=== PATIENT | male | born 1945 | race Caucasian/White ===

== ENCOUNTER 2017-12-08 10:30 | Inpatient (IN) | payer OTHER, MEDICARE ==
[~2017-12-08] VITALS: Ht 190.5 cm; Wt 90.7 kg
[2017-12-08] VITALS (13 sets, daily range): BP systolic 166–193; BP diastolic 79–102; PULSE 84–101; RESP 18–32; TEMP 97.5–97.8; O2SAT 87–100
[~2017-12-08 10:30] MED LIST: AMLO10 PO; CALC-179 PO; CALC0.25 PO; LYCOCAP2 PO; NOVO7030P2 SQ; PRAV40 PO; TAB-TAB PO
[2017-12-08] MEDS ORDERED: ALBUAER3 INH (10:54)
[2017-12-08] MEDS ORDERED: SODIUM CHLORIDE 0.9% FLUSH 10 ML FLUSH IVF PRN (11:15)
[2017-12-08] MEDS ORDERED: ADENOSINE IV SOLN 3 MG/ML 2 ML VIAL ONE (11:27)
[2017-12-08] MEDS ORDERED: ADENOSINE IV SOLN 3 MG/ML 2 ML VIAL IV PUSH ONE ×2 (11:30→11:45)
--- NOTE | 2017-12-08 11:31 | RADRPT ---
EXAM DATE: 12/08/2017 11:29 AM EDT AGE/SEX: 72 years / Male INDICATIONS: Short of breath. CLINICAL DATA: This is the patient's initial encounter. Patient reports that signs and symptoms have been present for 1 day and indicates a pain score of 0/10. MEDICAL/SURGICAL HISTORY: Chronic obstructive pulmonary disease. 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 had chest tube to drain lung in 2008 COMPARISON: No prior exams available for comparison. FINDINGS: Cardiomegaly with moderate interstitial edema. Parental changes right base that could be inflammatory or chronic. No pneumothorax no pleural effusion. CONCLUSION: Cardiomegaly with moderate congestive failure. Parenchymal changes right base of uncertain significan ce. Electronically signed by: George Kumar MD 12/08/2017 11:30 AM EDT
[2017-12-08 11:41] LABS: BASOPHIL # 0.2 TH/MM3 (0-0.2); BASOPHIL % 2.2 % (0.0-2.0); EOSINOPHIL % 0.6 % (0.0-4.0); LYMPH % 16.3 % (9.0-44.0); LYMPHOCYTE # 1.3 TH/MM3 (1.0-4.8); MEAN CELL VOLUME 86.3 FL (80.0-100.0); MEAN CORPUSCULAR HEMOGLOBIN 28.8 PG (27.0-34.0); MEAN CORPUSCULAR HGB CONC 33.3 % (32.0-36.0); MONO % 4.2 % (0.0-8.0); MONOCYTE # 0.3 TH/MM3 (0-0.9); NEUT % 76.7 % (16.0-70.0); PLATELET COUNT 221 TH/MM3 (150-450); RED BLOOD COUNT 4.52 MIL/MM3 (4.50-5.90); RED CELL DISTRIBUTION WIDTH 14.3 % (11.6-17.2); WHITE BLOOD COUNT 7.8 TH/MM3 (4.0-11.0)
[2017-12-08] MEDS ORDERED: METOPROLOL TARTRATE 5 MG/5 ML VIAL IV PUSH ONE (11:45)
[2017-12-08 11:51] LABS: INTERNATIONAL NORMALIZED RATIO 1.2 RATIO
[2017-12-08 12:14] LABS: ALBUMIN 2.8 GM/DL (3.4-5.0); ALT (GPT) 16 U/L (12-78); AST (GOT) 18 U/L (15-37); BLOOD UREA NITROGEN 55 MG/DL (7-18); CALCIUM 8.6 MG/DL (8.5-10.1); CHLORIDE 111 MEQ/L (98-107); CREATININE 7.76 MG/DL (0.60-1.30); GLOMERULAR FILTRATION RATE 7 ML/MIN (>89); GLUCOSE,RANDOM 138 MG/DL (74-106); SODIUM (NA) 142 MEQ/L (136-145)
[2017-12-08 12:18] LABS: ALKALINE PHOSPHATASE 121 U/L (45-117); TOTAL BILIRUBIN ADULT 0.6 MG/DL (0.2-1.0); TOTAL PROTEIN 7.2 GM/DL (6.4-8.2); TROPONIN I 0.03 NG/ML (0.02-0.05)
--- NOTE | 2017-12-08 12:50 | PD ---
HPI Chief Complaint: Respiratory Symptoms Time Seen by Provider: 11:05 Travel History International Travel<30 days: No Contact w/Intl Traveler<30days: No Traveled to known affect area: No History of Present Illness HPI 72-year-old male with history of COPD, renal failure, diabetes mellitus, who presented today with complaints of shortness of breath and near syncope. The patient was [facility] and was sent here for further evaluation. According to him that he has been trying to work him up for renal failure and he will likely need dialysis however they have had difficulty up to this point. The patient denies any fevers, chills. He states that at times he feels his heart racing and nearly passes out. The patient denies any chest pain , chest pressure. There are no other complaints at time of my examination. PFSH Past Medical History Hx Anticoagulant Therapy: Yes Arthritis: Yes Asthma: No Autoimmune Disease: No Blood Disorders: No Anxiety: Yes Depression: Yes Cancer: Yes (SKIN CA.-FACE & ARMS) Cardiovascular Problems: Yes High Cholesterol: Yes Chemotherapy: No Congestive Heart Failure: No COPD: Yes Cerebrovascular Accident: No Diabetes: Yes Patient Takes Glucophage: No Diminished Hearing: No Endocrine: Yes Gastrointestinal Disorders: Yes Genitourinary: Yes (HEMATURIA) Hypertension: Yes Immune Disorder: No Kidney Stones: Yes Musculoskeletal: Yes Neurologic: Yes Psychiatric: Yes Reproductive: No Respiratory: Yes Migraines: No Radiation Therapy: No Renal Failure: Yes Seizures: No Thyroid Disease: No Past Surgical History Genitourinary Surgery: Yes (RIGHT NEPHROLITHOTRIPSY) Other Surgery: Yes (L KNEE SURGERY) Social History Alcohol Use: No Tobacco Use: No Substance Use: No Allergies-Medications (Allergen,Severity, Reaction): Coded Allergies: No Known Allergies (Verified Allergy, Unknown, 12/08/17) Reported Meds & Prescriptions Reported Meds & Active Scripts Active Reported Refresh Optive Advanced Opth Drops (Ztlcimasmpiongxwa-Dqqcvcnks-Exgkxifuwqb 80) 0.5-1-0.5% Soln 1-2 Drop EACH EYE DAILY PRN Preservision Areds (Multiple Vitamins W/ Minerals) 1 Tab 1 Tab PO DAILY Aspirin 81 Mg Chew 81 Mg CHEW DAILY Furosemide 20 Mg Tab 20 Mg PO DIRECTED Amlodipine (Amlodipine Besylate) 10 Mg Tab 10 Mg PO DAILY Ergocalciferol 50,000 Unit Cap 50,000 Units PO Q7D Atorvastatin (Atorvastatin Calcium) 80 Mg Tab 80 Mg PO HS Proventil Hfa 6.7 GM Inh (Albuterol Sulfate) 90 Mcg/Act Aer 2 Puff INH Q4-6H PRN Symbicort Inh (Budesonide/Formoterol Fumarate) 160-4.5 Mcg/Act Aero 2 Puff INH Q12HR Hydralazine HCl 25 Mg Tablet 25 Mg PO BID Proair Hfa 8.5 GM Inh (Albuterol Sulfate) 90 Mcg/Act Aer 2 Puff INH Q4-6H PRN 108 mcg/actuation Review of Systems Except as stated in HPI: all other systems reviewed are Neg General / Constitutional: No: Fever, Chills HENT: Positive: Lightheadedness, No: Headaches, Neck Pain Cardiovascular: Positive: Palpitations, Tachycardia, No: Chest Pain or Discomfort Respiratory: Positive: Shortness of Breath, No: Cough Gastrointestinal: No: Nausea, Vomiting, Abdominal Pain Genitourinary: No: Dysuria, Decreased Urinary Output (Denies) Musculoskeletal: Positive: Weakness, No: Pain Neurologic: Positive: Weakness, Dizziness, No: Headache Psychiatric: No: Substance Abuse Physical Exam Narrative GENERAL: Well-developed well-nourished male in no acute respiratory distress SKIN: Focused skin assessment warm/dry. HEAD: Atraumatic. Normocephalic. EYES: Pupils equal and round. No scleral icterus. No injection or drainage. ENT: No nasal bleeding or discharge. Mucous membranes pink and moist. NECK: Trachea midline. Supple. CARDIOVASCULAR: Regular rate and rhythm. No murmur appreciated. RESPIRATORY: Mild accessory muscle use. GASTROINTESTINAL: Abdomen soft, non-tender, nondistended. No rebound or guarding. MUSCULOSKELETAL: No obvious deformities. No clubbing. No cyanosis. 1+ edema in the pretibial areas. NEUROLOGICAL: Awake and alert. No obvious cranial nerve deficits. Motor grossly within normal limits. Normal speech. Data Data Last Documented VS Vital Signs Date Time Temp Pulse Resp B/P (MAP) Pulse Ox O2 Delivery O2 Flow Rate FiO2 12/08/17 11:50 87 18 166/79 (108) 95 Nasal Cannula 4.00 12/08/17 10:35 97.8 Orders Orders Complete Blood Count With Diff (12/08/17 11:09) Comprehensive Metabolic Panel (12/08/17 11:09) B-Type Natriuretic Peptide (12/08/17 11:09) Act Partial Throm Time (Ptt) (12/08/17 11:09) Prothrombin Time / Inr (Pt) (12/08/17 11:09) Ckmb (Isoenzyme) Profile (12/08/17 11:09) Troponin I (12/08/17 11:09) Urinalysis - C+S If Indicated (12/08/17 11:09) Iv Access Insert/Monitor (12/08/17 11:09) Ecg Monitoring (12/08/17 11:09) Oximetry (12/08/17 11:09) Oxygen Administration (12/08/17 11:09) Chest, Single Ap (12/08/17 11:09) Sodium Chloride 0.9% Flush (Ns Flush) (12/08/17 11:15) Electrocardiogram (12/08/17 ) Adenosine Inj (Adenocard Inj) (12/08/17 11:27) Adenosine Inj (Adenocard Inj) (12/08/17 11:30) Adenosine Inj (Adenocard Inj) (12/08/17 11:45) Metoprolol Tartrate Inj (Lopressor Inj) (12/08/17 11:45) CKMB (12/08/17 11:20) CKMB% (12/08/17 11:20) Admit Order (Ed Use Only) (12/08/17 13:17) Labs Laboratory Tests Test 12/08/17 11:20 12/08/17 12:35 White Blood Count 7.8 TH/MM3 Red Blood Count 4.52 MIL/MM3 Hemoglobin 13.0 GM/DL Hematocrit 39.0 % Mean Corpuscular Volume 86.3 FL Mean Corpuscular Hemoglobin 28.8 PG Mean Corpuscular Hemoglobin Concent 33.3 % Red Cell Distribution Width 14.3 % Platelet Count 221 TH/MM3 Mean Platelet Volume 9.0 FL Neutrophils (%) (Auto) 76.7 % Lymphocytes (%) (Auto) 16.3 % Monocytes (%) (Auto) 4.2 % Eosinophils (%) (Auto) 0.6 % Basophils (%) (Auto) 2.2 % Neutrophils # (Auto) 6.0 TH/MM3 Lymphocytes # (Auto) 1.3 TH/MM3 Monocytes # (Auto) 0.3 TH/MM3 Eosinophils # (Auto) 0.0 TH/MM3 Basophils # (Auto) 0.2 TH/MM3 CBC Comment DIFF FINAL Differential Comment Prothrombin Time 12.0 SEC Prothromb Time International Ratio 1.2 RATIO Activated Partial Thromboplast Time 28.2 SEC Blood Urea Nitrogen 55 MG/DL Creatinine 7.76 MG/DL Random Glucose 138 MG/DL Total Protein 7.2 GM/DL Albumin 2.8 GM/DL Calcium Level 8.6 MG/DL Alkaline Phosphatase 121 U/L Aspartate Amino Transf (AST/SGOT) 18 U/L Alanine Aminotransferase (ALT/SGPT) 16 U/L Total Bilirubin 0.6 MG/DL Sodium Level 142 MEQ/L Potassium Level 5.1 MEQ/L Chloride Level 111 MEQ/L Carbon Dioxide Level 22.0 MEQ/L Anion Gap 9 MEQ/L Estimat Glomerular Filtration Rate 7 ML/MIN Total Creatine Kinase 209 U/L Creatine Kinase MB 3.5 NG/ML Troponin I 0.03 NG/ML B-Type Natriuretic Peptide 710 PG/ML Urine Color LIGHT-YELLOW Urine Turbidity CLEAR Urine pH 7.0 Urine Specific [place] 1.010 Urine Protein 300 mg/dL Urine Glucose (UA) 150 mg/dL Urine Ketones NEG mg/dL Urine Occult Blood SMALL Urine Nitrite NEG Urine Bilirubin NEG Urine Urobilinogen LESS THAN 2.0 MG/DL Urine Leukocyte Esterase NEG Urine RBC 1 /hpf Urine WBC 1 /hpf Microscopic Urinalysis Comment CULT NOT INDICATED MDM Medical Decision Making Medical Screen Exam Complete: Yes Emergency Medical Condition: Yes Differential Diagnosis CHF versus pneumonia versus renal failure versus metabolic derangement Narrative Course 9-year-old male sent from the [facility] for evaluation of his renal failure and shortness of breath. Patient has moderate CHF noted on his chest x-ray. Patient also has evidence of end-stage renal disease. He had an episode of SVT. He was given 6 mg of Adenocard followed by 12 mg of Adenocard with no results or resolution of the SVT. He was then given Lopressor 5 mg 1 dose. He did convert to normal sinus rhythm. The patient will be admitted to the hospital. Case was discussed with Dr. Andrea Wilcox who agrees with the admission. Diagnosis Primary Impression: Congestive heart failure Additional Impressions: Worsening renal failure Diabetes mellitus Supraventricular tachycardia Admitting Information Admitting Physician Requests: Admit Werner Wilson MD Dec 08, 2017 12:50
[2017-12-08 13:00] LABS: BILIRUBIN, URINE NEG (NEG); BLOOD, URINE SMALL (NEG); GLUCOSE,URINE 150 mg/dL (NEG); KETONE, URINE NEG (NEG); NITRITE,URINE NEG (NEG); URINE COLOR LIGHT-YELLOW (YELLW/STRAW); URINE LEUKOCYTE ESTERASE NEG (NEG)
[2017-12-08] MEDS ORDERED: FURO20TA PO (13:09)
[2017-12-08] MEDS ORDERED: ATOR80TA45 PO (13:09)
[2017-12-08] MEDS ORDERED: SYMB160A INH (13:09)
[2017-12-08] MEDS ORDERED: HYDR-3799 PO (13:09)
[2017-12-08] MEDS ORDERED: OCUVTAB4 PO (13:09)
[2017-12-08] MEDS ORDERED: ALBU6.7H INH (13:09)
[2017-12-08] MEDS ORDERED: VITA500012 PO (13:09)
[2017-12-08] MEDS ORDERED: AMLO10TA2 PO (13:09)
[2017-12-08] MEDS ORDERED: ASPI-516 CHEW (13:09)
[2017-12-08] MEDS ORDERED: CARBSOL EACH EYE (13:09)
[2017-12-08] MEDS ORDERED: BISACODYL 10 MG SUPP RECTAL PRN (13:30)
[2017-12-08] MEDS ORDERED: NALOXONE HCL 0.4 MG/ML AMP IV PUSH PRN (13:30)
[2017-12-08] MEDS ORDERED: cloNIDine HCL 0.1 MG TAB PO PRN ×2 (13:30→16:30)
[2017-12-08] MEDS ORDERED: DEXTROSE 50% IN WATER 50 ML VIAL(D50) IV PUSH PRN (13:30)
[2017-12-08] MEDS ORDERED: ACETAMINOPHEN 325 MG TAB PO PRN ×2 (13:30→16:30)
[2017-12-08] MEDS ORDERED: SODIUM CHLORIDE 0.9% FLUSH 10 ML FLUSH IV FLUSH PRN ×2 (13:30→16:30)
[2017-12-08] MEDS ORDERED: GLUCAGON 1 MG/ML VIAL OTHER PRN (13:30)
[2017-12-08] MEDS ORDERED: SODIUM CHLOR 0.9% 1000 ML INJ 1,000 ML IV ONE (13:30)
--- NOTE | 2017-12-08 14:00 | HHI.HP ---
HPI Service [facility] Primary Care Physician [facility] Admission Diagnosis end stage renal disease, chf, svt Diagnoses: Chief Complaint: Shortness of breath. Near syncope. Travel History International Travel<30 Days: No Contact w/Intl Traveler <30 Da: No Traveled to Known Affected Are: No History of Present Illness 9-year-old male with a medical history significant for diabetes, chronic kidney disease, hypertension, noncompliance sent to the emergency room by the CT for worsening renal function in need of dialysis. Patient is a very poor historian. His at bedside has a history of stroke with significant expressive aphasia. From what I can gather from the patient, his , and the medical records, he has had issues with noncompliance. He has not been taking any medications at home. Over the past few weeks he has been getting increasingly short of breath to the point of near syncope. He states [facility] but could not tell me the details on what has been accomplished so far. He does make a small amount of urine. In the emergency room, the patient was found to be in SVT. He has been given adenosine and metoprolol IV and have since converted back to sinus rhythm. X-ray consistent with pulmonary edema. Currently states he is mildly short of breath but denies chest pain. He states he is now willing to go through with dialysis. Review of Systems ROS Limitations: Poor Historian Constitutional: COMPLAINS OF: Fatigue, DENIES: Fever, Chills Respiratory: COMPLAINS OF: Shortness of breath Cardiovascular: COMPLAINS OF: Palpitations, DENIES: Chest pain Gastrointestinal: DENIES: Nausea, Vomiting Psychiatric: DENIES: Mood changes Except as stated in HPI: all other systems reviewed are Neg Past Family Social History Past Medical History Hypertension Diabetes Chronic kidney disease COPD Past Surgical History Right kidney lithotripsy Left knee surgery Allergies: Coded Allergies: No Known Allergies (Verified Adverse Reaction, Unknown, 12/08/17) Family History Reviewed and is noncontributory. Social History Patient is with reported exposure to agent orange. Lifelong history of tobacco abuse. Reportedly quit a few years ago. Had some relapse. No alcohol. Physical Exam Vital Signs Vital Signs Date Time Temp Pulse Resp B/P (MAP) Pulse Ox O2 Delivery O2 Flow Rate FiO2 12/08/17 11:50 87 18 166/79 (108) 95 Nasal Cannula 4.00 12/08/17 11:46 95 Nasal Cannula 4.00 12/08/17 11:46 (109) Nasal Cannula 4.00 12/08/17 10:52 97 21 167/81 (109) 96 Nasal Cannula 4.00 12/08/17 10:47 104 31 79 Room Air 12/08/17 10:35 97.8 98 32 193/87 (122) 87 Physical Exam GENERAL: Elderly and frail male in no acute distress. CARDIOVASCULAR: Normal rate and regular rhythm without murmurs, gallops, or rubs. RESPIRATORY: Good respiratory efforts. Bilateral basilar crackles. GASTROINTESTINAL: Abdomen soft, non-tender, non-distended. Normal active bowel sounds MUSCULOSKELETAL: 2+ bilateral lower extremity edema NEURO: Alert & Oriented x4 to person, place, time, situation. Moves all ext x4 PSYCH: Appropriate mood and affect. Laboratory Laboratory Tests Test 12/08/17 11:20 12/08/17 12:35 White Blood Count 7.8 Red Blood Count 4.52 Hemoglobin 13.0 Hematocrit 39.0 Mean Corpuscular Volume 86.3 Mean Corpuscular Hemoglobin 28.8 Mean Corpuscular Hemoglobin Concent 33.3 Red Cell Distribution Width 14.3 Platelet Count 221 Mean Platelet Volume 9.0 Neutrophils (%) (Auto) 76.7 Lymphocytes (%) (Auto) 16.3 Monocytes (%) (Auto) 4.2 Eosinophils (%) (Auto) 0.6 Basophils (%) (Auto) 2.2 Neutrophils # (Auto) 6.0 Lymphocytes # (Auto) 1.3 Monocytes # (Auto) 0.3 Eosinophils # (Auto) 0.0 Basophils # (Auto) 0.2 CBC Comment DIFF FINAL Differential Comment Prothrombin Time 12.0 Prothromb Time International Ratio 1.2 Activated Partial Thromboplast Time 28.2 Blood Urea Nitrogen 55 Creatinine 7.76 Random Glucose 138 Total Protein 7.2 Albumin 2.8 Calcium Level 8.6 Alkaline Phosphatase 121 Aspartate Amino Transf (AST/SGOT) 18 Alanine Aminotransferase (ALT/SGPT) 16 Total Bilirubin 0.6 Sodium Level 142 Potassium Level 5.1 Chloride Level 111 Carbon Dioxide Level 22.0 Anion Gap 9 Estimat Glomerular Filtration Rate 7 Total Creatine Kinase 209 Creatine Kinase MB 3.5 Troponin I 0.03 B-Type Natriuretic Peptide 710 Urine Color LIGHT-YELLOW Urine Turbidity CLEAR Urine pH 7.0 Urine Specific [place] 1.010 Urine Protein 300 Urine Glucose (UA) 150 Urine Ketones NEG Urine Occult Blood SMALL Urine Nitrite NEG Urine Bilirubin NEG Urine Urobilinogen LESS THAN 2.0 Urine Leukocyte Esterase NEG Urine RBC 1 Urine WBC 1 Microscopic Urinalysis Comment CULT NOT INDICATED Result Diagram: 12/08/17 1120 12/08/17 1120 Imaging Last Impressions Chest X-Ray 12/08/17 1109 Signed Impressions: CONCLUSION: Cardiomegaly with moderate congestive failure. Parenchymal changes right base o f uncertain significance. Caprini VTE Risk Assessment Caprini VTE Risk Assessment: Mod/High Risk (score >= 2) Caprini Risk Assessment Model Point Value = 1 Point Value = 2 Point Value = 3 Point Value = 5 Age 41-60 Minor surgery BMI > 25 kg/m2 Swollen legs Varicose veins or History of unexplained or recurrent spontaneous Oral contraceptives or hormone replacement Sepsis (< 1 month) Serious lung disease, including pneumonia (< 1 month) Abnormal pulmonary function Acute myocardial infarction Congestive heart failure (< 1 month) History of inflammatory bowel disease Medical patient at bed rest Age 61-74 Arthroscopic surgery Major open surgery (> 45 min) Laparoscopic surgery (> 45 min) Malignancy Confined to bed (> 72 hours) Immobilizing plaster cast Central venous access Age >= 75 History of VTE Family history of VTE Factor V Leiden Prothrombin [id number] Lupus anticoagulant Anticardiolipin antibodies Elevated serum homocysteine Heparin-induced thrombocytopenia Other congenital or acquired thrombophilia Stroke (< 1 month) Elective arthroplasty Hip, pelvis, or leg fracture Acute spinal cord injury (< 1 month) Prophylaxis Regimen Total Risk Factor Score Risk Level Prophylaxis Regimen 0-1 Low Early ambulation 2 Moderate Order ONE of the following: *Sequential Compression Device (SCD) *Heparin 5000 units SQ BID 3-4 Higher Order ONE of the following medications: *Heparin 5000 units SQ TID *Enoxaparin/Lovenox 40 mg SQ daily (WT < 150 kg, CrCl > 30 mL/min) *Enoxaparin/Lovenox 30 mg SQ daily (WT < 150 kg, CrCl > 10-29 mL/min) *Enoxaparin/Lovenox 30 mg SQ BID (WT < 150 kg, CrCl > 30 mL/min) AND/OR *Sequential Compression Device (SCD) 5 or more Highest Order ONE of the following medications: *Heparin 5000 units SQ TID (Preferred with Epidurals) *Enoxaparin/Lovenox 40 mg SQ daily (WT < 150 kg, CrCl > 30 mL/min) *Enoxaparin/Lovenox 30 mg SQ daily (WT < 150 kg, CrCl > 10-29 mL/min) *Enoxaparin/Lovenox 30 mg SQ BID (WT < 150 kg, CrCl > 30 mL/min) AND *Sequential Compression Device (SCD) Assessment and Plan Problem List: (1) Acute on chronic renal failure ICD Code: N17.9 - Acute kidney failure, unspecified; N18.9 - Chronic kidney disease, unspecified Plan: Nonoliguric. Last documented creatinine was around 2. Patient presented with creatinine of [address] Reportedly has been getting set up for dialysis outpatient. - Consult nephrology. Likely will need dialysis. Currently does not have access. (2) SVT (supraventricular tachycardia) ICD Code: I47.1 - Supraventricular tachycardia Plan: Could be related to pulmonary edema. Patient denies any history of arrhythmia. Cardiac enzymes negative. No acute ST changes on EKG. Status post adenosine and metoprolol in the ED. Consult cardiology. Meanwhile we will continue with metoprolol 25 mg every 8 hours. Follow on telemetry. (3) HTN (hypertension) ICD Code: I10 - Essential (primary) hypertension Status: Acute Plan: Continue amlodipine. (4) Respiratory failure, acute ICD Code: J96.00 - Acute respiratory failure, unspecified whether with hypoxia or hypercapnia Plan: Secondary to pulmonary edema fluid overload state. In addition to COPD Probably need dialysis as above. Continue supplemental oxygen. Continue Symbicort (5) DM (diabetes mellitus) ICD Code: E11.9 - Type 2 diabetes mellitus without complications Status: Acute Plan: Reportedly has been managed with diet. Last documented hemoglobin A1c a few years ago was around 16. Sliding scale insulin with Accu-Cheks. Check hemoglobin A1c Assessment and Plan Admit to ICU. Discussed Condition With Dr. Wilson. Physician Certification 2 Midnight Certification Type: Admission for Inpatient Services Order for Inpatient Services The services are ordered in accordance with Medicare regulations or non- Medicare payer requirements, as applicable. In the case of services not specified as inpatient-only, they are appropriately provided as inpatient services in accordance with the 2-midnight benchmark. Estimated LOS (days): 5 days is the estimated time the patient will need to remain in the hospital, assuming treatment plan goals are met and no additional complications. Post-Hospital Plan: Not yet determined Problem Qualifiers (1) Respiratory failure, acute: Qualified Codes: J96.01 - Acute respiratory failure with hypoxia Alverto Wilcox MD Dec 08, 2017 14:00
--- NOTE | 2017-12-08 14:19 | EKG ---
Date Performed: 12/08/2017 Time Performed: 11:25:52 PTAGE: 72 years EKG: SUPRAVENTRICULAR TACHYCARDIA NONSPECIFIC ST & T-WAVE ABNORMALITY ABNORMAL ECG Compared to p rior electrocardiogram, Supraventricular tachycardia is now present . DOCTOR: Celestine Wade Interpretating Date/Time 12/08/2017 14:18:09
--- NOTE | 2017-12-08 14:57 | EKG ---
Date Performed: 12/08/2017 Time Performed: 10:51:41 PTAGE: 72 years EKG: Sinus rhythm POSSIBLE LEFT ATRIAL ENLARGEMENT BORDERLINE LEFT AXIS DEVIATION POSSIBLE RIGHT VENTRICULAR CONDUCTIO N DELAY NONSPECIFIC T-WAVE ABNORMALITY BORDERLINE ECG Since the PREVIOUS TRACING , no significant change noted PREVIOUS TRACING; 07/06/2015 @15.28 DOCTOR: Leroy Waters Interpretating Date/Time 12/08/2017 14:53:10
[2017-12-08] MEDS ORDERED: ONDANSETRON ODT 4 MG TAB PO PRN (16:00)
[2017-12-08] MEDS: METOPROLOL TARTRATE 25 MG TAB PO SCH ×2 (16:24→22:02)
[2017-12-08] MEDS: HEPARIN SODIUM - SQ 10,000 UNITS/ML VIAL SQ SCH (16:25)
[2017-12-08] MEDS ORDERED: SODIUM CHLOR 0.9% 1000 ML INJ 1,000 ML OTHER PRN ×2 (16:27)
[2017-12-08] MEDS ORDERED: SODIUM CHLOR 0.9% 1000 ML INJ 1,000 ML IV PRN (16:27)
[2017-12-08] MEDS ORDERED: MANNITOL 12.5 GM/50 ML VIAL IV PRN (16:30)
[2017-12-08] MEDS ORDERED: GELATIN 12 MM/7 MM FOAM TOP PRN (16:30)
[2017-12-08] MEDS ORDERED: HEPARIN SODIUM - IV 10,000 UNITS/10 ML VIAL IV FLUSH PRN (16:30)
[2017-12-08] MEDS ORDERED: NITROGLYCERIN 0.4 MG SL 25 TABS/BTL SL PRN (16:30)
[2017-12-08] MEDS ORDERED: diphenhydrAMINE HCL 25 MG CAP PO PRN (16:30)
[2017-12-08] MEDS ORDERED: ONDANSETRON HCL 4 MG/2 ML VIAL IV PUSH PRN (16:30)
--- NOTE | 2017-12-08 16:44 | PD.CONS ---
[facility] Service Nephrology Consult Requested By Reason for Consult Possible ESRD Primary Care Physician [facility] History of Present Illness Mr. Constantino is a 72 year old male with history of CKD. He has been seeing a corporate administrator at [facility] in [place], apparently they were trying to make dialysis arrangements locally. He has not seen any corporate administrator locally for several years. Patient was told to come to the ER by the [facility]. Patient has been progressively short of breath and also was having dizziness when he was lying down. In addition, the patient experienced palpitations yesterday. In the ER, he was noted to be in SVT, given adenosine, and metoprolol, and converted to NSR. He is non oliguric. Complains of fatigue and weakness. His BUN was 55 and creatinine 7.7. Serum potassium was 5.1. 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 He was placed on CellCept, but the patient was not compliant. He has been non compliant and has not taken his medications on a regular basis. Patient's serologies were negative in 2008. Review of Systems Constitutional: COMPLAINS OF: Fatigue, Weight loss, DENIES: Fever Cardiovascular: COMPLAINS OF: Palpitations, Syncope, Dyspnea on Exertion, PND, Orthopnea, DENIES: Chest pain, Lower Extremity Edema Gastrointestinal: DENIES: Abdominal pain, Black stools, Bloody stools Musculoskeletal: DENIES: Joint pain, Muscle aches Neurologic: COMPLAINS OF: Abnormal gait Psychiatric: DENIES: Anxiety, Hallucinations Past Family Social History Allergies: Coded Allergies: No Known Allergies (Verified Allergy, Unknown, 12/08/17) Past Medical History Hypertension Diabetes type 2 Chronic kidney disease COPD Past Surgical History Right kidney lithotripsy Left knee surgery Reported Medications Refresh Optive Advanced Opth Drops (Cokqyliuiuscaznvo-Ggyhdnviv-Dweosfabaaa 80) 0.5-1-0.5% Soln 1-2 Drop EACH EYE DAILY PRN Preservision Areds (Multiple Vitamins W/ Minerals) 1 Tab 1 Tab PO DAILY Aspirin 81 Mg Chew 81 Mg CHEW DAILY Furosemide 20 Mg Tab 20 Mg PO DIRECTED Amlodipine (Amlodipine Besylate) 10 Mg Tab 10 Mg PO DAILY Ergocalciferol 50,000 Unit Cap 50,000 Units PO Q7D Atorvastatin (Atorvastatin Calcium) 80 Mg Tab 80 Mg PO HS Proventil Hfa 6.7 GM Inh (Albuterol Sulfate) 90 Mcg/Act Aer 2 Puff INH Q4-6H PRN Symbicort Inh (Budesonide/Formoterol Fumarate) 160-4.5 Mcg/Act Aero 2 Puff INH Q12HR Hydralazine HCl 25 Mg Tablet 25 Mg PO BID Proair Hfa 8.5 GM Inh (Albuterol Sulfate) 90 Mcg/Act Aer 2 Puff INH Q4-6H PRN 108 mcg/actuation Active Ordered Medications Current Medications Medications (Trade) Dose Ordered Sig/Edgar Route Start Time Stop Time Status Last Admin (NS Flush) 2 ml UNSCH PRN IV FLUSH 12/08/17 13:30 (NS Flush) 2 ml BID IV FLUSH 12/08/17 21:00 (Tylenol) 650 mg Q4H PRN PO 12/08/17 13:30 (Zofran Odt) 4 mg Q6H PRN PO 12/08/17 16:00 (Heparin Inj) 5,000 units Q12H SQ 12/08/17 16:00 (Narcan Inj) 0.4 mg UNSCH PRN IV PUSH 12/08/17 13:30 (Milk Of Magnesia Liq) 30 ml Q12H PRN PO 12/08/17 13:30 (Senokot) 17.2 mg Q12H PRN PO 12/08/17 13:30 (Dulcolax Supp) 10 mg DAILY PRN RECTAL 12/08/17 13:30 (Lactulose Liq) 30 ml DAILY PRN PO 12/08/17 13:30 (D50w (Vial) Inj) 50 ml UNSCH PRN IV PUSH 12/08/17 13:30 (Glucagon Inj) 1 mg UNSCH PRN OTHER 12/08/17 13:30 (NovoLOG SUPPLEMENTAL SCALE) 1 ACHS SLIDING SCALE SQ 12/08/17 17:00 (Lopressor) 25 mg Q8HR PO 12/08/17 16:00 (Norvasc) 10 mg DAILY PO 12/09/17 09:00 (Aspirin Chew) 81 mg DAILY CHEW 12/09/17 09:00 (Lipitor) 80 mg HS PO 12/08/17 21:00 (Symbicort 160-4.5 Mcg Inh) 2 puff Q12HR INH 12/08/17 21:00 (Catapres) 0.1 mg Q6H PRN PO 12/08/17 13:30 Family History Reviewed and is noncontributory. Social History He is . He is a . Former smoker. No ETOH. Reports of exposure to agent [place] as a result of which he apparently has weakness in the lower extremities. Physical Exam Vital Signs Vital Signs Date Time Temp Pulse Resp B/P (MAP) Pulse Ox O2 Delivery O2 Flow Rate FiO2 12/08/17 14:06 84 20 166/82 (110) 94 2.00 12/08/17 11:50 87 18 166/79 (108) 95 Nasal Cannula 4.00 12/08/17 11:46 95 Nasal Cannula 4.00 12/08/17 11:46 (109) Nasal Cannula 4.00 12/08/17 10:52 97 21 167/81 (109) 96 Nasal Cannula 4.00 12/08/17 10:47 104 31 79 Room Air 12/08/17 10:35 97.8 98 32 193/87 (122) 87 Physical Exam GENERAL: Frail, elderly male. SKIN: Warm and dry. HEAD: Normocephalic. EYES: No scleral icterus. No injection or drainage. NECK: Supple, trachea midline. No JVD or lymphadenopathy. CARDIOVASCULAR: Regular rate and rhythm without murmurs, gallops, or rubs. RESPIRATORY: bilateral wheezing and rhonchi GASTROINTESTINAL: Abdomen soft, non-tender, nondistended. MUSCULOSKELETAL: No cyanosis, or edema. BACK: Nontender without obvious deformity. No CVA tenderness. Laboratory Laboratory Tests Test 12/08/17 11:20 12/08/17 12:35 White Blood Count 7.8 Red Blood Count 4.52 Hemoglobin 13.0 Hematocrit 39.0 Mean Corpuscular Volume 86.3 Mean Corpuscular Hemoglobin 28.8 Mean Corpuscular Hemoglobin Concent 33.3 Red Cell Distribution Width 14.3 Platelet Count 221 Mean Platelet Volume 9.0 Neutrophils (%) (Auto) 76.7 Lymphocytes (%) (Auto) 16.3 Monocytes (%) (Auto) 4.2 Eosinophils (%) (Auto) 0.6 Basophils (%) (Auto) 2.2 Neutrophils # (Auto) 6.0 Lymphocytes # (Auto) 1.3 Monocytes # (Auto) 0.3 Eosinophils # (Auto) 0.0 Basophils # (Auto) 0.2 CBC Comment DIFF FINAL Differential Comment Prothrombin Time 12.0 Prothromb Time International Ratio 1.2 Activated Partial Thromboplast Time 28.2 Blood Urea Nitrogen 55 Creatinine 7.76 Random Glucose 138 Total Protein 7.2 Albumin 2.8 Calcium Level 8.6 Alkaline Phosphatase 121 Aspartate Amino Transf (AST/SGOT) 18 Alanine Aminotransferase (ALT/SGPT) 16 Total Bilirubin 0.6 Sodium Level 142 Potassium Level 5.1 Chloride Level 111 Carbon Dioxide Level 22.0 Anion Gap 9 Estimat Glomerular Filtration Rate 7 Total Creatine Kinase 209 Creatine Kinase MB 3.5 Troponin I 0.03 B-Type Natriuretic Peptide 710 Urine Color LIGHT-YELLOW Urine Turbidity CLEAR Urine pH 7.0 Urine Specific [place] 1.010 Urine Protein 300 Urine Glucose (UA) 150 Urine Ketones NEG Urine Occult Blood SMALL Urine Nitrite NEG Urine Bilirubin NEG Urine Urobilinogen LESS THAN 2.0 Urine Leukocyte Esterase NEG Urine RBC 1 Urine WBC 1 Microscopic Urinalysis Comment CULT NOT INDICATED Result Diagram: 12/08/17 1120 12/08/17 1120 Assessment and Plan Problem List: (1) Chronic kidney disease, stage 5 ICD Codes: N18.5 - Chronic kidney disease, stage 5 Plan: patient likely has reached ESRD. He presents with pulmonary edema, likely due to advanced renal dysfunction and fluid retention. I will attempt diuresis today: I have ordered Lasix 80 mg IV Q 12 hours. Repeat labs tomorrow. I have requested radiology consult for PermCath placement for tomorrow. Restart Aspirin after the procedure. I will obtain renal US because of his history of renal stones. Avoid Gadolinium. Carefully monitor fluid and electrolyte status. Obtain vein mapping. If we initiate dialysis during this admission, it is preferable to have AVF placed before discharge. (2) HTN (hypertension) ICD Codes: I10 - Essential (primary) hypertension Status: Acute Plan: BP is currently high, monitor. Restart medications. If we start dialysis , discontinue Metoprolol and start Carvedilol or Labetalol. (3) Diabetes mellitus ICD Codes: E11.9 - Type 2 diabetes mellitus without complications Status: Acute Plan: insulin coverage to maintain blood glucose between 140 and 180 (4) Supraventricular tachycardia ICD Codes: I47.1 - Supraventricular tachycardia Status: Acute Plan: converted to NSR. Consider cardiology evaluation. Consider echocardiogram. Assessment and Plan Detailed discussion with the patient and his . They are in agreement of the proposed plan. All questions were answered. Thanks for the consult. Eduardo Salvador MD Dec 08, 2017 16:44
[2017-12-08] MEDS: INSULIN ASPART SUPPLEMENTAL SCALE SQ SCH ×2 (17:00→21:00)
[2017-12-08 17:23] LABS: HEMOGLOBIN A1C 5.8 % (4.3-6.0)
[2017-12-08] MEDS: FUROSEMIDE 40 MG/4 ML VIAL IV PUSH SCH (17:41)
--- NOTE | 2017-12-08 18:40 | RADRPT ---
EXAM DATE: 12/08/2017 6:33 PM EDT AGE/SEX: 72 years / Male INDICATIONS: Increased BUN and Creatinine. CLINICAL DATA: This is the patient's initial encounter. Patient reports that signs and symptoms have been present for 1 day and indicates a pain score of 0/10. MEDICAL/SURGICAL HISTORY: Hypercholesterolemia. Hypertension. Chronic obstructive pulmonary d isease. Renal failure. Hematuria. Renal stones. Lithotripsy. COMPARISON: No prior exams available for comparison. MEASUREMENTS: Right Kidney:__14.7 x 5.9 x 6.4 cm cm Left Kidney:__14.3 x x 8.6 cm cm FINDINGS: There is no hydronephrosis. No definite solid mass is identified. No definite stone is identified f or technique. The bladder is grossly intact for technique and not completely distended during the exa m.The IVC and aorta are grossly unremarkable. Multiple simple cysts are present in both kidneys the l argest measures 2.6 cm on the right and 3.1 cm on the left. CONCLUSION: Multiple simple cysts in both kidneys. Electronically signed by: Jocelyn Han MD 12/08/2017 6:39 PM EDT
--- NOTE | 2017-12-08 19:38 | PD.CONS ---
[facility] Service Critical Care Medicine Consult Requested By Primary Care Physician [facility] History of Present Illness 72-year-old male with a diabetes, chronic kidney disease, hypertension, presents for worsening renal function in need of dialysis. Patient is a very poor historian. He has not been taking any medications at home. Over the past few weeks he has been getting increasingly short of breath to the point of near syncope. He is still making urine, at the time of my evaluation he was straight cathed with 400 cc of urine output at that time. In the emergency room , the patient was found to be in SVT. He has been given adenosine and metoprolol IV and have since converted back to sinus rhythm. X-ray consistent with pulmonary edema. He was initially admitted to medicine service on the medical floor, however his respiratory failure worsened over the time requiring emergent placement of hemodialysis catheter and urgent hemodialysis tonight in the ICU. Review of Systems ROS Unable to obtain due to patient's respiratory distress. Past Family Social History Allergies: Coded Allergies: No Known Allergies (Verified Allergy, Unknown, 12/08/17) Past Medical History Hypertension Diabetes Chronic kidney disease COPD Past Surgical History Right kidney lithotripsy Left knee surgery Reported Medications Reported Meds & Active Scripts Active Reported Refresh Optive Advanced Opth Drops (Spfcjdhboqobcdprj-Qptfvdpxp-Dhmgflpuvkk 80) 0.5-1-0.5% Soln 1-2 Drop EACH EYE DAILY PRN Preservision Areds (Multiple Vitamins W/ Minerals) 1 Tab 1 Tab PO DAILY Aspirin 81 Mg Chew 81 Mg CHEW DAILY Furosemide 20 Mg Tab 20 Mg PO DIRECTED Amlodipine (Amlodipine Besylate) 10 Mg Tab 10 Mg PO DAILY Ergocalciferol 50,000 Unit Cap 50,000 Units PO Q7D Atorvastatin (Atorvastatin Calcium) 80 Mg Tab 80 Mg PO HS Proventil Hfa 6.7 GM Inh (Albuterol Sulfate) 90 Mcg/Act Aer 2 Puff INH Q4-6H PRN Symbicort Inh (Budesonide/Formoterol Fumarate) 160-4.5 Mcg/Act Aero 2 Puff INH Q12HR Hydralazine HCl 25 Mg Tablet 25 Mg PO BID Proair Hfa 8.5 GM Inh (Albuterol Sulfate) 90 Mcg/Act Aer 2 Puff INH Q4-6H PRN 108 mcg/actuation Active Ordered Medications Current Medications Medications (Trade) Dose Ordered Sig/Edgar Route PRN Reason Start Time Stop Time Status Last Admin Dose Admin Sodium Chloride (NS Flush) 2 ml UNSCH PRN IV FLUSH FLUSH AFTER USING IV ACCESS 12/08/17 13:30 Sodium Chloride (NS Flush) 2 ml BID IV FLUSH 12/08/17 21:00 Acetaminophen (Tylenol) 650 mg Q4H PRN PO TEMP > 100.4 12/08/17 13:30 Ondansetron HCl (Zofran Odt) 4 mg Q6H PRN PO NAUSEA OR VOMITING 12/08/17 16:00 Heparin Sodium (Porcine) (Heparin Inj) 5,000 units Q12H SQ 12/08/17 16:00 12/08/17 16:25 Naloxone HCl (Narcan Inj) 0.4 mg UNSCH PRN IV PUSH SEE LABEL COMMENTS 12/08/17 13:30 Magnesium Hydroxide (Milk Of Magnesia Liq) 30 ml Q12H PRN PO Mild constipation 12/08/17 13:30 Sennosides (Senokot) 17.2 mg Q12H PRN PO Moderate constipation 12/08/17 13:30 Bisacodyl (Dulcolax Supp) 10 mg DAILY PRN RECTAL SEVERE CONSITIPATION 12/08/17 13:30 Lactulose (Lactulose Liq) 30 ml DAILY PRN PO SEVERE CONSITIPATION 12/08/17 13:30 Dextrose (D50w (Vial) Inj) 50 ml UNSCH PRN IV PUSH HYPOGLYCEMIA-SEE COMMENTS 12/08/17 13:30 Glucagon (Glucagon Inj) 1 mg UNSCH PRN OTHER HYPOGLYCEMIA-SEE COMMENTS 12/08/17 13:30 Insulin Aspart (NovoLOG SUPPLEMENTAL SCALE) 1 ACHS SLIDING SCALE SQ 12/08/17 17:00 Metoprolol Tartrate (Lopressor) 25 mg Q8HR PO 12/08/17 16:00 12/08/17 16:24 Amlodipine Besylate (Norvasc) 10 mg DAILY PO 12/09/17 09:00 Atorvastatin Calcium (Lipitor) 80 mg HS PO 12/08/17 21:00 Budesonide/ Formoterol Fumarate (Symbicort 160-4.5 Mcg Inh) 2 puff Q12HR INH 12/08/17 21:00 Clonidine (Catapres) 0.1 mg Q6H PRN PO SBP> OR = 180, DBP> OR = 100 12/08/17 13:30 Furosemide (Lasix Inj) 80 mg BID@,18 IV PUSH 12/08/17 18:00 12/08/17 17:41 Sodium Chloride 1,000 ml @ 0 mls/hr Q0M PRN OTHER For Prime & Rinse Back 12/08/17 16:27 Heparin Sodium (Porcine) (Heparin Inj) 8,000 units UNSCH PRN IV FLUSH WITH DIALYSIS 12/08/17 16:30 Sodium Chloride 1,000 ml @ 200 mls/hr Q5H PRN IV WITH DIALYSIS 12/08/17 16:27 Sodium Chloride 1,000 ml @ 0 mls/hr Q0M PRN OTHER WITH DIALYSIS 12/08/17 16:27 Mannitol (Mannitol Inj) 12.5 gm UNSCH PRN IV WITH DIALYSIS 12/08/17 16:30 Albumin Human 100 ml @ 60 mls/hr UNSCH PRN IV WITH DIALYSIS 12/08/17 16:30 Sodium Chloride (NS Flush) 5 ml UNSCH PRN IV FLUSH WITH DIALYSIS 12/08/17 16:30 Heparin Sodium (Porcine) (Heparin Inj) UNSCH PRN .XX WITH DIALYSIS 12/08/17 16:30 Gentamicin Sulfate (Gentamicin Inj) 20 mg UNSCH PRN OTHER WITH DIALYSIS 12/08/17 16:30 Ondansetron HCl (Zofran Inj) 4 mg UNSCH PRN IV PUSH WITH DIALYSIS 12/08/17 16:30 Acetaminophen (Tylenol) 650 mg UNSCH PRN PO for headach, pain, temp > 101F 12/08/17 16:30 Diphenhydramine HCl (Benadryl) 25 mg UNSCH PRN PO for hives/itching/anaphylaxis 12/08/17 16:30 Nitroglycerin (Nitrostat Sl) 0.4 mg UNSCH PRN SL CHEST PAIN 12/08/17 16:30 Clonidine (Catapres) 0.1 mg UNSCH PRN PO for BP > 180/100 X 2 readings 12/08/17 16:30 Gelatin (Gelfoam 12 Mm/7 Mm Top) 1 foam UNSCH PRN TOP SEE LABEL COMMENTS 12/08/17 16:30 Family History No family history significant of early coronary artery disease Social History Patient is with reported exposure to agent orange. Lifelong history of tobacco abuse. Reportedly quit a few years ago. Had some relapse. No alcohol. Physical Exam Vital Signs Vital Signs Date Time Temp Pulse Resp B/P (MAP) Pulse Ox O2 Delivery O2 Flow Rate FiO2 12/08/17 18:51 88 12/08/17 17:51 94 Nasal Cannula 4.00 12/08/17 17:00 97.7 101 20 186/102 (130) 94 12/08/17 16:39 92 Nasal Cannula 3.00 12/08/17 16:23 91 20 170/81 (110) 92 Nasal Cannula 2.00 12/08/17 14:06 84 20 166/82 (110) 94 2.00 12/08/17 11:50 87 18 166/79 (108) 95 Nasal Cannula 4.00 12/08/17 11:46 95 Nasal Cannula 4.00 12/08/17 11:46 (109) Nasal Cannula 4.00 12/08/17 10:52 97 21 167/81 (109) 96 Nasal Cannula 4.00 12/08/17 10:47 104 31 79 Room Air 12/08/17 10:35 97.8 98 32 193/87 (122) 87 Physical Exam GENERAL: Elderly appearing gentleman in moderate respiratory distress on 100% facemask nonrebreather SKIN: Warm and dry. HEAD: Normocephalic. EYES: No scleral icterus. No injection or drainage. NECK: Supple, trachea midline. No JVD or lymphadenopathy. CARDIOVASCULAR: Regular rate and rhythm without murmurs, gallops, or rubs. RESPIRATORY: Breath sounds equal bilaterally. Some accessory muscle use. Fine rhonchi bilaterally as well as crackles. GASTROINTESTINAL: Abdomen soft, non-tender, nondistended. MUSCULOSKELETAL: No cyanosis, or edema. BACK: Nontender without obvious deformity. NEURO EXAM: GCS: 15 Mental Status: The patient is alert and oriented to person, place, and time with normal speech. Laboratory Laboratory Tests Test 12/08/17 11:20 12/08/17 12:35 White Blood Count 7.8 Red Blood Count 4.52 Hemoglobin 13.0 Hematocrit 39.0 Mean Corpuscular Volume 86.3 Mean Corpuscular Hemoglobin 28.8 Mean Corpuscular Hemoglobin Concent 33.3 Red Cell Distribution Width 14.3 Platelet Count 221 Mean Platelet Volume 9.0 Neutrophils (%) (Auto) 76.7 Lymphocytes (%) (Auto) 16.3 Monocytes (%) (Auto) 4.2 Eosinophils (%) (Auto) 0.6 Basophils (%) (Auto) 2.2 Neutrophils # (Auto) 6.0 Lymphocytes # (Auto) 1.3 Monocytes # (Auto) 0.3 Eosinophils # (Auto) 0.0 Basophils # (Auto) 0.2 CBC Comment DIFF FINAL Differential Comment Prothrombin Time 12.0 Prothromb Time International Ratio 1.2 Activated Partial Thromboplast Time 28.2 Blood Urea Nitrogen 55 Creatinine 7.76 Random Glucose 138 Total Protein 7.2 Albumin 2.8 Calcium Level 8.6 Alkaline Phosphatase 121 Aspartate Amino Transf (AST/SGOT) 18 Alanine Aminotransferase (ALT/SGPT) 16 Total Bilirubin 0.6 Sodium Level 142 Potassium Level 5.1 Chloride Level 111 Carbon Dioxide Level 22.0 Anion Gap 9 Estimat Glomerular Filtration Rate 7 Total Creatine Kinase 209 Creatine Kinase MB 3.5 Troponin I 0.03 B-Type Natriuretic Peptide 710 Urine Color LIGHT-YELLOW Urine Turbidity CLEAR Urine pH 7.0 Urine Specific [place] 1.010 Urine Protein 300 Urine Glucose (UA) 150 Urine Ketones NEG Urine Occult Blood SMALL Urine Nitrite NEG Urine Bilirubin NEG Urine Urobilinogen LESS THAN 2.0 Urine Leukocyte Esterase NEG Urine RBC 1 Urine WBC 1 Microscopic Urinalysis Comment CULT NOT INDICATED Result Diagram: 12/08/17 1120 12/08/17 1120 Imaging Last 24 hours Impressions Chest X-Ray 12/08/17 1109 Signed Impressions: CONCLUSION: Cardiomegaly with moderate congestive failure. Parenchymal changes right base o f uncertain significance. Renal Ultrasound 12/08/17 0000 Signed Impressions: CONCLUSION: Multiple simple cysts in both kidneys. Chest X-Ray 12/08/17 0000 Signed Impressions: CONCLUSION: Slight worsening pulmonary edema. Assessment and Plan Assessment and Plan Respiratory failure -Fluid overload -IV Lasix -Emergent hemodialysis per nephrology COPD -DuoNeb scheduled and as needed -Budesonide/ Formoterol Fumarate End-stage renal disease -Emergent hemodialysis catheter placement -HD per nephrology Diabetes -Insulin sliding scale -1 800 ADA diet Hypertension -Metoprolol -Clonidine -Norvasc DVT GI prophylaxis -James's and SCDs -Subcu heparin -1 800 ADA Critical Care: The total critical care time was 35 minutes. Time to perform other separately billable procedures was not included in the critical care time. Tirso Lazar MD Dec 08, 2017 7:38 pm
--- NOTE | 2017-12-08 20:01 | MB ---
cc: Roshan Zapata MD DATE: 12/08/2017 REASON FOR CONSULTATION: Evaluation of SVT. HISTORY OF PRESENT ILLNESS: Angel Constantino is a 72-year-old man who has approached end-stage renal disease. He has not been started on dialysis yet. Plan is to have a vascath in the morning. At time I am seeing him, he is sitting bolt upright in bed. He has got rales half the way up and he is not able to speak in complete sentences. I have spoken to Dr. Salvador about getting him transferred to ICU or initiating dialysis tonight. The patient is able to tell me for the past month, he has intermittent episodes of rapid heartbeat. It will usually go away if he stops and rests for about 10 minutes. He has had an episode in the ER that was converted, not with adenosine, but with 5 of Lopressor. Denies any chest pain at the current time. He does have chronic kidney disease, hypertension, diabetes, COPD and quit smoking about 10 years ago. PAST SURGICAL HISTORY: Includes right kidney lithotripsy, left knee surgery. ALLERGIES: NONE KNOWN. FAMILY HISTORY: Noncontributory. SOCIAL HISTORY: He says he quit smoking 10 years ago. He is . PHYSICAL EXAMINATION: GENERAL: Shows well-developed, well-nourished man. He is tachypneic and using accessory muscles. He is in mild respiratory distress. HEENT: Unremarkable. NECK: Shows increased central venous pressure. CHEST: Shows rales senior care up. CARDIAC: S1, S2. Regular rate and rhythm, with a 1-2/6 systolic ejection murmur. ABDOMEN: Soft. EXTREMITIES: Reveal 1-2+ edema. NEUROLOGIC: He is alert and oriented. LABORATORY DATA: Hematocrit is 39. Troponin 0.03. BNP is 7/10. IMAGING: Chest x-ray showing interstitial edema. ECHOCARDIOGRAM: Showed SVT at 11:25 a.m., a rate of 166 beats per minute with ST depression. EKG from 10:51 showed sinus rhythm. IMPRESSION: Intermittent supraventricular tachycardia in the setting of end-stage renal disease, pulmonary edema from volume overload, end-stage renal disease. RECOMMENDATIONS: I think we will need to be dialyzed tonight. I do not think he can last until morning. I have conveyed this. Dr. Salvador is going to get the professor of physical education involved. Regarding the SVT, we will have to see how this stabilizes once he has been dialyzed. If the SVT continues, he will need to be referred to my partner, Dr. Guy for ablation. For now, we will discontinue the metoprolol. Further therapy to be determined. MD EYAL Cardoso/GIRMA , 06:58 PM , 08:00 PM
[2017-12-08] MEDS: BUDESONIDE-FORMOTEROL 160/4.5 MCG INHALER INH SCH (21:00)
[2017-12-08] MEDS: SODIUM CHLORIDE 0.9% FLUSH 10 ML FLUSH IV FLUSH SCH (21:00)
--- NOTE | 2017-12-08 21:41 | RADRPT ---
EXAM DATE: 12/08/2017 9:38 PM EDT AGE/SEX: 72 years / Male INDICATIONS: Post central line placement. CLINICAL DATA: This is the patient's subsequent encounter. Patient reports that signs and symptoms h ave been present for 1 day and indicates a pain score of 6/10. MEDICAL/SURGICAL HISTORY: . Hypercholesterolemia. Hypertension. Chronic obstructive pulmonary d isease,Renal failure. Hematuria. Renal stones . Lithotripsy. COMPARISON: [facility], CHEST SINGLE AP, 12/08/2017. . FINDINGS: Right IJ line is present with tip overlapping the expected region of the SVC. There is slight worseni ng of pulmonary edema since the prior exam. Small right pleural effusion is suspected. There are no o ther changes. CONCLUSION: Slight worsening pulmonary edema. Electronically signed by: Jocelyn Han MD 12/08/2017 9:40 PM EDT
[2017-12-08] MEDS: ATORVASTATIN 80 MG TAB PO SCH (22:02)
[2017-12-08] MEDS ORDERED: CHLORHEXIDINE GLUCONATE 2 % 1 PACK (2 CLOTHS)(extra cloths) TOPICAL PRN (22:45)
[2017-12-08] MEDS: GENTAMICIN SULFATE 20 MG/2 ML VIAL OTHER PRN (23:12)
[2017-12-08] MEDS: HEPARIN SODIUM - IV 10,000 UNITS/10 ML VIAL PRN (23:13)
--- NOTE | 2017-12-08 23:43 | PD.PROCEDR ---
Procedure Note Procedure Hemodialysis catheter placement A time-out was completed verifying correct patient, procedure, site, positioning , and special equipment if applicable. The patient was placed in a dependent position appropriate for central line placement based on the vein to be cannulated. The patients right neck was prepped and draped in sterile fashion. 1% Lidocaine was used to anesthetize the surrounding skin area. A double-lumen hemodialysis catheter was introduced into the the internal jugular vein using the Seldinger technique and under ultrasound guidance. The catheter was threaded smoothly over the guide wire and appropriate blood return was obtained. Each lumen of the catheter was evacuated of air and flushed with sterile saline. The catheter was then sutured in place to the skin and a sterile dressing applied. Perfusion to the extremity distal to the point of catheter insertion was checked and found to be adequate. Estimated Blood Loss: 1ml The patient tolerated the procedure well and there were no complications. Tirso Lazar MD Dec 08, 2017 11:43 pm
[2017-12-09] VITALS (20 sets, daily range): BP systolic 110–134; BP diastolic 54–67; PULSE 64–82; RESP 14–25; TEMP 97.6–98.6; O2SAT 92–99
[2017-12-09 02:21] LABS: BILIRUBIN, URINE NEG (NEG); BLOOD, URINE SMALL (NEG); GLUCOSE,URINE 70 mg/dL (NEG); KETONE, URINE NEG (NEG); NITRITE,URINE NEG (NEG); SQUAMOUS EPITHELIAL CELL URINE <1 /hpf (0-5); URINE COLOR LIGHT-YELLOW (YELLW/STRAW); URINE LEUKOCYTE ESTERASE NEG (NEG)
[2017-12-09] MEDS: CHLORHEXIDINE GLUCONATE 2 % 1 PACK (2 CLOTHS)(taper/protocol) TOPICAL SCH (03:09)
[2017-12-09] MEDS: METOPROLOL TARTRATE 25 MG TAB PO SCH ×3 (04:50→21:49)
[2017-12-09] MEDS: HEPARIN SODIUM - SQ 10,000 UNITS/ML VIAL SQ SCH (04:50)
[2017-12-09 06:14] LABS: AUTOMATED NEUTROPHIL # 7.2 TH/MM3 (1.8-7.7); BASOPHIL # 0.1 TH/MM3 (0-0.2); BASOPHIL % 0.8 % (0.0-2.0); EOSINOPHIL % 0.1 % (0.0-4.0); HEMATOCRIT 38.4 % (39.0-51.0); HEMOGLOBIN 12.7 GM/DL (13.0-17.0); LYMPH % 12.9 % (9.0-44.0); LYMPHOCYTE # 1.2 TH/MM3 (1.0-4.8); MEAN CORPUSCULAR HEMOGLOBIN 28.4 PG (27.0-34.0); MEAN PLATELET VOLUME 9.3 FL (7.0-11.0); MONO % 6.1 % (0.0-8.0); MONOCYTE # 0.5 TH/MM3 (0-0.9); NEUT % 80.1 % (16.0-70.0); PLATELET COUNT 204 TH/MM3 (150-450); RED BLOOD COUNT 4.46 MIL/MM3 (4.50-5.90); RED CELL DISTRIBUTION WIDTH 14.2 % (11.6-17.2)
[2017-12-09 06:36] LABS: ALBUMIN 2.7 GM/DL (3.4-5.0); ALT (GPT) 17 U/L (12-78); AST (GOT) 17 U/L (15-37); BICARBONATE 22.9 MEQ/L (21.0-32.0); BLOOD UREA NITROGEN 42 MG/DL (7-18); CALCIUM 8.2 MG/DL (8.5-10.1); CHLORIDE 107 MEQ/L (98-107); CREATININE 6.27 MG/DL (0.60-1.30); GLOMERULAR FILTRATION RATE 9 ML/MIN (>89); GLUCOSE,RANDOM 95 MG/DL (74-106); MAGNESIUM 1.8 MG/DL (1.5-2.5); PHOSPHORUS 3.6 MG/DL (2.5-4.9); SODIUM (NA) 141 MEQ/L (136-145)
[2017-12-09 06:39] LABS: ALKALINE PHOSPHATASE 117 U/L (45-117); TOTAL BILIRUBIN ADULT 0.9 MG/DL (0.2-1.0); TOTAL PROTEIN 6.9 GM/DL (6.4-8.2)
[2017-12-09] MEDS: INSULIN ASPART SUPPLEMENTAL SCALE SQ SCH ×4 (08:00→21:49)
[2017-12-09] MEDS: FUROSEMIDE 40 MG/4 ML VIAL IV PUSH SCH ×2 (08:15→16:22)
[2017-12-09] MEDS: BUDESONIDE-FORMOTEROL 160/4.5 MCG INHALER INH SCH ×2 (08:21→21:00)
[2017-12-09] MEDS: SODIUM CHLORIDE 0.9% FLUSH 10 ML FLUSH IV FLUSH SCH ×2 (08:21→21:00)
[2017-12-09] MEDS ORDERED: VANCOMYCIN INJ 1,000 MG in SODIUM CHLOR 0.9% 250 ML INJ 250 ML IV SCH (08:30)
[2017-12-09] MEDS ORDERED: ceFAZolin 2 GM PREMIX 50 ML IV SCH (08:30)
[2017-12-09] MEDS ORDERED: ASPIRIN 81 MG CHEW TAB CHEW SCH (09:00)
--- NOTE | 2017-12-09 09:36 | HHI.PR ---
Subjective Remarks Patient underwent emergent hemodialysis last night. States he is feeling much better this morning. Objective Vitals Vital Signs Date Time Temp Pulse Resp B/P (MAP) Pulse Ox O2 Delivery O2 Flow Rate FiO2 12/09/17 08:00 66 12/09/17 08:00 97.6 66 19 126/63 (84) 98 12/09/17 08:00 99 Non-Rebreather 15.00 12/09/17 06:00 65 12/09/17 04:00 75 12/09/17 04:00 98.1 75 21 132/61 (84) 99 12/09/17 02:00 75 12/09/17 00:35 98 Venturi Mask 6.00 50 12/09/17 00:00 76 12/09/17 00:00 98.1 76 25 110/59 (76) 98 12/08/17 22:00 93 12/08/17 21:56 91 28 184/94 (124) 88 12/08/17 21:30 95 Non-Rebreather 15.00 12/08/17 21:00 97.5 91 29 172/87 (115) 100 12/08/17 21:00 88 Venturi Mask 6.00 50 12/08/17 20:55 99 Non-Rebreather 15.00 100 12/08/17 20:38 99 Non-Rebreather 15.00 100 12/08/17 20:00 98 12/08/17 19:30 Nasal Cannula 5.50 12/08/17 18:51 88 12/08/17 17:51 94 Nasal Cannula 4.00 12/08/17 17:00 97.7 101 20 186/102 (130) 94 12/08/17 16:39 92 Nasal Cannula 3.00 12/08/17 16:23 91 20 170/81 (110) 92 Nasal Cannula 2.00 12/08/17 14:06 84 20 166/82 (110) 94 2.00 12/08/17 11:50 87 18 166/79 (108) 95 Nasal Cannula 4.00 12/08/17 11:46 95 Nasal Cannula 4.00 12/08/17 11:46 (109) Nasal Cannula 4.00 12/08/17 10:52 97 21 167/81 (109) 96 Nasal Cannula 4.00 12/08/17 10:47 104 31 79 Room Air 12/08/17 10:35 97.8 98 32 193/87 (892) 87 I/O 12/08/17 12/08/17 12/08/17 12/09/17 12/09/17 12/09/17 07:00 15:00 23:00 07:00 15:00 23:00 Intake Total 120 ml 1000 ml 120 ml Output Total 550 ml 3600 ml Balance 120 ml 450 ml -3480 ml Intake Oral 120 ml 120 ml IV Total 1000 ml Output Urine Total 550 ml 600 ml Hemodialysis 3000 ml # Voids 1 # Bowel Movements 0 Result Diagram: 12/09/17 0359 12/09/17 0357 Imaging Last Impressions Chest X-Ray 12/08/17 1109 Signed Impressions: CONCLUSION: Cardiomegaly with moderate congestive failure. Parenchymal changes right base o f uncertain significance. Renal Ultrasound 12/08/17 0000 Signed Impressions: CONCLUSION: Multiple simple cysts in both kidneys. Objective Remarks GENERAL: This is a well-nourished, well-developed patient, in no apparent distress. CARDIOVASCULAR: Normal rate and regular rhythm without murmurs, gallops, or rubs. RESPIRATORY: Good respiratory efforts. Bilateral basilar crackles. Otherwise clear to auscultation and the rest of the lung rosenbaum. GASTROINTESTINAL: Abdomen soft, non-tender, non-distended. Normal active bowel sounds MUSCULOSKELETAL: Trace bilateral lower extremity edema NEURO: Alert & Oriented x4 to person, place, time, situation. Moves all ext x4 PSYCH: Appropriate mood and affect. A/P Problem List: (1) Acute on chronic renal failure ICD Code: N17.9 - Acute kidney failure, unspecified; N18.9 - Chronic kidney disease, unspecified Plan: Nonoliguric. Last documented creatinine was around 2. [facility] Reportedly has been getting set up for dialysis outpatient. -Appreciate nephrology input. Status post emergent dialysis overnight. Will need to continue dialysis. - Vascular surgery consulted for AV fistula - PermCath to be placed today. Repeat dialysis today. (2) SVT (supraventricular tachycardia) ICD Code: I47.1 - Supraventricular tachycardia Plan: Could be related to pulmonary edema. Patient denies any history of arrhythmia. Cardiac enzymes negative. No acute ST changes on EKG. Status post adenosine and metoprolol in the ED. Appreciate cardiology input. Continue metoprolol. Follow on telemetry. (3) HTN (hypertension) ICD Code: I10 - Essential (primary) hypertension Status: Acute Plan: Continue amlodipine. (4) Respiratory failure, acute ICD Code: J96.00 - Acute respiratory failure, unspecified whether with hypoxia or hypercapnia Plan: Secondary to pulmonary edema fluid overload state. In addition to COPD Improved with dialysis. Continue supplemental oxygen. Continue Symbicort (5) DM (diabetes mellitus) ICD Code: E11.9 - Type 2 diabetes mellitus without complications Status: Acute Plan: Reportedly has been managed with diet. Last documented hemoglobin A1c a few years ago was around 16. Sliding scale insulin with Accu-Cheks. Repeat A1c is 5.8. It appears this is controlled on diet per the patient. Problem Qualifiers (1) Respiratory failure, acute: Qualified Codes: J96.01 - Acute respiratory failure with hypoxia Alverto Wilcox MD Dec 09, 2017 09:35
--- NOTE | 2017-12-09 10:05 | HHI.NPPN ---
Subjective Renal Failure: Chronic, Stage V Interval History Transfer[place] [facility] [place] due to [place] distress. Vascath was placed, had HD with 3L fluid removal. He looks and feels much better. Due for Permcath exchange this afternoon. (Jyoti Ceron) Objective Data Data Vital Signs Date Time Temp Pulse Resp B/P (MAP) Pulse Ox O2 Delivery O2 Flow Rate FiO2 12/09/17 09:35 92 Venturi Mask 6.00 50 12/09/17 08:00 66 12/09/17 08:00 97.6 66 19 126/63 (84) 98 12/09/17 08:00 99 Non-Rebreather 15.00 12/09/17 06:00 65 12/09/17 04:00 75 12/09/17 04:00 98.1 75 21 132/61 (84) 99 12/09/17 02:00 75 12/09/17 00:35 98 Venturi Mask 6.00 50 12/09/17 00:00 76 12/09/17 00:00 98.1 76 25 110/59 (76) 98 12/08/17 22:00 93 12/08/17 21:56 91 28 184/94 (124) 88 12/08/17 21:30 95 Non-Rebreather 15.00 12/08/17 21:00 97.5 91 29 172/87 (115) 100 12/08/17 21:00 88 Venturi Mask 6.00 50 12/08/17 20:55 99 Non-Rebreather 15.00 100 12/08/17 20:38 99 Non-Rebreather 15.00 100 12/08/17 20:00 98 12/08/17 19:30 Nasal Cannula 5.50 12/08/17 18:51 88 12/08/17 17:51 94 Nasal Cannula 4.00 12/08/17 17:00 97.7 101 20 186/102 (130) 94 12/08/17 16:39 92 Nasal Cannula 3.00 12/08/17 16:23 91 20 170/81 (110) 92 Nasal Cannula 2.00 12/08/17 14:06 84 20 166/82 (110) 94 2.00 12/08/17 11:50 87 18 166/79 (108) 95 Nasal Cannula 4.00 12/08/17 11:46 95 Nasal Cannula 4.00 12/08/17 11:46 (109) Nasal Cannula 4.00 12/08/17 10:52 97 21 167/81 (109) 96 Nasal Cannula 4.00 12/08/17 10:47 104 31 79 Room Air 12/08/17 10:35 97.8 98 32 193/87 (122) 87 (Jyoti Ceron) -: 12/09/17 0359 12/09/17 0357 Imaging Last 72 hours Impressions Chest X-Ray 12/08/17 1109 Signed Impressions: CONCLUSION: Cardiomegaly with moderate congestive failure. Parenchymal changes right base o f uncertain significance. Renal Ultrasound 12/08/17 0000 Signed Impressions: CONCLUSION: Multiple simple cysts in both kidneys. Chest X-Ray 12/08/17 0000 Signed Impressions: CONCLUSION: Slight worsening pulmonary edema. Tubes & Lines: Vas-Cath, [place] (Jyoti Ceron) Physical Exam General Appearance: Well Developed, Well Nourished, Comfortable (Jyoti Ceron) Eyes Eye Exam: Pupils Equal, Pupils Reactive (Jyoti Ceron) Throat Throat Exam: Oral Mucosa Ferney & Moist (Jyoti Ceron) Pulmonary Resp Exam: Breath Sounds Equal, No Distress, Crackles (Jyoti Ceron) Cardiology CV Exam: Regular, Normal Sinus Rhythm, Good Perfusion (Jyoti Ceron) Gastrointestinal/Abdomen GI Exam: Soft, Non-Tender, Bowel Sounds Present (Jyoti Ceron) Musculoskeletal MS Exam: Joints Intact, Normal Gait, Normal Tone (Jyoti Ceron) Integumentary Skin Exam: Warm, Dry, Intact (Jyoti Ceron) Extremeties Extremities Exam: No Edema, Pedal Pulses Palpable (Jyoti Ceron) Neurologic Neuro Exam: Alert, Awake, Oriented, Speech Clear, Moving All Extremities (Jyoti Ceron) Psychiatric Psych Exam: Appropriate Responses (Jyoti Ceron) Assessment/Plan Discussed Condition With: Patient Assessment Summary: Fluid/Volume Overload, Hypertension, End Stage Renal Disease Problem List: (1) Chronic kidney disease, stage 5 ICD Codes: N18.5 - Chronic kidney disease, stage 5 Plan: He has reached ESRD Had vas cath placement and urgent HD overnight, 3L UF, tolerated well Due for Perm cath exchange today, HD later today Then proceed with HD three times weekly Plans for outpatient HD in process. He would like to go to [facility] Renal US negative Avoid Gadolinium. Carefully monitor fluid and electrolyte status. Repeat labs in AM. Ordered vein mapping. Consult vascular surgery, it is preferable to have AVF placed before discharge. (2) HTN (hypertension) ICD Codes: I10 - Essential (primary) hypertension Status: Acute Plan: BP control is better after HD On amlodipine, change Metoprolol to Carvedilol (3) Diabetes mellitus ICD Codes: E11.9 - Type 2 diabetes mellitus without complications Status: Acute Plan: insulin coverage to maintain blood glucose between 140 and 180 (4) Supraventricular tachycardia ICD Codes: I47.1 - Supraventricular tachycardia Status: Acute Plan: converted to NSR. Cardiology has evaluated (Jyoti Ceron) Problem List: (1) Chronic kidney disease, stage 5 ICD Codes: N18.5 - Chronic kidney disease, stage 5 Plan: He has reached ESRD Had vas cath placement and urgent HD overnight, 3L UF, tolerated well Due for Perm cath exchange today, HD later today Then proceed with HD three times weekly Plans for outpatient HD in process. He would like to go to [facility] Renal US negative Avoid Gadolinium. Carefully monitor fluid and electrolyte status. Repeat labs in AM. Ordered vein mapping. Consult vascular surgery, it is preferable to have AVF placed before discharge. (2) HTN (hypertension) ICD Codes: I10 - Essential (primary) hypertension Status: Acute Plan: BP control is better after HD On amlodipine, change Metoprolol to Carvedilol (3) Diabetes mellitus ICD Codes: E11.9 - Type 2 diabetes mellitus without complications Status: Acute Plan: insulin coverage to maintain blood glucose between 140 and 180 (4) Supraventricular tachycardia ICD Codes: I47.1 - Supraventricular tachycardia Status: Acute Plan: converted to NSR. Cardiology has evaluated Plan patient was seen and examined. Emergently dialyzed yesterday because of pulmonary edema. Dialysis again today. PermCath placement and vascular surgery consult. (Eduardo Salvador MD) Jyoti Ceron Dec 09, 2017 10:05 Eduardo Salvador MD Dec 09, 2017 11:34
[2017-12-09] MEDS: ACETAMINOPHEN/HYDROcodone 325 MG/5 MG TAB PO PRN ×2 (12:27→21:07)
--- NOTE | 2017-12-09 13:03 | PD.VS.CON ---
History of Present Illness Chief Complaint: AVF Access Consult Requested by: History of Present Illness 72M with a PMH of CKD (V), DM, HTN, Hyperlipidemia and SVT Pt recently started HD Pt right handed No prior hx of access attempts Palpable R/L radial pulses noted (Lizz Puente) Past/Family/Social History Past Medical History DM CKD (V) Hyperlipidemia HTN SVT Past Surgical History Left Knee Back surgery R/L cataract Social History Smoking Hx- Quit 10 years ago Denied ETOH Denied Illicit Drug Usage Lives and takes care of his (Hx of stroke) Has three children 2 sons 1 daughter Retired [employer] (Lizz Puente) Home Medications Reported Medications Mtqhankwreracaaoj-Gxvkefrkz-Boiulcjakef 80 (Refresh Optive Advanced Opth Drops) 0.5-1-0.5% Soln, 1-2 DROP EACH EYE DAILY Y for DRY EYE, #1 BOTTLE 0 Refills 12/08/17 Multiple Vitamins W/ Minerals (Preservision Areds) 1 Tab, 1 TAB PO DAILY for Nutritional Supplement, TAB 0 Refills 12/08/17 Aspirin (Aspirin) 81 Mg Chew, 81 MG CHEW DAILY, TAB 0 Refills 12/08/17 Furosemide (Furosemide) 20 Mg Tab, 20 MG PO DIRECTED, #30 TAB 0 Refills 12/08/17 Amlodipine (Amlodipine) 10 Mg Tab, 10 MG PO DAILY for Blood Pressure Management , #30 TAB 0 Refills 12/08/17 Ergocalciferol (Ergocalciferol) 50,000 Unit Cap, 51288 UNITS PO Q7D for Nutritional Supplement, #30 CAP 0 Refills 12/08/17 Atorvastatin (Atorvastatin) 80 Mg Tab, 80 MG PO HS for Cholesterol Management, # 30 TAB 0 Refills 12/08/17 Albuterol 6.7 GM Inh (Proventil Hfa 6.7 GM Inh) 90 Mcg/Act Aer, 2 PUFF INH Q4- 6H Y for SHORTNESS OF BREATH, #1 INHALER 0 Refills 12/08/17 Budesonide-Formoterol Inh (Symbicort Inh) 160-4.5 Mcg/Act Aero, 2 PUFF INH Q12HR , #1 INHALER 0 Refills 12/08/17 Hydralazine HCl (Hydralazine HCl) 25 Mg Tablet, 25 MG PO BID for Blood Pressure Management, #60 TAB 0 Refills 12/08/17 Albuterol 8.5 GM Inh (Proair Hfa 8.5 GM Inh) 90 Mcg/Act Aer, 2 PUFF INH Q4-6H Y for SHORTNESS OF BREATH, #1 INHALER 0 Refills 108 mcg/actuation 12/08/17 Coded Allergies: No Known Allergies (Verified Allergy, Unknown, 12/08/17) Review of Systems Constitutional: DENIES: Fever, Chills Respiratory: DENIES: Shortness of breath Cardiovascular: DENIES: Chest pain (Lizz Puente) Physical Exam Vitals/I&O Date Time Temp Pulse Resp B/P (MAP) Pulse Ox O2 Delivery O2 Flow Rate FiO2 12/09/17 12:00 70 12/09/17 10:00 68 12/09/17 09:35 92 Venturi Mask 6.00 50 12/09/17 09:00 92 Nasal Cannula 5.00 12/09/17 08:00 66 12/09/17 08:00 97.6 66 19 126/63 (84) 98 12/09/17 08:00 99 Non-Rebreather 15.00 12/09/17 06:00 65 12/09/17 04:00 75 12/09/17 04:00 98.1 75 21 132/61 (84) 99 12/09/17 02:00 75 12/09/17 00:35 98 Venturi Mask 6.00 50 12/09/17 00:00 76 12/09/17 00:00 98.1 76 25 110/59 (76) 98 12/08/17 22:00 93 12/08/17 21:56 91 28 184/94 (124) 88 12/08/17 21:30 95 Non-Rebreather 15.00 12/08/17 21:00 97.5 91 29 172/87 (115) 100 12/08/17 21:00 88 Venturi Mask 6.00 50 12/08/17 20:55 99 Non-Rebreather 15.00 100 12/08/17 20:38 99 Non-Rebreather 15.00 100 12/08/17 20:00 98 12/08/17 19:30 Nasal Cannula 5.50 12/08/17 18:51 88 12/08/17 17:51 94 Nasal Cannula 4.00 12/08/17 17:00 97.7 101 20 186/102 (130) 94 12/08/17 16:39 92 Nasal Cannula 3.00 12/08/17 16:23 91 20 170/81 (110) 92 Nasal Cannula 2.00 12/08/17 14:06 84 20 166/82 (110) 94 2.00 12/09/17 12/09/17 12/09/17 07:00 15:00 23:00 Intake Total 120 ml Output Total 3600 ml Balance -3480 ml Neuro: GCS 15 Speech clear CN 2-12 intact HEENT: CHAVA Neck: No JVD Heart: RRR Lungs: CTA Vascular: Palpable R/L radial pulses Extremities: UE 5/5 (Kwame,Lizz Priscilla LOG DECKMAN) Laboratory Tests Test 12/08/17 12:35 12/08/17 20:20 12/08/17 21:30 12/09/17 03:57 Urine Color LIGHT-YELLOW LIGHT-YELLOW Urine Turbidity CLEAR HAZY Urine pH 7.0 6.0 Urine Specific [place] 1.010 1.011 Urine Protein 300 300 Urine Glucose (UA) 150 70 Urine Ketones NEG NEG Urine Occult Blood SMALL SMALL Urine Nitrite NEG NEG Urine Bilirubin NEG NEG Urine Urobilinogen LESS THAN 2.0 LESS THAN 2.0 Urine Leukocyte Esterase NEG NEG Urine RBC 1 5 Urine WBC 1 6 Microscopic Urinalysis Comment CULT NOT INDICATED CATH-CULT NOT IND Nasal Screen MRSA (PCR) MRSA NOT DETECTED Urine Squamous Epithelial Cells <1 Blood Urea Nitrogen 42 Creatinine 6.27 Random Glucose 95 Total Protein 6.9 Albumin 2.7 Calcium Level 8.2 Phosphorus Level 3.6 Magnesium Level 1.8 Alkaline Phosphatase 117 Aspartate Amino Transf (AST/SGOT) 17 Alanine Aminotransferase (ALT/SGPT) 17 Total Bilirubin 0.9 Sodium Level 141 Potassium Level 4.3 Chloride Level 107 Carbon Dioxide Level 22.9 Anion Gap 11 Estimat Glomerular Filtration Rate 9 Test 12/09/17 03:59 White Blood Count 9.0 Red Blood Count 4.46 Hemoglobin 12.7 Hematocrit 38.4 Mean Corpuscular Volume 86.0 Mean Corpuscular Hemoglobin 28.4 Mean Corpuscular Hemoglobin Concent 33.0 Red Cell Distribution Width 14.2 Platelet Count 204 Mean Platelet Volume 9.3 Neutrophils (%) (Auto) 80.1 Lymphocytes (%) (Auto) 12.9 Monocytes (%) (Auto) 6.1 Eosinophils (%) (Auto) 0.1 Basophils (%) (Auto) 0.8 Neutrophils # (Auto) 7.2 Lymphocytes # (Auto) 1.2 Monocytes # (Auto) 0.5 Eosinophils # (Auto) 0.0 Basophils # (Auto) 0.1 CBC Comment DIFF FINAL Differential Comment Hepatitis B Surface Antigen NONREACTIVE Hepatitis C IgG Antibody NONREACTIVE Last 48 hours Impressions Chest X-Ray 12/08/17 1109 Signed Impressions: CONCLUSION: Cardiomegaly with moderate congestive failure. Parenchymal changes right base o f uncertain significance. Renal Ultrasound 12/08/17 0000 Signed Impressions: CONCLUSION: Multiple simple cysts in both kidneys. Chest X-Ray 12/08/17 0000 Signed Impressions: CONCLUSION: Slight worsening pulmonary edema. (Lizz Puente) Assessment and Plan Assessment: (1) CKD (chronic kidney disease) Status: Acute (2) Chronic kidney disease, stage 5 Plan 72/M recently started HD in need of HD access No prior hx of access attempts Pt right handed Plan Discussed and reviewed AVF access w/ pt Questions answered Arranged out pt follow up in [facility]W Lizz Puente [employer]OUN[employer]OL[employer] [facility] [phone] Discharge Planning Arranged out pt f/u Pt made aware of plan (Lizz Puente) Plan 72 yo male ex [employer] who is R handed. New onset HD, now with tunneled catheter. Plan out patient f/u with AVF planning/ Pt agrees. (Andres Hutson MD) Problem Qualifiers (1) CKD (chronic kidney disease): Qualified Codes: N18.6 - End stage renal disease; Z99.2 - Dependence on renal dialysis Lizz Puente Dec 09, 2017 13:03 Andres Hutson MD Dec 10, 2017 07:22
[2017-12-09] MEDS ORDERED: MIDAZOLAM HCL 2 MG/2 ML VIAL ONE (14:34)
[2017-12-09] MEDS ORDERED: LIDOCAINE 1%/EPINEPHrine 1:100,000 SOLN 20 ML VIAL ONE (14:51)
--- NOTE | 2017-12-09 14:55 | HHI.CCPN ---
Subjective Remarks/Hospital Course 72-year-old male with a diabetes, chronic kidney disease, hypertension, presents for worsening renal function in need of dialysis. Patient is a very poor historian. He has not been taking any medications at home. Over the past few weeks he has been getting increasingly short of breath to the point of near syncope. He is still making urine, at the time of my evaluation he was straight cathed with 400 cc of urine output at that time. In the emergency room , the patient was found to be in SVT. He has been given adenosine and metoprolol IV and have since converted back to sinus rhythm. X-ray consistent with pulmonary edema. He was initially admitted to medicine service on the medical floor, however his respiratory failure worsened over the time requiring emergent placement of hemodialysis catheter and urgent hemodialysis tonight in the ICU. Subjective: Objective Vital Signs Date Time Temp Pulse Resp B/P (MAP) Pulse Ox O2 Delivery O2 Flow Rate FiO2 12/09/17 14:00 70 12/09/17 12:00 98.3 22 124/67 (86) 92 12/09/17 09:35 Venturi Mask 6.00 50 Intake and Output 12/09/17 12/09/17 12/09/17 07:59 15:59 23:59 Intake Total 120 ml Output Total 600 ml Balance -480 ml Result Diagram: 12/09/17 0359 12/09/17 0357 Imaging Last 24 hours Impressions Chest X-Ray 12/08/17 1109 Signed Impressions: CONCLUSION: Cardiomegaly with moderate congestive failure. Parenchymal changes right base o f uncertain significance. Renal Ultrasound 12/08/17 0000 Signed Impressions: CONCLUSION: Multiple simple cysts in both kidneys. Chest X-Ray 12/08/17 0000 Signed Impressions: CONCLUSION: Slight worsening pulmonary edema. Objective Remarks GENERAL: Elderly appearing gentleman in moderate respiratory distress on 100% facemask nonrebreather SKIN: Warm and dry. HEAD: Normocephalic. EYES: No scleral icterus. No injection or drainage. NECK: Supple, trachea midline. No JVD or lymphadenopathy. CARDIOVASCULAR: Regular rate and rhythm without murmurs, gallops, or rubs. RESPIRATORY: Breath sounds equal bilaterally. Some accessory muscle use. Fine rhonchi bilaterally as well as crackles. GASTROINTESTINAL: Abdomen soft, non-tender, nondistended. MUSCULOSKELETAL: No cyanosis, or edema. BACK: Nontender without obvious deformity. NEURO EXAM: GCS: 15 Mental Status: The patient is alert and oriented to person, place, and time with normal speech. A/P Assessment and Plan Respiratory failure -Fluid overload -IV Lasix -Emergent hemodialysis per nephrology COPD -DuoNeb scheduled and as needed -Budesonide/ Formoterol Fumarate End-stage renal disease -Emergent hemodialysis catheter placement -HD per nephrology Diabetes -Insulin sliding scale -1 800 ADA diet Hypertension -Metoprolol -Clonidine -Norvasc DVT GI prophylaxis -James's and SCDs -Subcu heparin -1 800 ADA Critical Care: The total critical care time was 35 minutes. Time to perform other separately billable procedures was not included in the critical care time. Marjan Macdonald MD Dec 09, 2017 14:54
--- NOTE | 2017-12-09 15:25 | PD.RAD ---
Post Procedure Progress Note Pre Procedure Diagnosis: (1) Acute on chronic renal failure Post Procedure Diagnosis: (1) Acute on chronic renal failure Procedure Date: Dec 09, 2017 Supervising Radiologist: Fortunato Kumar Estimated blood loss: 3cc Anesthesia: Local, Conscious Sedation Plan of Activity Patient to Unit: Nursing Unit Patient Condition: Fair Additional Comments: PermCath placed via the right IJ. catheter in good position OK for use See PACS Report for procedural detail/treatment Fortunato Kumar MD Dec 09, 2017 15:25
[2017-12-09] MEDS ORDERED: HEPARIN SODIUM - IV 2,000 UNITS/2 ML VIAL IV FLUSH PRN (15:30)
[2017-12-09] MEDS ORDERED: SODIUM CHLORIDE 0.9% FLUSH 10 ML FLUSH IV FLUSH PRN (15:30)
[2017-12-09] MEDS: HEPARIN SODIUM - IV 10,000 UNITS/10 ML VIAL PRN (15:35)
[2017-12-09] MEDS: GENTAMICIN SULFATE 20 MG/2 ML VIAL OTHER PRN (15:35)
--- NOTE | 2017-12-09 16:02 | RADRPT ---
EXAM DATE: 12/09/2017 3:55 PM EDT AGE/SEX: 72 years / Male INDICATIONS: Patient with history of chronic kidney disease in need of tunneled dialysis catheter pl acement. CLINICAL DATA: This is the patient's initial encounter. Patient reports that signs and symptoms have been present for 1 day and indicates a pain score of 4/10. MEDICAL/SURGICAL HISTORY: Diabetes. Hypertension. CK. Right kidney lithotripsy. Left knee surg mey COMPARISON: No prior exams available for comparison. FLUORO TIME (min): 0.5 IMAGE SERIES: 1 ACCESS SITE: SEDATION TIME (min): 30 MEDICATION(S): 1mg midazolam (Versed) IV 50mcg fentanyl (Sublimaze) IV Prophylactic antibiotics were administered with appropriate pre-procedure timing. Vancomycin within 2 hrs of procedure, Ancef (or alternative) within 1 hr of procedure. DEVICE(S): [id number] Perm-cath . . PROCEDURE: 1. Ultrasound-guided venipuncture. 2. PermaCath placement. 3. Conscious sedation with continuous EKG and oximetry monitoring. The risks, benefits and alternatives to the procedure were explained and verbal and written consent w as obtained. The site was prepped in sterile fashion. Full sterile technique was used, including ca p, mask, sterile gloves and gown and a large sterile sheet. Hand hygiene and 2% chlorhexidine and/or betadine/alcohol prep was utilized per protocol for cutaneous antisepsis. Sterile gel and sterile p robe cover were utilized for ultrasound guidance. The skin and subcutaneous tissues were infiltrated with local anesthetic solution. With ultrasound and fluoroscopic guidance a dermatotomy was created over the right internal jugular v ein. A micropuncture set was used to access the targeted vein and serial dilatation was performed to accept the prescribed length catheter. A subcutaneous tunnel was created in a retrograde fashion th e catheter was pulled through the tunnel. The catheter was flushed and assembled and locked with hep taylor. The catheter was sutured in place. Conscious sedation was performed with the prescribed dosages and duration as above in the presence of an independent trained radiology nurse to assist in the monitoring of the patient. EKG and oximetry remained stable throughout the procedure. The patient tolerated the procedure well and there were n o complications. The patient was sent to post anesthesia recovery in stable condition. CONCLUSION: 1. Uncomplicated PermaCath placement as above. Electronically signed by: Fortunato Kumar MD 12/09/2017 4:01 PM EDT
--- NOTE | 2017-12-09 16:07 | RADRPT ---
EXAM DATE: 12/09/2017 3:48 PM EDT AGE/SEX: 72 years / Male INDICATIONS: Patient with history of chronic kidney disease in need of non tunnelled dialysis cathet er removal. CLINICAL DATA: This is the patient's initial encounter. Patient reports that signs and symptoms have been present for 1 day and indicates a pain score of 4/10. MEDICAL/SURGICAL HISTORY: Diabetes. Hypertension. Chronic obstructive pulmonary disease. CKD . Right kidney lithotripsy. Left knee surgery COMPARISON: No prior exams available for comparison. IMAGE SERIES: 0 DEVICE(S): PROCEDURE: 1. Temporary central venous catheter removal. The prescribed catheter was removed intact and hemostasis was achieved with direct pressure. The sit e was dressed appropriately. The patient tolerated the procedure well. CONCLUSION: 1. Uncomplicated catheter removal. Electronically signed by: Fortunato Kumar MD 12/09/2017 4:06 PM EDT
--- NOTE | 2017-12-09 19:20 | PD.CARD.PN ---
Subjective Subjective Remarks feeling tremendously better Objective Medications Current Medications Medications (Trade) Dose Ordered Sig/Edgar Route Start Time Stop Time Status Last Admin (NS Flush) 2 ml UNSCH PRN IV FLUSH 12/08/17 13:30 (NS Flush) 2 ml BID IV FLUSH 12/08/17 21:00 12/09/17 08:21 (Tylenol) 650 mg Q4H PRN PO 12/08/17 13:30 (Zofran Odt) 4 mg Q6H PRN PO 12/08/17 16:00 (Heparin Inj) 5,000 units Q12H SQ 12/08/17 16:00 Future Hold 12/09/17 04:50 (Narcan Inj) 0.4 mg UNSCH PRN IV PUSH 12/08/17 13:30 (Milk Of Magnesia Liq) 30 ml Q12H PRN PO 12/08/17 13:30 (Senokot) 17.2 mg Q12H PRN PO 12/08/17 13:30 (Dulcolax Supp) 10 mg DAILY PRN RECTAL 12/08/17 13:30 (Lactulose Liq) 30 ml DAILY PRN PO 12/08/17 13:30 (D50w (Vial) Inj) 50 ml UNSCH PRN IV PUSH 12/08/17 13:30 (Glucagon Inj) 1 mg UNSCH PRN OTHER 12/08/17 13:30 (NovoLOG SUPPLEMENTAL SCALE) 1 ACHS SLIDING SCALE SQ 12/08/17 17:00 (Lopressor) 25 mg Q8HR PO 12/08/17 16:00 12/09/17 04:50 (Norvasc) 10 mg DAILY PO 12/09/17 09:00 12/09/17 08:15 (Lipitor) 80 mg HS PO 12/08/17 21:00 12/08/17 22:02 (Symbicort 160-4.5 Mcg Inh) 2 puff Q12HR INH 12/08/17 21:00 (Catapres) 0.1 mg Q6H PRN PO 12/08/17 13:30 12/08/17 23:12 (Lasix Inj) 80 mg BID@,18 IV PUSH 12/08/17 18:00 12/09/17 16:22 Sodium Chloride 1,000 ml @ 0 mls/hr Q0M PRN OTHER 12/08/17 16:27 (Heparin Inj) 8,000 units UNSCH PRN IV FLUSH 12/08/17 16:30 Sodium Chloride 1,000 ml @ 200 mls/hr Q5H PRN IV 12/08/17 16:27 Sodium Chloride 1,000 ml @ 0 mls/hr Q0M PRN OTHER 12/08/17 16:27 (Mannitol Inj) 12.5 gm UNSCH PRN IV 12/08/17 16:30 Albumin Human 100 ml @ 60 mls/hr UNSCH PRN IV 12/08/17 16:30 (NS Flush) 5 ml UNSCH PRN IV FLUSH 12/08/17 16:30 (Heparin Inj) UNSCH PRN .XX 12/08/17 16:30 12/09/17 15:35 (Gentamicin Inj) 20 mg UNSCH PRN OTHER 12/08/17 16:30 12/09/17 15:35 (Zofran Inj) 4 mg UNSCH PRN IV PUSH 12/08/17 16:30 (Tylenol) 650 mg UNSCH PRN PO 12/08/17 16:30 12/09/17 08:21 (Benadryl) 25 mg UNSCH PRN PO 12/08/17 16:30 (Nitrostat Sl) 0.4 mg UNSCH PRN SL 12/08/17 16:30 (Catapres) 0.1 mg UNSCH PRN PO 12/08/17 16:30 (Gelfoam 12 Mm/7 Mm Top) 1 foam UNSCH PRN TOP 12/08/17 16:30 ([facility] Nursing Information) Patient in critical care unit? Ass... Q361D .XX 12/08/17 22:45 12/08/17 22:45 (Chlorhexidine 2% Cloth) 3 pack DAILY@04 TOPICAL 12/09/17 04:00 12/13/17 04:01 12/09/17 03:09 (Chlorhexidine 2% Cloth) 3 pack UNSCH PRN TOPICAL 12/08/17 22:45 12/13/17 22:38 Vancomycin HCl 1000 mg/Sodium Chloride 250 ml @ 250 mls/hr EDUCATIONAL COORDINATOR IV 12/09/17 08:30 12/12/17 08:29 12/09/17 13:40 Cefazolin Sodium/ Dextrose 50 ml @ 100 mls/hr EDUCATIONAL COORDINATOR IV 12/09/17 08:30 12/12/17 08:29 12/09/17 15:03 ([place] 5-325 Mg) 1 tab Q6H PRN PO 12/09/17 09:45 12/09/17 12:27 (NS Flush) UNSCH PRN IV FLUSH 12/09/17 15:30 (Heparin Inj) UNSCH PRN IV FLUSH 12/09/17 15:30 Vital Signs / I&O Vital Signs Date Time Temp Pulse Resp B/P (MAP) Pulse Ox O2 Delivery O2 Flow Rate FiO2 12/09/17 18:00 71 12/09/17 17:38 67 22 110/54 (72) 99 12/09/17 17:15 68 21 118/61 (80) 94 12/09/17 17:00 70 19 110/54 (72) 96 12/09/17 16:45 73 24 134/60 (84) 96 12/09/17 16:30 72 22 119/59 (79) 98 12/09/17 16:21 70 14 119/56 (77) 98 12/09/17 16:21 70 12/09/17 16:00 98.6 64 16 110/54 (72) 96 12/09/17 14:00 70 12/09/17 12:00 70 12/09/17 12:00 98.3 70 22 124/67 (86) 92 12/09/17 10:00 68 12/09/17 09:35 92 Venturi Mask 6.00 50 12/09/17 09:00 92 Nasal Cannula 5.00 12/09/17 08:00 66 12/09/17 08:00 97.6 66 19 126/63 (84) 98 12/09/17 08:00 99 Non-Rebreather 15.00 12/09/17 06:00 65 12/09/17 04:00 75 12/09/17 04:00 98.1 75 21 132/61 (84) 99 12/09/17 02:00 75 12/09/17 00:35 98 Venturi Mask 6.00 50 12/09/17 00:00 76 12/09/17 00:00 98.1 76 25 110/59 (76) 98 12/08/17 22:00 93 12/08/17 21:56 91 28 184/94 (124) 88 12/08/17 21:30 95 Non-Rebreather 15.00 12/08/17 21:00 97.5 91 29 172/87 (115) 100 12/08/17 21:00 88 Venturi Mask 6.00 50 12/08/17 20:55 99 Non-Rebreather 15.00 100 12/08/17 20:38 99 Non-Rebreather 15.00 100 12/08/17 20:00 98 12/08/17 19:30 Nasal Cannula 5.50 I/O 12/08/17 12/08/17 12/08/17 12/09/17 12/09/17 12/09/17 07:00 15:00 23:00 07:00 15:00 23:00 Intake Total 120 ml 1000 ml 120 ml 960 ml Output Total 550 ml 3600 ml 2300 ml Balance 120 ml 450 ml -3480 ml -1340 ml Intake Oral 120 ml 120 ml 960 ml IV Total 1000 ml Output Urine Total 550 ml 600 ml 500 ml Hemodialysis 3000 ml 1800 ml # Voids 1 # Bowel Movements 0 1 Physical Exam Alert Chest: just a few basilar crackles CV S1S2 RRR Edema better Laboratory Laboratory Tests Test 12/08/17 20:20 12/08/17 21:30 12/09/17 03:57 12/09/17 03:59 Nasal Screen MRSA (PCR) MRSA NOT DETECTED Urine Color LIGHT-YELLOW Urine Turbidity HAZY Urine pH 6.0 Urine Specific [place] 1.011 Urine Protein 300 mg/dL Urine Glucose (UA) 70 mg/dL Urine Ketones NEG mg/dL Urine Occult Blood SMALL Urine Nitrite NEG Urine Bilirubin NEG Urine Urobilinogen LESS THAN 2.0 MG/DL Urine Leukocyte Esterase NEG Urine RBC 5 /hpf Urine WBC 6 /hpf Urine Squamous Epithelial Cells <1 /hpf Microscopic Urinalysis Comment CATH-CULT NOT IND Blood Urea Nitrogen 42 MG/DL Creatinine 6.27 MG/DL Random Glucose 95 MG/DL Total Protein 6.9 GM/DL Albumin 2.7 GM/DL Calcium Level 8.2 MG/DL Phosphorus Level 3.6 MG/DL Magnesium Level 1.8 MG/DL Alkaline Phosphatase 117 U/L Aspartate Amino Transf (AST/SGOT) 17 U/L Alanine Aminotransferase (ALT/SGPT) 17 U/L Total Bilirubin 0.9 MG/DL Sodium Level 141 MEQ/L Potassium Level 4.3 MEQ/L Chloride Level 107 MEQ/L Carbon Dioxide Level 22.9 MEQ/L Anion Gap 11 MEQ/L Estimat Glomerular Filtration Rate 9 ML/MIN White Blood Count 9.0 TH/MM3 Red Blood Count 4.46 MIL/MM3 Hemoglobin 12.7 GM/DL Hematocrit 38.4 % Mean Corpuscular Volume 86.0 FL Mean Corpuscular Hemoglobin 28.4 PG Mean Corpuscular Hemoglobin Concent 33.0 % Red Cell Distribution Width 14.2 % Platelet Count 204 TH/MM3 Mean Platelet Volume 9.3 FL Neutrophils (%) (Auto) 80.1 % Lymphocytes (%) (Auto) 12.9 % Monocytes (%) (Auto) 6.1 % Eosinophils (%) (Auto) 0.1 % Basophils (%) (Auto) 0.8 % Neutrophils # (Auto) 7.2 TH/MM3 Lymphocytes # (Auto) 1.2 TH/MM3 Monocytes # (Auto) 0.5 TH/MM3 Eosinophils # (Auto) 0.0 TH/MM3 Basophils # (Auto) 0.1 TH/MM3 CBC Comment DIFF FINAL Differential Comment Hepatitis B Surface Antigen NONREACTIVE Hepatitis C IgG Antibody NONREACTIVE Imaging Last 24 hours Impressions Central Venous Line 12/09/17 0000 Signed Impressions: CONCLUSION: 1. Uncomplicated catheter removal. Catheter Placement X-Ray 12/09/17 0000 Signed Impressions: CONCLUSION: 1. Uncomplicated PermaCath placement as above. Assessment and Plan Problem List: (1) Supraventricular tachycardia ICD Codes: I47.1 - Supraventricular tachycardia Status: Acute Plan: no recurrence (2) Acute on chronic renal failure ICD Codes: N17.9 - Acute kidney failure, unspecified; N18.9 - Chronic kidney disease, unspecified (3) Congestive heart failure ICD Codes: I50.9 - Heart failure, unspecified Status: Acute Plan: improved Assessment and Plan I will be OOT until Friday. Froylan Naranjo/Becky available prn Roshan Zapata MD Dec 09, 2017 19:20
[2017-12-09] MEDS: ATORVASTATIN 80 MG TAB PO SCH (21:07)
[2017-12-10] VITALS (14 sets, daily range): BP systolic 108–129; BP diastolic 56–65; PULSE 60–79; RESP 14–112; TEMP 97.7–98.7; O2SAT 93–97
--- NOTE | 2017-12-10 00:17 | RADRPT ---
EXAM DATE: 12/09/2017 11:15 PM EDT AGE/SEX: 72 years / Male INDICATIONS: Arteriovenous fistula placement. CLINICAL DATA: This is the patient's initial encounter. Patient reports that signs and symptoms have been present for 1 day and indicates a pain score of 2/10. MEDICAL/SURGICAL HISTORY: Hypercholesterolemia. Emphysema. Renal calculi. Skin cancer. Neuro diana. Palpitations. HTN. COPD. Dyspnea. Renal insufficiency. UTI. Arthritis. Diabetes. Gait problems . PTSD. . Cataract surgery. Chest tube. Right nephrolithotripsy. Lumbar surgery. Left knee arthrosco py. Blood transufusions. COMPARISON: No prior exams available for comparison. FINDINGS: Right Upper Extremity: Right subclavian vein is not visualized because of recently placed catheter i n this region. There is diffuse cephalic vein thrombosis from the level the mid upper arm to the wris t. All other deep veins of the right upper extremity demonstrate normal color Doppler flow and compre ssion. Left Upper Extremity: There is spontaneous flow documented in the brachial, basilic, cephalic, axill alicia, and subclavian veins. The vessels are compressible and augmentation response is documented. No filling defects are seen. The flow is phasic with respiration. Direction of flow in the jugular ve in is caudal. CONCLUSION: 1. Superficial vein thrombosis involving the cephalic vein on the right. Nonvisualization of right s ubclavian vein due to recently placed catheter in this region. 2. No evidence of deep vein thrombosis on the right or left. Electronically signed by: Juno Gutiérrez MD 12/10/2017 12:16 AM EDT
[2017-12-10] MEDS: CHLORHEXIDINE GLUCONATE 2 % 1 PACK (2 CLOTHS)(taper/protocol) TOPICAL SCH (04:00)
[2017-12-10 05:33] LABS: HEMATOCRIT 37.7 % (39.0-51.0); HEMOGLOBIN 12.6 GM/DL (13.0-17.0); MEAN CELL VOLUME 86.2 FL (80.0-100.0); MEAN CORPUSCULAR HEMOGLOBIN 28.9 PG (27.0-34.0); MEAN CORPUSCULAR HGB CONC 33.5 % (32.0-36.0); MEAN PLATELET VOLUME 9.2 FL (7.0-11.0); PLATELET COUNT 179 TH/MM3 (150-450); RED BLOOD COUNT 4.37 MIL/MM3 (4.50-5.90); RED CELL DISTRIBUTION WIDTH 13.8 % (11.6-17.2)
[2017-12-10 05:42] LABS: BICARBONATE 27.8 MEQ/L (21.0-32.0); CALCIUM 7.7 MG/DL (8.5-10.1); CREATININE 5.74 MG/DL (0.60-1.30)
[2017-12-10] MEDS: METOPROLOL TARTRATE 25 MG TAB PO SCH (06:41)
[2017-12-10] MEDS: INSULIN ASPART SUPPLEMENTAL SCALE SQ SCH ×4 (08:00→21:00)
[2017-12-10] MEDS: SODIUM CHLORIDE 0.9% FLUSH 10 ML FLUSH IV FLUSH SCH ×2 (08:09→21:00)
[2017-12-10] MEDS: FUROSEMIDE 40 MG/4 ML VIAL IV PUSH SCH ×2 (08:09→16:13)
[2017-12-10] MEDS: BUDESONIDE-FORMOTEROL 160/4.5 MCG INHALER INH SCH ×2 (08:10→21:00)
--- NOTE | 2017-12-10 11:13 | HHI.NPPN ---
Subjective Renal Failure: Chronic, Stage V Interval History No new overnight events. Looks much better. (Jyoti Ceron) Objective Data Data Vital Signs Date Time Temp Pulse Resp B/P (MAP) Pulse Ox O2 Delivery O2 Flow Rate FiO2 12/10/17 10:00 67 12/10/17 09:50 95 Nasal Cannula 5.00 12/10/17 08:00 60 12/10/17 08:00 94 Nasal Cannula 5.00 12/10/17 08:00 97.7 60 15 122/60 (80) 95 12/10/17 06:00 71 12/10/17 04:00 66 12/10/17 04:00 97.8 66 19 120/63 (82) 96 12/10/17 02:00 62 12/10/17 00:00 66 12/10/17 00:00 98.7 66 23 108/56 (73) 95 12/09/17 22:07 15 12/09/17 22:00 74 12/09/17 20:00 98.5 82 21 119/62 (81) 92 12/09/17 20:00 82 12/09/17 19:00 95 Nasal Cannula 5.00 12/09/17 18:00 71 12/09/17 17:38 67 22 110/54 (72) 99 12/09/17 17:15 68 21 118/61 (80) 94 12/09/17 17:00 70 19 110/54 (72) 96 12/09/17 16:45 73 24 134/60 (84) 96 12/09/17 16:30 72 22 119/59 (79) 98 12/09/17 16:21 70 14 119/56 (77) 98 12/09/17 16:21 70 12/09/17 16:00 98.6 64 16 110/54 (72) 96 12/09/17 14:00 70 12/09/17 12:00 70 12/09/17 12:00 98.3 70 22 124/67 (86) 92 (Jyoti Ceron) -: 12/10/17 0356 12/10/17 0356 Imaging Last 72 hours Impressions Upper Extremity Ultrasound 12/09/17 0000 Signed Impressions: CONCLUSION: 1. Superficial vein thrombosis involving the cephalic vein on the right. Nonvi sualization of right subclavian vein due to recently placed catheter in this re gion. 2. No evidence of deep vein thrombosis on the right or left. Central Venous Line 12/09/17 Signed Impressions: CONCLUSION: 1. Uncomplicated catheter removal. Catheter Placement X-Ray 12/09/17 Signed Impressions: CONCLUSION: 1. Uncomplicated PermaCath placement as above. Chest X-Ray 12/08/17 1109 Signed Impressions: CONCLUSION: Cardiomegaly with moderate congestive failure. Parenchymal changes right base o f uncertain significance. Renal Ultrasound 12/08/17 Signed Impressions: CONCLUSION: Multiple simple cysts in both kidneys. Chest X-Ray 12/08/17 Signed Impressions: CONCLUSION: Slight worsening pulmonary edema. Tubes & Lines: Perma-Cath (Jyoti Ceron) Physical Exam General Appearance: Well Developed, Well Nourished, Comfortable (Jyoti Ceron) Eyes Eye Exam: Pupils Equal, Pupils Reactive (Jyoti Ceron) Throat Throat Exam: Oral Mucosa [place] & Moist (Jyoti Ceron) Pulmonary Resp Exam: Breath Sounds Equal, No Distress, Crackles (Jyoti Ceron) Cardiology CV Exam: Regular, Normal Sinus Rhythm, Good Perfusion (Jyoti Ceron) Gastrointestinal/Abdomen GI Exam: Soft, Non-Tender, Bowel Sounds Present (Jyoti Ceron) Musculoskeletal MS Exam: Joints Intact, Normal Gait, Normal Tone (Jyoti Ceron) Integumentary Skin Exam: Warm, Dry, Intact (Jyoti Ceron) Extremeties Extremities Exam: No Edema, Pedal Pulses Palpable (Jyoti Ceron) Neurologic Neuro Exam: Alert, Awake, Oriented, Speech Clear, Moving All Extremities (Jyoti Ceron) Psychiatric Psych Exam: Appropriate Responses (Jyoti Ceron) Assessment/Plan Discussed Condition With: Patient Assessment Summary: Fluid/Volume Overload, Hypertension, End Stage Renal Disease Problem List: (1) Chronic kidney disease, stage 5 ICD Codes: N18.5 - Chronic kidney disease, stage 5 Plan: He has reached ESRD Successful permcath exchange 12/09 He is on HD TTS Plans for outpatient HD in process. He will go to [facility] ([facility]) . Will convert to [facility] scheduled days next week. Carefully monitor fluid and electrolyte status. Repeat labs in AM. Avoid Gadolinium and IVF administration. Vein mapping done, vascular has evaluated. Hopefully we can have AVF placed prior to discharge. (2) HTN (hypertension) ICD Codes: I10 - Essential (primary) hypertension Status: Acute Plan: BP control is better after HD On amlodipine and Carvedilol (3) Diabetes mellitus ICD Codes: E11.9 - Type 2 diabetes mellitus without complications Status: Acute Plan: insulin coverage to maintain blood glucose between 140 and 180 (4) Supraventricular tachycardia ICD Codes: I47.1 - Supraventricular tachycardia Status: Acute Plan: converted to NSR. Cardiology has evaluated Plan patient was seen and examined. Emergently dialyzed yesterday because of pulmonary edema. Dialysis again today. PermCath placement and vascular surgery consult. (Jyoti Ceron) Plan patient was seen and examined. We will continue dialysis. Vascular surgery has been consulted. Outpatient dialysis at [facility]. (Eduardo Salvador MD) Jyoti Ceron Dec 10, 2017 11:13 Eduardo Salvador MD Dec 11, 2017 09:05
--- NOTE | 2017-12-10 14:00 | ECHRPT ---
Indication: HEART FAILURE CONCLUSIONS Normal left ventricular size. Mild concentric left ventricular hypertrophy. The left ventricular systolic function is normal with an estimated ejection fraction of 55%. Trace mitral valve regurgitation. Mild aortic valve sclerosis is present. Mild aortic valve regurgitation. There is trace tricuspid valve regurgitation. BP: 126 / 63 HR: 68 Rhythm: Sinus MEASUREMENTS (Male / Female) Normal Values Technical Quality:Fair 2D ECHO LV Diastolic Diameter PLAX 5.8 cm 4.2 - 5.9 / 3.9 - 5.3 cm LV Systolic Diameter PLAX 3.9 cm IVS Diastolic Thickness 1.6 cm 0.6 - 1.0 / 0.6 - 0.9 cm LVPW Diastolic Thickness 1.6 cm 0.6 - 1.0 / 0.6 - 0.9 cm LV Relative Wall Thickness 0.5 RV Internal Dim ED PLAX 2.2 cm LVOT Diameter 2.9 cm Aortic Root Diameter 3.5 cm LA Systolic Diameter LX 3.8 cm 3.0 - 4.0 / 2.7 - 3.8 cm DOPPLER AV Peak Velocity 223.0 cm/s AV Peak Gradient 19.9 mmHg AV Mean Gradient 11.0 mmHg AV Velocity Time Integral 50.1 cm LVOT Peak Velocity 67.7 cm/s LVOT Peak Gradient 1.8 mmHg LVOT Velocity Time Integral 14.5 cm LVOT Cardiac Index 2950.3 cm/minm AV Area Cont Eq vti 1.9 cm AV Area Cont Eq pk 2.0 cm Mitral E Point Velocity 42.4 cm/s Mitral A Point Velocity 62.2 cm/s Mitral E to A Ratio 0.7 LV E' Lateral Velocity 4.8 cm/s Mitral E to LV E' Lateral Ratio 8.9 LV E' Septal Velocity 3.8 cm/s Mitral E to LV E' Septal Ratio 11.2 TR Peak Velocity 183.0 cm/s TR Peak Gradient 13.4 mmHg Right Atrial Pressure 10.0 mmHg Pulmonary Artery Systolic Pressu 23.4 mmHg Right Ventricular Systolic Press 23.4 mmHg PV Peak Velocity 45.9 cm/s PV Peak Gradient 0.8 mmHg FINDINGS LEFT VENTRICLE Normal left ventricular size. Mild concentric left ventricular hypertrophy. The left ventricular systolic function is normal with an estimated ejection fraction of 55%. Samantha l wall motion. RIGHT VENTRICLE Normal right ventricular size and systolic function. LEFT ATRIUM The left atrial size is normal. RIGHT ATRIUM The right atrial size is normal. ATRIAL SEPTUM The interatrial septum not well visualized. AORTA The aortic root and proximal ascending aorta are normal in size on limited imaging. MITRAL VALVE Trace mitral valve regurgitation. AORTIC VALVE Mild aortic valve sclerosis is present. Mild aortic valve regurgitation. TRICUSPID VALVE There is trace tricuspid valve regurgitation. PULMONARY VALVE No pulmonary valve regurgitation or stenosis. VESSELS There is greater than 50% respiratory change in dimension of the inferior vena cava (normal). PERICARDIUM No pericardial effusion. Dagoberto Pena MD (Electronically Signed) Final Date:10 December 2017 13:59
--- NOTE | 2017-12-10 14:23 | RADRPT ---
EXAM DATE: 12/10/2017 1:26 PM EDT AGE/SEX: 72 years / Male INDICATIONS: AVF placement. CLINICAL DATA: This is the patient's initial encounter. Patient reports that signs and symptoms have been present for 1 day and indicates a pain score of 2/10. MEDICAL/SURGICAL HISTORY: Emphysema. Hypercholesterolemia. Renal calculi. Skin cancer. Neuro diana. Palpitations. HTN. COPD. Dyspnea. Renal insufficiency. UTI. Arthritis. Diabetes. Gait problems . PTSD. . Cataract surgery. Chest tube. Right nephrolithotripsy. Lumbar surgery. Left knee arthrosco py. Blood transfusions. COMPARISON: No prior exams available for comparison. MEASUREMENTS: RIGHT: CEPHALIC: Origin:__1 mm Mid-Arm:__1 mm Elbow:__Thrombosed Forearm:__Thrombosed Wrist:__Thrombosed BASILIC: Origin:__5 mm Mid-Arm:__5 mm Elbow:__7 mm ARTERIES: Brachial:__6 mm Ulnar:__2 mm Radial:__2 mm VEINS: Radial:__4 mm Ulnar:__2 mm LEFT: CEPHALIC: Origin:__2 mm Mid-Arm:__4 mm Elbow:__3 mm Forearm:__3 mm Wrist:__3 mm BASILIC: Origin:__7 mm Mid-Arm:__4 mm Elbow:__5 mm ARTERIES: Brachial:__5 mm Ulnar:__3 mm Radial:__4 mm VEINS: Radial:__3 mm Ulnar:__2 mm FINDINGS: Venous mapping as above with thrombosis in the right cephalic vein from wrist to mid upper extremity. Other veins are patent. CONCLUSION: 1. Electronically signed by: George Kumar MD 12/10/2017 2:22 PM EDT
--- NOTE | 2017-12-10 16:04 | HHI.PR ---
Subjective Remarks Patient doing 30 well, she is on nasal cannula O2 later she had hemodialysis yesterday, she had a PermCath also yesterday Objective Vitals Vital Signs Date Time Temp Pulse Resp B/P (MAP) Pulse Ox O2 Delivery O2 Flow Rate FiO2 12/10/17 14:00 70 12/10/17 12:00 68 12/10/17 12:00 98.6 68 22 113/60 (77) 97 12/10/17 10:00 67 12/10/17 09:50 95 Nasal Cannula 5.00 12/10/17 08:00 60 12/10/17 08:00 94 Nasal Cannula 5.00 12/10/17 08:00 97.7 60 15 122/60 (80) 95 12/10/17 06:00 71 12/10/17 04:00 66 12/10/17 04:00 97.8 66 19 120/63 (82) 96 12/10/17 02:00 62 12/10/17 00:00 66 12/10/17 00:00 98.7 66 23 108/56 (73) 95 12/09/17 22:07 15 12/09/17 22:00 74 12/09/17 20:00 98.5 82 21 119/62 (81) 92 12/09/17 20:00 82 12/09/17 19:00 95 Nasal Cannula 5.00 12/09/17 18:00 71 12/09/17 17:38 67 22 110/54 (72) 99 12/09/17 17:15 68 21 118/61 (80) 94 12/09/17 17:00 70 19 110/54 (72) 96 12/09/17 16:45 73 24 134/60 (84) 96 12/09/17 16:30 72 22 119/59 (79) 98 12/09/17 16:21 70 14 119/56 (77) 98 12/09/17 16:21 70 I/O 12/09/17 12/09/17 12/09/17 12/10/17 12/10/17 12/10/17 07:00 15:00 23:00 07:00 15:00 23:00 Intake Total 120 ml 960 ml 500 ml Output Total 3600 ml 2300 ml 450 ml Balance -3480 ml -1340 ml 50 ml Intake Oral 120 ml 960 ml 500 ml Output Urine Total 600 ml 500 ml 450 ml Hemodialysis 3000 ml 1800 ml # Bowel Movements 0 1 0 Result Diagram: 12/10/17 0356 12/10/17 0356 Objective Remarks GENERAL: This is a well-nourished, well-developed patient, in no apparent distress. CARDIOVASCULAR: RRR, systolic murmur 3 out of 6 RESPIRATORY: Fair air entry bilaterally. No W, R, or R GASTROINTESTINAL: Abdomen soft, non-tender, nondistended. Positive bowel sounds MUSCULOSKELETAL: Extremities without clubbing, cyanosis, or edema. Pedal pulses appreciated NEUROLOGICAL: Awake and alert. Moves all extremity. Normal speech.no focal neurological deficit A/P Problem List: (1) Acute on chronic renal failure ICD Code: N17.9 - Acute kidney failure, unspecified; N18.9 - Chronic kidney disease, unspecified (2) SVT (supraventricular tachycardia) ICD Code: I47.1 - Supraventricular tachycardia (3) HTN (hypertension) ICD Code: I10 - Essential (primary) hypertension Status: Acute (4) Respiratory failure, acute ICD Code: J96.00 - Acute respiratory failure, unspecified whether with hypoxia or hypercapnia (5) DM (diabetes mellitus) ICD Code: E11.9 - Type 2 diabetes mellitus without complications Status: Acute Assessment and Plan 12/10: Continue ongoing management with hemodialysis per nephrology, heart rate control per cardiology, Repeat CBC BMP in a.m., monitor temperature, blood pressure A/P: PREET, on Chronic kidney disease: Nephrology on board, on hemodialysis status post PermCath placed, CVA consulted for AV fistula SVT: Cardiac enzymes negative no ST changes status post adenosine and metoprolol in ED, cardiology consulted, continue metoprolol and monitor telemetry Hypertension: Continue amlodipine Respiratory failure acute: Secondary to pulmonary edema fluid overload on top of COPD, continue dialysis, continue oxygen supplement, continue Symbicort Diabetes mellitus, type II: Continue Accu-Chek with insulin sliding scale A1c is 5.8 Problem Qualifiers (1) Respiratory failure, acute: Qualified Codes: J96.01 - Acute respiratory failure with hypoxia Anabela Clarke MD Dec 10, 2017 16:04
[2017-12-10] MEDS: CARVEDILOL 3.125 MG TAB PO SCH (20:21)
[2017-12-10] MEDS: ATORVASTATIN 80 MG TAB PO SCH (20:22)
[2017-12-10] MEDS: ACETAMINOPHEN/HYDROcodone 325 MG/5 MG TAB PO PRN (20:22)
[2017-12-11] VITALS (12 sets, daily range): BP systolic 119–138; BP diastolic 58–64; PULSE 66–81; RESP 17–19; TEMP 97.9–98.7; O2SAT 90–95
[2017-12-11] MEDS: ACETAMINOPHEN/HYDROcodone 325 MG/5 MG TAB PO PRN ×2 (02:03→21:32)
[2017-12-11] MEDS: CHLORHEXIDINE GLUCONATE 2 % 1 PACK (2 CLOTHS)(taper/protocol) TOPICAL SCH ×2 (04:00→21:26)
[2017-12-11] MEDS: INSULIN ASPART SUPPLEMENTAL SCALE SQ SCH ×4 (07:52→21:00)
[2017-12-11] MEDS: SODIUM CHLORIDE 0.9% FLUSH 10 ML FLUSH IV FLUSH SCH ×2 (07:53→21:33)
[2017-12-11] MEDS: CARVEDILOL 3.125 MG TAB PO SCH ×2 (07:53→21:32)
[2017-12-11] MEDS: FUROSEMIDE 40 MG/4 ML VIAL IV PUSH SCH ×2 (07:53→18:00)
[2017-12-11] MEDS: BUDESONIDE-FORMOTEROL 160/4.5 MCG INHALER INH SCH ×2 (09:00→21:00)
--- NOTE | 2017-12-11 10:57 | HHI.NPPN ---
Subjective Renal Failure: Chronic, Stage V Interval History No acute changes. Due for dialysis. Outpatient HD arrangements in process. (Jyoti Ceron) Objective Data Data Vital Signs Date Time Temp Pulse Resp B/P (MAP) Pulse Ox O2 Delivery O2 Flow Rate FiO2 12/11/17 10:00 75 12/11/17 09:45 95 Nasal Cannula 3.00 12/11/17 08:00 66 12/11/17 08:00 97.9 66 17 123/61 (81) 95 12/11/17 07:00 99 Nasal Cannula 3.00 12/11/17 06:00 72 12/11/17 04:00 73 12/11/17 04:00 98.5 73 17 119/60 (79) 94 12/11/17 03:03 25 12/11/17 02:00 78 12/11/17 00:00 75 12/11/17 00:00 98.0 75 19 125/61 (82) 90 12/10/17 22:00 73 12/10/17 22:00 97.9 73 14 120/65 (83) 94 12/10/17 20:00 98.5 79 112 129/61 (83) 93 12/10/17 20:00 79 12/10/17 19:21 96 Nasal Cannula 5.00 12/10/17 19:00 95 Nasal Cannula 3.00 12/10/17 18:24 93 Nasal Cannula 3.00 12/10/17 18:00 74 12/10/17 16:00 98.7 70 18 119/58 (78) 94 12/10/17 16:00 70 12/10/17 14:00 70 12/10/17 12:00 68 12/10/17 12:00 98.6 68 22 113/60 (77) 97 12/10/17 11:00 95 Nasal Cannula 4.00 (Jyoti Ceron) -: 12/10/17 0356 12/10/17 0356 Imaging Last 72 hours Impressions Upper Extremity Ultrasound 12/09/17 0000 Signed Impressions: CONCLUSION: 1. Upper Extremity Ultrasound 12/09/17 0000 Signed Impressions: CONCLUSION: 1. Superficial vein thrombosis involving the cephalic vein on the right. Nonvi sualization of right subclavian vein due to recently placed catheter in this re gion. 2. No evidence of deep vein thrombosis on the right or left. Central Venous Line 12/09/17 0000 Signed Impressions: CONCLUSION: 1. Uncomplicated catheter removal. Catheter Placement X-Ray 12/09/17 0000 Signed Impressions: CONCLUSION: 1. Uncomplicated PermaCath placement as above. Chest X-Ray 12/08/17 1109 Signed Impressions: CONCLUSION: Cardiomegaly with moderate congestive failure. Parenchymal changes right base o f uncertain significance. Tubes & Lines: Perma-Cath (Jyoti Ceron) Physical Exam General Appearance: Well Developed, Well Nourished, Comfortable (Jyoti Ceron [employer]) Eyes Eye Exam: Pupils Equal, Pupils Reactive (Jyoti CeronP) Throat Throat Exam: Oral Mucosa [place] & Moist (Jyoti Ceron [employer]CHNICIAN) Pulmonary Resp Exam: Breath Sounds Equal, No Distress, Crackles Resp Remarks bibasilar rales (Jyoti Ceron [employer]CH[employer]) Cardiology CV Exam: Regular, Normal Sinus Rhythm, Good Perfusion (Jyoti Ceron [employer]CHNICIAN) Gastrointestinal/Abdomen GI Exam: Soft, Non-Tender, Bowel Sounds Present (Jyoti Ceron BGuzman [employer]CHNICIAN) Musculoskeletal MS Exam: Joints Intact, Normal Gait, Normal Tone (Jyoti Ceron [employer]CHNICIAN) Integumentary Skin Exam: Warm, Dry, Intact (Jyoti Ceron. [employer]CHNICIAN) Extremeties Extremities Exam: No Edema, Pedal Pulses Palpable (Jyoti Ceron [employer]CHNICIAN) Neurologic Neuro Exam: Alert, Awake, Oriented, Speech Clear, Moving All Extremities (Jyoti Ceron [employer]CHNICIAN) Psychiatric Psych Exam: Appropriate Responses (Jyoti Ceron) Assessment/Plan Discussed Condition With: Patient Assessment Summary: Fluid/Volume Overload, Hypertension, End Stage Renal Disease Problem List: (1) Chronic kidney disease, stage 5 ICD Codes: N18.5 - Chronic kidney disease, stage 5 Plan: He has reached ESRD Successful PermCath placement 12/09 He is on HD TTS, due today We will dialyze short treatment tomorrow (Friday) to convert to MWF for discharge purposes Carefully monitor fluid and electrolyte status. Repeat labs in AM. UF as tolerated with HD. Avoid Gadolinium and IVF administration. Vein mapping done, vascular has evaluated. AVF to be placed outpatient in 1-2 weeks. (2) HTN (hypertension) ICD Codes: I10 - Essential (primary) hypertension Status: Acute Plan: BP control is better after HD On amlodipine and Carvedilol (3) Diabetes mellitus ICD Codes: E11.9 - Type 2 diabetes mellitus without complications Status: Acute Plan: insulin coverage to maintain blood glucose between 140 and 180 (4) Supraventricular tachycardia ICD Codes: I47.1 - Supraventricular tachycardia Status: Acute Plan: converted to NSR. Cardiology has evaluated Plan Patient can be downgraded and transferred out of ICU. (Jyoti Ceron) Problem List: (1) Chronic kidney disease, stage 5 ICD Codes: N18.5 - Chronic kidney disease, stage 5 Plan: He has reached ESRD Successful PermCath placement 12/09 He is on HD TTS, due today We will dialyze short treatment tomorrow (Friday) to convert to MWF for discharge purposes Carefully monitor fluid and electrolyte status. Repeat labs in AM. UF as tolerated with HD. Avoid Gadolinium and IVF administration. Vein mapping done, vascular has evaluated. AVF to be placed outpatient in 1-2 weeks. (2) HTN (hypertension) ICD Codes: I10 - Essential (primary) hypertension Status: Acute Plan: BP control is better after HD On amlodipine and Carvedilol (3) Diabetes mellitus ICD Codes: E11.9 - Type 2 diabetes mellitus without complications Status: Acute Plan: insulin coverage to maintain blood glucose between 140 and 180 (4) Supraventricular tachycardia ICD Codes: I47.1 - Supraventricular tachycardia Status: Acute Plan: converted to NSR. Cardiology has evaluated Plan patient was seen and examined. I agree with above assessment and plan. (Eduardo Salvador MD) Jyoti Ceron Dec 11, 2017 10:57 Eduardo Salvador MD Dec 11, 2017 20:17
[2017-12-11] MEDS: GENTAMICIN SULFATE 20 MG/2 ML VIAL OTHER PRN (13:39)
[2017-12-11] MEDS: HEPARIN SODIUM - IV 10,000 UNITS/10 ML VIAL PRN (13:39)
[2017-12-11] MEDS: ALBUMIN 25% INJ 100 ML IV PRN ×2 (14:04→14:05)
--- NOTE | 2017-12-11 15:03 | HHI.PR ---
Subjective Remarks Late entry note patient seen and examined earlier today around 11:30 AM I have short of breath "however patient need for oxygen dropped to 3 L via from yesterday In general this calm resting comfortably in bed in no acute distress Transfer to [facility] floor Objective Vitals Vital Signs Date Time Temp Pulse Resp B/P (MAP) Pulse Ox O2 Delivery O2 Flow Rate FiO2 12/11/17 14:00 71 12/11/17 12:00 67 12/11/17 12:00 98.3 67 17 121/61 (81) 94 12/11/17 10:00 75 12/11/17 09:45 95 Nasal Cannula 3.00 12/11/17 08:00 66 12/11/17 08:00 97.9 66 17 123/61 (81) 95 12/11/17 07:00 99 Nasal Cannula 3.00 12/11/17 06:00 72 12/11/17 04:00 73 12/11/17 04:00 98.5 73 17 119/60 (79) 94 12/11/17 03:03 25 12/11/17 02:00 78 12/11/17 00:00 75 12/11/17 00:00 98.0 75 19 125/61 (82) 90 12/10/17 22:00 73 12/10/17 22:00 97.9 73 14 120/65 (83) 94 12/10/17 20:00 98.5 79 112 129/61 (83) 93 12/10/17 20:00 79 12/10/17 19:21 96 Nasal Cannula 5.00 12/10/17 19:00 95 Nasal Cannula 3.00 12/10/17 18:24 93 Nasal Cannula 3.00 12/10/17 18:00 74 12/10/17 16:00 98.7 70 18 119/58 (78) 94 12/10/17 16:00 70 I/O 12/10/17 12/10/17 12/10/17 12/11/17 12/11/17 12/11/17 07:00 15:00 23:00 07:00 15:00 23:00 Intake Total 500 ml 960 ml 300 ml Output Total 450 ml 1100 ml 700 ml Balance 50 ml -140 ml -400 ml Intake Oral 500 ml 960 ml 300 ml Output Urine Total 450 ml 1100 ml 700 ml # Bowel Movements 0 0 0 Result Diagram: 12/10/176 12/10/17 0356 Objective Remarks GENERAL: This is a well-nourished, well-developed patient, in no apparent distress. CARDIOVASCULAR: RRR, systolic murmur 3 out of 6 RESPIRATORY: Fair air entry bilaterally. No W, R, or R GASTROINTESTINAL: Abdomen soft, non-tender, nondistended. Positive bowel sounds MUSCULOSKELETAL: Extremities without clubbing, cyanosis, or edema. Pedal pulses appreciated NEUROLOGICAL: Awake and alert. Moves all extremity. Normal speech.no focal neurological deficit A/P Problem List: (1) Acute on chronic renal failure ICD Code: N17.9 - Acute kidney failure, unspecified; N18.9 - Chronic kidney disease, unspecified (2) SVT (supraventricular tachycardia) ICD Code: I47.1 - Supraventricular tachycardia (3) HTN (hypertension) ICD Code: I10 - Essential (primary) hypertension Status: Acute (4) Respiratory failure, acute ICD Code: J96.00 - Acute respiratory failure, unspecified whether with hypoxia or hypercapnia (5) DM (diabetes mellitus) ICD Code: E11.9 - Type 2 diabetes mellitus without complications Status: Acute Assessment and Plan 12/10: Continue ongoing management with hemodialysis per nephrology, heart rate control per cardiology, Repeat CBC BMP in a.m., monitor temperature, blood pressure 12/11: Still on O2 nasal cannula 3 L today from 5 L yesterday, he will have hemodialysis today, continue PT, IS, heart rate is stable, transferred to [facility] floor A/P: PREET, on Chronic kidney disease: Nephrology on board, on hemodialysis status post PermCath placed, CVA consulted for AV fistula SVT: Cardiac enzymes negative no ST changes status post adenosine and metoprolol in ED, cardiology consulted, continue metoprolol and monitor telemetry 2D echo with normal ejection fraction of 55% trace MR and mild AR Hypertension: Continue amlodipine Respiratory failure acute: Secondary to pulmonary edema fluid overload on top of COPD, continue dialysis, continue oxygen supplement, continue Symbicort Diabetes mellitus, type II: Continue Accu-Chek with insulin sliding scale A1c is 5.8 Discharge Planning Within 1-2 days if continue to improve and oxygen weaned off Problem Qualifiers (1) Respiratory failure, acute: Qualified Codes: J96.01 - Acute respiratory failure with hypoxia Anabela Clarke MD Dec 11, 2017 15:03
[2017-12-11] MEDS: MAGNESIUM HYDROXIDE SUSP 30 ML CUP PO PRN (21:32)
[2017-12-11] MEDS: ATORVASTATIN 80 MG TAB PO SCH (21:32)
[2017-12-12] VITALS (8 sets, daily range): BP systolic 115–133; BP diastolic 55–76; PULSE 70–86; RESP 16–17; TEMP 97.4–98.8; O2SAT 91–98
[2017-12-12] MEDS: ACETAMINOPHEN/HYDROcodone 325 MG/5 MG TAB PO PRN ×4 (06:26→23:31)
[2017-12-12] MEDS: SENNOSIDES 8.6 MG TAB PO PRN ×2 (06:27→20:50)
[2017-12-12] MEDS: LACTULOSE SYRUP 20 GM/30 ML CUP PO PRN (06:27)
[2017-12-12] MEDS: INSULIN ASPART SUPPLEMENTAL SCALE SQ SCH ×4 (08:00→20:45)
[2017-12-12 08:05] LABS: BICARBONATE 28.8 MEQ/L (21.0-32.0); CALCIUM 8.6 MG/DL (8.5-10.1); CREATININE 6.32 MG/DL (0.60-1.30)
[2017-12-12] MEDS: BUDESONIDE-FORMOTEROL 160/4.5 MCG INHALER INH SCH ×2 (09:00→20:51)
[2017-12-12] MEDS: MAGNESIUM HYDROXIDE SUSP 30 ML CUP PO PRN ×2 (09:55→20:50)
[2017-12-12] MEDS: CARVEDILOL 3.125 MG TAB PO SCH ×2 (09:55→20:51)
[2017-12-12] MEDS: SODIUM CHLORIDE 0.9% FLUSH 10 ML FLUSH IV FLUSH SCH ×2 (09:55→20:51)
[2017-12-12] MEDS: FUROSEMIDE 40 MG/4 ML VIAL IV PUSH SCH ×2 (09:55→17:26)
--- NOTE | 2017-12-12 11:04 | RADRPT ---
EXAM DATE: 12/12/2017 10:58 AM EDT AGE/SEX: 72 years / Male INDICATIONS: Shortness of breath and right sided chest pain. CLINICAL DATA: This is the patient's subsequent encounter. Patient reports that signs and symptoms h ave been present for 4 - 6 days and indicates a pain score of 4/10. MEDICAL/SURGICAL HISTORY: Hypertension. Chronic obstructive pulmonary disease. Congestive hea rt failure. None. COMPARISON: [facility] [place], CHEST SINGLE AP, 12/08/2017. . FINDINGS: Dialysis catheter in good position. Improvement with less interstitial edema from comparison. Moderat e cardiomegaly persists. Minimal parenchymal changes remain right base. The portion of the bony skele ton visualized is unremarkable. CONCLUSION: Interval improvement with less edema. Electronically signed by: George Kumar MD 12/12/2017 11:02 AM EDT
--- NOTE | 2017-12-12 14:50 | HHI.NPPN ---
Subjective Renal Failure: Chronic, Stage V Interval History Seen during dialysis, no new concerns. Pending [facility] approval for outpatient HD. (Jyoti Ceron) Objective Data Data Vital Signs Date Time Temp Pulse Resp B/P (MAP) Pulse Ox O2 Delivery O2 Flow Rate FiO2 12/12/17 12:37 92 Nasal Cannula 3.00 12/12/17 12:37 98.0 72 16 129/61 (83) 92 12/12/17 09:44 Nasal Cannula 3.00 12/12/17 04:12 71 12/12/17 04:00 97.4 81 16 133/76 (95) 98 12/12/17 00:00 86 12/12/17 00:00 98.8 83 17 115/55 (75) 91 12/11/17 21:29 91 Nasal Cannula 3.00 12/11/17 20:00 98.7 81 17 119/60 (79) 90 12/11/17 20:00 76 12/11/17 18:18 Nasal Cannula 3.00 12/11/17 17:00 98.0 77 18 138/64 (88) 93 12/11/17 16:00 79 12/11/17 16:00 98.0 79 17 124/58 (80) 92 (Jyoti Ceron) -: 12/10/17 0356 12/12/17 0638 Imaging Last 72 hours Impressions Chest X-Ray 12/12/17 0000 Signed Impressions: CONCLUSION: Interval improvement with less edema. Tubes & Lines: Perma-Cath (Jyoti Ceron) Physical Exam General Appearance: Well Developed, Well Nourished, Comfortable (Jyoti Ceron) Eyes Eye Exam: Pupils Equal, Pupils Reactive (Jyoti Ceron) Throat Throat Exam: Oral Mucosa [place] & Moist (Jyoti Ceron) Pulmonary Resp Exam: Breath Sounds Equal, No Distress, Crackles Resp Remarks bibasilar rales (Jyoti Ceron) Cardiology CV Exam: Regular, Normal Sinus Rhythm, Good Perfusion (Jyoti Ceron) Gastrointestinal/Abdomen GI Exam: Soft, Non-Tender, Bowel Sounds Present (Jyoti Ceron) Musculoskeletal MS Exam: Joints Intact, Normal Gait, Normal Tone (Jyoti Ceron) Integumentary Skin Exam: Warm, Dry, Intact (Jyoti Ceron) Extremeties Extremities Exam: No Edema, Pedal Pulses Palpable (Jyoti Ceron) Neurologic Neuro Exam: Alert, Awake, Oriented, Speech Clear, Moving All Extremities (Jyoti Ceron) Psychiatric Psych Exam: Appropriate Responses (Jyoti Ceron) Assessment/Plan Discussed Condition With: Patient Assessment Summary: Fluid/Volume Overload, Hypertension, End Stage Renal Disease Problem List: (1) Chronic kidney disease, stage 5 ICD Codes: N18.5 - Chronic kidney disease, stage 5 Plan: He has reached ESRD Successful PermCath placement 12/09 Transitioned to MWF HD. Seen during dialysis today on a 3K, 350 BFR, goal 1L Carefully monitor fluid and electrolyte status. Repeat labs intermittently. UF as tolerated with HD. Avoid Gadolinium and IVF administration. Vein mapping done, vascular has evaluated. AVF to be placed outpatient in 1-2 weeks. He will be at [facility], chair time 3:30 pm. He will have transportation Pending ID approval prior to discharge, appreciate assistance. (2) HTN (hypertension) ICD Codes: I10 - Essential (primary) hypertension Status: Acute Plan: BP control is better after HD On amlodipine and Carvedilol (3) Diabetes mellitus ICD Codes: E11.9 - Type 2 diabetes mellitus without complications Status: Acute Plan: insulin coverage to maintain blood glucose between 140 and 180 (4) Supraventricular tachycardia ICD Codes: I47.1 - Supraventricular tachycardia Status: Acute Plan: converted to NSR. Cardiology has evaluated Plan (Jyoti Ceron) Plan patient was seen and examined. He can be discharged if outpatient dialysis arrangements are complete. Awaiting approval for VA insurance. (Eduardo Salvador MD) Jyoti Ceron Dec 12, 2017 14:49 Eduardo Salvador MD Dec 12, 2017 15:57
[2017-12-12] MEDS: GENTAMICIN SULFATE 20 MG/2 ML VIAL OTHER PRN (15:47)
[2017-12-12] MEDS: HEPARIN SODIUM - IV 10,000 UNITS/10 ML VIAL PRN (15:47)
--- NOTE | 2017-12-12 17:12 | HHI.PR ---
Subjective Remarks Patient just came from hemodialysis Doing well resting comfortably in bed however he still on 4 L of nasal cannula oxygen I discussed with him and his , she told me he saw in the past but he never needed oxygen I repeated chest x-ray which showed some improvement in the lung edema however it still congested Objective Vitals Vital Signs Date Time Temp Pulse Resp B/P (MAP) Pulse Ox O2 Delivery O2 Flow Rate FiO2 12/12/17 12:37 92 Nasal Cannula 3.00 12/12/17 12:37 98.0 72 16 129/61 (83) 92 12/12/17 09:44 Nasal Cannula 3.00 12/12/17 08:00 97.6 70 16 117/57 (77) 92 12/12/17 04:12 71 12/12/17 04:00 97.4 81 16 133/76 (95) 98 12/12/17 00:00 86 12/12/17 00:00 98.8 83 17 115/55 (75) 91 12/11/17 21:29 91 Nasal Cannula 3.00 12/11/17 20:00 98.7 81 17 119/60 (79) 90 12/11/17 20:00 76 12/11/17 18:18 Nasal Cannula 3.00 I/O 12/11/17 12/11/17 12/11/17 12/12/17 12/12/17 12/12/17 07:00 15:00 23:00 07:00 15:00 23:00 Intake Total 300 ml 300 ml 360 ml Output Total 700 ml 650 ml 700 ml 1000 ml Balance -400 ml -350 ml -340 ml -1000 ml Intake Oral 300 ml 300 ml 360 ml Output Urine Total 700 ml 650 ml 700 ml Hemodialysis 1000 ml # Bowel Movements 0 0 Result Diagram: 12/10/17 0356 12/12/17 0638 Objective Remarks GENERAL: This is a well-nourished, well-developed patient, in no apparent distress. CARDIOVASCULAR: RRR, systolic murmur 3 out of 6 RESPIRATORY: Diminished breath sounds with bilateral crackles GASTROINTESTINAL: Abdomen soft, non-tender, nondistended. Positive bowel sounds MUSCULOSKELETAL: Extremities without clubbing, cyanosis, or edema. Pedal pulses appreciated NEUROLOGICAL: Awake and alert. Moves all extremity. Normal speech.no focal neurological deficit A/P Problem List: (1) Acute on chronic renal failure ICD Code: N17.9 - Acute kidney failure, unspecified; N18.9 - Chronic kidney disease, unspecified (2) SVT (supraventricular tachycardia) ICD Code: I47.1 - Supraventricular tachycardia (3) HTN (hypertension) ICD Code: I10 - Essential (primary) hypertension Status: Acute (4) Respiratory failure, acute ICD Code: J96.00 - Acute respiratory failure, unspecified whether with hypoxia or hypercapnia (5) DM (diabetes mellitus) ICD Code: E11.9 - Type 2 diabetes mellitus without complications Status: Acute Assessment and Plan 12/10: Continue ongoing management with hemodialysis per nephrology, heart rate control per cardiology, Repeat CBC BMP in a.m., monitor temperature, blood pressure 12/11: Still on O2 nasal cannula 3 L today from 5 L yesterday, he will have hemodialysis today, continue PT, IS, heart rate is stable, transferred to [facility] floor 12/12: Still on 4 L nasal cannula, he had hemodialysis today, chest x-ray showing some improvement of the lung edema, continue weaning down oxygen hopefully will improve with hemodialysis, may expect discharge on oxygen at home A/P: PREET, on Chronic kidney disease: Nephrology on board, on hemodialysis status post PermCath placed, CVA consulted for AV fistula SVT: Cardiac enzymes negative no ST changes status post adenosine and metoprolol in ED, cardiology consulted, continue metoprolol and monitor telemetry 2D echo with normal ejection fraction of 55% trace MR and mild AR Hypertension: Continue amlodipine Respiratory failure acute: Secondary to pulmonary edema fluid overload on top of COPD, continue dialysis, continue oxygen supplement, continue Symbicort Diabetes mellitus, type II: Continue Accu-Chek with insulin sliding scale A1c is 5.8 Discharge Planning awaiting insurance author for HD prior to dc and improve o2 sat and oxygen weaned off CM working on HD arrangement and authorization , to notify me when approved Problem Qualifiers (1) Respiratory failure, acute: Qualified Codes: J96.01 - Acute respiratory failure with hypoxia Anabela Clarke MD Dec 12, 2017 17:12
[2017-12-12] MEDS: CHLORHEXIDINE GLUCONATE 2 % 1 PACK (2 CLOTHS)(taper/protocol) TOPICAL SCH (20:45)
[2017-12-12] MEDS: ATORVASTATIN 80 MG TAB PO SCH (20:51)
[2017-12-13] VITALS (8 sets, daily range): BP systolic 106–135; BP diastolic 53–63; PULSE 64–81; RESP 12–17; TEMP 97.2–98.1; O2SAT 92–98
[2017-12-13] MEDS: LACTULOSE SYRUP 20 GM/30 ML CUP PO PRN (06:05)
[2017-12-13] MEDS: ACETAMINOPHEN/HYDROcodone 325 MG/5 MG TAB PO PRN ×2 (06:05→21:48)
[2017-12-13] MEDS: INSULIN ASPART SUPPLEMENTAL SCALE SQ SCH ×4 (07:43→21:48)
[2017-12-13] MEDS: FUROSEMIDE 40 MG/4 ML VIAL IV PUSH SCH (07:44)
[2017-12-13] MEDS: SODIUM CHLORIDE 0.9% FLUSH 10 ML FLUSH IV FLUSH SCH ×2 (07:44→21:47)
[2017-12-13] MEDS: BUDESONIDE-FORMOTEROL 160/4.5 MCG INHALER INH SCH ×2 (07:44→21:47)
[2017-12-13] MEDS: CARVEDILOL 3.125 MG TAB PO SCH ×2 (07:45→21:47)
--- NOTE | 2017-12-13 15:13 | HHI.NPPN ---
Subjective Renal Failure: Chronic, Stage V Interval History He is doing well. Has no specific complaints. Complains of dizziness. Also complains of weakness. Review of Systems General Constitutional: Fatigue Objective Data Data Vital Signs Date Time Temp Pulse Resp B/P (MAP) Pulse Ox O2 Delivery O2 Flow Rate FiO2 12/13/17 14:52 95 Nasal Cannula 4.00 12/13/17 12:00 97.2 64 17 106/58 (74) 98 12/13/17 08:00 97.8 76 16 135/63 (87) 95 12/13/17 07:00 95 Nasal Cannula 4.00 12/13/17 04:00 98.1 81 17 114/53 (73) 92 12/13/17 04:00 75 12/13/17 00:00 74 12/13/17 00:00 98.0 79 17 126/61 (82) 92 12/12/17 20:49 94 Nasal Cannula 4.00 12/12/17 20:14 71 12/12/17 20:00 97.5 71 17 116/59 (78) 94 12/12/17 17:32 98.5 73 17 125/63 (83) 91 -: 12/10/17 0356 12/12/17 0638 Tubes & Lines: Perma-Cath Physical Exam General Appearance: Well Developed, Well Nourished, Comfortable Eyes Eye Exam: Pupils Equal, Pupils Reactive Throat Throat Exam: Oral Mucosa [employer] & Moist Pulmonary Resp Exam: Breath Sounds Equal, No Distress, Crackles Cardiology CV Exam: Regular, Normal Sinus Rhythm, Good Perfusion Gastrointestinal/Abdomen GI Exam: Soft, Non-Tender, Bowel Sounds Present Musculoskeletal MS Exam: Joints Intact, Normal Gait, Normal Tone Integumentary Skin Exam: Warm, Dry, Intact Extremeties Extremities Exam: No Edema, Pedal Pulses Palpable Neurologic Neuro Exam: Alert, Awake, Oriented, Speech Clear, Moving All Extremities Psychiatric Psych Exam: Appropriate Responses Assessment/Plan Discussed Condition With: Patient Assessment Summary: Fluid/Volume Overload, Hypertension, End Stage Renal Disease Problem List: (1) Chronic kidney disease, stage 5 ICD Codes: N18.5 - Chronic kidney disease, stage 5 Plan: He has reached ESRD Successful PermCath placement 12/09 Transitioned to MWF HD. Carefully monitor fluid and electrolyte status. Repeat labs intermittently. UF as tolerated with HD. Avoid Gadolinium and IVF administration. Vein mapping done, vascular has evaluated. AVF to be placed outpatient in 1-2 weeks. He will be at [facility], chair time 3:30 pm. He will have transportation Pending [facility] approval prior to discharge, appreciate assistance. (2) HTN (hypertension) ICD Codes: I10 - Essential (primary) hypertension Status: Acute Plan: BP is low normal. Stop Amlodipine. Needs fluid removal with dialysis. Change to oral Furosemide in preparation of discharge. (3) Diabetes mellitus ICD Codes: E11.9 - Type 2 diabetes mellitus without complications Status: Acute Plan: insulin coverage to maintain blood glucose between 140 and 180 (4) Supraventricular tachycardia ICD Codes: I47.1 - Supraventricular tachycardia Status: Acute Plan: converted to NSR. Cardiology has evaluated Plan patient was seen and examined. He can be discharged if outpatient dialysis arrangements are complete. Awaiting approval for VA insurance. Eduardo Salvador MD Dec 13, 2017 15:13
--- NOTE | 2017-12-13 15:48 | HHI.PR ---
Subjective Remarks Resting comfortably in bed No event overnight Denied chest and or short of breath No fever or chills Objective Vitals Vital Signs Date Time Temp Pulse Resp B/P (MAP) Pulse Ox O2 Delivery O2 Flow Rate FiO2 12/13/17 14:52 95 Nasal Cannula 4.00 12/13/17 12:00 97.2 64 17 106/58 (74) 98 12/13/17 08:00 97.8 76 16 135/63 (87) 95 12/13/17 07:00 95 Nasal Cannula 4.00 12/13/17 04:00 98.1 81 17 114/53 (73) 92 12/13/17 04:00 75 12/13/17 00:00 74 12/13/17 00:00 98.0 79 17 126/61 (82) 92 12/12/17 20:49 94 Nasal Cannula 4.00 12/12/17 20:14 71 12/12/17 20:00 97.5 71 17 116/59 (78) 94 12/12/17 17:32 98.5 73 17 125/63 (83) 91 I/O 12/12/17 12/12/17 12/12/17 12/13/17 12/13/17 12/13/17 07:00 15:00 23:00 07:00 15:00 23:00 Intake Total 360 ml 960 ml 280 ml Output Total 700 ml 1950 ml 300 ml Balance -340 ml -990 ml -20 ml Intake Oral 360 ml 960 ml 280 ml Output Urine Total 700 ml 950 ml 300 ml Hemodialysis 1000 ml Result Diagram: 12/10/17 0356 12/12/17 0638 Objective Remarks GENERAL: This is a well-nourished, well-developed patient, in no apparent distress. CARDIOVASCULAR: RRR, systolic murmur 3 out of 6 RESPIRATORY: Diminished breath sounds with bilateral crackles GASTROINTESTINAL: Abdomen soft, non-tender, nondistended. Positive bowel sounds MUSCULOSKELETAL: Extremities without clubbing, cyanosis, or edema. Pedal pulses appreciated NEUROLOGICAL: Awake and alert. Moves all extremity. Normal speech.no focal neurological deficit A/P Problem List: (1) Acute on chronic renal failure ICD Code: N17.9 - Acute kidney failure, unspecified; N18.9 - Chronic kidney disease, unspecified (2) SVT (supraventricular tachycardia) ICD Code: I47.1 - Supraventricular tachycardia (3) HTN (hypertension) ICD Code: I10 - Essential (primary) hypertension Status: Acute (4) Respiratory failure, acute ICD Code: J96.00 - Acute respiratory failure, unspecified whether with hypoxia or hypercapnia (5) DM (diabetes mellitus) ICD Code: E11.9 - Type 2 diabetes mellitus without complications Status: Acute Assessment and Plan 12/10: Continue ongoing management with hemodialysis per nephrology, heart rate control per cardiology, Repeat CBC BMP in a.m., monitor temperature, blood pressure 12/11: Still on O2 nasal cannula 3 L today from 5 L yesterday, he will have hemodialysis today, continue PT, IS, heart rate is stable, transferred to [facility] floor 12/12: Still on 4 L nasal cannula, he had hemodialysis today, chest x-ray showing some improvement of the lung edema, continue weaning down oxygen hopefully will improve with hemodialysis, may expect discharge on oxygen at home 12/13: Continue monitor O2 saturation wean down oxygen, expecting improvement on hemodialysis A/P: PREET, on Chronic kidney disease: Nephrology on board, on hemodialysis status post PermCath placed, CVA consulted for AV fistula SVT: Cardiac enzymes negative no ST changes status post adenosine and metoprolol in ED, cardiology consulted, continue metoprolol and monitor telemetry 2D echo with normal ejection fraction of 55% trace MR and mild AR Hypertension: Continue amlodipine Respiratory failure acute: Secondary to pulmonary edema fluid overload on top of COPD, continue dialysis, continue oxygen supplement, continue Symbicort Diabetes mellitus, type II: Continue Accu-Chek with insulin sliding scale A1c is 5.8 Discharge Planning awaiting insurance author for HD prior to dc and improve o2 sat and oxygen weaned off CM working on HD arrangement and authorization , to notify me when approved Problem Qualifiers (1) Respiratory failure, acute: Qualified Codes: J96.01 - Acute respiratory failure with hypoxia Anabela Clarke MD Dec 13, 2017 15:48
[2017-12-13] MEDS: VITAMIN B CMPLX/VITC/FOLIC AC CAP PO SCH (16:40)
[2017-12-13] MEDS: ATORVASTATIN 80 MG TAB PO SCH (21:48)
[2017-12-14] VITALS (8 sets, daily range): BP systolic 115–154; BP diastolic 58–72; PULSE 66–76; RESP 14–19; TEMP 97.4–98.5; O2SAT 95–98
[2017-12-14] MEDS: INSULIN ASPART SUPPLEMENTAL SCALE SQ SCH ×4 (08:00→21:00)
[2017-12-14] MEDS: VITAMIN B CMPLX/VITC/FOLIC AC CAP PO SCH (09:00)
[2017-12-14] MEDS: SENNOSIDES 8.6 MG TAB PO PRN ×2 (09:59→21:51)
[2017-12-14] MEDS: CARVEDILOL 3.125 MG TAB PO SCH ×2 (09:59→21:51)
[2017-12-14] MEDS: FUROSEMIDE 80 MG TAB PO SCH (10:00)
[2017-12-14] MEDS: SODIUM CHLORIDE 0.9% FLUSH 10 ML FLUSH IV FLUSH SCH ×2 (10:01→21:51)
[2017-12-14] MEDS: MAGNESIUM HYDROXIDE SUSP 30 ML CUP PO PRN ×2 (10:01→21:52)
[2017-12-14] MEDS: BUDESONIDE-FORMOTEROL 160/4.5 MCG INHALER INH SCH ×2 (10:02→21:51)
--- NOTE | 2017-12-14 10:15 | HHI.NPPN ---
Subjective Renal Failure: Chronic, Stage V Interval History No new issues. Remains on 4 liters of oxygen. Denies chest pain or shortness of breath. Review of Systems General Constitutional: Fatigue Objective Data Data Vital Signs Date Time Temp Pulse Resp B/P (MAP) Pulse Ox O2 Delivery O2 Flow Rate FiO2 12/14/17 04:00 98.2 76 14 115/58 (77) 95 12/14/17 03:50 70 12/14/17 00:00 97.6 74 16 131/63 (85) 96 12/14/17 00:00 71 12/13/17 20:10 Nasal Cannula 4.00 50 12/13/17 20:00 97.6 73 12 129/61 (83) 95 12/13/17 19:55 Nasal Cannula 4.00 12/13/17 19:55 73 12/13/17 16:00 97.6 68 16 107/55 (72) 98 12/13/17 14:52 95 Nasal Cannula 4.00 12/13/17 12:00 97.2 64 17 106/58 (74) 98 -: 12/10/17 0356 12/12/17 0638 Tubes & Lines: Perma-Cath Physical Exam General Appearance: Well Developed, Well Nourished, Comfortable Eyes Eye Exam: Pupils Equal, Pupils Reactive Throat Throat Exam: Oral Mucosa [place] & Moist Pulmonary Resp Exam: Breath Sounds Equal, No Distress, Crackles Cardiology CV Exam: Regular, Normal Sinus Rhythm, Good Perfusion Gastrointestinal/Abdomen GI Exam: Soft, Non-Tender, Bowel Sounds Present Musculoskeletal MS Exam: Joints Intact, Normal Gait, Normal Tone Integumentary Skin Exam: Warm, Dry, Intact Extremeties Extremities Exam: No Edema, Pedal Pulses Palpable Neurologic Neuro Exam: Alert, Awake, Oriented, Speech Clear, Moving All Extremities Psychiatric Psych Exam: Appropriate Responses Assessment/Plan Discussed Condition With: Patient Assessment Summary: Fluid/Volume Overload, Hypertension, End Stage Renal Disease Problem List: (1) Chronic kidney disease, stage 5 ICD Codes: N18.5 - Chronic kidney disease, stage 5 Plan: He has reached ESRD Successful PermCath placement 12/09 Transitioned to MWF HD. Carefully monitor fluid and electrolyte status. Repeat labs intermittently. UF as tolerated with HD. Avoid Gadolinium and IVF administration. Vein mapping done, vascular has evaluated. AVF to be placed outpatient in 1-2 weeks. He will be at [facility], [facility], chair time 3:30 pm. He will have transportation Pending [facility] approval prior to discharge, appreciate assistance. (2) HTN (hypertension) ICD Codes: I10 - Essential (primary) hypertension Status: Acute Plan: BP is low normal. Stop Amlodipine. Needs fluid removal with dialysis. Change to oral Furosemide in preparation of discharge. (3) Diabetes mellitus ICD Codes: E11.9 - Type 2 diabetes mellitus without complications Status: Acute Plan: insulin coverage to maintain blood glucose between 140 and 180 (4) Supraventricular tachycardia ICD Codes: I47.1 - Supraventricular tachycardia Status: Acute Plan: converted to NSR. Cardiology has evaluated Plan consult PT/OT if not done. Taper down oxygen as tolerated. Eduardo Salvador MD Dec 14, 2017 10:15
--- NOTE | 2017-12-14 11:38 | HHI.PR ---
Subjective Remarks Pt complains of being constipated. denies any CP/SOB/N/V Discussed w RN, she gave him some stool softeners and laxative today Objective Vitals Vital Signs Date Time Temp Pulse Resp B/P (MAP) Pulse Ox O2 Delivery O2 Flow Rate FiO2 12/14/17 10:40 97.4 66 18 136/68 (90) 98 12/14/17 04:00 98.2 76 14 115/58 (77) 95 12/14/17 03:50 70 12/14/17 00:00 97.6 74 16 131/63 (85) 96 12/14/17 00:00 71 12/13/17 20:10 Nasal Cannula 4.00 50 12/13/17 20:00 97.6 73 12 129/61 (83) 95 12/13/17 19:55 Nasal Cannula 4.00 12/13/17 19:55 73 12/13/17 16:00 97.6 68 16 107/55 (72) 98 12/13/17 14:52 95 Nasal Cannula 4.00 12/13/17 12:00 97.2 64 17 106/58 (74) 98 I/O 12/13/17 12/13/17 12/13/17 12/14/17 12/14/17 12/14/17 07:00 15:00 23:00 07:00 15:00 23:00 Intake Total 280 ml 540 ml 500 ml Output Total 300 ml 200 ml 200 ml Balance -20 ml 340 ml -200 ml 500 ml Intake Oral 280 ml 540 ml 500 ml Output Urine Total 300 ml 200 ml 200 ml # Bowel Movements 0 Result Diagram: 12/10/17 0356 12/12/17 0638 Imaging Last Impressions Chest X-Ray 12/12/17 0000 Signed Impressions: CONCLUSION: Interval improvement with less edema. Upper Extremity Ultrasound 12/09/17 0000 Signed Impressions: CONCLUSION: 1. Central Venous Line 12/09/17 0000 Signed Impressions: CONCLUSION: 1. Uncomplicated catheter removal. Catheter Placement X-Ray 12/09/17 0000 Signed Impressions: CONCLUSION: 1. Uncomplicated PermaCath placement as above. Renal Ultrasound 12/08/17 0000 Signed Impressions: CONCLUSION: Multiple simple cysts in both kidneys. Objective Remarks GENERAL: laying in bed CARDIOVASCULAR: RRR, systolic murmur 2 out of 6 RESPIRATORY: Diminished breath sounds with bilateral crackles GASTROINTESTINAL: Abdomen soft, non-tender, nondistended. Positive bowel sounds MUSCULOSKELETAL: Extremities without edema. Pedal pulses appreciated NEUROLOGICAL: Awake and alert. Moves all extremity. Normal speech. A/P Problem List: (1) Acute on chronic renal failure ICD Code: N17.9 - Acute kidney failure, unspecified; N18.9 - Chronic kidney disease, unspecified (2) SVT (supraventricular tachycardia) ICD Code: I47.1 - Supraventricular tachycardia (3) HTN (hypertension) ICD Code: I10 - Essential (primary) hypertension Status: Acute (4) Respiratory failure, acute ICD Code: J96.00 - Acute respiratory failure, unspecified whether with hypoxia or hypercapnia (5) DM (diabetes mellitus) ICD Code: E11.9 - Type 2 diabetes mellitus without complications Status: Acute Assessment and Plan PREET, on Chronic kidney disease: Nephrology on board, on hemodialysis status post PermCath placed, CV sx evaluated the patient and plans on outpatient f/u with AVF planning. Appreciate assistance. SVT: Cardiac enzymes negative no ST changes status post adenosine and metoprolol in ED, cardiology evaluated the patient, continue metoprolol and monitor telemetry 2D echo with normal ejection fraction of 55% trace MR and mild AR Hypertension: Continue amlodipine Respiratory failure acute: Secondary to pulmonary edema fluid overload on top of COPD, continue dialysis, continue oxygen supplement, continue Symbicort. ordered walk test. Diabetes mellitus, type II: Continue Accu-Chek with insulin sliding scale A1c is 5.8 constipation: stool softeners/laxatives available prn. encourage ambulation PT consulted. Discharge Planning CM assisting w d/c planning. awaiting auth for outpatient HD from [place] walk test pending Problem Qualifiers (1) Respiratory failure, acute: Qualified Codes: J96.01 - Acute respiratory failure with hypoxia Naomi Peoples MD Dec 14, 2017 11:38
[2017-12-14] MEDS: ATORVASTATIN 80 MG TAB PO SCH (21:51)
[2017-12-14] MEDS: LACTULOSE SYRUP 20 GM/30 ML CUP PO PRN (21:52)
[2017-12-14] MEDS: ACETAMINOPHEN/HYDROcodone 325 MG/5 MG TAB PO PRN (21:52)
[2017-12-15] VITALS (9 sets, daily range): BP systolic 116–132; BP diastolic 57–62; PULSE 59–74; RESP 16–18; TEMP 97.2–98.1; O2SAT 95–97
[2017-12-15] MEDS: INSULIN ASPART SUPPLEMENTAL SCALE SQ SCH ×4 (08:00→21:31)
[2017-12-15] MEDS: FUROSEMIDE 80 MG TAB PO SCH (08:36)
[2017-12-15] MEDS: CARVEDILOL 3.125 MG TAB PO SCH ×2 (08:36→21:30)
[2017-12-15] MEDS: VITAMIN B CMPLX/VITC/FOLIC AC CAP PO SCH (08:37)
[2017-12-15] MEDS: SODIUM CHLORIDE 0.9% FLUSH 10 ML FLUSH IV FLUSH SCH ×2 (08:37→21:31)
[2017-12-15] MEDS: BUDESONIDE-FORMOTEROL 160/4.5 MCG INHALER INH SCH ×2 (08:38→21:32)
--- NOTE | 2017-12-15 09:33 | HHI.NPPN ---
Subjective Renal Failure: Chronic, Stage V Interval History He is scheduled for AVF placement Friday morning. He feels his strength is improving. (Jyoti Ceron) Review of Systems General Constitutional: Fatigue (Jyoti Ceron) Objective Data Data Vital Signs Date Time Temp Pulse Resp B/P (MAP) Pulse Ox O2 Delivery O2 Flow Rate FiO2 12/15/17 04:00 97.2 67 16 116/59 (78) 95 12/15/17 00:00 97.6 73 16 117/57 (77) 96 12/15/17 00:00 74 12/14/17 21:52 Nasal Cannula 4.00 50 12/14/17 20:00 75 12/14/17 19:20 98.5 75 19 133/63 (86) 97 12/14/17 17:01 3.00 12/14/17 13:54 97.5 72 18 154/72 (99) 12/14/17 10:40 97.4 66 18 136/68 (90) 98 (Jyoti Ceron) -: 12/12/17 0638 Tubes & Lines: Perma-Cath (Jyoti Ceron) Physical Exam General Appearance: Well Developed, Well Nourished, Comfortable (Jyoti Ceron) Eyes Eye Exam: Pupils Equal, Pupils Reactive (Jyoti Ceron) Throat Throat Exam: Oral Mucosa [place] & Moist (Jyoti Ceron) Pulmonary Resp Exam: Breath Sounds Equal, No Distress, Crackles Resp Remarks bibasilar rales (Jyoti Ceron) Cardiology CV Exam: Regular, Normal Sinus Rhythm, Good Perfusion (Jyoti Ceron) Gastrointestinal/Abdomen GI Exam: Soft, Non-Tender, Bowel Sounds Present (Jyoti Ceron) Musculoskeletal MS Exam: Joints Intact, Normal Gait, Normal Tone (Jyoti Ceron) Integumentary Skin Exam: Warm, Dry, Intact (Jyoti Ceron) Extremeties Extremities Exam: No Edema, Pedal Pulses Palpable (Jyoti Ceron) Neurologic Neuro Exam: Alert, Awake, Oriented, Speech Clear, Moving All Extremities (Jyoti Ceron) Psychiatric Psych Exam: Appropriate Responses (Jyoti Ceron) Assessment/Plan Discussed Condition With: Patient Assessment Summary: Fluid/Volume Overload, Hypertension, End Stage Renal Disease Problem List: (1) Chronic kidney disease, stage 5 ICD Codes: N18.5 - Chronic kidney disease, stage 5 Plan: He has reached ESRD Successful PermCath placement 12/09 Transitioned to MWF HD. Due for treatment today. Carefully monitor fluid and electrolyte status. Repeat labs ordered. UF as tolerated with HD. Avoid Gadolinium and IVF administration. Vein mapping done, vascular has evaluated. AVF to be placed Friday prior to discharge per Dr. Hutson. He will be at [facility], chair time 3:30 pm. He will have transportation, first outpatient treatment will be on Friday. (2) HTN (hypertension) ICD Codes: I10 - Essential (primary) hypertension Status: Acute Plan: BP is low-normal. On Lasix and Coreg. (3) Diabetes mellitus ICD Codes: E11.9 - Type 2 diabetes mellitus without complications Status: Acute Plan: insulin coverage to maintain blood glucose between 140 and 180 (4) Supraventricular tachycardia ICD Codes: I47.1 - Supraventricular tachycardia Status: Acute Plan: converted to NSR. Cardiology has evaluated Plan (Jyoti Ceron) Plan patient was seen and examined. Taper off oxygen. AVF surgery on Friday. Possible discharge on Friday after surgery and HD. Ordered physical therapy. (Eduardo Salvador MD) Jyoti Ceron Dec 15, 2017 09:32 Eduardo Salvador MD Dec 16, 2017 10:38
--- NOTE | 2017-12-15 11:48 | HHI.PR ---
Subjective Remarks Pt denies any pain, SOB, n/v states he will be getting his procedure on friday Objective Vitals Vital Signs Date Time Temp Pulse Resp B/P (MAP) Pulse Ox O2 Delivery O2 Flow Rate FiO2 12/15/17 10:46 96 Nasal Cannula 2.00 12/15/17 08:00 96 Nasal Cannula 4.00 50 12/15/17 04:00 97.2 67 16 116/59 (78) 95 12/15/17 00:00 97.6 73 16 117/57 (77) 96 12/15/17 00:00 74 12/14/17 21:52 Nasal Cannula 4.00 50 12/14/17 20:00 75 12/14/17 19:20 98.5 75 19 133/63 (86) 97 12/14/17 17:01 3.00 12/14/17 13:54 97.5 72 18 154/72 (99) I/O 12/14/17 12/14/17 12/14/17 12/15/17 12/15/17 12/15/17 07:00 15:00 23:00 07:00 15:00 23:00 Intake Total 500 ml 720 ml Output Total 350 ml Balance 500 ml 370 ml Intake Oral 500 ml 720 ml Output Urine Total 350 ml # Bowel Movements 2 Result Diagram: 12/12/17 0638 Imaging Last Impressions Chest X-Ray 12/12/17 0000 Signed Impressions: CONCLUSION: Interval improvement with less edema. Upper Extremity Ultrasound 12/09/17 0000 Signed Impressions: CONCLUSION: 1. Central Venous Line 12/09/17 0000 Signed Impressions: CONCLUSION: 1. Uncomplicated catheter removal. Catheter Placement X-Ray 12/09/17 0000 Signed Impressions: CONCLUSION: 1. Uncomplicated PermaCath placement as above. Renal Ultrasound 12/08/17 0000 Signed Impressions: CONCLUSION: Multiple simple cysts in both kidneys. Objective Remarks GENERAL: laying in bed CARDIOVASCULAR: RRR, systolic murmur 2 out of 6 RESPIRATORY: Diminished breath sounds with bilateral crackles GASTROINTESTINAL: Abdomen soft, non-tender, nondistended. Positive bowel sounds A/P Problem List: (1) Acute on chronic renal failure ICD Code: N17.9 - Acute kidney failure, unspecified; N18.9 - Chronic kidney disease, unspecified (2) SVT (supraventricular tachycardia) ICD Code: I47.1 - Supraventricular tachycardia (3) HTN (hypertension) ICD Code: I10 - Essential (primary) hypertension Status: Acute (4) Respiratory failure, acute ICD Code: J96.00 - Acute respiratory failure, unspecified whether with hypoxia or hypercapnia (5) DM (diabetes mellitus) ICD Code: E11.9 - Type 2 diabetes mellitus without complications Status: Acute Assessment and Plan PREET, on Chronic kidney disease: Nephrology on board, on hemodialysis status post PermCath placed, CV sx evaluated the patient and plans on proceeding w AVF placement on friday. plan is for pt to get HD friday and be discharged after. Appreciate assistance. SVT: Cardiac enzymes negative no ST changes status post adenosine and metoprolol in ED, cardiology evaluated the patient, continue metoprolol and monitor telemetry 2D echo with normal ejection fraction of 55% trace MR and mild AR Hypertension: Continue amlodipine Respiratory failure acute: Secondary to pulmonary edema fluid overload on top of COPD, continue dialysis, continue oxygen supplement, continue Symbicort. ordered walk test. Diabetes mellitus, type II: Continue Accu-Chek with insulin sliding scale A1c is 5.8 constipation: stool softeners/laxatives available prn. encourage ambulation PT consulted. Discharge Planning CM assisting w d/c planning. scheduled for AVF friday then d/c after HD failed walk test, will order home O2. awaiting final recs from PT Problem Qualifiers (1) Respiratory failure, acute: Qualified Codes: J96.01 - Acute respiratory failure with hypoxia Naomi Peoples MD Dec 15, 2017 11:48
[2017-12-15] MEDS ORDERED: OXYGENDME NAS.CANULA (11:54)
[2017-12-15] MEDS: ACETAMINOPHEN/HYDROcodone 325 MG/5 MG TAB PO PRN (12:26)
[2017-12-15 12:51] LABS: ALBUMIN 2.8 GM/DL (3.4-5.0); BICARBONATE 28.3 MEQ/L (21.0-32.0); CALCIUM 8.6 MG/DL (8.5-10.1); CREATININE 8.04 MG/DL (0.60-1.30); PHOSPHORUS 4.5 MG/DL (2.5-4.9)
[2017-12-15] MEDS: GENTAMICIN SULFATE 20 MG/2 ML VIAL OTHER PRN (17:05)
[2017-12-15] MEDS: HEPARIN SODIUM - IV 10,000 UNITS/10 ML VIAL PRN (17:05)
[2017-12-15] MEDS: ATORVASTATIN 80 MG TAB PO SCH (21:31)
[2017-12-16] VITALS (8 sets, daily range): BP systolic 124–161; BP diastolic 56–72; PULSE 67–81; RESP 16–17; TEMP 97.2–98; O2SAT 94–97
[2017-12-16 07:26] LABS: BICARBONATE 28.6 MEQ/L (21.0-32.0); CALCIUM 8.5 MG/DL (8.5-10.1); CREATININE 5.88 MG/DL (0.60-1.30); PHOSPHORUS 4.2 MG/DL (2.5-4.9)
[2017-12-16] MEDS: INSULIN ASPART SUPPLEMENTAL SCALE SQ SCH ×4 (07:55→21:25)
[2017-12-16] MEDS: VITAMIN B CMPLX/VITC/FOLIC AC CAP PO SCH (09:00)
[2017-12-16] MEDS: CARVEDILOL 3.125 MG TAB PO SCH ×2 (09:50→21:25)
[2017-12-16] MEDS: SODIUM CHLORIDE 0.9% FLUSH 10 ML FLUSH IV FLUSH SCH ×2 (09:51→21:25)
[2017-12-16] MEDS: FUROSEMIDE 80 MG TAB PO SCH (09:51)
[2017-12-16] MEDS: BUDESONIDE-FORMOTEROL 160/4.5 MCG INHALER INH SCH ×2 (09:52→21:26)
--- NOTE | 2017-12-16 10:31 | HHI.NPPN ---
Subjective Renal Failure: Chronic, Stage V Interval History AVF surgery in AM tomorrow, consent obtained. No new concerns. Discharge will be tomorrow. (Jyoti Ceron) Review of Systems General Constitutional: Fatigue (Jyoti Ceron) Objective Data Data Vital Signs Date Time Temp Pulse Resp B/P (MAP) Pulse Ox O2 Delivery O2 Flow Rate FiO2 12/16/17 04:40 97.2 68 17 129/65 (86) 96 12/16/17 00:42 68 12/16/17 00:30 98.0 67 17 124/61 (82) 97 12/15/17 20:15 98.1 71 17 129/60 (83) 97 12/15/17 20:13 70 12/15/17 19:31 Nasal Cannula 4.00 12/15/17 17:43 96 Nasal Cannula 2.00 12/15/17 16:00 59 12/15/17 12:00 71 12/15/17 12:00 97.3 60 16 132/62 (85) 96 12/15/17 10:46 96 Nasal Cannula 2.00 (Jyoti Ceron) -: 12/16/17 0615 Tubes & Lines: Perma-Cath (Jyoti Ceron) Physical Exam General Appearance: Well Developed, Well Nourished, Comfortable (Jyoti Ceron) Eyes Eye Exam: Pupils Equal, Pupils Reactive (Jyoti Ceron) Throat Throat Exam: Oral Mucosa [place] & Moist (Jyoti Ceron) Pulmonary Resp Exam: Breath Sounds Equal, No Distress, Crackles Resp Remarks bibasilar rales (Jyoti Ceron) Cardiology CV Exam: Regular, Normal Sinus Rhythm, Good Perfusion (Jyoti Ceron) Gastrointestinal/Abdomen GI Exam: Soft, Non-Tender, Bowel Sounds Present (Jyoti Ceron) Musculoskeletal MS Exam: Joints Intact, Normal Gait, Normal Tone (Jyoti Ceron) Integumentary Skin Exam: Warm, Dry, Intact (Jyoti Ceron) Extremeties Extremities Exam: No Edema, Pedal Pulses Palpable (Jyoti Ceron) Neurologic Neuro Exam: Alert, Awake, Oriented, Speech Clear, Moving All Extremities (Jyoti Ceron) Psychiatric Psych Exam: Appropriate Responses (Jyoti Ceron) Assessment/Plan Discussed Condition With: Patient Assessment Summary: Fluid/Volume Overload, Hypertension, End Stage Renal Disease Problem List: (1) Chronic kidney disease, stage 5 ICD Codes: N18.5 - Chronic kidney disease, stage 5 Plan: He has reached ESRD Successful PermCath placement 12/09 Transitioned to MWF HD. Tolerated dialysis yesterday Carefully monitor fluid and electrolyte status. UF as tolerated with HD. Avoid Gadolinium and IVF administration. Vein mapping done, vascular has evaluated. AVF to be placed tomorrow with Dr. Hutson. He will be at [facility], chair time 3:30 pm. He will have transportation, first outpatient treatment will be on Friday. (2) HTN (hypertension) ICD Codes: I10 - Essential (primary) hypertension Status: Acute Plan: BP is low-normal. On Lasix and Coreg. (3) Diabetes mellitus ICD Codes: E11.9 - Type 2 diabetes mellitus without complications Status: Acute Plan: insulin coverage to maintain blood glucose between 140 and 180 (4) Supraventricular tachycardia ICD Codes: I47.1 - Supraventricular tachycardia Status: Acute Plan: converted to NSR. Cardiology has evaluated Plan (Jyoti Ceron) Plan patient was seen and examined. Agree with above assessment and plan. We will give him a shortened treatment today to avoid hyperkalemia tomorrow before surgery. Start D10NS when he is NPO (Eduardo Salvador MD) Jyoti Ceron Dec 16, 2017 10:30 Eduardo Salvador MD Dec 16, 2017 11:11
--- NOTE | 2017-12-16 11:44 | PD.VS.PN ---
Pre-operative Note Pre-operative diagnosis: ESRD Planned procedure: Left UE AVF Interval History: 72M with a PMH of ESRD recently started HD Pt in need of HD access No prior hx of access attempts Palpable R/L radial pulses noted Labs: Laboratory Results Test 12/08/17 11:20 12/10/17 03:56 12/16/17 06:15 Prothromb Time International Ratio 1.2 RATIO Hematocrit 37.7 % (39.0-51.0) Hemoglobin 12.6 GM/DL (13.0-17.0) Mean Corpuscular Hemoglobin 28.9 PG (27.0-34.0) Mean Corpuscular Hemoglobin Concent 33.5 % (32.0-36.0) Mean Corpuscular Volume 86.2 FL (80.0-100.0) Mean Platelet Volume 9.2 FL (7.0-11.0) Platelet Count 179 TH/MM3 (150-450) Red Blood Count 4.37 MIL/MM3 (4.50-5.90) Red Cell Distribution Width 13.8 % (11.6-17.2) White Blood Count 7.0 TH/MM3 (4.0-11.0) Anion Gap 9 MEQ/L (5-15) Blood Urea Nitrogen 43 MG/DL (7-18) Creatinine 5.88 MG/DL (0.60-1.30) Random Glucose 123 MG/DL (74-106) Calcium Level 8.5 MG/DL (8.5-10.1) Phosphorus Level 4.2 MG/DL (2.5-4.9) Magnesium Level 3.0 MG/DL (1.5-2.5) Sodium Level 138 MEQ/L (136-145) Potassium Level 5.0 MEQ/L (3.5-5.1) Chloride Level 100 MEQ/L (98-107) Carbon Dioxide Level 28.6 MEQ/L (21.0-32.0) Imaging: Last Impressions Chest X-Ray 12/12/17 0000 Signed Impressions: CONCLUSION: Interval improvement with less edema. Upper Extremity Ultrasound 12/09/17 0000 Signed Impressions: CONCLUSION: 1. Central Venous Line 12/09/17 0000 Signed Impressions: CONCLUSION: 1. Uncomplicated catheter removal. Catheter Placement X-Ray 12/09/17 0000 Signed Impressions: CONCLUSION: 1. Uncomplicated PermaCath placement as above. Renal Ultrasound 12/08/17 0000 Signed Impressions: CONCLUSION: Multiple simple cysts in both kidneys. Operative site marked: Yes Consent: Informed consent has been obtained from Angel Constantino. I have explained the procedure in detail and discussed the risks, benefits, and potential complications. All questions have been answered. Lizz Puente Dec 16, 2017 11:44
--- NOTE | 2017-12-16 11:50 | PD.VS.PN ---
Subjective Subjective/Hospital Course Pt afebrile alert in NAD w/o complaints Pt scheduled for L UE AVF tomorrow (12/17/17) LEFT ARM Precautions- NO B/P readings or LAB draws Pt NPO after midnight Consent signed and placed in the chart Objective Vitals/I&O Date Time Temp Pulse Resp B/P (MAP) Pulse Ox O2 Delivery O2 Flow Rate FiO2 12/16/17 08:00 98.0 71 16 138/56 (83) 94 12/16/17 04:40 97.2 68 17 129/65 (86) 96 12/16/17 00:42 68 12/16/17 00:30 98.0 67 17 124/61 (82) 97 12/15/17 20:15 98.1 71 17 129/60 (83) 97 12/15/17 20:13 70 12/15/17 19:31 Nasal Cannula 4.00 12/15/17 17:43 96 Nasal Cannula 2.00 12/15/17 16:00 59 12/15/17 12:00 71 12/15/17 12:00 97.3 60 16 132/62 (85) 96 12/16/17 12/16/17 12/16/17 07:00 15:00 23:00 Intake Total 480 ml Output Total 500 ml Balance -20 ml Laboratory Laboratory Tests Test 12/15/17 11:53 12/16/17 06:15 Blood Urea Nitrogen 69 43 Creatinine 8.04 5.88 Random Glucose 190 123 Albumin 2.8 Calcium Level 8.6 8.5 Phosphorus Level 4.5 4.2 Sodium Level 133 138 Potassium Level 5.5 5.0 Chloride Level 95 100 Carbon Dioxide Level 28.3 28.6 Anion Gap 10 9 Estimat Glomerular Filtration Rate 7 10 Magnesium Level 3.0 Assessment and Plan Assessment: (1) CKD (chronic kidney disease) Status: Acute (2) Chronic kidney disease, stage 5 Problem Qualifiers (1) CKD (chronic kidney disease): Qualified Codes: N18.6 - End stage renal disease; Z99.2 - Dependence on renal dialysis Lizz Puente Dec 16, 2017 11:50
--- NOTE | 2017-12-16 11:55 | HHI.PR ---
Subjective Remarks Follow-up for ESRD now on dialysis, SVT, HTN, acute on chronic respiratory failure. Patient reports feeling slightly better again today. He believes that dialysis is helping his breathing. He does report continued mild shortness of breath with productive cough. Denies any fevers or chills. Denies any chest pains or palpitations. Planning for AV fistula at left upper extremity tomorrow. Patient is looking forward to going home soon. Objective Vitals Vital Signs Date Time Temp Pulse Resp B/P (MAP) Pulse Ox O2 Delivery O2 Flow Rate FiO2 12/16/17 08:00 98.0 71 16 138/56 (83) 94 12/16/17 04:40 97.2 68 17 129/65 (86) 96 12/16/17 00:42 68 12/16/17 00:30 98.0 67 17 124/61 (82) 97 12/15/17 20:15 98.1 71 17 129/60 (83) 97 12/15/17 20:13 70 12/15/17 19:31 Nasal Cannula 4.00 12/15/17 17:43 96 Nasal Cannula 2.00 12/15/17 16:00 59 12/15/17 12:00 71 12/15/17 12:00 97.3 60 16 132/62 (85) 96 I/O 12/15/17 12/15/17 12/15/17 12/16/17 12/16/17 12/16/17 07:00 15:00 23:00 07:00 15:00 23:00 Intake Total 720 ml 480 ml Output Total 350 ml 1500 ml 500 ml Balance 370 ml -1500 ml -20 ml Intake Oral 720 ml 480 ml Output Urine Total 350 ml 500 ml Hemodialysis 1500 ml # Bowel Movements 2 0 Result Diagram: 12/16/17 0615 Imaging Last Impressions Chest X-Ray 12/12/17 0000 Signed Impressions: CONCLUSION: Interval improvement with less edema. Upper Extremity Ultrasound 12/09/17 0000 Signed Impressions: CONCLUSION: 1. Central Venous Line 12/09/17 0000 Signed Impressions: CONCLUSION: 1. Uncomplicated catheter removal. Catheter Placement X-Ray 12/09/17 0000 Signed Impressions: CONCLUSION: 1. Uncomplicated PermaCath placement as above. Renal Ultrasound 12/08/17 0000 Signed Impressions: CONCLUSION: Multiple simple cysts in both kidneys. Objective Remarks GENERAL: Well-nourished, well-developed pleasant elderly male patient in [facility]. SKIN: Warm and dry. No rash. Permacath at right upper chest. HEENT: Normocephalic. Atraumatic. Pupils equal and round. Mucous membranes pink and moist. CARDIOVASCULAR: Regular rate and rhythm. 2/6 systolic murmur. RESPIRATORY: No accessory muscle use. Breath sounds diminished at bilateral bases. Breath sounds equal bilaterally. GASTROINTESTINAL: Abdomen soft, non-tender, nondistended. Normoactive bowel sounds x4. MUSCULOSKELETAL: No obvious deformities. Extremities without clubbing, cyanosis , or edema. NEUROLOGICAL: Awake and alert. No obvious cranial nerve deficits. Motor grossly within normal limits. Moving all extremities spontaneously. Normal speech. Procedures 12/09/17 -interventional radiologist Dr. Fortunato Kumar placed PermCath via the right IJ Medications and IVs Current Medications Medications (Trade) Dose Ordered Sig/Edgar Route Start Time Stop Time Status Last Admin (NS Flush) 2 ml UNSCH PRN IV FLUSH 12/08/17 13:30 (NS Flush) 2 ml BID IV FLUSH 12/08/17 21:00 12/16/17 09:51 (Tylenol) 650 mg Q4H PRN PO 12/08/17 13:30 (Zofran Odt) 4 mg Q6H PRN PO 12/08/17 16:00 12/11/17 08:46 (Heparin Inj) 5,000 units Q12H SQ 12/08/17 16:00 Future Hold 12/09/17 04:50 (Narcan Inj) 0.4 mg UNSCH PRN IV PUSH 12/08/17 13:30 (Milk Of Magnesia Liq) 30 ml Q12H PRN PO 12/08/17 13:30 12/14/17 21:52 (Senokot) 17.2 mg Q12H PRN PO 12/08/17 13:30 12/14/17 21:51 (Dulcolax Supp) 10 mg DAILY PRN RECTAL 12/08/17 13:30 12/14/17 21:52 (Lactulose Liq) 30 ml DAILY PRN PO 12/08/17 13:30 12/14/17 21:52 (D50w (Vial) Inj) 50 ml UNSCH PRN IV PUSH 12/08/17 13:30 (Glucagon Inj) 1 mg UNSCH PRN OTHER 12/08/17 13:30 (NovoLOG SUPPLEMENTAL SCALE) 1 ACHS SLIDING SCALE SQ 12/08/17 17:00 12/15/17 21:31 (Lipitor) 80 mg HS PO 12/08/17 21:00 12/15/17 21:31 (Symbicort 160-4.5 Mcg Inh) 2 puff Q12HR INH 12/08/17 21:00 12/16/17 09:52 (Catapres) 0.1 mg Q6H PRN PO 12/08/17 13:30 12/08/17 23:12 Sodium Chloride 1,000 ml @ 0 mls/hr Q0M PRN OTHER 12/08/17 16:27 (Heparin Inj) 8,000 units UNSCH PRN IV FLUSH 12/08/17 16:30 Sodium Chloride 1,000 ml @ 200 mls/hr Q5H PRN IV 12/08/17 16:27 Sodium Chloride 1,000 ml @ 0 mls/hr Q0M PRN OTHER 12/08/17 16:27 (Mannitol Inj) 12.5 gm UNSCH PRN IV 12/08/17 16:30 Albumin Human 100 ml @ 60 mls/hr UNSCH PRN IV 12/08/17 16:30 12/11/17 14:05 (NS Flush) 5 ml UNSCH PRN IV FLUSH 12/08/17 16:30 (Heparin Inj) UNSCH PRN .XX 12/08/17 16:30 12/15/17 17:05 (Gentamicin Inj) 20 mg UNSCH PRN OTHER 12/08/17 16:30 12/15/17 17:05 (Zofran Inj) 4 mg UNSCH PRN IV PUSH 12/08/17 16:30 (Tylenol) 650 mg UNSCH PRN PO 12/08/17 16:30 12/09/17 08:21 (Benadryl) 25 mg UNSCH PRN PO 12/08/17 16:30 (Nitrostat Sl) 0.4 mg UNSCH PRN SL 12/08/17 16:30 (Catapres) 0.1 mg UNSCH PRN PO 12/08/17 16:30 (Gelfoam 12 Mm/7 Mm Top) 1 foam UNSCH PRN TOP 12/08/17 16:30 ([facility] Nursing Information) Patient in critical care unit? Ass... Q361D .XX 12/08/17 22:45 12/08/17 22:45 ([place] 5-325 Mg) 1 tab Q6H PRN PO 12/09/17 09:45 12/15/17 12:26 (NS Flush) UNSCH PRN IV FLUSH 12/09/17 15:30 (Heparin Inj) UNSCH PRN IV FLUSH 12/09/17 15:30 (Coreg) 3.125 mg Q12HR PO 12/10/17 21:00 12/16/17 09:50 (Lasix) 80 mg DAILY PO 12/14/17 09:00 12/16/17 09:51 (Nephrocaps) 1 cap DAILY PO 12/13/17 15:15 12/16/17 09:00 Sodium Chloride 154 meq/Dextrose 1,038.5 ml @ 20 mls/hr Q24H IV 12/16/17 21:00 A/P Problem List: (1) Acute on chronic renal failure ICD Code: N17.9 - Acute kidney failure, unspecified; N18.9 - Chronic kidney disease, unspecified (2) SVT (supraventricular tachycardia) ICD Code: I47.1 - Supraventricular tachycardia (3) HTN (hypertension) ICD Code: I10 - Essential (primary) hypertension Status: Acute (4) Respiratory failure, acute ICD Code: J96.00 - Acute respiratory failure, unspecified whether with hypoxia or hypercapnia (5) DM (diabetes mellitus) ICD Code: E11.9 - Type 2 diabetes mellitus without complications Status: Acute Assessment and Plan 72-year-old male with a medical history significant for diabetes, chronic kidney disease, hypertension, noncompliance [facility] function in need of dialysis. Patient is a very poor historian , and his has a history of stroke with significant expressive aphasia. CKD stage 5, now progressed to ESRD: acute on chronic. Needs to start dialysis at this point. -Consulted Nephrology -12/09- PermCath placed via right IJ by Dr. Kumar IR -Started on hemodialysis, patient tolerating well -Vascular surgery consulted, Dr. Hutson plans for LUE AVF tomorrow 12/17 -Per nephrology, patient will give AVF and dialysis tomorrow, then can be discharged home -Plan for patient to transition to MWF dialysis at [facility], chair time 3:30pm SVT: Acute. Status post adenosine and metoprolol in ED. -Cardiac enzymes negative, no ST changes -Cardiology consulted, appreciate recommendations -continue coreg 3.125 mg bid -monitor on telemetry -2D echo with normal ejection fraction of 55% trace MR and mild AR -stable for discharge Hypertension: Chronic -continue amlodipine -BP remains well controlled Acute Respiratory failure: Suspect multifactorial secondary to pulmonary edema with fluid overload in combination with underlying COPD -continue dialysis which seems to be helping the patient's breathing -continue oxygen supplement -on diuresis with lasix 80mg daily -continue Symbicort -patient failed walk test with O2 sat 83%, will require oxygen at discharge Diabetes mellitus, type II: chronic -Continue Accu-Chek with insulin sliding scale -HgbA1c 5.8 Constipation: acute -stool softeners/laxatives available prn. -encourage ambulation -had BM x2 yesterday 12/15 Generalized Weakness: suspect secondary to hospitalization -PT consulted, recommended rehab however patient wants to go home -Will request repeat PT eval -HHC ordered for now DVT Prophylaxis: teds/SCDs Discharge Planning Plan for the patient to have LUE AVF placed tomorrow with Dr. Hutson then receive dialysis, and discharge tomorrow. PT recommending rehab, however patient is leaning towards going home instead. Case management assisting with discharge planning. Problem Qualifiers (1) Respiratory failure, acute: Qualified Codes: J96.01 - Acute respiratory failure with hypoxia Veronica Harry PA-C Dec 16, 2017 11:55
--- NOTE | 2017-12-16 11:56 | HHI.FF ---
Face to Face Verification Diagnosis: (1) ESRD (end stage renal disease) (2) Supraventricular tachycardia (3) Diabetes mellitus (4) HTN (hypertension) (5) Respiratory failure, acute (6) Fluid overload (7) Hyperlipidemia Physical Therapy Order: Evaluate and Treat, Improve ambulation, Strength and gait training Home Health Nursing Order: Medical education Signs/symptoms of disease process Oxygen administration education Nursing assessment with vital signs I have seen patient Angel Constantino on 12/16/17. My clinical findings support the need for the requested home health care services because: Ltd mobility - disease progression Patient has SOB Deconditioned w/ increased weakness Med compliance is questionable Limited ability to care for self I certify that my clinical findings support that this patient is homebound because: Hx COPD- exertion dyspnea/weakness Unsteady gait/balance Unsafe to leave home unassisted Unable to use public transportation Veronica Harry PA-C Dec 16, 2017 11:56
[2017-12-16] MEDS: ATORVASTATIN 80 MG TAB PO SCH (21:24)
[2017-12-16] MEDS: SODIUM CHLORIDE 23.4% INJ 154 MEQ in DEXTROSE 10% INJ 1,000 ML IV SCH (21:26)
[2017-12-16] MEDS ORDERED: SODIUM CHLORID 0.9% 500 ML IV PRN (23:45)
[2017-12-16] MEDS ORDERED: POVIDONE IODINE 5% (ANTISEPSIS KIT) 4 APPLICATIONS EACH NARE PRN (23:45)
[2017-12-16] MEDS ORDERED: CHLORHEXIDINE GLUCONATE 2 % 1 PACK (2 CLOTHS) TOPICAL PRN (23:45)
[2017-12-16] MEDS ORDERED: LACTATED RINGER'S 1000 ML IV PRN (23:45)
[2017-12-17 04:15] VITALS: BP 122/62; PULSE 83; RESP 17; TEMP 98.3; O2SAT 94
[2017-12-17] MEDS: INSULIN ASPART SUPPLEMENTAL SCALE SQ SCH ×4 (08:00→22:41)
[2017-12-17 08:38] VITALS: BP 126/62; PULSE 64; RESP 17; TEMP 97.8; O2SAT 96
[2017-12-17] MEDS ORDERED: THROMBIN (TOPICAL) 20,000 UNIT SPRAY KIT ONE (08:49)
[2017-12-17] MEDS ORDERED: VANCOMYCIN HCL 1000 MG VIAL ONE (08:49)
[2017-12-17] MEDS ORDERED: HEPARIN SODIUM - IV 10,000 UNITS/10 ML VIAL ONE (08:49)
[2017-12-17] MEDS ORDERED: HEPARIN-NS/PF INJ 500 ML ONE (08:49)
[2017-12-17] MEDS ORDERED: PROTAMINE SULFATE 50 MG/5 ML VIAL ONE (08:49)
[2017-12-17] MEDS ORDERED: BUPIVACAINE HCL PF 0.5% 30 ML VIAL ONE (08:53)
[2017-12-17] MEDS: CARVEDILOL 3.125 MG TAB PO SCH ×2 (08:55→21:40)
[2017-12-17] MEDS: SODIUM CHLORIDE 0.9% FLUSH 10 ML FLUSH IV FLUSH SCH ×2 (09:00→21:41)
[2017-12-17] MEDS: BUDESONIDE-FORMOTEROL 160/4.5 MCG INHALER INH SCH ×2 (09:00→21:46)
[2017-12-17] MEDS: VITAMIN B CMPLX/VITC/FOLIC AC CAP PO SCH (09:00)
[2017-12-17] MEDS: FUROSEMIDE 80 MG TAB PO SCH (09:00)
--- NOTE | 2017-12-17 10:48 | HHI.PR ---
cc: Andres Hutson MD Immediate Post Op Note Procedure Date: Dec 17, 2017 Pre Op Diagnosis: ESRD, need for HD access Post Op Diagnosis: ESRD, need for HD access Surgeon: Andres Hutson Condenser Tube Tender(s): Osmar Her Procedure: L brachiocephalic AVF Findings: good vein, artery + thrill and palpable radial pulse after AVF creation Complications: none Specimen(s) removed: none Estimated blood loss: 20mL Anesthesia: LMA Drains: None Fluids: 300mL IVF Patient to: PACU Patient Condition: Good Date/Time of Procedure: SEE SURGICAL CARE RECORD Andres Hutson MD Dec 17, 2017 10:48
--- NOTE | 2017-12-17 10:56 | HHI.PR ---
Subjective Remarks No complaints at this time ready for surgery. Is open to going to [facility] Objective Vitals Vital Signs Date Time Temp Pulse Resp B/P (MAP) Pulse Ox O2 Delivery O2 Flow Rate FiO2 12/17/17 09:15 Nasal Cannula 1 12/17/17 08:38 97.8 64 17 126/62 (83) 96 12/17/17 04:15 98.3 83 17 122/62 (82) 94 12/16/17 23:00 97.4 70 17 125/65 (85) 96 12/16/17 22:25 81 12/16/17 19:37 Nasal Cannula 3.00 12/16/17 19:33 Nasal Cannula 3.00 12/16/17 19:30 97.6 68 17 161/72 (101) 94 12/16/17 12:35 95 Nasal Cannula 4.00 I/O 12/16/17 12/16/17 12/16/17 12/17/17 12/17/17 12/17/17 07:00 15:00 23:00 07:00 15:00 23:00 Intake Total 480 ml 360 ml 400 ml Output Total 500 ml 2200 ml 250 ml 20 ml Balance -20 ml -2200 ml 110 ml 380 ml Intake Oral 480 ml 360 ml Other 400 ml Output Urine Total 500 ml 200 ml 250 ml Hemodialysis 2000 ml Estimated Blood Loss 20 ml # Voids 1 # Bowel Movements 0 0 Result Diagram: 12/16/17 0615 Objective Remarks GENERAL: This is a well-nourished, well-developed patient, in no apparent distress. CARDIOVASCULAR: Regular rate and rhythm with 2 out of 6 systolic ejection murmur RESPIRATORY: Clear to auscultation. Breath sounds equal bilaterally. No wheezes , rales, or rhonchi. GASTROINTESTINAL: Abdomen soft, non-tender, nondistended. Normal active bowel sounds MUSCULOSKELETAL: Extremities without clubbing, cyanosis, trace edema NEURO: Alert & Oriented x4 to person, place, time, situation. Moves all ext x4 Procedures 12/09/17 -interventional radiologist Dr. Fortunato Kumar placed PermCath via the right IJ A/P Problem List: (1) Acute on chronic renal failure ICD Code: N17.9 - Acute kidney failure, unspecified; N18.9 - Chronic kidney disease, unspecified (2) SVT (supraventricular tachycardia) ICD Code: I47.1 - Supraventricular tachycardia (3) HTN (hypertension) ICD Code: I10 - Essential (primary) hypertension Status: Acute (4) Respiratory failure, acute ICD Code: J96.00 - Acute respiratory failure, unspecified whether with hypoxia or hypercapnia (5) DM (diabetes mellitus) ICD Code: E11.9 - Type 2 diabetes mellitus without complications Status: Acute Assessment and Plan 72-year-old male with a medical history significant for diabetes, chronic kidney disease, hypertension, noncompliance [facility] function in need of dialysis. Patient is a very poor historian , and his has a history of stroke with significant expressive aphasia. CKD stage 5, now progressed to ESRD: acute on chronic. Needs to start dialysis at this point. -Consulted Nephrology -12/09- PermCath placed via right IJ by Dr. José GARCIA -Started on hemodialysis, patient tolerating well -Vascular surgery consulted, Dr. Hutson plans for LUE AVF placement today -Per nephrology, patient will give AVF and dialysis tomorrow, then can be [facility] to [facility] facility -Plan for patient to transition to MWF dialysis at [facility], chair time 3:30pm SVT: Acute. Status post adenosine and metoprolol in ED. -Cardiac enzymes negative, no ST changes -Cardiology consulted, appreciate recommendations -continue coreg 3.125 mg bid -monitor on telemetry -2D echo with normal ejection fraction of 55% trace MR and mild AR -stable for discharge Hypertension: Chronic -continue amlodipine -BP remains well controlled Acute Respiratory failure: Suspect multifactorial secondary to pulmonary edema with fluid overload in combination with underlying COPD -continue dialysis which seems to be helping the patient's breathing -continue oxygen supplement and wean as tolerated -on diuresis with lasix 80mg daily -continue Symbicort -patient failed walk test with O2 sat 83%, will require oxygen at discharge at prison facility Diabetes mellitus, type II: chronic -Continue Accu-Chek with insulin sliding scale -HgbA1c 5.8 Constipation: acute -stool softeners/laxatives available prn. -encourage ambulation Generalized Weakness: suspect secondary to hospitalization -PT consulted, recommended rehab and patient has agreed to prison facility today -Will request repeat PT eval DVT Prophylaxis: teds/SCDs Discharge Planning To prison facility tomorrow Problem Qualifiers (1) Respiratory failure, acute: Qualified Codes: J96.01 - Acute respiratory failure with hypoxia Naheed Lemons MD Dec 17, 2017 10:56
[2017-12-17] MEDS ORDERED: DO NOT ADM ANY ANTICOAGULANT DRUGS PRN (11:05)
--- NOTE | 2017-12-17 11:19 | MP ---
cc: Andres Hutson MD DATE OF OPERATION: PREOPERATIVE DIAGNOSIS: Endstage renal disease, need for dialysis access. POSTOPERATIVE DIAGNOSIS: Endstage renal disease, need for dialysis access. PROCEDURE PERFORMED: Left brachiocephalic arteriovenous fistula. ATTENDING SURGEON: Andres Hutson MD ANESTHESIA: LMA. INDICATIONS FOR PROCEDURE: Mr. Constantino is a 72-year-old gentleman with new onset dialysis dependence. He was taken to the operating room for access creation. Preoperative imaging suggested he had adequate left cephalic vein. DESCRIPTION OF PROCEDURE: Informed consent was obtained. The patient was taken to the operating room and placed supine on the operating table. Appropriate timeout was taken to assure the patient's identity, operative site, and planned procedure. The administration of a gram of vancomycin was initiated prior to skin incision and will be discontinued after single preoperative dose. Everyone in the room agreed with timeout and we proceeded. Of note, Vancomycin was chosen because of the patient's end-stage renal disease. His left arm was prepped and draped and the transverse incision made at the antecubital and carried down through the subcutaneous tissue with electrocautery. Cephalic vein was identified and dissected free for several centimeters. The brachial artery was identified in the medial aspect of the incision. Side branches of the cephalic vein were ligated with 3-0 silk. The vein was marked for orientation, clamped distally, transected and the distal end was oversewn with 3-0 silk. The patient was systemically heparinized with 3000 units of IV heparin. Proximal and distal control of the brachial artery was obtained with profunda clamps and a longitudinal arteriotomy was made with an 11 blade, extended with Ramos scissors. The vein was spatulated and sewn end-to-side with running 6-0 Prolene suture. At the completion, it was flushed and was hemostatic. There was a nice thrill in the fistula. The clamps were released and a palpable radial pulse. The wound was irrigated, infiltrated with Marcaine and closed with 3-0 Polysorb and 4-0 Monocryl. The sponge and needle counts were correct at the end of the case. I was present, scrubbed, and performed the entire procedure. MD OCTAVIA Guevara/CHRIS , 11:05 AM , 11:18 AM
[2017-12-17 11:34] VITALS: O2SAT 96
--- NOTE | 2017-12-17 15:14 | HHI.NPPN ---
Subjective Renal Failure: Chronic, Stage V Interval History Seen in dialysis post AVF placement on left. (Jyoti Ceron) Review of Systems General Constitutional: Fatigue (Jyoti Ceron) Objective Data Data 12/17/17 12/18/17 19:00 07:00 Intake Total 400 ml Output Total 20 ml Balance 380 ml Other 400 ml Estimated Blood Loss 20 ml Vital Signs Date Time Temp Pulse Resp B/P (MAP) Pulse Ox O2 Delivery O2 Flow Rate FiO2 12/17/17 13:00 97.8 64 18 131/61 (84) 94 Nasal Cannula 2 12/17/17 12:30 61 18 116/60 (78) 96 Nasal Cannula 2 12/17/17 12:15 62 18 115/59 (77) 96 Nasal Cannula 2 12/17/17 12:00 61 18 116/58 (77) 95 Nasal Cannula 2 12/17/17 11:45 61 18 116/57 (76) 95 Nasal Cannula 2 12/17/17 11:34 96 Nasal Cannula 1.00 12/17/17 11:30 62 18 111/55 (73) 95 Nasal Cannula 2 12/17/17 11:15 64 18 115/57 (76) 95 Nasal Cannula 2 12/17/17 11:07 97.6 69 18 117/56 (76) 95 Nasal Cannula 2 12/17/17 09:15 Nasal Cannula 1 12/17/17 08:38 97.8 64 17 126/62 (83) 96 12/17/17 04:15 98.3 83 17 122/62 (82) 94 12/16/17 23:00 97.4 70 17 125/65 (85) 96 12/16/17 22:25 81 12/16/17 19:37 Nasal Cannula 3.00 12/16/17 19:33 Nasal Cannula 3.00 12/16/17 19:30 97.6 68 17 161/72 (101) 94 (Jyoti Ceron) -: 12/16/17 0615 Tubes & Lines: Perma-Cath (Jyoti Ceron) Physical Exam General Appearance: Well Developed, Well Nourished, Comfortable (Jyoti Ceron) Eyes Eye Exam: Pupils Equal, Pupils Reactive (Jyoti Ceron) Throat Throat Exam: Oral Mucosa [place] & Moist (Jyoti Ceron) Pulmonary Resp Exam: Breath Sounds Equal, No Distress, Crackles Resp Remarks bibasilar rales (Jyoti Ceron) Cardiology CV Exam: Regular, Normal Sinus Rhythm, Good Perfusion (Jyoti Ceron) Gastrointestinal/Abdomen GI Exam: Soft, Non-Tender, Bowel Sounds Present (Jyoti Ceron) Musculoskeletal MS Exam: Joints Intact, Normal Gait, Normal Tone (Jyoti Ceron) Integumentary Skin Exam: Warm, Dry, Intact (Jyoti Ceron) Extremeties Extremities Exam: No Edema, Pedal Pulses Palpable Extremeties Remarks AVF left arm, bandaged, + thrill/bruit (Jyoti Ceron) Neurologic Neuro Exam: Alert, Awake, Oriented, Speech Clear, Moving All Extremities (Jyoti Ceron) Psychiatric Psych Exam: Appropriate Responses (Jyoti Ceron) Assessment/Plan Discussed Condition With: Patient Assessment Summary: Fluid/Volume Overload, Hypertension, End Stage Renal Disease Problem List: (1) Chronic kidney disease, stage 5 ICD Codes: N18.5 - Chronic kidney disease, stage 5 Plan: Newly diagnosed ESRD. On MWF HD, seen during HD on a 2K, 350 BFR, 1.5L UF. Maintain PermCath for discharge Outpatient HD arrangements complete. He will show up Friday at 3pm to [facility] cleared for discharge after HD today. We will follow in HD clinic. (2) HTN (hypertension) ICD Codes: I10 - Essential (primary) hypertension Status: Acute Plan: Blood pressure is low-normal. On Lasix and Coreg. (3) Diabetes mellitus ICD Codes: E11.9 - Type 2 diabetes mellitus without complications Status: Acute Plan: insulin coverage to maintain blood glucose between 140 and 180 (4) Supraventricular tachycardia ICD Codes: I47.1 - Supraventricular tachycardia Status: Acute Plan: converted to NSR. Cardiology has evaluated (Jyoti Ceron) Plan patient was seen and examined. Agree with above assessment and plan. (Eduardo Salvador MD) Jyoti Ceron Dec 17, 2017 15:14 Eduardo Salvador MD Dec 17, 2017 18:11
[2017-12-17 17:10] VITALS: BP 139/62; PULSE 73; RESP 18; TEMP 97.2; O2SAT 96
[2017-12-17] MEDS ORDERED: PROPOFOL 200 MG/20 ML AMP IV ONE (17:13)
[2017-12-17] MEDS ORDERED: ePHEDrine/NS 25 MG/5 ML SYRINGE IV ONE (17:13)
[2017-12-17] MEDS ORDERED: LIDOCAINE HCL 1% PF 5 ML SYRINGE OTHER ONE (17:13)
[2017-12-17 18:21] LABS: ALBUMIN 2.8 GM/DL (3.4-5.0); BICARBONATE 33.4 MEQ/L (21.0-32.0); CALCIUM 8.6 MG/DL (8.5-10.1); CREATININE 4.28 MG/DL (0.60-1.30); PHOSPHORUS 2.8 MG/DL (2.5-4.9)
[2017-12-17 20:00] VITALS: BP 129/63; PULSE 74; RESP 17; TEMP 97.7; O2SAT 95
[2017-12-17] MEDS: ATORVASTATIN 80 MG TAB PO SCH (21:41)
[2017-12-17 21:49] VITALS: O2SAT 95
[2017-12-17] MEDS: ACETAMINOPHEN/HYDROcodone 325 MG/5 MG TAB PO PRN (23:13)
[2017-12-17] MEDS: SODIUM CHLORIDE 23.4% INJ 154 MEQ in DEXTROSE 10% INJ 1,000 ML IV SCH (23:19)
[2017-12-18 00:01] VITALS: BP 123/55; PULSE 74; RESP 18; TEMP 98.5; O2SAT 95
[2017-12-18 04:00] VITALS: BP 122/60; PULSE 69; RESP 18; TEMP 98.2; O2SAT 94
[2017-12-18 08:00] VITALS: BP 130/61; PULSE 67; RESP 18; TEMP 97.1; O2SAT 96
[2017-12-18] MEDS: INSULIN ASPART SUPPLEMENTAL SCALE SQ SCH ×3 (08:00→17:00)
[2017-12-18] MEDS: MAGNESIUM HYDROXIDE SUSP 30 ML CUP PO PRN (08:09)
[2017-12-18] MEDS: SENNOSIDES 8.6 MG TAB PO PRN (08:10)
[2017-12-18] MEDS: SODIUM CHLORIDE 0.9% FLUSH 10 ML FLUSH IV FLUSH SCH (08:11)
[2017-12-18] MEDS: VITAMIN B CMPLX/VITC/FOLIC AC CAP PO SCH (08:11)
[2017-12-18] MEDS: FUROSEMIDE 80 MG TAB PO SCH (08:11)
[2017-12-18] MEDS: BUDESONIDE-FORMOTEROL 160/4.5 MCG INHALER INH SCH (08:12)
[2017-12-18] MEDS: CARVEDILOL 3.125 MG TAB PO SCH (08:15)
--- NOTE | 2017-12-18 09:04 | HHI.NPPN ---
Subjective Renal Failure: Chronic, Stage V Interval History Had AVF placed yesterday. Had dialysis yesterday. To be discharged to today to [facility]. Review of Systems General Constitutional: Fatigue Objective Data Data Vital Signs Date Time Temp Pulse Resp B/P (MAP) Pulse Ox O2 Delivery O2 Flow Rate FiO2 12/18/17 08:00 97.1 67 18 130/61 (84) 96 12/18/17 04:00 98.2 69 18 122/60 (80) 94 12/18/17 00:01 98.5 74 18 123/55 (77) 95 12/17/17 21:49 95 Nasal Cannula 2.00 12/17/17 20:00 97.7 74 17 129/63 (85) 95 12/17/17 17:10 97.2 73 18 139/62 (87) 96 12/17/17 13:00 97.8 64 18 131/61 (84) 94 Nasal Cannula 2 12/17/17 12:30 61 18 116/60 (78) 96 Nasal Cannula 2 12/17/17 12:15 62 18 115/59 (77) 96 Nasal Cannula 2 12/17/17 12:00 61 18 116/58 (77) 95 Nasal Cannula 2 12/17/17 11:45 61 18 116/57 (76) 95 Nasal Cannula 2 12/17/17 11:34 96 Nasal Cannula 1.00 12/17/17 11:30 62 18 111/55 (73) 95 Nasal Cannula 2 12/17/17 11:15 64 18 115/57 (76) 95 Nasal Cannula 2 12/17/17 11:07 97.6 69 18 117/56 (76) 95 Nasal Cannula 2 12/17/17 09:15 Nasal Cannula 1 -: 12/17/17 1725 Tubes & Lines: Perma-Cath Physical Exam General Appearance: Well Developed, Well Nourished, Comfortable Eyes Eye Exam: Pupils Equal, Pupils Reactive Throat Throat Exam: Oral Mucosa [place] & Moist Pulmonary Resp Exam: Breath Sounds Equal, No Distress, Crackles Cardiology CV Exam: Regular, Normal Sinus Rhythm, Good Perfusion Gastrointestinal/Abdomen GI Exam: Soft, Non-Tender, Bowel Sounds Present Musculoskeletal MS Exam: Joints Intact, Normal Gait, Normal Tone Integumentary Skin Exam: Warm, Dry, Intact Extremeties Extremities Exam: No Edema, Pedal Pulses Palpable Neurologic Neuro Exam: Alert, Awake, Oriented, Speech Clear, Moving All Extremities Psychiatric Psych Exam: Appropriate Responses Assessment/Plan Discussed Condition With: Patient Assessment Summary: Fluid/Volume Overload, Hypertension, End Stage Renal Disease Problem List: (1) Chronic kidney disease, stage 5 ICD Codes: N18.5 - Chronic kidney disease, stage 5 Plan: Newly diagnosed ESRD. HD will be continued MWF. Maintain PermCath for discharge Outpatient HD arrangements complete. He will show up Friday at 3pm to [facility] cleared for discharge We will follow in HD clinic. (2) HTN (hypertension) ICD Codes: I10 - Essential (primary) hypertension Status: Acute Plan: Blood pressure is low-normal. On Lasix and Coreg. (3) Diabetes mellitus ICD Codes: E11.9 - Type 2 diabetes mellitus without complications Status: Acute Plan: insulin coverage to maintain blood glucose between 140 and 180 (4) Supraventricular tachycardia ICD Codes: I47.1 - Supraventricular tachycardia Status: Acute Plan: converted to NSR. Cardiology has evaluated Eduardo Salvador MD Dec 18, 2017 09:04
[2017-12-18 09:25] VITALS: O2SAT 91
[2017-12-18] MEDS ORDERED: CARV3.125 PO (10:41)
[2017-12-18] MEDS ORDERED: FURO80TA PO (10:41)
--- NOTE | 2017-12-18 10:50 | HHI.DS ---
Discharge Summary Admission Date Dec 08, 2017 at 13:20 Discharge Date: Dec 18, 2017 Admitting Diagnosis end stage renal disease, chf, svt (1) Acute on chronic renal failure ICD Code: N17.9 - Acute kidney failure, unspecified; N18.9 - Chronic kidney disease, unspecified Diagnosis: Principal Status: Acute (2) SVT (supraventricular tachycardia) ICD Code: I47.1 - Supraventricular tachycardia Diagnosis: Secondary Status: Resolved (3) HTN (hypertension) ICD Code: I10 - Essential (primary) hypertension Diagnosis: Secondary Status: Chronic (4) Respiratory failure, acute ICD Code: J96.00 - Acute respiratory failure, unspecified whether with hypoxia or hypercapnia Diagnosis: Secondary Status: Resolved (5) DM (diabetes mellitus) ICD Code: E11.9 - Type 2 diabetes mellitus without complications Diagnosis: Secondary Status: Chronic Procedures 12/09/17 -interventional radiologist Dr. Fortunato Kumar placed PermCath via the right IJ 12/17 left upper extremity AV fistula placement with Dr. Hutson Brief History - From Admission Obtained from admitting physician's history and physical 72-year-old male with a medical history significant for diabetes, chronic kidney disease, hypertension, noncompliance sent to the emergency room by the [place] for worsening renal function in need of dialysis. Patient is a very poor historian. His at bedside has a history of stroke with significant expressive aphasia. From what I can gather from the patient, his , and the medical records, he has had issues with noncompliance. He has not been taking any medications at home. Over the past few weeks he has been getting increasingly short of breath to the point of near syncope. He states [facility] but could not tell me the details on what has been accomplished so far. He does make a small amount of urine. In the emergency room, the patient was found to be in SVT. He has been given adenosine and metoprolol IV and have since converted back to sinus rhythm. X-ray consistent with pulmonary edema. Currently states he is mildly short of breath but denies chest pain. He states he is now willing to go through with dialysis. CBC/BMP: 12/17/17 1725 Significant Findings Laboratory Tests Test 12/15/17 11:53 12/16/17 06:15 12/17/17 17:25 Blood Urea Nitrogen 69 MG/DL (7-18) 43 MG/DL (7-18) 26 MG/DL (7-18) Creatinine 8.04 MG/DL (0.60-1.30) 5.88 MG/DL (0.60-1.30) 4.28 MG/DL (0.60-1.30) Random Glucose 190 MG/DL (74-106) 123 MG/DL (74-106) 152 MG/DL (74-106) Albumin 2.8 GM/DL (3.4-5.0) 2.8 GM/DL (3.4-5.0) Sodium Level 133 MEQ/L (136-145) Potassium Level 5.5 MEQ/L (3.5-5.1) Chloride Level 95 MEQ/L (98-107) Estimat Glomerular Filtration Rate 7 ML/MIN (>89) 10 ML/MIN (>89) 14 ML/MIN (>89) Magnesium Level 3.0 MG/DL (1.5-2.5) Carbon Dioxide Level 33.4 MEQ/L (21.0-32.0) Imaging Last Impressions Chest X-Ray 12/12/17 0000 Signed Impressions: CONCLUSION: Interval improvement with less edema. Upper Extremity Ultrasound 12/09/17 Signed Impressions: CONCLUSION: 1. Central Venous Line 12/09/17 Signed Impressions: CONCLUSION: 1. Uncomplicated catheter removal. Catheter Placement X-Ray 12/09/17 Signed Impressions: CONCLUSION: 1. Uncomplicated PermaCath placement as above. Renal Ultrasound 12/08/17 Signed Impressions: CONCLUSION: Multiple simple cysts in both kidneys. PE at Discharge GENERAL: This is a well-nourished, well-developed patient, in no apparent distress. CARDIOVASCULAR: Regular rate and rhythm with 2 out of 6 systolic ejection murmur RESPIRATORY: Clear to auscultation. Breath sounds equal bilaterally. No wheezes , rales, or rhonchi. GASTROINTESTINAL: Abdomen soft, non-tender, nondistended. Normal active bowel sounds MUSCULOSKELETAL: Extremities without clubbing, cyanosis, trace edema NEURO: Alert & Oriented x4 to person, place, time, situation. Moves all ext x4 Hospital Course These are the medical issues addressed during this hospitalization: 72-year-old male with a medical history significant for diabetes, chronic kidney disease, hypertension, noncompliance [facility] in need of dialysis. CKD stage 5, now progressed to ESRD: acute on chronic. Needs to start dialysis at this point. -Consulted Nephrology, Dr. Cordova arrange for outpatient dialysis -12/09- PermCath placed via right IJ by Dr. Kumar IR -Started on hemodialysis during hospitalization, patient tolerating well -Vascular surgery consulted, Dr. Hutson placed LUE AVF on December 17 -Plan for patient to transition to MWF dialysis at [facility], chair time 3:00pm SVT: Acute and now resolved. Status post adenosine and metoprolol in ED. -Cardiac enzymes negative, no ST changes -Cardiology consulted, appreciate recommendations -continue coreg 3.125 mg bid -monitor on telemetry -2D echo with normal ejection fraction of 55% trace MR and mild AR -stable for discharge Hypertension: Chronic -continue hydralazine and Coreg and Lasix -BP remains well controlled Acute Respiratory failure: Suspect multifactorial secondary to pulmonary edema with fluid overload in combination with underlying COPD -continue dialysis which seems to be helping the patient's breathing -continue oxygen supplement and wean as tolerated -on diuresis with lasix 80mg daily -continue Symbicort -patient failed walk test with O2 sat 83%, will require oxygen at discharge at senior care facility Diabetes mellitus, type II: chronic and well controlled -Continue Accu-Chek with insulin sliding scale -HgbA1c 5.8 Constipation: acute -stool softeners/laxatives available prn. -encourage ambulation Generalized Weakness: suspect secondary to hospitalization -PT consulted, recommended rehab and patient has agreed to senior care facility DVT Prophylaxis: teds/SCDs At this time, patient has gained maximum benefit from hospitalization ready to be discharged to senior care facility Pt Condition on Discharge: Good Discharge Disposition: Discharge to SNF Discharge Time: <= 30 minutes Discharge Instructions DIET: Follow Instructions for: Dialysis Diet Activities you can perform: Regular-No Restrictions Follow up Referrals: Nephrology - 12/19/17 with Eduardo Salvador MD PCP Follow-up - 1 Week with [facility] Surgery - 2 Weeks @ Vascular Surgery with Lizz Puente Your Post Op f/u is scheduled on 01/09/18 at 8:30 am New Medications: Oxygen (O2) (Oxygen (O2)) Device LITER MELISSA.CANULA CONTINUOUS for Prevent Hypoxemia, #2 Oxygen Concentrator Portable Gaseous 3 L/min via Nasal Canula Continuous For 99 months Carvedilol (Coreg) 3.125 Mg Tab 3.125 MG PO Q12HR for Regulate Heart Beat, #60 TAB Furosemide (Furosemide) 80 Mg Tab 80 MG PO DAILY for decrease fluid, #30 TAB Continued Medications: Albuterol 6.7 GM Inh (Proventil Hfa 6.7 GM Inh) 90 Mcg/Act Aer 2 PUFF INH Q4-6H PRN for SHORTNESS OF BREATH, #1 INHALER 0 Refills Albuterol 8.5 GM Inh (Proair Hfa 8.5 GM Inh) 90 Mcg/Act Aer 2 PUFF INH Q4-6H PRN for SHORTNESS OF BREATH, #1 INHALER 0 Refills 108 mcg/actuation Aspirin (Aspirin) 81 Mg Chew 81 MG CHEW DAILY, TAB 0 Refills Atorvastatin (Atorvastatin) 80 Mg Tab 80 MG PO HS for Cholesterol Management, #30 TAB 0 Refills Budesonide-Formoterol Inh (Symbicort Inh) 160-4.5 Mcg/Act Aero 2 PUFF INH Q12HR, #1 INHALER 0 Refills Rwtaypdtemjrjzmyo-Oecxyekhk-Gmkkdlkqcbo 80 (Refresh Optive Advanced Opth Drops) 0.5-1-0.5% Soln 1-2 DROP EACH EYE DAILY PRN for DRY EYE, #1 BOTTLE 0 Refills Ergocalciferol (Ergocalciferol) 50,000 Unit Cap 78180 UNITS PO Q7D for Nutritional Supplement, #30 CAP 0 Refills Hydralazine HCl (Hydralazine HCl) 25 Mg Tablet 25 MG PO BID for Blood Pressure Management, #60 TAB 0 Refills Multiple Vitamins W/ Minerals (Preservision Areds) 1 Tab 1 TAB PO DAILY for Nutritional Supplement, TAB 0 Refills Discontinued Medications: Amlodipine (Amlodipine) 10 Mg Tab 10 MG PO DAILY for Blood Pressure Management, #30 TAB 0 Refills Furosemide (Furosemide) 20 Mg Tab 20 MG PO DIRECTED, #30 TAB 0 Refills Naheed Lemons MD Dec 18, 2017 10:50
--- NOTE | 2017-12-18 11:54 | PD.VS.PN ---
Subjective POD #: 1 Procedure(s): L brachiocephalic AVF Subjective/Hospital Course Pt afebrile alert in NAD w/o complaints Pt S/P L brachiocephalic AVF Pt w/o hand pain Incision intact w/o R/D/S + thrill Objective Vitals/I&O Date Time Temp Pulse Resp B/P (MAP) Pulse Ox O2 Delivery O2 Flow Rate FiO2 12/18/17 08:00 97.1 67 18 130/61 (84) 96 12/18/17 04:00 98.2 69 18 122/60 (80) 94 12/18/17 00:01 98.5 74 18 123/55 (77) 95 12/17/17 21:49 95 Nasal Cannula 2.00 12/17/17 20:00 97.7 74 17 129/63 (85) 95 12/17/17 17:10 97.2 73 18 139/62 (87) 96 12/17/17 13:00 97.8 64 18 131/61 (84) 94 Nasal Cannula 2 12/17/17 12:30 61 18 116/60 (78) 96 Nasal Cannula 2 12/17/17 12:15 62 18 115/59 (77) 96 Nasal Cannula 2 12/17/17 12:00 61 18 116/58 (77) 95 Nasal Cannula 2 12/18/17 12/18/17 12/18/17 07:00 15:00 23:00 Output Total 600 ml Balance -600 ml Exam: GENERAL: A&OX3,NAD, GCS 15 SKIN: Warm and dry. L UE incision intact w/o R/D/S + Thrill No hand pain Palpable radial pulses present Laboratory Laboratory Tests Test 12/17/17 17:25 Blood Urea Nitrogen 26 Creatinine 4.28 Random Glucose 152 Albumin 2.8 Calcium Level 8.6 Phosphorus Level 2.8 Sodium Level 140 Potassium Level 3.9 Chloride Level 100 Carbon Dioxide Level 33.4 Anion Gap 7 Estimat Glomerular Filtration Rate 14 Assessment and Plan Assessment: (1) CKD (chronic kidney disease) Status: Acute (2) Chronic kidney disease, stage 5 Plan 72/M with a hx of ESRD on HD Pt s/p L brachiocephalic AVF POD 1 Looks good Palpable distal pulses + thrill No hand pain Plan Pt clear for d/c from a vascular stand point Arranged out pt f/u in 3W Pt made aware of plan Lizz Puente NP [facility] [phone] Problem Qualifiers (1) CKD (chronic kidney disease): Qualified Codes: N18.6 - End stage renal disease; Z99.2 - Dependence on renal dialysis Lziz Puente Dec 18, 2017 11:54
[2017-12-18 12:09] VITALS: BP 130/60; PULSE 69; RESP 17; TEMP 97.6; O2SAT 94
[2017-12-18 15:34] VITALS: BP 136/63; PULSE 71; RESP 18; TEMP 98.5; O2SAT 97
== END 2017-12-18 17:14 | DRG 673 ==
LOC: NEPC 10:30 → NEDA 13:20 → N04A 17:03 → HIME 20:15 → N06B 12-11 16:29
PROVIDERS: ADMIT Family Medicine; ATTEND Family Medicine
PROC: 5A1D70Z Performance of Urinary Filtration, Intermittent, Less than 6 Hours Per Day (ICD-10-PCS; 2017-12-08)
PROC: 02HV33Z Insertion of Infusion Device into Superior Vena Cava, Percutaneous Approach (ICD-10-PCS; 2017-12-08)
PROC: 05HM33Z Insertion of Infusion Device into Right Internal Jugular Vein, Percutaneous Approach (ICD-10-PCS; principal; 2017-12-09)
PROC: 03180ZD Bypass Left Brachial Artery to Upper Arm Vein, Open Approach (ICD-10-PCS; 2017-12-17)
DX: N17.9 Acute kidney failure, unspecified (principal); J96.21 Acute and chronic respiratory failure with hypoxia; I13.2 Hypertensive heart and chronic kidney disease with heart failure and with stage 5 chronic kidney disease, or end stage renal disease; I47.1 Supraventricular tachycardia; J44.9 Chronic obstructive pulmonary disease, unspecified; E11.22 Type 2 diabetes mellitus with diabetic chronic kidney disease; I50.9 Heart failure, unspecified; I69.320 Aphasia following cerebral infarction; N18.6 End stage renal disease; E78.5 Hyperlipidemia, unspecified; R53.1 Weakness; Z77.098 Contact with and (suspected) exposure to other hazardous, chiefly nonmedicinal, chemicals; F32.9 Major depressive disorder, single episode, unspecified; K59.00 Constipation, unspecified; F41.9 Anxiety disorder, unspecified; M19.90 Unspecified osteoarthritis, unspecified site; Z91.19 Patient's noncompliance with other medical treatment and regimen; Z87.891 Personal history of nicotine dependence; Z87.442 Personal history of urinary calculi; Z85.828 Personal history of other malignant neoplasm of skin
CPT/HCPCS: 36556; 36558; 71045; 76775; 76937; 77001; 80048; 80053; 80069; 81001; 82550; 82552; 82948; 83036; 83735; 83880; 84100; 84484; 85025; 85027; 85610; 85730; 86803; 87340; 87641; 90935; 93005; 93306; 93970; 93998; 94618; 96374; 96375; 99152; 99153; C1750; C1769; J0153; J0690; J1580; J1644; J1815; J1940; J2250; J2720; J3010; J3370; J7030; J7050; P9047

== ENCOUNTER 2018-01-15 17:39 | Inpatient (IN) ==
--- NOTE | 2018-01-15 18:32 | ED ---
HPI General Chief Complaint: Chest Pain Stated Complaint: Chest Pain/[place] Time Seen by Provider: 01/15/18 18:04 Source: patient and family Mode of arrival: ambulatory Limitations: no limitations History of Present Illness HPI narrative: Patient is a 72-year-old male presenting to the emergency department for evaluation of chest pain shortness of breath. Patient states it started several days ago. He reports shortness of breath is worse with exertion. He states his chest pain pressure-like, midsternal. Pain is worse with exertion, somewhat alleviated with rest. Patient denies any radiation of the pain. He denies any diaphoresis, headache, dizziness, fever, chills, nausea or vomiting. Patient's past medical history significant for hypertension , type 2 diabetes, end-stage renal disease on hemodialysis, CHF, noncompliance. Complete Quality Measures for STEMI Alert Patients Related Data Home Medications Medication Instructions Recorded Confirmed aspirin [Aspir-81] 81 mg PO DAILY 01/15/18 01/15/18 atorvastatin 80 mg PO DAILY 01/15/18 01/15/18 budesonide-formoterol [Symbicort] 2 puff INHALATION BID 01/15/18 01/15/18 buspirone 5 mg PO DAILY 01/15/18 01/15/18 carvedilol [Coreg] 3.125 mg PO BID 01/15/18 01/15/18 ergocalciferol (vitamin D2) 50,000 unit PO QWEEK 01/15/18 01/15/18 [Vitamin D2] furosemide 80 mg PO DAILY 01/15/18 01/15/18 hydralazine 25 mg PO BID 01/15/18 01/15/18 multivitamin 1 tab PO DAILY 01/15/18 01/15/18 Allergies Allergy/AdvReac Type Severity Reaction Status Date / Time No Known Allergies Allergy Unverified 01/15/18 18:21 Review of Systems Except as stated in HPI: all other systems reviewed are negative [facility] Medical History Medical History Dialysis patient (Chronic) ESRD (end stage renal disease) on dialysis (Chronic) Fistula (Chronic) Hypertension (Chronic) Type 2 diabetes mellitus (Chronic) CHF (congestive heart failure), NYHA class I (Resolved) Social History Social History (Reviewed 01/15/18 @ 18:39 by MAGGIE Salvador Substance History: No History of Abuse Smoking Status: Former smoker How Often Do You Have a Drink Containing Alcohol: Never Recent Travel in [facility] within the Last 8 Weeks: No Recent Out of Country Travel within the Last 8 Weeks: No Immunization History Tetanus Immunization: <5 Years Exam Narrative Exam Narrative: GENERAL: Well-developed, well-nourished, alert elderly gentleman. Presenting in no acute distress. SKIN: Focused skin assessment warm/dry. HEAD: Atraumatic. Normocephalic. EYES: Pupils equal and round. No scleral icterus. No injection or drainage. ENT: No nasal bleeding or discharge. Mucous membranes pink and moist. NECK: Trachea midline. No JVD. CARDIOVASCULAR: Irregularly irregular, tachycardic. No murmur appreciated. RESPIRATORY: No accessory muscle use. Clear to auscultation. Breath sounds equal bilaterally. GASTROINTESTINAL: Abdomen soft, non-tender, nondistended. Hepatic and splenic margins not palpable. MUSCULOSKELETAL: No obvious deformities. No clubbing. No cyanosis. No edema. NEUROLOGICAL: Awake and alert. No obvious cranial nerve deficits. Motor grossly within normal limits. Normal speech. PSYCHIATRIC: Appropriate mood and affect; insight and judgment normal. Course Initial Documented Vital Signs Temperature 98.7 F 01/15/18 17:56 Pulse Rate 142 H 01/15/18 17:56 Respiratory Rate 12 01/15/18 17:56 Blood Pressure 149/82 H 01/15/18 17:56 Pulse Oximetry 92 L 01/15/18 17:56 Last Documented Vital Signs Temperature 98.7 F 01/15/18 17:56 Pulse Rate 96 H 01/15/18 21:00 Respiratory Rate 18 01/15/18 21:00 Blood Pressure 101/60 01/15/18 21:00 Pulse Oximetry 93 L 01/15/18 21:00 Medical Decision Making CURTIS Attestation CURTIS supervised visit: Yes Attestation: I, Dr. Childress, have reviewed the advance practice practitioner's documentation and am in agreement, met with the patient face to face, made the diagnosis, and the medical decision making was done by me. *My assessment and Findings: Patient seen and evaluated with PA, please see PA note for further details. He has been having shortness of breath, came in with A. fib and RVR rates in the 140s, was given verapamil with improvement in rates , coming down to 100-120, and is feeling improved. His BNP is 1000, and on exam after the rate is better controlled, he appears to be in less distress, is feeling improved. However concerning that he is in end-stage renal on dialysis and has some fluid overload, he will need dialysis tomorrow, and case was discussed with cardiology on-call, and they have suggested beta-blockers for better rate control. At this point, plan would be to admit the patient for further treatment. MDM Narrative Medical decision making narrative: Patient is a 72-year-old male presenting to the emergency department for evaluation of shortness of breath and chest pain. On arrival patient was noted to be tachycardic, initial EKG shows atrial fibrillation with rapid ventricular response. Patient was placed on classroom monitor, continuous pulse oximetry. IV access was established. Labs and imaging ordered and pending. Verapamil 2.5 mg IV 1 dose ordered. Pt initially responded to verapamil however pt became tachycardic again and was administered a second dose of verapamil. 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 Discussed with business intelligence consultant [employer] plans staff officer Dr. Waters. He recommended 5mg IV lopressor x 3 doses. He also advised to place pt on lopressor 25mg PO every 6 hours. A consult was placed to him. Discussed with my attending physician. Pt was admitted to Dr. Hale. Labs and imaging reviewed. Lab Data Result diagrams: 01/15/18 18:55 01/15/18 18:55 Lab Results 01/15/18 01/15/18 01/15/18 Range/Units 18:55 18:55 18:55 WBC 7.8 (4.0-11.0) th/mm3 RBC 4.33 L (4.50-5.90) mil/mm3 Hgb 11.7 L (13.0-17.0) gm/dL Hct 36.9 L (39.0-51.0) % MCV 85.3 (80.0-100.0) fL MCH 27.0 (27.0-34.0) pg MCHC 31.6 L (32.0-36.0) % RDW 14.6 (11.6-17.2) % Plt Count 197 (150-450) th/mm3 MPV 9.2 (7.0-11.0) fL Neut % (Auto) 70.5 H (16.0-70.0) % Lymph % (Auto) 19.6 (9.0-44.0) % [place] % (Auto) 7.7 (0.0-8.0) % Eos % (Auto) 0.9 (0.0-4.0) % Baso % (Auto) 1.3 (0.0-2.0) % Neut # (Auto) 5.5 (1.8-7.7) th/mm3 Lymph # (Auto) 1.5 (1.0-4.8) th/mm3 [place] # (Auto) 0.6 (0.0-0.9) th/mm3 Eos # (Auto) 0.1 (0.0-0.4) th/mm3 Baso # (Auto) 0.1 (0.0-0.2) th/mm3 WBC Differential . Differential Comment Auto diff final PT 14.1 H (9.8-11.6) sec INR 1.4 Ratio APTT 29.2 (24.3-30.1) sec Sodium 139 (136-145) meq/L Potassium 4.3 (3.5-5.1) meq/L Chloride 100 (98-107) meq/L Carbon Dioxide 25.6 (21.0-32.0) meq/L Anion Gap 13 (5-15) meq/L BUN 44 H (7-18) mg/dL Creatinine 6.70 H (0.60-1.30) mg/dL Estimated GFR 8 L (>89) mL/min Random Glucose 92 (74-106) mg/dL Calcium 9.5 (8.5-10.1) mg/dL Magnesium (1.5-2.5) mg/dL Total Bilirubin 0.8 (0.2-1.0) mg/dL AST 14 L (15-37) U/L ALT 14 (12-78) U/L Alkaline Phosphatase 153 H (45-117) U/L Total Creatine Kinase (39-308) U/L Troponin I Less than 0.02 L (0.02-0.05) ng/mL B-Natriuretic Peptide (0-100) pg/mL Total Protein 8.3 H (6.4-8.2) g/dL Albumin 3.1 L (3.4-5.0) g/dL TSH (0.358-3.740) uIU/mL Free T4 (0.76-1.46) ng/dL 01/15/18 01/15/18 01/15/18 Range/Units 18:55 18:55 18:55 WBC (4.0-11.0) th/mm3 RBC (4.50-5.90) mil/mm3 Hgb (13.0-17.0) gm/dL Hct (39.0-51.0) % MCV (80.0-100.0) fL MCH (27.0-34.0) pg MCHC (32.0-36.0) % RDW (11.6-17.2) % Plt Count (150-450) th/mm3 MPV (7.0-11.0) fL Neut % (Auto) (16.0-70.0) % Lymph % (Auto) (9.0-44.0) % [place] % (Auto) (0.0-8.0) % Eos % (Auto) (0.0-4.0) % Baso % (Auto) (0.0-2.0) % Neut # (Auto) (1.8-7.7) th/mm3 Lymph # (Auto) (1.0-4.8) th/mm3 [place] # (Auto) (0.0-0.9) th/mm3 Eos # (Auto) (0.0-0.4) th/mm3 Baso # (Auto) (0.0-0.2) th/mm3 WBC Differential Differential Comment PT (9.8-11.6) sec INR Ratio APTT (24.3-30.1) sec Sodium (136-145) meq/L Potassium (3.5-5.1) meq/L Chloride (98-107) meq/L Carbon Dioxide (21.0-32.0) meq/L Anion Gap (5-15) meq/L BUN (7-18) mg/dL Creatinine (0.60-1.30) mg/dL Estimated GFR (>89) mL/min Random Glucose (74-106) mg/dL Calcium (8.5-10.1) mg/dL Magnesium 2.3 (1.5-2.5) mg/dL Total Bilirubin (0.2-1.0) mg/dL AST (15-37) U/L ALT (12-78) U/L Alkaline Phosphatase (45-117) U/L Total Creatine Kinase 33 L (39-308) U/L Troponin I (0.02-0.05) ng/mL B-Natriuretic Peptide 1096 H (0-100) pg/mL Total Protein (6.4-8.2) g/dL Albumin (3.4-5.0) g/dL TSH 0.684 (0.358-3.740) uIU/mL Free T4 1.56 H (0.76-1.46) ng/dL Imaging Data Radiologist's impression: Chest X-Ray 01/15/18 18:13 CONCLUSION: Mild interstitial prominence without focal airspace opacities. Slight improvement prior 12/12/2017. Stable cardiomegaly. Discharge Plan Discharge Disposition Patient Disposition: 30 Still Patient Discharge Condition Condition: Stable Discharge Details Diagnosis: Atrial fibrillation with rapid ventricular response, CHF (congestive heart failure), Chronic kidney disease with end stage renal failure on dialysis Physicians Team ED Provider: Vanita Childress ED Midlevel Provider: Renata Argueta Primary Care Provider: [facility] [place] Attending Provider: Sarah Hale Other Providers: Eduardo Salvador ; Leroy Waters Status ED Status: Admitted Patient
--- NOTE | 2018-01-15 18:35 | XR ---
EXAM DATE: 01/15/2018 6:30 PM EDT AGE/SEX: 72 years / Male INDICATIONS: Shortness of breath. CLINICAL DATA: This is the patient's initial encounter. Patient reports that signs and symptoms have been present for 1 day and indicates a pain score of 0/10. MEDICAL/SURGICAL HISTORY: . Hypertension. Chronic obstructive pulmonary disease. Congestive hea rt failure. . Port. COMPARISON: C, CHEST SINGLE AP, 12/12/2017. C, CHEST SINGLE AP, 12/08/2017. . FINDINGS: Double-lumen catheter is stable in position. Mild indistinctness of the central and infrahilar bronch opulmonary markings are slightly improved when compared to prior. No focal areas of consolidation. Mo derate prominence of the interstitial markings throughout both lungs. The heart is moderately enlarge d, stable in size. CONCLUSION: Mild interstitial prominence without focal airspace opacities. Slight improvement prior 12/12/2017. St able cardiomegaly. Electronically signed by: Reynaldo Norman MD 01/15/2018 6:33 PM EDT
[2018-01-15] MEDS ORDERED: Sodium Chlor 0.9% Inj 250 ML IV.SIG ONE (19:01)
[2018-01-15 19:14] LABS: Baso # (Auto) 0.1 th/mm3 (0.0-0.2); Baso % (Auto) 1.3 % (0.0-2.0); Eos # (Auto) 0.1 th/mm3 (0.0-0.4); Eos % (Auto) 0.9 % (0.0-4.0); Hematocrit 36.9 % (39.0-51.0); Hemoglobin 11.7 gm/dL (13.0-17.0); Lymph # (Auto) 1.5 th/mm3 (1.0-4.8); Lymph % (Auto) 19.6 % (9.0-44.0); Mean Corpuscular HGB Conc 31.6 % (32.0-36.0); Mean Corpuscular Volume 85.3 fL (80.0-100.0); Mean Platelet Volume 9.2 fL (7.0-11.0); Mono # (Auto) 0.6 th/mm3 (0.0-0.9); Mono % (Auto) 7.7 % (0.0-8.0); Neut # (Auto) 5.5 th/mm3 (1.8-7.7); Neut % (Auto) 70.5 % (16.0-70.0); Platelet Count 197 th/mm3 (150-450); Red Blood Count 4.33 mil/mm3 (4.50-5.90); Red Cell Distribution Width 14.6 % (11.6-17.2); White Blood Count 7.8 th/mm3 (4.0-11.0)
[2018-01-15 19:26] LABS: Activated Partial Thrombo Time 29.2 sec (24.3-30.1); INR 1.4 Ratio; Prothrombin Time 14.1 sec (9.8-11.6)
[2018-01-15 19:29] LABS: Alanine Aminotransferase 14 U/L (12-78); Albumin 3.1 g/dL (3.4-5.0); Anion Gap 13 meq/L (5-15); Aspartate Aminotransferase 14 U/L (15-37); Blood Urea Nitrogen 44 mg/dL (7-18); Calcium 9.5 mg/dL (8.5-10.1); Carbon Dioxide 25.6 meq/L (21.0-32.0); Chloride 100 meq/L (98-107); Glomerular Filtration Rate 8 mL/min (>89); Glucose,Random 92 mg/dL (74-106); Potassium 4.3 meq/L (3.5-5.1); Sodium 139 meq/L (136-145)
[2018-01-15 19:30] LABS: Magnesium 2.3 mg/dL (1.5-2.5)
[2018-01-15 19:33] LABS: Alkaline Phosphatase 153 U/L (45-117); Total Protein 8.3 g/dL (6.4-8.2)
[2018-01-15] MEDS ORDERED: Metoprolol Inj 5 MG/5 ML Vial IV.PUSH STA (20:19)
[2018-01-15 20:46] LABS: Free T4 (Free Thyroxine) 1.56 ng/dL (0.76-1.46); Thyroid Stimulating Hormone 0.684 uIU/mL (0.358-3.740)
[2018-01-15] MEDS: Metoprolol Inj 5 MG/5 ML Vial IV.PUSH PRN (20:53)
--- NOTE | 2018-01-15 21:04 | P.HPIM ---
History of Present Illness Primary Care Physician: [facility] History of Present Illness: This is a 72-year-old male with a PMH of HTN, Hyperlipidemia, CHF (Echo 2017 with EF 55%) and ESRD on HD M// who was sent to the ER from [facility] for c/o chest pain and palpitations. Chest pain substernal, pressure/sore-like , severe, 9/10, non-radiating, worse w/ inspiration. Recent admit 12/08-12/18/17 for episode of SVT and worsening renal function requiring emergent dialysis, s/ p Permacath placement 12/09/17 and LUE AV Fistula 12/17/[address] Hutson, currently on HD M//. Today, pt w/ c/o chest pain and palpitations, found to be in A-fib w/ RVR, HR 140-150's on arrival, s/p Verapamil 2.5mg IV x2 doses w/ minimal improvement. Dr. Waters consulted, recommended Metoprolol 5mg IV x3 and Metoprolol 25mg PO q6h. HR now 100's. CBC unremarkable. INR 1.4. Creatinine 6.7. Troponin negative. BNP 1096. CXR mild interstitial prominence , slightly improved. - Diagnosis (1) Atrial fibrillation with RVR (2) Chest pain (3) ESRD (end stage renal disease) on dialysis (4) CHF (congestive heart failure) Inpatient Certification: I certify that the inpatient services were ordered in accordance with Medicare regulations governing the order. This includes certification that hospital inpatient services are reasonable and necessary and in the case of services not specified as inpatient-only under 42 CFR 419.22(n), that they are appropriately provided as inpatient services in accordance to with the 2-midnight benchmark under 43 CFR 412.3(e) Estimated Total Length of Stay (Days): 2 Plans for Post Hospital Care: Not yet determined Review of Systems All other systems reviewed negative except as stated in HPI PMFSH - History History Provided By: Patient - Medical History Medical History: Medical History (Last Reviewed 01/15/18 @ 18:39 by CRISTIANE Salvador) Dialysis patient Fistula ESRD (end stage renal disease) on dialysis Hypertension Type 2 diabetes mellitus CHF (congestive heart failure), NYHA class I - Tobacco History Smoking Status: Former smoker - Alcohol History How Often Do You Have a Drink Containing Alcohol: Never - Substance Use History Substance History: No History of Abuse - Travel History Recent Travel in the [place] Within the Last 8 Weeks: No Recent Travel Out of the Country Within the Last 8 Weeks: No - Immunization History Tetanus Immunization: <5 Years Medications and Allergies Active Medications: Active Medications Aspirin (Ecotrin) 81 mg PO DAILY PEDRO Atorvastatin Calcium (Lipitor) 80 mg PO DAILY PEDRO Bisacodyl (Dulcolax Supp) 10 mg RECTAL DAILY PRN PRN Reason: SEVERE CONSITIPATION Budesonide/Formoterol Fumarate (Symbicort 160/4.5 Mcg Inh) 2 puff INH BID PEDRO Metoprolol Tartrate (Lopressor) 25 mg PO Q6H PEDRO Metoprolol Tartrate (Lopressor Inj) 5 mg IV.PUSH Q5M PRN PRN Reason: tachycardia Last Admin: 01/15/18 20:53 Dose: 5 mg Allergies Allergy/AdvReac Type Severity Reaction Status Date / Time No Known Allergies Allergy Unverified 01/15/18 18:21 Home Medications Medication Instructions Recorded Confirmed Type aspirin [Aspir-81] 81 mg PO DAILY 01/15/18 01/15/18 History atorvastatin 80 mg PO DAILY 01/15/18 01/15/18 History budesonide-formoterol [Symbicort] 2 puff INHALATION BID 01/15/18 01/15/18 History buspirone 5 mg PO DAILY 01/15/18 01/15/18 History carvedilol [Coreg] 3.125 mg PO BID 01/15/18 01/15/18 History ergocalciferol (vitamin D2) 50,000 unit PO QWEEK 01/15/18 01/15/18 History [Vitamin D2] furosemide 80 mg PO DAILY 01/15/18 01/15/18 History hydralazine 25 mg PO BID 01/15/18 01/15/18 History multivitamin 1 tab PO DAILY 01/15/18 01/15/18 History Exam Vital signs: Vital Signs 01/15/18 17:56 01/15/18 18:03 01/15/18 18:44 Temperature 98.7 F Pulse Rate 142 H 136 H 90 Respiratory Rate 12 20 21 Blood Pressure 149/82 H 108/74 90/74 L Pulse Oximetry 92 L 93 L 95 01/15/18 20:26 01/15/18 20:52 Temperature Pulse Rate 114 H 110 H Respiratory Rate 18 18 Blood Pressure 129/81 110/74 Pulse Oximetry 95 94 L Intake & Output 01/15/18 01/15/18 01/16/18 06:59 18:59 06:59 Weight 101.151 kg Narrative: PE: GENERAL: Extremely pleasant elderly white male in no acute distress. HEENT: PERRLA, EOMI. No scleral icterus or conjunctival pallor. No lid lag or facial droop. CARDIOVASCULAR: Irregularly irregular, and A. fib, HR 100. No obvious murmurs to auscultation. No chest tenderness to palpation. RESPIRATORY: No obvious rhonchi or wheezing. Clear to auscultation. Breath sounds equal bilaterally. GASTROINTESTINAL: Abdomen soft, non-tender, nondistended. BS normal. MUSCULOSKELETAL: Extremities without clubbing, cyanosis, or edema. No obvious deformities. LUE AV Fistula NEUROLOGICAL: Awake, alert and oriented x4. No focal neurologic deficits. Moving both upper and lower extremities spontaneously. Results - Labs CBC & Chem 7: 01/15/18 18:55 01/15/18 18:55 Labs: Short CBC 01/15/18 Range/Units 18:55 WBC 7.8 (4.0-11.0) th/mm3 Hgb 11.7 L (13.0-17.0) gm/dL Hct 36.9 L (39.0-51.0) % Plt Count 197 (150-450) th/mm3 BMP 01/15/18 18:55 Sodium 139 Potassium 4.3 Chloride 100 Carbon Dioxide 25.6 BUN 44 H Creatinine 6.70 H Calcium 9.5 Cardiac Enzymes 01/15/18 01/15/18 Range/Units 18:55 18:55 Total Creatine Kinase 33 L (39-308) U/L Troponin I Less than 0.02 L (0.02-0.05) ng/mL Liver Function 01/15/18 Range/Units 18:55 Total Bilirubin 0.8 (0.2-1.0) mg/dL AST 14 L (15-37) U/L ALT 14 (12-78) U/L Alkaline Phosphatase 153 H (45-117) U/L Albumin 3.1 L (3.4-5.0) g/dL - Imaging Impressions Chest X-Ray 01/15/18 18:13 CONCLUSION: Mild interstitial prominence without focal airspace opacities. Slight improvement prior 12/12/2017. Stable cardiomegaly. Caprini VTE Risk Assessment Caprini VTE Risk Assessment: No/Low Risk (score <= 1) Caprini Risk Assessment Model: Point Value = 1 Point Value = 2 Point Value = 3 Point Value = 5 Age 41-60 Minor surgery BMI > 25 kg/m2 Swollen legs Varicose veins or History of unexplained or recurrent spontaneous Oral contraceptives or hormone replacement Sepsis (< 1 month) Serious lung disease, including pneumonia (< 1 month) Abnormal pulmonary function Acute myocardial infarction Congestive heart failure (< 1 month) History of inflammatory bowel disease Medical patient at bed rest Age 61-74 Arthroscopic surgery Major open surgery (> 45 min) Laparoscopic surgery (> 45 min) Malignancy Confined to bed (> 72 hours) Immobilizing plaster cast Central venous access Age >= 75 History of VTE Family history of VTE Factor V Leiden Prothrombin [id number] Lupus anticoagulant Anticardiolipin antibodies Elevated serum homocysteine Heparin-induced thrombocytopenia Other congenital or acquired thrombophilia Stroke (< 1 month) Elective arthroplasty Hip, pelvis, or leg fracture Acute spinal cord injury (< 1 month) Prophylaxis Regimen: Total Risk Factor Score Risk Level Prophylaxis Regimen 0-1 Low Early ambulation 2 Moderate Order ONE of the following: *Sequential Compression Device (SCD) *Heparin 5000 units SQ BID 3-4 Higher Order ONE of the following medications: *Heparin 5000 units SQ TID *Enoxaparin/Lovenox 40 mg SQ daily (WT < 150 kg, CrCl > 30 mL/min) *Enoxaparin/Lovenox 30 mg SQ daily (WT < 150 kg, CrCl > 10-29 mL/min) *Enoxaparin/Lovenox 30 mg SQ BID (WT < 150 kg, CrCl > 30 mL/min) AND/OR *Sequential Compression Device (SCD) 5 or more Highest Order ONE of the following medications: *Heparin 5000 units SQ TID (Preferred with Epidurals) *Enoxaparin/Lovenox 40 mg SQ daily (WT < 150 kg, CrCl > 30 mL/min) *Enoxaparin/Lovenox 30 mg SQ daily (WT < 150 kg, CrCl > 10-29 mL/min) *Enoxaparin/Lovenox 30 mg SQ BID (WT < 150 kg, CrCl > 30 mL/min) AND *Sequential Compression Device (SCD) Assessment and Plan - Assessment (1) Atrial fibrillation with RVR Code(s): I48.91 - Unspecified atrial fibrillation Status: Acute (2) Chest pain Code(s): R07.9 - Chest pain, unspecified Status: Acute (3) ESRD (end stage renal disease) on dialysis Code(s): N18.6 - End stage renal disease; Z99.2 - Dependence on renal dialysis Status: Acute (4) CHF (congestive heart failure) Code(s): I50.9 - Heart failure, unspecified Status: Acute - Plan A/P: 1. Afib w/ RVR: New Onset, HR 140-150's on arrival, s/p Verapamil 2.5mg IV x2 in ER w/ no response, Dr. Waters consulted, recommended Metoprolol 5mg IV x3 and Metoprolol 25mg po q6h, HR currently 100's, transient episodes of tachycardia, monitor closely, telemetry. Check serial cardiac enzymes to eval for underlying ischemia. 2. CHF: Chronic. Diastolic. Echo 12/10/17 w/ EF 55%, BNP 1096, CXR w/ mild interstitial prominence but improved from previous, images reviewed by me. Monitor I/O, resume home medications. 3. Chest Pain: Likely secondary to A-fib, chest pain currently resolved, check serial cardiac enzymes as above, Morphine prn, Cardiology to eval. 4. ESRD on HD: M/W/F, s/p LUE AV Fistula 12/17/[address] Hutson, Permacath placed 12/09/17. Consult Nephrology to resume HD as scheduled. 5. DVT Prophylaxis: SCD/Teds 6. Social work for d/c planning as needed 7. Case discussed w/ ER physician at length, labs/records/imaging reviewed by me. (4) CHF (congestive heart failure) Qualifiers: Heart failure type: unspecified Heart failure chronicity: unspecified Qualified Code(s): I50.9 - Heart failure, unspecified
[2018-01-16] MEDS: Metoprolol Inj 5 MG/5 ML Vial IV.PUSH PRN (00:15)
[2018-01-16] MEDS: Metoprolol Tartrate 25 MG Tablet PO SCH ×5 (05:35→21:16)
[2018-01-16] MEDS: Esmolol 2,500 mg/250 mL Premix 2,500 MG/250 ML BAG IV.CONT PRN ×2 (08:24→17:12)
[2018-01-16 08:38] LABS: Alanine Aminotransferase 15 U/L (12-78); Albumin 2.6 g/dL (3.4-5.0); Alkaline Phosphatase 128 U/L (45-117); Anion Gap 9 meq/L (5-15); Aspartate Aminotransferase 28 U/L (15-37); Blood Urea Nitrogen 50 mg/dL (7-18); Calcium 8.6 mg/dL (8.5-10.1); Carbon Dioxide 27.6 meq/L (21.0-32.0); Chloride 103 meq/L (98-107); Glomerular Filtration Rate 7 mL/min (>89); Glucose,Random 103 mg/dL (74-106); Potassium 4.8 meq/L (3.5-5.1); Sodium 140 meq/L (136-145); Total Protein 7.2 g/dL (6.4-8.2)
[2018-01-16] MEDS: Albumin Human 25% Inj 100 ML IV.SIG PRN (10:15)
--- NOTE | 2018-01-16 11:35 | MB ---
cc: Leroy Waters MD DATE: 01/16/2018 HISTORY OF PRESENT ILLNESS: Angel is a very pleasant gentleman with history of CHF, end-stage renal disease on dialysis, hypertension, type 2 diabetes mellitus, who presents with palpitations, was found to be in atrial fibrillation with rapid ventricular response, otherwise denies any chest pain, fever, chills, cough, chills, GI or bleeding, PND, orthopnea, syncope or dizziness. PAST MEDICAL HISTORY: As per history of present illness. ALLERGIES: NONE. SOCIAL HISTORY: He is a former smoker. Denies alcohol use. MEDICATIONS: 1. Aspirin 81 mg a day. 2. Lipitor 80 mg daily. 3. Symbicort. 4. Esmolol drip. 5. Lasix 80 daily. 6. Lactulose. 7. Metoprolol 25 every 6 hours. PHYSICAL EXAMINATION: VITAL SIGNS: Pulse 124, blood pressure 109/54, respiratory rate 24. GENERAL: He is alert and oriented x 3, in no acute distress. NECK: Supple. No JVD. No bruit. CARDIOVASCULAR: S1, S2. No murmurs, rubs, gallops. LUNGS: Clear to auscultation bilaterally. ABDOMEN: Soft, nontender and nondistended with positive bowel sounds. EXTREMITIES: No lower extremity edema. DIAGNOSTIC STUDIES: EKG shows AFib at a rate of 148 beats per minute, nonspecific ST-T wave changes. Chest x-ray: Mild interstitial prominence without focal airspace opacities, slight improvement from prior 12/12/2017, stable cardiomegaly. Labs: White count 7.8, hemoglobin 11.7, hematocrit 36.9, platelet count 197. INR 1.4. Sodium 140, potassium 4.9, chloride 103, bicarbonate 27.6, BUN 50, creatinine 7.37. Troponin less than 0.02 x 3. BNP is 1096. TSH is 0.684. DIAGNOSES: 1. Atrial fibrillation with rapid ventricular response. 2. Congestive heart failure. 3. End-stage renal failure. 4. Anemia. DISCUSSION: The patient's CHADS-VASc score is at least 3. He has hypertension, congestive heart failure, age over 65, and therefore recommend Coumadin or novel oral anticoagulant agent dosed per his renal function. His rate is improving on esmolol drip and oral beta ruth. We will continue to follow trends and hemodynamics and heart rate. MD AYESHA Goode/GUS , 11:08 AM , 11:33 AM
[2018-01-16] MEDS ORDERED: Gelatin 12 MM/7 MM Topical Foam TOPICAL PRN (13:04)
[2018-01-16] MEDS ORDERED: Acetaminophen 325 MG Tablet PO PRN (13:04)
[2018-01-16] MEDS ORDERED: Heparin 10,000 UNITS/10 ML Vial (for IV use) OTHER PRN (13:04)
[2018-01-16] MEDS ORDERED: Sod Chloride 0.9% Inj 1,000 ML OTHER PRN (13:04)
[2018-01-16] MEDS ORDERED: Sod Chloride 0.9% Inj 1,000 ML IV.CONT PRN (13:04)
--- NOTE | 2018-01-16 13:08 | P.CONNP ---
<Jyoti Ceron - Last Filed: 01/16/18 12:56> History of Present Illness Service: Nephrology Consult date: 01/16/18 Reason for Consult: ESRD on HD Primary Care Provider: [facility] History of Present Illness: This is a 72 y/o male patient who is residing at [facility] when he reportedly began having chest pain and palpitations. He was in A fib RVR on arrival, new onset. He has a hx of SVT, also DM II, HTN, Hyperlipidemia, and CHF (Echo 12/10/2017 with EF 55%). He was placed on an esmolol gtt. This patient dialyzes MWF, is seen during dialysis today. He is awake, not in distress. His newly placed AVF (12/17) by Dr. Hutson is bruised and slighty painful. We are using a PermCath (placed 12/09) for dialysis. He is a full code, and has been evaluated by cardiology. Review of Systems Constitutional: Denies anorexia, Denies lack of energy Cardiovascular: Reports chest pain, Reports irregular heart rhythm, Reports rapid, pounding, or irregular heartbeat, Denies generalized swelling, Denies radiating jaw, neck or arm pain, Denies shortness of breath Respiratory: Denies cough, Denies shortness of breath Gastrointestinal: Denies abdominal pain Neurologic: Denies dizziness, Denies fainting, Denies unsteadiness, Denies weakness PMFSH - History History Provided By: Patient - Medical History Medical History: Medical History (Last Reviewed 01/15/18 @ 18:39 by CRISTIANE Salvador) Dialysis patient Fistula ESRD (end stage renal disease) on dialysis Hypertension Type 2 diabetes mellitus CHF (congestive heart failure), NYHA class I - Tobacco History Second Hand Smoke Exposure: No Tobacco Use In Past 30 Days: No Smoking Status: Former smoker - Alcohol History How Often Do You Have a Drink Containing Alcohol: Never - Substance Use History Substance History: No History of Abuse - Travel History History of Recent Travel: No Recent Travel in the [place] Within the Last 8 Weeks: No Recent Travel Out of the Country Within the Last 8 Weeks: No - Immunization History Tetanus Immunization: <5 Years Medications and Allergies Allergies Allergy/AdvReac Type Severity Reaction Status Date / Time No Known Allergies Allergy Unverified 07/19/18 18:21 Home Medications Medication Instructions Recorded Confirmed Type aspirin [Aspir-81] 81 mg PO DAILY 01/15/18 01/15/18 History atorvastatin 80 mg PO DAILY 01/15/18 01/15/18 History budesonide-formoterol [Symbicort] 2 puff INHALATION BID 01/15/18 01/15/18 History buspirone 5 mg PO DAILY 01/15/18 01/15/18 History carvedilol [Coreg] 3.125 mg PO BID 01/15/18 01/15/18 History ergocalciferol (vitamin D2) 50,000 unit PO QWEEK 01/15/18 01/15/18 History [Vitamin D2] furosemide 80 mg PO DAILY 01/15/18 01/15/18 History hydralazine 25 mg PO BID 01/15/18 01/15/18 History multivitamin 1 tab PO DAILY 01/15/18 01/15/18 History Active Medications: Active Medications Al Hydroxide/Mg Hydroxide (Milk Of Magnesia Liq) 30 ml PO Q12H PRN PRN Reason: Mild Constipation Aspirin (Ecotrin) 81 mg PO DAILY PEDRO Atorvastatin Calcium (Lipitor) 80 mg PO DAILY PEDRO Bisacodyl (Dulcolax Supp) 10 mg RECTAL DAILY PRN PRN Reason: SEVERE CONSITIPATION Budesonide/Formoterol Fumarate (Symbicort 160/4.5 Mcg Inh) 2 puff INH BID PEDRO Buspirone HCl (Buspar) 5 mg PO DAILY PEDRO Furosemide (Lasix) 80 mg PO DAILY PEDRO Esmolol HCl (Brevibloc 2,500 Mg/Ns 250 Ml Premix) 2,500 mg in 250 mls @ 30.345 mls/hr IV.CONT TITRATE PRN; Protocol PRN Reason: Per Protocol Last Admin: 01/16/18 08:24 Dose: 50 mcg/kg/min, 30.35 mls/hr Lactulose (Lactulose Liq) 30 ml PO DAILY PRN PRN Reason: SEVERE CONSITIPATION Metoprolol Tartrate (Lopressor) 25 mg PO Q6H [facility] Last Admin: 01/16/18 08:13 Dose: 25 mg Morphine Sulfate (Morphine Inj) 2 mg IV.PUSH Q4H PRN PRN Reason: PAIN 6-10 Multivitamins (Theragran) 1 tab PO DAILY PEDRO Ondansetron HCl (Zofran Inj) 4 mg IV.PUSH Q6H PRN PRN Reason: NAUSEA OR VOMITING Senna/Docusate Sodium (Yasmine-Colace) 1 tab PO BID PEDRO Sennosides (Senokot) 17.2 mg PO Q12H PRN PRN Reason: Moderate Constipation Temazepam (Restoril) 15 mg PO HS PRN PRN Reason: INSOMNIA Exam Vital signs: Vital Signs 01/15/18 17:56 01/15/18 18:03 01/15/18 18:44 Temperature 98.7 F Pulse Rate 142 H 136 H 90 Respiratory Rate 12 20 21 Blood Pressure 149/82 H 108/74 90/74 L Pulse Oximetry 92 L 93 L 95 01/15/18 20:26 01/15/18 20:52 01/15/18 21:00 Temperature Pulse Rate 114 H 110 H 96 H Respiratory Rate 18 18 18 Blood Pressure 129/81 110/74 101/60 Pulse Oximetry 95 94 L 93 L 01/16/18 05:00 01/16/18 05:40 01/16/18 05:45 Temperature Pulse Rate 133 H 135 H 133 H Respiratory Rate 18 18 18 Blood Pressure 102/56 L 89/59 L 103/56 L Pulse Oximetry 93 L 92 L 93 L 01/16/18 06:16 01/16/18 07:00 01/16/18 08:00 Temperature Pulse Rate 126 H 135 H Respiratory Rate 17 18 Blood Pressure 105/66 116/63 Pulse Oximetry 93 L 95 89 L 01/16/18 09:00 01/16/18 09:30 Temperature Pulse Rate 120 H 124 H Respiratory Rate 18 24 Blood Pressure 91/53 L 109/54 L Pulse Oximetry 92 L Intake & Output 01/15/18 01/16/18 01/16/18 18:59 06:59 18:59 Weight 101.151 kg - Constitutional no acute distress, average body habitus - Routine HEENT Exam Head: Present: normocephalic Eye: Present: EOMI - Routine Neck Exam Present: supple, full ROM. Absent: JVD - Routine Chest/Breast/Axilla Exam Chest wall: Absent: tenderness, pacemaker - Routine Respiratory Exam Present: CTA bilaterally. Absent: accessory muscle use - Routine Cardiovascular Exam Present: S1, S2, tachycardia, irregular rhythm, irregularly irregular. Absent: murmur - Routine Abdominal Exam Present: soft, normoactive bowel sounds. Absent: guarding - Routine Extremities Exam Present: full ROM. Absent: edema - Routine Skin Exam Present: intact, warm - Routine Neurological Exam Present: alert, oriented X3, CN II-XII intact Results - Lab Results 01/15/18 18:55 01/16/18 05:30 Most recent lab results Calcium 8.6 mg/dL (8.5-10.1) D 01/16/18 05:30 Magnesium 2.3 mg/dL (1.5-2.5) 01/15/18 18:55 - Image Kidney/bladder ultrasound: other (not required ) Assessment and Plan - Assessment (1) Chronic kidney disease with end stage renal failure on dialysis Code(s): N18.6 - End stage renal disease; Z99.2 - Dependence on renal dialysis Status: Acute Plan: HD is MWF, seen during dialysis on a 2K, 350 BFR, goal 3L Intermittently monitor electrolytes High protein diet ordered Newly placed AVF left arm is not mature, protect that extremity. Low dose Epogen ordered for anemia. Resume home dose of Renvela, check phosphorus level. (2) Atrial fibrillation with rapid ventricular response Code(s): I48.91 - Unspecified atrial fibrillation Status: Acute Plan: Cardiology has evaluated. On Esmolol gtt. Oral beta ruth ordered, will need anticoagulation as CHADS-VASc score is 3. (3) Chest pain Code(s): R07.9 - Chest pain, unspecified Status: Acute Plan: Possible demand ischemia due to rapid heart rate. Cardiology is following the patient, appreciate recommendations. <Eduardo Salvador - Last Filed: 01/16/18 15:46> History of Present Illness Primary [facility] Provider[facility] - Medical History Medical History: Medical History (Last Reviewed 01/15/18 @ 18:39 by CRISTIANE Salvador) Dialysis patient Fistula ESRD (end stage renal disease) on dialysis Hypertension Type 2 diabetes mellitus CHF (congestive heart failure), NYHA class I Medications and Allergies Active Medications: Active Medications Acetaminophen (Tylenol) 650 mg PO UNSCH PRN PRN Reason: SEE LABEL COMMENTS Al Hydroxide/Mg Hydroxide (Milk Of Magnesia Liq) 30 ml PO Q12H PRN PRN Reason: Mild Constipation Aspirin (Ecotrin) 81 mg PO DAILY PEDRO Last Admin: 01/16/18 14:42 Dose: 81 mg Atorvastatin Calcium (Lipitor) 80 mg PO DAILY [facility] Bisacodyl (Dulcolax Supp) 10 mg RECTAL DAILY PRN PRN Reason: SEVERE CONSITIPATION Budesonide/Formoterol Fumarate (Symbicort 160/4.5 Mcg Inh) 2 puff INH BID [facility] Last Admin: 01/16/18 15:19 Dose: 2 puff Buspirone HCl (Buspar) 5 mg PO DAILY [facility] Last Admin: 01/16/18 15:19 Dose: 5 mg Clonidine HCl (Catapres) 0.1 mg PO UNSCH PRN PRN Reason: SEE LABEL COMMENTS Diphenhydramine HCl (Benadryl) 25 mg PO UNSCH PRN PRN Reason: SEE LABEL COMMENTS Epoetin Yovanny (Epogen Inj) 4,000 unit IV.PUSH UNSCH PRN PRN Reason: SEE LABEL COMMENTS Furosemide (Lasix) 80 mg PO DAILY [facility] Last Admin: 01/16/18 15:19 Dose: 80 mg Gelatin (Gelfoam 12 Mm/7 Mm Topical) 1 foam TOPICAL PRN PRN PRN Reason: help stop bleeding from site Gentamicin Sulfate (Gentamicin Inj) 20 mg OTHER WITH DIALYSIS PRN PRN Reason: Dwell Gentamycin Lock Heparin Sodium (Porcine) (Heparin Inj) 8,000 units OTHER WITH DIALYSIS PRN PRN Reason: for machine prime Heparin Sodium (Porcine) (Heparin Inj) 1,000 units OTHER WITH DIALYSIS PRN PRN Reason: Dwell Heparin to Fill Catheter Esmolol HCl (Brevibloc 2,500 Mg/Ns 250 Ml Premix) 2,500 mg in 250 mls @ 30.345 mls/hr IV.CONT TITRATE PRN; Protocol PRN Reason: Per Protocol Last Admin: 01/16/18 08:24 Dose: 50 mcg/kg/min, 30.35 mls/hr Albumin Human (Flexbumin 25% Inj) 100 mls @ 60 mls/hr IV.SIG WITH DIALYSIS PRN PRN Reason: hypotension / volume replace Sodium Chloride (Ns Inj) 1,000 mls @ 0 mls/hr OTHER .Q0M PRN PRN Reason: for prime and rinse back Sodium Chloride (Ns Inj) 1,000 mls @ 0 mls/hr IV.CONT .Q0M PRN PRN Reason: hypotension / volume replace Sodium Chloride (Ns Inj) 1,000 mls @ 200 mls/hr OTHER .Q5H PRN PRN Reason: for dialyzer flush PRN Lactulose (Lactulose Liq) 30 ml PO DAILY PRN PRN Reason: SEVERE CONSITIPATION Mannitol (Mannitol Inj) 12.5 gm IV.PUSH UNSCH PRN PRN Reason: hypotension / volume replace Metoprolol Tartrate (Lopressor) 25 mg PO Q6H [facility] Last Admin: 01/16/18 15:21 Dose: 25 mg Morphine Sulfate (Morphine Inj) 2 mg IV.PUSH Q4H PRN PRN Reason: PAIN 6-10 Multivitamins (Theragran) 1 tab PO DAILY [facility] Last Admin: 01/16/18 14:42 Dose: 1 tab Nitroglycerin (Nitrostat Sl) 0.4 mg SL Q5M PRN PRN Reason: CHEST PAIN Ondansetron HCl (Zofran Odt) 4 mg SL Q6H PRN PRN Reason: NAUSEA OR VOMITING Senna/Docusate Sodium (Yasmine-Colace) 1 tab PO BID [facility] Last Admin: 01/16/18 15:19 Dose: 1 tab Sennosides (Senokot) 17.2 mg PO Q12H PRN PRN Reason: Moderate Constipation Sodium Chloride (Ns Flush) 5 ml IV.FLUSH PRN PRN PRN Reason: flush each lumen during HD Temazepam (Restoril) 15 mg PO HS PRN PRN Reason: INSOMNIA Exam Vital signs: Vital Signs 01/15/18 17:56 01/15/18 18:03 01/15/18 18:44 Temperature 98.7 F Pulse Rate 142 H 136 H 90 Respiratory Rate 12 21 Blood Pressure 149/82 H 108/74 90/74 L Pulse Oximetry 92 L 93 L 95 01/15/18 20:26 01/15/18 20:52 01/15/18 21:00 Temperature Pulse Rate 114 H 110 H 96 H Respiratory Rate 18 Blood Pressure 129/81 110/74 101/60 Pulse Oximetry 95 94 L 93 L 01/16/18 05:00 01/16/18 05:40 01/16/18 05:45 Temperature Pulse Rate 133 H 135 H 133 H Respiratory Rate 18 Blood Pressure 102/56 L 89/59 L 103/56 L Pulse Oximetry 93 L 92 L 93 L 01/16/18 06:16 01/16/18 07:00 01/16/18 08:00 Temperature Pulse Rate 126 H 135 H Respiratory Rate 17 18 Blood Pressure 105/66 116/63 Pulse Oximetry 93 L 95 89 L 01/16/18 09:00 01/16/18 09:30 01/16/18 14:35 Temperature Pulse Rate 120 H 124 H 122 H Respiratory Rate 18 24 23 Blood Pressure 91/53 L 109/54 L 99/58 L Pulse Oximetry 92 L 92 L 01/16/18 15:00 Temperature Pulse Rate 129 H Respiratory Rate 25 H Blood Pressure 103/61 Pulse Oximetry 93 L Intake & Output 01/15/18 01/16/18 01/16/18 18:59 06:59 18:59 Output Total 3000 / 3000 Balance -3000 / -3000 Weight 101.151 kg Output: Hemodialysis Amount 3000 / 3000 Results - Lab Results 01/15/18 18:55 01/16/18 05:30 Most recent lab results Calcium 8.6 mg/dL (8.5-10.1) D 01/16/18 05:30 Magnesium 2.3 mg/dL (1.5-2.5) 01/15/18 18:55 Assessment and Plan - Assessment (1) Chronic kidney disease with end stage renal failure on dialysis Code(s): N18.6 - End stage renal disease; Z99.2 - Dependence on renal dialysis Status: Acute (2) Atrial fibrillation with rapid ventricular response Code(s): I48.91 - Unspecified atrial fibrillation Status: Acute (3) Chest pain Code(s): R07.9 - Chest pain, unspecified Status: Acute - Attending Attestation patient was seen and examined. Agree with above assessment and plan. Dialysis MWF, completed this morning. 3 liters removed. Cardiology evaluation. Monitor phosphorus and other electrolytes.
--- NOTE | 2018-01-16 13:36 | P.PN ---
Physical Exam Vital signs: Vital Signs 01/15/18 17:56 01/15/18 18:03 01/15/18 18:44 Temperature 98.7 F Pulse Rate 142 H 136 H 90 Respiratory Rate 12 20 21 Blood Pressure 149/82 H 108/74 90/74 L Pulse Oximetry 92 L 93 L 95 01/15/18 20:26 01/15/18 20:52 01/15/18 21:00 Temperature Pulse Rate 114 H 110 H 96 H Respiratory Rate 18 18 18 Blood Pressure 129/81 110/74 101/60 Pulse Oximetry 95 94 L 93 L 01/16/18 05:00 01/16/18 05:40 01/16/18 05:45 Temperature Pulse Rate 133 H 135 H 133 H Respiratory Rate 18 18 18 Blood Pressure 102/56 L 89/59 L 103/56 L Pulse Oximetry 93 L 92 L 93 L 01/16/18 06:16 01/16/18 07:00 01/16/18 08:00 Temperature Pulse Rate 126 H 135 H Respiratory Rate 17 18 Blood Pressure 105/66 116/63 Pulse Oximetry 93 L 95 89 L 01/16/18 09:00 01/16/18 09:30 Temperature Pulse Rate 120 H 124 H Respiratory Rate 18 24 Blood Pressure 91/53 L 109/54 L Pulse Oximetry 92 L Intake & Output 01/15/18 01/16/18 01/16/18 18:59 06:59 18:59 Weight 101.151 kg Narrative: Subjective: Patient was seen while in dialysis. Since he feels a little bit improved. Still with some shortness of breath, also if he feels his heart racing and the abnormal rhythm. Says however he feels improved since he came. Does not have a cardiology doctor. He denies any chest pain at this time. No nausea vomiting, he is able to eat and keep down food. Physical examination: GENERAL: Very pleasant elderly white male in no acute distress. HEENT: PERRLA, EOMI. No scleral icterus or conjunctival pallor. No lid lag or facial droop. CARDIOVASCULAR: Irregularly irregular rhythm. No MRG is RESPIRATORY: Clear to auscultation. Breath sounds equal bilaterally. GASTROINTESTINAL: Abdomen soft, non-tender, nondistended. BS normal. MUSCULOSKELETAL: Extremities without clubbing, cyanosis, or edema. No obvious deformities. LUE AV Fistula NEUROLOGICAL: Awake, alert and oriented x4. No focal neurologic deficits. Moving both upper and lower extremities spontaneously. A/P: 1. Afib w/ RVR: New Onset, HR 140-150's on arrival, s/p Verapamil 2.5mg IV x2 in ER w/ no response, Dr. Waters consulted, recommended Metoprolol 5mg IV x3 and Metoprolol 25mg po q6h, transient episodes of tachycardia, monitor closely , telemetry. Check serial cardiac enzymes to eval for underlying ischemia. Patient with sustained A. fib, he is placed on esmolol drip. Monitor and wean as tolerated 2. CHF: Chronic. Diastolic. Echo 12/10/17 w/ EF 55%, BNP 1096 on admission CXR reviewed: w/ mild interstitial prominence but improved from previous. Monitor I/O, resume home medications. 3. Chest Pain: Likely secondary to A-fib, chest pain currently resolved, check serial cardiac enzymes as above, Morphine prn, Cardiology to eval. 4. ESRD on HD: M/W/F, s/p LUE AV Fistula 12/17/[address] Hutson, Permacath placed 12/09/17. Consult Nephrology to resume HD as scheduled. DVT Prophylaxis: SCD/Teds CM consulted for d/c planning as needed Discussed with the patient, nurse Results - Labs CBC & Chem 7: 01/15/18 18:55 01/16/18 05:30 Laboratory Results - last 24 hr 01/15/18 01/15/18 01/15/18 18:55 18:55 18:55 WBC 7.8 RBC 4.33 L Hgb 11.7 L Hct 36.9 L MCV 85.3 MCH 27.0 MCHC 31.6 L RDW 14.6 Plt Count 197 MPV 9.2 Neut % (Auto) 70.5 H Lymph % (Auto) 19.6 [place] % (Auto) 7.7 Eos % (Auto) 0.9 Baso % (Auto) 1.3 Neut # (Auto) 5.5 Lymph # (Auto) 1.5 [place] # (Auto) 0.6 Eos # (Auto) 0.1 Baso # (Auto) 0.1 WBC Differential . Differential Comment Auto diff final PT 14.1 H INR 1.4 APTT 29.2 Sodium 139 Potassium 4.3 Chloride 100 Carbon Dioxide 25.6 Anion Gap 13 BUN 44 H Creatinine 6.70 H Estimated GFR 8 L Random Glucose 92 Calcium 9.5 Magnesium Total Bilirubin 0.8 AST 14 L ALT 14 Alkaline Phosphatase 153 H Total Creatine Kinase Troponin I Less than 0.02 L B-Natriuretic Peptide Total Protein 8.3 H Albumin 3.1 L TSH Free T4 01/15/18 01/15/18 01/15/18 18:55 18:55 18:55 WBC RBC Hgb Hct MCV MCH MCHC RDW Plt Count MPV Neut % (Auto) Lymph % (Auto) [place] % (Auto) Eos % (Auto) Baso % (Auto) Neut # (Auto) Lymph # (Auto) [place] # (Auto) Eos # (Auto) Baso # (Auto) WBC Differential Differential Comment PT INR APTT Sodium Potassium Chloride Carbon Dioxide Anion Gap BUN Creatinine Estimated GFR Random Glucose Calcium Magnesium 2.3 Total Bilirubin AST ALT Alkaline Phosphatase Total Creatine Kinase 33 L Troponin I B-Natriuretic Peptide 1096 H Total Protein Albumin TSH 0.684 Free T4 1.56 H 01/16/18 01/16/18 01/16/18 00:00 05:30 05:30 WBC RBC Hgb Hct MCV MCH MCHC RDW Plt Count MPV Neut % (Auto) Lymph % (Auto) [place] % (Auto) Eos % (Auto) Baso % (Auto) Neut # (Auto) Lymph # (Auto) [place] # (Auto) Eos # (Auto) Baso # (Auto) WBC Differential Differential Comment PT INR APTT Sodium 140 Potassium 4.8 Chloride 103 Carbon Dioxide 27.6 Anion Gap 9 BUN 50 H Creatinine 7.37 H Estimated GFR 7 L Random Glucose 103 Calcium 8.6 D Magnesium Total Bilirubin 0.7 AST 28 ALT 15 Alkaline Phosphatase 128 H Total Creatine Kinase Troponin I Less than 0.02 L Less than 0.02 L B-Natriuretic Peptide Total Protein 7.2 D Albumin 2.6 L TSH Free T4 - Imaging Impressions Chest X-Ray 01/15/18 18:13 CONCLUSION: Mild interstitial prominence without focal airspace opacities. Slight improvement prior 12/12/2017. Stable cardiomegaly. Assessment and Plan - Assessment (1) Atrial fibrillation with RVR Code(s): I48.91 - Unspecified atrial fibrillation Status: Acute (2) Chest pain Code(s): R07.9 - Chest pain, unspecified Status: Acute (3) ESRD (end stage renal disease) on dialysis Code(s): N18.6 - End stage renal disease; Z99.2 - Dependence on renal dialysis Status: Acute (4) CHF (congestive heart failure) Code(s): I50.9 - Heart failure, unspecified Status: Acute (4) CHF (congestive heart failure) Qualifiers: Heart failure type: unspecified Heart failure chronicity: unspecified Qualified Code(s): I50.9 - Heart failure, unspecified
--- NOTE | 2018-01-16 14:50 | ECG ---
Date Performed: 01/15/2018 Time Performed: 18:08:43 PTAGE: 72 years EKG: ATRIAL FIBRILLATION WITH RAPID VENTRICULAR RESPONSE BORDERLINE LEFT AXIS DEVIATION NONSPECI FIC ST & T-WAVE ABNORMALITY ABNORMAL ECG PREVIOUS TRACING : 12/08/2017 11.25 When compared to the prior EKG,the patient's rhythm now farzad ears to be consistent with atrial fibrilaltion. DOCTOR: Rashida Osuna Interpretating Date/Time 01/16/2018 14:48:53
[2018-01-16] MEDS: Senna/Docusate Sodium 8.6/50 MG Tablet PO SCH ×2 (15:19→21:16)
[2018-01-16] MEDS: Furosemide 80 MG Tablet PO SCH (15:19)
[2018-01-16] MEDS: Budesonide-Formoterol 160/4.5 MCG 6 GM Inhaler INH SCH ×2 (15:19→21:17)
[2018-01-16 19:33] LABS: Baso # (Auto) 0.1 th/mm3 (0.0-0.2); Baso % (Auto) 1.5 % (0.0-2.0); Eos % (Auto) 0.5 % (0.0-4.0); Hematocrit 33.5 % (39.0-51.0); Lymph # (Auto) 1.1 th/mm3 (1.0-4.8); Lymph % (Auto) 15.2 % (9.0-44.0); Mean Corpuscular HGB Conc 32.9 % (32.0-36.0); Mean Platelet Volume 9.2 fL (7.0-11.0); Mono # (Auto) 0.5 th/mm3 (0.0-0.9); Mono % (Auto) 6.4 % (0.0-8.0); Neut # (Auto) 5.6 th/mm3 (1.8-7.7); Neut % (Auto) 76.4 % (16.0-70.0); Platelet Count 157 th/mm3 (150-450); Red Blood Count 3.94 mil/mm3 (4.50-5.90); Red Cell Distribution Width 14.6 % (11.6-17.2); White Blood Count 7.4 th/mm3 (4.0-11.0)
[2018-01-16 20:20] LABS: Acanthocytes Occ; Ovalocytes 1+
[2018-01-16 20:21] LABS: Platelet Estimate Normal (Normal)
[2018-01-17] MEDS: Esmolol 2,500 mg/250 mL Premix 2,500 MG/250 ML BAG IV.CONT PRN ×2 (00:07→05:41)
[2018-01-17] MEDS: Metoprolol Tartrate 25 MG Tablet PO SCH ×4 (03:50→21:29)
[2018-01-17] MEDS ORDERED: Chlorhexidine Gluconate 2% 1 Pack (2 Cloths) TOPICAL PRN (04:00)
[2018-01-17] MEDS: Chlorhexidine Gluconate 2% 1 Pack (2 Cloths) TOPICAL SCH (05:40)
[2018-01-17] MEDS: Furosemide 80 MG Tablet PO SCH ×2 (09:17→09:23)
[2018-01-17] MEDS: Senna/Docusate Sodium 8.6/50 MG Tablet PO SCH ×2 (09:17→21:29)
[2018-01-17] MEDS: Budesonide-Formoterol 160/4.5 MCG 6 GM Inhaler INH SCH ×2 (09:38→21:29)
--- NOTE | 2018-01-17 10:28 | P.PNIM ---
Subjective Interval history: Patient is still in A. fib with RVR. Rate in the 130s. Currently on esmolol drip. BP borderline. Discussed with RN. He is due to receive metoprolol. Physical Exam Vital signs: Vital Signs 01/16/18 14:35 01/16/18 15:00 01/16/18 16:00 Temperature Pulse Rate 122 H 129 H 121 H Respiratory Rate 23 25 H 24 Blood Pressure 99/58 L 103/61 84/51 L Pulse Oximetry 92 L 93 L 92 L 01/16/18 17:00 01/16/18 20:00 01/17/18 00:00 Temperature 98.8 F 98.2 F Pulse Rate 122 H 138 H 129 H Respiratory Rate 22 20 20 Blood Pressure 88/51 L 84/53 L 85/49 L Pulse Oximetry 93 L 91 L 95 01/17/18 04:00 01/17/18 08:00 Temperature Pulse Rate 126 H Respiratory Rate 16 Blood Pressure 82/51 L Pulse Oximetry 92 L Intake & Output 01/16/18 01/17/18 01/17/18 18:59 06:59 18:59 Intake Total 250 / 250 840 / 840 Output Total 3000 / 3000 150 / 150 Balance -2750 / -2750 690 / 690 Weight 93 kg 95 kg Intake: IV 250 / 250 600 / 600 Brevibloc 2,500 mg/NS 250 mL 250 / 250 500 / 500 Premix 2,500 mg In 250 ml @ 50 MCG/KG/MIN 30.345 mls/hr IV. CONT TITRATE PRN Rx#:[id number] Flexbumin 25% Inj 100 ML @ 60 100 / 100 mls/hr IV.SIG WITH DIALYSIS PRN Rx#:[id number] Oral 240 / 240 Output: Urine 150 / 150 Hemodialysis Amount 3000 / 3000 Other: Weight On Admission 93 kg Narrative: GENERAL: Very pleasant elderly white male in no acute distress. CARDIOVASCULAR: Rate in the 120s. Irregularly irregular rhythm. RESPIRATORY: Clear to auscultation. Breath sounds equal bilaterally. GASTROINTESTINAL: Abdomen soft, non-tender, nondistended. BS normal. MUSCULOSKELETAL: Extremities without clubbing, cyanosis, or edema. No obvious deformities. LUE AV Fistula Results - Labs CBC & Chem 7: 01/16/18 18:52 01/16/18 05:30 Laboratory Results - last 24 hr 01/16/18 01/16/18 17:30 18:52 WBC 7.4 RBC 3.94 L Hgb 11.0 L Hct 33.5 L MCV 85.0 MCH 28.0 MCHC 32.9 RDW 14.6 Plt Count 157 MPV 9.2 Prelim Diff (Auto) Slide review pending Neut % (Auto) 76.4 H Lymph % (Auto) 15.2 [place] % (Auto) 6.4 Eos % (Auto) 0.5 Baso % (Auto) 1.5 Neut # (Auto) 5.6 Lymph # (Auto) 1.1 [place] # (Auto) 0.5 Eos # (Auto) 0.0 Baso # (Auto) 0.1 WBC Differential . Diff Scan Auto diff confirmed Differential Comment . Platelet Estimate Normal Platelet Morphology Enlarged H Ovalocytes 1+ H Acanthocytes (Spur) Occ H Nasal Screen MRSA (PCR) Not detected Assessment and Plan - Assessment (1) Atrial fibrillation with RVR Code(s): I48.91 - Unspecified atrial fibrillation Status: Acute (2) Chest pain Code(s): R07.9 - Chest pain, unspecified Status: Acute (3) ESRD (end stage renal disease) on dialysis Code(s): N18.6 - End stage renal disease; Z99.2 - Dependence on renal dialysis Status: Acute (4) CHF (congestive heart failure) Code(s): I50.9 - Heart failure, unspecified Status: Acute - Plan Afib w/ RVR: New Onset. -Appreciate cardiology following. Currently on esmolol drip. Scheduled Lopressor. Rate is not controlled. Patient to have a dose of Lopressor this morning. BP noted to be borderline low. Discussed with RN to hold Lasix. Continue to monitor closely. - [id number] score about 3. Patient would benefit from anticoagulant such as Eliquis or Coumadin. Decision anticoagulant pending order not he will have a procedure. -Further plans per cardiology. CHF: Chronic. Diastolic. Echo 12/10/17 w/ EF 55%, BNP 1096 on admission CXR reviewed: w/ mild interstitial prominence but improved from previous. Monitor I/O Chest Pain: Likely secondary to A-fib, chest pain resolved ESRD on HD: M/W/F, s/p LUE AV Fistula 12/17/[address] Hutson, Permacath placed . -Appreciate nephrology following. Continue hemodialysis as scheduled. GI prophylaxis: Stool softener PRN constipation. DVT PPx: Heparin (4) CHF (congestive heart failure) Qualifiers: Heart failure type: unspecified Heart failure chronicity: unspecified Qualified Code(s): I50.9 - Heart failure, unspecified
--- NOTE | 2018-01-17 13:02 | P.PNCA ---
Subjective Interval history: alert in nad Physical Exam Vital signs: Vital Signs 01/16/18 14:35 01/16/18 15:00 01/16/18 16:00 Temperature Pulse Rate 122 H 129 H 121 H Respiratory Rate 23 25 H 24 Blood Pressure 99/58 L 103/61 84/51 L Pulse Oximetry 92 L 93 L 92 L 01/16/18 17:00 01/16/18 20:00 01/17/18 00:00 Temperature 98.8 F 98.2 F Pulse Rate 122 H 138 H 129 H Respiratory Rate 22 20 20 Blood Pressure 88/51 L 84/53 L 85/49 L Pulse Oximetry 93 L 91 L 95 01/17/18 04:00 01/17/18 08:00 Temperature Pulse Rate 126 H Respiratory Rate 16 Blood Pressure 82/51 L Pulse Oximetry 92 L Intake & Output 01/16/18 01/17/18 01/17/18 18:59 06:59 18:59 Intake Total 250 / 250 840 / 840 Output Total 3000 / 3000 150 / 150 Balance -2750 / -2750 690 / 690 Weight 93 kg 95 kg Intake: IV 250 / 250 600 / 600 Brevibloc 2,500 mg/NS 250 mL 250 / 250 500 / 500 Premix 2,500 mg In 250 ml @ 50 MCG/KG/MIN 30.345 mls/hr IV. CONT TITRATE PRN Rx#:[id number] Flexbumin 25% Inj 100 ML @ 60 100 / 100 mls/hr IV.SIG WITH DIALYSIS PRN Rx#:[id number] Oral 240 / 240 Output: Urine 150 / 150 Hemodialysis Amount 3000 / 3000 Other: Weight On Admission 93 kg Assessment and Plan - Assessment (1) Atrial fibrillation with rapid ventricular response Code(s): I48.91 - Unspecified atrial fibrillation Status: Acute (2) CHF (congestive heart failure) Code(s): I50.9 - Heart failure, unspecified Status: Acute (3) Chronic kidney disease with end stage renal failure on dialysis Code(s): N18.6 - End stage renal disease; Z99.2 - Dependence on renal dialysis Status: Acute (4) Atrial fibrillation with RVR Code(s): I48.91 - Unspecified atrial fibrillation Status: Acute (5) ESRD (end stage renal disease) on dialysis Code(s): N18.6 - End stage renal disease; Z99.2 - Dependence on renal dialysis Status: Acute - Plan 1.) Afib with rvr - faling medical management due to hypotension, consult Dr Weinberg to consider avn ablation and ppm, ac held due to possibility of ppm placement today; ow rec coumadin or noac due to [id number] score = 2 (2) CHF (congestive heart failure) Qualifiers: Heart failure type: unspecified Heart failure chronicity: unspecified Qualified Code(s): I50.9 - Heart failure, unspecified
--- NOTE | 2018-01-17 13:12 | MB ---
cc: Helga Weinberg MD, Arthur W MD DATE: 01/17/2018 REFERRING PHYSICIAN: Dr. Waters. REASON FOR CONSULTATION: Management of atrial fibrillation with persistent tachycardia and hypotension. HISTORY OF PRESENT ILLNESS: Mr. Constantino is a 72-year-old gentleman who presented to [facility] with dyspnea and was found to have atrial fibrillation with tachycardia. He had recently been started on dialysis for end-stage renal disease. The echocardiogram in the past showed EF is preserved at 55%. He does have anemia with hematocrit 37. He also has diabetes and hypertension. So far his left arm AVF which is maturing. When he arrived in the ER, the patient was noted to have atrial fibrillation with heart rate of 130-140s. He was not sure about duration of atrial fibrillation. He denied any TIA or CVA. He is not on any anticoagulation. He was admitted and has been tried on esmolol drip, but so far, BP has been very tenuous with systolic in the 80s. It is very tough to start any medication with his BP. He also got Lasix 80 mg and has been started on dialysis 3 times a week. He makes a small amount of urine each day. He is an ex-smoker. PAST MEDICAL HISTORY: As above. ALLERGIES: NO KNOWN DRUG ALLERGIES. SOCIAL HISTORY: He is an ex-smoker. He does not drink a large amount of alcohol. He gets his care mainly at the [facility]. REVIEW OF SYSTEMS: HEENT: Normal. GASTROINTESTINAL: No nausea or vomiting. GENITOURINARY: No dysuria. MUSCULOSKELETAL: Fatigue. CARDIOVASCULAR: As above. CHEST: Some dyspnea. ENDOCRINE: Normal. SKIN: Normal. CENTRAL NERVOUS SYSTEM: Occasional dizziness. PHYSICAL EXAMINATION: VITAL SIGNS: Blood pressure in the 80s systolic with diastolic in the 50s, with heart rate to 130s-140s with underlying atrial fibrillation, respiratory rate is about 20, O2 saturation is 95%. HEENT: Normal oral exam. PERRLA. ENDOCRINE: There is no thyroid enlargement. LYMPHATICS: There is no lymphadenopathy. RESPIRATORY: Decreased breath sounds bilaterally, but no crackles. CARDIOVASCULAR: Irregular, tachycardia only. No loud murmurs. ABDOMEN: Active bowel sounds all 4 quadrants. GENITOURINARY: Deferred. MUSCULOSKELETAL: All range of motion intact. SKIN: The patient has left arm AVF with a port at the right subclavian vein area, some ecchymosis noted. NEUROLOGIC: There is no focal neurologic deficits. LABORATORY STUDIES: Hematocrit 37 with creatinine 1.4. MEDICATIONS: 1. Symbicort. 2. Hydralazine 25 mg b.i.d. 3. Coreg 3.125 mg b.i.d. 4. Atorvastatin of 80 mg. 5. Lasix 80 mg. 6. Aspirin 81 mg. 7. Multivitamins. 8. Buspirone. DIAGNOSTIC STUDIES: Again, her echocardiogram showed ejection fraction around 55%. EKG showed atrial fibrillation. ASSESSMENT AND PLAN: 1. Persistent atrial fibrillation of unknown duration with tachycardia. 2. Hypotension. 3. End-stage renal disease, on dialysis. 4. Possible chronic diastolic congestive heart failure, triggered by atrial fibrillation. 5. Anemia. PLAN: It is challenging to control atrial fibrillation with hypotension. I will start amiodarone p.o. I am afraid IV amiodarone will drop the blood pressure further. We will continue Coreg 3.125 mg if blood pressure can tolerate. He has at least a CHADS-VASc score of 3. We will start Coumadin to keep INR between 2 and 3. The other option would be Eliquis 5 mg b.i.d., but I am not sure he can afford Eliquis. I will continue other supportive care. I will discontinue hydralazine and continue atorvastatin for hypercholesterolemia. Continue Lasix and dialysis for removal of fluids. It will be challenging to use diuretics. We may relate mainly on hemodialysis to remove extra fluids. I also discussed the other options including pacemaker plus AV node ablation, but we are going to try medication first and see how he does. Hopefully, the patient will tolerate Coumadin. I would like to thank Dr. Waters for letting me participate in the care of Mr. Constantino. MD YONNY Hale/GUS , 12:34 PM , 01:11 PM
--- NOTE | 2018-01-17 13:34 | P.PNNP ---
Subjective Interval history: Patient with ESRD and atrial fibrillation with RVR low blood pressure Physical Exam Vital signs: Vital Signs 01/16/18 14:35 01/16/18 15:00 01/16/18 16:00 Temperature Pulse Rate 122 H 129 H 121 H Respiratory Rate 23 25 H 24 Blood Pressure 99/58 L 103/61 84/51 L Pulse Oximetry 92 L 93 L 92 L 01/16/18 17:00 01/16/18 20:00 01/17/18 00:00 Temperature 98.8 F 98.2 F Pulse Rate 122 H 138 H 129 H Respiratory Rate 22 20 20 Blood Pressure 88/51 L 84/53 L 85/49 L Pulse Oximetry 93 L 91 L 95 01/17/18 04:00 01/17/18 08:00 Temperature Pulse Rate 126 H Respiratory Rate 16 Blood Pressure 82/51 L Pulse Oximetry 92 L Intake & Output 01/16/18 01/17/18 01/17/18 18:59 06:59 18:59 Intake Total 250 / 250 840 / 840 Output Total 3000 / 3000 150 / 150 Balance -2750 / -2750 690 / 690 Weight 93 kg 95 kg Intake: IV 250 / 250 600 / 600 Brevibloc 2,500 mg/NS 250 mL 250 / 250 500 / 500 Premix 2,500 mg In 250 ml @ 50 MCG/KG/MIN 30.345 mls/hr IV. CONT TITRATE PRN Rx#:[id number] Flexbumin 25% Inj 100 ML @ 60 100 / 100 mls/hr IV.SIG WITH DIALYSIS PRN Rx#:[id number] Oral 240 / 240 Output: Urine 150 / 150 Hemodialysis Amount 3000 / 3000 Other: Weight On Admission 93 kg - Constitutional no acute distress - Routine HEENT Exam Head: Present: normocephalic - Routine Respiratory Exam Present: CTA bilaterally - Routine Cardiovascular Exam Present: irregularly irregular - Routine Abdominal Exam Present: soft - Routine Extremities Exam Present: edema Assessment and Plan - Assessment (1) ESRD (end stage renal disease) on dialysis Code(s): N18.6 - End stage renal disease; Z99.2 - Dependence on renal dialysis Status: Acute Plan: Patient had hemodialysis yesterday continue with Friday and Friday plan 3 L were removed Continue supportive care Low blood pressure and RVR with A. fib consulted Dr. Weinberg for possible ablation (2) CHF (congestive heart failure) Code(s): I50.9 - Heart failure, unspecified Status: Acute Qualifiers: Heart failure type: unspecified Heart failure chronicity: unspecified Qualified Code(s): I50.9 - Heart failure, unspecified (3) Atrial fibrillation with RVR Code(s): I48.91 - Unspecified atrial fibrillation Status: Acute Medications Active Medications Acetaminophen (Tylenol) 650 mg PO UNSCH PRN PRN Reason: SEE LABEL COMMENTS Al Hydroxide/Mg Hydroxide (Milk Of Jori Handy) 30 ml PO Q12H PRN PRN Reason: Mild Constipation Aspirin (Ecotrin) 81 mg PO DAILY [facility] Last Admin: 01/17/18 09:17 Dose: 81 mg Atorvastatin Calcium (Lipitor) 80 mg PO DAILY [facility] Last Admin: 01/17/18 09:19 Dose: 80 mg Bisacodyl (Dulcolax Supp) 10 mg RECTAL DAILY PRN PRN Reason: SEVERE CONSITIPATION Budesonide/Formoterol Fumarate (Symbicort 160/4.5 Mcg Inh) 2 puff INH BID [facility] Last Admin: 01/17/18 09:38 Dose: 2 puff Buspirone HCl (Buspar) 5 mg PO DAILY [facility] Last Admin: 01/16/18 15:19 Dose: 5 mg Chlorhexidine Gluconate (Chlorhexidine 2% Cloth) 3 pack TOPICAL DAILY@0400 [facility] Stop: 01/22/18 03:59 Last Admin: 01/17/18 05:40 Dose: 3 pack Chlorhexidine Gluconate (Chlorhexidine 2% Cloth) 3 pack TOPICAL DAILY@0400 PRN PRN Reason: Extra cloth needed Stop: 01/22/18 03:59 Clonidine HCl (Catapres) 0.1 mg PO UNSCH PRN PRN Reason: SEE LABEL COMMENTS Diphenhydramine HCl (Benadryl) 25 mg PO UNSCH PRN PRN Reason: SEE LABEL COMMENTS Epoetin Yovanny (Epogen Inj) 4,000 unit IV.PUSH UNSCH PRN PRN Reason: SEE LABEL COMMENTS Furosemide (Lasix) 80 mg PO DAILY [facility] Last Admin: 01/17/18 09:23 Dose: Not Given Gelatin (Gelfoam 12 Mm/7 Mm Topical) 1 foam TOPICAL PRN PRN PRN Reason: help stop bleeding from site Gentamicin Sulfate (Gentamicin Inj) 20 mg OTHER WITH DIALYSIS PRN PRN Reason: Dwell Gentamycin Lock Last Admin: 01/16/18 13:10 Dose: 20 mg Heparin Sodium (Porcine) (Heparin Inj) 8,000 units OTHER WITH DIALYSIS PRN PRN Reason: for machine prime Heparin Sodium (Porcine) (Heparin Inj) 1,000 units OTHER WITH DIALYSIS PRN PRN Reason: Dwell Heparin to Fill Catheter Heparin Sodium (Porcine) (Heparin Inj) 5,000 units SQ Q12H [facility] Esmolol HCl (Brevibloc 2,500 Mg/Ns 250 Ml Premix) 2,500 mg in 250 mls @ 30.345 mls/hr IV.CONT TITRATE PRN; Protocol PRN Reason: Per Protocol Last Admin: 01/17/18 05:41 Dose: 50 mcg/kg/min, 30.35 mls/hr Albumin Human (Flexbumin 25% Inj) 100 mls @ 60 mls/hr IV.SIG WITH DIALYSIS PRN PRN Reason: hypotension / volume replace Last Infusion: 01/16/18 19:49 Dose: Infused Sodium Chloride (Ns Inj) 1,000 mls @ 0 mls/hr OTHER .Q0M PRN PRN Reason: for prime and rinse back Sodium Chloride (Ns Inj) 1,000 mls @ 0 mls/hr IV.CONT .Q0M PRN PRN Reason: hypotension / volume replace Sodium Chloride (Ns Inj) 1,000 mls @ 200 mls/hr OTHER .Q5H PRN PRN Reason: for dialyzer flush PRN Lactulose (Lactulose Liq) 30 ml PO DAILY PRN PRN Reason: SEVERE CONSITIPATION Mannitol (Mannitol Inj) 12.5 gm IV.PUSH UNSCH PRN PRN Reason: hypotension / volume replace Metoprolol Tartrate (Lopressor) 25 mg PO Q6H [facility] Last Admin: 01/17/18 09:16 Dose: 25 mg Morphine Sulfate (Morphine Inj) 2 mg IV.PUSH Q4H PRN PRN Reason: PAIN 6-10 Multivitamins (Theragran) 1 tab PO DAILY [facility] Last Admin: 01/17/18 09:17 Dose: 1 tab Nitroglycerin (Nitrostat Sl) 0.4 mg SL Q5M PRN PRN Reason: CHEST PAIN Ondansetron HCl (Zofran Odt) 4 mg SL Q6H PRN PRN Reason: NAUSEA OR VOMITING Senna/Docusate Sodium (Yasmine-Colace) 1 tab PO BID [facility] Last Admin: 01/17/18 09:17 Dose: 1 tab Sennosides (Senokot) 17.2 mg PO Q12H PRN PRN Reason: Moderate Constipation Sodium Chloride (Ns Flush) 5 ml IV.FLUSH PRN PRN PRN Reason: flush each lumen during HD Temazepam (Restoril) 15 mg PO HS PRN PRN Reason: INSOMNIA Diagnostic Tests Laboratory: Laboratory Results - last 72 hr 01/15/18 01/15/18 01/15/18 18:55 18:55 18:55 WBC 7.8 RBC 4.33 L Hgb 11.7 L Hct 36.9 L MCV 85.3 MCH 27.0 MCHC 31.6 L RDW 14.6 Plt Count 197 MPV 9.2 Prelim Diff (Auto) Neut % (Auto) 70.5 H Lymph % (Auto) 19.6 Russell % (Auto) 7.7 Eos % (Auto) 0.9 Baso % (Auto) 1.3 Neut # (Auto) 5.5 Lymph # (Auto) 1.5 Russell # (Auto) 0.6 Eos # (Auto) 0.1 Baso # (Auto) 0.1 WBC Differential . Diff Scan Differential Comment Auto diff final Platelet Estimate Platelet Morphology Ovalocytes Acanthocytes (Spur) PT 14.1 H INR 1.4 APTT 29.2 Sodium 139 Potassium 4.3 Chloride 100 Carbon Dioxide 25.6 Anion Gap 13 BUN 44 H Creatinine 6.70 H Estimated GFR 8 L Random Glucose 92 Calcium 9.5 Magnesium Total Bilirubin 0.8 AST 14 L ALT 14 Alkaline Phosphatase 153 H Total Creatine Kinase Troponin I Less than 0.02 L B-Natriuretic Peptide Total Protein 8.3 H Albumin 3.1 L TSH Free T4 Nasal Screen MRSA (PCR) 01/15/18 01/15/18 01/15/18 18:55 18:55 18:55 WBC RBC Hgb Hct MCV MCH MCHC RDW Plt Count MPV Prelim Diff (Auto) Neut % (Auto) Lymph % (Auto) Russell % (Auto) Eos % (Auto) Baso % (Auto) Neut # (Auto) Lymph # (Auto) Russell # (Auto) Eos # (Auto) Baso # (Auto) WBC Differential Diff Scan Differential Comment Platelet Estimate Platelet Morphology Ovalocytes Acanthocytes (Spur) PT INR APTT Sodium Potassium Chloride Carbon Dioxide Anion Gap BUN Creatinine Estimated GFR Random Glucose Calcium Magnesium 2.3 Total Bilirubin AST ALT Alkaline Phosphatase Total Creatine Kinase 33 L Troponin I B-Natriuretic Peptide 1096 H Total Protein Albumin TSH 0.684 Free T4 1.56 H Nasal Screen MRSA (PCR) 01/16/18 01/16/18 01/16/18 00:00 05:30 05:30 WBC RBC Hgb Hct MCV MCH MCHC RDW Plt Count MPV Prelim Diff (Auto) Neut % (Auto) Lymph % (Auto) Russell % (Auto) Eos % (Auto) Baso % (Auto) Neut # (Auto) Lymph # (Auto) Russell # (Auto) Eos # (Auto) Baso # (Auto) WBC Differential Diff Scan Differential Comment Platelet Estimate Platelet Morphology Ovalocytes Acanthocytes (Spur) PT INR APTT Sodium 140 Potassium 4.8 Chloride 103 Carbon Dioxide 27.6 Anion Gap 9 BUN 50 H Creatinine 7.37 H Estimated GFR 7 L Random Glucose 103 Calcium 8.6 D Magnesium Total Bilirubin 0.7 AST 28 ALT 15 Alkaline Phosphatase 128 H Total Creatine Kinase Troponin I Less than 0.02 L Less than 0.02 L B-Natriuretic Peptide Total Protein 7.2 D Albumin 2.6 L TSH Free T4 Nasal Screen MRSA (PCR) 01/16/18 01/16/18 17:30 18:52 WBC 7.4 RBC 3.94 L Hgb 11.0 L Hct 33.5 L MCV 85.0 MCH 28.0 MCHC 32.9 RDW 14.6 Plt Count 157 MPV 9.2 Prelim Diff (Auto) Slide review pending Neut % (Auto) 76.4 H Lymph % (Auto) 15.2 Russell % (Auto) 6.4 Eos % (Auto) 0.5 Baso % (Auto) 1.5 Neut # (Auto) 5.6 Lymph # (Auto) 1.1 Russell # (Auto) 0.5 Eos # (Auto) 0.0 Baso # (Auto) 0.1 WBC Differential . Diff Scan Auto diff confirmed Differential Comment . Platelet Estimate Normal Platelet Morphology Enlarged H Ovalocytes 1+ H Acanthocytes (Spur) Occ H PT INR APTT Sodium Potassium Chloride Carbon Dioxide Anion Gap BUN Creatinine Estimated GFR Random Glucose Calcium Magnesium Total Bilirubin AST ALT Alkaline Phosphatase Total Creatine Kinase Troponin I B-Natriuretic Peptide Total Protein Albumin TSH Free T4 Nasal Screen MRSA (PCR) Not detected Result Diagrams: 01/16/18 18:52 01/16/18 05:30
[2018-01-17] MEDS ORDERED: Amiodarone 200 MG Tablet PO ONE (15:00)
[2018-01-17] MEDS: Amiodarone 200 MG Tablet PO SCH (18:48)
[2018-01-17] MEDS: Heparin - SQ 10,000 UNITS/ML Vial SQ SCH (21:29)
[2018-01-18] MEDS: Morphine Inj 4 MG/ML Vial IV.PUSH PRN ×2 (02:33→22:21)
[2018-01-18] MEDS: Metoprolol Tartrate 25 MG Tablet PO SCH ×4 (02:33→19:44)
[2018-01-18 04:32] LABS: Hematocrit 29.5 % (39.0-51.0); Hemoglobin 9.6 gm/dL (13.0-17.0); Mean Corpuscular HGB Conc 32.3 % (32.0-36.0); Mean Corpuscular Hemoglobin 27.5 pg (27.0-34.0); Mean Corpuscular Volume 85.2 fL (80.0-100.0); Mean Platelet Volume 8.9 fL (7.0-11.0); Platelet Count 161 th/mm3 (150-450); Red Blood Count 3.47 mil/mm3 (4.50-5.90); White Blood Count 6.8 th/mm3 (4.0-11.0)
[2018-01-18 04:50] LABS: INR 1.5 Ratio
[2018-01-18 04:51] LABS: Calcium 8.7 mg/dL (8.5-10.1); Carbon Dioxide 25.6 meq/L (21.0-32.0); Potassium 4.5 meq/L (3.5-5.1)
[2018-01-18] MEDS: Chlorhexidine Gluconate 2% 1 Pack (2 Cloths) TOPICAL SCH (05:11)
[2018-01-18] MEDS: Senna/Docusate Sodium 8.6/50 MG Tablet PO SCH ×2 (09:03→20:19)
[2018-01-18] MEDS: Amiodarone 200 MG Tablet PO SCH ×3 (09:03→18:10)
[2018-01-18] MEDS: Budesonide-Formoterol 160/4.5 MCG 6 GM Inhaler INH SCH ×2 (09:04→20:20)
[2018-01-18] MEDS: Heparin - SQ 10,000 UNITS/ML Vial SQ SCH ×3 (09:04→20:20)
--- NOTE | 2018-01-18 10:20 | P.PNCA ---
Subjective Interval history: alert in nad Physical Exam Vital signs: Vital Signs 01/17/18 12:00 01/17/18 16:00 01/17/18 20:00 Temperature 97.9 F 98.1 F 98.0 F Pulse Rate 135 H 127 H 127 H Respiratory Rate 21 15 22 Blood Pressure 86/53 L 84/50 L 92/50 L Pulse Oximetry 95 01/17/18 21:08 01/18/18 00:00 01/18/18 04:00 Temperature 98.2 F 98.2 F Pulse Rate 124 H 117 H Respiratory Rate 22 18 Blood Pressure 89/54 L 92/56 L Pulse Oximetry 95 93 L 93 L 01/18/18 07:32 Temperature Pulse Rate Respiratory Rate Blood Pressure Pulse Oximetry 94 L Intake & Output 01/17/18 01/18/18 01/18/18 18:59 06:59 18:59 Intake Total 720 / 720 Output Total 560 / 560 Balance 160 / 160 Weight 96.5 kg Intake: Oral 720 / 720 Output: Urine 560 / 560 Other: # Incontinent Voids 0 Date of Last Bowel Movement 01/17/18 Assessment and Plan - Assessment (1) Atrial fibrillation with rapid ventricular response Code(s): I48.91 - Unspecified atrial fibrillation Status: Acute (2) CHF (congestive heart failure) Code(s): I50.9 - Heart failure, unspecified Status: Acute (3) Chronic kidney disease with end stage renal failure on dialysis Code(s): N18.6 - End stage renal disease; Z99.2 - Dependence on renal dialysis Status: Acute (4) Atrial fibrillation with RVR Code(s): I48.91 - Unspecified atrial fibrillation Status: Acute (5) ESRD (end stage renal disease) on dialysis Code(s): N18.6 - End stage renal disease; Z99.2 - Dependence on renal dialysis Status: Acute - Plan 1.) Afib with rvr - failing medical management due to hypotension, Dr Weinberg started amio and coumadin, rates still in 120's, consider avn ablation and ppm if hr trend remains > 100, d/w patient (2) CHF (congestive heart failure) Qualifiers: Heart failure type: unspecified Heart failure chronicity: unspecified Qualified Code(s): I50.9 - Heart failure, unspecified
--- NOTE | 2018-01-18 11:21 | P.PNIM ---
Subjective Interval history: FERNANDO RN. BP lower with systolic in the 60's and 70's. MAP in the 50's Patient is sitting in bed and does not appear to be in acute distress but he reports lightheadedness and chest discomfort. He states his shortness of breath is unchanged. Physical Exam Vital signs: Vital Signs 01/17/18 12:00 01/17/18 16:00 01/17/18 20:00 Temperature 97.9 F 98.1 F 98.0 F Pulse Rate 135 H 127 H 127 H Respiratory Rate 21 15 22 Blood Pressure 86/53 L 84/50 L 92/50 L Pulse Oximetry 95 01/17/18 21:08 01/18/18 00:00 01/18/18 04:00 Temperature 98.2 F 98.2 F Pulse Rate 124 H 117 H Respiratory Rate 22 18 Blood Pressure 89/54 L 92/56 L Pulse Oximetry 95 93 L 93 L 01/18/18 07:00 01/18/18 07:32 01/18/18 08:00 Temperature Pulse Rate 120 H Respiratory Rate Blood Pressure Pulse Oximetry 94 L 92 L Intake & Output 01/17/18 01/18/18 01/18/18 18:59 06:59 18:59 Intake Total 720 / 720 Output Total 560 / 560 Balance 160 / 160 Weight 96.5 kg Intake: Oral 720 / 720 Output: Urine 560 / 560 Other: # Incontinent Voids 0 Date of Last Bowel Movement 01/17/18 01/16/18 Narrative: GENERAL: No acute distress SKIN: Warm and dry. HEAD: Atraumatic. Normocephalic. EYES: Pupils equal and round. No scleral icterus. No injection or drainage. ENT: No nasal bleeding or discharge. Mucous membranes pink and moist. NECK: Trachea midline. No JVD. CARDIOVASCULAR: Rate in the 120s. Irregularly irregular rhythm. RESPIRATORY: No accessory muscle use. Clear to auscultation. Breath sounds equal bilaterally. GASTROINTESTINAL: Abdomen soft, non-tender, nondistended. Hepatic and splenic margins not palpable. MUSCULOSKELETAL: Extremities without clubbing, cyanosis, or edema. No obvious deformities. NEUROLOGICAL: Awake and alert. No obvious cranial nerve deficits. Motor grossly within normal limits. Five out of 5 muscle strength in the arms and legs. Normal speech. PSYCHIATRIC: Appropriate mood and affect; insight and judgment normal. Results - Labs CBC & Chem 7: 01/18/18 03:17 01/18/18 03:17 Laboratory Results - last 24 hr 01/17/18 01/18/18 01/18/18 21:42 03:17 03:17 WBC 6.8 RBC 3.47 L Hgb 9.6 L Hct 29.5 L MCV 85.2 MCH 27.5 MCHC 32.3 RDW 15.0 Plt Count 161 MPV 8.9 PT INR Sodium 139 Potassium 4.5 Chloride 101 Carbon Dioxide 25.6 Anion Gap 12 BUN 55 H Creatinine 7.73 H Estimated GFR 7 L POC Glucose 159 H Random Glucose 109 H Calcium 8.7 01/18/18 01/18/18 03:17 05:06 WBC RBC Hgb Hct MCV MCH MCHC RDW Plt Count MPV PT 15.0 H INR 1.5 Sodium Potassium Chloride Carbon Dioxide Anion Gap BUN Creatinine Estimated GFR POC Glucose 143 H Random Glucose Calcium Assessment and Plan - Assessment (1) Atrial fibrillation with RVR Code(s): I48.91 - Unspecified atrial fibrillation Status: Acute (2) Chest pain Code(s): R07.9 - Chest pain, unspecified Status: Acute (3) ESRD (end stage renal disease) on dialysis Code(s): N18.6 - End stage renal disease; Z99.2 - Dependence on renal dialysis Status: Acute (4) CHF (congestive heart failure) Code(s): I50.9 - Heart failure, unspecified Status: Acute - Plan Afib w/ RVR: New Onset. Patient was admitted about a month ago for SVT Cardiogenic shock - Persistent afib with RVR failing management. Per Cardiology, on Amiodarone, Bystolic and Lopressor. Hypotensive. -Appreciate cardiology following. S/P Esmolol drip. Scheduled Lopressor. Rate is not controlled. - Patient is critically ill and not responding to the current therapy. I have put out a call to Dr. Weinberg - Consult web applications architect. He may need pressors as he is symptomatic from hypotension. - [id number] score about 3. Patient started on Coumadin per Cardiology. -Further plans per cardiology and Law Firm Receptionist. CHF: ?Diastolic. Echo 12/10/17 w/ EF 55%, BNP 1096 on admission. Suspect persistent tachyarrhythmia could have contributed to elevated BNP CXR reviewed: w/ mild interstitial prominence but improved from previous. Monitor I/O Chest Pain: Likely secondary to A-fib and demand ischemia ESRD on HD: M/W/F, s/p LUE AV Fistula 12/17/[address] Hutson, Permacath placed . -Appreciate nephrology following. Continue hemodialysis as scheduled. GI prophylaxis: Stool softener PRN constipation. DVT PPx: Heparin (4) CHF (congestive heart failure) Qualifiers: Heart failure type: unspecified Heart failure chronicity: unspecified Qualified Code(s): I50.9 - Heart failure, unspecified
[2018-01-18] MEDS ORDERED: Digoxin Inj 500 MCG/2 ML Ampul IV.PUSH STA (11:41)
--- NOTE | 2018-01-18 12:09 | P.CONCC ---
History of Present Illness Service: Critical Care Medicine Consult date: 01/18/18 Requesting Physician: Alverto Wilcox Reason for Consult: management of hypotension and atrial fibrillation Primary Care Provider: [facility] Chief Complaint: light-headedness History of Present Illness: This is a 72yM with history of ESRD on HD who was recently admitted last month for supraventricular tachycardia. It appears from the records that normal sinus rhythm was restored prior to discharge home. He re-presented to the hospital with atrial fibrillation with rapid ventricular response which has been poorly responsive to esmolol infusion. It is noted that there is still a shortage of diltiazem infusions, so none is available to place the patient on. Dr. Waters with cardiology was consulted, as was Dr. Weinberg. The patient has also had hypotension during this hospital stay with most blood pressure readings between 80-100 systolic. This morning, Bystolic was started and was given together with amiodarone 400mg and metoprolol 25mg po. Approximately 2 hours after this, his blood pressure dropped into the 60s and 70s systolic. I was consulted by Dr. Wilcox to evaluate and manage his hemodynamics in the setting of poorly-controlled atrial fibrillation and hypotension. The patient does complain of light-headedness and a little chest discomfort which is new since his blood pressure has dropped into the 70s. He denies any other complaints and tolerated breakfast this AM. ROS otherwise negative. troponins have been serially negative this admission. I performed bedside critical care echocardiography and compared this to images obtained from last hospital admission on 11/2017. Given the poorly controlled nature of the patient's rate, wall motion and accurate ejection fraction are difficult to assess with accuracy. It does appear that the patient has relatively preserved EF and at most only mildly depressed LVEF. Aortic valve is sclerotic but appears unchanged from prior echo which calculated the valve area at ~2cm. no pericardial effusion. IVC is dilated around 2cm without respiratory variation. heart rate on my evaluation is 121. Review of Systems All other systems reviewed negative except as stated in HPI [facility] - History History Provided By: Patient - Medical History Medical History: Medical History (Last Reviewed 01/15/18 @ 18:39 by CRISTIANE Salvador) Dialysis patient Fistula ESRD (end stage renal disease) on dialysis Hypertension Type 2 diabetes mellitus CHF (congestive heart failure), NYHA class I - Tobacco History Second Hand Smoke Exposure: No Tobacco Use In Past 30 Days: No Smoking Status: Former smoker - Alcohol History How Often Do You Have a Drink Containing Alcohol: Never - Substance Use History Substance History: No History of Abuse - Travel History History of Recent Travel: No Recent Travel in the [place] Within the Last 8 Weeks: No Recent Travel Out of the Country Within the Last 8 Weeks: No - Immunization History Tetanus Immunization: <5 Years Hx Influenza Vaccine This Season: No Medications and Allergies Active Medications: Active Medications Acetaminophen (Tylenol) 650 mg PO UNSCH PRN PRN Reason: SEE LABEL COMMENTS Al Hydroxide/Mg Hydroxide (Milk Of Jori Handy) 30 ml PO Q12H PRN PRN Reason: Mild Constipation Amiodarone HCl (Cordarone) 400 mg PO TID [facility] Last Admin: 01/18/18 09:03 Dose: 200 mg Aspirin (Ecotrin) 81 mg PO DAILY [facility] Last Admin: 01/18/18 09:03 Dose: 81 mg Atorvastatin Calcium (Lipitor) 80 mg PO DAILY [facility] Last Admin: 01/18/18 09:03 Dose: 80 mg Bisacodyl (Dulcolax Supp) 10 mg RECTAL DAILY PRN PRN Reason: SEVERE CONSITIPATION Budesonide/Formoterol Fumarate (Symbicort 160/4.5 Mcg Inh) 2 puff INH BID [facility] Last Admin: 01/18/18 09:04 Dose: 2 puff Buspirone HCl (Buspar) 5 mg PO DAILY [facility] Last Admin: 01/18/18 09:05 Dose: 5 mg Chlorhexidine Gluconate (Chlorhexidine 2% Cloth) 3 pack TOPICAL DAILY@0400 [facility] Stop: 01/22/18 03:59 Last Admin: 01/18/18 05:11 Dose: 3 pack Chlorhexidine Gluconate (Chlorhexidine 2% Cloth) 3 pack TOPICAL DAILY@0400 PRN PRN Reason: Extra cloth needed Stop: 01/22/18 03:59 Diphenhydramine HCl (Benadryl) 25 mg PO UNSCH PRN PRN Reason: SEE LABEL COMMENTS Epoetin Yovanny (Epogen Inj) 4,000 unit IV.PUSH UNSCH PRN PRN Reason: SEE LABEL COMMENTS Gelatin (Gelfoam 12 Mm/7 Mm Topical) 1 foam TOPICAL PRN PRN PRN Reason: help stop bleeding from site Gentamicin Sulfate (Gentamicin Inj) 20 mg OTHER WITH DIALYSIS PRN PRN Reason: Dwell Gentamycin Lock Last Admin: 01/16/18 13:10 Dose: 20 mg Heparin Sodium (Porcine) (Heparin Inj) 8,000 units OTHER WITH DIALYSIS PRN PRN Reason: for machine prime Heparin Sodium (Porcine) (Heparin Inj) 1,000 units OTHER WITH DIALYSIS PRN PRN Reason: Dwell Heparin to Fill Catheter Heparin Sodium (Porcine) (Heparin Inj) 5,000 units SQ Q12HR [facility] Last Admin: 01/18/18 09:05 Dose: 5,000 units Albumin Human (Flexbumin 25% Inj) 100 mls @ 60 mls/hr IV.SIG WITH DIALYSIS PRN PRN Reason: hypotension / volume replace Last Infusion: 01/16/18 19:49 Dose: Infused Sodium Chloride (Ns Inj) 1,000 mls @ 0 mls/hr OTHER .Q0M PRN PRN Reason: for prime and rinse back Sodium Chloride (Ns Inj) 1,000 mls @ 0 mls/hr IV.CONT .Q0M PRN PRN Reason: hypotension / volume replace Sodium Chloride (Ns Inj) 1,000 mls @ 200 mls/hr OTHER .Q5H PRN PRN Reason: for dialyzer flush PRN Magnesium Sulfate Inj 2 gm/ (Sodium Chloride) 100 mls @ 50 mls/hr IV.SIG ONCE ONE Stop: 01/18/18 13:39 Lactulose (Lactulose Liq) 30 ml PO DAILY PRN PRN Reason: SEVERE CONSITIPATION Mannitol (Mannitol Inj) 12.5 gm IV.PUSH UNSCH PRN PRN Reason: hypotension / volume replace Metoprolol Tartrate (Lopressor) 25 mg PO Q6H [facility] Last Admin: 01/18/18 09:04 Dose: 25 mg Midodrine (Proamatine) 10 mg PO Q8HR [facility] Morphine Sulfate (Morphine Inj) 2 mg IV.PUSH Q4H PRN PRN Reason: PAIN 6-10 Last Admin: 01/18/18 02:33 Dose: 2 mg Multivitamins (Theragran) 1 tab PO DAILY [facility] Last Admin: 01/18/18 09:04 Dose: 1 tab Nebivolol (Bystolic) 5 mg PO DAILY [facility] Last Admin: 01/18/18 09:04 Dose: 5 mg Nitroglycerin (Nitrostat Sl) 0.4 mg SL Q5M PRN PRN Reason: CHEST PAIN Ondansetron HCl (Zofran Odt) 4 mg SL Q6H PRN PRN Reason: NAUSEA OR VOMITING Senna/Docusate Sodium (Yasmine-Colace) 1 tab PO BID [facility] Last Admin: 01/18/18 09:03 Dose: 1 tab Sennosides (Senokot) 17.2 mg PO Q12H PRN PRN Reason: Moderate Constipation Sodium Chloride (Ns Flush) 5 ml IV.FLUSH PRN PRN PRN Reason: flush each lumen during HD Temazepam (Restoril) 15 mg PO HS PRN PRN Reason: INSOMNIA Warfarin Sodium (Coumadin) 5 mg PO HS [facility] Last Admin: 01/17/18 21:28 Dose: 5 mg Allergies Allergy/AdvReac Type Severity Reaction Status Date / Time No Known Allergies Allergy Unverified 01/15/18 18:21 Home Medications Medication Instructions Recorded Confirmed Type aspirin [Aspir-81] 81 mg PO DAILY 01/15/18 01/15/18 History atorvastatin 80 mg PO DAILY 01/15/18 01/15/18 History budesonide-formoterol [Symbicort] 2 puff INHALATION BID 01/15/18 01/15/18 History buspirone 5 mg PO DAILY 01/15/18 01/15/18 History carvedilol [Coreg] 3.125 mg PO BID 01/15/18 01/15/18 History ergocalciferol (vitamin D2) 50,000 unit PO QWEEK 01/15/18 01/15/18 History [Vitamin D2] furosemide 80 mg PO DAILY 01/15/18 01/15/18 History hydralazine 25 mg PO BID 01/15/18 01/15/18 History multivitamin 1 tab PO DAILY 01/15/18 01/15/18 History Physical Exam Vital signs: Vital Signs 01/17/18 12:00 01/17/18 16:00 01/17/18 20:00 Temperature 36.6 C 36.7 C 36.7 C Pulse Rate 135 H 127 H 127 H Respiratory Rate 21 15 22 Blood Pressure 86/53 L 84/50 L 92/50 L Pulse Oximetry 95 01/17/18 21:08 01/18/18 00:00 01/18/18 04:00 Temperature 36.8 C 36.8 C Pulse Rate 124 H 117 H Respiratory Rate 22 18 Blood Pressure 89/54 L 92/56 L Pulse Oximetry 95 93 L 93 L 01/18/18 07:00 01/18/18 07:32 01/18/18 08:00 Temperature 36.6 C Pulse Rate 120 H 120 H Respiratory Rate 21 Blood Pressure 97/55 L Pulse Oximetry 94 L 92 L 01/18/18 09:00 Temperature Pulse Rate 118 H Respiratory Rate Blood Pressure Pulse Oximetry Intake & Output 01/17/18 01/18/18 01/18/18 18:59 06:59 18:59 Intake Total 720 / 720 Output Total 560 / 560 Balance 160 / 160 Weight 96.5 kg Intake: Oral 720 / 720 Output: Urine 560 / 560 Other: # Incontinent Voids 0 Date of Last Bowel Movement 01/17/18 01/16/18 Narrative: gen: elderly male, sitting up in bed, distress due to light-headedness heent: nc. at. perrl. mmm. neck: mild JVD. trachea midline. chest: equal chest rise. nc o2. cv: tachycardic rate of 121, irregularly irregular rhythm. afib by tele. sbp 78mmHg on my eval, map 61mmHg. abd: soft, nt,nd. no guarding. extr: no peripheral edema. distal pulses 2+. neuro: RASS 0. CAM-. pleasant. moves all extremities. follows commands. Assessment and Plan - Assessment and Plan Plan: Assessment: 72yM with ESRD and poorly controlled atrial fibrillation and now persistent hypotension. In terms of his hypotension, I think the combination of AV gilbert blocking agents has caused significant hypotension in the setting of impaired cardiac output due to rate control. At this time we will hold his Bystolic since it was the newest medication added. I will add a single loading dose of digoxin 0.5mg iv x 1 to help assist in rate control while providing adequate contractility which may be impaired by the significant beta blockade we are providing. Certainly digoxin is not an ideal option for him to be on as a long-term agent given it's renal clearance. 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 I think he has been hypotensive enough during this hospital admission that if we are unable to regain control of his rate, he would be an excellent candidate for KAYLYNN /Cardioversion, but at present he has not been anticoagulated, so I would not pursue this emergently unless his hypotension was refractory or worsening and causing significant additional end-organ dysfunction. Certainly he is critically ill today with persistent hypotension. Active Problems: Atrial Fibrillation with rapid ventricular response end-stage renal disease requiring hemodialysis Persistent hypotension secondary to poor cardiac output Recommendations: - digoxin 0.5mg iv x 1. would not recommend continuing this as a chronic med. - continue amiodarone 400mg po q8h. may need to pursue iv amiodarone boluses or drip to regain control of rate. - magnesium sulfate 2gm iv x 1. - aggressive electrolyte replacement targeting mg > 2.5, K > 4.5 - start midodrine 10mg po q8h - continue metoprolol 25mg po q6h - hold bystolic 5mg daily until we can regain control of his hypotension. at that point I will leave additional beta blockade choice up to the senior relationship manager. - does not need additional iv fluids. may need additional fluid removal with HD. - agree with anticoagulation. - If we cannot control his afib or blood pressure, I do believe we should pursue either KAYLYNN/Cardioversion or EP study, as his afib has been refractory to more conservative measures. Needs to remain in ICU. Critical care medicine will continue to follow along. Critical care time: 41 minutes, exclusive of separately billable procedures. Discussed Condition With: Dr. Wilcox RN at bedside.
[2018-01-18] MEDS: Mag Sulf 1 gm/100 ml Premix 100 ML IV.SIG SCH ×2 (12:15→14:31)
--- NOTE | 2018-01-18 12:39 | P.PNNP ---
Subjective Interval history: Patient is doing well, heart rate is better with amiodarone and anticoagulation started Physical Exam Vital signs: Vital Signs 01/17/18 16:00 01/17/18 20:00 01/17/18 21:08 Temperature 98.1 F 98.0 F Pulse Rate 127 H 127 H Respiratory Rate 15 22 Blood Pressure 84/50 L 92/50 L Pulse Oximetry 95 95 01/18/18 00:00 01/18/18 04:00 01/18/18 07:00 Temperature 98.2 F 98.2 F Pulse Rate 124 H 117 H 120 H Respiratory Rate 22 18 Blood Pressure 89/54 L 92/56 L Pulse Oximetry 93 L 93 L 01/18/18 07:32 01/18/18 08:00 01/18/18 09:00 Temperature 97.8 F Pulse Rate 120 H 118 H Respiratory Rate 21 Blood Pressure 97/55 L Pulse Oximetry 94 L 92 L Intake & Output 01/17/18 01/18/18 01/18/18 18:59 06:59 18:59 Intake Total 720 / 720 Output Total 560 / 560 Balance 160 / 160 Weight 96.5 kg Intake: Oral 720 / 720 Output: Urine 560 / 560 Other: # Incontinent Voids 0 Date of Last Bowel Movement 01/17/18 01/16/18 - Constitutional no acute distress - Routine HEENT Exam Head: Present: normocephalic Eye: Present: EOMI - Routine Respiratory Exam Present: CTA bilaterally - Routine Cardiovascular Exam Present: tachycardia, irregularly irregular - Routine Abdominal Exam Present: soft, normoactive bowel sounds - Routine Extremities Exam Present: edema Assessment and Plan - Assessment (1) ESRD (end stage renal disease) on dialysis Code(s): N18.6 - End stage renal disease; Z99.2 - Dependence on renal dialysis Status: Acute Plan: Next hemodialysis tomorrow Blood work stable Plan for pacemaker or cardioversion if heart rate is not controlled with medication Follow-up with Dr. Salvador (2) CHF (congestive heart failure) Code(s): I50.9 - Heart failure, unspecified Status: Acute Qualifiers: Heart failure type: unspecified Heart failure chronicity: unspecified Qualified Code(s): I50.9 - Heart failure, unspecified (3) Atrial fibrillation with RVR Code(s): I48.91 - Unspecified atrial fibrillation Status: Acute
--- NOTE | 2018-01-18 15:37 | ECHRPT ---
Indication: RE-EVALUATE AO GRADIENTS, EF CONCLUSIONS Normal left ventricular size. Mild concentric left ventricular hypertrophy. The left ventricular systolic function is low normal with an estimated ejection fraction in the rang e of 50- 55%. Mildly dilated proximal ascending aorta. Mild aortic dilatation at the level of the sinuses of Valsalva. Mild mitral valve regurgitation. Aortic valve sclerosis is present. Mild aortic valve regurgitation. BP: / HR: Rhythm: Sinus MEASUREMENTS (Male / Female) Normal Values Technical Quality:Fair 2D ECHO LV Diastolic Diameter PLAX 4.7 cm 4.2 - 5.9 / 3.9 - 5.3 cm LV Systolic Diameter PLAX 3.7 cm IVS Diastolic Thickness 1.2 cm 0.6 - 1.0 / 0.6 - 0.9 cm LVPW Diastolic Thickness 1.2 cm 0.6 - 1.0 / 0.6 - 0.9 cm LV Relative Wall Thickness 0.5 RV Internal Dim ED PLAX 3.5 cm LVOT Diameter 2.6 cm Aortic Root Diameter 4.4 cm LA Systolic Diameter LX 3.0 cm 3.0 - 4.0 / 2.7 - 3.8 cm M-MODE AV Cusp Separation MM 1.4 cm DOPPLER AV Peak Velocity 221.8 cm/s AV Peak Gradient 19.7 mmHg AV Mean Gradient 10.8 mmHg AV Velocity Time Integral 36.0 cm LVOT Peak Velocity 71.4 cm/s LVOT Peak Gradient 2.0 mmHg LVOT Velocity Time Integral 12.4 cm AV Area Cont Eq vti 1.8 cm AV Area Cont Eq pk 1.7 cm FINDINGS LEFT VENTRICLE Normal left ventricular size. Mild concentric left ventricular hypertrophy. The left ventricular systolic function is low normal with an estimated ejection fraction in the rang e of 50- 55%. RIGHT VENTRICLE Normal right ventricular size and systolic function. LEFT ATRIUM The left atrial size is normal. RIGHT ATRIUM The right atrial size is normal. ATRIAL SEPTUM No atrial level shunt is demonstrated by color flow Doppler interrogation. AORTA Mildly dilated proximal ascending aorta. Mild aortic dilatation at the level of the sinuses of Valsalva. MITRAL VALVE Mild mitral valve regurgitation. AORTIC VALVE Aortic valve sclerosis is present. Mild aortic valve regurgitation. VESSELS The inferior vena cava is normal in size. PERICARDIUM No pericardial effusion. Erich Park MD (Electronically Signed) Final Date:18 January 2018 15:36
--- NOTE | 2018-01-18 16:01 | P.DIET ---
Nutritional Evaluation Type of nutrition evaluation: initial Nutrition screening: Weight Loss > 10 lbs Subjective Subjective Comments: Reports good appetite; independent feed. 100% po intake for lunch today. Objective - Diagnosis CHF, AFib w/RVR, CHF on HD - Objective [place] body weight: 89 kg Body Weight Used for Calculations: Actual (93kg used for assessment here) Energy Needs - Lower Range (kCal/kg): 28 Energy Needs - Upper Range (kCal/kg): 33 Lower Limit kCal/kg (kCals): 2,604 Upper Limit kCal/kg (kCals): 3,069 Lower Limit Protein Factor (Grams per Kg): 1.2 Upper Limit Protein Factor (Grams per Kg): 1.5 Lower Protein Needs (Protein): 112 Upper Protein Needs (Protein): 140 Dietitian Reviewed in Medical Record: Current diet, Curent medications, Intake & Output, Labs, Medical history Diet Order: Cardiac Oral Diet Intake Amount: Fair 50-75% Objective Comments: PMH Includes: CHF, ESRD on HD, Fistula, HTN, DM-2, hyperlipidemia Labs Include: BUN 55, Creainine 7.73, estGFR 109, Accucheck 143 LBM 01/16 Assessment Assessment: Pt is at nutritional risk r/t reported recent unintentional wt loss and need for HD. Adequate po intake for meals recorded in EMR, 50% or greater. Send Nepro supplement BID to offer additional nutrition(= 425 kcal and 19g Protein per serving). Labs reviewed. Wt changes noted. Dietitian following. Recommendations: 1.Send Nepro supplement BID to offer additional nutrition 2.Dietitian following Dietitian to Monitor: Lab values, Electrolytes, Renal labs, Glucose level, Supplement acceptance, Intake & Output, Weight change, PO Intake, Medical course
[2018-01-19] MEDS: Metoprolol Tartrate 25 MG Tablet PO SCH ×4 (02:08→20:07)
[2018-01-19] MEDS: Chlorhexidine Gluconate 2% 1 Pack (2 Cloths) TOPICAL SCH (03:44)
[2018-01-19 07:03] LABS: INR 1.4 Ratio; Prothrombin Time 14.5 sec (9.8-11.6)
--- NOTE | 2018-01-19 09:27 | P.PNIM ---
Subjective Interval history: Patient reports he is feeling much better today. Rate in the 90's. No chest pain. Physical Exam Vital signs: Vital Signs 01/18/18 12:00 01/18/18 16:00 01/18/18 20:00 Temperature 97.8 F 97.7 F 98.6 F Pulse Rate 111 H 101 H 108 H Respiratory Rate 12 20 22 Blood Pressure 98/58 L 112/64 107/58 L Pulse Oximetry 96 92 L 93 L 01/19/18 00:00 01/19/18 04:00 01/19/18 08:06 Temperature 97.9 F 97.9 F Pulse Rate 20 L 101 H Respiratory Rate 22 22 Blood Pressure 107/58 L 113/59 L Pulse Oximetry 97 95 95 Intake & Output 01/18/18 01/19/18 01/19/18 18:59 06:59 18:59 Intake Total 820 / 820 1200 / 1200 Output Total 100 / 100 300 / 300 Balance 720 / 720 900 / 900 Weight 98.5 kg Intake: IV 100 / 100 Magnesium Sulfate 1 gm/D5W 100 100 / 100 ml Premix 100 ML @ 100 mls/hr IV.SIG Q1H [facility] Rx#:[id number] Oral 720 / 720 1200 / 1200 Output: Urine 100 / 100 300 / 300 Other: # Voids 3 # Incontinent Voids 0 Date of Last Bowel Movement 01/17/18 01/17/18 Narrative: GENERAL: No acute distress CARDIOVASCULAR: Rate in the 90s. Irregularly irregular rhythm. RESPIRATORY: No accessory muscle use. Clear to auscultation. Breath sounds equal bilaterally. GASTROINTESTINAL: Abdomen soft, non-tender, nondistended. Hepatic and splenic margins not palpable. MUSCULOSKELETAL: Extremities without clubbing, cyanosis, or edema. No obvious deformities. NEUROLOGICAL: Awake and alert. No obvious cranial nerve deficits. Results - Labs CBC & Chem 7: 01/18/18 03:17 01/18/18 03:17 Laboratory Results - last 24 hr 01/18/18 01/19/18 20:26 05:59 PT 14.5 H INR 1.4 POC Glucose 166 H Assessment and Plan - Assessment (1) Atrial fibrillation with RVR Code(s): I48.91 - Unspecified atrial fibrillation Status: Acute (2) Chest pain Code(s): R07.9 - Chest pain, unspecified Status: Acute (3) ESRD (end stage renal disease) on dialysis Code(s): N18.6 - End stage renal disease; Z99.2 - Dependence on renal dialysis Status: Acute (4) CHF (congestive heart failure) Code(s): I50.9 - Heart failure, unspecified Status: Acute - Plan Afib w/ RVR: New Onset. Patient was admitted about a month ago for SVT Cardiogenic shock on 01/18. Became Hypotensive after receiving Bystolic. This was discontinued and patient started on Midodrine with the assistance of apple picker. - Rate better controlled. Appreciate Cardiology input. Continue Amiodarone and Lopressor. - [id number] score about 3. Patient started on Coumadin per Cardiology. Follow INR. CHF: ?Diastolic. Echo 12/10/17 w/ EF 55%, BNP 1096 on admission. Suspect persistent tachyarrhythmia could have contributed to elevated BNP CXR reviewed: w/ mild interstitial prominence but improved from previous. Monitor I/O Chest Pain: Likely secondary to A-fib and demand ischemia. Resolved ESRD on HD: M/W/F, s/p LUE AV Fistula 12/17/[address] Hutson, Permacath placed . -Appreciate nephrology following. Continue hemodialysis as scheduled. GI prophylaxis: Stool softener PRN constipation. DVT PPx: Heparin Discharge Planning: Keep in ICU today. Possible transfer to floor tomorrow if stable. (4) CHF (congestive heart failure) Qualifiers: Heart failure type: unspecified Heart failure chronicity: unspecified Qualified Code(s): I50.9 - Heart failure, unspecified
--- NOTE | 2018-01-19 11:45 | P.PNNP ---
Subjective Interval history: Seen during bedside dialysis. He remains in A fib, rate 100-120s. Asymptomatic. BP stable. <Jyoti Ceron - Last Filed: 01/19/18 11:36> Physical Exam Vital signs: Vital Signs 01/18/18 12:00 01/18/18 16:00 01/18/18 20:00 Temperature 97.8 F 97.7 F 98.6 F Pulse Rate 111 H 101 H 108 H Respiratory Rate 12 20 22 Blood Pressure 98/58 L 112/64 107/58 L Pulse Oximetry 96 92 L 93 L 01/19/18 00:00 01/19/18 04:00 01/19/18 07:30 Temperature 97.9 F 97.9 F Pulse Rate 20 L 101 H 93 H Respiratory Rate 22 22 19 Blood Pressure 107/58 L 113/59 L Pulse Oximetry 97 95 94 L 01/19/18 07:35 01/19/18 07:40 01/19/18 07:45 Temperature Pulse Rate 91 H 94 H 92 H Respiratory Rate 18 19 23 Blood Pressure 112/58 L 109/63 117/66 Pulse Oximetry 94 L 94 L 94 L 01/19/18 07:50 01/19/18 07:55 01/19/18 08:00 Temperature 98.1 F Pulse Rate 93 H 90 91 H Respiratory Rate 22 22 20 Blood Pressure 112/63 119/62 136/70 Pulse Oximetry 93 L 94 L 96 01/19/18 08:05 01/19/18 08:06 01/19/18 08:10 Temperature Pulse Rate 95 H 94 H Respiratory Rate 20 17 Blood Pressure 116/58 L 116/63 Pulse Oximetry 94 L 95 92 L 01/19/18 08:15 01/19/18 08:20 01/19/18 08:25 Temperature Pulse Rate 93 H 93 H 94 H Respiratory Rate 27 H 19 21 Blood Pressure 118/56 L 109/55 L 117/60 Pulse Oximetry 93 L 93 L 92 L 01/19/18 08:30 01/19/18 08:45 01/19/18 09:00 Temperature Pulse Rate 92 H 96 H 98 H Respiratory Rate 17 14 16 Blood Pressure 128/60 118/59 L 107/56 L Pulse Oximetry 92 L 93 L 93 L 01/19/18 09:15 01/19/18 09:30 01/19/18 09:45 Temperature Pulse Rate 96 H 97 H 100 H Respiratory Rate 14 20 19 Blood Pressure 116/61 116/55 L 109/59 L Pulse Oximetry 93 L 92 L 93 L 01/19/18 10:00 01/19/18 10:15 01/19/18 10:31 Temperature Pulse Rate 98 H 101 H 100 H Respiratory Rate 19 21 25 H Blood Pressure 97/55 L 102/65 120/58 L Pulse Oximetry 93 L 92 L 89 L 01/19/18 10:45 01/19/18 11:00 01/19/18 11:01 Temperature Pulse Rate 93 H 100 H 99 H Respiratory Rate 21 24 25 H Blood Pressure 118/64 131/58 L Pulse Oximetry 93 L 89 L 90 L 01/19/18 11:15 01/19/18 11:30 Temperature Pulse Rate 101 H 93 H Respiratory Rate 11 L 17 Blood Pressure 112/56 L 126/59 L Pulse Oximetry 94 L 90 L Intake & Output 01/18/18 01/19/18 01/19/18 18:59 06:59 18:59 Intake Total 820 / 820 1200 / 1200 Output Total 100 / 100 300 / 300 Balance 720 / 720 900 / 900 Weight 98.5 kg Intake: IV 100 / 100 Magnesium Sulfate 1 gm/D5W 100 100 / 100 ml Premix 100 ML @ 100 mls/hr IV.SIG Q1H PEDRO Rx#:[id number] Oral 720 / 720 1200 / 1200 Output: Urine 100 / 100 300 / 300 Other: # Voids 3 # Incontinent Voids 0 Date of Last Bowel Movement 01/17/18 01/17/18 - Constitutional no acute distress, average body habitus - Routine HEENT Exam Head: Present: normocephalic ENT: Present: mucous membranes moist - Routine Neck Exam Present: supple, full ROM. Absent: JVD - Routine Respiratory Exam Present: CTA bilaterally. Absent: accessory muscle use - Routine Cardiovascular Exam Present: S1, S2, tachycardia, irregularly irregular. Absent: murmur, gallop, rubs - Routine Abdominal Exam Present: soft, normoactive bowel sounds - Routine Extremities Exam Present: full ROM, normal capillary refill, AV fistula, vascular access. Absent : edema Comments: New AVF, left arm, + thrill/bruit PC right chest - Routine Skin Exam Present: intact, warm - Routine Neurological Exam Present: alert, oriented X3 - Detailed Neurological Exam: Coma Scale Eye Opening: Spontaneous Verbal Response: Oriented Motor Response: Obey commands [place] Coma Scale Total: 15 - Routine Psychiatric Exam Present: normal affect, normal thought process <Jyoti Ceron - Last Filed: 01/19/18 11:36> Vital signs: Vital Signs 01/19/18 11:15 01/19/18 11:30 01/19/18 12:00 Temperature 98.3 F Pulse Rate 101 H 93 H 104 H Respiratory Rate 11 L 17 17 Blood Pressure 112/56 L 126/59 L 116/62 Pulse Oximetry 94 L 90 L 88 L 01/19/18 13:00 01/19/18 14:00 01/19/18 14:19 Temperature Pulse Rate 107 H 111 H 109 H Respiratory Rate 21 18 Blood Pressure 126/56 L 94/55 L Pulse Oximetry 89 L 01/19/18 15:00 01/19/18 15:17 01/19/18 16:00 Temperature 98.5 F Pulse Rate 104 H 107 H 103 H Respiratory Rate 28 H 19 14 Blood Pressure 101/51 L 98/56 L Pulse Oximetry 97 01/19/18 17:00 01/19/18 18:00 01/19/18 19:00 Temperature Pulse Rate 106 H 103 H 106 H Respiratory Rate 19 28 H 27 H Blood Pressure 97/57 L 107/60 Pulse Oximetry 94 L 92 L 87 L 01/19/18 19:01 01/19/18 20:00 01/19/18 20:07 Temperature 98.6 F Pulse Rate 107 H 102 H 101 H Respiratory Rate 28 H 25 H 17 Blood Pressure 101/77 104/57 L 104/57 L Pulse Oximetry 85 L 93 L 85 L 01/19/18 21:00 01/19/18 22:00 01/19/18 23:00 Temperature Pulse Rate 106 H 100 H 102 H Respiratory Rate 22 15 17 Blood Pressure 103/69 119/63 120/60 Pulse Oximetry 92 L 95 96 01/19/18 23:14 01/19/18 23:54 01/20/18 00:00 Temperature 98.5 F Pulse Rate 97 H Respiratory Rate 20 17 Blood Pressure 120/63 Pulse Oximetry 94 L 86 L 01/20/18 01:00 01/20/18 02:00 01/20/18 03:00 Temperature Pulse Rate 96 H 85 88 Respiratory Rate 15 19 39 H Blood Pressure 124/66 127/63 Pulse Oximetry 94 L 96 95 01/20/18 03:01 01/20/18 04:00 01/20/18 05:00 Temperature 98.8 F Pulse Rate 87 87 84 Respiratory Rate 18 17 30 H Blood Pressure 120/63 122/63 Pulse Oximetry 97 95 90 L 01/20/18 05:07 01/20/18 06:00 01/20/18 07:00 Temperature Pulse Rate 81 82 80 Respiratory Rate 22 15 18 Blood Pressure 114/61 120/65 130/64 Pulse Oximetry 96 96 90 L 01/20/18 08:00 01/20/18 09:00 01/20/18 10:00 Temperature 97.9 F Pulse Rate 86 93 H 93 H Respiratory Rate 14 20 21 Blood Pressure 132/58 L 123/63 127/60 Pulse Oximetry 90 L 90 L 86 L 01/20/18 11:00 Temperature Pulse Rate 92 H Respiratory Rate 23 Blood Pressure 123/62 Pulse Oximetry 88 L Intake & Output 01/19/18 01/20/18 01/20/18 18:59 06:59 18:59 Intake Total 960 / 960 600 / 600 Output Total 1600 / 1600 125 / 125 Balance -640 / -640 475 / 475 Weight 92 kg Intake: Oral 960 / 960 600 / 600 Output: Urine 100 / 100 125 / 125 Hemodialysis Amount 1500 / 1500 Other: # Voids 2 Date of Last Bowel Movement 01/19/18 01/19/18 # Bowel Movements 1 0 <Eduardo Salvador - Last Filed: 01/20/18 11:07> Assessment and Plan - Assessment (1) ESRD (end stage renal disease) on dialysis Code(s): N18.6 - End stage renal disease; Z99.2 - Dependence on renal dialysis Status: Acute Plan: Seen during dialysis today on a 2K, 320 BFR, goal 2L as tolerated. Continue HD MWF, has outpatient arrangements in place if discharged. Monitor electrolytes intermittently Avoid IVF administration Protect left arm from procedures, has new AV access Permcath in place. Check phosphorus level, he is not on binder therapy. (2) Atrial fibrillation with RVR Code(s): I48.91 - Unspecified atrial fibrillation Status: Acute Plan: Rate is not controlled On PO Amiodarone and metoprolol. Was hypotensive over the weekend. Midodrine started TID. Also started on Coumadin If medical management is insufficient, may need AV gilbert ablation (3) CHF (congestive heart failure) Code(s): I50.9 - Heart failure, unspecified Status: Acute Qualifiers: Heart failure type: unspecified Heart failure chronicity: unspecified Qualified Code(s): I50.9 - Heart failure, unspecified Plan: Monitor fluid status, fluid removal as tolerated Cardiology following (4) Anemia in CKD (chronic kidney disease) Code(s): N18.9 - Chronic kidney disease, unspecified; D63.1 - Anemia in chronic kidney disease Status: Acute Plan: Start Epogen with dialysis. <Jyoti Ceron - Last Filed: 01/19/18 11:36> - Assessment (1) ESRD (end stage renal disease) on dialysis Code(s): N18.6 - End stage renal disease; Z99.2 - Dependence on renal dialysis Status: Acute (2) Atrial fibrillation with RVR Code(s): I48.91 - Unspecified atrial fibrillation Status: Acute (3) CHF (congestive heart failure) Code(s): I50.9 - Heart failure, unspecified Status: Acute Qualifiers: Heart failure type: unspecified Heart failure chronicity: unspecified Qualified Code(s): I50.9 - Heart failure, unspecified (4) Anemia in CKD (chronic kidney disease) Code(s): N18.9 - Chronic kidney disease, unspecified; D63.1 - Anemia in chronic kidney disease Status: Acute - Attending Attestation patient was seen and examined. Agree with above assessment and plan. Seen during dialysis. Tachycardic, cardiology on the case. <Eduardo Salvador - Last Filed: 01/20/18 11:07>
[2018-01-19] MEDS: Senna/Docusate Sodium 8.6/50 MG Tablet PO SCH ×2 (12:20→20:07)
[2018-01-19] MEDS: Amiodarone 200 MG Tablet PO SCH ×3 (12:20→17:33)
[2018-01-19] MEDS: Heparin - SQ 10,000 UNITS/ML Vial SQ SCH ×2 (12:21→20:07)
[2018-01-19] MEDS: Budesonide-Formoterol 160/4.5 MCG 6 GM Inhaler INH SCH ×2 (12:28→20:58)
--- NOTE | 2018-01-19 13:29 | P.PNCA ---
Subjective Interval history: alert in nad Physical Exam Vital signs: Vital Signs 01/18/18 16:00 01/18/18 20:00 01/19/18 00:00 Temperature 97.7 F 98.6 F 97.9 F Pulse Rate 101 H 108 H 20 L Respiratory Rate 20 22 22 Blood Pressure 112/64 107/58 L 107/58 L Pulse Oximetry 92 L 93 L 97 01/19/18 04:00 01/19/18 07:30 01/19/18 07:35 Temperature 97.9 F Pulse Rate 101 H 93 H 91 H Respiratory Rate 22 19 18 Blood Pressure 113/59 L 112/58 L Pulse Oximetry 95 94 L 94 L 01/19/18 07:40 01/19/18 07:45 01/19/18 07:50 Temperature Pulse Rate 94 H 92 H 93 H Respiratory Rate 19 23 22 Blood Pressure 109/63 117/66 112/63 Pulse Oximetry 94 L 94 L 93 L 01/19/18 07:55 01/19/18 08:00 01/19/18 08:05 Temperature 98.1 F Pulse Rate 90 91 H 95 H Respiratory Rate 22 20 20 Blood Pressure 119/62 136/70 116/58 L Pulse Oximetry 94 L 96 94 L 01/19/18 08:06 01/19/18 08:10 01/19/18 08:15 Temperature Pulse Rate 94 H 93 H Respiratory Rate 17 27 H Blood Pressure 116/63 118/56 L Pulse Oximetry 95 92 L 93 L 01/19/18 08:20 01/19/18 08:25 01/19/18 08:30 Temperature Pulse Rate 93 H 94 H 92 H Respiratory Rate 19 21 17 Blood Pressure 109/55 L 117/60 128/60 Pulse Oximetry 93 L 92 L 92 L 01/19/18 08:45 01/19/18 09:00 01/19/18 09:15 Temperature Pulse Rate 96 H 98 H 96 H Respiratory Rate 14 16 14 Blood Pressure 118/59 L 107/56 L 116/61 Pulse Oximetry 93 L 93 L 93 L 01/19/18 09:30 01/19/18 09:45 01/19/18 10:00 Temperature Pulse Rate 97 H 100 H 98 H Respiratory Rate 20 19 19 Blood Pressure 116/55 L 109/59 L 97/55 L Pulse Oximetry 92 L 93 L 93 L 01/19/18 10:15 01/19/18 10:31 01/19/18 10:45 Temperature Pulse Rate 101 H 100 H 93 H Respiratory Rate 21 25 H 21 Blood Pressure 102/65 120/58 L 118/64 Pulse Oximetry 92 L 89 L 93 L 01/19/18 11:00 01/19/18 11:01 01/19/18 11:15 Temperature Pulse Rate 100 H 99 H 101 H Respiratory Rate 24 25 H 11 L Blood Pressure 131/58 L 112/56 L Pulse Oximetry 89 L 90 L 94 L 01/19/18 11:30 Temperature Pulse Rate 93 H Respiratory Rate 17 Blood Pressure 126/59 L Pulse Oximetry 90 L Intake & Output 01/18/18 01/19/18 01/19/18 18:59 06:59 18:59 Intake Total 820 / 820 1200 / 1200 Output Total 100 / 100 300 / 300 1500 / 1500 Balance 720 / 720 900 / 900 -1500 / -1500 Weight 98.5 kg Intake: IV 100 / 100 Magnesium Sulfate 1 gm/D5W 100 100 / 100 ml Premix 100 ML @ 100 mls/hr IV.SIG Q1H PEDRO Rx#:[id number] Oral 720 / 720 1200 / 1200 Output: Urine 100 / 100 300 / 300 Hemodialysis Amount 1500 / 1500 Other: # Voids 3 # Incontinent Voids 0 Date of Last Bowel Movement 01/17/18 01/17/18 Assessment and Plan - Assessment (1) Atrial fibrillation with rapid ventricular response Code(s): I48.91 - Unspecified atrial fibrillation Status: Acute (2) CHF (congestive heart failure) Code(s): I50.9 - Heart failure, unspecified Status: Acute (3) Chronic kidney disease with end stage renal failure on dialysis Code(s): N18.6 - End stage renal disease; Z99.2 - Dependence on renal dialysis Status: Acute (4) Atrial fibrillation with RVR Code(s): I48.91 - Unspecified atrial fibrillation Status: Acute (5) ESRD (end stage renal disease) on dialysis Code(s): N18.6 - End stage renal disease; Z99.2 - Dependence on renal dialysis Status: Acute - Plan 1.) Afib with rvr - failing medical management due to hypotension, Dr Weinberg started amio and coumadin, rates improved but still in low 100's, consider avn ablation and ppm if hr trend remains > 100, d/w patient (2) CHF (congestive heart failure) Qualifiers: Heart failure type: unspecified Heart failure chronicity: unspecified Qualified Code(s): I50.9 - Heart failure, unspecified
[2018-01-19] MEDS: Morphine Inj 4 MG/ML Vial IV.PUSH PRN (22:39)
[2018-01-20] MEDS: Metoprolol Tartrate 25 MG Tablet PO SCH ×4 (03:15→20:34)
[2018-01-20] MEDS: Chlorhexidine Gluconate 2% 1 Pack (2 Cloths) TOPICAL SCH (03:15)
[2018-01-20 04:33] LABS: Hematocrit 30.9 % (39.0-51.0); Hemoglobin 10.1 gm/dL (13.0-17.0); Mean Corpuscular HGB Conc 32.7 % (32.0-36.0); Mean Corpuscular Volume 85.6 fL (80.0-100.0); Mean Platelet Volume 8.9 fL (7.0-11.0); Platelet Count 194 th/mm3 (150-450); Red Blood Count 3.61 mil/mm3 (4.50-5.90); Red Cell Distribution Width 15.1 % (11.6-17.2); White Blood Count 8.2 th/mm3 (4.0-11.0)
[2018-01-20 04:47] LABS: INR 1.5 Ratio; Prothrombin Time 15.5 sec (9.8-11.6)
[2018-01-20 05:02] LABS: Calcium 8.2 mg/dL (8.5-10.1); Potassium 5.3 meq/L (3.5-5.1)
[2018-01-20 05:03] LABS: Phosphorus 3.8 mg/dL (2.5-4.9)
[2018-01-20] MEDS: Senna/Docusate Sodium 8.6/50 MG Tablet PO SCH ×2 (08:00→20:34)
[2018-01-20] MEDS: Heparin - SQ 10,000 UNITS/ML Vial SQ SCH ×2 (08:01→20:34)
[2018-01-20] MEDS: Amiodarone 200 MG Tablet PO SCH ×3 (08:01→17:46)
[2018-01-20] MEDS: Budesonide-Formoterol 160/4.5 MCG 6 GM Inhaler INH SCH ×2 (08:02→20:34)
[2018-01-20] MEDS: Morphine Inj 4 MG/ML Vial IV.PUSH PRN (08:17)
--- NOTE | 2018-01-20 10:01 | P.PNIM ---
Subjective Interval history: Patient reports he is feeling better today. Heart rate is better controlled. Discussed with his daughter at bedside. She is inquiring about pacemaker placement. Physical Exam Vital signs: Vital Signs 01/19/18 10:15 01/19/18 10:31 01/19/18 10:45 Temperature Pulse Rate 101 H 100 H 93 H Respiratory Rate 21 25 H 21 Blood Pressure 102/65 120/58 L 118/64 Pulse Oximetry 92 L 89 L 93 L 01/19/18 11:00 01/19/18 11:01 01/19/18 11:15 Temperature Pulse Rate 100 H 99 H 101 H Respiratory Rate 24 25 H 11 L Blood Pressure 131/58 L 112/56 L Pulse Oximetry 89 L 90 L 94 L 01/19/18 11:30 01/19/18 12:00 01/19/18 13:00 Temperature 98.3 F Pulse Rate 93 H 104 H 107 H Respiratory Rate 17 17 21 Blood Pressure 126/59 L 116/62 126/56 L Pulse Oximetry 90 L 88 L 89 L 01/19/18 14:00 01/19/18 14:19 01/19/18 15:00 Temperature Pulse Rate 111 H 109 H 104 H Respiratory Rate 18 28 H Blood Pressure 94/55 L Pulse Oximetry 01/19/18 15:17 01/19/18 16:00 01/19/18 17:00 Temperature 98.5 F Pulse Rate 107 H 103 H 106 H Respiratory Rate 19 14 19 Blood Pressure 101/51 L 98/56 L 97/57 L Pulse Oximetry 97 94 L 01/19/18 18:00 01/19/18 19:00 01/19/18 19:01 Temperature Pulse Rate 103 H 106 H 107 H Respiratory Rate 28 H 27 H 28 H Blood Pressure 107/60 101/77 Pulse Oximetry 92 L 87 L 85 L 01/19/18 20:00 01/19/18 23:14 01/19/18 23:54 Temperature 98.6 F Pulse Rate 102 H Respiratory Rate 25 H 20 Blood Pressure 104/57 L Pulse Oximetry 93 L 94 L 01/20/18 00:00 01/20/18 04:00 Temperature 98.5 F 98.8 F Pulse Rate 97 H 87 Respiratory Rate 17 17 Blood Pressure 120/63 122/63 Pulse Oximetry 93 L 95 Intake & Output 01/19/18 01/20/18 01/20/18 18:59 06:59 18:59 Intake Total 960 / 960 600 / 600 Output Total 1600 / 1600 125 / 125 Balance -640 / -640 475 / 475 Weight 92 kg Intake: Oral 960 / 960 600 / 600 Output: Urine 100 / 100 125 / 125 Hemodialysis Amount 1500 / 1500 Other: # Voids 2 Date of Last Bowel Movement 01/19/18 01/19/18 # Bowel Movements 1 0 Narrative: GENERAL: No acute distress CARDIOVASCULAR: Rate in the 80s-90s. Irregularly irregular rhythm. RESPIRATORY: No accessory muscle use. Clear to auscultation. Breath sounds equal bilaterally. GASTROINTESTINAL: Abdomen soft, non-tender, nondistended. Hepatic and splenic margins not palpable. MUSCULOSKELETAL: Extremities without clubbing, cyanosis, or edema. No obvious deformities. NEUROLOGICAL: Awake and alert. No obvious cranial nerve deficits. Results - Labs CBC & Chem 7: 01/20/18 03:53 01/20/18 03:53 Laboratory Results - last 24 hr 01/20/18 01/20/18 01/20/18 03:53 03:53 03:53 WBC 8.2 RBC 3.61 L Hgb 10.1 L Hct 30.9 L MCV 85.6 MCH 28.0 MCHC 32.7 RDW 15.1 Plt Count 194 MPV 8.9 PT 15.5 H INR 1.5 Sodium 138 Potassium 5.3 H Chloride 99 Carbon Dioxide 30.0 Anion Gap 9 BUN 47 H Creatinine 7.15 H Estimated GFR 8 L Random Glucose 125 H Calcium 8.2 L Phosphorus 3.8 Assessment and Plan - Assessment (1) Atrial fibrillation with RVR Code(s): I48.91 - Unspecified atrial fibrillation Status: Acute (2) Chest pain Code(s): R07.9 - Chest pain, unspecified Status: Acute (3) ESRD (end stage renal disease) on dialysis Code(s): N18.6 - End stage renal disease; Z99.2 - Dependence on renal dialysis Status: Acute (4) CHF (congestive heart failure) Code(s): I50.9 - Heart failure, unspecified Status: Acute - Plan Afib w/ RVR: New Onset. Patient was admitted about a month ago for SVT Cardiogenic shock on 01/18. Became Hypotensive after receiving Bystolic. This was discontinued and patient started on Midodrine with the assistance of oil pipeline operator. - Rate better controlled. Appreciate Cardiology input. Continue Amiodarone and Lopressor. - [id number] score about 3. Patient started on Coumadin per Cardiology. Follow INR. -Stable for transfer to [facility] today. Patient's daughter is inquiring about pacemaker and ablation. This is deferred to cardiology. CHF: ?Diastolic. Echo 12/10/17 w/ EF 55%, BNP 1096 on admission. Suspect persistent tachyarrhythmia could have contributed to elevated BNP CXR reviewed: w/ mild interstitial prominence but improved from previous. Monitor I/O -No evidence of fluid overload currently. Treat tachyarrhythmia as above. Chest Pain: Likely secondary to A-fib and demand ischemia. Resolved ESRD on HD: M/W/F, s/p LUE AV Fistula 12/17/[address] Hutson, Permacath placed . -Appreciate nephrology following. Continue hemodialysis as scheduled. GI prophylaxis: Stool softener PRN constipation. DVT PPx: Heparin Discharge Planning: Stable for transfer to [facility] today. Patient and family does not want to return to [facility] when medically cleared. Discussed with case management. (4) CHF (congestive heart failure) Qualifiers: Heart failure type: unspecified Heart failure chronicity: unspecified Qualified Code(s): I50.9 - Heart failure, unspecified
--- NOTE | 2018-01-20 10:04 | P.PNNP ---
Subjective Interval history: Eating breakfast. Still in A fib, rate 80-90s. No new concerns. <Jyoti Ceron - Last Filed: 01/20/18 09:57> Physical Exam Vital signs: Vital Signs 01/19/18 10:00 01/19/18 10:15 01/19/18 10:31 Temperature Pulse Rate 98 H 101 H 100 H Respiratory Rate 19 21 25 H Blood Pressure 97/55 L 102/65 120/58 L Pulse Oximetry 93 L 92 L 89 L 01/19/18 10:45 01/19/18 11:00 01/19/18 11:01 Temperature Pulse Rate 93 H 100 H 99 H Respiratory Rate 21 24 25 H Blood Pressure 118/64 131/58 L Pulse Oximetry 93 L 89 L 90 L 01/19/18 11:15 01/19/18 11:30 01/19/18 12:00 Temperature 98.3 F Pulse Rate 101 H 93 H 104 H Respiratory Rate 11 L 17 17 Blood Pressure 112/56 L 126/59 L 116/62 Pulse Oximetry 94 L 90 L 88 L 01/19/18 13:00 01/19/18 14:00 01/19/18 14:19 Temperature Pulse Rate 107 H 111 H 109 H Respiratory Rate 21 18 Blood Pressure 126/56 L 94/55 L Pulse Oximetry 89 L 01/19/18 15:00 01/19/18 15:17 01/19/18 16:00 Temperature 98.5 F Pulse Rate 104 H 107 H 103 H Respiratory Rate 28 H 19 14 Blood Pressure 101/51 L 98/56 L Pulse Oximetry 97 01/19/18 17:00 01/19/18 18:00 01/19/18 19:00 Temperature Pulse Rate 106 H 103 H 106 H Respiratory Rate 19 28 H 27 H Blood Pressure 97/57 L 107/60 Pulse Oximetry 94 L 92 L 87 L 01/19/18 19:01 01/19/18 20:00 01/19/18 23:14 Temperature 98.6 F Pulse Rate 107 H 102 H Respiratory Rate 28 H 25 H 20 Blood Pressure 101/77 104/57 L Pulse Oximetry 85 L 93 L 01/19/18 23:54 01/20/18 00:00 01/20/18 04:00 Temperature 98.5 F 98.8 F Pulse Rate 97 H 87 Respiratory Rate 17 17 Blood Pressure 120/63 122/63 Pulse Oximetry 94 L 93 L 95 Intake & Output 01/19/18 01/20/18 01/20/18 18:59 06:59 18:59 Intake Total 960 / 960 600 / 600 Output Total 1600 / 1600 125 / 125 Balance -640 / -640 475 / 475 Weight 92 kg Intake: Oral 960 / 960 600 / 600 Output: Urine 100 / 100 125 / 125 Hemodialysis Amount 1500 / 1500 Other: # Voids 2 Date of Last Bowel Movement 01/19/18 01/19/18 # Bowel Movements 1 0 - Constitutional no acute distress, average body habitus - Routine HEENT Exam Head: Present: normocephalic - Routine Neck Exam Present: supple, full ROM - Routine Respiratory Exam Present: CTA bilaterally. Absent: accessory muscle use - Routine Cardiovascular Exam Present: S1, S2, irregular rhythm, irregularly irregular - Routine Abdominal Exam Present: soft, normoactive bowel sounds - Routine Extremities Exam Present: full ROM, pulses intact, AV fistula, vascular access. Absent: edema - Routine Skin Exam Present: intact, warm - Routine Neurological Exam Present: alert, oriented X3, CN II-XII intact - Detailed Neurological Exam: Coma Scale Eye Opening: Spontaneous Verbal Response: Oriented Motor Response: Obey commands [place] Coma Scale Total: 15 - Routine Psychiatric Exam Present: normal affect, normal thought process <Jyoti Ceron - Last Filed: 01/20/18 09:57> Vital signs: Vital Signs 01/19/18 21:00 01/19/18 22:00 01/19/18 23:00 Temperature Pulse Rate 106 H 100 H 102 H Respiratory Rate 22 15 17 Blood Pressure 103/69 119/63 120/60 Pulse Oximetry 92 L 95 96 01/19/18 23:14 01/19/18 23:54 01/20/18 00:00 Temperature 98.5 F Pulse Rate 97 H Respiratory Rate 20 17 Blood Pressure 120/63 Pulse Oximetry 94 L 86 L 01/20/18 01:00 01/20/18 02:00 01/20/18 03:00 Temperature Pulse Rate 96 H 85 88 Respiratory Rate 15 19 39 H Blood Pressure 124/66 127/63 Pulse Oximetry 94 L 96 95 01/20/18 03:01 01/20/18 04:00 01/20/18 05:00 Temperature 98.8 F Pulse Rate 87 87 84 Respiratory Rate 18 17 30 H Blood Pressure 120/63 122/63 Pulse Oximetry 97 95 90 L 01/20/18 05:07 01/20/18 06:00 01/20/18 07:00 Temperature Pulse Rate 81 82 80 Respiratory Rate 22 15 18 Blood Pressure 114/61 120/65 130/64 Pulse Oximetry 96 96 90 L 01/20/18 08:00 01/20/18 09:00 01/20/18 10:00 Temperature 97.9 F Pulse Rate 86 93 H 93 H Respiratory Rate 14 20 21 Blood Pressure 132/58 L 123/63 127/60 Pulse Oximetry 90 L 90 L 92 L 01/20/18 11:00 01/20/18 12:00 01/20/18 13:00 Temperature 98.0 F Pulse Rate 92 H 98 H 96 H Respiratory Rate 23 29 H 26 H Blood Pressure 123/62 129/69 145/70 H Pulse Oximetry 92 L 92 L 92 L 01/20/18 14:00 01/20/18 15:00 01/20/18 16:00 Temperature 98.5 F Pulse Rate 90 88 88 Respiratory Rate 26 H 14 26 H Blood Pressure 139/71 117/79 129/66 Pulse Oximetry 90 L 92 L 88 L 01/20/18 17:00 01/20/18 18:00 Temperature Pulse Rate 88 86 Respiratory Rate 19 17 Blood Pressure 129/68 115/69 Pulse Oximetry 96 94 L Intake & Output 01/20/18 01/20/18 01/21/18 06:59 18:59 06:59 Intake Total 600 / 600 810 / 810 Output Total 125 / 125 50 / 50 Balance 475 / 475 760 / 760 Weight 92 kg Intake: Oral 600 / 600 810 / 810 Output: Urine 125 / 125 50 / 50 Other: Date of Last Bowel Movement 01/19/18 01/19/18 # Bowel Movements 0 <Eduardo Salvador - Last Filed: 01/20/18 20:30> Assessment and Plan - Assessment (1) ESRD (end stage renal disease) on dialysis Code(s): N18.6 - End stage renal disease; Z99.2 - Dependence on renal dialysis Status: Acute Plan: Continue HD MWF, has outpatient arrangements in place if discharged. 1.5L UF yesterday. Monitor electrolytes intermittently. Daily labs not required. Avoid IVF administration Protect left arm from procedures, has new AV access that is not mature. PermCath in place for HD use. Phosphorus level acceptable without binder therapy. (2) Atrial fibrillation with RVR Code(s): I48.91 - Unspecified atrial fibrillation Status: Acute Plan: Rate is now controlled On PO Amiodarone and metoprolol. Was hypotensive now BP is better. Midodrine is ordered TID. Started on Coumadin May have AV gilbert ablation with PPM insertion. (3) CHF (congestive heart failure) Code(s): I50.9 - Heart failure, unspecified Status: Acute Qualifiers: Heart failure type: unspecified Heart failure chronicity: unspecified Qualified Code(s): I50.9 - Heart failure, unspecified Plan: Monitor fluid status, fluid removal as tolerated EF 50-55% Cardiology following (4) Anemia in CKD (chronic kidney disease) Code(s): N18.9 - Chronic kidney disease, unspecified; D63.1 - Anemia in chronic kidney disease Status: Acute Plan: On Epogen with dialysis. <Jyoti Ceron - Last Filed: 01/20/18 09:57> - Assessment (1) ESRD (end stage renal disease) on dialysis Code(s): N18.6 - End stage renal disease; Z99.2 - Dependence on renal dialysis Status: Acute (2) Atrial fibrillation with RVR Code(s): I48.91 - Unspecified atrial fibrillation Status: Acute (3) CHF (congestive heart failure) Code(s): I50.9 - Heart failure, unspecified Status: Acute Qualifiers: Heart failure type: unspecified Heart failure chronicity: unspecified Qualified Code(s): I50.9 - Heart failure, unspecified (4) Anemia in CKD (chronic kidney disease) Code(s): N18.9 - Chronic kidney disease, unspecified; D63.1 - Anemia in chronic kidney disease Status: Acute - Attending Attestation patient was seen and examined. Agree with above assessment and plan. Dialysis tomorrow. Consider switching to Carvedilol from Metoprolol as Metoprolol can get dialyzed. <Eduardo Salvador - Last Filed: 01/20/18 20:30>
--- NOTE | 2018-01-20 14:36 | P.PNCA ---
Subjective Interval history: c/o severe chest pain Physical Exam Vital signs: Vital Signs 01/19/18 15:00 01/19/18 15:17 01/19/18 16:00 Temperature 98.5 F Pulse Rate 104 H 107 H 103 H Respiratory Rate 28 H 19 14 Blood Pressure 101/51 L 98/56 L Pulse Oximetry 97 01/19/18 17:00 01/19/18 18:00 01/19/18 19:00 Temperature Pulse Rate 106 H 103 H 106 H Respiratory Rate 19 28 H 27 H Blood Pressure 97/57 L 107/60 Pulse Oximetry 94 L 92 L 87 L 01/19/18 19:01 01/19/18 20:00 01/19/18 20:07 Temperature 98.6 F Pulse Rate 107 H 102 H 101 H Respiratory Rate 28 H 25 H 17 Blood Pressure 101/77 104/57 L 104/57 L Pulse Oximetry 85 L 93 L 85 L 01/19/18 21:00 01/19/18 22:00 01/19/18 23:00 Temperature Pulse Rate 106 H 100 H 102 H Respiratory Rate 22 15 17 Blood Pressure 103/69 119/63 120/60 Pulse Oximetry 92 L 95 96 01/19/18 23:14 01/19/18 23:54 01/20/18 00:00 Temperature 98.5 F Pulse Rate 97 H Respiratory Rate 20 17 Blood Pressure 120/63 Pulse Oximetry 94 L 86 L 01/20/18 01:00 01/20/18 02:00 01/20/18 03:00 Temperature Pulse Rate 96 H 85 88 Respiratory Rate 15 19 39 H Blood Pressure 124/66 127/63 Pulse Oximetry 94 L 96 95 01/20/18 03:01 01/20/18 04:00 01/20/18 05:00 Temperature 98.8 F Pulse Rate 87 87 84 Respiratory Rate 18 17 30 H Blood Pressure 120/63 122/63 Pulse Oximetry 97 95 90 L 01/20/18 05:07 01/20/18 06:00 01/20/18 07:00 Temperature Pulse Rate 81 82 80 Respiratory Rate 22 15 18 Blood Pressure 114/61 120/65 130/64 Pulse Oximetry 96 96 90 L 01/20/18 08:00 01/20/18 09:00 01/20/18 10:00 Temperature 97.9 F Pulse Rate 86 93 H 93 H Respiratory Rate 14 20 21 Blood Pressure 132/58 L 123/63 127/60 Pulse Oximetry 90 L 90 L 86 L 01/20/18 11:00 Temperature Pulse Rate 92 H Respiratory Rate 23 Blood Pressure 123/62 Pulse Oximetry 88 L Intake & Output 01/19/18 01/20/18 01/20/18 18:59 06:59 18:59 Intake Total 960 / 960 600 / 600 Output Total 1600 / 1600 125 / 125 Balance -640 / -640 475 / 475 Weight 92 kg Intake: Oral 960 / 960 600 / 600 Output: Urine 100 / 100 125 / 125 Hemodialysis Amount 1500 / 1500 Other: # Voids 2 Date of Last Bowel Movement 01/19/18 01/19/18 01/19/18 # Bowel Movements 1 0 Assessment and Plan - Assessment (1) Atrial fibrillation with rapid ventricular response Code(s): I48.91 - Unspecified atrial fibrillation Status: Acute (2) CHF (congestive heart failure) Code(s): I50.9 - Heart failure, unspecified Status: Acute (3) Chronic kidney disease with end stage renal failure on dialysis Code(s): N18.6 - End stage renal disease; Z99.2 - Dependence on renal dialysis Status: Acute (4) Atrial fibrillation with RVR Code(s): I48.91 - Unspecified atrial fibrillation Status: Acute (5) ESRD (end stage renal disease) on dialysis Code(s): N18.6 - End stage renal disease; Z99.2 - Dependence on renal dialysis Status: Acute - Plan 1.) Afib with rvr - failing medical management due to hypotension, Dr Weinberg started amio and coumadin, rates improved but still in low 100's, consider avn ablation and ppm if hr trend remains > 100, d/w patient 2.) [place] - plan cath 01/21/18, check ekg, serial trop, hold coumadin, d/w nurse (2) CHF (congestive heart failure) Qualifiers: Heart failure type: unspecified Heart failure chronicity: unspecified Qualified Code(s): I50.9 - Heart failure, unspecified
--- NOTE | 2018-01-20 18:04 | ECG ---
Date Performed: 01/20/2018 Time Performed: 14:25:42 PTAGE: 72 years EKG: ATRIAL FIBRILLATION BORDERLINE LEFT AXIS DEVIATION NONSPECIFIC ST & T-WAVE ABNORMALITY ABNO RMAL RHYTHM ECG PREVIOUS TRACING : 01/15/2018 18.08 Compared to previous tracing, rate slower DOCTOR: Ruel Fermin Interpretating Date/Time 01/20/2018 18:03:23
[2018-01-21] MEDS: Metoprolol Tartrate 25 MG Tablet PO SCH ×4 (02:21→21:33)
[2018-01-21 04:51] LABS: INR 1.8 Ratio; Prothrombin Time 18.1 sec (9.8-11.6)
[2018-01-21 05:03] LABS: Hematocrit 34.9 % (39.0-51.0); Hemoglobin 11.1 gm/dL (13.0-17.0); Mean Corpuscular HGB Conc 31.7 % (32.0-36.0); Mean Corpuscular Hemoglobin 27.3 pg (27.0-34.0); Mean Platelet Volume 9.1 fL (7.0-11.0); Platelet Count 207 th/mm3 (150-450); Red Blood Count 4.06 mil/mm3 (4.50-5.90); Red Cell Distribution Width 15.4 % (11.6-17.2); White Blood Count 8.5 th/mm3 (4.0-11.0)
[2018-01-21] MEDS: Chlorhexidine Gluconate 2% 1 Pack (2 Cloths) TOPICAL SCH (05:05)
[2018-01-21 05:12] LABS: Anion Gap 11 meq/L (5-15); Blood Urea Nitrogen 56 mg/dL (7-18); Calcium 9.1 mg/dL (8.5-10.1); Carbon Dioxide 27.8 meq/L (21.0-32.0); Chloride 97 meq/L (98-107); Glomerular Filtration Rate 6 mL/min (>89); Glucose,Random 95 mg/dL (74-106); Potassium 6.1 meq/L (3.5-5.1); Sodium 136 meq/L (136-145)
[2018-01-21] MEDS: Senna/Docusate Sodium 8.6/50 MG Tablet PO SCH ×2 (08:12→21:34)
[2018-01-21] MEDS: Amiodarone 200 MG Tablet PO SCH ×2 (08:13→21:33)
[2018-01-21] MEDS: Budesonide-Formoterol 160/4.5 MCG 6 GM Inhaler INH SCH ×2 (08:14→21:37)
--- NOTE | 2018-01-21 10:12 | P.PNIM ---
Subjective Interval history: Patient had significant chest pain yesterday. Cardiology planning for heart catheterization today. He reports he still have some mild chest tightness. Breathing is about the same. Physical Exam Vital signs: Vital Signs 01/20/18 11:00 01/20/18 12:00 01/20/18 13:00 Temperature 98.0 F Pulse Rate 92 H 98 H 96 H Respiratory Rate 23 29 H 26 H Blood Pressure 123/62 129/69 145/70 H Pulse Oximetry 92 L 92 L 92 L 01/20/18 14:00 01/20/18 15:00 01/20/18 16:00 Temperature 98.5 F Pulse Rate 90 88 88 Respiratory Rate 26 H 14 26 H Blood Pressure 139/71 117/79 129/66 Pulse Oximetry 90 L 92 L 88 L 01/20/18 17:00 01/20/18 18:00 01/20/18 19:00 Temperature Pulse Rate 88 86 79 Respiratory Rate 19 17 25 H Blood Pressure 129/68 115/69 129/74 Pulse Oximetry 96 94 L 93 L 01/20/18 20:00 01/20/18 21:00 01/21/18 00:00 Temperature 98.2 F 97.9 F Pulse Rate 81 76 59 L Respiratory Rate 23 14 18 Blood Pressure 127/71 128/67 121/58 L Pulse Oximetry 77 L 83 L 91 L 01/21/18 04:00 01/21/18 07:52 01/21/18 08:00 Temperature 98 F 98.4 F Pulse Rate 63 72 Respiratory Rate 27 H 24 Blood Pressure 123/59 L 123/63 Pulse Oximetry 87 L 87 L 90 L Intake & Output 01/20/18 01/21/18 01/21/18 18:59 06:59 18:59 Intake Total 810 / 810 720 / 720 Output Total 50 / 50 325 / 325 Balance 760 / 760 395 / 395 Weight 92 kg Intake: Oral 810 / 810 720 / 720 Output: Urine 50 / 50 325 / 325 Other: Date of Last Bowel Movement 01/19/18 01/19/18 01/19/18 # Bowel Movements 0 Narrative: GENERAL: No acute distress CARDIOVASCULAR: Rate in the 80s. Irregularly irregular rhythm. RESPIRATORY: No accessory muscle use. Clear to auscultation. Breath sounds equal bilaterally. GASTROINTESTINAL: Abdomen soft, non-tender, nondistended. Hepatic and splenic margins not palpable. MUSCULOSKELETAL: Extremities without clubbing, cyanosis, or edema. No obvious deformities. NEUROLOGICAL: Awake and alert. No obvious cranial nerve deficits. Results - Labs CBC & Chem 7: 01/21/18 03:38 01/21/18 03:38 Laboratory Results - last 24 hr 01/20/18 01/20/18 01/21/18 14:37 20:02 03:38 WBC RBC Hgb Hct MCV MCH MCHC RDW Plt Count MPV PT INR Sodium 136 Potassium 6.1 H D Chloride 97 L Carbon Dioxide 27.8 Anion Gap 11 BUN 56 H Creatinine 8.41 H Estimated GFR 6 L Random Glucose 95 Calcium 9.1 D Troponin I Less than 0.02 L Less than 0.02 L Less than 0.02 L 01/21/18 01/21/18 03:38 03:38 WBC 8.5 RBC 4.06 L Hgb 11.1 L Hct 34.9 L MCV 86.0 MCH 27.3 MCHC 31.7 L RDW 15.4 Plt Count 207 MPV 9.1 PT 18.1 H INR 1.8 Sodium Potassium Chloride Carbon Dioxide Anion Gap BUN Creatinine Estimated GFR Random Glucose Calcium Troponin I Assessment and Plan - Assessment (1) Atrial fibrillation with RVR Code(s): I48.91 - Unspecified atrial fibrillation Status: Acute (2) Chest pain Code(s): R07.9 - Chest pain, unspecified Status: Acute (3) ESRD (end stage renal disease) on dialysis Code(s): N18.6 - End stage renal disease; Z99.2 - Dependence on renal dialysis Status: Acute (4) CHF (congestive heart failure) Code(s): I50.9 - Heart failure, unspecified Status: Acute - Plan Afib w/ RVR: New Onset. Patient was admitted about a month ago for SVT Cardiogenic shock on 01/18. Became Hypotensive after receiving Bystolic. This was discontinued and patient started on Midodrine with the assistance of time study technician. -Initially rate very difficult to control. Rate is now controlled. Appreciate Cardiology input. Continue Amiodarone and Lopressor. -[id number] score about 3. Patient started on Coumadin per Cardiology. Follow INR. CHF: ?Diastolic. Echo 12/10/17 w/ EF 55%, BNP 1096 on admission. Suspect persistent tachyarrhythmia could have contributed to elevated BNP CXR reviewed: w/ mild interstitial prominence but improved from previous. Monitor I/O -No evidence of fluid overload currently. Treated tachyarrhythmia as above. Chest Pain: Persistent. Cardiac enzymes negative. -Cardiology planning for heart catheterization today. He is due for dialysis today. Discussed with RN to let Cardiology know regarding timing of cath prior to dialysis. ESRD on HD: M/W/F, s/p LUE AV Fistula 12/17/[address] Hutson, Permacath placed . -Appreciate nephrology following. Continue hemodialysis as scheduled. GI prophylaxis: Stool softener PRN constipation. DVT PPx: Heparin Discharge Planning: For heart cath today. Patient and family does not want to return to [facility] when medically cleared. Discussed with case management. (4) CHF (congestive heart failure) Qualifiers: Heart failure type: unspecified Heart failure chronicity: unspecified Qualified Code(s): I50.9 - Heart failure, unspecified
[2018-01-21] MEDS: Heparin 10,000 UNITS/10 ML Vial (for IV use) OTHER PRN (11:54)
--- NOTE | 2018-01-21 13:33 | P.PNNP ---
Subjective Interval history: Hyperkalemic today, seen during dialysis. He developed chest pain overnight. Plan for cardiac catheterization toda. <Jyoti Ceron - Last Filed: 01/21/18 13:27> Physical Exam Vital signs: Vital Signs 01/20/18 14:00 01/20/18 15:00 01/20/18 16:00 Temperature 98.5 F Pulse Rate 90 88 88 Respiratory Rate 26 H 14 26 H Blood Pressure 139/71 117/79 129/66 Pulse Oximetry 90 L 92 L 88 L 01/20/18 17:00 01/20/18 18:00 01/20/18 19:00 Temperature Pulse Rate 88 86 79 Respiratory Rate 19 17 25 H Blood Pressure 129/68 115/69 129/74 Pulse Oximetry 96 94 L 93 L 01/20/18 20:00 01/20/18 21:00 01/21/18 00:00 Temperature 98.2 F 97.9 F Pulse Rate 81 76 59 L Respiratory Rate 23 14 18 Blood Pressure 127/71 128/67 121/58 L Pulse Oximetry 77 L 83 L 91 L 01/21/18 04:00 01/21/18 07:52 01/21/18 08:00 Temperature 98 F 98.4 F Pulse Rate 63 72 Respiratory Rate 27 H 24 Blood Pressure 123/59 L 123/63 Pulse Oximetry 87 L 87 L 90 L 01/21/18 10:00 01/21/18 12:00 Temperature 98 F Pulse Rate 72 Respiratory Rate Blood Pressure 141/67 H Pulse Oximetry Intake & Output 01/20/18 01/21/18 01/21/18 18:59 06:59 18:59 Intake Total 810 / 810 720 / 720 Output Total 50 / 50 325 / 325 1999 Balance 760 / 760 395 / 395 -1999 Weight 92 kg Intake: Oral 810 / 810 720 / 720 Output: Urine 50 / 50 325 / 325 Hemodialysis Amount 1999 Other: Date of Last Bowel Movement 01/19/18 01/19/18 01/19/18 # Bowel Movements 0 - Constitutional no acute distress - Routine HEENT Exam Head: Present: normocephalic - Routine Neck Exam Present: supple, full ROM - Routine Respiratory Exam Present: decreased breath sounds, rales, crackles. Absent: accessory muscle use , prolonged expiratory phase - Routine Cardiovascular Exam Present: S1, S2, irregular rhythm, irregularly irregular - Routine Abdominal Exam Present: soft, normoactive bowel sounds - Routine Extremities Exam Present: full ROM, pulses intact, normal capillary refill. Absent: edema - Routine Skin Exam Present: intact, dry, warm - Routine Neurological Exam Present: alert, oriented X3, CN II-XII intact - Detailed Neurological Exam: Coma Scale Eye Opening: Spontaneous Verbal Response: Oriented Motor Response: Obey commands [place] Coma Scale Total: 15 - Routine Psychiatric Exam Present: normal affect, normal thought process <Jyoti Ceron - Last Filed: 01/21/18 13:27> Vital signs: Vital Signs 01/20/18 20:00 01/20/18 21:00 01/21/18 00:00 Temperature 98.2 F 97.9 F Pulse Rate 81 76 59 L Respiratory Rate 23 14 18 Blood Pressure 127/71 128/67 121/58 L Pulse Oximetry 77 L 83 L 91 L 01/21/18 04:00 01/21/18 05:00 01/21/18 06:00 Temperature 98 F Pulse Rate 63 67 68 Respiratory Rate 27 H 21 14 Blood Pressure 123/59 L 113/55 L 121/58 L Pulse Oximetry 87 L 92 L 91 L 01/21/18 07:00 01/21/18 07:52 01/21/18 08:00 Temperature 98.4 F Pulse Rate 65 66 Respiratory Rate 24 28 H Blood Pressure 121/57 L 124/61 Pulse Oximetry 93 L 87 L 89 L 01/21/18 09:00 01/21/18 09:15 01/21/18 09:30 Temperature Pulse Rate 79 68 89 Respiratory Rate 25 H 20 25 H Blood Pressure 114/60 128/63 133/62 Pulse Oximetry 84 L 74 L 85 L 01/21/18 09:45 01/21/18 10:00 01/21/18 10:04 Temperature Pulse Rate 99 H 105 H 103 H Respiratory Rate 21 24 35 H Blood Pressure 141/62 H 129/60 Pulse Oximetry 96 87 L 84 L 01/21/18 10:15 01/21/18 10:30 01/21/18 10:45 Temperature Pulse Rate 106 H 107 H 107 H Respiratory Rate 34 H 23 20 Blood Pressure 127/60 134/61 123/68 Pulse Oximetry 80 L 86 L 90 L 01/21/18 11:00 01/21/18 11:15 01/21/18 11:30 Temperature Pulse Rate 106 H 106 H 103 H Respiratory Rate 18 18 18 Blood Pressure 126/62 120/63 134/65 Pulse Oximetry 86 L 85 L 88 L 01/21/18 11:45 01/21/18 12:00 01/21/18 12:15 Temperature 98 F Pulse Rate 99 H 103 H 101 H Respiratory Rate 19 24 21 Blood Pressure 124/70 141/67 H 121/60 Pulse Oximetry 86 L 81 L 81 L 01/21/18 12:20 01/21/18 13:00 01/21/18 14:00 Temperature Pulse Rate 103 H 102 H 95 H Respiratory Rate 21 14 22 Blood Pressure 130/60 114/64 122/70 Pulse Oximetry 84 L 88 L 89 L 01/21/18 15:00 01/21/18 15:01 01/21/18 16:00 Temperature Pulse Rate 98 H 100 H 94 H Respiratory Rate 23 24 24 Blood Pressure 94/54 L 86/51 L Pulse Oximetry 75 L 82 L 86 L 01/21/18 17:00 Temperature 98 F Pulse Rate 95 H Respiratory Rate 19 Blood Pressure 92/57 L Pulse Oximetry 90 L Intake & Output 01/21/18 01/21/18 01/22/18 06:59 18:59 06:59 Intake Total 720 / 720 960 / 960 Output Total 325 / 325 4400 / 4400 Balance 395 / 395 -3440 / -3440 Weight 92 kg Intake: Oral 720 / 720 960 / 960 Output: Urine 325 / 325 400 / 400 Hemodialysis Amount 4000 / 4000 Other: # Voids 2 # Incontinent Voids 0 Date of Last Bowel Movement 01/19/18 01/19/18 # Bowel Movements 0 0 <Eduardo Salvador - Last Filed: 01/21/18 19:56> Assessment and Plan - Assessment (1) ESRD (end stage renal disease) on dialysis Code(s): N18.6 - End stage renal disease; Z99.2 - Dependence on renal dialysis Status: Acute Plan: Continue HD MWF, has outpatient arrangements in place if discharged. Seen during dialysis today on a 1K, 350 BFR, goal 2L Monitor electrolytes intermittently. Avoid IVF administration Protect left arm from procedures, has new AV access that is not mature. PermCath in place for HD use. Phosphorus level acceptable without binder therapy. (2) Atrial fibrillation with RVR Code(s): I48.91 - Unspecified atrial fibrillation Status: Acute Plan: Rate is mostly controlled On PO Amiodarone and metoprolol. Consider changing to labetalol or carvedilol as metoprolol is dialyzable. Was hypotensive now BP is better. Midodrine is ordered TID. On Coumadin, follow INR May require AV gilbert ablation with PPM insertion. (3) CHF (congestive heart failure) Code(s): I50.9 - Heart failure, unspecified Status: Acute Qualifiers: Heart failure type: unspecified Heart failure chronicity: unspecified Qualified Code(s): I50.9 - Heart failure, unspecified Plan: Monitor fluid status, fluid removal as tolerated EF 50-55% Cardiology following (4) Anemia in CKD (chronic kidney disease) Code(s): N18.9 - Chronic kidney disease, unspecified; D63.1 - Anemia in chronic kidney disease Status: Acute Plan: On Epogen with dialysis. <Jyoti Ceron - Last Filed: 01/21/18 13:27> - Assessment (1) ESRD (end stage renal disease) on dialysis Code(s): N18.6 - End stage renal disease; Z99.2 - Dependence on renal dialysis Status: Acute (2) Atrial fibrillation with RVR Code(s): I48.91 - Unspecified atrial fibrillation Status: Acute (3) CHF (congestive heart failure) Code(s): I50.9 - Heart failure, unspecified Status: Acute Qualifiers: Heart failure type: unspecified Heart failure chronicity: unspecified Qualified Code(s): I50.9 - Heart failure, unspecified (4) Anemia in CKD (chronic kidney disease) Code(s): N18.9 - Chronic kidney disease, unspecified; D63.1 - Anemia in chronic kidney disease Status: Acute - Attending Attestation patient was seen and examined. Agree with above assessment and plan. Seen during dialysis. Hyperkalemic this morning, likely due to the fact that he was NPO. Cardiac catheterization is planned. <Eduardo Salvador - Last Filed: 01/21/18 19:56>
[2018-01-21] MEDS: Heparin - SQ 10,000 UNITS/ML Vial SQ SCH ×2 (16:32→21:35)
[2018-01-22] MEDS: Metoprolol Tartrate 25 MG Tablet PO SCH ×4 (03:10→21:23)
[2018-01-22 06:50] LABS: INR 2.3 Ratio; Prothrombin Time 23.1 sec (9.8-11.6)
[2018-01-22 07:16] LABS: Calcium 8.4 mg/dL (8.5-10.1); Carbon Dioxide 32.9 meq/L (21.0-32.0); Magnesium 2.4 mg/dL (1.5-2.5); Potassium 4.4 meq/L (3.5-5.1)
--- NOTE | 2018-01-22 10:20 | P.PNIM ---
Subjective Interval history: Patient reports he is feeling okay today. No chest pain. He is scheduled for heart catheterization around 1 PM today. Physical Exam Vital signs: Vital Signs 01/21/18 10:30 01/21/18 10:45 01/21/18 11:00 Temperature Pulse Rate 107 H 107 H 106 H Respiratory Rate 23 20 18 Blood Pressure 134/61 123/68 126/62 Pulse Oximetry 86 L 90 L 86 L 01/21/18 11:15 01/21/18 11:30 01/21/18 11:45 Temperature Pulse Rate 106 H 103 H 99 H Respiratory Rate 18 18 19 Blood Pressure 120/63 134/65 124/70 Pulse Oximetry 85 L 88 L 86 L 01/21/18 12:00 01/21/18 12:15 01/21/18 12:20 Temperature 98 F Pulse Rate 103 H 101 H 103 H Respiratory Rate 24 21 21 Blood Pressure 141/67 H 121/60 130/60 Pulse Oximetry 81 L 81 L 84 L 01/21/18 13:00 01/21/18 14:00 01/21/18 15:00 Temperature Pulse Rate 102 H 95 H 98 H Respiratory Rate 14 22 23 Blood Pressure 114/64 122/70 Pulse Oximetry 88 L 89 L 75 L 01/21/18 15:01 01/21/18 16:00 01/21/18 17:00 Temperature 98 F Pulse Rate 100 H 94 H 95 H Respiratory Rate 24 24 19 Blood Pressure 94/54 L 86/51 L 92/57 L Pulse Oximetry 82 L 86 L 90 L 01/21/18 20:00 01/22/18 00:00 01/22/18 00:20 Temperature 98.4 F 98.2 F Pulse Rate 86 90 Respiratory Rate 28 H 22 Blood Pressure 96/51 L 119/67 Pulse Oximetry 93 L 90 L 92 L 01/22/18 04:00 Temperature 98.4 F Pulse Rate 91 H Respiratory Rate 20 Blood Pressure 123/66 Pulse Oximetry 93 L Intake & Output 01/21/18 01/22/18 01/22/18 18:59 06:59 18:59 Intake Total 960 / 960 200 / 200 Output Total 4400 / 4400 100 / 100 Balance -3440 / -3440 100 / 100 Weight 94 kg Intake: Oral 960 / 960 200 / 200 Output: Urine 400 / 400 100 / 100 Hemodialysis Amount 4000 / 4000 Other: # Voids 2 1 # Incontinent Voids 0 Date of Last Bowel Movement 01/19/18 01/19/18 # Bowel Movements 0 Narrative: GENERAL: No acute distress CARDIOVASCULAR: Rate in the 80s. Irregularly irregular rhythm. RESPIRATORY: No accessory muscle use. Clear to auscultation. Breath sounds equal bilaterally. GASTROINTESTINAL: Abdomen soft, non-tender, nondistended. Hepatic and splenic margins not palpable. MUSCULOSKELETAL: Extremities without clubbing, cyanosis, or edema. No obvious deformities. NEUROLOGICAL: Awake and alert. No obvious cranial nerve deficits. Results - Labs CBC & Chem 7: 01/21/18 03:38 01/22/18 05:17 Laboratory Results - last 24 hr 01/21/18 01/21/18 01/22/18 03:38 12:07 05:17 PT 23.1 H INR 2.3 Sodium Potassium Chloride Carbon Dioxide Anion Gap BUN Creatinine Estimated GFR POC Glucose 80 Random Glucose Calcium Magnesium 2.6 H 01/22/18 05:17 PT INR Sodium 139 Potassium 4.4 D Chloride 99 Carbon Dioxide 32.9 H Anion Gap 7 BUN 44 H Creatinine 7.21 H Estimated GFR 8 L POC Glucose Random Glucose 109 H Calcium 8.4 L Magnesium 2.4 Assessment and Plan - Assessment (1) Atrial fibrillation with RVR Code(s): I48.91 - Unspecified atrial fibrillation Status: Acute (2) Chest pain Code(s): R07.9 - Chest pain, unspecified Status: Acute (3) ESRD (end stage renal disease) on dialysis Code(s): N18.6 - End stage renal disease; Z99.2 - Dependence on renal dialysis Status: Acute (4) CHF (congestive heart failure) Code(s): I50.9 - Heart failure, unspecified Status: Acute - Plan 72-year-old male admitted with new onset A. fib with RVR, rate initially very difficult to control due to issues of hypotension. Rate is now controlled. Patient to undergo heart catheterization for persistent chest pain. Afib w/ RVR: New Onset. Patient was admitted about a month ago for SVT Cardiogenic shock on 01/18. Became Hypotensive after receiving Bystolic. This was discontinued and patient started on Midodrine with the assistance of director global sales. -Initially rate very difficult to control. Rate is now controlled. Appreciate Cardiology input. Continue Amiodarone and Lopressor. -[id number] score about 3. Patient started on Coumadin per Cardiology. Follow INR. CHF: ?Diastolic. Echo 12/10/17 w/ EF 55%, BNP 1096 on admission. Suspect persistent tachyarrhythmia could have contributed to elevated BNP CXR reviewed: w/ mild interstitial prominence but improved from previous. Monitor I/O -No evidence of fluid overload currently. Treated tachyarrhythmia as above. Chest Pain: Persistent. Cardiac enzymes negative. -Cardiology planning for heart catheterization today. ESRD on HD: M/W/F, s/p LUE AV Fistula 12/17/[address] Hutson, Permacath placed . -Appreciate nephrology following. Continue hemodialysis as scheduled. GI prophylaxis: Stool softener PRN constipation. DVT PPx: Heparin Discharge Planning: For heart cath today. Patient and family does not want to return to [facility] when medically cleared. Discussed with case management. (4) CHF (congestive heart failure) Qualifiers: Heart failure type: unspecified Heart failure chronicity: unspecified Qualified Code(s): I50.9 - Heart failure, unspecified
--- NOTE | 2018-01-22 10:26 | P.PNNP ---
Subjective Interval history: Dialyzed yesterday. Cardiac cath postponed until today. Family at bedside. Heart rate 80s. No chest pain reported. <Jyoti Ceron - Last Filed: 01/22/18 10:22> Physical Exam Vital signs: Vital Signs 01/21/18 10:30 01/21/18 10:45 01/21/18 11:00 Temperature Pulse Rate 107 H 107 H 106 H Respiratory Rate 23 20 18 Blood Pressure 134/61 123/68 126/62 Pulse Oximetry 86 L 90 L 86 L 01/21/18 11:15 01/21/18 11:30 01/21/18 11:45 Temperature Pulse Rate 106 H 103 H 99 H Respiratory Rate 18 18 19 Blood Pressure 120/63 134/65 124/70 Pulse Oximetry 85 L 88 L 86 L 01/21/18 12:00 01/21/18 12:15 01/21/18 12:20 Temperature 98 F Pulse Rate 103 H 101 H 103 H Respiratory Rate 24 21 21 Blood Pressure 141/67 H 121/60 130/60 Pulse Oximetry 81 L 81 L 84 L 01/21/18 13:00 01/21/18 14:00 01/21/18 15:00 Temperature Pulse Rate 102 H 95 H 98 H Respiratory Rate 14 22 23 Blood Pressure 114/64 122/70 Pulse Oximetry 88 L 89 L 75 L 01/21/18 15:01 01/21/18 16:00 01/21/18 17:00 Temperature 98 F Pulse Rate 100 H 94 H 95 H Respiratory Rate 24 24 19 Blood Pressure 94/54 L 86/51 L 92/57 L Pulse Oximetry 82 L 86 L 90 L 01/21/18 20:00 01/22/18 00:00 01/22/18 00:20 Temperature 98.4 F 98.2 F Pulse Rate 86 90 Respiratory Rate 28 H 22 Blood Pressure 96/51 L 119/67 Pulse Oximetry 93 L 90 L 92 L 01/22/18 04:00 Temperature 98.4 F Pulse Rate 91 H Respiratory Rate 20 Blood Pressure 123/66 Pulse Oximetry 93 L Intake & Output 01/21/18 01/22/18 01/22/18 18:59 06:59 18:59 Intake Total 960 / 960 200 / 200 Output Total 4400 / 4400 100 / 100 Balance -3440 / -3440 100 / 100 Weight 94 kg Intake: Oral 960 / 960 200 / 200 Output: Urine 400 / 400 100 / 100 Hemodialysis Amount 4000 / 4000 Other: # Voids 2 1 # Incontinent Voids 0 Date of Last Bowel Movement 01/19/18 01/19/18 # Bowel Movements 0 - Constitutional no acute distress, average body habitus, chronically ill appearing - Routine HEENT Exam Head: Present: normocephalic Eye: Present: EOMI - Routine Neck Exam Present: supple, full ROM. Absent: JVD - Routine Respiratory Exam Present: CTA bilaterally, diminished air movement. Absent: accessory muscle use - Routine Cardiovascular Exam Present: S1, S2, irregular rhythm, irregularly irregular. Absent: murmur - Routine Abdominal Exam Present: soft, normoactive bowel sounds - Routine Extremities Exam Present: pulses intact, normal capillary refill, AV fistula, vascular access. Absent: edema Comments: AVF left arm patent PC right IJ - Routine Skin Exam Present: intact, dry, warm - Routine Neurological Exam Present: alert, oriented X3, CN II-XII intact - Detailed Neurological Exam: Coma Scale Eye Opening: Spontaneous Verbal Response: Oriented Motor Response: Obey commands Olesya Coma Scale Total: 15 - Routine Psychiatric Exam Present: normal affect, normal thought process <Jyoti Ceron - Last Filed: 01/22/18 10:22> Vital signs: Vital Signs 01/21/18 15:00 01/21/18 15:01 01/21/18 16:00 Temperature Pulse Rate 98 H 100 H 94 H Respiratory Rate 23 24 24 Blood Pressure 94/54 L 86/51 L Pulse Oximetry 75 L 82 L 86 L 01/21/18 17:00 01/21/18 20:00 01/22/18 00:00 Temperature 98 F 98.4 F 98.2 F Pulse Rate 95 H 86 90 Respiratory Rate 19 28 H 22 Blood Pressure 92/57 L 96/51 L 119/67 Pulse Oximetry 90 L 93 L 90 L 01/22/18 00:20 01/22/18 04:00 01/22/18 08:00 Temperature 98.4 F Pulse Rate 91 H Respiratory Rate 20 Blood Pressure 123/66 Pulse Oximetry 92 L 93 L 94 L Intake & Output 01/21/18 01/22/18 01/22/18 18:59 06:59 18:59 Intake Total 960 / 960 200 / 200 Output Total 4400 / 4400 100 / 100 Balance -3440 / -3440 100 / 100 Weight 94 kg Intake: Oral 960 / 960 200 / 200 Output: Urine 400 / 400 100 / 100 Hemodialysis Amount 4000 / 4000 Other: # Voids 2 1 # Incontinent Voids 0 Date of Last Bowel Movement 01/19/18 01/19/18 # Bowel Movements 0 <Eduardo Salvador - Last Filed: 01/22/18 14:38> Assessment and Plan - Assessment (1) ESRD (end stage renal disease) on dialysis Code(s): N18.6 - End stage renal disease; Z99.2 - Dependence on renal dialysis Status: Acute Plan: Continue HD MWF, has outpatient arrangements in place if discharged. Dialyzed yesterday, 2L UF. Monitor electrolytes intermittently. Avoid IVF administration Protect left arm from procedures, has new AV access that is not mature. PermCath in place for HD use. Phosphorus level acceptable without binder therapy. High protein low K diet when allowed to eat. (2) Atrial fibrillation with RVR Code(s): I48.91 - Unspecified atrial fibrillation Status: Acute Plan: Rate is now controlled On PO Amiodarone and metoprolol. Consider changing to labetalol or carvedilol as metoprolol is dialyzable. Midodrine is ordered TID. On Coumadin, follow INR May require AV gilbert ablation with PPM insertion. Plan for cardiac cath due to chest pain today. (3) CHF (congestive heart failure) Code(s): I50.9 - Heart failure, unspecified Status: Acute Plan: Monitor fluid status, fluid removal as tolerated EF 50-55% Cardiology following (4) Anemia in CKD (chronic kidney disease) Code(s): N18.9 - Chronic kidney disease, unspecified; D63.1 - Anemia in chronic kidney disease Status: Acute Plan: On Epogen with dialysis. <Jyoti Ceron - Last Filed: 01/22/18 10:22> - Assessment (1) ESRD (end stage renal disease) on dialysis Code(s): N18.6 - End stage renal disease; Z99.2 - Dependence on renal dialysis Status: Acute (2) Atrial fibrillation with RVR Code(s): I48.91 - Unspecified atrial fibrillation Status: Acute (3) CHF (congestive heart failure) Code(s): I50.9 - Heart failure, unspecified Status: Acute Qualifiers: Heart failure type: unspecified Heart failure chronicity: unspecified Qualified Code(s): I50.9 - Heart failure, unspecified (4) Anemia in CKD (chronic kidney disease) Code(s): N18.9 - Chronic kidney disease, unspecified; D63.1 - Anemia in chronic kidney disease Status: Acute - Attending Attestation patient was seen and examined. Agree with above assessment and plan. Dialysis tomorrow. <Eduardo Salvador - Last Filed: 01/22/18 14:38>
[2018-01-22] MEDS: Senna/Docusate Sodium 8.6/50 MG Tablet PO SCH ×2 (10:32→21:23)
[2018-01-22] MEDS: Amiodarone 200 MG Tablet PO SCH ×2 (10:33→21:23)
[2018-01-22] MEDS ORDERED: Heparin/NS PF Inj 1,000 ML ONE (12:03)
[2018-01-22] MEDS ORDERED: fentaNYL Citrate Inj 100 MCG/2 ML Ampul ONE (12:10)
[2018-01-22] MEDS: Budesonide-Formoterol 160/4.5 MCG 6 GM Inhaler INH SCH (17:13)
--- NOTE | 2018-01-22 21:03 | P.PNCA ---
Subjective Interval history: alert in nad, still having chest pain, but improved Physical Exam Vital signs: Vital Signs 01/21/18 22:00 01/21/18 23:00 01/22/18 00:00 Temperature 98.2 F Pulse Rate 86 89 90 Respiratory Rate 22 23 22 Blood Pressure 110/55 L 109/61 119/67 Pulse Oximetry 91 L 86 L 90 L 01/22/18 00:20 01/22/18 01:00 01/22/18 02:00 Temperature Pulse Rate 89 92 H Respiratory Rate 15 8 L Blood Pressure 108/57 L 101/58 L Pulse Oximetry 92 L 95 82 L 01/22/18 03:00 01/22/18 04:00 01/22/18 05:00 Temperature 98.4 F Pulse Rate 91 H 91 H 91 H Respiratory Rate 12 20 16 Blood Pressure 120/65 123/65 100/61 Pulse Oximetry 88 L 88 L 94 L 01/22/18 06:00 01/22/18 07:00 01/22/18 08:00 Temperature Pulse Rate 89 90 89 Respiratory Rate 12 7 L 16 Blood Pressure 128/61 117/57 L 127/60 Pulse Oximetry 100 97 87 L 01/22/18 09:00 01/22/18 09:01 01/22/18 10:00 Temperature Pulse Rate 89 91 H 94 H Respiratory Rate 26 H 28 H Blood Pressure 117/66 122/63 Pulse Oximetry 88 L 82 L 01/22/18 11:00 01/22/18 12:37 01/22/18 12:38 Temperature Pulse Rate 94 H 97 H 94 H Respiratory Rate 20 11 L Blood Pressure 132/64 119/66 Pulse Oximetry 89 L 78 L 86 L 01/22/18 14:00 01/22/18 16:00 01/22/18 16:07 Temperature 98.2 F Pulse Rate 97 H 97 H 104 H Respiratory Rate 26 H 17 26 H Blood Pressure 92/65 L Pulse Oximetry 88 L 89 L 83 L 01/22/18 16:52 01/22/18 17:01 Temperature Pulse Rate 104 H Respiratory Rate 24 Blood Pressure 119/56 L Pulse Oximetry 93 L 84 L Intake & Output 01/22/18 01/22/18 01/23/18 06:59 18:59 06:59 Intake Total 200 / 200 620 / 620 Output Total 100 / 100 300 / 300 Balance 100 / 100 320 / 320 Weight 94 kg Intake: Oral 200 / 200 620 / 620 Output: Urine 100 / 100 300 / 300 Hemodialysis Amount 0 / 0 Other: # Voids 1 2 # Incontinent Voids 0 Date of Last Bowel Movement 01/19/18 01/19/18 # Bowel Movements 0 Assessment and Plan - Assessment (1) Atrial fibrillation with rapid ventricular response Code(s): I48.91 - Unspecified atrial fibrillation Status: Acute (2) CHF (congestive heart failure) Code(s): I50.9 - Heart failure, unspecified Status: Acute (3) Chronic kidney disease with end stage renal failure on dialysis Code(s): N18.6 - End stage renal disease; Z99.2 - Dependence on renal dialysis Status: Acute (4) Atrial fibrillation with RVR Code(s): I48.91 - Unspecified atrial fibrillation Status: Acute (5) ESRD (end stage renal disease) on dialysis Code(s): N18.6 - End stage renal disease; Z99.2 - Dependence on renal dialysis Status: Acute - Plan 1.) Afib with rvr - failing medical management due to hypotension, Dr Weinberg started amio and coumadin, rates improved but still in low 100's, consider avn ablation and ppm if hr trend remains > 100, d/w patient 2.) [place] - plan cath 01/23/18 if inr < 2.0, check ekg, serial trop, hold coumadin , d/w nurse (2) CHF (congestive heart failure) Qualifiers: Heart failure type: unspecified Heart failure chronicity: unspecified Qualified Code(s): I50.9 - Heart failure, unspecified
[2018-01-23 00:11] LABS: INR 2.4 Ratio; Prothrombin Time 24.5 sec (9.8-11.6)
[2018-01-23] MEDS: Budesonide-Formoterol 160/4.5 MCG 6 GM Inhaler INH SCH ×3 (01:32→21:02)
[2018-01-23] MEDS: Metoprolol Tartrate 25 MG Tablet PO SCH ×4 (02:38→21:01)
[2018-01-23 04:29] LABS: Hematocrit 32.2 % (39.0-51.0); Hemoglobin 10.3 gm/dL (13.0-17.0); Mean Corpuscular HGB Conc 32.1 % (32.0-36.0); Mean Corpuscular Hemoglobin 27.6 pg (27.0-34.0); Mean Platelet Volume 8.8 fL (7.0-11.0); Platelet Count 186 th/mm3 (150-450); Red Blood Count 3.75 mil/mm3 (4.50-5.90); Red Cell Distribution Width 15.4 % (11.6-17.2); White Blood Count 6.6 th/mm3 (4.0-11.0)
[2018-01-23 04:44] LABS: INR 2.3 Ratio; Prothrombin Time 23.1 sec (9.8-11.6)
[2018-01-23 05:09] LABS: Calcium 8.7 mg/dL (8.5-10.1); Carbon Dioxide 30.4 meq/L (21.0-32.0); Potassium 4.5 meq/L (3.5-5.1)
--- NOTE | 2018-01-23 09:41 | P.PNIM ---
Subjective Interval history: The patient was talking with his daughter over the phone. He said he still had chest pain from time to time. He says he has been coughing up some blood, but his daughter over the phone stated that that has been going on for a while and he has had 2 negative tuberculosis tests. The patient is hoping to get a catheterization soon. Discussed with nursing. Physical Exam Vital signs: Vital Signs 01/22/18 10:00 01/22/18 11:00 01/22/18 12:37 Temperature Pulse Rate 94 H 94 H 97 H Respiratory Rate 28 H 20 Blood Pressure 122/63 132/64 Pulse Oximetry 82 L 89 L 78 L 01/22/18 12:38 01/22/18 14:00 01/22/18 16:00 Temperature 98.2 F Pulse Rate 94 H 97 H 97 H Respiratory Rate 11 L 26 H 17 Blood Pressure 119/66 Pulse Oximetry 86 L 88 L 89 L 01/22/18 16:07 01/22/18 16:52 01/22/18 17:01 Temperature Pulse Rate 104 H 104 H Respiratory Rate 26 H 24 Blood Pressure 92/65 L 119/56 L Pulse Oximetry 83 L 93 L 84 L 01/22/18 18:00 01/22/18 19:00 01/22/18 20:00 Temperature 98.4 F Pulse Rate 103 H 96 H 94 H Respiratory Rate 23 19 15 Blood Pressure 93/53 L 104/57 L 121/60 Pulse Oximetry 85 L 85 L 91 L 01/22/18 21:01 01/22/18 21:28 01/22/18 22:00 Temperature Pulse Rate 99 H 97 H Respiratory Rate 19 18 Blood Pressure 111/61 113/62 Pulse Oximetry 90 L 94 L 88 L 01/22/18 23:00 01/23/18 00:00 01/23/18 01:00 Temperature 98.4 F Pulse Rate 100 H 98 H 97 H Respiratory Rate 23 20 13 Blood Pressure 125/71 126/70 107/66 Pulse Oximetry 87 L 90 L 95 01/23/18 02:00 01/23/18 03:00 01/23/18 04:00 Temperature 97.8 F Pulse Rate 96 H 98 H 94 H Respiratory Rate 17 17 16 Blood Pressure 115/61 120/67 129/66 Pulse Oximetry 93 L 92 L 92 L 01/23/18 05:00 01/23/18 06:00 07/27/18 07:01 Temperature Pulse Rate 95 H 94 H 96 H Respiratory Rate 18 17 19 Blood Pressure 127/60 125/61 117/59 L Pulse Oximetry 94 L 95 88 L 01/23/18 08:00 01/23/18 08:30 01/23/18 08:45 Temperature 97.5 F L Pulse Rate 93 H 95 H 97 H Respiratory Rate 16 22 24 Blood Pressure 119/67 127/70 136/71 Pulse Oximetry 92 L 93 L 92 L 01/23/18 09:00 01/23/18 09:15 01/23/18 09:30 Temperature Pulse Rate 97 H 99 H 99 H Respiratory Rate 22 18 19 Blood Pressure 152/78 H 126/73 133/73 Pulse Oximetry 90 L 89 L 88 L Intake & Output 01/22/18 01/23/18 01/23/18 18:59 06:59 18:59 Intake Total 620 / 620 200 / 200 Output Total 300 / 300 200 / 200 Balance 320 / 320 0 / 0 Weight 95 kg Intake: Oral 620 / 620 200 / 200 Output: Urine 300 / 300 200 / 200 Stool 0 / 0 Hemodialysis Amount 0 / 0 Other: # Voids 2 2 # Incontinent Voids 0 0 Date of Last Bowel Movement 01/19/18 01/19/18 01/19/18 # Bowel Movements 0 0 Narrative: GENERAL: No acute distress. HEENT: NC, AT. CARDIOVASCULAR: Irregularly irregular rhythm. RESPIRATORY: No accessory muscle use. Clear to auscultation. Breath sounds equal bilaterally. GASTROINTESTINAL: Abdomen soft, non-tender, nondistended. Hepatic and splenic margins not palpable. MUSCULOSKELETAL: Extremities without clubbing, cyanosis, or edema. No obvious deformities. NEUROLOGICAL: Awake and alert. No obvious cranial nerve deficits. Results - Labs CBC & Chem 7: 01/23/18 04:02 01/23/18 04:02 Laboratory Results - last 24 hr 01/22/18 01/22/18 01/23/18 21:33 23:53 04:02 WBC RBC Hgb Hct MCV MCH MCHC RDW Plt Count MPV PT 24.5 H 23.1 H INR 2.4 2.3 Sodium Potassium Chloride Carbon Dioxide Anion Gap BUN Creatinine Estimated GFR Random Glucose Calcium Troponin I 0.03 01/23/18 01/23/18 04:02 04:02 WBC 6.6 RBC 3.75 L Hgb 10.3 L Hct 32.2 L MCV 86.0 MCH 27.6 MCHC 32.1 RDW 15.4 Plt Count 186 MPV 8.8 PT INR Sodium 140 Potassium 4.5 Chloride 99 Carbon Dioxide 30.4 Anion Gap 11 BUN 52 H Creatinine 8.37 H Estimated GFR 6 L Random Glucose 116 H Calcium 8.7 Troponin I Assessment and Plan - Assessment (1) Atrial fibrillation with RVR Code(s): I48.91 - Unspecified atrial fibrillation Status: Acute (2) Chest pain Code(s): R07.9 - Chest pain, unspecified Status: Acute (3) ESRD (end stage renal disease) on dialysis Code(s): N18.6 - End stage renal disease; Z99.2 - Dependence on renal dialysis Status: Acute (4) CHF (congestive heart failure) Code(s): I50.9 - Heart failure, unspecified Status: Acute - Plan 72-year-old male admitted with new onset A. fib with RVR, rate initially very difficult to control due to issues of hypotension. Rate is now controlled. Patient to undergo heart catheterization for persistent chest pain. Afib w/ RVR New Onset. Patient was admitted about a month ago for SVT. Cardiogenic shock on 01/18: Became Hypotensive after receiving Bystolic. This was discontinued and patient was started on Midodrine. - Appreciate Cardiology input. Continue Amiodarone and Lopressor. - [id number] score about 3. Patient started on Coumadin per cardiology. Coumadin on hold for cath. Follow INR. CHF ?Diastolic. Echo 12/10/17 w/ EF 55%, BNP 1096 on admission. Suspect persistent tachyarrhythmia could have contributed to elevated BNP. CXR reviewed: w/ mild interstitial prominence but improved from previous. - Monitor I/O. - continue cardiac regimen and follow-up with cardiology. Chest pain Persistent. Cardiac enzymes negative. - Cardiology planning for heart catheterization when INR < 2. ESRD On HD: M/W/F, s/p LUE AV Fistula 12/17/[address] Hutson, Permacath placed . - Appreciate nephrology following. Continue hemodialysis as scheduled. DVT PPx: Heparin (4) CHF (congestive heart failure) Qualifiers: Heart failure type: unspecified Heart failure chronicity: unspecified Qualified Code(s): I50.9 - Heart failure, unspecified
--- NOTE | 2018-01-23 10:09 | P.PNCA ---
Subjective Interval history: still having mild chest pain Physical Exam Vital signs: Vital Signs 01/22/18 11:00 01/22/18 12:37 01/22/18 12:38 Temperature Pulse Rate 94 H 97 H 94 H Respiratory Rate 20 11 L Blood Pressure 132/64 119/66 Pulse Oximetry 89 L 78 L 86 L 01/22/18 14:00 01/22/18 16:00 01/22/18 16:07 Temperature 98.2 F Pulse Rate 97 H 97 H 104 H Respiratory Rate 26 H 17 26 H Blood Pressure 92/65 L Pulse Oximetry 88 L 89 L 83 L 01/22/18 16:52 01/22/18 17:01 01/22/18 18:00 Temperature Pulse Rate 104 H 103 H Respiratory Rate 24 23 Blood Pressure 119/56 L 93/53 L Pulse Oximetry 93 L 84 L 85 L 01/22/18 19:00 01/22/18 20:00 01/22/18 21:01 Temperature 98.4 F Pulse Rate 96 H 94 H 99 H Respiratory Rate 19 15 19 Blood Pressure 104/57 L 121/60 111/61 Pulse Oximetry 85 L 91 L 90 L 01/22/18 21:28 01/22/18 22:00 01/22/18 23:00 Temperature Pulse Rate 97 H 100 H Respiratory Rate 18 23 Blood Pressure 113/62 125/71 Pulse Oximetry 94 L 88 L 87 L 01/23/18 00:00 01/23/18 01:00 01/23/18 02:00 Temperature 98.4 F Pulse Rate 98 H 97 H 96 H Respiratory Rate 20 13 17 Blood Pressure 126/70 107/66 115/61 Pulse Oximetry 90 L 95 93 L 01/23/18 03:00 01/23/18 04:00 01/23/18 05:00 Temperature 97.8 F Pulse Rate 98 H 94 H 95 H Respiratory Rate 17 16 18 Blood Pressure 120/67 129/66 127/60 Pulse Oximetry 92 L 92 L 94 L 01/23/18 06:00 01/23/18 07:01 01/23/18 08:00 Temperature 97.5 F L Pulse Rate 94 H 96 H 93 H Respiratory Rate 17 19 16 Blood Pressure 125/61 117/59 L 119/67 Pulse Oximetry 95 88 L 92 L 01/23/18 08:30 01/23/18 08:45 01/23/18 09:00 Temperature Pulse Rate 95 H 97 H 97 H Respiratory Rate 22 24 22 Blood Pressure 127/70 136/71 152/78 H Pulse Oximetry 93 L 92 L 90 L 01/23/18 09:15 01/23/18 09:30 Temperature Pulse Rate 99 H 99 H Respiratory Rate 18 19 Blood Pressure 126/73 133/73 Pulse Oximetry 89 L 88 L Intake & Output 01/22/18 01/23/18 01/23/18 18:59 06:59 18:59 Intake Total 620 / 620 200 / 200 Output Total 300 / 300 200 / 200 Balance 320 / 320 0 / 0 Weight 95 kg Intake: Oral 620 / 620 200 / 200 Output: Urine 300 / 300 200 / 200 Stool 0 / 0 Hemodialysis Amount 0 / 0 Other: # Voids 2 2 # Incontinent Voids 0 0 Date of Last Bowel Movement 01/19/18 01/19/18 01/19/18 # Bowel Movements 0 0 Assessment and Plan - Assessment (1) Atrial fibrillation with rapid ventricular response Code(s): I48.91 - Unspecified atrial fibrillation Status: Acute (2) CHF (congestive heart failure) Code(s): I50.9 - Heart failure, unspecified Status: Acute (3) Chronic kidney disease with end stage renal failure on dialysis Code(s): N18.6 - End stage renal disease; Z99.2 - Dependence on renal dialysis Status: Acute (4) Atrial fibrillation with RVR Code(s): I48.91 - Unspecified atrial fibrillation Status: Acute (5) ESRD (end stage renal disease) on dialysis Code(s): N18.6 - End stage renal disease; Z99.2 - Dependence on renal dialysis Status: Acute - Plan 1.) Afib with rvr - Dr Weinberg started amio and coumadin, rates improved, below 100 's, coumadin held for cath 2.) [place] - plan cath 01/26/18 if inr < 2.0, check ekg, serial trop, hold coumadin , d/w nurse (2) CHF (congestive heart failure) Qualifiers: Heart failure type: unspecified Heart failure chronicity: unspecified Qualified Code(s): I50.9 - Heart failure, unspecified
--- NOTE | 2018-01-23 10:12 | XR ---
EXAM DATE: 01/23/2018 10:01 AM EDT AGE/SEX: 72 years / Male INDICATIONS: Shortness of breath. CLINICAL DATA: This is the patient's subsequent encounter. Patient reports that signs and symptoms h ave been present for 1 day and indicates a pain score of 0/10. MEDICAL/SURGICAL HISTORY: Hypertension. Chronic obstructive pulmonary disease. Congestive hea rt failure. . Central line. [place] [facility] [place]. . FINDINGS: A single AP erect portable view the chest was obtained and again demonstrates the right-sided double lumen central venous line. Streaky interstitial opacities noted in both lungs which appear mildly inc reased. The left costophrenic angle appears slightly blunted. The heart size is mildly prominent. The bony structures remain intact. CONCLUSION: Mild interval increase in interstitial opacities of concern for pulmonary edema. Electronically signed by: Ze Smith MD 01/23/2018 10:10 AM EDT
[2018-01-23] MEDS: Senna/Docusate Sodium 8.6/50 MG Tablet PO SCH ×2 (11:32→21:01)
[2018-01-23] MEDS: Amiodarone 200 MG Tablet PO SCH ×2 (11:32→21:01)
--- NOTE | 2018-01-23 12:00 | P.PNNP ---
Subjective Interval history: INR 2.2. The plan for cardiac cath postponed until Friday. Seen during dialysis. <Jyoti Ceron - Last Filed: 01/23/18 11:57> Physical Exam Vital signs: Vital Signs 01/22/18 12:37 01/22/18 12:38 01/22/18 14:00 Temperature Pulse Rate 97 H 94 H 97 H Respiratory Rate 11 L 26 H Blood Pressure 119/66 Pulse Oximetry 78 L 86 L 88 L 01/22/18 16:00 01/22/18 16:07 01/22/18 16:52 Temperature 98.2 F Pulse Rate 97 H 104 H Respiratory Rate 17 26 H Blood Pressure 92/65 L Pulse Oximetry 89 L 83 L 93 L 01/22/18 17:01 01/22/18 18:00 01/22/18 19:00 Temperature Pulse Rate 104 H 103 H 96 H Respiratory Rate 24 23 19 Blood Pressure 119/56 L 93/53 L 104/57 L Pulse Oximetry 84 L 85 L 85 L 01/22/18 20:00 01/22/18 21:01 01/22/18 21:28 Temperature 98.4 F Pulse Rate 94 H 99 H Respiratory Rate 15 19 Blood Pressure 121/60 111/61 Pulse Oximetry 91 L 90 L 94 L 01/22/18 22:00 01/22/18 23:00 01/23/18 00:00 Temperature 98.4 F Pulse Rate 97 H 100 H 98 H Respiratory Rate 18 23 20 Blood Pressure 113/62 125/71 126/70 Pulse Oximetry 88 L 87 L 90 L 01/23/18 01:00 01/23/18 02:00 01/23/18 03:00 Temperature Pulse Rate 97 H 96 H 98 H Respiratory Rate 13 17 17 Blood Pressure 107/66 115/61 120/67 Pulse Oximetry 95 93 L 92 L 01/23/18 04:00 01/23/18 05:00 01/23/18 06:00 Temperature 97.8 F Pulse Rate 94 H 95 H 94 H Respiratory Rate 16 18 17 Blood Pressure 129/66 127/60 125/61 Pulse Oximetry 92 L 94 L 95 01/23/18 07:01 01/23/18 08:00 01/23/18 08:30 Temperature 97.5 F L Pulse Rate 96 H 93 H 95 H Respiratory Rate 19 16 22 Blood Pressure 117/59 L 119/67 127/70 Pulse Oximetry 88 L 92 L 93 L 01/23/18 08:45 01/23/18 09:00 01/23/18 09:15 Temperature Pulse Rate 97 H 93 H 99 H Respiratory Rate 24 22 18 Blood Pressure 136/71 152/78 H 126/73 Pulse Oximetry 92 L 90 L 89 L 01/23/18 09:30 Temperature Pulse Rate 99 H Respiratory Rate 19 Blood Pressure 133/73 Pulse Oximetry 88 L Intake & Output 01/22/18 01/23/18 01/23/18 18:59 06:59 18:59 Intake Total 620 / 620 200 / 200 Output Total 300 / 300 200 / 200 1200 / 1200 Balance 320 / 320 0 / 0 -1200 / -1200 Weight 95 kg Intake: Oral 620 / 620 200 / 200 Output: Urine 300 / 300 200 / 200 Stool 0 / 0 Hemodialysis Amount 0 / 0 1200 / 1200 Other: # Voids 2 2 # Incontinent Voids 0 0 Date of Last Bowel Movement 01/19/18 01/19/18 01/19/18 # Bowel Movements 0 0 - Constitutional no acute distress, average body habitus - Routine HEENT Exam Head: Present: normocephalic - Routine Neck Exam Present: supple, full ROM - Routine Respiratory Exam Present: CTA bilaterally. Absent: accessory muscle use - Routine Cardiovascular Exam Present: S1, S2, tachycardia Comments: rate 105 - Routine Abdominal Exam Present: soft, normoactive bowel sounds - Routine Extremities Exam Present: normal capillary refill. Absent: edema - Routine Skin Exam Present: intact, warm - Routine Neurological Exam Present: alert, oriented X3, CN II-XII intact - Detailed Neurological Exam: Coma Scale Eye Opening: Spontaneous Verbal Response: Oriented Motor Response: Obey commands Olesya Coma Scale Total: 15 - Routine Psychiatric Exam Present: normal affect, normal thought process <Jyoti Ceron - Last Filed: 01/23/18 11:57> Vital signs: Vital Signs 01/22/18 16:00 01/22/18 16:07 01/22/18 16:52 Temperature 98.2 F Pulse Rate 97 H 104 H Respiratory Rate 17 26 H Blood Pressure 92/65 L Pulse Oximetry 89 L 83 L 93 L 01/22/18 17:01 01/22/18 18:00 01/22/18 19:00 Temperature Pulse Rate 104 H 103 H 96 H Respiratory Rate 24 23 19 Blood Pressure 119/56 L 93/53 L 104/57 L Pulse Oximetry 84 L 85 L 85 L 01/22/18 20:00 01/22/18 21:01 01/22/18 21:28 Temperature 98.4 F Pulse Rate 94 H 99 H Respiratory Rate 15 19 Blood Pressure 121/60 111/61 Pulse Oximetry 91 L 90 L 94 L 01/22/18 22:00 01/22/18 23:00 01/23/18 00:00 Temperature 98.4 F Pulse Rate 97 H 100 H 98 H Respiratory Rate 18 23 20 Blood Pressure 113/62 125/71 126/70 Pulse Oximetry 88 L 87 L 90 L 01/23/18 01:00 01/23/18 02:00 01/23/18 03:00 Temperature Pulse Rate 97 H 96 H 98 H Respiratory Rate 13 17 17 Blood Pressure 107/66 115/61 120/67 Pulse Oximetry 95 93 L 92 L 01/23/18 04:00 01/23/18 05:00 01/23/18 06:00 Temperature 97.8 F Pulse Rate 94 H 95 H 94 H Respiratory Rate 16 18 17 Blood Pressure 129/66 127/60 125/61 Pulse Oximetry 92 L 94 L 95 01/23/18 07:01 01/23/18 08:00 01/23/18 08:30 Temperature 97.5 F L Pulse Rate 96 H 93 H 95 H Respiratory Rate 19 16 22 Blood Pressure 117/59 L 119/67 127/70 Pulse Oximetry 88 L 92 L 93 L 01/23/18 08:45 01/23/18 09:00 01/23/18 09:15 Temperature Pulse Rate 97 H 93 H 99 H Respiratory Rate 24 22 18 Blood Pressure 136/71 152/78 H 126/73 Pulse Oximetry 92 L 90 L 89 L 01/23/18 09:30 01/23/18 09:45 01/23/18 10:00 Temperature Pulse Rate 99 H 102 H 103 H Respiratory Rate 19 21 28 H Blood Pressure 133/73 151/81 H 138/65 Pulse Oximetry 88 L 88 L 86 L 01/23/18 10:15 01/23/18 10:30 01/23/18 10:45 Temperature Pulse Rate 105 H 105 H 109 H Respiratory Rate 22 20 17 Blood Pressure 106/58 L 101/65 113/59 L Pulse Oximetry 84 L 87 L 83 L 01/23/18 11:00 01/23/18 11:15 01/23/18 11:30 Temperature Pulse Rate 105 H 104 H 103 H Respiratory Rate 18 20 26 H Blood Pressure 110/55 L 130/59 L 112/57 L Pulse Oximetry 97 89 L 89 L 01/23/18 11:45 01/23/18 12:00 01/23/18 12:15 Temperature 97.5 F L Pulse Rate 102 H 103 H 106 H Respiratory Rate 21 22 25 H Blood Pressure 107/57 L 118/60 112/57 L Pulse Oximetry 88 L 91 L 94 L 01/23/18 12:30 01/23/18 12:45 01/23/18 13:09 Temperature Pulse Rate 104 H 103 H 104 H Respiratory Rate 23 25 H 33 H Blood Pressure 129/62 133/70 125/61 Pulse Oximetry 92 L 89 L 87 L 01/23/18 13:15 01/23/18 13:30 01/23/18 13:45 Temperature Pulse Rate 104 H 105 H 106 H Respiratory Rate 26 H 24 26 H Blood Pressure 118/61 145/67 H 136/65 Pulse Oximetry 80 L 80 L 87 L 01/23/18 14:05 Temperature Pulse Rate Respiratory Rate 24 Blood Pressure Pulse Oximetry Intake & Output 01/22/18 01/23/18 01/23/18 18:59 06:59 18:59 Intake Total 620 / 620 200 / 200 Output Total 300 / 300 200 / 200 1200 / 1200 Balance 320 / 320 0 / 0 -1200 / -1200 Weight 95 kg Intake: Oral 620 / 620 200 / 200 Output: Urine 300 / 300 200 / 200 Stool 0 / 0 Hemodialysis Amount 0 / 0 1200 / 1200 Other: # Voids 2 2 # Incontinent Voids 0 0 Date of Last Bowel Movement 01/19/18 01/19/18 01/19/18 # Bowel Movements 0 0 <Eduardo Salvador - Last Filed: 01/23/18 15:54> Assessment and Plan - Assessment (1) ESRD (end stage renal disease) on dialysis Code(s): N18.6 - End stage renal disease; Z99.2 - Dependence on renal dialysis Status: Acute Plan: Continue HD MWF. Seen during HD today on a 3K, 350 BFR, goal 1L. Monitor electrolytes intermittently. Avoid IVF administration Protect left arm from procedures, has new AV access that is not mature. PermCath in place for HD use. Phosphorus level acceptable without binder therapy. High protein low K diet ordered. (2) Atrial fibrillation with RVR Code(s): I48.91 - Unspecified atrial fibrillation Status: Acute Plan: Rate is variable. On PO Amiodarone and metoprolol. Consider changing to labetalol or carvedilol as metoprolol is dialyzable. Midodrine is ordered TID. On Coumadin, INR therapeutic. On hold for cath on Friday. May require AV gilbert ablation with PPM insertion. (3) CHF (congestive heart failure) Code(s): I50.9 - Heart failure, unspecified Status: Acute Qualifiers: Heart failure type: unspecified Heart failure chronicity: unspecified Qualified Code(s): I50.9 - Heart failure, unspecified Plan: Monitor fluid status, fluid removal as tolerated EF 50-55% Cardiology following (4) Anemia in CKD (chronic kidney disease) Code(s): N18.9 - Chronic kidney disease, unspecified; D63.1 - Anemia in chronic kidney disease Status: Acute Plan: On Epogen with dialysis. <Jyoti Ceron - Last Filed: 01/23/18 11:57> - Assessment (1) ESRD (end stage renal disease) on dialysis Code(s): N18.6 - End stage renal disease; Z99.2 - Dependence on renal dialysis Status: Acute (2) Atrial fibrillation with RVR Code(s): I48.91 - Unspecified atrial fibrillation Status: Acute (3) CHF (congestive heart failure) Code(s): I50.9 - Heart failure, unspecified Status: Acute Qualifiers: Heart failure type: unspecified Heart failure chronicity: unspecified Qualified Code(s): I50.9 - Heart failure, unspecified (4) Anemia in CKD (chronic kidney disease) Code(s): N18.9 - Chronic kidney disease, unspecified; D63.1 - Anemia in chronic kidney disease Status: Acute - Attending Attestation patient was seen and examined. Agree with above assessment and plan. Cardiac catheterization is planned for Friday. <Eduardo Salvador - Last Filed: 01/23/18 15:54>
--- NOTE | 2018-01-23 12:35 | P.DIET ---
Nutritional Evaluation Type of nutrition evaluation: follow-up Nutrition screening: Weight Loss > 10 lbs Subjective Subjective Comments: Reports good appetite; independent feed. Objective - Diagnosis CHF, AFib w/RVR, CHF on HD - Objective [place] body weight: 89 kg Body Weight Used for Calculations: Actual (93kg used for assessment here) Energy Needs - Lower Range (kCal/kg): 28 Energy Needs - Upper Range (kCal/kg): 33 Lower Limit kCal/kg (kCals): 2,604 Upper Limit kCal/kg (kCals): 3,069 Lower Limit Protein Factor (Grams per Kg): 1.2 Upper Limit Protein Factor (Grams per Kg): 1.5 Lower Protein Needs (Protein): 112 Upper Protein Needs (Protein): 140 Dietitian Reviewed in Medical Record: Current diet, Curent medications, Intake & Output, Labs, Medical history Diet Order: NPO Oral Diet Intake Amount: Fair 50-75% Objective Comments: PMH Includes: CHF, ESRD on HD, Fistula, HTN, DM-2, hyperlipidemia Feeding - Current PO Supplement Current Supplement: Nepro Current Supplement Flavor: Vanilla Current Frequency of Supplement: Twice daily Current kCals Provided by Supplement: 425 Current Protein Provided by Supplement: 20 Assessment Assessment: Pt is at nutritional risk r/t reported recent unintentional wt loss and need for HD. Adequate po intake for meals recorded in EMR, 50% or greater. Send Nepro bid. Labs reviewed. Noted pt to have cardiac cath 01/26. Will continue to monitor po intake, clinical course. Recommendations: 1.Send Nepro supplement BID to offer additional nutrition Dietitian to Monitor: Lab values, Electrolytes, Renal labs, Glucose level, Supplement acceptance, Intake & Output, Weight change, PO Intake, Medical course
[2018-01-23] MEDS: Morphine Inj 4 MG/ML Vial IV.PUSH PRN ×3 (12:48→21:02)
--- NOTE | 2018-01-23 23:47 | XR ---
EXAM DATE: 01/23/2018 11:42 PM EDT AGE/SEX: 72 years / Male INDICATIONS: Nausea and vomiting. CLINICAL DATA: This is the patient's initial encounter. Patient reports that signs and symptoms have been present for 1 day and indicates a pain score of 0/10. MEDICAL/SURGICAL HISTORY: . Hypertension. Chronic obstructive pulmonary disease. Congestive he art failure. A-fib. . Central line. COMPARISON: No prior exams available for comparison. FINDINGS: Air and stool seen throughout colon. No dilated loops of bowel. No gross pneumatosis or free air. No abnormal calcifications. Dextroscoliosis of the lumbar spine with associated degenerative spondylosis . CONCLUSION: 1. Nonobstructive bowel gas pattern. Electronically signed by: Usama Cobian MD 01/23/2018 11:46 PM EDT
[2018-01-24] MEDS: Morphine Inj 4 MG/ML Vial IV.PUSH PRN (04:14)
[2018-01-24] MEDS: Metoprolol Tartrate 25 MG Tablet PO SCH ×4 (04:15→20:30)
[2018-01-24 05:22] LABS: Hematocrit 34.6 % (39.0-51.0); Hemoglobin 11.2 gm/dL (13.0-17.0); Mean Corpuscular HGB Conc 32.5 % (32.0-36.0); Mean Corpuscular Hemoglobin 28.1 pg (27.0-34.0); Mean Corpuscular Volume 86.6 fL (80.0-100.0); Mean Platelet Volume 9.1 fL (7.0-11.0); Platelet Count 193 th/mm3 (150-450); Red Cell Distribution Width 15.4 % (11.6-17.2); White Blood Count 6.9 th/mm3 (4.0-11.0)
[2018-01-24 05:43] LABS: Calcium 8.9 mg/dL (8.5-10.1); Carbon Dioxide 33.1 meq/L (21.0-32.0); Potassium 4.7 meq/L (3.5-5.1)
[2018-01-24] MEDS: Senna/Docusate Sodium 8.6/50 MG Tablet PO SCH ×2 (08:46→20:30)
[2018-01-24] MEDS: Amiodarone 200 MG Tablet PO SCH ×2 (08:46→20:30)
[2018-01-24] MEDS: Bisacodyl 10 MG Supp RECTAL PRN (08:48)
--- NOTE | 2018-01-24 09:32 | XR ---
EXAM DATE: 01/24/2018 9:26 AM EDT AGE/SEX: 72 years / Male INDICATIONS: Chest pain. CLINICAL DATA: This is the patient's initial encounter. Patient reports that signs and symptoms have been present for 2 weeks and indicates a pain score of 0/10. MEDICAL/SURGICAL HISTORY: Hypertension. Chronic obstructive pulmonary disease. Congestive hea rt failure. . Central line. COMPARISON: [facility], CHEST 1V SINGLE AP, 01/23/2018. . FINDINGS: Slight cardiomegaly seen with interstitial process most likely pulmonary edema not significantly sosa ged. Right IJ line is present with tip overlapping the expected region of the SVC. CONCLUSION: No appreciable change. Electronically signed by: Joeclyn Han MD 01/24/2018 9:31 AM EDT
--- NOTE | 2018-01-24 09:39 | P.PNIM ---
Subjective Interval history: The patient had some nausea and vomiting overnight. He still has not had a bowel movement. He has been passing gas. He says his chest pain is better. He does still have shortness of breath. Discussed with nursing at the bedside. Physical Exam Vital signs: Vital Signs 01/23/18 09:45 01/23/18 10:00 01/23/18 10:15 Temperature Pulse Rate 102 H 103 H 105 H Respiratory Rate 21 28 H 22 Blood Pressure 151/81 H 138/65 106/58 L Pulse Oximetry 88 L 86 L 84 L 01/23/18 10:30 01/23/18 10:45 01/23/18 11:00 Temperature Pulse Rate 105 H 109 H 105 H Respiratory Rate 20 17 18 Blood Pressure 101/65 113/59 L 110/55 L Pulse Oximetry 87 L 83 L 97 01/23/18 11:15 01/23/18 11:30 01/23/18 11:45 Temperature Pulse Rate 104 H 103 H 102 H Respiratory Rate 20 26 H 21 Blood Pressure 130/59 L 112/57 L 107/57 L Pulse Oximetry 89 L 89 L 88 L 01/23/18 12:00 01/23/18 12:15 01/23/18 12:30 Temperature 97.5 F L Pulse Rate 103 H 106 H 104 H Respiratory Rate 22 25 H 23 Blood Pressure 118/60 112/57 L 129/62 Pulse Oximetry 91 L 94 L 92 L 01/23/18 12:45 01/23/18 13:09 01/23/18 13:15 Temperature Pulse Rate 103 H 104 H 104 H Respiratory Rate 25 H 33 H 26 H Blood Pressure 133/70 125/61 118/61 Pulse Oximetry 89 L 87 L 80 L 01/23/18 13:30 01/23/18 13:45 01/23/18 14:00 Temperature Pulse Rate 105 H 106 H 106 H Respiratory Rate 24 26 H 22 Blood Pressure 145/67 H 136/65 118/64 Pulse Oximetry 80 L 87 L 83 L 01/23/18 14:05 01/23/18 14:15 01/23/18 14:30 Temperature Pulse Rate 107 H 107 H Respiratory Rate 24 22 23 Blood Pressure 113/62 129/61 Pulse Oximetry 85 L 86 L 01/23/18 14:45 01/23/18 15:00 01/23/18 15:20 Temperature Pulse Rate 106 H 106 H 107 H Respiratory Rate 22 24 21 Blood Pressure 118/58 L 103/58 L 117/71 Pulse Oximetry 83 L 84 L 89 L 01/23/18 15:30 01/23/18 15:45 01/23/18 16:00 Temperature Pulse Rate 104 H 105 H 100 H Respiratory Rate 19 22 23 Blood Pressure 116/67 115/70 Pulse Oximetry 91 L 90 L 83 L 01/23/18 16:01 01/23/18 16:29 01/23/18 16:30 Temperature 96.7 F L Pulse Rate 103 H 103 H 105 H Respiratory Rate 22 24 17 Blood Pressure 113/59 L 124/65 123/63 Pulse Oximetry 90 L 91 L 92 L 01/23/18 16:45 01/23/18 17:00 01/23/18 17:15 Temperature Pulse Rate 103 H 105 H 103 H Respiratory Rate 13 16 16 Blood Pressure 104/57 L 103/58 L 118/64 Pulse Oximetry 91 L 91 L 91 L 01/23/18 17:30 01/23/18 17:45 01/23/18 20:00 Temperature 97.9 F Pulse Rate 102 H 104 H 100 H Respiratory Rate 17 19 18 Blood Pressure 128/62 128/65 123/61 Pulse Oximetry 93 L 89 L 95 01/24/18 00:00 01/24/18 04:00 Temperature 97.7 F 97.5 F L Pulse Rate 100 H 101 H Respiratory Rate 18 14 Blood Pressure 129/67 140/74 Pulse Oximetry 96 99 Intake & Output 01/23/18 01/24/18 01/24/18 18:59 06:59 18:59 Intake Total 640 / 640 0 / 0 Output Total 1400 / 1400 75 / 75 Balance -760 / -760 -75 / -75 Weight 90.5 kg Intake: Oral 640 / 640 0 / 0 Output: Urine 200 / 200 75 / 75 Stool 0 / 0 Hemodialysis Amount 1200 / 1200 0 / 0 Other: # Voids 2 2 # Incontinent Voids 0 Date of Last Bowel Movement 01/19/18 01/19/18 # Bowel Movements 0 Narrative: GENERAL: No acute distress. HEENT: NC, AT. CARDIOVASCULAR: Irregularly irregular rhythm. RESPIRATORY: No accessory muscle use. Crackles at the bases. GASTROINTESTINAL: Abdomen soft, non-tender, nondistended. Hepatic and splenic margins not palpable. Decreased bowel sounds. MUSCULOSKELETAL: Extremities without clubbing, cyanosis, TR edema. No obvious deformities. NEUROLOGICAL: Awake and alert. No obvious cranial nerve deficits. Results - Labs CBC & Chem 7: 01/24/18 04:04 01/24/18 04:04 Laboratory Results - last 24 hr 01/23/18 01/24/18 01/24/18 20:24 04:04 04:04 WBC 6.9 RBC 4.00 L Hgb 11.2 L Hct 34.6 L MCV 86.6 MCH 28.1 MCHC 32.5 RDW 15.4 Plt Count 193 MPV 9.1 Sodium 139 Potassium 4.7 Chloride 99 Carbon Dioxide 33.1 H Anion Gap 7 BUN 36 H Creatinine 6.76 H Estimated GFR 8 L POC Glucose 110 Random Glucose 110 H Calcium 8.9 - Imaging Impressions Chest X-Ray 01/23/18 09:37 CONCLUSION: Mild interval increase in interstitial opacities of concern for pulmonary edema. Abdomen X-Ray 01/23/18 23:05 CONCLUSION: 1. Nonobstructive bowel gas pattern. Chest X-Ray 01/24/18 08:50 CONCLUSION: No appreciable change. Assessment and Plan - Assessment (1) Atrial fibrillation with RVR Code(s): I48.91 - Unspecified atrial fibrillation Status: Acute (2) Chest pain Code(s): R07.9 - Chest pain, unspecified Status: Acute (3) ESRD (end stage renal disease) on dialysis Code(s): N18.6 - End stage renal disease; Z99.2 - Dependence on renal dialysis Status: Acute (4) CHF (congestive heart failure) Code(s): I50.9 - Heart failure, unspecified Status: Acute - Plan 72-year-old male admitted with new onset A. fib with RVR, rate initially very difficult to control due to issues of hypotension. Rate is now controlled. Patient to undergo heart catheterization for persistent chest pain. Afib w/ RVR New Onset. Patient was admitted about a month ago for SVT. Cardiogenic shock on 01/18: Became Hypotensive after receiving Bystolic. This was discontinued and patient was started on Midodrine. - Appreciate Cardiology input. Continue Amiodarone and Lopressor. - [id number] score about 3. Patient started on Coumadin per cardiology. Coumadin on hold for cath. Follow INR daily. CHF ?Diastolic. Echo 12/10/17 w/ EF 55%, BNP 1096 on admission. Suspect persistent tachyarrhythmia could have contributed to elevated BNP. CXR indicative of pulmonary congestion. - Monitor I/O. - continue cardiac regimen and follow-up with cardiology. - volume management with dialysis. Chest pain Improved. Cardiac enzymes negative. - Cardiology planning for heart catheterization when INR < 2. Anticipate on Friday. ESRD On HD: M/W/F, s/p LUE AV Fistula 12/17/[address] Hutson, Permacath placed . - Appreciate nephrology following. Continue hemodialysis as scheduled. Acute respiratory failure The pt has been requiring 5L NC. CXR indicative of pulmonary congestion. - hold off on nebs as to not exacerbate Afib. - continue Symbicort. - volume management with dialysis. - pulmonology consult pending. - add vancomycin and Zosyn to cover underlying pneumonia. Constipation Ongoing. KUB unremarkable. Pt with N/V overnight. - continue bowel regimen. - add suppository. Enema if needed. DVT PPx: INR elevated. Switch to heparin gtt when under 2. (4) CHF (congestive heart failure) Qualifiers: Heart failure type: unspecified Heart failure chronicity: unspecified Qualified Code(s): I50.9 - Heart failure, unspecified
[2018-01-24] MEDS ORDERED: Vancomycin Consult Pharmacy 1 EACH OTHER SCH (10:00)
[2018-01-24] MEDS ORDERED: Vancomycin Inj 1,750 MG in Sodium Chlor 0.9% Inj 500 ML IV.SIG ONE (11:00)
--- NOTE | 2018-01-24 11:10 | P.PNNP ---
Subjective Interval history: Patient seen , alert, has mild SOB, with nasal cannula, no chest pain. Physical Exam Vital signs: Vital Signs 01/23/18 11:00 01/23/18 11:15 01/23/18 11:30 Temperature Pulse Rate 105 H 104 H 103 H Respiratory Rate 18 20 26 H Blood Pressure 110/55 L 130/59 L 112/57 L Pulse Oximetry 97 89 L 89 L 01/23/18 11:45 01/23/18 12:00 01/23/18 12:15 Temperature 97.5 F L Pulse Rate 102 H 103 H 106 H Respiratory Rate 21 22 25 H Blood Pressure 107/57 L 118/60 112/57 L Pulse Oximetry 88 L 91 L 94 L 01/23/18 12:30 01/23/18 12:45 01/23/18 13:09 Temperature Pulse Rate 104 H 103 H 104 H Respiratory Rate 23 25 H 33 H Blood Pressure 129/62 133/70 125/61 Pulse Oximetry 92 L 89 L 87 L 01/23/18 13:15 01/23/18 13:30 01/23/18 13:45 Temperature Pulse Rate 104 H 105 H 106 H Respiratory Rate 26 H 24 26 H Blood Pressure 118/61 145/67 H 136/65 Pulse Oximetry 80 L 80 L 87 L 01/23/18 14:00 01/23/18 14:05 01/23/18 14:15 Temperature Pulse Rate 106 H 107 H Respiratory Rate 22 24 22 Blood Pressure 118/64 113/62 Pulse Oximetry 83 L 85 L 01/23/18 14:30 01/23/18 14:45 01/23/18 15:00 Temperature Pulse Rate 107 H 106 H 106 H Respiratory Rate 23 22 24 Blood Pressure 129/61 118/58 L 103/58 L Pulse Oximetry 86 L 83 L 84 L 01/23/18 15:20 01/23/18 15:30 01/23/18 15:45 Temperature Pulse Rate 107 H 104 H 105 H Respiratory Rate 21 19 22 Blood Pressure 117/71 116/67 115/70 Pulse Oximetry 89 L 91 L 90 L 01/23/18 16:00 01/23/18 16:01 01/23/18 16:29 Temperature 96.7 F L Pulse Rate 100 H 103 H 103 H Respiratory Rate 23 22 24 Blood Pressure 113/59 L 124/65 Pulse Oximetry 83 L 90 L 91 L 01/23/18 16:30 01/23/18 16:45 01/23/18 17:00 Temperature Pulse Rate 105 H 103 H 105 H Respiratory Rate 17 13 16 Blood Pressure 123/63 104/57 L 103/58 L Pulse Oximetry 92 L 91 L 91 L 01/23/18 17:15 01/23/18 17:30 01/23/18 17:45 Temperature Pulse Rate 103 H 102 H 104 H Respiratory Rate 16 17 19 Blood Pressure 118/64 128/62 128/65 Pulse Oximetry 91 L 93 L 89 L 01/23/18 20:00 01/24/18 00:00 01/24/18 04:00 Temperature 97.9 F 97.7 F 97.5 F L Pulse Rate 100 H 100 H 101 H Respiratory Rate 18 18 14 Blood Pressure 123/61 129/67 140/74 Pulse Oximetry 95 96 99 Intake & Output 01/23/18 01/24/18 01/24/18 18:59 06:59 18:59 Intake Total 640 / 640 0 / 0 Output Total 1400 / 1400 75 / 75 Balance -760 / -760 -75 / -75 Weight 90.5 kg Intake: Oral 640 / 640 0 / 0 Output: Urine 200 / 200 75 / 75 Stool 0 / 0 Hemodialysis Amount 1200 / 1200 0 / 0 Other: # Voids 2 2 # Incontinent Voids 0 Date of Last Bowel Movement 01/19/18 01/19/18 # Bowel Movements 0 Narrative: GENERAL: No acute distress. HEENT: NC, AT. CARDIOVASCULAR: Irregularly irregular rhythm. RESPIRATORY: No accessory muscle use. Crackles at the bases. GASTROINTESTINAL: Abdomen soft, non-tender, nondistended. Hepatic and splenic margins not palpable. Decreased bowel sounds. MUSCULOSKELETAL: Extremities without clubbing, cyanosis, mild edema. No obvious deformities. NEUROLOGICAL: Awake and alert. No obvious cranial nerve deficits. Assessment and Plan - Assessment (1) ESRD (end stage renal disease) on dialysis Code(s): N18.6 - End stage renal disease; Z99.2 - Dependence on renal dialysis Status: Acute Plan: Continue HD MWF. Monitor electrolytes intermittently. Avoid IVF administration Protect left arm from procedures, has new AV access that is not mature. PermCath in place for HD use. Phosphorus level acceptable without binder therapy. High protein low K diet ordered. HD done yesterday and only 1.2 liters removed. Will get HD done again to remove more fluid. (2) Atrial fibrillation with RVR Code(s): I48.91 - Unspecified atrial fibrillation Status: Acute Plan: Rate is variable. On PO Amiodarone and metoprolol. Consider changing to labetalol or carvedilol as metoprolol is dialyzable. Midodrine is ordered TID. On Coumadin, INR therapeutic. On hold for cath on Friday. May require AV gilbert ablation with PPM insertion. (3) CHF (congestive heart failure) Code(s): I50.9 - Heart failure, unspecified Status: Acute Qualifiers: Heart failure type: unspecified Heart failure chronicity: unspecified Qualified Code(s): I50.9 - Heart failure, unspecified Plan: Monitor fluid status, fluid removal as tolerated EF 50-55% Cardiology following (4) Anemia in CKD (chronic kidney disease) Code(s): N18.9 - Chronic kidney disease, unspecified; D63.1 - Anemia in chronic kidney disease Status: Acute Plan: On Epogen with dialysis.
--- NOTE | 2018-01-24 12:47 | MB ---
cc: Ernestina Mackay MD DATE: 01/24/2018 HISTORY OF PRESENT ILLNESS: The patient is a 72-year-old male with a past medical history of hypertension, hyperlipidemia, CHF with EF of 55% from the echo on 12/10/2017, and end-stage renal disease on hemodialysis Friday, Friday, Friday. He was admitted to [facility] under the hospitalist service on 01/15/2018 for atrial fibrillation with a rapid ventricular response, chest pain and shortness of breath. A chest x-ray on admission showed mild interstitial prominence without focal airspace opacities. He also had a chest x-ray this morning, which showed no changes. Slight cardiomegaly seen with interstitial process, most likely related to pulmonary edema. The patient underwent hemodialysis yesterday with removal of 1.5 liters and is scheduled to undergo hemodialysis today. He is currently on 5 liters oxygen with saturation ranges between 95% and 99%. The patient is awake, looks comfortable. He denies any chest pain, GI symptoms or edema of lower extremities. He quit smoking 10 years ago and has a [id number] history of smoking. He denies any use of home oxygen. PAST MEDICAL HISTORY: Significant for CHF, diabetes mellitus, hypertension, and end-stage renal disease. PAST SURGICAL HISTORY: Fistula placement. SOCIAL HISTORY: Ex-smoker, quit 10 years ago with a [id number] history of smoking. Nondrinker. FAMILY HISTORY: Noncontributory to present illness. ALLERGIES: NO KNOWN DRUG ALLERGIES. CURRENT MEDICATIONS: Include: 1. Aspirin. 2. Amiodarone. 3. Lipitor. 4. Symbicort. 5. Lopressor. 6. Zosyn. 7. Vancomycin. 8. Coumadin. REVIEW OF SYSTEMS: As per HPI, rest of review of systems is unremarkable. PHYSICAL EXAMINATION: GENERAL: A 72-year-old male, lying in bed, in mild respiratory distress. VITAL SIGNS: Temperature 97.5, pulse of 100, respiratory rate of 18, blood pressure 129/67, saturation 96% on 5 liter oxygen. HEENT: Atraumatic, normocephalic. Pupils are equal, round, reactive to light and accommodation. Extraocular muscles intact. Conjunctivae pink. Nonicteric sclerae. Oral mucosa within normal. NECK: Supple. No JVD, adenopathy or thyromegaly. Trachea in the midline. CARDIOVASCULAR: Tachycardic. Normal S1, S2. No murmurs, rubs or gallops noted. PULMONARY: Bilateral equal air entry with coarse breath sounds. ABDOMEN: Soft, nontender. No distention. Positive bowel sounds. EXTREMITIES: No cyanosis or clubbing. Trace to +1 edema. NEUROLOGIC: No focal sensory deficit. LABORATORY DATA: Sodium 139, potassium 4.7, chloride 99, CO2 of 33, BUN 36, creatinine 6.67, glucose 110. WBC 6.9, hemoglobin 11, hematocrit 34, platelet count 193. RADIOGRAPHIC STUDIES: A chest x-ray from this morning showed an interstitial process, likely related to pulmonary edema, unchanged. IMPRESSION: 1. Acute hypoxemic respiratory insufficiency, likely secondary to congestive heart failure/fluid overload. 2. End-stage renal disease, on hemodialysis. 3. Congestive heart failure, diastolic dysfunction. 4. Atrial fibrillation. 5. Hypertension. 6. History of diabetes mellitus type 2. 7. Anemia. RECOMMENDATIONS: 1. Wean down oxygen as tolerated and maintain sats above 92%. 2. Bronchodilators. We will place on DuoNeb every 4 hours plus every 2 hours p.r.n. for shortness of breath. In addition, we will continue with Symbicort 2 puffs b.i.d. 3. BiPAP p.r.n. for respiratory distress. Continue with current antibiotics. He was started on vancomycin and Zosyn. Adjust doses per renal function. Monitor for signs of infections, which include fever and WBC. We will obtain a sputum culture with Gram stain. 4. His respiratory distress is likely secondary to volume overload/CHF. The patient underwent hemodialysis yesterday with removal of 1.5 liters and scheduled to undergo another hemodialysis session today. 5. Continue with aspirin, lopressor, and amiodarone as ordered. 6. Monitor renal function, I's and O's and avoid nephrotoxins. The patient is for hemodialysis today. 7. Gastrointestinal and deep venous thrombosis prophylaxis per primary team. The patient is currently on Coumadin with a therapeutic INR at 2.3 on 01/23/2018. 8. Further recommendations will be based on hospital course. Thank you for this consultation and allowing us to participate in this patient's care. MD GUS Jacobs/GUS , 12:09 PM , 12:22 PM
[2018-01-24] MEDS: Budesonide-Formoterol 160/4.5 MCG 6 GM Inhaler INH SCH ×2 (15:00→23:39)
[2018-01-24] MEDS: Piperacil/Tazo 2.25 GM Premix 50 ML IV.SIG SCH ×2 (15:00→22:01)
[2018-01-24] MEDS: Heparin 10,000 UNITS/10 ML Vial (for IV use) OTHER PRN (19:03)
[2018-01-24] MEDS: Sod Chloride 0.9% Inj 1,000 ML OTHER PRN (19:04)
[2018-01-25] MEDS: Metoprolol Tartrate 25 MG Tablet PO SCH ×4 (02:13→21:17)
[2018-01-25 05:50] LABS: Prothrombin Time 20.3 sec (9.8-11.6)
[2018-01-25] MEDS: Senna/Docusate Sodium 8.6/50 MG Tablet PO SCH ×2 (09:34→21:17)
[2018-01-25] MEDS: Amiodarone 200 MG Tablet PO SCH ×2 (09:34→21:17)
--- NOTE | 2018-01-25 09:34 | P.PNPL ---
Subjective Interval history: Patient is on 6L oxygen. Afebrile, s/p HD yesterday with removal 1.2L, looks comfortable. Physical Exam Vital signs: Vital Signs 01/24/18 10:00 01/24/18 11:00 01/24/18 12:00 Temperature 98.1 F Pulse Rate 94 H 94 H 94 H Respiratory Rate 19 15 22 Blood Pressure 127/67 120/58 L 113/66 Pulse Oximetry 95 94 L 85 L 01/24/18 12:52 01/24/18 13:00 01/24/18 14:00 Temperature Pulse Rate 98 H 96 H 99 H Respiratory Rate 18 19 17 Blood Pressure 107/61 112/70 Pulse Oximetry 89 L 83 L 01/24/18 15:00 01/24/18 15:21 01/24/18 16:00 Temperature 98.2 F Pulse Rate 96 H 97 H 100 H Respiratory Rate 24 18 12 Blood Pressure 96/60 L 111/63 Pulse Oximetry 72 L 89 L 01/24/18 17:00 01/24/18 17:14 01/24/18 17:15 Temperature Pulse Rate 101 H 98 H 96 H Respiratory Rate 23 19 20 Blood Pressure 137/73 135/64 119/69 Pulse Oximetry 70 L 83 L 79 L 01/24/18 17:16 01/24/18 17:17 01/24/18 17:18 Temperature Pulse Rate 97 H 98 H 98 H Respiratory Rate 21 26 H 15 Blood Pressure 123/65 108/62 124/63 Pulse Oximetry 73 L 79 L 77 L 01/24/18 17:30 01/24/18 17:45 01/24/18 18:00 Temperature Pulse Rate 94 H 97 H 94 H Respiratory Rate 14 15 16 Blood Pressure 124/70 130/71 123/61 Pulse Oximetry 83 L 69 L 91 L 01/24/18 18:15 01/24/18 18:30 01/24/18 18:45 Temperature Pulse Rate 92 H 89 96 H Respiratory Rate 21 20 18 Blood Pressure 110/59 L 106/58 L 108/59 L Pulse Oximetry 97 77 L 86 L 01/24/18 19:00 01/24/18 19:15 01/24/18 19:30 Temperature Pulse Rate 98 H 96 H 97 H Respiratory Rate 21 20 23 Blood Pressure 107/56 L 96/53 L 103/56 L Pulse Oximetry 83 L 82 L 81 L 01/24/18 19:45 01/24/18 20:00 01/24/18 21:00 Temperature 98.4 F Pulse Rate 104 H 106 H 101 H Respiratory Rate 28 H 30 H 16 Blood Pressure 123/62 131/64 121/59 L Pulse Oximetry 71 L 78 L 88 L 01/24/18 21:10 01/24/18 22:00 01/24/18 23:00 Temperature Pulse Rate 105 H 104 H 103 H Respiratory Rate 18 21 18 Blood Pressure 104/58 L 117/56 L Pulse Oximetry 87 L 85 L 01/25/18 00:00 01/25/18 01:00 01/25/18 01:13 Temperature 97.8 F Pulse Rate 98 H 100 H Respiratory Rate 21 14 Blood Pressure 115/72 105/59 L Pulse Oximetry 97 97 98 01/25/18 02:00 01/25/18 03:00 01/25/18 04:00 Temperature 98.7 F Pulse Rate 97 H 98 H 94 H Respiratory Rate 16 16 16 Blood Pressure 112/60 119/66 100/58 L Pulse Oximetry 91 L 94 L 95 01/25/18 04:07 01/25/18 05:00 01/25/18 06:00 Temperature Pulse Rate 93 H 103 H 104 H Respiratory Rate 20 13 17 Blood Pressure 100/58 L 109/61 Pulse Oximetry 92 L 92 L 01/25/18 07:50 Temperature Pulse Rate 101 H Respiratory Rate 19 Blood Pressure Pulse Oximetry 96 Intake & Output 01/24/18 01/25/18 01/25/18 18:59 06:59 18:59 Intake Total 1000 / 1000 290 / 290 Output Total 50 / 50 3270 / 3270 Balance 950 / 950 -2980 / -2980 Weight 91 kg Intake: IV 50 / 50 Zosyn 2.25 GM Premix 50 ML @ 50 / 50 100 mls/hr IV.SIG Q12H PEDRO Rx#: [id number] Oral 1000 / 1000 240 / 240 Output: Urine 50 / 50 270 / 270 Stool 0 / 0 Hemodialysis Amount 0 / 0 3000 / 3000 Other: # Voids 0 4 # Incontinent Voids 0 0 Date of Last Bowel Movement 01/24/18 01/24/18 # Bowel Movements 1 0 - Constitutional no acute distress - Routine HEENT Exam Head: Present: normocephalic, atraumatic Eye: Present: EOMI, PERRL, normal accommodation ENT: Present: mucous membranes moist - Routine Neck Exam Present: supple, full ROM, trachea midline - Routine Respiratory Exam Present: accessory muscle use, CTA bilaterally - Routine Cardiovascular Exam Present: S1, S2 - Routine Abdominal Exam Present: soft, normoactive bowel sounds - Routine Extremities Exam Present: full ROM, pulses intact - Routine Skin Exam Present: intact - Routine Neurological Exam Present: alert, oriented X3, CN II-XII intact - Routine Psychiatric Exam Present: normal affect Assessment and Plan - Plan 1. Acute hypoxemic respiratory insufficiency, 2. ESRD on hemodialysis. 3. CHF, diastolic dysfunction. 4. Atrial fibrillation. 5. Hypertension. 6. History of diabetes mellitus type 2. 7. Anemia. 8. Hx tobacco abuse, ? COPD Plan Wean down oxygen as tolerated and maintain sats >92%. Bronchodilators( DuoNeb, Symbicort) BiPAP p.r.n. for respiratory distress. Place on short course IV steroids- Solumederol 40mg IV Q6 x 4 doses, check CXR Continue abx (vancomycin and Zosyn) Monitor for signs of infections(fever and WBC)follow up on sputum culture HD per renal s/p HD yesterday with removal 1.2L. Continue with aspirin, Lopressor, and amiodarone GI and DVT prophylaxis on Coumadin- INR 2.0 today
[2018-01-25] MEDS: Budesonide-Formoterol 160/4.5 MCG 6 GM Inhaler INH SCH ×2 (09:42→21:17)
--- NOTE | 2018-01-25 10:45 | P.PNIM ---
Subjective Interval history: The patient said that he was feeling better. He said that his breathing was improved. He has had a bowel movement. He has been coughing up mucus with a little bit of blood in it. Discussed with nursing and pulmonology at the bedside. Physical Exam Vital signs: Vital Signs 01/24/18 11:00 01/24/18 12:00 01/24/18 12:52 Temperature 98.1 F Pulse Rate 94 H 94 H 98 H Respiratory Rate 15 22 18 Blood Pressure 120/58 L 113/66 Pulse Oximetry 94 L 85 L 01/24/18 13:00 01/24/18 14:00 01/24/18 15:00 Temperature Pulse Rate 96 H 99 H 96 H Respiratory Rate 19 17 24 Blood Pressure 107/61 112/70 96/60 L Pulse Oximetry 89 L 83 L 72 L 01/24/18 15:21 01/24/18 16:00 01/24/18 17:00 Temperature 98.2 F Pulse Rate 97 H 100 H 101 H Respiratory Rate 18 12 23 Blood Pressure 111/63 137/73 Pulse Oximetry 89 L 70 L 01/24/18 17:14 01/24/18 17:15 01/24/18 17:16 Temperature Pulse Rate 98 H 96 H 97 H Respiratory Rate 19 20 21 Blood Pressure 135/64 119/69 123/65 Pulse Oximetry 83 L 79 L 73 L 01/24/18 17:17 01/24/18 17:18 01/24/18 17:30 Temperature Pulse Rate 98 H 98 H 94 H Respiratory Rate 26 H 15 14 Blood Pressure 108/62 124/63 124/70 Pulse Oximetry 79 L 77 L 83 L 01/24/18 17:45 01/24/18 18:00 01/24/18 18:15 Temperature Pulse Rate 97 H 94 H 92 H Respiratory Rate 15 16 21 Blood Pressure 130/71 123/61 110/59 L Pulse Oximetry 69 L 91 L 97 01/24/18 18:30 01/24/18 18:45 01/24/18 19:00 Temperature Pulse Rate 89 96 H 98 H Respiratory Rate 20 18 21 Blood Pressure 106/58 L 108/59 L 107/56 L Pulse Oximetry 77 L 86 L 83 L 01/24/18 19:15 01/24/18 19:30 01/24/18 19:45 Temperature Pulse Rate 96 H 97 H 104 H Respiratory Rate 20 23 28 H Blood Pressure 96/53 L 103/56 L 123/62 Pulse Oximetry 82 L 81 L 71 L 01/24/18 20:00 01/24/18 21:00 01/24/18 21:10 Temperature 98.4 F Pulse Rate 106 H 101 H 105 H Respiratory Rate 30 H 16 18 Blood Pressure 131/64 121/59 L Pulse Oximetry 78 L 88 L 01/24/18 22:00 01/24/18 23:00 01/25/18 00:00 Temperature 97.8 F Pulse Rate 104 H 103 H 98 H Respiratory Rate 21 18 21 Blood Pressure 104/58 L 117/56 L 115/72 Pulse Oximetry 87 L 85 L 97 01/25/18 01:00 01/25/18 01:13 01/25/18 02:00 Temperature Pulse Rate 100 H 97 H Respiratory Rate 14 16 Blood Pressure 105/59 L 112/60 Pulse Oximetry 97 98 91 L 01/25/18 03:00 01/25/18 04:00 01/25/18 04:07 Temperature 98.7 F Pulse Rate 98 H 94 H 93 H Respiratory Rate 16 16 20 Blood Pressure 119/66 100/58 L Pulse Oximetry 94 L 95 01/25/18 05:00 01/25/18 06:00 01/25/18 07:50 Temperature Pulse Rate 103 H 104 H 101 H Respiratory Rate 13 17 19 Blood Pressure 100/58 L 109/61 Pulse Oximetry 92 L 92 L 96 Intake & Output 01/24/18 01/25/18 01/25/18 18:59 06:59 18:59 Intake Total 1000 / 1000 290 / 290 Output Total 50 / 50 3270 / 3270 Balance 950 / 950 -2980 / -2980 Weight 91 kg Intake: IV 50 / 50 Zosyn 2.25 GM Premix 50 ML @ 50 / 50 100 mls/hr IV.SIG Q12H PEDRO Rx#: [id number] Oral 1000 / 1000 240 / 240 Output: Urine 50 / 50 270 / 270 Stool 0 / 0 Hemodialysis Amount 0 / 0 3000 / 3000 Other: # Voids 0 4 # Incontinent Voids 0 0 Date of Last Bowel Movement 01/24/18 01/24/18 # Bowel Movements 1 0 Narrative: GENERAL: No acute distress. HEENT: NC, AT. CARDIOVASCULAR: Irregularly irregular rhythm. RESPIRATORY: No accessory muscle use. Crackles at the bases. GASTROINTESTINAL: Abdomen soft, non-tender, nondistended. Hepatic and splenic margins not palpable. Decreased bowel sounds. MUSCULOSKELETAL: Extremities without clubbing, cyanosis, mild edema. No obvious deformities. NEUROLOGICAL: Awake and alert. No obvious cranial nerve deficits. Results - Labs CBC & Chem 7: 01/24/18 04:04 01/24/18 04:04 Laboratory Results - last 24 hr 01/25/18 04:30 PT 20.3 H INR 2.0 Microbiology 01/24/18 13:40 Sputum - Expectorated Sputum Gram Stain - Final Assessment and Plan - Assessment (1) Atrial fibrillation with RVR Code(s): I48.91 - Unspecified atrial fibrillation Status: Acute (2) Chest pain Code(s): R07.9 - Chest pain, unspecified Status: Acute (3) ESRD (end stage renal disease) on dialysis Code(s): N18.6 - End stage renal disease; Z99.2 - Dependence on renal dialysis Status: Acute (4) CHF (congestive heart failure) Code(s): I50.9 - Heart failure, unspecified Status: Acute - Plan 72-year-old male admitted with new onset A. fib with RVR, rate initially very difficult to control due to issues of hypotension. Rate is now controlled. Patient to undergo heart catheterization for persistent chest pain. Afib w/ RVR New Onset. Patient was admitted about a month ago for SVT. Cardiogenic shock on 01/18: Became Hypotensive after receiving Bystolic. This was discontinued and patient was started on Midodrine. - Appreciate Cardiology input. Continue Amiodarone and Lopressor. - [id number] score about 3. Patient started on Coumadin per cardiology. Coumadin on hold for cath. Follow INR daily. Currently 2. CHF ?Diastolic. Echo 12/10/17 w/ EF 55%, BNP 1096 on admission. Suspect persistent tachyarrhythmia could have contributed to elevated BNP. CXR indicative of pulmonary congestion. - Monitor I/O. - continue cardiac regimen and follow-up with cardiology. - volume management with dialysis. Had extra dialysis session 01/24. Chest pain Improved. Cardiac enzymes negative. - Cardiology planning for heart catheterization when INR < 2. Anticipate tomorrow. ESRD On HD: M/W/F, s/p LUE AV Fistula 12/17/[address] Hutson, Permacath placed . - Appreciate nephrology following. Continue hemodialysis as scheduled. Acute respiratory failure The pt has been requiring 6L NC. CXR indicative of pulmonary congestion. Pulmonology consult appreciated. - continue albuterol nebs. - continue Symbicort. - volume management with dialysis. - pulmonology started IV Solumedrol. - added vancomycin and Zosyn 01/24. Constipation Seems resolved. - continue bowel regimen. - Suppository, enema if needed. DVT PPx: INR elevated. Switch to heparin gtt when under 2. (4) CHF (congestive heart failure) Qualifiers: Heart failure type: unspecified Heart failure chronicity: unspecified Qualified Code(s): I50.9 - Heart failure, unspecified
--- NOTE | 2018-01-25 10:52 | XR ---
EXAM DATE: 01/25/2018 10:47 AM EDT AGE/SEX: 72 years / Male INDICATIONS: Dyspnea. CLINICAL DATA: This is the patient's subsequent encounter. Patient reports that signs and symptoms h ave been present for 2 weeks and indicates a pain score of 0/10. MEDICAL/SURGICAL HISTORY: . Hypertension. Chronic obstructive pulmonary disease. Congestive hea rt failure. . Central line. COMPARISON: [facility], CHEST 1V SINGLE AP, 01/24/2018. . FINDINGS: Right IJ line is present with tip overlapping the expected region of the SVC. Slight cardiomegaly and interstitial process in the lungs have not changed most likely pulmonary edema. Increased opacity le ft lung base is probably technical, however slight consolidation in this location is difficult to exc lude. CONCLUSION: No significant change. Electronically signed by: Jocelyn Han MD 01/25/2018 10:50 AM EDT
--- NOTE | 2018-01-25 11:26 | P.PNNP ---
Subjective Interval history: Patient is alert, breathing is better, no chest pain. Physical Exam Vital signs: Vital Signs 01/24/18 12:00 01/24/18 12:52 01/24/18 13:00 Temperature 98.1 F Pulse Rate 94 H 98 H 96 H Respiratory Rate 22 18 19 Blood Pressure 113/66 107/61 Pulse Oximetry 85 L 89 L 01/24/18 14:00 01/24/18 15:00 01/24/18 15:21 Temperature Pulse Rate 99 H 96 H 97 H Respiratory Rate 17 24 18 Blood Pressure 112/70 96/60 L Pulse Oximetry 83 L 72 L 01/24/18 16:00 01/24/18 17:00 01/24/18 17:14 Temperature 98.2 F Pulse Rate 100 H 101 H 98 H Respiratory Rate 12 23 19 Blood Pressure 111/63 137/73 135/64 Pulse Oximetry 89 L 70 L 83 L 01/24/18 17:15 01/24/18 17:16 01/24/18 17:17 Temperature Pulse Rate 96 H 97 H 98 H Respiratory Rate 20 21 26 H Blood Pressure 119/69 123/65 108/62 Pulse Oximetry 79 L 73 L 79 L 01/24/18 17:18 01/24/18 17:30 01/24/18 17:45 Temperature Pulse Rate 98 H 94 H 97 H Respiratory Rate 15 14 15 Blood Pressure 124/63 124/70 130/71 Pulse Oximetry 77 L 83 L 69 L 01/24/18 18:00 01/24/18 18:15 01/24/18 18:30 Temperature Pulse Rate 94 H 92 H 89 Respiratory Rate 16 21 20 Blood Pressure 123/61 110/59 L 106/58 L Pulse Oximetry 91 L 97 77 L 01/24/18 18:45 01/24/18 19:00 01/24/18 19:15 Temperature Pulse Rate 96 H 98 H 96 H Respiratory Rate 18 21 20 Blood Pressure 108/59 L 107/56 L 96/53 L Pulse Oximetry 86 L 83 L 82 L 01/24/18 19:30 01/24/18 19:45 01/24/18 20:00 Temperature 98.4 F Pulse Rate 97 H 104 H 106 H Respiratory Rate 23 28 H 30 H Blood Pressure 103/56 L 123/62 131/64 Pulse Oximetry 81 L 71 L 78 L 01/24/18 21:00 01/24/18 21:10 01/24/18 22:00 Temperature Pulse Rate 101 H 105 H 104 H Respiratory Rate 16 18 21 Blood Pressure 121/59 L 104/58 L Pulse Oximetry 88 L 87 L 01/24/18 23:00 01/25/18 00:00 01/25/18 01:00 Temperature 97.8 F Pulse Rate 103 H 98 H 100 H Respiratory Rate 18 21 14 Blood Pressure 117/56 L 115/72 105/59 L Pulse Oximetry 85 L 97 97 01/25/18 01:13 01/25/18 02:00 01/25/18 03:00 Temperature Pulse Rate 97 H 98 H Respiratory Rate 16 16 Blood Pressure 112/60 119/66 Pulse Oximetry 98 91 L 94 L 01/25/18 04:00 01/25/18 04:07 01/25/18 05:00 Temperature 98.7 F Pulse Rate 94 H 93 H 103 H Respiratory Rate 16 20 13 Blood Pressure 100/58 L 100/58 L Pulse Oximetry 95 92 L 01/25/18 06:00 01/25/18 07:50 Temperature Pulse Rate 104 H 101 H Respiratory Rate 17 19 Blood Pressure 109/61 Pulse Oximetry 92 L 96 Intake & Output 01/24/18 01/25/18 01/25/18 18:59 06:59 18:59 Intake Total 1000 / 1000 290 / 290 Output Total 50 / 50 3270 / 3270 Balance 950 / 950 -2980 / -2980 Weight 91 kg Intake: IV 50 / 50 Zosyn 2.25 GM Premix 50 ML @ 50 / 50 100 mls/hr IV.SIG Q12H PEDRO Rx#: [id number] Oral 1000 / 1000 240 / 240 Output: Urine 50 / 50 270 / 270 Stool 0 / 0 Hemodialysis Amount 0 / 0 3000 / 3000 Other: # Voids 0 4 # Incontinent Voids 0 0 Date of Last Bowel Movement 01/24/18 01/24/18 # Bowel Movements 1 0 Narrative: GENERAL: No acute distress. HEENT: NC, AT. CARDIOVASCULAR: Irregularly irregular rhythm. RESPIRATORY: No accessory muscle use. Crackles at the bases. GASTROINTESTINAL: Abdomen soft, non-tender, nondistended. Hepatic and splenic margins not palpable. Decreased bowel sounds. MUSCULOSKELETAL: Extremities without clubbing, cyanosis, mild edema. No obvious deformities. NEUROLOGICAL: Awake and alert. No obvious cranial nerve deficits. Assessment and Plan - Assessment (1) ESRD (end stage renal disease) on dialysis Code(s): N18.6 - End stage renal disease; Z99.2 - Dependence on renal dialysis Status: Acute Plan: Continue HD MWF. Monitor electrolytes intermittently. Avoid IVF administration Protect left arm from procedures, has new AV access that is not mature. PermCath in place for HD use. Phosphorus level acceptable without binder therapy. High protein low K diet ordered. Patient has UF done yesterday and 3 liters removed. Continue HD MWF. Cardiac Cath as per Cardiology, INR is 2.0. (2) Atrial fibrillation with RVR Code(s): I48.91 - Unspecified atrial fibrillation Status: Acute Plan: Rate is variable. On PO Amiodarone and metoprolol. Consider changing to labetalol or carvedilol as metoprolol is dialyzable. Midodrine is ordered TID. On Coumadin, INR therapeutic. On hold for cath on Friday. May require AV gilbert ablation with PPM insertion. (3) CHF (congestive heart failure) Code(s): I50.9 - Heart failure, unspecified Status: Acute Qualifiers: Heart failure type: unspecified Heart failure chronicity: unspecified Qualified Code(s): I50.9 - Heart failure, unspecified Plan: Monitor fluid status, fluid removal as tolerated EF 50-55% Cardiology following (4) Anemia in CKD (chronic kidney disease) Code(s): N18.9 - Chronic kidney disease, unspecified; D63.1 - Anemia in chronic kidney disease Status: Acute Plan: On Epogen with dialysis.
[2018-01-25] MEDS: MethylPREDNISolone Sod Succinate Inj 40 MG/ML Vial IV.PUSH SCH ×3 (14:21→21:18)
[2018-01-25] MEDS: Piperacil/Tazo 2.25 GM Premix 50 ML IV.SIG SCH ×2 (15:41→23:37)
[2018-01-26] MEDS: Metoprolol Tartrate 25 MG Tablet PO SCH ×4 (01:50→21:57)
[2018-01-26] MEDS: MethylPREDNISolone Sod Succinate Inj 40 MG/ML Vial IV.PUSH SCH (06:09)
[2018-01-26 07:51] LABS: Hematocrit 33.1 % (39.0-51.0); Hemoglobin 10.5 gm/dL (13.0-17.0); Mean Corpuscular HGB Conc 31.8 % (32.0-36.0); Mean Corpuscular Hemoglobin 27.5 pg (27.0-34.0); Mean Corpuscular Volume 86.3 fL (80.0-100.0); Mean Platelet Volume 8.9 fL (7.0-11.0); Platelet Count 186 th/mm3 (150-450); Red Blood Count 3.83 mil/mm3 (4.50-5.90); Red Cell Distribution Width 16.1 % (11.6-17.2); White Blood Count 3.8 th/mm3 (4.0-11.0)
[2018-01-26 08:03] LABS: INR 1.7 Ratio
[2018-01-26 08:33] LABS: Calcium 8.8 mg/dL (8.5-10.1); Carbon Dioxide 30.5 meq/L (21.0-32.0); Potassium 4.9 meq/L (3.5-5.1); Vancomycin,Random 13.8 Comment
[2018-01-26] MEDS: Heparin 10,000 UNITS/10 ML Vial (for IV use) OTHER PRN (08:42)
--- NOTE | 2018-01-26 10:09 | P.PNIM ---
Subjective Interval history: The patient was undergoing dialysis. He stated his chest pain was better but still there at times. He wanted something to drink. He was awaiting cardiac catheterization later. Discussed with nursing. Physical Exam Vital signs: Vital Signs 01/25/18 10:07 01/25/18 11:00 01/25/18 11:29 Temperature Pulse Rate 105 H 102 H 101 H Respiratory Rate 20 15 23 Blood Pressure 129/73 103/54 L Pulse Oximetry 86 L 85 L 01/25/18 12:00 01/25/18 13:00 01/25/18 14:00 Temperature 97.9 F Pulse Rate 104 H 108 H 103 H Respiratory Rate 14 23 18 Blood Pressure 124/65 124/65 111/59 L Pulse Oximetry 89 L 94 L 93 L 01/25/18 15:38 01/25/18 15:54 01/25/18 16:00 Temperature 98.3 F Pulse Rate 100 H 101 H 103 H Respiratory Rate 18 23 26 H Blood Pressure 128/62 124/69 Pulse Oximetry 94 L 96 01/25/18 17:00 01/25/18 18:00 01/25/18 18:01 Temperature Pulse Rate 95 H 88 88 Respiratory Rate 18 24 25 H Blood Pressure 121/69 112/74 Pulse Oximetry 91 L 88 L 90 L 01/25/18 19:00 01/25/18 20:00 01/25/18 20:28 Temperature 98.4 F Pulse Rate 96 H 82 77 Respiratory Rate 23 18 19 Blood Pressure 131/63 115/65 Pulse Oximetry 88 L 86 L 97 01/25/18 21:00 01/25/18 22:00 01/25/18 23:00 Temperature Pulse Rate 87 87 85 Respiratory Rate 18 23 19 Blood Pressure 121/65 117/58 L 128/69 Pulse Oximetry 89 L 93 L 94 L 01/26/18 00:00 01/26/18 00:41 01/26/18 04:00 Temperature 98.1 F Pulse Rate 88 96 H 92 H Respiratory Rate 19 20 12 Blood Pressure 129/64 147/69 H Pulse Oximetry 92 L 93 L 93 L 01/26/18 04:53 01/26/18 07:36 01/26/18 08:00 Temperature Pulse Rate 93 H 81 Respiratory Rate 20 20 Blood Pressure Pulse Oximetry 92 L Intake & Output 01/25/18 01/26/18 01/26/18 18:59 06:59 18:59 Intake Total 610 / 610 230 / 230 Output Total 0 / 0 100 / 100 Balance 610 / 610 130 / 130 Weight 91 kg Intake: IV 50 / 50 50 / 50 Zosyn 2.25 GM Premix 50 ML @ 50 / 50 50 / 50 100 mls/hr IV.SIG Q12H PEDRO Rx#: [id number] Oral 560 / 560 180 / 180 Output: Urine 0 / 0 100 / 100 Stool 0 / 0 0 / 0 Hemodialysis Amount 0 / 0 Other: # Voids 1 # Incontinent Voids 0 Date of Last Bowel Movement 01/24/18 01/24/18 # Bowel Movements 0 0 Narrative: GENERAL: No acute distress. HEENT: NC, AT. CARDIOVASCULAR: Irregularly irregular rhythm. RESPIRATORY: No accessory muscle use. Crackles at the bases. GASTROINTESTINAL: Abdomen soft, non-tender, nondistended. Hepatic and splenic margins not palpable. Decreased bowel sounds. MUSCULOSKELETAL: Extremities without clubbing, cyanosis, mild edema. No obvious deformities. NEUROLOGICAL: Awake and alert. No obvious cranial nerve deficits. Results - Labs CBC & Chem 7: 01/26/18 07:00 01/26/18 07:00 Laboratory Results - last 24 hr 01/26/18 01/26/18 01/26/18 07:00 07:00 07:00 WBC 3.8 L RBC 3.83 L Hgb 10.5 L Hct 33.1 L MCV 86.3 MCH 27.5 MCHC 31.8 L RDW 16.1 Plt Count 186 MPV 8.9 PT 17.0 H INR 1.7 Sodium 135 L Potassium 4.9 Chloride 96 L Carbon Dioxide 30.5 Anion Gap 9 BUN 52 H Creatinine 8.26 H Estimated GFR 6 L Random Glucose 232 H Calcium 8.8 Random Vancomycin 13.8 Microbiology 01/24/18 13:40 Sputum - Expectorated Sputum Gram Stain - Final 01/24/18 13:40 Sputum - Expectorated Sputum Sputum Culture - Preliminary Heavy growth normal respiratory marielos at 24 hours - Imaging Impressions Chest X-Ray 01/25/18 09:25 CONCLUSION: No significant change. Assessment and Plan - Assessment (1) Atrial fibrillation with RVR Code(s): I48.91 - Unspecified atrial fibrillation Status: Acute (2) Chest pain Code(s): R07.9 - Chest pain, unspecified Status: Acute (3) ESRD (end stage renal disease) on dialysis Code(s): N18.6 - End stage renal disease; Z99.2 - Dependence on renal dialysis Status: Acute (4) CHF (congestive heart failure) Code(s): I50.9 - Heart failure, unspecified Status: Acute - Plan 72-year-old male admitted with new onset A. fib with RVR, rate initially very difficult to control due to issues of hypotension. Rate is now controlled. Patient to undergo heart catheterization for persistent chest pain. Afib w/ RVR New Onset. Patient was admitted about a month ago for SVT. Cardiogenic shock on 01/18: Became Hypotensive after receiving Bystolic. This was discontinued and patient was started on Midodrine. - Appreciate Cardiology input. Continue Amiodarone and Lopressor. - [id number] score about 3. Patient started on Coumadin per cardiology. Coumadin on hold for cath. Follow INR daily. On heparin gtt. CHF ?Diastolic. Echo 12/10/17 w/ EF 55%, BNP 1096 on admission. Suspect persistent tachyarrhythmia could have contributed to elevated BNP. CXR indicative of pulmonary congestion. - Monitor I/O. - continue cardiac regimen and follow-up with cardiology. - volume management with dialysis. Chest pain Improved. Cardiac enzymes negative. - Cardiology planning for heart catheterization when INR < 2. Anticipate later today. ESRD On HD: M/W/F, s/p LUE AV Fistula 12/17/[address] Hutson, Permacath placed . - Appreciate nephrology following. Continue hemodialysis as scheduled. Acute respiratory failure The pt has been requiring 6L NC. CXR indicative of pulmonary congestion. Pulmonology consult appreciated. - continue albuterol nebs. - continue Symbicort. - volume management with dialysis. - pulmonology started IV Solumedrol. - added vancomycin and Zosyn 01/24. Constipation Seems resolved. - continue bowel regimen. - Suppository, enema if needed. DVT PPx: Heparin gtt (4) CHF (congestive heart failure) Qualifiers: Heart failure type: unspecified Heart failure chronicity: unspecified Qualified Code(s): I50.9 - Heart failure, unspecified
[2018-01-26] MEDS ORDERED: Heparin Drip 25,000 UNIT/250 ML BAG IV.CONT PRN (10:15)
[2018-01-26] MEDS: Amiodarone 200 MG Tablet PO SCH ×2 (10:30→21:57)
[2018-01-26] MEDS: Budesonide-Formoterol 160/4.5 MCG 6 GM Inhaler INH SCH ×2 (10:31→21:56)
[2018-01-26] MEDS: Senna/Docusate Sodium 8.6/50 MG Tablet PO SCH ×2 (10:31→21:57)
--- NOTE | 2018-01-26 11:26 | P.PNNP ---
Subjective Interval history: Resting quietly. NPO for cardiac catheterization this afternoon. Seen during bedside HD. Physical Exam Vital signs: Vital Signs 01/25/18 11:29 01/25/18 12:00 01/25/18 13:00 Temperature 97.9 F Pulse Rate 101 H 104 H 108 H Respiratory Rate 23 14 23 Blood Pressure 124/65 124/65 Pulse Oximetry 89 L 94 L 01/25/18 14:00 01/25/18 15:38 01/25/18 15:54 Temperature Pulse Rate 103 H 100 H 101 H Respiratory Rate 18 18 23 Blood Pressure 111/59 L 128/62 Pulse Oximetry 93 L 94 L 01/25/18 16:00 01/25/18 17:00 01/25/18 18:00 Temperature 98.3 F Pulse Rate 103 H 95 H 88 Respiratory Rate 26 H 18 24 Blood Pressure 124/69 121/69 Pulse Oximetry 96 91 L 88 L 01/25/18 18:01 01/25/18 19:00 01/25/18 20:00 Temperature 98.4 F Pulse Rate 88 96 H 82 Respiratory Rate 25 H 23 18 Blood Pressure 112/74 131/63 115/65 Pulse Oximetry 90 L 88 L 86 L 01/25/18 20:28 01/25/18 21:00 01/25/18 22:00 Temperature Pulse Rate 77 87 87 Respiratory Rate 19 18 23 Blood Pressure 121/65 117/58 L Pulse Oximetry 97 89 L 93 L 01/25/18 23:00 01/26/18 00:00 01/26/18 00:41 Temperature 98.1 F Pulse Rate 85 88 96 H Respiratory Rate 19 19 20 Blood Pressure 128/69 129/64 Pulse Oximetry 94 L 92 L 93 L 01/26/18 04:00 01/26/18 04:53 01/26/18 07:36 Temperature Pulse Rate 92 H 93 H 81 Respiratory Rate 12 20 20 Blood Pressure 147/69 H Pulse Oximetry 93 L 01/26/18 08:00 01/26/18 09:00 01/26/18 11:16 Temperature 97.7 F Pulse Rate 86 86 108 H Respiratory Rate 16 20 Blood Pressure 145/72 H Pulse Oximetry 94 L Intake & Output 01/25/18 01/26/18 01/26/18 18:59 06:59 18:59 Intake Total 610 / 610 230 / 230 Output Total 0 / 0 100 / 100 2500 / 2500 Balance 610 / 610 130 / 130 -2500 / -2500 Weight 91 kg Intake: IV 50 / 50 50 / 50 Zosyn 2.25 GM Premix 50 ML @ 50 / 50 50 / 50 100 mls/hr IV.SIG Q12H PEDRO Rx#: [id number] Oral 560 / 560 180 / 180 Output: Urine 0 / 0 100 / 100 Stool 0 / 0 0 / 0 Hemodialysis Amount 0 / 0 2500 / 2500 Other: # Voids 1 # Incontinent Voids 0 Date of Last Bowel Movement 01/24/18 01/24/18 01/24/18 # Bowel Movements 0 0 - Constitutional no acute distress, average body habitus, chronically ill appearing, cooperative - Routine HEENT Exam Head: Present: normocephalic - Routine Neck Exam Present: supple, full ROM. Absent: JVD - Routine Respiratory Exam Present: CTA bilaterally. Absent: accessory muscle use - Routine Cardiovascular Exam Present: S1, S2, irregular rhythm, irregularly irregular - Routine Abdominal Exam Present: soft, normoactive bowel sounds - Routine Extremities Exam Present: full ROM, AV fistula. Absent: edema - Routine Skin Exam Present: intact, warm - Routine Neurological Exam Present: alert, oriented X3, CN II-XII intact - Detailed Neurological Exam: Coma Scale Eye Opening: Spontaneous Verbal Response: Oriented Motor Response: Obey commands Bartlett Coma Scale Total: 15 - Routine Psychiatric Exam Present: normal affect, normal thought process Assessment and Plan - Assessment (1) ESRD (end stage renal disease) on dialysis Code(s): N18.6 - End stage renal disease; Z99.2 - Dependence on renal dialysis Status: Acute Plan: Continue HD MWF. Seen during dialysis today on a 2K, 350 BFR, goal 2.5 Liter. He required HD Friday for fluid removal as he was short of breath. Monitor electrolytes intermittently. Avoid IVF administration Protect left arm from procedures, has new AV access that is not mature. PermCath in place for HD use. Phosphorus level acceptable without binder therapy. High protein low K diet ordered. Supplements added. (2) Atrial fibrillation with RVR Code(s): I48.91 - Unspecified atrial fibrillation Status: Acute Plan: Rate is variable. On PO Amiodarone and metoprolol. Consider changing to labetalol or carvedilol as metoprolol is dialyzable. Midodrine is ordered TID. On Coumadin, which is being held for cath today. May require AV gilbert ablation with PPM insertion. (3) CHF (congestive heart failure) Code(s): I50.9 - Heart failure, unspecified Status: Acute Qualifiers: Heart failure type: unspecified Heart failure chronicity: unspecified Qualified Code(s): I50.9 - Heart failure, unspecified Plan: Monitor fluid status, fluid removal as tolerated EF 50-55% Cardiology following (4) Anemia in CKD (chronic kidney disease) Code(s): N18.9 - Chronic kidney disease, unspecified; D63.1 - Anemia in chronic kidney disease Status: Acute Plan: On Epogen with dialysis.
[2018-01-26] MEDS: Piperacil/Tazo 2.25 GM Premix 50 ML IV.SIG SCH ×2 (11:43→22:02)
[2018-01-26] MEDS ORDERED: Heparin/NS PF Inj 1,000 ML ONE (12:24)
[2018-01-26] MEDS ORDERED: fentaNYL Citrate Inj 100 MCG/2 ML Ampul ONE (12:38)
[2018-01-26] MEDS ORDERED: Heparin 10,000 UNITS/10 ML Vial (for IV use) ONE (12:51)
--- NOTE | 2018-01-26 13:21 | CATHPROC ---
[facility] HIS Report Study Information Study Number Admission Scheduled Start Study Start [id number] Jan 15 2018 8:50PM 01/25/2018 Jan 26 2018 11:54AM [place] [facility] Cath Endovascular Study Admit Source Facility Department Emergency department [facility] - Human Resources Assistant Manager Physician and Clinical Staff Initial Leroy Wood Teacher Of The Deaf/Hard Of HearingNiraj Brown,KAMALJIT Teacher Of The Deaf/Hard Of HearingClaire Manjarrez RN Other cathlab, cathlab Recorder Yahir Singletary RCIS(BS) Scrub Teodora Pires RT(R) (BS) Procedures Performed Procedure Location (Site) Vessel Name Coronary Angiograms LCA Left Coronary Coronary Angiograms RCA Right Coronary L Heart Cath LV Gram-hand inj. LV LV Ventricle Wire insertion Fem Art (right) Femoral Art Equipment Time Actuarial Director Description Size Mfg Part Number Used/Scraped TRANSDUCER, TRUWAVE [id number] 11:55 PEARSON RUSS * Used W/STOCKCOCK *[id number] [id number] *[id number] *[id number] *[id number] 11:55 Q2ebanking BLANKET,WARM AIR CCL * Used *[id number] 11:55 Q2ebanking PACK, CCL CUSTOM * Used *[id number] 11:55 sli.do PACER PEN, SKIN DUAL W/ RULER * Used *[id number] 12:52 MEDTRONIC/AVE EBU 5.0 Z2 GUIDE CATHETER FR 6 Used *[id number] 12:50 Sanako MEDICAL SHEATH, FR6.5 PRELUDE 11CM FR 6.5 038ACT Used *[id number] 11:55 [employer] MEDICAL WIRE, 3MMJ .035 180CM 180CM Used *[id number] 11:55 NAMIC MANIFOLD, 4 PORT * Used *[id number] 11:55 NYCOMED OMNIPAQUE, 350 MG, 150ML 150ML [id number] Used [id number] 11:55 TERUMO MEDICAL SHEATH, FR4 TERUMO (10CM) FR 4 Used *[id number] 12:52 [employer] PRIME WIRE, VERRATA 185CM 185CM Used *[id number] History: Current Medications Medication Dosage/Unit Route Frequency Last Date/Time Taken ASA Statins (any) 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00 4.00-11.00 150.00-450.00 10.5 33.1 3.8 186 Glucose (mg/dl) BUN (mg/dl) Creatinine (mg/dl) BUN:Creatinine (1:x) 74.00-106.00 7.00-18.00 0.50-1.30 10.00-20.00 232 52 8.3 6.3 Na (meq/l) K (meq/l) 136.00-145.00 3.50-5.10 135 4.9 INR (PTT:PT) 0.90-1.10 1.7 CPK-MB (ng/ML) 0.50-3.60 Not Drawn Medication Medication Total Dose (Bolus/Oral) Medication Total Dosage/Unit 1% XYLOCAINE 20 mL FENTANYL 25 mcg HEPARIN 6400 units VERSED 1 mg Medications (Bolus/Oral) Medication Time Given Dosage/Unit Administered By Reason VERSED 01/26/2018 12:39:37 PM 1 mg Niraj Gaines 1 mg VERSED given in lab by Niraj Gaines RN in Right Wrist via Peripheral IV. Ordered by Leroy Waters. FENTANYL 01/26/2018 12:39:46 PM 25 mcg Niraj Gaines 25 mcg FENTANYL given in lab by Niraj Gaines RN in Right Wrist via Peripheral IV. Ordered by Leroy Gonzalez. 1% XYLOCAINE 01/26/2018 12:39:53 PM 20 mL Leroy Waters 20 mL 1% XYLOCAINE given in lab by Leroy Waters in Right Groin via Subcutaneous. HEPARIN 01/26/2018 12:52:22 PM 6400 units Niraj Gaines 6400 units HEPARIN given in lab by Niraj Gaines RN in Right Wrist via Peripheral IV. Ordered by Leroy Romero. Medication (Drip) Medication Time Given Dosage/Unit Concentration/Unit Diluent (ml) Solution ADENOSINE DRIP 01/26/2018 1:06:45 PM 25.641 mcg/kg/min 90 mg 90 NaCl .9 25.641 mcg/kg/min ADENOSINE DRIP given in lab by Claire Manriquez RN in Right Wrist via Peripheral IV . Pump/Drip Flow = 140 ml/hr using NaCl .9 with a concentration of 90 mg in 90 ml. Ordered by Leroy Waters. IV Solutions 01/26/2018 12:19:58 PM 0 mL (IV) 500 NaCl .9 Patient arrived on IV Solutions in Right Wrist via Peripheral IV. Pump/Drip Flow = 20 ml/hr using NaC l .9. Ordered by Leroy Waters. Initial Case Assessment Cardiovascular HR Rhythm NIBP Chest Pain 110 afib 129/85 0 Edema Present Skin color Skin None Normal Warm Dry Circulatory - Right Pulses Dorsalis Pedis Femoral 2 3 Scale (0,1,2,3,4,d) Circulatory - Left Pulses Dorsalis Pedis Femoral 2 3 Scale (0,1,2,3,4,d) Neurological State Oriented to time-place- Alert Moves all extremities person Respiration - General Respiration Rate SpO2 (%) (B/min) 15 97 Final Case Assessment Cardiovascular HR Rhythm NIBP Chest Pain 100 afib 125/79 0 Edema Present Skin color Skin None Normal Warm Dry Circulatory - Right Pulses Dorsalis Pedis Femoral 2 3 Scale (0,1,2,3,4,d) Circulatory - Left Pulses Dorsalis Pedis Femoral 2 3 Scale (0,1,2,3,4,d) Neurological State Oriented to time-place- Alert Moves all extremities person Respiration - General Respiration Rate SpO2 (%) (B/min) 15 97 Chronological Log Time Study Chronological Log 12:12:58 Patient arrived via Bed. 12:12:59 Patient Name, D.O.B, / Armband Verified By R.N. 12:13:00 Pre-op and post- op instructions given; patient acknowledges understanding of instructions. 12:13:03 Consent signed by the physician and the patient and verified by the Human Resources Assistant Manager staff. 12:13:05 Presedation assessment performed by Human Resources Assistant Manager RN. 12:13:09 Patient has been NPO for More than 6Hrs. 12:13:10 Skin Breakdown-none per patient 12:13:11 Patient Warmer Placed on the Table. 12:13:11 Jonna Prominences Protected 12:13:12 A # 20 IV was noted in the Wrist (right). Grade = 0 Patient arrived on IV Solutions in Right Wrist via Peripheral IV. Pump/Drip Flow = 20 ml/hr usi ng NaCl .9. Ordered by 12:19:58 Leroy Waters. 12:20:20 History and physical on the chart or being dictated. Assessment: Initial Case, JT=766 BPM, Rhythm=afib, SKFR=797/85 mmhg, Chest Pain=0, Edema=None, Color=Normal, Skin = Warm, Dry Right Pulses: Matteo Ped=2, Femoral=3 12:20:22 Left Pulses: Matteo Ped=2, Femoral=3 Neurological: State=Alert, Ox3, BEJARANO Respiration: Resp=15 B/min, SpO2=97 % Vitals capture started with the following parameters, Patient=Adult, Interval=5 min, Initial Pr lgrkun=478 mmHg, 12:22:15 Deflation Rate=5 mmHg, Cuff placed on Left Arm 12:22:42 Reference ECG taken 12:22:45 DF=998 bpm, RGVR=821/85 mmhg, SpO2=95 %, Resp=8 B/min, Pain=0, Cody=10, Dominguez=2 12:23:35 Bilateral groins prepped with 2% chlorhexidine, and draped after a 3 minute waiting time. 12:26:26 MD paged 12:26:48 MD responded 12:27:50 PU=392 bpm, LBUW=422/78 mmhg, SpO2=84.0 %, Resp=13 B/min, Pain=0, Cody=10, Dominguez=2 12:32:49 IE=440 bpm, VPPC=896/85 mmhg, SpO2=88.0 %, Resp=17 B/min, Pain=0, Cody=10, Dominguez=2 12:35:20 MD arrived. 12:36:25 Contrast Scanned 12:36:26 Immediate Presedation assesment performed by physician. 12:37:48 GX=688 bpm, EILY=074/80 mmhg, SpO2=90.0 %, Resp=16 B/min, Pain=0, Cody=10, Dominguez=2 12:39:37 1 mg VERSED given in lab by Niraj Gaines, RN in Right Wrist via Peripheral IV. Ordered by Leroy Waters. 12:39:46 25 mcg FENTANYL given in lab by Niraj Gaines, KAMALJIT in Right Wrist via Peripheral IV. Ordere d by Leroy Waters. 12:39:52 Case Start 12:39:53 20 mL 1% XYLOCAINE given in lab by Leroy Waters in Right Groin via Subcutaneous. 12:40:30 Pressure channel 1 zeroed. 12:40:40 Access site was Right Femoral Artery. 12:40:45 A SHEATH, FR4 TERUMO (10CM) FR 4 was advanced into the Fem Art (right) using the Percutaneo us technique. A JR 4.0 INFINITI CATHETER FR 4 was advanced over a wire. OMNIPAQUE, 350 MG, 150ML 150ML was us ed for 12:40:49 injections. Recorded Pressure: LV, IX=056, Condition=Condition 1 12:42:28 (Left Ventricle) LV 130/-3/17 12:42:49 HR=93 bpm, SBIG=188/82 mmhg, SpO2=86.0 %, Resp=12 B/min, Pain=0, Cody=10, Dominguez=2 12:42:49 The LV was manually injected with 10 cc's and visualized. OMNIPAQUE, 350 MG, 150ML 150ML us ed. Recorded Pressure: LV, Ao, UY=606, Condition=Condition 1 12:42:56 (Left Ventricle) LV 129/3/19, (Aorta) Ao 125/67/94 12:43:14 The RCA was injected and visualized at various angles. OMNIPAQUE, 350 MG, 150ML 150ML used . Recorded Pressure: Ao, HR=97, Condition=Condition 1 12:43:24 (Aorta) Ao 118/64/89 12:43:42 Catheter was removed A JL 6.0 INFINITI CATHETER FR 4 was advanced over a wire. OMNIPAQUE, 350 MG, 150ML 150ML was us ed for 12:43:43 injections. 12:45:55 The LCA was injected and visualized at various angles. OMNIPAQUE, 350 MG, 150ML 150ML used . 12:47:50 CE=031 bpm, DGKY=441/79 mmhg, SpO2=81.0 %, Resp=17 B/min, Pain=0, Cody=10, Dominguez=2 12:48:12 Catheter was removed A SHEATH, FR6.5 PRELUDE 11CM FR 6.5 was exchanged in the Fem Art (right). This was necessary in order to 12:49:49 accomodate a larger catheter. 12:52:22 6400 units HEPARIN given in lab by Niraj Gaines RN in Right Wrist via Peripheral IV. Ord ered by Leroy Waters. 12:52:47 UT=589 bpm, CQIZ=484/81 mmhg, SpO2=79.0 %, Resp=16 B/min, Pain=0, Cody=10, Dominguez=2 12:54:51 Pressure channel 1 zeroed. A EBU 5.0 Z2 GUIDE CATHETER FR 6 was advanced over a wire. OMNIPAQUE, 350 MG, 150ML 150ML was u sed for 12:55:50 injections. 12:57:50 GL=207 bpm, EGYB=001/72 mmhg, SpO2=88 %, Resp=14 B/min, Pain=0, Cody=10, Dominguez=2 12:58:02 Activated Clotting Time Drawn 12:58:09 A PRIME WIRE, VERRATA 185CM 185CM was inserted via Fem Art (right). 13:00:23 Flow Wire was was placed in the OM1 Mid. The FFR measures ~FFR~ percent. The IFR measures 1.01 Percent. 13:02:51 IV=514 bpm, LRDJ=976/73 mmhg, SpO2=81.0 %, Resp=9 B/min, Pain=0, Cody=10, Dominguez=2 13:03:06 ACT (Normal Range 90-180) = 252 13:03:17 Flow Wire was was placed in the OM1 Mid. The FFR measures ~FFR~ percent. The IFR measures 0.98 Percent. 25.641 mcg/kg/min ADENOSINE DRIP given in lab by Claire Manriquez RN in Right Wrist via Periph eral IV. Pump/Drip 13:06:45 Flow = 140 ml/hr using NaCl .9 with a concentration of 90 mg in 90 ml. Ordered by Joe Waters. 13:07:17 Flow Wire was was placed in the OM1 Mid. The FFR measures 97 percent. The IFR measures ~IF R~ Percent. 13:07:50 VO=422 bpm, XHRM=163/76 mmhg, SpO2=82.0 %, Resp=14 B/min, Pain=0, Cody=10, Dominguez=2 13:10:18 The wire was removed. 13:10:24 Catheter was removed 13:10:29 Case End (Physician broke scrub) Assessment: Final Case, HC=393 BPM, Rhythm=afib, DJST=668/79 mmhg, Chest Pain=0, Edema=None, Color=Normal, Skin = Warm, Dry Right Pulses: Matteo Ped=2, Femoral=3 13:10:41 Left Pulses: Matteo Ped=2, Femoral=3 Neurological: State=Alert, Ox3, BEJARANO Respiration: Resp=15 B/min, SpO2=97 % 13:10:59 In the Fem Art (right) the SHEATH, FR6.5 PRELUDE 11CM FR 6.[address] by Leroy Gonzalez. 13:11:03 Sterile dressing applied to site 13:11:04 No case complications noted. 13:11:04 Cine recording checked. 13:11:06 Bedside Report will be given. 13:11:11 A Left Heart Cath was performed. 13:12:51 XY=194 bpm, WTOF=609/71 mmhg, SpO2=82.0 %, Resp=14 B/min, Pain=0, Cody=10, Dominguez=2 13:17:52 KI=786 bpm, CYHR=026/74 mmhg, SpO2=76.0 %, Resp=11 B/min, Pain=0, Cody=10, Dominguez=2 13:20:47 Vitals capture stopped. 13:20:52 [facility] - Contrast Media Used In Study Contrast Total Opened (mL) Total Used (mL) Total Wasted (mL) Omnipaque 135 135 0 End Study - Maximum Contrast Load Max Contrast Load (mL) 54.8 End Study - Radiation Exposure Fluoro Time (minutes) 4.2 End Study - Patient Disposition Complications Transferred To Interventional Outcome No Critical Care Bed No attempt made
[2018-01-26] MEDS ORDERED: Misc Info for Pharmacy OTHER STA (13:44)
[2018-01-26] MEDS ORDERED: Adenosine Stress Test 90 MG/30 ML Vial IV.SIG ONE (13:54)
--- NOTE | 2018-01-26 13:55 | MA ---
cc: Leroy Waters MD DATE: 01/26/2018 PROCEDURE: Left heart catheterization, left ventriculography and coronary angiography, FFR of the first obtuse marginal vessel. INDICATION: Unstable angina and coronary artery disease, [place] [employer] class IV angina, endstage renal failure, A-fib. METHOD: The patient was brought to the cardiac catheterization laboratory, prepped and draped in the usual sterile fashion. 10 mL of 1% lidocaine was used to locally anesthetic the right common femoral artery. A 4-[place] sheath was placed in the right common femoral artery. A 4-[place] JR4 and JL6 catheters were used to perform left and right coronary angiography and left ventricle ventriculography. FINDINGS: The LV pressure is 130/5-10. Ejection fraction 60%. Right coronary artery is large and dominant, reference vessel diameter in the proximal segment is at least 5 mm. There is subtle tapering in the mid-segment to 20%. The distal right coronary artery reference vessel diameter is at least 4 mm. Right PDA and CARLOTTA have no significant disease angiographically. In the right proximal mid right posterolateral artery, there is an area of tortuosity where the vessel actually appears to be kinked at about an angulation of over 150 degrees. I do not think there is any focal stenosis there, but I cannot quite rule out it out. It is very distal from the os of the right coronary artery. Left main coronary artery has a distal 20% stenosis. Left circumflex vessel has no significant disease angiographically. First obtuse marginal vessel is a large vessel, reference vessel diameter of 4 mm. It has approximately 60% stenosis. LAD has an ostial 20% stenosis, has a 90 degree takeoff off the left main. The mid-segment has a 50-60% stenosis; reference vessel diameter is about 4.5 mm. There is a large ramus intermedius vessel, which has no significant disease angiographically. INTERVENTION: The 4-[place] sheath was exchanged for a 6-[place] sheath. 6-[place] EBUS 5.0 was placed, 70 units/kg of heparin was given with an ACT of 260. A 0.014 area relief pilot [place] pressure wire was placed in the proximal left circumflex. The sheath was removed and guide catheter thoroughly flushed with 20 mL of normal saline. The 0.014 [place] wire was placed into the distal obtuse marginal vessel. IFR was 1.0. The patient was given 140 mcg/kg per minute of adenosine for 3 minutes. FFR was 0.98. PCI was deferred. CONCLUSION: 1. Unstable angina, [place] [employer] class IV angina 2. Moderate two-vessel coronary artery disease in a right dominant system as detailed above with mild left main disease. 3. Normal left ventricular systolic function with ejection fraction 60%. 5. 60% proximal mid-first obtuse marginal vessel with instantaneous wave-free ratio of 1.0 and fractional flow reserve 0.98. 3. 60% long mid-left anterior descending lesion. It appears that the smallest diameter of the area in question in the left anterior descending is 3.5 mm. Reference vessel diameter of the left anterior descending is about 4.5 mm. RECOMMENDATIONS: Recommend medical management of coronary artery disease, cardiac risk factor modification. Also, we will resume Coumadin this evening as the patient has a CHADS-VASc score of 4. Leroy Waters MD AWMicheal/SB , 01:19 PM , 01:30 PM
[2018-01-26] MEDS ORDERED: Iohexol 350 MG/ML 100 ML Vial (for Cath Lab) IVCONTRAST ONE (15:41)
--- NOTE | 2018-01-26 20:31 | P.PN ---
Subjective Interval history: ALERT NO SOB AT REST Physical Exam Vital signs: Vital Signs 01/25/18 21:00 01/25/18 22:00 01/25/18 23:00 Temperature Pulse Rate 87 87 85 Respiratory Rate 18 23 19 Blood Pressure 121/65 117/58 L 128/69 Pulse Oximetry 89 L 93 L 94 L 01/26/18 00:00 01/26/18 00:41 01/26/18 04:00 Temperature 98.1 F Pulse Rate 88 96 H 92 H Respiratory Rate 19 20 12 Blood Pressure 129/64 147/69 H Pulse Oximetry 92 L 93 L 93 L 01/26/18 04:53 01/26/18 07:36 01/26/18 08:00 Temperature 97.7 F Pulse Rate 93 H 81 86 Respiratory Rate 20 20 16 Blood Pressure 145/72 H Pulse Oximetry 94 L 01/26/18 09:00 01/26/18 11:16 01/26/18 12:00 Temperature 97.9 F Pulse Rate 86 108 H 111 H Respiratory Rate 20 24 Blood Pressure 130/72 Pulse Oximetry 91 L 01/26/18 14:00 01/26/18 14:15 01/26/18 14:30 Temperature Pulse Rate 107 H 107 H 107 H Respiratory Rate 23 22 19 Blood Pressure 124/72 118/72 115/81 Pulse Oximetry 87 L 83 L 85 L 01/26/18 14:45 01/26/18 15:00 01/26/18 15:15 Temperature Pulse Rate 107 H 106 H 107 H Respiratory Rate 21 19 21 Blood Pressure 118/70 114/58 L 118/66 Pulse Oximetry 88 L 86 L 85 L 01/26/18 15:30 01/26/18 15:51 01/26/18 16:07 Temperature Pulse Rate 104 H 107 H 105 H Respiratory Rate 20 18 26 H Blood Pressure 128/63 130/68 Pulse Oximetry 87 L 87 L 86 L 01/26/18 16:30 01/26/18 17:30 01/26/18 18:30 Temperature 97.6 F Pulse Rate 104 H 100 H 102 H Respiratory Rate 19 19 16 Blood Pressure 131/66 117/67 108/54 L Pulse Oximetry 91 L 92 L 90 L 01/26/18 19:00 01/26/18 19:30 01/26/18 20:23 Temperature Pulse Rate 99 H 100 H 98 H Respiratory Rate 19 21 17 Blood Pressure 127/61 126/62 Pulse Oximetry 100 99 94 L Intake & Output 01/26/18 01/26/18 01/27/18 06:59 18:59 06:59 Intake Total 230 / 230 230 / 230 Output Total 100 / 100 2500 / 2500 Balance 130 / 130 -2270 / -2270 Weight 91 kg Intake: IV 50 / 50 50 / 50 Zosyn 2.25 GM Premix 50 ML @ 50 / 50 50 / 50 100 mls/hr IV.SIG Q12H PEDRO Rx#: [id number] Oral 180 / 180 180 / 180 Output: Urine 100 / 100 0 / 0 Stool 0 / 0 Hemodialysis Amount 2500 / 2500 Other: Date of Last Bowel Movement 01/24/18 01/24/18 # Bowel Movements 0 0 Narrative: GENERAL: No acute distress. HEENT: NC, AT. CARDIOVASCULAR: Irregularly irregular rhythm. RESPIRATORY: No accessory muscle use. Crackles at the bases. GASTROINTESTINAL: Abdomen soft, non-tender, nondistended. Hepatic and splenic margins not palpable. Decreased bowel sounds. MUSCULOSKELETAL: Extremities without clubbing, cyanosis, mild edema. No obvious deformities. NEUROLOGICAL: Awake and alert. No obvious cranial nerve deficits. Results - Labs CBC & Chem 7: 01/26/18 07:00 01/26/18 07:00 Laboratory Results - last 24 hr 01/26/18 01/26/18 01/26/18 07:00 07:00 07:00 WBC 3.8 L RBC 3.83 L Hgb 10.5 L Hct 33.1 L MCV 86.3 MCH 27.5 MCHC 31.8 L RDW 16.1 Plt Count 186 MPV 8.9 PT 17.0 H INR 1.7 APTT Sodium 135 L Potassium 4.9 Chloride 96 L Carbon Dioxide 30.5 Anion Gap 9 BUN 52 H Creatinine 8.26 H Estimated GFR 6 L Random Glucose 232 H Calcium 8.8 Random Vancomycin 13.8 01/26/18 14:16 WBC RBC Hgb Hct MCV MCH MCHC RDW Plt Count MPV PT INR APTT 63.4 H Sodium Potassium Chloride Carbon Dioxide Anion Gap BUN Creatinine Estimated GFR Random Glucose Calcium Random Vancomycin Microbiology 01/24/18 13:40 Sputum - Expectorated Sputum Gram Stain - Final 01/24/18 13:40 Sputum - Expectorated Sputum Sputum Culture - Final Heavy growth normal respiratory marielos Assessment and Plan - Plan RESPIRATORY FAILURE RENAL FAILURE ? COPD PLAN O2 NEEDED BRONCHODILATOR THERAPY INCREASE ACTIVITY
[2018-01-27] MEDS: Metoprolol Tartrate 25 MG Tablet PO SCH ×4 (01:42→21:22)
[2018-01-27 04:44] LABS: Hematocrit 32.1 % (39.0-51.0); Hemoglobin 10.4 gm/dL (13.0-17.0); Mean Corpuscular HGB Conc 32.3 % (32.0-36.0); Mean Corpuscular Hemoglobin 27.9 pg (27.0-34.0); Mean Corpuscular Volume 86.4 fL (80.0-100.0); Mean Platelet Volume 8.8 fL (7.0-11.0); Platelet Count 188 th/mm3 (150-450); Red Blood Count 3.72 mil/mm3 (4.50-5.90); Red Cell Distribution Width 16.5 % (11.6-17.2); White Blood Count 10.1 th/mm3 (4.0-11.0)
[2018-01-27 04:49] LABS: INR 1.7 Ratio; Prothrombin Time 17.4 sec (9.8-11.6)
[2018-01-27] MEDS: Senna/Docusate Sodium 8.6/50 MG Tablet PO SCH ×2 (08:11→21:23)
[2018-01-27] MEDS: Amiodarone 200 MG Tablet PO SCH ×2 (08:11→21:23)
[2018-01-27] MEDS: Budesonide-Formoterol 160/4.5 MCG 6 GM Inhaler INH SCH ×2 (08:12→21:24)
--- NOTE | 2018-01-27 09:11 | P.PN ---
Subjective Interval history: alert sitting in bed no SOB Physical Exam Vital signs: Vital Signs 01/26/18 11:16 01/26/18 12:00 01/26/18 14:00 Temperature 97.9 F Pulse Rate 108 H 111 H 107 H Respiratory Rate 20 24 23 Blood Pressure 130/72 124/72 Pulse Oximetry 91 L 87 L 01/26/18 14:15 01/26/18 14:30 01/26/18 14:45 Temperature Pulse Rate 107 H 107 H 107 H Respiratory Rate 22 19 21 Blood Pressure 118/72 115/81 118/70 Pulse Oximetry 83 L 85 L 88 L 01/26/18 15:00 01/26/18 15:15 01/26/18 15:30 Temperature Pulse Rate 106 H 107 H 104 H Respiratory Rate 19 21 20 Blood Pressure 114/58 L 118/66 128/63 Pulse Oximetry 86 L 85 L 87 L 01/26/18 15:51 01/26/18 16:07 01/26/18 16:30 Temperature Pulse Rate 107 H 105 H 104 H Respiratory Rate 18 26 H 19 Blood Pressure 130/68 131/66 Pulse Oximetry 87 L 86 L 91 L 01/26/18 17:30 01/26/18 18:30 01/26/18 19:00 Temperature 97.6 F Pulse Rate 100 H 102 H 99 H Respiratory Rate 19 16 19 Blood Pressure 117/67 108/54 L 127/61 Pulse Oximetry 92 L 90 L 100 01/26/18 19:30 01/26/18 20:00 01/26/18 20:23 Temperature 98.2 F Pulse Rate 100 H 100 H 98 H Respiratory Rate 21 21 17 Blood Pressure 126/62 126/62 Pulse Oximetry 99 92 L 94 L 01/26/18 20:30 01/26/18 22:00 01/26/18 23:36 Temperature Pulse Rate 99 H 101 H 99 H Respiratory Rate 18 17 Blood Pressure 125/76 Pulse Oximetry 93 L 01/27/18 00:00 01/27/18 02:00 01/27/18 04:00 Temperature 98.6 F 97.7 F Pulse Rate 101 H 105 H 102 H Respiratory Rate 16 20 Blood Pressure 135/69 136/82 Pulse Oximetry 92 L 91 L 01/27/18 04:01 01/27/18 06:00 01/27/18 07:51 Temperature Pulse Rate 103 H 105 H 103 H Respiratory Rate 19 16 Blood Pressure Pulse Oximetry 01/27/18 08:00 Temperature Pulse Rate 104 H Respiratory Rate Blood Pressure Pulse Oximetry 93 L Intake & Output 01/26/18 01/27/18 01/27/18 18:59 06:59 18:59 Intake Total 230 / 230 290 / 290 Output Total 2500 / 2500 195 / 195 Balance -2270 / -2270 95 / 95 Weight 97 kg Intake: IV 50 / 50 50 / 50 Zosyn 2.25 GM Premix 50 ML @ 50 / 50 50 / 50 100 mls/hr IV.SIG Q12H PEDRO Rx#: [id number] Oral 180 / 180 240 / 240 Output: Urine 0 / 0 195 / 195 Hemodialysis Amount 2500 / 2500 Other: Date of Last Bowel Movement 01/24/18 01/24/18 01/24/18 # Bowel Movements 0 Narrative: GENERAL: No acute distress. HEENT: NC, AT. CARDIOVASCULAR: Irregularly irregular rhythm. RESPIRATORY: No accessory muscle use. Crackles at the bases. GASTROINTESTINAL: Abdomen soft, non-tender, nondistended. Hepatic and splenic margins not palpable. Decreased bowel sounds. MUSCULOSKELETAL: Extremities without clubbing, cyanosis, mild edema. No obvious deformities. NEUROLOGICAL: Awake and alert. No obvious cranial nerve deficits. Results - Labs CBC & Chem 7: 01/27/18 03:54 01/26/18 07:00 Laboratory Results - last 24 hr 01/26/18 01/27/18 01/27/18 14:16 00:08 03:54 WBC RBC Hgb Hct MCV MCH MCHC RDW Plt Count MPV PT 17.4 H INR 1.7 APTT 63.4 H POC Glucose 232 H 01/27/18 03:54 WBC 10.1 D RBC 3.72 L Hgb 10.4 L Hct 32.1 L MCV 86.4 MCH 27.9 MCHC 32.3 RDW 16.5 Plt Count 188 MPV 8.8 PT INR APTT POC Glucose Microbiology 01/24/18 13:40 Sputum - Expectorated Sputum Gram Stain - Final 01/24/18 13:40 Sputum - Expectorated Sputum Sputum Culture - Final Heavy growth normal respiratory marielos Assessment and Plan - Plan RESPIRATORY FAILURE RENAL FAILURE ? COPD PLAN O2 NEEDED BRONCHODILATOR THERAPY INCREASE ACTIVITY F/U CXRAY
--- NOTE | 2018-01-27 09:58 | P.PNIM ---
Subjective Interval history: The patient states that he has been on home oxygen in the past but was able to get off of it eventually. He would not mind being discharged with home oxygen again. He would like to use the commode to go to the bathroom. 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 Discussed with pulmonology and nursing at the bedside. Physical Exam Vital signs: Vital Signs 01/26/18 11:16 01/26/18 12:00 01/26/18 14:00 Temperature 97.9 F Pulse Rate 108 H 111 H 107 H Respiratory Rate 20 24 23 Blood Pressure 130/72 124/72 Pulse Oximetry 91 L 87 L 01/26/18 14:15 01/26/18 14:30 01/26/18 14:45 Temperature Pulse Rate 107 H 107 H 107 H Respiratory Rate 22 19 21 Blood Pressure 118/72 115/81 118/70 Pulse Oximetry 83 L 85 L 88 L 01/26/18 15:00 01/26/18 15:15 01/26/18 15:30 Temperature Pulse Rate 106 H 107 H 104 H Respiratory Rate 19 21 20 Blood Pressure 114/58 L 118/66 128/63 Pulse Oximetry 86 L 85 L 87 L 01/26/18 15:51 01/26/18 16:07 01/26/18 16:30 Temperature Pulse Rate 107 H 105 H 104 H Respiratory Rate 18 26 H 19 Blood Pressure 130/68 131/66 Pulse Oximetry 87 L 86 L 91 L 01/26/18 17:30 01/26/18 18:30 01/26/18 19:00 Temperature 97.6 F Pulse Rate 100 H 102 H 99 H Respiratory Rate 19 16 19 Blood Pressure 117/67 108/54 L 127/61 Pulse Oximetry 92 L 90 L 100 01/26/18 19:30 01/26/18 20:00 01/26/18 20:23 Temperature 98.2 F Pulse Rate 100 H 100 H 98 H Respiratory Rate 21 21 17 Blood Pressure 126/62 126/62 Pulse Oximetry 99 92 L 94 L 01/26/18 20:30 01/26/18 22:00 01/26/18 23:36 Temperature Pulse Rate 99 H 101 H 99 H Respiratory Rate 18 17 Blood Pressure 125/76 Pulse Oximetry 93 L 01/27/18 00:00 01/27/18 02:00 01/27/18 04:00 Temperature 98.6 F 97.7 F Pulse Rate 101 H 105 H 102 H Respiratory Rate 16 20 Blood Pressure 135/69 136/82 Pulse Oximetry 92 L 91 L 01/27/18 04:01 01/27/18 06:00 01/27/18 07:51 Temperature Pulse Rate 103 H 105 H 103 H Respiratory Rate 19 16 Blood Pressure Pulse Oximetry 01/27/18 08:00 Temperature Pulse Rate 104 H Respiratory Rate Blood Pressure Pulse Oximetry 93 L Intake & Output 01/26/18 01/27/18 01/27/18 18:59 06:59 18:59 Intake Total 230 / 230 290 / 290 Output Total 2500 / 2500 195 / 195 Balance -2270 / -2270 95 / 95 Weight 97 kg Intake: IV 50 / 50 50 / 50 Zosyn 2.25 GM Premix 50 ML @ 50 / 50 50 / 50 100 mls/hr IV.SIG Q12H PEDRO Rx#: [id number] Oral 180 / 180 240 / 240 Output: Urine 0 / 0 195 / 195 Hemodialysis Amount 2500 / 2500 Other: Date of Last Bowel Movement 01/24/18 01/24/18 01/24/18 # Bowel Movements 0 Narrative: GENERAL: No acute distress. HEENT: NC, AT. CARDIOVASCULAR: Irregularly irregular rhythm. RESPIRATORY: No accessory muscle use. Crackles at the bases. GASTROINTESTINAL: Abdomen soft, non-tender, nondistended. Hepatic and splenic margins not palpable. Decreased bowel sounds. MUSCULOSKELETAL: Extremities without clubbing, cyanosis, mild edema. No obvious deformities. Cath site without hematoma. NEUROLOGICAL: Awake and alert. No obvious cranial nerve deficits. Results - Labs CBC & Chem 7: 01/27/18 03:54 01/26/18 07:00 Laboratory Results - last 24 hr 01/26/18 01/27/18 01/27/18 14:16 00:08 03:54 WBC RBC Hgb Hct MCV MCH MCHC RDW Plt Count MPV PT 17.4 H INR 1.7 APTT 63.4 H POC Glucose 232 H 01/27/18 03:54 WBC 10.1 D RBC 3.72 L Hgb 10.4 L Hct 32.1 L MCV 86.4 MCH 27.9 MCHC 32.3 RDW 16.5 Plt Count 188 MPV 8.8 PT INR APTT POC Glucose Microbiology 01/24/18 13:40 Sputum - Expectorated Sputum Gram Stain - Final 01/24/18 13:40 Sputum - Expectorated Sputum Sputum Culture - Final Heavy growth normal respiratory marielos Assessment and Plan - Assessment (1) Atrial fibrillation with RVR Code(s): I48.91 - Unspecified atrial fibrillation Status: Acute (2) Chest pain Code(s): R07.9 - Chest pain, unspecified Status: Acute (3) ESRD (end stage renal disease) on dialysis Code(s): N18.6 - End stage renal disease; Z99.2 - Dependence on renal dialysis Status: Acute (4) CHF (congestive heart failure) Code(s): I50.9 - Heart failure, unspecified Status: Acute - Plan 72-year-old male admitted with new onset A. fib with RVR, rate initially very difficult to control due to issues of hypotension. Rate is now controlled. Patient to undergo heart catheterization for persistent chest pain. Afib w/ RVR New Onset. Patient was admitted about a month ago for SVT. Cardiogenic shock on 01/18: Became Hypotensive after receiving Bystolic. This was discontinued and patient was started on Midodrine. - Appreciate Cardiology input. Continue Amiodarone and Lopressor. - Patient started on Coumadin per cardiology. On heparin gtt and Coumadin. CHF ?Diastolic. Echo 12/10/17 w/ EF 55%, BNP 1096 on admission. Suspect persistent tachyarrhythmia could have contributed to elevated BNP. CXR indicative of pulmonary congestion. - Monitor I/O. - continue cardiac regimen and follow-up with cardiology. - volume management with dialysis. Chest pain Improved. Cardiac enzymes negative. S/p cath 01/26 which revealed: Moderate two- vessel coronary artery disease with mild left main disease. - medical management per cardiology. ESRD On HD: M/W/F, s/p LUE AV Fistula 12/17/[address] Hutson, Permacath placed . - Appreciate nephrology following. Continue hemodialysis as scheduled. Acute respiratory failure The pt has been requiring 6L NC. CXR indicative of pulmonary congestion. Pulmonology consult appreciated. - continue albuterol nebs. - continue Symbicort. - volume management with dialysis. - pulmonology started IV Solumedrol. - added vancomycin and Zosyn 01/24. - encourage ambulation. Constipation Seems resolved. - continue bowel regimen. - Suppository, enema if needed. DVT PPx: Heparin gtt (4) CHF (congestive heart failure) Qualifiers: Heart failure type: unspecified Heart failure chronicity: unspecified Qualified Code(s): I50.9 - Heart failure, unspecified
[2018-01-27] MEDS ORDERED: Warfarin Consult Pharmacy 1 EACH OTHER SCH (10:00)
--- NOTE | 2018-01-27 10:09 | P.PNNP ---
Subjective Interval history: He is awake and alert. Heart rate 100s. No new concerns. <OsmanyJyoti Radhames - Last Filed: 01/27/18 10:05> Physical Exam Vital signs: Vital Signs 01/26/18 11:16 01/26/18 12:00 01/26/18 14:00 Temperature 97.9 F Pulse Rate 108 H 111 H 107 H Respiratory Rate 20 24 23 Blood Pressure 130/72 124/72 Pulse Oximetry 91 L 87 L 01/26/18 14:15 01/26/18 14:30 01/26/18 14:45 Temperature Pulse Rate 107 H 107 H 107 H Respiratory Rate 22 19 21 Blood Pressure 118/72 115/81 118/70 Pulse Oximetry 83 L 85 L 88 L 01/26/18 15:00 01/26/18 15:15 01/26/18 15:30 Temperature Pulse Rate 106 H 107 H 104 H Respiratory Rate 19 21 20 Blood Pressure 114/58 L 118/66 128/63 Pulse Oximetry 86 L 85 L 87 L 01/26/18 15:51 01/26/18 16:07 01/26/18 16:30 Temperature Pulse Rate 107 H 105 H 104 H Respiratory Rate 18 26 H 19 Blood Pressure 130/68 131/66 Pulse Oximetry 87 L 86 L 91 L 01/26/18 17:30 01/26/18 18:30 01/26/18 19:00 Temperature 97.6 F Pulse Rate 100 H 102 H 99 H Respiratory Rate 19 16 19 Blood Pressure 117/67 108/54 L 127/61 Pulse Oximetry 92 L 90 L 100 01/26/18 19:30 01/26/18 20:00 01/26/18 20:23 Temperature 98.2 F Pulse Rate 100 H 100 H 98 H Respiratory Rate 21 21 17 Blood Pressure 126/62 126/62 Pulse Oximetry 99 92 L 94 L 01/26/18 20:30 01/26/18 22:00 01/26/18 23:36 Temperature Pulse Rate 99 H 101 H 99 H Respiratory Rate 18 17 Blood Pressure 125/76 Pulse Oximetry 93 L 01/27/18 00:00 01/27/18 02:00 01/27/18 04:00 Temperature 98.6 F 97.7 F Pulse Rate 101 H 105 H 102 H Respiratory Rate 16 20 Blood Pressure 135/69 136/82 Pulse Oximetry 92 L 91 L 01/27/18 04:01 01/27/18 06:00 01/27/18 07:51 Temperature Pulse Rate 103 H 105 H 103 H Respiratory Rate 19 16 Blood Pressure Pulse Oximetry 01/27/18 08:00 Temperature Pulse Rate 104 H Respiratory Rate Blood Pressure Pulse Oximetry 93 L Intake & Output 01/26/18 01/27/18 01/27/18 18:59 06:59 18:59 Intake Total 230 / 230 290 / 290 Output Total 2500 / 2500 195 / 195 Balance -2270 / -2270 95 / 95 Weight 97 kg Intake: IV 50 / 50 50 / 50 Zosyn 2.25 GM Premix 50 ML @ 50 / 50 50 / 50 100 mls/hr IV.SIG Q12H PEDRO Rx#: [id number] Oral 180 / 180 240 / 240 Output: Urine 0 / 0 195 / 195 Hemodialysis Amount 2500 / 2500 Other: Date of Last Bowel Movement 01/24/18 01/24/18 01/24/18 # Bowel Movements 0 - Constitutional no acute distress, average body habitus, chronically ill appearing - Routine HEENT Exam Head: Present: normocephalic - Routine Neck Exam Present: supple, full ROM. Absent: JVD - Routine Respiratory Exam Present: decreased breath sounds, rales, crackles, diminished air movement. Absent: accessory muscle use - Routine Cardiovascular Exam Present: S1, S2, tachycardia, irregular rhythm, irregularly irregular - Routine Abdominal Exam Present: soft, normoactive bowel sounds. Absent: tenderness, distended - Routine Extremities Exam Present: full ROM, pulses intact, normal capillary refill. Absent: edema - Routine Skin Exam Present: intact, warm - Routine Neurological Exam Present: alert, oriented X3, CN II-XII intact, moving all extremities - Detailed Neurological Exam: Coma Scale Eye Opening: Spontaneous Verbal Response: Oriented Motor Response: Obey commands Edgar Coma Scale Total: 15 - Routine Psychiatric Exam Present: normal affect, normal thought process <Jyoti Ceron - Last Filed: 01/27/18 10:05> Vital signs: Vital Signs 01/27/18 10:00 01/27/18 10:21 01/27/18 12:00 Temperature 97.9 F Pulse Rate 102 H 104 H Respiratory Rate 25 H Blood Pressure 119/80 Pulse Oximetry 93 L 87 L 01/27/18 12:18 01/27/18 14:00 01/27/18 16:00 Temperature 97.7 F Pulse Rate 103 H 109 H 103 H Respiratory Rate 22 23 Blood Pressure 145/68 H Pulse Oximetry 91 L 01/27/18 16:15 01/27/18 18:00 01/27/18 20:00 Temperature 98 F Pulse Rate 104 H 103 H 103 H Respiratory Rate 24 15 Blood Pressure 122/75 Pulse Oximetry 94 L 01/27/18 20:38 01/27/18 21:08 01/27/18 22:00 Temperature Pulse Rate 102 H 108 H Respiratory Rate 17 Blood Pressure Pulse Oximetry 96 96 01/28/18 00:00 01/28/18 02:00 01/28/18 04:00 Temperature 97.8 F 98 F Pulse Rate 107 H 106 H 101 H Respiratory Rate 16 16 Blood Pressure 143/78 H 115/70 Pulse Oximetry 92 L 93 L 01/28/18 06:00 Temperature Pulse Rate 101 H Respiratory Rate Blood Pressure Pulse Oximetry Intake & Output 01/27/18 01/28/18 01/28/18 18:59 06:59 18:59 Intake Total 410 / 410 350 / 350 Output Total 125 / 125 25 / 25 Balance 285 / 285 325 / 325 Weight 96.5 kg Intake: IV 50 / 50 50 / 50 Zosyn 2.25 GM Premix 50 ML @ 50 / 50 50 / 50 100 mls/hr IV.SIG Q12H PEDRO Rx#: [id number] Oral 360 / 360 300 / 300 Output: Urine 125 / 125 25 / 25 Other: # Voids 1 Date of Last Bowel Movement 01/24/18 01/28/18 # Bowel Movements 0 1 <Eduardo Salvador - Last Filed: 01/28/18 08:17> Assessment and Plan - Assessment (1) ESRD (end stage renal disease) on dialysis Code(s): N18.6 - End stage renal disease; Z99.2 - Dependence on renal dialysis Status: Acute Plan: Continue HD MWF. 2.5 Liter UF yesterday. Monitor electrolytes intermittently. Avoid IVF administration Protect left arm from procedures, has new AV access that is not mature. PermCath in place for HD use. Phosphorus level acceptable without binder therapy. High protein low K diet ordered. Also on Supplements. (2) Atrial fibrillation with RVR Code(s): I48.91 - Unspecified atrial fibrillation Status: Acute Plan: Rate is variable. On PO Amiodarone and metoprolol. Consider changing to labetalol or carvedilol as metoprolol is dialyzable. Midodrine is ordered TID. On Coumadin, resume today and follow INR. (3) CHF (congestive heart failure) Code(s): I50.9 - Heart failure, unspecified Status: Acute Qualifiers: Heart failure type: unspecified Heart failure chronicity: unspecified Qualified Code(s): I50.9 - Heart failure, unspecified Plan: Monitor fluid status, fluid removal as tolerated EF 60% on cath. Cardiology following (4) Anemia in CKD (chronic kidney disease) Code(s): N18.9 - Chronic kidney disease, unspecified; D63.1 - Anemia in chronic kidney disease Status: Acute Plan: On Epogen with dialysis. <Jyoti Ceron - Last Filed: 01/27/18 10:05> - Assessment (1) ESRD (end stage renal disease) on dialysis Code(s): N18.6 - End stage renal disease; Z99.2 - Dependence on renal dialysis Status: Acute (2) Atrial fibrillation with RVR Code(s): I48.91 - Unspecified atrial fibrillation Status: Acute (3) CHF (congestive heart failure) Code(s): I50.9 - Heart failure, unspecified Status: Acute Qualifiers: Heart failure type: unspecified Heart failure chronicity: unspecified Qualified Code(s): I50.9 - Heart failure, unspecified (4) Anemia in CKD (chronic kidney disease) Code(s): N18.9 - Chronic kidney disease, unspecified; D63.1 - Anemia in chronic kidney disease Status: Acute - Attending Attestation patient was seen and examined. Agree with above assessment and plan. Change Metoprolol to Carvedilol. <Eduardo Salvador - Last Filed: 01/28/18 08:17>
[2018-01-27] MEDS: Piperacil/Tazo 2.25 GM Premix 50 ML IV.SIG SCH ×2 (11:04→22:43)
[2018-01-27 12:27] LABS: INR 1.7 Ratio; Prothrombin Time 16.9 sec (9.8-11.6)
--- NOTE | 2018-01-27 12:44 | P.PNCA ---
Subjective Interval history: alert in nad Physical Exam Vital signs: Vital Signs 01/26/18 14:00 01/26/18 14:15 01/26/18 14:30 Temperature Pulse Rate 107 H 107 H 107 H Respiratory Rate 23 22 19 Blood Pressure 124/72 118/72 115/81 Pulse Oximetry 87 L 83 L 85 L 01/26/18 14:45 01/26/18 15:00 01/26/18 15:15 Temperature Pulse Rate 107 H 106 H 107 H Respiratory Rate 21 19 21 Blood Pressure 118/70 114/58 L 118/66 Pulse Oximetry 88 L 86 L 85 L 01/26/18 15:30 01/26/18 15:51 01/26/18 16:07 Temperature Pulse Rate 104 H 107 H 105 H Respiratory Rate 20 18 26 H Blood Pressure 128/63 130/68 Pulse Oximetry 87 L 87 L 86 L 01/26/18 16:30 01/26/18 17:30 01/26/18 18:30 Temperature 97.6 F Pulse Rate 104 H 100 H 102 H Respiratory Rate 19 19 16 Blood Pressure 131/66 117/67 108/54 L Pulse Oximetry 91 L 92 L 90 L 01/26/18 19:00 01/26/18 19:30 01/26/18 20:00 Temperature 98.2 F Pulse Rate 99 H 100 H 100 H Respiratory Rate 19 21 21 Blood Pressure 127/61 126/62 126/62 Pulse Oximetry 100 99 92 L 01/26/18 20:23 01/26/18 20:30 01/26/18 22:00 Temperature Pulse Rate 98 H 99 H 101 H Respiratory Rate 17 18 Blood Pressure 125/76 Pulse Oximetry 94 L 93 L 01/26/18 23:36 01/27/18 00:00 01/27/18 02:00 Temperature 98.6 F Pulse Rate 99 H 101 H 105 H Respiratory Rate 17 16 Blood Pressure 135/69 Pulse Oximetry 92 L 01/27/18 04:00 01/27/18 04:01 01/27/18 06:00 Temperature 97.7 F Pulse Rate 102 H 103 H 105 H Respiratory Rate 20 19 Blood Pressure 136/82 Pulse Oximetry 91 L 01/27/18 07:51 01/27/18 08:00 01/27/18 10:00 Temperature Pulse Rate 103 H 104 H 102 H Respiratory Rate 16 Blood Pressure Pulse Oximetry 93 L 01/27/18 10:21 01/27/18 12:18 Temperature Pulse Rate 103 H Respiratory Rate 22 Blood Pressure Pulse Oximetry 93 L Intake & Output 01/26/18 01/27/18 01/27/18 18:59 06:59 18:59 Intake Total 230 / 230 290 / 290 Output Total 2500 / 2500 195 / 195 Balance -2270 / -2270 95 / 95 Weight 97 kg Intake: IV 50 / 50 50 / 50 Zosyn 2.25 GM Premix 50 ML @ 50 / 50 50 / 50 100 mls/hr IV.SIG Q12H PEDRO Rx#: [id number] Oral 180 / 180 240 / 240 Output: Urine 0 / 0 195 / 195 Hemodialysis Amount 2500 / 2500 Other: Date of Last Bowel Movement 01/24/18 01/24/18 01/24/18 # Bowel Movements 0 Assessment and Plan - Assessment (1) Atrial fibrillation with rapid ventricular response Code(s): I48.91 - Unspecified atrial fibrillation Status: Acute (2) CHF (congestive heart failure) Code(s): I50.9 - Heart failure, unspecified Status: Acute (3) Chronic kidney disease with end stage renal failure on dialysis Code(s): N18.6 - End stage renal disease; Z99.2 - Dependence on renal dialysis Status: Acute (4) Atrial fibrillation with RVR Code(s): I48.91 - Unspecified atrial fibrillation Status: Acute (5) ESRD (end stage renal disease) on dialysis Code(s): N18.6 - End stage renal disease; Z99.2 - Dependence on renal dialysis Status: Acute - Plan 1.) Afib with rvr - Dr Weinberg started amio and coumadin, rates improved, below 100 's, coumadin restarted, d/w Dr Weinberg, he will see patient and readjust meds as needed 2.) CAD - continue, lipitor, coumadin (2) CHF (congestive heart failure) Qualifiers: Heart failure type: unspecified Heart failure chronicity: unspecified Qualified Code(s): I50.9 - Heart failure, unspecified
[2018-01-28] MEDS: Metoprolol Tartrate 25 MG Tablet PO SCH (02:43)
[2018-01-28] MEDS: Bisacodyl 10 MG Supp RECTAL PRN (05:14)
[2018-01-28 07:15] LABS: Hematocrit 33.9 % (39.0-51.0); Hemoglobin 10.8 gm/dL (13.0-17.0); Mean Corpuscular HGB Conc 31.9 % (32.0-36.0); Mean Corpuscular Volume 87.6 fL (80.0-100.0); Mean Platelet Volume 8.9 fL (7.0-11.0); Platelet Count 205 th/mm3 (150-450); Red Blood Count 3.87 mil/mm3 (4.50-5.90); Red Cell Distribution Width 16.4 % (11.6-17.2); White Blood Count 10.3 th/mm3 (4.0-11.0)
[2018-01-28 07:24] LABS: INR 1.6 Ratio; Prothrombin Time 15.7 sec (9.8-11.6)
[2018-01-28 07:49] LABS: Albumin 3.1 g/dL (3.4-5.0); Calcium 8.8 mg/dL (8.5-10.1); Carbon Dioxide 28.2 meq/L (21.0-32.0); Phosphorus 4.2 mg/dL (2.5-4.9); Potassium 4.7 meq/L (3.5-5.1)
[2018-01-28] MEDS: Amiodarone 200 MG Tablet PO SCH ×2 (08:58→17:20)
[2018-01-28] MEDS: Senna/Docusate Sodium 8.6/50 MG Tablet PO SCH ×2 (08:59→20:08)
[2018-01-28] MEDS ORDERED: Carvedilol 12.5 MG Tablet PO SCH (09:00)
--- NOTE | 2018-01-28 09:04 | P.PNNP ---
Subjective Interval history: patient complains of constipation. No chest pain today, but apparently had difficulty with breathing yesterday. To have dialysis today. Patient continues to be tachycardic, rate around 108-110 at rest. In atrial fibrillation. Physical Exam Vital signs: Vital Signs 01/27/18 10:00 01/27/18 10:21 01/27/18 12:00 Temperature 97.9 F Pulse Rate 102 H 104 H Respiratory Rate 25 H Blood Pressure 119/80 Pulse Oximetry 93 L 87 L 01/27/18 12:18 01/27/18 14:00 01/27/18 16:00 Temperature 97.7 F Pulse Rate 103 H 109 H 103 H Respiratory Rate 22 23 Blood Pressure 145/68 H Pulse Oximetry 91 L 01/27/18 16:15 01/27/18 18:00 01/27/18 20:00 Temperature 98 F Pulse Rate 104 H 103 H 103 H Respiratory Rate 24 15 Blood Pressure 122/75 Pulse Oximetry 94 L 01/27/18 20:38 01/27/18 21:08 01/27/18 22:00 Temperature Pulse Rate 102 H 108 H Respiratory Rate 17 Blood Pressure Pulse Oximetry 96 96 01/28/18 00:00 01/28/18 02:00 01/28/18 04:00 Temperature 97.8 F 98 F Pulse Rate 107 H 106 H 101 H Respiratory Rate 16 16 Blood Pressure 143/78 H 115/70 Pulse Oximetry 92 L 93 L 01/28/18 06:00 Temperature Pulse Rate 101 H Respiratory Rate Blood Pressure Pulse Oximetry Intake & Output 01/27/18 01/28/18 01/28/18 18:59 06:59 18:59 Intake Total 410 / 410 350 / 350 Output Total 125 / 125 25 / 25 Balance 285 / 285 325 / 325 Weight 96.5 kg Intake: IV 50 / 50 50 / 50 Zosyn 2.25 GM Premix 50 ML @ 50 / 50 50 / 50 100 mls/hr IV.SIG Q12H PEDRO Rx#: [id number] Oral 360 / 360 300 / 300 Output: Urine 125 / 125 25 / 25 Other: # Voids 1 Date of Last Bowel Movement 01/24/18 01/28/18 # Bowel Movements 0 1 - Constitutional no acute distress, chronically ill appearing Comments: frail, elderly. - Routine HEENT Exam Head: Present: normocephalic, atraumatic Eye: Present: EOMI, PERRL ENT: Present: mucous membranes moist - Routine Neck Exam Present: supple, full ROM. Absent: JVD, carotid bruit, lymphadenopathy, thyromegaly - Routine Respiratory Exam Present: CTA bilaterally. Absent: accessory muscle use - Routine Cardiovascular Exam Present: S1, S2, tachycardia, irregularly irregular - Routine Abdominal Exam Present: soft, normoactive bowel sounds - Routine Neurological Exam Present: alert, oriented X3, normal speech. Absent: motor deficit, altered mental status, facial asymmetry Assessment and Plan - Assessment (1) ESRD (end stage renal disease) on dialysis Code(s): N18.6 - End stage renal disease; Z99.2 - Dependence on renal dialysis Status: Acute Plan: Continue HD MWF. Dialysis today. Monitor electrolytes intermittently. Avoid IVF administration Protect left arm from procedures, has new AV access that is not mature. PermCath in place for HD use. Phosphorus level acceptable without binder therapy. High protein low K diet ordered. Also on Supplements. (2) Atrial fibrillation with RVR Code(s): I48.91 - Unspecified atrial fibrillation Status: Acute Plan: Rate is variable. On PO Amiodarone and metoprolol. I will change beta ruth to Carvedilol. . Midodrine is ordered TID. Rate is still not controlled, tachycardic even at rest. Concerned that without additional interventions, he will come back to the hospital. (3) CHF (congestive heart failure) Code(s): I50.9 - Heart failure, unspecified Status: Acute Qualifiers: Heart failure type: unspecified Heart failure chronicity: unspecified Qualified Code(s): I50.9 - Heart failure, unspecified Plan: Stable. EF noted to be around 60%. (4) Anemia in CKD (chronic kidney disease) Code(s): N18.9 - Chronic kidney disease, unspecified; D63.1 - Anemia in chronic kidney disease Status: Acute Plan: On Epogen with dialysis. Hemoglobin is acceptable.
[2018-01-28] MEDS: Piperacil/Tazo 2.25 GM Premix 50 ML IV.SIG SCH ×2 (11:35→23:00)
[2018-01-28] MEDS: Budesonide-Formoterol 160/4.5 MCG 6 GM Inhaler INH SCH (11:35)
--- NOTE | 2018-01-28 11:54 | P.PNIM ---
Subjective Interval history: The patient was complaining of constipation. He had a minor bowel movement yesterday and was having abdominal pain and nausea. Discussed with nursing at the bedside. Physical Exam Vital signs: Vital Signs 01/27/18 12:00 01/27/18 12:18 01/27/18 14:00 Temperature 97.9 F Pulse Rate 104 H 103 H 109 H Respiratory Rate 25 H 22 Blood Pressure 119/80 Pulse Oximetry 87 L 01/27/18 16:00 01/27/18 16:15 01/27/18 18:00 Temperature 97.7 F Pulse Rate 103 H 104 H 103 H Respiratory Rate 23 24 Blood Pressure 145/68 H Pulse Oximetry 91 L 01/27/18 20:00 01/27/18 20:38 01/27/18 21:08 Temperature 98 F Pulse Rate 103 H 102 H Respiratory Rate 15 17 Blood Pressure 122/75 Pulse Oximetry 94 L 96 96 01/27/18 22:00 01/28/18 00:00 01/28/18 02:00 Temperature 97.8 F Pulse Rate 108 H 107 H 106 H Respiratory Rate 16 Blood Pressure 143/78 H Pulse Oximetry 92 L 01/28/18 04:00 01/28/18 06:00 01/28/18 08:25 Temperature 98 F Pulse Rate 101 H 101 H 99 H Respiratory Rate 16 14 Blood Pressure 115/70 Pulse Oximetry 93 L 93 L 01/28/18 11:14 Temperature Pulse Rate 101 H Respiratory Rate 12 Blood Pressure Pulse Oximetry 91 L Intake & Output 01/27/18 01/28/18 01/28/18 18:59 06:59 18:59 Intake Total 410 / 410 350 / 350 Output Total 125 / 125 25 / 25 Balance 285 / 285 325 / 325 Weight 96.5 kg Intake: IV 50 / 50 50 / 50 Zosyn 2.25 GM Premix 50 ML @ 50 / 50 50 / 50 100 mls/hr IV.SIG Q12H PEDRO Rx#: [id number] Oral 360 / 360 300 / 300 Output: Urine 125 / 125 25 / 25 Other: # Voids 1 Date of Last Bowel Movement 01/24/18 01/28/18 # Bowel Movements 0 1 Narrative: GENERAL: No acute distress. HEENT: NC, AT. CARDIOVASCULAR: Irregularly irregular rhythm. RESPIRATORY: No accessory muscle use. Crackles at the bases. GASTROINTESTINAL: Abdomen soft, non-tender, nondistended. Hepatic and splenic margins not palpable. Decreased bowel sounds. MUSCULOSKELETAL: Extremities without clubbing, cyanosis, mild edema. No obvious deformities. Cath site without hematoma. NEUROLOGICAL: Awake and alert. No obvious cranial nerve deficits. Results - Labs CBC & Chem 7: 01/28/18 06:38 01/28/18 06:38 Laboratory Results - last 24 hr 01/27/18 01/28/18 01/28/18 11:47 06:38 06:38 WBC RBC Hgb Hct MCV MCH MCHC RDW Plt Count MPV PT 16.9 H 15.7 H INR 1.7 1.6 Sodium 138 Potassium 4.7 Chloride 98 Carbon Dioxide 28.2 Anion Gap 12 BUN 56 H Creatinine 7.96 H Estimated GFR 7 L Random Glucose 140 H Calcium 8.8 Phosphorus 4.2 Albumin 3.1 L 01/28/18 06:38 WBC 10.3 RBC 3.87 L Hgb 10.8 L Hct 33.9 L MCV 87.6 MCH 28.0 MCHC 31.9 L RDW 16.4 Plt Count 205 MPV 8.9 PT INR Sodium Potassium Chloride Carbon Dioxide Anion Gap BUN Creatinine Estimated GFR Random Glucose Calcium Phosphorus Albumin Assessment and Plan - Assessment (1) Atrial fibrillation with RVR Code(s): I48.91 - Unspecified atrial fibrillation Status: Acute (2) Chest pain Code(s): R07.9 - Chest pain, unspecified Status: Acute (3) ESRD (end stage renal disease) on dialysis Code(s): N18.6 - End stage renal disease; Z99.2 - Dependence on renal dialysis Status: Acute (4) CHF (congestive heart failure) Code(s): I50.9 - Heart failure, unspecified Status: Acute - Plan 72-year-old male admitted with new onset A. fib with RVR, rate initially very difficult to control due to issues of hypotension. Rate is now controlled. Patient to undergo heart catheterization for persistent chest pain. Afib w/ RVR New Onset. Patient was admitted about a month ago for SVT. Cardiogenic shock on 01/18: Became Hypotensive after receiving Bystolic. This was discontinued and patient was started on Midodrine. - Appreciate Cardiology input. Continue Amiodarone. Beta ruth on hold s/t hypotension. - Patient started on Coumadin per cardiology. On heparin gtt and Coumadin. Hypotension Lopressor was changed to Coreg. - hold Coreg and monitor. - small boluses if needed. - would resume Lopressor if blood pressure becomes stable. CHF ?Diastolic. Echo 12/10/17 w/ EF 55%, BNP 1096 on admission. Suspect persistent tachyarrhythmia could have contributed to elevated BNP. CXR indicative of pulmonary congestion. - Monitor I/O. - continue cardiac regimen and follow-up with cardiology. - volume management with dialysis. Chest pain/ CAD Improved. Cardiac enzymes negative. S/p cath 01/26 which revealed: Moderate two- vessel coronary artery disease with mild left main disease. - medical management per cardiology. - palliative care consult requested. ESRD On HD: M/W/F, s/p LUE AV Fistula 12/17/[address] Hutson, Permacath placed . - Appreciate nephrology following. Continue hemodialysis as scheduled. Acute respiratory failure The pt has been requiring 6L NC. CXR indicative of pulmonary congestion. Pulmonology consult appreciated. - continue albuterol nebs. - continue Symbicort. - volume management with dialysis. - pulmonology started IV Solumedrol. - added vancomycin and Zosyn 01/24. - encourage ambulation. Constipation Ongoing. - continue bowel regimen. - Suppository, enema if needed. DVT PPx: Heparin gtt (4) CHF (congestive heart failure) Qualifiers: Heart failure type: unspecified Heart failure chronicity: unspecified Qualified Code(s): I50.9 - Heart failure, unspecified
--- NOTE | 2018-01-28 13:46 | P.PNCA ---
Subjective Interval history: alert in nad Physical Exam Vital signs: Vital Signs 01/27/18 14:00 01/27/18 16:00 01/27/18 16:15 Temperature 97.7 F Pulse Rate 109 H 103 H 104 H Respiratory Rate 23 24 Blood Pressure 145/68 H Pulse Oximetry 91 L 01/27/18 18:00 01/27/18 20:00 01/27/18 20:38 Temperature 98 F Pulse Rate 103 H 103 H Respiratory Rate 15 Blood Pressure 122/75 Pulse Oximetry 94 L 96 01/27/18 21:08 01/27/18 22:00 01/28/18 00:00 Temperature 97.8 F Pulse Rate 102 H 108 H 107 H Respiratory Rate 17 16 Blood Pressure 143/78 H Pulse Oximetry 96 92 L 01/28/18 02:00 01/28/18 04:00 01/28/18 06:00 Temperature 98 F Pulse Rate 106 H 101 H 101 H Respiratory Rate 16 Blood Pressure 115/70 Pulse Oximetry 93 L 01/28/18 08:00 01/28/18 08:25 01/28/18 10:00 Temperature 98.1 F Pulse Rate 101 H 99 H 111 H Respiratory Rate 14 Blood Pressure Pulse Oximetry 93 L 01/28/18 11:14 01/28/18 11:30 01/28/18 12:00 Temperature Pulse Rate 101 H 96 H Respiratory Rate 12 Blood Pressure Pulse Oximetry 91 L 95 Intake & Output 01/27/18 01/28/18 01/28/18 18:59 06:59 18:59 Intake Total 410 / 410 350 / 350 Output Total 125 / 125 25 / 25 Balance 285 / 285 325 / 325 Weight 96.5 kg Intake: IV 50 / 50 50 / 50 Zosyn 2.25 GM Premix 50 ML @ 50 / 50 50 / 50 100 mls/hr IV.SIG Q12H PEDRO Rx#: [id number] Oral 360 / 360 300 / 300 Output: Urine 125 / 125 25 / 25 Other: # Voids 1 Date of Last Bowel Movement 01/24/18 01/28/18 01/28/18 # Bowel Movements 0 1 Assessment and Plan - Assessment (1) Atrial fibrillation with rapid ventricular response Code(s): I48.91 - Unspecified atrial fibrillation Status: Acute (2) CHF (congestive heart failure) Code(s): I50.9 - Heart failure, unspecified Status: Acute (3) Chronic kidney disease with end stage renal failure on dialysis Code(s): N18.6 - End stage renal disease; Z99.2 - Dependence on renal dialysis Status: Acute (4) Atrial fibrillation with RVR Code(s): I48.91 - Unspecified atrial fibrillation Status: Acute (5) ESRD (end stage renal disease) on dialysis Code(s): N18.6 - End stage renal disease; Z99.2 - Dependence on renal dialysis Status: Acute - Plan 1.) Afib with rvr - Dr Weinberg started amio and coumadin, rates improved, below 100 's, coumadin restarted, d/w Dr Weinberg, he will see patient and readjust meds as needed; intolernat of coreg due to hypotension, will increase amio to 200 mg tid , Dr Weinberg to f/u, d/w patient and nurse at bedside 2.) CAD - continue, lipitor, coumadin, f/u inr in am (2) CHF (congestive heart failure) Qualifiers: Heart failure type: unspecified Heart failure chronicity: unspecified Qualified Code(s): I50.9 - Heart failure, unspecified
--- NOTE | 2018-01-28 14:58 | P.CONPAL ---
Consult Service: Palliative Care Requesting Physician: Ze Mark Reason for Consult: a. To assist with evaluation and management of symptoms including: Constipation , dyspnea b. To assist medical decision maker(s) with: better understanding of current medical conditions; weighing benefits/burdens of medical treatment options; making medical treatment decisions. Primary Care Provider: Physician 's [facility] History of Present Illness History of Present Illness: This is a 72-year-old male with a history of hypertension, DM 2, ESRD/HD on MWF , diastolic CHF and medical noncompliance, admitted 01/15/2018 from [facility] with a complaint of chest pain and dyspnea. He was found to be in atrial fibrillation with rapid ventricular response and given verapamil 2.5 mg IV 1 dose. After a short period of improvement, the patient became tachycardic again and received a second dose of verapamil which was ineffective in rate control or conversion. Data Analyst Etl Developer on-call, Dr. Leroy Waters, was contacted and recommended IV Lopressor 5 mg 3 doses and initiate oral Lopressor 25 mg by mouth every 6 hours. He Presenting labs showed WBC 7.8, hemoglobin 11.7, hematocrit 36.9, platelets 197 , PT 14.1, INR 1.4, sodium 139, potassium 4.3, BUN 44, creatinine 6.70, alkaline phosphatase 153, troponin less than 0.02, magnesium 2.3, T CK 33, B natruretic peptide 1096, TSH 0.684, free T4 1.56. Chest x-ray showed mild interstitial prominence without focal airspace opacities, slightly improved from 12/12/2017 with stable cardiomegaly. 2D echocardiogram shows ejection fraction of 50-55% with mildly dilated proximal ascending aorta, mild aortic dilation at the level of the sinuses of Valsalva, mild MR, aortic valve sclerosis and mild aortic valve regurgitation. He remained hypotensive with uncontrolled atrial fibrillation eventually requiring a critical care consultation for hypotension management. Beta- blockade was decreased to 25 mg every 6 hours, bystolic held, and low-dose digoxin was initiated for short-term. Amiodarone was continued with administration of magnesium sulfate, 2 g and midodrine 10 mg every 8 hours. Recommendation of KAYLYNN/cardioversion versus EP study was a consideration for management. On 01/26 he underwent left heart catheterization by Dr. Waters finding moderate two-vessel coronary artery disease and right dominant system with mild left main disease. Normal left ventricular systolic function with EF 60%, 60% proximal mid first obtuse marginal, 60% long mid left anterior descending lesion with smallest diameter identified as 3.5 mm. Medical management recommended. Review of Systems Cardiovascular: Reports chest pain with activity Respiratory: Reports shortness of breath Gastrointestinal: Reports constipation [facility] - History History Provided By: Patient - Medical History Medical History: Medical History (Last Updated 01/28/18 @ 17:29 by CRISTIANE Sesay) Agent orange exposure (Acute) SVT (supraventricular tachycardia) (Acute) Atrial fibrillation (Acute) ESRD (end stage renal disease) on dialysis (Chronic) Type 2 diabetes mellitus (Chronic) Hypertension (Chronic) Fistula CHF (congestive heart failure), NYHA class I - Surgical History Surgical History: Surgical History (Last Updated 01/28/18 @ 15:32 by CRISTIANE Sesay) H/O lithotripsy History of left knee surgery - Family History Family History: Family History (Last Updated 01/28/18 @ 17:30 by CRISTIANE Sesay) Brother Atrial fibrillation Brother Atrial fibrillation Brother Atrial fibrillation - Tobacco History Second Hand Smoke Exposure: No Tobacco Use In Past 30 Days: No Smoking Status: Former smoker Tobacco Type: Cigarettes (Quit smoking 10 years ago) - Alcohol History How Often Do You Have a Drink Containing Alcohol: Never - Substance Use History Substance History: No History of Abuse - Travel History History of Recent Travel: No Recent Travel in the [place] Within the Last 8 Weeks: No Recent Travel Out of the Country Within the Last 8 Weeks: No - Immunization History Tetanus Immunization: <5 Years Hx Influenza Vaccine This Season: No Medications and Allergies Active Medications: Active Medications Acetaminophen (Tylenol) 650 mg PO UNSCH PRN PRN Reason: SEE LABEL COMMENTS Albuterol (Duoneb Neb (Prn)) 1 ampul NEB Q2HR NEB PRN PRN Reason: DYSPNEA Last Admin: 01/24/18 12:52 Dose: 1 ampul Albuterol (Duoneb Neb (Edgar)) 1 ampul NEB Q4HR NEB EDGAR Last Admin: 01/28/18 11:13 Dose: 1 ampul Amiodarone HCl (Cordarone) 200 mg PO Q12HR EDGAR Last Admin: 01/28/18 08:58 Dose: 200 mg Aspirin (Ecotrin) 81 mg PO DAILY [facility]GAR Last Admin: 01/28/18 08:58 Dose: 81 mg Atorvastatin Calcium (Lipitor) 80 mg PO DAILY [facility] Last Admin: 01/28/18 08:58 Dose: 80 mg Bisacodyl (Dulcolax Supp) 10 mg RECTAL DAILY PRN PRN Reason: SEVERE CONSITIPATION Last Admin: 01/28/18 05:14 Dose: 10 mg Budesonide/Formoterol Fumarate (Symbicort 160/4.5 Mcg Inh) 2 puff INH BID [facility] Last Admin: 01/28/18 11:35 Dose: 2 puff Buspirone HCl (Buspar) 5 mg PO DAILY [facility] Last Admin: 01/28/18 08:58 Dose: 5 mg Carvedilol (Coreg) 25 mg PO BID [facility] Last Admin: 01/28/18 08:59 Dose: 25 mg Diphenhydramine HCl (Benadryl) 25 mg PO UNSCH PRN PRN Reason: SEE LABEL COMMENTS Epoetin Yovanny (Epogen Inj) 10,000 unit IV.PUSH MOWEFR [facility] Last Admin: 01/26/18 08:41 Dose: 10,000 unit Gelatin (Gelfoam 12 Mm/7 Mm Topical) 1 foam TOPICAL PRN PRN PRN Reason: help stop bleeding from site Gentamicin Sulfate (Gentamicin Inj) 20 mg OTHER WITH DIALYSIS PRN PRN Reason: Dwell Gentamycin Lock Last Admin: 01/26/18 08:42 Dose: 20 mg Heparin Sodium (Porcine) (Heparin Inj) 8,000 units OTHER WITH DIALYSIS PRN PRN Reason: for machine prime Heparin Sodium (Porcine) (Heparin Inj) 1,000 units OTHER WITH DIALYSIS PRN PRN Reason: Dwell Heparin to Fill Catheter Last Admin: 01/26/18 08:42 Dose: 1,000 units Piperacillin/Tazobactam/Dextrose (Zosyn 2.25 Gm Premix) 50 mls @ 100 mls/hr IV.SIG Q12H [facility] Last Admin: 01/28/18 11:35 Dose: 100 mls/hr Pharmacy Profile Note (Coumadin Consult Pharmacy) 0 mls @ 0 mls/hr OTHER UNSCH [facility] Albumin Human (Flexbumin 25% Inj) 100 mls @ 60 mls/hr IV.SIG WITH DIALYSIS PRN PRN Reason: hypotension / volume replace Last Infusion: 01/16/18 19:49 Dose: Infused Sodium Chloride (Ns Inj) 1,000 mls @ 0 mls/hr OTHER .Q0M PRN PRN Reason: for prime and rinse back Last Admin: 01/24/18 19:04 Dose: 300 mls/hr Sodium Chloride (Ns Inj) 1,000 mls @ 0 mls/hr IV.CONT .Q0M PRN PRN Reason: hypotension / volume replace Sodium Chloride (Ns Inj) 1,000 mls @ 200 mls/hr OTHER .Q5H PRN PRN Reason: for dialyzer flush PRN Lactulose (Lactulose Liq) 30 ml PO DAILY PRN PRN Reason: SEVERE CONSITIPATION Last Admin: 01/28/18 09:04 Dose: 30 ml Mannitol (Mannitol Inj) 12.5 gm IV.PUSH UNSCH PRN PRN Reason: hypotension / volume replace Midodrine (Proamatine) 10 mg PO Q8HR [facility] Last Admin: 01/28/18 05:13 Dose: 10 mg Morphine Sulfate (Morphine Inj) 2 mg IV.PUSH Q4H PRN PRN Reason: BREAKTHROUGH PAIN Last Admin: 01/24/18 04:14 Dose: 2 mg Multivitamins (Theragran) 1 tab PO DAILY [facility] Last Admin: 01/28/18 08:58 Dose: 1 tab Nitroglycerin (Nitrostat Sl) 0.4 mg SL Q5M PRN PRN Reason: CHEST PAIN Last Admin: 01/23/18 16:49 Dose: 0.4 mg Ondansetron HCl (Zofran Odt) 4 mg SL Q6H PRN PRN Reason: NAUSEA OR VOMITING Last Admin: 01/23/18 21:02 Dose: 4 mg Oxycodone HCl (Roxicodone) 5 mg PO Q4H PRN PRN Reason: pain 3-10 Last Admin: 01/23/18 18:41 Dose: 5 mg Prochlorperazine Edisylate (Compazine Inj) 5 mg IV.PUSH Q4H PRN PRN Reason: NAUSEA OR VOMITING Last Admin: 01/24/18 04:15 Dose: 5 mg Senna/Docusate Sodium (Yasmine-Colace) 1 tab PO BID [facility] Last Admin: 01/28/18 08:59 Dose: 1 tab Sennosides (Senokot) 17.2 mg PO Q12H PRN PRN Reason: Moderate Constipation Last Admin: 01/24/18 04:25 Dose: 17.2 mg Sodium Chloride (Ns Flush) 2 ml IV.FLUSH BID [facility] Last Admin: 01/28/18 11:34 Dose: 2 ml Sodium Chloride (Ns Flush) 2 ml IV.FLUSH PRN PRN PRN Reason: FLUSH AFTER USING IV ACCESS Sodium Chloride (Ns Flush) 5 ml IV.FLUSH PRN PRN PRN Reason: flush each lumen during HD Last Admin: 01/19/18 20:09 Dose: 5 ml Temazepam (Restoril) 15 mg PO HS PRN PRN Reason: INSOMNIA Warfarin Sodium (Coumadin) 4 mg PO DAILY@1600 [facility] Last Admin: 01/27/18 16:30 Dose: 4 mg Warfarin Sodium (Coumadin) 1 mg PO ONCE ONE Stop: 01/28/18 16:01 Allergies Allergy/AdvReac Type Severity Reaction Status Date / Time No Known Allergies Allergy Unverified 01/15/18 18:21 Home Medications Medication Instructions Recorded Confirmed Type aspirin [Aspir-81] 81 mg PO DAILY 01/15/18 01/15/18 History atorvastatin 80 mg PO DAILY 01/15/18 01/15/18 History budesonide-formoterol [Symbicort] 2 puff INHALATION BID 01/15/18 01/15/18 History buspirone 5 mg PO DAILY 01/15/18 01/15/18 History carvedilol [Coreg] 3.125 mg PO BID 01/15/18 01/15/18 History ergocalciferol (vitamin D2) 50,000 unit PO QWEEK 01/15/18 01/15/18 History [Vitamin D2] furosemide 80 mg PO DAILY 01/15/18 01/15/18 History hydralazine 25 mg PO BID 01/15/18 01/15/18 History multivitamin 1 tab PO DAILY 01/15/18 01/15/18 History Advance Directives Living Will: No Healthcare Surrogate: No Power of Cigarette Machine Operator: No Physical Exam Vital Signs: Vital Signs - 24 hr 01/27/18 14:00 01/27/18 16:00 01/27/18 16:15 Temperature 97.7 F Pulse Rate 109 H 103 H 104 H Respiratory Rate 23 24 Blood Pressure 145/68 H Pulse Oximetry 91 L 01/27/18 18:00 07/31/18 20:00 01/27/18 20:38 Temperature 98 F Pulse Rate 103 H 103 H Respiratory Rate 15 Blood Pressure 122/75 Pulse Oximetry 94 L 96 01/27/18 21:08 01/27/18 22:00 01/28/18 00:00 Temperature 97.8 F Pulse Rate 102 H 108 H 107 H Respiratory Rate 17 16 Blood Pressure 143/78 H Pulse Oximetry 96 92 L 01/28/18 02:00 01/28/18 03:00 01/28/18 04:00 Temperature 98 F Pulse Rate 106 H 101 H 101 H Respiratory Rate 16 16 Blood Pressure 115/70 Pulse Oximetry 89 L 93 L 01/28/18 05:00 01/28/18 06:00 01/28/18 06:31 Temperature Pulse Rate 95 H 101 H 105 H Respiratory Rate 17 19 16 Blood Pressure 121/67 113/74 Pulse Oximetry 94 L 84 L 82 L 01/28/18 07:00 01/28/18 08:00 01/28/18 08:25 Temperature 98.1 F Pulse Rate 102 H 101 H 99 H Respiratory Rate 16 16 14 Blood Pressure 139/70 135/69 Pulse Oximetry 83 L 93 L 93 L 01/28/18 09:00 01/28/18 10:00 01/28/18 11:00 Temperature Pulse Rate 106 H 111 H 104 H Respiratory Rate 17 24 16 Blood Pressure 135/79 129/61 81/53 L Pulse Oximetry 86 L 80 L 80 L 01/28/18 11:06 01/28/18 11:08 01/28/18 11:14 Temperature Pulse Rate 103 H 100 H 101 H Respiratory Rate 18 23 12 Blood Pressure 86/52 L 83/52 L Pulse Oximetry 81 L 86 L 91 L 01/28/18 11:15 01/28/18 11:30 01/28/18 11:33 Temperature Pulse Rate 100 H 98 H 98 H Respiratory Rate 18 18 21 Blood Pressure 91/55 L 87/51 L 77/40 L Pulse Oximetry 95 92 L 95 01/28/18 11:34 01/28/18 11:38 01/28/18 11:45 Temperature Pulse Rate 96 H 98 H 98 H Respiratory Rate 16 16 8 L Blood Pressure 86/53 L 89/50 L 92/54 L Pulse Oximetry 95 93 L 96 01/28/18 12:00 08/01/18 12:15 01/28/18 12:30 Temperature 97.7 F Pulse Rate 96 H 97 H 97 H Respiratory Rate 13 17 12 Blood Pressure 93/55 L 98/53 L 106/58 L Pulse Oximetry 97 96 97 01/28/18 12:45 01/28/18 13:00 01/28/18 13:15 Temperature Pulse Rate 93 H 97 H 95 H Respiratory Rate 16 18 20 Blood Pressure 112/58 L 110/56 L 107/62 Pulse Oximetry 97 96 89 L 01/28/18 13:30 01/28/18 13:45 Temperature Pulse Rate 94 H 99 H Respiratory Rate 17 16 Blood Pressure 98/53 L 97/57 L Pulse Oximetry 88 L 86 L I&O: Intake & Output 01/26/18 01/27/18 01/28/18 01/29/18 06:59 06:59 06:59 06:59 Intake Total 840 / 840 520 / 520 760 / 760 Output Total 100 / 100 2695 / 2695 150 / 150 Balance 740 / 740 -2175 / -2175 610 / 610 Weight 200 lb 9.93 oz 213 lb 13.574 oz 212 lb 11.937 oz Physical Exam: CONSTITUTIONAL/GENERAL: This is an adequately nourished patient, in no apparent distress. TUBES/LINES/DRAINS: Right subclavian Vas-Cath, right hand PIV SKIN: No jaundice, rashes, or lesions. Ecchymoses on upper extremities. No wounds seen anteriorly. Skin temperature appropriate. Not diaphoretic. HEAD: Atraumatic. Normocephalic. EYES: Pupils equal and round and reactive. Extraocular motions intact. No scleral icterus. No injection or drainage. Fundi not examined. ENT: Hearing grossly normal. Nose without bleeding or purulent drainage. Throat without visible erythema, exudates, masses, or lesions. NECK: Trachea midline. Supple, nontender. No palpable thyroid enlargement or nodularity. CARDIOVASCULAR: S1, S2, irregular rhythm, controlled rate, no rub murmur or gallop. RESPIRATORY/CHEST: Diminished breath sounds with bibasilar crackles, no rhonchi or wheezes. GASTROINTESTINAL: Abdomen soft, non-tender, nondistended. No hepato-splenomegaly , or palpable masses. No guarding. Bowel sounds present. GENITOURINARY: Without palpable bladder distension. Linton catheter in place. MUSCULOSKELETAL: Extremities without clubbing, cyanosis, or edema. No joint tenderness or effusion noted. No calf tenderness. No mottling or clubbing. LYMPHATICS: No palpable cervical or supraclavicular adenopathy. NEUROLOGICAL: Awake and alert. Motor and sensory grossly within normal limits. Follows commands. Cognitively sharp. Moves all extremities. PSYCHIATRIC: Appears anxious. Diagnostic Tests Laboratory: Laboratory Results - last 72 hr 01/26/18 01/26/18 01/26/18 07:00 07:00 07:00 WBC 3.8 L RBC 3.83 L Hgb 10.5 L Hct 33.1 L MCV 86.3 MCH 27.5 MCHC 31.8 L RDW 16.1 Plt Count 186 MPV 8.9 PT 17.0 H INR 1.7 APTT Sodium 135 L Potassium 4.9 Chloride 96 L Carbon Dioxide 30.5 Anion Gap 9 BUN 52 H Creatinine 8.26 H Estimated GFR 6 L POC Glucose Random Glucose 232 H Calcium 8.8 Phosphorus Albumin Random Vancomycin 13.8 01/26/18 01/27/18 01/27/18 14:16 00:08 03:54 WBC RBC Hgb Hct MCV MCH MCHC RDW Plt Count MPV PT 17.4 H INR 1.7 APTT 63.4 H Sodium Potassium Chloride Carbon Dioxide Anion Gap BUN Creatinine Estimated GFR POC Glucose 232 H Random Glucose Calcium Phosphorus Albumin Random Vancomycin 01/27/18 01/27/18 01/28/18 03:54 11:47 06:38 WBC 10.1 D RBC 3.72 L Hgb 10.4 L Hct 32.1 L MCV 86.4 MCH 27.9 MCHC 32.3 RDW 16.5 Plt Count 188 MPV 8.8 PT 16.9 H 15.7 H INR 1.7 1.6 APTT Sodium Potassium Chloride Carbon Dioxide Anion Gap BUN Creatinine Estimated GFR POC Glucose Random Glucose Calcium Phosphorus Albumin Random Vancomycin 01/28/18 01/28/18 06:38 06:38 WBC 10.3 RBC 3.87 L Hgb 10.8 L Hct 33.9 L MCV 87.6 MCH 28.0 MCHC 31.9 L RDW 16.4 Plt Count 205 MPV 8.9 PT INR APTT Sodium 138 Potassium 4.7 Chloride 98 Carbon Dioxide 28.2 Anion Gap 12 BUN 56 H Creatinine 7.96 H Estimated GFR 7 L POC Glucose Random Glucose 140 H Calcium 8.8 Phosphorus 4.2 Albumin 3.1 L Random Vancomycin Result Diagrams: 01/28/18 06:38 01/28/18 06:38 Microbiology: Microbiology 01/24/18 13:40 Gram Stain - Final Sputum - Expectorated Sputum Sputum Culture - Final Heavy growth normal respiratory marielos Imaging: Chest X-Ray 01/15/18 18:13 CONCLUSION: Mild interstitial prominence without focal airspace opacities. Slight improvement prior 12/12/2017. Stable cardiomegaly. Chest X-Ray 01/23/18 09:37 CONCLUSION: Mild interval increase in interstitial opacities of concern for pulmonary edema. Abdomen X-Ray 01/23/18 23:05 CONCLUSION: 1. Nonobstructive bowel gas pattern. Chest X-Ray 01/24/18 08:50 CONCLUSION: No appreciable change. Chest X-Ray 01/25/18 09:25 CONCLUSION: No significant change. Procedures: 01/26: Cardiac catheterization Patient/Family Conference Issues Discussed: * Palliative care role, purpose, approach * Additional medical, psychosocial, and spiritual history * Patients general health, functional status, and cognitive changes in the months leading up to the current hospitalization * Patient/family understanding of the current medical problems * Patient/family understanding of prognosis * Patients goals of care as best understood from advance directives and/or conversations and/or values * Current medical treatment options and benefits/burdens of those options * Likely scenarios comparing ongoing aggressive care with a transition to comfort measures only * Questions answered to the best of my ability * Palliative care contact information provided Assessment and Plan - Disease Oriented Problem List (1) Atrial fibrillation with rapid ventricular response (2) Chronic kidney disease with end stage renal failure on dialysis Pertinent Non-Medical Issues: Psychosocial:He was born in [place] but has been in [place] for many years , 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 Spiritual:Cardiac/Vascular Sonographer available. Legal:His daughter, Dinorah Greer, is his healthcare decision maker. Ethical issues impacting care: None noted. Important Contacts: Daughter: Dinorah Greer . Prognosis: His prognosis is guarded. He is short of breath at rest, remains in atrial fib , rate reasonably well controlled. He continues to complain of chest pain and given his recent left heart catheterization showing mild to moderate coronary disease, this is unlikely to be caused by anginal pain. He has end-stage renal disease, diabetes, hypertension and is at risk for further complications and decline. . Code Status: Full Code Plan: PLAN: Legal decision maker: The patient is capacitated to make his own decisions however requests assisted decision making with his daughter, iDnorah Greer. At this time he is too uncomfortable and symptomatic to complete his healthcare surrogate. Goals: Aggressive CODE STATUS: FULL CODE SYMPTOMS: * Constipation: He received lactulose today and is currently having a bowel movement. * Dyspnea: Multifactorial to include past history of smoking, atrial fibrillation, as well as agent orange exposure in [place]. He is being followed by pulmonology. He is requiring increased oxygen this afternoon to maintain saturations, now on a facemask. SUMMARY This is a 72-year-old male with end-stage renal disease, on dialysis for the last 2 months was now developed atrial fibrillation. He does have a family history of atrial fibrillation in 3 of his family members who all required AV node ablation and pacemaker for management. He remains in atrial fib despite administration of digoxin and high-dose amiodarone. Following up with electrophysiology, Dr. Weinberg, to determine further course per request from the daughter. Palliative care will continue to follow the patient during hospital course as condition evolves, to assist patient/decision-maker with understanding of their medical conditions, weighing benefits/burdens of treatment options, for clarification of goals of treatment. Additionally will assist with any symptoms of palliative concern. . Appreciation Thank you for the opportunity to participate in the care of Angel Constantino. Attestation Attestation: To help prompt me to consider important information that might be impacting today's encounter and assessment, information from prior notes written by myself or my colleagues may have been "brought forward" into today's note. My signature on this note, however, is an attestation that I personally performed the exam, history, and/or decision-making noted today, and, unless otherwise indicated, the interactions with patient, family, and staff as well as the review of records all occurred today. I also attest that the listed assessment and stated plan reflect my best clinical judgment today based on the combination of historical information, prior notes, and today's exam/ interactions. When time spent is documented, it refers only to time spent today by the signer, or if indicated, combined time spent today by collaborating physician/nurse practitioner. .
[2018-01-28] MEDS: Morphine Inj 4 MG/ML Vial IV.PUSH PRN (20:05)
--- NOTE | 2018-01-28 20:31 | P.PN ---
Subjective Interval history: alert on o2 via mask NAD Physical Exam Vital signs: Vital Signs 01/27/18 20:38 01/27/18 21:08 01/27/18 22:00 Temperature Pulse Rate 102 H 108 H Respiratory Rate 17 Blood Pressure Pulse Oximetry 96 96 01/28/18 00:00 01/28/18 02:00 01/28/18 03:00 Temperature 97.8 F Pulse Rate 107 H 106 H 101 H Respiratory Rate 16 16 Blood Pressure 143/78 H Pulse Oximetry 92 L 89 L 01/28/18 04:00 01/28/18 05:00 01/28/18 06:00 Temperature 98 F Pulse Rate 101 H 95 H 101 H Respiratory Rate 16 17 19 Blood Pressure 115/70 121/67 Pulse Oximetry 93 L 94 L 84 L 01/28/18 06:31 01/28/18 07:00 01/28/18 08:00 Temperature 98.1 F Pulse Rate 105 H 102 H 101 H Respiratory Rate 16 16 16 Blood Pressure 113/74 139/70 135/69 Pulse Oximetry 82 L 83 L 93 L 01/28/18 08:25 01/28/18 09:00 01/28/18 10:00 Temperature Pulse Rate 99 H 106 H 111 H Respiratory Rate 14 17 24 Blood Pressure 135/79 129/61 Pulse Oximetry 93 L 86 L 80 L 01/28/18 11:00 01/28/18 11:06 01/28/18 11:08 Temperature Pulse Rate 104 H 103 H 100 H Respiratory Rate 16 18 23 Blood Pressure 81/53 L 86/52 L 83/52 L Pulse Oximetry 80 L 81 L 86 L 01/28/18 11:14 01/28/18 11:15 01/28/18 11:30 Temperature Pulse Rate 101 H 100 H 98 H Respiratory Rate 12 18 18 Blood Pressure 91/55 L 87/51 L Pulse Oximetry 91 L 95 92 L 01/28/18 11:33 01/28/18 11:34 01/28/18 11:38 Temperature Pulse Rate 98 H 96 H 98 H Respiratory Rate 21 16 16 Blood Pressure 77/40 L 86/53 L 89/50 L Pulse Oximetry 95 95 93 L 01/28/18 11:45 01/28/18 12:00 01/28/18 12:15 Temperature 97.7 F Pulse Rate 98 H 96 H 97 H Respiratory Rate 8 L 13 17 Blood Pressure 92/54 L 93/55 L 98/53 L Pulse Oximetry 96 97 96 01/28/18 12:30 01/28/18 12:45 01/28/18 13:00 Temperature Pulse Rate 97 H 93 H 97 H Respiratory Rate 12 16 18 Blood Pressure 106/58 L 112/58 L 110/56 L Pulse Oximetry 97 97 96 01/28/18 13:15 01/28/18 13:30 01/28/18 13:45 Temperature Pulse Rate 95 H 94 H 99 H Respiratory Rate 20 17 16 Blood Pressure 107/62 98/53 L 97/57 L Pulse Oximetry 89 L 88 L 86 L 01/28/18 14:00 01/28/18 14:15 01/28/18 14:30 Temperature Pulse Rate 102 H 102 H 99 H Respiratory Rate 23 22 13 Blood Pressure 98/57 L 98/56 L 99/57 L Pulse Oximetry 87 L 84 L 87 L 01/28/18 14:45 01/28/18 15:00 01/28/18 15:15 Temperature Pulse Rate 95 H 86 104 H Respiratory Rate 21 17 27 H Blood Pressure 98/67 L 104/59 L 106/59 L Pulse Oximetry 85 L 84 L 81 L 01/28/18 15:30 01/28/18 15:45 01/28/18 15:48 Temperature Pulse Rate 97 H 96 H 89 Respiratory Rate 22 16 29 H Blood Pressure 109/65 86/51 L 89/55 L Pulse Oximetry 85 L 84 L 83 L 01/28/18 16:00 01/28/18 16:14 01/28/18 16:15 Temperature 98.0 F Pulse Rate 102 H 101 H 102 H Respiratory Rate 26 H 22 18 Blood Pressure 104/59 L 108/59 L Pulse Oximetry 94 L 96 01/28/18 16:30 01/28/18 16:38 01/28/18 16:46 Temperature Pulse Rate 107 H 109 H Respiratory Rate 17 26 H Blood Pressure 107/53 L 104/58 L 117/69 Pulse Oximetry 83 L 82 L 01/28/18 17:12 01/28/18 17:15 01/28/18 17:30 Temperature Pulse Rate 106 H 105 H 107 H Respiratory Rate 23 22 21 Blood Pressure 80/51 L 115/67 111/60 Pulse Oximetry 86 L 87 L 90 L 01/28/18 17:45 01/28/18 18:00 01/28/18 18:15 Temperature Pulse Rate 104 H 103 H 101 H Respiratory Rate 27 H 21 16 Blood Pressure 100/58 L 118/67 143/66 H Pulse Oximetry 84 L 88 L 92 L 01/28/18 18:30 01/28/18 18:45 01/28/18 19:00 Temperature Pulse Rate 107 H 104 H 104 H Respiratory Rate 17 15 39 H Blood Pressure 127/64 138/68 103/59 L Pulse Oximetry 89 L 89 L 86 L 01/28/18 19:15 Temperature Pulse Rate 106 H Respiratory Rate 19 Blood Pressure 111/56 L Pulse Oximetry 89 L Intake & Output 01/28/18 01/28/18 01/29/18 06:59 18:59 06:59 Intake Total 350 / 350 350 / 350 Output Total 25 / 2520 / 2520 Balance 325 / 325 -2170 / -2170 Weight 96.5 kg Intake: IV 50 / 50 Zosyn 2.25 GM Premix 50 ML @ 50 / 50 100 mls/hr IV.SIG Q12H PEDRO Rx#: [id number] Oral 300 / 300 350 / 350 Output: Urine 25 / 25 20 / 20 Hemodialysis Amount 2500 / 2500 Other: # Voids 1 Date of Last Bowel Movement 01/28/18 01/28/18 # Bowel Movements 1 3 Narrative: GENERAL: No acute distress. HEENT: NC, AT. CARDIOVASCULAR: Irregularly irregular rhythm. RESPIRATORY: No accessory muscle use. Crackles at the bases. GASTROINTESTINAL: Abdomen soft, non-tender, nondistended. Hepatic and splenic margins not palpable. Decreased bowel sounds. MUSCULOSKELETAL: Extremities without clubbing, cyanosis, mild edema. No obvious deformities. Cath site without hematoma. NEUROLOGICAL: Awake and alert. No obvious cranial nerve deficits. Results - Labs CBC & Chem 7: 01/28/18 06:38 01/28/18 06:38 Laboratory Results - last 24 hr 01/28/18 01/28/18 01/28/18 06:38 06:38 06:38 WBC 10.3 RBC 3.87 L Hgb 10.8 L Hct 33.9 L MCV 87.6 MCH 28.0 MCHC 31.9 L RDW 16.4 Plt Count 205 MPV 8.9 PT 15.7 H INR 1.6 Sodium 138 Potassium 4.7 Chloride 98 Carbon Dioxide 28.2 Anion Gap 12 BUN 56 H Creatinine 7.96 H Estimated GFR 7 L Random Glucose 140 H Calcium 8.8 Phosphorus 4.2 Albumin 3.1 L Assessment and Plan - Plan RESPIRATORY FAILURE RENAL FAILURE ? COPD Chest pain for cardiac cath PLAN O2 NEEDED BRONCHODILATOR THERAPY INCREASE ACTIVITY taper steroids
[2018-01-29 06:12] LABS: INR 1.6 Ratio; Prothrombin Time 16.1 sec (9.8-11.6)
--- NOTE | 2018-01-29 08:14 | P.PNNP ---
Subjective Interval history: Coreg stopped due to hypotension. Amiodarone increased to TID. Heart rate in 90s. Had dialysis yesterday, 2500 ml removed. Physical Exam Vital signs: Vital Signs 01/28/18 08:25 01/28/18 09:00 01/28/18 10:00 Temperature Pulse Rate 99 H 106 H 111 H Respiratory Rate 14 17 24 Blood Pressure 135/79 129/61 Pulse Oximetry 93 L 86 L 80 L 01/28/18 11:00 01/28/18 11:06 01/28/18 11:08 Temperature Pulse Rate 104 H 103 H 100 H Respiratory Rate 16 18 23 Blood Pressure 81/53 L 86/52 L 83/52 L Pulse Oximetry 80 L 81 L 86 L 01/28/18 11:14 01/28/18 11:15 01/28/18 11:30 Temperature Pulse Rate 101 H 100 H 98 H Respiratory Rate 12 18 18 Blood Pressure 91/55 L 87/51 L Pulse Oximetry 91 L 95 92 L 01/28/18 11:33 01/28/18 11:34 01/28/18 11:38 Temperature Pulse Rate 98 H 96 H 98 H Respiratory Rate 21 16 16 Blood Pressure 77/40 L 86/53 L 89/50 L Pulse Oximetry 95 95 93 L 01/28/18 11:45 01/28/18 12:00 01/28/18 12:15 Temperature 97.7 F Pulse Rate 98 H 96 H 97 H Respiratory Rate 8 L 13 17 Blood Pressure 92/54 L 93/55 L 98/53 L Pulse Oximetry 96 97 96 01/28/18 12:30 01/28/18 12:45 01/28/18 13:00 Temperature Pulse Rate 97 H 93 H 97 H Respiratory Rate 12 16 18 Blood Pressure 106/58 L 112/58 L 110/56 L Pulse Oximetry 97 97 96 01/28/18 13:15 01/28/18 13:30 01/28/18 13:45 Temperature Pulse Rate 95 H 94 H 99 H Respiratory Rate 20 17 16 Blood Pressure 107/62 98/53 L 97/57 L Pulse Oximetry 89 L 88 L 86 L 01/28/18 14:00 01/28/18 14:15 01/28/18 14:30 Temperature Pulse Rate 102 H 102 H 99 H Respiratory Rate 23 22 13 Blood Pressure 98/57 L 98/56 L 99/57 L Pulse Oximetry 87 L 84 L 87 L 01/28/18 14:45 01/28/18 15:00 01/28/18 15:15 Temperature Pulse Rate 95 H 86 104 H Respiratory Rate 21 17 27 H Blood Pressure 98/67 L 104/59 L 106/59 L Pulse Oximetry 85 L 84 L 81 L 01/28/18 15:30 01/28/18 15:45 01/28/18 15:48 Temperature Pulse Rate 97 H 96 H 89 Respiratory Rate 22 16 29 H Blood Pressure 109/65 86/51 L 89/55 L Pulse Oximetry 85 L 84 L 83 L 01/28/18 16:00 01/28/18 16:14 01/28/18 16:15 Temperature 98.0 F Pulse Rate 102 H 101 H 102 H Respiratory Rate 26 H 22 18 Blood Pressure 104/59 L 108/59 L Pulse Oximetry 94 L 96 01/28/18 16:30 01/28/18 16:38 01/28/18 16:46 Temperature Pulse Rate 107 H 109 H Respiratory Rate 17 26 H Blood Pressure 107/53 L 104/58 L 117/69 Pulse Oximetry 83 L 82 L 01/28/18 17:12 01/28/18 17:15 01/28/18 17:30 Temperature Pulse Rate 106 H 105 H 107 H Respiratory Rate 23 22 21 Blood Pressure 80/51 L 115/67 111/60 Pulse Oximetry 86 L 87 L 90 L 01/28/18 17:45 01/28/18 18:00 01/28/18 18:15 Temperature Pulse Rate 104 H 103 H 101 H Respiratory Rate 27 H 21 16 Blood Pressure 100/58 L 118/67 143/66 H Pulse Oximetry 84 L 88 L 92 L 01/28/18 18:30 01/28/18 18:45 01/28/18 19:00 Temperature Pulse Rate 107 H 104 H 104 H Respiratory Rate 17 15 39 H Blood Pressure 127/64 138/68 103/59 L Pulse Oximetry 89 L 89 L 86 L 01/28/18 19:15 01/28/18 20:00 01/28/18 21:20 Temperature 98.5 F Pulse Rate 106 H 110 H 104 H Respiratory Rate 19 20 17 Blood Pressure 111/56 L 114/62 Pulse Oximetry 89 L 89 L 92 L 01/28/18 22:00 01/29/18 00:00 01/29/18 02:00 Temperature 98.6 F Pulse Rate 103 H 102 H 101 H Respiratory Rate 15 Blood Pressure 111/58 L Pulse Oximetry 97 01/29/18 04:00 01/29/18 06:00 Temperature 97.8 F Pulse Rate 96 H 97 H Respiratory Rate 16 Blood Pressure 99/55 L Pulse Oximetry 97 Intake & Output 01/28/18 01/29/18 01/29/18 18:59 06:59 18:59 Intake Total 400 / 400 250 / 250 Output Total 2520 / 2520 0 / 0 Balance -2120 / -2120 250 / 250 Weight 98.5 kg Intake: IV 50 / 50 Zosyn 2.25 GM Premix 50 ML @ 50 / 50 100 mls/hr IV.SIG Q12H PEDRO Rx#: [id number] Oral 350 / 350 250 / 250 Output: Urine 20 / 20 0 / 0 Hemodialysis Amount 2500 / 2500 Other: # Voids 1 Date of Last Bowel Movement 01/28/18 01/28/18 # Bowel Movements 3 2 - Constitutional no acute distress - Routine HEENT Exam Head: Present: normocephalic, atraumatic Eye: Present: EOMI, PERRL ENT: Present: mucous membranes moist - Routine Neck Exam Present: supple, full ROM. Absent: JVD - Routine Respiratory Exam Present: CTA bilaterally - Routine Cardiovascular Exam Present: S1, S2, irregularly irregular - Routine Abdominal Exam Present: soft, normoactive bowel sounds - Routine Extremities Exam Absent: edema - Routine Neurological Exam Present: alert, oriented X3 Assessment and Plan - Assessment (1) ESRD (end stage renal disease) on dialysis Code(s): N18.6 - End stage renal disease; Z99.2 - Dependence on renal dialysis Status: Acute Plan: Continue HD MWF. Monitor electrolytes intermittently. Avoid IVF administration Protect left arm from procedures, has new AV access that is not mature. PermCath in place for HD use. Phosphorus level acceptable without binder therapy. High protein low K diet ordered. Also on Supplements. (2) Atrial fibrillation with RVR Code(s): I48.91 - Unspecified atrial fibrillation Status: Acute Plan: Rate is variable. On PO Amiodarone Midodrine is ordered TID. Rate control measures. Cardiology following. KAYLYNN cardioversion AV ablation with pacemaker are other options. Cardiology to decide on best course of action. (3) CHF (congestive heart failure) Code(s): I50.9 - Heart failure, unspecified Status: Acute Qualifiers: Heart failure type: unspecified Heart failure chronicity: unspecified Qualified Code(s): I50.9 - Heart failure, unspecified Plan: Stable. EF noted to be around 60%. (4) Anemia in CKD (chronic kidney disease) Code(s): N18.9 - Chronic kidney disease, unspecified; D63.1 - Anemia in chronic kidney disease Status: Acute Plan: On Epogen with dialysis. Hemoglobin is acceptable.
--- NOTE | 2018-01-29 09:06 | P.PN ---
Subjective Interval history: ALERT NO SOB AT REST Physical Exam Vital signs: Vital Signs 01/28/18 10:00 01/28/18 11:00 01/28/18 11:06 Temperature Pulse Rate 111 H 104 H 103 H Respiratory Rate 24 16 18 Blood Pressure 129/61 81/53 L 86/52 L Pulse Oximetry 80 L 80 L 81 L 01/28/18 11:08 01/28/18 11:14 01/28/18 11:15 Temperature Pulse Rate 100 H 101 H 100 H Respiratory Rate 23 12 18 Blood Pressure 83/52 L 91/55 L Pulse Oximetry 86 L 91 L 95 01/28/18 11:30 01/28/18 11:33 01/28/18 11:34 Temperature Pulse Rate 98 H 98 H 96 H Respiratory Rate 18 21 16 Blood Pressure 87/51 L 77/40 L 86/53 L Pulse Oximetry 92 L 95 95 01/28/18 11:38 01/28/18 11:45 01/28/18 12:00 Temperature 97.7 F Pulse Rate 98 H 98 H 96 H Respiratory Rate 16 8 L 13 Blood Pressure 89/50 L 92/54 L 93/55 L Pulse Oximetry 93 L 96 97 01/28/18 12:15 01/28/18 12:30 01/28/18 12:45 Temperature Pulse Rate 97 H 97 H 93 H Respiratory Rate 17 12 16 Blood Pressure 98/53 L 106/58 L 112/58 L Pulse Oximetry 96 97 97 01/28/18 13:00 01/28/18 13:15 01/28/18 13:30 Temperature Pulse Rate 97 H 95 H 94 H Respiratory Rate 18 20 17 Blood Pressure 110/56 L 107/62 98/53 L Pulse Oximetry 96 89 L 88 L 01/28/18 13:45 01/28/18 14:00 01/28/18 14:15 Temperature Pulse Rate 99 H 102 H 102 H Respiratory Rate 16 23 22 Blood Pressure 97/57 L 98/57 L 98/56 L Pulse Oximetry 86 L 87 L 84 L 01/28/18 14:30 01/28/18 14:45 01/28/18 15:00 Temperature Pulse Rate 99 H 95 H 86 Respiratory Rate 13 21 17 Blood Pressure 99/57 L 98/67 L 104/59 L Pulse Oximetry 87 L 85 L 84 L 01/28/18 15:15 01/28/18 15:30 08/01/18 15:45 Temperature Pulse Rate 104 H 97 H 96 H Respiratory Rate 27 H 22 16 Blood Pressure 106/59 L 109/65 86/51 L Pulse Oximetry 81 L 85 L 84 L 01/28/18 15:48 01/28/18 16:00 01/28/18 16:14 Temperature 98.0 F Pulse Rate 89 102 H 101 H Respiratory Rate 29 H 26 H 22 Blood Pressure 89/55 L 104/59 L Pulse Oximetry 83 L 94 L 01/28/18 16:15 01/28/18 16:30 01/28/18 16:38 Temperature Pulse Rate 102 H 107 H Respiratory Rate 18 17 Blood Pressure 108/59 L 107/53 L 104/58 L Pulse Oximetry 96 83 L 01/28/18 16:46 01/28/18 17:12 01/28/18 17:15 Temperature Pulse Rate 109 H 106 H 105 H Respiratory Rate 26 H 23 22 Blood Pressure 117/69 80/51 L 115/67 Pulse Oximetry 82 L 86 L 87 L 01/28/18 17:30 01/28/18 17:45 01/28/18 18:00 Temperature Pulse Rate 107 H 104 H 103 H Respiratory Rate 21 27 H 21 Blood Pressure 111/60 100/58 L 118/67 Pulse Oximetry 90 L 84 L 88 L 01/28/18 18:15 01/28/18 18:30 01/28/18 18:45 Temperature Pulse Rate 101 H 107 H 104 H Respiratory Rate 16 17 15 Blood Pressure 143/66 H 127/64 138/68 Pulse Oximetry 92 L 89 L 89 L 01/28/18 19:00 01/28/18 19:15 01/28/18 20:00 Temperature 98.5 F Pulse Rate 104 H 106 H 110 H Respiratory Rate 39 H 19 20 Blood Pressure 103/59 L 111/56 L 114/62 Pulse Oximetry 86 L 89 L 89 L 01/28/18 21:20 01/28/18 22:00 01/29/18 00:00 Temperature 98.6 F Pulse Rate 104 H 103 H 102 H Respiratory Rate 17 15 Blood Pressure 111/58 L Pulse Oximetry 92 L 97 01/29/18 02:00 01/29/18 04:00 01/29/18 06:00 Temperature 97.8 F Pulse Rate 101 H 96 H 97 H Respiratory Rate 16 Blood Pressure 99/55 L Pulse Oximetry 97 01/29/18 08:27 01/29/18 08:34 Temperature Pulse Rate 97 H Respiratory Rate 20 Blood Pressure Pulse Oximetry 88 L Intake & Output 01/28/18 01/29/18 01/29/18 18:59 06:59 18:59 Intake Total 400 / 400 250 / 250 Output Total 2520 / 2520 0 / 0 Balance -2120 / -2120 250 / 250 Weight 98.5 kg Intake: IV 50 / 50 Zosyn 2.25 GM Premix 50 ML @ 50 / 50 100 mls/hr IV.SIG Q12H PEDRO Rx#: [id number] Oral 350 / 350 250 / 250 Output: Urine 20 / 20 0 / 0 Hemodialysis Amount 2500 / 2500 Other: # Voids 1 Date of Last Bowel Movement 01/28/18 01/28/18 # Bowel Movements 3 2 Narrative: GENERAL: No acute distress. HEENT: NC, AT. CARDIOVASCULAR: Irregularly irregular rhythm. RESPIRATORY: No accessory muscle use. Crackles at the bases. GASTROINTESTINAL: Abdomen soft, non-tender, nondistended. Hepatic and splenic margins not palpable. Decreased bowel sounds. MUSCULOSKELETAL: Extremities without clubbing, cyanosis, mild edema. No obvious deformities. Cath site without hematoma. NEUROLOGICAL: Awake and alert. No obvious cranial nerve deficits. Results - Labs CBC & Chem 7: 01/28/18 06:38 01/28/18 06:38 Laboratory Results - last 24 hr 01/29/18 05:35 PT 16.1 H INR 1.6 Assessment and Plan - Plan RESPIRATORY FAILURE RENAL FAILURE ? COPD Chest pain for cardiac cath PLAN O2 NEEDED BRONCHODILATOR THERAPY INCREASE ACTIVITY taper steroids
[2018-01-29] MEDS: Metoprolol Tartrate 25 MG Tablet PO SCH ×3 (09:14→21:05)
[2018-01-29] MEDS: Amiodarone 200 MG Tablet PO SCH (09:15)
[2018-01-29] MEDS: Senna/Docusate Sodium 8.6/50 MG Tablet PO SCH ×2 (09:16→21:05)
[2018-01-29 09:52] LABS: ABG Base Excess 5.6 mmol/L (-2-2); ABG PCO2 42 mmHg (38-42); ABG PO2 50 mmHG (61-120)
--- NOTE | 2018-01-29 10:43 | XR ---
EXAM DATE: 01/29/2018 10:41 AM EDT AGE/SEX: 72 years / Male INDICATIONS: Respiratory distress. CLINICAL DATA: This is the patient's subsequent encounter. Patient reports that signs and symptoms h ave been present for 4 - 6 days and indicates a pain score of Nonresponsive. MEDICAL/SURGICAL HISTORY: . Hypertension. Chronic obstructive pulmonary disease. Congestive hea rt failure. . Port. COMPARISON: [facility] – [place], CHEST 1V SINGLE AP, 01/25/2018. . FINDINGS: Diffuse interstitial prominence without new focal pleural or parenchymal opacities. Stable right IJ t unneled dialysis catheter. Mild cardiomegaly. Remainder of the exam is unchanged. CONCLUSION: 1. Stable cardiomegaly and mild positive fluid balance. 2. No significant interval change. Electronically signed by: Usama Cobian MD 01/29/2018 10:42 AM EDT
--- NOTE | 2018-01-29 13:15 | P.PNCC ---
Subjective Subjective Remarks/Hospital Course: This is a 72yM with history of ESRD on HD who was recently admitted last month for supraventricular tachycardia. It appears from the records that normal sinus rhythm was restored prior to discharge home. He re-presented to the hospital with atrial fibrillation with rapid ventricular response which has been poorly responsive to esmolol infusion. It is noted that there is still a shortage of diltiazem infusions, so none is available to place the patient on. Dr. Waters with cardiology was consulted, as was Dr. Weinberg. The patient has also had hypotension during this hospital stay with most blood pressure readings between 80-100 systolic. This morning, Bystolic was started and was given together with amiodarone 400mg and metoprolol 25mg po. Approximately 2 hours after this, his blood pressure dropped into the 60s and 70s systolic. I was consulted by Dr. Wilcox to evaluate and manage his hemodynamics in the setting of poorly-controlled atrial fibrillation and hypotension. The patient does complain of light-headedness and a little chest discomfort which is new since his blood pressure has dropped into the 70s. He denies any other complaints and tolerated breakfast this AM. ROS otherwise negative. troponins have been serially negative this admission. I performed bedside critical care echocardiography and compared this to images obtained from last hospital admission on 11/2017. Given the poorly controlled nature of the patient's rate, wall motion and accurate ejection fraction are difficult to assess with accuracy. It does appear that the patient has relatively preserved EF and at most only mildly depressed LVEF. Aortic valve is sclerotic but appears unchanged from prior echo which calculated the valve area at ~2cm. no pericardial effusion. IVC is dilated around 2cm without respiratory variation. heart rate on my evaluation is 121. 8/2: Critical care reconsulted by Dr. Weinberg for worsening respiratory failure. Patient dropped O2 sats to 84% on 6 L nasal cannula. When I evaluated patient he was resting in bed. Placed him on high flow nasal cannula 30 L/min 60% FiO2 with which his O2 sats came up to 90%. Objective Vital Signs / I&O: Vital Signs 01/28/18 13:00 01/28/18 13:15 01/28/18 13:30 Temperature Pulse Rate 97 H 95 H 94 H Respiratory Rate 18 20 17 Blood Pressure 110/56 L 107/62 98/53 L Pulse Oximetry 96 89 L 88 L 01/28/18 13:45 01/28/18 14:00 01/28/18 14:15 Temperature Pulse Rate 99 H 102 H 102 H Respiratory Rate 16 23 22 Blood Pressure 97/57 L 98/57 L 98/56 L Pulse Oximetry 86 L 87 L 84 L 01/28/18 14:30 01/28/18 14:45 01/28/18 15:00 Temperature Pulse Rate 99 H 95 H 86 Respiratory Rate 13 21 17 Blood Pressure 99/57 L 98/67 L 104/59 L Pulse Oximetry 87 L 85 L 84 L 01/28/18 15:15 01/28/18 15:30 01/28/18 15:45 Temperature Pulse Rate 104 H 97 H 96 H Respiratory Rate 27 H 22 16 Blood Pressure 106/59 L 109/65 86/51 L Pulse Oximetry 81 L 85 L 84 L 01/28/18 15:48 01/28/18 16:00 01/28/18 16:14 Temperature 98.0 F Pulse Rate 89 102 H 101 H Respiratory Rate 29 H 26 H 22 Blood Pressure 89/55 L 104/59 L Pulse Oximetry 83 L 94 L 01/28/18 16:15 01/28/18 16:30 01/28/18 16:38 Temperature Pulse Rate 102 H 107 H Respiratory Rate 18 17 Blood Pressure 108/59 L 107/53 L 104/58 L Pulse Oximetry 96 83 L 01/28/18 16:46 01/28/18 17:12 01/28/18 17:15 Temperature Pulse Rate 109 H 106 H 105 H Respiratory Rate 26 H 23 22 Blood Pressure 117/69 80/51 L 115/67 Pulse Oximetry 82 L 86 L 87 L 01/28/18 17:30 01/28/18 17:45 01/28/18 18:00 Temperature Pulse Rate 107 H 104 H 103 H Respiratory Rate 21 27 H 21 Blood Pressure 111/60 100/58 L 118/67 Pulse Oximetry 90 L 84 L 88 L 01/28/18 18:15 01/28/18 18:30 01/28/18 18:45 Temperature Pulse Rate 101 H 107 H 104 H Respiratory Rate 16 17 15 Blood Pressure 143/66 H 127/64 138/68 Pulse Oximetry 92 L 89 L 89 L 01/28/18 19:00 01/28/18 19:15 01/28/18 20:00 Temperature 98.5 F Pulse Rate 104 H 106 H 110 H Respiratory Rate 39 H 19 20 Blood Pressure 103/59 L 111/56 L 114/62 Pulse Oximetry 86 L 89 L 89 L 01/28/18 21:20 01/28/18 22:00 01/29/18 00:00 Temperature 98.6 F Pulse Rate 104 H 103 H 102 H Respiratory Rate 17 15 Blood Pressure 111/58 L Pulse Oximetry 92 L 97 01/29/18 02:00 01/29/18 04:00 01/29/18 06:00 Temperature 97.8 F Pulse Rate 101 H 96 H 97 H Respiratory Rate 16 Blood Pressure 99/55 L Pulse Oximetry 97 01/29/18 08:00 01/29/18 08:27 01/29/18 08:34 Temperature 98 F Pulse Rate 98 H 97 H Respiratory Rate 21 20 Blood Pressure 115/59 L Pulse Oximetry 89 L 88 L 01/29/18 10:00 01/29/18 10:38 Temperature Pulse Rate 101 H Respiratory Rate 22 Blood Pressure Pulse Oximetry Intake & Output 01/28/18 01/29/18 01/29/18 18:59 06:59 18:59 Intake Total 400 / 400 250 / 250 Output Total 2520 / 2520 0 / 0 Balance -2120 / -2120 250 / 250 Weight 98.5 kg Intake: IV 50 / 50 Zosyn 2.25 GM Premix 50 ML @ 50 / 50 100 mls/hr IV.SIG Q12H PEDRO Rx#: [id number] Oral 350 / 350 250 / 250 Output: Urine 20 / 20 0 / 0 Hemodialysis Amount 2500 / 2500 Other: # Voids 1 Date of Last Bowel Movement 01/28/18 01/28/18 01/28/18 # Bowel Movements 3 2 Result Diagrams: 01/28/18 06:38 01/28/18 06:38 Imaging: ITS Impressions Abdomen X-Ray 01/23/18 23:05 CONCLUSION: 1. Nonobstructive bowel gas pattern. Chest X-Ray 01/29/18 09:48 CONCLUSION: 1. Stable cardiomegaly and mild positive fluid balance. 2. No significant interval change. Objective Remarks: HEENT/Neuro: No pallor or icterus, tongue moist, CHAVA, Awake alert oriented 3 , nonfocal grossly, moving all 4 extremities Neck: No JVD Chest/pulmonary: Good air entry bilaterally, scattered rhonchi bilaterally, no wheezing or crackles. Cardiovascular: S1-S2 irregularly irregular no gallop or murmur GI/abdomen: Soft, nontender, bowel sounds present Extremities: Warm bilaterally, no edema Assessment and Plan - Assessment and Plan Plan: Assessment: 72yM with ESRD and poorly controlled atrial fibrillation and now persistent hypotension. In terms of his hypotension, I think the combination of AV gilbert blocking agents has caused significant hypotension in the setting of impaired cardiac output due to rate control. At this time we will hold his Bystolic since it was the newest medication added. I will add a single loading dose of digoxin 0.5mg iv x 1 to help assist in rate control while providing adequate contractility which may be impaired by the significant beta blockade we are providing. Certainly digoxin is not an ideal option for him to be on as a long-term agent given it's renal clearance. 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 I think he has been hypotensive enough during this hospital admission that if we are unable to regain control of his rate, he would be an excellent candidate for KAYLYNN /Cardioversion, but at present he has not been anticoagulated, so I would not pursue this emergently unless his hypotension was refractory or worsening and causing significant additional end-organ dysfunction. Certainly he is critically ill today with persistent hypotension. Active Problems: Acute respiratory failure CAD CHF Possible COPD Atrial Fibrillation with rapid ventricular response end-stage renal disease requiring hemodialysis Persistent hypotension secondary to poor cardiac output Neuro: Follow neuro status. Pain medications as needed. Cardiovascular: Status post cardiac cath. Being followed by Dr. Weinberg was considering AV gilbert ablation with pacemaker placement for refractory A. fib. Amiodarone dose decreased. Continue metoprolol, Midrin, Coumadin for anticoagulation. Fluid removal with hemodialysis. Pulmonary: Placed on high flow O2 at 30 L/min, 60% FiO2. Will discuss obtaining CT chest for further evaluation of respiratory failure including possible ILD/PE. Solu-Medrol has been tapered off. Continue inhaled steroids, bronchodilators per pulmonary. GI/liver: P.o. diet as tolerated Renal/: On hemodialysis per renal. Will discuss with nephrology regarding obtaining CT pulmonary angiogram for evaluation for PE prior to his next hemodialysis session. ID: On Zosyn for empiric antibiotic coverage. Endocrine: Watch for hyperglycemia, SSI for glycemic control if needed Prophylaxis: Pepcid/SCDs. Anticoagulation with Coumadin. Discussed with Dr. Weinberg, discussed with Dr. Mark. May require endotracheal intubation if respiratory status worsens. Time spent on critical care excluding procedures 45 minutes
[2018-01-29] MEDS: Piperacil/Tazo 2.25 GM Premix 50 ML IV.SIG SCH (13:19)
--- NOTE | 2018-01-29 13:55 | P.PNCA ---
Subjective Interval history: alert in nad Physical Exam Vital signs: Vital Signs 01/28/18 14:00 01/28/18 14:15 01/28/18 14:30 Temperature Pulse Rate 102 H 102 H 99 H Respiratory Rate 23 22 13 Blood Pressure 98/57 L 98/56 L 99/57 L Pulse Oximetry 87 L 84 L 87 L 01/28/18 14:45 01/28/18 15:00 01/28/18 15:15 Temperature Pulse Rate 95 H 86 104 H Respiratory Rate 21 17 27 H Blood Pressure 98/67 L 104/59 L 106/59 L Pulse Oximetry 85 L 84 L 81 L 01/28/18 15:30 01/28/18 15:45 01/28/18 15:48 Temperature Pulse Rate 97 H 96 H 89 Respiratory Rate 22 16 29 H Blood Pressure 109/65 86/51 L 89/55 L Pulse Oximetry 85 L 84 L 83 L 01/28/18 16:00 01/28/18 16:14 01/28/18 16:15 Temperature 98.0 F Pulse Rate 102 H 101 H 102 H Respiratory Rate 26 H 22 18 Blood Pressure 104/59 L 108/59 L Pulse Oximetry 94 L 96 01/28/18 16:30 01/28/18 16:38 01/28/18 16:46 Temperature Pulse Rate 107 H 109 H Respiratory Rate 17 26 H Blood Pressure 107/53 L 104/58 L 117/69 Pulse Oximetry 83 L 82 L 01/28/18 17:12 01/28/18 17:15 01/28/18 17:30 Temperature Pulse Rate 106 H 105 H 107 H Respiratory Rate 23 22 21 Blood Pressure 80/51 L 115/67 111/60 Pulse Oximetry 86 L 87 L 90 L 01/28/18 17:45 01/28/18 18:00 01/28/18 18:15 Temperature Pulse Rate 104 H 103 H 101 H Respiratory Rate 27 H 21 16 Blood Pressure 100/58 L 118/67 143/66 H Pulse Oximetry 84 L 88 L 92 L 01/28/18 18:30 01/28/18 18:45 01/28/18 19:00 Temperature Pulse Rate 107 H 104 H 104 H Respiratory Rate 17 15 39 H Blood Pressure 127/64 138/68 103/59 L Pulse Oximetry 89 L 89 L 86 L 01/28/18 19:15 01/28/18 20:00 01/28/18 21:20 Temperature 98.5 F Pulse Rate 106 H 110 H 104 H Respiratory Rate 19 20 17 Blood Pressure 111/56 L 114/62 Pulse Oximetry 89 L 89 L 92 L 01/28/18 22:00 01/29/18 00:00 01/29/18 02:00 Temperature 98.6 F Pulse Rate 103 H 102 H 101 H Respiratory Rate 15 Blood Pressure 111/58 L Pulse Oximetry 97 01/29/18 04:00 01/29/18 06:00 01/29/18 08:00 Temperature 97.8 F 98 F Pulse Rate 96 H 97 H 98 H Respiratory Rate 16 21 Blood Pressure 99/55 L 115/59 L Pulse Oximetry 97 89 L 01/29/18 08:27 01/29/18 08:34 01/29/18 10:00 Temperature Pulse Rate 97 H 101 H Respiratory Rate 20 Blood Pressure Pulse Oximetry 88 L 01/29/18 10:38 Temperature Pulse Rate Respiratory Rate 22 Blood Pressure Pulse Oximetry Intake & Output 01/28/18 01/29/18 01/29/18 18:59 06:59 18:59 Intake Total 400 / 400 300 / 300 Output Total 2520 / 2520 0 / 0 Balance -2120 / -2120 300 / 300 Weight 98.5 kg Intake: IV 50 / 50 50 / 50 Zosyn 2.25 GM Premix 50 ML @ 50 / 50 50 / 50 100 mls/hr IV.SIG Q12H PEDRO Rx#: [id number] Oral 350 / 350 250 / 250 Output: Urine 20 / 20 0 / 0 Hemodialysis Amount 2500 / 2500 Other: # Voids 1 Date of Last Bowel Movement 01/28/18 01/28/18 01/28/18 # Bowel Movements 3 2 Assessment and Plan - Assessment (1) Atrial fibrillation with rapid ventricular response Code(s): I48.91 - Unspecified atrial fibrillation Status: Acute (2) CHF (congestive heart failure) Code(s): I50.9 - Heart failure, unspecified Status: Acute (3) Chronic kidney disease with end stage renal failure on dialysis Code(s): N18.6 - End stage renal disease; Z99.2 - Dependence on renal dialysis Status: Acute (4) Atrial fibrillation with RVR Code(s): I48.91 - Unspecified atrial fibrillation Status: Acute (5) ESRD (end stage renal disease) on dialysis Code(s): N18.6 - End stage renal disease; Z99.2 - Dependence on renal dialysis Status: Acute - Plan 1.) Afib with rvr - Dr Weinberg started amio and coumadin, rates improved, below 100 's, coumadin restarted, d/w Dr Weinberg, he will see patient and readjust meds as needed; intolerant of coreg due to hypotension, will increase amio to 200 mg tid , Dr Weinberg to f/u, d/w patient and nurse at bedside. Patient tells me he was seen by Dr Weinberg who is planning device placement 2.) CAD - continue, lipitor, coumadin, f/u inr in am (2) CHF (congestive heart failure) Qualifiers: Heart failure type: unspecified Heart failure chronicity: unspecified Qualified Code(s): I50.9 - Heart failure, unspecified
--- NOTE | 2018-01-29 15:16 | P.PNPAL ---
Reason for Visit Reason for visit: a. To assist with evaluation and management of symptoms including: Constipation , dyspnea b. To assist medical decision maker(s) with: better understanding of current medical conditions; weighing benefits/burdens of medical treatment options; making medical treatment decisions. Subjective Subjective/Interval History: Patient seen today for follow-up on symptom management of constipation and dyspnea. Constipation has been resolved with the administration of lactulose total of 3 bowel movements in the last 24 hours. Patient states that his abdominal discomfort, cramping and gas pains have resolved and that he is much more comfortable. Dyspnea is stabilizing, as patient required increase from 2 L nasal cannula to 11 L mask yesterday. He is now on 6 L high flow nasal cannula oxygen saturating approximately 90%. He remains minimally dyspneic with conversation, but does note some shortness of breath. This is felt to be multifactorial to include atrial fibrillation, mild pulmonary edema, possible COPD from a past history of smoking, prior exposure to Agent [place] in [place]. He was seen by Dr. Weinberg, the shrimp trawler, this morning who is considering implantation of a permanent pacemaker and AV node ablation for control of the atrial fibrillation. however due to the risk of extended ventilation, Dr. Weinberg wishes to wait until the patient is more stable from a pulmonology standpoint before proceeding with an elective procedure. Amiodarone was weaned down today as his heart rate is remaining fairly well controlled. Arterial blood gas was ordered by Dr. Weinberg and showed pH 7.46, PCO2 42, PaO2 50, HCO3 30, base excess +5.6, oxygen saturation 82% on 6 L high flow nasal cannula. . Family/Friend Interactions: Spoke with patient's daughter, Dinorah Greer, via telephone and updated her as to current clinical status and plan. She had also spoken with Dr. Weinberg this morning regarding the plan for insertion of a pacemaker with an AV node ablation. She has a previous work history of a respiratory therapist, however has not worked in that field in 30 years but has a basic understanding of his fragile respiratory status. She is in agreement with waiting until he is more stable from a respiratory standpoint prior to proceeding with an elective surgical procedure. . Objective Vital Signs: Vital Signs 01/28/18 14:45 01/28/18 15:00 01/28/18 15:15 Temperature Pulse Rate 95 H 86 104 H Respiratory Rate 21 17 27 H Blood Pressure 98/67 L 104/59 L 106/59 L Pulse Oximetry 85 L 84 L 81 L 01/28/18 15:30 01/28/18 15:45 01/28/18 15:48 Temperature Pulse Rate 97 H 96 H 89 Respiratory Rate 22 16 29 H Blood Pressure 109/65 86/51 L 89/55 L Pulse Oximetry 85 L 84 L 83 L 01/28/18 16:00 01/28/18 16:14 01/28/18 16:15 Temperature 98.0 F Pulse Rate 102 H 101 H 102 H Respiratory Rate 26 H 22 18 Blood Pressure 104/59 L 108/59 L Pulse Oximetry 94 L 96 01/28/18 16:30 01/28/18 16:38 01/28/18 16:46 Temperature Pulse Rate 107 H 109 H Respiratory Rate 17 26 H Blood Pressure 107/53 L 104/58 L 117/69 Pulse Oximetry 83 L 82 L 01/28/18 17:12 01/28/18 17:15 01/28/18 17:30 Temperature Pulse Rate 106 H 105 H 107 H Respiratory Rate 23 22 21 Blood Pressure 80/51 L 115/67 111/60 Pulse Oximetry 86 L 87 L 90 L 01/28/18 17:45 01/28/18 18:00 01/28/18 18:15 Temperature Pulse Rate 104 H 103 H 101 H Respiratory Rate 27 H 21 16 Blood Pressure 100/58 L 118/67 143/66 H Pulse Oximetry 84 L 88 L 92 L 01/28/18 18:30 01/28/18 18:45 01/28/18 19:00 Temperature Pulse Rate 107 H 104 H 104 H Respiratory Rate 17 15 39 H Blood Pressure 127/64 138/68 103/59 L Pulse Oximetry 89 L 89 L 86 L 01/28/18 19:15 01/28/18 20:00 01/28/18 21:20 Temperature 98.5 F Pulse Rate 106 H 110 H 104 H Respiratory Rate 19 20 17 Blood Pressure 111/56 L 114/62 Pulse Oximetry 89 L 89 L 92 L 01/28/18 22:00 01/29/18 00:00 01/29/18 02:00 Temperature 98.6 F Pulse Rate 103 H 102 H 101 H Respiratory Rate 15 Blood Pressure 111/58 L Pulse Oximetry 97 01/29/18 04:00 01/29/18 06:00 01/29/18 08:00 Temperature 97.8 F 98 F Pulse Rate 96 H 97 H 98 H Respiratory Rate 16 21 Blood Pressure 99/55 L 115/59 L Pulse Oximetry 97 89 L 01/29/18 08:27 01/29/18 08:34 01/29/18 10:00 Temperature Pulse Rate 97 H 101 H Respiratory Rate 20 Blood Pressure Pulse Oximetry 88 L 01/29/18 10:38 01/29/18 12:00 Temperature Pulse Rate 95 H Respiratory Rate 22 Blood Pressure Pulse Oximetry Intake & Output 01/28/18 01/29/18 01/29/18 18:59 06:59 18:59 Intake Total 400 / 400 300 / 300 Output Total 2520 / 2520 0 / 0 Balance -2120 / -2120 300 / 300 Weight 217 lb 2.485 oz Intake: IV 50 / 50 50 / 50 Zosyn 2.25 GM Premix 50 ML @ 50 / 50 50 / 50 100 mls/hr IV.SIG Q12H [facility] Rx#: [id number] Oral 350 / 350 250 / 250 Output: Urine 20 / 20 0 / 0 Hemodialysis Amount 2500 / 2500 Other: # Voids 1 Date of Last Bowel Movement 01/28/18 01/28/18 01/28/18 # Bowel Movements 3 2 Physical Exam: CONSTITUTIONAL/GENERAL: This is an adequately nourished patient, in no apparent distress. TUBES/LINES/DRAINS: Right subclavian Vas-Cath, right hand PIV SKIN: No jaundice, rashes, or lesions. Ecchymoses on upper extremities. No wounds seen anteriorly. Skin temperature appropriate. Not diaphoretic. HEAD: Atraumatic. Normocephalic. EYES: Pupils equal and round and reactive. Extraocular motions intact. No scleral icterus. No injection or drainage. Fundi not examined. ENT: Hearing grossly normal. Nose without bleeding or purulent drainage. Throat without visible erythema, exudates, masses, or lesions. NECK: Trachea midline. Supple, nontender. No palpable thyroid enlargement or nodularity. CARDIOVASCULAR: S1, S2, irregular rhythm, controlled rate, no rub murmur or gallop. RESPIRATORY/CHEST: Diminished breath sounds with bibasilar crackles, no rhonchi or wheezes. GASTROINTESTINAL: Abdomen soft, non-tender, nondistended. No hepato-splenomegaly , or palpable masses. No guarding. Bowel sounds present. GENITOURINARY: Without palpable bladder distension. Linton catheter in place. MUSCULOSKELETAL: Extremities without clubbing, cyanosis, or edema. No joint tenderness or effusion noted. No calf tenderness. No mottling or clubbing. LYMPHATICS: No palpable cervical or supraclavicular adenopathy. NEUROLOGICAL: Awake and alert. Motor and sensory grossly within normal limits. Follows commands. Cognitively sharp. Moves all extremities. PSYCHIATRIC: Appears less anxious than previous assessment. Diagnostic Tests Laboratory: Laboratory Results - last 72 hr 01/26/18 01/27/18 01/27/18 14:16 00:08 03:54 WBC RBC Hgb Hct MCV MCH MCHC RDW Plt Count MPV PT 17.4 H INR 1.7 APTT 63.4 H Puncture Site Patient Temperature O2 Saturation ABG pH ABG pCO2 ABG pO2 ABG HCO3 ABG O2 Content ABG Base Excess ABG Methemoglobin Eligio Test Hemoglobin Carboxyhemoglobin O2 Delivery Device Liter Flow Inspired O2 Critical Value Sodium Potassium Chloride Carbon Dioxide Anion Gap BUN Creatinine Estimated GFR POC Glucose 232 H Random Glucose Calcium Phosphorus Albumin 01/27/18 01/27/18 01/28/18 03:54 11:47 06:38 WBC 10.1 D RBC 3.72 L Hgb 10.4 L Hct 32.1 L MCV 86.4 MCH 27.9 MCHC 32.3 RDW 16.5 Plt Count 188 MPV 8.8 PT 16.9 H 15.7 H INR 1.7 1.6 APTT Puncture Site Patient Temperature O2 Saturation ABG pH ABG pCO2 ABG pO2 ABG HCO3 ABG O2 Content ABG Base Excess ABG Methemoglobin Eligio Test Hemoglobin Carboxyhemoglobin O2 Delivery Device Liter Flow Inspired O2 Critical Value Sodium Potassium Chloride Carbon Dioxide Anion Gap BUN Creatinine Estimated GFR POC Glucose Random Glucose Calcium Phosphorus Albumin 01/28/18 01/28/18 01/29/18 06:38 06:38 05:35 WBC 10.3 RBC 3.87 L Hgb 10.8 L Hct 33.9 L MCV 87.6 MCH 28.0 MCHC 31.9 L RDW 16.4 Plt Count 205 MPV 8.9 PT 16.1 H INR 1.6 APTT Puncture Site Patient Temperature O2 Saturation ABG pH ABG pCO2 ABG pO2 ABG HCO3 ABG O2 Content ABG Base Excess ABG Methemoglobin Eligio Test Hemoglobin Carboxyhemoglobin O2 Delivery Device Liter Flow Inspired O2 Critical Value Sodium 138 Potassium 4.7 Chloride 98 Carbon Dioxide 28.2 Anion Gap 12 BUN 56 H Creatinine 7.96 H Estimated GFR 7 L POC Glucose Random Glucose 140 H Calcium 8.8 Phosphorus 4.2 Albumin 3.1 L 01/29/18 09:40 WBC RBC Hgb Hct MCV MCH MCHC RDW Plt Count MPV PT INR APTT Puncture Site Right radial Patient Temperature 98.6 O2 Saturation 82 L* ABG pH 7.46 H ABG pCO2 42 ABG pO2 50 L* ABG HCO3 30 H ABG O2 Content 11.7 L ABG Base Excess 5.6 H ABG Methemoglobin 1.4 Eligio Test Present Hemoglobin 10.1 L Carboxyhemoglobin 2.4 O2 Delivery Device Nasal cannula Liter Flow 6.00 Inspired O2 21 Critical Value Yes Sodium Potassium Chloride Carbon Dioxide Anion Gap BUN Creatinine Estimated GFR POC Glucose Random Glucose Calcium Phosphorus Albumin Result Diagrams: 01/28/18 06:38 01/28/18 06:38 Microbiology: Microbiology 01/24/18 13:40 Gram Stain - Final Sputum - Expectorated Sputum Sputum Culture - Final Heavy growth normal respiratory marielos Imaging: Microbiology Chest X-Ray 01/15/18 18:13 CONCLUSION: Mild interstitial prominence without focal airspace opacities. Slight improvement prior 12/12/2017. Stable cardiomegaly. Chest X-Ray 01/23/18 09:37 CONCLUSION: Mild interval increase in interstitial opacities of concern for pulmonary edema. Abdomen X-Ray 01/23/18 23:05 CONCLUSION: 1. Nonobstructive bowel gas pattern. Chest X-Ray 01/24/18 08:50 CONCLUSION: No appreciable change. Chest X-Ray 01/25/18 09:25 CONCLUSION: No significant change. Chest X-Ray 01/29/18 09:48 CONCLUSION: 1. Stable cardiomegaly and mild positive fluid balance. 2. No significant interval change. 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 Spiritual:Assistant Center Manager available. Legal:His daughter, Dinorah Greer, is his healthcare decision maker. Ethical issues impacting care: None noted. Important Contacts: Daughter: Dinorah Greer . Prognosis: His prognosis is guarded. He is short of breath at rest, remains in atrial fib , rate reasonably well controlled. He continues to complain of chest pain and given his recent left heart catheterization showing mild to moderate coronary disease, this is unlikely to be caused by anginal pain. He has end-stage renal disease, diabetes, hypertension and is at risk for further complications and decline. . Code Status: Full Code Plan: PLAN: Legal decision maker: The patient is capacitated to make his own decisions however requests assisted decision making with his daughter, Dinorah Greer. At this time he is too uncomfortable and symptomatic to complete his healthcare surrogate. Goals: Aggressive CODE STATUS: FULL CODE SYMPTOMS: * Constipation: This is resolved after administration of lactulose. To prevent further occurrences would recommend daily bowel regimen to include MiraLAX. * Dyspnea: Multifactorial to include past history of smoking, mild pulmonary edema, atrial fibrillation, as well as agent orange exposure in [place]. He is requiring increased oxygen today to maintain saturations, now high flow nasal cannula. He is being followed by pulmonology and is currently receiving Symbicort, DuoNeb and Zosyn. He received 4 doses of Solu-Medrol 40 mg, last dose on 01/26. He is receiving an inhaled corticosteroid, however, may benefit from short course of oral steroids. Palliative care will continue to follow the patient during hospital course as condition evolves, to assist patient/decision-maker with understanding of their medical conditions, weighing benefits/burdens of treatment options, for clarification of goals of treatment. Additionally will assist with any symptoms of palliative concern. . Attestation Attestation: To help prompt me to consider important information that might be impacting today's encounter and assessment, information from prior notes written by myself or my colleagues may have been "brought forward" into today's note. My signature on this note, however, is an attestation that I personally performed the exam, history, and/or decision-making noted today, and, unless otherwise indicated, the interactions with patient, family, and staff as well as the review of records all occurred today. I also attest that the listed assessment and stated plan reflect my best clinical judgment today based on the combination of historical information, prior notes, and today's exam/ interactions. When time spent is documented, it refers only to time spent today by the signer, or if indicated, combined time spent today by collaborating physician/nurse practitioner. .
--- NOTE | 2018-01-29 15:27 | P.DIET ---
Nutritional Evaluation Type of nutrition evaluation: follow-up Nutrition screening: Weight Loss > 10 lbs Subjective Subjective Comments: Reports good appetite; independent feed. Objective - Diagnosis CHF, AFib w/RVR, ESRD on HD - Objective [place] body weight: 89 kg Body Weight Used for Calculations: Actual (93kg used for assessment here) Energy Needs - Lower Range (kCal/kg): 28 Energy Needs - Upper Range (kCal/kg): 33 Lower Limit kCal/kg (kCals): 2,604 Upper Limit kCal/kg (kCals): 3,069 Lower Limit Protein Factor (Grams per Kg): 1.2 Upper Limit Protein Factor (Grams per Kg): 1.5 Lower Protein Needs (Protein): 112 Upper Protein Needs (Protein): 140 Dietitian Reviewed in Medical Record: Current diet, Curent medications, Intake & Output, Labs, Medical history Diet Order: NPO Oral Diet Intake Amount: Fair 50-75% Objective Comments: PMH Includes: CHF, ESRD on HD, Fistula, HTN, DM-2, hyperlipidemia Labs include: Glu 140, Cr 7.96 +2 BM's, HD 2300ml removed Feeding - Current PO Supplement Current Supplement: Nepro Current Supplement Flavor: Vanilla Current Frequency of Supplement: Twice daily Current kCals Provided by Supplement: 425 Current Protein Provided by Supplement: 20 Assessment Assessment: Pt is at nutritional risk r/t reported recent unintentional wt loss and need for HD. Adequate po intake for meals recorded in EMR, 50% or greater. Send Nepro bid. Labs reviewed. Will continue to monitor po intake, clinical course. Recommendations: 1.Send Nepro supplement BID to offer additional nutrition Dietitian to Monitor: Lab values, Electrolytes, Renal labs, Glucose level, Supplement acceptance, Intake & Output, Weight change, PO Intake, Medical course
[2018-01-29] MEDS: Hydrocortisone Acetate 25 MG Supp RECTAL SCH ×2 (17:19→21:04)
[2018-01-29] MEDS: Budesonide-Formoterol 160/4.5 MCG 6 GM Inhaler INH SCH (17:19)
[2018-01-29] MEDS: Temazepam 15 MG Capsule PO PRN (21:21)
[2018-01-30] MEDS: Piperacil/Tazo 2.25 GM Premix 50 ML IV.SIG SCH ×3 (00:21→22:21)
[2018-01-30] MEDS: Budesonide-Formoterol 160/4.5 MCG 6 GM Inhaler INH SCH ×4 (01:09→22:20)
[2018-01-30] MEDS: Metoprolol Tartrate 25 MG Tablet PO SCH ×4 (03:38→22:20)
[2018-01-30 06:08] LABS: Prothrombin Time 20.7 sec (9.8-11.6)
[2018-01-30] MEDS: Amiodarone 200 MG Tablet PO SCH (08:40)
[2018-01-30] MEDS: Hydrocortisone Acetate 25 MG Supp RECTAL SCH ×2 (08:42→22:20)
[2018-01-30] MEDS: Senna/Docusate Sodium 8.6/50 MG Tablet PO SCH ×2 (08:43→22:21)
--- NOTE | 2018-01-30 09:59 | P.PNNP ---
Subjective Interval history: Remains hypoxic despite high flow oxygen. Oxygen saturation is 90% on 30 L, 50% FiO2. Due for CT chest with IV contrast and HD afterwards. <Jyoti Ceron - Last Filed: 01/30/18 09:51> Physical Exam Vital signs: Vital Signs 01/29/18 10:00 01/29/18 10:38 01/29/18 12:00 Temperature 93 F L Pulse Rate 101 H 98 H Respiratory Rate 22 21 Blood Pressure 115/59 L Pulse Oximetry 91 L 01/29/18 14:00 01/29/18 15:28 01/29/18 16:00 Temperature 92 F L Pulse Rate 91 H 92 H 98 H Respiratory Rate 19 21 Blood Pressure 105/60 Pulse Oximetry 90 L 01/29/18 17:19 01/29/18 18:00 01/29/18 18:40 Temperature Pulse Rate 94 H Respiratory Rate 21 Blood Pressure Pulse Oximetry 95 01/29/18 20:00 01/29/18 22:00 01/29/18 22:07 Temperature 97.8 F Pulse Rate 93 H 90 98 H Respiratory Rate 18 14 Blood Pressure 77/52 L Pulse Oximetry 95 98 01/30/18 00:00 01/30/18 02:00 01/30/18 04:00 Temperature 98.8 F 98.0 F Pulse Rate 95 H 93 H 93 H Respiratory Rate 14 19 Blood Pressure 104/58 L 96/53 L Pulse Oximetry 91 L 93 L 01/30/18 04:08 01/30/18 06:00 01/30/18 08:00 Temperature Pulse Rate 94 H 64 Respiratory Rate 16 Blood Pressure Pulse Oximetry 91 L 01/30/18 08:28 Temperature Pulse Rate 87 Respiratory Rate 28 H Blood Pressure Pulse Oximetry Intake & Output 01/29/18 01/30/18 01/30/18 18:59 06:59 18:59 Intake Total 530 / 530 350 / 350 Output Total 0 / 0 100 / 100 Balance 530 / 530 250 / 250 Weight 95 kg Intake: IV 50 / 50 50 / 50 Zosyn 2.25 GM Premix 50 ML @ 50 / 50 50 / 50 100 mls/hr IV.SIG Q12H [facility] Rx#: [id number] Oral 480 / 480 300 / 300 Output: Urine 0 / 0 0 / 0 Stool 100 / 100 Other: Date of Last Bowel Movement 01/28/18 01/30/18 # Bowel Movements 2 # Incontinent Bowel Movements 2 - Constitutional no acute distress, chronically ill appearing, cooperative - Routine HEENT Exam Head: Present: normocephalic Eye: Present: EOMI - Routine Neck Exam Present: supple, full ROM. Absent: JVD - Routine Respiratory Exam Present: rales, crackles. Absent: respiratory distress, wheezes Comments: right sided rales throughout - Routine Cardiovascular Exam Present: S1, S2, irregular rhythm, irregularly irregular. Absent: S3, S4 - Routine Abdominal Exam Present: soft, normoactive bowel sounds - Routine Extremities Exam Present: pulses intact, AV fistula, vascular access. Absent: edema, tenderness - Routine Skin Exam Present: intact, warm - Routine Neurological Exam Present: alert, oriented X3, CN II-XII intact, moving all extremities - Detailed Neurological Exam: Coma Scale Eye Opening: Spontaneous Verbal Response: Oriented Motor Response: Obey commands [place] Coma Scale Total: 15 - Routine Psychiatric Exam Present: normal affect, normal thought process <Jyoti Ceron - Last Filed: 01/30/18 09:51> Vital signs: Vital Signs 01/29/18 15:28 01/29/18 16:00 01/29/18 17:19 Temperature 92 F L Pulse Rate 92 H 98 H Respiratory Rate 19 21 21 Blood Pressure 105/60 Pulse Oximetry 90 L 01/29/18 18:00 01/29/18 18:40 01/29/18 20:00 Temperature 97.8 F Pulse Rate 94 H 93 H Respiratory Rate 18 Blood Pressure 77/52 L Pulse Oximetry 95 95 01/29/18 22:00 01/29/18 22:07 01/30/18 00:00 Temperature 98.8 F Pulse Rate 90 98 H 95 H Respiratory Rate 14 14 Blood Pressure 104/58 L Pulse Oximetry 98 91 L 01/30/18 02:00 01/30/18 04:00 01/30/18 04:08 Temperature 98.0 F Pulse Rate 93 H 93 H 94 H Respiratory Rate 19 16 Blood Pressure 96/53 L Pulse Oximetry 93 L 01/30/18 06:00 01/30/18 08:00 01/30/18 08:28 Temperature 98.3 F Pulse Rate 64 92 H 87 Respiratory Rate 16 28 H Blood Pressure 104/63 Pulse Oximetry 91 L 01/30/18 09:00 01/30/18 10:00 Temperature Pulse Rate 88 Respiratory Rate 17 Blood Pressure Pulse Oximetry Intake & Output 01/29/18 01/30/18 01/30/18 18:59 06:59 18:59 Intake Total 530 / 530 350 / 350 Output Total 0 / 0 100 / 100 Balance 530 / 530 250 / 250 Weight 95 kg Intake: IV 50 / 50 50 / 50 Zosyn 2.25 GM Premix 50 ML @ 50 / 50 50 / 50 100 mls/hr IV.SIG Q12H [facility] Rx#: [id number] Oral 480 / 480 300 / 300 Output: Urine 0 / 0 0 / 0 Stool 100 / 100 Other: Date of Last Bowel Movement 01/28/18 01/30/18 01/29/18 # Bowel Movements 2 # Incontinent Bowel Movements 2 <Eduardo Salvador - Last Filed: 01/30/18 14:42> Assessment and Plan - Assessment (1) ESRD (end stage renal disease) on dialysis Code(s): N18.6 - End stage renal disease; Z99.2 - Dependence on renal dialysis Status: Acute Plan: Continue HD MWF. Due today after CT. Monitor electrolytes intermittently. Avoid IVF administration. Protect left arm from procedures, has new AV access that is not mature. PermCath in place for HD use. Phosphorus level acceptable without binder therapy. High protein low K diet ordered. Also on Supplements. Needs nutritional support. Outpatient HD arrangements in [facility] at [facility]. (2) Atrial fibrillation with RVR Code(s): I48.91 - Unspecified atrial fibrillation Status: Acute Plan: Rate is variable. REcently has been controlled. On PO Amiodarone. Hypotensive with change from Metoprolol to Carvedilol, it was changed back. Midodrine is ordered TID for hypotension. Continue with rate control measures. Cardiology following. KAYLYNN cardioversion and AV ablation with pacemaker are other options. Appreciate cardiology recommendations on how to proceed and to choose the best course of action. (3) Hypoxia Code(s): R09.02 - Hypoxemia Status: Acute Plan: He is on high flow oxygen. Ween if able. CT with contrast ordered. Fluid removal as tolerated with HD. (4) CHF (congestive heart failure) Code(s): I50.9 - Heart failure, unspecified Status: Acute Qualifiers: Heart failure type: unspecified Heart failure chronicity: unspecified Qualified Code(s): I50.9 - Heart failure, unspecified Plan: Stable. EF noted to be around 60%. Fluid removal with dialysis. (5) Anemia in CKD (chronic kidney disease) Code(s): N18.9 - Chronic kidney disease, unspecified; D63.1 - Anemia in chronic kidney disease Status: Acute Plan: On Epogen with dialysis. Hemoglobin is acceptable. <Jyoti Ceron - Last Filed: 01/30/18 09:51> - Assessment (1) ESRD (end stage renal disease) on dialysis Code(s): N18.6 - End stage renal disease; Z99.2 - Dependence on renal dialysis Status: Acute (2) Atrial fibrillation with RVR Code(s): I48.91 - Unspecified atrial fibrillation Status: Acute (3) Hypoxia Code(s): R09.02 - Hypoxemia Status: Acute (4) CHF (congestive heart failure) Code(s): I50.9 - Heart failure, unspecified Status: Acute Qualifiers: Heart failure type: unspecified Heart failure chronicity: unspecified Qualified Code(s): I50.9 - Heart failure, unspecified (5) Anemia in CKD (chronic kidney disease) Code(s): N18.9 - Chronic kidney disease, unspecified; D63.1 - Anemia in chronic kidney disease Status: Acute - Attending Attestation patient was seen and examined. CT scan reviewed. Will attempt more aggressive fluid removal, but UF is hampered by hypotension and tachycardia. <Eduardo Salvador - Last Filed: 01/30/18 14:42>
--- NOTE | 2018-01-30 10:27 | CT ---
EXAM DATE: 01/30/2018 10:06 AM EDT AGE/SEX: 72 years / Male INDICATIONS: Possible pulmonary emboli, respiratory distress CLINICAL DATA: This is the patient's subsequent encounter. Patient reports that signs and symptoms h ave been present for 2 days and indicates a pain score of 0/10. MEDICAL/SURGICAL HISTORY: Renal disease, end stage. Congestive heart failure. Diabetes. Dialysis patient None. RADIATION DOSE: 21.12 CTDI (mGy) COMPARISON: No prior exams available for comparison. TECHNIQUE: Volumetric scanning was performed using a multi-row detector CT scanner during bolus infu issac of 75 ml Omnipaque 350 (iohexol) nonionic water-soluble contrast as a single exam dose. The nellie a was post processed with a variety of visualization algorithms including full volume maximum intensi ty projection and sliding thin slab reformation. Using automated exposure control and adjustment of the mA and/or kV according to patient size, radiation dose was kept as low as reasonably achievable t o obtain optimal diagnostic quality images. DICOM format image data is available electronically for review and comparison. FINDINGS: Pulmonary Arteries: No filling defects are seen in the pulmonary arteries out to the subsegmental ve ssels. Pulmonary arteries are enlarged with the main pulmonary artery measuring 4.4 cm in diameter. Lung: Mild to moderate upper lobe pulmonary parenchymal emphysema. Bilateral pulmonary consolidation with predominance at the dependent portions of the lungs. Elongated nodular density along the major fissure on the right measures 4.5 cm in diameter. Given its shape, configuration, and density, this m ay represent loculated pleural fluid. Effusion: Small bilateral pleural effusions left greater than right. Mediastinum: Moderately enlarged heart. Small pericardial effusion. Aorta is normal diameter. Kay ry artery calcifications are noted. Mildly enlarged paratracheal lymph nodes measure up to 1.5 cm in short axis dimension. Similar mildly prominent lymph nodes are seen in the aorticopulmonary window, s ubcarinal region, and prevascular region of the mediastinum. Other: The axilla is unremarkable. CONCLUSION: 1. No evidence of pulmonary embolus. 2. Severe bilateral pulmonary parenchymal opacity with predominance at the dependent portions of the lungs. Difficult diagnosis includes pulmonary edema and infection. 3. Elongated lobulated nodular density in the right midlung following the major fissure likely repre sents loculated pleural effusion. 4. Enlarged pulmonary arteries suggesting pulmonary arterial hypertension. 5. Enlarged heart and small pericardial effusion. 6. Small left than right pleural effusions. 7. Mildly enlarged mediastinal lymph nodes, likely reactive. Electronically signed by: Juno Gutiérrez MD 01/30/2018 10:26 AM EDT
--- NOTE | 2018-01-30 10:49 | P.PNCC ---
Subjective Subjective Remarks/Hospital Course: This is a 72yM with history of ESRD on HD who was recently admitted last month for supraventricular tachycardia. It appears from the records that normal sinus rhythm was restored prior to discharge home. He re-presented to the hospital with atrial fibrillation with rapid ventricular response which has been poorly responsive to esmolol infusion. It is noted that there is still a shortage of diltiazem infusions, so none is available to place the patient on. Dr. Waters with cardiology was consulted, as was Dr. Weinberg. The patient has also had hypotension during this hospital stay with most blood pressure readings between 80-100 systolic. This morning, Bystolic was started and was given together with amiodarone 400mg and metoprolol 25mg po. Approximately 2 hours after this, his blood pressure dropped into the 60s and 70s systolic. I was consulted by Dr. Wilcox to evaluate and manage his hemodynamics in the setting of poorly-controlled atrial fibrillation and hypotension. The patient does complain of light-headedness and a little chest discomfort which is new since his blood pressure has dropped into the 70s. He denies any other complaints and tolerated breakfast this AM. ROS otherwise negative. troponins have been serially negative this admission. I performed bedside critical care echocardiography and compared this to images obtained from last hospital admission on 11/2017. Given the poorly controlled nature of the patient's rate, wall motion and accurate ejection fraction are difficult to assess with accuracy. It does appear that the patient has relatively preserved EF and at most only mildly depressed LVEF. Aortic valve is sclerotic but appears unchanged from prior echo which calculated the valve area at ~2cm. no pericardial effusion. IVC is dilated around 2cm without respiratory variation. heart rate on my evaluation is 121. 8/2: Critical care reconsulted by Dr. Weinberg for worsening respiratory failure. Patient dropped O2 sats to 84% on 6 L nasal cannula. When I evaluated patient he was resting in bed. Placed him on high flow nasal cannula 30 L/min 60% FiO2 with which his O2 sats came up to 90%. 83: Remains on high flow nasal cannula. CT chest negative for PE shows consolidation bilateral lower lobes and a loculated effusion on the right. Defer to pulmonary regarding further recommendations. Objective Vital Signs / I&O: Vital Signs 01/29/18 10:38 01/29/18 12:00 01/29/18 14:00 Temperature 93 F L Pulse Rate 98 H 91 H Respiratory Rate 22 21 Blood Pressure 115/59 L Pulse Oximetry 91 L 01/29/18 15:28 01/29/18 16:00 01/29/18 17:19 Temperature 92 F L Pulse Rate 92 H 98 H Respiratory Rate 19 21 21 Blood Pressure 105/60 Pulse Oximetry 90 L 01/29/18 18:00 01/29/18 18:40 01/29/18 20:00 Temperature 97.8 F Pulse Rate 94 H 93 H Respiratory Rate 18 Blood Pressure 77/52 L Pulse Oximetry 95 95 01/29/18 22:00 01/29/18 22:07 01/30/18 00:00 Temperature 98.8 F Pulse Rate 90 98 H 95 H Respiratory Rate 14 14 Blood Pressure 104/58 L Pulse Oximetry 98 91 L 01/30/18 02:00 01/30/18 04:00 01/30/18 04:08 Temperature 98.0 F Pulse Rate 93 H 93 H 94 H Respiratory Rate 19 16 Blood Pressure 96/53 L Pulse Oximetry 93 L 01/30/18 06:00 01/30/18 08:00 01/30/18 08:28 Temperature Pulse Rate 64 87 Respiratory Rate 28 H Blood Pressure Pulse Oximetry 91 L Intake & Output 01/29/18 01/30/18 01/30/18 18:59 06:59 18:59 Intake Total 530 / 530 350 / 350 Output Total 0 / 0 100 / 100 Balance 530 / 530 250 / 250 Weight 95 kg Intake: IV 50 / 50 50 / 50 Zosyn 2.25 GM Premix 50 ML @ 50 / 50 50 / 50 100 mls/hr IV.SIG Q12H [facility] Rx#: [id number] Oral 480 / 480 300 / 300 Output: Urine 0 / 0 0 / 0 Stool 100 / 100 Other: Date of Last Bowel Movement 01/28/18 01/30/18 # Bowel Movements 2 # Incontinent Bowel Movements 2 Result Diagrams: 01/28/18 06:38 01/28/18 06:38 Imaging: Chest X-Ray 01/15/18 18:13 CONCLUSION: Mild interstitial prominence without focal airspace opacities. Slight improvement prior 12/12/2017. Stable cardiomegaly. Chest X-Ray 01/23/18 09:37 CONCLUSION: Mild interval increase in interstitial opacities of concern for pulmonary edema. Abdomen X-Ray 01/23/18 23:05 CONCLUSION: 1. Nonobstructive bowel gas pattern. Chest X-Ray 01/24/18 08:50 CONCLUSION: No appreciable change. Chest X-Ray 01/25/18 09:25 CONCLUSION: No significant change. Chest X-Ray 01/29/18 09:48 CONCLUSION: 1. Stable cardiomegaly and mild positive fluid balance. 2. No significant interval change. Chest CTA 01/30/18 00:00 CONCLUSION: 1. No evidence of pulmonary embolus. 2. Severe bilateral pulmonary parenchymal opacity with predominance at the dependent portions of the lungs. Difficult diagnosis includes pulmonary edema and infection. 3. Elongated lobulated nodular density in the right midlung following the major fissure likely represents loculated pleural effusion. 4. Enlarged pulmonary arteries suggesting pulmonary arterial hypertension. 5. Enlarged heart and small pericardial effusion. 6. Small left than right pleural effusions. 7. Mildly enlarged mediastinal lymph nodes, likely reactive. Objective Remarks: HEENT/Neuro: No pallor or icterus, tongue moist, CHAVA, Awake alert oriented 3 , nonfocal grossly, moving all 4 extremities Neck: No JVD Chest/pulmonary: Good air entry bilaterally, scattered rhonchi bilaterally, no wheezing or crackles. Cardiovascular: S1-S2 irregularly irregular no gallop or murmur GI/abdomen: Soft, nontender, bowel sounds present Extremities: Warm bilaterally, no edema Assessment and Plan - Assessment and Plan Plan: Assessment: 72yM with ESRD and poorly controlled atrial fibrillation and now persistent hypotension. In terms of his hypotension, I think the combination of AV gilbert blocking agents has caused significant hypotension in the setting of impaired cardiac output due to rate control. At this time we will hold his Bystolic since it was the newest medication added. I will add a single loading dose of digoxin 0.5mg iv x 1 to help assist in rate control while providing adequate contractility which may be impaired by the significant beta blockade we are providing. Certainly digoxin is not an ideal option for him to be on as a long-term agent given it's renal clearance. 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 I think he has been hypotensive enough during this hospital admission that if we are unable to regain control of his rate, he would be an excellent candidate for KAYLYNN /Cardioversion, but at present he has not been anticoagulated, so I would not pursue this emergently unless his hypotension was refractory or worsening and causing significant additional end-organ dysfunction. Certainly he is critically ill today with persistent hypotension. Active Problems: Acute respiratory failure CAD CHF Possible COPD Atrial Fibrillation with rapid ventricular response end-stage renal disease requiring hemodialysis Persistent hypotension secondary to poor cardiac output Neuro: Follow neuro status. Pain medications as needed. Cardiovascular: Status post cardiac cath. Being followed by Dr. Weinberg was considering AV gilbert ablation with pacemaker placement for refractory A. fib. Amiodarone dose decreased. Continue metoprolol, Midrin, Coumadin for anticoagulation. Fluid removal with hemodialysis. 2D echo with normal LV function however no comment on RVSP Pulmonary: Placed on high flow O2 at 30 L/min, 60% FiO2. CT chest with no evidence of PE however did show emphysematous changes bilateral lower lobe consolidation changes as well as fluid in interlobar fissure on the right. Pulmonary arteries are enlarged with probable pulmonary hypertension. Will resume IV Solu-Medrol. Continue inhaled steroids, bronchodilators per pulmonary. Patient probably has significant pulmonary hypertension-deferred to pulmonary. GI/liver: P.o. diet as tolerated Renal/: On hemodialysis per renal. To be dialyzed following CT pulmonary angiogram today per discussion with nephrology. ID: On Zosyn for empiric antibiotic coverage. Endocrine: Watch for hyperglycemia, SSI for glycemic control if needed Prophylaxis: Pepcid/SCDs. Anticoagulation with Coumadin. May require endotracheal intubation if respiratory status worsens. Time spent on critical care excluding procedures 40 minutes
[2018-01-30] MEDS: MethylPREDNISolone Sod Succinate Inj 125 MG/2 ML Vial IV.PUSH SCH ×2 (12:07→23:36)
--- NOTE | 2018-01-30 13:05 | P.PNCA ---
Subjective Interval history: alert in nad Physical Exam Vital signs: Vital Signs 01/29/18 14:00 01/29/18 15:28 01/29/18 16:00 Temperature 92 F L Pulse Rate 91 H 92 H 98 H Respiratory Rate 19 21 Blood Pressure 105/60 Pulse Oximetry 90 L 01/29/18 17:19 01/29/18 18:00 01/29/18 18:40 Temperature Pulse Rate 94 H Respiratory Rate 21 Blood Pressure Pulse Oximetry 95 01/29/18 20:00 01/29/18 22:00 01/29/18 22:07 Temperature 97.8 F Pulse Rate 93 H 90 98 H Respiratory Rate 18 14 Blood Pressure 77/52 L Pulse Oximetry 95 98 01/30/18 00:00 01/30/18 02:00 01/30/18 04:00 Temperature 98.8 F 98.0 F Pulse Rate 95 H 93 H 93 H Respiratory Rate 14 19 Blood Pressure 104/58 L 96/53 L Pulse Oximetry 91 L 93 L 01/30/18 04:08 01/30/18 06:00 01/30/18 08:00 Temperature 98.3 F Pulse Rate 94 H 64 92 H Respiratory Rate 16 16 Blood Pressure 104/63 Pulse Oximetry 91 L 01/30/18 08:28 01/30/18 09:00 01/30/18 10:00 Temperature Pulse Rate 87 88 Respiratory Rate 28 H 17 Blood Pressure Pulse Oximetry Intake & Output 01/29/18 01/30/18 01/30/18 18:59 06:59 18:59 Intake Total 530 / 530 350 / 350 Output Total 0 / 0 100 / 100 Balance 530 / 530 250 / 250 Weight 95 kg Intake: IV 50 / 50 50 / 50 Zosyn 2.25 GM Premix 50 ML @ 50 / 50 50 / 50 100 mls/hr IV.SIG Q12H [facility] Rx#: [id number] Oral 480 / 480 300 / 300 Output: Urine 0 / 0 0 / 0 Stool 100 / 100 Other: Date of Last Bowel Movement 01/28/18 01/30/18 01/29/18 # Bowel Movements 2 # Incontinent Bowel Movements 2 Assessment and Plan - Assessment (1) Atrial fibrillation with rapid ventricular response Code(s): I48.91 - Unspecified atrial fibrillation Status: Acute (2) CHF (congestive heart failure) Code(s): I50.9 - Heart failure, unspecified Status: Acute (3) Chronic kidney disease with end stage renal failure on dialysis Code(s): N18.6 - End stage renal disease; Z99.2 - Dependence on renal dialysis Status: Acute (4) Atrial fibrillation with RVR Code(s): I48.91 - Unspecified atrial fibrillation Status: Acute (5) ESRD (end stage renal disease) on dialysis Code(s): N18.6 - End stage renal disease; Z99.2 - Dependence on renal dialysis Status: Acute - Plan 1.) Afib with rvr - Dr Weinberg started amio and coumadin, rates improved, below 100 's, coumadin restarted, d/w Dr Weinberg, he will see patient and readjust meds as needed; intolerant of coreg due to hypotension, will increase amio to 200 mg tid , Dr Weinberg to f/u, d/w patient and nurse at bedside. Patient tells me he was seen by Dr Weinberg who is planning device placement 2.) CAD - continue, lipitor, coumadin, f/u inr in am (2) CHF (congestive heart failure) Qualifiers: Heart failure type: unspecified Heart failure chronicity: unspecified Qualified Code(s): I50.9 - Heart failure, unspecified
--- NOTE | 2018-01-30 15:41 | P.PNPAL ---
Reason for Visit Reason for visit: a. To assist with evaluation and management of symptoms including: Dyspnea, weakness b. To assist medical decision maker(s) with: better understanding of current medical conditions; weighing benefits/burdens of medical treatment options; making medical treatment decisions. Subjective Subjective/Interval History: Patient seen today for follow-up on symptom management of dyspnea, weakness. Patient remains dyspneic on 60% FiO2, high flow nasal cannula at 30 L/min. He is saturating 90-93%. His dyspnea worsens with conversation and movement. 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 Chest CTA was done to evaluate for possible pulmonary embolus showing no evidence of PE, severe bilateral pulmonary parenchymal opacity with predominance in the dependent portions of the lungs. Differential diagnosis includes pulmonary edema and infection. It further showed elongated lobular nodular density in the right midlung following the major fissure likely representing loculated pleural effusion, Enlarged pulmonary arteries suggesting pulmonary artery hypertension, enlarged heart, small pericardial effusion, small left greater than right pleural effusions and mildly enlarged mediastinal lymph nodes, likely reactive. Critical care service notes that he may require endotracheal intubation if his respiratory status worsens. Pending pulmonary evaluation of CTA results for further management. He is becoming progressively weaker, compounded by extensive bedbound status, prolonged ICU stay and respiratory insufficiency. He is unable to effectively engage with physical therapy due to dyspnea which severely limits his therapy sessions. . Family/Friend Interactions: While the patient is alert, oriented and able to make decisions, he defers medical decisions to his daughter, Dinorah Greer . I did discuss his declining respiratory status with the patient and inform him of the fish cleaner opinion that he may require mechanical ventilation. When asked if he would be okay with that he said that he would do "whatever it takes". He complains of feeling very tired and weak. He had previously expressed aggressive goals, as has his daughter. Objective Vital Signs: Vital Signs 01/29/18 15:28 01/29/18 16:00 01/29/18 17:19 Temperature 92 F L Pulse Rate 92 H 98 H Respiratory Rate 19 21 21 Blood Pressure 105/60 Pulse Oximetry 90 L 01/29/18 18:00 01/29/18 18:40 01/29/18 20:00 Temperature 97.8 F Pulse Rate 94 H 93 H Respiratory Rate 18 Blood Pressure 77/52 L Pulse Oximetry 95 95 01/29/18 22:00 01/29/18 22:07 01/30/18 00:00 Temperature 98.8 F Pulse Rate 90 98 H 95 H Respiratory Rate 14 14 Blood Pressure 104/58 L Pulse Oximetry 98 91 L 01/30/18 02:00 01/30/18 04:00 01/30/18 04:08 Temperature 98.0 F Pulse Rate 93 H 93 H 94 H Respiratory Rate 19 16 Blood Pressure 96/53 L Pulse Oximetry 93 L 01/30/18 06:00 01/30/18 08:00 01/30/18 08:28 Temperature 98.3 F Pulse Rate 64 92 H 87 Respiratory Rate 16 28 H Blood Pressure 104/63 Pulse Oximetry 91 L 01/30/18 09:00 01/30/18 10:00 Temperature Pulse Rate 88 Respiratory Rate 17 Blood Pressure Pulse Oximetry Intake & Output 01/29/18 01/30/18 01/30/18 18:59 06:59 18:59 Intake Total 530 / 530 350 / 350 Output Total 0 / 0 100 / 100 Balance 530 / 530 250 / 250 Weight 209 lb 7.026 oz Intake: IV 50 / 50 50 / 50 Zosyn 2.25 GM Premix 50 ML @ 50 / 50 50 / 50 100 mls/hr IV.SIG Q12H PEDRO Rx#: [id number] Oral 480 / 480 300 / 300 Output: Urine 0 / 0 0 / 0 Stool 100 / 100 Other: Date of Last Bowel Movement 01/28/18 01/30/18 01/29/18 # Bowel Movements 2 # Incontinent Bowel Movements 2 Physical Exam: CONSTITUTIONAL/GENERAL: This is an adequately nourished patient, appears weak, in no apparent distress. TUBES/LINES/DRAINS: Right subclavian Vas-Cath, right hand PIV SKIN: No jaundice, rashes, or lesions. Ecchymoses on upper extremities. No wounds seen anteriorly. Skin temperature appropriate. Not diaphoretic. HEAD: Atraumatic. Normocephalic. EYES: Pupils equal and round and reactive. Extraocular motions intact. No scleral icterus. No injection or drainage. Fundi not examined. ENT: Hearing grossly normal. Nose without bleeding or purulent drainage. Throat without visible erythema, exudates, masses, or lesions. NECK: Trachea midline. Supple, nontender. No palpable thyroid enlargement or nodularity. CARDIOVASCULAR: S1, S2, irregular rhythm, controlled rate, no rub murmur or gallop. RESPIRATORY/CHEST: Diminished breath sounds with bibasilar crackles, some accessory muscle use noted today, No rhonchi or wheezes. GASTROINTESTINAL: Abdomen soft, non-tender, nondistended. No hepato-splenomegaly , or palpable masses. No guarding. Bowel sounds present. GENITOURINARY: Without palpable bladder distension. Linton catheter in place. MUSCULOSKELETAL: Extremities without clubbing, cyanosis, or edema. No joint tenderness or effusion noted. No calf tenderness. No mottling or clubbing. LYMPHATICS: No palpable cervical or supraclavicular adenopathy. NEUROLOGICAL: Appears tired, fatigued, oriented 4. Motor and sensory grossly within normal limits. Follows commands. Moves all extremities. PSYCHIATRIC: Appears less anxious than previous assessment. . Diagnostic Tests Laboratory: Laboratory Results - last 72 hr 01/28/18 01/28/18 01/28/18 06:38 06:38 06:38 WBC 10.3 RBC 3.87 L Hgb 10.8 L Hct 33.9 L MCV 87.6 MCH 28.0 MCHC 31.9 L RDW 16.4 Plt Count 205 MPV 8.9 PT 15.7 H INR 1.6 Puncture Site Patient Temperature O2 Saturation ABG pH ABG pCO2 ABG pO2 ABG HCO3 ABG O2 Content ABG Base Excess ABG Methemoglobin Eligio Test Hemoglobin Carboxyhemoglobin O2 Delivery Device Liter Flow Inspired O2 Critical Value Sodium 138 Potassium 4.7 Chloride 98 Carbon Dioxide 28.2 Anion Gap 12 BUN 56 H Creatinine 7.96 H Estimated GFR 7 L POC Glucose Random Glucose 140 H Calcium 8.8 Phosphorus 4.2 Albumin 3.1 L 01/29/18 01/29/18 01/30/18 05:35 09:40 05:02 WBC RBC Hgb Hct MCV MCH MCHC RDW Plt Count MPV PT 16.1 H 20.7 H INR 1.6 2.0 Puncture Site Right radial Patient Temperature 98.6 O2 Saturation 82 L* ABG pH 7.46 H ABG pCO2 42 ABG pO2 50 L* ABG HCO3 30 H ABG O2 Content 11.7 L ABG Base Excess 5.6 H ABG Methemoglobin 1.4 Eligio Test Present Hemoglobin 10.1 L Carboxyhemoglobin 2.4 O2 Delivery Device Nasal cannula Liter Flow 6.00 Inspired O2 21 Critical Value Yes Sodium Potassium Chloride Carbon Dioxide Anion Gap BUN Creatinine Estimated GFR POC Glucose Random Glucose Calcium Phosphorus Albumin 01/30/18 13:17 WBC RBC Hgb Hct MCV MCH MCHC RDW Plt Count MPV PT INR Puncture Site Patient Temperature O2 Saturation ABG pH ABG pCO2 ABG pO2 ABG HCO3 ABG O2 Content ABG Base Excess ABG Methemoglobin Eligio Test Hemoglobin Carboxyhemoglobin O2 Delivery Device Liter Flow Inspired O2 Critical Value Sodium Potassium Chloride Carbon Dioxide Anion Gap BUN Creatinine Estimated GFR POC Glucose 155 H Random Glucose Calcium Phosphorus Albumin Result Diagrams: 01/28/18 06:38 01/28/18 06:38 Microbiology: Microbiology 01/24/18 13:40 Sputum - Expectorated Sputum Gram Stain - Final 01/24/18 13:40 Sputum - Expectorated Sputum Sputum Culture - Final Heavy growth normal respiratory marielos Imaging: Chest X-Ray 01/15/18 18:13 CONCLUSION: Mild interstitial prominence without focal airspace opacities. Slight improvement prior 12/12/2017. Stable cardiomegaly. Chest X-Ray 01/23/18 09:37 CONCLUSION: Mild interval increase in interstitial opacities of concern for pulmonary edema. Abdomen X-Ray 01/23/18 23:05 CONCLUSION: 1. Nonobstructive bowel gas pattern. Chest X-Ray 01/24/18 08:50 CONCLUSION: No appreciable change. Chest X-Ray 01/25/18 09:25 CONCLUSION: No significant change. Chest X-Ray 01/29/18 09:48 CONCLUSION: 1. Stable cardiomegaly and mild positive fluid balance. 2. No significant interval change. Chest CTA 01/30/18 00:00 CONCLUSION: 1. No evidence of pulmonary embolus. 2. Severe bilateral pulmonary parenchymal opacity with predominance at the dependent portions of the lungs. Difficult diagnosis includes pulmonary edema and infection. 3. Elongated lobulated nodular density in the right midlung following the major fissure likely represents loculated pleural effusion. 4. Enlarged pulmonary arteries suggesting pulmonary arterial hypertension. 5. Enlarged heart and small pericardial effusion. 6. Small left than right pleural effusions. 7. Mildly enlarged mediastinal lymph nodes, likely reactive. 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 Spiritual:Opthalmic Tech available. Legal:His daughter, Dinorah Greer, is his healthcare decision maker. Ethical issues impacting care: None noted. Important Contacts: Daughter: Dinorah Greer . Prognosis: His prognosis is guarded. He is short of breath at rest, remains in atrial fib , rate reasonably well controlled. He continues to complain of chest pain and given his recent left heart catheterization showing mild to moderate coronary disease, this is unlikely to be caused by anginal pain. He has end-stage renal disease, diabetes, hypertension and is at risk for further complications and decline. . Code Status: Full Code Plan: PLAN: Legal decision maker: The patient is capacitated to make his own decisions however requests assisted decision making with his daughter, Dinorah Greer. At this time he is too uncomfortable and symptomatic to complete his healthcare surrogate. Goals: Aggressive. Patient states he does not want to sign a DNR and would accept mechanical ventilation if required. CODE STATUS: FULL CODE SYMPTOMS: * Weakness: Progressively worsening, secondary to extended ICU status, bedbound status, severe respiratory insufficiency, increased work of breathing. Unable to effectively participate in PT due to dyspnea and weakness. * Dyspnea: Multifactorial to include past history of smoking, prior asbestos exposure, prior exposure to concrete dust, atrial fibrillation, as well as agent orange exposure in [place]. He is requiring high flow nasal cannula at 60 % FiO2, 30 L/min. He is being followed by pulmonology and is currently receiving Symbicort, DuoNeb and Zosyn. His respiratory status continues to decline and is at risk of requiring intubation. CTA showing severe bilateral pulmonary parenchymal opacity with predominance in the dependent portions of the lungs, pulmonary edema versus infection, loculated pleural effusion, possible pulmonary arterial hypertension and small pleural effusions. Palliative care will continue to follow the patient during hospital course as condition evolves, to assist patient/decision-maker with understanding of their medical conditions, weighing benefits/burdens of treatment options, for clarification of goals of treatment. Additionally will assist with any symptoms of palliative concern. . Attestation Attestation: To help prompt me to consider important information that might be impacting today's encounter and assessment, information from prior notes written by myself or my colleagues may have been "brought forward" into today's note. My signature on this note, however, is an attestation that I personally performed the exam, history, and/or decision-making noted today, and, unless otherwise indicated, the interactions with patient, family, and staff as well as the review of records all occurred today. I also attest that the listed assessment and stated plan reflect my best clinical judgment today based on the combination of historical information, prior notes, and today's exam/ interactions. When time spent is documented, it refers only to time spent today by the signer, or if indicated, combined time spent today by collaborating physician/nurse practitioner. .
[2018-01-30] MEDS: Heparin 10,000 UNITS/10 ML Vial (for IV use) OTHER PRN (16:23)
--- NOTE | 2018-01-30 21:13 | P.PNPL ---
Subjective Interval history: 72 YOWM with RF,CHF,PHT had CTA, no PE Had HD On high flow 02 Mild sob Physical Exam Vital signs: Vital Signs 01/29/18 22:00 01/29/18 22:07 01/30/18 00:00 Temperature 98.8 F Pulse Rate 90 98 H 95 H Respiratory Rate 14 14 Blood Pressure 104/58 L Pulse Oximetry 98 91 L 01/30/18 02:00 01/30/18 04:00 01/30/18 04:08 Temperature 98.0 F Pulse Rate 93 H 93 H 94 H Respiratory Rate 19 16 Blood Pressure 96/53 L Pulse Oximetry 93 L 01/30/18 06:00 01/30/18 07:00 01/30/18 08:00 Temperature 98.3 F Pulse Rate 64 91 H 92 H Respiratory Rate 15 15 Blood Pressure 115/66 104/63 Pulse Oximetry 94 L 89 L 01/30/18 08:28 01/30/18 09:00 01/30/18 09:21 Temperature Pulse Rate 87 93 H Respiratory Rate 28 H 17 16 Blood Pressure 155/72 H Pulse Oximetry 91 L 01/30/18 09:53 01/30/18 09:58 01/30/18 10:00 Temperature Pulse Rate 89 90 88 Respiratory Rate 20 13 15 Blood Pressure 163/112 H 148/60 H 125/59 L Pulse Oximetry 97 100 100 01/30/18 10:11 01/30/18 11:00 01/30/18 12:00 Temperature Pulse Rate 90 86 86 Respiratory Rate 13 13 13 Blood Pressure 135/65 112/58 L 113/58 L Pulse Oximetry 93 L 94 L 91 L 01/30/18 12:23 01/30/18 12:30 01/30/18 12:45 Temperature Pulse Rate 86 88 94 H Respiratory Rate 15 16 19 Blood Pressure 113/66 119/68 130/67 Pulse Oximetry 93 L 94 L 94 L 01/30/18 13:00 01/30/18 13:15 01/30/18 13:30 Temperature Pulse Rate 97 H 97 H 99 H Respiratory Rate 14 15 21 Blood Pressure 130/68 129/66 115/56 L Pulse Oximetry 95 93 L 91 L 01/30/18 13:45 01/30/18 14:00 01/30/18 14:15 Temperature Pulse Rate 103 H 102 H 102 H Respiratory Rate 17 15 18 Blood Pressure 108/58 L 111/59 L 106/53 L Pulse Oximetry 75 L 95 94 L 01/30/18 14:30 01/30/18 14:45 01/30/18 15:00 Temperature Pulse Rate 104 H 100 H 102 H Respiratory Rate 16 14 10 L Blood Pressure 108/55 L 104/59 L 101/57 L Pulse Oximetry 94 L 96 96 01/30/18 15:01 01/30/18 15:15 01/30/18 15:30 Temperature Pulse Rate 100 H 102 H 104 H Respiratory Rate 16 15 20 Blood Pressure 114/62 112/57 L Pulse Oximetry 95 94 L 01/30/18 15:45 01/30/18 16:00 01/30/18 18:00 Temperature Pulse Rate 104 H 104 H 104 H Respiratory Rate 20 15 Blood Pressure 114/57 L 112/59 L Pulse Oximetry 92 L 94 L 01/30/18 20:28 Temperature Pulse Rate 80 Respiratory Rate 16 Blood Pressure Pulse Oximetry 93 L Intake & Output 01/30/18 01/30/18 01/31/18 06:59 18:59 06:59 Intake Total 350 / 350 920 / 920 Output Total 100 / 100 3000 / 3000 Balance 250 / 250 -2080 / -2080 Weight 95 kg Intake: IV 50 / 50 Zosyn 2.25 GM Premix 50 ML @ 50 / 50 100 mls/hr IV.SIG Q12H PEDRO Rx#: [id number] Oral 300 / 300 920 / 920 Output: Urine 0 / 0 0 / 0 Stool 100 / 100 0 / 0 Hemodialysis Amount 3000 / 3000 Other: # Voids 1 # Incontinent Voids 0 Date of Last Bowel Movement 01/30/18 01/29/18 # Bowel Movements 2 0 # Incontinent Bowel Movements 2 0 GENERAL: Elderly Wm, sob SKIN: Warm and dry. HEAD: Normocephalic. EYES: No scleral icterus. No injection or drainage. NECK: Supple, trachea midline. No JVD or lymphadenopathy. CARDIOVASCULAR: Regular rate and rhythm without murmurs, gallops, or rubs. RESPIRATORY: Breath sounds equal bilaterally. No accessory muscle use. Insp rales GASTROINTESTINAL: Abdomen soft, non-tender, nondistended. MUSCULOSKELETAL: No cyanosis, or edema. BACK: Nontender without obvious deformity. No CVA tenderness. Assessment and Plan - Plan IMPRESSION: Hypoxic RF No PE Interstitial lung disease COPD ESRD PLAN: high flow 02 Will check Echo HD IV Solumedrol SQ Heparin
[2018-01-30] MEDS: Temazepam 15 MG Capsule PO PRN (22:22)
[2018-01-30] MEDS: Bisacodyl 10 MG Supp RECTAL PRN (22:48)
[2018-01-31] MEDS: Metoprolol Tartrate 25 MG Tablet PO SCH ×4 (04:48→21:20)
[2018-01-31] MEDS ORDERED: Dextrose 50% in Water 50 ML Vial IV.PUSH PRN (09:12)
--- NOTE | 2018-01-31 09:54 | P.PNCC ---
Subjective Subjective Remarks/Hospital Course: This is a 72yM with history of ESRD on HD who was recently admitted last month for supraventricular tachycardia. It appears from the records that normal sinus rhythm was restored prior to discharge home. He re-presented to the hospital with atrial fibrillation with rapid ventricular response which has been poorly responsive to esmolol infusion. It is noted that there is still a shortage of diltiazem infusions, so none is available to place the patient on. Dr. Waters with cardiology was consulted, as was Dr. Weinberg. The patient has also had hypotension during this hospital stay with most blood pressure readings between 80-100 systolic. This morning, Bystolic was started and was given together with amiodarone 400mg and metoprolol 25mg po. Approximately 2 hours after this, his blood pressure dropped into the 60s and 70s systolic. I was consulted by Dr. Wilcox to evaluate and manage his hemodynamics in the setting of poorly-controlled atrial fibrillation and hypotension. The patient does complain of light-headedness and a little chest discomfort which is new since his blood pressure has dropped into the 70s. He denies any other complaints and tolerated breakfast this AM. ROS otherwise negative. troponins have been serially negative this admission. I performed bedside critical care echocardiography and compared this to images obtained from last hospital admission on 11/2017. Given the poorly controlled nature of the patient's rate, wall motion and accurate ejection fraction are difficult to assess with accuracy. It does appear that the patient has relatively preserved EF and at most only mildly depressed LVEF. Aortic valve is sclerotic but appears unchanged from prior echo which calculated the valve area at ~2cm. no pericardial effusion. IVC is dilated around 2cm without respiratory variation. heart rate on my evaluation is 121. 8/2: Critical care reconsulted by Dr. Weinberg for worsening respiratory failure. Patient dropped O2 sats to 84% on 6 L nasal cannula. When I evaluated patient he was resting in bed. Placed him on high flow nasal cannula 30 L/min 60% FiO2 with which his O2 sats came up to 90%. 01/30: Remains on high flow nasal cannula. CT chest negative for PE shows consolidation bilateral lower lobes and a loculated effusion on the right. Defer to pulmonary regarding further recommendations. 01/31: Remains on high flow nasal cannula. Being dialyzed currently. On 30 L/ min 60% FiO2. O2 sats 96%. Feels that he is breathing a little better. Objective Vital Signs / I&O: Vital Signs 01/30/18 09:21 01/30/18 09:53 01/30/18 09:58 Temperature Pulse Rate 93 H 89 90 Respiratory Rate 16 20 13 Blood Pressure 155/72 H 163/112 H 148/60 H Pulse Oximetry 91 L 97 100 01/30/18 10:00 01/30/18 10:11 01/30/18 11:00 Temperature Pulse Rate 88 90 86 Respiratory Rate 15 13 13 Blood Pressure 125/59 L 135/65 112/58 L Pulse Oximetry 100 93 L 94 L 01/30/18 12:00 01/30/18 12:23 01/30/18 12:30 Temperature Pulse Rate 86 86 88 Respiratory Rate 13 15 16 Blood Pressure 113/58 L 113/66 119/68 Pulse Oximetry 91 L 93 L 94 L 01/30/18 12:45 01/30/18 13:00 01/30/18 13:15 Temperature Pulse Rate 94 H 97 H 97 H Respiratory Rate 19 14 15 Blood Pressure 130/67 130/68 129/66 Pulse Oximetry 94 L 95 93 L 01/30/18 13:30 01/30/18 13:45 01/30/18 14:00 Temperature Pulse Rate 99 H 103 H 102 H Respiratory Rate 21 17 15 Blood Pressure 115/56 L 108/58 L 111/59 L Pulse Oximetry 91 L 75 L 95 01/30/18 14:15 01/30/18 14:30 01/30/18 14:45 Temperature Pulse Rate 102 H 104 H 100 H Respiratory Rate 18 16 14 Blood Pressure 106/53 L 108/55 L 104/59 L Pulse Oximetry 94 L 94 L 96 01/30/18 15:00 01/30/18 15:01 01/30/18 15:15 Temperature Pulse Rate 102 H 100 H 102 H Respiratory Rate 10 L 16 15 Blood Pressure 101/57 L 114/62 Pulse Oximetry 96 95 01/30/18 15:30 01/30/18 15:45 01/30/18 16:00 Temperature Pulse Rate 104 H 104 H 104 H Respiratory Rate 20 20 15 Blood Pressure 112/57 L 114/57 L 112/59 L Pulse Oximetry 94 L 92 L 94 L 01/30/18 18:00 01/30/18 20:00 01/30/18 20:15 Temperature 98.7 F Pulse Rate 104 H 91 H 91 H Respiratory Rate 16 16 Blood Pressure 104/55 L 118/57 L Pulse Oximetry 90 L 88 L 01/30/18 20:28 01/30/18 20:30 01/30/18 20:46 Temperature 97.6 F Pulse Rate 80 90 95 H Respiratory Rate 16 32 H 11 L Blood Pressure 119/63 106/62 Pulse Oximetry 93 L 91 L 89 L 01/30/18 21:00 01/30/18 21:15 01/30/18 21:31 Temperature Pulse Rate 93 H 99 H 93 H Respiratory Rate 18 17 12 Blood Pressure 105/57 L 114/63 108/57 L Pulse Oximetry 88 L 92 L 01/30/18 21:45 01/30/18 22:00 01/30/18 22:15 Temperature Pulse Rate 95 H 97 H 93 H Respiratory Rate 21 23 19 Blood Pressure 104/56 L 103/61 121/62 Pulse Oximetry 89 L 90 L 90 L 01/30/18 22:55 01/30/18 22:56 01/30/18 23:00 Temperature Pulse Rate 96 H 94 H 96 H Respiratory Rate 7 L 4 L 14 Blood Pressure 117/63 106/63 106/62 Pulse Oximetry 87 L 91 L 92 L 01/31/18 00:00 01/31/18 01:02 01/31/18 02:00 Temperature 98.7 F Pulse Rate 92 H 90 85 Respiratory Rate 16 4 L 13 Blood Pressure 120/63 112/69 116/65 Pulse Oximetry 79 L 95 93 L 01/31/18 03:00 01/31/18 04:00 01/31/18 04:24 Temperature 98.7 F Pulse Rate 87 90 96 H Respiratory Rate 12 21 22 Blood Pressure 114/62 127/72 Pulse Oximetry 89 L 89 L 01/31/18 05:00 01/31/18 06:00 01/31/18 07:00 Temperature Pulse Rate 95 H 91 H 93 H Respiratory Rate 16 12 21 Blood Pressure 125/66 129/74 116/70 Pulse Oximetry 92 L 94 L 87 L 01/31/18 07:58 01/31/18 08:00 01/31/18 08:30 Temperature Pulse Rate 94 H 93 H Respiratory Rate 19 23 Blood Pressure 124/71 133/79 Pulse Oximetry 94 L 92 L 90 L 01/31/18 08:45 0804/18 09:00 Temperature Pulse Rate 98 H 101 H Respiratory Rate 25 H 16 Blood Pressure 139/72 130/68 Pulse Oximetry 92 L 91 L Intake & Output 01/30/18 01/31/18 01/31/18 18:59 06:59 18:59 Intake Total 970 / 970 350 / 350 Output Total 3000 / 3000 250 / 250 Balance -2029 / -2029 100 / 100 Weight 93.5 kg Intake: IV 50 / 50 Zosyn 2.25 GM Premix 50 ML @ 50 / 50 100 mls/hr IV.SIG Q12H PEDRO Rx#: [id number] Oral 920 / 920 350 / 350 Output: Urine 0 / 0 150 / 150 Stool 0 / 0 100 / 100 Hemodialysis Amount 3000 / 3000 Other: # Voids 1 1 # Incontinent Voids 0 Date of Last Bowel Movement 01/29/18 01/31/18 # Bowel Movements 0 3 # Incontinent Bowel Movements 0 3 Result Diagrams: 01/28/18 06:38 01/28/18 06:38 Objective Remarks: HEENT/Neuro: No pallor or icterus, tongue moist, CHAVA, Awake alert oriented 3 , nonfocal grossly, moving all 4 extremities Neck: No JVD Chest/pulmonary: Good air entry bilaterally, scattered rhonchi bilaterally, no wheezing or crackles. Cardiovascular: S1-S2 irregularly irregular no gallop or murmur GI/abdomen: Soft, nontender, bowel sounds present Extremities: Warm bilaterally, no edema Assessment and Plan - Assessment and Plan Plan: Assessment: 72yM with ESRD and poorly controlled atrial fibrillation and now persistent hypotension. In terms of his hypotension, I think the combination of AV gilbert blocking agents has caused significant hypotension in the setting of impaired cardiac output due to rate control. At this time we will hold his Bystolic since it was the newest medication added. I will add a single loading dose of digoxin 0.5mg iv x 1 to help assist in rate control while providing adequate contractility which may be impaired by the significant beta blockade we are providing. Certainly digoxin is not an ideal option for him to be on as a long-term agent given it's renal clearance. 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 I think he has been hypotensive enough during this hospital admission that if we are unable to regain control of his rate, he would be an excellent candidate for KAYLYNN /Cardioversion, but at present he has not been anticoagulated, so I would not pursue this emergently unless his hypotension was refractory or worsening and causing significant additional end-organ dysfunction. Certainly he is critically ill today with persistent hypotension. Active Problems: Acute respiratory failure CAD CHF Possible COPD Atrial Fibrillation with rapid ventricular response end-stage renal disease requiring hemodialysis Persistent hypotension secondary to poor cardiac output Neuro: Follow neuro status. Pain medications as needed. Cardiovascular: Status post cardiac cath. Being followed by Dr. Weinberg was considering AV gilbert ablation with pacemaker placement for refractory A. fib. Amiodarone dose decreased. Continue metoprolol, Midrin, Coumadin for anticoagulation. Fluid removal with hemodialysis. 2D echo with normal LV function however no comment on RVSP Pulmonary: Placed on high flow O2 at 30 L/min, 60% FiO2. CT chest with no evidence of PE however did show emphysematous changes bilateral lower lobe consolidation changes as well as fluid in interlobar fissure on the right. Pulmonary arteries are enlarged with probable pulmonary hypertension. Will resume IV Solu-Medrol. Continue inhaled steroids, bronchodilators per pulmonary. Patient probably has significant pulmonary hypertension-deferred to pulmonary. GI/liver: P.o. diet as tolerated Renal/: On hemodialysis per renal. ID: On Zosyn for empiric antibiotic coverage. Endocrine: Watch for hyperglycemia, SSI for glycemic control if needed Prophylaxis: Pepcid/SCDs. Anticoagulation with Coumadin. May require endotracheal intubation if respiratory status worsens. Time spent on critical care excluding procedures 30 minutes
[2018-01-31] MEDS: Senna/Docusate Sodium 8.6/50 MG Tablet PO SCH ×2 (10:19→21:21)
[2018-01-31] MEDS: Amiodarone 200 MG Tablet PO SCH (10:19)
[2018-01-31] MEDS: Hydrocortisone Acetate 25 MG Supp RECTAL SCH ×2 (10:20→21:21)
--- NOTE | 2018-01-31 11:25 | P.PNNP ---
Subjective Interval history: Patient seen during HD, on high flow o2, Breathing is better. Physical Exam Vital signs: Vital Signs 01/30/18 12:00 01/30/18 12:23 01/30/18 12:30 Temperature Pulse Rate 86 86 88 Respiratory Rate 13 15 16 Blood Pressure 113/58 L 113/66 119/68 Pulse Oximetry 91 L 93 L 94 L 01/30/18 12:45 01/30/18 13:00 01/30/18 13:15 Temperature Pulse Rate 94 H 97 H 97 H Respiratory Rate 19 14 15 Blood Pressure 130/67 130/68 129/66 Pulse Oximetry 94 L 95 93 L 01/30/18 13:30 01/30/18 13:45 01/30/18 14:00 Temperature Pulse Rate 99 H 103 H 102 H Respiratory Rate 21 17 15 Blood Pressure 115/56 L 108/58 L 111/59 L Pulse Oximetry 91 L 75 L 95 01/30/18 14:15 01/30/18 14:30 01/30/18 14:45 Temperature Pulse Rate 102 H 104 H 100 H Respiratory Rate 18 16 14 Blood Pressure 106/53 L 108/55 L 104/59 L Pulse Oximetry 94 L 94 L 96 01/30/18 15:00 01/30/18 15:01 01/30/18 15:15 Temperature Pulse Rate 102 H 100 H 102 H Respiratory Rate 10 L 16 15 Blood Pressure 101/57 L 114/62 Pulse Oximetry 96 95 01/30/18 15:30 01/30/18 15:45 01/30/18 16:00 Temperature Pulse Rate 104 H 104 H 104 H Respiratory Rate 20 20 15 Blood Pressure 112/57 L 114/57 L 112/59 L Pulse Oximetry 94 L 92 L 94 L 01/30/18 18:00 01/30/18 20:00 01/30/18 20:15 Temperature 98.7 F Pulse Rate 104 H 91 H 91 H Respiratory Rate 16 16 Blood Pressure 104/55 L 118/57 L Pulse Oximetry 90 L 88 L 01/30/18 20:28 01/30/18 20:30 01/30/18 20:46 Temperature 97.6 F Pulse Rate 80 90 95 H Respiratory Rate 16 32 H 11 L Blood Pressure 119/63 106/62 Pulse Oximetry 93 L 91 L 89 L 01/30/18 21:00 01/30/18 21:15 01/30/18 21:31 Temperature Pulse Rate 93 H 99 H 93 H Respiratory Rate 18 17 12 Blood Pressure 105/57 L 114/63 108/57 L Pulse Oximetry 88 L 92 L 01/30/18 21:45 01/30/18 22:00 01/30/18 22:15 Temperature Pulse Rate 95 H 97 H 93 H Respiratory Rate 21 23 19 Blood Pressure 104/56 L 103/61 121/62 Pulse Oximetry 89 L 90 L 90 L 01/30/18 22:55 01/30/18 22:56 01/30/18 23:00 Temperature Pulse Rate 96 H 94 H 96 H Respiratory Rate 7 L 4 L 14 Blood Pressure 117/63 106/63 106/62 Pulse Oximetry 87 L 91 L 92 L 01/31/18 00:00 01/31/18 01:02 01/31/18 02:00 Temperature 98.7 F Pulse Rate 92 H 90 85 Respiratory Rate 16 4 L 13 Blood Pressure 120/63 112/69 116/65 Pulse Oximetry 79 L 95 93 L 01/31/18 03:00 01/31/18 04:00 01/31/18 04:24 Temperature 98.7 F Pulse Rate 87 90 96 H Respiratory Rate 12 21 22 Blood Pressure 114/62 127/72 Pulse Oximetry 89 L 89 L 01/31/18 05:00 01/31/18 06:00 01/31/18 07:00 Temperature Pulse Rate 95 H 91 H 93 H Respiratory Rate 16 12 21 Blood Pressure 125/66 129/74 116/70 Pulse Oximetry 92 L 94 L 87 L 01/31/18 07:58 01/31/18 08:00 01/31/18 08:30 Temperature Pulse Rate 92 H 93 H Respiratory Rate 19 23 Blood Pressure 124/71 133/79 Pulse Oximetry 94 L 92 L 90 L 01/31/18 08:45 01/31/18 09:00 01/31/18 10:00 Temperature Pulse Rate 98 H 101 H 101 H Respiratory Rate 25 H 16 Blood Pressure 139/72 130/68 Pulse Oximetry 92 L 91 L Intake & Output 01/30/18 01/31/18 01/31/18 18:59 06:59 18:59 Intake Total 970 / 970 350 / 350 Output Total 3000 / 3000 250 / 250 Balance -2029 / -2029 100 / 100 Weight 93.5 kg Intake: IV 50 / 50 Zosyn 2.25 GM Premix 50 ML @ 50 / 50 100 mls/hr IV.SIG Q12H PEDRO Rx#: [id number] Oral 920 / 920 350 / 350 Output: Urine 0 / 0 150 / 150 Stool 0 / 0 100 / 100 Hemodialysis Amount 3000 / 3000 Other: # Voids 1 1 # Incontinent Voids 0 Date of Last Bowel Movement 01/29/18 01/31/18 01/31/18 # Bowel Movements 0 3 # Incontinent Bowel Movements 0 3 Narrative: GENERAL: In mild resp. acute distress. HEENT: NC, AT. CARDIOVASCULAR: Irregularly irregular rhythm. RESPIRATORY: No accessory muscle use. Crackles at the bases. GASTROINTESTINAL: Abdomen soft, non-tender, nondistended. Hepatic and splenic margins not palpable. Decreased bowel sounds. MUSCULOSKELETAL: Extremities without clubbing, cyanosis, mild edema. No obvious deformities. Cath site without hematoma. NEUROLOGICAL: Awake and alert. No obvious cranial nerve deficits. Assessment and Plan - Assessment (1) ESRD (end stage renal disease) on dialysis Code(s): N18.6 - End stage renal disease; Z99.2 - Dependence on renal dialysis Status: Acute Plan: Continue HD MWF. Monitor electrolytes intermittently. Avoid IVF administration. Protect left arm from procedures, has new AV access that is not mature. PermCath in place for HD use. Phosphorus level acceptable without binder therapy. High protein low K diet ordered. Also on Supplements. Needs nutritional support. HD again today, to remove more fluid. Trying to get 4 liters off. (2) Atrial fibrillation with RVR Code(s): I48.91 - Unspecified atrial fibrillation Status: Acute Plan: Rate is variable. REcently has been controlled. On PO Amiodarone. Hypotensive with change from Metoprolol to Carvedilol, it was changed back. Midodrine is ordered TID for hypotension. Continue with rate control measures. Cardiology following. KAYLYNN cardioversion and AV ablation with pacemaker are other options. Appreciate cardiology recommendations on how to proceed and to choose the best course of action. (3) Hypoxia Code(s): R09.02 - Hypoxemia Status: Acute Plan: He is on high flow oxygen. Ween if able. CT with contrast ordered. Fluid removal as tolerated with HD. (4) CHF (congestive heart failure) Code(s): I50.9 - Heart failure, unspecified Status: Acute Qualifiers: Heart failure type: unspecified Heart failure chronicity: unspecified Qualified Code(s): I50.9 - Heart failure, unspecified Plan: Stable. EF noted to be around 60%. Fluid removal with dialysis. (5) Anemia in CKD (chronic kidney disease) Code(s): N18.9 - Chronic kidney disease, unspecified; D63.1 - Anemia in chronic kidney disease Status: Acute Plan: On Epogen with dialysis. Hemoglobin is acceptable.
[2018-01-31] MEDS: MethylPREDNISolone Sod Succinate Inj 125 MG/2 ML Vial IV.PUSH SCH ×2 (12:23→23:06)
[2018-01-31] MEDS: Piperacil/Tazo 2.25 GM Premix 50 ML IV.SIG SCH ×2 (12:23→23:06)
[2018-01-31] MEDS: Insulin NovoLIN Regular Correctional Sugar Inj SQ SCH ×3 (12:24→21:19)
--- NOTE | 2018-01-31 13:18 | P.PNCA ---
Subjective Interval history: alert in nad Physical Exam Vital signs: Vital Signs 01/30/18 13:30 01/30/18 13:45 01/30/18 14:00 Temperature Pulse Rate 99 H 103 H 102 H Respiratory Rate 21 17 15 Blood Pressure 115/56 L 108/58 L 111/59 L Pulse Oximetry 91 L 75 L 95 01/30/18 14:15 01/30/18 14:30 01/30/18 14:45 Temperature Pulse Rate 102 H 104 H 100 H Respiratory Rate 18 16 14 Blood Pressure 106/53 L 108/55 L 104/59 L Pulse Oximetry 94 L 94 L 96 01/30/18 15:00 01/30/18 15:01 01/30/18 15:15 Temperature Pulse Rate 102 H 100 H 102 H Respiratory Rate 10 L 16 15 Blood Pressure 101/57 L 114/62 Pulse Oximetry 96 95 01/30/18 15:30 01/30/18 15:45 01/30/18 16:00 Temperature Pulse Rate 104 H 104 H 104 H Respiratory Rate 20 20 15 Blood Pressure 112/57 L 114/57 L 112/59 L Pulse Oximetry 94 L 92 L 94 L 01/30/18 18:00 01/30/18 20:00 01/30/18 20:15 Temperature 98.7 F Pulse Rate 104 H 91 H 91 H Respiratory Rate 16 16 Blood Pressure 104/55 L 118/57 L Pulse Oximetry 90 L 88 L 01/30/18 20:28 01/30/18 20:30 01/30/18 20:46 Temperature 97.6 F Pulse Rate 80 90 95 H Respiratory Rate 16 32 H 11 L Blood Pressure 119/63 106/62 Pulse Oximetry 93 L 91 L 89 L 01/30/18 21:00 01/30/18 21:15 01/30/18 21:31 Temperature Pulse Rate 93 H 99 H 93 H Respiratory Rate 18 17 12 Blood Pressure 105/57 L 114/63 108/57 L Pulse Oximetry 88 L 92 L 01/30/18 21:45 01/30/18 22:00 01/30/18 22:15 Temperature Pulse Rate 95 H 97 H 93 H Respiratory Rate 21 23 19 Blood Pressure 104/56 L 103/61 121/62 Pulse Oximetry 89 L 90 L 90 L 01/30/18 22:55 01/30/18 22:56 01/30/18 23:00 Temperature Pulse Rate 96 H 94 H 96 H Respiratory Rate 7 L 4 L 14 Blood Pressure 117/63 106/63 106/62 Pulse Oximetry 87 L 91 L 92 L 01/31/18 00:00 01/31/18 01:02 01/31/18 02:00 Temperature 98.7 F Pulse Rate 92 H 90 85 Respiratory Rate 16 4 L 13 Blood Pressure 120/63 112/69 116/65 Pulse Oximetry 79 L 95 93 L 01/31/18 03:00 01/31/18 04:00 01/31/18 04:24 Temperature 98.7 F Pulse Rate 87 90 96 H Respiratory Rate 12 21 22 Blood Pressure 114/62 127/72 Pulse Oximetry 89 L 89 L 01/31/18 05:00 01/31/18 06:00 01/31/18 07:00 Temperature Pulse Rate 95 H 91 H 93 H Respiratory Rate 16 12 21 Blood Pressure 125/66 129/74 116/70 Pulse Oximetry 92 L 94 L 87 L 01/31/18 07:58 01/31/18 08:00 01/31/18 08:30 Temperature Pulse Rate 92 H 93 H Respiratory Rate 19 23 Blood Pressure 124/71 133/79 Pulse Oximetry 94 L 92 L 90 L 01/31/18 08:45 01/31/18 09:00 01/31/18 09:15 Temperature Pulse Rate 98 H 101 H 102 H Respiratory Rate 25 H 16 16 Blood Pressure 139/72 130/68 127/61 Pulse Oximetry 92 L 91 L 88 L 01/31/18 09:30 01/31/18 09:45 01/31/18 10:00 Temperature 97.8 F Pulse Rate 99 H 103 H 103 H Respiratory Rate 25 H 26 H 22 Blood Pressure 131/56 L 130/60 113/58 L Pulse Oximetry 93 L 90 L 93 L 01/31/18 10:15 01/31/18 10:17 01/31/18 10:30 Temperature Pulse Rate 105 H 105 H 108 H Respiratory Rate 22 25 H 21 Blood Pressure 94/55 L 96/62 L 103/54 L Pulse Oximetry 93 L 88 L 92 L 01/31/18 10:46 01/31/18 11:01 01/31/18 11:15 Temperature Pulse Rate 100 H 99 H 93 H Respiratory Rate 24 28 H 15 Blood Pressure 116/53 L 108/55 L 94/50 L Pulse Oximetry 95 86 L 93 L 01/31/18 11:31 01/31/18 11:45 01/31/18 12:00 Temperature Pulse Rate 89 96 H 101 H Respiratory Rate 20 14 31 H Blood Pressure 104/63 109/56 L 112/55 L Pulse Oximetry 85 L 98 92 L Intake & Output 01/30/18 01/31/18 01/31/18 18:59 06:59 18:59 Intake Total 970 / 970 400 / 400 Output Total 3000 / 3000 250 / 250 5500 / 5500 Balance -2030 / -2030 150 / 150 -5500 / -5500 Weight 93.5 kg Intake: IV 50 / 50 50 / 50 Zosyn 2.25 GM Premix 50 ML @ 50 / 50 50 / 50 100 mls/hr IV.SIG Q12H PEDRO Rx#: [id number] Oral 920 / 920 350 / 350 Output: Urine 0 / 0 150 / 150 Stool 0 / 0 100 / 100 Hemodialysis Amount 3000 / 3000 5500 / 5500 Other: # Voids 1 1 # Incontinent Voids 0 Date of Last Bowel Movement 01/29/18 01/31/18 01/31/18 # Bowel Movements 0 3 # Incontinent Bowel Movements 0 3 Assessment and Plan - Assessment (1) Atrial fibrillation with rapid ventricular response Code(s): I48.91 - Unspecified atrial fibrillation Status: Acute (2) CHF (congestive heart failure) Code(s): I50.9 - Heart failure, unspecified Status: Acute (3) Chronic kidney disease with end stage renal failure on dialysis Code(s): N18.6 - End stage renal disease; Z99.2 - Dependence on renal dialysis Status: Acute (4) Atrial fibrillation with RVR Code(s): I48.91 - Unspecified atrial fibrillation Status: Acute (5) ESRD (end stage renal disease) on dialysis Code(s): N18.6 - End stage renal disease; Z99.2 - Dependence on renal dialysis Status: Acute - Plan 1.) Afib with rvr - Dr Weinberg started amio and coumadin, rates improved, below 100 's, coumadin restarted, d/w Dr Weinberg, he will see patient and readjust meds as needed; intolerant of coreg due to hypotension, will increase amio to 200 mg tid , Dr Weinberg to f/u, d/w patient and nurse at bedside. Patient tells me he was seen by Dr Weinberg who is planning device placement 2.) CAD - continue, lipitor, coumadin, f/u inr in am (2) CHF (congestive heart failure) Qualifiers: Heart failure type: unspecified Heart failure chronicity: unspecified Qualified Code(s): I50.9 - Heart failure, unspecified
[2018-01-31 13:30] LABS: INR 3.3 Ratio; Prothrombin Time 33.4 sec (9.8-11.6)
[2018-01-31] MEDS: Budesonide-Formoterol 160/4.5 MCG 6 GM Inhaler INH SCH ×2 (13:47→21:21)
--- NOTE | 2018-01-31 15:07 | P.PNPL ---
Subjective Interval history: 72 YOWM with RF,CHF,PHT had CTA, no PE Had HD On high flow 02 Feels breathing better after HD Physical Exam Vital signs: Vital Signs 01/30/18 15:15 01/30/18 15:30 01/30/18 15:45 Temperature Pulse Rate 102 H 104 H 104 H Respiratory Rate 15 20 20 Blood Pressure 114/62 112/57 L 114/57 L Pulse Oximetry 95 94 L 92 L 01/30/18 16:00 01/30/18 18:00 01/30/18 20:00 Temperature 98.7 F Pulse Rate 104 H 104 H 91 H Respiratory Rate 15 16 Blood Pressure 112/59 L 104/55 L Pulse Oximetry 94 L 90 L 01/30/18 20:15 01/30/18 20:28 01/30/18 20:30 Temperature 97.6 F Pulse Rate 91 H 80 90 Respiratory Rate 16 16 32 H Blood Pressure 118/57 L 119/63 Pulse Oximetry 88 L 93 L 91 L 01/30/18 20:46 01/30/18 21:00 01/30/18 21:15 Temperature Pulse Rate 95 H 93 H 99 H Respiratory Rate 11 L 18 17 Blood Pressure 106/62 105/57 L 114/63 Pulse Oximetry 89 L 88 L 01/30/18 21:31 01/30/18 21:45 01/30/18 22:00 Temperature Pulse Rate 93 H 95 H 97 H Respiratory Rate 12 21 23 Blood Pressure 108/57 L 104/56 L 103/61 Pulse Oximetry 92 L 89 L 90 L 01/30/18 22:15 01/30/18 22:55 01/30/18 22:56 Temperature Pulse Rate 93 H 96 H 94 H Respiratory Rate 19 7 L 4 L Blood Pressure 121/62 117/63 106/63 Pulse Oximetry 90 L 87 L 91 L 01/30/18 23:00 01/31/18 00:00 01/31/18 01:02 Temperature 98.7 F Pulse Rate 96 H 92 H 90 Respiratory Rate 14 16 4 L Blood Pressure 106/62 120/63 112/69 Pulse Oximetry 92 L 79 L 95 01/31/18 02:00 01/31/18 03:00 01/31/18 04:00 Temperature 98.7 F Pulse Rate 85 87 90 Respiratory Rate 13 12 21 Blood Pressure 116/65 114/62 127/72 Pulse Oximetry 93 L 89 L 89 L 01/31/18 04:24 01/31/18 05:00 01/31/18 06:00 Temperature Pulse Rate 96 H 95 H 91 H Respiratory Rate 22 16 12 Blood Pressure 125/66 129/74 Pulse Oximetry 92 L 94 L 01/31/18 07:00 01/31/18 07:58 01/31/18 08:00 Temperature Pulse Rate 93 H 92 H Respiratory Rate 21 19 Blood Pressure 116/70 124/71 Pulse Oximetry 87 L 94 L 92 L 01/31/18 08:30 01/31/18 08:45 01/31/18 09:00 Temperature Pulse Rate 93 H 98 H 101 H Respiratory Rate 23 25 H 16 Blood Pressure 133/79 139/72 130/68 Pulse Oximetry 90 L 92 L 91 L 01/31/18 09:15 01/31/18 09:30 01/31/18 09:45 Temperature 97.8 F Pulse Rate 102 H 99 H 103 H Respiratory Rate 16 25 H 26 H Blood Pressure 127/61 131/56 L 130/60 Pulse Oximetry 88 L 93 L 90 L 01/31/18 10:00 01/31/18 10:15 01/31/18 10:17 Temperature Pulse Rate 103 H 105 H 105 H Respiratory Rate 22 22 25 H Blood Pressure 113/58 L 94/55 L 96/62 L Pulse Oximetry 93 L 93 L 88 L 01/31/18 10:30 01/31/18 10:46 01/31/18 11:01 Temperature Pulse Rate 108 H 100 H 99 H Respiratory Rate 21 24 28 H Blood Pressure 103/54 L 116/53 L 108/55 L Pulse Oximetry 92 L 95 86 L 01/31/18 11:15 01/31/18 11:31 01/31/18 11:45 Temperature Pulse Rate 93 H 89 96 H Respiratory Rate 15 20 14 Blood Pressure 94/50 L 104/63 109/56 L Pulse Oximetry 93 L 85 L 98 01/31/18 12:00 01/31/18 14:00 Temperature Pulse Rate 101 H 105 H Respiratory Rate 31 H Blood Pressure 112/55 L Pulse Oximetry 92 L Intake & Output 01/30/18 01/31/18 01/31/18 18:59 06:59 18:59 Intake Total 970 / 970 400 / 400 Output Total 3000 / 3000 250 / 250 5500 / 5500 Balance -2029 / -2029 150 / 150 -5500 / -5500 Weight 93.5 kg Intake: IV 50 / 50 50 / 50 Zosyn 2.25 GM Premix 50 ML @ 50 / 50 50 / 50 100 mls/hr IV.SIG Q12H PEDRO Rx#: [id number] Oral 920 / 920 350 / 350 Output: Urine 0 / 0 150 / 150 Stool 0 / 0 100 / 100 Hemodialysis Amount 3000 / 3000 5500 / 5500 Other: # Voids 1 1 # Incontinent Voids 0 Date of Last Bowel Movement 01/29/18 01/31/18 01/31/18 # Bowel Movements 0 3 # Incontinent Bowel Movements 0 3 GENERAL: Elderly WM, mild sob SKIN: Warm and dry. HEAD: Normocephalic. EYES: No scleral icterus. No injection or drainage. NECK: Supple, trachea midline. No JVD or lymphadenopathy. CARDIOVASCULAR: Regular rate and rhythm without murmurs, gallops, or rubs. RESPIRATORY: Breath sounds equal bilaterally. No accessory muscle use. GASTROINTESTINAL: Abdomen soft, non-tender, nondistended. MUSCULOSKELETAL: No cyanosis, or edema. BACK: Nontender without obvious deformity. No CVA tenderness. Assessment and Plan - Plan IMPRESSION: Hypoxic RF No PE Interstitial lung disease COPD ESRD PLAN: high flow 02 Will check Echo HD IV Solumedrol SQ Heparin DW pt and his at BS
[2018-01-31] MEDS: Temazepam 15 MG Capsule PO PRN (23:10)
[2018-02-01] MEDS: Bisacodyl 10 MG Supp RECTAL PRN (03:41)
[2018-02-01] MEDS: Metoprolol Tartrate 25 MG Tablet PO SCH ×4 (03:41→21:36)
[2018-02-01 06:20] LABS: Hemoglobin 10.8 gm/dL (13.0-17.0); Lymph # (Auto) 0.3 th/mm3 (1.0-4.8); Lymph % (Auto) 2.5 % (9.0-44.0); Mean Corpuscular HGB Conc 31.7 % (32.0-36.0); Mean Corpuscular Hemoglobin 27.7 pg (27.0-34.0); Mean Corpuscular Volume 87.5 fL (80.0-100.0); Mean Platelet Volume 9.1 fL (7.0-11.0); Mono # (Auto) 0.3 th/mm3 (0.0-0.9); Mono % (Auto) 3.2 % (0.0-8.0); Neut # (Auto) 9.6 th/mm3 (1.8-7.7); Neut % (Auto) 94.3 % (16.0-70.0); Platelet Count 194 th/mm3 (150-450); Red Blood Count 3.89 mil/mm3 (4.50-5.90); Red Cell Distribution Width 17.8 % (11.6-17.2); White Blood Count 10.2 th/mm3 (4.0-11.0)
[2018-02-01 06:26] LABS: INR 3.4 Ratio
[2018-02-01 06:49] LABS: Alanine Aminotransferase 25 U/L (12-78); Albumin 3.1 g/dL (3.4-5.0); Anion Gap 12 meq/L (5-15); Aspartate Aminotransferase 15 U/L (15-37); Blood Urea Nitrogen 46 mg/dL (7-18); Calcium 9.4 mg/dL (8.5-10.1); Carbon Dioxide 26.8 meq/L (21.0-32.0); Chloride 97 meq/L (98-107); Glomerular Filtration Rate 9 mL/min (>89); Glucose,Random 211 mg/dL (74-106); Potassium 4.6 meq/L (3.5-5.1); Sodium 136 meq/L (136-145)
[2018-02-01 06:51] LABS: Alkaline Phosphatase 133 U/L (45-117); Total Protein 7.8 g/dL (6.4-8.2)
[2018-02-01] MEDS: Insulin NovoLIN Regular Correctional Sugar Inj SQ SCH ×4 (09:10→21:40)
[2018-02-01] MEDS: Amiodarone 200 MG Tablet PO SCH (09:12)
[2018-02-01] MEDS: Budesonide-Formoterol 160/4.5 MCG 6 GM Inhaler INH SCH ×2 (09:12→23:00)
[2018-02-01] MEDS: Senna/Docusate Sodium 8.6/50 MG Tablet PO SCH ×2 (09:12→21:39)
--- NOTE | 2018-02-01 10:39 | P.PNCC ---
Subjective Subjective Remarks/Hospital Course: This is a 72yM with history of ESRD on HD who was recently admitted last month for supraventricular tachycardia. It appears from the records that normal sinus rhythm was restored prior to discharge home. He re-presented to the hospital with atrial fibrillation with rapid ventricular response which has been poorly responsive to esmolol infusion. It is noted that there is still a shortage of diltiazem infusions, so none is available to place the patient on. Dr. Waters with cardiology was consulted, as was Dr. Weinberg. The patient has also had hypotension during this hospital stay with most blood pressure readings between 80-100 systolic. This morning, Bystolic was started and was given together with amiodarone 400mg and metoprolol 25mg po. Approximately 2 hours after this, his blood pressure dropped into the 60s and 70s systolic. I was consulted by Dr. Wilcox to evaluate and manage his hemodynamics in the setting of poorly-controlled atrial fibrillation and hypotension. The patient does complain of light-headedness and a little chest discomfort which is new since his blood pressure has dropped into the 70s. He denies any other complaints and tolerated breakfast this AM. ROS otherwise negative. troponins have been serially negative this admission. I performed bedside critical care echocardiography and compared this to images obtained from last hospital admission on 11/2017. Given the poorly controlled nature of the patient's rate, wall motion and accurate ejection fraction are difficult to assess with accuracy. It does appear that the patient has relatively preserved EF and at most only mildly depressed LVEF. Aortic valve is sclerotic but appears unchanged from prior echo which calculated the valve area at ~2cm. no pericardial effusion. IVC is dilated around 2cm without respiratory variation. heart rate on my evaluation is 121. 8/2: Critical care reconsulted by Dr. Weinberg for worsening respiratory failure. Patient dropped O2 sats to 84% on 6 L nasal cannula. When I evaluated patient he was resting in bed. Placed him on high flow nasal cannula 30 L/min 60% FiO2 with which his O2 sats came up to 90%. 01/30: Remains on high flow nasal cannula. CT chest negative for PE shows consolidation bilateral lower lobes and a loculated effusion on the right. Defer to pulmonary regarding further recommendations. 01/31: Remains on high flow nasal cannula. Being dialyzed currently. On 30 L/ min 60% FiO2. O2 sats 96%. Feels that he is breathing a little better. 8: On high flow nasal cannula at 20 L/min 50% FiO2. Shortness of breath gradually improving. Objective Vital Signs / I&O: Vital Signs 01/31/18 10:46 01/31/18 11:01 01/31/18 11:15 Temperature Pulse Rate 100 H 99 H 93 H Respiratory Rate 24 28 H 15 Blood Pressure 116/53 L 108/55 L 94/50 L Pulse Oximetry 95 86 L 93 L 01/31/18 11:31 01/31/18 11:45 01/31/18 12:00 Temperature Pulse Rate 89 96 H 101 H Respiratory Rate 20 14 31 H Blood Pressure 104/63 109/56 L 112/55 L Pulse Oximetry 85 L 98 92 L 01/31/18 13:00 01/31/18 14:00 01/31/18 14:01 Temperature 98.2 F Pulse Rate 103 H 106 H 107 H Respiratory Rate 19 29 H 18 Blood Pressure 109/64 133/66 Pulse Oximetry 97 91 L 89 L 01/31/18 15:00 01/31/18 16:00 01/31/18 18:00 Temperature Pulse Rate 105 H 107 H 107 H Respiratory Rate 18 19 Blood Pressure 121/62 Pulse Oximetry 90 L 95 01/31/18 19:52 01/31/18 20:00 01/31/18 22:00 Temperature 98.7 F Pulse Rate 104 H 106 H 108 H Respiratory Rate 18 30 H Blood Pressure 124/70 Pulse Oximetry 95 93 L 02/01/18 00:00 02/01/18 01:18 02/01/18 02:00 Temperature 98.9 F Pulse Rate 107 H 100 H Respiratory Rate 30 H 17 Blood Pressure 113/68 Pulse Oximetry 96 02/01/18 04:00 02/01/18 04:16 02/01/18 06:00 Temperature 98.8 F Pulse Rate 97 H 99 H 97 H Respiratory Rate 16 16 Blood Pressure 124/71 Pulse Oximetry 96 02/01/18 07:00 02/01/18 07:29 02/01/18 08:00 Temperature 97.5 F L Pulse Rate 103 H 99 H Respiratory Rate 8 L 25 H Blood Pressure 120/73 135/71 Pulse Oximetry 96 95 91 L Intake & Output 01/31/18 02/01/18 02/01/18 18:59 06:59 18:59 Intake Total 600 / 600 300 / 300 Output Total 68507 / 00435 41 / 41 Balance -61649 / -02918 259 / 259 Weight 94.5 kg Intake: IV 100 / 100 Zosyn 2.25 GM Premix 50 ML @ 100 / 100 100 mls/hr IV.SIG Q12H PEDRO Rx#: [id number] Oral 600 / 600 200 / 200 Output: Urine 0 / 0 0 / 0 Stool 0 / 0 1 / 1 Urine/Stool Mix 40 / 40 Hemodialysis Amount [id number] / [id number] Other: # Voids 1 # Incontinent Voids 0 Date of Last Bowel Movement 01/31/18 01/31/18 01/31/18 # Bowel Movements 1 1 # Incontinent Bowel Movements 1 1 Result Diagrams: 02/01/18 04:40 02/01/18 04:40 Objective Remarks: HEENT/Neuro: No pallor or icterus, tongue moist, CHAVA, Awake alert oriented 3 , nonfocal grossly, moving all 4 extremities Neck: No JVD Chest/pulmonary: Good air entry bilaterally, scattered rhonchi bilaterally, no wheezing or crackles. Cardiovascular: S1-S2 irregularly irregular no gallop or murmur GI/abdomen: Soft, nontender, bowel sounds present Extremities: Warm bilaterally, no edema Assessment and Plan - Assessment and Plan Plan: Assessment: 72yM with ESRD and poorly controlled atrial fibrillation and now persistent hypotension. In terms of his hypotension, I think the combination of AV gilbert blocking agents has caused significant hypotension in the setting of impaired cardiac output due to rate control. At this time we will hold his Bystolic since it was the newest medication added. I will add a single loading dose of digoxin 0.5mg iv x 1 to help assist in rate control while providing adequate contractility which may be impaired by the significant beta blockade we are providing. Certainly digoxin is not an ideal option for him to be on as a long-term agent given it's renal clearance. 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 I think he has been hypotensive enough during this hospital admission that if we are unable to regain control of his rate, he would be an excellent candidate for KAYLYNN /Cardioversion, but at present he has not been anticoagulated, so I would not pursue this emergently unless his hypotension was refractory or worsening and causing significant additional end-organ dysfunction. Certainly he is critically ill today with persistent hypotension. Active Problems: Acute respiratory failure CAD CHF Possible COPD Atrial Fibrillation with rapid ventricular response end-stage renal disease requiring hemodialysis Persistent hypotension secondary to poor cardiac output Neuro: Follow neuro status. Pain medications as needed. Cardiovascular: Status post cardiac cath. Being followed by Dr. Weinberg was considering AV gilbert ablation with pacemaker placement for refractory A. fib. Amiodarone dose decreased. Continue metoprolol, Midrin, Coumadin for anticoagulation. Fluid removal with hemodialysis. 2D echo with normal LV function however no comment on RVSP Pulmonary: Placed on high flow O2 at 30 L/min, 60% FiO2. CT chest with no evidence of PE however did show emphysematous changes bilateral lower lobe consolidation changes as well as fluid in interlobar fissure on the right. Pulmonary arteries are enlarged with probable pulmonary hypertension. Will resume IV Solu-Medrol. Continue inhaled steroids, bronchodilators per pulmonary. Patient probably has significant pulmonary hypertension-deferred to pulmonary. GI/liver: P.o. diet as tolerated Renal/: On hemodialysis per renal. ID: On Zosyn for empiric antibiotic coverage. Endocrine: Watch for hyperglycemia, SSI for glycemic control if needed Prophylaxis: Pepcid/SCDs. Anticoagulation with Coumadin. May require endotracheal intubation if respiratory status worsens. Time spent on critical care excluding procedures 30 minutes
[2018-02-01] MEDS: Piperacil/Tazo 2.25 GM Premix 50 ML IV.SIG SCH ×2 (11:03→22:58)
--- NOTE | 2018-02-01 11:45 | P.PNCA ---
Subjective Interval history: alert in nad Physical Exam Vital signs: Vital Signs 01/31/18 11:45 01/31/18 12:00 01/31/18 13:00 Temperature Pulse Rate 96 H 101 H 103 H Respiratory Rate 14 31 H 19 Blood Pressure 109/56 L 112/55 L 109/64 Pulse Oximetry 98 92 L 97 01/31/18 14:00 01/31/18 14:01 01/31/18 15:00 Temperature 98.2 F Pulse Rate 106 H 107 H 105 H Respiratory Rate 29 H 18 18 Blood Pressure 133/66 121/62 Pulse Oximetry 91 L 89 L 90 L 01/31/18 16:00 01/31/18 18:00 01/31/18 19:52 Temperature Pulse Rate 107 H 107 H 104 H Respiratory Rate 19 18 Blood Pressure Pulse Oximetry 95 95 01/31/18 20:00 01/31/18 22:00 02/01/18 00:00 Temperature 98.7 F Pulse Rate 106 H 108 H 107 H Respiratory Rate 30 H 30 H Blood Pressure 124/70 Pulse Oximetry 93 L 02/01/18 01:18 02/01/18 02:00 02/01/18 04:00 Temperature 98.9 F 98.8 F Pulse Rate 100 H 97 H Respiratory Rate 17 16 Blood Pressure 113/68 124/71 Pulse Oximetry 96 96 02/01/18 04:16 02/01/18 06:00 02/01/18 07:00 Temperature Pulse Rate 99 H 97 H 103 H Respiratory Rate 16 8 L Blood Pressure 120/73 Pulse Oximetry 96 02/01/18 07:29 02/01/18 08:00 02/01/18 10:00 Temperature 97.5 F L Pulse Rate 99 H 101 H Respiratory Rate 25 H Blood Pressure 135/71 Pulse Oximetry 95 91 L Intake & Output 01/31/18 02/01/18 02/01/18 18:59 06:59 18:59 Intake Total 600 / 600 300 / 300 Output Total 29716 / 18715 41 / 41 Balance -81147 / -42860 259 / 259 Weight 94.5 kg Intake: IV 100 / 100 Zosyn 2.25 GM Premix 50 ML @ 100 / 100 100 mls/hr IV.SIG Q12H PEDRO Rx#: [id number] Oral 600 / 600 200 / 200 Output: Urine 0 / 0 0 / 0 Stool 0 / 0 1 / 1 Urine/Stool Mix 40 / 40 Hemodialysis Amount 90339 / 98385 Other: # Voids 1 # Incontinent Voids 0 Date of Last Bowel Movement 01/31/18 01/31/18 01/31/18 # Bowel Movements 1 1 # Incontinent Bowel Movements 1 1 Assessment and Plan - Assessment (1) Atrial fibrillation with rapid ventricular response Code(s): I48.91 - Unspecified atrial fibrillation Status: Acute (2) CHF (congestive heart failure) Code(s): I50.9 - Heart failure, unspecified Status: Acute (3) Chronic kidney disease with end stage renal failure on dialysis Code(s): N18.6 - End stage renal disease; Z99.2 - Dependence on renal dialysis Status: Acute (4) Atrial fibrillation with RVR Code(s): I48.91 - Unspecified atrial fibrillation Status: Acute (5) ESRD (end stage renal disease) on dialysis Code(s): N18.6 - End stage renal disease; Z99.2 - Dependence on renal dialysis Status: Acute - Plan 1.) Afib with rvr - Dr Weinberg started amio and coumadin, rates improved, below 100 's, coumadin restarted, d/w Dr Weinberg, he will see patient and readjust meds as needed; intolerant of coreg due to hypotension, will increase amio to 200 mg tid , Dr Weinberg to f/u, d/w patient and nurse at bedside. Patient tells me he was seen by Dr Weinberg who is planning device placement 2.) CAD - continue, lipitor, hold coumadin, f/u inr in am (2) CHF (congestive heart failure) Qualifiers: Heart failure type: unspecified Heart failure chronicity: unspecified Qualified Code(s): I50.9 - Heart failure, unspecified
[2018-02-01] MEDS: MethylPREDNISolone Sod Succinate Inj 125 MG/2 ML Vial IV.PUSH SCH (12:26)
--- NOTE | 2018-02-01 13:58 | P.PNPL ---
Subjective Interval history: 72 YOWM with RF,CHF,PHT had CTA, no PE Had HD On high flow 02 Did't sleep well, had Constipation Physical Exam Vital signs: Vital Signs 01/31/18 14:00 01/31/18 14:01 01/31/18 15:00 Temperature 98.2 F Pulse Rate 106 H 107 H 105 H Respiratory Rate 29 H 18 18 Blood Pressure 133/66 121/62 Pulse Oximetry 91 L 89 L 90 L 01/31/18 16:00 01/31/18 18:00 01/31/18 19:52 Temperature Pulse Rate 107 H 107 H 104 H Respiratory Rate 19 18 Blood Pressure Pulse Oximetry 95 95 01/31/18 20:00 01/31/18 22:00 02/01/18 00:00 Temperature 98.7 F Pulse Rate 106 H 108 H 107 H Respiratory Rate 30 H 30 H Blood Pressure 124/70 Pulse Oximetry 93 L 02/01/18 01:18 02/01/18 02:00 02/01/18 04:00 Temperature 98.9 F 98.8 F Pulse Rate 100 H 97 H Respiratory Rate 17 16 Blood Pressure 113/68 124/71 Pulse Oximetry 96 96 02/01/18 04:16 02/01/18 06:00 02/01/18 07:00 Temperature Pulse Rate 99 H 97 H 103 H Respiratory Rate 16 8 L Blood Pressure 120/73 Pulse Oximetry 96 02/01/18 07:29 02/01/18 08:00 02/01/18 09:00 Temperature 97.5 F L Pulse Rate 99 H 99 H Respiratory Rate 25 H 12 Blood Pressure 135/71 128/81 Pulse Oximetry 95 91 L 92 L 02/01/18 10:00 02/01/18 11:00 02/01/18 12:00 Temperature Pulse Rate 101 H 101 H 106 H Respiratory Rate 15 15 21 Blood Pressure 130/74 98/64 L 106/64 Pulse Oximetry 94 L 93 L 84 L 02/01/18 13:01 Temperature Pulse Rate 100 H Respiratory Rate 23 Blood Pressure 105/68 Pulse Oximetry 92 L Intake & Output 01/31/18 02/01/18 02/01/18 18:59 06:59 18:59 Intake Total 600 / 600 300 / 300 50 / 50 Output Total 04555 / 34400 41 / 41 Balance -78248 / -65605 259 / 259 50 / 50 Weight 94.5 kg Intake: IV 100 / 100 50 / 50 Zosyn 2.25 GM Premix 50 ML @ 100 / 100 50 / 50 100 mls/hr IV.SIG Q12H PEDRO Rx#: [id number] Oral 600 / 600 200 / 200 Output: Urine 0 / 0 0 / 0 Stool 0 / 0 1 / 1 Urine/Stool Mix 40 / 40 Hemodialysis Amount [id number] / [id number] Other: # Voids 1 # Incontinent Voids 0 Date of Last Bowel Movement 01/31/18 01/31/18 02/01/18 # Bowel Movements 1 1 # Incontinent Bowel Movements 1 1 GENERAL: Elderly Wm, mild sob SKIN: Warm and dry. HEAD: Normocephalic. EYES: No scleral icterus. No injection or drainage. NECK: Supple, trachea midline. No JVD or lymphadenopathy. CARDIOVASCULAR: Regular rate and rhythm without murmurs, gallops, or rubs. RESPIRATORY: Breath sounds equal bilaterally. No accessory muscle use. GASTROINTESTINAL: Abdomen soft, non-tender, nondistended. MUSCULOSKELETAL: No cyanosis, or edema. BACK: Nontender without obvious deformity. No CVA tenderness. Assessment and Plan - Plan IMPRESSION: Hypoxic RF No PE Interstitial lung disease COPD ESRD PLAN: high flow 02 Will check Echo HD IV Solumedrol SQ Heparin will FU in AM.
--- NOTE | 2018-02-01 17:42 | P.PNNP ---
Subjective Interval history: Patient is alert, breathing is better, still with high flow O2. Physical Exam Vital signs: Vital Signs 01/31/18 18:00 01/31/18 19:52 01/31/18 20:00 Temperature 98.7 F Pulse Rate 107 H 104 H 106 H Respiratory Rate 18 30 H Blood Pressure 124/70 Pulse Oximetry 95 93 L 01/31/18 22:00 02/01/18 00:00 02/01/18 01:18 Temperature 98.9 F Pulse Rate 108 H 107 H Respiratory Rate 30 H 17 Blood Pressure 113/68 Pulse Oximetry 96 02/01/18 02:00 02/01/18 04:00 02/01/18 04:16 Temperature 98.8 F Pulse Rate 100 H 97 H 99 H Respiratory Rate 16 16 Blood Pressure 124/71 Pulse Oximetry 96 02/01/18 06:00 02/01/18 07:00 02/01/18 07:29 Temperature Pulse Rate 97 H 103 H Respiratory Rate 8 L Blood Pressure 120/73 Pulse Oximetry 96 95 02/01/18 08:00 02/01/18 09:00 02/01/18 10:00 Temperature 97.5 F L Pulse Rate 99 H 99 H 101 H Respiratory Rate 25 H 12 15 Blood Pressure 135/71 128/81 130/74 Pulse Oximetry 91 L 92 L 94 L 02/01/18 11:00 02/01/18 12:00 02/01/18 13:01 Temperature Pulse Rate 101 H 106 H 100 H Respiratory Rate 15 21 23 Blood Pressure 98/64 L 106/64 105/68 Pulse Oximetry 93 L 84 L 92 L 02/01/18 13:58 02/01/18 14:00 02/01/18 16:00 Temperature Pulse Rate 77 104 H 105 H Respiratory Rate 18 Blood Pressure Pulse Oximetry Intake & Output 01/31/18 02/01/18 02/01/18 18:59 06:59 18:59 Intake Total 600 / 600 300 / 300 50 / 50 Output Total 48930 / 90490 41 / 41 Balance -17250 / -04272 259 / 259 50 / 50 Weight 94.5 kg Intake: IV 100 / 100 50 / 50 Zosyn 2.25 GM Premix 50 ML @ 100 / 100 50 / 50 100 mls/hr IV.SIG Q12H [facility] Rx#: [id number] Oral 600 / 600 200 / 200 Output: Urine 0 / 0 0 / 0 Stool 0 / 0 1 / 1 Urine/Stool Mix 40 / 40 Hemodialysis Amount [id number] / [id number] Other: # Voids 1 # Incontinent Voids 0 Date of Last Bowel Movement 01/31/18 01/31/18 01/31/18 # Bowel Movements 1 1 # Incontinent Bowel Movements 1 1 Narrative: GENERAL: In mild resp. acute distress. HEENT: NC, AT. CARDIOVASCULAR: Irregularly irregular rhythm. RESPIRATORY: No accessory muscle use. Crackles at the bases. GASTROINTESTINAL: Abdomen soft, non-tender, nondistended. Hepatic and splenic margins not palpable. Decreased bowel sounds. MUSCULOSKELETAL: Extremities without clubbing, cyanosis, mild edema. No obvious deformities. Cath site without hematoma. NEUROLOGICAL: Awake and alert. No obvious cranial nerve deficits. Assessment and Plan - Assessment (1) ESRD (end stage renal disease) on dialysis Code(s): N18.6 - End stage renal disease; Z99.2 - Dependence on renal dialysis Status: Acute Plan: Continue HD MWF. Monitor electrolytes intermittently. Avoid IVF administration. Protect left arm from procedures, has new AV access that is not mature. PermCath in place for HD use. Phosphorus level acceptable without binder therapy. High protein low K diet ordered. Also on Supplements. Needs nutritional support. HD done yesterday, tolerated well. BP is stable. HD again in AM. For AV-Mello ablation tomorrow for refractory A. fib. Dr. Salvador will follow from AM. (2) Atrial fibrillation with RVR Code(s): I48.91 - Unspecified atrial fibrillation Status: Acute Plan: Rate is variable. REcently has been controlled. On PO Amiodarone. Hypotensive with change from Metoprolol to Carvedilol, it was changed back. Midodrine is ordered TID for hypotension. Continue with rate control measures. Cardiology following. KAYLYNN cardioversion and AV ablation with pacemaker are other options. Appreciate cardiology recommendations on how to proceed and to choose the best course of action. (3) Hypoxia Code(s): R09.02 - Hypoxemia Status: Acute Plan: He is on high flow oxygen. Ween if able. CT with contrast ordered. Fluid removal as tolerated with HD. (4) CHF (congestive heart failure) Code(s): I50.9 - Heart failure, unspecified Status: Acute Qualifiers: Heart failure type: unspecified Heart failure chronicity: unspecified Qualified Code(s): I50.9 - Heart failure, unspecified Plan: Stable. EF noted to be around 60%. Fluid removal with dialysis. (5) Anemia in CKD (chronic kidney disease) Code(s): N18.9 - Chronic kidney disease, unspecified; D63.1 - Anemia in chronic kidney disease Status: Acute Plan: On Epogen with dialysis. Hemoglobin is acceptable.
[2018-02-02] MEDS: MethylPREDNISolone Sod Succinate Inj 125 MG/2 ML Vial IV.PUSH SCH ×3 (00:21→23:19)
[2018-02-02] MEDS: Temazepam 15 MG Capsule PO PRN ×2 (00:23→21:21)
[2018-02-02] MEDS: Metoprolol Tartrate 25 MG Tablet PO SCH ×3 (02:46→15:05)
[2018-02-02 04:25] LABS: Hematocrit 32.4 % (39.0-51.0); Hemoglobin 10.4 gm/dL (13.0-17.0); Lymph # (Auto) 0.2 th/mm3 (1.0-4.8); Mean Corpuscular Hemoglobin 27.6 pg (27.0-34.0); Mean Platelet Volume 9.2 fL (7.0-11.0); Mono # (Auto) 0.4 th/mm3 (0.0-0.9); Mono % (Auto) 3.7 % (0.0-8.0); Neut # (Auto) 10.7 th/mm3 (1.8-7.7); Neut % (Auto) 94.3 % (16.0-70.0); Platelet Count 197 th/mm3 (150-450); Red Blood Count 3.77 mil/mm3 (4.50-5.90); Red Cell Distribution Width 17.5 % (11.6-17.2); White Blood Count 11.4 th/mm3 (4.0-11.0)
[2018-02-02 04:27] LABS: INR 3.2 Ratio; Prothrombin Time 32.1 sec (9.8-11.6)
[2018-02-02] MEDS: Amiodarone 200 MG Tablet PO SCH (09:03)
[2018-02-02] MEDS: Senna/Docusate Sodium 8.6/50 MG Tablet PO SCH ×2 (09:03→21:09)
[2018-02-02] MEDS: Budesonide-Formoterol 160/4.5 MCG 6 GM Inhaler INH SCH ×2 (09:04→21:09)
[2018-02-02] MEDS: Insulin NovoLIN Regular Correctional Sugar Inj SQ SCH ×4 (09:15→21:10)
[2018-02-02] MEDS: Heparin 10,000 UNITS/10 ML Vial (for IV use) OTHER PRN (09:34)
--- NOTE | 2018-02-02 10:52 | P.PNPAL ---
Reason for Visit Reason for visit: a. To assist with evaluation and management of symptoms including: Dyspnea, weakness b. To assist medical decision maker(s) with: better understanding of current medical conditions; weighing benefits/burdens of medical treatment options; making medical treatment decisions. Subjective Subjective/Interval History: Patient seen today for follow-up on symptom management of dyspnea, weakness. Patient says he is "breathing OK" on the high flow O2. He is saturating 91%. Nephrology has pulled 4 or 5 L off of him each of the last couple days. He is having dialysis again now and seems to be tolerating it He is becoming progressively weaker as time passes, compounded by extensive bedbound status, prolonged ICU stay and respiratory insufficiency. He is unable to effectively engage with physical therapy due to dyspnea which severely limits his therapy sessions. . Family/Friend Interactions: d/w daughter Ms. Greer by telephone: she understands that he has serious heart , lung, renal, and debility problems, and that set-backs and failures are likely in the upcoming days and weeks. She understands and accepts the role of decision-maker when he ends up on the vent. Objective Vital Signs: Vital Signs 02/01/18 11:00 02/01/18 12:00 02/01/18 13:01 Temperature Pulse Rate 101 H 106 H 100 H Respiratory Rate 15 21 23 Blood Pressure 98/64 L 106/64 105/68 Pulse Oximetry 93 L 84 L 92 L 02/01/18 13:58 02/01/18 14:00 02/01/18 14:18 Temperature Pulse Rate 77 104 H 105 H Respiratory Rate 18 19 12 Blood Pressure 88/52 L 109/56 L Pulse Oximetry 92 L 92 L 02/01/18 15:00 02/01/18 16:00 02/01/18 17:00 Temperature 97.5 F L Pulse Rate 105 H 108 H 100 H Respiratory Rate 13 30 H 14 Blood Pressure 117/66 113/58 L 105/60 Pulse Oximetry 96 85 L 95 02/01/18 18:00 02/01/18 20:00 02/01/18 20:37 Temperature 98.7 F Pulse Rate 105 H 104 H 103 H Respiratory Rate 24 19 16 Blood Pressure 114/70 119/69 Pulse Oximetry 91 L 91 L 92 L 02/01/18 22:00 02/01/18 23:26 02/02/18 00:00 Temperature 98.3 F Pulse Rate 104 H 105 H 106 H Respiratory Rate 20 24 Blood Pressure 145/81 H Pulse Oximetry 90 L 02/02/18 00:19 02/02/18 02:00 02/02/18 04:00 Temperature 97.9 F Pulse Rate 104 H 100 H Respiratory Rate 21 13 Blood Pressure 142/70 H Pulse Oximetry 97 02/02/18 04:14 02/02/18 06:00 02/02/18 08:04 Temperature Pulse Rate 102 H 98 H 96 H Respiratory Rate 16 19 Blood Pressure Pulse Oximetry 92 L Intake & Output 02/01/18 02/02/18 02/02/18 18:59 06:59 18:59 Intake Total 350 / 350 50 / 50 Output Total Balance 350 / 350 49 / 49 Weight 95.5 kg Intake: IV 50 / 50 50 / 50 Zosyn 2.25 GM Premix 50 ML @ 50 / 50 50 / 50 100 mls/hr IV.SIG Q12H [facility] Rx#: [id number] Oral 300 / 300 0 / 0 Output: Urine 0 / 0 Stool 1 / Other: # Voids 0 Date of Last Bowel Movement 02/01/18 02/01/18 # Bowel Movements 1 Physical Exam: CONSTITUTIONAL/GENERAL: This is an adequately nourished patient, appears weak, in no apparent distress. TUBES/LINES/DRAINS: Right subclavian Vas-Cath, right hand PIV NECK: Trachea midline. Supple, nontender. No palpable thyroid enlargement or nodularity. CARDIOVASCULAR: S1, S2, irregular rhythm, controlled rate, no rub murmur or gallop. RESPIRATORY/CHEST: Diminished breath sounds with bibasilar crackles, some accessory muscle use noted today, No rhonchi or wheezes. GASTROINTESTINAL: Abdomen soft, non-tender, nondistended. No hepato-splenomegaly , or palpable masses. No guarding. Bowel sounds present. GENITOURINARY: Without palpable bladder distension. Linton catheter in place. MUSCULOSKELETAL: Extremities without clubbing, cyanosis, or edema. No joint tenderness or effusion noted. No calf tenderness. No mottling or clubbing. NEUROLOGICAL: Appears tired, fatigued, oriented 4. Motor and sensory grossly within normal limits. Follows commands. Moves all extremities. PSYCHIATRIC: Appears less anxious than previous assessment. . Diagnostic Tests Laboratory: Laboratory Results - last 72 hr 01/30/18 01/30/18 01/31/18 13:17 16:53 08:21 WBC RBC Hgb Hct MCV MCH MCHC RDW Plt Count MPV Neut % (Auto) Lymph % (Auto) Kaufman % (Auto) Eos % (Auto) Baso % (Auto) Neut # (Auto) Lymph # (Auto) Kaufman # (Auto) Eos # (Auto) Baso # (Auto) WBC Differential Differential Comment PT INR Sodium Potassium Chloride Carbon Dioxide Anion Gap BUN Creatinine Estimated GFR POC Glucose 155 H 280 H 317 H Random Glucose Calcium Total Bilirubin AST ALT Alkaline Phosphatase Total Protein Albumin Blood Type Blood Type Recheck Antibody Screen 01/31/18 01/31/18 01/31/18 11:42 12:49 16:58 WBC RBC Hgb Hct MCV MCH MCHC RDW Plt Count MPV Neut % (Auto) Lymph % (Auto) Kaufman % (Auto) Eos % (Auto) Baso % (Auto) Neut # (Auto) Lymph # (Auto) Kaufman # (Auto) Eos # (Auto) Baso # (Auto) WBC Differential Differential Comment PT 33.4 H D INR 3.3 Sodium Potassium Chloride Carbon Dioxide Anion Gap BUN Creatinine Estimated GFR POC Glucose 173 H 320 H Random Glucose Calcium Total Bilirubin AST ALT Alkaline Phosphatase Total Protein Albumin Blood Type Blood Type Recheck Antibody Screen 01/31/18 02/01/18 02/01/18 21:14 04:40 04:40 WBC 10.2 RBC 3.89 L Hgb 10.8 L Hct 34.0 L MCV 87.5 MCH 27.7 MCHC 31.7 L RDW 17.8 H Plt Count 194 MPV 9.1 Neut % (Auto) 94.3 H Lymph % (Auto) 2.5 L Kaufman % (Auto) 3.2 Eos % (Auto) 0.0 Baso % (Auto) 0.0 Neut # (Auto) 9.6 H Lymph # (Auto) 0.3 L Kaufman # (Auto) 0.3 Eos # (Auto) 0.0 Baso # (Auto) 0.0 WBC Differential . Differential Comment Auto diff final PT 34.0 H INR 3.4 Sodium Potassium Chloride Carbon Dioxide Anion Gap BUN Creatinine Estimated GFR POC Glucose 339 H Random Glucose Calcium Total Bilirubin AST ALT Alkaline Phosphatase Total Protein Albumin Blood Type Blood Type Recheck Antibody Screen 0802/01/18 02/01/18 04:40 08:01 11:29 WBC RBC Hgb Hct MCV MCH MCHC RDW Plt Count MPV Neut % (Auto) Lymph % (Auto) Kaufman % (Auto) Eos % (Auto) Baso % (Auto) Neut # (Auto) Lymph # (Auto) Kaufman # (Auto) Eos # (Auto) Baso # (Auto) WBC Differential Differential Comment PT INR Sodium 136 Potassium 4.6 Chloride 97 L Carbon Dioxide 26.8 Anion Gap 12 BUN 46 H Creatinine 6.17 H Estimated GFR 9 L POC Glucose 284 H 319 H Random Glucose 211 H Calcium 9.4 Total Bilirubin 0.9 AST 15 ALT 25 Alkaline Phosphatase 133 H Total Protein 7.8 Albumin 3.1 L Blood Type Blood Type Recheck Antibody Screen 02/01/18 02/01/18 02/02/18 17:22 21:29 03:39 WBC RBC Hgb Hct MCV MCH MCHC RDW Plt Count MPV Neut % (Auto) Lymph % (Auto) Kaufman % (Auto) Eos % (Auto) Baso % (Auto) Neut # (Auto) Lymph # (Auto) Kaufman # (Auto) Eos # (Auto) Baso # (Auto) WBC Differential Differential Comment PT 32.1 H INR 3.2 Sodium Potassium Chloride Carbon Dioxide Anion Gap BUN Creatinine Estimated GFR POC Glucose 324 H 436 H Random Glucose Calcium Total Bilirubin AST ALT Alkaline Phosphatase Total Protein Albumin Blood Type Blood Type Recheck Antibody Screen 02/02/18 02/02/18 02/02/18 03:39 03:39 09:05 WBC 11.4 H RBC 3.77 L Hgb 10.4 L Hct 32.4 L MCV 86.0 MCH 27.6 MCHC 32.0 RDW 17.5 H Plt Count 197 MPV 9.2 Neut % (Auto) 94.3 H Lymph % (Auto) 2.0 L Kaufman % (Auto) 3.7 Eos % (Auto) 0.0 Baso % (Auto) 0.0 Neut # (Auto) 10.7 H Lymph # (Auto) 0.2 L Kaufman # (Auto) 0.4 Eos # (Auto) 0.0 Baso # (Auto) 0.0 WBC Differential . Differential Comment Auto diff final PT INR Sodium Potassium Chloride Carbon Dioxide Anion Gap BUN Creatinine Estimated GFR POC Glucose 334 H Random Glucose Calcium Total Bilirubin AST ALT Alkaline Phosphatase Total Protein Albumin Blood Type A Positive Blood Type Recheck Not needed Antibody Screen Negative Result Diagrams: 02/02/18 03:39 02/01/18 04:40 Imaging: Abdomen X-Ray 01/23/18 23:05 CONCLUSION: 1. Nonobstructive bowel gas pattern. Chest X-Ray 01/29/18 09:48 CONCLUSION: 1. Stable cardiomegaly and mild positive fluid balance. 2. No significant interval change. Chest CTA 01/30/18 00:00 CONCLUSION: 1. No evidence of pulmonary embolus. 2. Severe bilateral pulmonary parenchymal opacity with predominance at the dependent portions of the lungs. Difficult diagnosis includes pulmonary edema and infection. 3. Elongated lobulated nodular density in the right midlung following the major fissure likely represents loculated pleural effusion. 4. Enlarged pulmonary arteries suggesting pulmonary arterial hypertension. 5. Enlarged heart and small pericardial effusion. 6. Small left than right pleural effusions. 7. Mildly enlarged mediastinal lymph nodes, likely reactive. 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 Spiritual:[employer] available. Legal:His daughter, Dinorah Greer, is his healthcare decision maker. Ethical issues impacting care: None noted. Important Contacts: Daughter: Dinorah Greer . Prognosis: His prognosis is guarded. He is short of breath at rest, remains in atrial fib , rate reasonably well controlled. He continues to complain of chest pain and given his recent left heart catheterization showing mild to moderate coronary disease, this is unlikely to be caused by anginal pain. He has end-stage renal disease, diabetes, hypertension and is at risk for further complications and decline. . Code Status: Full Code Plan: PLAN: He is looking forward to pacemaker placement today. Legal decision maker: The patient is capacitated to make his own decisions however requests assisted decision making with his daughter, Dinorah Greer. He has verbalized that he wants Ms. Greer to be his healthcare surrogate. Goals: Aggressive. Patient states he does not want to sign a DNR and would accept mechanical ventilation if required. CODE STATUS: FULL CODE SYMPTOMS: * Weakness: Progressively worsening, secondary to extended ICU status, bedbound status, severe respiratory insufficiency, increased work of breathing. Unable to effectively participate in PT due to dyspnea and weakness. * Dyspnea: Multifactorial to include past history of smoking, prior asbestos exposure, prior exposure to concrete dust, atrial fibrillation, as well as agent orange exposure in [place]. He is requiring high flow nasal cannula. His respiratory status would be expected to continue to decline in the upcoming days/weeks, and he is at risk of requiring intubation. Palliative care will continue to follow the patient during hospital course as condition evolves, to assist patient/decision-maker with understanding of their medical conditions, weighing benefits/burdens of treatment options, for clarification of goals of treatment. Additionally will assist with any symptoms of palliative concern. . Time Spent Total Floor Time (mins): 41 Face to Face Time (mins): 23 >50% Time in Counseling or Coordination of Care: Yes (d/w RN and w PC [employer])
--- NOTE | 2018-02-02 11:41 | P.PNNP ---
Subjective Interval history: NPO for AV gilbert ablation today. Seen during dialysis. Not in distress, still on high flow oxygen. <Jyoti Ceron - Last Filed: 02/02/18 12:02> Physical Exam Vital signs: Vital Signs 02/01/18 12:00 02/01/18 13:01 02/01/18 13:58 Temperature Pulse Rate 106 H 100 H 77 Respiratory Rate 21 23 18 Blood Pressure 106/64 105/68 Pulse Oximetry 84 L 92 L 02/01/18 14:00 02/01/18 14:18 02/01/18 15:00 Temperature Pulse Rate 104 H 105 H 105 H Respiratory Rate 19 12 13 Blood Pressure 88/52 L 109/56 L 117/66 Pulse Oximetry 92 L 92 L 96 02/01/18 16:00 02/01/18 17:00 02/01/18 18:00 Temperature 97.5 F L Pulse Rate 108 H 100 H 105 H Respiratory Rate 30 H 14 24 Blood Pressure 113/58 L 105/60 114/70 Pulse Oximetry 85 L 95 91 L 02/01/18 19:00 02/01/18 20:00 02/01/18 20:37 Temperature 98.7 F Pulse Rate 101 H 104 H 103 H Respiratory Rate 19 19 16 Blood Pressure 120/71 119/69 Pulse Oximetry 91 L 91 L 92 L 02/01/18 21:00 02/01/18 22:00 02/01/18 23:00 Temperature Pulse Rate 102 H 104 H 107 H Respiratory Rate 18 17 20 Blood Pressure 129/71 129/76 132/71 Pulse Oximetry 91 L 89 L 89 L 02/01/18 23:26 02/02/18 00:00 02/02/18 00:19 Temperature 98.3 F Pulse Rate 105 H 106 H Respiratory Rate 20 24 21 Blood Pressure 145/81 H Pulse Oximetry 90 L 02/02/18 01:00 02/02/18 02:00 02/02/18 02:48 Temperature Pulse Rate 106 H 104 H 101 H Respiratory Rate 29 H 18 17 Blood Pressure 129/91 H 140/100 H 133/83 Pulse Oximetry 94 L 95 96 02/02/18 03:01 02/02/18 04:00 02/02/18 04:14 Temperature 97.9 F Pulse Rate 103 H 100 H 102 H Respiratory Rate 13 13 16 Blood Pressure 147/64 H 142/70 H Pulse Oximetry 95 97 02/02/18 05:00 02/02/18 06:00 02/02/18 07:00 Temperature Pulse Rate 102 H 98 H 99 H Respiratory Rate 16 13 18 Blood Pressure 133/73 131/67 145/77 H Pulse Oximetry 96 97 89 L 02/02/18 08:00 02/02/18 08:04 02/02/18 08:49 Temperature Pulse Rate 96 H 96 H 97 H Respiratory Rate 19 19 23 Blood Pressure 130/73 125/78 Pulse Oximetry 92 L 92 L 86 L 02/02/18 09:00 02/02/18 09:15 02/02/18 09:30 Temperature Pulse Rate 102 H 100 H 101 H Respiratory Rate 20 15 27 H Blood Pressure 129/86 137/77 133/67 Pulse Oximetry 88 L 88 L 95 02/02/18 09:45 02/02/18 10:00 02/02/18 10:10 Temperature Pulse Rate 84 97 H 104 H Respiratory Rate 24 14 26 H Blood Pressure 122/63 107/78 Pulse Oximetry 90 L 87 L 86 L 02/02/18 10:16 02/02/18 10:30 02/02/18 10:45 Temperature Pulse Rate 100 H 85 101 H Respiratory Rate 18 17 16 Blood Pressure 138/64 111/59 L 124/56 L Pulse Oximetry 88 L 88 L 90 L 02/02/18 11:14 Temperature Pulse Rate Respiratory Rate 16 Blood Pressure Pulse Oximetry Intake & Output 02/01/18 02/02/18 02/02/18 18:59 06:59 18:59 Intake Total 350 / 350 50 / 50 Output Total 1 / 1 Balance 350 / 350 49 / 49 Weight 95.5 kg Intake: IV 50 / 50 50 / 50 Zosyn 2.25 GM Premix 50 ML @ 50 / 50 50 / 50 100 mls/hr IV.SIG Q12H [facility] Rx#: [id number] Oral 300 / 300 0 / 0 Output: Urine 0 / 0 Stool 1 / 1 Other: # Voids 0 Date of Last Bowel Movement 02/01/18 02/01/18 02/01/18 # Bowel Movements 1 - Constitutional no acute distress, chronically ill appearing - Routine HEENT Exam Head: Present: normocephalic - Routine Neck Exam Present: supple, full ROM - Routine Respiratory Exam Present: prolonged expiratory phase, rales. Absent: accessory muscle use - Routine Cardiovascular Exam Present: S1, S2, tachycardia, irregular rhythm, irregularly irregular. Absent: murmur - Routine Abdominal Exam Present: soft, normoactive bowel sounds - Routine Extremities Exam Present: pulses intact, normal capillary refill. Absent: edema - Routine Skin Exam Present: intact, warm - Routine Neurological Exam Present: alert, oriented X3, CN II-XII intact <Jyoti Ceron - Last Filed: 02/02/18 12:02> Vital signs: Vital Signs 02/01/18 15:00 02/01/18 16:00 02/01/18 17:00 Temperature 97.5 F L Pulse Rate 105 H 108 H 100 H Respiratory Rate 13 30 H 14 Blood Pressure 117/66 113/58 L 105/60 Pulse Oximetry 96 85 L 95 02/01/18 18:00 02/01/18 19:00 02/01/18 20:00 Temperature 98.7 F Pulse Rate 105 H 101 H 104 H Respiratory Rate 24 19 19 Blood Pressure 114/70 120/71 119/69 Pulse Oximetry 91 L 91 L 91 L 02/01/18 20:37 02/01/18 21:00 02/01/18 22:00 Temperature Pulse Rate 103 H 102 H 104 H Respiratory Rate 16 18 17 Blood Pressure 129/71 129/76 Pulse Oximetry 92 L 91 L 89 L 02/01/18 23:00 02/01/18 23:26 02/02/18 00:00 Temperature 98.3 F Pulse Rate 107 H 105 H 106 H Respiratory Rate 20 20 24 Blood Pressure 132/71 145/81 H Pulse Oximetry 89 L 90 L 02/02/18 00:19 02/02/18 01:00 02/02/18 02:00 Temperature Pulse Rate 106 H 104 H Respiratory Rate 21 29 H 18 Blood Pressure 129/91 H 140/100 H Pulse Oximetry 94 L 95 02/02/18 02:48 02/02/18 03:01 02/02/18 04:00 Temperature 97.9 F Pulse Rate 101 H 103 H 100 H Respiratory Rate 17 13 13 Blood Pressure 133/83 147/64 H 142/70 H Pulse Oximetry 96 95 97 02/02/18 04:14 02/02/18 05:00 02/02/18 06:00 Temperature Pulse Rate 102 H 102 H 98 H Respiratory Rate 16 16 13 Blood Pressure 133/73 131/67 Pulse Oximetry 96 97 02/02/18 07:00 02/02/18 08:00 02/02/18 08:04 Temperature Pulse Rate 99 H 96 H 96 H Respiratory Rate 18 19 19 Blood Pressure 145/77 H 130/73 Pulse Oximetry 89 L 92 L 92 L 02/02/18 08:49 02/02/18 09:00 02/02/18 09:15 Temperature Pulse Rate 97 H 102 H 100 H Respiratory Rate 23 20 15 Blood Pressure 125/78 129/86 137/77 Pulse Oximetry 86 L 88 L 88 L 02/02/18 09:30 02/02/18 09:45 02/02/18 10:00 Temperature Pulse Rate 101 H 84 97 H Respiratory Rate 27 H 24 14 Blood Pressure 133/67 122/63 Pulse Oximetry 95 90 L 87 L 02/02/18 10:10 02/02/18 10:16 02/02/18 10:30 Temperature Pulse Rate 104 H 100 H 85 Respiratory Rate 26 H 18 17 Blood Pressure 107/78 138/64 111/59 L Pulse Oximetry 86 L 88 L 88 L 02/02/18 10:45 02/02/18 11:14 02/02/18 12:00 Temperature Pulse Rate 101 H 89 Respiratory Rate 16 16 Blood Pressure 124/56 L Pulse Oximetry 90 L Intake & Output 02/01/18 02/02/18 02/02/18 18:59 06:59 18:59 Intake Total 350 / 350 50 / 50 Output Total 1 / 1 Balance 350 / 350 49 / 49 Weight 95.5 kg Intake: IV 50 / 50 50 / 50 Zosyn 2.25 GM Premix 50 ML @ 50 / 50 50 / 50 100 mls/hr IV.SIG Q12H [facility] Rx#: [id number] Oral 300 / 300 0 / 0 Output: Urine 0 / 0 Stool 1 / 1 Other: # Voids 0 Date of Last Bowel Movement 02/01/18 02/01/18 02/01/18 # Bowel Movements 1 <Eduardo Salvador - Last Filed: 02/02/18 14:38> Assessment and Plan - Assessment (1) ESRD (end stage renal disease) on dialysis Code(s): N18.6 - End stage renal disease; Z99.2 - Dependence on renal dialysis Status: Acute Plan: Seen during dialysis today on a 2K, 350 BFR, goal 4.5L Continue HD MWF. Monitor electrolytes intermittently. Avoid IVF administration. Protect left arm from procedures, has new AV access that is not mature. PermCath in place for HD use. Phosphorus level has been acceptable without binder therapy. High protein low K diet with Supplements when he is no longer NPO. Needs nutritional support. (2) Atrial fibrillation with RVR Code(s): I48.91 - Unspecified atrial fibrillation Status: Acute Plan: Tachycardia persists. Intolerant to Carvedilol. On PO Amiodarone. Midodrine is ordered TID for hypotension. Cardiology following. KAYLYNN AV ablation with pacemaker placement planned for today. (3) Hypoxia Code(s): R09.02 - Hypoxemia Status: Acute Plan: He is on high flow oxygen. Ween if able. Fluid removal as tolerated with HD. Pulmonary following. (4) CHF (congestive heart failure) Code(s): I50.9 - Heart failure, unspecified Status: Acute Qualifiers: Heart failure type: unspecified Heart failure chronicity: unspecified Qualified Code(s): I50.9 - Heart failure, unspecified Plan: Stable. EF noted to be around 60%. Fluid removal with dialysis. (5) Anemia in CKD (chronic kidney disease) Code(s): N18.9 - Chronic kidney disease, unspecified; D63.1 - Anemia in chronic kidney disease Status: Acute Plan: On Epogen with dialysis. Hemoglobin is acceptable. <Jyoti Ceron - Last Filed: 02/02/18 12:02> - Assessment (1) ESRD (end stage renal disease) on dialysis Code(s): N18.6 - End stage renal disease; Z99.2 - Dependence on renal dialysis Status: Acute (2) Atrial fibrillation with RVR Code(s): I48.91 - Unspecified atrial fibrillation Status: Acute (3) Hypoxia Code(s): R09.02 - Hypoxemia Status: Acute (4) CHF (congestive heart failure) Code(s): I50.9 - Heart failure, unspecified Status: Acute Qualifiers: Heart failure type: unspecified Heart failure chronicity: unspecified Qualified Code(s): I50.9 - Heart failure, unspecified (5) Anemia in CKD (chronic kidney disease) Code(s): N18.9 - Chronic kidney disease, unspecified; D63.1 - Anemia in chronic kidney disease Status: Acute - Attending Attestation patient was seen and examined. Agree with above assessment and plan. Seen during dialysis. <Eduardo Salvador - Last Filed: 02/02/18 14:38>
[2018-02-02] MEDS: Piperacil/Tazo 2.25 GM Premix 50 ML IV.SIG SCH ×2 (12:00→23:19)
--- NOTE | 2018-02-02 12:34 | P.PNCC ---
Subjective Subjective Remarks/Hospital Course: This is a 72yM with history of ESRD on HD who was recently admitted last month for supraventricular tachycardia. It appears from the records that normal sinus rhythm was restored prior to discharge home. He re-presented to the hospital with atrial fibrillation with rapid ventricular response which has been poorly responsive to esmolol infusion. It is noted that there is still a shortage of diltiazem infusions, so none is available to place the patient on. Dr. Waters with cardiology was consulted, as was Dr. Weinberg. The patient has also had hypotension during this hospital stay with most blood pressure readings between 80-100 systolic. This morning, Bystolic was started and was given together with amiodarone 400mg and metoprolol 25mg po. Approximately 2 hours after this, his blood pressure dropped into the 60s and 70s systolic. I was consulted by Dr. Wilcox to evaluate and manage his hemodynamics in the setting of poorly-controlled atrial fibrillation and hypotension. The patient does complain of light-headedness and a little chest discomfort which is new since his blood pressure has dropped into the 70s. He denies any other complaints and tolerated breakfast this AM. ROS otherwise negative. troponins have been serially negative this admission. I performed bedside critical care echocardiography and compared this to images obtained from last hospital admission on 11/2017. Given the poorly controlled nature of the patient's rate, wall motion and accurate ejection fraction are difficult to assess with accuracy. It does appear that the patient has relatively preserved EF and at most only mildly depressed LVEF. Aortic valve is sclerotic but appears unchanged from prior echo which calculated the valve area at ~2cm. no pericardial effusion. IVC is dilated around 2cm without respiratory variation. heart rate on my evaluation is 121. 8/2: Critical care reconsulted by Dr. Weinberg for worsening respiratory failure. Patient dropped O2 sats to 84% on 6 L nasal cannula. When I evaluated patient he was resting in bed. Placed him on high flow nasal cannula 30 L/min 60% FiO2 with which his O2 sats came up to 90%. 01/30: Remains on high flow nasal cannula. CT chest negative for PE shows consolidation bilateral lower lobes and a loculated effusion on the right. Defer to pulmonary regarding further recommendations. 01/31: Remains on high flow nasal cannula. Being dialyzed currently. On 30 L/ min 60% FiO2. O2 sats 96%. Feels that he is breathing a little better. 02/01: On high flow nasal cannula at 20 L/min 50% FiO2. Shortness of breath gradually improving. Objective Vital Signs / I&O: Vital Signs 02/01/18 13:01 02/01/18 13:58 02/01/18 14:00 Temperature Pulse Rate 100 H 77 104 H Respiratory Rate 23 18 19 Blood Pressure 105/68 88/52 L Pulse Oximetry 92 L 92 L 02/01/18 14:18 02/01/18 15:00 02/01/18 16:00 Temperature Pulse Rate 105 H 105 H 108 H Respiratory Rate 12 13 30 H Blood Pressure 109/56 L 117/66 113/58 L Pulse Oximetry 92 L 96 85 L 02/01/18 17:00 02/01/18 18:00 02/01/18 19:00 Temperature 97.5 F L Pulse Rate 100 H 105 H 101 H Respiratory Rate 14 24 19 Blood Pressure 105/60 114/70 120/71 Pulse Oximetry 95 91 L 91 L 02/01/18 20:00 02/01/18 20:37 02/01/18 21:00 Temperature 98.7 F Pulse Rate 104 H 103 H 102 H Respiratory Rate 19 16 18 Blood Pressure 119/69 129/71 Pulse Oximetry 91 L 92 L 91 L 02/01/18 22:00 02/01/18 23:00 02/01/18 23:26 Temperature Pulse Rate 104 H 107 H 105 H Respiratory Rate 17 20 20 Blood Pressure 129/76 132/71 Pulse Oximetry 89 L 89 L 02/02/18 00:00 02/02/18 00:19 02/02/18 01:00 Temperature 98.3 F Pulse Rate 106 H 106 H Respiratory Rate 24 21 29 H Blood Pressure 145/81 H 129/91 H Pulse Oximetry 90 L 94 L 02/02/18 02:00 02/02/18 02:48 02/02/18 03:01 Temperature Pulse Rate 104 H 101 H 103 H Respiratory Rate 18 17 13 Blood Pressure 140/100 H 133/83 147/64 H Pulse Oximetry 95 96 95 02/02/18 04:00 02/02/18 04:14 02/02/18 05:00 Temperature 97.9 F Pulse Rate 100 H 102 H 102 H Respiratory Rate 13 16 16 Blood Pressure 142/70 H 133/73 Pulse Oximetry 97 96 02/02/18 06:00 02/02/18 07:00 02/02/18 08:00 Temperature Pulse Rate 98 H 99 H 96 H Respiratory Rate 13 18 19 Blood Pressure 131/67 145/77 H 130/73 Pulse Oximetry 97 89 L 92 L 02/02/18 08:04 02/02/18 08:49 02/02/18 09:00 Temperature Pulse Rate 96 H 97 H 102 H Respiratory Rate 19 23 20 Blood Pressure 125/78 129/86 Pulse Oximetry 92 L 86 L 88 L 02/02/18 09:15 02/02/18 09:30 02/02/18 09:45 Temperature Pulse Rate 100 H 101 H 84 Respiratory Rate 15 27 H 24 Blood Pressure 137/77 133/67 122/63 Pulse Oximetry 88 L 95 90 L 02/02/18 10:00 02/02/18 10:10 02/02/18 10:16 Temperature Pulse Rate 97 H 104 H 100 H Respiratory Rate 14 26 H 18 Blood Pressure 107/78 138/64 Pulse Oximetry 87 L 86 L 88 L 02/02/18 10:30 02/02/18 10:45 02/02/18 11:14 Temperature Pulse Rate 85 101 H Respiratory Rate 17 16 16 Blood Pressure 111/59 L 124/56 L Pulse Oximetry 88 L 90 L Intake & Output 02/01/18 02/02/18 02/02/18 18:59 06:59 18:59 Intake Total 350 / 350 50 / 50 Output Total 1 / 1 Balance 350 / 350 49 / 49 Weight 95.5 kg Intake: IV 50 / 50 50 / 50 Zosyn 2.25 GM Premix 50 ML @ 50 / 50 50 / 50 100 mls/hr IV.SIG Q12H [facility] Rx#: [id number] Oral 300 / 300 0 / 0 Output: Urine 0 / 0 Stool 1 / 1 Other: # Voids 0 Date of Last Bowel Movement 02/01/18 02/01/18 02/01/18 # Bowel Movements 1 Result Diagrams: 02/02/18 03:39 02/01/18 04:40 Objective Remarks: HEENT/Neuro: No pallor or icterus, tongue moist, CHAVA, Awake alert oriented 3 , nonfocal grossly, moving all 4 extremities Neck: No JVD Chest/pulmonary: Good air entry bilaterally, scattered rhonchi bilaterally, no wheezing or crackles. Cardiovascular: S1-S2 irregularly irregular no gallop or murmur GI/abdomen: Soft, nontender, bowel sounds present Extremities: Warm bilaterally, no edema Assessment and Plan - Assessment and Plan Plan: Assessment: 72yM with ESRD and poorly controlled atrial fibrillation and now persistent hypotension. In terms of his hypotension, I think the combination of AV gilbert blocking agents has caused significant hypotension in the setting of impaired cardiac output due to rate control. At this time we will hold his Bystolic since it was the newest medication added. I will add a single loading dose of digoxin 0.5mg iv x 1 to help assist in rate control while providing adequate contractility which may be impaired by the significant beta blockade we are providing. Certainly digoxin is not an ideal option for him to be on as a long-term agent given it's renal clearance. 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 I think he has been hypotensive enough during this hospital admission that if we are unable to regain control of his rate, he would be an excellent candidate for KAYLYNN /Cardioversion, but at present he has not been anticoagulated, so I would not pursue this emergently unless his hypotension was refractory or worsening and causing significant additional end-organ dysfunction. Certainly he is critically ill today with persistent hypotension. Active Problems: Acute respiratory failure CAD CHF Possible COPD Atrial Fibrillation with rapid ventricular response end-stage renal disease requiring hemodialysis Persistent hypotension secondary to poor cardiac output Neuro: Follow neuro status. Pain medications as needed. Cardiovascular: Status post cardiac cath. Being followed by Dr. Weinberg was considering AV gilbert ablation with pacemaker placement for refractory A. fib. Amiodarone dose decreased. Continue metoprolol, Midrin, Coumadin for anticoagulation. Fluid removal with hemodialysis. 2D echo with normal LV function however no comment on RVSP Pulmonary: Placed on high flow O2 at 30 L/min, 60% FiO2. CT chest with no evidence of PE however did show emphysematous changes bilateral lower lobe consolidation changes as well as fluid in interlobar fissure on the right. Pulmonary arteries are enlarged with probable pulmonary hypertension. Will resume IV Solu-Medrol. Continue inhaled steroids, bronchodilators per pulmonary. Patient probably has significant pulmonary hypertension-deferred to pulmonary. GI/liver: P.o. diet as tolerated Renal/: On hemodialysis per renal. ID: On Zosyn for empiric antibiotic coverage. Endocrine: Watch for hyperglycemia, SSI for glycemic control if needed Prophylaxis: Pepcid/SCDs. Anticoagulation with Coumadin. May require endotracheal intubation if respiratory status worsens. Time spent on critical care excluding procedures 30 minutes
[2018-02-02 14:11] LABS: ABG Base Excess 4.7 mmol/L (-2-2); ABG PCO2 45 mmHg (38-42); ABG PO2 146 mmHG (61-120)
--- NOTE | 2018-02-02 14:45 | P.PNCA ---
Subjective Interval history: alert in nad Physical Exam Vital signs: Vital Signs 02/01/18 15:00 02/01/18 16:00 02/01/18 17:00 Temperature 97.5 F L Pulse Rate 105 H 108 H 100 H Respiratory Rate 13 30 H 14 Blood Pressure 117/66 113/58 L 105/60 Pulse Oximetry 96 85 L 95 02/01/18 18:00 02/01/18 19:00 02/01/18 20:00 Temperature 98.7 F Pulse Rate 105 H 101 H 104 H Respiratory Rate 24 19 19 Blood Pressure 114/70 120/71 119/69 Pulse Oximetry 91 L 91 L 91 L 02/01/18 20:37 02/01/18 21:00 02/01/18 22:00 Temperature Pulse Rate 103 H 102 H 104 H Respiratory Rate 16 18 17 Blood Pressure 129/71 129/76 Pulse Oximetry 92 L 91 L 89 L 02/01/18 23:00 02/01/18 23:26 02/02/18 00:00 Temperature 98.3 F Pulse Rate 107 H 105 H 106 H Respiratory Rate 20 20 24 Blood Pressure 132/71 145/81 H Pulse Oximetry 89 L 90 L 02/02/18 00:19 02/02/18 01:00 02/02/18 02:00 Temperature Pulse Rate 106 H 104 H Respiratory Rate 21 29 H 18 Blood Pressure 129/91 H 140/100 H Pulse Oximetry 94 L 95 02/02/18 02:48 02/02/18 03:01 02/02/18 04:00 Temperature 97.9 F Pulse Rate 101 H 103 H 100 H Respiratory Rate 17 13 13 Blood Pressure 133/83 147/64 H 142/70 H Pulse Oximetry 96 95 97 02/02/18 04:14 02/02/18 05:00 02/02/18 06:00 Temperature Pulse Rate 102 H 102 H 98 H Respiratory Rate 16 16 13 Blood Pressure 133/73 131/67 Pulse Oximetry 96 97 02/02/18 07:00 02/02/18 08:00 02/02/18 08:04 Temperature Pulse Rate 99 H 96 H 96 H Respiratory Rate 18 19 19 Blood Pressure 145/77 H 130/73 Pulse Oximetry 89 L 92 L 92 L 02/02/18 08:49 02/02/18 09:00 02/02/18 09:15 Temperature Pulse Rate 97 H 102 H 100 H Respiratory Rate 23 20 15 Blood Pressure 125/78 129/86 137/77 Pulse Oximetry 86 L 88 L 88 L 02/02/18 09:30 02/02/18 09:45 02/02/18 10:00 Temperature Pulse Rate 101 H 84 97 H Respiratory Rate 27 H 24 14 Blood Pressure 133/67 122/63 Pulse Oximetry 95 90 L 87 L 02/02/18 10:10 02/02/18 10:16 02/02/18 10:30 Temperature Pulse Rate 104 H 100 H 85 Respiratory Rate 26 H 18 17 Blood Pressure 107/78 138/64 111/59 L Pulse Oximetry 86 L 88 L 88 L 02/02/18 10:45 02/02/18 11:14 02/02/18 12:00 Temperature Pulse Rate 101 H 89 Respiratory Rate 16 16 Blood Pressure 124/56 L Pulse Oximetry 90 L Intake & Output 02/01/18 02/02/18 02/02/18 18:59 06:59 18:59 Intake Total 350 / 350 50 / 50 Output Total 1 / 1 Balance 350 / 350 49 / 49 Weight 95.5 kg Intake: IV 50 / 50 50 / 50 Zosyn 2.25 GM Premix 50 ML @ 50 / 50 50 / 50 100 mls/hr IV.SIG Q12H [facility] Rx#: [id number] Oral 300 / 300 0 / 0 Output: Urine 0 / 0 Stool 1 / 1 Other: # Voids 0 Date of Last Bowel Movement 02/01/18 02/01/18 02/01/18 # Bowel Movements 1 Assessment and Plan - Assessment (1) Atrial fibrillation with rapid ventricular response Code(s): I48.91 - Unspecified atrial fibrillation Status: Acute (2) CHF (congestive heart failure) Code(s): I50.9 - Heart failure, unspecified Status: Acute (3) Chronic kidney disease with end stage renal failure on dialysis Code(s): N18.6 - End stage renal disease; Z99.2 - Dependence on renal dialysis Status: Acute (4) Atrial fibrillation with RVR Code(s): I48.91 - Unspecified atrial fibrillation Status: Acute (5) ESRD (end stage renal disease) on dialysis Code(s): N18.6 - End stage renal disease; Z99.2 - Dependence on renal dialysis Status: Acute - Plan 1.) Afib with rvr - Dr Weinberg started amio and coumadin, rates improved, but still >100, coumadin restarted, d/w Dr Weinberg, ablation and ppm today due failure of medical management for rate control, d/w patient 2.) CAD - continue, lipitor, hold coumadin, f/u inr in am (2) CHF (congestive heart failure) Qualifiers: Heart failure type: unspecified Heart failure chronicity: unspecified Qualified Code(s): I50.9 - Heart failure, unspecified
[2018-02-02] MEDS ORDERED: Heparin/NS PF Inj 500 ML ONE (17:03)
[2018-02-02] MEDS ORDERED: Lidocaine PF 1% Inj 30 ML Vial ONE (17:20)
[2018-02-02] MEDS ORDERED: Isoproterenol 200mcg/50mL Bag 200 MCG/50 ML BAG IV.CONT ONE (18:10)
--- NOTE | 2018-02-02 18:40 | CATHPROC ---
Patient Name: Angel Constantino Study #: [id number] Initial MD: Helga Weinberg Date of : 1945 Study Date: 02/02/2018 Cardiac Catheterization Report 02/02/2018 6:40:10 PM Financial #: [id number] 1 of 7 Patient Name: Angel Constantino Study #: [id number] Initial MD: Helga Weinberg Date of : 1945 Study Date: 02/02/2018 Entire Case Report Patient Information Patient Name Angel Constantino Date of 1945 Age 72 years Financial # [id number] Gender M AlternateID Lab Number 2 Room Number 514 Height (in) 75.0 Height (cm) 190.5 BSA 2.24 Weight (lbs) 210.1 Weight (kg) 95.5 Patient Address/Phone Number Home Address [facility] Home Phone Number [phone] [phone] Study Information Study Number Admission Scheduled Start Study Start [id number] Jan 15 2018 8:50PM 02/02/2018 Feb 02 2018 4:43PM [facility] Cardiac Catheterization Admit Source Facility Department Other [facility] Mill Control Operator Physician and Clinical Staff Initial Helga Corral Sagger Filler Mercy Hodge RCIS Other Anesthesia, OPERATOR WEAPON LOCATING RADAR Recorder Jyoti Jones,RN Scrub Madelyn Mcbride,RT(R) Procedures Performed Procedure Location (Site) Vessel Name RF Ablation AV NODE Wire insertion Fem Vein (right) Femoral Vein 02/02/2018 6:40:10 PM Financial #: [id number] 2 of 7 Patient Name: Angel Constantino Study #: [id number] Initial MD: Helga Weinberg Date of : 1945 Study Date: 02/02/2018 Equipment Time Lithographing Machine Operator Description Size Mfg Part Number Used/Scraped BIOSENSE SALDIVAR CATHETER, CELSIUS [id number] 17:54 FR 7 Used INC. THERMOCOOL F *[id number] BIOSENSE SALDIVAR [id number] 16:47 SET, TUBING COOLFLOW * Used INC. *[id number] 18:20 CARDIVA MEDICAL VASCADE, FR6 CLOSURE SYSTEM FR 6\\7 Used *[id number] SHEATH SET, FR12 CHECK-WESTLEY RCF-[id number]-J 17:54 COOK/PACER FR12 Used 13CM *[id number] Q76155 16:47 COOK/PACER DILATOR SET (MICRA) FR8-12 Used *[id number] WIRE, GUIDE AMPLATZ STIFF [id number] 16:47 COOK/PACER 3MMJ Used 180CM *[id number] 17:53 CORDIS/PACER SHEATH, FR10 YOVANNY 11CM FR 10 Used *[id number] [id number] 16:47 Snipd BLANKET,WARM AIR CCL * Used *[id number] 16:47 Snipd PACK, CCL CUSTOM * Used *[id number] 16:47 Libboo PACER LUQUE, LIMB * 2530 *[id number] Used [id number] 16:47 NAMIC TUBING, HIGH PRESSURE 20" 20" Used *[id number] 17:39 NAMIC TUBING, HIGH PRESSURE 20" 20" Used *[id number] 16:47 NYCOMED OMNIPAQUE, 300 MG, 50ML 50ML [id number] Used 18:37 NYCOMED OMNIPAQUE, 300 MG, 50ML 50ML [id number] Used SUTURE, 0 ETHIBOND [CT1] (CX21D), 8pk [id number] 17:47 [employer] CANDICE MEDICAL CATHETER, JSN, QUAD FR 5 Used *0394881 863110 17:29 [employer] C[employer] MED[employer] SHEATH, EPS, FR6 FAST CATH FR 6 Used *[id number] 642529 16:47 [employer] C[employer] MEDICAL SHEATH, EPS, FR8 FAST CATH FR 8 Used *5032142 663299 18:00 [employer] C[employer]ICE MEDICAL SHEATH, EPS, FR8 SRO 60CM FR 8 Used *7459601 SHEATH, FR8.5 STEERABLE SM 18:04 ST[employer] CANDICE MEDICAL 71CM 676834 Used 71CM 16:47 VITATRON MEDTRONIC MONITOR, PACEMAKER\\ICD 20914 *3765195 Used 18:29 VITATRON MEDTRONIC MONITOR, PACEMAKER\\ICD 62438 *9560166 Used SYSTEM, TRANS-CATHETER [id number] 16:47 VITATRON MEDTRONIC Used PACING (MICRA) *[id number] Insurance Information Insurance Payor [facility], Medicare Third Green Party Third Green Party Number NF SG [facility] 02/02/2018 6:40:10 PM Financial #: [id number] 3 of 7 Patient Name: Angel Constantino Study #: [id number] Initial MD: Helga Weinberg Date of : 1945 Study Date: 02/02/2018 History: Current Medications Medication Dosage/Unit Route Frequency Last Date/Time Taken ASA Statins (any) 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00 4.00-11.00 150.00-450.00 10.4 32.4 11.4 197 Glucose (mg/dl) BUN (mg/dl) Creatinine (mg/dl) BUN:Creatinine (1:x) 74.00-106.00 7.00-18.00 0.50-1.30 10.00-20.00 195 46 6.1 7.5 Na (meq/l) K (meq/l) 136.00-145.00 3.50-5.10 136 4.6 02/02/2018 6:40:10 PM Financial #: [id number] 4 of 7 Patient Name: Angel Constantino Study #: [id number] Initial MD: Helga Weinberg Date of : 1945 Study Date: 02/02/2018 INR (PTT:PT) 0.90-1.10 3.2 Medication Medication Total Dose (Bolus/Oral) Medication Total Dosage/Unit 1% XYLOCAINE 20 mL HEPARIN 3000 units Medications (Bolus/Oral) Medication Time Given Dosage/Unit Administered By Reason 1% XYLOCAINE 02/02/2018 5:27:06 PM 20 mL Helga Weinberg 20 mL 1% XYLOCAINE given in lab by Helga Weinberg in Right Groin via Subcutaneous. HEPARIN 02/02/2018 5:29:50 PM 3000 units HUNTER Clark 3000 units HEPARIN given in lab by HUNTER Clark via Peripheral IV. Ordered by Helga Weinberg. Medication (Drip) Medication Time Given Dosage/Unit Concentration/Unit Diluent (ml) Solution ISUPREL 02/02/2018 6:12:32 PM 5 mcg/min 1 mg 250 NaCl .9 5 mcg/min ISUPREL given in lab by HUNTER Clark via Peripheral IV. Pump/Drip Flow = 75 ml/hr using NaCl .9 with a concentration of 1 mg in 250 ml. Ordered by Helga Weinberg. VANCOMYCIN DRIP 02/02/2018 5:25:00 PM 1 g 1 g VANCOMYCIN DRIP given in lab by Helga Weinberg via Peripheral IV. Chronological Log Time Study Chronological Log 16:46:12 Patient arrived via Bed. 16:46:13 Patient Name, D.O.B, / Armband Verified By R.N. 16:46:15 Consent signed by the physician and the patient and verified by the Mill Control Operator staff. 17:25:00 1 g VANCOMYCIN DRIP given in lab by Helga Weinberg via Peripheral IV. Time Out. Correct patient, procedure, procedure equipment, site and side verified with physici an present. Time 17:26:55 concurred by MD, individual staff and OPERATOR WEAPON LOCATING RADAR. Time Out #2 - Consents verified, patient in correct position, all results are labled and displ ayed, safety precautions 17:26:57 taken, antibiotics administered. Time out concurred by MD, individual staff and OPERATOR WEAPON LOCATING RADAR in proced ure 17:26:58 Case Start 17:27:06 20 mL 1% XYLOCAINE given in lab by Helga Weinberg in Right Groin via Subcutaneous. 17:27:40 Vascular access was obtained in the Fem Vein (right). 02/02/2018 6:40:10 PM Financial #: [id number] 5 of 7 Patient Name: Angel Constantino Study #: [id number] Initial MD: Helga Weinberg Date of : 1945 Study Date: 02/02/2018 17:28:08 Reference ECG taken 17:28:21 Vascular access was obtained in the Fem Vein (right). 17:29:15 A SHEATH, EPS, FR6 FAST CATH FR 6 was advanced into the Fem Vein (right) using the Modified Seldinger technique. 17:29:45 A SHEATH, EPS, FR8 FAST CATH FR 8 was advanced into the Fem Vein (right) using the Modified Seldinger technique. 17:29:50 3000 units HEPARIN given in lab by Anesthesia, OPERATOR WEAPON LOCATING RADAR via Peripheral IV. Ordered by Leonor Weinberg. 17:30:24 A WIRE, GUIDE AMPLATZ STIFF 180CM 3MMJ was inserted via Fem Vein (right). 17:31:25 A DILATOR SET (MICRA) FR8-12 was advanced into the Fem Art (right) using the Modified Seldi nger technique. 17:34:59 MICRA SHEATH INSERTED 17:35:35 MICRA DELIVERY SYSTEM INSERTED 17:39:01 MICRA INSERTED 17:44:15 MICRA DEPLOYED 17:45:01 MICRA placement verified under fluoroscopy 17:45:11 The RV lead impedance and threshold being tested. A CATHETER, DARIUS, QUAD FR 5 was advanced vis Fem Vein (right) and placed in the RVA. Placement w as visually 17:46:06 confirmed under fluoroscopy. A CATHETER, CELSIUS THERMOCOOL F FR 7 was advanced vis Fem Vein (right) and placed in the AV NO DE. 17:56:06 Placement was visually confirmed under fluoroscopy. 17:58:00 Catheter was removed A SHEATH, FR8.5 STEERABLE SM 71CM 71CM was exchanged in the Fem Vein (right). This was necessar y in order for 18:00:10 catheter support. OVER 0.32 WIRE A CATHETER, CELSIUS THERMOCOOL F FR 7 was advanced vis Fem Vein (right) and placed in the AV NO DE. 18:06:58 Placement was visually confirmed under fluoroscopy. 18:08:41 RF Ablation of the AV NODE with a CATHETER, CELSIUS THERMOCOOL F FR 7. 18:12:06 NODE ABLATED PACING IN PROGRESS 5 mcg/min ISUPREL given in lab by Anesthesia, OPERATOR WEAPON LOCATING RADAR via Peripheral IV. Pump/Drip Flow = 75 ml/hr using NaCl .9 with 18:12:32 a concentration of 1 mg in 250 ml. Ordered by Helga Weinberg. 18:16:16 Catheter was removed QUAD 18:19:58 6F VASCADED 18:20:25 Catheter(s) removed without difficulty Sheath removed; pressure applied to access site. FIGURE [address] PRESSURE HELD TO SITE 20MINUTE BY 18:20:28 MADELYN Ferreira 18:20:53 ZAKI KAUR 18:21:51 Case End (Physician broke scrub) 18:26:12 Catheter(s) removed without difficulty 18:26:15 Sheath removed; pressure applied to access site. 18:26:17 Sterile dressing applied to site 18:26:18 No case complications noted. 18:26:19 Cine recording checked. 18:27:17 Bedside Report will be given. 18:27:18 Implantable Device card placed in patient's chart. 18:27:18 PACU called. Spoke to SADI 02/02/2018 6:40:10 PM Financial #: [id number] Patient Name: Angel Constantino Study #: [id number] Initial MD: Helga Weinbegr Date of : 1945 Study Date: 02/02/2018 18:36:06 PACU called. Spoke to SADI NO LONGER GOING TO PACU 18:36:25 IMC called. Spoke to LINDEN End Study - Contrast Media Used In Study Contrast Total Opened (mL) Total Used (mL) Total Wasted (mL) Omnipaque 20 20 0 End Study - Maximum Contrast Load Max Contrast Load (mL) 78.3 End Study - Radiation Exposure Fluoro Time (minutes) 7.6 End Study - Patient Disposition Complications Transferred To Interventional Outcome No Telemetry Bed successful 02/02/2018 6:40:10 PM Financial #: [id number]
[2018-02-02] MEDS ORDERED: Ketamine Inj 500 MG/10 ML Vial ONE (18:48)
--- NOTE | 2018-02-02 19:15 | MA ---
cc: Helga Weinberg MD,Leroy Guzman,Sameer Banks MD DATE: 02/02/2018 REFERRING PHYSICIANS: Leroy Waters MD, Sameer Guzman MD. CLINICAL INDICATIONS: The patient is a 72-year-old gentleman with persistent atrial fibrillation with intermittent tachycardia and hypotension. The patient does have a Micra inserted and so far shows normal function and we will proceed with AV node ablation. PROCEDURE IN DETAIL: The patient was sedated by the anesthesiologist using MAC. The patient was sitting in a third degree angle. We did an EP study and so far showed the patient in atrial fibrillation with a heart rate ranging from 500-700 milliseconds. QRS is 104 milliseconds. QTc is 340 milliseconds. HV is 84 milliseconds. Then, we proceeded with mapping of the AV node. I was difficult. We did use an Agilis small curve catheter and we also used ThermoCool ablation F curve. Then, we did map the AV node and AH and ablation resulted in complete heart block within seconds. Then, the patient was put on isoproterenol 5 mcg without any recovery of AV node conduction. Then, the ablation catheter was removed and the venous sheath was closed by a 6 [place] Vascade. CONCLUSION: 1. Successful atrioventricular node ablation using 4 mm ThermoCool F curve. 2. Isuprel drug testing and programmed stimulation. 3. Mapping of atrioventricular node by 2-D mapping. It was difficult mapping. We did use an Agilis small curve. ESTIMATED BLOOD LOSS: About 10 mL. Thank you, Dr. Waters and Dr. Guzman. MD YONNY Hale/alea , 06:28 PM , 06:35 PM
[2018-02-03 06:12] LABS: Baso % (Auto) 0.1 % (0.0-2.0); Hematocrit 32.1 % (39.0-51.0); Hemoglobin 10.2 gm/dL (13.0-17.0); Lymph # (Auto) 0.2 th/mm3 (1.0-4.8); Lymph % (Auto) 2.2 % (9.0-44.0); Mean Corpuscular HGB Conc 31.8 % (32.0-36.0); Mean Corpuscular Hemoglobin 27.7 pg (27.0-34.0); Mean Corpuscular Volume 87.1 fL (80.0-100.0); Mean Platelet Volume 9.1 fL (7.0-11.0); Mono # (Auto) 0.3 th/mm3 (0.0-0.9); Mono % (Auto) 3.4 % (0.0-8.0); Neut % (Auto) 94.3 % (16.0-70.0); Platelet Count 175 th/mm3 (150-450); Red Blood Count 3.68 mil/mm3 (4.50-5.90); Red Cell Distribution Width 17.3 % (11.6-17.2); White Blood Count 8.5 th/mm3 (4.0-11.0)
[2018-02-03 06:19] LABS: INR 2.5 Ratio; Prothrombin Time 24.8 sec (9.8-11.6)
[2018-02-03] MEDS: Insulin NovoLIN Regular Correctional Sugar Inj SQ SCH ×4 (08:00→21:51)
[2018-02-03] MEDS: Senna/Docusate Sodium 8.6/50 MG Tablet PO SCH ×2 (09:00→21:52)
[2018-02-03] MEDS: Budesonide-Formoterol 160/4.5 MCG 6 GM Inhaler INH SCH ×2 (09:00→21:52)
--- NOTE | 2018-02-03 09:14 | MA ---
cc: Helga Weinberg MD DATE: 02/02/2018 REFERRING PHYSICIAN: Dr. Guzman and Dr. Waters CLINICAL INDICATIONS: The patient is a 72-year-old lady with persistent atrial fibrillation with tachycardia and hypotension despite multiple medications, thus, the patient came in for micro implantation prior to planned AV node ablation for this patient. PROCEDURE IN DETAIL: The patient was sedated by anesthesiologist using MAC. The patient was sitting about 30 degrees. The patient was prepped and draped in sterile fashion. The right femoral vein was accessed and 8-Lithuanian sheath was placed. We did enlarge to a 24-Lithuanian MicroSheath. It was placement given the patient was sitting in 30-degree angle. Then, using the micro sheath, we were able to place Micra in the RV septum region, so far it is confirmed by the contrast injection. Then, it was released, so far is sitting in the mid to high septum with tug test showing 3/4 stretched. It past the tug test with 3/4 times. Then the device was released, so far it has R-wave sensing 8.2 millivolts, threshold is 0.63 volt at 0.24 milliseconds, impedance 600 ohms. The patient tolerated the procedure without any problem. We did give heparin during the procedure and the MicroSheath was inserted enlarging with multiple dilators, then we closed using [id number] sutures. The device information is a Medtronic Micra and serial number is [id number]. Final settings VVIR 80-100. CONCLUSION: Successful Medtronic Micra insertion in the mid to high septum region. Then, we proceeded with AV node modification. MD YONNY Hale/GIRMA , 06:25 PM , 06:32 PM
[2018-02-03] MEDS ORDERED: Iohexol 350 MG/ML 50 ML Vial (for EPS) IVCONTRAST ONE (09:36)
[2018-02-03] MEDS: Piperacil/Tazo 2.25 GM Premix 50 ML IV.SIG SCH (11:00)
--- NOTE | 2018-02-03 11:12 | P.PNPAL ---
Reason for Visit Reason for visit: a. To assist with evaluation and management of symptoms including: Dyspnea, weakness b. To assist medical decision maker(s) with: better understanding of current medical conditions; weighing benefits/burdens of medical treatment options; making medical treatment decisions. Subjective Subjective/Interval History: Patient seen today for follow-up on symptom management of dyspnea, weakness. Patient underwent insertion of a Medtronic Micra pacemaker followed by AV gilbert ablation yesterday, and apparently tolerated the procedure well. Patient believes he is somehow more clearheaded after that. He has no pain, and he does not feel dyspneic at rest. However, he remains on high flow 20 L oxygen and while he is in conversation with me his saturations are only 90 or if he is quiet and not talking and at rest he gets up into the upper 90s.. Remains afebrile. White count 8. . Advance Directives Health Care Surrogate: Copy in medical record Advance Directives Date on File: 02/02/18 Health Care Surrogate Name and Number: daughter Ms. Greer Objective Vital Signs: Vital Signs 02/02/18 11:14 02/02/18 11:15 02/02/18 11:30 Temperature Pulse Rate 90 82 Respiratory Rate 16 22 18 Blood Pressure 101/58 L 90/52 L Pulse Oximetry 89 L 94 L 02/02/18 11:45 02/02/18 11:52 02/02/18 12:00 Temperature Pulse Rate 92 H 75 89 Respiratory Rate 19 18 13 Blood Pressure 101/53 L 100/64 93/62 L Pulse Oximetry 94 L 92 L 98 02/02/18 13:01 02/02/18 14:00 02/02/18 15:00 Temperature Pulse Rate 103 H 98 H 101 H Respiratory Rate 13 21 14 Blood Pressure 120/63 119/73 115/74 Pulse Oximetry 97 95 97 02/02/18 15:55 02/02/18 16:00 02/02/18 19:25 Temperature Pulse Rate 103 H Respiratory Rate 16 21 Blood Pressure 116/63 Pulse Oximetry 92 L 94 L 02/02/18 20:00 02/02/18 22:00 02/02/18 23:24 Temperature 98.4 F Pulse Rate 80 80 Respiratory Rate 17 Blood Pressure 104/55 L Pulse Oximetry 92 L 93 L 02/02/18 23:25 02/03/18 00:00 02/03/18 02:00 Temperature 98.2 F Pulse Rate 80 80 Respiratory Rate 20 Blood Pressure 96/53 L Pulse Oximetry 93 L 92 L 02/03/18 03:25 02/03/18 04:00 02/03/18 06:00 Temperature 98.6 F Pulse Rate 79 79 Respiratory Rate 13 Blood Pressure 115/55 L Pulse Oximetry 97 99 02/03/18 08:05 Temperature Pulse Rate Respiratory Rate Blood Pressure Pulse Oximetry 93 L Intake & Output 02/02/18 02/03/18 02/03/18 18:59 06:59 18:59 Intake Total 400 / 400 Output Total 4540 / 4540 0 / 0 Balance -4540 / -4540 400 / 400 Weight 97.5 kg Intake: IV 100 / 100 Zosyn 2.25 GM Premix 50 ML @ 100 / 100 100 mls/hr IV.SIG Q12H PEDRO Rx#: [id number] Oral 300 / 300 Output: Urine 40 / 40 0 / 0 Hemodialysis Amount 4500 / 4500 Other: Date of Last Bowel Movement 02/01/18 02/01/18 02/01/18 # Bowel Movements 0 Physical Exam: CONSTITUTIONAL/GENERAL: This is an adequately nourished patient, appears weak, in no apparent distress. NECK: Trachea midline. Supple, nontender. No palpable thyroid enlargement or nodularity. CARDIOVASCULAR: S1, S2, irregular rhythm, controlled rate, no rub murmur or gallop. RESPIRATORY/CHEST: Diminished breath sounds with bibasilar crackles, some accessory muscle use noted today, No rhonchi or wheezes. GASTROINTESTINAL: Abdomen soft, non-tender, nondistended. No hepato-splenomegaly , or palpable masses. No guarding. Bowel sounds present. GENITOURINARY: Without palpable bladder distension. MUSCULOSKELETAL: Extremities without clubbing, cyanosis, or edema. No joint tenderness or effusion noted. No calf tenderness. No mottling or clubbing. NEUROLOGICAL: Appears tired, fatigued, oriented 4. Motor and sensory grossly within normal limits. Follows commands. Moves all extremities. PSYCHIATRIC: Appears less anxious than previous assessment. . Diagnostic Tests Laboratory: Laboratory Results - last 72 hr 01/31/18 01/31/18 01/31/18 11:42 12:49 16:58 WBC RBC Hgb Hct MCV MCH MCHC RDW Plt Count MPV Neut % (Auto) Lymph % (Auto) Stanley % (Auto) Eos % (Auto) Baso % (Auto) Neut # (Auto) Lymph # (Auto) Stanley # (Auto) Eos # (Auto) Baso # (Auto) WBC Differential Differential Comment PT 33.4 H D INR 3.3 Puncture Site Patient Temperature O2 Saturation ABG pH ABG pCO2 ABG pO2 ABG HCO3 ABG O2 Content ABG Base Excess ABG Methemoglobin Eligio Test Hemoglobin Carboxyhemoglobin O2 Delivery Device Liter Flow Inspired O2 Critical Value Sodium Potassium Chloride Carbon Dioxide Anion Gap BUN Creatinine Estimated GFR POC Glucose 173 H 320 H Random Glucose Calcium Total Bilirubin AST ALT Alkaline Phosphatase Total Protein Albumin Blood Type Blood Type Recheck Antibody Screen 01/31/18 02/01/18 02/01/18 21:14 04:40 04:40 WBC 10.2 RBC 3.89 L Hgb 10.8 L Hct 34.0 L MCV 87.5 MCH 27.7 MCHC 31.7 L RDW 17.8 H Plt Count 194 MPV 9.1 Neut % (Auto) 94.3 H Lymph % (Auto) 2.5 L Stanley % (Auto) 3.2 Eos % (Auto) 0.0 Baso % (Auto) 0.0 Neut # (Auto) 9.6 H Lymph # (Auto) 0.3 L Stanley # (Auto) 0.3 Eos # (Auto) 0.0 Baso # (Auto) 0.0 WBC Differential . Differential Comment Auto diff final PT 34.0 H INR 3.4 Puncture Site Patient Temperature O2 Saturation ABG pH ABG pCO2 ABG pO2 ABG HCO3 ABG O2 Content ABG Base Excess ABG Methemoglobin Eligio Test Hemoglobin Carboxyhemoglobin O2 Delivery Device Liter Flow Inspired O2 Critical Value Sodium Potassium Chloride Carbon Dioxide Anion Gap BUN Creatinine Estimated GFR POC Glucose 339 H Random Glucose Calcium Total Bilirubin AST ALT Alkaline Phosphatase Total Protein Albumin Blood Type Blood Type Recheck Antibody Screen 02/01/18 02/01/18 02/01/18 04:40 08:01 11:29 WBC RBC Hgb Hct MCV MCH MCHC RDW Plt Count MPV Neut % (Auto) Lymph % (Auto) Stanley % (Auto) Eos % (Auto) Baso % (Auto) Neut # (Auto) Lymph # (Auto) Stanley # (Auto) Eos # (Auto) Baso # (Auto) WBC Differential Differential Comment PT INR Puncture Site Patient Temperature O2 Saturation ABG pH ABG pCO2 ABG pO2 ABG HCO3 ABG O2 Content ABG Base Excess ABG Methemoglobin Eligio Test Hemoglobin Carboxyhemoglobin O2 Delivery Device Liter Flow Inspired O2 Critical Value Sodium 136 Potassium 4.6 Chloride 97 L Carbon Dioxide 26.8 Anion Gap 12 BUN 46 H Creatinine 6.17 H Estimated GFR 9 L POC Glucose 284 H 319 H Random Glucose 211 H Calcium 9.4 Total Bilirubin 0.9 AST 15 ALT 25 Alkaline Phosphatase 133 H Total Protein 7.8 Albumin 3.1 L Blood Type Blood Type Recheck Antibody Screen 02/01/18 02/01/18 02/02/18 17:22 21:29 03:39 WBC RBC Hgb Hct MCV MCH MCHC RDW Plt Count MPV Neut % (Auto) Lymph % (Auto) Stanley % (Auto) Eos % (Auto) Baso % (Auto) Neut # (Auto) Lymph # (Auto) Stanley # (Auto) Eos # (Auto) Baso # (Auto) WBC Differential Differential Comment PT 32.1 H INR 3.2 Puncture Site Patient Temperature O2 Saturation ABG pH ABG pCO2 ABG pO2 ABG HCO3 ABG O2 Content ABG Base Excess ABG Methemoglobin Eligio Test Hemoglobin Carboxyhemoglobin O2 Delivery Device Liter Flow Inspired O2 Critical Value Sodium Potassium Chloride Carbon Dioxide Anion Gap BUN Creatinine Estimated GFR POC Glucose 324 H 436 H Random Glucose Calcium Total Bilirubin AST ALT Alkaline Phosphatase Total Protein Albumin Blood Type Blood Type Recheck Antibody Screen 02/02/18 02/02/18 02/02/18 03:39 03:39 09:05 WBC 11.4 H RBC 3.77 L Hgb 10.4 L Hct 32.4 L MCV 86.0 MCH 27.6 MCHC 32.0 RDW 17.5 H Plt Count 197 MPV 9.2 Neut % (Auto) 94.3 H Lymph % (Auto) 2.0 L Stanley % (Auto) 3.7 Eos % (Auto) 0.0 Baso % (Auto) 0.0 Neut # (Auto) 10.7 H Lymph # (Auto) 0.2 L Stanley # (Auto) 0.4 Eos # (Auto) 0.0 Baso # (Auto) 0.0 WBC Differential . Differential Comment Auto diff final PT INR Puncture Site Patient Temperature O2 Saturation ABG pH ABG pCO2 ABG pO2 ABG HCO3 ABG O2 Content ABG Base Excess ABG Methemoglobin Eligio Test Hemoglobin Carboxyhemoglobin O2 Delivery Device Liter Flow Inspired O2 Critical Value Sodium Potassium Chloride Carbon Dioxide Anion Gap BUN Creatinine Estimated GFR POC Glucose 334 H Random Glucose Calcium Total Bilirubin AST ALT Alkaline Phosphatase Total Protein Albumin Blood Type A Positive Blood Type Recheck Not needed Antibody Screen Negative 02/02/18 02/02/18 02/02/18 11:45 11:47 13:55 WBC RBC Hgb Hct MCV MCH MCHC RDW Plt Count MPV Neut % (Auto) Lymph % (Auto) Stanley % (Auto) Eos % (Auto) Baso % (Auto) Neut # (Auto) Lymph # (Auto) Stanley # (Auto) Eos # (Auto) Baso # (Auto) WBC Differential Differential Comment PT INR Puncture Site Right radial Patient Temperature 98.6 O2 Saturation 96 ABG pH 7.43 H ABG pCO2 45 H ABG pO2 146 H ABG HCO3 29 H ABG O2 Content 15.3 ABG Base Excess 4.7 H ABG Methemoglobin 1.5 Eligio Test Present Hemoglobin 11.1 L Carboxyhemoglobin 1.7 O2 Delivery Device Non-rebreathing mask Liter Flow 15.00 Inspired O2 100 Critical Value No Sodium Potassium Chloride Carbon Dioxide Anion Gap BUN Creatinine Estimated GFR POC Glucose 69 195 H Random Glucose Calcium Total Bilirubin AST ALT Alkaline Phosphatase Total Protein Albumin Blood Type Blood Type Recheck Antibody Screen 02/02/18 02/03/18 02/03/18 21:08 05:30 05:30 WBC 8.5 RBC 3.68 L Hgb 10.2 L Hct 32.1 L MCV 87.1 MCH 27.7 MCHC 31.8 L RDW 17.3 H Plt Count 175 MPV 9.1 Neut % (Auto) 94.3 H Lymph % (Auto) 2.2 L Stanley % (Auto) 3.4 Eos % (Auto) 0.0 Baso % (Auto) 0.1 Neut # (Auto) 8.0 H Lymph # (Auto) 0.2 L Stanley # (Auto) 0.3 Eos # (Auto) 0.0 Baso # (Auto) 0.0 WBC Differential . Differential Comment Auto diff final PT 24.8 H INR 2.5 Puncture Site Patient Temperature O2 Saturation ABG pH ABG pCO2 ABG pO2 ABG HCO3 ABG O2 Content ABG Base Excess ABG Methemoglobin Eligio Test Hemoglobin Carboxyhemoglobin O2 Delivery Device Liter Flow Inspired O2 Critical Value Sodium Potassium Chloride Carbon Dioxide Anion Gap BUN Creatinine Estimated GFR POC Glucose 218 H Random Glucose Calcium Total Bilirubin AST ALT Alkaline Phosphatase Total Protein Albumin Blood Type Blood Type Recheck Antibody Screen Result Diagrams: 02/03/18 05:30 02/01/18 04:40 Procedures: 01/26/18: Cardiac catheterization 02/02/18: Cardiac catheterization: Insertion of Medtronic Micra and AV gilbert ablation Assessment and Plan - Disease Oriented Problem List (1) Atrial fibrillation with rapid ventricular response (2) Chronic kidney disease with end stage renal failure on dialysis (3) Respiratory failure Comment: Hypoxic, requiring high flow oxygen - Symptom Scale (1) Dyspnea 0-10 Scale: 2 Pertinent Non-Medical Issues: Psychosocial:He was born in [place] but has been in [place] for many years , 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 Spiritual:[employer] Intern available. Legal:His daughter, Dinorah Greer, is his healthcare decision maker/HCS. Ethical issues impacting care: None noted. Important Contacts: Daughter: Dinorah Greer . Prognosis: His prognosis is guarded. He is short of breath at rest, remains in atrial fib , rate reasonably well controlled. He continues to complain of intermittent chest pain and given his recent left heart catheterization showing mild to moderate coronary disease, this is unlikely to be caused by anginal pain. He has significant hypoxic lung disease/respiratory failure, end-stage renal disease, diabetes, hypertension and is at risk for further complications and decline. . Code Status: Full Code Plan: PLAN: DECISION-MAKING: The patient is capacitated to make his own decisions however requests assisted decision making with his daughter, Dinorah Greer. He has verbalized that he wants Ms. Greer to be his healthcare surrogate. GOALS: Aggressive. Patient states he does not want to sign a DNR and would accept mechanical ventilation if required. CODE STATUS: FULL CODE SYMPTOMS: * Weakness: Progressively worsening, secondary to extended ICU status, bedbound status, severe respiratory insufficiency, increased work of breathing. Unable to effectively participate in PT due to dyspnea and weakness. * Dyspnea: Multifactorial to include past history of smoking, prior asbestos exposure, prior exposure to concrete dust, atrial fibrillation, as well as agent orange exposure in [place]. He is requiring high flow nasal cannula. His respiratory status would be expected to continue to decline in the upcoming days/weeks, and he is at risk of requiring intubation. Palliative care will continue to follow the patient during hospital course as condition evolves, to assist patient/decision-maker with understanding of their medical conditions, weighing benefits/burdens of treatment options, for clarification of goals of treatment. Additionally will assist with any symptoms of palliative concern. . Time Spent Total Floor Time (mins): 36 Face to Face Time (mins): 24 >50% Time in Counseling or Coordination of Care: Yes (d/w RN) Attestation Attestation: To help prompt me to consider important information that might be impacting today's encounter and assessment, information from prior notes written by myself or my colleagues may have been "brought forward" into today's note. My signature on this note, however, is an attestation that I personally performed the exam, history, and/or decision-making noted today, and, unless otherwise indicated, the interactions with patient, family, and staff as well as the review of records all occurred today. I also attest that the listed assessment and stated plan reflect my best clinical judgment today based on the combination of historical information, prior notes, and today's exam/ interactions. When time spent is documented, it refers only to time spent today by the signer, or if indicated, combined time spent today by collaborating physician/nurse practitioner.
--- NOTE | 2018-02-03 11:26 | P.PNNP ---
Subjective Interval history: He states he feels better. Rhythm paced. Shortness of breath also improved. High flow continues. <Jyoti Ceron - Last Filed: 02/03/18 11:21> Physical Exam Vital signs: Vital Signs 02/02/18 11:30 02/02/18 11:45 02/02/18 11:52 Temperature Pulse Rate 82 92 H 75 Respiratory Rate 18 19 18 Blood Pressure 90/52 L 101/53 L 100/64 Pulse Oximetry 94 L 94 L 92 L 02/02/18 12:00 02/02/18 13:01 02/02/18 14:00 Temperature Pulse Rate 89 103 H 98 H Respiratory Rate 13 13 21 Blood Pressure 93/62 L 120/63 119/73 Pulse Oximetry 98 97 95 02/02/18 15:00 02/02/18 15:55 02/02/18 16:00 Temperature Pulse Rate 101 H 103 H Respiratory Rate 14 16 21 Blood Pressure 115/74 116/63 Pulse Oximetry 97 92 L 02/02/18 19:25 02/02/18 20:00 02/02/18 22:00 Temperature 98.4 F Pulse Rate 80 80 Respiratory Rate 17 Blood Pressure 104/55 L Pulse Oximetry 94 L 92 L 02/02/18 23:24 02/02/18 23:25 02/03/18 00:00 Temperature 98.2 F Pulse Rate 80 Respiratory Rate 20 Blood Pressure 96/53 L Pulse Oximetry 93 L 93 L 92 L 02/03/18 02:00 02/03/18 03:25 02/03/18 04:00 Temperature 98.6 F Pulse Rate 80 79 Respiratory Rate 13 Blood Pressure 115/55 L Pulse Oximetry 97 99 02/03/18 06:00 02/03/18 08:05 Temperature Pulse Rate 79 Respiratory Rate Blood Pressure Pulse Oximetry 93 L Intake & Output 02/02/18 02/03/18 02/03/18 18:59 06:59 18:59 Intake Total 400 / 400 Output Total 4540 / 4540 0 / 0 Balance -4540 / -4540 400 / 400 Weight 97.5 kg Intake: IV 100 / 100 Zosyn 2.25 GM Premix 50 ML @ 100 / 100 100 mls/hr IV.SIG Q12H PEDRO Rx#: [id number] Oral 300 / 300 Output: Urine 40 / 40 0 / 0 Hemodialysis Amount 4500 / 4500 Other: Date of Last Bowel Movement 02/01/18 02/01/18 02/01/18 # Bowel Movements 0 - Constitutional no acute distress, chronically ill appearing - Routine Neck Exam Present: supple, full ROM - Routine Respiratory Exam Present: CTA bilaterally. Absent: accessory muscle use - Routine Cardiovascular Exam Present: S1, S2 Comments: paced rhythm - Routine Abdominal Exam Present: soft, normoactive bowel sounds. Absent: guarding - Routine Extremities Exam Present: full ROM, pulses intact, normal capillary refill. Absent: edema - Routine Skin Exam Present: intact, warm - Routine Neurological Exam Present: alert, oriented X3, CN II-XII intact - Detailed Neurological Exam: Coma Scale Eye Opening: Spontaneous Verbal Response: Oriented Motor Response: Obey commands [place] Coma Scale Total: 15 - Routine Psychiatric Exam Present: normal affect, normal thought process <Jyoti Ceron - Last Filed: 02/03/18 11:21> Vital signs: Vital Signs 02/02/18 11:45 02/02/18 11:52 02/02/18 12:00 Temperature Pulse Rate 92 H 75 89 Respiratory Rate 19 18 13 Blood Pressure 101/53 L 100/64 93/62 L Pulse Oximetry 94 L 92 L 98 02/02/18 13:01 02/02/18 14:00 02/02/18 15:00 Temperature Pulse Rate 103 H 98 H 101 H Respiratory Rate 13 21 14 Blood Pressure 120/63 119/73 115/74 Pulse Oximetry 97 95 97 02/02/18 15:55 02/02/18 16:00 02/02/18 19:25 Temperature Pulse Rate 103 H Respiratory Rate 16 21 Blood Pressure 116/63 Pulse Oximetry 92 L 94 L 02/02/18 20:00 02/02/18 22:00 02/02/18 23:01 Temperature 98.4 F Pulse Rate 80 80 80 Respiratory Rate 17 19 Blood Pressure 104/55 L Pulse Oximetry 92 L 91 L 02/02/18 23:24 02/02/18 23:25 02/02/18 23:30 Temperature Pulse Rate 80 Respiratory Rate 24 Blood Pressure 101/56 L Pulse Oximetry 93 L 93 L 91 L 02/03/18 00:00 02/03/18 00:30 02/03/18 01:00 Temperature 98.2 F Pulse Rate 80 80 80 Respiratory Rate 20 27 H 29 H Blood Pressure 96/53 L 108/60 112/60 Pulse Oximetry 88 L 91 L 89 L 02/03/18 01:30 02/03/18 02:00 02/03/18 02:03 Temperature Pulse Rate 80 80 80 Respiratory Rate 22 25 H 23 Blood Pressure 116/60 119/61 Pulse Oximetry 92 L 92 L 89 L 02/03/18 02:30 02/03/18 03:00 02/03/18 03:25 Temperature Pulse Rate 80 79 Respiratory Rate 20 20 Blood Pressure 106/65 115/59 L Pulse Oximetry 88 L 91 L 97 02/03/18 03:30 02/03/18 04:00 02/03/18 04:30 Temperature 98.6 F Pulse Rate 79 79 80 Respiratory Rate 13 13 18 Blood Pressure 107/55 L 115/55 L 112/61 Pulse Oximetry 97 99 94 L 02/03/18 05:00 02/03/18 05:30 02/03/18 06:00 Temperature Pulse Rate 80 80 79 Respiratory Rate 12 27 H 19 Blood Pressure 114/60 116/67 126/64 Pulse Oximetry 98 98 92 L 02/03/18 06:30 02/03/18 07:00 02/03/18 07:30 Temperature Pulse Rate 79 80 80 Respiratory Rate 22 12 26 H Blood Pressure 118/65 121/64 116/75 Pulse Oximetry 95 99 92 L 02/03/18 08:00 02/03/18 08:05 02/03/18 08:30 Temperature Pulse Rate 80 79 Respiratory Rate 23 31 H Blood Pressure 123/74 121/70 Pulse Oximetry 93 L 93 L 93 L 02/03/18 09:00 02/03/18 09:30 02/03/18 10:00 Temperature Pulse Rate 80 80 80 Respiratory Rate 23 16 31 H Blood Pressure 120/64 100/57 L 99/54 L Pulse Oximetry 91 L 89 L 90 L 02/03/18 10:30 02/03/18 11:00 Temperature Pulse Rate 80 80 Respiratory Rate 21 21 Blood Pressure 103/56 L 103/57 L Pulse Oximetry 89 L 94 L Intake & Output 02/02/18 02/03/18 02/03/18 18:59 06:59 18:59 Intake Total 400 / 400 Output Total 4540 / 4540 0 / 0 Balance -4540 / -4540 400 / 400 Weight 97.5 kg Intake: IV 100 / 100 Zosyn 2.25 GM Premix 50 ML @ 100 / 100 100 mls/hr IV.SIG Q12H PEDRO Rx#: [id number] Oral 300 / 300 Output: Urine 40 / 40 0 / 0 Hemodialysis Amount 4500 / 4500 Other: Date of Last Bowel Movement 02/01/18 02/01/18 02/01/18 # Bowel Movements 0 <Eduardo Salvador - Last Filed: 02/03/18 11:41> Assessment and Plan - Assessment (1) ESRD (end stage renal disease) on dialysis Code(s): N18.6 - End stage renal disease; Z99.2 - Dependence on renal dialysis Status: Acute Plan: Continue HD MWF. 4.5L UF yesterday. Monitor electrolytes intermittently. Avoid IVF administration. Protect left arm from procedures, has new AV access that is not mature. PermCath in place for HD use. Phosphorus level has been acceptable without binder therapy. High protein low K diet with Supplements when he is no longer NPO. Needs nutritional support. (2) Atrial fibrillation with RVR Code(s): I48.91 - Unspecified atrial fibrillation Status: Acute Plan: Improved, s/p AV gilbert ablation with pacemaker placement. On PO Amiodarone. Midodrine is ordered TID for hypotension. Cardiology following. Appreciate recommendations. (3) Hypoxia Code(s): R09.02 - Hypoxemia Status: Acute Plan: He is on high flow oxygen. Ween if able. Shortness of breath improved post procedure yesterday. Fluid removal as tolerated with HD. Pulmonary following. (4) CHF (congestive heart failure) Code(s): I50.9 - Heart failure, unspecified Status: Acute Qualifiers: Heart failure type: unspecified Heart failure chronicity: unspecified Qualified Code(s): I50.9 - Heart failure, unspecified Plan: Stable. EF noted to be around 60%. Fluid removal with dialysis. (5) Anemia in CKD (chronic kidney disease) Code(s): N18.9 - Chronic kidney disease, unspecified; D63.1 - Anemia in chronic kidney disease Status: Acute Plan: On Epogen with dialysis. Hemoglobin is acceptable. <Jyoti Ceron - Last Filed: 02/03/18 11:21> - Assessment (1) ESRD (end stage renal disease) on dialysis Code(s): N18.6 - End stage renal disease; Z99.2 - Dependence on renal dialysis Status: Acute (2) Atrial fibrillation with RVR Code(s): I48.91 - Unspecified atrial fibrillation Status: Acute (3) Hypoxia Code(s): R09.02 - Hypoxemia Status: Acute (4) CHF (congestive heart failure) Code(s): I50.9 - Heart failure, unspecified Status: Acute Qualifiers: Heart failure type: unspecified Heart failure chronicity: unspecified Qualified Code(s): I50.9 - Heart failure, unspecified (5) Anemia in CKD (chronic kidney disease) Code(s): N18.9 - Chronic kidney disease, unspecified; D63.1 - Anemia in chronic kidney disease Status: Acute - Attending Attestation patient was seen and examined. Agree with above assessment and plan. <Eduardo Salvador - Last Filed: 02/03/18 11:41>
--- NOTE | 2018-02-03 12:24 | P.PNCC ---
Subjective Subjective Remarks/Hospital Course: This is a 72yM with history of ESRD on HD who was recently admitted last month for supraventricular tachycardia. It appears from the records that normal sinus rhythm was restored prior to discharge home. He re-presented to the hospital with atrial fibrillation with rapid ventricular response which has been poorly responsive to esmolol infusion. It is noted that there is still a shortage of diltiazem infusions, so none is available to place the patient on. Dr. Waters with cardiology was consulted, as was Dr. Weinberg. The patient has also had hypotension during this hospital stay with most blood pressure readings between 80-100 systolic. This morning, Bystolic was started and was given together with amiodarone 400mg and metoprolol 25mg po. Approximately 2 hours after this, his blood pressure dropped into the 60s and 70s systolic. I was consulted by Dr. Wilcox to evaluate and manage his hemodynamics in the setting of poorly-controlled atrial fibrillation and hypotension. The patient does complain of light-headedness and a little chest discomfort which is new since his blood pressure has dropped into the 70s. He denies any other complaints and tolerated breakfast this AM. ROS otherwise negative. troponins have been serially negative this admission. I performed bedside critical care echocardiography and compared this to images obtained from last hospital admission on 11/2017. Given the poorly controlled nature of the patient's rate, wall motion and accurate ejection fraction are difficult to assess with accuracy. It does appear that the patient has relatively preserved EF and at most only mildly depressed LVEF. Aortic valve is sclerotic but appears unchanged from prior echo which calculated the valve area at ~2cm. no pericardial effusion. IVC is dilated around 2cm without respiratory variation. heart rate on my evaluation is 121. 8/2: Critical care reconsulted by Dr. Weinberg for worsening respiratory failure. Patient dropped O2 sats to 84% on 6 L nasal cannula. When I evaluated patient he was resting in bed. Placed him on high flow nasal cannula 30 L/min 60% FiO2 with which his O2 sats came up to 90%. 01/30: Remains on high flow nasal cannula. CT chest negative for PE shows consolidation bilateral lower lobes and a loculated effusion on the right. Defer to pulmonary regarding further recommendations. 01/31: Remains on high flow nasal cannula. Being dialyzed currently. On 30 L/ min 60% FiO2. O2 sats 96%. Feels that he is breathing a little better. 02/01, 02/02: On high flow nasal cannula at 20 L/min 50% FiO2. Shortness of breath gradually improving. 02/03: On high flow nasal cannula 20 L/min 60% FiO2. Underwent mitral implantation and AV gilbert ablation yesterday by Dr. Weinberg. Sitting up in bed today. Appears comfortable not in any acute distress. Objective Vital Signs / I&O: Vital Signs 02/02/18 13:01 02/02/18 14:00 02/02/18 15:00 Temperature Pulse Rate 103 H 98 H 101 H Respiratory Rate 13 21 14 Blood Pressure 120/63 119/73 115/74 Pulse Oximetry 97 95 97 02/02/18 15:55 02/02/18 16:00 02/02/18 19:25 Temperature Pulse Rate 103 H Respiratory Rate 16 21 Blood Pressure 116/63 Pulse Oximetry 92 L 94 L 02/02/18 20:00 02/02/18 22:00 02/02/18 23:01 Temperature 98.4 F Pulse Rate 80 80 80 Respiratory Rate 17 19 Blood Pressure 104/55 L Pulse Oximetry 92 L 91 L 02/02/18 23:24 02/02/18 23:25 02/02/18 23:30 Temperature Pulse Rate 80 Respiratory Rate 24 Blood Pressure 101/56 L Pulse Oximetry 93 L 93 L 91 L 02/03/18 00:00 02/03/18 00:30 02/03/18 01:00 Temperature 98.2 F Pulse Rate 80 80 80 Respiratory Rate 20 27 H 29 H Blood Pressure 96/53 L 108/60 112/60 Pulse Oximetry 88 L 91 L 89 L 02/03/18 01:30 02/03/18 02:00 02/03/18 02:03 Temperature Pulse Rate 80 80 80 Respiratory Rate 22 25 H 23 Blood Pressure 116/60 119/61 Pulse Oximetry 92 L 92 L 89 L 02/03/18 02:30 02/03/18 03:00 02/03/18 03:25 Temperature Pulse Rate 80 79 Respiratory Rate 20 20 Blood Pressure 106/65 115/59 L Pulse Oximetry 88 L 91 L 97 02/03/18 03:30 02/03/18 04:00 02/03/18 04:30 Temperature 98.6 F Pulse Rate 79 79 80 Respiratory Rate 13 13 18 Blood Pressure 107/55 L 115/55 L 112/61 Pulse Oximetry 97 99 94 L 02/03/18 05:00 02/03/18 05:30 02/03/18 06:00 Temperature Pulse Rate 80 80 79 Respiratory Rate 12 27 H 19 Blood Pressure 114/60 116/67 126/64 Pulse Oximetry 98 98 92 L 02/03/18 06:30 02/03/18 07:00 02/03/18 07:30 Temperature Pulse Rate 79 80 80 Respiratory Rate 22 12 26 H Blood Pressure 118/65 121/64 116/75 Pulse Oximetry 95 99 92 L 02/03/18 08:00 02/03/18 08:05 02/03/18 08:30 Temperature Pulse Rate 80 79 Respiratory Rate 23 31 H Blood Pressure 123/74 121/70 Pulse Oximetry 93 L 93 L 93 L 02/03/18 09:00 02/03/18 09:30 02/03/18 10:00 Temperature Pulse Rate 80 80 80 Respiratory Rate 23 16 31 H Blood Pressure 120/64 100/57 L 99/54 L Pulse Oximetry 91 L 89 L 90 L 02/03/18 10:30 02/03/18 11:00 Temperature Pulse Rate 80 80 Respiratory Rate 21 21 Blood Pressure 103/56 L 103/57 L Pulse Oximetry 89 L 94 L Intake & Output 02/02/18 02/03/18 02/03/18 18:59 06:59 18:59 Intake Total 400 / 400 Output Total 4540 / 4540 0 / 0 Balance -4540 / -4540 400 / 400 Weight 97.5 kg Intake: IV 100 / 100 Zosyn 2.25 GM Premix 50 ML @ 100 / 100 100 mls/hr IV.SIG Q12H [facility] Rx#: [id number] Oral 300 / 300 Output: Urine 40 / 40 0 / 0 Hemodialysis Amount 4500 / 4500 Other: Date of Last Bowel Movement 02/01/18 02/01/18 02/01/18 # Bowel Movements 0 Result Diagrams: 02/03/18 05:30 02/01/18 04:40 Objective Remarks: HEENT/Neuro: No pallor or icterus, tongue moist, CHAVA, Awake alert oriented 3 , nonfocal grossly, moving all 4 extremities Neck: No JVD Chest/pulmonary: Good air entry bilaterally, scattered rhonchi bilaterally, no wheezing or crackles. Cardiovascular: Paced rhythm, no gallop or murmur GI/abdomen: Soft, nontender, bowel sounds present Extremities: Warm bilaterally, no edema Assessment and Plan - Assessment and Plan Plan: Assessment: 72yM with ESRD and poorly controlled atrial fibrillation and now persistent hypotension. In terms of his hypotension, I think the combination of AV gilbert blocking agents has caused significant hypotension in the setting of impaired cardiac output due to rate control. At this time we will hold his Bystolic since it was the newest medication added. I will add a single loading dose of digoxin 0.5mg iv x 1 to help assist in rate control while providing adequate contractility which may be impaired by the significant beta blockade we are providing. Certainly digoxin is not an ideal option for him to be on as a long-term agent given it's renal clearance. 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 I think he has been hypotensive enough during this hospital admission that if we are unable to regain control of his rate, he would be an excellent candidate for KAYLYNN /Cardioversion, but at present he has not been anticoagulated, so I would not pursue this emergently unless his hypotension was refractory or worsening and causing significant additional end-organ dysfunction. Certainly he is critically ill today with persistent hypotension. Active Problems: Acute respiratory failure CAD CHF Possible COPD Atrial Fibrillation with rapid ventricular response end-stage renal disease requiring hemodialysis Persistent hypotension secondary to poor cardiac output Neuro: Follow neuro status. Pain medications as needed. Cardiovascular: Status post cardiac cath. Being followed by Dr. Weinberg was considering AV gilbert ablation with pacemaker placement for refractory A. fib. Amiodarone dose decreased. Continue metoprolol, Midrin, Coumadin for anticoagulation. Fluid removal with hemodialysis. 2D echo with normal LV function however no comment on RVSP Pulmonary: Placed on high flow O2 at 30 L/min, 60% FiO2. CT chest with no evidence of PE however did show emphysematous changes bilateral lower lobe consolidation changes as well as fluid in interlobar fissure on the right. Pulmonary arteries are enlarged with probable pulmonary hypertension. Will resume IV Solu-Medrol. Continue inhaled steroids, bronchodilators per pulmonary. Patient probably has significant pulmonary hypertension-deferred to pulmonary. GI/liver: P.o. diet as tolerated Renal/: On hemodialysis per renal. ID: On Zosyn for empiric antibiotic coverage. Endocrine: Watch for hyperglycemia, SSI for glycemic control if needed Prophylaxis: Pepcid/SCDs. Anticoagulation with Coumadin. May require endotracheal intubation if respiratory status worsens. Time spent on critical care excluding procedures 30 minutes
[2018-02-03] MEDS: MethylPREDNISolone Sod Succinate Inj 125 MG/2 ML Vial IV.PUSH SCH (14:01)
--- NOTE | 2018-02-03 14:01 | P.PNCA ---
Subjective Interval history: alert in nad Physical Exam Vital signs: Vital Signs 02/02/18 15:00 02/02/18 15:55 02/02/18 16:00 Temperature Pulse Rate 101 H 103 H Respiratory Rate 14 16 21 Blood Pressure 115/74 116/63 Pulse Oximetry 97 92 L 02/02/18 19:25 02/02/18 20:00 02/02/18 22:00 Temperature 98.4 F Pulse Rate 80 80 Respiratory Rate 17 Blood Pressure 104/55 L Pulse Oximetry 94 L 92 L 02/02/18 23:01 02/02/18 23:24 02/02/18 23:25 Temperature Pulse Rate 80 Respiratory Rate 19 Blood Pressure Pulse Oximetry 91 L 93 L 93 L 02/02/18 23:30 02/03/18 00:00 02/03/18 00:30 Temperature 98.2 F Pulse Rate 80 80 80 Respiratory Rate 24 20 27 H Blood Pressure 101/56 L 96/53 L 108/60 Pulse Oximetry 91 L 88 L 91 L 02/03/18 01:00 02/03/18 01:30 02/03/18 02:00 Temperature Pulse Rate 80 80 80 Respiratory Rate 29 H 22 25 H Blood Pressure 112/60 116/60 Pulse Oximetry 89 L 92 L 92 L 02/03/18 02:03 02/03/18 02:30 02/03/18 03:00 Temperature Pulse Rate 80 80 79 Respiratory Rate 23 20 20 Blood Pressure 119/61 106/65 115/59 L Pulse Oximetry 89 L 88 L 91 L 02/03/18 03:25 02/03/18 03:30 02/03/18 04:00 Temperature 98.6 F Pulse Rate 79 79 Respiratory Rate 13 13 Blood Pressure 107/55 L 115/55 L Pulse Oximetry 97 97 99 02/03/18 04:30 02/03/18 05:00 02/03/18 05:30 Temperature Pulse Rate 80 80 80 Respiratory Rate 18 12 27 H Blood Pressure 112/61 114/60 116/67 Pulse Oximetry 94 L 98 98 02/03/18 06:00 02/03/18 06:30 02/03/18 07:00 Temperature Pulse Rate 79 79 80 Respiratory Rate 19 22 12 Blood Pressure 126/64 118/65 121/64 Pulse Oximetry 92 L 95 99 02/03/18 07:30 02/03/18 08:00 02/03/18 08:05 Temperature Pulse Rate 80 80 Respiratory Rate 26 H 23 Blood Pressure 116/75 123/74 Pulse Oximetry 92 L 93 L 93 L 02/03/18 08:30 02/03/18 09:00 02/03/18 09:30 Temperature Pulse Rate 79 80 80 Respiratory Rate 31 H 23 16 Blood Pressure 121/70 120/64 100/57 L Pulse Oximetry 93 L 91 L 89 L 02/03/18 10:00 02/03/18 10:30 02/03/18 11:00 Temperature Pulse Rate 80 80 80 Respiratory Rate 31 H 21 21 Blood Pressure 99/54 L 103/56 L 103/57 L Pulse Oximetry 90 L 89 L 94 L 02/03/18 11:30 02/03/18 12:00 02/03/18 12:30 Temperature Pulse Rate 79 80 79 Respiratory Rate 23 32 H 27 H Blood Pressure 111/61 109/59 L 98/57 L Pulse Oximetry 94 L 93 L 98 02/03/18 13:01 02/03/18 13:30 Temperature Pulse Rate 80 80 Respiratory Rate 41 H 32 H Blood Pressure 126/70 111/59 L Pulse Oximetry 92 L 86 L Intake & Output 02/02/18 02/03/18 02/03/18 18:59 06:59 18:59 Intake Total 400 / 400 Output Total 4540 / 4540 0 / 0 Balance -4540 / -4540 400 / 400 Weight 97.5 kg Intake: IV 100 / 100 Zosyn 2.25 GM Premix 50 ML @ 100 / 100 100 mls/hr IV.SIG Q12H [facility] Rx#: [id number] Oral 300 / 300 Output: Urine 40 / 40 0 / 0 Hemodialysis Amount 4500 / 4500 Other: Date of Last Bowel Movement 02/01/18 02/01/18 02/01/18 # Bowel Movements 0 Assessment and Plan - Assessment (1) Atrial fibrillation with rapid ventricular response Code(s): I48.91 - Unspecified atrial fibrillation Status: Acute (2) CHF (congestive heart failure) Code(s): I50.9 - Heart failure, unspecified Status: Acute (3) Chronic kidney disease with end stage renal failure on dialysis Code(s): N18.6 - End stage renal disease; Z99.2 - Dependence on renal dialysis Status: Acute (4) Atrial fibrillation with RVR Code(s): I48.91 - Unspecified atrial fibrillation Status: Acute (5) ESRD (end stage renal disease) on dialysis Code(s): N18.6 - End stage renal disease; Z99.2 - Dependence on renal dialysis Status: Acute - Plan 1.) Afib with rvr - s/p ablation and micra placement 02/02/18 due to failure of medical management for rate control, d/w patient 2.) CAD - continue, lipitor, hold coumadin, f/u inr in am (2) CHF (congestive heart failure) Qualifiers: Heart failure type: unspecified Heart failure chronicity: unspecified Qualified Code(s): I50.9 - Heart failure, unspecified
[2018-02-03] MEDS: Temazepam 15 MG Capsule PO PRN (21:52)
--- NOTE | 2018-02-03 22:57 | P.PN ---
Subjective Interval history: alert high flow nasal o2 sat 97% Physical Exam Vital signs: Vital Signs 02/02/18 23:01 02/02/18 23:24 02/02/18 23:25 Temperature Pulse Rate 80 Respiratory Rate 19 Blood Pressure Pulse Oximetry 91 L 93 L 93 L 02/02/18 23:30 02/03/18 00:00 02/03/18 00:30 Temperature 98.2 F Pulse Rate 80 80 80 Respiratory Rate 24 20 27 H Blood Pressure 101/56 L 96/53 L 108/60 Pulse Oximetry 91 L 88 L 91 L 02/03/18 01:00 02/03/18 01:30 02/03/18 02:00 Temperature Pulse Rate 80 80 80 Respiratory Rate 29 H 22 25 H Blood Pressure 112/60 116/60 Pulse Oximetry 89 L 92 L 92 L 02/03/18 02:03 02/03/18 02:30 02/03/18 03:00 Temperature Pulse Rate 80 80 79 Respiratory Rate 23 20 20 Blood Pressure 119/61 106/65 115/59 L Pulse Oximetry 89 L 88 L 91 L 02/03/18 03:25 02/03/18 03:30 02/03/18 04:00 Temperature 98.6 F Pulse Rate 79 79 Respiratory Rate 13 13 Blood Pressure 107/55 L 115/55 L Pulse Oximetry 97 97 99 02/03/18 04:30 02/03/18 05:00 02/03/18 05:30 Temperature Pulse Rate 80 80 80 Respiratory Rate 18 12 27 H Blood Pressure 112/61 114/60 116/67 Pulse Oximetry 94 L 98 98 02/03/18 06:00 02/03/18 06:30 02/03/18 07:00 Temperature Pulse Rate 79 79 80 Respiratory Rate 19 22 12 Blood Pressure 126/64 118/65 121/64 Pulse Oximetry 92 L 95 99 02/03/18 07:30 02/03/18 08:00 02/03/18 08:05 Temperature Pulse Rate 80 80 Respiratory Rate 26 H 23 Blood Pressure 116/75 123/74 Pulse Oximetry 92 L 93 L 93 L 02/03/18 08:30 02/03/18 09:00 02/03/18 09:30 Temperature Pulse Rate 79 80 80 Respiratory Rate 31 H 23 16 Blood Pressure 121/70 120/64 100/57 L Pulse Oximetry 93 L 91 L 89 L 02/03/18 10:00 08/07/18 10:30 02/03/18 11:00 Temperature Pulse Rate 80 80 80 Respiratory Rate 31 H 21 21 Blood Pressure 99/54 L 103/56 L 103/57 L Pulse Oximetry 90 L 89 L 94 L 02/03/18 11:30 02/03/18 12:00 02/03/18 12:30 Temperature Pulse Rate 79 80 79 Respiratory Rate 23 32 H 27 H Blood Pressure 111/61 109/59 L 98/57 L Pulse Oximetry 94 L 93 L 98 02/03/18 13:01 02/03/18 13:30 02/03/18 14:00 Temperature Pulse Rate 80 80 80 Respiratory Rate 41 H 32 H 12 Blood Pressure 126/70 111/59 L 101/58 L Pulse Oximetry 92 L 86 L 96 02/03/18 14:30 02/03/18 15:00 02/03/18 15:30 Temperature Pulse Rate 80 80 80 Respiratory Rate 13 17 25 H Blood Pressure 108/59 L 119/62 116/58 L Pulse Oximetry 97 100 97 02/03/18 16:00 02/03/18 16:30 02/03/18 17:00 Temperature Pulse Rate 80 79 79 Respiratory Rate 25 H 16 12 Blood Pressure 113/55 L 109/62 110/59 L Pulse Oximetry 99 96 99 02/03/18 17:31 02/03/18 18:00 02/03/18 18:30 Temperature Pulse Rate 80 80 80 Respiratory Rate 27 H 24 22 Blood Pressure 116/73 120/60 113/56 L Pulse Oximetry 84 L 88 L 97 02/03/18 20:00 02/03/18 21:02 02/03/18 22:00 Temperature 97.9 F Pulse Rate 80 80 Respiratory Rate 22 Blood Pressure 115/58 L Pulse Oximetry 96 97 Intake & Output 02/03/18 02/03/18 02/04/18 06:59 18:59 06:59 Intake Total 400 / 400 50 / 50 Output Total 0 / 0 0 / 0 Balance 400 / 400 0 / 0 50 / 50 Weight 97.5 kg Intake: IV 100 / 100 50 / 50 Zosyn 2.25 GM Premix 50 ML @ 100 / 100 50 / 50 100 mls/hr IV.SIG Q12H [facility] Rx#: [id number] Oral 300 / 300 Output: Urine 0 / 0 0 / 0 Other: Date of Last Bowel Movement 02/01/18 02/01/18 02/01/18 # Bowel Movements 0 Narrative: GENERAL: In mild resp. acute distress. HEENT: NC, AT. CARDIOVASCULAR: Irregularly irregular rhythm. RESPIRATORY: No accessory muscle use. Crackles at the bases. GASTROINTESTINAL: Abdomen soft, non-tender, nondistended. Hepatic and splenic margins not palpable. Decreased bowel sounds. MUSCULOSKELETAL: Extremities without clubbing, cyanosis, mild edema. No obvious deformities. Cath site without hematoma. NEUROLOGICAL: Awake and alert. No obvious cranial nerve deficits. Results - Labs CBC & Chem 7: 02/03/18 05:30 02/01/18 04:40 Laboratory Results - last 24 hr 02/03/18 02/03/18 02/03/18 05:30 05:30 12:00 WBC 8.5 RBC 3.68 L Hgb 10.2 L Hct 32.1 L MCV 87.1 MCH 27.7 MCHC 31.8 L RDW 17.3 H Plt Count 175 MPV 9.1 Neut % (Auto) 94.3 H Lymph % (Auto) 2.2 L [place] % (Auto) 3.4 Eos % (Auto) 0.0 Baso % (Auto) 0.1 Neut # (Auto) 8.0 H Lymph # (Auto) 0.2 L [place] # (Auto) 0.3 Eos # (Auto) 0.0 Baso # (Auto) 0.0 WBC Differential . Differential Comment Auto diff final PT 24.8 H INR 2.5 POC Glucose 477 H* 02/03/18 02/03/18 17:51 21:34 WBC RBC Hgb Hct MCV MCH MCHC RDW Plt Count MPV Neut % (Auto) Lymph % (Auto) [place] % (Auto) Eos % (Auto) Baso % (Auto) Neut # (Auto) Lymph # (Auto) [place] # (Auto) Eos # (Auto) Baso # (Auto) WBC Differential Differential Comment PT INR POC Glucose 482 H* 442 H Assessment and Plan - Plan RESPIRATORY FAILURE RENAL FAILURE ? COPD Chest pain CHF POST AV NODE ABLATION PLAN O2 NEEDED BRONCHODILATOR THERAPY INCREASE ACTIVITY taper steroids ECHOCARDIOGRAM IF NOT DONE TOASSESS SIGNIFICANCE OF PAH
[2018-02-04] MEDS: Piperacil/Tazo 2.25 GM Premix 50 ML IV.SIG SCH ×3 (00:17→23:48)
[2018-02-04] MEDS: MethylPREDNISolone Sod Succinate Inj 125 MG/2 ML Vial IV.PUSH SCH (00:18)
[2018-02-04 06:10] LABS: INR 2.1 Ratio; Prothrombin Time 21.4 sec (9.8-11.6)
[2018-02-04] MEDS: Insulin NovoLIN Regular Correctional Sugar Inj SQ SCH ×3 (08:08→23:48)
[2018-02-04] MEDS: Budesonide-Formoterol 160/4.5 MCG 6 GM Inhaler INH SCH ×2 (08:09→21:12)
[2018-02-04] MEDS: Senna/Docusate Sodium 8.6/50 MG Tablet PO SCH ×2 (08:09→21:13)
[2018-02-04] MEDS ORDERED: Dextrose 50% in Water 50 ML Vial IV.PUSH PRN ×2 (08:41→16:47)
--- NOTE | 2018-02-04 08:48 | P.PNCC ---
Subjective Subjective Remarks/Hospital Course: This is a 72yM with history of ESRD on HD who was recently admitted last month for supraventricular tachycardia. It appears from the records that normal sinus rhythm was restored prior to discharge home. He re-presented to the hospital with atrial fibrillation with rapid ventricular response which has been poorly responsive to esmolol infusion. It is noted that there is still a shortage of diltiazem infusions, so none is available to place the patient on. Dr. Waters with cardiology was consulted, as was Dr. Weinberg. The patient has also had hypotension during this hospital stay with most blood pressure readings between 80-100 systolic. This morning, Bystolic was started and was given together with amiodarone 400mg and metoprolol 25mg po. Approximately 2 hours after this, his blood pressure dropped into the 60s and 70s systolic. I was consulted by Dr. Wilcox to evaluate and manage his hemodynamics in the setting of poorly-controlled atrial fibrillation and hypotension. The patient does complain of light-headedness and a little chest discomfort which is new since his blood pressure has dropped into the 70s. He denies any other complaints and tolerated breakfast this AM. ROS otherwise negative. troponins have been serially negative this admission. I performed bedside critical care echocardiography and compared this to images obtained from last hospital admission on 11/2017. Given the poorly controlled nature of the patient's rate, wall motion and accurate ejection fraction are difficult to assess with accuracy. It does appear that the patient has relatively preserved EF and at most only mildly depressed LVEF. Aortic valve is sclerotic but appears unchanged from prior echo which calculated the valve area at ~2cm. no pericardial effusion. IVC is dilated around 2cm without respiratory variation. heart rate on my evaluation is 121. 8/2: Critical care reconsulted by Dr. Weinberg for worsening respiratory failure. Patient dropped O2 sats to 84% on 6 L nasal cannula. When I evaluated patient he was resting in bed. Placed him on high flow nasal cannula 30 L/min 60% FiO2 with which his O2 sats came up to 90%. 01/30: Remains on high flow nasal cannula. CT chest negative for PE shows consolidation bilateral lower lobes and a loculated effusion on the right. Defer to pulmonary regarding further recommendations. 01/31: Remains on high flow nasal cannula. Being dialyzed currently. On 30 L/ min 60% FiO2. O2 sats 96%. Feels that he is breathing a little better. 02/01, 02/02: On high flow nasal cannula at 20 L/min 50% FiO2. Shortness of breath gradually improving. 02/03: On high flow nasal cannula 20 L/min 60% FiO2. Underwent mitral implantation and AV gilbert ablation yesterday by Dr. Weinberg. Sitting up in bed today. Appears comfortable not in any acute distress. 02/04 Patient 02/04 Patient is awake and alert on high flow oxygen 25L with 70% FIO2> Afebrile. For HD today Objective Vital Signs / I&O: Vital Signs 02/03/18 08:30 02/03/18 09:00 02/03/18 09:30 Temperature Pulse Rate 79 80 80 Respiratory Rate 31 H 23 16 Blood Pressure 121/70 120/64 100/57 L Pulse Oximetry 93 L 91 L 89 L 02/03/18 10:00 02/03/18 10:30 02/03/18 11:00 Temperature Pulse Rate 80 80 80 Respiratory Rate 31 H 21 21 Blood Pressure 99/54 L 103/56 L 103/57 L Pulse Oximetry 90 L 89 L 94 L 02/03/18 11:30 02/03/18 12:00 02/03/18 12:30 Temperature Pulse Rate 79 80 79 Respiratory Rate 23 32 H 27 H Blood Pressure 111/61 109/59 L 98/57 L Pulse Oximetry 94 L 93 L 98 02/03/18 13:01 02/03/18 13:30 02/03/18 14:00 Temperature Pulse Rate 80 80 80 Respiratory Rate 41 H 32 H 12 Blood Pressure 126/70 111/59 L 101/58 L Pulse Oximetry 92 L 86 L 96 02/03/18 14:30 02/03/18 15:00 02/03/18 15:30 Temperature Pulse Rate 80 80 80 Respiratory Rate 13 17 25 H Blood Pressure 108/59 L 119/62 116/58 L Pulse Oximetry 97 100 97 02/03/18 16:00 02/03/18 16:30 02/03/18 17:00 Temperature Pulse Rate 80 79 79 Respiratory Rate 25 H 16 12 Blood Pressure 113/55 L 109/62 110/59 L Pulse Oximetry 99 96 99 02/03/18 17:31 02/03/18 18:00 02/03/18 18:30 Temperature Pulse Rate 80 80 80 Respiratory Rate 27 H 24 22 Blood Pressure 116/73 120/60 113/56 L Pulse Oximetry 84 L 88 L 97 02/03/18 20:00 02/03/18 21:02 02/03/18 22:00 Temperature 97.9 F Pulse Rate 80 80 Respiratory Rate 22 Blood Pressure 115/58 L Pulse Oximetry 96 97 02/04/18 00:00 02/04/18 02:00 02/04/18 04:00 Temperature 98.1 F 97.8 F Pulse Rate 80 80 80 Respiratory Rate 13 24 Blood Pressure 105/55 L 124/69 Pulse Oximetry 100 94 L 02/04/18 06:00 Temperature Pulse Rate 80 Respiratory Rate Blood Pressure Pulse Oximetry Intake & Output 02/03/18 02/04/18 02/04/18 18:59 06:59 18:59 Intake Total 400 / 400 Output Total 0 / 0 0 / 0 Balance 0 / 0 400 / 400 Weight 100 kg Intake: IV 100 / 100 Zosyn 2.25 GM Premix 50 ML @ 100 / 100 100 mls/hr IV.SIG Q12H [facility] Rx#: [id number] Oral 300 / 300 Output: Urine 0 / 0 0 / 0 Other: Date of Last Bowel Movement 02/01/18 02/01/18 # Bowel Movements 0 Result Diagrams: 02/04/18 13:12 02/04/18 13:12 Other Results: Laboratory Results - last 12 hr 02/03/18 02/04/18 02/04/18 21:34 03:49 07:52 PT 21.4 H INR 2.1 POC Glucose 442 H 443 H Imaging: Abdomen X-Ray 01/23/18 23:05 CONCLUSION: 1. Nonobstructive bowel gas pattern. Chest X-Ray 01/29/18 09:48 CONCLUSION: 1. Stable cardiomegaly and mild positive fluid balance. 2. No significant interval change. Chest CTA 01/30/18 00:00 CONCLUSION: 1. No evidence of pulmonary embolus. 2. Severe bilateral pulmonary parenchymal opacity with predominance at the dependent portions of the lungs. Difficult diagnosis includes pulmonary edema and infection. 3. Elongated lobulated nodular density in the right midlung following the major fissure likely represents loculated pleural effusion. 4. Enlarged pulmonary arteries suggesting pulmonary arterial hypertension. 5. Enlarged heart and small pericardial effusion. 6. Small left than right pleural effusions. 7. Mildly enlarged mediastinal lymph nodes, likely reactive. Objective Remarks: GENERAL: Patient is 72 yo on high flow oxygen. SKIN: Warm and dry. HEAD: Normocephalic. EYES: No scleral icterus. No injection or drainage. NECK: Supple, trachea midline. No JVD or lymphadenopathy. CARDIOVASCULAR: Regular rate and rhythm without murmurs, gallops, or rubs. RESPIRATORY: Breath sounds equal bilaterally. No accessory muscle use. Few coarse BS GASTROINTESTINAL: Abdomen soft, non-tender, nondistended. MUSCULOSKELETAL: No cyanosis, or edema. Neuro: Awake, alert Assessment and Plan - Assessment and Plan Plan: Active Problems: Acute respiratory failure CAD CHF Possible COPD Atrial Fibrillation with rapid ventricular response end-stage renal disease requiring hemodialysis Persistent hypotension secondary to poor cardiac output Neuro: Follow neuro status. Pain medications as needed. Monitor neuro status CV: Status post cardiac cath. Being followed by Dr. Weinberg. s/p ablation and micra placement 02/02/18 due to failure of medical management for rate control 2D echo with normal LV function however no comment on RVSP On Lipitor 80mg qhs, Coumadin Pulmo: Wean down oxygen as mari keep sats >92% CT chest with no evidence of PE however did show emphysematous changes bilateral lower lobe consolidation changes as well as fluid in interlobar fissure on the right. Pulmonary arteries are enlarged with probable pulmonary hypertension. Continue with Bronchodilators, decrease Solumederol 40mg Q12, On Symbicort. Check CXR GI/liver: P.o. diet as tolerated Renal/: Monitor renal function, I/O's, avoid nephrotoxins HD is following. For HD today ID: On Zosyn for empiric antibiotic coverage. Monitor for signs of infections ( Fever, WBC) Endocrine: Increase SSI to high sale for glycemic control, add Levemir 12u BID Heme: Monitor CBC, INR 2.1 today Prophylaxis: Pepcid/SCDs. Anticoagulation with Coumadin. Check Labs Level 3
[2018-02-04] MEDS ORDERED: Insulin Detemir Inj 1,000 UNIT/10 ML Vial SQ SCH (09:00)
[2018-02-04] MEDS: MethylPREDNISolone Sod Succinate Inj 40 MG/ML Vial IV.PUSH SCH ×2 (09:51→21:13)
--- NOTE | 2018-02-04 09:57 | XR ---
EXAM DATE: 02/04/2018 9:37 AM EDT AGE/SEX: 72 years / Male INDICATIONS: Shortness of breath. CLINICAL DATA: This is the patient's subsequent encounter. Patient reports that signs and symptoms h ave been present for 2 weeks and indicates a pain score of 0/10. MEDICAL/SURGICAL HISTORY: . Renal disease, end stage. Congestive heart failure. Diabetes. Dialy sis patient None. COMPARISON: [facility] [place], CHEST 1V SINGLE AP, 01/29/2018. . FINDINGS: The heart is enlarged. Patchy infiltrates are noted bilaterally consistent with moderate pulmonary ed quiana versus pneumonia. Clinical correlation is recommended. Tiny bilateral pleural effusions are noted . A right internal jugular tunneled dialysis catheter has its tips in the superior vena cava. There i s no pneumothorax. CONCLUSION: 1. Patchy infiltrates bilaterally consistent with moderate pulmonary edema versus pneumonia. Clinica l correlation is recommended. 2. Cardiomegaly. 3. Tiny bilateral pleural effusions. Electronically signed by: Andres Carmona MD 02/04/2018 9:55 AM EDT
--- NOTE | 2018-02-04 10:46 | P.PNNP ---
Subjective Interval history: Still on high flow. Seen during dialysis. <Jyoti Ceron - Last Filed: 02/04/18 10:42> Physical Exam Vital signs: Vital Signs 02/03/18 11:00 02/03/18 11:30 02/03/18 12:00 Temperature Pulse Rate 80 79 80 Respiratory Rate 21 23 32 H Blood Pressure 103/57 L 111/61 109/59 L Pulse Oximetry 94 L 94 L 93 L 02/03/18 12:30 02/03/18 13:01 02/03/18 13:30 Temperature Pulse Rate 79 80 80 Respiratory Rate 27 H 41 H 32 H Blood Pressure 98/57 L 126/70 111/59 L Pulse Oximetry 98 92 L 86 L 02/03/18 14:00 02/03/18 14:30 02/03/18 15:00 Temperature Pulse Rate 80 80 80 Respiratory Rate 12 13 17 Blood Pressure 101/58 L 108/59 L 119/62 Pulse Oximetry 96 97 100 02/03/18 15:30 02/03/18 16:00 02/03/18 16:30 Temperature Pulse Rate 80 80 79 Respiratory Rate 25 H 25 H 16 Blood Pressure 116/58 L 113/55 L 109/62 Pulse Oximetry 97 99 96 02/03/18 17:00 02/03/18 17:31 02/03/18 18:00 Temperature Pulse Rate 79 80 80 Respiratory Rate 12 27 H 24 Blood Pressure 110/59 L 116/73 120/60 Pulse Oximetry 99 84 L 88 L 02/03/18 18:30 02/03/18 19:00 02/03/18 19:34 Temperature Pulse Rate 80 80 80 Respiratory Rate 22 26 H 27 H Blood Pressure 113/56 L 119/59 L 109/58 L Pulse Oximetry 97 93 L 92 L 02/03/18 20:00 02/03/18 20:30 02/03/18 21:00 Temperature 97.9 F Pulse Rate 80 80 80 Respiratory Rate 22 22 26 H Blood Pressure 115/58 L 115/58 L 116/68 Pulse Oximetry 96 96 96 02/03/18 21:02 02/03/18 21:30 02/03/18 22:00 Temperature Pulse Rate 80 80 Respiratory Rate 19 25 H Blood Pressure 110/60 Pulse Oximetry 97 96 94 L 02/03/18 22:22 02/03/18 23:01 02/04/18 00:00 Temperature 98.1 F Pulse Rate 80 80 80 Respiratory Rate 18 23 13 Blood Pressure 114/60 111/60 105/55 L Pulse Oximetry 96 90 L 100 02/04/18 01:00 02/04/18 02:00 02/04/18 03:00 Temperature Pulse Rate 80 80 80 Respiratory Rate 11 L 19 10 L Blood Pressure 104/57 L 124/64 118/61 Pulse Oximetry 99 98 100 02/04/18 04:00 02/04/18 05:00 02/04/18 06:00 Temperature 97.8 F Pulse Rate 80 80 80 Respiratory Rate 24 16 14 Blood Pressure 124/69 113/60 108/57 L Pulse Oximetry 94 L 96 99 02/04/18 07:00 02/04/18 08:00 02/04/18 08:45 Temperature 97.6 F Pulse Rate 80 80 80 Respiratory Rate 12 16 30 H Blood Pressure 103/57 L 133/70 112/65 Pulse Oximetry 99 92 L 95 02/04/18 09:01 02/04/18 09:15 02/04/18 09:30 Temperature Pulse Rate 80 80 80 Respiratory Rate 27 H 23 26 H Blood Pressure 120/56 L 113/59 L 105/58 L Pulse Oximetry 86 L 91 L 88 L 02/04/18 10:00 Temperature Pulse Rate 80 Respiratory Rate Blood Pressure Pulse Oximetry Intake & Output 02/03/18 02/04/18 02/04/18 18:59 06:59 18:59 Intake Total 400 / 400 Output Total 0 / 0 0 / 0 Balance 0 / 0 400 / 400 Weight 100 kg Intake: IV 100 / 100 Zosyn 2.25 GM Premix 50 ML @ 100 / 100 100 mls/hr IV.SIG Q12H [facility] Rx#: [id number] Oral 300 / 300 Output: Urine 0 / 0 0 / 0 Other: Date of Last Bowel Movement 02/01/18 02/01/18 02/01/18 # Bowel Movements 0 - Constitutional no acute distress, average body habitus, chronically ill appearing, disheveled - Routine Neck Exam Present: supple, full ROM - Routine Respiratory Exam Present: accessory muscle use, rales, respiratory distress. Absent: CTA bilaterally - Routine Cardiovascular Exam Present: S1, S2 Comments: paced rhythm - Routine Abdominal Exam Present: soft, normoactive bowel sounds - Routine Extremities Exam Present: full ROM, normal capillary refill. Absent: edema - Routine Skin Exam Present: intact, warm - Routine Neurological Exam Present: alert, oriented X3 - Detailed Neurological Exam: Coma Scale Eye Opening: Spontaneous Verbal Response: Oriented Motor Response: Obey commands Olesya Coma Scale Total: 15 - Routine Psychiatric Exam Present: normal affect, normal thought process <Jyoti Ceron - Last Filed: 02/04/18 10:42> Vital signs: Vital Signs 02/03/18 18:00 02/03/18 18:30 02/03/18 19:00 Temperature Pulse Rate 80 80 80 Respiratory Rate 24 22 26 H Blood Pressure 120/60 113/56 L 119/59 L Pulse Oximetry 88 L 97 93 L 02/03/18 19:34 02/03/18 20:00 02/03/18 20:30 Temperature 97.9 F Pulse Rate 80 80 80 Respiratory Rate 27 H 22 22 Blood Pressure 109/58 L 115/58 L 115/58 L Pulse Oximetry 92 L 96 96 02/03/18 21:00 02/03/18 21:02 02/03/18 21:30 Temperature Pulse Rate 80 80 Respiratory Rate 26 H 19 Blood Pressure 116/68 110/60 Pulse Oximetry 96 97 96 02/03/18 22:00 02/03/18 22:22 02/03/18 23:01 Temperature Pulse Rate 80 80 80 Respiratory Rate 25 H 18 23 Blood Pressure 114/60 111/60 Pulse Oximetry 94 L 96 90 L 02/04/18 00:00 02/04/18 01:00 02/04/18 02:00 Temperature 98.1 F Pulse Rate 80 80 80 Respiratory Rate 13 11 L 19 Blood Pressure 105/55 L 104/57 L 124/64 Pulse Oximetry 100 99 98 02/04/18 03:00 02/04/18 04:00 02/04/18 05:00 Temperature 97.8 F Pulse Rate 80 80 80 Respiratory Rate 10 L 24 16 Blood Pressure 118/61 124/69 113/60 Pulse Oximetry 100 94 L 96 02/04/18 06:00 02/04/18 07:00 02/04/18 08:00 Temperature 97.6 F Pulse Rate 80 80 80 Respiratory Rate 14 12 16 Blood Pressure 108/57 L 103/57 L 133/70 Pulse Oximetry 99 99 92 L 02/04/18 08:45 08/08/18 09:01 02/04/18 09:15 Temperature Pulse Rate 80 80 80 Respiratory Rate 30 H 27 H 23 Blood Pressure 112/65 120/56 L 113/59 L Pulse Oximetry 95 86 L 91 L 02/04/18 09:30 02/04/18 09:46 02/04/18 10:00 Temperature Pulse Rate 80 80 80 Respiratory Rate 26 H 29 H 33 H Blood Pressure 105/58 L 107/64 105/53 L Pulse Oximetry 88 L 88 L 93 L 02/04/18 10:15 02/04/18 10:30 02/04/18 10:45 Temperature Pulse Rate 80 80 80 Respiratory Rate 17 23 18 Blood Pressure 92/50 L 93/51 L 92/51 L Pulse Oximetry 97 93 L 91 L 02/04/18 10:58 02/04/18 11:00 02/04/18 11:15 Temperature Pulse Rate 80 80 80 Respiratory Rate 18 21 13 Blood Pressure 95/54 L 95/49 L Pulse Oximetry 97 92 L 02/04/18 11:30 02/04/18 11:46 02/04/18 11:50 Temperature Pulse Rate 80 80 80 Respiratory Rate 20 19 15 Blood Pressure 91/46 L 79/50 L 99/55 L Pulse Oximetry 99 89 L 93 L 02/04/18 12:00 02/04/18 13:00 02/04/18 14:00 Temperature 98.0 F Pulse Rate 80 80 80 Respiratory Rate 23 17 24 Blood Pressure 98/60 L 95/53 L Pulse Oximetry 96 94 L 86 L 02/04/18 14:01 02/04/18 14:25 02/04/18 15:00 Temperature Pulse Rate 80 80 80 Respiratory Rate 21 18 19 Blood Pressure 124/56 L 111/58 L Pulse Oximetry 83 L 93 L 02/04/18 16:00 Temperature 98.1 F Pulse Rate 80 Respiratory Rate 20 Blood Pressure 123/60 Pulse Oximetry 97 Intake & Output 02/03/18 02/04/18 02/04/18 18:59 06:59 18:59 Intake Total 400 / 400 50 / 50 Output Total 0 / 0 0 / 0 5000 / 5000 Balance 0 / 0 400 / 400 -4950 / -4950 Weight 100 kg Intake: IV 100 / 100 50 / 50 Zosyn 2.25 GM Premix 50 ML @ 100 / 100 50 / 50 100 mls/hr IV.SIG Q12H [facility] Rx#: [id number] Oral 300 / 300 Output: Urine 0 / 0 0 / 0 Hemodialysis Amount 5000 / 5000 Other: Date of Last Bowel Movement 02/01/18 02/01/18 02/01/18 # Bowel Movements 0 <Eduardo Salvador - Last Filed: 02/04/18 17:40> Assessment and Plan - Assessment (1) ESRD (end stage renal disease) on dialysis Code(s): N18.6 - End stage renal disease; Z99.2 - Dependence on renal dialysis Status: Acute Plan: Continue HD MWF. Seen during dialysis today on a 2K, 350 BGFR, goal 5L. Monitor electrolytes intermittently. Avoid IVF administration. Protect left arm from procedures, has new AV access that is not mature. PermCath in place for HD use. Phosphorus level has been acceptable without binder therapy. Repeat phos level tomorrow. High protein low K diet with Supplements. Needs nutritional support. (2) Atrial fibrillation with RVR Code(s): I48.91 - Unspecified atrial fibrillation Status: Acute Plan: Improved, s/p AV gilbert ablation with pacemaker placement. On PO Amiodarone. Midodrine is ordered TID for hypotension. Cardiology following. Appreciate recommendations. (3) Hypoxia Code(s): R09.02 - Hypoxemia Status: Acute Plan: He is on high flow oxygen. Ween if able. Shortness of breath improved post ablation. We are aggressively removing fluid with HD. Pulmonary following. He was exposed to Agent [place] during [place]. 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 (4) CHF (congestive heart failure) Code(s): I50.9 - Heart failure, unspecified Status: Acute Qualifiers: Heart failure type: unspecified Heart failure chronicity: unspecified Qualified Code(s): I50.9 - Heart failure, unspecified Plan: Stable. EF noted to be around 60%. Fluid removal with dialysis. (5) Anemia in CKD (chronic kidney disease) Code(s): N18.9 - Chronic kidney disease, unspecified; D63.1 - Anemia in chronic kidney disease Status: Acute Plan: On Epogen with dialysis. Hemoglobin is acceptable. <Jyoti Ceron - Last Filed: 02/04/18 10:42> - Assessment (1) ESRD (end stage renal disease) on dialysis Code(s): N18.6 - End stage renal disease; Z99.2 - Dependence on renal dialysis Status: Acute (2) Atrial fibrillation with RVR Code(s): I48.91 - Unspecified atrial fibrillation Status: Acute (3) Hypoxia Code(s): R09.02 - Hypoxemia Status: Acute (4) CHF (congestive heart failure) Code(s): I50.9 - Heart failure, unspecified Status: Acute Qualifiers: Heart failure type: unspecified Heart failure chronicity: unspecified Qualified Code(s): I50.9 - Heart failure, unspecified (5) Anemia in CKD (chronic kidney disease) Code(s): N18.9 - Chronic kidney disease, unspecified; D63.1 - Anemia in chronic kidney disease Status: Acute - Attending Attestation patient was seen and examined. Agree with above assessment and plan. 5 liters removed in dialysis today. Hypoxia persists. Will attempt daily dialysis? to see if there will be any improvement. <Eduardo Salvador - Last Filed: 02/04/18 17:40>
[2018-02-04] MEDS ORDERED: Insulin NovoLIN Regular Correctional Sugar Inj SQ SCH (12:00)
[2018-02-04 13:49] LABS: Baso % (Auto) 0.1 % (0.0-2.0); Hematocrit 34.3 % (39.0-51.0); Lymph # (Auto) 0.1 th/mm3 (1.0-4.8); Lymph % (Auto) 0.9 % (9.0-44.0); Mean Corpuscular HGB Conc 32.2 % (32.0-36.0); Mean Corpuscular Hemoglobin 28.3 pg (27.0-34.0); Mean Platelet Volume 9.2 fL (7.0-11.0); Mono # (Auto) 0.1 th/mm3 (0.0-0.9); Mono % (Auto) 1.1 % (0.0-8.0); Neut # (Auto) 10.3 th/mm3 (1.8-7.7); Neut % (Auto) 97.9 % (16.0-70.0); Platelet Count 161 th/mm3 (150-450); Red Blood Count 3.89 mil/mm3 (4.50-5.90); White Blood Count 10.5 th/mm3 (4.0-11.0)
[2018-02-04 14:20] LABS: Calcium 8.5 mg/dL (8.5-10.1); Carbon Dioxide 27.2 meq/L (21.0-32.0)
--- NOTE | 2018-02-04 15:51 | P.PNCA ---
Subjective Interval history: alert in nad Physical Exam Vital signs: Vital Signs 02/03/18 16:00 02/03/18 16:30 02/03/18 17:00 Temperature Pulse Rate 80 79 79 Respiratory Rate 25 H 16 12 Blood Pressure 113/55 L 109/62 110/59 L Pulse Oximetry 99 96 99 02/03/18 17:31 02/03/18 18:00 02/03/18 18:30 Temperature Pulse Rate 80 80 80 Respiratory Rate 27 H 24 22 Blood Pressure 116/73 120/60 113/56 L Pulse Oximetry 84 L 88 L 97 02/03/18 19:00 02/03/18 19:34 02/03/18 20:00 Temperature 97.9 F Pulse Rate 80 80 80 Respiratory Rate 26 H 27 H 22 Blood Pressure 119/59 L 109/58 L 115/58 L Pulse Oximetry 93 L 92 L 96 02/03/18 20:30 02/03/18 21:00 02/03/18 21:02 Temperature Pulse Rate 80 80 Respiratory Rate 22 26 H Blood Pressure 115/58 L 116/68 Pulse Oximetry 96 96 97 02/03/18 21:30 02/03/18 22:00 02/03/18 22:22 Temperature Pulse Rate 80 80 80 Respiratory Rate 19 25 H 18 Blood Pressure 110/60 114/60 Pulse Oximetry 96 94 L 96 02/03/18 23:01 02/04/18 00:00 02/04/18 01:00 Temperature 98.1 F Pulse Rate 80 80 80 Respiratory Rate 23 13 11 L Blood Pressure 111/60 105/55 L 104/57 L Pulse Oximetry 90 L 100 99 02/04/18 02:00 02/04/18 03:00 02/04/18 04:00 Temperature 97.8 F Pulse Rate 80 80 80 Respiratory Rate 19 10 L 24 Blood Pressure 124/64 118/61 124/69 Pulse Oximetry 98 100 94 L 02/04/18 05:00 02/04/18 06:00 02/04/18 07:00 Temperature Pulse Rate 80 80 80 Respiratory Rate 16 14 12 Blood Pressure 113/60 108/57 L 103/57 L Pulse Oximetry 96 99 99 02/04/18 08:00 02/04/18 08:45 02/04/18 09:01 Temperature 97.6 F Pulse Rate 80 80 80 Respiratory Rate 16 30 H 27 H Blood Pressure 133/70 112/65 120/56 L Pulse Oximetry 92 L 95 86 L 02/04/18 09:15 02/04/18 09:30 02/04/18 09:46 Temperature Pulse Rate 80 80 80 Respiratory Rate 23 26 H 29 H Blood Pressure 113/59 L 105/58 L 107/64 Pulse Oximetry 91 L 88 L 88 L 02/04/18 10:00 02/04/18 10:15 02/04/18 10:30 Temperature Pulse Rate 80 80 80 Respiratory Rate 33 H 17 23 Blood Pressure 105/53 L 92/50 L 93/51 L Pulse Oximetry 93 L 97 93 L 02/04/18 10:45 02/04/18 10:58 02/04/18 11:00 Temperature Pulse Rate 80 80 80 Respiratory Rate 18 18 21 Blood Pressure 92/51 L 95/54 L Pulse Oximetry 91 L 97 02/04/18 11:15 02/04/18 11:30 02/04/18 11:46 Temperature Pulse Rate 80 80 80 Respiratory Rate 13 20 19 Blood Pressure 95/49 L 91/46 L 79/50 L Pulse Oximetry 92 L 99 89 L 02/04/18 11:50 02/04/18 12:00 02/04/18 14:00 Temperature 98.0 F Pulse Rate 80 80 80 Respiratory Rate 15 23 Blood Pressure 99/55 L 98/60 L Pulse Oximetry 93 L 96 02/04/18 14:25 Temperature Pulse Rate 80 Respiratory Rate 18 Blood Pressure Pulse Oximetry Intake & Output 02/03/18 02/04/18 02/04/18 18:59 06:59 18:59 Intake Total 400 / 400 Output Total 0 / 0 0 / 0 5000 / 5000 Balance 0 / 0 400 / 400 -5000 / -5000 Weight 100 kg Intake: IV 100 / 100 Zosyn 2.25 GM Premix 50 ML @ 100 / 100 100 mls/hr IV.SIG Q12H [facility] Rx#: [id number] Oral 300 / 300 Output: Urine 0 / 0 0 / 0 Hemodialysis Amount 5000 / 5000 Other: Date of Last Bowel Movement 02/01/18 02/01/18 02/01/18 # Bowel Movements 0 Assessment and Plan - Assessment (1) Atrial fibrillation with rapid ventricular response Code(s): I48.91 - Unspecified atrial fibrillation Status: Acute (2) CHF (congestive heart failure) Code(s): I50.9 - Heart failure, unspecified Status: Acute (3) Chronic kidney disease with end stage renal failure on dialysis Code(s): N18.6 - End stage renal disease; Z99.2 - Dependence on renal dialysis Status: Acute (4) Atrial fibrillation with RVR Code(s): I48.91 - Unspecified atrial fibrillation Status: Acute (5) ESRD (end stage renal disease) on dialysis Code(s): N18.6 - End stage renal disease; Z99.2 - Dependence on renal dialysis Status: Acute - Plan 1.) Afib with rvr - s/p ablation and micra placement 02/02/18 due to failure of medical management for rate control, d/w patient 2.) CAD - continue, lipitor, restart coumadin at 3 mg qd, has hemoptyis, f/u inr and cbc in am (2) CHF (congestive heart failure) Qualifiers: Heart failure type: unspecified Heart failure chronicity: unspecified Qualified Code(s): I50.9 - Heart failure, unspecified
--- NOTE | 2018-02-04 16:40 | P.PN ---
Subjective Interval history: alert no distress sat 96% on high flow NC Physical Exam Vital signs: Vital Signs 02/03/18 17:00 02/03/18 17:31 02/03/18 18:00 Temperature Pulse Rate 79 80 80 Respiratory Rate 12 27 H 24 Blood Pressure 110/59 L 116/73 120/60 Pulse Oximetry 99 84 L 88 L 02/03/18 18:30 02/03/18 19:00 02/03/18 19:34 Temperature Pulse Rate 80 80 80 Respiratory Rate 22 26 H 27 H Blood Pressure 113/56 L 119/59 L 109/58 L Pulse Oximetry 97 93 L 92 L 02/03/18 20:00 02/03/18 20:30 02/03/18 21:00 Temperature 97.9 F Pulse Rate 80 80 80 Respiratory Rate 22 22 26 H Blood Pressure 115/58 L 115/58 L 116/68 Pulse Oximetry 96 96 96 02/03/18 21:02 02/03/18 21:30 02/03/18 22:00 Temperature Pulse Rate 80 80 Respiratory Rate 19 25 H Blood Pressure 110/60 Pulse Oximetry 97 96 94 L 02/03/18 22:22 02/03/18 23:01 02/04/18 00:00 Temperature 98.1 F Pulse Rate 80 80 80 Respiratory Rate 18 23 13 Blood Pressure 114/60 111/60 105/55 L Pulse Oximetry 96 90 L 100 02/04/18 01:00 02/04/18 02:00 02/04/18 03:00 Temperature Pulse Rate 80 80 80 Respiratory Rate 11 L 19 10 L Blood Pressure 104/57 L 124/64 118/61 Pulse Oximetry 99 98 100 02/04/18 04:00 02/04/18 05:00 02/04/18 06:00 Temperature 97.8 F Pulse Rate 80 80 80 Respiratory Rate 24 16 14 Blood Pressure 124/69 113/60 108/57 L Pulse Oximetry 94 L 96 99 02/04/18 07:00 02/04/18 08:00 02/04/18 08:45 Temperature 97.6 F Pulse Rate 80 80 80 Respiratory Rate 12 16 30 H Blood Pressure 103/57 L 133/70 112/65 Pulse Oximetry 99 92 L 95 02/04/18 09:01 02/04/18 09:15 02/04/18 09:30 Temperature Pulse Rate 80 80 80 Respiratory Rate 27 H 23 26 H Blood Pressure 120/56 L 113/59 L 105/58 L Pulse Oximetry 86 L 91 L 88 L 02/04/18 09:46 02/04/18 10:00 02/04/18 10:15 Temperature Pulse Rate 80 80 80 Respiratory Rate 29 H 33 H 17 Blood Pressure 107/64 105/53 L 92/50 L Pulse Oximetry 88 L 93 L 97 02/04/18 10:30 02/04/18 10:45 02/04/18 10:58 Temperature Pulse Rate 80 80 80 Respiratory Rate 23 18 18 Blood Pressure 93/51 L 92/51 L Pulse Oximetry 93 L 91 L 02/04/18 11:00 02/04/18 11:15 02/04/18 11:30 Temperature Pulse Rate 80 80 80 Respiratory Rate 21 13 20 Blood Pressure 95/54 L 95/49 L 91/46 L Pulse Oximetry 97 92 L 99 02/04/18 11:46 02/04/18 11:50 02/04/18 12:00 Temperature 98.0 F Pulse Rate 80 80 80 Respiratory Rate 19 15 23 Blood Pressure 79/50 L 99/55 L 98/60 L Pulse Oximetry 89 L 93 L 96 02/04/18 14:00 02/04/18 14:25 Temperature Pulse Rate 80 80 Respiratory Rate 18 Blood Pressure Pulse Oximetry Intake & Output 02/03/18 02/04/18 02/04/18 18:59 06:59 18:59 Intake Total 400 / 400 Output Total 0 / 0 0 / 0 5000 / 5000 Balance 0 / 0 400 / 400 -5000 / -5000 Weight 100 kg Intake: IV 100 / 100 Zosyn 2.25 GM Premix 50 ML @ 100 / 100 100 mls/hr IV.SIG Q12H [facility] Rx#: [id number] Oral 300 / 300 Output: Urine 0 / 0 0 / 0 Hemodialysis Amount 5000 / 5000 Other: Date of Last Bowel Movement 02/01/18 02/01/18 02/01/18 # Bowel Movements 0 Narrative: GENERAL: In mild resp. acute distress. HEENT: NC, AT. CARDIOVASCULAR: Irregularly irregular rhythm. RESPIRATORY: No accessory muscle use. Crackles at the bases. GASTROINTESTINAL: Abdomen soft, non-tender, nondistended. Hepatic and splenic margins not palpable. Decreased bowel sounds. MUSCULOSKELETAL: Extremities without clubbing, cyanosis, mild edema. No obvious deformities. Cath site without hematoma. NEUROLOGICAL: Awake and alert. No obvious cranial nerve deficits. Results - Labs CBC & Chem 7: 02/04/18 13:12 02/04/18 13:12 Laboratory Results - last 24 hr 02/03/18 02/03/18 02/04/18 17:51 21:34 03:49 WBC RBC Hgb Hct MCV MCH MCHC RDW Plt Count MPV Neut % (Auto) Lymph % (Auto) [place] % (Auto) Eos % (Auto) Baso % (Auto) Neut # (Auto) Lymph # (Auto) [place] # (Auto) Eos # (Auto) Baso # (Auto) WBC Differential Differential Comment PT 21.4 H INR 2.1 Sodium Potassium Chloride Carbon Dioxide Anion Gap BUN Creatinine Estimated GFR POC Glucose 482 H* 442 H Random Glucose Calcium Phosphorus 02/04/18 02/04/18 02/04/18 07:52 11:20 13:12 WBC 10.5 RBC 3.89 L Hgb 11.0 L Hct 34.3 L MCV 88.0 MCH 28.3 MCHC 32.2 RDW 17.0 Plt Count 161 MPV 9.2 Neut % (Auto) 97.9 H Lymph % (Auto) 0.9 L [place] % (Auto) 1.1 Eos % (Auto) 0.0 Baso % (Auto) 0.1 Neut # (Auto) 10.3 H Lymph # (Auto) 0.1 L [place] # (Auto) 0.1 Eos # (Auto) 0.0 Baso # (Auto) 0.0 WBC Differential . Differential Comment Auto diff final PT INR Sodium Potassium Chloride Carbon Dioxide Anion Gap BUN Creatinine Estimated GFR POC Glucose 443 H 282 H Random Glucose Calcium Phosphorus 02/04/18 02/04/18 13:12 13:12 WBC RBC Hgb Hct MCV MCH MCHC RDW Plt Count MPV Neut % (Auto) Lymph % (Auto) [place] % (Auto) Eos % (Auto) Baso % (Auto) Neut # (Auto) Lymph # (Auto) [place] # (Auto) Eos # (Auto) Baso # (Auto) WBC Differential Differential Comment PT INR Sodium 136 Potassium 4.0 Chloride 97 L Carbon Dioxide 27.2 Anion Gap 12 BUN 46 H Creatinine 5.26 H Estimated GFR 11 L POC Glucose Random Glucose 326 H Calcium 8.5 Phosphorus 4.1 - Imaging Impressions Chest X-Ray 02/04/18 00:00 CONCLUSION: 1. Patchy infiltrates bilaterally consistent with moderate pulmonary edema versus pneumonia. Clinical correlation is recommended. 2. Cardiomegaly. 3. Tiny bilateral pleural effusions. Assessment and Plan - Plan RESPIRATORY FAILURE RENAL FAILURE ? COPD Chest pain CHF POST AV NODE ABLATION PLAN O2 NEEDED BRONCHODILATOR THERAPY INCREASE ACTIVITY taper steroids ECHOCARDIOGRAM IF NOT DONE TOASSESS SIGNIFICANCE OF PAH
[2018-02-04] MEDS: Morphine Inj 4 MG/ML Vial IV.PUSH PRN ×2 (17:22→21:30)
[2018-02-04 20:38] LABS: Hematocrit 33.9 % (39.0-51.0); Hemoglobin 10.6 gm/dL (13.0-17.0); Mean Corpuscular HGB Conc 31.2 % (32.0-36.0); Mean Corpuscular Hemoglobin 27.7 pg (27.0-34.0); Mean Corpuscular Volume 88.7 fL (80.0-100.0); Platelet Count 164 th/mm3 (150-450); Red Blood Count 3.82 mil/mm3 (4.50-5.90); Red Cell Distribution Width 17.6 % (11.6-17.2); White Blood Count 12.3 th/mm3 (4.0-11.0)
[2018-02-04] MEDS: Insulin Detemir Inj 1,000 UNIT/10 ML Vial SQ SCH (21:13)
[2018-02-05] MEDS: Insulin NovoLIN Regular Correctional Sugar Inj SQ SCH ×3 (06:13→17:29)
[2018-02-05 07:47] LABS: Baso % (Auto) 0.1 % (0.0-2.0); Hematocrit 33.3 % (39.0-51.0); Hemoglobin 10.9 gm/dL (13.0-17.0); Lymph # (Auto) 0.3 th/mm3 (1.0-4.8); Mean Corpuscular HGB Conc 32.7 % (32.0-36.0); Mean Corpuscular Hemoglobin 28.3 pg (27.0-34.0); Mean Corpuscular Volume 86.6 fL (80.0-100.0); Mean Platelet Volume 9.3 fL (7.0-11.0); Mono # (Auto) 0.7 th/mm3 (0.0-0.9); Mono % (Auto) 4.9 % (0.0-8.0); Platelet Count 155 th/mm3 (150-450); Red Blood Count 3.85 mil/mm3 (4.50-5.90); Red Cell Distribution Width 17.5 % (11.6-17.2)
[2018-02-05 07:49] LABS: Prothrombin Time 20.7 sec (9.8-11.6)
--- NOTE | 2018-02-05 07:49 | P.PNCC ---
Subjective Subjective Remarks/Hospital Course: This is a 72yM with history of ESRD on HD who was recently admitted last month for supraventricular tachycardia. It appears from the records that normal sinus rhythm was restored prior to discharge home. He re-presented to the hospital with atrial fibrillation with rapid ventricular response which has been poorly responsive to esmolol infusion. It is noted that there is still a shortage of diltiazem infusions, so none is available to place the patient on. Dr. Waters with cardiology was consulted, as was Dr. Weinberg. The patient has also had hypotension during this hospital stay with most blood pressure readings between 80-100 systolic. This morning, Bystolic was started and was given together with amiodarone 400mg and metoprolol 25mg po. Approximately 2 hours after this, his blood pressure dropped into the 60s and 70s systolic. I was consulted by Dr. Wilcox to evaluate and manage his hemodynamics in the setting of poorly-controlled atrial fibrillation and hypotension. The patient does complain of light-headedness and a little chest discomfort which is new since his blood pressure has dropped into the 70s. He denies any other complaints and tolerated breakfast this AM. ROS otherwise negative. troponins have been serially negative this admission. I performed bedside critical care echocardiography and compared this to images obtained from last hospital admission on 11/2017. Given the poorly controlled nature of the patient's rate, wall motion and accurate ejection fraction are difficult to assess with accuracy. It does appear that the patient has relatively preserved EF and at most only mildly depressed LVEF. Aortic valve is sclerotic but appears unchanged from prior echo which calculated the valve area at ~2cm. no pericardial effusion. IVC is dilated around 2cm without respiratory variation. heart rate on my evaluation is 121. 8/2: Critical care reconsulted by Dr. Weinberg for worsening respiratory failure. Patient dropped O2 sats to 84% on 6 L nasal cannula. When I evaluated patient he was resting in bed. Placed him on high flow nasal cannula 30 L/min 60% FiO2 with which his O2 sats came up to 90%. 01/30: Remains on high flow nasal cannula. CT chest negative for PE shows consolidation bilateral lower lobes and a loculated effusion on the right. Defer to pulmonary regarding further recommendations. 01/31: Remains on high flow nasal cannula. Being dialyzed currently. On 30 L/ min 60% FiO2. O2 sats 96%. Feels that he is breathing a little better. 02/01, 02/02: On high flow nasal cannula at 20 L/min 50% FiO2. Shortness of breath gradually improving. 02/03: On high flow nasal cannula 20 L/min 60% FiO2. Underwent mitral implantation and AV gilbert ablation yesterday by Dr. Weinberg. Sitting up in bed today. Appears comfortable not in any acute distress. 02/04 Patient 02/04 Patient is awake and alert on high flow oxygen 25L with 70% FIO2> Afebrile. For HD today 02/05 No events overnight. s/p HD yesterday with removal 5L. Afebrile. On 25L with FIO2 down to 50% Objective Vital Signs / I&O: Vital Signs 02/04/18 08:00 02/04/18 08:45 02/04/18 09:01 Temperature 97.6 F Pulse Rate 80 80 80 Respiratory Rate 16 30 H 27 H Blood Pressure 133/70 112/65 120/56 L Pulse Oximetry 92 L 95 86 L 02/04/18 09:15 02/04/18 09:30 02/04/18 09:46 Temperature Pulse Rate 80 80 80 Respiratory Rate 23 26 H 29 H Blood Pressure 113/59 L 105/58 L 107/64 Pulse Oximetry 91 L 88 L 88 L 02/04/18 10:00 02/04/18 10:15 02/04/18 10:30 Temperature Pulse Rate 80 80 80 Respiratory Rate 33 H 17 23 Blood Pressure 105/53 L 92/50 L 93/51 L Pulse Oximetry 93 L 97 93 L 02/04/18 10:45 02/04/18 10:58 02/04/18 11:00 Temperature Pulse Rate 80 80 80 Respiratory Rate 18 18 21 Blood Pressure 92/51 L 95/54 L Pulse Oximetry 91 L 97 02/04/18 11:15 02/04/18 11:30 02/04/18 11:46 Temperature Pulse Rate 80 80 80 Respiratory Rate 13 20 19 Blood Pressure 95/49 L 91/46 L 79/50 L Pulse Oximetry 92 L 99 89 L 02/04/18 11:50 02/04/18 12:00 02/04/18 13:00 Temperature 98.0 F Pulse Rate 80 80 80 Respiratory Rate 15 23 17 Blood Pressure 99/55 L 98/60 L 95/53 L Pulse Oximetry 93 L 96 94 L 02/04/18 14:00 02/04/18 14:01 02/04/18 14:25 Temperature Pulse Rate 80 80 80 Respiratory Rate 24 21 18 Blood Pressure 124/56 L Pulse Oximetry 86 L 83 L 02/04/18 15:00 02/04/18 16:00 02/04/18 18:00 Temperature 98.1 F Pulse Rate 80 80 80 Respiratory Rate 19 20 Blood Pressure 111/58 L 123/60 Pulse Oximetry 93 L 97 02/04/18 19:00 02/04/18 19:46 02/04/18 20:00 Temperature 97.8 F Pulse Rate 80 80 Respiratory Rate 24 20 Blood Pressure 111/57 L Pulse Oximetry 95 95 02/04/18 22:00 02/04/18 23:26 02/05/18 00:00 Temperature 97.9 F Pulse Rate 80 80 80 Respiratory Rate 24 17 Blood Pressure 110/59 L Pulse Oximetry 96 02/05/18 02:00 02/05/18 02:18 02/05/18 03:34 Temperature Pulse Rate 80 80 Respiratory Rate 20 Blood Pressure Pulse Oximetry 97 02/05/18 04:00 02/05/18 06:00 02/05/18 07:45 Temperature 97.9 F Pulse Rate 80 80 80 Respiratory Rate 15 20 Blood Pressure 115/60 Pulse Oximetry 92 L Intake & Output 02/04/18 02/05/18 02/05/18 18:59 06:59 18:59 Intake Total 1550 / 1550 770 / 770 Output Total 5000 / 5000 0 / 0 Balance -3450 / -3450 770 / 770 Weight 92.5 kg Intake: IV 50 / 50 50 / 50 Zosyn 2.25 GM Premix 50 ML @ 50 / 50 50 / 50 100 mls/hr IV.SIG Q12H [facility] Rx#: [id number] Oral 1500 / 1500 720 / 720 Output: Urine 0 / 0 Hemodialysis Amount 5000 / 5000 Other: Date of Last Bowel Movement 02/04/18 02/05/18 # Bowel Movements 1 Result Diagrams: 02/04/18 20:19 02/04/18 13:12 Other Results: Laboratory Results - last 12 hr 02/04/18 02/04/18 02/05/18 20:19 23:42 06:12 WBC 12.3 H RBC 3.82 L Hgb 10.6 L Hct 33.9 L MCV 88.7 MCH 27.7 MCHC 31.2 L RDW 17.6 H Plt Count 164 MPV 9.0 POC Glucose 229 H 181 H Imaging: Abdomen X-Ray 01/23/18 23:05 CONCLUSION: 1. Nonobstructive bowel gas pattern. Chest CTA 01/30/18 00:00 CONCLUSION: 1. No evidence of pulmonary embolus. 2. Severe bilateral pulmonary parenchymal opacity with predominance at the dependent portions of the lungs. Difficult diagnosis includes pulmonary edema and infection. 3. Elongated lobulated nodular density in the right midlung following the major fissure likely represents loculated pleural effusion. 4. Enlarged pulmonary arteries suggesting pulmonary arterial hypertension. 5. Enlarged heart and small pericardial effusion. 6. Small left than right pleural effusions. 7. Mildly enlarged mediastinal lymph nodes, likely reactive. Chest X-Ray 02/04/18 00:00 CONCLUSION: 1. Patchy infiltrates bilaterally consistent with moderate pulmonary edema versus pneumonia. Clinical correlation is recommended. 2. Cardiomegaly. 3. Tiny bilateral pleural effusions. Objective Remarks: GENERAL: Patient is 72 yo on high flow oxygen. SKIN: Warm and dry. HEAD: Normocephalic. EYES: No scleral icterus. No injection or drainage. NECK: Supple, trachea midline. No JVD or lymphadenopathy. CARDIOVASCULAR: Regular rate and rhythm without murmurs, gallops, or rubs. RESPIRATORY: Breath sounds equal bilaterally. No accessory muscle use. Few coarse BS GASTROINTESTINAL: Abdomen soft, non-tender, nondistended. MUSCULOSKELETAL: No cyanosis, or edema. Neuro: Awake, alert Assessment and Plan - Assessment and Plan Plan: Active Problems: Acute respiratory failure CAD CHF Possible COPD Atrial Fibrillation with rapid ventricular response end-stage renal disease requiring hemodialysis Persistent hypotension secondary to poor cardiac output Neuro: Follow neuro status. Pain medications as needed. Monitor neuro status CV: Monitor HR and BP keep MAP>65mmHg Status post cardiac cath. Being followed by Dr. Weinberg. s/p ablation and micra placement 02/02/18 due to failure of medical management for rate control 2D echo with normal LV function however no comment on RVSP On Lipitor 80mg qhs, Coumadin Pulmo: Wean down oxygen as mari keep sats >92% CT chest with no evidence of PE however did show emphysematous changes bilateral lower lobe consolidation changes as well as fluid in interlobar fissure on the right. Pulmonary arteries are enlarged with probable pulmonary hypertension. Continue with Bronchodilators, Solumederol 40mg Q12, On Symbicort. GI/liver: P.o. diet as tolerated Renal/: Monitor renal function, I/O's, avoid nephrotoxins Renal is following. s/p HD 02/04 with removal 5L. ID: On Zosyn for empiric antibiotic coverage. Monitor for signs of infections ( Fever, WBC) Endocrine: SSI ( high sale) for glycemic control, Levemir 12u BID Heme: Monitor CBC, Coags- INR 2.1 02/04 Prophylaxis: Pepcid/SCDs. Anticoagulation with Coumadin. Level 3
[2018-02-05 08:12] LABS: Calcium 9.4 mg/dL (8.5-10.1); Carbon Dioxide 29.7 meq/L (21.0-32.0); Potassium 4.8 meq/L (3.5-5.1)
[2018-02-05] MEDS: Insulin Detemir Inj 1,000 UNIT/10 ML Vial SQ SCH ×2 (08:39→20:54)
[2018-02-05] MEDS: Senna/Docusate Sodium 8.6/50 MG Tablet PO SCH ×2 (08:40→20:53)
[2018-02-05] MEDS: Budesonide-Formoterol 160/4.5 MCG 6 GM Inhaler INH SCH ×2 (08:40→20:53)
[2018-02-05] MEDS: MethylPREDNISolone Sod Succinate Inj 40 MG/ML Vial IV.PUSH SCH ×2 (11:46→21:04)
[2018-02-05] MEDS: Piperacil/Tazo 2.25 GM Premix 50 ML IV.SIG SCH (11:47)
--- NOTE | 2018-02-05 12:28 | P.PNNP ---
Subjective Interval history: Respirations unlabored. Still on high flow. 5L UF yesterday with HD. <Jyoti Ceron - Last Filed: 02/05/18 12:25> Physical Exam Vital signs: Vital Signs 02/04/18 13:00 02/04/18 14:00 02/04/18 14:01 Temperature Pulse Rate 80 80 80 Respiratory Rate 17 24 21 Blood Pressure 95/53 L 124/56 L Pulse Oximetry 94 L 86 L 83 L 02/04/18 14:25 02/04/18 15:00 02/04/18 16:00 Temperature 98.1 F Pulse Rate 80 80 80 Respiratory Rate 18 19 20 Blood Pressure 111/58 L 123/60 Pulse Oximetry 93 L 97 02/04/18 17:00 02/04/18 18:00 02/04/18 19:00 Temperature Pulse Rate 80 80 Respiratory Rate 24 23 Blood Pressure 120/90 102/57 L Pulse Oximetry 93 L 88 L 95 02/04/18 19:01 02/04/18 19:46 02/04/18 20:00 Temperature 97.8 F Pulse Rate 80 80 80 Respiratory Rate 26 H 24 20 Blood Pressure 106/58 L 111/57 L Pulse Oximetry 78 L 95 02/04/18 21:01 02/04/18 22:00 02/04/18 23:00 Temperature Pulse Rate 80 80 80 Respiratory Rate 27 H 20 10 L Blood Pressure 119/63 118/59 L 120/62 Pulse Oximetry 93 L 89 L 100 02/04/18 23:26 02/05/18 00:00 02/05/18 01:00 Temperature 97.9 F Pulse Rate 80 80 80 Respiratory Rate 24 17 12 Blood Pressure 110/59 L 110/55 L Pulse Oximetry 93 L 96 02/05/18 02:00 02/05/18 02:10 02/05/18 02:18 Temperature Pulse Rate 80 80 Respiratory Rate 28 H 25 H Blood Pressure 136/74 Pulse Oximetry 82 L 94 L 97 02/05/18 03:00 02/05/18 03:34 02/05/18 04:00 Temperature 97.9 F Pulse Rate 80 80 80 Respiratory Rate 10 L 20 15 Blood Pressure 118/59 L 115/60 Pulse Oximetry 96 88 L 02/05/18 05:01 02/05/18 06:00 02/05/18 07:00 Temperature Pulse Rate 80 80 80 Respiratory Rate 20 25 H 21 Blood Pressure 120/63 124/65 124/62 Pulse Oximetry 88 L 89 L 92 L 02/05/18 07:45 02/05/18 08:00 02/05/18 08:01 Temperature 98.1 F Pulse Rate 80 80 80 Respiratory Rate 20 27 H 21 Blood Pressure 120/59 L Pulse Oximetry 92 L 92 L 94 L 02/05/18 09:00 02/05/18 10:00 02/05/18 11:00 Temperature Pulse Rate 80 80 79 Respiratory Rate 18 19 26 H Blood Pressure 116/57 L 103/51 L 101/67 Pulse Oximetry 91 L 94 L 90 L 02/05/18 12:00 Temperature 97.7 F Pulse Rate 79 Respiratory Rate 22 Blood Pressure 129/61 Pulse Oximetry 89 L Intake & Output 02/04/18 02/05/18 02/05/18 18:59 06:59 18:59 Intake Total 1550 / 1550 770 / 770 Output Total 5000 / 5000 0 / 0 Balance -3450 / -3450 770 / 770 Weight 92.5 kg Intake: IV 50 / 50 50 / 50 Zosyn 2.25 GM Premix 50 ML @ 50 / 50 50 / 50 100 mls/hr IV.SIG Q12H [facility] Rx#: [id number] Oral 1500 / 1500 720 / 720 Output: Urine 0 / 0 Hemodialysis Amount 5000 / 5000 Other: Date of Last Bowel Movement 02/04/18 02/05/18 02/05/18 # Bowel Movements 1 - Constitutional no acute distress, chronically ill appearing, cooperative - Routine HEENT Exam Head: Present: normocephalic ENT: Present: mucous membranes dry - Routine Neck Exam Present: supple, full ROM. Absent: JVD - Routine Respiratory Exam Present: decreased breath sounds, rales. Absent: accessory muscle use - Routine Cardiovascular Exam Present: RRR, S1, S2 Comments: paced - Routine Abdominal Exam Present: soft, normoactive bowel sounds - Routine Extremities Exam Present: pulses intact, AV fistula, vascular access. Absent: edema - Routine Skin Exam Present: intact, dry, warm - Routine Neurological Exam Present: alert, oriented X3, CN II-XII intact, moving all extremities - Detailed Neurological Exam: Coma Scale Eye Opening: Spontaneous Verbal Response: Oriented Motor Response: Obey commands O[place] Coma Scale Total: 15 - Routine Psychiatric Exam Present: normal affect, normal thought process <Jyoti Ceron - Last Filed: 02/05/18 12:25> Vital signs: Vital Signs 02/04/18 17:00 02/04/18 18:00 02/04/18 19:00 Temperature Pulse Rate 80 80 Respiratory Rate 24 23 Blood Pressure 120/90 102/57 L Pulse Oximetry 93 L 88 L 95 02/04/18 19:01 02/04/18 19:46 02/04/18 20:00 Temperature 97.8 F Pulse Rate 80 80 80 Respiratory Rate 26 H 24 20 Blood Pressure 106/58 L 111/57 L Pulse Oximetry 78 L 95 02/04/18 21:01 02/04/18 22:00 02/04/18 23:00 Temperature Pulse Rate 80 80 80 Respiratory Rate 27 H 20 10 L Blood Pressure 119/63 118/59 L 120/62 Pulse Oximetry 93 L 89 L 100 02/04/18 23:26 02/05/18 00:00 02/05/18 01:00 Temperature 97.9 F Pulse Rate 80 80 80 Respiratory Rate 24 17 12 Blood Pressure 110/59 L 110/55 L Pulse Oximetry 93 L 96 02/05/18 02:00 02/05/18 02:10 02/05/18 02:18 Temperature Pulse Rate 80 80 Respiratory Rate 28 H 25 H Blood Pressure 136/74 Pulse Oximetry 82 L 94 L 97 02/05/18 03:00 02/05/18 03:34 02/05/18 04:00 Temperature 97.9 F Pulse Rate 80 80 80 Respiratory Rate 10 L 20 15 Blood Pressure 118/59 L 115/60 Pulse Oximetry 96 88 L 02/05/18 05:01 02/05/18 06:00 02/05/18 07:00 Temperature Pulse Rate 80 80 80 Respiratory Rate 20 25 H 21 Blood Pressure 120/63 124/65 124/62 Pulse Oximetry 88 L 89 L 92 L 02/05/18 07:45 02/05/18 08:00 02/05/18 08:01 Temperature 98.1 F Pulse Rate 80 80 80 Respiratory Rate 20 27 H 21 Blood Pressure 120/59 L Pulse Oximetry 92 L 92 L 94 L 02/05/18 09:00 02/05/18 10:00 02/05/18 11:00 Temperature Pulse Rate 80 80 79 Respiratory Rate 18 19 26 H Blood Pressure 116/57 L 103/51 L 101/67 Pulse Oximetry 91 L 94 L 90 L 02/05/18 12:00 02/05/18 12:26 02/05/18 13:00 Temperature 97.7 F Pulse Rate 79 79 79 Respiratory Rate 22 21 23 Blood Pressure 129/61 116/59 L Pulse Oximetry 89 L 90 L 02/05/18 14:00 02/05/18 15:01 02/05/18 16:00 Temperature Pulse Rate 79 79 79 Respiratory Rate 24 24 24 Blood Pressure 117/59 L 136/71 Pulse Oximetry 88 L 90 L 95 02/05/18 16:01 02/05/18 16:18 Temperature 97.7 F Pulse Rate 79 69 Respiratory Rate 20 16 Blood Pressure 131/66 Pulse Oximetry 94 L Intake & Output 02/04/18 02/05/18 02/05/18 18:59 06:59 18:59 Intake Total 1550 / 1550 770 / 770 Output Total 5000 / 5000 0 / 0 Balance -3450 / -3450 770 / 770 Weight 92.5 kg Intake: IV 50 / 50 50 / 50 Zosyn 2.25 GM Premix 50 ML @ 50 / 50 50 / 50 100 mls/hr IV.SIG Q12H [facility] Rx#: [id number] Oral 1500 / 1500 720 / 720 Output: Urine 0 / 0 Hemodialysis Amount 5000 / 5000 Other: Date of Last Bowel Movement 02/04/18 02/05/18 02/05/18 # Bowel Movements 1 <Eduardo Salvador - Last Filed: 02/05/18 16:54> Assessment and Plan - Assessment (1) ESRD (end stage renal disease) on dialysis Code(s): N18.6 - End stage renal disease; Z99.2 - Dependence on renal dialysis Status: Acute Plan: Continue HD MWF. 5L UF yesteray We will do HD Friday and Friday for continued fluid removal. Monitor electrolytes intermittently. Avoid IVF administration. Protect left arm from procedures, has new AV access that is not mature. PermCath in place for HD use. Phosphorus level has been acceptable without binder therapy. High protein diet with Supplements ordered. He has been losing weight, needs nutritional support. (2) Atrial fibrillation with RVR Code(s): I48.91 - Unspecified atrial fibrillation Status: Acute Plan: Improved, s/p AV gilbert ablation with pacemaker placement. On PO Amiodarone. Midodrine is ordered TID for hypotension. Cardiology following. Appreciate recommendations. (3) Hypoxia Code(s): R09.02 - Hypoxemia Status: Acute Plan: He is on high flow oxygen. Etiology is unclear. Shortness of breath improved somewhat post ablation. We are aggressively removing fluid with HD. Pulmonary following. He was exposed to Agent [place] during [place]. 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 (4) CHF (congestive heart failure) Code(s): I50.9 - Heart failure, unspecified Status: Acute Qualifiers: Heart failure type: unspecified Heart failure chronicity: unspecified Qualified Code(s): I50.9 - Heart failure, unspecified Plan: Stable. EF noted to be around 60%. Fluid removal with dialysis. (5) Anemia in CKD (chronic kidney disease) Code(s): N18.9 - Chronic kidney disease, unspecified; D63.1 - Anemia in chronic kidney disease Status: Acute Plan: On Epogen with dialysis. Hemoglobin is acceptable. <Jyoti Ceron - Last Filed: 02/05/18 12:25> - Assessment (1) ESRD (end stage renal disease) on dialysis Code(s): N18.6 - End stage renal disease; Z99.2 - Dependence on renal dialysis Status: Acute (2) Atrial fibrillation with RVR Code(s): I48.91 - Unspecified atrial fibrillation Status: Acute (3) Hypoxia Code(s): R09.02 - Hypoxemia Status: Acute (4) CHF (congestive heart failure) Code(s): I50.9 - Heart failure, unspecified Status: Acute Qualifiers: Heart failure type: unspecified Heart failure chronicity: unspecified Qualified Code(s): I50.9 - Heart failure, unspecified (5) Anemia in CKD (chronic kidney disease) Code(s): N18.9 - Chronic kidney disease, unspecified; D63.1 - Anemia in chronic kidney disease Status: Acute - Attending Attestation patient was seen and examined. Agree with above assessment and plan. Will attempt aggressive fluid removal. Consider repeating ABG. <Eduardo Salvador - Last Filed: 02/05/18 16:54>
--- NOTE | 2018-02-05 14:13 | P.PNCA ---
Subjective Interval history: alert in nad, says hemoptyis improving Physical Exam Vital signs: Vital Signs 02/04/18 14:25 02/04/18 15:00 02/04/18 16:00 Temperature 98.1 F Pulse Rate 80 80 80 Respiratory Rate 18 19 20 Blood Pressure 111/58 L 123/60 Pulse Oximetry 93 L 97 02/04/18 17:00 02/04/18 18:00 02/04/18 19:00 Temperature Pulse Rate 80 80 Respiratory Rate 24 23 Blood Pressure 120/90 102/57 L Pulse Oximetry 93 L 88 L 95 02/04/18 19:01 02/04/18 19:46 02/04/18 20:00 Temperature 97.8 F Pulse Rate 80 80 80 Respiratory Rate 26 H 24 20 Blood Pressure 106/58 L 111/57 L Pulse Oximetry 78 L 95 02/04/18 21:01 02/04/18 22:00 02/04/18 23:00 Temperature Pulse Rate 80 80 80 Respiratory Rate 27 H 20 10 L Blood Pressure 119/63 118/59 L 120/62 Pulse Oximetry 93 L 89 L 100 02/04/18 23:26 02/05/18 00:00 02/05/18 01:00 Temperature 97.9 F Pulse Rate 80 80 80 Respiratory Rate 24 17 12 Blood Pressure 110/59 L 110/55 L Pulse Oximetry 93 L 96 02/05/18 02:00 02/05/18 02:10 02/05/18 02:18 Temperature Pulse Rate 80 80 Respiratory Rate 28 H 25 H Blood Pressure 136/74 Pulse Oximetry 82 L 94 L 97 02/05/18 03:00 02/05/18 03:34 02/05/18 04:00 Temperature 97.9 F Pulse Rate 80 80 80 Respiratory Rate 10 L 20 15 Blood Pressure 118/59 L 115/60 Pulse Oximetry 96 88 L 02/05/18 05:01 02/05/18 06:00 02/05/18 07:00 Temperature Pulse Rate 80 80 80 Respiratory Rate 20 25 H 21 Blood Pressure 120/63 124/65 124/62 Pulse Oximetry 88 L 89 L 92 L 02/05/18 07:45 02/05/18 08:00 02/05/18 08:01 Temperature 98.1 F Pulse Rate 80 80 80 Respiratory Rate 20 27 H 21 Blood Pressure 120/59 L Pulse Oximetry 92 L 92 L 94 L 02/05/18 09:00 02/05/18 10:00 02/05/18 11:00 Temperature Pulse Rate 80 80 79 Respiratory Rate 18 19 26 H Blood Pressure 116/57 L 103/51 L 101/67 Pulse Oximetry 91 L 94 L 90 L 02/05/18 12:00 02/05/18 12:26 Temperature 97.7 F Pulse Rate 79 79 Respiratory Rate 22 21 Blood Pressure 129/61 Pulse Oximetry 89 L Intake & Output 02/04/18 02/05/18 02/05/18 18:59 06:59 18:59 Intake Total 1550 / 1550 770 / 770 Output Total 5000 / 5000 0 / 0 Balance -3450 / -3450 770 / 770 Weight 92.5 kg Intake: IV 50 / 50 50 / 50 Zosyn 2.25 GM Premix 50 ML @ 50 / 50 50 / 50 100 mls/hr IV.SIG Q12H PEDRO Rx#: [id number] Oral 1500 / 1500 720 / 720 Output: Urine 0 / 0 Hemodialysis Amount 5000 / 5000 Other: Date of Last Bowel Movement 02/04/18 02/05/18 02/05/18 # Bowel Movements 1 Assessment and Plan - Assessment (1) Atrial fibrillation with rapid ventricular response Code(s): I48.91 - Unspecified atrial fibrillation Status: Acute (2) CHF (congestive heart failure) Code(s): I50.9 - Heart failure, unspecified Status: Acute (3) Chronic kidney disease with end stage renal failure on dialysis Code(s): N18.6 - End stage renal disease; Z99.2 - Dependence on renal dialysis Status: Acute (4) Atrial fibrillation with RVR Code(s): I48.91 - Unspecified atrial fibrillation Status: Acute (5) ESRD (end stage renal disease) on dialysis Code(s): N18.6 - End stage renal disease; Z99.2 - Dependence on renal dialysis Status: Acute - Plan 1.) Afib with rvr - s/p ablation and micra placement 02/02/18 due to failure of medical management for rate control, d/w patient 2.) CAD - continue, lipitor, restart coumadin at 3 mg qd, has hemoptyis which is improving, f/u inr and cbc in am (2) CHF (congestive heart failure) Qualifiers: Heart failure type: unspecified Heart failure chronicity: unspecified Qualified Code(s): I50.9 - Heart failure, unspecified
--- NOTE | 2018-02-05 15:45 | P.PN ---
Subjective Interval history: alert nad still needs high flow O2 Physical Exam Vital signs: Vital Signs 02/04/18 16:00 02/04/18 17:00 02/04/18 18:00 Temperature 98.1 F Pulse Rate 80 80 80 Respiratory Rate 20 24 23 Blood Pressure 123/60 120/90 102/57 L Pulse Oximetry 97 93 L 88 L 02/04/18 19:00 02/04/18 19:01 02/04/18 19:46 Temperature Pulse Rate 80 80 Respiratory Rate 26 H 24 Blood Pressure 106/58 L Pulse Oximetry 95 78 L 02/04/18 20:00 02/04/18 21:01 02/04/18 22:00 Temperature 97.8 F Pulse Rate 80 80 80 Respiratory Rate 20 27 H 20 Blood Pressure 111/57 L 119/63 118/59 L Pulse Oximetry 95 93 L 89 L 02/04/18 23:00 02/04/18 23:26 02/05/18 00:00 Temperature 97.9 F Pulse Rate 80 80 80 Respiratory Rate 10 L 24 17 Blood Pressure 120/62 110/59 L Pulse Oximetry 100 93 L 02/05/18 01:00 02/05/18 02:00 02/05/18 02:10 Temperature Pulse Rate 80 80 80 Respiratory Rate 12 28 H 25 H Blood Pressure 110/55 L 136/74 Pulse Oximetry 96 82 L 94 L 02/05/18 02:18 02/05/18 03:00 02/05/18 03:34 Temperature Pulse Rate 80 80 Respiratory Rate 10 L 20 Blood Pressure 118/59 L Pulse Oximetry 97 96 02/05/18 04:00 02/05/18 05:01 02/05/18 06:00 Temperature 97.9 F Pulse Rate 80 80 80 Respiratory Rate 15 20 25 H Blood Pressure 115/60 120/63 124/65 Pulse Oximetry 88 L 88 L 89 L 02/05/18 07:00 02/05/18 07:45 02/05/18 08:00 Temperature 98.1 F Pulse Rate 80 80 80 Respiratory Rate 21 20 27 H Blood Pressure 124/62 Pulse Oximetry 92 L 92 L 92 L 02/05/18 08:01 02/05/18 09:00 02/05/18 10:00 Temperature Pulse Rate 80 80 80 Respiratory Rate 21 18 19 Blood Pressure 120/59 L 116/57 L 103/51 L Pulse Oximetry 94 L 91 L 94 L 02/05/18 11:00 02/05/18 12:00 02/05/18 12:26 Temperature 97.7 F Pulse Rate 79 79 79 Respiratory Rate 26 H 22 21 Blood Pressure 101/67 129/61 Pulse Oximetry 90 L 89 L 02/05/18 14:00 Temperature Pulse Rate 79 Respiratory Rate Blood Pressure Pulse Oximetry Intake & Output 02/04/18 02/05/18 02/05/18 18:59 06:59 18:59 Intake Total 1550 / 1550 770 / 770 Output Total 5000 / 5000 0 / 0 Balance -3450 / -3450 770 / 770 Weight 92.5 kg Intake: IV 50 / 50 50 / 50 Zosyn 2.25 GM Premix 50 ML @ 50 / 50 50 / 50 100 mls/hr IV.SIG Q12H PEDRO Rx#: [id number] Oral 1500 / 1500 720 / 720 Output: Urine 0 / 0 Hemodialysis Amount 5000 / 5000 Other: Date of Last Bowel Movement 02/04/18 02/05/18 02/05/18 # Bowel Movements 1 Narrative: GENERAL: NAD HEENT: NC, AT. CARDIOVASCULAR: Irregularly irregular rhythm. RESPIRATORY: No accessory muscle use. Crackles at the bases. GASTROINTESTINAL: Abdomen soft, non-tender, nondistended. Hepatic and splenic margins not palpable. Decreased bowel sounds. MUSCULOSKELETAL: Extremities without clubbing, cyanosis, mild edema. No obvious deformities. Cath site without hematoma. NEUROLOGICAL: Awake and alert. No obvious cranial nerve deficits. Results - Labs CBC & Chem 7: 02/05/18 06:32 02/05/18 06:32 Laboratory Results - last 24 hr 02/04/18 02/04/18 02/04/18 16:44 20:19 23:42 WBC 12.3 H RBC 3.82 L Hgb 10.6 L Hct 33.9 L MCV 88.7 MCH 27.7 MCHC 31.2 L RDW 17.6 H Plt Count 164 MPV 9.0 Neut % (Auto) Lymph % (Auto) Sampson % (Auto) Eos % (Auto) Baso % (Auto) Neut # (Auto) Lymph # (Auto) Sampson # (Auto) Eos # (Auto) Baso # (Auto) WBC Differential Differential Comment PT INR Sodium Potassium Chloride Carbon Dioxide Anion Gap BUN Creatinine Estimated GFR POC Glucose 462 H* 229 H Random Glucose Calcium 02/05/18 02/05/18 02/05/18 06:12 06:32 06:32 WBC 14.0 H RBC 3.85 L Hgb 10.9 L Hct 33.3 L MCV 86.6 MCH 28.3 MCHC 32.7 RDW 17.5 H Plt Count 155 MPV 9.3 Neut % (Auto) 93.0 H Lymph % (Auto) 2.0 L Sampson % (Auto) 4.9 Eos % (Auto) 0.0 Baso % (Auto) 0.1 Neut # (Auto) 13.0 H Lymph # (Auto) 0.3 L Sampson # (Auto) 0.7 Eos # (Auto) 0.0 Baso # (Auto) 0.0 WBC Differential . Differential Comment Auto diff final PT 20.7 H INR 2.0 Sodium Potassium Chloride Carbon Dioxide Anion Gap BUN Creatinine Estimated GFR POC Glucose 181 H Random Glucose Calcium 02/05/18 02/05/18 06:32 11:33 WBC RBC Hgb Hct MCV MCH MCHC RDW Plt Count MPV Neut % (Auto) Lymph % (Auto) Sampson % (Auto) Eos % (Auto) Baso % (Auto) Neut # (Auto) Lymph # (Auto) Sampson # (Auto) Eos # (Auto) Baso # (Auto) WBC Differential Differential Comment PT INR Sodium 134 L Potassium 4.8 D Chloride 93 L Carbon Dioxide 29.7 Anion Gap 11 BUN 71 H Creatinine 6.68 H Estimated GFR 8 L POC Glucose 204 H Random Glucose 152 H D Calcium 9.4 D Assessment and Plan - Plan RESPIRATORY FAILURE RENAL FAILURE ? COPD Chest pain CHF POST AV NODE ABLATION PLAN O2 NEEDED BRONCHODILATOR THERAPY INCREASE ACTIVITY taper steroids LIMITED ECHOCARDIOGRAM TO ASSESS RIGHT SIDED PRESSURES
[2018-02-06] MEDS: Insulin NovoLIN Regular Correctional Sugar Inj SQ SCH ×4 (00:19→23:53)
[2018-02-06] MEDS: Piperacil/Tazo 2.25 GM Premix 50 ML IV.SIG SCH ×3 (00:19→23:52)
--- NOTE | 2018-02-06 07:58 | P.PNCC ---
Subjective Subjective Remarks/Hospital Course: This is a 72yM with history of ESRD on HD who was recently admitted last month for supraventricular tachycardia. It appears from the records that normal sinus rhythm was restored prior to discharge home. He re-presented to the hospital with atrial fibrillation with rapid ventricular response which has been poorly responsive to esmolol infusion. It is noted that there is still a shortage of diltiazem infusions, so none is available to place the patient on. Dr. Waters with cardiology was consulted, as was Dr. Weinberg. The patient has also had hypotension during this hospital stay with most blood pressure readings between 80-100 systolic. This morning, Bystolic was started and was given together with amiodarone 400mg and metoprolol 25mg po. Approximately 2 hours after this, his blood pressure dropped into the 60s and 70s systolic. I was consulted by Dr. Wilcox to evaluate and manage his hemodynamics in the setting of poorly-controlled atrial fibrillation and hypotension. The patient does complain of light-headedness and a little chest discomfort which is new since his blood pressure has dropped into the 70s. He denies any other complaints and tolerated breakfast this AM. ROS otherwise negative. troponins have been serially negative this admission. I performed bedside critical care echocardiography and compared this to images obtained from last hospital admission on 11/2017. Given the poorly controlled nature of the patient's rate, wall motion and accurate ejection fraction are difficult to assess with accuracy. It does appear that the patient has relatively preserved EF and at most only mildly depressed LVEF. Aortic valve is sclerotic but appears unchanged from prior echo which calculated the valve area at ~2cm. no pericardial effusion. IVC is dilated around 2cm without respiratory variation. heart rate on my evaluation is 121. 8/2: Critical care reconsulted by Dr. Weinberg for worsening respiratory failure. Patient dropped O2 sats to 84% on 6 L nasal cannula. When I evaluated patient he was resting in bed. Placed him on high flow nasal cannula 30 L/min 60% FiO2 with which his O2 sats came up to 90%. 01/30: Remains on high flow nasal cannula. CT chest negative for PE shows consolidation bilateral lower lobes and a loculated effusion on the right. Defer to pulmonary regarding further recommendations. 01/31: Remains on high flow nasal cannula. Being dialyzed currently. On 30 L/ min 60% FiO2. O2 sats 96%. Feels that he is breathing a little better. 02/01, 02/02: On high flow nasal cannula at 20 L/min 50% FiO2. Shortness of breath gradually improving. 02/03: On high flow nasal cannula 20 L/min 60% FiO2. Underwent mitral implantation and AV gilbert ablation yesterday by Dr. Weinberg. Sitting up in bed today. Appears comfortable not in any acute distress. 02/04 Patient 02/04 Patient is awake and alert on high flow oxygen 25L with 70% FIO2> Afebrile. For HD today 02/05 No events overnight. s/p HD yesterday with removal 5L. Afebrile. On 25L with FIO2 down to 50% 02/06 Patient remains on high flow oxygen with 25L 55%FIO2. Afebrile. Objective Vital Signs / I&O: Vital Signs 02/05/18 08:00 02/05/18 08:01 02/05/18 09:00 Temperature 98.1 F Pulse Rate 80 80 80 Respiratory Rate 27 H 21 18 Blood Pressure 120/59 L 116/57 L Pulse Oximetry 92 L 94 L 91 L 02/05/18 10:00 02/05/18 11:00 02/05/18 12:00 Temperature 97.7 F Pulse Rate 80 79 79 Respiratory Rate 19 26 H 22 Blood Pressure 103/51 L 101/67 129/61 Pulse Oximetry 94 L 90 L 89 L 02/05/18 12:26 02/05/18 13:00 02/05/18 14:00 Temperature Pulse Rate 79 79 79 Respiratory Rate 21 23 24 Blood Pressure 116/59 L 117/59 L Pulse Oximetry 90 L 88 L 02/05/18 15:01 02/05/18 16:00 02/05/18 16:01 Temperature 97.7 F Pulse Rate 79 79 79 Respiratory Rate 24 24 20 Blood Pressure 136/71 131/66 Pulse Oximetry 90 L 95 94 L 02/05/18 16:18 02/05/18 18:00 02/05/18 19:27 Temperature Pulse Rate 69 80 80 Respiratory Rate 16 24 Blood Pressure Pulse Oximetry 95 02/05/18 20:00 02/05/18 22:00 02/06/18 00:00 Temperature 98.5 F 98.1 F Pulse Rate 80 80 80 Respiratory Rate 15 20 Blood Pressure 112/57 L 131/60 Pulse Oximetry 95 95 02/06/18 00:20 02/06/18 00:35 02/06/18 02:00 Temperature Pulse Rate 80 80 Respiratory Rate 22 Blood Pressure Pulse Oximetry 96 96 02/06/18 03:00 02/06/18 04:00 02/06/18 06:00 Temperature 97.8 F Pulse Rate 80 80 80 Respiratory Rate 16 20 Blood Pressure 138/67 Pulse Oximetry 93 L 02/06/18 07:00 Temperature Pulse Rate 80 Respiratory Rate 18 Blood Pressure Pulse Oximetry 95 Intake & Output 02/05/18 02/06/18 02/06/18 18:59 06:59 18:59 Intake Total 1300 / 1300 1010 / 1010 Output Total 270 / 270 Balance 1300 / 1300 740 / 740 Weight 93 kg Intake: IV 50 / 50 50 / 50 Zosyn 2.25 GM Premix 50 ML @ 50 / 50 50 / 50 100 mls/hr IV.SIG Q12H PEDRO Rx#: [id number] Oral 1250 / 1250 960 / 960 Output: Urine 270 / 270 Other: Date of Last Bowel Movement 02/05/18 02/05/18 # Bowel Movements 1 Result Diagrams: 02/05/18 06:32 02/05/18 06:32 Other Results: Laboratory Results - last 12 hr 02/06/18 02/06/18 00:09 05:21 POC Glucose 328 H 180 H Imaging: Abdomen X-Ray 01/23/18 23:05 CONCLUSION: 1. Nonobstructive bowel gas pattern. Chest CTA 01/30/18 00:00 CONCLUSION: 1. No evidence of pulmonary embolus. 2. Severe bilateral pulmonary parenchymal opacity with predominance at the dependent portions of the lungs. Difficult diagnosis includes pulmonary edema and infection. 3. Elongated lobulated nodular density in the right midlung following the major fissure likely represents loculated pleural effusion. 4. Enlarged pulmonary arteries suggesting pulmonary arterial hypertension. 5. Enlarged heart and small pericardial effusion. 6. Small left than right pleural effusions. 7. Mildly enlarged mediastinal lymph nodes, likely reactive. Chest X-Ray 02/04/18 00:00 CONCLUSION: 1. Patchy infiltrates bilaterally consistent with moderate pulmonary edema versus pneumonia. Clinical correlation is recommended. 2. Cardiomegaly. 3. Tiny bilateral pleural effusions. Objective Remarks: GENERAL: Patient is 72 yo on high flow oxygen. SKIN: Warm and dry. HEAD: Normocephalic. EYES: No scleral icterus. No injection or drainage. NECK: Supple, trachea midline. No JVD or lymphadenopathy. CARDIOVASCULAR: Regular rate and rhythm without murmurs, gallops, or rubs. RESPIRATORY: Breath sounds equal bilaterally. No accessory muscle use. Few coarse BS GASTROINTESTINAL: Abdomen soft, non-tender, nondistended. MUSCULOSKELETAL: No cyanosis, or edema. Neuro: Awake, alert Assessment and Plan - Assessment and Plan Plan: Active Problems: Acute respiratory failure CAD CHF Possible COPD Atrial Fibrillation with rapid ventricular response end-stage renal disease requiring hemodialysis Persistent hypotension secondary to poor cardiac output Neuro: Follow neuro status. Pain medications as needed. Monitor neuro status CV: Monitor HR and BP keep MAP>65mmHg Status post cardiac cath. Being followed by Dr. Weinberg. s/p ablation and micra placement 02/02/18 due to failure of medical management for rate control Check 2D echo evaluate right sided pressures On Lipitor 80mg qhs, Coumadin Pulmo: Wean down oxygen as mari keep sats >92% CT chest with no evidence of PE however did show emphysematous changes bilateral lower lobe consolidation changes as well as fluid in interlobar fissure on the right. Pulmonary arteries are enlarged with probable pulmonary hypertension. Continue with Bronchodilators, Solumederol 40mg Q12, On Symbicort. GI/liver: P.o. diet as tolerated Renal/: Monitor renal function, I/O's, avoid nephrotoxins Renal is following. s/p HD 02/04 with removal 5L. HD per renal ID: Continue with Zosyn will d/c abx after today's dose( has been on Zosyn since 01/24) Monitor for signs of infections ( Fever, WBC) Endocrine: SSI ( high sale) for glycemic control, Levemir 12u BID Heme: Monitor CBC, Coags- INR 2.0 on 02/05 Prophylaxis: Pepcid/SCDs. Anticoagulation with Coumadin. Follow up on labs Level 3
[2018-02-06 08:00] LABS: Hematocrit 33.9 % (39.0-51.0); Hemoglobin 10.8 gm/dL (13.0-17.0); Lymph # (Auto) 0.2 th/mm3 (1.0-4.8); Lymph % (Auto) 1.7 % (9.0-44.0); Mean Corpuscular HGB Conc 31.8 % (32.0-36.0); Mean Corpuscular Volume 87.9 fL (80.0-100.0); Mono # (Auto) 0.6 th/mm3 (0.0-0.9); Mono % (Auto) 4.8 % (0.0-8.0); Neut # (Auto) 12.1 th/mm3 (1.8-7.7); Neut % (Auto) 93.5 % (16.0-70.0); Platelet Count 147 th/mm3 (150-450); Red Blood Count 3.85 mil/mm3 (4.50-5.90); Red Cell Distribution Width 18.2 % (11.6-17.2)
[2018-02-06 08:06] LABS: INR 2.3 Ratio; Prothrombin Time 23.7 sec (9.8-11.6)
--- NOTE | 2018-02-06 08:08 | P.PN ---
Subjective Interval history: ALERT\ NAD ON O2 HIGH FLOW NEEDS LESS FIO2 Physical Exam Vital signs: Vital Signs 02/05/18 09:00 02/05/18 10:00 02/05/18 11:00 Temperature Pulse Rate 80 80 79 Respiratory Rate 18 19 26 H Blood Pressure 116/57 L 103/51 L 101/67 Pulse Oximetry 91 L 94 L 90 L 02/05/18 12:00 02/05/18 12:26 02/05/18 13:00 Temperature 97.7 F Pulse Rate 79 79 79 Respiratory Rate 22 21 23 Blood Pressure 129/61 116/59 L Pulse Oximetry 89 L 90 L 02/05/18 14:00 02/05/18 15:01 02/05/18 16:00 Temperature Pulse Rate 79 79 79 Respiratory Rate 24 24 24 Blood Pressure 117/59 L 136/71 Pulse Oximetry 88 L 90 L 95 02/05/18 16:01 02/05/18 16:18 02/05/18 18:00 Temperature 97.7 F Pulse Rate 79 69 80 Respiratory Rate 20 16 Blood Pressure 131/66 Pulse Oximetry 94 L 02/05/18 19:27 02/05/18 20:00 02/05/18 22:00 Temperature 98.5 F Pulse Rate 80 80 80 Respiratory Rate 24 15 Blood Pressure 112/57 L Pulse Oximetry 95 95 02/06/18 00:00 02/06/18 00:20 02/06/18 00:35 Temperature 98.1 F Pulse Rate 80 80 Respiratory Rate 20 22 Blood Pressure 131/60 Pulse Oximetry 95 96 96 02/06/18 02:00 02/06/18 03:00 02/06/18 04:00 Temperature 97.8 F Pulse Rate 80 80 80 Respiratory Rate 16 20 Blood Pressure 138/67 Pulse Oximetry 93 L 02/06/18 06:00 02/06/18 07:00 Temperature Pulse Rate 80 80 Respiratory Rate 18 Blood Pressure Pulse Oximetry 95 Intake & Output 02/05/18 02/06/18 02/06/18 18:59 06:59 18:59 Intake Total 1300 / 1300 1010 / 1010 Output Total 270 / 270 Balance 1300 / 1300 740 / 740 Weight 93 kg Intake: IV 50 / 50 50 / 50 Zosyn 2.25 GM Premix 50 ML @ 50 / 50 50 / 50 100 mls/hr IV.SIG Q12H [facility] Rx#: [id number] Oral 1250 / 1250 960 / 960 Output: Urine 270 / 270 Other: Date of Last Bowel Movement 02/05/18 02/05/18 # Bowel Movements 1 Narrative: GENERAL: NAD HEENT: NC, AT. CARDIOVASCULAR: Irregularly irregular rhythm. RESPIRATORY: No accessory muscle use. Crackles at the bases. GASTROINTESTINAL: Abdomen soft, non-tender, nondistended. Hepatic and splenic margins not palpable. Decreased bowel sounds. MUSCULOSKELETAL: Extremities without clubbing, cyanosis, mild edema. No obvious deformities. Cath site without hematoma. NEUROLOGICAL: Awake and alert. No obvious cranial nerve deficits. Results - Labs CBC & Chem 7: 02/06/18 07:48 02/05/18 06:32 Laboratory Results - last 24 hr 02/05/18 02/05/18 02/05/18 06:32 11:33 17:16 WBC RBC Hgb Hct MCV MCH MCHC RDW Plt Count MPV Neut % (Auto) Lymph % (Auto) Ritchie % (Auto) Eos % (Auto) Baso % (Auto) Neut # (Auto) Lymph # (Auto) Ritchie # (Auto) Eos # (Auto) Baso # (Auto) WBC Differential Differential Comment Sodium 134 L Potassium 4.8 D Chloride 93 L Carbon Dioxide 29.7 Anion Gap 11 BUN 71 H Creatinine 6.68 H Estimated GFR 8 L POC Glucose 204 H 220 H Random Glucose 152 H D Calcium 9.4 D 02/06/18 02/06/18 02/06/18 00:09 05:21 07:48 WBC 13.0 H RBC 3.85 L Hgb 10.8 L Hct 33.9 L MCV 87.9 MCH 28.0 MCHC 31.8 L RDW 18.2 H Plt Count 147 L MPV 9.0 Neut % (Auto) 93.5 H Lymph % (Auto) 1.7 L Ritchie % (Auto) 4.8 Eos % (Auto) 0.0 Baso % (Auto) 0.0 Neut # (Auto) 12.1 H Lymph # (Auto) 0.2 L Ritchie # (Auto) 0.6 Eos # (Auto) 0.0 Baso # (Auto) 0.0 WBC Differential . Differential Comment Auto diff final Sodium Potassium Chloride Carbon Dioxide Anion Gap BUN Creatinine Estimated GFR POC Glucose 328 H 180 H Random Glucose Calcium Assessment and Plan - Plan RESPIRATORY FAILURE, IMPROVING RENAL FAILURE ? COPD Chest pain CHF POST AV NODE ABLATION PLAN O2 NEEDED BRONCHODILATOR THERAPY INCREASE ACTIVITY taper steroids CHECK F/U ECHOCARDIOGRAM
[2018-02-06 08:29] LABS: Calcium 9.1 mg/dL (8.5-10.1); Carbon Dioxide 28.2 meq/L (21.0-32.0); Potassium 4.7 meq/L (3.5-5.1)
[2018-02-06] MEDS: Morphine Inj 4 MG/ML Vial IV.PUSH PRN (09:04)
[2018-02-06] MEDS: MethylPREDNISolone Sod Succinate Inj 40 MG/ML Vial IV.PUSH SCH ×2 (09:05→23:53)
[2018-02-06] MEDS: Insulin Detemir Inj 1,000 UNIT/10 ML Vial SQ SCH ×2 (09:07→21:00)
[2018-02-06] MEDS: Budesonide-Formoterol 160/4.5 MCG 6 GM Inhaler INH SCH ×2 (09:07→23:54)
[2018-02-06] MEDS: Albumin Human 25% Inj 100 ML IV.SIG PRN (10:00)
--- NOTE | 2018-02-06 11:16 | P.PNPAL ---
Reason for Visit Reason for visit: a. To assist with evaluation and management of symptoms including: Dyspnea, weakness b. To assist medical decision maker(s) with: better understanding of current medical conditions; weighing benefits/burdens of medical treatment options; making medical treatment decisions. Subjective Subjective/Interval History: Patient seen today for follow-up on symptom management of dyspnea, weakness. Patient underwent insertion of a Medtronic Micra pacemaker followed by AV gilbert ablation. He has no pain, and he does not feel dyspneic at rest. However, he remains on high flow 25 L oxygen. Remains afebrile. . Family/Friend Interactions: d/w daughter - updated her on his condition and progress, and answered her questions.. We remain concerned about his supplemental oxygen requirements. Advance Directives Health Care Surrogate: Copy in medical record Advance Directives Date on File: 02/02/18 Health Care Surrogate Name and Number: daughter Ms. Greer Objective Vital Signs: Vital Signs 02/05/18 12:00 02/05/18 12:26 02/05/18 13:00 Temperature 97.7 F Pulse Rate 79 79 79 Respiratory Rate 22 21 23 Blood Pressure 129/61 116/59 L Pulse Oximetry 89 L 90 L 02/05/18 14:00 02/05/18 15:01 02/05/18 16:00 Temperature Pulse Rate 79 79 79 Respiratory Rate 24 24 24 Blood Pressure 117/59 L 136/71 Pulse Oximetry 88 L 90 L 95 02/05/18 16:01 02/05/18 16:18 02/05/18 18:00 Temperature 97.7 F Pulse Rate 79 69 80 Respiratory Rate 20 16 Blood Pressure 131/66 Pulse Oximetry 94 L 02/05/18 19:27 02/05/18 20:00 02/05/18 22:00 Temperature 98.5 F Pulse Rate 80 80 80 Respiratory Rate 24 15 Blood Pressure 112/57 L Pulse Oximetry 95 95 02/06/18 00:00 02/06/18 00:20 02/06/18 00:35 Temperature 98.1 F Pulse Rate 80 80 Respiratory Rate 20 22 Blood Pressure 131/60 Pulse Oximetry 95 96 96 02/06/18 02:00 02/06/18 03:00 02/06/18 04:00 Temperature 97.8 F Pulse Rate 80 80 80 Respiratory Rate 16 20 Blood Pressure 138/67 Pulse Oximetry 93 L 02/06/18 06:00 08/10/18 07:00 Temperature Pulse Rate 80 80 Respiratory Rate 18 Blood Pressure Pulse Oximetry 95 Intake & Output 02/05/18 02/06/18 02/06/18 18:59 06:59 18:59 Intake Total 1300 / 1300 1010 / 1010 Output Total 270 / 270 Balance 1300 / 1300 740 / 740 Weight 93 kg Intake: IV 50 / 50 50 / 50 Zosyn 2.25 GM Premix 50 ML @ 50 / 50 50 / 50 100 mls/hr IV.SIG Q12H PEDRO Rx#: [id number] Oral 1250 / 1250 960 / 960 Output: Urine 270 / 270 Other: Date of Last Bowel Movement 02/05/18 02/05/18 02/06/18 # Bowel Movements 1 Physical Exam: CONSTITUTIONAL/GENERAL: This is an adequately nourished patient, appears weak, in no apparent distress. NECK: Trachea midline. Supple, nontender. No palpable thyroid enlargement or nodularity. CARDIOVASCULAR: S1, S2, irregular rhythm, controlled rate, no rub murmur or gallop. RESPIRATORY/CHEST: Diminished breath sounds with bibasilar crackles, some accessory muscle use noted today, No rhonchi or wheezes. GASTROINTESTINAL: Abdomen soft, non-tender, nondistended. No hepato-splenomegaly , or palpable masses. No guarding. Bowel sounds present. MUSCULOSKELETAL: Extremities without clubbing, cyanosis, or edema. No joint tenderness or effusion noted. No calf tenderness. No mottling or clubbing. NEUROLOGICAL: Appears tired, fatigued, oriented 4. Motor and sensory grossly within normal limits. Follows commands. Moves all extremities. PSYCHIATRIC: Appears less anxious than previous assessment. . Diagnostic Tests Laboratory: Laboratory Results - last 72 hr 02/03/18 02/03/18 02/03/18 12:00 17:51 21:34 WBC RBC Hgb Hct MCV MCH MCHC RDW Plt Count MPV Neut % (Auto) Lymph % (Auto) King % (Auto) Eos % (Auto) Baso % (Auto) Neut # (Auto) Lymph # (Auto) King # (Auto) Eos # (Auto) Baso # (Auto) WBC Differential Differential Comment PT INR Sodium Potassium Chloride Carbon Dioxide Anion Gap BUN Creatinine Estimated GFR POC Glucose 477 H* 482 H* 442 H Random Glucose Calcium Phosphorus 02/04/18 02/04/18 02/04/18 03:49 07:52 11:20 WBC RBC Hgb Hct MCV MCH MCHC RDW Plt Count MPV Neut % (Auto) Lymph % (Auto) King % (Auto) Eos % (Auto) Baso % (Auto) Neut # (Auto) Lymph # (Auto) King # (Auto) Eos # (Auto) Baso # (Auto) WBC Differential Differential Comment PT 21.4 H INR 2.1 Sodium Potassium Chloride Carbon Dioxide Anion Gap BUN Creatinine Estimated GFR POC Glucose 443 H 282 H Random Glucose Calcium Phosphorus 02/04/18 02/04/18 02/04/18 13:12 13:12 13:12 WBC 10.5 RBC 3.89 L Hgb 11.0 L Hct 34.3 L MCV 88.0 MCH 28.3 MCHC 32.2 RDW 17.0 Plt Count 161 MPV 9.2 Neut % (Auto) 97.9 H Lymph % (Auto) 0.9 L King % (Auto) 1.1 Eos % (Auto) 0.0 Baso % (Auto) 0.1 Neut # (Auto) 10.3 H Lymph # (Auto) 0.1 L King # (Auto) 0.1 Eos # (Auto) 0.0 Baso # (Auto) 0.0 WBC Differential . Differential Comment Auto diff final PT INR Sodium 136 Potassium 4.0 Chloride 97 L Carbon Dioxide 27.2 Anion Gap 12 BUN 46 H Creatinine 5.26 H Estimated GFR 11 L POC Glucose Random Glucose 326 H Calcium 8.5 Phosphorus 4.1 02/04/18 02/04/18 02/04/18 16:44 20:19 23:42 WBC 12.3 H RBC 3.82 L Hgb 10.6 L Hct 33.9 L MCV 88.7 MCH 27.7 MCHC 31.2 L RDW 17.6 H Plt Count 164 MPV 9.0 Neut % (Auto) Lymph % (Auto) King % (Auto) Eos % (Auto) Baso % (Auto) Neut # (Auto) Lymph # (Auto) King # (Auto) Eos # (Auto) Baso # (Auto) WBC Differential Differential Comment PT INR Sodium Potassium Chloride Carbon Dioxide Anion Gap BUN Creatinine Estimated GFR POC Glucose 462 H* 229 H Random Glucose Calcium Phosphorus 02/05/18 02/05/18 02/05/18 06:12 06:32 06:32 WBC 14.0 H RBC 3.85 L Hgb 10.9 L Hct 33.3 L MCV 86.6 MCH 28.3 MCHC 32.7 RDW 17.5 H Plt Count 155 MPV 9.3 Neut % (Auto) 93.0 H Lymph % (Auto) 2.0 L King % (Auto) 4.9 Eos % (Auto) 0.0 Baso % (Auto) 0.1 Neut # (Auto) 13.0 H Lymph # (Auto) 0.3 L King # (Auto) 0.7 Eos # (Auto) 0.0 Baso # (Auto) 0.0 WBC Differential . Differential Comment Auto diff final PT 20.7 H INR 2.0 Sodium Potassium Chloride Carbon Dioxide Anion Gap BUN Creatinine Estimated GFR POC Glucose 181 H Random Glucose Calcium Phosphorus 02/05/18 02/05/18 02/05/18 06:32 11:33 17:16 WBC RBC Hgb Hct MCV MCH MCHC RDW Plt Count MPV Neut % (Auto) Lymph % (Auto) King % (Auto) Eos % (Auto) Baso % (Auto) Neut # (Auto) Lymph # (Auto) King # (Auto) Eos # (Auto) Baso # (Auto) WBC Differential Differential Comment PT INR Sodium 134 L Potassium 4.8 D Chloride 93 L Carbon Dioxide 29.7 Anion Gap 11 BUN 71 H Creatinine 6.68 H Estimated GFR 8 L POC Glucose 204 H 220 H Random Glucose 152 H D Calcium 9.4 D Phosphorus 02/06/18 02/06/18 02/06/18 00:09 05:21 07:48 WBC RBC Hgb Hct MCV MCH MCHC RDW Plt Count MPV Neut % (Auto) Lymph % (Auto) King % (Auto) Eos % (Auto) Baso % (Auto) Neut # (Auto) Lymph # (Auto) King # (Auto) Eos # (Auto) Baso # (Auto) WBC Differential Differential Comment PT 23.7 H INR 2.3 Sodium Potassium Chloride Carbon Dioxide Anion Gap BUN Creatinine Estimated GFR POC Glucose 328 H 180 H Random Glucose Calcium Phosphorus 02/06/18 02/06/18 07:48 07:48 WBC 13.0 H RBC 3.85 L Hgb 10.8 L Hct 33.9 L MCV 87.9 MCH 28.0 MCHC 31.8 L RDW 18.2 H Plt Count 147 L MPV 9.0 Neut % (Auto) 93.5 H Lymph % (Auto) 1.7 L King % (Auto) 4.8 Eos % (Auto) 0.0 Baso % (Auto) 0.0 Neut # (Auto) 12.1 H Lymph # (Auto) 0.2 L King # (Auto) 0.6 Eos # (Auto) 0.0 Baso # (Auto) 0.0 WBC Differential . Differential Comment Auto diff final PT INR Sodium 132 L Potassium 4.7 Chloride 90 L Carbon Dioxide 28.2 Anion Gap 14 BUN 102 H Creatinine 8.18 H Estimated GFR 7 L POC Glucose Random Glucose 98 Calcium 9.1 Phosphorus Result Diagrams: 02/06/18 07:48 02/06/18 07:48 Procedures: 01/26/18: Cardiac catheterization 02/02/18: Cardiac catheterization: Insertion of Medtronic Micra and AV gilbert ablation Assessment and Plan - Disease Oriented Problem List (1) Atrial fibrillation with rapid ventricular response (2) Chronic kidney disease with end stage renal failure on dialysis (3) Respiratory failure Comment: Hypoxic, requiring high flow oxygen Pertinent Non-Medical Issues: Psychosocial:He was born in [place] but has been in [place] for many years , 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 Spiritual:[employer] Supervisor available. Legal:His daughter, Dinorah Greer, is his healthcare decision maker/HCS. Ethical issues impacting care: None noted. Important Contacts: Daughter: Dinorah Greer . Prognosis: His prognosis is guarded. He is short of breath at rest, remains in atrial fib , rate reasonably well controlled. He continues to complain of intermittent chest pain and given his recent left heart catheterization showing mild to moderate coronary disease, this is unlikely to be caused by anginal pain. He has significant hypoxic lung disease/respiratory failure, end-stage renal disease, diabetes, hypertension and is at risk for further complications and decline. . Code Status: Full Code Plan: PLAN: DECISION-MAKING: The patient is capacitated to make his own decisions however requests assisted decision making with his daughter, Dinorah Greer. He has verbalized that he wants Ms. Greer to be his healthcare surrogate. GOALS: Aggressive. Patient states he does not want to sign a DNR and would accept mechanical ventilation if required. CODE STATUS: FULL CODE SYMPTOMS: * Weakness: Progressively worsening, secondary to extended ICU status, bedbound status, severe respiratory insufficiency, increased work of breathing. Unable to effectively participate in PT due to dyspnea and weakness. * Dyspnea: Multifactorial to include past history of smoking, prior asbestos exposure, prior exposure to concrete dust, atrial fibrillation, as well as agent orange exposure in [place]. He continues to require high flow nasal cannula. His respiratory status would be expected to continue to decline in the upcoming days/weeks, and he is at risk of requiring intubation. Palliative care will continue to follow the patient during hospital course as condition evolves, to assist patient/decision-maker with understanding of their medical conditions, weighing benefits/burdens of treatment options, for clarification of goals of treatment. Additionally will assist with any symptoms of palliative concern. . Time Spent Total Floor Time (mins): 38 Face to Face Time (mins): 14 >50% Time in Counseling or Coordination of Care: Yes Attestation Attestation: To help prompt me to consider important information that might be impacting today's encounter and assessment, information from prior notes written by myself or my colleagues may have been "brought forward" into today's note. My signature on this note, however, is an attestation that I personally performed the exam, history, and/or decision-making noted today, and, unless otherwise indicated, the interactions with patient, family, and staff as well as the review of records all occurred today. I also attest that the listed assessment and stated plan reflect my best clinical judgment today based on the combination of historical information, prior notes, and today's exam/ interactions. When time spent is documented, it refers only to time spent today by the signer, or if indicated, combined time spent today by collaborating physician/nurse practitioner.
--- NOTE | 2018-02-06 11:25 | P.PNNP ---
Subjective Interval history: Seen during dialysis. On high flow at 25 LPM, 55%. He feels breathing is better. <Jyoti Ceron - Last Filed: 02/06/18 11:22> Physical Exam Vital signs: Vital Signs 02/05/18 12:00 02/05/18 12:26 02/05/18 13:00 Temperature 97.7 F Pulse Rate 79 79 79 Respiratory Rate 22 21 23 Blood Pressure 129/61 116/59 L Pulse Oximetry 89 L 90 L 02/05/18 14:00 02/05/18 15:01 02/05/18 16:00 Temperature Pulse Rate 79 79 79 Respiratory Rate 24 24 24 Blood Pressure 117/59 L 136/71 Pulse Oximetry 88 L 90 L 95 02/05/18 16:01 02/05/18 16:18 02/05/18 18:00 Temperature 97.7 F Pulse Rate 79 69 80 Respiratory Rate 20 16 Blood Pressure 131/66 Pulse Oximetry 94 L 02/05/18 19:27 02/05/18 20:00 02/05/18 22:00 Temperature 98.5 F Pulse Rate 80 80 80 Respiratory Rate 24 15 Blood Pressure 112/57 L Pulse Oximetry 95 95 02/06/18 00:00 02/06/18 00:20 02/06/18 00:35 Temperature 98.1 F Pulse Rate 80 80 Respiratory Rate 20 22 Blood Pressure 131/60 Pulse Oximetry 95 96 96 02/06/18 02:00 02/06/18 03:00 02/06/18 04:00 Temperature 97.8 F Pulse Rate 80 80 80 Respiratory Rate 16 20 Blood Pressure 138/67 Pulse Oximetry 93 L 02/06/18 06:00 02/06/18 07:00 02/06/18 11:00 Temperature Pulse Rate 80 80 80 Respiratory Rate 18 18 Blood Pressure Pulse Oximetry 95 Intake & Output 02/05/18 02/06/18 02/06/18 18:59 06:59 18:59 Intake Total 1300 / 1300 1010 / 1010 Output Total 270 / 270 Balance 1300 / 1300 740 / 740 Weight 93 kg Intake: IV 50 / 50 50 / 50 Zosyn 2.25 GM Premix 50 ML @ 50 / 50 50 / 50 100 mls/hr IV.SIG Q12H PEDRO Rx#: [id number] Oral 1250 / 1250 960 / 960 Output: Urine 270 / 270 Other: Date of Last Bowel Movement 02/05/18 02/05/18 02/06/18 # Bowel Movements 1 - Constitutional no acute distress, chronically ill appearing, cooperative - Routine Respiratory Exam Present: decreased breath sounds, rales. Absent: accessory muscle use - Routine Cardiovascular Exam Present: S1, S2. Absent: RRR Comments: paced - Routine Extremities Exam Present: full ROM, pulses intact. Absent: edema - Routine Skin Exam Present: intact, dry, warm - Routine Neurological Exam Present: alert, oriented X3, CN II-XII intact - Detailed Neurological Exam: Coma Scale Eye Opening: Spontaneous Verbal Response: Oriented Motor Response: Obey commands [place] Coma Scale Total: 15 <Jyoti Ceron - Last Filed: 02/06/18 11:22> Vital signs: Vital Signs 02/05/18 15:01 02/05/18 16:00 02/05/18 16:01 Temperature 97.7 F Pulse Rate 79 79 79 Respiratory Rate 24 24 20 Blood Pressure 136/71 131/66 Pulse Oximetry 90 L 95 94 L 02/05/18 16:18 02/05/18 18:00 02/05/18 19:27 Temperature Pulse Rate 69 80 80 Respiratory Rate 16 24 Blood Pressure Pulse Oximetry 95 02/05/18 20:00 02/05/18 22:00 02/06/18 00:00 Temperature 98.5 F 98.1 F Pulse Rate 80 80 80 Respiratory Rate 15 20 Blood Pressure 112/57 L 131/60 Pulse Oximetry 95 95 02/06/18 00:20 02/06/18 00:35 02/06/18 02:00 Temperature Pulse Rate 80 80 Respiratory Rate 22 Blood Pressure Pulse Oximetry 96 96 02/06/18 03:00 02/06/18 04:00 02/06/18 06:00 Temperature 97.8 F Pulse Rate 80 80 80 Respiratory Rate 16 20 Blood Pressure 138/67 Pulse Oximetry 93 L 02/06/18 07:00 02/06/18 08:00 02/06/18 10:00 Temperature 97.9 F Pulse Rate 80 80 80 Respiratory Rate 18 24 Blood Pressure 146/74 H Pulse Oximetry 95 92 L 02/06/18 11:00 02/06/18 12:00 Temperature 97.9 F Pulse Rate 80 80 Respiratory Rate 18 21 Blood Pressure 119/60 Pulse Oximetry Intake & Output 02/05/18 02/06/18 02/06/18 18:59 06:59 18:59 Intake Total 1300 / 1300 1010 / 1010 Output Total 270 / 270 4500 / 4500 Balance 1300 / 1300 740 / 740 -4500 / -4500 Weight 93 kg Intake: IV 50 / 50 50 / 50 Zosyn 2.25 GM Premix 50 ML @ 50 / 50 50 / 50 100 mls/hr IV.SIG Q12H PEDRO Rx#: [id number] Oral 1250 / 1250 960 / 960 Output: Urine 270 / 270 Hemodialysis Amount 4500 / 4500 Other: Date of Last Bowel Movement 02/05/18 02/05/18 02/06/18 # Bowel Movements 1 <Eduardo Salvador - Last Filed: 02/06/18 14:35> Assessment and Plan - Assessment (1) ESRD (end stage renal disease) on dialysis Code(s): N18.6 - End stage renal disease; Z99.2 - Dependence on renal dialysis Status: Acute Plan: SEen during dialysis today on a 3K, 340 BFR, goal 5L Continue HD MWF. We will do HD Friday for extra fluid removal. Monitor electrolytes intermittently. Avoid IVF administration. Protect left arm from procedures, has new AV access that is not mature. Will need to follow with vascular at a later date. PermCath in place for HD use. Phosphorus level has been acceptable without binder therapy. High protein diet with Supplements ordered. He has been losing weight, needs nutritional support. (2) Atrial fibrillation with RVR Code(s): I48.91 - Unspecified atrial fibrillation Status: Acute Plan: Improved, s/p AV gilbert ablation with pacemaker placement. On PO Amiodarone. Midodrine is ordered TID for hypotension. Cardiology following. Appreciate recommendations. (3) Hypoxia Code(s): R09.02 - Hypoxemia Status: Acute Plan: He is on high flow oxygen. Etiology is unclear. Shortness of breath improved somewhat post ablation. We are aggressively removing fluid with HD. Pulmonary following. He was exposed to Agent [place] during [place]. 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 (4) CHF (congestive heart failure) Code(s): I50.9 - Heart failure, unspecified Status: Acute Qualifiers: Heart failure type: unspecified Heart failure chronicity: unspecified Qualified Code(s): I50.9 - Heart failure, unspecified Plan: Stable. EF noted to be around 60%. Fluid removal with dialysis. (5) Anemia in CKD (chronic kidney disease) Code(s): N18.9 - Chronic kidney disease, unspecified; D63.1 - Anemia in chronic kidney disease Status: Acute Plan: On Epogen with dialysis. Hemoglobin is acceptable. <Jyoti Ceron - Last Filed: 02/06/18 11:22> - Assessment (1) ESRD (end stage renal disease) on dialysis Code(s): N18.6 - End stage renal disease; Z99.2 - Dependence on renal dialysis Status: Acute (2) Atrial fibrillation with RVR Code(s): I48.91 - Unspecified atrial fibrillation Status: Acute (3) Hypoxia Code(s): R09.02 - Hypoxemia Status: Acute (4) CHF (congestive heart failure) Code(s): I50.9 - Heart failure, unspecified Status: Acute Qualifiers: Heart failure type: unspecified Heart failure chronicity: unspecified Qualified Code(s): I50.9 - Heart failure, unspecified (5) Anemia in CKD (chronic kidney disease) Code(s): N18.9 - Chronic kidney disease, unspecified; D63.1 - Anemia in chronic kidney disease Status: Acute - Attending Attestation patient was seen and examined. Agree with above assessment and plan. Dialysis again tomorrow. <Eduardo Salvador - Last Filed: 02/06/18 14:35>
--- NOTE | 2018-02-06 11:38 | P.PNCA ---
Subjective Interval history: alert in nad, hemoptyis improving, hgb stable Physical Exam Vital signs: Vital Signs 02/05/18 12:00 02/05/18 12:26 02/05/18 13:00 Temperature 97.7 F Pulse Rate 79 79 79 Respiratory Rate 22 21 23 Blood Pressure 129/61 116/59 L Pulse Oximetry 89 L 90 L 02/05/18 14:00 02/05/18 15:01 02/05/18 16:00 Temperature Pulse Rate 79 79 79 Respiratory Rate 24 24 24 Blood Pressure 117/59 L 136/71 Pulse Oximetry 88 L 90 L 95 02/05/18 16:01 02/05/18 16:18 02/05/18 18:00 Temperature 97.7 F Pulse Rate 79 69 80 Respiratory Rate 20 16 Blood Pressure 131/66 Pulse Oximetry 94 L 02/05/18 19:27 02/05/18 20:00 02/05/18 22:00 Temperature 98.5 F Pulse Rate 80 80 80 Respiratory Rate 24 15 Blood Pressure 112/57 L Pulse Oximetry 95 95 02/06/18 00:00 02/06/18 00:20 02/06/18 00:35 Temperature 98.1 F Pulse Rate 80 80 Respiratory Rate 20 22 Blood Pressure 131/60 Pulse Oximetry 95 96 96 02/06/18 02:00 02/06/18 03:00 02/06/18 04:00 Temperature 97.8 F Pulse Rate 80 80 80 Respiratory Rate 16 20 Blood Pressure 138/67 Pulse Oximetry 93 L 02/06/18 06:00 02/06/18 07:00 02/06/18 11:00 Temperature Pulse Rate 80 80 80 Respiratory Rate 18 18 Blood Pressure Pulse Oximetry 95 Intake & Output 02/05/18 02/06/18 02/06/18 18:59 06:59 18:59 Intake Total 1300 / 1300 1010 / 1010 Output Total 270 / 270 Balance 1300 / 1300 740 / 740 Weight 93 kg Intake: IV 50 / 50 50 / 50 Zosyn 2.25 GM Premix 50 ML @ 50 / 50 50 / 50 100 mls/hr IV.SIG Q12H PEDRO Rx#: [id number] Oral 1250 / 1250 960 / 960 Output: Urine 270 / 270 Other: Date of Last Bowel Movement 02/05/18 02/05/18 02/06/18 # Bowel Movements 1 Assessment and Plan - Assessment (1) Atrial fibrillation with rapid ventricular response Code(s): I48.91 - Unspecified atrial fibrillation Status: Acute (2) CHF (congestive heart failure) Code(s): I50.9 - Heart failure, unspecified Status: Acute (3) Chronic kidney disease with end stage renal failure on dialysis Code(s): N18.6 - End stage renal disease; Z99.2 - Dependence on renal dialysis Status: Acute (4) Atrial fibrillation with RVR Code(s): I48.91 - Unspecified atrial fibrillation Status: Acute (5) ESRD (end stage renal disease) on dialysis Code(s): N18.6 - End stage renal disease; Z99.2 - Dependence on renal dialysis Status: Acute - Plan 1.) Afib with rvr - s/p ablation and micra placement 02/02/18 due to failure of medical management for rate control, d/w patient, inr therapeutic, hgb stable, rate controlled 2.) CAD - continue, lipitor, restart coumadin at 3 mg qd, has hemoptyis which is improving, f/u inr and cbc in am (2) CHF (congestive heart failure) Qualifiers: Heart failure type: unspecified Heart failure chronicity: unspecified Qualified Code(s): I50.9 - Heart failure, unspecified
--- NOTE | 2018-02-06 15:10 | P.DIET ---
Nutritional Evaluation Type of nutrition evaluation: follow-up Nutrition screening: Weight Loss > 10 lbs Subjective Subjective Comments: Pt states he is "as hungry as a horse". States he likes the Nepro and is drinking it. Objective - Diagnosis CHF, AFib w/RVR, ESRD on HD - Objective [place] body weight: 89 kg Body Weight Used for Calculations: Actual (93kg used for assessment here) Energy Needs - Lower Range (kCal/kg): 28 Energy Needs - Upper Range (kCal/kg): 33 Lower Limit kCal/kg (kCals): 2,604 Upper Limit kCal/kg (kCals): 3,069 Lower Limit Protein Factor (Grams per Kg): 1.2 Upper Limit Protein Factor (Grams per Kg): 1.5 Lower Protein Needs (Protein): 112 Upper Protein Needs (Protein): 140 Dietitian Reviewed in Medical Record: Current diet, Curent medications, Intake & Output, Labs Diet Order: NPO Objective Comments: PMH Includes: CHF, ESRD on HD, Fistula, HTN, DM-2, hyperlipidemia Labs include: Na 132, Cr 8.18 +1 BM, HD 5L removed Feeding - Current PO Supplement Current Supplement: Nepro Current Frequency of Supplement: Three times a day Current kCals Provided by Supplement: 425 Current Protein Provided by Supplement: 20 Assessment Assessment: Pt is at nutritional risk r/t reported recent unintentional wt loss and need for HD. Pt states he is hungry and eating very well. Obtained food preferences from pt, will provide double portions of protein and Nepro tid. Labs reviewed. Will continue to monitor po intake, clinical course. Recommendations: Cardiac high protein diet with Nepro tid Dietitian to Monitor: Lab values, Electrolytes, Renal labs, Glucose level, Supplement acceptance, Intake & Output, Weight change, PO Intake, Medical course
[2018-02-07] MEDS: Senna/Docusate Sodium 8.6/50 MG Tablet PO SCH ×4 (01:16→22:23)
[2018-02-07] MEDS: Insulin NovoLIN Regular Correctional Sugar Inj SQ SCH ×5 (01:16→23:07)
[2018-02-07 06:50] LABS: Baso % (Auto) 0.1 % (0.0-2.0); Hematocrit 33.5 % (39.0-51.0); Lymph # (Auto) 0.2 th/mm3 (1.0-4.8); Lymph % (Auto) 1.9 % (9.0-44.0); Mean Corpuscular HGB Conc 32.8 % (32.0-36.0); Mean Corpuscular Hemoglobin 28.4 pg (27.0-34.0); Mean Corpuscular Volume 86.6 fL (80.0-100.0); Mean Platelet Volume 9.6 fL (7.0-11.0); Mono # (Auto) 0.4 th/mm3 (0.0-0.9); Mono % (Auto) 3.3 % (0.0-8.0); Neut # (Auto) 12.3 th/mm3 (1.8-7.7); Neut % (Auto) 94.7 % (16.0-70.0); Platelet Count 141 th/mm3 (150-450); Red Blood Count 3.87 mil/mm3 (4.50-5.90); Red Cell Distribution Width 18.9 % (11.6-17.2)
[2018-02-07 06:55] LABS: INR 2.1 Ratio; Prothrombin Time 21.6 sec (9.8-11.6)
[2018-02-07 07:14] LABS: Calcium 9.4 mg/dL (8.5-10.1); Carbon Dioxide 29.7 meq/L (21.0-32.0); Potassium 4.8 meq/L (3.5-5.1)
--- NOTE | 2018-02-07 07:36 | P.PNCC ---
Subjective Subjective Remarks/Hospital Course: This is a 72yM with history of ESRD on HD who was recently admitted last month for supraventricular tachycardia. It appears from the records that normal sinus rhythm was restored prior to discharge home. He re-presented to the hospital with atrial fibrillation with rapid ventricular response which has been poorly responsive to esmolol infusion. It is noted that there is still a shortage of diltiazem infusions, so none is available to place the patient on. Dr. Waters with cardiology was consulted, as was Dr. Weinberg. The patient has also had hypotension during this hospital stay with most blood pressure readings between 80-100 systolic. This morning, Bystolic was started and was given together with amiodarone 400mg and metoprolol 25mg po. Approximately 2 hours after this, his blood pressure dropped into the 60s and 70s systolic. I was consulted by Dr. Wilcox to evaluate and manage his hemodynamics in the setting of poorly-controlled atrial fibrillation and hypotension. The patient does complain of light-headedness and a little chest discomfort which is new since his blood pressure has dropped into the 70s. He denies any other complaints and tolerated breakfast this AM. ROS otherwise negative. troponins have been serially negative this admission. I performed bedside critical care echocardiography and compared this to images obtained from last hospital admission on 11/2017. Given the poorly controlled nature of the patient's rate, wall motion and accurate ejection fraction are difficult to assess with accuracy. It does appear that the patient has relatively preserved EF and at most only mildly depressed LVEF. Aortic valve is sclerotic but appears unchanged from prior echo which calculated the valve area at ~2cm. no pericardial effusion. IVC is dilated around 2cm without respiratory variation. heart rate on my evaluation is 121. 8/2: Critical care reconsulted by Dr. Weinberg for worsening respiratory failure. Patient dropped O2 sats to 84% on 6 L nasal cannula. When I evaluated patient he was resting in bed. Placed him on high flow nasal cannula 30 L/min 60% FiO2 with which his O2 sats came up to 90%. 01/30: Remains on high flow nasal cannula. CT chest negative for PE shows consolidation bilateral lower lobes and a loculated effusion on the right. Defer to pulmonary regarding further recommendations. 01/31: Remains on high flow nasal cannula. Being dialyzed currently. On 30 L/ min 60% FiO2. O2 sats 96%. Feels that he is breathing a little better. 02/01, 02/02: On high flow nasal cannula at 20 L/min 50% FiO2. Shortness of breath gradually improving. 02/03: On high flow nasal cannula 20 L/min 60% FiO2. Underwent mitral implantation and AV gilbert ablation yesterday by Dr. Weinberg. Sitting up in bed today. Appears comfortable not in any acute distress. 02/04 Patient 02/04 Patient is awake and alert on high flow oxygen 25L with 70% FIO2> Afebrile. For HD today 02/05 No events overnight. s/p HD yesterday with removal 5L. Afebrile. On 25L with FIO2 down to 50% 02/06 Patient remains on high flow oxygen with 25L 55%FIO2. Afebrile. 02/07 Patient s/p HD yesterday with removal 4.5L. Remains on high flow oxygen 25L with 50% FIO2. Afebrile. Objective Vital Signs / I&O: Vital Signs 02/06/18 08:00 02/06/18 10:00 02/06/18 11:00 Temperature 97.9 F Pulse Rate 80 80 80 Respiratory Rate 24 18 Blood Pressure 146/74 H Pulse Oximetry 92 L 02/06/18 12:00 02/06/18 14:00 02/06/18 14:37 Temperature 97.9 F Pulse Rate 80 80 80 Respiratory Rate 21 18 Blood Pressure 119/60 Pulse Oximetry 02/06/18 16:00 02/06/18 18:00 02/06/18 20:00 Temperature 97.8 F Pulse Rate 80 80 80 Respiratory Rate 33 H Blood Pressure 114/75 Pulse Oximetry 87 L 02/06/18 20:15 02/06/18 20:30 02/06/18 20:34 Temperature Pulse Rate 80 80 80 Respiratory Rate 27 H 36 H 20 Blood Pressure 114/60 116/59 L Pulse Oximetry 92 L 90 L 92 L 02/06/18 20:45 02/06/18 21:00 02/06/18 21:15 Temperature Pulse Rate 80 80 80 Respiratory Rate 31 H 37 H 20 Blood Pressure 116/60 115/61 119/63 Pulse Oximetry 86 L 93 L 90 L 02/06/18 21:30 02/06/18 21:45 02/06/18 22:00 Temperature Pulse Rate 80 80 80 Respiratory Rate 35 H 35 H 25 H Blood Pressure 131/68 132/67 128/66 Pulse Oximetry 94 L 93 L 92 L 02/06/18 22:15 02/06/18 22:30 02/06/18 22:45 Temperature Pulse Rate 80 80 80 Respiratory Rate 25 H 24 26 H Blood Pressure 126/65 133/69 132/62 Pulse Oximetry 86 L 94 L 93 L 02/06/18 23:00 02/06/18 23:15 02/06/18 23:30 Temperature Pulse Rate 80 80 80 Respiratory Rate 21 19 26 H Blood Pressure 135/60 134/65 106/58 L Pulse Oximetry 95 88 L 94 L 02/06/18 23:45 02/07/18 00:00 02/07/18 00:31 Temperature 98.1 F Pulse Rate 80 80 80 Respiratory Rate 24 28 H 43 H Blood Pressure 119/62 130/69 118/57 L Pulse Oximetry 94 L 92 L 92 L 02/07/18 00:44 02/07/18 00:45 02/07/18 01:00 Temperature Pulse Rate 80 80 80 Respiratory Rate 18 29 H 25 H Blood Pressure 108/53 L 116/58 L Pulse Oximetry 94 L 98 02/07/18 01:15 02/07/18 01:30 02/07/18 01:45 Temperature Pulse Rate 80 80 80 Respiratory Rate 19 20 29 H Blood Pressure 125/57 L 120/55 L 120/55 L Pulse Oximetry 98 94 L 94 L 02/07/18 02:00 02/07/18 02:15 02/07/18 04:00 Temperature Pulse Rate 80 80 Respiratory Rate 17 13 20 Blood Pressure 120/58 L 123/58 L Pulse Oximetry 95 98 02/07/18 05:16 02/07/18 06:00 Temperature Pulse Rate 80 80 Respiratory Rate 22 Blood Pressure Pulse Oximetry Intake & Output 02/06/18 02/07/18 02/07/18 18:59 06:59 18:59 Output Total 4500 / 4500 Balance -4500 / -4500 Output: Urine 0 / 0 Hemodialysis Amount 4500 / 4500 Other: Date of Last Bowel Movement 02/06/18 02/06/18 # Bowel Movements 1 Result Diagrams: 02/07/18 06:10 02/07/18 06:10 Other Results: Laboratory Results - last 12 hr 02/06/18 02/07/1802/07/18 23:47 06:10 06:10 WBC 13.0 H RBC 3.87 L Hgb 11.0 L Hct 33.5 L MCV 86.6 MCH 28.4 MCHC 32.8 RDW 18.9 H Plt Count 141 L MPV 9.6 Neut % (Auto) 94.7 H Lymph % (Auto) 1.9 L [place] % (Auto) 3.3 Eos % (Auto) 0.0 Baso % (Auto) 0.1 Neut # (Auto) 12.3 H Lymph # (Auto) 0.2 L [place] # (Auto) 0.4 Eos # (Auto) 0.0 Baso # (Auto) 0.0 WBC Differential . Differential Comment Auto diff final PT 21.6 H INR 2.1 Sodium Potassium Chloride Carbon Dioxide Anion Gap BUN Creatinine Estimated GFR POC Glucose 129 H Random Glucose Calcium 02/07/18 02/07/18 06:10 06:44 WBC RBC Hgb Hct MCV MCH MCHC RDW Plt Count MPV Neut % (Auto) Lymph % (Auto) [place] % (Auto) Eos % (Auto) Baso % (Auto) Neut # (Auto) Lymph # (Auto) [place] # (Auto) Eos # (Auto) Baso # (Auto) WBC Differential Differential Comment PT INR Sodium 135 L Potassium 4.8 Chloride 93 L Carbon Dioxide 29.7 Anion Gap 12 BUN 89 H Creatinine 7.29 H Estimated GFR 7 L POC Glucose 199 H Random Glucose 148 H Calcium 9.4 Imaging: Abdomen X-Ray 01/23/18 23:05 CONCLUSION: 1. Nonobstructive bowel gas pattern. Chest CTA 01/30/18 00:00 CONCLUSION: 1. No evidence of pulmonary embolus. 2. Severe bilateral pulmonary parenchymal opacity with predominance at the dependent portions of the lungs. Difficult diagnosis includes pulmonary edema and infection. 3. Elongated lobulated nodular density in the right midlung following the major fissure likely represents loculated pleural effusion. 4. Enlarged pulmonary arteries suggesting pulmonary arterial hypertension. 5. Enlarged heart and small pericardial effusion. 6. Small left than right pleural effusions. 7. Mildly enlarged mediastinal lymph nodes, likely reactive. Chest X-Ray 02/04/18 00:00 CONCLUSION: 1. Patchy infiltrates bilaterally consistent with moderate pulmonary edema versus pneumonia. Clinical correlation is recommended. 2. Cardiomegaly. 3. Tiny bilateral pleural effusions. Objective Remarks: GENERAL: Patient is 72 yo on high flow oxygen. SKIN: Warm and dry. HEAD: Normocephalic. EYES: No scleral icterus. No injection or drainage. NECK: Supple, trachea midline. No JVD or lymphadenopathy. CARDIOVASCULAR: Regular rate and rhythm without murmurs, gallops, or rubs. RESPIRATORY: Breath sounds equal bilaterally. No accessory muscle use. Few coarse BS GASTROINTESTINAL: Abdomen soft, non-tender, nondistended. MUSCULOSKELETAL: No cyanosis, or edema. Neuro: Awake, alert Assessment and Plan - Assessment and Plan Plan: Active Problems: Acute respiratory failure CAD CHF Possible COPD Atrial Fibrillation with rapid ventricular response end-stage renal disease requiring hemodialysis Persistent hypotension secondary to poor cardiac output Neuro: Follow neuro status. Pain medications as needed. Monitor neuro status CV: Monitor HR and BP keep MAP>65mmHg Status post cardiac cath. Being followed by Dr. Weinberg. s/p ablation and micra placement 02/02/18 due to failure of medical management for rate control Check 2D echo evaluate right sided pressures On Lipitor 80mg qhs, Coumadin Pulmo: Wean down oxygen as mari keep sats >92% CT chest with no evidence of PE however did show emphysematous changes bilateral lower lobe consolidation changes as well as fluid in interlobar fissure on the right. Pulmonary arteries are enlarged with probable pulmonary hypertension. Continue with Bronchodilators, Solumederol 40mg Q12, On Symbicort. GI/liver: P.o. diet as tolerated Renal/: Monitor renal function, I/O's, avoid nephrotoxins Renal is following. s/p HD 02/06 with removal 4.5L. HD per renal ID: d/c Zosyn today( has been on Zosyn since 01/24) Monitor for signs of infections ( Fever, WBC) Endocrine: SSI ( high sale) for glycemic control, Levemir 12u BID Heme: Monitor CBC, Coags- INR 2.1 today Prophylaxis: Pepcid/SCDs. Anticoagulation with Coumadin. Level 3
[2018-02-07] MEDS: Insulin Detemir Inj 1,000 UNIT/10 ML Vial SQ SCH ×2 (09:16→22:23)
[2018-02-07] MEDS: MethylPREDNISolone Sod Succinate Inj 40 MG/ML Vial IV.PUSH SCH ×2 (09:17→22:23)
[2018-02-07] MEDS: Budesonide-Formoterol 160/4.5 MCG 6 GM Inhaler INH SCH ×2 (09:18→22:23)
[2018-02-07] MEDS: Morphine Inj 4 MG/ML Vial IV.PUSH PRN (09:18)
--- NOTE | 2018-02-07 11:34 | P.PNCA ---
Subjective Interval history: alert in nad Physical Exam Vital signs: Vital Signs 02/06/18 12:00 02/06/18 14:00 02/06/18 14:37 Temperature 97.9 F Pulse Rate 80 80 80 Respiratory Rate 21 18 Blood Pressure 119/60 Pulse Oximetry 02/06/18 16:00 02/06/18 18:00 02/06/18 20:00 Temperature 97.8 F Pulse Rate 80 80 80 Respiratory Rate 33 H Blood Pressure 114/75 Pulse Oximetry 87 L 02/06/18 20:15 02/06/18 20:30 02/06/18 20:34 Temperature Pulse Rate 80 80 80 Respiratory Rate 27 H 36 H 20 Blood Pressure 114/60 116/59 L Pulse Oximetry 92 L 90 L 92 L 02/06/18 20:45 02/06/18 21:00 02/06/18 21:15 Temperature Pulse Rate 80 80 80 Respiratory Rate 31 H 37 H 20 Blood Pressure 116/60 115/61 119/63 Pulse Oximetry 86 L 93 L 90 L 02/06/18 21:30 02/06/18 21:45 02/06/18 22:00 Temperature Pulse Rate 80 80 80 Respiratory Rate 35 H 35 H 25 H Blood Pressure 131/68 132/67 128/66 Pulse Oximetry 94 L 93 L 92 L 02/06/18 22:15 02/06/18 22:30 02/06/18 22:45 Temperature Pulse Rate 80 80 80 Respiratory Rate 25 H 24 26 H Blood Pressure 126/65 133/69 132/62 Pulse Oximetry 86 L 94 L 93 L 02/06/18 23:00 02/06/18 23:15 02/06/18 23:30 Temperature Pulse Rate 80 80 80 Respiratory Rate 21 19 26 H Blood Pressure 135/60 134/65 106/58 L Pulse Oximetry 95 88 L 94 L 02/06/18 23:45 02/07/18 00:00 02/07/18 00:31 Temperature 98.1 F Pulse Rate 80 80 80 Respiratory Rate 24 28 H 43 H Blood Pressure 119/62 130/69 118/57 L Pulse Oximetry 94 L 92 L 92 L 02/07/18 00:44 02/07/18 00:45 02/07/18 01:00 Temperature Pulse Rate 80 80 80 Respiratory Rate 18 29 H 25 H Blood Pressure 108/53 L 116/58 L Pulse Oximetry 94 L 98 02/07/18 01:15 02/07/18 01:30 02/07/18 01:45 Temperature Pulse Rate 80 80 80 Respiratory Rate 19 20 29 H Blood Pressure 125/57 L 120/55 L 120/55 L Pulse Oximetry 98 94 L 94 L 02/07/18 02:00 02/07/18 02:15 02/07/18 04:00 Temperature Pulse Rate 80 80 Respiratory Rate 17 13 20 Blood Pressure 120/58 L 123/58 L Pulse Oximetry 95 98 02/07/18 05:16 02/07/18 06:00 02/07/18 07:45 Temperature Pulse Rate 80 80 79 Respiratory Rate 22 18 Blood Pressure Pulse Oximetry 95 Intake & Output 02/06/18 02/07/18 02/07/18 18:59 06:59 18:59 Intake Total 360 / 360 Output Total 4500 / 4500 350 / 350 Balance -4500 / -4500 Weight 91.7 kg Intake: Oral 360 / 360 Output: Urine 0 / 0 350 / 350 Hemodialysis Amount 4500 / 4500 Other: Date of Last Bowel Movement 02/06/18 02/06/18 02/06/18 # Bowel Movements 1 1 Assessment and Plan - Assessment (1) Atrial fibrillation with rapid ventricular response Code(s): I48.91 - Unspecified atrial fibrillation Status: Acute (2) CHF (congestive heart failure) Code(s): I50.9 - Heart failure, unspecified Status: Acute (3) Chronic kidney disease with end stage renal failure on dialysis Code(s): N18.6 - End stage renal disease; Z99.2 - Dependence on renal dialysis Status: Acute (4) Atrial fibrillation with RVR Code(s): I48.91 - Unspecified atrial fibrillation Status: Acute (5) ESRD (end stage renal disease) on dialysis Code(s): N18.6 - End stage renal disease; Z99.2 - Dependence on renal dialysis Status: Acute - Plan 1.) Afib with rvr - s/p ablation and micra placement 02/02/18 due to failure of medical management for rate control, d/w patient, inr therapeutic, hgb stable, rate controlled 2.) CAD - continue, lipitor, coumadin at 3 mg qd, has hemoptyis which is improving, f/u inr and cbc in am (2) CHF (congestive heart failure) Qualifiers: Heart failure type: unspecified Heart failure chronicity: unspecified Qualified Code(s): I50.9 - Heart failure, unspecified
--- NOTE | 2018-02-07 14:04 | P.PNNP ---
Subjective Interval history: patient was seen and examined. Remains on high flow oxygen, FiO2 is 50 %. Extra dialysis is ordered for today. Physical Exam Vital signs: Vital Signs 02/06/18 14:00 02/06/18 14:37 02/06/18 16:00 Temperature Pulse Rate 80 80 80 Respiratory Rate 18 Blood Pressure Pulse Oximetry 02/06/18 18:00 02/06/18 20:00 02/06/18 20:15 Temperature 97.8 F Pulse Rate 80 80 80 Respiratory Rate 33 H 27 H Blood Pressure 114/75 114/60 Pulse Oximetry 87 L 92 L 02/06/18 20:30 02/06/18 20:34 02/06/18 20:45 Temperature Pulse Rate 80 80 80 Respiratory Rate 36 H 20 31 H Blood Pressure 116/59 L 116/60 Pulse Oximetry 90 L 92 L 86 L 02/06/18 21:00 02/06/18 21:15 02/06/18 21:30 Temperature Pulse Rate 80 80 80 Respiratory Rate 37 H 20 35 H Blood Pressure 115/61 119/63 131/68 Pulse Oximetry 93 L 90 L 94 L 02/06/18 21:45 02/06/18 22:00 02/06/18 22:15 Temperature Pulse Rate 80 80 80 Respiratory Rate 35 H 25 H 25 H Blood Pressure 132/67 128/66 126/65 Pulse Oximetry 93 L 92 L 86 L 02/06/18 22:30 02/06/18 22:45 02/06/18 23:00 Temperature Pulse Rate 80 80 80 Respiratory Rate 24 26 H 21 Blood Pressure 133/69 132/62 135/60 Pulse Oximetry 94 L 93 L 95 02/06/18 23:15 02/06/18 23:30 02/06/18 23:45 Temperature Pulse Rate 80 80 80 Respiratory Rate 19 26 H 24 Blood Pressure 134/65 106/58 L 119/62 Pulse Oximetry 88 L 94 L 94 L 02/07/18 00:00 02/07/18 00:31 02/07/18 00:44 Temperature 98.1 F Pulse Rate 80 80 80 Respiratory Rate 28 H 43 H 18 Blood Pressure 130/69 118/57 L Pulse Oximetry 92 L 92 L 02/07/18 00:45 02/07/18 01:00 02/07/18 01:15 Temperature Pulse Rate 80 80 80 Respiratory Rate 29 H 25 H 19 Blood Pressure 108/53 L 116/58 L 125/57 L Pulse Oximetry 94 L 98 98 02/07/18 01:30 02/07/18 01:45 02/07/18 02:00 Temperature Pulse Rate 80 80 80 Respiratory Rate 20 29 H 17 Blood Pressure 120/55 L 120/55 L 120/58 L Pulse Oximetry 94 L 94 L 95 02/07/18 02:15 02/07/18 04:00 02/07/18 05:16 Temperature Pulse Rate 80 80 Respiratory Rate 13 20 22 Blood Pressure 123/58 L Pulse Oximetry 98 02/07/18 06:00 02/07/18 07:45 02/07/18 11:38 Temperature Pulse Rate 80 79 79 Respiratory Rate 18 15 Blood Pressure Pulse Oximetry 95 Intake & Output 02/06/18 02/07/18 02/07/18 18:59 06:59 18:59 Intake Total 360 / 360 Output Total 4500 / 4500 350 / 350 Balance -4500 / -4500 10 Weight 91.7 kg Intake: Oral 360 / 360 Output: Urine 0 / 0 350 / 350 Hemodialysis Amount 4500 / 4500 Other: Date of Last Bowel Movement 02/06/18 02/06/18 02/06/18 # Bowel Movements 1 1 - Constitutional no acute distress, thin, chronically ill appearing - Routine HEENT Exam Head: Present: normocephalic, atraumatic Eye: Present: EOMI - Routine Neck Exam Absent: JVD - Routine Cardiovascular Exam Comments: paced rhythm. - Routine Abdominal Exam Present: soft, normoactive bowel sounds - Routine Extremities Exam Absent: edema - Routine Skin Exam Present: intact - Routine Neurological Exam Present: alert, oriented X3, CN II-XII intact Assessment and Plan - Assessment (1) ESRD (end stage renal disease) on dialysis Code(s): N18.6 - End stage renal disease; Z99.2 - Dependence on renal dialysis Status: Acute Plan: Dialysis again today to see if if fluid removal will improve hypoxia, so far it has not improved much. Monitor electrolytes intermittently. Avoid IVF administration. Protect left arm from procedures, has new AV access that is not mature. Will need to follow with vascular at a later date. PermCath in place for HD use. Phosphorus level has been acceptable without binder therapy. High protein diet with Supplements ordered. He has been losing weight, needs nutritional support. (2) Atrial fibrillation with RVR Code(s): I48.91 - Unspecified atrial fibrillation Status: Acute Plan: Improved, s/p AV gilbert ablation with pacemaker placement. On PO Amiodarone. Midodrine is ordered TID for hypotension. Cardiology following. Appreciate recommendations. (3) Hypoxia Code(s): R09.02 - Hypoxemia Status: Acute Plan: He is on high flow oxygen. Etiology is unclear. Discussed with Dr. Kessler, may have interstitial lung disease. We are aggressively removing fluid with HD. Pulmonary following. There is some history of occupational exposure to pulmonary toxins. (4) CHF (congestive heart failure) Code(s): I50.9 - Heart failure, unspecified Status: Acute Qualifiers: Heart failure type: unspecified Heart failure chronicity: unspecified Qualified Code(s): I50.9 - Heart failure, unspecified Plan: Stable. EF noted to be around 60%. Repeat echo is planned. Fluid removal with dialysis. (5) Anemia in CKD (chronic kidney disease) Code(s): N18.9 - Chronic kidney disease, unspecified; D63.1 - Anemia in chronic kidney disease Status: Acute Plan: On Epogen with dialysis. Hemoglobin is acceptable.
[2018-02-07] MEDS: Temazepam 15 MG Capsule PO PRN (22:23)
[2018-02-08 05:46] LABS: Baso % (Auto) 0.1 % (0.0-2.0); Hematocrit 32.6 % (39.0-51.0); Hemoglobin 10.6 gm/dL (13.0-17.0); Lymph # (Auto) 0.2 th/mm3 (1.0-4.8); Lymph % (Auto) 1.3 % (9.0-44.0); Mean Corpuscular HGB Conc 32.6 % (32.0-36.0); Mean Corpuscular Hemoglobin 28.3 pg (27.0-34.0); Mean Corpuscular Volume 86.7 fL (80.0-100.0); Mean Platelet Volume 9.7 fL (7.0-11.0); Mono # (Auto) 0.5 th/mm3 (0.0-0.9); Mono % (Auto) 3.5 % (0.0-8.0); Neut % (Auto) 95.1 % (16.0-70.0); Platelet Count 135 th/mm3 (150-450); Red Blood Count 3.76 mil/mm3 (4.50-5.90); Red Cell Distribution Width 18.7 % (11.6-17.2); White Blood Count 13.6 th/mm3 (4.0-11.0)
[2018-02-08 06:00] LABS: Calcium 8.8 mg/dL (8.5-10.1); Carbon Dioxide 31.3 meq/L (21.0-32.0); Potassium 4.7 meq/L (3.5-5.1)
[2018-02-08] MEDS: Insulin NovoLIN Regular Correctional Sugar Inj SQ SCH ×3 (06:55→18:32)
--- NOTE | 2018-02-08 08:15 | P.PNCC ---
Subjective Subjective Remarks/Hospital Course: This is a 72yM with history of ESRD on HD who was recently admitted last month for supraventricular tachycardia. It appears from the records that normal sinus rhythm was restored prior to discharge home. He re-presented to the hospital with atrial fibrillation with rapid ventricular response which has been poorly responsive to esmolol infusion. It is noted that there is still a shortage of diltiazem infusions, so none is available to place the patient on. Dr. Waters with cardiology was consulted, as was Dr. Weinberg. The patient has also had hypotension during this hospital stay with most blood pressure readings between 80-100 systolic. This morning, Bystolic was started and was given together with amiodarone 400mg and metoprolol 25mg po. Approximately 2 hours after this, his blood pressure dropped into the 60s and 70s systolic. I was consulted by Dr. Wilcox to evaluate and manage his hemodynamics in the setting of poorly-controlled atrial fibrillation and hypotension. The patient does complain of light-headedness and a little chest discomfort which is new since his blood pressure has dropped into the 70s. He denies any other complaints and tolerated breakfast this AM. ROS otherwise negative. troponins have been serially negative this admission. I performed bedside critical care echocardiography and compared this to images obtained from last hospital admission on 11/2017. Given the poorly controlled nature of the patient's rate, wall motion and accurate ejection fraction are difficult to assess with accuracy. It does appear that the patient has relatively preserved EF and at most only mildly depressed LVEF. Aortic valve is sclerotic but appears unchanged from prior echo which calculated the valve area at ~2cm. no pericardial effusion. IVC is dilated around 2cm without respiratory variation. heart rate on my evaluation is 121. 8/2: Critical care reconsulted by Dr. Weinberg for worsening respiratory failure. Patient dropped O2 sats to 84% on 6 L nasal cannula. When I evaluated patient he was resting in bed. Placed him on high flow nasal cannula 30 L/min 60% FiO2 with which his O2 sats came up to 90%. 01/30: Remains on high flow nasal cannula. CT chest negative for PE shows consolidation bilateral lower lobes and a loculated effusion on the right. Defer to pulmonary regarding further recommendations. 01/31: Remains on high flow nasal cannula. Being dialyzed currently. On 30 L/ min 60% FiO2. O2 sats 96%. Feels that he is breathing a little better. 02/01, 02/02: On high flow nasal cannula at 20 L/min 50% FiO2. Shortness of breath gradually improving. 02/03: On high flow nasal cannula 20 L/min 60% FiO2. Underwent mitral implantation and AV gilbert ablation yesterday by Dr. Weinberg. Sitting up in bed today. Appears comfortable not in any acute distress. 02/04 Patient 02/04 Patient is awake and alert on high flow oxygen 25L with 70% FIO2> Afebrile. For HD today 02/05 No events overnight. s/p HD yesterday with removal 5L. Afebrile. On 25L with FIO2 down to 50% 02/06 Patient remains on high flow oxygen with 25L 55%FIO2. Afebrile. 02/07 Patient s/p HD yesterday with removal 4.5L. Remains on high flow oxygen 25L with 50% FIO2. Afebrile. 02/08 Patient s/p HD yesterday with removal 3L. On high flow oxygen. Afebrile. Objective Vital Signs / I&O: Vital Signs 02/07/18 10:00 02/07/18 11:38 02/07/18 12:00 Temperature 98.0 F Pulse Rate 79 79 79 Respiratory Rate 15 23 Blood Pressure 124/77 Pulse Oximetry 88 L 02/07/18 14:00 02/07/18 15:40 02/07/18 16:00 Temperature 98.2 F Pulse Rate 79 80 80 Respiratory Rate 20 16 Blood Pressure 113/58 L Pulse Oximetry 95 02/07/18 18:00 02/07/18 19:00 02/07/18 19:15 Temperature Pulse Rate 80 80 80 Respiratory Rate 33 H 21 Blood Pressure 115/62 110/58 L Pulse Oximetry 88 L 89 L 02/07/18 19:19 02/07/18 19:30 02/07/18 19:45 Temperature Pulse Rate 20 L 80 80 Respiratory Rate 20 36 H 23 Blood Pressure 99/56 L 122/59 L Pulse Oximetry 95 94 L 89 L 02/07/18 20:00 02/07/18 20:15 02/07/18 20:30 Temperature 96.8 F L Pulse Rate 80 80 80 Respiratory Rate 17 18 26 H Blood Pressure 131/67 116/57 L 116/61 Pulse Oximetry 92 L 92 L 95 02/07/18 20:45 02/07/18 21:00 02/07/18 21:15 Temperature Pulse Rate 80 80 80 Respiratory Rate 23 26 H 22 Blood Pressure 123/64 121/63 127/62 Pulse Oximetry 90 L 89 L 94 L 02/07/18 21:30 02/07/18 21:45 02/07/18 22:00 Temperature Pulse Rate 80 80 80 Respiratory Rate 18 12 11 L Blood Pressure 120/60 115/55 L 113/56 L Pulse Oximetry 93 L 96 96 02/07/18 22:15 02/07/18 22:30 02/07/18 22:56 Temperature Pulse Rate 80 80 80 Respiratory Rate 12 20 19 Blood Pressure 95/54 L 105/59 L 123/85 Pulse Oximetry 98 92 L 86 L 02/07/18 23:00 02/07/18 23:18 02/07/18 23:30 Temperature Pulse Rate 80 80 80 Respiratory Rate 21 14 16 Blood Pressure 114/57 L 117/59 L Pulse Oximetry 91 L 95 02/08/18 00:00 02/08/18 00:31 02/08/18 01:00 Temperature Pulse Rate 80 80 80 Respiratory Rate 28 H 30 H 15 Blood Pressure 125/58 L 117/72 124/63 Pulse Oximetry 90 L 90 L 91 L 02/08/18 01:30 02/08/18 02:00 02/08/18 02:30 Temperature Pulse Rate 80 80 80 Respiratory Rate 16 13 15 Blood Pressure 123/59 L 120/56 L 109/55 L Pulse Oximetry 93 L 94 L 95 02/08/18 03:00 02/08/18 03:31 02/08/18 03:47 Temperature Pulse Rate 80 80 80 Respiratory Rate 13 12 16 Blood Pressure 105/56 L 126/58 L Pulse Oximetry 90 L 97 02/08/18 04:00 02/08/18 04:30 02/08/18 05:00 Temperature 97.9 F Pulse Rate 80 80 80 Respiratory Rate 16 13 12 Blood Pressure 113/63 115/57 L 115/57 L Pulse Oximetry 98 98 97 02/08/18 05:31 02/08/18 06:00 02/08/18 06:30 Temperature Pulse Rate 80 80 80 Respiratory Rate 15 12 14 Blood Pressure 124/62 135/63 119/57 L Pulse Oximetry 93 L 99 100 02/08/18 07:00 02/08/18 07:11 Temperature Pulse Rate 80 80 Respiratory Rate 15 22 Blood Pressure 136/64 Pulse Oximetry 96 89 L Intake & Output 02/07/18 02/08/18 02/08/18 18:59 06:59 18:59 Intake Total 300 / 300 Output Total 3000 / 3000 0 / 0 Balance -3000 / -3000 300 / 300 Weight 92 kg Intake: Oral 300 / 300 Output: Urine 0 / 0 0 / 0 Hemodialysis Amount 3000 / 3000 Other: Date of Last Bowel Movement 02/07/18 02/07/18 # Bowel Movements 1 Result Diagrams: 02/08/18 05:19 02/08/18 05:19 Other Results: Laboratory Results - last 12 hr 02/07/18 02/08/18 02/08/18 23:00 05:11 05:19 WBC 13.6 H RBC 3.76 L Hgb 10.6 L Hct 32.6 L MCV 86.7 MCH 28.3 MCHC 32.6 RDW 18.7 H Plt Count 135 L MPV 9.7 Neut % (Auto) 95.1 H Lymph % (Auto) 1.3 L [place] % (Auto) 3.5 Eos % (Auto) 0.0 Baso % (Auto) 0.1 Neut # (Auto) 13.0 H Lymph # (Auto) 0.2 L [place] # (Auto) 0.5 Eos # (Auto) 0.0 Baso # (Auto) 0.0 WBC Differential . Differential Comment Auto diff final PT 20.0 H INR 2.0 Sodium Potassium Chloride Carbon Dioxide Anion Gap BUN Creatinine Estimated GFR POC Glucose 249 H Random Glucose Calcium 02/08/18 02/08/18 05:19 06:51 WBC RBC Hgb Hct MCV MCH MCHC RDW Plt Count MPV Neut % (Auto) Lymph % (Auto) [place] % (Auto) Eos % (Auto) Baso % (Auto) Neut # (Auto) Lymph # (Auto) [place] # (Auto) Eos # (Auto) Baso # (Auto) WBC Differential Differential Comment PT INR Sodium 138 Potassium 4.7 Chloride 97 L Carbon Dioxide 31.3 Anion Gap 10 BUN 72 H Creatinine 5.93 H Estimated GFR 9 L POC Glucose 197 H Random Glucose 165 H Calcium 8.8 Imaging: Abdomen X-Ray 01/23/18 23:05 CONCLUSION: 1. Nonobstructive bowel gas pattern. Chest CTA 01/30/18 00:00 CONCLUSION: 1. No evidence of pulmonary embolus. 2. Severe bilateral pulmonary parenchymal opacity with predominance at the dependent portions of the lungs. Difficult diagnosis includes pulmonary edema and infection. 3. Elongated lobulated nodular density in the right midlung following the major fissure likely represents loculated pleural effusion. 4. Enlarged pulmonary arteries suggesting pulmonary arterial hypertension. 5. Enlarged heart and small pericardial effusion. 6. Small left than right pleural effusions. 7. Mildly enlarged mediastinal lymph nodes, likely reactive. Chest X-Ray 02/04/18 00:00 CONCLUSION: 1. Patchy infiltrates bilaterally consistent with moderate pulmonary edema versus pneumonia. Clinical correlation is recommended. 2. Cardiomegaly. 3. Tiny bilateral pleural effusions. Objective Remarks: GENERAL: Patient is 72 yo on high flow oxygen. SKIN: Warm and dry. HEAD: Normocephalic. EYES: No scleral icterus. No injection or drainage. NECK: Supple, trachea midline. No JVD or lymphadenopathy. CARDIOVASCULAR: Regular rate and rhythm without murmurs, gallops, or rubs. RESPIRATORY: Breath sounds equal bilaterally. No accessory muscle use. Few coarse BS GASTROINTESTINAL: Abdomen soft, non-tender, nondistended. MUSCULOSKELETAL: No cyanosis, or edema. Neuro: Awake, alert Assessment and Plan - Assessment and Plan Plan: Active Problems: Acute respiratory failure CAD CHF Possible COPD Atrial Fibrillation with rapid ventricular response end-stage renal disease requiring hemodialysis Persistent hypotension secondary to poor cardiac output Neuro: Follow neuro status. Pain medications as needed. Monitor neuro status CV: Monitor HR and BP keep MAP>65mmHg Status post cardiac cath. Being followed by Dr. Weinberg. s/p ablation and micra placement 02/02/18 due to failure of medical management for rate control Check 2D echo evaluate right sided pressures On Lipitor 80mg qhs, Coumadin Pulmo: Wean down oxygen as mari keep sats >92% CT chest with no evidence of PE however did show emphysematous changes bilateral lower lobe consolidation changes as well as fluid in interlobar fissure on the right. Pulmonary arteries are enlarged with probable pulmonary hypertension. Continue with Bronchodilators, Solumederol 40mg Q12, On Symbicort. GI/liver: P.o. diet as tolerated Renal/: Monitor renal function, I/O's, avoid nephrotoxins Renal is following. s/p HD 02/07 with removal 3 L. ID: Off abx s/p Zosyn 01/24- 02/07) Monitor for signs of infections ( Fever, WBC) Endocrine: SSI( high sale) for glycemic control, change Levemir 5u BID Heme: Monitor CBC, Coags- INR 2.0 today Prophylaxis: Pepcid/SCDs. Anticoagulation with Coumadin. Level 3
[2018-02-08] MEDS: Insulin Detemir Inj 1,000 UNIT/10 ML Vial SQ SCH ×2 (08:56→21:30)
[2018-02-08] MEDS: Budesonide-Formoterol 160/4.5 MCG 6 GM Inhaler INH SCH (08:57)
[2018-02-08] MEDS: MethylPREDNISolone Sod Succinate Inj 40 MG/ML Vial IV.PUSH SCH ×2 (08:58→21:40)
--- NOTE | 2018-02-08 11:41 | P.PNNP ---
Subjective Interval history: Had additional dialysis yesterday, with removal of 4.5 liters in UF, but there has been no improvement in hypoxia. Today he is on 55% oxygen by high flow NC. Physical Exam Vital signs: Vital Signs 02/07/18 11:38 02/07/18 12:00 02/07/18 14:00 Temperature 98.0 F Pulse Rate 79 79 79 Respiratory Rate 15 23 Blood Pressure 124/77 Pulse Oximetry 88 L 02/07/18 15:40 02/07/18 16:00 02/07/18 18:00 Temperature 98.2 F Pulse Rate 80 80 80 Respiratory Rate 20 16 Blood Pressure 113/58 L Pulse Oximetry 95 02/07/18 19:00 02/07/18 19:15 02/07/18 19:19 Temperature Pulse Rate 80 80 20 L Respiratory Rate 33 H 21 20 Blood Pressure 115/62 110/58 L Pulse Oximetry 88 L 89 L 95 02/07/18 19:30 02/07/18 19:45 02/07/18 20:00 Temperature 96.8 F L Pulse Rate 80 80 80 Respiratory Rate 36 H 23 17 Blood Pressure 99/56 L 122/59 L 131/67 Pulse Oximetry 94 L 89 L 92 L 02/07/18 20:15 02/07/18 20:30 02/07/18 20:45 Temperature Pulse Rate 80 80 80 Respiratory Rate 18 26 H 23 Blood Pressure 116/57 L 116/61 123/64 Pulse Oximetry 92 L 95 90 L 02/07/18 21:00 02/07/18 21:15 02/07/18 21:30 Temperature Pulse Rate 80 80 80 Respiratory Rate 26 H 22 18 Blood Pressure 121/63 127/62 120/60 Pulse Oximetry 89 L 94 L 93 L 02/07/18 21:45 02/07/18 22:00 02/07/18 22:15 Temperature Pulse Rate 80 80 80 Respiratory Rate 12 11 L 12 Blood Pressure 115/55 L 113/56 L 95/54 L Pulse Oximetry 96 96 98 02/07/18 22:30 02/07/18 22:56 02/07/18 23:00 Temperature Pulse Rate 80 80 80 Respiratory Rate 20 19 21 Blood Pressure 105/59 L 123/85 114/57 L Pulse Oximetry 92 L 86 L 91 L 02/07/18 23:18 02/07/18 23:30 02/08/18 00:00 Temperature Pulse Rate 80 80 80 Respiratory Rate 14 16 28 H Blood Pressure 117/59 L 125/58 L Pulse Oximetry 95 90 L 02/08/18 00:31 02/08/18 01:00 02/08/18 01:30 Temperature Pulse Rate 80 80 80 Respiratory Rate 30 H 15 16 Blood Pressure 117/72 124/63 123/59 L Pulse Oximetry 90 L 91 L 93 L 02/08/18 02:00 02/08/18 02:30 02/08/18 03:00 Temperature Pulse Rate 80 80 80 Respiratory Rate 13 15 13 Blood Pressure 120/56 L 109/55 L 105/56 L Pulse Oximetry 94 L 95 90 L 02/08/18 03:31 02/08/18 03:47 02/08/18 04:00 Temperature 97.9 F Pulse Rate 80 80 80 Respiratory Rate 12 16 16 Blood Pressure 126/58 L 113/63 Pulse Oximetry 97 98 02/08/18 04:30 02/08/18 05:00 02/08/18 05:31 Temperature Pulse Rate 80 80 80 Respiratory Rate 13 12 15 Blood Pressure 115/57 L 115/57 L 124/62 Pulse Oximetry 98 97 93 L 02/08/18 06:00 02/08/18 06:30 02/08/18 07:00 Temperature Pulse Rate 80 80 80 Respiratory Rate 12 14 15 Blood Pressure 135/63 119/57 L 136/64 Pulse Oximetry 99 100 96 02/08/18 07:11 02/08/18 08:00 02/08/18 10:00 Temperature Pulse Rate 80 80 80 Respiratory Rate 22 Blood Pressure Pulse Oximetry 89 L 94 L 02/08/18 11:20 Temperature Pulse Rate 80 Respiratory Rate 20 Blood Pressure Pulse Oximetry Intake & Output 02/07/18 02/08/18 02/08/18 18:59 06:59 18:59 Intake Total 300 / 300 Output Total 3000 / 3000 0 / 0 Balance -3000 / -3000 300 / 300 Weight 92 kg Intake: Oral 300 / 300 Output: Urine 0 / 0 0 / 0 Hemodialysis Amount 3000 / 3000 Other: Date of Last Bowel Movement 02/07/18 02/07/18 02/08/18 # Bowel Movements 1 Narrative: GENERAL: Frail, elderly. HEENT: PERRL CARDIOVASCULAR: Paced rhythm. RESPIRATORY: bilateral wheezes, rhonchi GASTROINTESTINAL: Abdomen soft, non-tender, nondistended. Hepatic and splenic margins not palpable. Decreased bowel sounds. MUSCULOSKELETAL: Extremities without clubbing, cyanosis, mild edema. No obvious deformities. Cath site without hematoma. NEUROLOGICAL: Awake and alert. No obvious cranial nerve deficits. Assessment and Plan - Assessment (1) ESRD (end stage renal disease) on dialysis Code(s): N18.6 - End stage renal disease; Z99.2 - Dependence on renal dialysis Status: Acute Plan: Fluid removal has not improved hypoxia. Monitor electrolytes intermittently. Avoid IVF administration. Protect left arm from procedures, has new AV access that is not mature. Will need to follow with vascular at a later date. PermCath in place for HD use. Phosphorus level has been acceptable without binder therapy. High protein diet with Supplements ordered. He has been losing weight, needs nutritional support. (2) Atrial fibrillation with RVR Code(s): I48.91 - Unspecified atrial fibrillation Status: Acute Plan: Improved, s/p AV gilbert ablation with pacemaker placement. On PO Amiodarone. Midodrine is ordered TID for hypotension. Cardiology following. Appreciate recommendations. (3) Hypoxia Code(s): R09.02 - Hypoxemia Status: Acute Plan: He is on high flow oxygen. Etiology is unclear. Patient may have interstitial lung disease. He is on Amiodarone, can it cause pulmonary toxicity in a few days /weeks? Pulmonary following. There is some history of occupational exposure to pulmonary toxins. (4) CHF (congestive heart failure) Code(s): I50.9 - Heart failure, unspecified Status: Acute Qualifiers: Heart failure type: unspecified Heart failure chronicity: unspecified Qualified Code(s): I50.9 - Heart failure, unspecified Plan: Stable. EF noted to be around 60%. Repeat echo is planned. Fluid removal with dialysis. (5) Anemia in CKD (chronic kidney disease) Code(s): N18.9 - Chronic kidney disease, unspecified; D63.1 - Anemia in chronic kidney disease Status: Acute Plan: On Epogen with dialysis. Hemoglobin is acceptable.
--- NOTE | 2018-02-08 13:12 | P.PNCA ---
Subjective Interval history: alert in nad, states not feeling well today Physical Exam Vital signs: Vital Signs 02/07/18 14:00 02/07/18 15:40 02/07/18 16:00 Temperature 98.2 F Pulse Rate 79 80 80 Respiratory Rate 20 16 Blood Pressure 113/58 L Pulse Oximetry 95 02/07/18 18:00 02/07/18 19:00 02/07/18 19:15 Temperature Pulse Rate 80 80 80 Respiratory Rate 33 H 21 Blood Pressure 115/62 110/58 L Pulse Oximetry 88 L 89 L 02/07/18 19:19 02/07/18 19:30 02/07/18 19:45 Temperature Pulse Rate 20 L 80 80 Respiratory Rate 20 36 H 23 Blood Pressure 99/56 L 122/59 L Pulse Oximetry 95 94 L 89 L 02/07/18 20:00 02/07/18 20:15 02/07/18 20:30 Temperature 96.8 F L Pulse Rate 80 80 80 Respiratory Rate 17 18 26 H Blood Pressure 131/67 116/57 L 116/61 Pulse Oximetry 92 L 92 L 95 02/07/18 20:45 02/07/18 21:00 02/07/18 21:15 Temperature Pulse Rate 80 80 80 Respiratory Rate 23 26 H 22 Blood Pressure 123/64 121/63 127/62 Pulse Oximetry 90 L 89 L 94 L 02/07/18 21:30 02/07/18 21:45 02/07/18 22:00 Temperature Pulse Rate 80 80 80 Respiratory Rate 18 12 11 L Blood Pressure 120/60 115/55 L 113/56 L Pulse Oximetry 93 L 96 96 02/07/18 22:15 02/07/18 22:30 02/07/18 22:56 Temperature Pulse Rate 80 80 80 Respiratory Rate 12 20 19 Blood Pressure 95/54 L 105/59 L 123/85 Pulse Oximetry 98 92 L 86 L 02/07/18 23:00 02/07/18 23:18 02/07/18 23:30 Temperature Pulse Rate 80 80 80 Respiratory Rate 21 14 16 Blood Pressure 114/57 L 117/59 L Pulse Oximetry 91 L 95 02/08/18 00:00 02/08/18 00:31 02/08/18 01:00 Temperature Pulse Rate 80 80 80 Respiratory Rate 28 H 30 H 15 Blood Pressure 125/58 L 117/72 124/63 Pulse Oximetry 90 L 90 L 91 L 02/08/18 01:30 02/08/18 02:00 02/08/18 02:30 Temperature Pulse Rate 80 80 80 Respiratory Rate 16 13 15 Blood Pressure 123/59 L 120/56 L 109/55 L Pulse Oximetry 93 L 94 L 95 02/08/18 03:00 02/08/18 03:31 02/08/18 03:47 Temperature Pulse Rate 80 80 80 Respiratory Rate 13 12 16 Blood Pressure 105/56 L 126/58 L Pulse Oximetry 90 L 97 02/08/18 04:00 02/08/18 04:30 02/08/18 05:00 Temperature 97.9 F Pulse Rate 80 80 80 Respiratory Rate 16 13 12 Blood Pressure 113/63 115/57 L 115/57 L Pulse Oximetry 98 98 97 02/08/18 05:31 02/08/18 06:00 02/08/18 06:30 Temperature Pulse Rate 80 80 80 Respiratory Rate 15 12 14 Blood Pressure 124/62 135/63 119/57 L Pulse Oximetry 93 L 99 100 02/08/18 07:00 02/08/18 07:11 02/08/18 08:00 Temperature Pulse Rate 80 80 80 Respiratory Rate 15 22 Blood Pressure 136/64 Pulse Oximetry 96 89 L 94 L 02/08/18 10:00 02/08/18 11:20 Temperature Pulse Rate 80 80 Respiratory Rate 20 Blood Pressure Pulse Oximetry Intake & Output 02/07/18 02/08/18 02/08/18 18:59 06:59 18:59 Intake Total 300 / 300 Output Total 3000 / 3000 0 / 0 Balance -3000 / -3000 300 / 300 Weight 92 kg Intake: Oral 300 / 300 Output: Urine 0 / 0 0 / 0 Hemodialysis Amount 3000 / 3000 Other: Date of Last Bowel Movement 02/07/18 02/07/18 02/08/18 # Bowel Movements 1 Assessment and Plan - Assessment (1) Atrial fibrillation with rapid ventricular response Code(s): I48.91 - Unspecified atrial fibrillation Status: Acute (2) CHF (congestive heart failure) Code(s): I50.9 - Heart failure, unspecified Status: Acute (3) Chronic kidney disease with end stage renal failure on dialysis Code(s): N18.6 - End stage renal disease; Z99.2 - Dependence on renal dialysis Status: Acute (4) Atrial fibrillation with RVR Code(s): I48.91 - Unspecified atrial fibrillation Status: Acute (5) ESRD (end stage renal disease) on dialysis Code(s): N18.6 - End stage renal disease; Z99.2 - Dependence on renal dialysis Status: Acute - Plan 1.) Afib with rvr - s/p ablation and micra placement 02/02/18 due to failure of medical management for rate control, d/w patient, inr therapeutic, hgb stable, rate controlled 2.) CAD - continue, lipitor, coumadin at 3 mg qd, has hemoptyis which is improving, f/u inr and cbc in am (2) CHF (congestive heart failure) Qualifiers: Heart failure type: unspecified Heart failure chronicity: unspecified Qualified Code(s): I50.9 - Heart failure, unspecified
[2018-02-08] MEDS: Senna/Docusate Sodium 8.6/50 MG Tablet PO SCH ×2 (17:13→21:31)
[2018-02-08] MEDS: Morphine Inj 4 MG/ML Vial IV.PUSH PRN (21:29)
[2018-02-09] MEDS: Insulin NovoLIN Regular Correctional Sugar Inj SQ SCH ×4 (00:34→18:03)
[2018-02-09] MEDS: Budesonide-Formoterol 160/4.5 MCG 6 GM Inhaler INH SCH ×3 (00:34→20:27)
[2018-02-09 05:06] LABS: Hematocrit 34.3 % (39.0-51.0); Lymph # (Auto) 0.2 th/mm3 (1.0-4.8); Mean Corpuscular HGB Conc 31.9 % (32.0-36.0); Mean Corpuscular Hemoglobin 28.4 pg (27.0-34.0); Mean Corpuscular Volume 88.9 fL (80.0-100.0); Mean Platelet Volume 9.8 fL (7.0-11.0); Mono # (Auto) 0.5 th/mm3 (0.0-0.9); Mono % (Auto) 3.3 % (0.0-8.0); Neut % (Auto) 95.7 % (16.0-70.0); Platelet Count 144 th/mm3 (150-450); Red Blood Count 3.86 mil/mm3 (4.50-5.90); Red Cell Distribution Width 19.8 % (11.6-17.2); White Blood Count 15.7 th/mm3 (4.0-11.0)
[2018-02-09 05:07] LABS: INR 2.4 Ratio; Prothrombin Time 24.1 sec (9.8-11.6)
[2018-02-09 05:25] LABS: Calcium 9.1 mg/dL (8.5-10.1); Carbon Dioxide 29.7 meq/L (21.0-32.0); Potassium 4.9 meq/L (3.5-5.1)
--- NOTE | 2018-02-09 08:08 | P.PNCC ---
Subjective Subjective Remarks/Hospital Course: This is a 72yM with history of ESRD on HD who was recently admitted last month for supraventricular tachycardia. It appears from the records that normal sinus rhythm was restored prior to discharge home. He re-presented to the hospital with atrial fibrillation with rapid ventricular response which has been poorly responsive to esmolol infusion. It is noted that there is still a shortage of diltiazem infusions, so none is available to place the patient on. Dr. Waters with cardiology was consulted, as was Dr. Weinberg. The patient has also had hypotension during this hospital stay with most blood pressure readings between 80-100 systolic. This morning, Bystolic was started and was given together with amiodarone 400mg and metoprolol 25mg po. Approximately 2 hours after this, his blood pressure dropped into the 60s and 70s systolic. I was consulted by Dr. Wilcox to evaluate and manage his hemodynamics in the setting of poorly-controlled atrial fibrillation and hypotension. The patient does complain of light-headedness and a little chest discomfort which is new since his blood pressure has dropped into the 70s. He denies any other complaints and tolerated breakfast this AM. ROS otherwise negative. troponins have been serially negative this admission. I performed bedside critical care echocardiography and compared this to images obtained from last hospital admission on 11/2017. Given the poorly controlled nature of the patient's rate, wall motion and accurate ejection fraction are difficult to assess with accuracy. It does appear that the patient has relatively preserved EF and at most only mildly depressed LVEF. Aortic valve is sclerotic but appears unchanged from prior echo which calculated the valve area at ~2cm. no pericardial effusion. IVC is dilated around 2cm without respiratory variation. heart rate on my evaluation is 121. 8/2: Critical care reconsulted by Dr. Weinberg for worsening respiratory failure. Patient dropped O2 sats to 84% on 6 L nasal cannula. When I evaluated patient he was resting in bed. Placed him on high flow nasal cannula 30 L/min 60% FiO2 with which his O2 sats came up to 90%. 01/30: Remains on high flow nasal cannula. CT chest negative for PE shows consolidation bilateral lower lobes and a loculated effusion on the right. Defer to pulmonary regarding further recommendations. 01/31: Remains on high flow nasal cannula. Being dialyzed currently. On 30 L/ min 60% FiO2. O2 sats 96%. Feels that he is breathing a little better. 02/01, 02/02: On high flow nasal cannula at 20 L/min 50% FiO2. Shortness of breath gradually improving. 02/03: On high flow nasal cannula 20 L/min 60% FiO2. Underwent mitral implantation and AV gilbert ablation yesterday by Dr. Weinberg. Sitting up in bed today. Appears comfortable not in any acute distress. 02/04 Patient 02/04 Patient is awake and alert on high flow oxygen 25L with 70% FIO2> Afebrile. For HD today 02/05 No events overnight. s/p HD yesterday with removal 5L. Afebrile. On 25L with FIO2 down to 50% 02/06 Patient remains on high flow oxygen with 25L 55%FIO2. Afebrile. 02/07 Patient s/p HD yesterday with removal 4.5L. Remains on high flow oxygen 25L with 50% FIO2. Afebrile. 02/08 Patient s/p HD yesterday with removal 3L. On high flow oxygen. Afebrile. 02/09 Patient remains on high flow oxygen 25L with 55% FIO2. Afebrile. For HD today Objective Vital Signs / I&O: Vital Signs 02/08/18 10:00 02/08/18 11:00 02/08/18 11:20 Temperature 98.1 F Pulse Rate 80 80 80 Respiratory Rate 27 H 20 Blood Pressure Pulse Oximetry 91 L 02/08/18 11:30 02/08/18 12:00 02/08/18 12:30 Temperature 97.7 F Pulse Rate 80 80 80 Respiratory Rate 11 L 18 24 Blood Pressure 128/60 127/61 124/64 Pulse Oximetry 96 88 L 88 L 02/08/18 13:03 02/08/18 13:30 02/08/18 14:00 Temperature Pulse Rate 80 80 80 Respiratory Rate 28 H 26 H 26 H Blood Pressure 122/58 L 120/56 L 110/56 L Pulse Oximetry 77 L 87 L 88 L 02/08/18 14:30 02/08/18 15:01 02/08/18 15:25 Temperature Pulse Rate 80 80 80 Respiratory Rate 35 H 33 H 26 H Blood Pressure 121/56 L 120/55 L Pulse Oximetry 83 L 85 L 02/08/18 15:30 02/08/18 16:00 02/08/18 16:30 Temperature 98.1 F Pulse Rate 80 80 80 Respiratory Rate 36 H 21 25 H Blood Pressure 129/58 L 134/60 121/58 L Pulse Oximetry 85 L 92 L 95 02/08/18 17:00 02/08/18 17:30 02/08/18 18:00 Temperature Pulse Rate 80 80 80 Respiratory Rate 11 L 14 26 H Blood Pressure 126/58 L 116/58 L Pulse Oximetry 94 L 97 92 L 02/08/18 18:01 02/08/18 18:30 02/08/18 19:00 Temperature Pulse Rate 80 80 79 Respiratory Rate 18 25 H 21 Blood Pressure 116/57 L 123/70 122/58 L Pulse Oximetry 93 L 92 L 90 L 02/08/18 19:30 02/08/18 20:00 02/08/18 20:30 Temperature Pulse Rate 79 80 80 Respiratory Rate 31 H 28 H 27 H Blood Pressure 120/56 L 128/60 129/60 Pulse Oximetry 91 L 89 L 02/08/18 21:00 02/08/18 21:30 02/08/18 21:54 Temperature Pulse Rate 80 80 80 Respiratory Rate 27 H 35 H 24 Blood Pressure 127/60 145/66 H Pulse Oximetry 90 L 90 L 02/08/18 22:00 02/08/18 22:30 02/08/18 23:01 Temperature Pulse Rate 80 80 80 Respiratory Rate 21 27 H 21 Blood Pressure 130/63 120/61 131/74 Pulse Oximetry 93 L 91 L 84 L 02/08/18 23:30 02/08/18 23:40 02/08/18 23:45 Temperature Pulse Rate 80 80 Respiratory Rate 22 24 Blood Pressure 119/56 L Pulse Oximetry 88 L 92 L 02/09/18 00:00 02/09/18 00:30 02/09/18 01:00 Temperature Pulse Rate 80 80 80 Respiratory Rate 16 11 L 12 Blood Pressure 123/58 L 122/58 L 124/64 Pulse Oximetry 90 L 95 96 02/09/18 01:30 02/09/18 02:00 02/09/18 02:30 Temperature Pulse Rate 80 80 80 Respiratory Rate 11 L 15 11 L Blood Pressure 125/61 125/63 134/63 Pulse Oximetry 95 91 L 94 L 02/09/18 03:00 02/09/18 03:21 02/09/18 03:30 Temperature Pulse Rate 79 79 79 Respiratory Rate 22 24 34 H Blood Pressure 123/57 L 136/69 Pulse Oximetry 91 L 90 L 02/09/18 04:00 02/09/18 04:30 02/09/18 06:00 Temperature Pulse Rate 79 79 80 Respiratory Rate 31 H 24 Blood Pressure 146/70 H 149/70 H Pulse Oximetry 83 L 91 L 02/09/18 07:00 Temperature Pulse Rate 80 Respiratory Rate 18 Blood Pressure Pulse Oximetry Intake & Output 02/08/18 02/09/18 02/09/18 18:59 06:59 18:59 Output Total 0 / 0 275 / 275 Balance 0 / 0 -275 / -275 Weight 90.5 kg Output: Urine 0 / 0 275 / 275 Other: Date of Last Bowel Movement 02/08/18 02/09/18 # Bowel Movements 1 Result Diagrams: 02/09/18 04:15 02/09/18 04:15 Other Results: Laboratory Results - last 12 hr 02/08/18 02/09/18 02/09/18 23:29 04:15 04:15 WBC 15.7 H RBC 3.86 L Hgb 11.0 L Hct 34.3 L MCV 88.9 MCH 28.4 MCHC 31.9 L RDW 19.8 H Plt Count 144 L MPV 9.8 Neut % (Auto) 95.7 H Lymph % (Auto) 1.0 L [place] % (Auto) 3.3 Eos % (Auto) 0.0 Baso % (Auto) 0.0 Neut # (Auto) 15.0 H Lymph # (Auto) 0.2 L [place] # (Auto) 0.5 Eos # (Auto) 0.0 Baso # (Auto) 0.0 WBC Differential . Differential Comment Auto diff final PT 24.1 H INR 2.4 Sodium Potassium Chloride Carbon Dioxide Anion Gap BUN Creatinine Estimated GFR POC Glucose 259 H Random Glucose Calcium 02/09/18 02/09/18 04:15 06:11 WBC RBC Hgb Hct MCV MCH MCHC RDW Plt Count MPV Neut % (Auto) Lymph % (Auto) [place] % (Auto) Eos % (Auto) Baso % (Auto) Neut # (Auto) Lymph # (Auto) [place] # (Auto) Eos # (Auto) Baso # (Auto) WBC Differential Differential Comment PT INR Sodium 134 L Potassium 4.9 Chloride 92 L Carbon Dioxide 29.7 Anion Gap 12 BUN 111 H Creatinine 7.46 H Estimated GFR 7 L POC Glucose 271 H Random Glucose 225 H Calcium 9.1 Imaging: Abdomen X-Ray 01/23/18 23:05 CONCLUSION: 1. Nonobstructive bowel gas pattern. Chest CTA 01/30/18 00:00 CONCLUSION: 1. No evidence of pulmonary embolus. 2. Severe bilateral pulmonary parenchymal opacity with predominance at the dependent portions of the lungs. Difficult diagnosis includes pulmonary edema and infection. 3. Elongated lobulated nodular density in the right midlung following the major fissure likely represents loculated pleural effusion. 4. Enlarged pulmonary arteries suggesting pulmonary arterial hypertension. 5. Enlarged heart and small pericardial effusion. 6. Small left than right pleural effusions. 7. Mildly enlarged mediastinal lymph nodes, likely reactive. Chest X-Ray 02/04/18 00:00 CONCLUSION: 1. Patchy infiltrates bilaterally consistent with moderate pulmonary edema versus pneumonia. Clinical correlation is recommended. 2. Cardiomegaly. 3. Tiny bilateral pleural effusions. Objective Remarks: GENERAL: Patient is 72 yo on high flow oxygen. SKIN: Warm and dry. HEAD: Normocephalic. EYES: No scleral icterus. No injection or drainage. NECK: Supple, trachea midline. No JVD or lymphadenopathy. CARDIOVASCULAR: Regular rate and rhythm without murmurs, gallops, or rubs. RESPIRATORY: Breath sounds equal bilaterally. No accessory muscle use. Few coarse BS GASTROINTESTINAL: Abdomen soft, non-tender, nondistended. MUSCULOSKELETAL: No cyanosis, or edema. Neuro: Awake, alert Assessment and Plan - Assessment and Plan Plan: Active Problems: Acute respiratory failure CAD CHF Possible COPD Atrial Fibrillation with rapid ventricular response end-stage renal disease requiring hemodialysis Persistent hypotension secondary to poor cardiac output Neuro: Follow neuro status. Pain medications as needed. Monitor neuro status CV: Monitor HR and BP keep MAP>65mmHg Status post cardiac cath. Being followed by Dr. Weinberg. s/p ablation and micra placement 02/02/18 due to failure of medical management for rate control Check 2D echo evaluate right sided pressures On Lipitor 80mg qhs, Coumadin Pulmo: Wean down oxygen as mari keep sats >92% CT chest with no evidence of PE however did show emphysematous changes bilateral lower lobe consolidation changes as well as fluid in interlobar fissure on the right. Pulmonary arteries are enlarged with probable pulmonary hypertension. Continue with Bronchodilators, Solumederol 40mg Q12, On Symbicort. Check CXR GI/liver: P.o. diabetic/renal diet Renal/: Monitor renal function, I/O's, avoid nephrotoxins Renal is following. s/p HD 02/07 with removal 3 L. For HD today ID: Off abx s/p Zosyn 01/24- 02/07) Monitor for signs of infections ( Fever, WBC) Endocrine: SSI( high sale) for glycemic control, Levemir 5u BID Heme: Monitor CBC, Coags- INR 2.4 today Prophylaxis: Pepcid/SCDs. Anticoagulation with Coumadin. Level 3
--- NOTE | 2018-02-09 08:24 | ECHRPT ---
Indication: SHORTNESS OF BREATH, EVALUATE RT SIDED PRESSURES, ?PULM HYPTN CONCLUSIONS The left ventricular systolic function is normal with an estimated ejection fraction in the range of 60-65%. Normal left ventricular size. Mild concentric left ventricular hypertrophy. The right ventricle is moderately dilated. The right atrial size is ggqfffot-[id number]-lffpffok dilated. Mild aortic valve regurgitation. Aortic valve sclerosis is present. There is moderate tricuspid regurgitation. The estimated pulmonary arterial pressure is 66.9 mmHg. There is estimated weaywmbn-aa-kuwowt pulmonary hypertension present (range 60-70 mmHg). Mild pulmonary valve regurgitation. BP: / HR: Rhythm: Sinus MEASUREMENTS (Male / Female) Normal Values Technical Quality:Fair 2D ECHO LV Diastolic Diameter PLAX 4.7 cm 4.2 - 5.9 / 3.9 - 5.3 cm LV Systolic Diameter PLAX 3.5 cm IVS Diastolic Thickness 1.4 cm 0.6 - 1.0 / 0.6 - 0.9 cm LVPW Diastolic Thickness 1.4 cm 0.6 - 1.0 / 0.6 - 0.9 cm LV Relative Wall Thickness 0.6 RV Internal Dim ED PLAX 3.6 cm LVOT Diameter 2.7 cm Aortic Root Diameter 4.3 cm LA Systolic Diameter LX 3.2 cm 3.0 - 4.0 / 2.7 - 3.8 cm DOPPLER TR Peak Velocity 377.0 cm/s TR Peak Gradient 56.9 mmHg Right Atrial Pressure 10.0 mmHg Pulmonary Artery Systolic Pressu 66.9 mmHg Right Ventricular Systolic Press 66.9 mmHg PV Peak Velocity 58.7 cm/s PV Peak Gradient 1.4 mmHg FINDINGS LEFT VENTRICLE Normal left ventricular size. Mild concentric left ventricular hypertrophy. The left ventricular systolic function is normal with an estimated ejection fraction in the range of 60-65%. RIGHT VENTRICLE The right ventricle is moderately dilated. LEFT ATRIUM The left atrial size is normal. RIGHT ATRIUM The right atrial size is dqlapzxr-cr-hfsgjsfc dilated. AORTIC VALVE Mild aortic valve regurgitation. Aortic valve sclerosis is present. TRICUSPID VALVE There is moderate tricuspid regurgitation. The estimated pulmonary arterial pressure is 66.9 mmHg. There is estimated bfzbonjw-tb-avgunj pulmonary hypertension present (range 60-70 mmHg). PULMONARY VALVE Mild pulmonary valve regurgitation. VESSELS There is less than 50% respiratory change in dimension of the inferior vena cava (abnormal). PERICARDIUM No pericardial effusion. Erich Park MD (Electronically Signed) Final Date:09 February 2018 08:23
--- NOTE | 2018-02-09 08:44 | P.PN ---
Subjective Interval history: ALERT ON HIGH FLOW NASAL O2 NAD Physical Exam Vital signs: Vital Signs 02/08/18 10:00 02/08/18 11:00 02/08/18 11:20 Temperature 98.1 F Pulse Rate 80 80 80 Respiratory Rate 27 H 20 Blood Pressure Pulse Oximetry 91 L 02/08/18 11:30 02/08/18 12:00 02/08/18 12:30 Temperature 97.7 F Pulse Rate 80 80 80 Respiratory Rate 11 L 18 24 Blood Pressure 128/60 127/61 124/64 Pulse Oximetry 96 88 L 88 L 02/08/18 13:03 02/08/18 13:30 02/08/18 14:00 Temperature Pulse Rate 80 80 80 Respiratory Rate 28 H 26 H 26 H Blood Pressure 122/58 L 120/56 L 110/56 L Pulse Oximetry 77 L 87 L 88 L 02/08/18 14:30 02/08/18 15:01 02/08/18 15:25 Temperature Pulse Rate 80 80 80 Respiratory Rate 35 H 33 H 26 H Blood Pressure 121/56 L 120/55 L Pulse Oximetry 83 L 85 L 02/08/18 15:30 02/08/18 16:00 02/08/18 16:30 Temperature 98.1 F Pulse Rate 80 80 80 Respiratory Rate 36 H 21 25 H Blood Pressure 129/58 L 134/60 121/58 L Pulse Oximetry 85 L 92 L 95 02/08/18 17:00 02/08/18 17:30 02/08/18 18:00 Temperature Pulse Rate 80 80 80 Respiratory Rate 11 L 14 26 H Blood Pressure 126/58 L 116/58 L Pulse Oximetry 94 L 97 92 L 02/08/18 18:01 02/08/18 18:30 02/08/18 19:00 Temperature Pulse Rate 80 80 79 Respiratory Rate 18 25 H 21 Blood Pressure 116/57 L 123/70 122/58 L Pulse Oximetry 93 L 92 L 90 L 02/08/18 19:30 02/08/18 20:00 02/08/18 20:30 Temperature Pulse Rate 79 80 80 Respiratory Rate 31 H 28 H 27 H Blood Pressure 120/56 L 128/60 129/60 Pulse Oximetry 91 L 89 L 02/08/18 21:00 02/08/18 21:30 02/08/18 21:54 Temperature Pulse Rate 80 80 80 Respiratory Rate 27 H 35 H 24 Blood Pressure 127/60 145/66 H Pulse Oximetry 90 L 90 L 02/08/18 22:00 02/08/18 22:30 02/08/18 23:01 Temperature Pulse Rate 80 80 80 Respiratory Rate 21 27 H 21 Blood Pressure 130/63 120/61 131/74 Pulse Oximetry 93 L 91 L 84 L 02/08/18 23:30 02/08/18 23:40 02/08/18 23:45 Temperature Pulse Rate 80 80 Respiratory Rate 22 24 Blood Pressure 119/56 L Pulse Oximetry 88 L 92 L 02/09/18 00:00 02/09/18 00:30 02/09/18 01:00 Temperature Pulse Rate 80 80 80 Respiratory Rate 16 11 L 12 Blood Pressure 123/58 L 122/58 L 124/64 Pulse Oximetry 90 L 95 96 02/09/18 01:30 02/09/18 02:00 02/09/18 02:30 Temperature Pulse Rate 80 80 80 Respiratory Rate 11 L 15 11 L Blood Pressure 125/61 125/63 134/63 Pulse Oximetry 95 91 L 94 L 02/09/18 03:00 02/09/18 03:21 02/09/18 03:30 Temperature Pulse Rate 79 79 79 Respiratory Rate 22 24 34 H Blood Pressure 123/57 L 136/69 Pulse Oximetry 91 L 90 L 02/09/18 04:00 02/09/18 04:30 02/09/18 06:00 Temperature Pulse Rate 79 79 80 Respiratory Rate 31 H 24 Blood Pressure 146/70 H 149/70 H Pulse Oximetry 83 L 91 L 02/09/18 07:00 Temperature Pulse Rate 80 Respiratory Rate 18 Blood Pressure Pulse Oximetry Intake & Output 02/08/18 02/09/18 02/09/18 18:59 06:59 18:59 Output Total 0 / 0 275 / 275 Balance 0 / 0 -275 / -275 Weight 90.5 kg Output: Urine 0 / 0 275 / 275 Other: Date of Last Bowel Movement 02/08/18 02/09/18 # Bowel Movements 1 Narrative: GENERAL: Frail, elderly. HEENT: PERRL CARDIOVASCULAR: Paced rhythm. RESPIRATORY: bilateral wheezes, rhonchi GASTROINTESTINAL: Abdomen soft, non-tender, nondistended. Hepatic and splenic margins not palpable. Decreased bowel sounds. MUSCULOSKELETAL: Extremities without clubbing, cyanosis, mild edema. No obvious deformities. Cath site without hematoma. NEUROLOGICAL: Awake and alert. No obvious cranial nerve deficits. Results - Labs CBC & Chem 7: 02/09/18 04:15 02/09/18 04:15 Laboratory Results - last 24 hr 02/08/18 02/08/18 02/08/18 08:54 11:53 18:15 WBC RBC Hgb Hct MCV MCH MCHC RDW Plt Count MPV Neut % (Auto) Lymph % (Auto) [place] % (Auto) Eos % (Auto) Baso % (Auto) Neut # (Auto) Lymph # (Auto) [place] # (Auto) Eos # (Auto) Baso # (Auto) WBC Differential Differential Comment PT INR Sodium Potassium Chloride Carbon Dioxide Anion Gap BUN Creatinine Estimated GFR POC Glucose 276 H 245 H 317 H Random Glucose Calcium 02/08/18 02/09/18 02/09/18 23:29 04:15 04:15 WBC 15.7 H RBC 3.86 L Hgb 11.0 L Hct 34.3 L MCV 88.9 MCH 28.4 MCHC 31.9 L RDW 19.8 H Plt Count 144 L MPV 9.8 Neut % (Auto) 95.7 H Lymph % (Auto) 1.0 L [place] % (Auto) 3.3 Eos % (Auto) 0.0 Baso % (Auto) 0.0 Neut # (Auto) 15.0 H Lymph # (Auto) 0.2 L [place] # (Auto) 0.5 Eos # (Auto) 0.0 Baso # (Auto) 0.0 WBC Differential . Differential Comment Auto diff final PT 24.1 H INR 2.4 Sodium Potassium Chloride Carbon Dioxide Anion Gap BUN Creatinine Estimated GFR POC Glucose 259 H Random Glucose Calcium 02/09/18 02/09/18 04:15 06:11 WBC RBC Hgb Hct MCV MCH MCHC RDW Plt Count MPV Neut % (Auto) Lymph % (Auto) [place] % (Auto) Eos % (Auto) Baso % (Auto) Neut # (Auto) Lymph # (Auto) [place] # (Auto) Eos # (Auto) Baso # (Auto) WBC Differential Differential Comment PT INR Sodium 134 L Potassium 4.9 Chloride 92 L Carbon Dioxide 29.7 Anion Gap 12 BUN 111 H Creatinine 7.46 H Estimated GFR 7 L POC Glucose 271 H Random Glucose 225 H Calcium 9.1 Assessment and Plan - Plan RESPIRATORY FAILURE, IMPROVING RENAL FAILURE ? COPD Chest pain CHF POST AV NODE ABLATION PULM HTN PLAN O2 NEEDED BRONCHODILATOR THERAPY INCREASE ACTIVITY taper steroids THERAPY FOR PAH
--- NOTE | 2018-02-09 09:15 | XR ---
EXAM DATE: 02/09/2018 8:28 AM EDT AGE/SEX: 72 years / Male INDICATIONS: Short of breath. CLINICAL DATA: This is the patient's subsequent encounter. Patient reports that signs and symptoms h ave been present for 3 weeks and indicates a pain score of 0/10. MEDICAL/SURGICAL HISTORY: . Hypertension. Chronic obstructive pulmonary disease. Congestive hea rt failure. A-fib. . Central line. COMPARISON: [facility], CHEST 1V SINGLE AP, 02/04/2018. . FINDINGS: Stable right IJ tunneled dialysis catheter. Diffuse interstitial prominence with minimal airspace dis ease at the right lung base. Cardiac fluid is mildly enlarged and central pulmonary vascularity is in distinct. Bony thorax is intact. CONCLUSION: 1. Cardiomegaly with interstitial edema. 2. Mild airspace disease in the right lung base, presumably atelectasis. Electronically signed by: Usama Cobian MD 02/09/2018 9:14 AM EDT
[2018-02-09] MEDS: MethylPREDNISolone Sod Succinate Inj 40 MG/ML Vial IV.PUSH SCH ×2 (09:37→22:05)
[2018-02-09] MEDS: Insulin Detemir Inj 1,000 UNIT/10 ML Vial SQ SCH ×2 (09:37→20:26)
[2018-02-09] MEDS: Senna/Docusate Sodium 8.6/50 MG Tablet PO SCH ×2 (09:38→20:27)
--- NOTE | 2018-02-09 11:30 | P.PNNP ---
Subjective Interval history: He is awake, alert, not in distress. Seen during dialysis. <Jyoti Ceron - Last Filed: 02/09/18 11:26> Physical Exam Vital signs: Vital Signs 02/08/18 11:30 02/08/18 12:00 02/08/18 12:30 Temperature 97.7 F Pulse Rate 80 80 80 Respiratory Rate 11 L 18 24 Blood Pressure 128/60 127/61 124/64 Pulse Oximetry 96 88 L 88 L 02/08/18 13:03 02/08/18 13:30 02/08/18 14:00 Temperature Pulse Rate 80 80 80 Respiratory Rate 28 H 26 H 26 H Blood Pressure 122/58 L 120/56 L 110/56 L Pulse Oximetry 77 L 87 L 88 L 02/08/18 14:30 02/08/18 15:01 02/08/18 15:25 Temperature Pulse Rate 80 80 80 Respiratory Rate 35 H 33 H 26 H Blood Pressure 121/56 L 120/55 L Pulse Oximetry 83 L 85 L 02/08/18 15:30 02/08/18 16:00 02/08/18 16:30 Temperature 98.1 F Pulse Rate 80 80 80 Respiratory Rate 36 H 21 25 H Blood Pressure 129/58 L 134/60 121/58 L Pulse Oximetry 85 L 92 L 95 02/08/18 17:00 02/08/18 17:30 02/08/18 18:00 Temperature Pulse Rate 80 80 80 Respiratory Rate 11 L 14 26 H Blood Pressure 126/58 L 116/58 L Pulse Oximetry 94 L 97 92 L 02/08/18 18:01 02/08/18 18:30 02/08/18 19:00 Temperature Pulse Rate 80 80 79 Respiratory Rate 18 25 H 21 Blood Pressure 116/57 L 123/70 122/58 L Pulse Oximetry 93 L 92 L 90 L 02/08/18 19:30 02/08/18 20:00 02/08/18 20:30 Temperature Pulse Rate 79 80 80 Respiratory Rate 31 H 28 H 27 H Blood Pressure 120/56 L 128/60 129/60 Pulse Oximetry 91 L 89 L 02/08/18 21:00 02/08/18 21:30 02/08/18 21:54 Temperature Pulse Rate 80 80 80 Respiratory Rate 27 H 35 H 24 Blood Pressure 127/60 145/66 H Pulse Oximetry 90 L 90 L 02/08/18 22:00 02/08/18 22:30 02/08/18 23:01 Temperature Pulse Rate 80 80 80 Respiratory Rate 21 27 H 21 Blood Pressure 130/63 120/61 131/74 Pulse Oximetry 93 L 91 L 84 L 02/08/18 23:30 02/08/18 23:40 02/08/18 23:45 Temperature Pulse Rate 80 80 Respiratory Rate 22 24 Blood Pressure 119/56 L Pulse Oximetry 88 L 92 L 02/09/18 00:00 02/09/18 00:30 02/09/18 01:00 Temperature Pulse Rate 80 80 80 Respiratory Rate 16 11 L 12 Blood Pressure 123/58 L 122/58 L 124/64 Pulse Oximetry 90 L 95 96 02/09/18 01:30 02/09/18 02:00 02/09/18 02:30 Temperature Pulse Rate 80 80 80 Respiratory Rate 11 L 15 11 L Blood Pressure 125/61 125/63 134/63 Pulse Oximetry 95 91 L 94 L 02/09/18 03:00 02/09/18 03:21 02/09/18 03:30 Temperature Pulse Rate 79 79 79 Respiratory Rate 22 24 34 H Blood Pressure 123/57 L 136/69 Pulse Oximetry 91 L 90 L 02/09/18 04:00 02/09/18 04:30 02/09/18 06:00 Temperature Pulse Rate 79 79 80 Respiratory Rate 31 H 24 Blood Pressure 146/70 H 149/70 H Pulse Oximetry 83 L 91 L 02/09/18 07:00 02/09/18 08:00 02/09/18 10:00 Temperature 98.2 F Pulse Rate 80 80 80 Respiratory Rate 18 25 H Blood Pressure 126/63 Pulse Oximetry 100 02/09/18 11:00 Temperature Pulse Rate 80 Respiratory Rate 18 Blood Pressure Pulse Oximetry Intake & Output 02/08/18 02/09/18 02/09/18 18:59 06:59 18:59 Output Total 0 / 0 275 / 275 Balance 0 / 0 -275 / -275 Weight 90.5 kg Output: Urine 0 / 0 275 / 275 Other: Date of Last Bowel Movement 02/08/18 02/09/18 02/09/18 # Bowel Movements 1 - Constitutional no acute distress, chronically ill appearing, cooperative - Routine HEENT Exam Head: Present: normocephalic Eye: Present: EOMI - Routine Neck Exam Present: supple, full ROM - Routine Respiratory Exam Present: CTA bilaterally. Absent: accessory muscle use - Routine Cardiovascular Exam Present: RRR, S1, S2 Comments: paced - Routine Abdominal Exam Present: soft, normoactive bowel sounds - Routine Extremities Exam Present: full ROM, pulses intact. Absent: edema - Routine Skin Exam Present: intact, dry, warm - Routine Neurological Exam Present: alert, oriented X3, CN II-XII intact - Detailed Neurological Exam: Coma Scale Eye Opening: Spontaneous Verbal Response: Oriented Motor Response: Obey commands [place] Coma Scale Total: 15 - Routine Psychiatric Exam Present: normal affect, normal thought process <Jyoti Ceron - Last Filed: 02/09/18 11:26> Vital signs: Vital Signs 02/09/18 10:00 02/09/18 11:00 02/09/18 12:00 Temperature 97.6 F Pulse Rate 80 80 80 Respiratory Rate 18 33 H Blood Pressure 126/59 L Pulse Oximetry 89 L 02/09/18 14:00 02/09/18 14:52 02/09/18 16:00 Temperature 98.0 F Pulse Rate 80 80 80 Respiratory Rate 18 24 Blood Pressure 102/51 L Pulse Oximetry 87 L 02/09/18 18:00 02/09/18 19:34 02/09/18 20:00 Temperature 98.5 F Pulse Rate 80 80 80 Respiratory Rate 20 29 H Blood Pressure 97/55 L Pulse Oximetry 90 L 90 L 02/09/18 22:00 02/09/18 23:39 02/10/18 00:00 Temperature 98.6 F Pulse Rate 80 80 80 Respiratory Rate 18 15 Blood Pressure 101/56 L Pulse Oximetry 95 02/10/18 02:00 02/10/18 04:00 02/10/18 06:00 Temperature 98.6 F Pulse Rate 80 80 80 Respiratory Rate 12 Blood Pressure 102/55 L Pulse Oximetry 95 02/10/18 07:26 Temperature Pulse Rate 80 Respiratory Rate 17 Blood Pressure Pulse Oximetry 95 Intake & Output 02/09/18 02/10/18 02/10/18 18:59 06:59 18:59 Intake Total 720 / 720 480 / 480 Output Total 3200 / 3200 0 / 0 Balance -2480 / -2480 480 / 480 Weight 89.5 kg Intake: Oral 720 / 720 480 / 480 Output: Urine 200 / 200 0 / 0 Hemodialysis Amount 3000 / 3000 Other: # Voids 1 Date of Last Bowel Movement 02/09/18 02/10/18 # Bowel Movements 1 3 <Eduardo Salvador - Last Filed: 02/10/18 08:07> Assessment and Plan - Assessment (1) ESRD (end stage renal disease) on dialysis Code(s): N18.6 - End stage renal disease; Z99.2 - Dependence on renal dialysis Status: Acute Plan: Seen during dialysis today on a 2K, 350 BFR, goal 3L HD support continues MWF. Fluid removal has not improved hypoxia. Monitor electrolytes intermittently. Avoid IVF administration. Protect left arm from procedures, has new AV access that is not mature. Will need to follow with vascular at a later date. PermCath in place for HD use. Phosphorus level has been acceptable without binder therapy. High protein diet with Supplements ordered. He has been losing weight, needs nutritional support. (2) Atrial fibrillation with RVR Code(s): I48.91 - Unspecified atrial fibrillation Status: Acute Plan: Improved, s/p AV gilbert ablation with pacemaker placement. On PO Amiodarone. Midodrine is ordered TID for hypotension. Cardiology following. Appreciate recommendations. (3) Hypoxia Code(s): R09.02 - Hypoxemia Status: Acute Plan: He is on high flow oxygen. Etiology is unclear. Patient may have interstitial lung disease. He has been on Amiodarone but unlikely to cause pulmonary toxicity in a short time frame. Pulmonary following. There is some history of occupational exposure to pulmonary toxins. (4) CHF (congestive heart failure) Code(s): I50.9 - Heart failure, unspecified Status: Acute Qualifiers: Heart failure type: unspecified Heart failure chronicity: unspecified Qualified Code(s): I50.9 - Heart failure, unspecified Plan: Stable. EF noted to be around 60%. Repeat echo shows no change in EF. He has mild aortic regurgitation. Fluid removal with dialysis. (5) Anemia in CKD (chronic kidney disease) Code(s): N18.9 - Chronic kidney disease, unspecified; D63.1 - Anemia in chronic kidney disease Status: Acute Plan: On Epogen with dialysis. Hemoglobin is acceptable. <Jyoti Ceron - Last Filed: 02/09/18 11:26> - Assessment (1) ESRD (end stage renal disease) on dialysis Code(s): N18.6 - End stage renal disease; Z99.2 - Dependence on renal dialysis Status: Acute (2) Atrial fibrillation with RVR Code(s): I48.91 - Unspecified atrial fibrillation Status: Acute (3) Hypoxia Code(s): R09.02 - Hypoxemia Status: Acute (4) CHF (congestive heart failure) Code(s): I50.9 - Heart failure, unspecified Status: Acute Qualifiers: Heart failure type: unspecified Heart failure chronicity: unspecified Qualified Code(s): I50.9 - Heart failure, unspecified (5) Anemia in CKD (chronic kidney disease) Code(s): N18.9 - Chronic kidney disease, unspecified; D63.1 - Anemia in chronic kidney disease Status: Acute - Attending Attestation patient was seen and examined. Agree with above assessment and plan. Hypoxia persists. Fluid removal has not improved hypoxia. <Eduardo Slavador - Last Filed: 02/10/18 08:07>
--- NOTE | 2018-02-09 12:34 | P.PNPAL ---
Reason for Visit Reason for visit: a. To assist with evaluation and management of symptoms including: Dyspnea, weakness b. To assist medical decision maker(s) with: better understanding of current medical conditions; weighing benefits/burdens of medical treatment options; making medical treatment decisions. Subjective Subjective/Interval History: Patient seen today for follow-up on symptom management of dyspnea, weakness. Patient underwent insertion of a Medtronic Micra pacemaker followed by AV gilbert ablation last week, and he is 100% paced. He says he does not feel short of breath at rest. However, he remains on high flow 25 L oxygen. Remains afebrile. The echocardiogram indicates moderate to severe pulmonary hypertension. The patient has had some dark blood hemoptysis the past day or 2 intermittently. I discussed our concern about his hypoxic respiratory failure with the patient and his daughter again; he confirms that he does want to be full code and would want to be on a ventilator "but not for a long time." . Family/Friend Interactions: Discussed with the patient's daughter Mona Greer again by telephone. I shared with her my concern about his ongoing respiratory compromise, the new evidence of pulmonary hypertension, and the as yet unspecified serious lung disease. She expresses understanding, but remains hopeful that he can get better and the oxygen requirements can be weaned. Advance Directives Health Care Surrogate: Copy in medical record Advance Directives Date on File: 02/02/18 Health Care Surrogate Name and Number: daughter Ms. Mona Greer Objective Vital Signs: Vital Signs 02/08/18 12:30 02/08/18 13:03 02/08/18 13:30 Temperature Pulse Rate 80 80 80 Respiratory Rate 24 28 H 26 H Blood Pressure 124/64 122/58 L 120/56 L Pulse Oximetry 88 L 77 L 87 L 02/08/18 14:00 02/08/18 14:30 02/08/18 15:01 Temperature Pulse Rate 80 80 80 Respiratory Rate 26 H 35 H 33 H Blood Pressure 110/56 L 121/56 L 120/55 L Pulse Oximetry 88 L 83 L 85 L 02/08/18 15:25 02/08/18 15:30 02/08/18 16:00 Temperature 98.1 F Pulse Rate 80 80 80 Respiratory Rate 26 H 36 H 21 Blood Pressure 129/58 L 134/60 Pulse Oximetry 85 L 92 L 02/08/18 16:30 02/08/18 17:00 02/08/18 17:30 Temperature Pulse Rate 80 80 80 Respiratory Rate 25 H 11 L 14 Blood Pressure 121/58 L 126/58 L 116/58 L Pulse Oximetry 95 94 L 97 02/08/18 18:00 02/08/18 18:01 02/08/18 18:30 Temperature Pulse Rate 80 80 80 Respiratory Rate 26 H 18 25 H Blood Pressure 116/57 L 123/70 Pulse Oximetry 92 L 93 L 92 L 02/08/18 19:00 02/08/18 19:30 02/08/18 20:00 Temperature Pulse Rate 79 79 80 Respiratory Rate 21 31 H 28 H Blood Pressure 122/58 L 120/56 L 128/60 Pulse Oximetry 90 L 91 L 02/08/18 20:30 02/08/18 21:00 02/08/18 21:30 Temperature Pulse Rate 80 80 80 Respiratory Rate 27 H 27 H 35 H Blood Pressure 129/60 127/60 145/66 H Pulse Oximetry 89 L 90 L 90 L 02/08/18 21:54 02/08/18 22:00 02/08/18 22:30 Temperature Pulse Rate 80 80 80 Respiratory Rate 24 21 27 H Blood Pressure 130/63 120/61 Pulse Oximetry 93 L 91 L 02/08/18 23:01 02/08/18 23:30 02/08/18 23:40 Temperature Pulse Rate 80 80 Respiratory Rate 21 22 Blood Pressure 131/74 119/56 L Pulse Oximetry 84 L 88 L 92 L 02/08/18 23:45 02/09/18 00:00 02/09/18 00:30 Temperature Pulse Rate 80 80 80 Respiratory Rate 24 16 11 L Blood Pressure 123/58 L 122/58 L Pulse Oximetry 90 L 95 02/09/18 01:00 02/09/18 01:30 02/09/18 02:00 Temperature Pulse Rate 80 80 80 Respiratory Rate 12 11 L 15 Blood Pressure 124/64 125/61 125/63 Pulse Oximetry 96 95 91 L 02/09/18 02:30 02/09/18 03:00 02/09/18 03:21 Temperature Pulse Rate 80 79 79 Respiratory Rate 11 L 22 24 Blood Pressure 134/63 123/57 L Pulse Oximetry 94 L 91 L 02/09/18 03:30 02/09/18 04:00 02/09/18 04:30 Temperature Pulse Rate 79 79 79 Respiratory Rate 34 H 31 H 24 Blood Pressure 136/69 146/70 H 149/70 H Pulse Oximetry 90 L 83 L 91 L 02/09/18 06:00 02/09/18 07:00 02/09/18 08:00 Temperature 98.2 F Pulse Rate 80 80 80 Respiratory Rate 18 25 H Blood Pressure 126/63 Pulse Oximetry 100 02/09/18 10:00 02/09/18 11:00 Temperature Pulse Rate 80 80 Respiratory Rate 18 Blood Pressure Pulse Oximetry Intake & Output 02/08/18 02/09/18 02/09/18 18:59 06:59 18:59 Output Total 0 / 0 275 / 275 Balance 0 / 0 -275 / -275 Weight 90.5 kg Output: Urine 0 / 0 275 / 275 Other: Date of Last Bowel Movement 02/08/18 02/09/18 02/09/18 # Bowel Movements 1 Physical Exam: CONSTITUTIONAL/GENERAL: This is an adequately nourished patient, appears weak, in no apparent distress. NECK: Trachea midline. Supple, nontender. No palpable thyroid enlargement or nodularity. CARDIOVASCULAR: S1, S2, irregular rhythm, controlled rate, no rub murmur or gallop. RESPIRATORY/CHEST: Diminished breath sounds with bibasilar crackles, some accessory muscle use noted today, No rhonchi or wheezes. GASTROINTESTINAL: Abdomen soft, non-tender, nondistended. No hepato-splenomegaly , or palpable masses. No guarding. Bowel sounds present. MUSCULOSKELETAL: Extremities without clubbing, cyanosis, or edema. No joint tenderness or effusion noted. No calf tenderness. No mottling or clubbing. NEUROLOGICAL: Appears tired, fatigued, oriented 4. Motor and sensory grossly within normal limits. Follows commands. Moves all extremities. PSYCHIATRIC: Not anxious at this time.. . Diagnostic Tests Laboratory: Laboratory Results - last 72 hr 02/06/18 02/06/18 02/07/18 18:14 23:47 06:10 WBC RBC Hgb Hct MCV MCH MCHC RDW Plt Count MPV Neut % (Auto) Lymph % (Auto) [place] % (Auto) Eos % (Auto) Baso % (Auto) Neut # (Auto) Lymph # (Auto) [place] # (Auto) Eos # (Auto) Baso # (Auto) WBC Differential Differential Comment PT 21.6 H INR 2.1 Sodium Potassium Chloride Carbon Dioxide Anion Gap BUN Creatinine Estimated GFR POC Glucose 366 H 129 H Random Glucose Calcium 02/07/18 02/07/18 02/07/18 06:10 06:10 06:44 WBC 13.0 H RBC 3.87 L Hgb 11.0 L Hct 33.5 L MCV 86.6 MCH 28.4 MCHC 32.8 RDW 18.9 H Plt Count 141 L MPV 9.6 Neut % (Auto) 94.7 H Lymph % (Auto) 1.9 L [place] % (Auto) 3.3 Eos % (Auto) 0.0 Baso % (Auto) 0.1 Neut # (Auto) 12.3 H Lymph # (Auto) 0.2 L [place] # (Auto) 0.4 Eos # (Auto) 0.0 Baso # (Auto) 0.0 WBC Differential . Differential Comment Auto diff final PT INR Sodium 135 L Potassium 4.8 Chloride 93 L Carbon Dioxide 29.7 Anion Gap 12 BUN 89 H Creatinine 7.29 H Estimated GFR 7 L POC Glucose 199 H Random Glucose 148 H Calcium 9.4 02/07/18 02/07/18 02/07/18 12:23 17:24 23:00 WBC RBC Hgb Hct MCV MCH MCHC RDW Plt Count MPV Neut % (Auto) Lymph % (Auto) [place] % (Auto) Eos % (Auto) Baso % (Auto) Neut # (Auto) Lymph # (Auto) [place] # (Auto) Eos # (Auto) Baso # (Auto) WBC Differential Differential Comment PT INR Sodium Potassium Chloride Carbon Dioxide Anion Gap BUN Creatinine Estimated GFR POC Glucose 226 H 198 H 249 H Random Glucose Calcium 02/08/18 02/08/18 02/08/18 05:11 05:19 05:19 WBC 13.6 H RBC 3.76 L Hgb 10.6 L Hct 32.6 L MCV 86.7 MCH 28.3 MCHC 32.6 RDW 18.7 H Plt Count 135 L MPV 9.7 Neut % (Auto) 95.1 H Lymph % (Auto) 1.3 L [place] % (Auto) 3.5 Eos % (Auto) 0.0 Baso % (Auto) 0.1 Neut # (Auto) 13.0 H Lymph # (Auto) 0.2 L [place] # (Auto) 0.5 Eos # (Auto) 0.0 Baso # (Auto) 0.0 WBC Differential . Differential Comment Auto diff final PT 20.0 H INR 2.0 Sodium 138 Potassium 4.7 Chloride 97 L Carbon Dioxide 31.3 Anion Gap 10 BUN 72 H Creatinine 5.93 H Estimated GFR 9 L POC Glucose Random Glucose 165 H Calcium 8.8 02/08/18 02/08/18 02/08/18 06:51 08:54 11:53 WBC RBC Hgb Hct MCV MCH MCHC RDW Plt Count MPV Neut % (Auto) Lymph % (Auto) [place] % (Auto) Eos % (Auto) Baso % (Auto) Neut # (Auto) Lymph # (Auto) [place] # (Auto) Eos # (Auto) Baso # (Auto) WBC Differential Differential Comment PT INR Sodium Potassium Chloride Carbon Dioxide Anion Gap BUN Creatinine Estimated GFR POC Glucose 197 H 276 H 245 H Random Glucose Calcium 02/08/18 02/08/18 02/09/18 18:15 23:29 04:15 WBC RBC Hgb Hct MCV MCH MCHC RDW Plt Count MPV Neut % (Auto) Lymph % (Auto) [place] % (Auto) Eos % (Auto) Baso % (Auto) Neut # (Auto) Lymph # (Auto) [place] # (Auto) Eos # (Auto) Baso # (Auto) WBC Differential Differential Comment PT 24.1 H INR 2.4 Sodium Potassium Chloride Carbon Dioxide Anion Gap BUN Creatinine Estimated GFR POC Glucose 317 H 259 H Random Glucose Calcium 02/09/18 02/09/18 02/09/18 04:15 04:15 06:11 WBC 15.7 H RBC 3.86 L Hgb 11.0 L Hct 34.3 L MCV 88.9 MCH 28.4 MCHC 31.9 L RDW 19.8 H Plt Count 144 L MPV 9.8 Neut % (Auto) 95.7 H Lymph % (Auto) 1.0 L [place] % (Auto) 3.3 Eos % (Auto) 0.0 Baso % (Auto) 0.0 Neut # (Auto) 15.0 H Lymph # (Auto) 0.2 L [place] # (Auto) 0.5 Eos # (Auto) 0.0 Baso # (Auto) 0.0 WBC Differential . Differential Comment Auto diff final PT INR Sodium 134 L Potassium 4.9 Chloride 92 L Carbon Dioxide 29.7 Anion Gap 12 BUN 111 H Creatinine 7.46 H Estimated GFR 7 L POC Glucose 271 H Random Glucose 225 H Calcium 9.1 02/09/18 11:37 WBC RBC Hgb Hct MCV MCH MCHC RDW Plt Count MPV Neut % (Auto) Lymph % (Auto) [place] % (Auto) Eos % (Auto) Baso % (Auto) Neut # (Auto) Lymph # (Auto) [place] # (Auto) Eos # (Auto) Baso # (Auto) WBC Differential Differential Comment PT INR Sodium Potassium Chloride Carbon Dioxide Anion Gap BUN Creatinine Estimated GFR POC Glucose 148 H Random Glucose Calcium Result Diagrams: 02/09/18 04:15 02/09/18 04:15 Imaging: Abdomen X-Ray 01/23/18 23:05 CONCLUSION: 1. Nonobstructive bowel gas pattern. Chest CTA 01/30/18 00:00 CONCLUSION: 1. No evidence of pulmonary embolus. 2. Severe bilateral pulmonary parenchymal opacity with predominance at the dependent portions of the lungs. Difficult diagnosis includes pulmonary edema and infection. 3. Elongated lobulated nodular density in the right midlung following the major fissure likely represents loculated pleural effusion. 4. Enlarged pulmonary arteries suggesting pulmonary arterial hypertension. 5. Enlarged heart and small pericardial effusion. 6. Small left than right pleural effusions. 7. Mildly enlarged mediastinal lymph nodes, likely reactive. Chest X-Ray 02/09/18 08:04 CONCLUSION: 1. Cardiomegaly with interstitial edema. 2. Mild airspace disease in the right lung base, presumably atelectasis. 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 Was living alone recently. Spiritual: Pet Care Attendant available. Legal: His daughter, Dinorah Greer, is his healthcare decision maker/HCS. Ethical issues impacting care: None noted. Important Contacts: Daughter: Dinorah Greer . Prognosis: His prognosis is guarded. He is short of breath at rest, was in atrial fib, but now is 100% paced rhythm. He has significant hypoxic lung disease/ respiratory failure with significant pulmonary hypertension but no specific pulmonary diagnosis otherwise, end-stage renal disease, diabetes, hypertension, and he is at risk for further complications and decline. . Code Status: Full Code Plan: PLAN: DECISION-MAKING: The patient is capacitated to make his own decisions however requests assisted decision making with his daughter, Dinorah Greer. He has verbalized that he wants Ms. Greer to be his healthcare surrogate. GOALS: Aggressive. Patient states he does not want to sign a DNR and would accept mechanical ventilation if required, "but not for a long time." CODE STATUS: FULL CODE -reconfirmed with the patient 02/09/18 SYMPTOMS: * Weakness: Progressively worsening, secondary to extended ICU status, bedbound status, severe respiratory insufficiency, increased work of breathing. Unable to effectively participate in PT due to dyspnea and weakness. * Dyspnea: Multifactorial to include past history of smoking, prior asbestos exposure, prior exposure to concrete dust, as well as agent orange exposure in [place]. He continues to require high flow nasal cannula. His respiratory status would be expected to continue to decline in the upcoming days/weeks, and he is at risk of requiring intubation. The recycling manager is speaking with other specialists about considering a lung biopsy....?? Palliative care will continue to follow the patient during hospital course as condition evolves, to assist patient/decision-maker with understanding of their medical conditions, weighing benefits/burdens of treatment options, for clarification of goals of treatment. Additionally will assist with any symptoms of palliative concern. . Time Spent Total Floor Time (mins): 42 Face to Face Time (mins): 25 >50% Time in Counseling or Coordination of Care: Yes (d/w Dr. Almanzar and w RN) Attestation Collaborating MD Comments: To help prompt me to consider important information that might be impacting today's encounter and assessment, information from prior notes written by myself or my colleagues may have been "brought forward" into today's note. My signature on this note, however, is an attestation that I personally performed the exam, history, and/or decision-making noted today, and, unless otherwise indicated, the interactions with patient, family, and staff as well as the review of records all occurred today. I also attest that the listed assessment and stated plan reflect my best clinical judgment today based on the combination of historical information, prior notes, and today's exam/ interactions. When time spent is documented, it refers only to time spent today by the signer, or if indicated, combined time spent today by collaborating physician/nurse practitioner.
--- NOTE | 2018-02-09 14:34 | P.PNCA ---
Subjective Interval history: asleep in nad Physical Exam Vital signs: Vital Signs 02/08/18 15:01 02/08/18 15:25 02/08/18 15:30 Temperature Pulse Rate 80 80 80 Respiratory Rate 33 H 26 H 36 H Blood Pressure 120/55 L 129/58 L Pulse Oximetry 85 L 85 L 02/08/18 16:00 02/08/18 16:30 02/08/18 17:00 Temperature 98.1 F Pulse Rate 80 80 80 Respiratory Rate 21 25 H 11 L Blood Pressure 134/60 121/58 L 126/58 L Pulse Oximetry 92 L 95 94 L 02/08/18 17:30 02/08/18 18:00 02/08/18 18:01 Temperature Pulse Rate 80 80 80 Respiratory Rate 14 26 H 18 Blood Pressure 116/58 L 116/57 L Pulse Oximetry 97 92 L 93 L 02/08/18 18:30 02/08/18 19:00 02/08/18 19:30 Temperature Pulse Rate 80 79 79 Respiratory Rate 25 H 21 31 H Blood Pressure 123/70 122/58 L 120/56 L Pulse Oximetry 92 L 90 L 02/08/18 20:00 02/08/18 20:30 02/08/18 21:00 Temperature Pulse Rate 80 80 80 Respiratory Rate 28 H 27 H 27 H Blood Pressure 128/60 129/60 127/60 Pulse Oximetry 91 L 89 L 90 L 02/08/18 21:30 02/08/18 21:54 02/08/18 22:00 Temperature Pulse Rate 80 80 80 Respiratory Rate 35 H 24 21 Blood Pressure 145/66 H 130/63 Pulse Oximetry 90 L 93 L 02/08/18 22:30 02/08/18 23:01 02/08/18 23:30 Temperature Pulse Rate 80 80 80 Respiratory Rate 27 H 21 22 Blood Pressure 120/61 131/74 119/56 L Pulse Oximetry 91 L 84 L 88 L 02/08/18 23:40 02/08/18 23:45 02/09/18 00:00 Temperature Pulse Rate 80 80 Respiratory Rate 24 16 Blood Pressure 123/58 L Pulse Oximetry 92 L 90 L 02/09/18 00:30 02/09/18 01:00 02/09/18 01:30 Temperature Pulse Rate 80 80 80 Respiratory Rate 11 L 12 11 L Blood Pressure 122/58 L 124/64 125/61 Pulse Oximetry 95 96 95 02/09/18 02:00 02/09/18 02:30 02/09/18 03:00 Temperature Pulse Rate 80 80 79 Respiratory Rate 15 11 L 22 Blood Pressure 125/63 134/63 123/57 L Pulse Oximetry 91 L 94 L 91 L 02/09/18 03:21 02/09/18 03:30 02/09/18 04:00 Temperature Pulse Rate 79 79 79 Respiratory Rate 24 34 H 31 H Blood Pressure 136/69 146/70 H Pulse Oximetry 90 L 83 L 02/09/18 04:30 02/09/18 06:00 02/09/18 07:00 Temperature Pulse Rate 79 80 80 Respiratory Rate 24 18 Blood Pressure 149/70 H Pulse Oximetry 91 L 02/09/18 08:00 02/09/18 10:00 02/09/18 11:00 Temperature 98.2 F Pulse Rate 80 80 80 Respiratory Rate 25 H 18 Blood Pressure 126/63 Pulse Oximetry 100 02/09/18 12:00 Temperature 97.6 F Pulse Rate 80 Respiratory Rate 33 H Blood Pressure 126/59 L Pulse Oximetry 89 L Intake & Output 02/08/18 02/09/18 02/09/18 18:59 06:59 18:59 Output Total 0 / 0 275 / 275 3000 / 3000 Balance 0 / 0 -275 / -275 -3000 / -3000 Weight 90.5 kg Output: Urine 0 / 0 275 / 275 Hemodialysis Amount 3000 / 3000 Other: Date of Last Bowel Movement 02/08/18 02/09/18 02/09/18 # Bowel Movements 1 Assessment and Plan - Assessment (1) Atrial fibrillation with rapid ventricular response Code(s): I48.91 - Unspecified atrial fibrillation Status: Acute (2) CHF (congestive heart failure) Code(s): I50.9 - Heart failure, unspecified Status: Acute (3) Chronic kidney disease with end stage renal failure on dialysis Code(s): N18.6 - End stage renal disease; Z99.2 - Dependence on renal dialysis Status: Acute (4) Atrial fibrillation with RVR Code(s): I48.91 - Unspecified atrial fibrillation Status: Acute (5) ESRD (end stage renal disease) on dialysis Code(s): N18.6 - End stage renal disease; Z99.2 - Dependence on renal dialysis Status: Acute - Plan 1.) Afib with rvr - s/p ablation and micra placement 02/02/18 due to failure of medical management for rate control, d/w patient, inr therapeutic, hgb stable, rate controlled 2.) CAD - continue, lipitor, coumadin at 3 mg qd, has hemoptyis which is improving, f/u inr and cbc in am (2) CHF (congestive heart failure) Qualifiers: Heart failure type: unspecified Heart failure chronicity: unspecified Qualified Code(s): I50.9 - Heart failure, unspecified
[2018-02-10] MEDS: Insulin NovoLIN Regular Correctional Sugar Inj SQ SCH ×4 (06:08→17:28)
[2018-02-10 07:42] LABS: INR 2.7 Ratio; Prothrombin Time 27.4 sec (9.8-11.6)
[2018-02-10 07:50] LABS: Baso % (Auto) 0.1 % (0.0-2.0); Hematocrit 33.6 % (39.0-51.0); Hemoglobin 10.9 gm/dL (13.0-17.0); Lymph # (Auto) 0.2 th/mm3 (1.0-4.8); Lymph % (Auto) 1.5 % (9.0-44.0); Mean Corpuscular HGB Conc 32.4 % (32.0-36.0); Mean Corpuscular Hemoglobin 28.5 pg (27.0-34.0); Mean Corpuscular Volume 88.1 fL (80.0-100.0); Mean Platelet Volume 10.1 fL (7.0-11.0); Mono # (Auto) 0.6 th/mm3 (0.0-0.9); Mono % (Auto) 4.5 % (0.0-8.0); Neut # (Auto) 12.8 th/mm3 (1.8-7.7); Neut % (Auto) 93.9 % (16.0-70.0); Platelet Count 127 th/mm3 (150-450); Red Blood Count 3.82 mil/mm3 (4.50-5.90); Red Cell Distribution Width 20.9 % (11.6-17.2); White Blood Count 13.6 th/mm3 (4.0-11.0)
[2018-02-10] MEDS: Senna/Docusate Sodium 8.6/50 MG Tablet PO SCH ×2 (08:18→20:19)
[2018-02-10] MEDS: Insulin Detemir Inj 1,000 UNIT/10 ML Vial SQ SCH ×2 (08:18→20:18)
[2018-02-10 08:20] LABS: Carbon Dioxide 31.4 meq/L (21.0-32.0); Potassium 4.9 meq/L (3.5-5.1)
[2018-02-10] MEDS: Budesonide-Formoterol 160/4.5 MCG 6 GM Inhaler INH SCH ×2 (08:20→20:19)
--- NOTE | 2018-02-10 08:38 | P.PNCC ---
Subjective Subjective Remarks/Hospital Course: This is a 72yM with history of ESRD on HD who was recently admitted last month for supraventricular tachycardia. It appears from the records that normal sinus rhythm was restored prior to discharge home. He re-presented to the hospital with atrial fibrillation with rapid ventricular response which has been poorly responsive to esmolol infusion. It is noted that there is still a shortage of diltiazem infusions, so none is available to place the patient on. Dr. Waters with cardiology was consulted, as was Dr. Weinberg. The patient has also had hypotension during this hospital stay with most blood pressure readings between 80-100 systolic. This morning, Bystolic was started and was given together with amiodarone 400mg and metoprolol 25mg po. Approximately 2 hours after this, his blood pressure dropped into the 60s and 70s systolic. I was consulted by Dr. Wilcox to evaluate and manage his hemodynamics in the setting of poorly-controlled atrial fibrillation and hypotension. The patient does complain of light-headedness and a little chest discomfort which is new since his blood pressure has dropped into the 70s. He denies any other complaints and tolerated breakfast this AM. ROS otherwise negative. troponins have been serially negative this admission. I performed bedside critical care echocardiography and compared this to images obtained from last hospital admission on 11/2017. Given the poorly controlled nature of the patient's rate, wall motion and accurate ejection fraction are difficult to assess with accuracy. It does appear that the patient has relatively preserved EF and at most only mildly depressed LVEF. Aortic valve is sclerotic but appears unchanged from prior echo which calculated the valve area at ~2cm. no pericardial effusion. IVC is dilated around 2cm without respiratory variation. heart rate on my evaluation is 121. 8/2: Critical care reconsulted by Dr. Weinberg for worsening respiratory failure. Patient dropped O2 sats to 84% on 6 L nasal cannula. When I evaluated patient he was resting in bed. Placed him on high flow nasal cannula 30 L/min 60% FiO2 with which his O2 sats came up to 90%. 01/30: Remains on high flow nasal cannula. CT chest negative for PE shows consolidation bilateral lower lobes and a loculated effusion on the right. Defer to pulmonary regarding further recommendations. 01/31: Remains on high flow nasal cannula. Being dialyzed currently. On 30 L/ min 60% FiO2. O2 sats 96%. Feels that he is breathing a little better. 02/01, 02/02: On high flow nasal cannula at 20 L/min 50% FiO2. Shortness of breath gradually improving. 02/03: On high flow nasal cannula 20 L/min 60% FiO2. Underwent mitral implantation and AV gilbert ablation yesterday by Dr. Weinberg. Sitting up in bed today. Appears comfortable not in any acute distress. 02/04 Patient 02/04 Patient is awake and alert on high flow oxygen 25L with 70% FIO2> Afebrile. For HD today 02/05 No events overnight. s/p HD yesterday with removal 5L. Afebrile. On 25L with FIO2 down to 50% 02/06 Patient remains on high flow oxygen with 25L 55%FIO2. Afebrile. 02/07 Patient s/p HD yesterday with removal 4.5L. Remains on high flow oxygen 25L with 50% FIO2. Afebrile. 02/08 Patient s/p HD yesterday with removal 3L. On high flow oxygen. Afebrile. 02/09 Patient remains on high flow oxygen 25L with 55% FIO2. Afebrile. For HD today 02/10 Patient is awake and alert. s/p HD yesterday with removal 3L. On 30L with 60% FIO2. Afebrile. Objective Vital Signs / I&O: Vital Signs 02/09/18 10:00 02/09/18 11:00 02/09/18 12:00 Temperature 97.6 F Pulse Rate 80 80 80 Respiratory Rate 18 33 H Blood Pressure 126/59 L Pulse Oximetry 89 L 02/09/18 14:00 02/09/18 14:52 02/09/18 16:00 Temperature 98.0 F Pulse Rate 80 80 80 Respiratory Rate 18 24 Blood Pressure 102/51 L Pulse Oximetry 87 L 02/09/18 18:00 02/09/18 19:34 02/09/18 20:00 Temperature 98.5 F Pulse Rate 80 80 80 Respiratory Rate 20 29 H Blood Pressure 97/55 L Pulse Oximetry 90 L 90 L 02/09/18 22:00 02/09/18 23:39 02/10/18 00:00 Temperature 98.6 F Pulse Rate 80 80 80 Respiratory Rate 18 15 Blood Pressure 101/56 L Pulse Oximetry 95 02/10/18 02:00 02/10/18 04:00 02/10/18 06:00 Temperature 98.6 F Pulse Rate 80 80 80 Respiratory Rate 12 Blood Pressure 102/55 L Pulse Oximetry 95 02/10/18 07:26 Temperature Pulse Rate 80 Respiratory Rate 17 Blood Pressure Pulse Oximetry 95 Intake & Output 02/09/18 02/10/18 02/10/18 18:59 06:59 18:59 Intake Total 720 / 720 480 / 480 Output Total 3200 / 3200 0 / 0 Balance -2480 / -2480 480 / 480 Weight 89.5 kg Intake: Oral 720 / 720 480 / 480 Output: Urine 200 / 200 0 / 0 Hemodialysis Amount 3000 / 3000 Other: # Voids 1 Date of Last Bowel Movement 02/09/18 02/10/18 # Bowel Movements 1 3 Result Diagrams: 02/10/18 06:10 02/10/18 06:10 Other Results: Laboratory Results - last 12 hr 02/09/18 02/10/18 02/10/18 23:31 05:58 06:10 WBC RBC Hgb Hct MCV MCH MCHC RDW Plt Count MPV Neut % (Auto) Lymph % (Auto) [place] % (Auto) Eos % (Auto) Baso % (Auto) Neut # (Auto) Lymph # (Auto) [place] # (Auto) Eos # (Auto) Baso # (Auto) WBC Differential Differential Comment PT 27.4 H INR 2.7 Sodium Potassium Chloride Carbon Dioxide Anion Gap BUN Creatinine Estimated GFR POC Glucose 111 H 246 H Random Glucose Calcium 02/10/18 02/10/18 06:10 06:10 WBC 13.6 H RBC 3.82 L Hgb 10.9 L Hct 33.6 L MCV 88.1 MCH 28.5 MCHC 32.4 RDW 20.9 H Plt Count 127 L MPV 10.1 Neut % (Auto) 93.9 H Lymph % (Auto) 1.5 L [place] % (Auto) 4.5 Eos % (Auto) 0.0 Baso % (Auto) 0.1 Neut # (Auto) 12.8 H Lymph # (Auto) 0.2 L [place] # (Auto) 0.6 Eos # (Auto) 0.0 Baso # (Auto) 0.0 WBC Differential . Differential Comment Auto diff final PT INR Sodium 136 Potassium 4.9 Chloride 94 L Carbon Dioxide 31.4 Anion Gap 11 BUN 86 H Creatinine 6.20 H Estimated GFR 9 L POC Glucose Random Glucose 255 H Calcium 9.0 Imaging: Abdomen X-Ray 01/23/18 23:05 CONCLUSION: 1. Nonobstructive bowel gas pattern. Chest CTA 01/30/18 00:00 CONCLUSION: 1. No evidence of pulmonary embolus. 2. Severe bilateral pulmonary parenchymal opacity with predominance at the dependent portions of the lungs. Difficult diagnosis includes pulmonary edema and infection. 3. Elongated lobulated nodular density in the right midlung following the major fissure likely represents loculated pleural effusion. 4. Enlarged pulmonary arteries suggesting pulmonary arterial hypertension. 5. Enlarged heart and small pericardial effusion. 6. Small left than right pleural effusions. 7. Mildly enlarged mediastinal lymph nodes, likely reactive. Chest X-Ray 02/09/18 08:04 CONCLUSION: 1. Cardiomegaly with interstitial edema. 2. Mild airspace disease in the right lung base, presumably atelectasis. Objective Remarks: GENERAL: Patient is 72 yo on high flow oxygen. SKIN: Warm and dry. HEAD: Normocephalic. EYES: No scleral icterus. No injection or drainage. NECK: Supple, trachea midline. No JVD or lymphadenopathy. CARDIOVASCULAR: Regular rate and rhythm without murmurs, gallops, or rubs. RESPIRATORY: Breath sounds equal bilaterally. No accessory muscle use. Few coarse BS GASTROINTESTINAL: Abdomen soft, non-tender, nondistended. MUSCULOSKELETAL: No cyanosis, or edema. Neuro: Awake, alert Assessment and Plan - Assessment and Plan Plan: Active Problems: Acute respiratory failure CAD CHF Possible COPD Atrial Fibrillation with rapid ventricular response end-stage renal disease requiring hemodialysis Persistent hypotension secondary to poor cardiac output Neuro: Follow neuro status. Pain medications as needed. Monitor neuro status CV: Monitor HR and BP keep MAP>65mmHg Status post cardiac cath. Being followed by Dr. Weinberg. s/p ablation and micra placement 02/02/18 due to failure of medical management for rate control Echo showed EF 60-65%, mod- severe pulm HTN 60-70mmHg On Lipitor 80mg qhs, Coumadin Pulmo: Wean down oxygen as mari keep sats >92% CT chest with no evidence of PE however did show emphysematous changes bilateral lower lobe consolidation changes as well as fluid in interlobar fissure on the right. Pulmonary arteries are enlarged with probable pulmonary hypertension. Continue with Bronchodilators, Solumederol 40mg Q12, On Symbicort. CXR: Diffuse interstitial disease GI/liver: P.o. diabetic/renal diet Renal/: Monitor renal function, I/O's, avoid nephrotoxins Renal is following. s/p HD 02/07 with removal 3 L. s/p HD 02/09: 3L removed ID: Off abx s/p Zosyn 01/24- 02/07) Monitor for signs of infections ( Fever, WBC) Endocrine: SSI( high sale) for glycemic control, Levemir 5u BID Heme: Monitor CBC, Coags- INR 2.7 today Prophylaxis: Pepcid/SCDs. Anticoagulation with Coumadin. Level 3
--- NOTE | 2018-02-10 08:46 | P.PN ---
Subjective Interval history: alert no sob o2 99% high flow n/c Physical Exam Vital signs: Vital Signs 02/09/18 10:00 02/09/18 11:00 02/09/18 12:00 Temperature 97.6 F Pulse Rate 80 80 80 Respiratory Rate 18 33 H Blood Pressure 126/59 L Pulse Oximetry 89 L 02/09/18 14:00 02/09/18 14:52 02/09/18 16:00 Temperature 98.0 F Pulse Rate 80 80 80 Respiratory Rate 18 24 Blood Pressure 102/51 L Pulse Oximetry 87 L 02/09/18 18:00 02/09/18 19:34 02/09/18 20:00 Temperature 98.5 F Pulse Rate 80 80 80 Respiratory Rate 20 29 H Blood Pressure 97/55 L Pulse Oximetry 90 L 90 L 02/09/18 22:00 02/09/18 23:39 02/10/18 00:00 Temperature 98.6 F Pulse Rate 80 80 80 Respiratory Rate 18 15 Blood Pressure 101/56 L Pulse Oximetry 95 02/10/18 02:00 02/10/18 04:00 02/10/18 06:00 Temperature 98.6 F Pulse Rate 80 80 80 Respiratory Rate 12 Blood Pressure 102/55 L Pulse Oximetry 95 02/10/18 07:26 02/10/18 08:00 Temperature Pulse Rate 80 80 Respiratory Rate 17 Blood Pressure Pulse Oximetry 95 Intake & Output 02/09/18 02/10/18 02/10/18 18:59 06:59 18:59 Intake Total 720 / 720 480 / 480 Output Total 3200 / 3200 0 / 0 Balance -2480 / -2480 480 / 480 Weight 89.5 kg Intake: Oral 720 / 720 480 / 480 Output: Urine 200 / 200 0 / 0 Hemodialysis Amount 3000 / 3000 Other: # Voids 1 Date of Last Bowel Movement 02/09/18 02/10/18 02/10/18 # Bowel Movements 1 3 Narrative: GENERAL: Frail, elderly. HEENT: PERRL CARDIOVASCULAR: Paced rhythm. RESPIRATORY: bilateral wheezes, rhonchi GASTROINTESTINAL: Abdomen soft, non-tender, nondistended. Hepatic and splenic margins not palpable. Decreased bowel sounds. MUSCULOSKELETAL: Extremities without clubbing, cyanosis, mild edema. No obvious deformities. Cath site without hematoma. NEUROLOGICAL: Awake and alert. No obvious cranial nerve deficits. Results - Labs CBC & Chem 7: 02/10/18 06:10 02/10/18 06:10 Laboratory Results - last 24 hr 02/09/18 02/09/18 02/09/18 11:37 17:59 23:31 WBC RBC Hgb Hct MCV MCH MCHC RDW Plt Count MPV Neut % (Auto) Lymph % (Auto) [place] % (Auto) Eos % (Auto) Baso % (Auto) Neut # (Auto) Lymph # (Auto) [place] # (Auto) Eos # (Auto) Baso # (Auto) WBC Differential Differential Comment PT INR Sodium Potassium Chloride Carbon Dioxide Anion Gap BUN Creatinine Estimated GFR POC Glucose 148 H 257 H 111 H Random Glucose Calcium 02/10/18 02/10/18 02/10/18 05:58 06:10 06:10 WBC 13.6 H RBC 3.82 L Hgb 10.9 L Hct 33.6 L MCV 88.1 MCH 28.5 MCHC 32.4 RDW 20.9 H Plt Count 127 L MPV 10.1 Neut % (Auto) 93.9 H Lymph % (Auto) 1.5 L [place] % (Auto) 4.5 Eos % (Auto) 0.0 Baso % (Auto) 0.1 Neut # (Auto) 12.8 H Lymph # (Auto) 0.2 L [place] # (Auto) 0.6 Eos # (Auto) 0.0 Baso # (Auto) 0.0 WBC Differential . Differential Comment Auto diff final PT 27.4 H INR 2.7 Sodium Potassium Chloride Carbon Dioxide Anion Gap BUN Creatinine Estimated GFR POC Glucose 246 H Random Glucose Calcium 02/10/18 06:10 WBC RBC Hgb Hct MCV MCH MCHC RDW Plt Count MPV Neut % (Auto) Lymph % (Auto) [place] % (Auto) Eos % (Auto) Baso % (Auto) Neut # (Auto) Lymph # (Auto) [place] # (Auto) Eos # (Auto) Baso # (Auto) WBC Differential Differential Comment PT INR Sodium 136 Potassium 4.9 Chloride 94 L Carbon Dioxide 31.4 Anion Gap 11 BUN 86 H Creatinine 6.20 H Estimated GFR 9 L POC Glucose Random Glucose 255 H Calcium 9.0 Microbiology 02/09/18 10:30 Sputum - Expectorated Sputum Gram Stain - Final - Imaging Impressions Chest X-Ray 02/09/18 08:04 CONCLUSION: 1. Cardiomegaly with interstitial edema. 2. Mild airspace disease in the right lung base, presumably atelectasis. Assessment and Plan - Plan RESPIRATORY FAILURE, IMPROVING RENAL FAILURE ? COPD Chest pain CHF POST AV NODE ABLATION PULM HTN PLAN O2 NEEDED BRONCHODILATOR THERAPY INCREASE ACTIVITY taper steroids THERAPY FOR PAH
--- NOTE | 2018-02-10 10:49 | P.PNNP ---
Subjective Interval history: On high flow 60%, 30LPM, oxygen saturations 95%. Feeling weak today. <Jyoti Ceron - Last Filed: 02/10/18 10:46> Physical Exam Vital signs: Vital Signs 02/09/18 11:00 02/09/18 12:00 02/09/18 14:00 Temperature 97.6 F Pulse Rate 80 80 80 Respiratory Rate 18 33 H Blood Pressure 126/59 L Pulse Oximetry 89 L 02/09/18 14:52 02/09/18 16:00 02/09/18 18:00 Temperature 98.0 F Pulse Rate 80 80 80 Respiratory Rate 18 24 Blood Pressure 102/51 L Pulse Oximetry 87 L 02/09/18 19:34 02/09/18 20:00 02/09/18 22:00 Temperature 98.5 F Pulse Rate 80 80 80 Respiratory Rate 20 29 H Blood Pressure 97/55 L Pulse Oximetry 90 L 90 L 02/09/18 23:39 02/10/18 00:00 02/10/18 02:00 Temperature 98.6 F Pulse Rate 80 80 80 Respiratory Rate 18 15 Blood Pressure 101/56 L Pulse Oximetry 95 02/10/18 04:00 02/10/18 06:00 02/10/18 07:26 Temperature 98.6 F Pulse Rate 80 80 80 Respiratory Rate 12 17 Blood Pressure 102/55 L Pulse Oximetry 95 95 02/10/18 08:00 02/10/18 10:00 Temperature 97.8 F Pulse Rate 80 80 Respiratory Rate 13 Blood Pressure Pulse Oximetry 94 L Intake & Output 02/09/18 02/10/18 02/10/18 18:59 06:59 18:59 Intake Total 720 / 720 480 / 480 Output Total 3200 / 3200 0 / 0 Balance -2480 / -2480 480 / 480 Weight 89.5 kg Intake: Oral 720 / 720 480 / 480 Output: Urine 200 / 200 0 / 0 Hemodialysis Amount 3000 / 3000 Other: # Voids 1 Date of Last Bowel Movement 02/09/18 02/10/18 02/10/18 # Bowel Movements 1 3 - Constitutional no acute distress, chronically ill appearing, cooperative - Routine HEENT Exam Head: Present: normocephalic - Routine Neck Exam Present: supple, full ROM - Routine Respiratory Exam Present: decreased breath sounds, rales. Absent: accessory muscle use - Routine Cardiovascular Exam Present: S1, S2 - Routine Abdominal Exam Present: soft, normoactive bowel sounds - Routine Extremities Exam Present: full ROM, pulses intact, normal capillary refill. Absent: edema - Routine Skin Exam Present: intact, dry, warm - Routine Neurological Exam Present: alert, oriented X3, CN II-XII intact, moving all extremities - Detailed Neurological Exam: Coma Scale Eye Opening: Spontaneous Verbal Response: Oriented Motor Response: Obey commands [place] Coma Scale Total: 15 - Routine Psychiatric Exam Present: normal affect, normal thought process <Jyoti Ceron - Last Filed: 02/10/18 10:46> Vital signs: Vital Signs 02/10/18 10:00 02/10/18 12:00 02/10/18 12:43 Temperature 98.6 F Pulse Rate 80 80 80 Respiratory Rate 23 12 Blood Pressure 129/64 Pulse Oximetry 94 L 02/10/18 14:00 02/10/18 16:00 02/10/18 16:46 Temperature 98.7 F Pulse Rate 80 80 80 Respiratory Rate 12 17 Blood Pressure 109/54 L Pulse Oximetry 94 L 02/10/18 18:00 02/10/18 20:00 02/10/18 21:28 Temperature 97.6 F Pulse Rate 80 80 80 Respiratory Rate 20 19 Blood Pressure 109/58 L Pulse Oximetry 92 L 93 L 02/10/18 22:00 02/11/18 00:00 02/11/18 00:03 Temperature 98.2 F Pulse Rate 80 80 80 Respiratory Rate 16 18 Blood Pressure 117/58 L Pulse Oximetry 93 L 02/11/18 02:00 02/11/18 04:00 02/11/18 04:40 Temperature 98.3 F Pulse Rate 80 80 80 Respiratory Rate 15 19 Blood Pressure 114/57 L Pulse Oximetry 96 02/11/18 06:00 02/11/18 07:56 Temperature Pulse Rate 80 80 Respiratory Rate 17 Blood Pressure Pulse Oximetry 99 Intake & Output 02/10/18 02/11/18 02/11/18 18:59 06:59 18:59 Intake Total 1250 / 1250 480 / 480 Output Total 325 / 325 150 / 150 Balance 925 / 925 330 / 330 Weight 90 kg Intake: Oral 1200 / 1200 480 / 480 Oral Supplement 50 / 50 Output: Urine 325 / 325 150 / 150 Other: # Voids 2 Date of Last Bowel Movement 02/10/18 02/11/18 # Bowel Movements 1 2 # Incontinent Bowel Movements 1 <Eduardo Salvador - Last Filed: 02/11/18 09:20> Assessment and Plan - Assessment (1) ESRD (end stage renal disease) on dialysis Code(s): N18.6 - End stage renal disease; Z99.2 - Dependence on renal dialysis Status: Acute Plan: HD support continues MWF. 3L UF yesterday. Fluid removal has not improved hypoxia. Monitor electrolytes intermittently. Avoid IVF administration. Protect left arm from procedures, has new AV access that is not mature. Will need to follow with vascular at a later date. PermCath in place for HD use. Phosphorus level has been acceptable without binder therapy. High protein diet with Supplements ordered. He has been losing weight, needs nutritional support. (2) Atrial fibrillation with RVR Code(s): I48.91 - Unspecified atrial fibrillation Status: Acute Plan: Improved, s/p AV gilbert ablation with pacemaker placement. Off PO Amiodarone. Midodrine is ordered TID for hypotension. Cardiology following. Appreciate recommendations. (3) Hypoxia Code(s): R09.02 - Hypoxemia Status: Acute Plan: He is on high flow oxygen. Etiology is unclear. Patient may have interstitial lung disease. He was on Amiodarone but unlikely to cause pulmonary toxicity in a short time frame. Pulmonary following. May need lung biopsy to assist in diagnosis. There is some history of occupational exposure to pulmonary toxins. (4) CHF (congestive heart failure) Code(s): I50.9 - Heart failure, unspecified Status: Acute Qualifiers: Heart failure type: unspecified Heart failure chronicity: unspecified Qualified Code(s): I50.9 - Heart failure, unspecified Plan: Stable. EF noted to be around 60%. Repeat echo shows no change in EF. He has mild aortic regurgitation. Fluid removal with dialysis. (5) Anemia in CKD (chronic kidney disease) Code(s): N18.9 - Chronic kidney disease, unspecified; D63.1 - Anemia in chronic kidney disease Status: Acute Plan: On Epogen with dialysis. Hemoglobin is acceptable. <Jyoti Ceron - Last Filed: 02/10/18 10:46> - Assessment (1) ESRD (end stage renal disease) on dialysis Code(s): N18.6 - End stage renal disease; Z99.2 - Dependence on renal dialysis Status: Acute (2) Atrial fibrillation with RVR Code(s): I48.91 - Unspecified atrial fibrillation Status: Acute (3) Hypoxia Code(s): R09.02 - Hypoxemia Status: Acute (4) CHF (congestive heart failure) Code(s): I50.9 - Heart failure, unspecified Status: Acute Qualifiers: Heart failure type: unspecified Heart failure chronicity: unspecified Qualified Code(s): I50.9 - Heart failure, unspecified (5) Anemia in CKD (chronic kidney disease) Code(s): N18.9 - Chronic kidney disease, unspecified; D63.1 - Anemia in chronic kidney disease Status: Acute - Attending Attestation patient was seen and examined. Feels weak. No improvement in hypoxia. Nuclear Powerplant Mechanic/associate pathologist to address it. Consider Sildenafil. <Eduardo Salvador - Last Filed: 02/11/18 09:20>
[2018-02-10] MEDS: MethylPREDNISolone Sod Succinate Inj 40 MG/ML Vial IV.PUSH SCH ×2 (11:07→21:38)
--- NOTE | 2018-02-10 13:42 | P.PNPAL ---
Reason for Visit Reason for visit: a. To assist with evaluation and management of symptoms including: Dyspnea, weakness b. To assist medical decision maker(s) with: better understanding of current medical conditions; weighing benefits/burdens of medical treatment options; making medical treatment decisions. Subjective Subjective/Interval History: Patient seen today for follow-up on symptom management of dyspnea, weakness. Patient underwent insertion of a Medtronic Micra pacemaker followed by AV gilbert ablation, and he is 100% paced since then. He has no pain, and he does not feel dyspneic at rest, but he feels quite weak overall. However, he remains on high flow 30 L oxygen. The particular etiology for his hypoxic respiratory failure is not specified completely, but he does have exposure in the past 2 cigarettes, asbestos, concrete dust, and agent orange. . Advance Directives Health Care Surrogate: Copy in medical record Advance Directives Date on File: 02/02/18 Health Care Surrogate Name and Number: daughter Ms. Greer Objective Vital Signs: Vital Signs 02/09/18 14:00 02/09/18 14:52 02/09/18 16:00 Temperature 98.0 F Pulse Rate 80 80 80 Respiratory Rate 18 24 Blood Pressure 102/51 L Pulse Oximetry 87 L 02/09/18 18:00 02/09/18 19:34 02/09/18 20:00 Temperature 98.5 F Pulse Rate 80 80 80 Respiratory Rate 20 29 H Blood Pressure 97/55 L Pulse Oximetry 90 L 90 L 02/09/18 22:00 02/09/18 23:39 02/10/18 00:00 Temperature 98.6 F Pulse Rate 80 80 80 Respiratory Rate 18 15 Blood Pressure 101/56 L Pulse Oximetry 95 02/10/18 02:00 02/10/18 04:00 02/10/18 06:00 Temperature 98.6 F Pulse Rate 80 80 80 Respiratory Rate 12 Blood Pressure 102/55 L Pulse Oximetry 95 02/10/18 07:26 02/10/18 08:00 02/10/18 10:00 Temperature 97.8 F Pulse Rate 80 80 80 Respiratory Rate 17 13 Blood Pressure Pulse Oximetry 95 94 L 02/10/18 12:00 02/10/18 12:43 Temperature 98.6 F Pulse Rate 80 80 Respiratory Rate 23 12 Blood Pressure 129/64 Pulse Oximetry 94 L Intake & Output 02/09/18 02/10/1818 18:59 06:59 18:59 Intake Total 720 / 720 480 / 480 Output Total 3200 / 3200 0 / 0 Balance -2480 / -2480 480 / 480 Weight 89.5 kg Intake: Oral 720 / 720 480 / 480 Output: Urine 200 / 200 0 / 0 Hemodialysis Amount 3000 / 3000 Other: # Voids 1 Date of Last Bowel Movement 02/09/18 02/10/18 02/10/18 # Bowel Movements 1 3 Physical Exam: CONSTITUTIONAL/GENERAL: This is an adequately nourished patient, appears weak, in no apparent distress. NECK: Trachea midline. Supple, nontender. No palpable thyroid enlargement or nodularity. CARDIOVASCULAR: regular rhythm, paced rate 80, no rub murmur or gallop. RESPIRATORY/CHEST: Diminished breath sounds with bibasilar crackles, some accessory muscle use noted today, No rhonchi or wheezes. GASTROINTESTINAL: Abdomen soft, non-tender, nondistended. No hepato-splenomegaly , or palpable masses. No guarding. Bowel sounds present. MUSCULOSKELETAL: Extremities without clubbing, cyanosis, or edema. No joint tenderness or effusion noted. No calf tenderness. No mottling or clubbing. NEUROLOGICAL: Appears weak, fatigued, oriented 4. Motor and sensory grossly within normal limits. Follows commands. Moves all extremities. PSYCHIATRIC: No obvious anxiety, no evidence of psychosis. . Diagnostic Tests Laboratory: Laboratory Results - last 72 hr 02/07/18 02/07/18 02/08/18 17:24 23:00 05:11 WBC RBC Hgb Hct MCV MCH MCHC RDW Plt Count MPV Neut % (Auto) Lymph % (Auto) [place] % (Auto) Eos % (Auto) Baso % (Auto) Neut # (Auto) Lymph # (Auto) [place] # (Auto) Eos # (Auto) Baso # (Auto) WBC Differential Differential Comment PT 20.0 H INR 2.0 Sodium Potassium Chloride Carbon Dioxide Anion Gap BUN Creatinine Estimated GFR POC Glucose 198 H 249 H Random Glucose Calcium 02/08/18 02/08/18 02/08/18 05:19 05:19 06:51 WBC 13.6 H RBC 3.76 L Hgb 10.6 L Hct 32.6 L MCV 86.7 MCH 28.3 MCHC 32.6 RDW 18.7 H Plt Count 135 L MPV 9.7 Neut % (Auto) 95.1 H Lymph % (Auto) 1.3 L [place] % (Auto) 3.5 Eos % (Auto) 0.0 Baso % (Auto) 0.1 Neut # (Auto) 13.0 H Lymph # (Auto) 0.2 L [place] # (Auto) 0.5 Eos # (Auto) 0.0 Baso # (Auto) 0.0 WBC Differential . Differential Comment Auto diff final PT INR Sodium 138 Potassium 4.7 Chloride 97 L Carbon Dioxide 31.3 Anion Gap 10 BUN 72 H Creatinine 5.93 H Estimated GFR 9 L POC Glucose 197 H Random Glucose 165 H Calcium 8.8 02/08/18 02/08/18 02/08/18 08:54 11:53 18:15 WBC RBC Hgb Hct MCV MCH MCHC RDW Plt Count MPV Neut % (Auto) Lymph % (Auto) [place] % (Auto) Eos % (Auto) Baso % (Auto) Neut # (Auto) Lymph # (Auto) [place] # (Auto) Eos # (Auto) Baso # (Auto) WBC Differential Differential Comment PT INR Sodium Potassium Chloride Carbon Dioxide Anion Gap BUN Creatinine Estimated GFR POC Glucose 276 H 245 H 317 H Random Glucose Calcium 02/08/18 02/09/18 02/09/18 23:29 04:15 04:15 WBC 15.7 H RBC 3.86 L Hgb 11.0 L Hct 34.3 L MCV 88.9 MCH 28.4 MCHC 31.9 L RDW 19.8 H Plt Count 144 L MPV 9.8 Neut % (Auto) 95.7 H Lymph % (Auto) 1.0 L [place] % (Auto) 3.3 Eos % (Auto) 0.0 Baso % (Auto) 0.0 Neut # (Auto) 15.0 H Lymph # (Auto) 0.2 L [place] # (Auto) 0.5 Eos # (Auto) 0.0 Baso # (Auto) 0.0 WBC Differential . Differential Comment Auto diff final PT 24.1 H INR 2.4 Sodium Potassium Chloride Carbon Dioxide Anion Gap BUN Creatinine Estimated GFR POC Glucose 259 H Random Glucose Calcium 02/09/18 02/09/18 02/09/18 04:15 06:11 11:37 WBC RBC Hgb Hct MCV MCH MCHC RDW Plt Count MPV Neut % (Auto) Lymph % (Auto) [place] % (Auto) Eos % (Auto) Baso % (Auto) Neut # (Auto) Lymph # (Auto) [place] # (Auto) Eos # (Auto) Baso # (Auto) WBC Differential Differential Comment PT INR Sodium 134 L Potassium 4.9 Chloride 92 L Carbon Dioxide 29.7 Anion Gap 12 BUN 111 H Creatinine 7.46 H Estimated GFR 7 L POC Glucose 271 H 148 H Random Glucose 225 H Calcium 9.1 02/09/18 02/09/18 02/10/18 17:59 23:31 05:58 WBC RBC Hgb Hct MCV MCH MCHC RDW Plt Count MPV Neut % (Auto) Lymph % (Auto) [place] % (Auto) Eos % (Auto) Baso % (Auto) Neut # (Auto) Lymph # (Auto) [place] # (Auto) Eos # (Auto) Baso # (Auto) WBC Differential Differential Comment PT INR Sodium Potassium Chloride Carbon Dioxide Anion Gap BUN Creatinine Estimated GFR POC Glucose 257 H 111 H 246 H Random Glucose Calcium 02/10/18 02/10/18 02/10/18 06:10 06:10 06:10 WBC 13.6 H RBC 3.82 L Hgb 10.9 L Hct 33.6 L MCV 88.1 MCH 28.5 MCHC 32.4 RDW 20.9 H Plt Count 127 L MPV 10.1 Neut % (Auto) 93.9 H Lymph % (Auto) 1.5 L [place] % (Auto) 4.5 Eos % (Auto) 0.0 Baso % (Auto) 0.1 Neut # (Auto) 12.8 H Lymph # (Auto) 0.2 L [place] # (Auto) 0.6 Eos # (Auto) 0.0 Baso # (Auto) 0.0 WBC Differential . Differential Comment Auto diff final PT 27.4 H INR 2.7 Sodium 136 Potassium 4.9 Chloride 94 L Carbon Dioxide 31.4 Anion Gap 11 BUN 86 H Creatinine 6.20 H Estimated GFR 9 L POC Glucose Random Glucose 255 H Calcium 9.0 02/10/18 11:06 WBC RBC Hgb Hct MCV MCH MCHC RDW Plt Count MPV Neut % (Auto) Lymph % (Auto) [place] % (Auto) Eos % (Auto) Baso % (Auto) Neut # (Auto) Lymph # (Auto) [place] # (Auto) Eos # (Auto) Baso # (Auto) WBC Differential Differential Comment PT INR Sodium Potassium Chloride Carbon Dioxide Anion Gap BUN Creatinine Estimated GFR POC Glucose 241 H Random Glucose Calcium Result Diagrams: 02/10/18 06:10 02/10/18 06:10 Microbiology: Microbiology 02/09/18 10:30 Gram Stain - Final Sputum - Expectorated Sputum Procedures: 01/26/18: Cardiac catheterization 02/02/18: Cardiac catheterization: Insertion of Medtronic Micra and AV gilbert ablation Assessment and Plan - Disease Oriented Problem List (1) Atrial fibrillation with rapid ventricular response (2) Chronic kidney disease with end stage renal failure on dialysis (3) Respiratory failure Comment: Hypoxic, requiring high flow oxygen Pertinent Non-Medical Issues: Psychosocial:He was born in [place] but has been in [place] for many years , 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 Spiritual:Game [employer] available. Legal:His daughter, Dinorah Greer, is his healthcare decision maker/HCS. Ethical issues impacting care: None noted. Important Contacts: Daughter: Dinorah Greer (Cindy) . Prognosis: His prognosis is poor. He has significant hypoxic lung disease/respiratory failure, end-stage renal disease, diabetes, hypertension and is at risk for further complications and decline. He is likely terminal, and would be appropriate for hospice his goals were to comfort oriented. . Code Status: Full Code Plan: PLAN: FULL CODE, confirmed with patient again 02/09/18 DECISION-MAKING: The patient is capacitated to make his own decisions however requests assisted decision making with his daughter, Dinorah Greer (Cindy). He has chosen her to be his HCS. GOALS: Aggressive. Patient states he does not want to sign a DNR and would accept mechanical ventilation if required. SYMPTOMS: * Weakness: Progressively worsening, secondary to extended ICU status, bedbound status, severe respiratory insufficiency, increased work of breathing. Unable to effectively participate in PT due to dyspnea and weakness. * Dyspnea: Multifactorial to include past history of smoking, prior asbestos exposure, prior exposure to concrete dust, atrial fibrillation, as well as agent orange exposure in [place]. He continues to require high flow nasal cannula. His respiratory status would be expected to continue to decline in the upcoming days/weeks, and he is at risk of requiring intubation if his goals remain aggressive. Palliative care will continue to follow the patient during hospital course as condition evolves, to assist patient/decision-maker with understanding of their medical conditions, weighing benefits/burdens of treatment options, for clarification of goals of treatment. Additionally will assist with any symptoms of palliative concern. . Time Spent Total Floor Time (mins): 36 Face to Face Time (mins): 18 >50% Time in Counseling or Coordination of Care: Yes Attestation Attestation: To help prompt me to consider important information that might be impacting today's encounter and assessment, information from prior notes written by myself or my colleagues may have been "brought forward" into today's note. My signature on this note, however, is an attestation that I personally performed the exam, history, and/or decision-making noted today, and, unless otherwise indicated, the interactions with patient, family, and staff as well as the review of records all occurred today. I also attest that the listed assessment and stated plan reflect my best clinical judgment today based on the combination of historical information, prior notes, and today's exam/ interactions. When time spent is documented, it refers only to time spent today by the signer, or if indicated, combined time spent today by collaborating physician/nurse practitioner.
--- NOTE | 2018-02-10 15:15 | P.PNCA ---
Subjective Interval history: alert in nad Physical Exam Vital signs: Vital Signs 02/09/18 16:00 02/09/18 18:00 02/09/18 19:34 Temperature 98.0 F Pulse Rate 80 80 80 Respiratory Rate 24 20 Blood Pressure 102/51 L Pulse Oximetry 87 L 90 L 02/09/18 20:00 02/09/18 22:00 02/09/18 23:39 Temperature 98.5 F Pulse Rate 80 80 80 Respiratory Rate 29 H 18 Blood Pressure 97/55 L Pulse Oximetry 90 L 02/10/18 00:00 02/10/18 02:00 02/10/18 04:00 Temperature 98.6 F 98.6 F Pulse Rate 80 80 80 Respiratory Rate 15 12 Blood Pressure 101/56 L 102/55 L Pulse Oximetry 95 95 02/10/18 06:00 02/10/18 07:26 02/10/18 08:00 Temperature 97.8 F Pulse Rate 80 80 80 Respiratory Rate 17 13 Blood Pressure Pulse Oximetry 95 94 L 02/10/18 10:00 02/10/18 12:00 02/10/18 12:43 Temperature 98.6 F Pulse Rate 80 80 80 Respiratory Rate 23 12 Blood Pressure 129/64 Pulse Oximetry 94 L 02/10/18 14:00 Temperature Pulse Rate 80 Respiratory Rate Blood Pressure Pulse Oximetry Intake & Output 02/09/18 02/10/18 02/10/18 18:59 06:59 18:59 Intake Total 720 / 720 480 / 480 Output Total 3200 / 3200 0 / 0 Balance -2480 / -2480 480 / 480 Weight 89.5 kg Intake: Oral 720 / 720 480 / 480 Output: Urine 200 / 200 0 / 0 Hemodialysis Amount 3000 / 3000 Other: # Voids 1 Date of Last Bowel Movement 02/09/18 02/10/18 02/10/18 # Bowel Movements 1 3 Assessment and Plan - Assessment (1) Atrial fibrillation with rapid ventricular response Code(s): I48.91 - Unspecified atrial fibrillation Status: Acute (2) CHF (congestive heart failure) Code(s): I50.9 - Heart failure, unspecified Status: Acute (3) Chronic kidney disease with end stage renal failure on dialysis Code(s): N18.6 - End stage renal disease; Z99.2 - Dependence on renal dialysis Status: Acute (4) Atrial fibrillation with RVR Code(s): I48.91 - Unspecified atrial fibrillation Status: Acute (5) ESRD (end stage renal disease) on dialysis Code(s): N18.6 - End stage renal disease; Z99.2 - Dependence on renal dialysis Status: Acute - Plan 1.) Afib with rvr - s/p ablation and micra placement 02/02/18 due to failure of medical management for rate control, d/w patient, inr therapeutic, hgb stable, rate controlled 2.) CAD - continue, lipitor, coumadin at 3 mg qd, has hemoptyis which is improving, f/u inr and cbc in am (2) CHF (congestive heart failure) Qualifiers: Heart failure type: unspecified Heart failure chronicity: unspecified Qualified Code(s): I50.9 - Heart failure, unspecified
[2018-02-10] MEDS: Morphine Inj 4 MG/ML Vial IV.PUSH PRN (20:29)
[2018-02-11] MEDS: Insulin NovoLIN Regular Correctional Sugar Inj SQ SCH ×4 (00:12→17:32)
[2018-02-11 07:24] LABS: INR 2.5 Ratio; Prothrombin Time 25.1 sec (9.8-11.6)
[2018-02-11 07:25] LABS: Baso % (Auto) 0.1 % (0.0-2.0); Hematocrit 33.4 % (39.0-51.0); Hemoglobin 10.8 gm/dL (13.0-17.0); Lymph # (Auto) 0.2 th/mm3 (1.0-4.8); Lymph % (Auto) 1.4 % (9.0-44.0); Mean Corpuscular HGB Conc 32.4 % (32.0-36.0); Mean Corpuscular Hemoglobin 28.6 pg (27.0-34.0); Mean Corpuscular Volume 88.4 fL (80.0-100.0); Mono # (Auto) 0.6 th/mm3 (0.0-0.9); Mono % (Auto) 4.2 % (0.0-8.0); Neut # (Auto) 12.4 th/mm3 (1.8-7.7); Neut % (Auto) 94.3 % (16.0-70.0); Platelet Count 125 th/mm3 (150-450); Red Blood Count 3.78 mil/mm3 (4.50-5.90); Red Cell Distribution Width 21.1 % (11.6-17.2); White Blood Count 13.1 th/mm3 (4.0-11.0)
[2018-02-11 07:56] LABS: Calcium 8.6 mg/dL (8.5-10.1); Carbon Dioxide 27.7 meq/L (21.0-32.0)
--- NOTE | 2018-02-11 08:03 | P.PNCC ---
Subjective Subjective Remarks/Hospital Course: This is a 72yM with history of ESRD on HD who was recently admitted last month for supraventricular tachycardia. It appears from the records that normal sinus rhythm was restored prior to discharge home. He re-presented to the hospital with atrial fibrillation with rapid ventricular response which has been poorly responsive to esmolol infusion. It is noted that there is still a shortage of diltiazem infusions, so none is available to place the patient on. Dr. Waters with cardiology was consulted, as was Dr. Weinberg. The patient has also had hypotension during this hospital stay with most blood pressure readings between 80-100 systolic. This morning, Bystolic was started and was given together with amiodarone 400mg and metoprolol 25mg po. Approximately 2 hours after this, his blood pressure dropped into the 60s and 70s systolic. I was consulted by Dr. Wilcox to evaluate and manage his hemodynamics in the setting of poorly-controlled atrial fibrillation and hypotension. The patient does complain of light-headedness and a little chest discomfort which is new since his blood pressure has dropped into the 70s. He denies any other complaints and tolerated breakfast this AM. ROS otherwise negative. troponins have been serially negative this admission. I performed bedside critical care echocardiography and compared this to images obtained from last hospital admission on 11/2017. Given the poorly controlled nature of the patient's rate, wall motion and accurate ejection fraction are difficult to assess with accuracy. It does appear that the patient has relatively preserved EF and at most only mildly depressed LVEF. Aortic valve is sclerotic but appears unchanged from prior echo which calculated the valve area at ~2cm. no pericardial effusion. IVC is dilated around 2cm without respiratory variation. heart rate on my evaluation is 121. 8/2: Critical care reconsulted by Dr. Weinberg for worsening respiratory failure. Patient dropped O2 sats to 84% on 6 L nasal cannula. When I evaluated patient he was resting in bed. Placed him on high flow nasal cannula 30 L/min 60% FiO2 with which his O2 sats came up to 90%. 01/30: Remains on high flow nasal cannula. CT chest negative for PE shows consolidation bilateral lower lobes and a loculated effusion on the right. Defer to pulmonary regarding further recommendations. 01/31: Remains on high flow nasal cannula. Being dialyzed currently. On 30 L/ min 60% FiO2. O2 sats 96%. Feels that he is breathing a little better. 02/01, 02/02: On high flow nasal cannula at 20 L/min 50% FiO2. Shortness of breath gradually improving. 02/03: On high flow nasal cannula 20 L/min 60% FiO2. Underwent mitral implantation and AV gilbert ablation yesterday by Dr. Weinberg. Sitting up in bed today. Appears comfortable not in any acute distress. 02/04 Patient 02/04 Patient is awake and alert on high flow oxygen 25L with 70% FIO2> Afebrile. For HD today 02/05 No events overnight. s/p HD yesterday with removal 5L. Afebrile. On 25L with FIO2 down to 50% 02/06 Patient remains on high flow oxygen with 25L 55%FIO2. Afebrile. 02/07 Patient s/p HD yesterday with removal 4.5L. Remains on high flow oxygen 25L with 50% FIO2. Afebrile. 02/08 Patient s/p HD yesterday with removal 3L. On high flow oxygen. Afebrile. 02/09 Patient remains on high flow oxygen 25L with 55% FIO2. Afebrile. For HD today 02/10 Patient is awake and alert. s/p HD yesterday with removal 3L. On 30L with 60% FIO2. Afebrile. 02/11 Patient is n 30L with 55% FIO2. Afebrile. Objective Vital Signs / I&O: Vital Signs 02/10/18 08:00 02/10/18 10:00 02/10/18 12:00 Temperature 97.8 F 98.6 F Pulse Rate 80 80 80 Respiratory Rate 13 23 Blood Pressure 129/64 Pulse Oximetry 94 L 94 L 02/10/18 12:43 02/10/18 14:00 02/10/18 16:00 Temperature 98.7 F Pulse Rate 80 80 80 Respiratory Rate 12 12 Blood Pressure 109/54 L Pulse Oximetry 94 L 02/10/18 16:46 02/10/18 18:00 02/10/18 20:00 Temperature 97.6 F Pulse Rate 80 80 80 Respiratory Rate 17 20 Blood Pressure 109/58 L Pulse Oximetry 92 L 02/10/18 21:28 02/10/18 22:00 02/11/18 00:00 Temperature 98.2 F Pulse Rate 80 80 80 Respiratory Rate 19 16 Blood Pressure 117/58 L Pulse Oximetry 93 L 93 L 02/11/18 00:03 02/11/18 02:00 02/11/18 04:00 Temperature 98.3 F Pulse Rate 80 80 80 Respiratory Rate 18 15 Blood Pressure 114/57 L Pulse Oximetry 96 02/11/18 04:40 02/11/18 06:00 02/11/18 07:56 Temperature Pulse Rate 80 80 80 Respiratory Rate 19 17 Blood Pressure Pulse Oximetry 99 Intake & Output 02/10/18 02/11/18 02/11/18 18:59 06:59 18:59 Intake Total 1250 / 1250 480 / 480 Output Total 325 / 325 150 / 150 Balance 925 / 925 330 / 330 Weight 90 kg Intake: Oral 1200 / 1200 480 / 480 Oral Supplement 50 / 50 Output: Urine 325 / 325 150 / 150 Other: # Voids 2 Date of Last Bowel Movement 02/10/18 02/11/18 # Bowel Movements 1 2 # Incontinent Bowel Movements 1 Result Diagrams: 02/11/18 05:13 02/11/18 05:13 Other Results: Laboratory Results - last 12 hr 02/10/18 02/11/18 02/11/18 23:51 05:13 05:13 WBC 13.1 H RBC 3.78 L Hgb 10.8 L Hct 33.4 L MCV 88.4 MCH 28.6 MCHC 32.4 RDW 21.1 H Plt Count 125 L MPV 10.0 Neut % (Auto) 94.3 H Lymph % (Auto) 1.4 L [place] % (Auto) 4.2 Eos % (Auto) 0.0 Baso % (Auto) 0.1 Neut # (Auto) 12.4 H Lymph # (Auto) 0.2 L [place] # (Auto) 0.6 Eos # (Auto) 0.0 Baso # (Auto) 0.0 WBC Differential . Differential Comment Auto diff final PT INR Sodium 132 L Potassium 5.0 Chloride 90 L Carbon Dioxide 27.7 Anion Gap 14 BUN 121 H Creatinine 7.71 H Estimated GFR 7 L POC Glucose 295 H Random Glucose 256 H Calcium 8.6 02/11/18 02/11/18 05:13 05:24 WBC RBC Hgb Hct MCV MCH MCHC RDW Plt Count MPV Neut % (Auto) Lymph % (Auto) [place] % (Auto) Eos % (Auto) Baso % (Auto) Neut # (Auto) Lymph # (Auto) [place] # (Auto) Eos # (Auto) Baso # (Auto) WBC Differential Differential Comment PT 25.1 H INR 2.5 Sodium Potassium Chloride Carbon Dioxide Anion Gap BUN Creatinine Estimated GFR POC Glucose 262 H Random Glucose Calcium Imaging: Abdomen X-Ray 01/23/18 23:05 CONCLUSION: 1. Nonobstructive bowel gas pattern. Chest CTA 01/30/18 00:00 CONCLUSION: 1. No evidence of pulmonary embolus. 2. Severe bilateral pulmonary parenchymal opacity with predominance at the dependent portions of the lungs. Difficult diagnosis includes pulmonary edema and infection. 3. Elongated lobulated nodular density in the right midlung following the major fissure likely represents loculated pleural effusion. 4. Enlarged pulmonary arteries suggesting pulmonary arterial hypertension. 5. Enlarged heart and small pericardial effusion. 6. Small left than right pleural effusions. 7. Mildly enlarged mediastinal lymph nodes, likely reactive. Chest X-Ray 02/09/18 08:04 CONCLUSION: 1. Cardiomegaly with interstitial edema. 2. Mild airspace disease in the right lung base, presumably atelectasis. Objective Remarks: GENERAL: Patient is 72 yo on high flow oxygen. SKIN: Warm and dry. HEAD: Normocephalic. EYES: No scleral icterus. No injection or drainage. NECK: Supple, trachea midline. No JVD or lymphadenopathy. CARDIOVASCULAR: Regular rate and rhythm without murmurs, gallops, or rubs. RESPIRATORY: Breath sounds equal bilaterally. No accessory muscle use. Few coarse BS GASTROINTESTINAL: Abdomen soft, non-tender, nondistended. MUSCULOSKELETAL: No cyanosis, or edema. Neuro: Awake, alert Assessment and Plan - Assessment and Plan Plan: Active Problems: Acute respiratory failure CAD CHF Possible COPD Atrial Fibrillation with rapid ventricular response end-stage renal disease requiring hemodialysis Persistent hypotension secondary to poor cardiac output Neuro: Follow neuro status. Pain medications as needed. Monitor neuro status CV: Monitor HR and BP keep MAP>65mmHg Status post cardiac cath. Being followed by Dr. Weinberg. s/p ablation and micra placement 02/02/18 due to failure of medical management for rate control Echo showed EF 60-65%, mod- severe pulm HTN 60-70mmHg On Lipitor 80mg qhs, Coumadin Pulmo: Wean down oxygen as mari keep sats >92% CT chest with no evidence of PE however did show emphysematous changes bilateral lower lobe consolidation changes as well as fluid in interlobar fissure on the right. Pulmonary arteries are enlarged with probable pulmonary hypertension. Continue with Bronchodilators, Solumederol 40mg Q12, On Symbicort. CXR: Diffuse interstitial disease On Revatio 30mg TID for pulm HTN GI/liver: P.o. diabetic/renal diet Renal/: Monitor renal function, I/O's, avoid nephrotoxins Renal is following. s/p HD 02/09: 3L removed ID: Off abx s/p Zosyn 01/24- 02/07) 02/09 Sputum: GNR. Start Cefepime 1gram IV Q8 Monitor for signs of infections ( Fever, WBC) Endocrine: SSI( high sale) for glycemic control, Levemir 5u BID Heme: Monitor CBC, Coags- INR 2.5 today Prophylaxis: Pepcid/SCDs. Anticoagulation with Coumadin. Level 3
[2018-02-11] MEDS: Senna/Docusate Sodium 8.6/50 MG Tablet PO SCH ×2 (09:22→20:52)
[2018-02-11] MEDS: Insulin Detemir Inj 1,000 UNIT/10 ML Vial SQ SCH ×2 (09:35→20:51)
[2018-02-11] MEDS: MethylPREDNISolone Sod Succinate Inj 40 MG/ML Vial IV.PUSH SCH ×2 (09:36→21:05)
[2018-02-11] MEDS: Budesonide-Formoterol 160/4.5 MCG 6 GM Inhaler INH SCH ×2 (09:36→20:52)
--- NOTE | 2018-02-11 12:26 | P.PNNP ---
Subjective Interval history: Seen during dialysis. On high flow 60%, 30 LPM. No new complaints. <Jyoti Ceron - Last Filed: 02/11/18 12:22> Physical Exam Vital signs: Vital Signs 02/10/18 12:43 02/10/18 14:00 02/10/18 16:00 Temperature 98.7 F Pulse Rate 80 80 80 Respiratory Rate 12 12 Blood Pressure 109/54 L Pulse Oximetry 94 L 02/10/18 16:46 02/10/18 18:00 02/10/18 20:00 Temperature 97.6 F Pulse Rate 80 80 80 Respiratory Rate 17 20 Blood Pressure 109/58 L Pulse Oximetry 92 L 02/10/18 21:28 02/10/18 22:00 02/11/18 00:00 Temperature 98.2 F Pulse Rate 80 80 80 Respiratory Rate 19 16 Blood Pressure 117/58 L Pulse Oximetry 93 L 93 L 02/11/18 00:03 02/11/18 02:00 02/11/18 04:00 Temperature 98.3 F Pulse Rate 80 80 80 Respiratory Rate 18 15 Blood Pressure 114/57 L Pulse Oximetry 96 02/11/18 04:40 02/11/18 06:00 02/11/18 07:56 Temperature Pulse Rate 80 80 80 Respiratory Rate 19 17 Blood Pressure Pulse Oximetry 99 02/11/18 08:00 02/11/18 10:00 Temperature 97.8 F Pulse Rate 80 80 Respiratory Rate Blood Pressure Pulse Oximetry 100 Intake & Output 02/10/18 02/11/18 02/11/18 18:59 06:59 18:59 Intake Total 1250 / 1250 480 / 480 Output Total 325 / 325 150 / 150 Balance 925 / 925 330 / 330 Weight 90 kg Intake: Oral 1200 / 1200 480 / 480 Oral Supplement 50 / 50 Output: Urine 325 / 325 150 / 150 Other: # Voids 2 Date of Last Bowel Movement 02/10/18 02/11/18 02/11/18 # Bowel Movements 1 2 # Incontinent Bowel Movements 1 - Constitutional no acute distress, chronically ill appearing, cooperative - Routine HEENT Exam Head: Present: normocephalic - Routine Neck Exam Present: supple, full ROM - Routine Respiratory Exam Present: rales. Absent: accessory muscle use, rhonchi, stridor, wheezes - Routine Cardiovascular Exam Present: S1, S2 Comments: paced rhythm - Routine Abdominal Exam Present: soft, normoactive bowel sounds - Routine Extremities Exam Present: full ROM, pulses intact, normal capillary refill, AV fistula, vascular access. Absent: edema - Routine Skin Exam Present: intact, dry, warm - Routine Neurological Exam Present: alert, oriented X3, CN II-XII intact, moving all extremities - Detailed Neurological Exam: Coma Scale Eye Opening: Spontaneous Verbal Response: Oriented Motor Response: Obey commands [place] Coma Scale Total: 15 - Routine Psychiatric Exam Present: normal affect, normal thought process <Jyoti Ceron - Last Filed: 02/11/18 12:22> Vital signs: Vital Signs 02/11/18 07:56 02/11/18 08:00 02/11/18 08:30 Temperature 97.8 F Pulse Rate 80 80 80 Respiratory Rate 17 Blood Pressure 125/57 L 117/55 L Pulse Oximetry 99 100 95 02/11/18 09:00 02/11/18 09:06 02/11/18 09:15 Temperature Pulse Rate 32 L 80 80 Respiratory Rate 22 19 Blood Pressure 115/59 L 113/55 L 110/56 L Pulse Oximetry 94 L 94 L 92 L 02/11/18 09:30 02/11/18 09:45 02/11/18 10:00 Temperature Pulse Rate 80 80 80 Respiratory Rate 20 28 H 24 Blood Pressure 101/58 L 103/57 L 100/54 L Pulse Oximetry 95 89 L 88 L 02/11/18 10:15 02/11/18 10:30 02/11/18 10:45 Temperature Pulse Rate 80 80 80 Respiratory Rate 31 H 15 16 Blood Pressure 99/54 L 106/51 L 100/54 L Pulse Oximetry 92 L 94 L 97 02/11/18 11:00 02/11/18 11:15 02/11/18 11:30 Temperature Pulse Rate 80 80 80 Respiratory Rate 18 29 H 15 Blood Pressure 101/52 L 82/53 L 94/53 L Pulse Oximetry 94 L 88 L 100 02/11/18 11:45 02/11/18 12:00 02/11/18 12:15 Temperature 98.0 F Pulse Rate 80 80 80 Respiratory Rate 13 16 19 Blood Pressure 93/52 L 100/56 L 94/47 L Pulse Oximetry 99 99 96 02/11/18 12:30 02/11/18 12:45 02/11/18 13:00 Temperature Pulse Rate 80 80 80 Respiratory Rate 16 20 18 Blood Pressure 95/53 L 95/51 L 90/49 L Pulse Oximetry 94 L 88 L 90 L 02/11/18 13:15 02/11/18 13:30 02/11/18 13:45 Temperature Pulse Rate 80 80 80 Respiratory Rate 26 H 22 27 H Blood Pressure 81/46 L 104/55 L 110/51 L Pulse Oximetry 88 L 91 L 85 L 02/11/18 14:00 02/11/18 14:15 02/11/18 14:30 Temperature Pulse Rate 80 80 80 Respiratory Rate 15 19 29 H Blood Pressure 109/55 L 110/57 L 113/59 L Pulse Oximetry 89 L 94 L 92 L 02/11/18 14:43 02/11/18 14:45 02/11/18 15:00 Temperature Pulse Rate 80 80 80 Respiratory Rate 19 23 17 Blood Pressure 122/60 116/55 L Pulse Oximetry 96 94 L 02/11/18 15:15 02/11/18 15:30 02/11/18 15:45 Temperature Pulse Rate 80 80 80 Respiratory Rate 12 18 12 Blood Pressure 119/56 L 114/56 L 110/56 L Pulse Oximetry 96 94 L 97 02/11/18 16:00 02/11/18 16:15 02/11/18 16:30 Temperature 97.9 F Pulse Rate 80 80 80 Respiratory Rate 13 13 19 Blood Pressure 109/55 L 111/58 L 95/54 L Pulse Oximetry 95 95 96 02/11/18 16:45 02/11/18 17:00 02/11/18 17:15 Temperature Pulse Rate 80 80 80 Respiratory Rate 16 15 20 Blood Pressure 105/58 L 106/53 L 109/54 L Pulse Oximetry 92 L 97 90 L 02/11/18 17:30 02/11/18 17:45 02/11/18 18:00 Temperature Pulse Rate 80 80 80 Respiratory Rate 16 23 20 Blood Pressure 98/54 L 102/53 L 92/52 L Pulse Oximetry 91 L 90 L 93 L 02/11/18 18:15 02/11/18 18:30 02/11/18 18:45 Temperature Pulse Rate 80 80 80 Respiratory Rate 24 31 H 27 H Blood Pressure 94/53 L 91/50 L 94/53 L Pulse Oximetry 88 L 87 L 89 L 02/11/18 19:00 02/11/18 19:15 02/11/18 19:30 Temperature Pulse Rate 80 80 80 Respiratory Rate 35 H 26 H 30 H Blood Pressure 100/55 L 94/52 L 120/53 L Pulse Oximetry 89 L 91 L 92 L 02/11/18 19:45 02/11/18 20:00 02/11/18 20:15 Temperature 98.7 F Pulse Rate 80 80 80 Respiratory Rate 15 18 16 Blood Pressure 108/53 L 94/50 L 108/54 L Pulse Oximetry 91 L 91 L 90 L 02/11/18 20:30 02/11/18 20:45 02/11/18 21:00 Temperature Pulse Rate 80 80 80 Respiratory Rate 24 24 23 Blood Pressure 104/52 L 132/58 L 117/53 L Pulse Oximetry 91 L 92 L 90 L 02/11/18 21:15 02/11/18 21:30 02/11/18 21:45 Temperature Pulse Rate 80 80 80 Respiratory Rate 22 23 21 Blood Pressure 104/54 L 109/59 L 129/57 L Pulse Oximetry 90 L 91 L 89 L 02/11/18 21:55 02/11/18 22:00 02/11/18 22:15 Temperature Pulse Rate 80 80 80 Respiratory Rate 18 21 14 Blood Pressure 124/57 L 102/53 L Pulse Oximetry 91 L 94 L 02/11/18 22:30 02/11/18 22:45 02/11/18 23:00 Temperature Pulse Rate 80 80 80 Respiratory Rate 11 L 16 24 Blood Pressure 107/52 L 114/57 L 112/56 L Pulse Oximetry 96 95 95 02/11/18 23:15 02/11/18 23:30 02/11/18 23:45 Temperature Pulse Rate 80 80 80 Respiratory Rate 20 29 H 12 Blood Pressure 102/50 L 94/54 L 102/52 L Pulse Oximetry 91 L 87 L 93 L 02/12/18 00:00 02/12/18 00:15 02/12/18 00:18 Temperature 98.2 F Pulse Rate 80 80 80 Respiratory Rate 10 L 13 17 Blood Pressure 115/57 L 113/55 L Pulse Oximetry 95 95 95 02/12/18 00:30 02/12/18 00:45 02/12/18 01:00 Temperature Pulse Rate 80 80 80 Respiratory Rate 12 28 H 20 Blood Pressure 109/54 L 120/55 L 126/61 Pulse Oximetry 95 90 L 90 L 02/12/18 01:15 02/12/18 01:30 02/12/18 01:45 Temperature Pulse Rate 80 80 80 Respiratory Rate 18 14 21 Blood Pressure 119/55 L 110/54 L 119/56 L Pulse Oximetry 90 L 92 L 94 L 02/12/18 02:00 02/12/18 02:01 02/12/18 02:15 Temperature Pulse Rate 80 80 80 Respiratory Rate 22 28 H 12 Blood Pressure 111/56 L 106/58 L Pulse Oximetry 91 L 93 L 97 02/12/18 02:30 02/12/18 02:45 02/12/18 03:00 Temperature Pulse Rate 80 80 80 Respiratory Rate 13 12 12 Blood Pressure 102/53 L 103/53 L 110/57 L Pulse Oximetry 96 95 96 02/12/18 03:15 02/12/18 03:30 02/12/18 03:45 Temperature Pulse Rate 80 80 80 Respiratory Rate 12 12 13 Blood Pressure 120/56 L 106/52 L 101/52 L Pulse Oximetry 97 96 97 02/12/18 04:00 02/12/18 04:16 02/12/18 04:30 Temperature Pulse Rate 80 80 80 Respiratory Rate 12 19 14 Blood Pressure 99/55 L 130/60 121/58 L Pulse Oximetry 97 88 L 94 L 02/12/18 04:45 02/12/18 04:49 02/12/18 05:00 Temperature Pulse Rate 80 83 80 Respiratory Rate 15 23 32 H Blood Pressure 109/55 L 123/59 L Pulse Oximetry 95 97 89 L 02/12/18 06:00 Temperature Pulse Rate 80 Respiratory Rate Blood Pressure Pulse Oximetry Intake & Output 02/11/18 02/12/18 02/12/18 18:59 06:59 18:59 Intake Total 1100 / 1100 480 / 480 Output Total 2510 / 2510 300 / 300 Balance -1410 / -1410 180 / 180 Weight 90 kg Intake: IV 100 / 100 Maxipime Inj 1,000 MG In NS Inj 100 / 100 100 ML @ 200 mls/hr IV.SIG Q8H [facility] Rx#:[id number] Oral 1000 / 1000 480 / 480 Output: Urine 300 / 300 Hemodialysis Amount 2500 / 2500 Other: Date of Last Bowel Movement 02/11/18 02/11/18 # Bowel Movements 2 <Eduardo Salvador - Last Filed: 02/12/18 07:43> Assessment and Plan - Assessment (1) ESRD (end stage renal disease) on dialysis Code(s): N18.6 - End stage renal disease; Z99.2 - Dependence on renal dialysis Status: Acute Plan: HD support continues MWF. Seen during dialysis today on a 2K, 350 BFR, goal 3L. Fluid removal has not improved hypoxia. Crit line being utilized during HD and not suggesting extensive fluid overload. Monitor electrolytes intermittently. Avoid IVF administration. Protect left arm from procedures, has new AV access that is not mature. Will need to follow with vascular at a later date. PermCath in place for HD use. Phosphorus level has been acceptable without binder therapy. High protein diet with Supplements ordered. He has been losing weight, needs continued nutritional support. (2) Hypoxia Code(s): R09.02 - Hypoxemia Status: Acute Plan: He is on high flow oxygen. Etiology is unclear. Patient may have interstitial lung disease. Pulmonary following. May need lung biopsy to assist in diagnosis. There is some history of occupational exposure to pulmonary toxins. (3) Atrial fibrillation with RVR Code(s): I48.91 - Unspecified atrial fibrillation Status: Acute Plan: Improved, s/p AV gilbert ablation with pacemaker placement. Off PO Amiodarone. Midodrine is ordered TID for hypotension. Cardiology following. Appreciate recommendations. (4) CHF (congestive heart failure) Code(s): I50.9 - Heart failure, unspecified Status: Acute Qualifiers: Heart failure type: unspecified Heart failure chronicity: unspecified Qualified Code(s): I50.9 - Heart failure, unspecified Plan: Stable. EF noted to be around 60%. Repeat echo shows no change in EF. He has mild aortic regurgitation. Fluid removal with dialysis. (5) Anemia in CKD (chronic kidney disease) Code(s): N18.9 - Chronic kidney disease, unspecified; D63.1 - Anemia in chronic kidney disease Status: Acute Plan: On Epogen with dialysis. Hemoglobin is acceptable. <Jyoti Ceron - Last Filed: 02/11/18 12:22> - Assessment (1) ESRD (end stage renal disease) on dialysis Code(s): N18.6 - End stage renal disease; Z99.2 - Dependence on renal dialysis Status: Acute (2) Hypoxia Code(s): R09.02 - Hypoxemia Status: Acute (3) Atrial fibrillation with RVR Code(s): I48.91 - Unspecified atrial fibrillation Status: Acute (4) CHF (congestive heart failure) Code(s): I50.9 - Heart failure, unspecified Status: Acute Qualifiers: Heart failure type: unspecified Heart failure chronicity: unspecified Qualified Code(s): I50.9 - Heart failure, unspecified (5) Anemia in CKD (chronic kidney disease) Code(s): N18.9 - Chronic kidney disease, unspecified; D63.1 - Anemia in chronic kidney disease Status: Acute - Attending Attestation patient was seen and examined. Agree with above assessment and plan. Patient has been placed on Sildenafil. Still hypoxic. May need lung biopsy. <Eduardo Salvador - Last Filed: 02/12/18 07:43>
[2018-02-11] MEDS: Morphine Inj 4 MG/ML Vial IV.PUSH PRN (13:01)
--- NOTE | 2018-02-11 15:04 | P.PNPAL ---
Reason for Visit Reason for visit: a. To assist with evaluation and management of symptoms including: Dyspnea, weakness b. To assist medical decision maker(s) with: better understanding of current medical conditions; weighing benefits/burdens of medical treatment options; making medical treatment decisions. Subjective Subjective/Interval History: Patient seen today for follow-up on symptom management of dyspnea, weakness. Patient underwent insertion of a Medtronic Micra pacemaker followed by AV gilbert ablation, and he is 100% paced since then. He has no pain, and he does not feel dyspneic at rest, but he feels quite weak overall, "each day little weaker." He remains on high flow 30 L oxygen. The particular etiology for his hypoxic respiratory failure is not specified completely, but he does have exposure in the past 2 cigarettes, asbestos, concrete dust, and agent orange. Dr. Moore is planning on talking with the patient about considering a lung biopsy... . Family/Friend Interactions: Discussed by telephone at length with the patient's daughter Dinorah. She has a background of respiratory therapy and understands the implications of his high oxygen requirements, and the precarious respiratory situation that he is in. She does want to discuss the option of lung biopsy further before knowing how to staff counselor him.. Advance Directives Health Care Surrogate: Copy in medical record Advance Directives Date on File: 02/02/18 Health Care Surrogate Name and Number: daughter Ms. Greer Objective Vital Signs: Vital Signs 02/10/18 16:00 02/10/18 16:46 02/10/18 18:00 Temperature 98.7 F Pulse Rate 80 80 80 Respiratory Rate 12 17 Blood Pressure 109/54 L Pulse Oximetry 94 L 02/10/18 20:00 02/10/18 21:28 02/10/18 22:00 Temperature 97.6 F Pulse Rate 80 80 80 Respiratory Rate 20 19 Blood Pressure 109/58 L Pulse Oximetry 92 L 93 L 02/11/18 00:00 02/11/18 00:03 02/11/18 02:00 Temperature 98.2 F Pulse Rate 80 80 80 Respiratory Rate 16 18 Blood Pressure 117/58 L Pulse Oximetry 93 L 02/11/18 04:00 02/11/18 04:40 02/11/18 06:00 Temperature 98.3 F Pulse Rate 80 80 80 Respiratory Rate 15 19 Blood Pressure 114/57 L Pulse Oximetry 96 02/11/18 07:00 02/11/18 07:30 02/11/18 07:56 Temperature Pulse Rate 80 80 80 Respiratory Rate 17 Blood Pressure 116/58 L 126/61 Pulse Oximetry 95 100 99 02/11/18 08:00 02/11/18 08:30 02/11/18 09:00 Temperature 97.8 F Pulse Rate 80 80 32 L Respiratory Rate Blood Pressure 125/57 L 117/55 L 115/59 L Pulse Oximetry 100 95 94 L 02/11/18 09:06 02/11/18 09:15 02/11/18 09:30 Temperature Pulse Rate 80 80 80 Respiratory Rate 22 19 20 Blood Pressure 113/55 L 110/56 L 101/58 L Pulse Oximetry 94 L 92 L 95 02/11/18 09:45 02/11/18 10:00 02/11/18 10:15 Temperature Pulse Rate 80 80 80 Respiratory Rate 28 H 24 31 H Blood Pressure 103/57 L 100/54 L 99/54 L Pulse Oximetry 89 L 88 L 92 L 02/11/18 10:30 02/11/18 10:45 02/11/18 11:00 Temperature Pulse Rate 80 80 80 Respiratory Rate 15 16 18 Blood Pressure 106/51 L 100/54 L 101/52 L Pulse Oximetry 94 L 97 94 L 02/11/18 11:15 02/11/18 11:30 02/11/18 11:45 Temperature Pulse Rate 80 80 80 Respiratory Rate 29 H 15 13 Blood Pressure 82/53 L 94/53 L 93/52 L Pulse Oximetry 88 L 100 99 02/11/18 12:00 02/11/18 12:15 02/11/18 12:30 Temperature 98.0 F Pulse Rate 80 80 80 Respiratory Rate 16 19 16 Blood Pressure 100/56 L 94/47 L 95/53 L Pulse Oximetry 99 96 94 L 02/11/18 12:45 02/11/18 13:00 02/11/18 13:15 Temperature Pulse Rate 80 80 80 Respiratory Rate 20 18 26 H Blood Pressure 95/51 L 90/49 L 81/46 L Pulse Oximetry 88 L 90 L 88 L 02/11/18 13:30 02/11/18 13:45 02/11/18 14:43 Temperature Pulse Rate 80 80 80 Respiratory Rate 22 27 H 19 Blood Pressure 104/55 L 110/51 L Pulse Oximetry 91 L 85 L Intake & Output 02/10/18 02/11/18 02/11/18 18:59 06:59 18:59 Intake Total 1250 / 1250 480 / 480 Output Total 325 / 325 150 / 150 Balance 925 / 925 330 / 330 Weight 90 kg Intake: Oral 1200 / 1200 480 / 480 Oral Supplement 50 / 50 Output: Urine 325 / 325 150 / 150 Other: # Voids 2 Date of Last Bowel Movement 02/10/18 02/11/18 02/11/18 # Bowel Movements 1 2 # Incontinent Bowel Movements 1 Physical Exam: CONSTITUTIONAL/GENERAL: This is an adequately nourished patient, appears weak, in no apparent distress. NECK: Trachea midline. Supple, nontender. No palpable thyroid enlargement or nodularity. CARDIOVASCULAR: regular rhythm, paced rate 80, no rub murmur or gallop. RESPIRATORY/CHEST: Diminished breath sounds with bibasilar crackles, some accessory muscle use noted today, No rhonchi or wheezes. GASTROINTESTINAL: Abdomen soft, non-tender, nondistended. No hepato-splenomegaly , or palpable masses. No guarding. Bowel sounds present. MUSCULOSKELETAL: Extremities without clubbing, cyanosis, or edema. No joint tenderness or effusion noted. No calf tenderness. No mottling or clubbing. NEUROLOGICAL: Appears weak, fatigued, oriented 4. Motor and sensory grossly within normal limits. Follows commands. Moves all extremities. PSYCHIATRIC: No obvious anxiety, no evidence of psychosis. . Diagnostic Tests Laboratory: Laboratory Results - last 72 hr 02/08/18 02/08/18 02/09/18 18:15 23:29 04:15 WBC RBC Hgb Hct MCV MCH MCHC RDW Plt Count MPV Neut % (Auto) Lymph % (Auto) [place] % (Auto) Eos % (Auto) Baso % (Auto) Neut # (Auto) Lymph # (Auto) [place] # (Auto) Eos # (Auto) Baso # (Auto) WBC Differential Differential Comment PT 24.1 H INR 2.4 Sodium Potassium Chloride Carbon Dioxide Anion Gap BUN Creatinine Estimated GFR POC Glucose 317 H 259 H Random Glucose Calcium 02/09/18 02/09/18 02/09/18 04:15 04:15 06:11 WBC 15.7 H RBC 3.86 L Hgb 11.0 L Hct 34.3 L MCV 88.9 MCH 28.4 MCHC 31.9 L RDW 19.8 H Plt Count 144 L MPV 9.8 Neut % (Auto) 95.7 H Lymph % (Auto) 1.0 L [place] % (Auto) 3.3 Eos % (Auto) 0.0 Baso % (Auto) 0.0 Neut # (Auto) 15.0 H Lymph # (Auto) 0.2 L [place] # (Auto) 0.5 Eos # (Auto) 0.0 Baso # (Auto) 0.0 WBC Differential . Differential Comment Auto diff final PT INR Sodium 134 L Potassium 4.9 Chloride 92 L Carbon Dioxide 29.7 Anion Gap 12 BUN 111 H Creatinine 7.46 H Estimated GFR 7 L POC Glucose 271 H Random Glucose 225 H Calcium 9.1 02/09/18 02/09/18 02/09/18 11:37 17:59 23:31 WBC RBC Hgb Hct MCV MCH MCHC RDW Plt Count MPV Neut % (Auto) Lymph % (Auto) [place] % (Auto) Eos % (Auto) Baso % (Auto) Neut # (Auto) Lymph # (Auto) [place] # (Auto) Eos # (Auto) Baso # (Auto) WBC Differential Differential Comment PT INR Sodium Potassium Chloride Carbon Dioxide Anion Gap BUN Creatinine Estimated GFR POC Glucose 148 H 257 H 111 H Random Glucose Calcium 02/10/18 02/10/18 02/10/18 05:58 06:10 06:10 WBC 13.6 H RBC 3.82 L Hgb 10.9 L Hct 33.6 L MCV 88.1 MCH 28.5 MCHC 32.4 RDW 20.9 H Plt Count 127 L MPV 10.1 Neut % (Auto) 93.9 H Lymph % (Auto) 1.5 L [place] % (Auto) 4.5 Eos % (Auto) 0.0 Baso % (Auto) 0.1 Neut # (Auto) 12.8 H Lymph # (Auto) 0.2 L [place] # (Auto) 0.6 Eos # (Auto) 0.0 Baso # (Auto) 0.0 WBC Differential . Differential Comment Auto diff final PT 27.4 H INR 2.7 Sodium Potassium Chloride Carbon Dioxide Anion Gap BUN Creatinine Estimated GFR POC Glucose 246 H Random Glucose Calcium 02/10/18 02/10/18 02/10/18 06:10 11:06 17:20 WBC RBC Hgb Hct MCV MCH MCHC RDW Plt Count MPV Neut % (Auto) Lymph % (Auto) [place] % (Auto) Eos % (Auto) Baso % (Auto) Neut # (Auto) Lymph # (Auto) [place] # (Auto) Eos # (Auto) Baso # (Auto) WBC Differential Differential Comment PT INR Sodium 136 Potassium 4.9 Chloride 94 L Carbon Dioxide 31.4 Anion Gap 11 BUN 86 H Creatinine 6.20 H Estimated GFR 9 L POC Glucose 241 H 111 H Random Glucose 255 H Calcium 9.0 02/10/18 02/11/18 02/11/18 23:51 05:13 05:13 WBC 13.1 H RBC 3.78 L Hgb 10.8 L Hct 33.4 L MCV 88.4 MCH 28.6 MCHC 32.4 RDW 21.1 H Plt Count 125 L MPV 10.0 Neut % (Auto) 94.3 H Lymph % (Auto) 1.4 L [place] % (Auto) 4.2 Eos % (Auto) 0.0 Baso % (Auto) 0.1 Neut # (Auto) 12.4 H Lymph # (Auto) 0.2 L [place] # (Auto) 0.6 Eos # (Auto) 0.0 Baso # (Auto) 0.0 WBC Differential . Differential Comment Auto diff final PT INR Sodium 132 L Potassium 5.0 Chloride 90 L Carbon Dioxide 27.7 Anion Gap 14 BUN 121 H Creatinine 7.71 H Estimated GFR 7 L POC Glucose 295 H Random Glucose 256 H Calcium 8.6 02/11/18 02/11/18 02/11/18 05:13 05:24 12:56 WBC RBC Hgb Hct MCV MCH MCHC RDW Plt Count MPV Neut % (Auto) Lymph % (Auto) [place] % (Auto) Eos % (Auto) Baso % (Auto) Neut # (Auto) Lymph # (Auto) [place] # (Auto) Eos # (Auto) Baso # (Auto) WBC Differential Differential Comment PT 25.1 H INR 2.5 Sodium Potassium Chloride Carbon Dioxide Anion Gap BUN Creatinine Estimated GFR POC Glucose 262 H 237 H Random Glucose Calcium Result Diagrams: 02/11/18 05:13 02/11/18 05:13 Microbiology: Microbiology 02/09/18 10:30 Gram Stain - Final Sputum - Expectorated Sputum Sputum Culture - Final Klebsiella pneumoniae Procedures: 01/26/18: Cardiac catheterization 02/02/18: Cardiac catheterization: Insertion of Medtronic Micra and AV gilbert ablation Assessment and Plan - Disease Oriented Problem List (1) Atrial fibrillation with rapid ventricular response (2) Chronic kidney disease with end stage renal failure on dialysis (3) Respiratory failure Comment: Hypoxic, requiring high flow oxygen Pertinent Non-Medical Issues: Psychosocial:He was born in [place] but has been in [place] for many years , 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 Legal:His daughter, Dinorah Greer, is his healthcare decision maker/HCS. Ethical issues impacting care: None noted. Important Contacts: Daughter: Dinorah Greer (Cindy) . Prognosis: His prognosis is poor. He has significant hypoxic lung disease/respiratory failure, end-stage renal disease, diabetes, hypertension and is at risk for further complications and decline. He is likely terminal, and would be appropriate for hospice his goals were to comfort oriented. . Code Status: Full Code Plan: PLAN: FULL CODE, confirmed with patient again 02/09/18 DECISION-MAKING: The patient is capacitated to make his own decisions however requests assisted decision making with his daughter, Dinorah Greer (Cindy). He has chosen her to be his HCS. GOALS: Aggressive. Patient states he does not want to sign a DNR and would accept mechanical ventilation if required. SYMPTOMS: * Weakness: Progressively worsening, secondary to extended ICU status, bedbound status, severe respiratory insufficiency, increased work of breathing. Unable to effectively participate in PT due to dyspnea and weakness. * Dyspnea: Multifactorial to include past history of smoking, prior asbestos exposure, prior exposure to concrete dust, atrial fibrillation, as well as agent orange exposure in [place]. He continues to require high flow nasal cannula. His respiratory status would be expected to continue to decline in the upcoming days/weeks, and he is at risk of requiring intubation if his goals remain aggressive. Dr. Moore may discuss the option of lung biopsy with the patient and his daughter. Palliative care will continue to follow the patient during hospitalization. . Time Spent Total Floor Time (mins): 41 Face to Face Time (mins): 20 >50% Time in Counseling or Coordination of Care: Yes (d/w RN and w Dr. Moore) Attestation Attestation: To help prompt me to consider important information that might be impacting today's encounter and assessment, information from prior notes written by myself or my colleagues may have been "brought forward" into today's note. My signature on this note, however, is an attestation that I personally performed the exam, history, and/or decision-making noted today, and, unless otherwise indicated, the interactions with patient, family, and staff as well as the review of records all occurred today. I also attest that the listed assessment and stated plan reflect my best clinical judgment today based on the combination of historical information, prior notes, and today's exam/ interactions. When time spent is documented, it refers only to time spent today by the signer, or if indicated, combined time spent today by collaborating physician/nurse practitioner.
--- NOTE | 2018-02-11 16:27 | P.PNCA ---
Subjective Interval history: asleep in nad Physical Exam Vital signs: Vital Signs 02/10/18 16:46 02/10/18 18:00 02/10/18 20:00 Temperature 97.6 F Pulse Rate 80 80 80 Respiratory Rate 17 20 Blood Pressure 109/58 L Pulse Oximetry 92 L 02/10/18 21:28 02/10/18 22:00 02/11/18 00:00 Temperature 98.2 F Pulse Rate 80 80 80 Respiratory Rate 19 16 Blood Pressure 117/58 L Pulse Oximetry 93 L 93 L 02/11/18 00:03 02/11/18 02:00 02/11/18 04:00 Temperature 98.3 F Pulse Rate 80 80 80 Respiratory Rate 18 15 Blood Pressure 114/57 L Pulse Oximetry 96 02/11/18 04:40 02/11/18 06:00 02/11/18 07:00 Temperature Pulse Rate 80 80 80 Respiratory Rate 19 Blood Pressure 116/58 L Pulse Oximetry 95 02/11/18 07:30 02/11/18 07:56 02/11/18 08:00 Temperature 97.8 F Pulse Rate 80 80 80 Respiratory Rate 17 Blood Pressure 126/61 125/57 L Pulse Oximetry 100 99 100 02/11/18 08:30 02/11/18 09:00 02/11/18 09:06 Temperature Pulse Rate 80 32 L 80 Respiratory Rate 22 Blood Pressure 117/55 L 115/59 L 113/55 L Pulse Oximetry 95 94 L 94 L 02/11/18 09:15 02/11/18 09:30 02/11/18 09:45 Temperature Pulse Rate 80 80 80 Respiratory Rate 19 20 28 H Blood Pressure 110/56 L 101/58 L 103/57 L Pulse Oximetry 92 L 95 89 L 02/11/18 10:00 02/11/18 10:15 02/11/18 10:30 Temperature Pulse Rate 80 80 80 Respiratory Rate 24 31 H 15 Blood Pressure 100/54 L 99/54 L 106/51 L Pulse Oximetry 88 L 92 L 94 L 02/11/18 10:45 02/11/18 11:00 02/11/18 11:15 Temperature Pulse Rate 80 80 80 Respiratory Rate 16 18 29 H Blood Pressure 100/54 L 101/52 L 82/53 L Pulse Oximetry 97 94 L 88 L 02/11/18 11:30 02/11/18 11:45 02/11/18 12:00 Temperature 98.0 F Pulse Rate 80 80 80 Respiratory Rate 15 13 16 Blood Pressure 94/53 L 93/52 L 100/56 L Pulse Oximetry 100 99 99 02/11/18 12:15 02/11/18 12:30 02/11/18 12:45 Temperature Pulse Rate 80 80 80 Respiratory Rate 19 16 20 Blood Pressure 94/47 L 95/53 L 95/51 L Pulse Oximetry 96 94 L 88 L 02/11/18 13:00 02/11/18 13:15 02/11/18 13:30 Temperature Pulse Rate 80 80 80 Respiratory Rate 18 26 H 22 Blood Pressure 90/49 L 81/46 L 104/55 L Pulse Oximetry 90 L 88 L 91 L 02/11/18 13:45 02/11/18 14:00 02/11/18 14:43 Temperature Pulse Rate 80 80 80 Respiratory Rate 27 H 19 Blood Pressure 110/51 L Pulse Oximetry 85 L Intake & Output 02/10/18 02/11/18 02/11/18 18:59 06:59 18:59 Intake Total 1250 / 1250 480 / 480 Output Total 325 / 325 150 / 150 Balance 925 / 925 330 / 330 Weight 90 kg Intake: Oral 1200 / 1200 480 / 480 Oral Supplement 50 / 50 Output: Urine 325 / 325 150 / 150 Other: # Voids 2 Date of Last Bowel Movement 02/10/18 02/11/18 02/11/18 # Bowel Movements 1 2 # Incontinent Bowel Movements 1 Assessment and Plan - Assessment (1) Atrial fibrillation with rapid ventricular response Code(s): I48.91 - Unspecified atrial fibrillation Status: Acute (2) CHF (congestive heart failure) Code(s): I50.9 - Heart failure, unspecified Status: Acute (3) Chronic kidney disease with end stage renal failure on dialysis Code(s): N18.6 - End stage renal disease; Z99.2 - Dependence on renal dialysis Status: Acute (4) Atrial fibrillation with RVR Code(s): I48.91 - Unspecified atrial fibrillation Status: Acute (5) ESRD (end stage renal disease) on dialysis Code(s): N18.6 - End stage renal disease; Z99.2 - Dependence on renal dialysis Status: Acute - Plan 1.) Afib with rvr - s/p ablation and micra placement 8/6/18 due to failure of medical management for rate control, d/w patient, inr therapeutic, hgb stable, rate controlled 2.) CAD - continue, lipitor, coumadin at 3 mg qd, has hemoptyis which is improving, f/u inr and cbc in am (2) CHF (congestive heart failure) Qualifiers: Heart failure type: unspecified Heart failure chronicity: unspecified Qualified Code(s): I50.9 - Heart failure, unspecified
--- NOTE | 2018-02-11 18:43 | P.PN ---
Subjective Interval history: alert on high flow nasal O2 Physical Exam Vital signs: Vital Signs 02/10/18 20:00 02/10/18 21:28 02/10/18 22:00 Temperature 97.6 F Pulse Rate 80 80 80 Respiratory Rate 20 19 Blood Pressure 109/58 L Pulse Oximetry 92 L 93 L 02/11/18 00:00 02/11/18 00:03 02/11/18 02:00 Temperature 98.2 F Pulse Rate 80 80 80 Respiratory Rate 16 18 Blood Pressure 117/58 L Pulse Oximetry 93 L 02/11/18 04:00 02/11/18 04:40 02/11/18 06:00 Temperature 98.3 F Pulse Rate 80 80 80 Respiratory Rate 15 19 Blood Pressure 114/57 L Pulse Oximetry 96 02/11/18 07:00 02/11/18 07:30 02/11/18 07:56 Temperature Pulse Rate 80 80 80 Respiratory Rate 17 Blood Pressure 116/58 L 126/61 Pulse Oximetry 95 100 99 02/11/18 08:00 02/11/18 08:30 02/11/18 09:00 Temperature 97.8 F Pulse Rate 80 80 32 L Respiratory Rate Blood Pressure 125/57 L 117/55 L 115/59 L Pulse Oximetry 100 95 94 L 02/11/18 09:06 02/11/18 09:15 02/11/18 09:30 Temperature Pulse Rate 80 80 80 Respiratory Rate 22 19 20 Blood Pressure 113/55 L 110/56 L 101/58 L Pulse Oximetry 94 L 92 L 95 02/11/18 09:45 02/11/18 10:00 02/11/18 10:15 Temperature Pulse Rate 80 80 80 Respiratory Rate 28 H 24 31 H Blood Pressure 103/57 L 100/54 L 99/54 L Pulse Oximetry 89 L 88 L 92 L 02/11/18 10:30 02/11/18 10:45 02/11/18 11:00 Temperature Pulse Rate 80 80 80 Respiratory Rate 15 16 18 Blood Pressure 106/51 L 100/54 L 101/52 L Pulse Oximetry 94 L 97 94 L 02/11/18 11:15 02/11/18 11:30 02/11/18 11:45 Temperature Pulse Rate 80 80 80 Respiratory Rate 29 H 15 13 Blood Pressure 82/53 L 94/53 L 93/52 L Pulse Oximetry 88 L 100 99 02/11/18 12:00 02/11/18 12:15 02/11/18 12:30 Temperature 98.0 F Pulse Rate 80 80 80 Respiratory Rate 16 19 16 Blood Pressure 100/56 L 94/47 L 95/53 L Pulse Oximetry 99 96 94 L 02/11/18 12:45 02/11/18 13:00 02/11/18 13:15 Temperature Pulse Rate 80 80 80 Respiratory Rate 20 18 26 H Blood Pressure 95/51 L 90/49 L 81/46 L Pulse Oximetry 88 L 90 L 88 L 02/11/18 13:30 02/11/18 13:45 02/11/18 14:00 Temperature Pulse Rate 80 80 80 Respiratory Rate 22 27 H 15 Blood Pressure 104/55 L 110/51 L 109/55 L Pulse Oximetry 91 L 85 L 89 L 02/11/18 14:15 02/11/18 14:30 02/11/18 14:43 Temperature Pulse Rate 80 80 80 Respiratory Rate 19 29 H 19 Blood Pressure 110/57 L 113/59 L Pulse Oximetry 94 L 92 L 02/11/18 14:45 02/11/18 15:00 02/11/18 15:15 Temperature Pulse Rate 80 80 80 Respiratory Rate 23 17 12 Blood Pressure 122/60 116/55 L 119/56 L Pulse Oximetry 96 94 L 96 02/11/18 15:30 02/11/18 15:45 02/11/18 16:00 Temperature 97.9 F Pulse Rate 80 80 80 Respiratory Rate 18 12 13 Blood Pressure 114/56 L 110/56 L 109/55 L Pulse Oximetry 94 L 97 95 02/11/18 16:15 02/11/18 16:30 02/11/18 16:45 Temperature Pulse Rate 80 80 80 Respiratory Rate 13 19 16 Blood Pressure 111/58 L 95/54 L 105/58 L Pulse Oximetry 95 96 92 L 02/11/18 17:00 02/11/18 17:15 02/11/18 17:30 Temperature Pulse Rate 80 80 80 Respiratory Rate 15 20 16 Blood Pressure 106/53 L 109/54 L 98/54 L Pulse Oximetry 97 90 L 91 L 02/11/18 17:45 02/11/18 18:00 02/11/18 18:15 Temperature Pulse Rate 80 80 80 Respiratory Rate 23 20 24 Blood Pressure 102/53 L 92/52 L 94/53 L Pulse Oximetry 90 L 93 L 88 L Intake & Output 02/10/18 02/11/18 02/11/18 18:59 06:59 18:59 Intake Total 1250 / 1250 480 / 480 1000 / 1000 Output Total 325 / 325 150 / 150 2510 / 2510 Balance 925 / 925 330 / 330 -1510 / -1510 Weight 90 kg Intake: Oral 1200 / 1200 480 / 480 1000 / 1000 Oral Supplement 50 / 50 Output: Urine 325 / 325 150 / 150 10 / 10 Hemodialysis Amount 2500 / 2500 Other: # Voids 2 Date of Last Bowel Movement 02/10/18 02/11/18 02/11/18 # Bowel Movements 1 2 2 # Incontinent Bowel Movements 1 Narrative: GENERAL: Frail, elderly. HEENT: PERRL CARDIOVASCULAR: Paced rhythm. RESPIRATORY: bilateral wheezes, rhonchi GASTROINTESTINAL: Abdomen soft, non-tender, nondistended. Hepatic and splenic margins not palpable. Decreased bowel sounds. MUSCULOSKELETAL: Extremities without clubbing, cyanosis, mild edema. No obvious deformities. Cath site without hematoma. NEUROLOGICAL: Awake and alert. No obvious cranial nerve deficits. Results - Labs CBC & Chem 7: 02/11/18 05:13 02/11/18 05:13 Laboratory Results - last 24 hr 02/10/18 02/11/18 02/11/18 23:51 05:13 05:13 WBC 13.1 H RBC 3.78 L Hgb 10.8 L Hct 33.4 L MCV 88.4 MCH 28.6 MCHC 32.4 RDW 21.1 H Plt Count 125 L MPV 10.0 Neut % (Auto) 94.3 H Lymph % (Auto) 1.4 L Gates % (Auto) 4.2 Eos % (Auto) 0.0 Baso % (Auto) 0.1 Neut # (Auto) 12.4 H Lymph # (Auto) 0.2 L Gates # (Auto) 0.6 Eos # (Auto) 0.0 Baso # (Auto) 0.0 WBC Differential . Differential Comment Auto diff final PT INR Sodium 132 L Potassium 5.0 Chloride 90 L Carbon Dioxide 27.7 Anion Gap 14 BUN 121 H Creatinine 7.71 H Estimated GFR 7 L POC Glucose 295 H Random Glucose 256 H Calcium 8.6 02/11/18 02/11/18 02/11/18 05:13 05:24 12:56 WBC RBC Hgb Hct MCV MCH MCHC RDW Plt Count MPV Neut % (Auto) Lymph % (Auto) Gates % (Auto) Eos % (Auto) Baso % (Auto) Neut # (Auto) Lymph # (Auto) Gates # (Auto) Eos # (Auto) Baso # (Auto) WBC Differential Differential Comment PT 25.1 H INR 2.5 Sodium Potassium Chloride Carbon Dioxide Anion Gap BUN Creatinine Estimated GFR POC Glucose 262 H 237 H Random Glucose Calcium 02/11/18 17:28 WBC RBC Hgb Hct MCV MCH MCHC RDW Plt Count MPV Neut % (Auto) Lymph % (Auto) Gates % (Auto) Eos % (Auto) Baso % (Auto) Neut # (Auto) Lymph # (Auto) Gates # (Auto) Eos # (Auto) Baso # (Auto) WBC Differential Differential Comment PT INR Sodium Potassium Chloride Carbon Dioxide Anion Gap BUN Creatinine Estimated GFR POC Glucose 74 Random Glucose Calcium Microbiology 02/09/18 10:30 Sputum - Expectorated Sputum Gram Stain - Final 02/09/18 10:30 Sputum - Expectorated Sputum Sputum Culture - Final Klebsiella pneumoniae Assessment and Plan - Plan RESPIRATORY FAILURE, IMPROVING RENAL FAILURE ? COPD Chest pain CHF POST AV NODE ABLATION PULM HTN PLAN O2 NEEDED BRONCHODILATOR THERAPY INCREASE ACTIVITY taper steroids THERAPY FOR PAH IF NO IMPROVEMENT , WILL NEED BIOPSY
[2018-02-12] MEDS: Insulin NovoLIN Regular Correctional Sugar Inj SQ SCH ×4 (00:45→17:23)
[2018-02-12 05:51] LABS: Baso % (Auto) 0.1 % (0.0-2.0); Hematocrit 34.5 % (39.0-51.0); Hemoglobin 11.1 gm/dL (13.0-17.0); Lymph # (Auto) 0.2 th/mm3 (1.0-4.8); Lymph % (Auto) 1.6 % (9.0-44.0); Mean Corpuscular HGB Conc 32.2 % (32.0-36.0); Mean Corpuscular Hemoglobin 28.9 pg (27.0-34.0); Mean Corpuscular Volume 89.9 fL (80.0-100.0); Mean Platelet Volume 10.1 fL (7.0-11.0); Mono # (Auto) 0.5 th/mm3 (0.0-0.9); Mono % (Auto) 3.8 % (0.0-8.0); Neut # (Auto) 11.5 th/mm3 (1.8-7.7); Neut % (Auto) 94.5 % (16.0-70.0); Platelet Count 113 th/mm3 (150-450); Red Blood Count 3.84 mil/mm3 (4.50-5.90); Red Cell Distribution Width 21.8 % (11.6-17.2); White Blood Count 12.2 th/mm3 (4.0-11.0)
[2018-02-12 05:56] LABS: INR 2.7 Ratio; Prothrombin Time 27.3 sec (9.8-11.6)
[2018-02-12 06:17] LABS: Calcium 8.6 mg/dL (8.5-10.1); Carbon Dioxide 27.9 meq/L (21.0-32.0); Potassium 4.8 meq/L (3.5-5.1)
[2018-02-12] MEDS: Senna/Docusate Sodium 8.6/50 MG Tablet PO SCH ×2 (08:02→21:17)
[2018-02-12] MEDS: Insulin Detemir Inj 1,000 UNIT/10 ML Vial SQ SCH ×2 (08:03→21:18)
[2018-02-12] MEDS: Budesonide-Formoterol 160/4.5 MCG 6 GM Inhaler INH SCH ×2 (08:03→21:17)
[2018-02-12] MEDS: MethylPREDNISolone Sod Succinate Inj 40 MG/ML Vial IV.PUSH SCH ×2 (10:00→21:18)
--- NOTE | 2018-02-12 12:12 | P.PNCC ---
Subjective Subjective Remarks/Hospital Course: This is a 72yM with history of ESRD on HD who was recently admitted last month for supraventricular tachycardia. It appears from the records that normal sinus rhythm was restored prior to discharge home. He re-presented to the hospital with atrial fibrillation with rapid ventricular response which has been poorly responsive to esmolol infusion. It is noted that there is still a shortage of diltiazem infusions, so none is available to place the patient on. Dr. Waters with cardiology was consulted, as was Dr. Weinberg. The patient has also had hypotension during this hospital stay with most blood pressure readings between 80-100 systolic. This morning, Bystolic was started and was given together with amiodarone 400mg and metoprolol 25mg po. Approximately 2 hours after this, his blood pressure dropped into the 60s and 70s systolic. I was consulted by Dr. Wilcox to evaluate and manage his hemodynamics in the setting of poorly-controlled atrial fibrillation and hypotension. The patient does complain of light-headedness and a little chest discomfort which is new since his blood pressure has dropped into the 70s. He denies any other complaints and tolerated breakfast this AM. ROS otherwise negative. troponins have been serially negative this admission. I performed bedside critical care echocardiography and compared this to images obtained from last hospital admission on 11/2017. Given the poorly controlled nature of the patient's rate, wall motion and accurate ejection fraction are difficult to assess with accuracy. It does appear that the patient has relatively preserved EF and at most only mildly depressed LVEF. Aortic valve is sclerotic but appears unchanged from prior echo which calculated the valve area at ~2cm. no pericardial effusion. IVC is dilated around 2cm without respiratory variation. heart rate on my evaluation is 121. 8/2: Critical care reconsulted by Dr. Weinberg for worsening respiratory failure. Patient dropped O2 sats to 84% on 6 L nasal cannula. When I evaluated patient he was resting in bed. Placed him on high flow nasal cannula 30 L/min 60% FiO2 with which his O2 sats came up to 90%. 01/30: Remains on high flow nasal cannula. CT chest negative for PE shows consolidation bilateral lower lobes and a loculated effusion on the right. Defer to pulmonary regarding further recommendations. 01/31: Remains on high flow nasal cannula. Being dialyzed currently. On 30 L/ min 60% FiO2. O2 sats 96%. Feels that he is breathing a little better. 02/01, 02/02: On high flow nasal cannula at 20 L/min 50% FiO2. Shortness of breath gradually improving. 02/03: On high flow nasal cannula 20 L/min 60% FiO2. Underwent mitral implantation and AV gilbert ablation yesterday by Dr. Weinberg. Sitting up in bed today. Appears comfortable not in any acute distress. 02/04 Patient 02/04 Patient is awake and alert on high flow oxygen 25L with 70% FIO2> Afebrile. For HD today 02/05 No events overnight. s/p HD yesterday with removal 5L. Afebrile. On 25L with FIO2 down to 50% 02/06 Patient remains on high flow oxygen with 25L 55%FIO2. Afebrile. 02/07 Patient s/p HD yesterday with removal 4.5L. Remains on high flow oxygen 25L with 50% FIO2. Afebrile. 02/08 Patient s/p HD yesterday with removal 3L. On high flow oxygen. Afebrile. 02/09 Patient remains on high flow oxygen 25L with 55% FIO2. Afebrile. For HD today 02/10 Patient is awake and alert. s/p HD yesterday with removal 3L. On 30L with 60% FIO2. Afebrile. 02/11 Patient is n 30L with 55% FIO2. Afebrile. SUBJECTIVE 02/12: Patient remains on high flow nasal cannula. Very tired. Afebrile. Tolerating diet. Objective Vital Signs / I&O: Vital Signs 02/11/18 12:00 02/11/18 12:15 02/11/18 12:30 Temperature 98.0 F Pulse Rate 80 80 80 Respiratory Rate 16 19 16 Blood Pressure 100/56 L 94/47 L 95/53 L Pulse Oximetry 99 96 94 L 02/11/18 12:45 02/11/18 13:00 02/11/18 13:15 Temperature Pulse Rate 80 80 80 Respiratory Rate 20 18 26 H Blood Pressure 95/51 L 90/49 L 81/46 L Pulse Oximetry 88 L 90 L 88 L 02/11/18 13:30 02/11/18 13:45 02/11/18 14:00 Temperature Pulse Rate 80 80 80 Respiratory Rate 22 27 H 15 Blood Pressure 104/55 L 110/51 L 109/55 L Pulse Oximetry 91 L 85 L 89 L 02/11/18 14:15 02/11/18 14:30 02/11/18 14:43 Temperature Pulse Rate 80 80 80 Respiratory Rate 19 29 H 19 Blood Pressure 110/57 L 113/59 L Pulse Oximetry 94 L 92 L 02/11/18 14:45 02/11/18 15:00 02/11/18 15:15 Temperature Pulse Rate 80 80 80 Respiratory Rate 23 17 12 Blood Pressure 122/60 116/55 L 119/56 L Pulse Oximetry 96 94 L 96 02/11/18 15:30 02/11/18 15:45 02/11/18 16:00 Temperature 97.9 F Pulse Rate 80 80 80 Respiratory Rate 18 12 13 Blood Pressure 114/56 L 110/56 L 109/55 L Pulse Oximetry 94 L 97 95 02/11/18 16:15 02/11/18 16:30 02/11/18 16:45 Temperature Pulse Rate 80 80 80 Respiratory Rate 13 19 16 Blood Pressure 111/58 L 95/54 L 105/58 L Pulse Oximetry 95 96 92 L 02/11/18 17:00 02/11/18 17:15 02/11/18 17:30 Temperature Pulse Rate 80 80 80 Respiratory Rate 15 20 16 Blood Pressure 106/53 L 109/54 L 98/54 L Pulse Oximetry 97 90 L 91 L 02/11/18 17:45 02/11/18 18:00 02/11/18 18:15 Temperature Pulse Rate 80 80 80 Respiratory Rate 23 20 24 Blood Pressure 102/53 L 92/52 L 94/53 L Pulse Oximetry 90 L 93 L 88 L 02/11/18 18:30 02/11/18 18:45 02/11/18 19:00 Temperature Pulse Rate 80 80 80 Respiratory Rate 31 H 27 H 35 H Blood Pressure 91/50 L 94/53 L 100/55 L Pulse Oximetry 87 L 89 L 89 L 02/11/18 19:15 02/11/18 19:30 02/11/18 19:45 Temperature Pulse Rate 80 80 80 Respiratory Rate 26 H 30 H 15 Blood Pressure 94/52 L 120/53 L 108/53 L Pulse Oximetry 91 L 92 L 91 L 02/11/18 20:00 02/11/18 20:15 02/11/18 20:30 Temperature 98.7 F Pulse Rate 80 80 80 Respiratory Rate 18 16 24 Blood Pressure 94/50 L 108/54 L 104/52 L Pulse Oximetry 91 L 90 L 91 L 02/11/18 20:45 02/11/18 21:00 02/11/18 21:15 Temperature Pulse Rate 80 80 80 Respiratory Rate 24 23 22 Blood Pressure 132/58 L 117/53 L 104/54 L Pulse Oximetry 92 L 90 L 90 L 02/11/18 21:30 02/11/18 21:45 02/11/18 21:55 Temperature Pulse Rate 80 80 80 Respiratory Rate 23 21 18 Blood Pressure 109/59 L 129/57 L Pulse Oximetry 91 L 89 L 02/11/18 22:00 02/11/18 22:15 02/11/18 22:30 Temperature Pulse Rate 80 80 80 Respiratory Rate 21 14 11 L Blood Pressure 124/57 L 102/53 L 107/52 L Pulse Oximetry 91 L 94 L 96 02/11/18 22:45 02/11/18 23:00 02/11/18 23:15 Temperature Pulse Rate 80 80 80 Respiratory Rate 16 24 20 Blood Pressure 114/57 L 112/56 L 102/50 L Pulse Oximetry 95 95 91 L 02/11/18 23:30 02/11/18 23:45 02/12/18 00:00 Temperature 98.2 F Pulse Rate 80 80 80 Respiratory Rate 29 H 12 10 L Blood Pressure 94/54 L 102/52 L 115/57 L Pulse Oximetry 87 L 93 L 95 02/12/18 00:15 02/12/18 00:18 02/12/18 00:30 Temperature Pulse Rate 80 80 80 Respiratory Rate 13 17 12 Blood Pressure 113/55 L 109/54 L Pulse Oximetry 95 95 95 02/12/18 00:45 02/12/18 01:00 02/12/18 01:15 Temperature Pulse Rate 80 80 80 Respiratory Rate 28 H 20 18 Blood Pressure 120/55 L 126/61 119/55 L Pulse Oximetry 90 L 90 L 90 L 02/12/18 01:30 02/12/18 01:45 02/12/18 02:00 Temperature Pulse Rate 80 80 80 Respiratory Rate 14 21 22 Blood Pressure 110/54 L 119/56 L Pulse Oximetry 92 L 94 L 91 L 02/12/18 02:01 02/12/18 02:15 02/12/18 02:30 Temperature Pulse Rate 80 80 80 Respiratory Rate 28 H 12 13 Blood Pressure 111/56 L 106/58 L 102/53 L Pulse Oximetry 93 L 97 96 02/12/18 02:45 02/12/18 03:00 02/12/18 03:15 Temperature Pulse Rate 80 80 80 Respiratory Rate 12 12 12 Blood Pressure 103/53 L 110/57 L 120/56 L Pulse Oximetry 95 96 97 02/12/18 03:30 02/12/18 03:45 02/12/18 04:00 Temperature Pulse Rate 80 80 80 Respiratory Rate 12 13 12 Blood Pressure 106/52 L 101/52 L 99/55 L Pulse Oximetry 96 97 97 02/12/18 04:16 02/12/18 04:30 02/12/18 04:45 Temperature Pulse Rate 80 80 80 Respiratory Rate 19 14 15 Blood Pressure 130/60 121/58 L 109/55 L Pulse Oximetry 88 L 94 L 95 02/12/18 04:49 02/12/18 05:00 02/12/18 05:41 Temperature Pulse Rate 83 80 80 Respiratory Rate 23 32 H 25 H Blood Pressure 123/59 L 121/57 L Pulse Oximetry 97 89 L 93 L 02/12/18 06:00 02/12/18 07:00 02/12/18 08:00 Temperature 98.0 F Pulse Rate 80 80 Respiratory Rate 31 H 12 Blood Pressure Pulse Oximetry 96 95 97 02/12/18 08:53 02/12/18 10:00 02/12/18 10:01 Temperature Pulse Rate 80 80 80 Respiratory Rate 20 25 H 21 Blood Pressure 114/57 L Pulse Oximetry 92 L 93 L 02/12/18 10:15 02/12/18 10:30 02/12/18 10:45 Temperature Pulse Rate 80 80 80 Respiratory Rate 17 24 27 H Blood Pressure 101/57 L 99/53 L 93/52 L Pulse Oximetry 91 L 92 L 91 L 02/12/18 11:00 02/12/18 11:15 02/12/18 11:28 Temperature Pulse Rate 80 80 80 Respiratory Rate 33 H 35 H 24 Blood Pressure 106/56 L 98/56 L Pulse Oximetry 85 L 87 L 02/12/18 11:30 Temperature Pulse Rate 80 Respiratory Rate 29 H Blood Pressure 101/61 Pulse Oximetry 95 Intake & Output 02/11/18 02/12/18 02/12/18 18:59 06:59 18:59 Intake Total 1100 / 1100 480 / 480 Output Total 2510 / 2510 300 / 300 Balance -1410 / -1410 180 / 180 Weight 90 kg Intake: IV 100 / 100 Maxipime Inj 1,000 MG In NS Inj 100 / 100 100 ML @ 200 mls/hr IV.SIG Q8H PEDRO Rx#:[id number] Oral 1000 / 1000 480 / 480 Output: Urine 10 / 10 300 / 300 Hemodialysis Amount 2500 / 2500 Other: Date of Last Bowel Movement 02/11/18 02/11/18 02/11/18 # Bowel Movements 2 Result Diagrams: 02/12/18 05:17 02/12/18 05:17 Other Results: Microbiology 02/09/18 10:30 Sputum - Expectorated Sputum Gram Stain - Final 02/09/18 10:30 Sputum - Expectorated Sputum Sputum Culture - Final Klebsiella pneumoniae 01/24/18 13:40 Sputum - Expectorated Sputum Gram Stain - Final 01/24/18 13:40 Sputum - Expectorated Sputum Sputum Culture - Final Heavy growth normal respiratory marielos Imaging: Chest X-Ray 01/15/18 18:13 CONCLUSION: Mild interstitial prominence without focal airspace opacities. Slight improvement prior 12/12/2017. Stable cardiomegaly. Chest X-Ray 01/23/18 09:37 CONCLUSION: Mild interval increase in interstitial opacities of concern for pulmonary edema. Abdomen X-Ray 01/23/18 23:05 CONCLUSION: 1. Nonobstructive bowel gas pattern. Chest X-Ray 01/24/18 08:50 CONCLUSION: No appreciable change. Chest X-Ray 01/25/18 09:25 CONCLUSION: No significant change. Chest X-Ray 01/29/18 09:48 CONCLUSION: 1. Stable cardiomegaly and mild positive fluid balance. 2. No significant interval change. Chest CTA 01/30/18 00:00 CONCLUSION: 1. No evidence of pulmonary embolus. 2. Severe bilateral pulmonary parenchymal opacity with predominance at the dependent portions of the lungs. Difficult diagnosis includes pulmonary edema and infection. 3. Elongated lobulated nodular density in the right midlung following the major fissure likely represents loculated pleural effusion. 4. Enlarged pulmonary arteries suggesting pulmonary arterial hypertension. 5. Enlarged heart and small pericardial effusion. 6. Small left than right pleural effusions. 7. Mildly enlarged mediastinal lymph nodes, likely reactive. Chest X-Ray 02/04/18 00:00 CONCLUSION: 1. Patchy infiltrates bilaterally consistent with moderate pulmonary edema versus pneumonia. Clinical correlation is recommended. 2. Cardiomegaly. 3. Tiny bilateral pleural effusions. Chest X-Ray 02/09/18 08:04 CONCLUSION: 1. Cardiomegaly with interstitial edema. 2. Mild airspace disease in the right lung base, presumably atelectasis. Objective Remarks: GENERAL: Patient is 72 yo on high flow oxygen. SKIN: Warm and dry. HEAD: Normocephalic. EYES: No scleral icterus. No injection or drainage. NECK: Supple, trachea midline. No JVD or lymphadenopathy. CARDIOVASCULAR: Regular rate and rhythm without murmurs, gallops, or rubs. RESPIRATORY: Breath sounds equal bilaterally. No accessory muscle use. Few coarse BS GASTROINTESTINAL: Abdomen soft, non-tender, nondistended. MUSCULOSKELETAL: No cyanosis, or edema. 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 Pain medications as needed. Monitor neuro status. Continue buspirone 5 mg daily CV: Monitor HR and BP keep MAP>65mmHg Status post cardiac cath. Being followed by Dr. Weinberg. s/p ablation and micra placement 02/02/18 due to failure of medical management for rate control Echo showed EF 60-65%, mod- severe pulm HTN 60-70mmHg On Lipitor 80mg qhs, Coumadin Pulmo: Wean down oxygen as mari keep sats >92%. Currently on high flow nasal cannula 3 L 55% FiO2 CT chest with no evidence of PE however did show emphysematous changes bilateral lower lobe consolidation changes as well as fluid in interlobar fissure on the right. Pulmonary arteries are enlarged with probable pulmonary hypertension. Continue with Bronchodilators with albuterol/ipratropium aerosols every 4 hours with albuterol aerosols every 2 hours as needed for dyspnea, Solumederol 30mg Q12, On Symbicort 60/4.52 puffs twice daily. CXR: Diffuse interstitial disease On Revatio 30mg TID for pulm HTN GI/liver: P.o. diabetic/renal diet Renal/: Monitor renal function, I/O's, avoid nephrotoxins Renal is following. s/p HD 02/11: 2.5L removed ID: Off abx s/p Zosyn 01/24- 02/07) 02/09 Sputum: Klebsiella pneumonia. Start Cefepime 2gram IV Q8 Monitor for signs of infections ( Fever, WBC) Endocrine: SSI( high sale) for glycemic control, insulin detemir 5u BID Heme: Monitor CBC, Coags- INR 2.7 today Prophylaxis: Famotidine/SCDs. Anticoagulation with Coumadin. Level 3
--- NOTE | 2018-02-12 13:44 | P.PNCA ---
Subjective Interval history: alert in nad Physical Exam Vital signs: Vital Signs 02/11/18 13:45 02/11/18 14:00 02/11/18 14:15 Temperature Pulse Rate 80 80 80 Respiratory Rate 27 H 15 19 Blood Pressure 110/51 L 109/55 L 110/57 L Pulse Oximetry 85 L 89 L 94 L 02/11/18 14:30 02/11/18 14:43 02/11/18 14:45 Temperature Pulse Rate 80 80 80 Respiratory Rate 29 H 19 23 Blood Pressure 113/59 L 122/60 Pulse Oximetry 92 L 96 02/11/18 15:00 02/11/18 15:15 02/11/18 15:30 Temperature Pulse Rate 80 80 80 Respiratory Rate 17 12 18 Blood Pressure 116/55 L 119/56 L 114/56 L Pulse Oximetry 94 L 96 94 L 02/11/18 15:45 02/11/18 16:00 02/11/18 16:15 Temperature 97.9 F Pulse Rate 80 80 80 Respiratory Rate 12 13 13 Blood Pressure 110/56 L 109/55 L 111/58 L Pulse Oximetry 97 95 95 02/11/18 16:30 02/11/18 16:45 02/11/18 17:00 Temperature Pulse Rate 80 80 80 Respiratory Rate 19 16 15 Blood Pressure 95/54 L 105/58 L 106/53 L Pulse Oximetry 96 92 L 97 02/11/18 17:15 02/11/18 17:30 02/11/18 17:45 Temperature Pulse Rate 80 80 80 Respiratory Rate 20 16 23 Blood Pressure 109/54 L 98/54 L 102/53 L Pulse Oximetry 90 L 91 L 90 L 02/11/18 18:00 02/11/18 18:15 02/11/18 18:30 Temperature Pulse Rate 80 80 80 Respiratory Rate 20 24 31 H Blood Pressure 92/52 L 94/53 L 91/50 L Pulse Oximetry 93 L 88 L 87 L 02/11/18 18:45 02/11/18 19:00 02/11/18 19:15 Temperature Pulse Rate 80 80 80 Respiratory Rate 27 H 35 H 26 H Blood Pressure 94/53 L 100/55 L 94/52 L Pulse Oximetry 89 L 89 L 91 L 02/11/18 19:30 02/11/18 19:45 02/11/18 20:00 Temperature 98.7 F Pulse Rate 80 80 80 Respiratory Rate 30 H 15 18 Blood Pressure 120/53 L 108/53 L 94/50 L Pulse Oximetry 92 L 91 L 91 L 02/11/18 20:15 02/11/18 20:30 02/11/18 20:45 Temperature Pulse Rate 80 80 80 Respiratory Rate 16 24 24 Blood Pressure 108/54 L 104/52 L 132/58 L Pulse Oximetry 90 L 91 L 92 L 02/11/18 21:00 02/11/18 21:15 02/11/18 21:30 Temperature Pulse Rate 80 80 80 Respiratory Rate 23 22 23 Blood Pressure 117/53 L 104/54 L 109/59 L Pulse Oximetry 90 L 90 L 91 L 02/11/18 21:45 02/11/18 21:55 02/11/18 22:00 Temperature Pulse Rate 80 80 80 Respiratory Rate 21 18 21 Blood Pressure 129/57 L 124/57 L Pulse Oximetry 89 L 91 L 02/11/18 22:15 02/11/18 22:30 02/11/18 22:45 Temperature Pulse Rate 80 80 80 Respiratory Rate 14 11 L 16 Blood Pressure 102/53 L 107/52 L 114/57 L Pulse Oximetry 94 L 96 95 02/11/18 23:00 02/11/18 23:15 02/11/18 23:30 Temperature Pulse Rate 80 80 80 Respiratory Rate 24 20 29 H Blood Pressure 112/56 L 102/50 L 94/54 L Pulse Oximetry 95 91 L 87 L 02/11/18 23:45 02/12/18 00:00 02/12/18 00:15 Temperature 98.2 F Pulse Rate 80 80 80 Respiratory Rate 12 10 L 13 Blood Pressure 102/52 L 115/57 L 113/55 L Pulse Oximetry 93 L 95 95 02/12/18 00:18 02/12/18 00:30 02/12/18 00:45 Temperature Pulse Rate 80 80 80 Respiratory Rate 17 12 28 H Blood Pressure 109/54 L 120/55 L Pulse Oximetry 95 95 90 L 02/12/18 01:00 02/12/18 01:15 02/12/18 01:30 Temperature Pulse Rate 80 80 80 Respiratory Rate 20 18 14 Blood Pressure 126/61 119/55 L 110/54 L Pulse Oximetry 90 L 90 L 92 L 02/12/18 01:45 02/12/18 02:00 02/12/18 02:01 Temperature Pulse Rate 80 80 80 Respiratory Rate 21 22 28 H Blood Pressure 119/56 L 111/56 L Pulse Oximetry 94 L 91 L 93 L 02/12/18 02:15 02/12/18 02:30 02/12/18 02:45 Temperature Pulse Rate 80 80 80 Respiratory Rate 12 13 12 Blood Pressure 106/58 L 102/53 L 103/53 L Pulse Oximetry 97 96 95 02/12/18 03:00 02/12/18 03:15 02/12/18 03:30 Temperature Pulse Rate 80 80 80 Respiratory Rate 12 12 12 Blood Pressure 110/57 L 120/56 L 106/52 L Pulse Oximetry 96 97 96 02/12/18 03:45 02/12/18 04:00 02/12/18 04:16 Temperature Pulse Rate 80 80 80 Respiratory Rate 13 12 19 Blood Pressure 101/52 L 99/55 L 130/60 Pulse Oximetry 97 97 88 L 02/12/18 04:30 02/12/18 04:45 02/12/18 04:49 Temperature Pulse Rate 80 80 83 Respiratory Rate 14 15 23 Blood Pressure 121/58 L 109/55 L Pulse Oximetry 94 L 95 97 02/12/18 05:00 02/12/18 05:41 02/12/18 06:00 Temperature Pulse Rate 80 80 80 Respiratory Rate 32 H 25 H 31 H Blood Pressure 123/59 L 121/57 L Pulse Oximetry 89 L 93 L 96 02/12/18 07:00 02/12/18 08:00 02/12/18 08:53 Temperature 98.0 F Pulse Rate 80 80 Respiratory Rate 12 20 Blood Pressure Pulse Oximetry 95 97 02/12/18 10:00 02/12/18 10:01 02/12/18 10:15 Temperature Pulse Rate 80 80 80 Respiratory Rate 25 H 21 17 Blood Pressure 114/57 L 101/57 L Pulse Oximetry 92 L 93 L 91 L 02/12/18 10:30 02/12/18 10:45 02/12/18 11:00 Temperature Pulse Rate 80 80 80 Respiratory Rate 24 27 H 33 H Blood Pressure 99/53 L 93/52 L 106/56 L Pulse Oximetry 92 L 91 L 85 L 02/12/18 11:15 02/12/18 11:28 02/12/18 11:30 Temperature Pulse Rate 80 80 80 Respiratory Rate 35 H 24 29 H Blood Pressure 98/56 L 101/61 Pulse Oximetry 87 L 95 02/12/18 11:45 02/12/18 12:00 02/12/18 12:15 Temperature 98.3 F Pulse Rate 80 80 80 Respiratory Rate 25 H 25 H 36 H Blood Pressure 133/60 123/57 L 124/57 L Pulse Oximetry 93 L 90 L 88 L 02/12/18 12:30 Temperature Pulse Rate 80 Respiratory Rate 28 H Blood Pressure 133/61 Pulse Oximetry 89 L Intake & Output 02/11/18 02/12/18 02/12/18 18:59 06:59 18:59 Intake Total 1100 / 1100 480 / 480 Output Total 2510 / 2510 300 / 300 Balance -1410 / -1410 180 / 180 Weight 90 kg Intake: IV 100 / 100 Maxipime Inj 1,000 MG In NS Inj 100 / 100 100 ML @ 200 mls/hr IV.SIG Q8H PEDRO Rx#:[id number] Oral 1000 / 1000 480 / 480 Output: Urine 10 / 10 300 / 300 Hemodialysis Amount 2500 / 2500 Other: Date of Last Bowel Movement 02/11/18 02/11/18 02/11/18 # Bowel Movements 2 Assessment and Plan - Assessment (1) Atrial fibrillation with rapid ventricular response Code(s): I48.91 - Unspecified atrial fibrillation Status: Acute (2) CHF (congestive heart failure) Code(s): I50.9 - Heart failure, unspecified Status: Acute (3) Chronic kidney disease with end stage renal failure on dialysis Code(s): N18.6 - End stage renal disease; Z99.2 - Dependence on renal dialysis Status: Acute (4) Atrial fibrillation with RVR Code(s): I48.91 - Unspecified atrial fibrillation Status: Acute (5) ESRD (end stage renal disease) on dialysis Code(s): N18.6 - End stage renal disease; Z99.2 - Dependence on renal dialysis Status: Acute - Plan 1.) Afib with rvr - s/p ablation and micra placement 02/02/18 due to failure of medical management for rate control, d/w patient, inr therapeutic, hgb stable, rate controlled, inr=2.7 and hgb = 11.1 02/12/18 2.) CAD - continue, lipitor, coumadin at 2 mg qd, has hemoptyis which is improving, f/u inr and cbc in am (2) CHF (congestive heart failure) Qualifiers: Heart failure type: unspecified Heart failure chronicity: unspecified Qualified Code(s): I50.9 - Heart failure, unspecified
--- NOTE | 2018-02-12 13:47 | XR ---
EXAM DATE: 02/12/2018 1:30 PM EDT AGE/SEX: 72 years / Male INDICATIONS: Short of breath and respiratory failure. CLINICAL DATA: This is the patient's subsequent encounter. Patient reports that signs and symptoms h ave been present for 4 - 6 days and indicates a pain score of 0/10. MEDICAL/SURGICAL HISTORY: Hypertension. Chronic obstructive pulmonary disease. Congestive hea rt failure. A-fib. . Central line. [place] [facility] [place]. [facility] [place] W 3D[place] 01/30/2018. . FINDINGS: Portable AP view of the chest demonstrate stable enlargement of the cardiac silhouette. Right IJ dial ysis catheter remains present. There are abnormal interstitial opacities bilaterally, more prominent in the lower lung zones. No pleural effusion or pneumothorax is identified. Bones and soft tissues de monstrate no acute finding. Nonspecific density overlies the left heart. CONCLUSION: Stable chest x-ray with enlarged cardiac silhouette with bilateral diffuse interstitial process. Alth ough nonspecific the changes could be related to pulmonary edema. Electronically signed by: Osmar Velasco MD 02/12/2018 1:46 PM EDT
[2018-02-12] MEDS: Clotrimazole 10 MG Troche BUCCAL SCH ×3 (14:42→21:17)
[2018-02-12 14:43] LABS: C-Reactive Protein 1.77 mg/dL (0.00-0.30)
--- NOTE | 2018-02-12 17:37 | P.PNNP ---
Subjective Interval history: He is resting. High flow at 55%, 30 LPM with oxygen saturations of 97%. Respirations unlabored. <Jyoti Ceron - Last Filed: 02/12/18 17:35> Physical Exam Vital signs: Vital Signs 02/11/18 17:45 02/11/18 18:00 02/11/18 18:15 Temperature Pulse Rate 80 80 80 Respiratory Rate 23 20 24 Blood Pressure 102/53 L 92/52 L 94/53 L Pulse Oximetry 90 L 93 L 88 L 02/11/18 18:30 02/11/18 18:45 02/11/18 19:00 Temperature Pulse Rate 80 80 80 Respiratory Rate 31 H 27 H 35 H Blood Pressure 91/50 L 94/53 L 100/55 L Pulse Oximetry 87 L 89 L 89 L 02/11/18 19:15 02/11/18 19:30 02/11/18 19:45 Temperature Pulse Rate 80 80 80 Respiratory Rate 26 H 30 H 15 Blood Pressure 94/52 L 120/53 L 108/53 L Pulse Oximetry 91 L 92 L 91 L 02/11/18 20:00 02/11/18 20:15 02/11/18 20:30 Temperature 98.7 F Pulse Rate 80 80 80 Respiratory Rate 18 16 24 Blood Pressure 94/50 L 108/54 L 104/52 L Pulse Oximetry 91 L 90 L 91 L 02/11/18 20:45 02/11/18 21:00 02/11/18 21:15 Temperature Pulse Rate 80 80 80 Respiratory Rate 24 23 22 Blood Pressure 132/58 L 117/53 L 104/54 L Pulse Oximetry 92 L 90 L 90 L 02/11/18 21:30 02/11/18 21:45 02/11/18 21:55 Temperature Pulse Rate 80 80 80 Respiratory Rate 23 21 18 Blood Pressure 109/59 L 129/57 L Pulse Oximetry 91 L 89 L 02/11/18 22:00 02/11/18 22:15 02/11/18 22:30 Temperature Pulse Rate 80 80 80 Respiratory Rate 21 14 11 L Blood Pressure 124/57 L 102/53 L 107/52 L Pulse Oximetry 91 L 94 L 96 02/11/18 22:45 02/11/18 23:00 02/11/18 23:15 Temperature Pulse Rate 80 80 80 Respiratory Rate 16 24 20 Blood Pressure 114/57 L 112/56 L 102/50 L Pulse Oximetry 95 95 91 L 02/11/18 23:30 02/11/18 23:45 02/12/18 00:00 Temperature 98.2 F Pulse Rate 80 80 80 Respiratory Rate 29 H 12 10 L Blood Pressure 94/54 L 102/52 L 115/57 L Pulse Oximetry 87 L 93 L 95 02/12/18 00:15 02/12/18 00:18 02/12/18 00:30 Temperature Pulse Rate 80 80 80 Respiratory Rate 13 17 12 Blood Pressure 113/55 L 109/54 L Pulse Oximetry 95 95 95 02/12/18 00:45 02/12/18 01:00 02/12/18 01:15 Temperature Pulse Rate 80 80 80 Respiratory Rate 28 H 20 18 Blood Pressure 120/55 L 126/61 119/55 L Pulse Oximetry 90 L 90 L 90 L 02/12/18 01:30 02/12/18 01:45 02/12/18 02:00 Temperature Pulse Rate 80 80 80 Respiratory Rate 14 21 22 Blood Pressure 110/54 L 119/56 L Pulse Oximetry 92 L 94 L 91 L 02/12/18 02:01 02/12/18 02:15 02/12/18 02:30 Temperature Pulse Rate 80 80 80 Respiratory Rate 28 H 12 13 Blood Pressure 111/56 L 106/58 L 102/53 L Pulse Oximetry 93 L 97 96 02/12/18 02:45 02/12/18 03:00 02/12/18 03:15 Temperature Pulse Rate 80 80 80 Respiratory Rate 12 12 12 Blood Pressure 103/53 L 110/57 L 120/56 L Pulse Oximetry 95 96 97 02/12/18 03:30 02/12/18 03:45 02/12/18 04:00 Temperature Pulse Rate 80 80 80 Respiratory Rate 12 13 12 Blood Pressure 106/52 L 101/52 L 99/55 L Pulse Oximetry 96 97 97 02/12/18 04:16 02/12/18 04:30 02/12/18 04:45 Temperature Pulse Rate 80 80 80 Respiratory Rate 19 14 15 Blood Pressure 130/60 121/58 L 109/55 L Pulse Oximetry 88 L 94 L 95 02/12/18 04:49 02/12/18 05:00 02/12/18 05:41 Temperature Pulse Rate 83 80 80 Respiratory Rate 23 32 H 25 H Blood Pressure 123/59 L 121/57 L Pulse Oximetry 97 89 L 93 L 02/12/18 06:00 02/12/18 07:00 02/12/18 08:00 Temperature 98.0 F Pulse Rate 80 80 Respiratory Rate 31 H 12 Blood Pressure Pulse Oximetry 96 95 97 02/12/18 08:53 02/12/18 10:00 02/12/18 10:01 Temperature Pulse Rate 80 80 80 Respiratory Rate 20 25 H 21 Blood Pressure 114/57 L Pulse Oximetry 92 L 93 L 02/12/18 10:15 02/12/18 10:30 02/12/18 10:45 Temperature Pulse Rate 80 80 80 Respiratory Rate 17 24 27 H Blood Pressure 101/57 L 99/53 L 93/52 L Pulse Oximetry 91 L 92 L 91 L 02/12/18 11:00 02/12/18 11:15 02/12/18 11:28 Temperature Pulse Rate 80 80 80 Respiratory Rate 33 H 35 H 24 Blood Pressure 106/56 L 98/56 L Pulse Oximetry 85 L 87 L 02/12/18 11:30 02/12/18 11:45 02/12/18 12:00 Temperature 98.3 F Pulse Rate 80 80 80 Respiratory Rate 29 H 25 H 25 H Blood Pressure 101/61 133/60 123/57 L Pulse Oximetry 95 93 L 90 L 02/12/18 12:15 02/12/18 12:30 02/12/18 12:45 Temperature Pulse Rate 80 80 80 Respiratory Rate 36 H 28 H 29 H Blood Pressure 124/57 L 133/61 126/57 L Pulse Oximetry 88 L 89 L 88 L 02/12/18 13:00 02/12/18 14:00 02/12/18 14:27 Temperature Pulse Rate 80 80 80 Respiratory Rate 27 H 20 25 H Blood Pressure 121/58 L 118/57 L Pulse Oximetry 91 L 93 L 89 L 02/12/18 14:30 02/12/18 14:45 02/12/18 15:01 Temperature Pulse Rate 80 80 80 Respiratory Rate 27 H 32 H 31 H Blood Pressure 129/56 L 105/54 L 107/54 L Pulse Oximetry 89 L 89 L 85 L 02/12/18 15:15 02/12/18 15:30 02/12/18 15:44 Temperature Pulse Rate 80 80 80 Respiratory Rate 19 22 15 Blood Pressure 106/55 L 109/56 L Pulse Oximetry 91 L 92 L 02/12/18 15:45 02/12/18 16:00 Temperature 98.0 F Pulse Rate 80 80 Respiratory Rate 13 27 H Blood Pressure 105/52 L 112/54 L Pulse Oximetry 94 L 91 L Intake & Output 02/11/18 02/12/18 02/12/18 18:59 06:59 18:59 Intake Total 1100 / 1100 480 / 480 Output Total 2510 / 2510 300 / 300 Balance -1410 / -1410 180 / 180 Weight 90 kg Intake: IV 100 / 100 Maxipime Inj 1,000 MG In NS Inj 100 / 100 100 ML @ 200 mls/hr IV.SIG Q8H PEDRO Rx#:[id number] Oral 1000 / 1000 480 / 480 Output: Urine 10 / 10 300 / 300 Hemodialysis Amount 2500 / 2500 Other: Date of Last Bowel Movement 02/11/18 02/11/18 02/11/18 # Bowel Movements 2 - Constitutional no acute distress, chronically ill appearing, combative - Routine HEENT Exam Head: Present: normocephalic - Routine Neck Exam Present: supple, full ROM - Routine Respiratory Exam Present: crackles. Absent: accessory muscle use - Routine Cardiovascular Exam Present: RRR, S1, S2. Absent: murmur - Routine Abdominal Exam Present: soft, normoactive bowel sounds - Routine Extremities Exam Present: full ROM, AV fistula, vascular access. Absent: edema - Routine Skin Exam Present: intact, dry, warm - Routine Neurological Exam Present: alert, oriented X3, CN II-XII intact, moving all extremities <Jyoti Ceron - Last Filed: 02/12/18 17:35> Vital signs: Vital Signs 02/12/18 15:01 02/12/18 15:15 02/12/18 15:30 Temperature Pulse Rate 80 80 80 Respiratory Rate 31 H 19 22 Blood Pressure 107/54 L 106/55 L 109/56 L Pulse Oximetry 85 L 91 L 92 L 02/12/18 15:44 02/12/18 15:45 02/12/18 16:00 Temperature 98.0 F Pulse Rate 80 80 80 Respiratory Rate 15 13 27 H Blood Pressure 105/52 L 112/54 L Pulse Oximetry 94 L 91 L 02/12/18 16:15 02/12/18 16:30 02/12/18 16:45 Temperature Pulse Rate 80 80 80 Respiratory Rate 13 11 L 14 Blood Pressure 114/56 L 123/58 L 121/57 L Pulse Oximetry 94 L 95 97 02/12/18 17:00 02/12/18 17:15 02/12/18 17:30 Temperature Pulse Rate 80 80 80 Respiratory Rate 11 L 26 H 17 Blood Pressure 118/57 L 117/59 L 128/58 L Pulse Oximetry 95 85 L 93 L 02/12/18 17:45 02/12/18 18:00 02/12/18 18:15 Temperature Pulse Rate 80 80 80 Respiratory Rate 16 20 11 L Blood Pressure 125/60 121/60 126/58 L Pulse Oximetry 89 L 92 L 96 02/12/18 18:30 02/12/18 20:00 02/12/18 20:21 Temperature 98.0 F Pulse Rate 80 80 80 Respiratory Rate 25 H 24 14 Blood Pressure 120/60 115/55 L Pulse Oximetry 90 L 93 L 93 L 02/12/18 22:00 02/12/18 23:26 02/13/18 00:00 Temperature 98.0 F Pulse Rate 80 80 80 Respiratory Rate 18 26 H Blood Pressure 128/58 L Pulse Oximetry 89 L 02/13/18 02:00 02/13/18 03:42 02/13/18 04:00 Temperature 98.0 F Pulse Rate 80 80 80 Respiratory Rate 22 12 Blood Pressure 122/57 L Pulse Oximetry 95 02/13/18 06:00 02/13/18 08:00 02/13/18 09:08 Temperature 97.9 F Pulse Rate 80 80 80 Respiratory Rate 16 17 Blood Pressure 135/63 Pulse Oximetry 98 95 02/13/18 10:00 02/13/18 11:58 Temperature Pulse Rate 80 80 Respiratory Rate 21 Blood Pressure Pulse Oximetry Intake & Output 02/12/18 02/13/18 02/13/18 18:59 06:59 18:59 Intake Total 825 / 825 480 / 480 Output Total 100 / 100 50 / 50 Balance 725 / 725 430 / 430 Weight 89 kg Intake: IV 100 / 100 Maxipime Inj 1,000 MG In NS Inj 100 / 100 100 ML @ 200 mls/hr IV.SIG Q24H [facility] Rx#:[id number] Oral 725 / 725 480 / 480 Output: Urine 100 / 100 50 / 50 Other: Date of Last Bowel Movement 02/11/18 02/11/18 02/11/18 <Eduardo Salvador - Last Filed: 02/13/18 14:50> Assessment and Plan - Assessment (1) ESRD (end stage renal disease) on dialysis Code(s): N18.6 - End stage renal disease; Z99.2 - Dependence on renal dialysis Status: Acute Plan: HD support continues MWF. Due tomorrow. Fluid removal as needed. Monitor electrolytes intermittently. Avoid IVF administration. Protect left arm from procedures, has new AV access that is not mature. Will need to follow with vascular at a later date. PermCath in place for HD use. Phosphorus level has been acceptable without binder therapy. High protein diet with Supplements ordered. He has been losing weight, needs continued nutritional support. (2) Hypoxia Code(s): R09.02 - Hypoxemia Status: Acute Plan: He is on high flow oxygen. Etiology is unclear. Patient may have interstitial lung disease. Pulmonary following. May need lung biopsy to assist in diagnosis. There is some history of occupational exposure to pulmonary toxins. (3) Atrial fibrillation with RVR Code(s): I48.91 - Unspecified atrial fibrillation Status: Acute Plan: Improved, s/p AV gilbert ablation with pacemaker placement. Midodrine is ordered TID for hypotension. Cardiology following. Appreciate recommendations. (4) CHF (congestive heart failure) Code(s): I50.9 - Heart failure, unspecified Status: Acute Qualifiers: Heart failure type: unspecified Heart failure chronicity: unspecified Qualified Code(s): I50.9 - Heart failure, unspecified Plan: Stable. EF noted to be around 60%. Repeat echo shows no change in EF. He has mild aortic regurgitation. Fluid removal with dialysis. (5) Anemia in CKD (chronic kidney disease) Code(s): N18.9 - Chronic kidney disease, unspecified; D63.1 - Anemia in chronic kidney disease Status: Acute Plan: On Epogen with dialysis. Hemoglobin is acceptable. <Jyoti Ceron - Last Filed: 02/12/18 17:35> - Assessment (1) ESRD (end stage renal disease) on dialysis Code(s): N18.6 - End stage renal disease; Z99.2 - Dependence on renal dialysis Status: Acute (2) Hypoxia Code(s): R09.02 - Hypoxemia Status: Acute (3) Atrial fibrillation with RVR Code(s): I48.91 - Unspecified atrial fibrillation Status: Acute (4) CHF (congestive heart failure) Code(s): I50.9 - Heart failure, unspecified Status: Acute Qualifiers: Heart failure type: unspecified Heart failure chronicity: unspecified Qualified Code(s): I50.9 - Heart failure, unspecified (5) Anemia in CKD (chronic kidney disease) Code(s): N18.9 - Chronic kidney disease, unspecified; D63.1 - Anemia in chronic kidney disease Status: Acute - Attending Attestation patient was seen and examined. Agree with above assessment and plan. <Eduardo Salvador - Last Filed: 02/13/18 14:50>
[2018-02-13] MEDS: Insulin NovoLIN Regular Correctional Sugar Inj SQ SCH ×4 (00:52→18:32)
[2018-02-13 04:42] LABS: Baso % (Auto) 0.2 % (0.0-2.0); Hematocrit 33.4 % (39.0-51.0); Hemoglobin 10.8 gm/dL (13.0-17.0); Lymph # (Auto) 0.1 th/mm3 (1.0-4.8); Lymph % (Auto) 1.1 % (9.0-44.0); Mean Corpuscular HGB Conc 32.3 % (32.0-36.0); Mean Corpuscular Hemoglobin 28.8 pg (27.0-34.0); Mean Corpuscular Volume 89.1 fL (80.0-100.0); Mean Platelet Volume 10.2 fL (7.0-11.0); Mono # (Auto) 0.3 th/mm3 (0.0-0.9); Neut # (Auto) 12.2 th/mm3 (1.8-7.7); Neut % (Auto) 96.7 % (16.0-70.0); Platelet Count 103 th/mm3 (150-450); Red Blood Count 3.74 mil/mm3 (4.50-5.90); Red Cell Distribution Width 21.5 % (11.6-17.2); White Blood Count 12.6 th/mm3 (4.0-11.0)
[2018-02-13 04:44] LABS: INR 2.5 Ratio; Prothrombin Time 25.4 sec (9.8-11.6)
[2018-02-13 05:11] LABS: Alanine Aminotransferase 34 U/L (12-78); Albumin 3.1 g/dL (3.4-5.0); Alkaline Phosphatase 116 U/L (45-117); Anion Gap 13 meq/L (5-15); Aspartate Aminotransferase 27 U/L (15-37); Blood Urea Nitrogen 116 mg/dL (7-18); Calcium 9.1 mg/dL (8.5-10.1); Carbon Dioxide 26.7 meq/L (21.0-32.0); Chloride 94 meq/L (98-107); Glomerular Filtration Rate 7 mL/min (>89); Glucose,Random 221 mg/dL (74-106); Magnesium 2.7 mg/dL (1.5-2.5); Sodium 134 meq/L (136-145); Total Protein 6.5 g/dL (6.4-8.2)
[2018-02-13] MEDS: Clotrimazole 10 MG Troche BUCCAL SCH ×5 (06:52→21:44)
--- NOTE | 2018-02-13 07:18 | P.PNWCN ---
Wound Care Nurse Consult Description: Consult for Pressure Ulcer per Dr Melendrez Communicated with: Dr Parvin Nielsen, RN Patient Recommendation: Strict Q2H repositioning from left to right sides only. Please limit pt's time spent on his back. Continue Calazime skin protectant paste to bilateral buttocks and sacral areas for incontinence issues and to keep skin dry. Use ultrasorb underpad for moisture wicking, patient is a self turn and does not require a cotton pull pad that only holds in moisture and makes the mattress surface harder. Additional information: Patient seen on IM @0600 this morning for evaluation of mixed etiology Stage 2 pressure injury to sacrum with moisture related partial thickness skinloss as evidenced by the sharp and jagged wound margins and pink/red wound bed. Wound/Pressure Injury - Patient Status Premedicated for Pain Prior to Dressing Change: No - Wound Sacrum Wound Staging: Stage II Wound Assessment: Ongoing Wound Type: Pressure Injury (mixed etiology moisture/friction and pressure wounds) Is This a Chronic Wound: No Requested from Provider a Wound Care Consult: Yes Wound Bed Appearance: [place], Red Drainage Amount: None Drainage Odor: No Odor Dressing Status: Open to Air Topical: Calazime - Additional Information Multiple small wounds noted on sacrum on an area measuring ~3cm x 2.5cm x 0.2cm. Wounds are mixed etiology of moisture, friction, and pressure. Wounds are noted with pink and red non granulating tissue without drainage and without odor. Wound margins are sharp, defined, and jagged. Patient is a self turn. Patient was noted on a cotton pull pad and 2 ultrasorbs. Pull pad and all ultrasorbs were removed, patient was cleansed of stool, Calazime was applied to sacrum and bilateral buttocks, linens changed by scientific technical writer and Morales RN. One ultrasorb was placed underneath patient bottom for moisture.
--- NOTE | 2018-02-13 08:27 | P.PNCA ---
Subjective Interval history: alert in nad Physical Exam Vital signs: Vital Signs 02/12/18 08:53 02/12/18 10:00 02/12/18 10:01 Temperature Pulse Rate 80 80 80 Respiratory Rate 20 25 H 21 Blood Pressure 114/57 L Pulse Oximetry 92 L 93 L 02/12/18 10:15 02/12/18 10:30 02/12/18 10:45 Temperature Pulse Rate 80 80 80 Respiratory Rate 17 24 27 H Blood Pressure 101/57 L 99/53 L 93/52 L Pulse Oximetry 91 L 92 L 91 L 02/12/18 11:00 02/12/18 11:15 02/12/18 11:28 Temperature Pulse Rate 80 80 80 Respiratory Rate 33 H 35 H 24 Blood Pressure 106/56 L 98/56 L Pulse Oximetry 85 L 87 L 02/12/18 11:30 02/12/18 11:45 02/12/18 12:00 Temperature 98.3 F Pulse Rate 80 80 80 Respiratory Rate 29 H 25 H 25 H Blood Pressure 101/61 133/60 123/57 L Pulse Oximetry 95 93 L 90 L 02/12/18 12:15 02/12/18 12:30 02/12/18 12:45 Temperature Pulse Rate 80 80 80 Respiratory Rate 36 H 28 H 29 H Blood Pressure 124/57 L 133/61 126/57 L Pulse Oximetry 88 L 89 L 88 L 02/12/18 13:00 02/12/18 14:00 02/12/18 14:27 Temperature Pulse Rate 80 80 80 Respiratory Rate 27 H 20 25 H Blood Pressure 121/58 L 118/57 L Pulse Oximetry 91 L 93 L 89 L 02/12/18 14:30 02/12/18 14:45 02/12/18 15:01 Temperature Pulse Rate 80 80 80 Respiratory Rate 27 H 32 H 31 H Blood Pressure 129/56 L 105/54 L 107/54 L Pulse Oximetry 89 L 89 L 85 L 02/12/18 15:15 02/12/18 15:30 02/12/18 15:44 Temperature Pulse Rate 80 80 80 Respiratory Rate 19 22 15 Blood Pressure 106/55 L 109/56 L Pulse Oximetry 91 L 92 L 02/12/18 15:45 02/12/18 16:00 02/12/18 16:15 Temperature 98.0 F Pulse Rate 80 80 80 Respiratory Rate 13 27 H 13 Blood Pressure 105/52 L 112/54 L 114/56 L Pulse Oximetry 94 L 91 L 94 L 02/12/18 16:30 02/12/18 16:45 02/12/18 17:00 Temperature Pulse Rate 80 80 80 Respiratory Rate 11 L 14 11 L Blood Pressure 123/58 L 121/57 L 118/57 L Pulse Oximetry 95 97 95 02/12/18 17:15 02/12/18 17:30 02/12/18 17:45 Temperature Pulse Rate 80 80 80 Respiratory Rate 26 H 17 16 Blood Pressure 117/59 L 128/58 L 125/60 Pulse Oximetry 85 L 93 L 89 L 02/12/18 18:00 02/12/18 18:15 02/12/18 18:30 Temperature Pulse Rate 80 80 80 Respiratory Rate 20 11 L 25 H Blood Pressure 121/60 126/58 L 120/60 Pulse Oximetry 92 L 96 90 L 02/12/18 20:00 02/12/18 20:21 02/12/18 22:00 Temperature 98.0 F Pulse Rate 80 80 80 Respiratory Rate 24 14 Blood Pressure 115/55 L Pulse Oximetry 93 L 93 L 02/12/18 23:26 02/13/18 00:00 02/13/18 02:00 Temperature 98.0 F Pulse Rate 80 80 80 Respiratory Rate 18 26 H Blood Pressure 128/58 L Pulse Oximetry 89 L 02/13/18 03:42 02/13/18 04:00 02/13/18 06:00 Temperature 98.0 F Pulse Rate 80 80 80 Respiratory Rate 22 12 Blood Pressure 122/57 L Pulse Oximetry 95 Intake & Output 02/12/18 02/13/18 02/13/18 18:59 06:59 18:59 Intake Total 825 / 825 480 / 480 Output Total 100 / 100 50 / 50 Balance 725 / 725 430 / 430 Weight 89 kg Intake: IV 100 / 100 Maxipime Inj 1,000 MG In NS Inj 100 / 100 100 ML @ 200 mls/hr IV.SIG Q24H [facility] Rx#:[id number] Oral 725 / 725 480 / 480 Output: Urine 100 / 100 50 / 50 Other: Date of Last Bowel Movement 02/11/18 02/11/18 Assessment and Plan - Assessment (1) Atrial fibrillation with rapid ventricular response Code(s): I48.91 - Unspecified atrial fibrillation Status: Acute (2) CHF (congestive heart failure) Code(s): I50.9 - Heart failure, unspecified Status: Acute (3) Chronic kidney disease with end stage renal failure on dialysis Code(s): N18.6 - End stage renal disease; Z99.2 - Dependence on renal dialysis Status: Acute (4) Atrial fibrillation with RVR Code(s): I48.91 - Unspecified atrial fibrillation Status: Acute (5) ESRD (end stage renal disease) on dialysis Code(s): N18.6 - End stage renal disease; Z99.2 - Dependence on renal dialysis Status: Acute - Plan 1.) Afib with rvr - s/p ablation and micra placement 02/02/18 due to failure of medical management for rate control, d/w patient, inr therapeutic, hgb stable, rate controlled, inr=2.5 and hgb = 11.1 02/13/18 2.) CAD - continue, lipitor, coumadin at 2 mg qd, has hemoptyis which is improving, f/u inr and cbc in am (2) CHF (congestive heart failure) Qualifiers: Heart failure type: unspecified Heart failure chronicity: unspecified Qualified Code(s): I50.9 - Heart failure, unspecified
[2018-02-13] MEDS: Budesonide-Formoterol 160/4.5 MCG 6 GM Inhaler INH SCH ×2 (09:42→21:39)
[2018-02-13] MEDS: Senna/Docusate Sodium 8.6/50 MG Tablet PO SCH ×2 (09:44→21:39)
[2018-02-13] MEDS: MethylPREDNISolone Sod Succinate Inj 40 MG/ML Vial IV.PUSH SCH ×2 (09:44→21:40)
[2018-02-13] MEDS: Insulin Detemir Inj 1,000 UNIT/10 ML Vial SQ SCH ×2 (09:46→21:38)
--- NOTE | 2018-02-13 13:12 | P.PNCC ---
Subjective Subjective Remarks/Hospital Course: This is a 72yM with history of ESRD on HD who was recently admitted last month for supraventricular tachycardia. It appears from the records that normal sinus rhythm was restored prior to discharge home. He re-presented to the hospital with atrial fibrillation with rapid ventricular response which has been poorly responsive to esmolol infusion. It is noted that there is still a shortage of diltiazem infusions, so none is available to place the patient on. Dr. Waters with cardiology was consulted, as was Dr. Weinberg. The patient has also had hypotension during this hospital stay with most blood pressure readings between 80-100 systolic. This morning, Bystolic was started and was given together with amiodarone 400mg and metoprolol 25mg po. Approximately 2 hours after this, his blood pressure dropped into the 60s and 70s systolic. I was consulted by Dr. Wilcox to evaluate and manage his hemodynamics in the setting of poorly-controlled atrial fibrillation and hypotension. The patient does complain of light-headedness and a little chest discomfort which is new since his blood pressure has dropped into the 70s. He denies any other complaints and tolerated breakfast this AM. ROS otherwise negative. troponins have been serially negative this admission. I performed bedside critical care echocardiography and compared this to images obtained from last hospital admission on 11/2017. Given the poorly controlled nature of the patient's rate, wall motion and accurate ejection fraction are difficult to assess with accuracy. It does appear that the patient has relatively preserved EF and at most only mildly depressed LVEF. Aortic valve is sclerotic but appears unchanged from prior echo which calculated the valve area at ~2cm. no pericardial effusion. IVC is dilated around 2cm without respiratory variation. heart rate on my evaluation is 121. 8/2: Critical care reconsulted by Dr. Weinberg for worsening respiratory failure. Patient dropped O2 sats to 84% on 6 L nasal cannula. When I evaluated patient he was resting in bed. Placed him on high flow nasal cannula 30 L/min 60% FiO2 with which his O2 sats came up to 90%. 01/30: Remains on high flow nasal cannula. CT chest negative for PE shows consolidation bilateral lower lobes and a loculated effusion on the right. Defer to pulmonary regarding further recommendations. 01/31: Remains on high flow nasal cannula. Being dialyzed currently. On 30 L/ min 60% FiO2. O2 sats 96%. Feels that he is breathing a little better. 02/01, 02/02: On high flow nasal cannula at 20 L/min 50% FiO2. Shortness of breath gradually improving. 02/03: On high flow nasal cannula 20 L/min 60% FiO2. Underwent mitral implantation and AV gilbert ablation yesterday by Dr. Weinberg. Sitting up in bed today. Appears comfortable not in any acute distress. 02/04 Patient 02/04 Patient is awake and alert on high flow oxygen 25L with 70% FIO2> Afebrile. For HD today 02/05 No events overnight. s/p HD yesterday with removal 5L. Afebrile. On 25L with FIO2 down to 50% 02/06 Patient remains on high flow oxygen with 25L 55%FIO2. Afebrile. 02/07 Patient s/p HD yesterday with removal 4.5L. Remains on high flow oxygen 25L with 50% FIO2. Afebrile. 02/08 Patient s/p HD yesterday with removal 3L. On high flow oxygen. Afebrile. 02/09 Patient remains on high flow oxygen 25L with 55% FIO2. Afebrile. For HD today 02/10 Patient is awake and alert. s/p HD yesterday with removal 3L. On 30L with 60% FIO2. Afebrile. 02/11 Patient is n 30L with 55% FIO2. Afebrile. 02/12: Patient remains on high flow nasal cannula. Very tired. Afebrile. Tolerating diet. SUBJECTIVE 02/13: Hemodialysis is remained level. Unable to take fluid off due to hypotension. Remains on high flow nasal cannula 30 L 60% FiO2. Tolerating diet. Week. Objective Vital Signs / I&O: Vital Signs 02/12/18 14:00 02/12/18 14:27 02/12/18 14:30 Temperature Pulse Rate 80 80 80 Respiratory Rate 20 25 H 27 H Blood Pressure 118/57 L 129/56 L Pulse Oximetry 93 L 89 L 89 L 02/12/18 14:45 02/12/18 15:01 02/12/18 15:15 Temperature Pulse Rate 80 80 80 Respiratory Rate 32 H 31 H 19 Blood Pressure 105/54 L 107/54 L 106/55 L Pulse Oximetry 89 L 85 L 91 L 08/16/18 15:30 02/12/18 15:44 02/12/18 15:45 Temperature Pulse Rate 80 80 80 Respiratory Rate 22 15 13 Blood Pressure 109/56 L 105/52 L Pulse Oximetry 92 L 94 L 02/12/18 16:00 02/12/18 16:15 02/12/18 16:30 Temperature 98.0 F Pulse Rate 80 80 80 Respiratory Rate 27 H 13 11 L Blood Pressure 112/54 L 114/56 L 123/58 L Pulse Oximetry 91 L 94 L 95 02/12/18 16:45 02/12/18 17:00 02/12/18 17:15 Temperature Pulse Rate 80 80 80 Respiratory Rate 14 11 L 26 H Blood Pressure 121/57 L 118/57 L 117/59 L Pulse Oximetry 97 95 85 L 02/12/18 17:30 02/12/18 17:45 02/12/18 18:00 Temperature Pulse Rate 80 80 80 Respiratory Rate 17 16 20 Blood Pressure 128/58 L 125/60 121/60 Pulse Oximetry 93 L 89 L 92 L 02/12/18 18:15 02/12/18 18:30 02/12/18 20:00 Temperature 98.0 F Pulse Rate 80 80 80 Respiratory Rate 11 L 25 H 24 Blood Pressure 126/58 L 120/60 115/55 L Pulse Oximetry 96 90 L 93 L 02/12/18 20:21 02/12/18 22:00 02/12/18 23:26 Temperature Pulse Rate 80 80 80 Respiratory Rate 14 18 Blood Pressure Pulse Oximetry 93 L 02/13/18 00:00 02/13/18 02:00 02/13/18 03:42 Temperature 98.0 F Pulse Rate 80 80 80 Respiratory Rate 26 H 22 Blood Pressure 128/58 L Pulse Oximetry 89 L 02/13/18 04:00 02/13/18 06:00 02/13/18 08:00 Temperature 98.0 F 97.9 F Pulse Rate 80 80 80 Respiratory Rate 12 16 Blood Pressure 122/57 L 135/63 Pulse Oximetry 95 98 02/13/18 09:08 02/13/18 10:00 02/13/18 11:58 Temperature Pulse Rate 80 80 80 Respiratory Rate 17 21 Blood Pressure Pulse Oximetry 95 Intake & Output 02/12/18 02/13/18 02/13/18 18:59 06:59 18:59 Intake Total 825 / 825 480 / 480 Output Total 100 / 100 50 / 50 Balance 725 / 725 430 / 430 Weight 89 kg Intake: IV 100 / 100 Maxipime Inj 1,000 MG In NS Inj 100 / 100 100 ML @ 200 mls/hr IV.SIG Q24H [facility] Rx#:[id number] Oral 725 / 725 480 / 480 Output: Urine 100 / 100 50 / 50 Other: Date of Last Bowel Movement 02/11/18 02/11/18 02/11/18 Result Diagrams: 02/13/18 03:58 02/13/18 03:58 Other Results: Microbiology 02/09/18 10:30 Sputum - Expectorated Sputum Gram Stain - Final 02/09/18 10:30 Sputum - Expectorated Sputum Sputum Culture - Final Klebsiella pneumoniae 01/24/18 13:40 Sputum - Expectorated Sputum Gram Stain - Final 01/24/18 13:40 Sputum - Expectorated Sputum Sputum Culture - Final Heavy growth normal respiratory marielos Imaging: Chest X-Ray 01/15/18 18:13 CONCLUSION: Mild interstitial prominence without focal airspace opacities. Slight improvement prior 12/12/2017. Stable cardiomegaly. Chest X-Ray 01/23/18 09:37 CONCLUSION: Mild interval increase in interstitial opacities of concern for pulmonary edema. Abdomen X-Ray 01/23/18 23:05 CONCLUSION: 1. Nonobstructive bowel gas pattern. Chest X-Ray 01/24/18 08:50 CONCLUSION: No appreciable change. Chest X-Ray 01/25/18 09:25 CONCLUSION: No significant change. Chest X-Ray 01/29/18 09:48 CONCLUSION: 1. Stable cardiomegaly and mild positive fluid balance. 2. No significant interval change. Chest CTA 01/30/18 00:00 CONCLUSION: 1. No evidence of pulmonary embolus. 2. Severe bilateral pulmonary parenchymal opacity with predominance at the dependent portions of the lungs. Difficult diagnosis includes pulmonary edema and infection. 3. Elongated lobulated nodular density in the right midlung following the major fissure likely represents loculated pleural effusion. 4. Enlarged pulmonary arteries suggesting pulmonary arterial hypertension. 5. Enlarged heart and small pericardial effusion. 6. Small left than right pleural effusions. 7. Mildly enlarged mediastinal lymph nodes, likely reactive. Chest X-Ray 02/04/18 00:00 CONCLUSION: 1. Patchy infiltrates bilaterally consistent with moderate pulmonary edema versus pneumonia. Clinical correlation is recommended. 2. Cardiomegaly. 3. Tiny bilateral pleural effusions. Chest X-Ray 02/09/18 08:04 CONCLUSION: 1. Cardiomegaly with interstitial edema. 2. Mild airspace disease in the right lung base, presumably atelectasis. Chest X-Ray 02/12/18 00:00 CONCLUSION: Stable chest x-ray with enlarged cardiac silhouette with bilateral diffuse interstitial process. Although nonspecific the changes could be related to pulmonary edema. Objective Remarks: GENERAL: Patient is 72 yo on high flow oxygen. SKIN: Warm and dry. HEAD: Normocephalic. EYES: No scleral icterus. No injection or drainage. NECK: Supple, trachea midline. No JVD or lymphadenopathy. CARDIOVASCULAR: Regular rate and rhythm without murmurs, gallops, or rubs. RESPIRATORY: Breath sounds equal bilaterally. No accessory muscle use. Few coarse BS GASTROINTESTINAL: Abdomen soft, non-tender, nondistended. MUSCULOSKELETAL: No cyanosis, or edema. Neuro: Awake, alert. Moves all 4 extremities spontaneously. 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 Pain medications as needed. Monitor neuro status. Continue buspirone 5 mg daily CV: Monitor HR and BP keep MAP>65mmHg Status post cardiac cath. Being followed by Dr. Weinberg. s/p ablation and micra placement 02/02/18 due to failure of medical management for rate control Echo showed EF 60-65%, mod- severe pulm HTN 60-70mmHg On Lipitor 80mg qhs, Coumadin Pulmo: Wean down oxygen as mari keep sats >92%. Currently on high flow nasal cannula 3 L 55% FiO2 CT chest with no evidence of PE however did show emphysematous changes bilateral lower lobe consolidation changes as well as fluid in interlobar fissure on the right. Pulmonary arteries are enlarged with probable pulmonary hypertension. Continue with Bronchodilators with albuterol/ipratropium aerosols every 4 hours with albuterol aerosols every 2 hours as needed for dyspnea, Solumederol 30mg Q12, On Symbicort 60/4.52 puffs twice daily. CXR: Diffuse interstitial disease On Revatio 30mg TID for pulm HTN GI/liver: P.o. diabetic/renal diet Renal/: Monitor renal function, I/O's, avoid nephrotoxins Renal is following. s/p HD 02/13: 0L removed ID: Off abx s/p Zosyn 01/24- 02/07) 02/09 Sputum: Klebsiella pneumonia. Continue cefepime 2gram IV Q8 Monitor for signs of infections ( Fever, WBC) Endocrine: SSI( high scale) for glycemic control, insulin detemir 5u BID Heme: Monitor CBC, Coags- INR 2.5 today Prophylaxis: Famotidine/SCDs. Anticoagulation with Coumadin. Level 3
--- NOTE | 2018-02-13 14:08 | P.PNNP ---
Subjective Interval history: Dialyzed today. However hypotensive therefore no fluid was removed. He was started on Sildenafil. High flow increased to 60%, 30 LPM. Saturation of 93%. Not in distress. <Jyoti Ceron - Last Filed: 02/13/18 14:02> Physical Exam Vital signs: Vital Signs 02/12/18 14:27 02/12/18 14:30 02/12/18 14:45 Temperature Pulse Rate 80 80 80 Respiratory Rate 25 H 27 H 32 H Blood Pressure 118/57 L 129/56 L 105/54 L Pulse Oximetry 89 L 89 L 89 L 02/12/18 15:01 02/12/18 15:15 02/12/18 15:30 Temperature Pulse Rate 80 80 80 Respiratory Rate 31 H 19 22 Blood Pressure 107/54 L 106/55 L 109/56 L Pulse Oximetry 85 L 91 L 92 L 02/12/18 15:44 02/12/18 15:45 02/12/18 16:00 Temperature 98.0 F Pulse Rate 80 80 80 Respiratory Rate 15 13 27 H Blood Pressure 105/52 L 112/54 L Pulse Oximetry 94 L 91 L 02/12/18 16:15 02/12/18 16:30 02/12/18 16:45 Temperature Pulse Rate 80 80 80 Respiratory Rate 13 11 L 14 Blood Pressure 114/56 L 123/58 L 121/57 L Pulse Oximetry 94 L 95 97 02/12/18 17:00 02/12/18 17:15 02/12/18 17:30 Temperature Pulse Rate 80 80 80 Respiratory Rate 11 L 26 H 17 Blood Pressure 118/57 L 117/59 L 128/58 L Pulse Oximetry 95 85 L 93 L 02/12/18 17:45 02/12/18 18:00 02/12/18 18:15 Temperature Pulse Rate 80 80 80 Respiratory Rate 16 20 11 L Blood Pressure 125/60 121/60 126/58 L Pulse Oximetry 89 L 92 L 96 02/12/18 18:30 02/12/18 20:00 02/12/18 20:21 Temperature 98.0 F Pulse Rate 80 80 80 Respiratory Rate 25 H 24 14 Blood Pressure 120/60 115/55 L Pulse Oximetry 90 L 93 L 93 L 02/12/18 22:00 02/12/18 23:26 02/13/18 00:00 Temperature 98.0 F Pulse Rate 80 80 80 Respiratory Rate 18 26 H Blood Pressure 128/58 L Pulse Oximetry 89 L 02/13/18 02:00 02/13/18 03:42 02/13/18 04:00 Temperature 98.0 F Pulse Rate 80 80 80 Respiratory Rate 22 12 Blood Pressure 122/57 L Pulse Oximetry 95 02/13/18 06:00 02/13/18 08:00 02/13/18 09:08 Temperature 97.9 F Pulse Rate 80 80 80 Respiratory Rate 16 17 Blood Pressure 135/63 Pulse Oximetry 98 95 02/13/18 10:00 02/13/18 11:58 Temperature Pulse Rate 80 80 Respiratory Rate 21 Blood Pressure Pulse Oximetry Intake & Output 02/12/18 02/13/18 02/13/18 18:59 06:59 18:59 Intake Total 825 / 825 480 / 480 Output Total 100 / 100 50 / 50 Balance 725 / 725 430 / 430 Weight 89 kg Intake: IV 100 / 100 Maxipime Inj 1,000 MG In NS Inj 100 / 100 100 ML @ 200 mls/hr IV.SIG Q24H [facility] Rx#:[id number] Oral 725 / 725 480 / 480 Output: Urine 100 / 100 50 / 50 Other: Date of Last Bowel Movement 02/11/18 02/11/18 02/11/18 - Constitutional no acute distress, cachectic, chronically ill appearing, cooperative - Routine Neck Exam Present: supple, full ROM - Routine Respiratory Exam Present: accessory muscle use, rales. Absent: respiratory distress - Routine Cardiovascular Exam Present: RRR, S1, S2 Comments: paced - Routine Abdominal Exam Present: soft, normoactive bowel sounds - Routine Extremities Exam Present: full ROM, pulses intact. Absent: edema - Routine Skin Exam Present: intact, dry, warm - Routine Neurological Exam Present: alert, oriented X3, CN II-XII intact, moving all extremities - Detailed Neurological Exam: Coma Scale Eye Opening: Spontaneous Verbal Response: Oriented Motor Response: Obey commands [place] Coma Scale Total: 15 - Routine Psychiatric Exam Present: normal affect, normal thought process <Jyoti Ceron - Last Filed: 02/13/18 14:02> Vital signs: Vital Signs 02/12/18 15:15 02/12/18 15:30 02/12/18 15:44 Temperature Pulse Rate 80 80 80 Respiratory Rate 19 22 15 Blood Pressure 106/55 L 109/56 L Pulse Oximetry 91 L 92 L 02/12/18 15:45 02/12/18 16:00 02/12/18 16:15 Temperature 98.0 F Pulse Rate 80 80 80 Respiratory Rate 13 27 H 13 Blood Pressure 105/52 L 112/54 L 114/56 L Pulse Oximetry 94 L 91 L 94 L 02/12/18 16:30 02/12/18 16:45 02/12/18 17:00 Temperature Pulse Rate 80 80 80 Respiratory Rate 11 L 14 11 L Blood Pressure 123/58 L 121/57 L 118/57 L Pulse Oximetry 95 97 95 02/12/18 17:15 02/12/18 17:30 02/12/18 17:45 Temperature Pulse Rate 80 80 80 Respiratory Rate 26 H 17 16 Blood Pressure 117/59 L 128/58 L 125/60 Pulse Oximetry 85 L 93 L 89 L 02/12/18 18:00 02/12/18 18:15 02/12/18 18:30 Temperature Pulse Rate 80 80 80 Respiratory Rate 20 11 L 25 H Blood Pressure 121/60 126/58 L 120/60 Pulse Oximetry 92 L 96 90 L 02/12/18 20:00 02/12/18 20:21 02/12/18 22:00 Temperature 98.0 F Pulse Rate 80 80 80 Respiratory Rate 24 14 Blood Pressure 115/55 L Pulse Oximetry 93 L 93 L 02/12/18 23:26 02/13/18 00:00 02/13/18 02:00 Temperature 98.0 F Pulse Rate 80 80 80 Respiratory Rate 18 26 H Blood Pressure 128/58 L Pulse Oximetry 89 L 02/13/18 03:42 02/13/18 04:00 02/13/18 06:00 Temperature 98.0 F Pulse Rate 80 80 80 Respiratory Rate 22 12 Blood Pressure 122/57 L Pulse Oximetry 95 02/13/18 08:00 02/13/18 09:08 02/13/18 10:00 Temperature 97.9 F Pulse Rate 80 80 80 Respiratory Rate 16 17 Blood Pressure 135/63 Pulse Oximetry 98 95 02/13/18 11:58 Temperature Pulse Rate 80 Respiratory Rate 21 Blood Pressure Pulse Oximetry Intake & Output 02/12/18 02/13/18 02/13/18 18:59 06:59 18:59 Intake Total 825 / 825 480 / 480 Output Total 100 / 100 50 / 50 Balance 725 / 725 430 / 430 Weight 89 kg Intake: IV 100 / 100 Maxipime Inj 1,000 MG In NS Inj 100 / 100 100 ML @ 200 mls/hr IV.SIG Q24H [facility] Rx#:[id number] Oral 725 / 725 480 / 480 Output: Urine 100 / 100 50 / 50 Other: Date of Last Bowel Movement 02/11/18 02/11/18 02/11/18 <Eduardo Salvador - Last Filed: 02/13/18 15:02> Assessment and Plan - Assessment (1) ESRD (end stage renal disease) on dialysis Code(s): N18.6 - End stage renal disease; Z99.2 - Dependence on renal dialysis Status: Acute Plan: HD support continues MWF. No fluid removal today due to hypotension. Monitor electrolytes intermittently. Avoid IVF administration. Protect left arm from procedures, has new AV access that is not mature. Will need to follow with vascular at a later date. PermCath in place for HD use. On calcium acetate with meals. High protein diet with Supplements ordered. He has been losing weight, needs continued nutritional support. (2) Hypoxia Code(s): R09.02 - Hypoxemia Status: Acute Plan: He is on high flow oxygen. Etiology is unclear. Patient may have interstitial lung disease. Pulmonary following. May need lung biopsy or bronch to assist in diagnosis. There is some history of occupational exposure to pulmonary toxins. On sildenafil for pulmonary hypertension. (3) Atrial fibrillation with RVR Code(s): I48.91 - Unspecified atrial fibrillation Status: Acute Plan: Improved, s/p AV gilbert ablation with pacemaker placement. Midodrine is ordered TID for hypotension. Cardiology following. Appreciate recommendations. (4) CHF (congestive heart failure) Code(s): I50.9 - Heart failure, unspecified Status: Acute Qualifiers: Heart failure type: unspecified Heart failure chronicity: unspecified Qualified Code(s): I50.9 - Heart failure, unspecified Plan: Stable. EF noted to be around 60%. Repeat echo shows no change in EF. He has mild aortic regurgitation. Fluid removal with dialysis. (5) Anemia in CKD (chronic kidney disease) Code(s): N18.9 - Chronic kidney disease, unspecified; D63.1 - Anemia in chronic kidney disease Status: Acute Plan: On Epogen with dialysis. Hemoglobin is acceptable. <Jyoti Ceron - Last Filed: 02/13/18 14:02> - Assessment (1) ESRD (end stage renal disease) on dialysis Code(s): N18.6 - End stage renal disease; Z99.2 - Dependence on renal dialysis Status: Acute (2) Hypoxia Code(s): R09.02 - Hypoxemia Status: Acute (3) Atrial fibrillation with RVR Code(s): I48.91 - Unspecified atrial fibrillation Status: Acute (4) CHF (congestive heart failure) Code(s): I50.9 - Heart failure, unspecified Status: Acute Qualifiers: Heart failure type: unspecified Heart failure chronicity: unspecified Qualified Code(s): I50.9 - Heart failure, unspecified (5) Anemia in CKD (chronic kidney disease) Code(s): N18.9 - Chronic kidney disease, unspecified; D63.1 - Anemia in chronic kidney disease Status: Acute - Attending Attestation patient was seen and examined. Agree with above assessment and plan. <Eduardo Salvador - Last Filed: 02/13/18 15:02>
--- NOTE | 2018-02-13 15:50 | P.DIET ---
Nutritional Evaluation Type of nutrition evaluation: follow-up Nutrition screening: Weight Loss > 10 lbs Subjective Subjective Comments: Currently eating 25-50% of meals. From (02/06) visit: Pt states he is "as hungry as a horse". States he likes the Nepro and is drinking it. Objective - Diagnosis CHF, AFib w/RVR, ESRD on HD - Objective % IBW: 100 (IBW = 196#) Body Weight Used for Calculations: Actual (93kg used for assessment here) Energy Needs - Lower Range (kCal/kg): 28 Energy Needs - Upper Range (kCal/kg): 33 Lower Limit kCal/kg (kCals): 2,604 Upper Limit kCal/kg (kCals): 3,069 Lower Limit Protein Factor (Grams per Kg): 1.2 Upper Limit Protein Factor (Grams per Kg): 1.5 Lower Protein Needs (Protein): 112 Upper Protein Needs (Protein): 140 Dietitian Reviewed in Medical Record: Current diet, Curent medications, Intake & Output, Labs Diet Order: 2 gm Na Wound Care Note: Sacral Pressure Injury stage 2 See WOCN dated 02/13 Objective Comments: PMH Includes: CHF, ESRD on HD, Fistula, HTN, DM-2, hyperlipidemia Feeding - Current PO Supplement Current Supplement: Nepro Current Supplement Flavor: Vanilla Current Frequency of Supplement: Three times a day Current kCals Provided by Supplement: 425 Current Protein Provided by Supplement: 20 Assessment Assessment: Pt is at nutritional risk r/t reported recent unintentional wt loss and need for HD. Variable po intake noted. New pressure injury has been identified ( stage 2). Food preferences from pt have been obtained. Will provide double portions of protein and Nepro tid. Recommendations: Continue current diet with Nepro tid Dietitian to Monitor: Lab values, Supplement acceptance, Intake & Output, Weight change, PO Intake, Wound/skin status, Medical course
--- NOTE | 2018-02-13 16:30 | P.PN ---
Subjective Interval history: ALERT NAD STILL ON 0.6 FIO2 Physical Exam Vital signs: Vital Signs 02/12/18 16:30 02/12/18 16:45 02/12/18 17:00 Temperature Pulse Rate 80 80 80 Respiratory Rate 11 L 14 11 L Blood Pressure 123/58 L 121/57 L 118/57 L Pulse Oximetry 95 97 95 02/12/18 17:15 02/12/18 17:30 02/12/18 17:45 Temperature Pulse Rate 80 80 80 Respiratory Rate 26 H 17 16 Blood Pressure 117/59 L 128/58 L 125/60 Pulse Oximetry 85 L 93 L 89 L 02/12/18 18:00 02/12/18 18:15 02/12/18 18:30 Temperature Pulse Rate 80 80 80 Respiratory Rate 20 11 L 25 H Blood Pressure 121/60 126/58 L 120/60 Pulse Oximetry 92 L 96 90 L 02/12/18 20:00 02/12/18 20:21 02/12/18 22:00 Temperature 98.0 F Pulse Rate 80 80 80 Respiratory Rate 24 14 Blood Pressure 115/55 L Pulse Oximetry 93 L 93 L 02/12/18 23:26 02/13/18 00:00 02/13/18 02:00 Temperature 98.0 F Pulse Rate 80 80 80 Respiratory Rate 18 26 H Blood Pressure 128/58 L Pulse Oximetry 89 L 02/13/18 03:42 02/13/18 04:00 02/13/18 06:00 Temperature 98.0 F Pulse Rate 80 80 80 Respiratory Rate 22 12 Blood Pressure 122/57 L Pulse Oximetry 95 02/13/18 08:00 02/13/18 09:08 02/13/18 10:00 Temperature 97.9 F Pulse Rate 80 80 80 Respiratory Rate 16 17 Blood Pressure 135/63 Pulse Oximetry 98 95 02/13/18 11:58 02/13/18 16:04 Temperature Pulse Rate 80 80 Respiratory Rate 21 20 Blood Pressure Pulse Oximetry Intake & Output 02/12/18 02/13/18 02/13/18 18:59 06:59 18:59 Intake Total 825 / 825 480 / 480 Output Total 100 / 100 50 / 50 Balance 725 / 725 430 / 430 Weight 89 kg Intake: IV 100 / 100 Maxipime Inj 1,000 MG In NS Inj 100 / 100 100 ML @ 200 mls/hr IV.SIG Q24H PEDRO Rx#:[id number] Oral 725 / 725 480 / 480 Output: Urine 100 / 100 50 / 50 Other: Date of Last Bowel Movement 02/11/18 02/11/18 02/11/18 Narrative: GENERAL: Frail, elderly. HEENT: PERRL CARDIOVASCULAR: Paced rhythm. RESPIRATORY: bilateral wheezes, rhonchi GASTROINTESTINAL: Abdomen soft, non-tender, nondistended. Hepatic and splenic margins not palpable. Decreased bowel sounds. MUSCULOSKELETAL: Extremities without clubbing, cyanosis, mild edema. No obvious deformities. Cath site without hematoma. NEUROLOGICAL: Awake and alert. No obvious cranial nerve deficits. Results - Labs CBC & Chem 7: 02/13/18 03:58 02/13/18 03:58 Laboratory Results - last 24 hr 02/12/18 02/12/18 02/12/18 13:22 17:22 23:47 WBC RBC Hgb Hct MCV MCH MCHC RDW Plt Count MPV Neut % (Auto) Lymph % (Auto) Chase % (Auto) Eos % (Auto) Baso % (Auto) Neut # (Auto) Lymph # (Auto) Chase # (Auto) Eos # (Auto) Baso # (Auto) WBC Differential Differential Comment PT INR Sodium Potassium Chloride Carbon Dioxide Anion Gap BUN Creatinine Estimated GFR POC Glucose 240 H 201 H Random Glucose Calcium Phosphorus Magnesium Total Bilirubin AST ALT Alkaline Phosphatase Total Protein Albumin TRACEE Screen Neg 02/13/18 02/13/18 02/13/18 03:58 03:58 03:58 WBC 12.6 H RBC 3.74 L Hgb 10.8 L Hct 33.4 L MCV 89.1 MCH 28.8 MCHC 32.3 RDW 21.5 H Plt Count 103 L MPV 10.2 Neut % (Auto) 96.7 H Lymph % (Auto) 1.1 L Chase % (Auto) 2.0 Eos % (Auto) 0.0 Baso % (Auto) 0.2 Neut # (Auto) 12.2 H Lymph # (Auto) 0.1 L Chase # (Auto) 0.3 Eos # (Auto) 0.0 Baso # (Auto) 0.0 WBC Differential . Differential Comment Auto diff final PT 25.4 H INR 2.5 Sodium 134 L Potassium 5.0 Chloride 94 L Carbon Dioxide 26.7 Anion Gap 13 BUN 116 H Creatinine 7.55 H Estimated GFR 7 L POC Glucose Random Glucose 221 H Calcium 9.1 Phosphorus 6.0 H Magnesium 2.7 H Total Bilirubin 1.2 H AST 27 ALT 34 Alkaline Phosphatase 116 Total Protein 6.5 Albumin 3.1 L TRACEE Screen 02/13/18 02/13/18 06:27 11:58 WBC RBC Hgb Hct MCV MCH MCHC RDW Plt Count MPV Neut % (Auto) Lymph % (Auto) Chase % (Auto) Eos % (Auto) Baso % (Auto) Neut # (Auto) Lymph # (Auto) Chase # (Auto) Eos # (Auto) Baso # (Auto) WBC Differential Differential Comment PT INR Sodium Potassium Chloride Carbon Dioxide Anion Gap BUN Creatinine Estimated GFR POC Glucose 251 H 158 H Random Glucose Calcium Phosphorus Magnesium Total Bilirubin AST ALT Alkaline Phosphatase Total Protein Albumin TRACEE Screen Assessment and Plan - Plan RESPIRATORY FAILURE, ENAL FAILURE ? COPD Chest pain CHF POST AV NODE ABLATION PULM HTN PLAN O2 NEEDED BRONCHODILATOR THERAPY INCREASE ACTIVITY taper steroids THERAPY FOR PAH Discussed BX with patient , declined agrees to bronchoscopy, will proceed
[2018-02-13] MEDS: Calcium Acetate 667 MG Capsule PO SCH (17:47)
[2018-02-13] MEDS: Morphine Inj 4 MG/ML Vial IV.PUSH PRN (17:47)
[2018-02-14] MEDS: Insulin NovoLIN Regular Correctional Sugar Inj SQ SCH ×5 (00:20→21:12)
[2018-02-14] MEDS: Clotrimazole 10 MG Troche BUCCAL SCH ×5 (05:59→21:14)
[2018-02-14 06:18] LABS: Hematocrit 31.2 % (39.0-51.0); Hemoglobin 10.2 gm/dL (13.0-17.0); Mean Corpuscular HGB Conc 32.6 % (32.0-36.0); Mean Corpuscular Hemoglobin 29.3 pg (27.0-34.0); Mean Corpuscular Volume 89.8 fL (80.0-100.0); Mean Platelet Volume 10.3 fL (7.0-11.0); Platelet Count 85 th/mm3 (150-450); Red Blood Count 3.47 mil/mm3 (4.50-5.90); Red Cell Distribution Width 21.7 % (11.6-17.2); White Blood Count 9.4 th/mm3 (4.0-11.0)
[2018-02-14 06:25] LABS: INR 2.2 Ratio; Prothrombin Time 22.1 sec (9.8-11.6)
[2018-02-14 06:40] LABS: Albumin 2.9 g/dL (3.4-5.0); Calcium 8.2 mg/dL (8.5-10.1); Carbon Dioxide 26.3 meq/L (21.0-32.0); Phosphorus 4.1 mg/dL (2.5-4.9); Potassium 4.8 meq/L (3.5-5.1)
[2018-02-14] MEDS: Senna/Docusate Sodium 8.6/50 MG Tablet PO SCH ×2 (08:57→21:13)
[2018-02-14] MEDS: Calcium Acetate 667 MG Capsule PO SCH ×3 (08:57→18:04)
[2018-02-14] MEDS: Insulin Detemir Inj 1,000 UNIT/10 ML Vial SQ SCH ×2 (08:58→21:12)
[2018-02-14] MEDS: Budesonide-Formoterol 160/4.5 MCG 6 GM Inhaler INH SCH ×2 (08:58→21:14)
--- NOTE | 2018-02-14 09:01 | P.PNCC ---
Subjective Subjective Remarks/Hospital Course: This is a 72yM with history of ESRD on HD who was recently admitted last month for supraventricular tachycardia. It appears from the records that normal sinus rhythm was restored prior to discharge home. He re-presented to the hospital with atrial fibrillation with rapid ventricular response which has been poorly responsive to esmolol infusion. It is noted that there is still a shortage of diltiazem infusions, so none is available to place the patient on. Dr. Waters with cardiology was consulted, as was Dr. Weinberg. The patient has also had hypotension during this hospital stay with most blood pressure readings between 80-100 systolic. This morning, Bystolic was started and was given together with amiodarone 400mg and metoprolol 25mg po. Approximately 2 hours after this, his blood pressure dropped into the 60s and 70s systolic. I was consulted by Dr. Wilcox to evaluate and manage his hemodynamics in the setting of poorly-controlled atrial fibrillation and hypotension. The patient does complain of light-headedness and a little chest discomfort which is new since his blood pressure has dropped into the 70s. He denies any other complaints and tolerated breakfast this AM. ROS otherwise negative. troponins have been serially negative this admission. I performed bedside critical care echocardiography and compared this to images obtained from last hospital admission on 11/2017. Given the poorly controlled nature of the patient's rate, wall motion and accurate ejection fraction are difficult to assess with accuracy. It does appear that the patient has relatively preserved EF and at most only mildly depressed LVEF. Aortic valve is sclerotic but appears unchanged from prior echo which calculated the valve area at ~2cm. no pericardial effusion. IVC is dilated around 2cm without respiratory variation. heart rate on my evaluation is 121. 8/2: Critical care reconsulted by Dr. Weinberg for worsening respiratory failure. Patient dropped O2 sats to 84% on 6 L nasal cannula. When I evaluated patient he was resting in bed. Placed him on high flow nasal cannula 30 L/min 60% FiO2 with which his O2 sats came up to 90%. 01/30: Remains on high flow nasal cannula. CT chest negative for PE shows consolidation bilateral lower lobes and a loculated effusion on the right. Defer to pulmonary regarding further recommendations. 01/31: Remains on high flow nasal cannula. Being dialyzed currently. On 30 L/ min 60% FiO2. O2 sats 96%. Feels that he is breathing a little better. 02/01, 02/02: On high flow nasal cannula at 20 L/min 50% FiO2. Shortness of breath gradually improving. 02/03: On high flow nasal cannula 20 L/min 60% FiO2. Underwent mitral implantation and AV gilbert ablation yesterday by Dr. Weinberg. Sitting up in bed today. Appears comfortable not in any acute distress. 02/04 Patient 02/04 Patient is awake and alert on high flow oxygen 25L with 70% FIO2> Afebrile. For HD today 02/05 No events overnight. s/p HD yesterday with removal 5L. Afebrile. On 25L with FIO2 down to 50% 02/06 Patient remains on high flow oxygen with 25L 55%FIO2. Afebrile. 02/07 Patient s/p HD yesterday with removal 4.5L. Remains on high flow oxygen 25L with 50% FIO2. Afebrile. 02/08 Patient s/p HD yesterday with removal 3L. On high flow oxygen. Afebrile. 02/09 Patient remains on high flow oxygen 25L with 55% FIO2. Afebrile. For HD today 02/10 Patient is awake and alert. s/p HD yesterday with removal 3L. On 30L with 60% FIO2. Afebrile. 02/11 Patient is n 30L with 55% FIO2. Afebrile. 02/12: Patient remains on high flow nasal cannula. Very tired. Afebrile. Tolerating diet. 02/13: Hemodialysis is remained level. Unable to take fluid off due to hypotension. Remains on high flow nasal cannula 30 L 60% FiO2. Tolerating diet. Weak. SUBJECTIVE 02/14: Afebrile. Remains on high flow nasal cannula at 35 L 60%. Plan for bronchoscopy with Dr. Moore on Friday. Objective Vital Signs / I&O: Vital Signs 02/13/18 09:08 02/13/18 10:00 02/13/18 11:58 Temperature Pulse Rate 80 80 80 Respiratory Rate 17 21 Blood Pressure Pulse Oximetry 95 02/13/18 12:00 02/13/18 14:00 02/13/18 16:00 Temperature 98.6 F 98.6 F Pulse Rate 80 80 80 Respiratory Rate 16 16 Blood Pressure 96/53 L 96/53 L Pulse Oximetry 98 98 02/13/18 16:04 02/13/18 18:00 02/13/18 20:00 Temperature 98.2 F Pulse Rate 80 80 80 Respiratory Rate 20 17 Blood Pressure 106/54 L Pulse Oximetry 93 L 02/13/18 21:14 02/13/18 22:00 02/14/18 00:00 Temperature 98 F Pulse Rate 80 80 80 Respiratory Rate 20 14 Blood Pressure 92/54 L Pulse Oximetry 94 L 96 02/14/18 01:27 02/14/18 01:33 02/14/18 02:00 Temperature Pulse Rate 80 80 Respiratory Rate 20 Blood Pressure Pulse Oximetry 93 L 02/14/18 04:00 02/14/18 04:12 02/14/18 06:00 Temperature 98.2 F Pulse Rate 8 L 80 80 Respiratory Rate 11 L 20 Blood Pressure 101/54 L Pulse Oximetry 98 02/14/18 08:13 Temperature Pulse Rate 80 Respiratory Rate 24 Blood Pressure Pulse Oximetry 95 Intake & Output 02/13/18 02/14/18 02/14/18 18:59 06:59 18:59 Intake Total 580 / 580 Output Total 0 / 0 200 / 200 Balance 580 / 580 -200 / -200 Weight 90 kg Intake: IV 100 / 100 Maxipime Inj 1,000 MG In NS Inj 100 / 100 100 ML @ 200 mls/hr IV.SIG Q24H PEDRO Rx#:[id number] Oral 480 / 480 Output: Urine 0 / 0 200 / 200 Other: # Voids 4 Date of Last Bowel Movement 02/13/18 02/13/18 # Bowel Movements 2 Result Diagrams: 02/14/18 04:36 02/14/18 04:36 Other Results: Microbiology 02/09/18 10:30 Sputum - Expectorated Sputum Gram Stain - Final 02/09/18 10:30 Sputum - Expectorated Sputum Sputum Culture - Final Klebsiella pneumoniae 01/24/18 13:40 Sputum - Expectorated Sputum Gram Stain - Final 01/24/18 13:40 Sputum - Expectorated Sputum Sputum Culture - Final Heavy growth normal respiratory marielos Imaging: Chest X-Ray 01/15/18 18:13 CONCLUSION: Mild interstitial prominence without focal airspace opacities. Slight improvement prior 12/12/2017. Stable cardiomegaly. Chest X-Ray 01/23/18 09:37 CONCLUSION: Mild interval increase in interstitial opacities of concern for pulmonary edema. Abdomen X-Ray 01/23/18 23:05 CONCLUSION: 1. Nonobstructive bowel gas pattern. Chest X-Ray 01/24/18 08:50 CONCLUSION: No appreciable change. Chest X-Ray 01/25/18 09:25 CONCLUSION: No significant change. Chest X-Ray 01/29/18 09:48 CONCLUSION: 1. Stable cardiomegaly and mild positive fluid balance. 2. No significant interval change. Chest CTA 01/30/18 00:00 CONCLUSION: 1. No evidence of pulmonary embolus. 2. Severe bilateral pulmonary parenchymal opacity with predominance at the dependent portions of the lungs. Difficult diagnosis includes pulmonary edema and infection. 3. Elongated lobulated nodular density in the right midlung following the major fissure likely represents loculated pleural effusion. 4. Enlarged pulmonary arteries suggesting pulmonary arterial hypertension. 5. Enlarged heart and small pericardial effusion. 6. Small left than right pleural effusions. 7. Mildly enlarged mediastinal lymph nodes, likely reactive. Chest X-Ray 02/04/18 00:00 CONCLUSION: 1. Patchy infiltrates bilaterally consistent with moderate pulmonary edema versus pneumonia. Clinical correlation is recommended. 2. Cardiomegaly. 3. Tiny bilateral pleural effusions. Chest X-Ray 02/09/18 08:04 CONCLUSION: 1. Cardiomegaly with interstitial edema. 2. Mild airspace disease in the right lung base, presumably atelectasis. Chest X-Ray 02/12/18 00:00 CONCLUSION: Stable chest x-ray with enlarged cardiac silhouette with bilateral diffuse interstitial process. Although nonspecific the changes could be related to pulmonary edema. Objective Remarks: GENERAL: Patient is 72 yo male currently resting in bed on high flow oxygen. SKIN: Warm and dry. HEAD: Normocephalic. EYES: No scleral icterus. No injection or drainage. NECK: Supple, trachea midline. No JVD or lymphadenopathy. CARDIOVASCULAR: Regular rate and rhythm without murmurs, gallops, or rubs. RESPIRATORY: Breath sounds equal bilaterally. No accessory muscle use. Few coarse BS GASTROINTESTINAL: Abdomen soft, non-tender, nondistended. MUSCULOSKELETAL: No c significant peripheral edema. Neuro: Awake, alert. Moves all 4 extremities spontaneously. 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 Pain medications as needed. Monitor neuro status. Continue buspirone 5 mg daily CV: Monitor HR and BP keep MAP>65mmHg Status post cardiac cath. Being followed by Dr. Weinberg. s/p ablation and micra placement 02/02/18 due to failure of medical management for rate control Echo showed EF 60-65%, mod- severe pulm HTN 60-70mmHg On Lipitor 80mg qhs, warfarin Pulmo: Wean down oxygen as mari keep sats >92%. Currently on high flow nasal cannula 30 L 60% FiO2 CT chest with no evidence of PE however did show emphysematous changes bilateral lower lobe consolidation changes as well as fluid in interlobar fissure on the right. Pulmonary arteries are enlarged with probable pulmonary hypertension. Continue with Bronchodilators with albuterol/ipratropium aerosols every 4 hours with albuterol aerosols every 2 hours as needed for dyspnea, methylprednisolone succinate 30mg Q12, On budesonide/formoterol 80/4.5 2 puffs twice daily. CXR: Diffuse interstitial disease On sildenafil 30mg TID for pulm HTN Plan for fiberoptic bronchoscopy with pulmonology on Friday GI/liver: P.o. diabetic/renal diet Renal/: Monitor renal function, I/O's, avoid nephrotoxins Renal is following. s/p HD 02/13: 0L removed ID: Off abx s/p Zosyn 01/24- 02/07) 02/09 Sputum: Klebsiella pneumonia. Continue cefepime 2gram IV Q8 Monitor for signs of infections ( Fever, WBC) Endocrine: SSI (high scale) for glycemic control, insulin detemir 5u BID Heme: Monitor CBC, Coags- INR 2.5 today Prophylaxis: Famotidine/SCDs. Anticoagulation with warfarin. Level 3
--- NOTE | 2018-02-14 09:52 | P.PNCA ---
Subjective Interval history: still has hemoptysis, not worse, alert in nad Physical Exam Vital signs: Vital Signs 02/13/18 10:00 02/13/18 11:58 02/13/18 12:00 Temperature 98.6 F Pulse Rate 80 80 80 Respiratory Rate 21 16 Blood Pressure 96/53 L Pulse Oximetry 98 02/13/18 14:00 02/13/18 16:00 02/13/18 16:04 Temperature 98.6 F Pulse Rate 80 80 80 Respiratory Rate 16 20 Blood Pressure 96/53 L Pulse Oximetry 98 02/13/18 18:00 02/13/18 20:00 02/13/18 21:14 Temperature 98.2 F Pulse Rate 80 80 80 Respiratory Rate 17 20 Blood Pressure 106/54 L Pulse Oximetry 93 L 94 L 02/13/18 22:00 02/14/18 00:00 02/14/18 01:27 Temperature 98 F Pulse Rate 80 80 80 Respiratory Rate 14 20 Blood Pressure 92/54 L Pulse Oximetry 96 02/14/18 01:33 02/14/18 02:00 02/14/18 04:00 Temperature 98.2 F Pulse Rate 80 8 L Respiratory Rate 11 L Blood Pressure 101/54 L Pulse Oximetry 93 L 98 02/14/18 04:12 02/14/18 06:00 02/14/18 08:13 Temperature Pulse Rate 80 80 80 Respiratory Rate 20 24 Blood Pressure Pulse Oximetry 95 Intake & Output 02/13/18 02/14/18 02/14/18 18:59 06:59 18:59 Intake Total 580 / 580 Output Total 0 / 0 200 / 200 Balance 580 / 580 -200 / -200 Weight 90 kg Intake: IV 100 / 100 Maxipime Inj 1,000 MG In NS Inj 100 / 100 100 ML @ 200 mls/hr IV.SIG Q24H PEDRO Rx#:[id number] Oral 480 / 480 Output: Urine 0 / 0 200 / 200 Other: # Voids 4 Date of Last Bowel Movement 02/13/18 02/13/18 # Bowel Movements 2 Assessment and Plan - Assessment (1) Atrial fibrillation with rapid ventricular response Code(s): I48.91 - Unspecified atrial fibrillation Status: Acute (2) CHF (congestive heart failure) Code(s): I50.9 - Heart failure, unspecified Status: Acute (3) Chronic kidney disease with end stage renal failure on dialysis Code(s): N18.6 - End stage renal disease; Z99.2 - Dependence on renal dialysis Status: Acute (4) Atrial fibrillation with RVR Code(s): I48.91 - Unspecified atrial fibrillation Status: Acute (5) ESRD (end stage renal disease) on dialysis Code(s): N18.6 - End stage renal disease; Z99.2 - Dependence on renal dialysis Status: Acute - Plan 1.) Afib with rvr - s/p ablation and micra placement 02/02/18 due to failure of medical management for rate control, d/w patient, inr therapeutic, hgb stable, rate controlled, inr=2.2 and hgb = 10.2 02/14/18 2.) CAD - continue, lipitor, coumadin at 2 mg qd, has hemoptyis which is improving, f/u inr and cbc in am (2) CHF (congestive heart failure) Qualifiers: Heart failure type: unspecified Heart failure chronicity: unspecified Qualified Code(s): I50.9 - Heart failure, unspecified
[2018-02-14] MEDS: MethylPREDNISolone Sod Succinate Inj 40 MG/ML Vial IV.PUSH SCH ×2 (10:22→21:14)
--- NOTE | 2018-02-14 12:02 | P.PNNP ---
Subjective Interval history: no acute complaints Physical Exam Vital signs: Vital Signs 02/13/18 11:58 02/13/18 12:00 02/13/18 14:00 Temperature 98.6 F Pulse Rate 80 80 80 Respiratory Rate 21 16 Blood Pressure 96/53 L Pulse Oximetry 98 02/13/18 16:00 02/13/18 16:04 02/13/18 18:00 Temperature 98.6 F Pulse Rate 80 80 80 Respiratory Rate 16 20 Blood Pressure 96/53 L Pulse Oximetry 98 02/13/18 20:00 02/13/18 21:14 02/13/18 22:00 Temperature 98.2 F Pulse Rate 80 80 80 Respiratory Rate 17 20 Blood Pressure 106/54 L Pulse Oximetry 93 L 94 L 02/14/18 00:00 02/14/18 01:27 02/14/18 01:33 Temperature 98 F Pulse Rate 80 80 Respiratory Rate 14 20 Blood Pressure 92/54 L Pulse Oximetry 96 93 L 02/14/18 02:00 02/14/18 04:00 02/14/18 04:12 Temperature 98.2 F Pulse Rate 80 8 L 80 Respiratory Rate 11 L 20 Blood Pressure 101/54 L Pulse Oximetry 98 02/14/18 06:00 02/14/18 08:13 02/14/18 11:15 Temperature Pulse Rate 80 80 80 Respiratory Rate 24 20 Blood Pressure Pulse Oximetry 95 Intake & Output 02/13/18 02/14/18 02/14/18 18:59 06:59 18:59 Intake Total 580 / 580 100 / 100 Output Total 0 / 0 200 / 200 Balance 580 / 580 -200 / -200 100 / 100 Weight 90 kg Intake: IV 100 / 100 100 / 100 Maxipime Inj 1,000 MG In NS Inj 100 / 100 100 / 100 100 ML @ 200 mls/hr IV.SIG Q24H PEDRO Rx#:[id number] Oral 480 / 480 Output: Urine 0 / 0 200 / 200 Other: # Voids 4 Date of Last Bowel Movement 02/13/18 02/13/18 # Bowel Movements 2 - Constitutional no acute distress - Routine HEENT Exam Head: Present: normocephalic Eye: Present: EOMI ENT: Present: mucous membranes moist - Routine Neck Exam Present: supple - Routine Respiratory Exam Present: CTA bilaterally - Routine Cardiovascular Exam Present: RRR - Routine Abdominal Exam Present: soft - Routine Extremities Exam Present: AV fistula - Routine Skin Exam Present: intact - Routine Neurological Exam Present: alert, oriented X3, CN II-XII intact - Detailed Neurological Exam: Coma Scale Eye Opening: Spontaneous - Routine Psychiatric Exam Present: normal affect Assessment and Plan - Assessment (1) ESRD (end stage renal disease) on dialysis Code(s): N18.6 - End stage renal disease; Z99.2 - Dependence on renal dialysis Status: Acute Plan: HD support continues MW. No fluid removal Friday due to hypotension. Plan for next HD Friday Monitor electrolytes intermittently. Avoid IVF administration. Protect left arm from procedures, has new AV access that is not mature. Will need to follow with vascular (Dr. Hutson) at a later date. Appears to be maturing well. PermCath in place for HD use. On calcium acetate with meals. High protein diet with Supplements ordered. He has been losing weight, needs continued nutritional support. (2) Hypoxia Code(s): R09.02 - Hypoxemia Status: Acute Plan: He is on high flow oxygen. Etiology is unclear. Patient may have interstitial lung disease. Pulmonary following. May need lung biopsy or bronch to assist in diagnosis. There is some history of occupational exposure to pulmonary toxins. On sildenafil for pulmonary hypertension. (3) Atrial fibrillation with RVR Code(s): I48.91 - Unspecified atrial fibrillation Status: Acute Plan: Improved, s/p AV gilbert ablation with pacemaker placement. Midodrine is ordered TID for hypotension. Cardiology following. Appreciate recommendations. (4) CHF (congestive heart failure) Code(s): I50.9 - Heart failure, unspecified Status: Acute Qualifiers: Heart failure type: unspecified Heart failure chronicity: unspecified Qualified Code(s): I50.9 - Heart failure, unspecified Plan: Stable. EF noted to be around 60%. Repeat echo shows no change in EF. He has mild aortic regurgitation. Fluid removal with dialysis. (5) Anemia in CKD (chronic kidney disease) Code(s): N18.9 - Chronic kidney disease, unspecified; D63.1 - Anemia in chronic kidney disease Status: Acute Plan: On Epogen with dialysis. Hemoglobin is acceptable.
--- NOTE | 2018-02-14 15:54 | P.PN ---
Subjective Interval history: ALERT SITTING IN BED NAD O2 HIGH FLOW NC Physical Exam Vital signs: Vital Signs 02/13/18 16:00 02/13/18 16:04 02/13/18 17:00 Temperature 98.6 F Pulse Rate 80 80 80 Respiratory Rate 21 20 37 H Blood Pressure 100/54 L 106/55 L Pulse Oximetry 88 L 89 L 02/13/18 18:00 02/13/18 19:00 02/13/18 20:00 Temperature 98.2 F Pulse Rate 80 80 80 Respiratory Rate 23 20 17 Blood Pressure 107/50 L 117/58 L 106/54 L Pulse Oximetry 91 L 88 L 93 L 02/13/18 21:00 02/13/18 21:14 02/13/18 22:00 Temperature Pulse Rate 80 80 80 Respiratory Rate 16 20 32 H Blood Pressure 91/52 L 99/55 L Pulse Oximetry 92 L 94 L 89 L 02/13/18 23:00 02/14/18 00:00 02/14/18 01:00 Temperature 98 F Pulse Rate 80 80 80 Respiratory Rate 26 H 14 18 Blood Pressure 100/50 L 92/54 L 87/51 L Pulse Oximetry 93 L 96 95 02/14/18 01:27 02/14/18 01:33 02/14/18 02:00 Temperature Pulse Rate 80 80 Respiratory Rate 20 31 H Blood Pressure 99/55 L Pulse Oximetry 93 L 91 L 02/14/18 03:01 02/14/18 04:00 02/14/18 04:12 Temperature 98.2 F Pulse Rate 80 80 80 Respiratory Rate 19 11 L 20 Blood Pressure 96/53 L 101/54 L Pulse Oximetry 89 L 98 02/14/18 05:00 02/14/18 06:00 02/14/18 07:00 Temperature Pulse Rate 80 80 80 Respiratory Rate 13 15 32 H Blood Pressure 96/55 L 101/52 L 107/53 L Pulse Oximetry 99 91 L 85 L 02/14/18 08:00 02/14/18 08:13 02/14/18 09:00 Temperature 98.3 F Pulse Rate 80 80 80 Respiratory Rate 27 H 24 27 H Blood Pressure 96/52 L 113/55 L Pulse Oximetry 93 L 95 91 L 02/14/18 10:00 02/14/18 11:00 02/14/18 11:15 Temperature Pulse Rate 80 80 80 Respiratory Rate 22 17 20 Blood Pressure 113/55 L 102/53 L Pulse Oximetry 90 L 93 L 02/14/18 12:00 02/14/18 12:01 02/14/18 14:00 Temperature 98.1 F Pulse Rate 80 80 80 Respiratory Rate 20 17 Blood Pressure 119/59 L 119/59 L Pulse Oximetry 91 L 93 L Intake & Output 02/13/18 02/14/18 02/14/18 18:59 06:59 18:59 Intake Total 580 / 580 100 / 100 Output Total 0 / 0 200 / 200 Balance 580 / 580 -200 / -200 100 / 100 Weight 90 kg Intake: IV 100 / 100 100 / 100 Maxipime Inj 1,000 MG In NS Inj 100 / 100 100 / 100 100 ML @ 200 mls/hr IV.SIG Q24H [facility] Rx#:[id number] Oral 480 / 480 Output: Urine 0 / 0 200 / 200 Other: # Voids 4 Date of Last Bowel Movement 02/13/18 02/13/18 02/14/18 # Bowel Movements 2 Narrative: GENERAL: Frail, elderly. HEENT: PERRL CARDIOVASCULAR: Paced rhythm. RESPIRATORY: bilateral wheezes, rhonchi GASTROINTESTINAL: Abdomen soft, non-tender, nondistended. Hepatic and splenic margins not palpable. Decreased bowel sounds. MUSCULOSKELETAL: Extremities without clubbing, cyanosis, mild edema. No obvious deformities. Cath site without hematoma. NEUROLOGICAL: Awake and alert. No obvious cranial nerve deficits. Results - Labs CBC & Chem 7: 02/14/18 04:36 02/14/18 04:36 Laboratory Results - last 24 hr 02/13/18 02/14/18 02/14/18 18:01 00:09 04:36 WBC RBC Hgb Hct MCV MCH MCHC RDW Plt Count MPV PT 22.1 H INR 2.2 Sodium Potassium Chloride Carbon Dioxide Anion Gap BUN Creatinine Estimated GFR POC Glucose 183 H 157 H Random Glucose Calcium Phosphorus Albumin 02/14/18 02/14/18 02/14/18 04:36 04:36 05:53 WBC 9.4 RBC 3.47 L Hgb 10.2 L Hct 31.2 L MCV 89.8 MCH 29.3 MCHC 32.6 RDW 21.7 H Plt Count 85 L MPV 10.3 PT INR Sodium 136 Potassium 4.8 Chloride 97 L Carbon Dioxide 26.3 Anion Gap 13 BUN 82 H Creatinine 5.87 H Estimated GFR 10 L POC Glucose 321 H Random Glucose 223 H Calcium 8.2 L D Phosphorus 4.1 D Albumin 2.9 L 02/14/18 12:29 WBC RBC Hgb Hct MCV MCH MCHC RDW Plt Count MPV PT INR Sodium Potassium Chloride Carbon Dioxide Anion Gap BUN Creatinine Estimated GFR POC Glucose 141 H Random Glucose Calcium Phosphorus Albumin Assessment and Plan - Plan RESPIRATORY FAILURE, ENAL FAILURE ? COPD Chest pain CHF POST AV NODE ABLATION PULM HTN PLAN O2 NEEDED BRONCHODILATOR THERAPY INCREASE ACTIVITY taper steroids THERAPY FOR PAH Discussed BX with patient , declined agrees to bronchoscopy, will proceed
[2018-02-14] MEDS: Morphine Inj 4 MG/ML Vial IV.PUSH PRN (23:10)
--- NOTE | 2018-02-15 05:49 | XR ---
EXAM DATE: 02/15/2018 5:31 AM EDT AGE/SEX: 72 years / Male INDICATIONS: Shortness of breath, possible pulmonary disease. CLINICAL DATA: This is the patient's subsequent encounter. Patient reports that signs and symptoms h ave been present for 1 week and indicates a pain score of 0/10. MEDICAL/SURGICAL HISTORY: Hypertension. Chronic obstructive pulmonary disease. Congestive hea rt failure. A-Fib. None. COMPARISON: [facility] [place], CHEST 1V SINGLE AP, 02/12/2018. . FINDINGS: The cardiac silhouette is enlarged. There is a double-lumen central line in place from the right inte rnal jugular approach with the tips overlying the SVC and right atrium. The lungs demonstrate diffuse increased interstitial markings. There is some pleural thickening along the lateral right lower ches t. CONCLUSION: Cardiomegaly. Diffuse increased interstitial markings likely related to diffuse processes such as edema. Possible mild right pleural effusion. Electronically signed by: Osmar James MD 02/15/2018 5:48 AM EDT
[2018-02-15 06:07] LABS: Baso % (Auto) 0.4 % (0.0-2.0); Hematocrit 29.9 % (39.0-51.0); Hemoglobin 9.9 gm/dL (13.0-17.0); Lymph # (Auto) 0.2 th/mm3 (1.0-4.8); Lymph % (Auto) 1.9 % (9.0-44.0); Mean Corpuscular Hemoglobin 29.5 pg (27.0-34.0); Mean Corpuscular Volume 89.5 fL (80.0-100.0); Mean Platelet Volume 9.9 fL (7.0-11.0); Mono # (Auto) 0.3 th/mm3 (0.0-0.9); Mono % (Auto) 2.7 % (0.0-8.0); Neut # (Auto) 9.5 th/mm3 (1.8-7.7); Platelet Count 74 th/mm3 (150-450); Red Blood Count 3.35 mil/mm3 (4.50-5.90); Red Cell Distribution Width 21.6 % (11.6-17.2)
[2018-02-15 06:16] LABS: INR 1.8 Ratio; Prothrombin Time 17.9 sec (9.8-11.6)
[2018-02-15 06:34] LABS: Alanine Aminotransferase 43 U/L (12-78); Albumin 2.9 g/dL (3.4-5.0); Alkaline Phosphatase 109 U/L (45-117); Anion Gap 15 meq/L (5-15); Aspartate Aminotransferase 35 U/L (15-37); Blood Urea Nitrogen 108 mg/dL (7-18); Calcium 8.6 mg/dL (8.5-10.1); Carbon Dioxide 25.4 meq/L (21.0-32.0); Chloride 96 meq/L (98-107); Glomerular Filtration Rate 8 mL/min (>89); Glucose,Random 96 mg/dL (74-106); Magnesium 2.6 mg/dL (1.5-2.5); Phosphorus 4.3 mg/dL (2.5-4.9); Sodium 136 meq/L (136-145); Total Protein 6.2 g/dL (6.4-8.2)
[2018-02-15] MEDS: Clotrimazole 10 MG Troche BUCCAL SCH ×5 (07:42→21:45)
[2018-02-15 08:58] LABS: Ovalocytes 1+; Platelet Morphology Normal (Normal)
[2018-02-15 08:59] LABS: Acanthocytes 1+
[2018-02-15] MEDS: Budesonide-Formoterol 160/4.5 MCG 6 GM Inhaler INH SCH ×2 (09:25→21:44)
[2018-02-15] MEDS: Calcium Acetate 667 MG Capsule PO SCH ×3 (09:25→18:11)
[2018-02-15] MEDS: Insulin Detemir Inj 1,000 UNIT/10 ML Vial SQ SCH ×2 (09:26→21:43)
[2018-02-15] MEDS: MethylPREDNISolone Sod Succinate Inj 40 MG/ML Vial IV.PUSH SCH ×2 (09:26→21:45)
[2018-02-15] MEDS: Insulin NovoLIN Regular Correctional Sugar Inj SQ SCH ×4 (09:28→21:44)
[2018-02-15] MEDS: Senna/Docusate Sodium 8.6/50 MG Tablet PO SCH ×2 (09:29→21:44)
--- NOTE | 2018-02-15 10:08 | P.PNCA ---
Subjective Interval history: alert in nad, hemoptysis unchanged Physical Exam Vital signs: Vital Signs 02/14/18 11:00 02/14/18 11:15 02/14/18 12:00 Temperature 98.1 F Pulse Rate 80 80 80 Respiratory Rate 17 20 20 Blood Pressure 102/53 L 119/59 L Pulse Oximetry 93 L 91 L 02/14/18 12:01 02/14/18 13:00 02/14/18 14:00 Temperature Pulse Rate 80 80 80 Respiratory Rate 17 26 H 38 H Blood Pressure 119/59 L 123/59 L 127/61 Pulse Oximetry 93 L 93 L 91 L 02/14/18 15:00 02/14/18 16:00 02/14/18 16:01 Temperature 97.9 F Pulse Rate 80 80 80 Respiratory Rate 20 24 22 Blood Pressure 115/58 L 122/60 Pulse Oximetry 97 96 97 02/14/18 16:24 02/14/18 18:00 02/14/18 20:00 Temperature 97.9 F Pulse Rate 80 80 80 Respiratory Rate 24 25 H Blood Pressure 101/54 L Pulse Oximetry 94 L 02/14/18 20:48 02/14/18 22:00 02/14/18 23:22 Temperature Pulse Rate 80 80 80 Respiratory Rate 20 20 Blood Pressure Pulse Oximetry 93 L 02/15/18 00:00 02/15/18 02:00 02/15/18 03:48 Temperature 98.3 F Pulse Rate 80 80 80 Respiratory Rate 22 18 Blood Pressure 111/55 L Pulse Oximetry 95 02/15/18 04:00 02/15/18 06:00 Temperature Pulse Rate 80 80 Respiratory Rate 15 Blood Pressure 104/58 L Pulse Oximetry 95 Intake & Output 02/14/18 02/15/18 02/15/18 18:59 06:59 18:59 Intake Total 1060 / 1060 240 / 240 Output Total 325 / 325 Balance 1060 / 1060 -85 / -85 Weight 92 kg Intake: IV 100 / 100 Maxipime Inj 1,000 MG In NS Inj 100 / 100 100 ML @ 200 mls/hr IV.SIG Q24H [facility] Rx#:[id number] Oral 960 / 960 240 / 240 Oral Supplement 0 / 0 Output: Urine 325 / 325 Stool 0 / 0 Urine/Stool Mix 0 / 0 Hemodialysis Amount 0 / 0 Other: # Voids 2 # Incontinent Voids 0 Date of Last Bowel Movement 02/14/18 02/15/18 # Bowel Movements 1 1 # Incontinent Bowel Movements 1 Assessment and Plan - Assessment (1) Atrial fibrillation with rapid ventricular response Code(s): I48.91 - Unspecified atrial fibrillation Status: Acute (2) CHF (congestive heart failure) Code(s): I50.9 - Heart failure, unspecified Status: Acute (3) Chronic kidney disease with end stage renal failure on dialysis Code(s): N18.6 - End stage renal disease; Z99.2 - Dependence on renal dialysis Status: Acute (4) Atrial fibrillation with RVR Code(s): I48.91 - Unspecified atrial fibrillation Status: Acute (5) ESRD (end stage renal disease) on dialysis Code(s): N18.6 - End stage renal disease; Z99.2 - Dependence on renal dialysis Status: Acute - Plan 1.) Afib with rvr - s/p ablation and micra placement 02/02/18 due to failure of medical management for rate control, d/w patient, inr therapeutic, hgb stable, rate controlled, inr=2.2 and hgb = 10.2 02/14/18 2.) CAD - continue, lipitor, low risk to hold coumadin to hold for bronchoscopy , has hemoptyis which is improving, f/u inr and cbc in am (2) CHF (congestive heart failure) Qualifiers: Heart failure type: unspecified Heart failure chronicity: unspecified Qualified Code(s): I50.9 - Heart failure, unspecified
--- NOTE | 2018-02-15 11:30 | P.PNNP ---
Subjective Interval history: no acute complaints Physical Exam Vital signs: Vital Signs 02/14/18 12:00 02/14/18 12:01 02/14/18 13:00 Temperature 98.1 F Pulse Rate 80 80 80 Respiratory Rate 20 17 26 H Blood Pressure 119/59 L 119/59 L 123/59 L Pulse Oximetry 91 L 93 L 93 L 02/14/18 14:00 02/14/18 15:00 02/14/18 16:00 Temperature 97.9 F Pulse Rate 80 80 80 Respiratory Rate 38 H 20 24 Blood Pressure 127/61 115/58 L Pulse Oximetry 91 L 97 96 02/14/18 16:01 02/14/18 16:24 02/14/18 18:00 Temperature Pulse Rate 80 80 80 Respiratory Rate 22 24 Blood Pressure 122/60 Pulse Oximetry 97 02/14/18 20:00 02/14/18 20:48 02/14/18 22:00 Temperature 97.9 F Pulse Rate 80 80 80 Respiratory Rate 25 H 20 Blood Pressure 101/54 L Pulse Oximetry 94 L 93 L 02/14/18 23:22 02/15/18 00:00 02/15/18 02:00 Temperature 98.3 F Pulse Rate 80 80 80 Respiratory Rate 20 22 Blood Pressure 111/55 L Pulse Oximetry 95 02/15/18 03:48 02/15/18 04:00 02/15/18 06:00 Temperature Pulse Rate 80 80 80 Respiratory Rate 18 15 Blood Pressure 104/58 L Pulse Oximetry 95 02/15/18 10:14 Temperature Pulse Rate 80 Respiratory Rate 22 Blood Pressure Pulse Oximetry 65 L Intake & Output 02/14/18 02/15/18 02/15/18 18:59 06:59 18:59 Intake Total 1060 / 1060 240 / 240 Output Total 325 / 325 Balance 1060 / 1060 -85 / -85 Weight 92 kg Intake: IV 100 / 100 Maxipime Inj 1,000 MG In NS Inj 100 / 100 100 ML @ 200 mls/hr IV.SIG Q24H [facility] Rx#:[id number] Oral 960 / 960 240 / 240 Oral Supplement 0 / 0 Output: Urine 325 / 325 Stool 0 / 0 Urine/Stool Mix 0 / 0 Hemodialysis Amount 0 / 0 Other: # Voids 2 # Incontinent Voids 0 Date of Last Bowel Movement 02/14/18 02/15/18 # Bowel Movements 1 1 # Incontinent Bowel Movements 1 - Constitutional no acute distress - Routine HEENT Exam Head: Present: normocephalic - Routine Neck Exam Present: supple - Routine Respiratory Exam Present: decreased breath sounds - Routine Cardiovascular Exam Present: RRR - Routine Abdominal Exam Present: soft - Routine Extremities Exam Present: AV fistula - Routine Skin Exam Present: intact - Routine Neurological Exam Present: alert, oriented X3 - Detailed Neurological Exam: Coma Scale Eye Opening: Spontaneous - Routine Psychiatric Exam Present: normal affect Assessment and Plan - Assessment (1) ESRD (end stage renal disease) on dialysis Code(s): N18.6 - End stage renal disease; Z99.2 - Dependence on renal dialysis Status: Acute Plan: HD support continues MW. No fluid removal Friday due to hypotension. Plan for next HD Friday Monitor electrolytes intermittently. Avoid IVF administration. Protect left arm from procedures, has new AV access that is not mature yet. Will need to follow with vascular (Dr. Hutson) at a later date. Appears to be maturing well. PermCath in place for HD use. On calcium acetate with meals. High protein diet with Supplements ordered. He has been losing weight, needs continued nutritional support. (2) Hypoxia Code(s): R09.02 - Hypoxemia Status: Acute Plan: He is on high flow oxygen. Etiology is unclear. Patient may have interstitial lung disease. Pulmonary following. May need lung biopsy or bronch to assist in diagnosis. There is some history of occupational exposure to pulmonary toxins. On sildenafil for pulmonary hypertension. (3) Atrial fibrillation with RVR Code(s): I48.91 - Unspecified atrial fibrillation Status: Acute Plan: Improved, s/p AV gilbert ablation with pacemaker placement. Midodrine is ordered TID for hypotension. Cardiology following. Appreciate recommendations. (4) CHF (congestive heart failure) Code(s): I50.9 - Heart failure, unspecified Status: Acute Qualifiers: Heart failure type: unspecified Heart failure chronicity: unspecified Qualified Code(s): I50.9 - Heart failure, unspecified Plan: Stable. EF noted to be around 60%. Repeat echo shows no change in EF. He has mild aortic regurgitation. Fluid removal with dialysis. (5) Anemia in CKD (chronic kidney disease) Code(s): N18.9 - Chronic kidney disease, unspecified; D63.1 - Anemia in chronic kidney disease Status: Acute Plan: On Epogen with dialysis. Hemoglobin is acceptable.
--- NOTE | 2018-02-15 14:49 | P.PNCC ---
Subjective Subjective Remarks/Hospital Course: This is a 72yM with history of ESRD on HD who was recently admitted last month for supraventricular tachycardia. It appears from the records that normal sinus rhythm was restored prior to discharge home. He re-presented to the hospital with atrial fibrillation with rapid ventricular response which has been poorly responsive to esmolol infusion. It is noted that there is still a shortage of diltiazem infusions, so none is available to place the patient on. Dr. Waters with cardiology was consulted, as was Dr. Weinberg. The patient has also had hypotension during this hospital stay with most blood pressure readings between 80-100 systolic. This morning, Bystolic was started and was given together with amiodarone 400mg and metoprolol 25mg po. Approximately 2 hours after this, his blood pressure dropped into the 60s and 70s systolic. I was consulted by Dr. Wilcox to evaluate and manage his hemodynamics in the setting of poorly-controlled atrial fibrillation and hypotension. The patient does complain of light-headedness and a little chest discomfort which is new since his blood pressure has dropped into the 70s. He denies any other complaints and tolerated breakfast this AM. ROS otherwise negative. troponins have been serially negative this admission. I performed bedside critical care echocardiography and compared this to images obtained from last hospital admission on 11/2017. Given the poorly controlled nature of the patient's rate, wall motion and accurate ejection fraction are difficult to assess with accuracy. It does appear that the patient has relatively preserved EF and at most only mildly depressed LVEF. Aortic valve is sclerotic but appears unchanged from prior echo which calculated the valve area at ~2cm. no pericardial effusion. IVC is dilated around 2cm without respiratory variation. heart rate on my evaluation is 121. 8/2: Critical care reconsulted by Dr. Weinberg for worsening respiratory failure. Patient dropped O2 sats to 84% on 6 L nasal cannula. When I evaluated patient he was resting in bed. Placed him on high flow nasal cannula 30 L/min 60% FiO2 with which his O2 sats came up to 90%. 01/30: Remains on high flow nasal cannula. CT chest negative for PE shows consolidation bilateral lower lobes and a loculated effusion on the right. Defer to pulmonary regarding further recommendations. 01/31: Remains on high flow nasal cannula. Being dialyzed currently. On 30 L/ min 60% FiO2. O2 sats 96%. Feels that he is breathing a little better. 02/01, 02/02: On high flow nasal cannula at 20 L/min 50% FiO2. Shortness of breath gradually improving. 02/03: On high flow nasal cannula 20 L/min 60% FiO2. Underwent mitral implantation and AV gilbert ablation yesterday by Dr. Weinberg. Sitting up in bed today. Appears comfortable not in any acute distress. 02/04 Patient 02/04 Patient is awake and alert on high flow oxygen 25L with 70% FIO2> Afebrile. For HD today 02/05 No events overnight. s/p HD yesterday with removal 5L. Afebrile. On 25L with FIO2 down to 50% 02/06 Patient remains on high flow oxygen with 25L 55%FIO2. Afebrile. 02/07 Patient s/p HD yesterday with removal 4.5L. Remains on high flow oxygen 25L with 50% FIO2. Afebrile. 02/08 Patient s/p HD yesterday with removal 3L. On high flow oxygen. Afebrile. 02/09 Patient remains on high flow oxygen 25L with 55% FIO2. Afebrile. For HD today 02/10 Patient is awake and alert. s/p HD yesterday with removal 3L. On 30L with 60% FIO2. Afebrile. 02/11 Patient is n 30L with 55% FIO2. Afebrile. 02/12: Patient remains on high flow nasal cannula. Very tired. Afebrile. Tolerating diet. 02/13: Hemodialysis is remained level. Unable to take fluid off due to hypotension. Remains on high flow nasal cannula 30 L 60% FiO2. Tolerating diet. Weak. 02/14: Afebrile. Remains on high flow nasal cannula at 35 L 60%. Plan for bronchoscopy with Dr. Moore on Friday. SUBJECTIVE 02/15: Afebrile. Disconnect oxygen desaturation. Currently on high flow nasal cannula 40 L at 80%. Will recheck chest x-ray in a.m. Hemoptysis present but not as copious as before previously. Objective Vital Signs / I&O: Vital Signs 02/14/18 15:00 02/14/18 16:00 02/14/18 16:01 Temperature 97.9 F Pulse Rate 80 80 80 Respiratory Rate 20 24 22 Blood Pressure 115/58 L 122/60 Pulse Oximetry 97 96 97 02/14/18 16:24 02/14/18 18:00 02/14/18 20:00 Temperature 97.9 F Pulse Rate 80 80 80 Respiratory Rate 24 25 H Blood Pressure 101/54 L Pulse Oximetry 94 L 02/14/18 20:48 02/14/18 22:00 02/14/18 23:22 Temperature Pulse Rate 80 80 80 Respiratory Rate 20 20 Blood Pressure Pulse Oximetry 93 L 02/15/18 00:00 02/15/18 02:00 02/15/18 03:48 Temperature 98.3 F Pulse Rate 80 80 80 Respiratory Rate 22 18 Blood Pressure 111/55 L Pulse Oximetry 95 02/15/18 04:00 02/15/18 06:00 02/15/18 08:00 Temperature 97.9 F Pulse Rate 80 80 80 Respiratory Rate 15 14 Blood Pressure 104/58 L 117/59 L Pulse Oximetry 95 94 L 02/15/18 10:00 02/15/18 10:14 02/15/18 12:00 Temperature 98.2 F Pulse Rate 80 80 80 Respiratory Rate 22 23 Blood Pressure 116/58 L Pulse Oximetry 65 L 94 L 02/15/18 14:00 Temperature Pulse Rate 80 Respiratory Rate Blood Pressure Pulse Oximetry Intake & Output 02/14/18 02/15/18 02/15/18 18:59 06:59 18:59 Intake Total 1060 / 1060 240 / 240 Output Total 325 / 325 Balance 1060 / 1060 -85 / -85 Weight 92 kg Intake: IV 100 / 100 Maxipime Inj 1,000 MG In NS Inj 100 / 100 100 ML @ 200 mls/hr IV.SIG Q24H [facility] Rx#:[id number] Oral 960 / 960 240 / 240 Oral Supplement 0 / 0 Output: Urine 325 / 325 Stool 0 / 0 Urine/Stool Mix 0 / 0 Hemodialysis Amount 0 / 0 Other: # Voids 2 # Incontinent Voids 0 Date of Last Bowel Movement 02/14/18 02/15/18 02/15/18 # Bowel Movements 1 1 # Incontinent Bowel Movements 1 Result Diagrams: 02/15/18 04:17 02/15/18 04:17 Other Results: Microbiology 02/09/18 10:30 Sputum - Expectorated Sputum Gram Stain - Final 02/09/18 10:30 Sputum - Expectorated Sputum Sputum Culture - Final Klebsiella pneumoniae 01/24/18 13:40 Sputum - Expectorated Sputum Gram Stain - Final 01/24/18 13:40 Sputum - Expectorated Sputum Sputum Culture - Final Heavy growth normal respiratory marielos Imaging: ITS Impressions Abdomen X-Ray 01/23/18 23:05 CONCLUSION: 1. Nonobstructive bowel gas pattern. Chest CTA 01/30/18 00:00 CONCLUSION: 1. No evidence of pulmonary embolus. 2. Severe bilateral pulmonary parenchymal opacity with predominance at the dependent portions of the lungs. Difficult diagnosis includes pulmonary edema and infection. 3. Elongated lobulated nodular density in the right midlung following the major fissure likely represents loculated pleural effusion. 4. Enlarged pulmonary arteries suggesting pulmonary arterial hypertension. 5. Enlarged heart and small pericardial effusion. 6. Small left than right pleural effusions. 7. Mildly enlarged mediastinal lymph nodes, likely reactive. Chest X-Ray 02/15/18 06:00 CONCLUSION: Cardiomegaly. Diffuse increased interstitial markings likely related to diffuse processes such as edema. Possible mild right pleural effusion. Objective Remarks: GENERAL: Patient is 72 yo male currently resting in bed on high flow oxygen. SKIN: Warm and dry. HEAD: Normocephalic. EYES: No scleral icterus. No injection or drainage. NECK: Supple, trachea midline. No JVD or lymphadenopathy. CARDIOVASCULAR: Regular rate and rhythm without murmurs, gallops, or rubs. RESPIRATORY: Breath sounds equal bilaterally. No accessory muscle use. Few coarse BS GASTROINTESTINAL: Abdomen soft, non-tender, nondistended. MUSCULOSKELETAL: Trace bilateral lower extremity peripheral edema. Neuro: Awake, alert. Moves all 4 extremities spontaneously. No pertinent amounts. 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 Pain medications as needed. Monitor neuro status. Continue buspirone 5 mg daily CV: Monitor HR and BP keep MAP>65mmHg Status post cardiac cath. Being followed by Dr. Weinberg. s/p ablation and micra placement 02/02/18 due to failure of medical management for rate control Echo showed EF 60-65%, mod- severe pulm HTN 60-70mmHg On Lipitor 80mg qhs, warfarin Pulmo: Wean down oxygen as mari keep sats >92%. Currently on high flow nasal cannula 40 L 80% FiO2 CT chest with no evidence of PE however did show emphysematous changes bilateral lower lobe consolidation changes as well as fluid in interlobar fissure on the right. Pulmonary arteries are enlarged with probable pulmonary hypertension. Continue with Bronchodilators with albuterol/ipratropium aerosols every 4 hours with albuterol aerosols every 2 hours as needed for dyspnea, methylprednisolone succinate 30mg Q12, On budesonide/formoterol 80/4.5 2 puffs twice daily. CXR: Diffuse interstitial disease On sildenafil 30mg TID for pulm HTN Plan for fiberoptic bronchoscopy with pulmonology on Friday GI/liver: P.o. diabetic/renal diet Renal/: Monitor renal function, I/O's, avoid nephrotoxins Renal is following. s/p HD 02/13: 0L removed ID: Off abx s/p Zosyn 01/24- 02/07) 02/09 Sputum: Klebsiella pneumonia. Continue cefepime 2gram IV Q8 Monitor for signs of infections ( Fever, WBC) Endocrine: SSI (high scale) for glycemic control, insulin detemir 5u BID Heme: Monitor CBC, Coags- INR 1.8 today Prophylaxis: Famotidine/SCDs. Anticoagulation with warfarin for 2 mg today . Level 3
--- NOTE | 2018-02-15 15:44 | P.PN ---
Subjective Interval history: alert nad high flow O2 Physical Exam Vital signs: Vital Signs 02/14/18 16:00 02/14/18 16:01 02/14/18 16:24 Temperature 97.9 F Pulse Rate 80 80 80 Respiratory Rate 24 22 24 Blood Pressure 122/60 Pulse Oximetry 96 97 02/14/18 18:00 02/14/18 20:00 02/14/18 20:48 Temperature 97.9 F Pulse Rate 80 80 80 Respiratory Rate 25 H 20 Blood Pressure 101/54 L Pulse Oximetry 94 L 93 L 02/14/18 22:00 02/14/18 23:22 02/15/18 00:00 Temperature 98.3 F Pulse Rate 80 80 80 Respiratory Rate 20 22 Blood Pressure 111/55 L Pulse Oximetry 95 02/15/18 02:00 02/15/18 03:48 02/15/18 04:00 Temperature Pulse Rate 80 80 80 Respiratory Rate 18 15 Blood Pressure 104/58 L Pulse Oximetry 95 02/15/18 06:00 02/15/18 08:00 02/15/18 10:00 Temperature 97.9 F Pulse Rate 80 80 80 Respiratory Rate 14 Blood Pressure 117/59 L Pulse Oximetry 94 L 02/15/18 10:14 02/15/18 12:00 02/15/18 14:00 Temperature 98.2 F Pulse Rate 80 80 80 Respiratory Rate 22 23 Blood Pressure 116/58 L Pulse Oximetry 65 L 94 L 02/15/18 15:10 Temperature Pulse Rate 80 Respiratory Rate 18 Blood Pressure Pulse Oximetry Intake & Output 02/14/18 02/15/18 02/15/18 18:59 06:59 18:59 Intake Total 1060 / 1060 240 / 240 100 / 100 Output Total 325 / 325 Balance 1060 / 1060 -85 / -85 100 / 100 Weight 92 kg Intake: IV 100 / 100 100 / 100 Maxipime Inj 1,000 MG In NS Inj 100 / 100 100 / 100 100 ML @ 200 mls/hr IV.SIG Q24H [facility] Rx#:[id number] Oral 960 / 960 240 / 240 Oral Supplement 0 / 0 Output: Urine 325 / 325 Stool 0 / 0 Urine/Stool Mix 0 / 0 Hemodialysis Amount 0 / 0 Other: # Voids 2 # Incontinent Voids 0 Date of Last Bowel Movement 02/14/18 02/15/18 02/15/18 # Bowel Movements 1 1 # Incontinent Bowel Movements 1 Narrative: GENERAL: Frail, elderly. HEENT: PERRL CARDIOVASCULAR: Paced rhythm. RESPIRATORY: bilateral wheezes, rhonchi GASTROINTESTINAL: Abdomen soft, non-tender, nondistended. Hepatic and splenic margins not palpable. Decreased bowel sounds. MUSCULOSKELETAL: Extremities without clubbing, cyanosis, mild edema. No obvious deformities. Cath site without hematoma. NEUROLOGICAL: Awake and alert. No obvious cranial nerve deficits. Results - Labs CBC & Chem 7: 02/15/18 04:17 02/15/18 04:17 Laboratory Results - last 24 hr 02/14/18 02/14/18 02/15/18 18:07 19:50 04:17 WBC RBC Hgb Hct MCV MCH MCHC RDW Plt Count MPV Prelim Diff (Auto) Neut % (Auto) Lymph % (Auto) Vernon % (Auto) Eos % (Auto) Baso % (Auto) Neut # (Auto) Lymph # (Auto) Vernon # (Auto) Eos # (Auto) Baso # (Auto) WBC Differential Diff Scan Differential Comment Platelet Estimate Platelet Morphology Ovalocytes Acanthocytes (Spur) Keratocytes PT 17.9 H INR 1.8 Sodium Potassium Chloride Carbon Dioxide Anion Gap BUN Creatinine Estimated GFR POC Glucose 292 H 382 H Random Glucose Calcium Phosphorus Magnesium Total Bilirubin AST ALT Alkaline Phosphatase Total Protein Albumin 02/15/18 02/15/18 02/15/18 04:17 04:17 08:00 WBC 10.0 RBC 3.35 L Hgb 9.9 L Hct 29.9 L MCV 89.5 MCH 29.5 MCHC 33.0 RDW 21.6 H Plt Count 74 L MPV 9.9 Prelim Diff (Auto) Slide review pending Neut % (Auto) 95.0 H Lymph % (Auto) 1.9 L Vernon % (Auto) 2.7 Eos % (Auto) 0.0 Baso % (Auto) 0.4 Neut # (Auto) 9.5 H Lymph # (Auto) 0.2 L Vernon # (Auto) 0.3 Eos # (Auto) 0.0 Baso # (Auto) 0.0 WBC Differential . Diff Scan Auto diff confirmed Differential Comment . Platelet Estimate Low L Platelet Morphology Normal Ovalocytes 1+ H Acanthocytes (Spur) 1+ H Keratocytes Occ H PT INR Sodium 136 Potassium 5.0 Chloride 96 L Carbon Dioxide 25.4 Anion Gap 15 BUN 108 H Creatinine 7.22 H Estimated GFR 8 L POC Glucose 167 H Random Glucose 96 D Calcium 8.6 Phosphorus 4.3 Magnesium 2.6 H Total Bilirubin 1.2 H AST 35 ALT 43 Alkaline Phosphatase 109 Total Protein 6.2 L Albumin 2.9 L 02/15/18 12:17 WBC RBC Hgb Hct MCV MCH MCHC RDW Plt Count MPV Prelim Diff (Auto) Neut % (Auto) Lymph % (Auto) Vernon % (Auto) Eos % (Auto) Baso % (Auto) Neut # (Auto) Lymph # (Auto) Vernon # (Auto) Eos # (Auto) Baso # (Auto) WBC Differential Diff Scan Differential Comment Platelet Estimate Platelet Morphology Ovalocytes Acanthocytes (Spur) Keratocytes PT INR Sodium Potassium Chloride Carbon Dioxide Anion Gap BUN Creatinine Estimated GFR POC Glucose 251 H Random Glucose Calcium Phosphorus Magnesium Total Bilirubin AST ALT Alkaline Phosphatase Total Protein Albumin - Imaging Impressions Chest X-Ray 02/15/18 06:00 CONCLUSION: Cardiomegaly. Diffuse increased interstitial markings likely related to diffuse processes such as edema. Possible mild right pleural effusion. Assessment and Plan - Plan RESPIRATORY FAILURE, ENAL FAILURE ? COPD Chest pain CHF POST AV NODE ABLATION PULM HTN PLAN O2 NEEDED BRONCHODILATOR THERAPY INCREASE ACTIVITY taper steroids THERAPY FOR PAH Discussed BX with patient , declined agrees to bronchoscopy, will proceed on Theusday
[2018-02-15] MEDS: Morphine Inj 4 MG/ML Vial IV.PUSH PRN ×2 (18:17→21:42)
--- NOTE | 2018-02-16 04:47 | XR ---
EXAM DATE: 02/16/2018 4:21 AM EDT AGE/SEX: 72 years / Male INDICATIONS: Shortness of breath, possible pulmonary disease. CLINICAL DATA: This is the patient's subsequent encounter. Patient reports that signs and symptoms h ave been present for 1 week and indicates a pain score of 0/10. MEDICAL/SURGICAL HISTORY: Hypertension. Chronic obstructive pulmonary disease. Congestive hea rt failure. A-Fib. None. COMPARISON: [facility] – [place], CHEST 1V SINGLE AP, 02/15/2018. . FINDINGS: A single AP view of the chest demonstrates diffuse bilateral pulmonary infiltrates which are predomin antly interstitial in nature except the bases where there is an intra-alveolar component. The intra-a rticular component the bases is more pronounced than the prior study. Heart size enlarged. Right-side d dialysis catheter noted. Questionable tiny effusions bilaterally. CONCLUSION: Worsening bilateral pulmonary infiltrates. Radiographic pattern suggesting pulmonary edema. Electronically signed by: Reynaldo Dejesus MD 02/16/2018 4:46 AM EDT
[2018-02-16] MEDS: Clotrimazole 10 MG Troche BUCCAL SCH ×5 (04:59→21:12)
[2018-02-16] MEDS: Morphine Inj 4 MG/ML Vial IV.PUSH PRN ×3 (04:59→18:57)
[2018-02-16 05:26] LABS: INR 1.9 Ratio; Prothrombin Time 19.7 sec (9.8-11.6)
[2018-02-16 05:36] LABS: Baso % (Auto) 0.1 % (0.0-2.0); Hematocrit 29.8 % (39.0-51.0); Hemoglobin 9.5 gm/dL (13.0-17.0); Lymph # (Auto) 0.1 th/mm3 (1.0-4.8); Lymph % (Auto) 1.3 % (9.0-44.0); Mean Corpuscular HGB Conc 32.1 % (32.0-36.0); Mean Corpuscular Hemoglobin 28.8 pg (27.0-34.0); Mean Corpuscular Volume 89.9 fL (80.0-100.0); Mean Platelet Volume 10.6 fL (7.0-11.0); Mono # (Auto) 0.3 th/mm3 (0.0-0.9); Mono % (Auto) 2.6 % (0.0-8.0); Platelet Count 73 th/mm3 (150-450); Red Blood Count 3.31 mil/mm3 (4.50-5.90); Red Cell Distribution Width 21.8 % (11.6-17.2); White Blood Count 11.4 th/mm3 (4.0-11.0)
[2018-02-16 05:39] LABS: Alanine Aminotransferase 45 U/L (12-78); Albumin 2.8 g/dL (3.4-5.0); Alkaline Phosphatase 110 U/L (45-117); Anion Gap 14 meq/L (5-15); Aspartate Aminotransferase 34 U/L (15-37); Blood Urea Nitrogen 135 mg/dL (7-18); Calcium 8.6 mg/dL (8.5-10.1); Carbon Dioxide 25.7 meq/L (21.0-32.0); Chloride 97 meq/L (98-107); Glomerular Filtration Rate 6 mL/min (>89); Glucose,Random 97 mg/dL (74-106); Magnesium 2.6 mg/dL (1.5-2.5); Phosphorus 4.8 mg/dL (2.5-4.9); Potassium 5.2 meq/L (3.5-5.1); Sodium 137 meq/L (136-145); Total Protein 6.1 g/dL (6.4-8.2)
[2018-02-16 07:38] LABS: Acanthocytes Occ; Ovalocytes 1+
--- NOTE | 2018-02-16 08:46 | P.PN ---
Subjective Interval history: ALERT NAD HIGH FLOW NASAL o2 HEMOPTYSIS TODAY , DARK RED BLOOD TEASPOON SEVERAL TIMES TODAY Physical Exam Vital signs: Vital Signs 02/15/18 10:00 02/15/18 10:14 02/15/18 12:00 Temperature 98.2 F Pulse Rate 80 80 80 Respiratory Rate 22 23 Blood Pressure 116/58 L Pulse Oximetry 65 L 94 L 02/15/18 14:00 02/15/18 15:10 02/15/18 16:00 Temperature 98.5 F Pulse Rate 80 80 80 Respiratory Rate 18 22 Blood Pressure 129/61 Pulse Oximetry 93 L 02/15/18 18:00 02/15/18 20:00 02/15/18 20:36 Temperature 97.6 F Pulse Rate 80 80 80 Respiratory Rate 29 H 24 Blood Pressure 125/62 Pulse Oximetry 90 L 89 L 02/15/18 22:00 02/15/18 23:55 02/16/18 00:00 Temperature 97.4 F L Pulse Rate 79 79 79 Respiratory Rate 18 27 H Blood Pressure 124/60 Pulse Oximetry 92 L 02/16/18 02:00 02/16/18 04:00 02/16/18 04:34 Temperature 98.0 F Pulse Rate 80 80 Respiratory Rate 33 H Blood Pressure 128/60 Pulse Oximetry 83 L 93 L 02/16/18 06:00 02/16/18 07:34 Temperature Pulse Rate 80 80 Respiratory Rate 27 H Blood Pressure Pulse Oximetry 84 L Intake & Output 02/15/18 02/16/18 02/16/18 18:59 06:59 18:59 Intake Total 460 / 460 240 / 240 Output Total 0 / 0 425 / 425 Balance 460 / 460 -185 / -185 Weight 94 kg Intake: IV 100 / 100 Maxipime Inj 1,000 MG In NS Inj 100 / 100 100 ML @ 200 mls/hr IV.SIG Q24H [facility] Rx#:[id number] Oral 360 / 360 240 / 240 Oral Supplement 0 / 0 Output: Urine 0 / 0 425 / 425 Stool 0 / 0 Urine/Stool Mix 0 / 0 Hemodialysis Amount 0 / 0 Other: # Voids 3 # Incontinent Voids 0 Date of Last Bowel Movement 02/15/18 02/15/18 # Bowel Movements 0 0 # Incontinent Bowel Movements 0 Narrative: GENERAL: Frail, elderly. HEENT: PERRL CARDIOVASCULAR: Paced rhythm. RESPIRATORY: bilateral wheezes, rhonchi GASTROINTESTINAL: Abdomen soft, non-tender, nondistended. Hepatic and splenic margins not palpable. Decreased bowel sounds. MUSCULOSKELETAL: Extremities without clubbing, cyanosis, mild edema. No obvious deformities. Cath site without hematoma. NEUROLOGICAL: Awake and alert. No obvious cranial nerve deficits. Results - Labs CBC & Chem 7: 02/16/18 03:50 02/16/18 03:50 Laboratory Results - last 24 hr 02/15/18 02/15/18 02/15/18 04:17 12:17 17:36 WBC RBC Hgb Hct MCV MCH MCHC RDW Plt Count MPV Prelim Diff (Auto) Neut % (Auto) Lymph % (Auto) Reeves % (Auto) Eos % (Auto) Baso % (Auto) Neut # (Auto) Lymph # (Auto) Reeves # (Auto) Eos # (Auto) Baso # (Auto) WBC Differential . Diff Scan Auto diff confirmed Differential Comment Platelet Estimate Low L Platelet Morphology Normal Ovalocytes 1+ H Acanthocytes (Spur) 1+ H Keratocytes Occ H PT INR Sodium Potassium Chloride Carbon Dioxide Anion Gap BUN Creatinine Estimated GFR POC Glucose 251 H 362 H Random Glucose Calcium Phosphorus Magnesium Total Bilirubin AST ALT Alkaline Phosphatase Total Protein Albumin 02/15/18 02/16/18 02/16/18 19:29 03:50 03:50 WBC 11.4 H RBC 3.31 L Hgb 9.5 L Hct 29.8 L MCV 89.9 MCH 28.8 MCHC 32.1 RDW 21.8 H Plt Count 73 L MPV 10.6 Prelim Diff (Auto) Slide review pending Neut % (Auto) 96.0 H Lymph % (Auto) 1.3 L Reeves % (Auto) 2.6 Eos % (Auto) 0.0 Baso % (Auto) 0.1 Neut # (Auto) 11.0 H Lymph # (Auto) 0.1 L Reeves # (Auto) 0.3 Eos # (Auto) 0.0 Baso # (Auto) 0.0 WBC Differential . Diff Scan Auto diff confirmed Differential Comment . Platelet Estimate Platelet Morphology Ovalocytes 1+ H Acanthocytes (Spur) Occ H Keratocytes PT 19.7 H INR 1.9 Sodium Potassium Chloride Carbon Dioxide Anion Gap BUN Creatinine Estimated GFR POC Glucose 273 H Random Glucose Calcium Phosphorus Magnesium Total Bilirubin AST ALT Alkaline Phosphatase Total Protein Albumin 02/16/18 03:50 WBC RBC Hgb Hct MCV MCH MCHC RDW Plt Count MPV Prelim Diff (Auto) Neut % (Auto) Lymph % (Auto) Reeves % (Auto) Eos % (Auto) Baso % (Auto) Neut # (Auto) Lymph # (Auto) Reeves # (Auto) Eos # (Auto) Baso # (Auto) WBC Differential Diff Scan Differential Comment Platelet Estimate Platelet Morphology Ovalocytes Acanthocytes (Spur) Keratocytes PT INR Sodium 137 Potassium 5.2 H Chloride 97 L Carbon Dioxide 25.7 Anion Gap 14 BUN 135 H Creatinine 8.31 H Estimated GFR 6 L POC Glucose Random Glucose 97 Calcium 8.6 Phosphorus 4.8 Magnesium 2.6 H Total Bilirubin 1.1 H AST 34 ALT 45 Alkaline Phosphatase 110 Total Protein 6.1 L Albumin 2.8 L - Imaging Impressions Chest X-Ray 02/16/18 06:00 CONCLUSION: Worsening bilateral pulmonary infiltrates. Radiographic pattern suggesting pulmonary edema. Assessment and Plan - Plan RESPIRATORY FAILURE, ENAL FAILURE ? COPD Chest pain CHF POST AV NODE ABLATION PULM HTN PLAN O2 NEEDED BRONCHODILATOR THERAPY INCREASE ACTIVITY taper steroids THERAPY FOR PAH Discussed BX with patient , declined agrees to bronchoscopy, will proceed AM
--- NOTE | 2018-02-16 12:14 | P.PNNP ---
Subjective Interval history: On 100% FiO2. There is discussion about intubation, trach placement, and bronchoscopy. <Jyoti Ceron - Last Filed: 02/16/18 12:10> Physical Exam Vital signs: Vital Signs 02/15/18 14:00 02/15/18 15:10 02/15/18 16:00 Temperature 98.5 F Pulse Rate 80 80 80 Respiratory Rate 18 22 Blood Pressure 129/61 Pulse Oximetry 93 L 02/15/18 18:00 02/15/18 20:00 02/15/18 20:36 Temperature 97.6 F Pulse Rate 80 80 80 Respiratory Rate 29 H 24 Blood Pressure 125/62 Pulse Oximetry 90 L 89 L 02/15/18 22:00 02/15/18 23:55 02/16/18 00:00 Temperature 97.4 F L Pulse Rate 79 79 79 Respiratory Rate 18 27 H Blood Pressure 124/60 Pulse Oximetry 92 L 02/16/18 02:00 02/16/18 04:00 02/16/18 04:34 Temperature 98.0 F Pulse Rate 80 80 Respiratory Rate 33 H Blood Pressure 128/60 Pulse Oximetry 83 L 93 L 02/16/18 06:00 02/16/18 07:34 02/16/18 08:00 Temperature Pulse Rate 80 80 80 Respiratory Rate 27 H 23 Blood Pressure 121/58 L Pulse Oximetry 84 L 83 L 02/16/18 08:45 02/16/18 09:00 02/16/18 09:15 Temperature Pulse Rate 80 80 80 Respiratory Rate 18 15 28 H Blood Pressure 114/53 L 114/54 L 112/56 L Pulse Oximetry 90 L 90 L 86 L 02/16/18 09:26 02/16/18 09:30 02/16/18 09:45 Temperature Pulse Rate 80 80 Respiratory Rate 31 H 31 H Blood Pressure 109/53 L 100/47 L Pulse Oximetry 65 L 85 L 80 L 02/16/18 10:00 02/16/18 10:15 02/16/18 10:30 Temperature Pulse Rate 80 80 80 Respiratory Rate 26 H 29 H 19 Blood Pressure 95/54 L 100/52 L 95/51 L Pulse Oximetry 84 L 87 L 89 L 02/16/18 10:45 02/16/18 11:00 02/16/18 11:03 Temperature Pulse Rate 80 80 80 Respiratory Rate 35 H 31 H 22 Blood Pressure 85/49 L 82/48 L 92/52 L Pulse Oximetry 92 L 91 L 90 L 02/16/18 11:15 02/16/18 11:30 Temperature Pulse Rate 80 80 Respiratory Rate 22 23 Blood Pressure 91/48 L 99/51 L Pulse Oximetry 96 98 Intake & Output 02/15/18 02/16/18 02/16/18 18:59 06:59 18:59 Intake Total 460 / 460 240 / 240 Output Total 0 / 0 425 / 425 1200 / 1200 Balance 460 / 460 -185 / -185 -1200 / -1200 Weight 94 kg Intake: IV 100 / 100 Maxipime Inj 1,000 MG In NS Inj 100 / 100 100 ML @ 200 mls/hr IV.SIG Q24H [facility] Rx#:[id number] Oral 360 / 360 240 / 240 Oral Supplement 0 / 0 Output: Urine 0 / 0 425 / 425 Stool 0 / 0 Urine/Stool Mix 0 / 0 Hemodialysis Amount 0 / 0 1200 / 1200 Other: # Voids 3 # Incontinent Voids 0 Date of Last Bowel Movement 02/15/18 02/15/18 02/15/18 # Bowel Movements 0 0 # Incontinent Bowel Movements 0 - Constitutional no acute distress, thin, chronically ill appearing - Routine HEENT Exam Head: Present: normocephalic - Routine Neck Exam Present: supple, full ROM - Routine Respiratory Exam Present: accessory muscle use, rales, diminished air movement - Routine Cardiovascular Exam Present: RRR, S1, S2 - Routine Abdominal Exam Present: soft, normoactive bowel sounds - Routine Extremities Exam Present: full ROM, pulses intact. Absent: edema - Routine Skin Exam Present: intact, warm - Routine Neurological Exam Present: alert, oriented X3, CN II-XII intact - Detailed Neurological Exam: Coma Scale Eye Opening: Spontaneous Verbal Response: Oriented Motor Response: Obey commands [place] Coma Scale Total: 15 - Routine Psychiatric Exam Present: normal affect, normal thought process <Jyoti Ceron - Last Filed: 02/16/18 12:10> Vital signs: Vital Signs 02/16/18 11:15 02/16/18 11:30 02/16/18 12:00 Temperature Pulse Rate 80 80 80 Respiratory Rate 22 23 30 H Blood Pressure 91/48 L 99/51 L 87/47 L Pulse Oximetry 96 98 96 02/16/18 12:15 02/16/18 12:30 02/16/18 12:45 Temperature Pulse Rate 80 80 80 Respiratory Rate 20 15 21 Blood Pressure 85/49 L 88/50 L 90/50 L Pulse Oximetry 97 98 94 L 02/16/18 13:00 02/16/18 13:15 02/16/18 13:30 Temperature Pulse Rate 80 80 80 Respiratory Rate 21 26 H 22 Blood Pressure 94/51 L 91/53 L 96/53 L Pulse Oximetry 94 L 94 L 94 L 02/16/18 13:45 02/16/18 14:00 02/16/18 14:15 Temperature Pulse Rate 80 80 80 Respiratory Rate 19 16 35 H Blood Pressure 90/44 L 92/50 L 96/53 L Pulse Oximetry 98 97 93 L 02/16/18 14:30 02/16/18 14:46 02/16/18 15:00 Temperature Pulse Rate 80 80 80 Respiratory Rate 29 H 25 H 37 H Blood Pressure 96/52 L 88/44 L 86/48 L Pulse Oximetry 91 L 97 97 02/16/18 15:15 02/16/18 15:30 02/16/18 15:45 Temperature Pulse Rate 80 80 80 Respiratory Rate 22 25 H 27 H Blood Pressure 89/50 L 83/48 L 84/48 L Pulse Oximetry 96 99 94 L 02/16/18 16:00 02/16/18 16:59 02/16/18 18:00 Temperature Pulse Rate 80 80 80 Respiratory Rate 34 H 18 Blood Pressure 88/48 L Pulse Oximetry 92 L 02/16/18 18:59 02/16/18 19:05 02/16/18 20:00 Temperature 99.1 F Pulse Rate 80 Respiratory Rate 16 16 Blood Pressure 95/41 L Pulse Oximetry 90 L 98 02/16/18 21:15 02/16/18 21:30 02/16/18 21:31 Temperature Pulse Rate 80 80 80 Respiratory Rate 23 33 H 24 Blood Pressure 91/51 L 77/36 L 100/53 L Pulse Oximetry 96 90 L 91 L 02/16/18 21:45 02/16/18 22:00 02/16/18 22:15 Temperature Pulse Rate 80 80 80 Respiratory Rate 29 H 21 24 Blood Pressure 102/50 L 105/52 L 103/52 L Pulse Oximetry 81 L 95 96 02/16/18 22:30 02/16/18 22:45 02/16/18 23:00 Temperature Pulse Rate 80 80 80 Respiratory Rate 38 H 27 H 25 H Blood Pressure 100/54 L 99/54 L 103/54 L Pulse Oximetry 91 L 95 97 02/16/18 23:15 02/16/18 23:30 02/16/18 23:45 Temperature Pulse Rate 80 80 80 Respiratory Rate 29 H 32 H 34 H Blood Pressure 103/53 L 117/56 L 115/56 L Pulse Oximetry 91 L 93 L 94 L 02/17/18 00:00 02/17/18 00:15 02/17/18 00:30 Temperature 98.3 F Pulse Rate 80 80 80 Respiratory Rate 25 H 25 H 12 Blood Pressure 101/55 L 101/52 L 113/54 L Pulse Oximetry 95 93 L 100 02/17/18 00:45 02/17/18 01:00 02/17/18 01:15 Temperature Pulse Rate 80 80 80 Respiratory Rate 19 13 13 Blood Pressure 97/56 L 104/55 L 100/51 L Pulse Oximetry 100 100 100 02/17/18 01:30 02/17/18 01:45 02/17/18 02:00 Temperature Pulse Rate 80 80 80 Respiratory Rate 14 13 13 Blood Pressure 104/53 L 108/54 L 92/51 L Pulse Oximetry 99 100 100 02/17/18 02:15 02/17/18 02:30 02/17/18 02:45 Temperature Pulse Rate 80 80 80 Respiratory Rate 13 13 24 Blood Pressure 89/51 L 97/50 L 98/53 L Pulse Oximetry 100 100 81 L 02/17/18 03:00 02/17/18 03:15 02/17/18 03:30 Temperature Pulse Rate 80 80 80 Respiratory Rate 38 H 46 H 28 H Blood Pressure 118/56 L 106/54 L 105/56 L Pulse Oximetry 99 100 100 02/17/18 03:45 02/17/18 04:00 02/17/18 04:15 Temperature Pulse Rate 80 80 80 Respiratory Rate 19 20 25 H Blood Pressure 100/54 L 102/53 L 102/57 L Pulse Oximetry 100 72 L 81 L 02/17/18 04:30 02/17/18 04:45 02/17/18 05:00 Temperature Pulse Rate 80 80 80 Respiratory Rate 36 H 20 17 Blood Pressure 93/54 L 98/53 L 109/56 L Pulse Oximetry 81 L 85 L 90 L 02/17/18 05:15 02/17/18 05:29 02/17/18 05:31 Temperature Pulse Rate 80 80 Respiratory Rate 22 18 Blood Pressure 99/51 L 113/56 L Pulse Oximetry 95 89 L 90 L 02/17/18 05:45 02/17/18 06:00 02/17/18 06:17 Temperature Pulse Rate 80 80 80 Respiratory Rate 27 H 25 H 34 H Blood Pressure 126/61 116/54 L 113/56 L Pulse Oximetry 90 L 93 L 92 L 02/17/18 06:30 02/17/18 06:45 02/17/18 08:20 Temperature Pulse Rate 80 80 Respiratory Rate 11 L 26 H Blood Pressure 118/58 L 106/54 L Pulse Oximetry 96 94 L 100 02/17/18 09:20 02/17/18 10:10 Temperature Pulse Rate Respiratory Rate 25 H Blood Pressure Pulse Oximetry 100 100 Intake & Output 02/16/18 02/17/18 02/17/18 18:59 06:59 18:59 Intake Total 700 / 700 600 / 600 Output Total 1200 / 1200 Balance -500 / -500 600 / 600 Weight 94 kg Intake: IV 100 / 100 Maxipime Inj 1,000 MG In NS Inj 100 / 100 100 ML @ 200 mls/hr IV.SIG Q24H [facility] Rx#:[id number] Oral 600 / 600 600 / 600 Output: Hemodialysis Amount 1200 / 1200 Other: Date of Last Bowel Movement 02/15/18 02/17/18 <Eduardo Salvador - Last Filed: 02/17/18 11:04> Assessment and Plan - Assessment (1) ESRD (end stage renal disease) on dialysis Code(s): N18.6 - End stage renal disease; Z99.2 - Dependence on renal dialysis Status: Acute Plan: HD support continues MWF. Seen during dialysis today on a 2K, 350 BFR, ogal 1L. Minimal fluid removal due to hypotension. Monitor electrolytes intermittently. Avoid IVF administration. Protect left arm from procedures, has new AV access that is not mature yet. Will need to follow with vascular (Dr. Hutson) at a later date. Appears to be maturing well. PermCath in place for HD use. On calcium acetate with meals. High protein diet with Supplements ordered. He has been losing weight, needs continued nutritional support. (2) Hypoxia Code(s): R09.02 - Hypoxemia Status: Acute Plan: He is on high flow oxygen, now at 100%. Pulmonary following. Plan for intubation and bronch possibly tomorrow. He may require tracheostomy placement. On sildenafil for pulmonary hypertension. (3) Atrial fibrillation with RVR Code(s): I48.91 - Unspecified atrial fibrillation Status: Acute Plan: Improved, s/p AV gilbert ablation with pacemaker placement. Midodrine is ordered TID for hypotension. Cardiology following. Appreciate recommendations. (4) CHF (congestive heart failure) Code(s): I50.9 - Heart failure, unspecified Status: Acute Qualifiers: Heart failure type: unspecified Heart failure chronicity: unspecified Qualified Code(s): I50.9 - Heart failure, unspecified Plan: Stable. EF noted to be around 60%. Repeat echo shows no change in EF. He has mild aortic regurgitation. Fluid removal with dialysis as tolerated. (5) Anemia in CKD (chronic kidney disease) Code(s): N18.9 - Chronic kidney disease, unspecified; D63.1 - Anemia in chronic kidney disease Status: Acute Plan: On Epogen with dialysis. Hemoglobin is acceptable. <Jyoti Ceron - Last Filed: 02/16/18 12:10> - Assessment (1) ESRD (end stage renal disease) on dialysis Code(s): N18.6 - End stage renal disease; Z99.2 - Dependence on renal dialysis Status: Acute (2) Hypoxia Code(s): R09.02 - Hypoxemia Status: Acute (3) Atrial fibrillation with RVR Code(s): I48.91 - Unspecified atrial fibrillation Status: Acute (4) CHF (congestive heart failure) Code(s): I50.9 - Heart failure, unspecified Status: Acute Qualifiers: Heart failure type: unspecified Heart failure chronicity: unspecified Qualified Code(s): I50.9 - Heart failure, unspecified (5) Anemia in CKD (chronic kidney disease) Code(s): N18.9 - Chronic kidney disease, unspecified; D63.1 - Anemia in chronic kidney disease Status: Acute - Attending Attestation patient was seen and examined. Plans for bronchoscopy noted. Dialysis MWF. Prognosis is guarded. <Eduardo Salvador - Last Filed: 02/17/18 11:04>
--- NOTE | 2018-02-16 13:12 | P.PNCA ---
Subjective Interval history: alert in nad Physical Exam Vital signs: Vital Signs 02/15/18 14:00 02/15/18 15:10 02/15/18 16:00 Temperature 98.5 F Pulse Rate 80 80 80 Respiratory Rate 18 22 Blood Pressure 129/61 Pulse Oximetry 93 L 02/15/18 18:00 02/15/18 20:00 02/15/18 20:36 Temperature 97.6 F Pulse Rate 80 80 80 Respiratory Rate 29 H 24 Blood Pressure 125/62 Pulse Oximetry 90 L 89 L 02/15/18 22:00 02/15/18 23:55 02/16/18 00:00 Temperature 97.4 F L Pulse Rate 79 79 79 Respiratory Rate 18 27 H Blood Pressure 124/60 Pulse Oximetry 92 L 02/16/18 02:00 02/16/18 04:00 02/16/18 04:34 Temperature 98.0 F Pulse Rate 80 80 Respiratory Rate 33 H Blood Pressure 128/60 Pulse Oximetry 83 L 93 L 02/16/18 06:00 02/16/18 07:34 02/16/18 08:00 Temperature Pulse Rate 80 80 80 Respiratory Rate 27 H 23 Blood Pressure 121/58 L Pulse Oximetry 84 L 83 L 02/16/18 08:45 02/16/18 09:00 02/16/18 09:15 Temperature Pulse Rate 80 80 80 Respiratory Rate 18 15 28 H Blood Pressure 114/53 L 114/54 L 112/56 L Pulse Oximetry 90 L 90 L 86 L 02/16/18 09:26 02/16/18 09:30 02/16/18 09:45 Temperature Pulse Rate 80 80 Respiratory Rate 31 H 31 H Blood Pressure 109/53 L 100/47 L Pulse Oximetry 65 L 85 L 80 L 02/16/18 10:00 02/16/18 10:15 02/16/18 10:30 Temperature Pulse Rate 80 80 80 Respiratory Rate 26 H 29 H 19 Blood Pressure 95/54 L 100/52 L 95/51 L Pulse Oximetry 84 L 87 L 89 L 02/16/18 10:45 02/16/18 11:00 02/16/18 11:03 Temperature Pulse Rate 80 80 80 Respiratory Rate 35 H 31 H 22 Blood Pressure 85/49 L 82/48 L 92/52 L Pulse Oximetry 92 L 91 L 90 L 02/16/18 11:15 02/16/18 11:30 Temperature Pulse Rate 80 80 Respiratory Rate 22 23 Blood Pressure 91/48 L 99/51 L Pulse Oximetry 96 98 Intake & Output 02/15/18 02/16/18 02/16/18 18:59 06:59 18:59 Intake Total 460 / 460 240 / 240 Output Total 0 / 0 425 / 425 1200 / 1200 Balance 460 / 460 -185 / -185 -1200 / -1200 Weight 94 kg Intake: IV 100 / 100 Maxipime Inj 1,000 MG In NS Inj 100 / 100 100 ML @ 200 mls/hr IV.SIG Q24H PEDRO Rx#:[id number] Oral 360 / 360 240 / 240 Oral Supplement 0 / 0 Output: Urine 0 / 0 425 / 425 Stool 0 / 0 Urine/Stool Mix 0 / 0 Hemodialysis Amount 0 / 0 1200 / 1200 Other: # Voids 3 # Incontinent Voids 0 Date of Last Bowel Movement 02/15/18 02/15/18 02/15/18 # Bowel Movements 0 0 # Incontinent Bowel Movements 0 Assessment and Plan - Assessment (1) Atrial fibrillation with rapid ventricular response Code(s): I48.91 - Unspecified atrial fibrillation Status: Acute (2) CHF (congestive heart failure) Code(s): I50.9 - Heart failure, unspecified Status: Acute (3) Chronic kidney disease with end stage renal failure on dialysis Code(s): N18.6 - End stage renal disease; Z99.2 - Dependence on renal dialysis Status: Acute (4) Atrial fibrillation with RVR Code(s): I48.91 - Unspecified atrial fibrillation Status: Acute (5) ESRD (end stage renal disease) on dialysis Code(s): N18.6 - End stage renal disease; Z99.2 - Dependence on renal dialysis Status: Acute - Plan 1.) Afib with rvr - s/p ablation and micra placement 02/02/18 due to failure of medical management for rate control, d/w patient, inr therapeutic, hgb stable, rate controlled, inr=1.9 and hgb = 9.8 02/16/18, low risk to hold coumadin x 7 days for bronchoscopy with biopsy, d/w nurse at bedside 2.) CAD - continue, lipitor, low risk to hold coumadin to hold for bronchoscopy , has hemoptyis which is improving, f/u inr and cbc in am (2) CHF (congestive heart failure) Qualifiers: Heart failure type: unspecified Heart failure chronicity: unspecified Qualified Code(s): I50.9 - Heart failure, unspecified
[2018-02-16] MEDS: Insulin NovoLIN Regular Correctional Sugar Inj SQ SCH ×3 (13:39→22:55)
[2018-02-16] MEDS: Calcium Acetate 667 MG Capsule PO SCH ×3 (13:39→18:44)
--- NOTE | 2018-02-16 13:53 | P.PNCC ---
Subjective Subjective Remarks/Hospital Course: This is a 72yM with history of ESRD on HD who was recently admitted last month for supraventricular tachycardia. It appears from the records that normal sinus rhythm was restored prior to discharge home. He re-presented to the hospital with atrial fibrillation with rapid ventricular response which has been poorly responsive to esmolol infusion. It is noted that there is still a shortage of diltiazem infusions, so none is available to place the patient on. Dr. Waters with cardiology was consulted, as was Dr. Weinberg. The patient has also had hypotension during this hospital stay with most blood pressure readings between 80-100 systolic. This morning, Bystolic was started and was given together with amiodarone 400mg and metoprolol 25mg po. Approximately 2 hours after this, his blood pressure dropped into the 60s and 70s systolic. I was consulted by Dr. Wilcox to evaluate and manage his hemodynamics in the setting of poorly-controlled atrial fibrillation and hypotension. The patient does complain of light-headedness and a little chest discomfort which is new since his blood pressure has dropped into the 70s. He denies any other complaints and tolerated breakfast this AM. ROS otherwise negative. troponins have been serially negative this admission. I performed bedside critical care echocardiography and compared this to images obtained from last hospital admission on 11/2017. Given the poorly controlled nature of the patient's rate, wall motion and accurate ejection fraction are difficult to assess with accuracy. It does appear that the patient has relatively preserved EF and at most only mildly depressed LVEF. Aortic valve is sclerotic but appears unchanged from prior echo which calculated the valve area at ~2cm. no pericardial effusion. IVC is dilated around 2cm without respiratory variation. heart rate on my evaluation is 121. 8/2: Critical care reconsulted by Dr. Weinberg for worsening respiratory failure. Patient dropped O2 sats to 84% on 6 L nasal cannula. When I evaluated patient he was resting in bed. Placed him on high flow nasal cannula 30 L/min 60% FiO2 with which his O2 sats came up to 90%. 01/30: Remains on high flow nasal cannula. CT chest negative for PE shows consolidation bilateral lower lobes and a loculated effusion on the right. Defer to pulmonary regarding further recommendations. 01/31: Remains on high flow nasal cannula. Being dialyzed currently. On 30 L/ min 60% FiO2. O2 sats 96%. Feels that he is breathing a little better. 02/01, 02/02: On high flow nasal cannula at 20 L/min 50% FiO2. Shortness of breath gradually improving. 02/03: On high flow nasal cannula 20 L/min 60% FiO2. Underwent mitral implantation and AV gilbert ablation yesterday by Dr. Weinberg. Sitting up in bed today. Appears comfortable not in any acute distress. 02/04 Patient 02/04 Patient is awake and alert on high flow oxygen 25L with 70% FIO2> Afebrile. For HD today 02/05 No events overnight. s/p HD yesterday with removal 5L. Afebrile. On 25L with FIO2 down to 50% 02/06 Patient remains on high flow oxygen with 25L 55%FIO2. Afebrile. 02/07 Patient s/p HD yesterday with removal 4.5L. Remains on high flow oxygen 25L with 50% FIO2. Afebrile. 02/08 Patient s/p HD yesterday with removal 3L. On high flow oxygen. Afebrile. 02/09 Patient remains on high flow oxygen 25L with 55% FIO2. Afebrile. For HD today 02/10 Patient is awake and alert. s/p HD yesterday with removal 3L. On 30L with 60% FIO2. Afebrile. 02/11 Patient is n 30L with 55% FIO2. Afebrile. 02/12: Patient remains on high flow nasal cannula. Very tired. Afebrile. Tolerating diet. 02/13: Hemodialysis is remained level. Unable to take fluid off due to hypotension. Remains on high flow nasal cannula 30 L 60% FiO2. Tolerating diet. Weak. 02/14: Afebrile. Remains on high flow nasal cannula at 35 L 60%. Plan for bronchoscopy with Dr. Moore on Friday. 02/15: Afebrile. Disconnect oxygen desaturation. Currently on high flow nasal cannula 40 L at 80%. Will recheck chest x-ray in a.m. Hemoptysis present but not as copious as before previously. SUBJECTIVE: 02/16: Worsening O2 requirements over the night, currently on FiO2 of 1 45 L/min high flow nasal cannula. Patient remains awake and conversant, still with some hemoptysis. Bronchoscopy scheduled for Friday. T-max of 98.5. Objective Vital Signs / I&O: Vital Signs 02/15/18 14:00 02/15/18 15:10 02/15/18 16:00 Temperature 98.5 F Pulse Rate 80 80 80 Respiratory Rate 18 22 Blood Pressure 129/61 Pulse Oximetry 93 L 02/15/18 18:00 02/15/18 20:00 02/15/18 20:36 Temperature 97.6 F Pulse Rate 80 80 80 Respiratory Rate 29 H 24 Blood Pressure 125/62 Pulse Oximetry 90 L 89 L 02/15/18 22:00 02/15/18 23:55 02/16/18 00:00 Temperature 97.4 F L Pulse Rate 79 79 79 Respiratory Rate 18 27 H Blood Pressure 124/60 Pulse Oximetry 92 L 02/16/18 02:00 02/16/18 04:00 02/16/18 04:34 Temperature 98.0 F Pulse Rate 80 80 Respiratory Rate 33 H Blood Pressure 128/60 Pulse Oximetry 83 L 93 L 02/16/18 06:00 02/16/18 07:34 02/16/18 08:00 Temperature Pulse Rate 80 80 80 Respiratory Rate 27 H 23 Blood Pressure 121/58 L Pulse Oximetry 84 L 83 L 02/16/18 08:45 02/16/18 09:00 02/16/18 09:15 Temperature Pulse Rate 80 80 80 Respiratory Rate 18 15 28 H Blood Pressure 114/53 L 114/54 L 112/56 L Pulse Oximetry 90 L 90 L 86 L 02/16/18 09:26 02/16/18 09:30 02/16/18 09:45 Temperature Pulse Rate 80 80 Respiratory Rate 31 H 31 H Blood Pressure 109/53 L 100/47 L Pulse Oximetry 65 L 85 L 80 L 02/16/18 10:00 02/16/18 10:15 02/16/18 10:30 Temperature Pulse Rate 80 80 80 Respiratory Rate 26 H 29 H 19 Blood Pressure 95/54 L 100/52 L 95/51 L Pulse Oximetry 84 L 87 L 89 L 02/16/18 10:45 02/16/18 11:00 02/16/18 11:03 Temperature Pulse Rate 80 80 80 Respiratory Rate 35 H 31 H 22 Blood Pressure 85/49 L 82/48 L 92/52 L Pulse Oximetry 92 L 91 L 90 L 02/16/18 11:15 02/16/18 11:30 Temperature Pulse Rate 80 80 Respiratory Rate 22 23 Blood Pressure 91/48 L 99/51 L Pulse Oximetry 96 98 Intake & Output 02/15/18 02/16/18 02/16/18 18:59 06:59 18:59 Intake Total 460 / 460 240 / 240 Output Total 0 / 0 425 / 425 1200 / 1200 Balance 460 / 460 -185 / -185 -1200 / -1200 Weight 94 kg Intake: IV 100 / 100 Maxipime Inj 1,000 MG In NS Inj 100 / 100 100 ML @ 200 mls/hr IV.SIG Q24H PEDRO Rx#:[id number] Oral 360 / 360 240 / 240 Oral Supplement 0 / 0 Output: Urine 0 / 0 425 / 425 Stool 0 / 0 Urine/Stool Mix 0 / 0 Hemodialysis Amount 0 / 0 1200 / 1200 Other: # Voids 3 # Incontinent Voids 0 Date of Last Bowel Movement 02/15/18 02/15/18 02/15/18 # Bowel Movements 0 0 # Incontinent Bowel Movements 0 Result Diagrams: 02/16/18 03:50 02/16/18 03:50 Objective Remarks: GENERAL: Elderly gentleman, awake, ill-appearing. SKIN: Warm and dry. HEAD: Normocephalic. EYES: Pupils are equal and reactive. Sclerae are anicteric. No injection or drainage. NECK: Supple, trachea midline. No JVD or lymphadenopathy. No carotid bruit. CARDIOVASCULAR: Regular S1 and S2 without murmurs, gallops or rubs. RESPIRATORY: Coarse breath sounds bilateral. No wheezes. Good air entry. GASTROINTESTINAL: Abdomen soft, non-tender, nondistended. No hepatomegaly, no splenomegaly. MUSCULOSKELETAL: Trace bilateral lower extremity peripheral edema. NEURO: Awake, alert and oriented. Moves all 4 extremities spontaneously. 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 Pain medications as needed. Monitor neuro status. Continue buspirone 5 mg daily CV: Status post cardiac cath. Being followed by Dr. Weinberg. s/p ablation and micra placement 02/02/18 due to failure of medical management for rate control Echo showed EF 60-65%, mod- severe pulm HTN 60-70mmHg On Lipitor 80mg qhs and warfarin Pulmo: Continue high flow nasal cannula. Keep flow at 45 L/min and titrate down FiO2 as tolerated to keep SPO2 above 90% CT chest with no evidence of PE however did show emphysematous changes bilateral lower lobe consolidation changes as well as fluid in interlobar fissure on the right. Pulmonary arteries are enlarged with probable pulmonary hypertension. Continue with Bronchodilators with albuterol/ipratropium aerosols every 4 hours with albuterol aerosols every 2 hours as needed for dyspnea Methylprednisolone succinate 30mg Q12 On budesonide/formoterol 80/4.5 2 puffs twice daily. CXR: Diffuse interstitial disease On sildenafil 30mg TID for pulm HTN Plan for fiberoptic bronchoscopy with pulmonology on Friday Discussed in detail with patient regarding worsening oxygenation and possibility of requiring endotracheal intubation GI/liver: P.o. diabetic/renal diet Renal/: Monitor renal function, I/O's, avoid nephrotoxins Renal is following. s/p HD today ID: s/p Zosyn (01/24- 02/07) 02/09 Sputum: Klebsiella pneumonia. Continue cefepime 2gram IV Q8 Monitor for signs of infections ( Fever, WBC) Endocrine: SSI (high scale) for glycemic control, insulin detemir 5u BID Heme: Monitor CBC, Coags- INR 1.9 today Prophylaxis: Famotidine/SCDs. Anticoagulation with warfarin for 2 mg today . Level 3 follow-up Discussed in detail with patient and Mona -daughter, over the phone regarding patient's worsening O2 requirements and possible need for endotracheal intubation and mechanical ventilation.
[2018-02-16] MEDS: Senna/Docusate Sodium 8.6/50 MG Tablet PO SCH ×2 (13:57→21:12)
[2018-02-16] MEDS: Budesonide-Formoterol 160/4.5 MCG 6 GM Inhaler INH SCH ×2 (13:57→22:56)
[2018-02-16] MEDS: Insulin Detemir Inj 1,000 UNIT/10 ML Vial SQ SCH ×2 (13:57→21:13)
[2018-02-16] MEDS: MethylPREDNISolone Sod Succinate Inj 40 MG/ML Vial IV.PUSH SCH ×2 (14:03→21:11)
--- NOTE | 2018-02-16 16:51 | P.PNPAL ---
Reason for Visit Reason for visit: a. To assist with evaluation and management of symptoms including: Dyspnea, anxiety b. To assist medical decision maker(s) with: better understanding of current medical conditions; weighing benefits/burdens of medical treatment options; making medical treatment decisions. Subjective Subjective/Interval History: Patient seen today for follow-up on symptom management of dyspnea, anxiety and goals of medical care. Patient is now on 100% FiO2 via high flow oxygen for the prior 24 hours. He continues to be visibly dyspneic pursed lip breathing and tachypnea after speaking a few sentences. He is at elevated risk for reintubation. This has been discussed with both patient and his daughter, Dinorah, who is his primary decision maker, at the patient's request. Pulmonary is following and planning on bronchoscopy tomorrow. Patient had initially declined biopsy as he had a previous biopsy necessitating chest tube placement but when reeducated as to the internal nature of the biopsy, after discussion with his daughter, he agreed to have the biopsy completed during the bronchoscopy. Consent to the procedure was witnessed by the nurse, Lora and myself. He becomes very anxious with the dyspnea and wants his family around him as much as possible. Unfortunately he decompensates with conversation. He is receiving Ativan and morphine as needed for treatment of dyspnea and anxiety. 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 . Family/Friend Interactions: Spoke with the patient's , Shyla, and his sister, Lashay, and updated them as to medical findings and plans. They agreed to go forward with any measures which offer him some recovery. In my previous discussions with patient, he himself has specified very aggressive goals and would accept reintubation. I also spoke with his daughter, Dinorah, by telephone and advised her that given his maximum use of oxygen and continuing decline, he will likely not be able to be extubated post bronchoscopy. I also made her aware that given his current fragile respiratory status he is at elevated risk for emergent intubation prior to the scheduled bronchoscopy. As she has been trained as a respiratory therapist, she is aware of the risk and would still be willing to proceed at this time. All questions have been answered best of my ability at this time. . Advance Directives Health Care Surrogate: Copy in medical record Advance Directives Date on File: 02/02/18 Health Care Surrogate Name and Number: daughter Ms. Greer Objective Vital Signs: Vital Signs 02/15/18 18:00 02/15/18 20:00 02/15/18 20:36 Temperature 97.6 F Pulse Rate 80 80 80 Respiratory Rate 29 H 24 Blood Pressure 125/62 Pulse Oximetry 90 L 89 L 02/15/18 22:00 02/15/18 23:55 02/16/18 00:00 Temperature 97.4 F L Pulse Rate 79 79 79 Respiratory Rate 18 27 H Blood Pressure 124/60 Pulse Oximetry 92 L 02/16/18 02:00 02/16/18 04:00 02/16/18 04:34 Temperature 98.0 F Pulse Rate 80 80 Respiratory Rate 33 H Blood Pressure 128/60 Pulse Oximetry 83 L 93 L 02/16/18 06:00 02/16/18 07:34 02/16/18 08:00 Temperature Pulse Rate 80 80 80 Respiratory Rate 27 H 23 Blood Pressure 121/58 L Pulse Oximetry 84 L 83 L 02/16/18 08:45 02/16/18 09:00 02/16/18 09:15 Temperature Pulse Rate 80 80 80 Respiratory Rate 18 15 28 H Blood Pressure 114/53 L 114/54 L 112/56 L Pulse Oximetry 90 L 90 L 86 L 02/16/18 09:26 02/16/18 09:30 02/16/18 09:45 Temperature Pulse Rate 80 80 Respiratory Rate 31 H 31 H Blood Pressure 109/53 L 100/47 L Pulse Oximetry 65 L 85 L 80 L 02/16/18 10:00 02/16/18 10:15 02/16/18 10:30 Temperature Pulse Rate 80 80 80 Respiratory Rate 26 H 29 H 19 Blood Pressure 95/54 L 100/52 L 95/51 L Pulse Oximetry 84 L 87 L 89 L 02/16/18 10:45 02/16/18 11:00 02/16/18 11:03 Temperature Pulse Rate 80 80 80 Respiratory Rate 35 H 31 H 22 Blood Pressure 85/49 L 82/48 L 92/52 L Pulse Oximetry 92 L 91 L 90 L 02/16/18 11:15 02/16/18 11:30 Temperature Pulse Rate 80 80 Respiratory Rate 22 23 Blood Pressure 91/48 L 99/51 L Pulse Oximetry 96 98 Intake & Output 02/15/18 02/16/18 02/16/18 18:59 06:59 18:59 Intake Total 460 / 460 240 / 240 Output Total 0 / 0 425 / 425 1200 / 1200 Balance 460 / 460 -185 / -185 -1200 / -1200 Weight 207 lb 3.752 oz Intake: IV 100 / 100 Maxipime Inj 1,000 MG In NS Inj 100 / 100 100 ML @ 200 mls/hr IV.SIG Q24H PEDRO Rx#:[id number] Oral 360 / 360 240 / 240 Oral Supplement 0 / 0 Output: Urine 0 / 0 425 / 425 Stool 0 / 0 Urine/Stool Mix 0 / 0 Hemodialysis Amount 0 / 0 1200 / 1200 Other: # Voids 3 # Incontinent Voids 0 Date of Last Bowel Movement 02/15/18 02/15/18 02/15/18 # Bowel Movements 0 0 # Incontinent Bowel Movements 0 Physical Exam: CONSTITUTIONAL/GENERAL: This is an adequately nourished patient, appears weak, in no apparent distress. NECK: Trachea midline. Supple, nontender. No palpable thyroid enlargement or nodularity. CARDIOVASCULAR: regular rhythm, paced rate 80, 2/6 systolic ejection murmur, no rub no gallop. RESPIRATORY/CHEST: Diminished breath sounds with bibasilar crackles, some accessory muscle use noted today, No rhonchi or wheezes. Tachypneic with conversation with pursed lip breathing. GASTROINTESTINAL: Abdomen soft, non-tender, nondistended. No hepato-splenomegaly , or palpable masses. No guarding. Bowel sounds present. MUSCULOSKELETAL: Extremities without clubbing, cyanosis, or edema. No joint tenderness or effusion noted. No calf tenderness. No mottling or clubbing. NEUROLOGICAL: Appears weak, fatigued, oriented 4. Motor and sensory grossly within normal limits. Follows commands. Moves all extremities. PSYCHIATRIC: No obvious anxiety, no evidence of psychosis. . Diagnostic Tests Laboratory: Laboratory Results - last 72 hr 02/13/18 02/14/18 02/14/18 18:01 00:09 04:36 WBC RBC Hgb Hct MCV MCH MCHC RDW Plt Count MPV Prelim Diff (Auto) Neut % (Auto) Lymph % (Auto) [place] % (Auto) Eos % (Auto) Baso % (Auto) Neut # (Auto) Lymph # (Auto) [place] # (Auto) Eos # (Auto) Baso # (Auto) WBC Differential Diff Scan Differential Comment Platelet Estimate Platelet Morphology Ovalocytes Acanthocytes (Spur) Keratocytes PT 22.1 H INR 2.2 Sodium Potassium Chloride Carbon Dioxide Anion Gap BUN Creatinine Estimated GFR POC Glucose 183 H 157 H Random Glucose Calcium Phosphorus Magnesium Total Bilirubin AST ALT Alkaline Phosphatase Total Protein Albumin 02/14/18 02/14/18 02/14/18 04:36 04:36 05:53 WBC 9.4 RBC 3.47 L Hgb 10.2 L Hct 31.2 L MCV 89.8 MCH 29.3 MCHC 32.6 RDW 21.7 H Plt Count 85 L MPV 10.3 Prelim Diff (Auto) Neut % (Auto) Lymph % (Auto) [place] % (Auto) Eos % (Auto) Baso % (Auto) Neut # (Auto) Lymph # (Auto) [place] # (Auto) Eos # (Auto) Baso # (Auto) WBC Differential Diff Scan Differential Comment Platelet Estimate Platelet Morphology Ovalocytes Acanthocytes (Spur) Keratocytes PT INR Sodium 136 Potassium 4.8 Chloride 97 L Carbon Dioxide 26.3 Anion Gap 13 BUN 82 H Creatinine 5.87 H Estimated GFR 10 L POC Glucose 321 H Random Glucose 223 H Calcium 8.2 L D Phosphorus 4.1 D Magnesium Total Bilirubin AST ALT Alkaline Phosphatase Total Protein Albumin 2.9 L 02/14/18 02/14/18 02/14/18 12:29 18:07 19:50 WBC RBC Hgb Hct MCV MCH MCHC RDW Plt Count MPV Prelim Diff (Auto) Neut % (Auto) Lymph % (Auto) [place] % (Auto) Eos % (Auto) Baso % (Auto) Neut # (Auto) Lymph # (Auto) [place] # (Auto) Eos # (Auto) Baso # (Auto) WBC Differential Diff Scan Differential Comment Platelet Estimate Platelet Morphology Ovalocytes Acanthocytes (Spur) Keratocytes PT INR Sodium Potassium Chloride Carbon Dioxide Anion Gap BUN Creatinine Estimated GFR POC Glucose 141 H 292 H 382 H Random Glucose Calcium Phosphorus Magnesium Total Bilirubin AST ALT Alkaline Phosphatase Total Protein Albumin 02/15/18 02/15/18 02/15/18 04:17 04:17 04:17 WBC 10.0 RBC 3.35 L Hgb 9.9 L Hct 29.9 L MCV 89.5 MCH 29.5 MCHC 33.0 RDW 21.6 H Plt Count 74 L MPV 9.9 Prelim Diff (Auto) Slide review pending Neut % (Auto) 95.0 H Lymph % (Auto) 1.9 L [place] % (Auto) 2.7 Eos % (Auto) 0.0 Baso % (Auto) 0.4 Neut # (Auto) 9.5 H Lymph # (Auto) 0.2 L [place] # (Auto) 0.3 Eos # (Auto) 0.0 Baso # (Auto) 0.0 WBC Differential . Diff Scan Auto diff confirmed Differential Comment . Platelet Estimate Low L Platelet Morphology Normal Ovalocytes 1+ H Acanthocytes (Spur) 1+ H Keratocytes Occ H PT 17.9 H INR 1.8 Sodium 136 Potassium 5.0 Chloride 96 L Carbon Dioxide 25.4 Anion Gap 15 BUN 108 H Creatinine 7.22 H Estimated GFR 8 L POC Glucose Random Glucose 96 D Calcium 8.6 Phosphorus 4.3 Magnesium 2.6 H Total Bilirubin 1.2 H AST 35 ALT 43 Alkaline Phosphatase 109 Total Protein 6.2 L Albumin 2.9 L 02/15/18 02/15/18 02/15/18 08:00 12:17 17:36 WBC RBC Hgb Hct MCV MCH MCHC RDW Plt Count MPV Prelim Diff (Auto) Neut % (Auto) Lymph % (Auto) [place] % (Auto) Eos % (Auto) Baso % (Auto) Neut # (Auto) Lymph # (Auto) [place] # (Auto) Eos # (Auto) Baso # (Auto) WBC Differential Diff Scan Differential Comment Platelet Estimate Platelet Morphology Ovalocytes Acanthocytes (Spur) Keratocytes PT INR Sodium Potassium Chloride Carbon Dioxide Anion Gap BUN Creatinine Estimated GFR POC Glucose 167 H 251 H 362 H Random Glucose Calcium Phosphorus Magnesium Total Bilirubin AST ALT Alkaline Phosphatase Total Protein Albumin 02/15/18 02/16/18 02/16/18 19:29 03:50 03:50 WBC 11.4 H RBC 3.31 L Hgb 9.5 L Hct 29.8 L MCV 89.9 MCH 28.8 MCHC 32.1 RDW 21.8 H Plt Count 73 L MPV 10.6 Prelim Diff (Auto) Slide review pending Neut % (Auto) 96.0 H Lymph % (Auto) 1.3 L [place] % (Auto) 2.6 Eos % (Auto) 0.0 Baso % (Auto) 0.1 Neut # (Auto) 11.0 H Lymph # (Auto) 0.1 L [place] # (Auto) 0.3 Eos # (Auto) 0.0 Baso # (Auto) 0.0 WBC Differential . Diff Scan Auto diff confirmed Differential Comment . Platelet Estimate Platelet Morphology Ovalocytes 1+ H Acanthocytes (Spur) Occ H Keratocytes PT 19.7 H INR 1.9 Sodium Potassium Chloride Carbon Dioxide Anion Gap BUN Creatinine Estimated GFR POC Glucose 273 H Random Glucose Calcium Phosphorus Magnesium Total Bilirubin AST ALT Alkaline Phosphatase Total Protein Albumin 02/16/18 03:50 WBC RBC Hgb Hct MCV MCH MCHC RDW Plt Count MPV Prelim Diff (Auto) Neut % (Auto) Lymph % (Auto) [place] % (Auto) Eos % (Auto) Baso % (Auto) Neut # (Auto) Lymph # (Auto) [place] # (Auto) Eos # (Auto) Baso # (Auto) WBC Differential Diff Scan Differential Comment Platelet Estimate Platelet Morphology Ovalocytes Acanthocytes (Spur) Keratocytes PT INR Sodium 137 Potassium 5.2 H Chloride 97 L Carbon Dioxide 25.7 Anion Gap 14 BUN 135 H Creatinine 8.31 H Estimated GFR 6 L POC Glucose Random Glucose 97 Calcium 8.6 Phosphorus 4.8 Magnesium 2.6 H Total Bilirubin 1.1 H AST 34 ALT 45 Alkaline Phosphatase 110 Total Protein 6.1 L Albumin 2.8 L Result Diagrams: 02/16/18 03:50 02/16/18 03:50 Imaging: Chest X-Ray 01/15/18 18:13 CONCLUSION: Mild interstitial prominence without focal airspace opacities. Slight improvement prior 12/12/2017. Stable cardiomegaly. Chest X-Ray 01/23/18 09:37 CONCLUSION: Mild interval increase in interstitial opacities of concern for pulmonary edema. Abdomen X-Ray 01/23/18 23:05 CONCLUSION: 1. Nonobstructive bowel gas pattern. Chest X-Ray 01/24/18 08:50 CONCLUSION: No appreciable change. Chest X-Ray 01/25/18 09:25 CONCLUSION: No significant change. Chest X-Ray 01/29/18 09:48 CONCLUSION: 1. Stable cardiomegaly and mild positive fluid balance. 2. No significant interval change. Chest CTA 01/30/18 00:00 CONCLUSION: 1. No evidence of pulmonary embolus. 2. Severe bilateral pulmonary parenchymal opacity with predominance at the dependent portions of the lungs. Difficult diagnosis includes pulmonary edema and infection. 3. Elongated lobulated nodular density in the right midlung following the major fissure likely represents loculated pleural effusion. 4. Enlarged pulmonary arteries suggesting pulmonary arterial hypertension. 5. Enlarged heart and small pericardial effusion. 6. Small left than right pleural effusions. 7. Mildly enlarged mediastinal lymph nodes, likely reactive. Chest X-Ray 02/04/18 00:00 CONCLUSION: 1. Patchy infiltrates bilaterally consistent with moderate pulmonary edema versus pneumonia. Clinical correlation is recommended. 2. Cardiomegaly. 3. Tiny bilateral pleural effusions. Chest X-Ray 02/09/18 08:04 CONCLUSION: 1. Cardiomegaly with interstitial edema. 2. Mild airspace disease in the right lung base, presumably atelectasis. Chest X-Ray 02/12/18 00:00 CONCLUSION: Stable chest x-ray with enlarged cardiac silhouette with bilateral diffuse interstitial process. Although nonspecific the changes could be related to pulmonary edema. Chest X-Ray 02/15/18 06:00 CONCLUSION: Cardiomegaly. Diffuse increased interstitial markings likely related to diffuse processes such as edema. Possible mild right pleural effusion. Chest X-Ray 02/16/18 06:00 CONCLUSION: Worsening bilateral pulmonary infiltrates. Radiographic pattern suggesting pulmonary edema. 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 Legal:His daughter, Dinorah Greer, is his healthcare decision maker/HCS. Ethical issues impacting care: None noted. Important Contacts: Daughter: Dinorah Greer (Cindy) . Prognosis: His prognosis is poor. He has significant hypoxic lung disease/respiratory failure, end-stage renal disease, diabetes, hypertension and is at risk for further complications and decline. He is likely terminal, and would be appropriate for hospice his goals were to comfort oriented. . Code Status: Full Code Plan: PLAN: FULL CODE, confirmed with patient again 02/09/18 DECISION-MAKING: The patient is capacitated to make his own decisions however requests assisted decision making with his daughter, Dinorah Greer (Cindy). He has chosen her to be his HCS. GOALS: Aggressive. Patient states he does not want to sign a DNR and would accept mechanical ventilation if required. SYMPTOMS: * Anxiety: Progressively worsening, secondary to severe respiratory insufficiency, increased work of breathing. Unable to effectively participate in PT due to dyspnea and weakness. 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 He continues to require high flow nasal cannula at 100%. His respiratory status would be expected to continue to decline in the upcoming days/weeks, and he is at risk of requiring intubation. It is considered a near certainty that he will not be able to be extubated post bronchoscopy which both the patient and the family is aware of. After discussion with the daughter and the patient, they both agreed to a lung biopsy during bronchoscopy. Palliative care will continue to follow the patient during hospitalization. . Attestation Attestation: To help prompt me to consider important information that might be impacting today's encounter and assessment, information from prior notes written by myself or my colleagues may have been "brought forward" into today's note. My signature on this note, however, is an attestation that I personally performed the exam, history, and/or decision-making noted today, and, unless otherwise indicated, the interactions with patient, family, and staff as well as the review of records all occurred today. I also attest that the listed assessment and stated plan reflect my best clinical judgment today based on the combination of historical information, prior notes, and today's exam/ interactions. When time spent is documented, it refers only to time spent today by the signer, or if indicated, combined time spent today by collaborating physician/nurse practitioner. .
[2018-02-17 05:02] LABS: ABG Base Excess 2.9 mmol/L (-2-2); ABG PCO2 42 mmHg (38-42); ABG PO2 60 mmHG (61-120)
[2018-02-17] MEDS: Clotrimazole 10 MG Troche BUCCAL SCH ×4 (05:44→22:56)
[2018-02-17 06:57] LABS: Baso % (Auto) 0.2 % (0.0-2.0); Hematocrit 29.3 % (39.0-51.0); Hemoglobin 9.3 gm/dL (13.0-17.0); Lymph # (Auto) 0.2 th/mm3 (1.0-4.8); Lymph % (Auto) 2.8 % (9.0-44.0); Mean Corpuscular HGB Conc 31.9 % (32.0-36.0); Mean Corpuscular Hemoglobin 29.1 pg (27.0-34.0); Mean Corpuscular Volume 91.3 fL (80.0-100.0); Mono # (Auto) 0.2 th/mm3 (0.0-0.9); Mono % (Auto) 2.9 % (0.0-8.0); Neut # (Auto) 7.2 th/mm3 (1.8-7.7); Neut % (Auto) 94.1 % (16.0-70.0); Platelet Count 61 th/mm3 (150-450); Red Blood Count 3.21 mil/mm3 (4.50-5.90); White Blood Count 7.6 th/mm3 (4.0-11.0)
[2018-02-17 07:03] LABS: INR 2.5 Ratio; Prothrombin Time 25.1 sec (9.8-11.6)
[2018-02-17 07:21] LABS: Albumin 2.7 g/dL (3.4-5.0); Anion Gap 13 meq/L (5-15); Aspartate Aminotransferase 37 U/L (15-37); Blood Urea Nitrogen 89 mg/dL (7-18); Calcium 8.5 mg/dL (8.5-10.1); Chloride 98 meq/L (98-107); Glomerular Filtration Rate 9 mL/min (>89); Glucose,Random 138 mg/dL (74-106); Magnesium 2.6 mg/dL (1.5-2.5); Sodium 139 meq/L (136-145)
[2018-02-17 07:35] LABS: Alanine Aminotransferase 43 U/L (12-78); Alkaline Phosphatase 107 U/L (45-117)
--- NOTE | 2018-02-17 08:03 | P.PN ---
Subjective Interval history: alert 100% O2 NAD MINOR HEMOPTYSIS Physical Exam Vital signs: Vital Signs 02/16/18 08:45 02/16/18 09:00 02/16/18 09:15 Temperature Pulse Rate 80 80 80 Respiratory Rate 18 15 28 H Blood Pressure 114/53 L 114/54 L 112/56 L Pulse Oximetry 90 L 90 L 86 L 02/16/18 09:26 02/16/18 09:30 02/16/18 09:45 Temperature Pulse Rate 80 80 Respiratory Rate 31 H 31 H Blood Pressure 109/53 L 100/47 L Pulse Oximetry 65 L 85 L 80 L 02/16/18 10:00 02/16/18 10:15 02/16/18 10:30 Temperature Pulse Rate 80 80 80 Respiratory Rate 26 H 29 H 19 Blood Pressure 95/54 L 100/52 L 95/51 L Pulse Oximetry 84 L 87 L 89 L 02/16/18 10:45 02/16/18 11:00 02/16/18 11:03 Temperature Pulse Rate 80 80 80 Respiratory Rate 35 H 31 H 22 Blood Pressure 85/49 L 82/48 L 92/52 L Pulse Oximetry 92 L 91 L 90 L 02/16/18 11:15 02/16/18 11:30 02/16/18 12:00 Temperature Pulse Rate 80 80 80 Respiratory Rate 22 23 30 H Blood Pressure 91/48 L 99/51 L 87/47 L Pulse Oximetry 96 98 96 02/16/18 12:15 02/16/18 12:30 02/16/18 12:45 Temperature Pulse Rate 80 80 80 Respiratory Rate 20 15 21 Blood Pressure 85/49 L 88/50 L 90/50 L Pulse Oximetry 97 98 94 L 02/16/18 13:00 02/16/18 13:15 02/16/18 13:30 Temperature Pulse Rate 80 80 80 Respiratory Rate 21 26 H 22 Blood Pressure 94/51 L 91/53 L 96/53 L Pulse Oximetry 94 L 94 L 94 L 02/16/18 13:45 02/16/18 14:00 02/16/18 14:15 Temperature Pulse Rate 80 80 80 Respiratory Rate 19 16 35 H Blood Pressure 90/44 L 92/50 L 96/53 L Pulse Oximetry 98 97 93 L 02/16/18 14:30 02/16/18 14:46 02/16/18 15:00 Temperature Pulse Rate 80 80 80 Respiratory Rate 29 H 25 H 37 H Blood Pressure 96/52 L 88/44 L 86/48 L Pulse Oximetry 91 L 97 97 02/16/18 15:15 02/16/18 15:30 02/16/18 15:45 Temperature Pulse Rate 80 80 80 Respiratory Rate 22 25 H 27 H Blood Pressure 89/50 L 83/48 L 84/48 L Pulse Oximetry 96 99 94 L 02/16/18 16:00 02/16/18 16:59 02/16/18 18:00 Temperature Pulse Rate 80 80 80 Respiratory Rate 34 H 18 Blood Pressure 88/48 L Pulse Oximetry 92 L 02/16/18 18:59 02/16/18 19:05 02/16/18 20:00 Temperature 99.1 F Pulse Rate 80 Respiratory Rate 16 16 Blood Pressure 95/41 L Pulse Oximetry 90 L 98 02/16/18 21:15 02/16/18 21:30 02/16/18 21:31 Temperature Pulse Rate 80 80 80 Respiratory Rate 23 33 H 24 Blood Pressure 91/51 L 77/36 L 100/53 L Pulse Oximetry 96 90 L 91 L 02/16/18 21:45 02/16/18 22:00 02/16/18 22:15 Temperature Pulse Rate 80 80 80 Respiratory Rate 29 H 21 24 Blood Pressure 102/50 L 105/52 L 103/52 L Pulse Oximetry 81 L 95 96 02/16/18 22:30 02/16/18 22:45 02/16/18 23:00 Temperature Pulse Rate 80 80 80 Respiratory Rate 38 H 27 H 25 H Blood Pressure 100/54 L 99/54 L 103/54 L Pulse Oximetry 91 L 95 97 02/16/18 23:15 02/16/18 23:30 02/16/18 23:45 Temperature Pulse Rate 80 80 80 Respiratory Rate 29 H 32 H 34 H Blood Pressure 103/53 L 117/56 L 115/56 L Pulse Oximetry 91 L 93 L 94 L 02/17/18 00:00 02/17/18 00:15 02/17/18 00:30 Temperature 98.3 F Pulse Rate 80 80 80 Respiratory Rate 25 H 25 H 12 Blood Pressure 101/55 L 101/52 L 113/54 L Pulse Oximetry 95 93 L 100 02/17/18 00:45 02/17/18 01:00 02/17/18 01:15 Temperature Pulse Rate 80 80 80 Respiratory Rate 19 13 13 Blood Pressure 97/56 L 104/55 L 100/51 L Pulse Oximetry 100 100 100 02/17/18 01:30 02/17/18 01:45 02/17/18 02:00 Temperature Pulse Rate 80 80 80 Respiratory Rate 14 13 13 Blood Pressure 104/53 L 108/54 L 92/51 L Pulse Oximetry 99 100 100 02/17/18 02:15 02/17/18 02:30 02/17/18 02:45 Temperature Pulse Rate 80 80 80 Respiratory Rate 13 13 24 Blood Pressure 89/51 L 97/50 L 98/53 L Pulse Oximetry 100 100 81 L 02/17/18 03:00 02/17/18 03:15 02/17/18 03:30 Temperature Pulse Rate 80 80 80 Respiratory Rate 38 H 46 H 28 H Blood Pressure 118/56 L 106/54 L 105/56 L Pulse Oximetry 99 100 100 02/17/18 03:45 02/17/18 04:00 02/17/18 04:15 Temperature Pulse Rate 80 80 80 Respiratory Rate 19 20 25 H Blood Pressure 100/54 L 102/53 L 102/57 L Pulse Oximetry 100 72 L 81 L 02/17/18 04:30 02/17/18 04:45 02/17/18 05:00 Temperature Pulse Rate 80 80 80 Respiratory Rate 36 H 20 17 Blood Pressure 93/54 L 98/53 L 109/56 L Pulse Oximetry 81 L 85 L 90 L 02/17/18 05:15 02/17/18 05:29 02/17/18 05:31 Temperature Pulse Rate 80 80 Respiratory Rate 22 18 Blood Pressure 99/51 L 113/56 L Pulse Oximetry 95 89 L 90 L 02/17/18 05:45 02/17/18 06:00 02/17/18 06:17 Temperature Pulse Rate 80 80 80 Respiratory Rate 27 H 25 H 34 H Blood Pressure 126/61 116/54 L 113/56 L Pulse Oximetry 90 L 93 L 92 L 02/17/18 06:30 02/17/18 06:45 Temperature Pulse Rate 80 80 Respiratory Rate 11 L 26 H Blood Pressure 118/58 L 106/54 L Pulse Oximetry 96 94 L Intake & Output 02/16/18 02/17/18 02/17/18 18:59 06:59 18:59 Intake Total 700 / 700 600 / 600 Output Total 1200 / 1200 Balance -500 / -500 600 / 600 Weight 94 kg Intake: IV 100 / 100 Maxipime Inj 1,000 MG In NS Inj 100 / 100 100 ML @ 200 mls/hr IV.SIG Q24H PEDRO Rx#:[id number] Oral 600 / 600 600 / 600 Output: Hemodialysis Amount 1200 / 1200 Other: Date of Last Bowel Movement 02/15/18 02/17/18 Narrative: GENERAL: Frail, elderly. HEENT: PERRL CARDIOVASCULAR: Paced rhythm. RESPIRATORY: bilateral wheezes, rhonchi GASTROINTESTINAL: Abdomen soft, non-tender, nondistended. Hepatic and splenic margins not palpable. Decreased bowel sounds. MUSCULOSKELETAL: Extremities without clubbing, cyanosis, mild edema. No obvious deformities. Cath site without hematoma. NEUROLOGICAL: Awake and alert. No obvious cranial nerve deficits. Results - Labs CBC & Chem 7: 02/17/18 06:17 02/17/18 06:17 Laboratory Results - last 24 hr 02/12/18 02/16/18 02/16/18 13:22 21:05 22:45 WBC RBC Hgb Hct MCV MCH MCHC RDW Plt Count MPV Prelim Diff (Auto) Neut % (Auto) Lymph % (Auto) [place] % (Auto) Eos % (Auto) Baso % (Auto) Neut # (Auto) Lymph # (Auto) [place] # (Auto) Eos # (Auto) Baso # (Auto) Differential Comment PT INR Puncture Site Patient Temperature O2 Saturation ABG pH ABG pCO2 ABG pO2 ABG HCO3 ABG O2 Content ABG Base Excess ABG Methemoglobin Eligio Test Hemoglobin Carboxyhemoglobin O2 Delivery Device Liter Flow Inspired O2 Critical Value Sodium Potassium Chloride Carbon Dioxide Anion Gap BUN Creatinine Estimated GFR POC Glucose 356 H 364 H Random Glucose Calcium Magnesium Total Bilirubin AST ALT Alkaline Phosphatase Total Protein Albumin Anti-Proteinase 3 Less than 1.0 Anti-Myeloperoxidase Less than 1.0 Glomerular Base Mem IgG <1.0 02/17/18 02/17/18 02/17/18 04:47 06:17 06:17 WBC 7.6 RBC 3.21 L Hgb 9.3 L Hct 29.3 L MCV 91.3 MCH 29.1 MCHC 31.9 L RDW 22.0 H Plt Count 61 L MPV 11.0 Prelim Diff (Auto) Slide review pending Neut % (Auto) 94.1 H Lymph % (Auto) 2.8 L [place] % (Auto) 2.9 Eos % (Auto) 0.0 Baso % (Auto) 0.2 Neut # (Auto) 7.2 Lymph # (Auto) 0.2 L [place] # (Auto) 0.2 Eos # (Auto) 0.0 Baso # (Auto) 0.0 Differential Comment . PT 25.1 H INR 2.5 Puncture Site Right radial Patient Temperature 98.6 O2 Saturation 86 L* ABG pH 7.43 H ABG pCO2 42 ABG pO2 60 L ABG HCO3 27 H ABG O2 Content 11.1 L ABG Base Excess 2.9 H ABG Methemoglobin 1.6 Eligio Test Present Hemoglobin 9.1 L Carboxyhemoglobin 3.0 O2 Delivery Device Hfnc Liter Flow 40.00 Inspired O2 100 Critical Value Yes Sodium Potassium Chloride Carbon Dioxide Anion Gap BUN Creatinine Estimated GFR POC Glucose Random Glucose Calcium Magnesium Total Bilirubin AST ALT Alkaline Phosphatase Total Protein Albumin Anti-Proteinase 3 Anti-Myeloperoxidase Glomerular Base Mem IgG 02/17/18 06:17 WBC RBC Hgb Hct MCV MCH MCHC RDW Plt Count MPV Prelim Diff (Auto) Neut % (Auto) Lymph % (Auto) [place] % (Auto) Eos % (Auto) Baso % (Auto) Neut # (Auto) Lymph # (Auto) [place] # (Auto) Eos # (Auto) Baso # (Auto) Differential Comment PT INR Puncture Site Patient Temperature O2 Saturation ABG pH ABG pCO2 ABG pO2 ABG HCO3 ABG O2 Content ABG Base Excess ABG Methemoglobin Eligio Test Hemoglobin Carboxyhemoglobin O2 Delivery Device Liter Flow Inspired O2 Critical Value Sodium 139 Potassium 5.0 Chloride 98 Carbon Dioxide 28.0 Anion Gap 13 BUN 89 H Creatinine 6.32 H Estimated GFR 9 L POC Glucose Random Glucose 138 H Calcium 8.5 Magnesium 2.6 H Total Bilirubin 1.6 H AST 37 ALT 43 Alkaline Phosphatase 107 Total Protein 6.0 L Albumin 2.7 L Anti-Proteinase 3 Anti-Myeloperoxidase Glomerular Base Mem IgG Assessment and Plan - Plan RESPIRATORY FAILURE, hemoptysis pna/chf ENAL FAILURE ? COPD Chest pain CHF POST AV NODE ABLATION PULM HTN PLAN O2 NEEDED BRONCHODILATOR THERAPY INCREASE ACTIVITY taper steroids THERAPY FOR PAH Discussed BX with patient , declined bronchoscopy today
[2018-02-17] MEDS ORDERED: Propofol 1000 mg/100 ml Inj 1,000 MG/100 ML BOTTLE IV.CONT PRN (08:28)
[2018-02-17] MEDS ORDERED: Propofol Inj 500 MG/50 ML Vial ONE ×2 (08:29→08:34)
--- NOTE | 2018-02-17 08:49 | P.PNCC ---
Subjective Subjective Remarks/Hospital Course: This is a 72yM with history of ESRD on HD who was recently admitted last month for supraventricular tachycardia. It appears from the records that normal sinus rhythm was restored prior to discharge home. He re-presented to the hospital with atrial fibrillation with rapid ventricular response which has been poorly responsive to esmolol infusion. It is noted that there is still a shortage of diltiazem infusions, so none is available to place the patient on. Dr. Waters with cardiology was consulted, as was Dr. Weinberg. The patient has also had hypotension during this hospital stay with most blood pressure readings between 80-100 systolic. This morning, Bystolic was started and was given together with amiodarone 400mg and metoprolol 25mg po. Approximately 2 hours after this, his blood pressure dropped into the 60s and 70s systolic. I was consulted by Dr. Wilcox to evaluate and manage his hemodynamics in the setting of poorly-controlled atrial fibrillation and hypotension. The patient does complain of light-headedness and a little chest discomfort which is new since his blood pressure has dropped into the 70s. He denies any other complaints and tolerated breakfast this AM. ROS otherwise negative. troponins have been serially negative this admission. I performed bedside critical care echocardiography and compared this to images obtained from last hospital admission on 11/2017. Given the poorly controlled nature of the patient's rate, wall motion and accurate ejection fraction are difficult to assess with accuracy. It does appear that the patient has relatively preserved EF and at most only mildly depressed LVEF. Aortic valve is sclerotic but appears unchanged from prior echo which calculated the valve area at ~2cm. no pericardial effusion. IVC is dilated around 2cm without respiratory variation. heart rate on my evaluation is 121. 8/2: Critical care reconsulted by Dr. Weinberg for worsening respiratory failure. Patient dropped O2 sats to 84% on 6 L nasal cannula. When I evaluated patient he was resting in bed. Placed him on high flow nasal cannula 30 L/min 60% FiO2 with which his O2 sats came up to 90%. 01/30: Remains on high flow nasal cannula. CT chest negative for PE shows consolidation bilateral lower lobes and a loculated effusion on the right. Defer to pulmonary regarding further recommendations. 01/31: Remains on high flow nasal cannula. Being dialyzed currently. On 30 L/ min 60% FiO2. O2 sats 96%. Feels that he is breathing a little better. 02/01, 02/02: On high flow nasal cannula at 20 L/min 50% FiO2. Shortness of breath gradually improving. 02/03: On high flow nasal cannula 20 L/min 60% FiO2. Underwent mitral implantation and AV gilbert ablation yesterday by Dr. Weinberg. Sitting up in bed today. Appears comfortable not in any acute distress. 02/04 Patient 02/04 Patient is awake and alert on high flow oxygen 25L with 70% FIO2> Afebrile. For HD today 02/05 No events overnight. s/p HD yesterday with removal 5L. Afebrile. On 25L with FIO2 down to 50% 02/06 Patient remains on high flow oxygen with 25L 55%FIO2. Afebrile. 02/07 Patient s/p HD yesterday with removal 4.5L. Remains on high flow oxygen 25L with 50% FIO2. Afebrile. 02/08 Patient s/p HD yesterday with removal 3L. On high flow oxygen. Afebrile. 02/09 Patient remains on high flow oxygen 25L with 55% FIO2. Afebrile. For HD today 02/10 Patient is awake and alert. s/p HD yesterday with removal 3L. On 30L with 60% FIO2. Afebrile. 02/11 Patient is n 30L with 55% FIO2. Afebrile. 02/12: Patient remains on high flow nasal cannula. Very tired. Afebrile. Tolerating diet. 02/13: Hemodialysis is remained level. Unable to take fluid off due to hypotension. Remains on high flow nasal cannula 30 L 60% FiO2. Tolerating diet. Weak. 02/14: Afebrile. Remains on high flow nasal cannula at 35 L 60%. Plan for bronchoscopy with Dr. Moore on Friday. 02/15: Afebrile. Disconnect oxygen desaturation. Currently on high flow nasal cannula 40 L at 80%. Will recheck chest x-ray in a.m. Hemoptysis present but not as copious as before previously. 02/16: Worsening O2 requirements over the night, currently on FiO2 of 1 45 L/min high flow nasal cannula. Patient remains awake and conversant, still with some hemoptysis. Bronchoscopy scheduled for Friday. T-max of 98.5. SUBJECTIVE: 02/17: No events over the night. Patient remains on high flow nasal cannula at 100%. This morning patient underwent bronchoscopy without biopsy and postprocedure patient remained intubated. Results of bronchoscopy not known at this time. T-max of 99.1, urine output over the last 24 hours 1200 mL's. Objective Vital Signs / I&O: Vital Signs 02/16/18 08:45 02/16/18 09:00 02/16/18 09:15 Temperature Pulse Rate 80 80 80 Respiratory Rate 18 15 28 H Blood Pressure 114/53 L 114/54 L 112/56 L Pulse Oximetry 90 L 90 L 86 L 02/16/18 09:26 02/16/18 09:30 02/16/18 09:45 Temperature Pulse Rate 80 80 Respiratory Rate 31 H 31 H Blood Pressure 109/53 L 100/47 L Pulse Oximetry 65 L 85 L 80 L 02/16/18 10:00 02/16/18 10:15 02/16/18 10:30 Temperature Pulse Rate 80 80 80 Respiratory Rate 26 H 29 H 19 Blood Pressure 95/54 L 100/52 L 95/51 L Pulse Oximetry 84 L 87 L 89 L 02/16/18 10:45 02/16/18 11:00 02/16/18 11:03 Temperature Pulse Rate 80 80 80 Respiratory Rate 35 H 31 H 22 Blood Pressure 85/49 L 82/48 L 92/52 L Pulse Oximetry 92 L 91 L 90 L 02/16/18 11:15 02/16/18 11:30 02/16/18 12:00 Temperature Pulse Rate 80 80 80 Respiratory Rate 22 23 30 H Blood Pressure 91/48 L 99/51 L 87/47 L Pulse Oximetry 96 98 96 02/16/18 12:15 02/16/18 12:30 02/16/18 12:45 Temperature Pulse Rate 80 80 80 Respiratory Rate 20 15 21 Blood Pressure 85/49 L 88/50 L 90/50 L Pulse Oximetry 97 98 94 L 02/16/18 13:00 02/16/18 13:15 02/16/18 13:30 Temperature Pulse Rate 80 80 80 Respiratory Rate 21 26 H 22 Blood Pressure 94/51 L 91/53 L 96/53 L Pulse Oximetry 94 L 94 L 94 L 02/16/18 13:45 02/16/18 14:00 02/16/18 14:15 Temperature Pulse Rate 80 80 80 Respiratory Rate 19 16 35 H Blood Pressure 90/44 L 92/50 L 96/53 L Pulse Oximetry 98 97 93 L 02/16/18 14:30 02/16/18 14:46 02/16/18 15:00 Temperature Pulse Rate 80 80 80 Respiratory Rate 29 H 25 H 37 H Blood Pressure 96/52 L 88/44 L 86/48 L Pulse Oximetry 91 L 97 97 02/16/18 15:15 02/16/18 15:30 02/16/18 15:45 Temperature Pulse Rate 80 80 80 Respiratory Rate 22 25 H 27 H Blood Pressure 89/50 L 83/48 L 84/48 L Pulse Oximetry 96 99 94 L 02/16/18 16:00 02/16/18 16:59 02/16/18 18:00 Temperature Pulse Rate 80 80 80 Respiratory Rate 34 H 18 Blood Pressure 88/48 L Pulse Oximetry 92 L 02/16/18 18:59 02/16/18 19:05 02/16/18 20:00 Temperature 99.1 F Pulse Rate 80 Respiratory Rate 16 16 Blood Pressure 95/41 L Pulse Oximetry 90 L 98 02/16/18 21:15 02/16/18 21:30 02/16/18 21:31 Temperature Pulse Rate 80 80 80 Respiratory Rate 23 33 H 24 Blood Pressure 91/51 L 77/36 L 100/53 L Pulse Oximetry 96 90 L 91 L 02/16/18 21:45 02/16/18 22:00 02/16/18 22:15 Temperature Pulse Rate 80 80 80 Respiratory Rate 29 H 21 24 Blood Pressure 102/50 L 105/52 L 103/52 L Pulse Oximetry 81 L 95 96 02/16/18 22:30 02/16/18 22:45 02/16/18 23:00 Temperature Pulse Rate 80 80 80 Respiratory Rate 38 H 27 H 25 H Blood Pressure 100/54 L 99/54 L 103/54 L Pulse Oximetry 91 L 95 97 02/16/18 23:15 02/16/18 23:30 02/16/18 23:45 Temperature Pulse Rate 80 80 80 Respiratory Rate 29 H 32 H 34 H Blood Pressure 103/53 L 117/56 L 115/56 L Pulse Oximetry 91 L 93 L 94 L 02/17/18 00:00 02/17/18 00:15 02/17/18 00:30 Temperature 98.3 F Pulse Rate 80 80 80 Respiratory Rate 25 H 25 H 12 Blood Pressure 101/55 L 101/52 L 113/54 L Pulse Oximetry 95 93 L 100 02/17/18 00:45 02/17/18 01:00 02/17/18 01:15 Temperature Pulse Rate 80 80 80 Respiratory Rate 19 13 13 Blood Pressure 97/56 L 104/55 L 100/51 L Pulse Oximetry 100 100 100 02/17/18 01:30 02/17/18 01:45 02/17/18 02:00 Temperature Pulse Rate 80 80 80 Respiratory Rate 14 13 13 Blood Pressure 104/53 L 108/54 L 92/51 L Pulse Oximetry 99 100 100 02/17/18 02:15 02/17/18 02:30 02/17/18 02:45 Temperature Pulse Rate 80 80 80 Respiratory Rate 13 13 24 Blood Pressure 89/51 L 97/50 L 98/53 L Pulse Oximetry 100 100 81 L 02/17/18 03:00 02/17/18 03:15 02/17/18 03:30 Temperature Pulse Rate 80 80 80 Respiratory Rate 38 H 46 H 28 H Blood Pressure 118/56 L 106/54 L 105/56 L Pulse Oximetry 99 100 100 02/17/18 03:45 02/17/18 04:00 02/17/18 04:15 Temperature Pulse Rate 80 80 80 Respiratory Rate 19 20 25 H Blood Pressure 100/54 L 102/53 L 102/57 L Pulse Oximetry 100 72 L 81 L 02/17/18 04:30 02/17/18 04:45 02/17/18 05:00 Temperature Pulse Rate 80 80 80 Respiratory Rate 36 H 20 17 Blood Pressure 93/54 L 98/53 L 109/56 L Pulse Oximetry 81 L 85 L 90 L 02/17/18 05:15 02/17/18 05:29 02/17/18 05:31 Temperature Pulse Rate 80 80 Respiratory Rate 22 18 Blood Pressure 99/51 L 113/56 L Pulse Oximetry 95 89 L 90 L 02/17/18 05:45 02/17/18 06:00 02/17/18 06:17 Temperature Pulse Rate 80 80 80 Respiratory Rate 27 H 25 H 34 H Blood Pressure 126/61 116/54 L 113/56 L Pulse Oximetry 90 L 93 L 92 L 02/17/18 06:30 02/17/18 06:45 Temperature Pulse Rate 80 80 Respiratory Rate 11 L 26 H Blood Pressure 118/58 L 106/54 L Pulse Oximetry 96 94 L Intake & Output 02/16/18 02/17/18 02/17/18 18:59 06:59 18:59 Intake Total 700 / 700 600 / 600 Output Total 1200 / 1200 Balance -500 / -500 600 / 600 Weight 94 kg Intake: IV 100 / 100 Maxipime Inj 1,000 MG In NS Inj 100 / 100 100 ML @ 200 mls/hr IV.SIG Q24H PEDRO Rx#:[id number] Oral 600 / 600 600 / 600 Output: Hemodialysis Amount 1200 / 1200 Other: Date of Last Bowel Movement 02/15/18 02/17/18 Result Diagrams: 02/17/18 06:17 02/17/18 06:17 Objective Remarks: GENERAL: Elderly gentleman, intubated and sedated, ill-appearing. SKIN: No rash, no cyanosis. HEENT: Pupils are equal and reactive, sclerae are nonicteric. Orally intubated. No neck vein distention. No carotid bruit. CARDIOVASCULAR: Regular heart sounds. Systolic ejection murmur at apex 3/6. RESPIRATORY: Coarse breath sounds bilateral. No wheezes. Good air entry. GASTROINTESTINAL: Abdomen is soft, non-tender, nondistended. Bowel sounds are present. No hepatomegaly, no splenomegaly. MUSCULOSKELETAL: Trace bilateral lower extremity peripheral edema. Pulses are present. Warm and well-perfused. NEURO: Intubated and sedated, does not follow commands. 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 Pain medications as needed. Start propofol for sedation while on vent. Goal RASS -1 to -2 Continue buspirone 5 mg daily CV: Status post cardiac cath. Being followed by Dr. Weinberg. s/p ablation and micra placement 02/02/18 due to failure of medical management for rate control Echo showed EF 60-65%, mod- severe pulm HTN 60-70mmHg On Lipitor 80mg qhs and warfarin Pulmo: Continue PRVC 550/16/100%, PEEP 10 Vent bundle and bronchodilators Patient is synchronized with the vent, no auto PEEP, PIP is 25 Stat chest x-ray ABG at 9 AM We will start ventilator weaning once oxygen requirements are improved Taper methylprednisolone succinate to 30mg daily On budesonide/formoterol 80/4.5 2 puffs twice daily. On sildenafil 30mg TID for pulm HTN Post bronchoscopy on 02/17 GI/liver: P.o. diabetic/renal diet Renal/: Monitor renal function, I/O's, avoid nephrotoxins Renal is following. s/p HD today ID: s/p Zosyn (01/24- 02/07) 02/09 Sputum: Klebsiella pneumonia. Continue cefepime 2gram IV Q8 Monitor for signs of infections ( Fever, WBC) Endocrine: SSI (high scale) for glycemic control, insulin detemir 5u BID Heme: Monitor CBC, Coags- INR 2.5 today Prophylaxis: Famotidine/SCDs. Anticoagulation with warfarin for 2 mg today . Level 3 follow-up No family present at bedside.
[2018-02-17] MEDS: Insulin NovoLIN Regular Correctional Sugar Inj SQ SCH ×4 (09:16→22:55)
[2018-02-17] MEDS: Insulin Detemir Inj 1,000 UNIT/10 ML Vial SQ SCH ×2 (09:18→22:55)
[2018-02-17] MEDS: Calcium Acetate 667 MG Capsule PO SCH ×2 (09:19→20:16)
[2018-02-17] MEDS: Senna/Docusate Sodium 8.6/50 MG Tablet PO SCH ×2 (09:19→22:55)
[2018-02-17] MEDS: Budesonide-Formoterol 160/4.5 MCG 6 GM Inhaler INH SCH (09:20)
--- NOTE | 2018-02-17 09:37 | XR ---
EXAM DATE: 02/17/2018 9:09 AM EDT AGE/SEX: 72 years / Male INDICATIONS: Post intubation. CLINICAL DATA: This is the patient's subsequent encounter. Patient reports that signs and symptoms h ave been present for 1 week and indicates a pain score of Nonresponsive. MEDICAL/SURGICAL HISTORY: . Hypertension. Chronic obstructive pulmonary disease. Congestive hea rt failure. A-Fib. None. COMPARISON: [facility] [place], CHEST 1V SINGLE AP, 02/16/2018. . FINDINGS: Portable AP view of the chest demonstrates a normal-sized cardiac silhouette. Endotracheal tube dista l tip is at the aortic knob level measuring approximately 6.5 cm from the cam. Tunneled right IJ d ialysis catheter remains present with distal tips near the cavoatrial junction. Diffuse bilateral int erstitial and airspace opacity is present similar to the prior examination. No pleural effusion or pn eumothorax is identified. Bones demonstrate no acute finding. CONCLUSION: 1. Endotracheal tube in appropriate position with tip measuring 6.5 cm from the cam. 2. Stable severe bilateral interstitial opacity and airspace consolidation. Electronically signed by: Osmar Velasco MD 02/17/2018 9:35 AM EDT
[2018-02-17 09:55] LABS: Acanthocytes Occ; Ovalocytes 1+; Platelet Morphology Normal (Normal); Rouleaux Present
--- NOTE | 2018-02-17 10:09 | P.PNNP ---
Subjective Interval history: Intubated and bronchoscopy this AM. Family at bedside. Borderline hypotensive. Sedated with propofol. On 60% FiO2. <Jyoti Ceron - Last Filed: 02/17/18 10:03> Physical Exam Vital signs: Vital Signs 02/16/18 10:15 02/16/18 10:30 02/16/18 10:45 Temperature Pulse Rate 80 80 80 Respiratory Rate 29 H 19 35 H Blood Pressure 100/52 L 95/51 L 85/49 L Pulse Oximetry 87 L 89 L 92 L 02/16/18 11:00 02/16/18 11:03 02/16/18 11:15 Temperature Pulse Rate 80 80 80 Respiratory Rate 31 H 22 22 Blood Pressure 82/48 L 92/52 L 91/48 L Pulse Oximetry 91 L 90 L 96 02/16/18 11:30 02/16/18 12:00 02/16/18 12:15 Temperature Pulse Rate 80 80 80 Respiratory Rate 23 30 H 20 Blood Pressure 99/51 L 87/47 L 85/49 L Pulse Oximetry 98 96 97 02/16/18 12:30 02/16/18 12:45 02/16/18 13:00 Temperature Pulse Rate 80 80 80 Respiratory Rate 15 21 21 Blood Pressure 88/50 L 90/50 L 94/51 L Pulse Oximetry 98 94 L 94 L 02/16/18 13:15 02/16/18 13:30 02/16/18 13:45 Temperature Pulse Rate 80 80 80 Respiratory Rate 26 H 22 19 Blood Pressure 91/53 L 96/53 L 90/44 L Pulse Oximetry 94 L 94 L 98 02/16/18 14:00 02/16/18 14:15 02/16/18 14:30 Temperature Pulse Rate 80 80 80 Respiratory Rate 16 35 H 29 H Blood Pressure 92/50 L 96/53 L 96/52 L Pulse Oximetry 97 93 L 91 L 02/16/18 14:46 02/16/18 15:00 02/16/18 15:15 Temperature Pulse Rate 80 80 80 Respiratory Rate 25 H 37 H 22 Blood Pressure 88/44 L 86/48 L 89/50 L Pulse Oximetry 97 97 96 02/16/18 15:30 02/16/18 15:45 02/16/18 16:00 Temperature Pulse Rate 80 80 80 Respiratory Rate 25 H 27 H 34 H Blood Pressure 83/48 L 84/48 L 88/48 L Pulse Oximetry 99 94 L 92 L 02/16/18 16:59 02/16/18 18:00 02/16/18 18:59 Temperature Pulse Rate 80 80 Respiratory Rate 18 16 Blood Pressure Pulse Oximetry 02/16/18 19:05 02/16/18 20:00 02/16/18 21:15 Temperature 99.1 F Pulse Rate 80 80 Respiratory Rate 16 23 Blood Pressure 95/41 L 91/51 L Pulse Oximetry 90 L 98 96 02/16/18 21:30 02/16/18 21:31 02/16/18 21:45 Temperature Pulse Rate 80 80 80 Respiratory Rate 33 H 24 29 H Blood Pressure 77/36 L 100/53 L 102/50 L Pulse Oximetry 90 L 91 L 81 L 02/16/18 22:00 02/16/18 22:15 02/16/18 22:30 Temperature Pulse Rate 80 80 80 Respiratory Rate 21 24 38 H Blood Pressure 105/52 L 103/52 L 100/54 L Pulse Oximetry 95 96 91 L 02/16/18 22:45 02/16/18 23:00 02/16/18 23:15 Temperature Pulse Rate 80 80 80 Respiratory Rate 27 H 25 H 29 H Blood Pressure 99/54 L 103/54 L 103/53 L Pulse Oximetry 95 97 91 L 02/16/18 23:30 02/16/18 23:45 02/17/18 00:00 Temperature 98.3 F Pulse Rate 80 80 80 Respiratory Rate 32 H 34 H 25 H Blood Pressure 117/56 L 115/56 L 101/55 L Pulse Oximetry 93 L 94 L 95 02/17/18 00:15 02/17/18 00:30 02/17/18 00:45 Temperature Pulse Rate 80 80 80 Respiratory Rate 25 H 12 19 Blood Pressure 101/52 L 113/54 L 97/56 L Pulse Oximetry 93 L 100 100 02/17/18 01:00 02/17/18 01:15 02/17/18 01:30 Temperature Pulse Rate 80 80 80 Respiratory Rate 13 13 14 Blood Pressure 104/55 L 100/51 L 104/53 L Pulse Oximetry 100 100 99 02/17/18 01:45 02/17/18 02:00 02/17/18 02:15 Temperature Pulse Rate 80 80 80 Respiratory Rate 13 13 13 Blood Pressure 108/54 L 92/51 L 89/51 L Pulse Oximetry 100 100 100 02/17/18 02:30 02/17/18 02:45 02/17/18 03:00 Temperature Pulse Rate 80 80 80 Respiratory Rate 13 24 38 H Blood Pressure 97/50 L 98/53 L 118/56 L Pulse Oximetry 100 81 L 99 02/17/18 03:15 02/17/18 03:30 02/17/18 03:45 Temperature Pulse Rate 80 80 80 Respiratory Rate 46 H 28 H 19 Blood Pressure 106/54 L 105/56 L 100/54 L Pulse Oximetry 100 100 100 02/17/18 04:00 02/17/18 04:15 02/17/18 04:30 Temperature Pulse Rate 80 80 80 Respiratory Rate 20 25 H 36 H Blood Pressure 102/53 L 102/57 L 93/54 L Pulse Oximetry 72 L 81 L 81 L 02/17/18 04:45 02/17/18 05:00 02/17/18 05:15 Temperature Pulse Rate 80 80 80 Respiratory Rate 20 17 22 Blood Pressure 98/53 L 109/56 L 99/51 L Pulse Oximetry 85 L 90 L 95 02/17/18 05:29 02/17/18 05:31 02/17/18 05:45 Temperature Pulse Rate 80 80 Respiratory Rate 18 27 H Blood Pressure 113/56 L 126/61 Pulse Oximetry 89 L 90 L 90 L 02/17/18 06:00 02/17/18 06:17 02/17/18 06:30 Temperature Pulse Rate 80 80 80 Respiratory Rate 25 H 34 H 11 L Blood Pressure 116/54 L 113/56 L 118/58 L Pulse Oximetry 93 L 92 L 96 02/17/18 06:45 Temperature Pulse Rate 80 Respiratory Rate 26 H Blood Pressure 106/54 L Pulse Oximetry 94 L Intake & Output 02/16/18 02/17/18 02/17/18 18:59 06:59 18:59 Intake Total 700 / 700 600 / 600 Output Total 1200 / 1200 Balance -500 / -500 600 / 600 Weight 94 kg Intake: IV 100 / 100 Maxipime Inj 1,000 MG In NS Inj 100 / 100 100 ML @ 200 mls/hr IV.SIG Q24H [facility] Rx#:[id number] Oral 600 / 600 600 / 600 Output: Hemodialysis Amount 1200 / 1200 Other: Date of Last Bowel Movement 02/15/18 02/17/18 - Constitutional no acute distress, chronically ill appearing Comments: Intubated, unresponsive. - Routine HEENT Exam ENT: Present: mucous membranes dry Comments: edentulous - Routine Neck Exam Present: supple, full ROM. Absent: JVD - Routine Respiratory Exam Present: patient mechanically ventilated - Routine Cardiovascular Exam Present: RRR, S1, S2 Comments: paced - Routine Extremities Exam Present: pulses intact, AV fistula, vascular access. Absent: edema - Routine Skin Exam Present: intact, dry, warm - Routine Neurological Exam sedated, unresponsive on vent. - Detailed Neurological Exam: Coma Scale Eye Opening: None Verbal Response: None Motor Response: None Olesya Coma Scale Total: 3 - Routine Psychiatric Exam Present: unable to assess <Jyoti Ceron - Last Filed: 02/17/18 10:03> Vital signs: Vital Signs 02/16/18 11:30 02/16/18 12:00 02/16/18 12:15 Temperature Pulse Rate 80 80 80 Respiratory Rate 23 30 H 20 Blood Pressure 99/51 L 87/47 L 85/49 L Pulse Oximetry 98 96 97 02/16/18 12:30 02/16/18 12:45 02/16/18 13:00 Temperature Pulse Rate 80 80 80 Respiratory Rate 15 21 21 Blood Pressure 88/50 L 90/50 L 94/51 L Pulse Oximetry 98 94 L 94 L 02/16/18 13:15 02/16/18 13:30 02/16/18 13:45 Temperature Pulse Rate 80 80 80 Respiratory Rate 26 H 22 19 Blood Pressure 91/53 L 96/53 L 90/44 L Pulse Oximetry 94 L 94 L 98 02/16/18 14:00 02/16/18 14:15 02/16/18 14:30 Temperature Pulse Rate 80 80 80 Respiratory Rate 16 35 H 29 H Blood Pressure 92/50 L 96/53 L 96/52 L Pulse Oximetry 97 93 L 91 L 02/16/18 14:46 02/16/18 15:00 02/16/18 15:15 Temperature Pulse Rate 80 80 80 Respiratory Rate 25 H 37 H 22 Blood Pressure 88/44 L 86/48 L 89/50 L Pulse Oximetry 97 97 96 02/16/18 15:30 02/16/18 15:45 02/16/18 16:00 Temperature Pulse Rate 80 80 80 Respiratory Rate 25 H 27 H 34 H Blood Pressure 83/48 L 84/48 L 88/48 L Pulse Oximetry 99 94 L 92 L 02/16/18 16:59 02/16/18 18:00 02/16/18 18:59 Temperature Pulse Rate 80 80 Respiratory Rate 18 16 Blood Pressure Pulse Oximetry 02/16/18 19:05 02/16/18 20:00 02/16/18 21:15 Temperature 99.1 F Pulse Rate 80 80 Respiratory Rate 16 23 Blood Pressure 95/41 L 91/51 L Pulse Oximetry 90 L 98 96 02/16/18 21:30 02/16/18 21:31 02/16/18 21:45 Temperature Pulse Rate 80 80 80 Respiratory Rate 33 H 24 29 H Blood Pressure 77/36 L 100/53 L 102/50 L Pulse Oximetry 90 L 91 L 81 L 02/16/18 22:00 02/16/18 22:15 02/16/18 22:30 Temperature Pulse Rate 80 80 80 Respiratory Rate 21 24 38 H Blood Pressure 105/52 L 103/52 L 100/54 L Pulse Oximetry 95 96 91 L 02/16/18 22:45 02/16/18 23:00 02/16/18 23:15 Temperature Pulse Rate 80 80 80 Respiratory Rate 27 H 25 H 29 H Blood Pressure 99/54 L 103/54 L 103/53 L Pulse Oximetry 95 97 91 L 02/16/18 23:30 02/16/18 23:45 02/17/18 00:00 Temperature 98.3 F Pulse Rate 80 80 80 Respiratory Rate 32 H 34 H 25 H Blood Pressure 117/56 L 115/56 L 101/55 L Pulse Oximetry 93 L 94 L 95 02/17/18 00:15 02/17/18 00:30 02/17/18 00:45 Temperature Pulse Rate 80 80 80 Respiratory Rate 25 H 12 19 Blood Pressure 101/52 L 113/54 L 97/56 L Pulse Oximetry 93 L 100 100 02/17/18 01:00 02/17/18 01:15 02/17/18 01:30 Temperature Pulse Rate 80 80 80 Respiratory Rate 13 13 14 Blood Pressure 104/55 L 100/51 L 104/53 L Pulse Oximetry 100 100 99 02/17/18 01:45 02/17/18 02:00 02/17/18 02:15 Temperature Pulse Rate 80 80 80 Respiratory Rate 13 13 13 Blood Pressure 108/54 L 92/51 L 89/51 L Pulse Oximetry 100 100 100 02/17/18 02:30 02/17/18 02:45 02/17/18 03:00 Temperature Pulse Rate 80 80 80 Respiratory Rate 13 24 38 H Blood Pressure 97/50 L 98/53 L 118/56 L Pulse Oximetry 100 81 L 99 02/17/18 03:15 02/17/18 03:30 02/17/18 03:45 Temperature Pulse Rate 80 80 80 Respiratory Rate 46 H 28 H 19 Blood Pressure 106/54 L 105/56 L 100/54 L Pulse Oximetry 100 100 100 02/17/18 04:00 02/17/18 04:15 02/17/18 04:30 Temperature Pulse Rate 80 80 80 Respiratory Rate 20 25 H 36 H Blood Pressure 102/53 L 102/57 L 93/54 L Pulse Oximetry 72 L 81 L 81 L 02/17/18 04:45 02/17/18 05:00 02/17/18 05:15 Temperature Pulse Rate 80 80 80 Respiratory Rate 20 17 22 Blood Pressure 98/53 L 109/56 L 99/51 L Pulse Oximetry 85 L 90 L 95 02/17/18 05:29 02/17/18 05:31 02/17/18 05:45 Temperature Pulse Rate 80 80 Respiratory Rate 18 27 H Blood Pressure 113/56 L 126/61 Pulse Oximetry 89 L 90 L 90 L 02/17/18 06:00 02/17/18 06:17 02/17/18 06:30 Temperature Pulse Rate 80 80 80 Respiratory Rate 25 H 34 H 11 L Blood Pressure 116/54 L 113/56 L 118/58 L Pulse Oximetry 93 L 92 L 96 02/17/18 06:45 02/17/18 08:20 02/17/18 09:20 Temperature Pulse Rate 80 Respiratory Rate 26 H Blood Pressure 106/54 L Pulse Oximetry 94 L 100 100 02/17/18 10:10 Temperature Pulse Rate Respiratory Rate 25 H Blood Pressure Pulse Oximetry 100 Intake & Output 02/16/18 02/17/18 02/17/18 18:59 06:59 18:59 Intake Total 700 / 700 600 / 600 Output Total 1200 / 1200 Balance -500 / -500 600 / 600 Weight 94 kg Intake: IV 100 / 100 Maxipime Inj 1,000 MG In NS Inj 100 / 100 100 ML @ 200 mls/hr IV.SIG Q24H [facility] Rx#:[id number] Oral 600 / 600 600 / 600 Output: Hemodialysis Amount 1200 / 1200 Other: Date of Last Bowel Movement 02/15/18 02/17/18 <Eduardo Salvador - Last Filed: 02/17/18 11:20> Assessment and Plan - Assessment (1) ESRD (end stage renal disease) on dialysis Code(s): N18.6 - End stage renal disease; Z99.2 - Dependence on renal dialysis Status: Acute Plan: HD support continues MWF. 1L fluid removal yesterday. Starting to have intradialytic hypotension. Start midodrine TID on HD days. Monitor electrolytes intermittently. Avoid IVF administration. Protect left arm from procedures, has new AV access that is not mature yet. Will need to follow with vascular (Dr. Hutson) at a later date. Appears to be maturing well. PermCath in place for HD use. On calcium acetate with meals, given with tube feeding (Nepro). (2) Hypoxia Code(s): R09.02 - Hypoxemia Status: Acute Plan: s/p intubation and bronchoscopy. He did not have a biopsy. Pulmonary following. On sildenafil for pulmonary hypertension. Vent weening as tolerated ABG early this am showing hypoxia. (3) Atrial fibrillation with RVR Code(s): I48.91 - Unspecified atrial fibrillation Status: Acute Plan: corrected, s/p AV gilbert ablation with pacemaker placement. Midodrine is ordered TID for hypotension. Cardiology following. Appreciate recommendations. (4) CHF (congestive heart failure) Code(s): I50.9 - Heart failure, unspecified Status: Acute Qualifiers: Heart failure type: unspecified Heart failure chronicity: unspecified Qualified Code(s): I50.9 - Heart failure, unspecified Plan: Stable. EF noted to be around 60%. Repeat echo shows no change in EF. He has mild aortic regurgitation. Fluid removal with dialysis as tolerated. (5) Anemia in CKD (chronic kidney disease) Code(s): N18.9 - Chronic kidney disease, unspecified; D63.1 - Anemia in chronic kidney disease Status: Acute Plan: On Epogen with dialysis. Hemoglobin is acceptable. <Jyoti Ceron - Last Filed: 02/17/18 10:03> - Assessment (1) ESRD (end stage renal disease) on dialysis Code(s): N18.6 - End stage renal disease; Z99.2 - Dependence on renal dialysis Status: Acute (2) Hypoxia Code(s): R09.02 - Hypoxemia Status: Acute (3) Atrial fibrillation with RVR Code(s): I48.91 - Unspecified atrial fibrillation Status: Acute (4) CHF (congestive heart failure) Code(s): I50.9 - Heart failure, unspecified Status: Acute Qualifiers: Heart failure type: unspecified Heart failure chronicity: unspecified Qualified Code(s): I50.9 - Heart failure, unspecified (5) Anemia in CKD (chronic kidney disease) Code(s): N18.9 - Chronic kidney disease, unspecified; D63.1 - Anemia in chronic kidney disease Status: Acute - Attending Attestation patient was seen and examined. Agree with above assessment and plan. Hypoxic, on the vent.s/p bronchoscopy. <Eduardo Salvador - Last Filed: 02/17/18 11:20>
[2018-02-17] MEDS: MethylPREDNISolone Sod Succinate Inj 40 MG/ML Vial IV.PUSH SCH (11:12)
[2018-02-17] MEDS ORDERED: fentaNYL 10 mcg/mL Premix Drip 2,500 MCG/250 ML BAG IV.SIG PRN (11:50)
[2018-02-17] MEDS ORDERED: Lidocaine PF 1% Inj 5 ML Syringe INFILTRATN ONE (12:00)
--- NOTE | 2018-02-17 12:34 | P.PNCA ---
Subjective Interval history: intubated, sedated Physical Exam Vital signs: Vital Signs 02/16/18 12:45 02/16/18 13:00 02/16/18 13:15 Temperature Pulse Rate 80 80 80 Respiratory Rate 21 21 26 H Blood Pressure 90/50 L 94/51 L 91/53 L Pulse Oximetry 94 L 94 L 94 L 02/16/18 13:30 02/16/18 13:45 02/16/18 14:00 Temperature Pulse Rate 80 80 80 Respiratory Rate 22 19 16 Blood Pressure 96/53 L 90/44 L 92/50 L Pulse Oximetry 94 L 98 97 02/16/18 14:15 02/16/18 14:30 02/16/18 14:46 Temperature Pulse Rate 80 80 80 Respiratory Rate 35 H 29 H 25 H Blood Pressure 96/53 L 96/52 L 88/44 L Pulse Oximetry 93 L 91 L 97 02/16/18 15:00 02/16/18 15:15 02/16/18 15:30 Temperature Pulse Rate 80 80 80 Respiratory Rate 37 H 22 25 H Blood Pressure 86/48 L 89/50 L 83/48 L Pulse Oximetry 97 96 99 02/16/18 15:45 02/16/18 16:00 02/16/18 16:59 Temperature Pulse Rate 80 80 80 Respiratory Rate 27 H 34 H 18 Blood Pressure 84/48 L 88/48 L Pulse Oximetry 94 L 92 L 02/16/18 18:00 02/16/18 18:59 02/16/18 19:05 Temperature Pulse Rate 80 Respiratory Rate 16 Blood Pressure Pulse Oximetry 90 L 02/16/18 20:00 02/16/18 21:15 02/16/18 21:30 Temperature 99.1 F Pulse Rate 80 80 80 Respiratory Rate 16 23 33 H Blood Pressure 95/41 L 91/51 L 77/36 L Pulse Oximetry 98 96 90 L 02/16/18 21:31 02/16/18 21:45 02/16/18 22:00 Temperature Pulse Rate 80 80 80 Respiratory Rate 24 29 H 21 Blood Pressure 100/53 L 102/50 L 105/52 L Pulse Oximetry 91 L 81 L 95 02/16/18 22:15 02/16/18 22:30 02/16/18 22:45 Temperature Pulse Rate 80 80 80 Respiratory Rate 24 38 H 27 H Blood Pressure 103/52 L 100/54 L 99/54 L Pulse Oximetry 96 91 L 95 02/16/18 23:00 02/16/18 23:15 02/16/18 23:30 Temperature Pulse Rate 80 80 80 Respiratory Rate 25 H 29 H 32 H Blood Pressure 103/54 L 103/53 L 117/56 L Pulse Oximetry 97 91 L 93 L 02/16/18 23:45 02/17/18 00:00 02/17/18 00:15 Temperature 98.3 F Pulse Rate 80 80 80 Respiratory Rate 34 H 25 H 25 H Blood Pressure 115/56 L 101/55 L 101/52 L Pulse Oximetry 94 L 95 93 L 02/17/18 00:30 02/17/18 00:45 02/17/18 01:00 Temperature Pulse Rate 80 80 80 Respiratory Rate 12 19 13 Blood Pressure 113/54 L 97/56 L 104/55 L Pulse Oximetry 100 100 100 02/17/18 01:15 02/17/18 01:30 02/17/18 01:45 Temperature Pulse Rate 80 80 80 Respiratory Rate 13 14 13 Blood Pressure 100/51 L 104/53 L 108/54 L Pulse Oximetry 100 99 100 02/17/18 02:00 02/17/18 02:15 02/17/18 02:30 Temperature Pulse Rate 80 80 80 Respiratory Rate 13 13 13 Blood Pressure 92/51 L 89/51 L 97/50 L Pulse Oximetry 100 100 100 02/17/18 02:45 02/17/18 03:00 02/17/18 03:15 Temperature Pulse Rate 80 80 80 Respiratory Rate 24 38 H 46 H Blood Pressure 98/53 L 118/56 L 106/54 L Pulse Oximetry 81 L 99 100 02/17/18 03:30 02/17/18 03:45 02/17/18 04:00 Temperature Pulse Rate 80 80 80 Respiratory Rate 28 H 19 20 Blood Pressure 105/56 L 100/54 L 102/53 L Pulse Oximetry 100 100 72 L 02/17/18 04:15 02/17/18 04:30 02/17/18 04:45 Temperature Pulse Rate 80 80 80 Respiratory Rate 25 H 36 H 20 Blood Pressure 102/57 L 93/54 L 98/53 L Pulse Oximetry 81 L 81 L 85 L 02/17/18 05:00 02/17/18 05:15 02/17/18 05:29 Temperature Pulse Rate 80 80 Respiratory Rate 17 22 Blood Pressure 109/56 L 99/51 L Pulse Oximetry 90 L 95 89 L 02/17/18 05:31 02/17/18 05:45 02/17/18 06:00 Temperature Pulse Rate 80 80 80 Respiratory Rate 18 27 H 25 H Blood Pressure 113/56 L 126/61 116/54 L Pulse Oximetry 90 L 90 L 93 L 02/17/18 06:17 02/17/18 06:30 02/17/18 06:45 Temperature Pulse Rate 80 80 80 Respiratory Rate 34 H 11 L 26 H Blood Pressure 113/56 L 118/58 L 106/54 L Pulse Oximetry 92 L 96 94 L 02/17/18 08:20 02/17/18 09:20 02/17/18 10:10 Temperature Pulse Rate Respiratory Rate 25 H Blood Pressure Pulse Oximetry 100 100 100 Intake & Output 02/16/18 02/17/18 02/17/18 18:59 06:59 18:59 Intake Total 700 / 700 600 / 600 Output Total 1200 / 1200 Balance -500 / -500 600 / 600 Weight 94 kg Intake: IV 100 / 100 Maxipime Inj 1,000 MG In NS Inj 100 / 100 100 ML @ 200 mls/hr IV.SIG Q24H [facility] Rx#:[id number] Oral 600 / 600 600 / 600 Output: Hemodialysis Amount 1200 / 1200 Other: Date of Last Bowel Movement 02/15/18 02/17/18 Assessment and Plan - Assessment (1) Atrial fibrillation with rapid ventricular response Code(s): I48.91 - Unspecified atrial fibrillation Status: Acute (2) CHF (congestive heart failure) Code(s): I50.9 - Heart failure, unspecified Status: Acute (3) Chronic kidney disease with end stage renal failure on dialysis Code(s): N18.6 - End stage renal disease; Z99.2 - Dependence on renal dialysis Status: Acute (4) Atrial fibrillation with RVR Code(s): I48.91 - Unspecified atrial fibrillation Status: Acute (5) ESRD (end stage renal disease) on dialysis Code(s): N18.6 - End stage renal disease; Z99.2 - Dependence on renal dialysis Status: Acute - Plan 1.) Afib with rvr - s/p ablation and micra placement 02/02/18 due to failure of medical management for rate control, d/w patient, inr therapeutic, hgb stable, rate controlled, inr=1.9 and hgb = 9.8 02/16/18, low risk to hold coumadin x 7 days for bronchoscopy with biopsy, d/w nurse at bedside 2.) CAD - continue, lipitor, low risk to hold coumadin to hold for bronchoscopy , has hemoptyis which is improving, hgb=9.3 02/17/18, f/u inr and cbc in am (2) CHF (congestive heart failure) Qualifiers: Qualified Code(s): I50.9 - Heart failure, unspecified
--- NOTE | 2018-02-17 12:35 | P.PNPAL ---
Reason for Visit Reason for visit: a. To assist with evaluation and management of symptoms including: Dyspnea, anxiety b. To assist medical decision maker(s) with: better understanding of current medical conditions; weighing benefits/burdens of medical treatment options; making medical treatment decisions. Subjective Subjective/Interval History: Patient seen today for follow-up on symptom management of dyspnea, anxiety and goals of medical care. Patient underwent bronchoscopy this morning however previously planned biopsy was unable to be completed due to excessive pulmonary edema, therapeutic INR with increased risk of bleeding and risk of pneumothorax. The patient remains intubated status post bronchoscopy on 65% FiO2, PEEP 10, saturating adequately. Cytology is pending. Pneumonia was noted during bronchoscopy. He remains on cefepime for Klebsiella pneumonia per culture and sensitivity. Patient is unable to quantify or qualify his dyspnea due to intubation and sedation. He is sedated on propofol, but arouses to minimal stimulation with anxiety and agitation. He is borderline hypotensive making the titration of sedation difficult. Patient is unable to quantify or qualify his anxiety that is. 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 . Family/Friend Interactions: Spoke with his daughter, Dinorah Greer, at bedside who flew in from [place] last night. She is the patient's healthcare surrogate. Reviewed findings of bronchoscopy, estimated return time of cytology cultures, current treatment therapies, risks for further complications secondary to his moderately severe pulmonary hypertension, moderate tricuspid regurgitation and risk for further right heart failure compromise. As she has a prior working history as a respiratory therapist she has some understanding of the process. We reviewed the possibility of tracheostomy and PEG placement if unable to wean and she states that she would be in favor of trach/PEG placement. In previous conversations with the patient, he had also expressed similar goals to me. Dinorah is in frequent conversations with the extended family to keep them updated. . Advance Directives Health Care Surrogate: Copy in medical record Advance Directives Date on File: 02/02/18 Health Care Surrogate Name and Number: daughter Dinorah Greer Objective Vital Signs: Vital Signs 02/16/18 12:00 02/16/18 12:15 02/16/18 12:30 Temperature Pulse Rate 80 80 80 Respiratory Rate 30 H 20 15 Blood Pressure 87/47 L 85/49 L 88/50 L Pulse Oximetry 96 97 98 02/16/18 12:45 02/16/18 13:00 02/16/18 13:15 Temperature Pulse Rate 80 80 80 Respiratory Rate 21 21 26 H Blood Pressure 90/50 L 94/51 L 91/53 L Pulse Oximetry 94 L 94 L 94 L 02/16/18 13:30 02/16/18 13:45 02/16/18 14:00 Temperature Pulse Rate 80 80 80 Respiratory Rate 22 19 16 Blood Pressure 96/53 L 90/44 L 92/50 L Pulse Oximetry 94 L 98 97 02/16/18 14:15 02/16/18 14:30 02/16/18 14:46 Temperature Pulse Rate 80 80 80 Respiratory Rate 35 H 29 H 25 H Blood Pressure 96/53 L 96/52 L 88/44 L Pulse Oximetry 93 L 91 L 97 02/16/18 15:00 02/16/18 15:15 02/16/18 15:30 Temperature Pulse Rate 80 80 80 Respiratory Rate 37 H 22 25 H Blood Pressure 86/48 L 89/50 L 83/48 L Pulse Oximetry 97 96 99 02/16/18 15:45 02/16/18 16:00 02/16/18 16:59 Temperature Pulse Rate 80 80 80 Respiratory Rate 27 H 34 H 18 Blood Pressure 84/48 L 88/48 L Pulse Oximetry 94 L 92 L 02/16/18 18:00 02/16/18 18:59 02/16/18 19:05 Temperature Pulse Rate 80 Respiratory Rate 16 Blood Pressure Pulse Oximetry 90 L 02/16/18 20:00 02/16/18 21:15 02/16/18 21:30 Temperature 99.1 F Pulse Rate 80 80 80 Respiratory Rate 16 23 33 H Blood Pressure 95/41 L 91/51 L 77/36 L Pulse Oximetry 98 96 90 L 02/16/18 21:31 02/16/18 21:45 02/16/18 22:00 Temperature Pulse Rate 80 80 80 Respiratory Rate 24 29 H 21 Blood Pressure 100/53 L 102/50 L 105/52 L Pulse Oximetry 91 L 81 L 95 02/16/18 22:15 02/16/18 22:30 02/16/18 22:45 Temperature Pulse Rate 80 80 80 Respiratory Rate 24 38 H 27 H Blood Pressure 103/52 L 100/54 L 99/54 L Pulse Oximetry 96 91 L 95 02/16/18 23:00 02/16/18 23:15 02/16/18 23:30 Temperature Pulse Rate 80 80 80 Respiratory Rate 25 H 29 H 32 H Blood Pressure 103/54 L 103/53 L 117/56 L Pulse Oximetry 97 91 L 93 L 02/16/18 23:45 02/17/18 00:00 02/17/18 00:15 Temperature 98.3 F Pulse Rate 80 80 80 Respiratory Rate 34 H 25 H 25 H Blood Pressure 115/56 L 101/55 L 101/52 L Pulse Oximetry 94 L 95 93 L 02/17/18 00:30 02/17/18 00:45 02/17/18 01:00 Temperature Pulse Rate 80 80 80 Respiratory Rate 12 19 13 Blood Pressure 113/54 L 97/56 L 104/55 L Pulse Oximetry 100 100 100 02/17/18 01:15 02/17/18 01:30 02/17/18 01:45 Temperature Pulse Rate 80 80 80 Respiratory Rate 13 14 13 Blood Pressure 100/51 L 104/53 L 108/54 L Pulse Oximetry 100 99 100 02/17/18 02:00 02/17/18 02:15 02/17/18 02:30 Temperature Pulse Rate 80 80 80 Respiratory Rate 13 13 13 Blood Pressure 92/51 L 89/51 L 97/50 L Pulse Oximetry 100 100 100 02/17/18 02:45 02/17/18 03:00 02/17/18 03:15 Temperature Pulse Rate 80 80 80 Respiratory Rate 24 38 H 46 H Blood Pressure 98/53 L 118/56 L 106/54 L Pulse Oximetry 81 L 99 100 02/17/18 03:30 02/17/18 03:45 02/17/18 04:00 Temperature Pulse Rate 80 80 80 Respiratory Rate 28 H 19 20 Blood Pressure 105/56 L 100/54 L 102/53 L Pulse Oximetry 100 100 72 L 02/17/18 04:15 02/17/18 04:30 02/17/18 04:45 Temperature Pulse Rate 80 80 80 Respiratory Rate 25 H 36 H 20 Blood Pressure 102/57 L 93/54 L 98/53 L Pulse Oximetry 81 L 81 L 85 L 02/17/18 05:00 02/17/18 05:15 08/21/18 05:29 Temperature Pulse Rate 80 80 Respiratory Rate 17 22 Blood Pressure 109/56 L 99/51 L Pulse Oximetry 90 L 95 89 L 02/17/18 05:31 02/17/18 05:45 02/17/18 06:00 Temperature Pulse Rate 80 80 80 Respiratory Rate 18 27 H 25 H Blood Pressure 113/56 L 126/61 116/54 L Pulse Oximetry 90 L 90 L 93 L 02/17/18 06:17 02/17/18 06:30 02/17/18 06:45 Temperature Pulse Rate 80 80 80 Respiratory Rate 34 H 11 L 26 H Blood Pressure 113/56 L 118/58 L 106/54 L Pulse Oximetry 92 L 96 94 L 02/17/18 08:20 02/17/18 09:20 02/17/18 10:10 Temperature Pulse Rate Respiratory Rate 25 H Blood Pressure Pulse Oximetry 100 100 100 Intake & Output 02/16/18 02/17/18 02/17/18 18:59 06:59 18:59 Intake Total 700 / 700 600 / 600 Output Total 1200 / 1200 Balance -500 / -500 600 / 600 Weight 207 lb 3.752 oz Intake: IV 100 / 100 Maxipime Inj 1,000 MG In NS Inj 100 / 100 100 ML @ 200 mls/hr IV.SIG Q24H PEDRO Rx#:[id number] Oral 600 / 600 600 / 600 Output: Hemodialysis Amount 1200 / 1200 Other: Date of Last Bowel Movement 02/15/18 02/17/18 Physical Exam: CONSTITUTIONAL/GENERAL: This is an adequately nourished patient, intubated, sedated, in no apparent distress. NECK: Trachea midline. Supple, nontender. Orally intubated. CARDIOVASCULAR: regular rhythm, paced rate 80, 2/6 systolic ejection murmur, no rub no gallop. RESPIRATORY/CHEST: Diminished breath sounds with bibasilar crackles, no accessory muscle use, faint wheezing, no rhonchi. GASTROINTESTINAL: Abdomen soft, non-tender, nondistended. No hepato-splenomegaly , or palpable masses. No guarding. Bowel sounds present. MUSCULOSKELETAL: Extremities without clubbing, cyanosis, or edema. No joint tenderness or effusion noted. No calf tenderness. No mottling or clubbing. NEUROLOGICAL: Intubated, sedated, easily arousable, agitated with arousal. PSYCHIATRIC: Sedated . Diagnostic Tests Laboratory: Laboratory Results - last 72 hr 02/12/18 02/14/18 02/14/18 13:22 12:29 18:07 WBC RBC Hgb Hct MCV MCH MCHC RDW Plt Count MPV Prelim Diff (Auto) Neut % (Auto) Lymph % (Auto) [place] % (Auto) Eos % (Auto) Baso % (Auto) Neut # (Auto) Lymph # (Auto) [place] # (Auto) Eos # (Auto) Baso # (Auto) WBC Differential Diff Scan Differential Comment Platelet Estimate Platelet Morphology Ovalocytes Acanthocytes (Spur) Rouleaux Keratocytes PT INR Puncture Site Patient Temperature O2 Saturation ABG pH ABG pCO2 ABG pO2 ABG HCO3 ABG O2 Content ABG Base Excess ABG Methemoglobin Eligio Test Hemoglobin Carboxyhemoglobin O2 Delivery Device Liter Flow Inspired O2 Critical Value Sodium Potassium Chloride Carbon Dioxide Anion Gap BUN Creatinine Estimated GFR POC Glucose 141 H 292 H Random Glucose Calcium Phosphorus Magnesium Total Bilirubin AST ALT Alkaline Phosphatase Total Protein Albumin Anti-Proteinase 3 Less than 1.0 Anti-Myeloperoxidase Less than 1.0 Glomerular Base Mem IgG <1.0 02/14/18 02/15/18 02/15/18 19:50 04:17 04:17 WBC 10.0 RBC 3.35 L Hgb 9.9 L Hct 29.9 L MCV 89.5 MCH 29.5 MCHC 33.0 RDW 21.6 H Plt Count 74 L MPV 9.9 Prelim Diff (Auto) Slide review pending Neut % (Auto) 95.0 H Lymph % (Auto) 1.9 L Rosebud % (Auto) 2.7 Eos % (Auto) 0.0 Baso % (Auto) 0.4 Neut # (Auto) 9.5 H Lymph # (Auto) 0.2 L [place] # (Auto) 0.3 Eos # (Auto) 0.0 Baso # (Auto) 0.0 WBC Differential . Diff Scan Auto diff confirmed Differential Comment . Platelet Estimate Low L Platelet Morphology Normal Ovalocytes 1+ H Acanthocytes (Spur) 1+ H Rouleaux Keratocytes Occ H PT 17.9 H INR 1.8 Puncture Site Patient Temperature O2 Saturation ABG pH ABG pCO2 ABG pO2 ABG HCO3 ABG O2 Content ABG Base Excess ABG Methemoglobin Eligio Test Hemoglobin Carboxyhemoglobin O2 Delivery Device Liter Flow Inspired O2 Critical Value Sodium Potassium Chloride Carbon Dioxide Anion Gap BUN Creatinine Estimated GFR POC Glucose 382 H Random Glucose Calcium Phosphorus Magnesium Total Bilirubin AST ALT Alkaline Phosphatase Total Protein Albumin Anti-Proteinase 3 Anti-Myeloperoxidase Glomerular Base Mem IgG 02/15/18 02/15/18 02/15/18 04:17 08:00 12:17 WBC RBC Hgb Hct MCV MCH MCHC RDW Plt Count MPV Prelim Diff (Auto) Neut % (Auto) Lymph % (Auto) Rosebud % (Auto) Eos % (Auto) Baso % (Auto) Neut # (Auto) Lymph # (Auto) [place] # (Auto) Eos # (Auto) Baso # (Auto) WBC Differential Diff Scan Differential Comment Platelet Estimate Platelet Morphology Ovalocytes Acanthocytes (Spur) Rouleaux Keratocytes PT INR Puncture Site Patient Temperature O2 Saturation ABG pH ABG pCO2 ABG pO2 ABG HCO3 ABG O2 Content ABG Base Excess ABG Methemoglobin Eligio Test Hemoglobin Carboxyhemoglobin O2 Delivery Device Liter Flow Inspired O2 Critical Value Sodium 136 Potassium 5.0 Chloride 96 L Carbon Dioxide 25.4 Anion Gap 15 BUN 108 H Creatinine 7.22 H Estimated GFR 8 L POC Glucose 167 H 251 H Random Glucose 96 D Calcium 8.6 Phosphorus 4.3 Magnesium 2.6 H Total Bilirubin 1.2 H AST 35 ALT 43 Alkaline Phosphatase 109 Total Protein 6.2 L Albumin 2.9 L Anti-Proteinase 3 Anti-Myeloperoxidase Glomerular Base Mem IgG 02/15/18 02/15/18 02/16/18 17:36 19:29 03:50 WBC RBC Hgb Hct MCV MCH MCHC RDW Plt Count MPV Prelim Diff (Auto) Neut % (Auto) Lymph % (Auto) Rose[place] % (Auto) Eos % (Auto) Baso % (Auto) Neut # (Auto) Lymph # (Auto) [place] # (Auto) Eos # (Auto) Baso # (Auto) WBC Differential Diff Scan Differential Comment Platelet Estimate Platelet Morphology Ovalocytes Acanthocytes (Spur) Rouleaux Keratocytes PT 19.7 H INR 1.9 Puncture Site Patient Temperature O2 Saturation ABG pH ABG pCO2 ABG pO2 ABG HCO3 ABG O2 Content ABG Base Excess ABG Methemoglobin Eligio Test Hemoglobin Carboxyhemoglobin O2 Delivery Device Liter Flow Inspired O2 Critical Value Sodium Potassium Chloride Carbon Dioxide Anion Gap BUN Creatinine Estimated GFR POC Glucose 362 H 273 H Random Glucose Calcium Phosphorus Magnesium Total Bilirubin AST ALT Alkaline Phosphatase Total Protein Albumin Anti-Proteinase 3 Anti-Myeloperoxidase Glomerular Base Mem IgG 02/16/18 02/16/18 02/16/18 03:50 03:50 21:05 WBC 11.4 H RBC 3.31 L Hgb 9.5 L Hct 29.8 L MCV 89.9 MCH 28.8 MCHC 32.1 RDW 21.8 H Plt Count 73 L MPV 10.6 Prelim Diff (Auto) Slide review pending Neut % (Auto) 96.0 H Lymph % (Auto) 1.3 L [place] % (Auto) 2.6 Eos % (Auto) 0.0 Baso % (Auto) 0.1 Neut # (Auto) 11.0 H Lymph # (Auto) 0.1 L [place] # (Auto) 0.3 Eos # (Auto) 0.0 Baso # (Auto) 0.0 WBC Differential . Diff Scan Auto diff confirmed Differential Comment . Platelet Estimate Platelet Morphology Ovalocytes 1+ H Acanthocytes (Spur) Occ H Rouleaux Keratocytes PT INR Puncture Site Patient Temperature O2 Saturation ABG pH ABG pCO2 ABG pO2 ABG HCO3 ABG O2 Content ABG Base Excess ABG Methemoglobin Eligio Test Hemoglobin Carboxyhemoglobin O2 Delivery Device Liter Flow Inspired O2 Critical Value Sodium 137 Potassium 5.2 H Chloride 97 L Carbon Dioxide 25.7 Anion Gap 14 BUN 135 H Creatinine 8.31 H Estimated GFR 6 L POC Glucose 356 H Random Glucose 97 Calcium 8.6 Phosphorus 4.8 Magnesium 2.6 H Total Bilirubin 1.1 H AST 34 ALT 45 Alkaline Phosphatase 110 Total Protein 6.1 L Albumin 2.8 L Anti-Proteinase 3 Anti-Myeloperoxidase Glomerular Base Mem IgG 02/16/18 02/17/18 02/17/18 22:45 04:47 06:17 WBC RBC Hgb Hct MCV MCH MCHC RDW Plt Count MPV Prelim Diff (Auto) Neut % (Auto) Lymph % (Auto) [place] % (Auto) Eos % (Auto) Baso % (Auto) Neut # (Auto) Lymph # (Auto) [place] # (Auto) Eos # (Auto) Baso # (Auto) WBC Differential Diff Scan Differential Comment Platelet Estimate Platelet Morphology Ovalocytes Acanthocytes (Spur) Rouleaux Keratocytes PT 25.1 H INR 2.5 Puncture Site Right radial Patient Temperature 98.6 O2 Saturation 86 L* ABG pH 7.43 H ABG pCO2 42 ABG pO2 60 L ABG HCO3 27 H ABG O2 Content 11.1 L ABG Base Excess 2.9 H ABG Methemoglobin 1.6 Eligio Test Present Hemoglobin 9.1 L Carboxyhemoglobin 3.0 O2 Delivery Device Hfnc Liter Flow 40.00 Inspired O2 100 Critical Value Yes Sodium Potassium Chloride Carbon Dioxide Anion Gap BUN Creatinine Estimated GFR POC Glucose 364 H Random Glucose Calcium Phosphorus Magnesium Total Bilirubin AST ALT Alkaline Phosphatase Total Protein Albumin Anti-Proteinase 3 Anti-Myeloperoxidase Glomerular Base Mem IgG 02/17/18 02/17/18 06:17 06:17 WBC 7.6 RBC 3.21 L Hgb 9.3 L Hct 29.3 L MCV 91.3 MCH 29.1 MCHC 31.9 L RDW 22.0 H Plt Count 61 L MPV 11.0 Prelim Diff (Auto) Slide review pending Neut % (Auto) 94.1 H Lymph % (Auto) 2.8 L [place] % (Auto) 2.9 Eos % (Auto) 0.0 Baso % (Auto) 0.2 Neut # (Auto) 7.2 Lymph # (Auto) 0.2 L [place] # (Auto) 0.2 Eos # (Auto) 0.0 Baso # (Auto) 0.0 WBC Differential . Diff Scan Auto diff confirmed Differential Comment . Platelet Estimate Low L Platelet Morphology Normal Ovalocytes 1+ H Acanthocytes (Spur) Occ H Rouleaux Present H Keratocytes PT INR Puncture Site Patient Temperature O2 Saturation ABG pH ABG pCO2 ABG pO2 ABG HCO3 ABG O2 Content ABG Base Excess ABG Methemoglobin Eligio Test Hemoglobin Carboxyhemoglobin O2 Delivery Device Liter Flow Inspired O2 Critical Value Sodium 139 Potassium 5.0 Chloride 98 Carbon Dioxide 28.0 Anion Gap 13 BUN 89 H Creatinine 6.32 H Estimated GFR 9 L POC Glucose Random Glucose 138 H Calcium 8.5 Phosphorus Magnesium 2.6 H Total Bilirubin 1.6 H AST 37 ALT 43 Alkaline Phosphatase 107 Total Protein 6.0 L Albumin 2.7 L Anti-Proteinase 3 Anti-Myeloperoxidase Glomerular Base Mem IgG Result Diagrams: 02/17/18 06:17 02/17/18 06:17 Microbiology: Microbiology 02/09/18 10:30 Sputum - Expectorated Sputum Gram Stain - Final 02/09/18 10:30 Sputum - Expectorated Sputum Sputum Culture - Final Klebsiella pneumoniae 01/24/18 13:40 Sputum - Expectorated Sputum Gram Stain - Final 01/24/18 13:40 Sputum - Expectorated Sputum Sputum Culture - Final Heavy growth normal respiratory marielos Imaging: Chest X-Ray 01/15/18 18:13 CONCLUSION: Mild interstitial prominence without focal airspace opacities. Slight improvement prior 12/12/2017. Stable cardiomegaly. Chest X-Ray 01/23/18 09:37 CONCLUSION: Mild interval increase in interstitial opacities of concern for pulmonary edema. Abdomen X-Ray 01/23/18 23:05 CONCLUSION: 1. Nonobstructive bowel gas pattern. Chest X-Ray 01/24/18 08:50 CONCLUSION: No appreciable change. Chest X-Ray 01/25/18 09:25 CONCLUSION: No significant change. Chest X-Ray 01/29/18 09:48 CONCLUSION: 1. Stable cardiomegaly and mild positive fluid balance. 2. No significant interval change. Chest CTA 01/30/18 00:00 CONCLUSION: 1. No evidence of pulmonary embolus. 2. Severe bilateral pulmonary parenchymal opacity with predominance at the dependent portions of the lungs. Difficult diagnosis includes pulmonary edema and infection. 3. Elongated lobulated nodular density in the right midlung following the major fissure likely represents loculated pleural effusion. 4. Enlarged pulmonary arteries suggesting pulmonary arterial hypertension. 5. Enlarged heart and small pericardial effusion. 6. Small left than right pleural effusions. 7. Mildly enlarged mediastinal lymph nodes, likely reactive. Chest X-Ray 02/04/18 00:00 CONCLUSION: 1. Patchy infiltrates bilaterally consistent with moderate pulmonary edema versus pneumonia. Clinical correlation is recommended. 2. Cardiomegaly. 3. Tiny bilateral pleural effusions. Chest X-Ray 02/09/18 08:04 CONCLUSION: 1. Cardiomegaly with interstitial edema. 2. Mild airspace disease in the right lung base, presumably atelectasis. Chest X-Ray 02/12/18 00:00 CONCLUSION: Stable chest x-ray with enlarged cardiac silhouette with bilateral diffuse interstitial process. Although nonspecific the changes could be related to pulmonary edema. Chest X-Ray 02/15/18 06:00 CONCLUSION: Cardiomegaly. Diffuse increased interstitial markings likely related to diffuse processes such as edema. Possible mild right pleural effusion. Chest X-Ray 02/16/18 06:00 CONCLUSION: Worsening bilateral pulmonary infiltrates. Radiographic pattern suggesting pulmonary edema. Chest X-Ray 02/17/18 00:00 CONCLUSION: 1. Endotracheal tube in appropriate position with tip measuring 6.5 cm from the cam. 2. Stable severe bilateral interstitial opacity and airspace consolidation. Procedures: 01/26/18: Cardiac catheterization 02/02/18: Cardiac catheterization: Insertion of Medtronic Micra and AV gilbert ablation 02/17/2018: Bronchoscopy without biopsy . 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 Spiritual:Board Writer available. Legal:His daughter, Dinorah Greer, is his healthcare decision maker/HCS. Ethical issues impacting care: None noted. Important Contacts: Daughter: Dinorah Greer (Cindy) . Prognosis: His prognosis is poor. He has significant hypoxic lung disease/respiratory failure, end-stage renal disease, diabetes, hypertension and is at risk for further complications and decline. He is likely terminal, and would be appropriate for hospice his goals were to comfort oriented. . Code Status: Full Code Plan: PLAN: FULL CODE, confirmed with patient again 02/09/18 DECISION-MAKING: The patient is currently not capacitated to make his own decisions, as he is intubated and sedated, however, previously requested assisted decision making with his daughter, Dinorah Greer (Cindy). He has chosen her to be his HCS. GOALS: Aggressive. Patient states he does not want to sign a DNR and would accept mechanical ventilation if required. SYMPTOMS: * Anxiety: Partially attenuated by sedation, but arousable with minimal stimulation, becoming agitated and anxious. 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 He is currently intubated and sedated, status post bronchoscopy. Ventilator weaning is in progress, however the daughter is aware of his fragile respiratory status and states that she would agree trach/PEG to attempt further weaning, if unable to be extubated. Palliative care will continue to follow the patient during hospitalization. . Attestation Attestation: To help prompt me to consider important information that might be impacting today's encounter and assessment, information from prior notes written by myself or my colleagues may have been "brought forward" into today's note. My signature on this note, however, is an attestation that I personally performed the exam, history, and/or decision-making noted today, and, unless otherwise indicated, the interactions with patient, family, and staff as well as the review of records all occurred today. I also attest that the listed assessment and stated plan reflect my best clinical judgment today based on the combination of historical information, prior notes, and today's exam/ interactions. When time spent is documented, it refers only to time spent today by the signer, or if indicated, combined time spent today by collaborating physician/nurse practitioner. .
[2018-02-17] MEDS: Oral Hygiene Kit OROPHARYNG SCH ×2 (16:40→20:17)
--- NOTE | 2018-02-17 18:23 | MP ---
cc: Teresa Moore MD DATE OF OPERATION: 02/17/2018 PROCEDURE PERFORMED: Fiberoptic bronchoscopy, flexible REASON FOR PROCEDURE: Hemoptysis, pneumonia, rule out underlying malignancy, rule out underlying infection. DESCRIPTION OF PROCEDURE: Fiberoptic bronchoscopy performed via endotracheal tube. Vocal cords not visualized. Trachea mildly hyperemic. Nicole sharp. Right main stem bronchus, right upper, middle and lower lobe, left main bronchus, left upper and lower lobes inspected. No obstructive pathology or mass lesions seen. Heme throughout the tracheobronchial tree with some clotting noted. All removed. Washings of both sides of the tracheobronchial tree obtained for routine TB, fungal culture as well as cytological exam. Cytologic brush biopsy, right lower lung, obtained as well for somewhat modest notable hyperemia and sent for cytological exam. Procedure well tolerated. IMPRESSION: 1. Mild to moderate tracheobronchitis. 2. Heme throughout the tracheobronchial tree, no active bleeding. 3. Samples obtained as above. 4. Procedure well tolerated. 5. The patient transferred to recovery in stable condition. MD MAT Ribeiro/alea , 06:03 PM , 06:08 PM
[2018-02-17] MEDS: Chlorhexidine 0.12% Oral Kit 15 ML UDC OROPHARYNG SCH (22:55)
[2018-02-18] MEDS: Budesonide-Formoterol 160/4.5 MCG 6 GM Inhaler INH SCH ×3 (01:02→20:38)
[2018-02-18] MEDS: Oral Hygiene Kit OROPHARYNG SCH ×4 (01:02→15:58)
[2018-02-18 04:39] LABS: ABG Base Excess -0.8 mmol/L (-2-2); ABG PCO2 44 mmHg (38-42); ABG PO2 86 mmHG (61-120)
[2018-02-18] MEDS: Clotrimazole 10 MG Troche BUCCAL SCH ×5 (05:29→22:54)
[2018-02-18 06:20] LABS: Baso % (Auto) 0.2 % (0.0-2.0); Eos % (Auto) 0.5 % (0.0-4.0); Hemoglobin 9.3 gm/dL (13.0-17.0); Lymph # (Auto) 0.5 th/mm3 (1.0-4.8); Lymph % (Auto) 6.1 % (9.0-44.0); Mean Corpuscular HGB Conc 31.9 % (32.0-36.0); Mean Corpuscular Hemoglobin 29.4 pg (27.0-34.0); Mean Corpuscular Volume 92.1 fL (80.0-100.0); Mean Platelet Volume 11.1 fL (7.0-11.0); Mono # (Auto) 0.2 th/mm3 (0.0-0.9); Mono % (Auto) 1.9 % (0.0-8.0); Neut # (Auto) 7.9 th/mm3 (1.8-7.7); Neut % (Auto) 91.3 % (16.0-70.0); Platelet Count 52 th/mm3 (150-450); Red Blood Count 3.15 mil/mm3 (4.50-5.90); Red Cell Distribution Width 21.7 % (11.6-17.2); White Blood Count 8.6 th/mm3 (4.0-11.0)
[2018-02-18 06:21] LABS: INR 2.1 Ratio
[2018-02-18 06:40] LABS: Alanine Aminotransferase 45 U/L (12-78); Albumin 2.7 g/dL (3.4-5.0); Anion Gap 15 meq/L (5-15); Aspartate Aminotransferase 30 U/L (15-37); Blood Urea Nitrogen 118 mg/dL (7-18); Calcium 8.3 mg/dL (8.5-10.1); Carbon Dioxide 24.3 meq/L (21.0-32.0); Chloride 99 meq/L (98-107); Glomerular Filtration Rate 7 mL/min (>89); Glucose,Random 147 mg/dL (74-106); Magnesium 2.7 mg/dL (1.5-2.5); Potassium 5.6 meq/L (3.5-5.1); Sodium 138 meq/L (136-145)
[2018-02-18 06:42] LABS: Alkaline Phosphatase 109 U/L (45-117); Total Protein 6.1 g/dL (6.4-8.2)
[2018-02-18 07:38] LABS: ABG PCO2 61 mmHg (38-42)
[2018-02-18 07:39] LABS: ABG Base Excess 1.4 mmol/L (-2-2); ABG PO2 258 mmHg (60-120)
[2018-02-18 08:03] LABS: Acanthocytes 1+
[2018-02-18 08:05] LABS: Ovalocytes 1+; Platelet Morphology Normal (Normal)
[2018-02-18] MEDS: Chlorhexidine 0.12% Oral Kit 15 ML UDC OROPHARYNG SCH ×2 (08:27→20:37)
[2018-02-18] MEDS: Calcium Acetate 667 MG Capsule PO SCH ×3 (08:27→18:41)
[2018-02-18] MEDS: Senna/Docusate Sodium 8.6/50 MG Tablet PO SCH ×2 (08:27→20:38)
[2018-02-18] MEDS: Heparin 10,000 UNITS/10 ML Vial (for IV use) OTHER PRN (08:44)
[2018-02-18] MEDS: Insulin NovoLIN Regular Correctional Sugar Inj SQ SCH ×4 (08:52→22:54)
[2018-02-18] MEDS: Insulin Detemir Inj 1,000 UNIT/10 ML Vial SQ SCH ×2 (08:53→22:54)
--- NOTE | 2018-02-18 09:11 | P.PN ---
Subjective Interval history: ON VENT SUPPORT POST BRONCHOSCOPY VSS Physical Exam Vital signs: Vital Signs 02/17/18 09:20 02/17/18 10:00 02/17/18 10:10 Temperature Pulse Rate 80 Respiratory Rate 25 H Blood Pressure Pulse Oximetry 100 100 02/17/18 10:11 02/17/18 10:15 02/17/18 10:26 Temperature Pulse Rate 80 80 80 Respiratory Rate 16 19 16 Blood Pressure 86/48 L 87/48 L 94/55 L Pulse Oximetry 100 100 100 02/17/18 10:30 02/17/18 10:45 02/17/18 11:00 Temperature Pulse Rate 80 80 80 Respiratory Rate 17 12 10 L Blood Pressure 95/53 L 93/54 L 88/52 L Pulse Oximetry 100 100 100 02/17/18 11:15 02/17/18 11:30 02/17/18 11:45 Temperature Pulse Rate 80 80 80 Respiratory Rate 11 L 14 19 Blood Pressure 92/53 L 93/55 L 95/55 L Pulse Oximetry 100 100 100 02/17/18 11:52 02/17/18 12:00 02/17/18 12:11 Temperature Pulse Rate 80 80 80 Respiratory Rate 20 23 19 Blood Pressure 90/55 L 90/52 L 90/52 L Pulse Oximetry 100 100 100 02/17/18 12:15 02/17/18 12:21 02/17/18 12:30 Temperature Pulse Rate 80 80 80 Respiratory Rate 18 16 24 Blood Pressure 81/43 L 82/45 L 94/51 L Pulse Oximetry 100 100 100 02/17/18 12:34 02/17/18 12:45 02/17/18 13:00 Temperature Pulse Rate 80 80 Respiratory Rate 25 H 14 13 Blood Pressure 93/52 L 85/50 L Pulse Oximetry 100 100 100 02/17/18 13:15 02/17/18 13:16 02/17/18 13:30 Temperature Pulse Rate 80 80 80 Respiratory Rate 14 16 15 Blood Pressure 83/47 L 82/50 L 85/50 L Pulse Oximetry 100 100 100 02/17/18 13:45 02/17/18 14:00 02/17/18 14:15 Temperature Pulse Rate 80 80 80 Respiratory Rate 15 20 18 Blood Pressure 87/52 L 89/50 L 93/54 L Pulse Oximetry 100 100 100 02/17/18 14:30 02/17/18 14:45 02/17/18 15:00 Temperature Pulse Rate 80 80 80 Respiratory Rate 16 13 13 Blood Pressure 91/54 L 88/52 L 86/47 L Pulse Oximetry 100 100 100 02/17/18 15:11 02/17/18 15:15 02/17/18 15:30 Temperature Pulse Rate 80 80 80 Respiratory Rate 14 20 13 Blood Pressure 83/48 L 83/48 L 90/53 L Pulse Oximetry 100 100 100 02/17/18 15:40 02/17/18 15:45 02/17/18 16:00 Temperature Pulse Rate 80 80 80 Respiratory Rate 20 23 20 Blood Pressure 100/55 L 97/52 L 85/49 L Pulse Oximetry 98 100 100 02/17/18 16:15 02/17/18 16:23 02/17/18 16:30 Temperature Pulse Rate 80 80 Respiratory Rate 20 23 25 H Blood Pressure 86/50 L 85/50 L Pulse Oximetry 100 100 100 02/17/18 16:45 02/17/18 17:00 02/17/18 17:13 Temperature Pulse Rate 80 80 80 Respiratory Rate 21 22 21 Blood Pressure 86/49 L 90/52 L 89/51 L Pulse Oximetry 100 100 100 02/17/18 17:15 02/17/18 17:30 02/17/18 18:00 Temperature Pulse Rate 80 80 80 Respiratory Rate 17 20 Blood Pressure 87/49 L 85/50 L Pulse Oximetry 100 100 02/17/18 18:15 02/17/18 18:30 02/17/18 18:45 Temperature Pulse Rate 80 80 80 Respiratory Rate 23 21 23 Blood Pressure 104/54 L 90/41 L 89/51 L Pulse Oximetry 93 L 99 100 02/17/18 19:00 02/17/18 19:15 02/17/18 19:20 Temperature Pulse Rate 80 80 Respiratory Rate 19 25 H 22 Blood Pressure 91/53 L 88/53 L Pulse Oximetry 100 100 100 02/17/18 19:30 02/17/18 19:45 02/17/18 20:00 Temperature Pulse Rate 80 80 80 Respiratory Rate 21 23 21 Blood Pressure 96/52 L 88/50 L 94/53 L Pulse Oximetry 99 100 100 02/17/18 20:15 02/17/18 20:30 02/17/18 20:45 Temperature Pulse Rate 80 80 80 Respiratory Rate 23 20 21 Blood Pressure 93/53 L 95/55 L 98/55 L Pulse Oximetry 100 100 100 02/17/18 21:00 02/17/18 21:15 02/17/18 21:30 Temperature Pulse Rate 80 80 80 Respiratory Rate 25 H 22 26 H Blood Pressure 97/55 L 110/54 L 101/53 L Pulse Oximetry 100 99 97 02/17/18 21:45 02/17/18 22:00 02/17/18 22:15 Temperature Pulse Rate 80 80 80 Respiratory Rate 20 20 21 Blood Pressure 92/54 L 88/53 L 83/49 L Pulse Oximetry 100 100 100 02/17/18 22:25 02/17/18 22:30 02/17/18 22:45 Temperature Pulse Rate 80 80 Respiratory Rate 23 23 23 Blood Pressure 90/53 L 90/53 L Pulse Oximetry 100 100 100 02/17/18 22:54 02/17/18 23:00 02/17/18 23:15 Temperature Pulse Rate 80 80 80 Respiratory Rate 22 21 20 Blood Pressure 87/53 L 95/50 L 90/52 L Pulse Oximetry 100 100 100 02/17/18 23:30 02/17/18 23:45 02/18/18 00:00 Temperature Pulse Rate 80 80 80 Respiratory Rate 23 18 21 Blood Pressure 88/51 L 97/54 L 91/55 L Pulse Oximetry 100 100 100 02/18/18 01:16 02/18/18 02:00 02/18/18 04:00 Temperature 98.9 F Pulse Rate 80 80 Respiratory Rate 23 22 Blood Pressure 92/50 L Pulse Oximetry 100 100 02/18/18 04:42 02/18/18 06:00 02/18/18 07:20 Temperature Pulse Rate 80 Respiratory Rate 23 24 Blood Pressure Pulse Oximetry 100 100 Intake & Output 02/17/18 02/18/18 02/18/18 18:59 06:59 18:59 Intake Total 700 / 700 Output Total 1625 / 1625 0 / 0 Balance -925 / -925 0 / 0 Weight 94 kg Intake: IV 100 / 100 Maxipime Inj 1,000 MG In NS Inj 100 / 100 100 ML @ 200 mls/hr IV.SIG Q24H [facility] Rx#:[id number] Oral 600 / 600 Oral Supplement 0 / 0 Output: Urine 425 / 425 Stool 0 / 0 0 / 0 Urine/Stool Mix 0 / 0 0 / 0 Hemodialysis Amount 1200 / 1200 Other: # Voids 3 # Incontinent Voids 0 Date of Last Bowel Movement 02/17/18 02/17/18 # Bowel Movements 0 0 # Incontinent Bowel Movements 0 0 Narrative: GENERAL: Frail, elderly. ON VENTILATOR HEENT: PERRL CARDIOVASCULAR: Paced rhythm. RESPIRATORY: bilateral wheezes, rhonchi GASTROINTESTINAL: Abdomen soft, non-tender, nondistended. Hepatic and splenic margins not palpable. Decreased bowel sounds. MUSCULOSKELETAL: Extremities without clubbing, cyanosis, mild edema. No obvious deformities. Cath site without hematoma. NEUROLOGICAL: Awake and alert. No obvious cranial nerve deficits. Results - Labs CBC & Chem 7: 02/18/18 05:20 02/18/18 05:20 Laboratory Results - last 24 hr 02/17/18 02/17/18 02/17/18 06:17 09:00 09:00 WBC RBC Hgb Hct MCV MCH MCHC RDW Plt Count MPV Prelim Diff (Auto) Neut % (Auto) Lymph % (Auto) [place] % (Auto) Eos % (Auto) Baso % (Auto) Neut # (Auto) Lymph # (Auto) [place] # (Auto) Eos # (Auto) Baso # (Auto) WBC Differential . Diff Scan Auto diff confirmed Differential Comment Platelet Estimate Low L Platelet Morphology Normal Ovalocytes 1+ H Acanthocytes (Spur) Occ H Rouleaux Present H PT INR Puncture Site Right radial Cancelled Patient Temperature 98.6 Cancelled O2 Saturation 96 Cancelled ABG pH 7.28 L* Cancelled ABG pCO2 61 H* Cancelled ABG pO2 258 H Cancelled ABG HCO3 28 H Cancelled ABG O2 Content 13.2 Cancelled ABG Base Excess 1.4 Cancelled ABG Methemoglobin 1.4 Cancelled Eligio Test Present Cancelled Hemoglobin 9.3 L Cancelled Carboxyhemoglobin 2.5 Cancelled O2 Delivery Device Ventilator Cancelled Liter Flow Cancelled Vent Setting 550/16/10peep Cancelled Inspired O2 100 Cancelled Critical Value Yes Cancelled Sodium Potassium Chloride Carbon Dioxide Anion Gap BUN Creatinine Estimated GFR POC Glucose Random Glucose Calcium Magnesium Total Bilirubin AST ALT Alkaline Phosphatase Total Protein Albumin 02/18/18 02/18/18 02/18/18 04:24 05:20 05:20 WBC 8.6 RBC 3.15 L Hgb 9.3 L Hct 29.0 L MCV 92.1 MCH 29.4 MCHC 31.9 L RDW 21.7 H Plt Count 52 L MPV 11.1 H Prelim Diff (Auto) Slide review pending Neut % (Auto) 91.3 H Lymph % (Auto) 6.1 L [place] % (Auto) 1.9 Eos % (Auto) 0.5 Baso % (Auto) 0.2 Neut # (Auto) 7.9 H Lymph # (Auto) 0.5 L [place] # (Auto) 0.2 Eos # (Auto) 0.0 Baso # (Auto) 0.0 WBC Differential . Diff Scan Auto diff confirmed Differential Comment . Platelet Estimate Low L Platelet Morphology Normal Ovalocytes 1+ H Acanthocytes (Spur) 1+ H Rouleaux PT 21.0 H INR 2.1 Puncture Site Right radial Patient Temperature 98.6 O2 Saturation 93 ABG pH 7.36 L ABG pCO2 44 H ABG pO2 86 ABG HCO3 24 ABG O2 Content 12.0 ABG Base Excess -0.8 ABG Methemoglobin 1.4 Eligio Test Present Hemoglobin 9.1 L Carboxyhemoglobin 2.7 O2 Delivery Device Ventilator Liter Flow Vent Setting Prvc20/550/0.8/+10 Inspired O2 35 Critical Value No Sodium Potassium Chloride Carbon Dioxide Anion Gap BUN Creatinine Estimated GFR POC Glucose Random Glucose Calcium Magnesium Total Bilirubin AST ALT Alkaline Phosphatase Total Protein Albumin 02/18/18 02/18/18 05:20 08:44 WBC RBC Hgb Hct MCV MCH MCHC RDW Plt Count MPV Prelim Diff (Auto) Neut % (Auto) Lymph % (Auto) [place] % (Auto) Eos % (Auto) Baso % (Auto) Neut # (Auto) Lymph # (Auto) [place] # (Auto) Eos # (Auto) Baso # (Auto) WBC Differential Diff Scan Differential Comment Platelet Estimate Platelet Morphology Ovalocytes Acanthocytes (Spur) Rouleaux PT INR Puncture Site Patient Temperature O2 Saturation ABG pH ABG pCO2 ABG pO2 ABG HCO3 ABG O2 Content ABG Base Excess ABG Methemoglobin Eligio Test Hemoglobin Carboxyhemoglobin O2 Delivery Device Liter Flow Vent Setting Inspired O2 Critical Value Sodium 138 Potassium 5.6 H Chloride 99 Carbon Dioxide 24.3 Anion Gap 15 BUN 118 H Creatinine 7.46 H Estimated GFR 7 L POC Glucose 129 H Random Glucose 147 H Calcium 8.3 L Magnesium 2.7 H Total Bilirubin 1.1 H AST 30 ALT 45 Alkaline Phosphatase 109 Total Protein 6.1 L Albumin 2.7 L Microbiology 02/17/18 07:55 Bronchial Washings - Bronchial Fungal Smear - Final No fungal elements seen 02/17/18 07:55 Bronchial - Bronchial Gram Stain - Final - Imaging Impressions Chest X-Ray 02/17/18 00:00 CONCLUSION: 1. Endotracheal tube in appropriate position with tip measuring 6.5 cm from the cam. 2. Stable severe bilateral interstitial opacity and airspace consolidation. Assessment and Plan - Plan RESPIRATORY FAILURE, ON VENT SUPPORT POST FIO2 35% hemoptysis pna/chf ENAL FAILURE ? COPD Chest pain CHF POST AV NODE ABLATION PULM HTN PLAN VENT SUPPORT BRONCHODILATOR THERAPY taper steroids THERAPY FOR PAH WEAN OFF VENT TOLERATED
--- NOTE | 2018-02-18 09:17 | XR ---
EXAM DATE: 02/18/2018 8:37 AM EDT AGE/SEX: 72 years / Male INDICATIONS: Shortness of breath. CLINICAL DATA: This is the patient's subsequent encounter. Patient reports that signs and symptoms h ave been present for 4 - 6 days and indicates a pain score of Nonresponsive. MEDICAL/SURGICAL HISTORY: Hypertension. Chronic obstructive pulmonary disease. Congestive hea rt failure. AFIB. . Central line. COMPARISON: [facility], CHEST 1V SINGLE AP, 02/17/2018. . FINDINGS: Endotracheal tube is stable in good position with tip about 6 cm above the cam. Nasogastric tube d escends into the stomach. Right chest dialysis catheter is stable in good position. There has been sl ight improvement in aeration with decrease in confluence of diffuse bilateral infiltrates and improve ment in lung volumes. Cardiac contours are grossly stable. CONCLUSION: Slight interval improvement in aeration Electronically signed by: Osmar Mar MD 02/18/2018 9:16 AM EDT
--- NOTE | 2018-02-18 09:40 | P.PNCC ---
Subjective Subjective Remarks/Hospital Course: This is a 72yM with history of ESRD on HD who was recently admitted last month for supraventricular tachycardia. It appears from the records that normal sinus rhythm was restored prior to discharge home. He re-presented to the hospital with atrial fibrillation with rapid ventricular response which has been poorly responsive to esmolol infusion. It is noted that there is still a shortage of diltiazem infusions, so none is available to place the patient on. Dr. Waters with cardiology was consulted, as was Dr. Weinberg. The patient has also had hypotension during this hospital stay with most blood pressure readings between 80-100 systolic. This morning, Bystolic was started and was given together with amiodarone 400mg and metoprolol 25mg po. Approximately 2 hours after this, his blood pressure dropped into the 60s and 70s systolic. I was consulted by Dr. Wilcox to evaluate and manage his hemodynamics in the setting of poorly-controlled atrial fibrillation and hypotension. The patient does complain of light-headedness and a little chest discomfort which is new since his blood pressure has dropped into the 70s. He denies any other complaints and tolerated breakfast this AM. ROS otherwise negative. troponins have been serially negative this admission. I performed bedside critical care echocardiography and compared this to images obtained from last hospital admission on 11/2017. Given the poorly controlled nature of the patient's rate, wall motion and accurate ejection fraction are difficult to assess with accuracy. It does appear that the patient has relatively preserved EF and at most only mildly depressed LVEF. Aortic valve is sclerotic but appears unchanged from prior echo which calculated the valve area at ~2cm. no pericardial effusion. IVC is dilated around 2cm without respiratory variation. heart rate on my evaluation is 121. 8/2: Critical care reconsulted by Dr. Weinberg for worsening respiratory failure. Patient dropped O2 sats to 84% on 6 L nasal cannula. When I evaluated patient he was resting in bed. Placed him on high flow nasal cannula 30 L/min 60% FiO2 with which his O2 sats came up to 90%. 01/30: Remains on high flow nasal cannula. CT chest negative for PE shows consolidation bilateral lower lobes and a loculated effusion on the right. Defer to pulmonary regarding further recommendations. 01/31: Remains on high flow nasal cannula. Being dialyzed currently. On 30 L/ min 60% FiO2. O2 sats 96%. Feels that he is breathing a little better. 02/01, 02/02: On high flow nasal cannula at 20 L/min 50% FiO2. Shortness of breath gradually improving. 02/03: On high flow nasal cannula 20 L/min 60% FiO2. Underwent mitral implantation and AV gilbert ablation yesterday by Dr. Weinberg. Sitting up in bed today. Appears comfortable not in any acute distress. 02/04 Patient 02/04 Patient is awake and alert on high flow oxygen 25L with 70% FIO2> Afebrile. For HD today 02/05 No events overnight. s/p HD yesterday with removal 5L. Afebrile. On 25L with FIO2 down to 50% 02/06 Patient remains on high flow oxygen with 25L 55%FIO2. Afebrile. 02/07 Patient s/p HD yesterday with removal 4.5L. Remains on high flow oxygen 25L with 50% FIO2. Afebrile. 02/08 Patient s/p HD yesterday with removal 3L. On high flow oxygen. Afebrile. 02/09 Patient remains on high flow oxygen 25L with 55% FIO2. Afebrile. For HD today 02/10 Patient is awake and alert. s/p HD yesterday with removal 3L. On 30L with 60% FIO2. Afebrile. 02/11 Patient is n 30L with 55% FIO2. Afebrile. 02/12: Patient remains on high flow nasal cannula. Very tired. Afebrile. Tolerating diet. 02/13: Hemodialysis is remained level. Unable to take fluid off due to hypotension. Remains on high flow nasal cannula 30 L 60% FiO2. Tolerating diet. Weak. 02/14: Afebrile. Remains on high flow nasal cannula at 35 L 60%. Plan for bronchoscopy with Dr. Moore on Friday. 02/15: Afebrile. Disconnect oxygen desaturation. Currently on high flow nasal cannula 40 L at 80%. Will recheck chest x-ray in a.m. Hemoptysis present but not as copious as before previously. 02/16: Worsening O2 requirements over the night, currently on FiO2 of 1 45 L/min high flow nasal cannula. Patient remains awake and conversant, still with some hemoptysis. Bronchoscopy scheduled for Friday. T-max of 98.5. 8/21: No events over the night. Patient remains on high flow nasal cannula at 100%. This morning patient underwent bronchoscopy without biopsy and postprocedure patient remained intubated. Results of bronchoscopy not known at this time. T-max of 99.1, urine output over the last 24 hours 1200 mL's. SUBJECTIVE: 02/18: No events over the night. Patient remains intubated and sedated. Significant improvement in O2 requirements, currently on 35% O2 and PEEP of 10. T-max of 98.9, urine output over the last 24 hours 1625 mL's. ROS - unobtainable, patient is intubated Objective Vital Signs / I&O: Vital Signs 02/17/18 10:00 02/17/18 10:10 02/17/18 10:11 Temperature Pulse Rate 80 80 Respiratory Rate 25 H 16 Blood Pressure 86/48 L Pulse Oximetry 100 100 02/17/18 10:15 02/17/18 10:26 02/17/18 10:30 Temperature Pulse Rate 80 80 80 Respiratory Rate 19 16 17 Blood Pressure 87/48 L 94/55 L 95/53 L Pulse Oximetry 100 100 100 02/17/18 10:45 02/17/18 11:00 02/17/18 11:15 Temperature Pulse Rate 80 80 80 Respiratory Rate 12 10 L 11 L Blood Pressure 93/54 L 88/52 L 92/53 L Pulse Oximetry 100 100 100 02/17/18 11:30 02/17/18 11:45 02/17/18 11:52 Temperature Pulse Rate 80 80 80 Respiratory Rate 14 19 20 Blood Pressure 93/55 L 95/55 L 90/55 L Pulse Oximetry 100 100 100 02/17/18 12:00 02/17/18 12:11 02/17/18 12:15 Temperature Pulse Rate 80 80 80 Respiratory Rate 23 19 18 Blood Pressure 90/52 L 90/52 L 81/43 L Pulse Oximetry 100 100 100 02/17/18 12:21 02/17/18 12:30 02/17/18 12:34 Temperature Pulse Rate 80 80 Respiratory Rate 16 24 25 H Blood Pressure 82/45 L 94/51 L Pulse Oximetry 100 100 100 02/17/18 12:45 02/17/18 13:00 02/17/18 13:15 Temperature Pulse Rate 80 80 80 Respiratory Rate 14 13 14 Blood Pressure 93/52 L 85/50 L 83/47 L Pulse Oximetry 100 100 100 02/17/18 13:16 02/17/18 13:30 02/17/18 13:45 Temperature Pulse Rate 80 80 80 Respiratory Rate 16 15 15 Blood Pressure 82/50 L 85/50 L 87/52 L Pulse Oximetry 100 100 100 02/17/18 14:00 02/17/18 14:15 02/17/18 14:30 Temperature Pulse Rate 80 80 80 Respiratory Rate 20 18 16 Blood Pressure 89/50 L 93/54 L 91/54 L Pulse Oximetry 100 100 100 02/17/18 14:45 02/17/18 15:00 02/17/18 15:11 Temperature Pulse Rate 80 80 80 Respiratory Rate 13 13 14 Blood Pressure 88/52 L 86/47 L 83/48 L Pulse Oximetry 100 100 100 02/17/18 15:15 02/17/18 15:30 02/17/18 15:40 Temperature Pulse Rate 80 80 80 Respiratory Rate 20 13 20 Blood Pressure 83/48 L 90/53 L 100/55 L Pulse Oximetry 100 100 98 02/17/18 15:45 02/17/18 16:00 02/17/18 16:15 Temperature Pulse Rate 80 80 80 Respiratory Rate 23 20 20 Blood Pressure 97/52 L 85/49 L 86/50 L Pulse Oximetry 100 100 100 02/17/18 16:23 02/17/18 16:30 02/17/18 16:45 Temperature Pulse Rate 80 80 Respiratory Rate 23 25 H 21 Blood Pressure 85/50 L 86/49 L Pulse Oximetry 100 100 100 02/17/18 17:00 02/17/18 17:13 02/17/18 17:15 Temperature Pulse Rate 80 80 80 Respiratory Rate 22 21 17 Blood Pressure 90/52 L 89/51 L 87/49 L Pulse Oximetry 100 100 100 02/17/18 17:30 02/17/18 18:00 02/17/18 18:15 Temperature Pulse Rate 80 80 80 Respiratory Rate 20 23 Blood Pressure 85/50 L 104/54 L Pulse Oximetry 100 93 L 02/17/18 18:30 02/17/18 18:45 02/17/18 19:00 Temperature Pulse Rate 80 80 80 Respiratory Rate 21 23 19 Blood Pressure 90/41 L 89/51 L 91/53 L Pulse Oximetry 99 100 100 02/17/18 19:15 02/17/18 19:20 02/17/18 19:30 Temperature Pulse Rate 80 80 Respiratory Rate 25 H 22 21 Blood Pressure 88/53 L 96/52 L Pulse Oximetry 100 100 99 02/17/18 19:45 02/17/18 20:00 02/17/18 20:15 Temperature Pulse Rate 80 80 80 Respiratory Rate 23 21 23 Blood Pressure 88/50 L 94/53 L 93/53 L Pulse Oximetry 100 100 100 02/17/18 20:30 02/17/18 20:45 02/17/18 21:00 Temperature Pulse Rate 80 80 80 Respiratory Rate 20 21 25 H Blood Pressure 95/55 L 98/55 L 97/55 L Pulse Oximetry 100 100 100 02/17/18 21:15 02/17/18 21:30 02/17/18 21:45 Temperature Pulse Rate 80 80 80 Respiratory Rate 22 26 H 20 Blood Pressure 110/54 L 101/53 L 92/54 L Pulse Oximetry 99 97 100 02/17/18 22:00 02/17/18 22:15 02/17/18 22:25 Temperature Pulse Rate 80 80 Respiratory Rate 20 21 23 Blood Pressure 88/53 L 83/49 L Pulse Oximetry 100 100 100 02/17/18 22:30 02/17/18 22:45 02/17/18 22:54 Temperature Pulse Rate 80 80 80 Respiratory Rate 23 23 22 Blood Pressure 90/53 L 90/53 L 87/53 L Pulse Oximetry 100 100 100 02/17/18 23:00 02/17/18 23:15 02/17/18 23:30 Temperature Pulse Rate 80 80 80 Respiratory Rate 21 20 23 Blood Pressure 95/50 L 90/52 L 88/51 L Pulse Oximetry 100 100 100 02/17/18 23:45 02/18/18 00:00 02/18/18 01:16 Temperature Pulse Rate 80 80 Respiratory Rate 18 21 23 Blood Pressure 97/54 L 91/55 L Pulse Oximetry 100 100 100 02/18/18 02:00 02/18/18 04:00 02/18/18 04:42 Temperature 98.9 F Pulse Rate 80 80 Respiratory Rate 22 23 Blood Pressure 92/50 L Pulse Oximetry 100 100 02/18/18 06:00 02/18/18 07:20 Temperature Pulse Rate 80 Respiratory Rate 24 Blood Pressure Pulse Oximetry 100 Intake & Output 02/17/18 02/18/18 02/18/18 18:59 06:59 18:59 Intake Total 700 / 700 Output Total 1625 / 1625 0 / 0 Balance -925 / -925 0 / 0 Weight 94 kg Intake: IV 100 / 100 Maxipime Inj 1,000 MG In NS Inj 100 / 100 100 ML @ 200 mls/hr IV.SIG Q24H [facility] Rx#:[id number] Oral 600 / 600 Oral Supplement 0 / 0 Output: Urine 425 / 425 Stool 0 / 0 0 / 0 Urine/Stool Mix 0 / 0 0 / 0 Hemodialysis Amount 1200 / 1200 Other: # Voids 3 # Incontinent Voids 0 Date of Last Bowel Movement 02/17/18 02/17/18 # Bowel Movements 0 0 # Incontinent Bowel Movements 0 0 Result Diagrams: 02/18/18 05:20 02/18/18 05:20 Objective Remarks: GENERAL: Elderly gentleman, intubated and sedated, ill-appearing. SKIN: No rash, no cyanosis. HEENT: Pupils equal and reactive, sclerae are nonicteric. Neck is supple without rigidity. Orally intubated. No JVD. No carotid bruit. CARDIOVASCULAR: Regular S1 and S2. Systolic ejection murmur at apex 3/6. RESPIRATORY: Scattered coarse breath sounds bilateral. No wheezes. Improved air entry. GASTROINTESTINAL: Abdomen is soft, non-tender, nondistended. Bowel sounds are present. No hepatomegaly, no splenomegaly. MUSCULOSKELETAL: Warm and well-perfused. Trace bilateral lower extremity peripheral edema. Pulses are present. SCDs in place. NEURO: Intubated and sedated, opens eyes to voice stimuli and follows commands. Moves both upper and lower extremities. Assessment and Plan - Assessment and Plan Plan: Active Problems: Acute respiratory failure -intubated and mechanically ventilated post bronchoscopy on 02/17. 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 Pain medications as needed. Wean propofol off and continue fentanyl infusion for now Continue buspirone 5 mg daily CV: Status post cardiac cath. Being followed by Dr. Weinberg. s/p ablation and micra placement 02/02/18 due to failure of medical management for rate control Echo showed EF 60-65%, mod- severe pulm HTN 60-70mmHg On Lipitor 80mg qhs and warfarin Pulmo: Continue PRVC at the current vent settings. PEEP decreased to 8 and FiO2 remains at 0.35 Vent bundle and bronchodilators Patient is synchronized with the vent, no auto PEEP, PIP is 29 Start CPAP today post HD with the hope that we can extubate him Continue methylprednisolone succinate to 30mg daily, tapered on 02/17 On budesonide/formoterol 80/4.5 2 puffs twice daily. On sildenafil 30mg TID for pulm HTN Post bronchoscopy on 02/17 GI/liver: If he does not come off the vent today we will start tube feeds Renal/: Monitor renal function, I/O's, avoid nephrotoxins Renal is following. Needs HD today ID: s/p Zosyn (01/24- 02/07) 02/09 Sputum: Klebsiella pneumonia. Continue cefepime 2gram IV Q8 Monitor for signs of infections ( Fever, WBC) BAL cultures are pending Endocrine: SSI (high scale) for glycemic control, insulin detemir 5u BID Heme: Monitor CBC, Coags- INR 2.5 today Worsening thrombocytopenia Receiving heparin with dialysis Send HIT Hold warfarin today Hematology consult Prophylaxis: Famotidine/SCDs. Level 3 follow-up Discussed in detail with daughter Mona present at bedside.
--- NOTE | 2018-02-18 10:50 | P.PNNP ---
Subjective Interval history: Intubated, trying to communicate. On 35% FiO2, PEEP 8. Seen during dialysis. Platelets are lower today, hematology has been consulted. <Jyoti Ceron - Last Filed: 02/18/18 10:46> Physical Exam Vital signs: Vital Signs 02/17/18 11:00 02/17/18 11:15 02/17/18 11:30 Temperature Pulse Rate 80 80 80 Respiratory Rate 10 L 11 L 14 Blood Pressure 88/52 L 92/53 L 93/55 L Pulse Oximetry 100 100 100 02/17/18 11:45 02/17/18 11:52 02/17/18 12:00 Temperature Pulse Rate 80 80 80 Respiratory Rate 19 20 23 Blood Pressure 95/55 L 90/55 L 90/52 L Pulse Oximetry 100 100 100 02/17/18 12:11 02/17/18 12:15 02/17/18 12:21 Temperature Pulse Rate 80 80 80 Respiratory Rate 19 18 16 Blood Pressure 90/52 L 81/43 L 82/45 L Pulse Oximetry 100 100 100 02/17/18 12:30 02/17/18 12:34 02/17/18 12:45 Temperature Pulse Rate 80 80 Respiratory Rate 24 25 H 14 Blood Pressure 94/51 L 93/52 L Pulse Oximetry 100 100 100 02/17/18 13:00 02/17/18 13:15 02/17/18 13:16 Temperature Pulse Rate 80 80 80 Respiratory Rate 13 14 16 Blood Pressure 85/50 L 83/47 L 82/50 L Pulse Oximetry 100 100 100 02/17/18 13:30 02/17/18 13:45 02/17/18 14:00 Temperature Pulse Rate 80 80 80 Respiratory Rate 15 15 20 Blood Pressure 85/50 L 87/52 L 89/50 L Pulse Oximetry 100 100 100 02/17/18 14:15 02/17/18 14:30 02/17/18 14:45 Temperature Pulse Rate 80 80 80 Respiratory Rate 18 16 13 Blood Pressure 93/54 L 91/54 L 88/52 L Pulse Oximetry 100 100 100 02/17/18 15:00 02/17/18 15:11 02/17/18 15:15 Temperature Pulse Rate 80 80 80 Respiratory Rate 13 14 20 Blood Pressure 86/47 L 83/48 L 83/48 L Pulse Oximetry 100 100 100 02/17/18 15:30 02/17/18 15:40 02/17/18 15:45 Temperature Pulse Rate 80 80 80 Respiratory Rate 13 20 23 Blood Pressure 90/53 L 100/55 L 97/52 L Pulse Oximetry 100 98 100 02/17/18 16:00 02/17/18 16:15 02/17/18 16:23 Temperature Pulse Rate 80 80 Respiratory Rate 20 20 23 Blood Pressure 85/49 L 86/50 L Pulse Oximetry 100 100 100 02/17/18 16:30 02/17/18 16:45 02/17/18 17:00 Temperature Pulse Rate 80 80 80 Respiratory Rate 25 H 21 22 Blood Pressure 85/50 L 86/49 L 90/52 L Pulse Oximetry 100 100 100 02/17/18 17:13 02/17/18 17:15 02/17/18 17:30 Temperature Pulse Rate 80 80 80 Respiratory Rate 21 17 20 Blood Pressure 89/51 L 87/49 L 85/50 L Pulse Oximetry 100 100 100 02/17/18 18:00 02/17/18 18:15 02/17/18 18:30 Temperature Pulse Rate 80 80 80 Respiratory Rate 23 21 Blood Pressure 104/54 L 90/41 L Pulse Oximetry 93 L 99 02/17/18 18:45 02/17/18 19:00 02/17/18 19:15 Temperature Pulse Rate 80 80 80 Respiratory Rate 23 19 25 H Blood Pressure 89/51 L 91/53 L 88/53 L Pulse Oximetry 100 100 100 02/17/18 19:20 02/17/18 19:30 02/17/18 19:45 Temperature Pulse Rate 80 80 Respiratory Rate 22 21 23 Blood Pressure 96/52 L 88/50 L Pulse Oximetry 100 99 100 02/17/18 20:00 02/17/18 20:15 02/17/18 20:30 Temperature Pulse Rate 80 80 80 Respiratory Rate 21 23 20 Blood Pressure 94/53 L 93/53 L 95/55 L Pulse Oximetry 100 100 100 02/17/18 20:45 02/17/18 21:00 02/17/18 21:15 Temperature Pulse Rate 80 80 80 Respiratory Rate 21 25 H 22 Blood Pressure 98/55 L 97/55 L 110/54 L Pulse Oximetry 100 100 99 02/17/18 21:30 02/17/18 21:45 02/17/18 22:00 Temperature Pulse Rate 80 80 80 Respiratory Rate 26 H 20 20 Blood Pressure 101/53 L 92/54 L 88/53 L Pulse Oximetry 97 100 100 02/17/18 22:15 02/17/18 22:25 02/17/18 22:30 Temperature Pulse Rate 80 80 Respiratory Rate 21 23 23 Blood Pressure 83/49 L 90/53 L Pulse Oximetry 100 100 100 02/17/18 22:45 02/17/18 22:54 02/17/18 23:00 Temperature Pulse Rate 80 80 80 Respiratory Rate 23 22 21 Blood Pressure 90/53 L 87/53 L 95/50 L Pulse Oximetry 100 100 100 02/17/18 23:15 02/17/18 23:30 02/17/18 23:45 Temperature Pulse Rate 80 80 80 Respiratory Rate 20 23 18 Blood Pressure 90/52 L 88/51 L 97/54 L Pulse Oximetry 100 100 100 02/18/18 00:00 02/18/18 01:16 02/18/18 02:00 Temperature Pulse Rate 80 80 Respiratory Rate 21 23 Blood Pressure 91/55 L Pulse Oximetry 100 100 02/18/18 03:30 02/18/18 03:45 02/18/18 04:00 Temperature 98.9 F Pulse Rate 80 80 80 Respiratory Rate 20 22 22 Blood Pressure 92/53 L 92/55 L 92/50 L Pulse Oximetry 100 100 100 02/18/18 04:15 02/18/18 04:30 02/18/18 04:42 Temperature Pulse Rate 80 80 Respiratory Rate 22 19 23 Blood Pressure 93/51 L 94/55 L Pulse Oximetry 100 99 100 02/18/18 04:45 02/18/18 05:00 02/18/18 05:15 Temperature Pulse Rate 80 80 80 Respiratory Rate 23 22 24 Blood Pressure 98/55 L 96/51 L 103/56 L Pulse Oximetry 100 100 95 02/18/18 05:30 02/18/18 05:45 02/18/18 06:00 Temperature Pulse Rate 80 80 80 Respiratory Rate 24 20 22 Blood Pressure 100/56 L 103/58 L 102/55 L Pulse Oximetry 98 98 100 02/18/18 06:15 02/18/18 06:30 02/18/18 06:45 Temperature Pulse Rate 80 80 80 Respiratory Rate 25 H 24 22 Blood Pressure 96/52 L 100/50 L 102/53 L Pulse Oximetry 100 100 100 02/18/18 07:00 02/18/18 07:15 02/18/18 07:20 Temperature Pulse Rate 80 80 Respiratory Rate 22 19 24 Blood Pressure 96/53 L 106/54 L Pulse Oximetry 100 100 100 02/18/18 07:30 02/18/18 07:45 02/18/18 08:00 Temperature 97.8 F Pulse Rate 80 80 80 Respiratory Rate 23 21 22 Blood Pressure 111/53 L 111/50 L 110/57 L Pulse Oximetry 100 99 97 02/18/18 08:15 02/18/18 08:30 02/18/18 08:45 Temperature Pulse Rate 80 80 80 Respiratory Rate 21 17 20 Blood Pressure 120/58 L 115/55 L 119/56 L Pulse Oximetry 97 99 95 02/18/18 09:00 02/18/18 09:15 02/18/18 09:30 Temperature Pulse Rate 80 80 80 Respiratory Rate 19 20 22 Blood Pressure 107/53 L 95/50 L 93/55 L Pulse Oximetry 95 97 96 Intake & Output 02/17/18 02/18/18 02/18/18 18:59 06:59 18:59 Intake Total 700 / 700 Output Total 1625 / 1625 0 / 0 Balance -925 / -925 0 / 0 Weight 94 kg Intake: IV 100 / 100 Maxipime Inj 1,000 MG In NS Inj 100 / 100 100 ML @ 200 mls/hr IV.SIG Q24H [facility] Rx#:[id number] Oral 600 / 600 Oral Supplement 0 / 0 Output: Urine 425 / 425 Stool 0 / 0 0 / 0 Urine/Stool Mix 0 / 0 0 / 0 Hemodialysis Amount 1200 / 1200 Other: # Voids 3 # Incontinent Voids 0 Date of Last Bowel Movement 02/17/18 02/17/18 02/17/18 # Bowel Movements 0 0 # Incontinent Bowel Movements 0 0 - Constitutional no acute distress, thin, chronically ill appearing - Routine HEENT Exam Head: Present: normocephalic - Routine Neck Exam Present: supple - Routine Respiratory Exam Present: patient mechanically ventilated, rales - Routine Cardiovascular Exam Present: S1, S2. Absent: murmur - Routine Abdominal Exam Present: soft, normoactive bowel sounds - Routine Extremities Exam Present: pulses intact, normal capillary refill, AV fistula, vascular access. Absent: edema - Routine Skin Exam Present: intact, dry, warm - Routine Neurological Exam On propofol, on the vent. Awake, moving all extremities. <Jyoti Ceron - Last Filed: 02/18/18 10:46> Vital signs: Vital Signs 02/18/18 15:30 02/18/18 15:45 02/18/18 16:00 Temperature 98.7 F Pulse Rate 80 80 80 Respiratory Rate 32 H 30 H 22 Blood Pressure 93/50 L 91/50 L 86/50 L Pulse Oximetry 95 95 95 02/18/18 18:00 02/18/18 20:00 02/18/18 22:00 Temperature 98.4 F Pulse Rate 80 80 80 Respiratory Rate 26 H Blood Pressure 89/52 L Pulse Oximetry 97 02/18/18 22:27 02/18/18 22:40 02/18/18 23:30 Temperature Pulse Rate 80 Respiratory Rate 18 Blood Pressure Pulse Oximetry 93 L 94 L 02/19/18 00:00 02/19/18 02:00 02/19/18 03:45 Temperature 97.9 F Pulse Rate 80 80 80 Respiratory Rate 36 H 14 Blood Pressure 96/53 L 90/53 L Pulse Oximetry 96 95 02/19/18 04:00 02/19/18 04:07 02/19/18 04:15 Temperature 97.9 F Pulse Rate 80 80 80 Respiratory Rate 29 H 15 Blood Pressure 101/53 L 104/51 L Pulse Oximetry 94 L 94 L 02/19/18 04:30 02/19/18 04:36 02/19/18 04:45 Temperature Pulse Rate 80 80 Respiratory Rate 17 23 Blood Pressure 114/57 L 108/53 L Pulse Oximetry 97 94 L 90 L 02/19/18 05:00 02/19/18 05:15 02/19/18 05:30 Temperature Pulse Rate 80 80 80 Respiratory Rate 18 18 13 Blood Pressure 104/50 L 100/52 L 98/50 L Pulse Oximetry 89 L 93 L 93 L 02/19/18 05:45 02/19/18 06:00 02/19/18 06:15 Temperature Pulse Rate 80 80 80 Respiratory Rate 22 30 H 60 H Blood Pressure 103/54 L 99/51 L 104/54 L Pulse Oximetry 89 L 78 L 98 02/19/18 06:30 02/19/18 06:45 02/19/18 07:00 Temperature Pulse Rate 80 80 80 Respiratory Rate 12 17 23 Blood Pressure 102/53 L 96/53 L 97/51 L Pulse Oximetry 95 93 L 93 L 02/19/18 07:15 02/19/18 07:30 02/19/18 07:45 Temperature Pulse Rate 80 80 80 Respiratory Rate 12 13 16 Blood Pressure 106/56 L 104/51 L 100/50 L Pulse Oximetry 98 98 99 02/19/18 08:00 02/19/18 08:15 02/19/18 08:30 Temperature 97.5 F L Pulse Rate 80 80 80 Respiratory Rate 24 14 17 Blood Pressure 108/56 L 108/55 L 107/57 L Pulse Oximetry 93 L 90 L 91 L 02/19/18 08:45 02/19/18 09:01 02/19/18 09:15 Temperature Pulse Rate 80 80 80 Respiratory Rate 15 24 28 H Blood Pressure 112/56 L 102/51 L 111/56 L Pulse Oximetry 94 L 83 L 84 L 02/19/18 09:30 02/19/18 09:45 02/19/18 09:46 Temperature Pulse Rate 80 80 80 Respiratory Rate 28 H 19 20 Blood Pressure 104/55 L 90/44 L Pulse Oximetry 88 L 88 L 02/19/18 10:00 02/19/18 10:15 02/19/18 10:25 Temperature Pulse Rate 80 80 Respiratory Rate 18 21 Blood Pressure 89/54 L 90/49 L Pulse Oximetry 90 L 83 L 99 02/19/18 10:30 02/19/18 10:45 02/19/18 11:00 Temperature Pulse Rate 80 80 80 Respiratory Rate 21 23 17 Blood Pressure 113/56 L 109/56 L 106/52 L Pulse Oximetry 100 99 100 02/19/18 11:16 02/19/18 11:30 02/19/18 11:38 Temperature Pulse Rate 80 80 Respiratory Rate 22 33 H Blood Pressure 110/53 L 106/53 L Pulse Oximetry 100 88 L 100 02/19/18 11:45 02/19/18 12:00 02/19/18 12:15 Temperature 98.2 F Pulse Rate 80 80 80 Respiratory Rate 27 H 21 17 Blood Pressure 114/55 L 110/56 L 110/56 L Pulse Oximetry 98 100 98 02/19/18 12:30 08/23/18 14:00 Temperature Pulse Rate 80 80 Respiratory Rate 24 Blood Pressure 112/55 L Pulse Oximetry 96 Intake & Output 02/18/18 02/19/18 02/19/18 18:59 06:59 18:59 Intake Total 300 / 300 240 / 240 Output Total 4000 / 4000 30 / 30 Balance -3700 / -3700 210 / 210 Weight 93.5 kg Intake: IV 300 / 300 Flexbumin 25% Inj 100 ML @ 60 200 / 200 mls/hr IV.SIG WITH DIALYSIS PRN Rx#:[id number] Maxipime Inj 1,000 MG In NS Inj 100 / 100 100 ML @ 200 mls/hr IV.SIG Q24H [facility] Rx#:[id number] Oral 240 / 240 Oral Supplement 0 / 0 Output: Urine 30 / 30 Stool 0 / 0 Urine/Stool Mix 0 / 0 Hemodialysis Amount 4000 / 4000 Other: Date of Last Bowel Movement 02/17/18 02/19/18 02/19/18 # Bowel Movements 1 2 # Incontinent Bowel Movements 0 <Eduardo Salvador - Last Filed: 02/19/18 15:28> Assessment and Plan - Assessment (1) ESRD (end stage renal disease) on dialysis Code(s): N18.6 - End stage renal disease; Z99.2 - Dependence on renal dialysis Status: Acute Plan: HD support continues MWF. Seen during HD today on a 1K, 350 BFR, goal 2L Having intradialytic hypotension. Using albumin as needed. On midodrine TID on HD days. Monitor electrolytes intermittently. Avoid IVF administration. Protect left arm from procedures, has new AV access that is not mature yet. Will need to follow with vascular (Dr. Hutson) at a later date. Appears to be maturing well. PermCath in place for HD use. On calcium acetate with meals, give with tube feeding (Nepro). (2) Hypoxia Code(s): R09.02 - Hypoxemia Status: Acute Plan: s/p intubation and bronchoscopy. Pending results of biopsy. Pulmonary following. On sildenafil for pulmonary hypertension. Vent weening as tolerated (3) Atrial fibrillation with RVR Code(s): I48.91 - Unspecified atrial fibrillation Status: Acute Plan: corrected, s/p AV gilbert ablation with pacemaker placement. Midodrine is ordered TID for hypotension. Cardiology following. Appreciate recommendations. (4) CHF (congestive heart failure) Code(s): I50.9 - Heart failure, unspecified Status: Acute Qualifiers: Heart failure type: unspecified Heart failure chronicity: unspecified Qualified Code(s): I50.9 - Heart failure, unspecified Plan: Stable. EF noted to be around 60%. Repeat echo shows no change in EF. He has mild aortic regurgitation. Fluid removal with dialysis as tolerated. (5) Anemia in CKD (chronic kidney disease) Code(s): N18.9 - Chronic kidney disease, unspecified; D63.1 - Anemia in chronic kidney disease Status: Acute Plan: On Epogen with dialysis. Hemoglobin is acceptable. (6) Thrombocytopenia Code(s): D69.6 - Thrombocytopenia, unspecified Status: Acute Plan: Worse Hematology consulted. <Jyoti Ceron - Last Filed: 02/18/18 10:46> - Assessment (1) ESRD (end stage renal disease) on dialysis Code(s): N18.6 - End stage renal disease; Z99.2 - Dependence on renal dialysis Status: Acute (2) Hypoxia Code(s): R09.02 - Hypoxemia Status: Acute (3) Atrial fibrillation with RVR Code(s): I48.91 - Unspecified atrial fibrillation Status: Acute (4) CHF (congestive heart failure) Code(s): I50.9 - Heart failure, unspecified Status: Acute Qualifiers: Heart failure type: unspecified Heart failure chronicity: unspecified Qualified Code(s): I50.9 - Heart failure, unspecified (5) Anemia in CKD (chronic kidney disease) Code(s): N18.9 - Chronic kidney disease, unspecified; D63.1 - Anemia in chronic kidney disease Status: Acute (6) Thrombocytopenia Code(s): D69.6 - Thrombocytopenia, unspecified Status: Acute - Attending Attestation patient was seen and examined. Dialysis will be continued three times/week. Seen during dialysis on 02/18/18. Thrombocytopenia has worsened. Hem/Onc consulted. <Eduardo Salvador - Last Filed: 02/19/18 15:28>
[2018-02-18] MEDS: Albumin Human 25% Inj 100 ML IV.SIG PRN ×2 (10:53→10:55)
[2018-02-18] MEDS: MethylPREDNISolone Sod Succinate Inj 40 MG/ML Vial IV.PUSH SCH (11:45)
--- NOTE | 2018-02-18 12:13 | P.PNCA ---
Subjective Interval history: alert, intubated, in nad Physical Exam Vital signs: Vital Signs 02/17/18 12:15 02/17/18 12:21 02/17/18 12:30 Temperature Pulse Rate 80 80 80 Respiratory Rate 18 16 24 Blood Pressure 81/43 L 82/45 L 94/51 L Pulse Oximetry 100 100 100 02/17/18 12:34 02/17/18 12:45 02/17/18 13:00 Temperature Pulse Rate 80 80 Respiratory Rate 25 H 14 13 Blood Pressure 93/52 L 85/50 L Pulse Oximetry 100 100 100 02/17/18 13:15 02/17/18 13:16 02/17/18 13:30 Temperature Pulse Rate 80 80 80 Respiratory Rate 14 16 15 Blood Pressure 83/47 L 82/50 L 85/50 L Pulse Oximetry 100 100 100 02/17/18 13:45 02/17/18 14:00 02/17/18 14:15 Temperature Pulse Rate 80 80 80 Respiratory Rate 15 20 18 Blood Pressure 87/52 L 89/50 L 93/54 L Pulse Oximetry 100 100 100 02/17/18 14:30 02/17/18 14:45 02/17/18 15:00 Temperature Pulse Rate 80 80 80 Respiratory Rate 16 13 13 Blood Pressure 91/54 L 88/52 L 86/47 L Pulse Oximetry 100 100 100 02/17/18 15:11 02/17/18 15:15 02/17/18 15:30 Temperature Pulse Rate 80 80 80 Respiratory Rate 14 20 13 Blood Pressure 83/48 L 83/48 L 90/53 L Pulse Oximetry 100 100 100 02/17/18 15:40 02/17/18 15:45 02/17/18 16:00 Temperature Pulse Rate 80 80 80 Respiratory Rate 20 23 20 Blood Pressure 100/55 L 97/52 L 85/49 L Pulse Oximetry 98 100 100 02/17/18 16:15 02/17/18 16:23 02/17/18 16:30 Temperature Pulse Rate 80 80 Respiratory Rate 20 23 25 H Blood Pressure 86/50 L 85/50 L Pulse Oximetry 100 100 100 02/17/18 16:45 02/17/18 17:00 02/17/18 17:13 Temperature Pulse Rate 80 80 80 Respiratory Rate 21 22 21 Blood Pressure 86/49 L 90/52 L 89/51 L Pulse Oximetry 100 100 100 02/17/18 17:15 02/17/18 17:30 02/17/18 18:00 Temperature Pulse Rate 80 80 80 Respiratory Rate 17 20 Blood Pressure 87/49 L 85/50 L Pulse Oximetry 100 100 02/17/18 18:15 02/17/18 18:30 02/17/18 18:45 Temperature Pulse Rate 80 80 80 Respiratory Rate 23 21 23 Blood Pressure 104/54 L 90/41 L 89/51 L Pulse Oximetry 93 L 99 100 02/17/18 19:00 02/17/18 19:15 02/17/18 19:20 Temperature Pulse Rate 80 80 Respiratory Rate 19 25 H 22 Blood Pressure 91/53 L 88/53 L Pulse Oximetry 100 100 100 02/17/18 19:30 02/17/18 19:45 02/17/18 20:00 Temperature Pulse Rate 80 80 80 Respiratory Rate 21 23 21 Blood Pressure 96/52 L 88/50 L 94/53 L Pulse Oximetry 99 100 100 02/17/18 20:15 02/17/18 20:30 02/17/18 20:45 Temperature Pulse Rate 80 80 80 Respiratory Rate 23 20 21 Blood Pressure 93/53 L 95/55 L 98/55 L Pulse Oximetry 100 100 100 02/17/18 21:00 02/17/18 21:15 02/17/18 21:30 Temperature Pulse Rate 80 80 80 Respiratory Rate 25 H 22 26 H Blood Pressure 97/55 L 110/54 L 101/53 L Pulse Oximetry 100 99 97 02/17/18 21:45 02/17/18 22:00 02/17/18 22:15 Temperature Pulse Rate 80 80 80 Respiratory Rate 20 20 21 Blood Pressure 92/54 L 88/53 L 83/49 L Pulse Oximetry 100 100 100 02/17/18 22:25 02/17/18 22:30 02/17/18 22:45 Temperature Pulse Rate 80 80 Respiratory Rate 23 23 23 Blood Pressure 90/53 L 90/53 L Pulse Oximetry 100 100 100 02/17/18 22:54 02/17/18 23:00 02/17/18 23:15 Temperature Pulse Rate 80 80 80 Respiratory Rate 22 21 20 Blood Pressure 87/53 L 95/50 L 90/52 L Pulse Oximetry 100 100 100 02/17/18 23:30 02/17/18 23:45 02/18/18 00:00 Temperature Pulse Rate 80 80 80 Respiratory Rate 23 18 21 Blood Pressure 88/51 L 97/54 L 91/55 L Pulse Oximetry 100 100 100 02/18/18 01:16 02/18/18 02:00 02/18/18 03:30 Temperature Pulse Rate 80 80 Respiratory Rate 23 20 Blood Pressure 92/53 L Pulse Oximetry 100 100 02/18/18 03:45 02/18/18 04:00 02/18/18 04:15 Temperature 98.9 F Pulse Rate 80 80 80 Respiratory Rate 22 22 22 Blood Pressure 92/55 L 92/50 L 93/51 L Pulse Oximetry 100 100 100 02/18/18 04:30 02/18/18 04:42 02/18/18 04:45 Temperature Pulse Rate 80 80 Respiratory Rate 19 23 23 Blood Pressure 94/55 L 98/55 L Pulse Oximetry 99 100 100 02/18/18 05:00 02/18/18 05:15 02/18/18 05:30 Temperature Pulse Rate 80 80 80 Respiratory Rate 22 24 24 Blood Pressure 96/51 L 103/56 L 100/56 L Pulse Oximetry 100 95 98 02/18/18 05:45 02/18/18 06:00 02/18/18 06:15 Temperature Pulse Rate 80 80 80 Respiratory Rate 20 22 25 H Blood Pressure 103/58 L 102/55 L 96/52 L Pulse Oximetry 98 100 100 02/18/18 06:30 02/18/18 06:45 02/18/18 07:00 Temperature Pulse Rate 80 80 80 Respiratory Rate 24 22 22 Blood Pressure 100/50 L 102/53 L 96/53 L Pulse Oximetry 100 100 100 02/18/18 07:15 02/18/18 07:20 02/18/18 07:30 Temperature Pulse Rate 80 80 Respiratory Rate 19 24 23 Blood Pressure 106/54 L 111/53 L Pulse Oximetry 100 100 100 02/18/18 07:45 02/18/18 08:00 02/18/18 08:15 Temperature 97.8 F Pulse Rate 80 80 80 Respiratory Rate 21 22 21 Blood Pressure 111/50 L 110/57 L 120/58 L Pulse Oximetry 99 97 97 02/18/18 08:30 02/18/18 08:45 02/18/18 09:00 Temperature Pulse Rate 80 80 80 Respiratory Rate 17 20 19 Blood Pressure 115/55 L 119/56 L 107/53 L Pulse Oximetry 99 95 95 02/18/18 09:15 02/18/18 09:30 02/18/18 11:57 Temperature Pulse Rate 80 80 Respiratory Rate 20 22 24 Blood Pressure 95/50 L 93/55 L Pulse Oximetry 97 96 Intake & Output 02/17/18 02/18/18 02/18/18 18:59 06:59 18:59 Intake Total 700 / 700 200 / 200 Output Total 1625 / 1625 0 / 0 1999 Balance -925 / -925 0 / 0 -1800 / -1800 Weight 94 kg Intake: IV 100 / 100 200 / 200 Flexbumin 25% Inj 100 ML @ 60 200 / 200 mls/hr IV.SIG WITH DIALYSIS PRN Rx#:[id number] Maxipime Inj 1,000 MG In NS Inj 100 / 100 100 ML @ 200 mls/hr IV.SIG Q24H [facility] Rx#:[id number] Oral 600 / 600 Oral Supplement 0 / 0 Output: Urine 425 / 425 Stool 0 / 0 0 / 0 Urine/Stool Mix 0 / 0 0 / 0 Hemodialysis Amount 1200 / 1200 1999 Other: # Voids 3 # Incontinent Voids 0 Date of Last Bowel Movement 02/17/18 02/17/18 02/17/18 # Bowel Movements 0 0 # Incontinent Bowel Movements 0 0 Assessment and Plan - Assessment (1) Atrial fibrillation with rapid ventricular response Code(s): I48.91 - Unspecified atrial fibrillation Status: Acute (2) CHF (congestive heart failure) Code(s): I50.9 - Heart failure, unspecified Status: Acute (3) Chronic kidney disease with end stage renal failure on dialysis Code(s): N18.6 - End stage renal disease; Z99.2 - Dependence on renal dialysis Status: Acute (4) Atrial fibrillation with RVR Code(s): I48.91 - Unspecified atrial fibrillation Status: Acute (5) ESRD (end stage renal disease) on dialysis Code(s): N18.6 - End stage renal disease; Z99.2 - Dependence on renal dialysis Status: Acute - Plan 1.) Afib with rvr - s/p ablation and micra placement 02/02/18 due to failure of medical management for rate control, d/w patient, inr therapeutic, hgb stable, rate controlled, inr=2.1 and hgb = 9.3 02/18/18, tracheobronchitis with heme on bronchoscopy 02/17/18 2.) CAD - continue, lipitor, has hemoptyis which is persistent hgb=9.3 02/18/18 , f/u inr and cbc in am (2) CHF (congestive heart failure) Qualifiers: Heart failure type: unspecified Heart failure chronicity: unspecified Qualified Code(s): I50.9 - Heart failure, unspecified
--- NOTE | 2018-02-18 17:07 | P.PNPAL ---
Reason for Visit Reason for visit: a. To assist with evaluation and management of symptoms including: Dyspnea, anxiety b. To assist medical decision maker(s) with: better understanding of current medical conditions; weighing benefits/burdens of medical treatment options; making medical treatment decisions. Subjective Subjective/Interval History: Patient seen today for follow-up on symptom management of dyspnea, anxiety and goals of medical care. Patient extubated this afternoon after a successful CPAP trial. Underwent dialysis today. He is currently on BiPAP mask on 55% FiO2. He is mildly lethargic. Opens his eyes to sound but appears very weak. Squeezes hands to command he remains tachypneic, breathing up to 30 times per minute. Patient is unable to qualify or quantify his dyspneic symptoms as he is on BiPAP. He remains mildly anxious, seem to reposition himself frequently, not resting quietly. Due to dyspnea and BiPAP mask, patient is unable to quantify or qualify his anxiety. . Family/Friend Interactions: Patient's is at bedside and encouraged with his extubation. Clinical update given. All questions answered to the best my ability. . Advance Directives Health Care Surrogate: Copy in medical record Advance Directives Date on File: 02/02/18 Health Care Surrogate Name and Number: daughter Dinorah Greer Objective Vital Signs: Vital Signs 02/17/18 17:00 02/17/18 17:13 02/17/18 17:15 Temperature Pulse Rate 80 80 80 Respiratory Rate 22 21 17 Blood Pressure 90/52 L 89/51 L 87/49 L Pulse Oximetry 100 100 100 02/17/18 17:30 02/17/18 18:00 02/17/18 18:15 Temperature Pulse Rate 80 80 80 Respiratory Rate 20 23 Blood Pressure 85/50 L 104/54 L Pulse Oximetry 100 93 L 02/17/18 18:30 02/17/18 18:45 02/17/18 19:00 Temperature Pulse Rate 80 80 80 Respiratory Rate 21 23 19 Blood Pressure 90/41 L 89/51 L 91/53 L Pulse Oximetry 99 100 100 02/17/18 19:15 02/17/18 19:20 02/17/18 19:30 Temperature Pulse Rate 80 80 Respiratory Rate 25 H 22 21 Blood Pressure 88/53 L 96/52 L Pulse Oximetry 100 100 99 02/17/18 19:45 02/17/18 20:00 02/17/18 20:15 Temperature Pulse Rate 80 80 80 Respiratory Rate 23 21 23 Blood Pressure 88/50 L 94/53 L 93/53 L Pulse Oximetry 100 100 100 02/17/18 20:30 02/17/18 20:45 02/17/18 21:00 Temperature Pulse Rate 80 80 80 Respiratory Rate 20 21 25 H Blood Pressure 95/55 L 98/55 L 97/55 L Pulse Oximetry 100 100 100 02/17/18 21:15 02/17/18 21:30 02/17/18 21:45 Temperature Pulse Rate 80 80 80 Respiratory Rate 22 26 H 20 Blood Pressure 110/54 L 101/53 L 92/54 L Pulse Oximetry 99 97 100 02/17/18 22:00 02/17/18 22:15 02/17/18 22:25 Temperature Pulse Rate 80 80 Respiratory Rate 20 21 23 Blood Pressure 88/53 L 83/49 L Pulse Oximetry 100 100 100 02/17/18 22:30 02/17/18 22:45 02/17/18 22:54 Temperature Pulse Rate 80 80 80 Respiratory Rate 23 23 22 Blood Pressure 90/53 L 90/53 L 87/53 L Pulse Oximetry 100 100 100 02/17/18 23:00 02/17/18 23:15 02/17/18 23:30 Temperature Pulse Rate 80 80 80 Respiratory Rate 21 20 23 Blood Pressure 95/50 L 90/52 L 88/51 L Pulse Oximetry 100 100 100 02/17/18 23:45 02/18/18 00:00 02/18/18 01:16 Temperature Pulse Rate 80 80 Respiratory Rate 18 21 23 Blood Pressure 97/54 L 91/55 L Pulse Oximetry 100 100 100 02/18/18 02:00 02/18/18 03:30 02/18/18 03:45 Temperature Pulse Rate 80 80 80 Respiratory Rate 20 22 Blood Pressure 92/53 L 92/55 L Pulse Oximetry 100 100 02/18/18 04:00 02/18/18 04:15 02/18/18 04:30 Temperature 98.9 F Pulse Rate 80 80 80 Respiratory Rate 22 22 19 Blood Pressure 92/50 L 93/51 L 94/55 L Pulse Oximetry 100 100 99 02/18/18 04:42 02/18/18 04:45 02/18/18 05:00 Temperature Pulse Rate 80 80 Respiratory Rate 23 23 22 Blood Pressure 98/55 L 96/51 L Pulse Oximetry 100 100 100 02/18/18 05:15 02/18/18 05:30 02/18/18 05:45 Temperature Pulse Rate 80 80 80 Respiratory Rate 24 24 20 Blood Pressure 103/56 L 100/56 L 103/58 L Pulse Oximetry 95 98 98 02/18/18 06:00 02/18/18 06:15 02/18/18 06:30 Temperature Pulse Rate 80 80 80 Respiratory Rate 22 25 H 24 Blood Pressure 102/55 L 96/52 L 100/50 L Pulse Oximetry 100 100 100 02/18/18 06:45 02/18/18 07:00 02/18/18 07:15 Temperature Pulse Rate 80 80 80 Respiratory Rate 22 22 19 Blood Pressure 102/53 L 96/53 L 106/54 L Pulse Oximetry 100 100 100 02/18/18 07:20 02/18/18 07:30 02/18/18 07:45 Temperature Pulse Rate 80 80 Respiratory Rate 24 23 21 Blood Pressure 111/53 L 111/50 L Pulse Oximetry 100 100 99 02/18/18 08:00 02/18/18 08:15 02/18/18 08:30 Temperature 97.8 F Pulse Rate 80 80 80 Respiratory Rate 22 21 17 Blood Pressure 110/57 L 120/58 L 115/55 L Pulse Oximetry 97 97 99 02/18/18 08:45 02/18/18 09:00 02/18/18 09:15 Temperature Pulse Rate 80 80 80 Respiratory Rate 20 19 20 Blood Pressure 119/56 L 107/53 L 95/50 L Pulse Oximetry 95 95 97 02/18/18 09:30 02/18/18 09:45 02/18/18 10:00 Temperature Pulse Rate 80 80 80 Respiratory Rate 22 16 19 Blood Pressure 93/55 L 95/52 L 92/48 L Pulse Oximetry 96 96 91 L 02/18/18 10:15 02/18/18 10:30 02/18/18 10:45 Temperature Pulse Rate 80 80 80 Respiratory Rate 19 18 16 Blood Pressure 95/51 L 98/54 L 98/55 L Pulse Oximetry 95 92 L 94 L 02/18/18 11:00 02/18/18 11:15 02/18/18 11:31 Temperature Pulse Rate 80 80 80 Respiratory Rate 17 21 26 H Blood Pressure 98/57 L 95/55 L 113/53 L Pulse Oximetry 93 L 94 L 88 L 02/18/18 11:45 02/18/18 11:57 02/18/18 12:00 Temperature 99.9 F H Pulse Rate 80 80 Respiratory Rate 21 24 22 Blood Pressure 105/52 L 102/51 L Pulse Oximetry 86 L 82 L 02/18/18 12:15 02/18/18 12:30 02/18/18 12:45 Temperature Pulse Rate 80 80 80 Respiratory Rate 17 19 17 Blood Pressure 100/49 L 98/54 L 94/51 L Pulse Oximetry 91 L 89 L 92 L 02/18/18 12:47 02/18/18 13:00 02/18/18 13:02 Temperature Pulse Rate 80 Respiratory Rate 17 18 17 Blood Pressure 94/51 L Pulse Oximetry 100 92 L 92 L 02/18/18 13:15 02/18/18 13:30 02/18/18 13:45 Temperature Pulse Rate 80 80 80 Respiratory Rate 17 16 15 Blood Pressure 96/52 L 92/49 L 92/46 L Pulse Oximetry 93 L 92 L 93 L 02/18/18 14:00 02/18/18 14:15 02/18/18 14:30 Temperature Pulse Rate 80 80 80 Respiratory Rate 18 15 16 Blood Pressure 97/52 L 87/48 L 94/48 L Pulse Oximetry 93 L 91 L 96 02/18/18 14:45 02/18/18 15:00 02/18/18 15:15 Temperature Pulse Rate 80 80 80 Respiratory Rate 15 15 28 H Blood Pressure 94/51 L 98/49 L 91/51 L Pulse Oximetry 100 90 L 91 L 02/18/18 15:23 02/18/18 15:30 02/18/18 15:45 Temperature Pulse Rate 80 80 Respiratory Rate 32 H 30 H Blood Pressure 93/50 L 91/50 L Pulse Oximetry 100 95 95 02/18/18 16:00 Temperature 98.7 F Pulse Rate 80 Respiratory Rate 22 Blood Pressure 86/50 L Pulse Oximetry 95 Intake & Output 02/17/18 02/18/18 02/18/18 18:59 06:59 18:59 Intake Total 700 / 700 300 / 300 Output Total 1625 / 1625 0 / 0 1999 Balance -925 / -925 0 / 0 -1700 / -1700 Weight 207 lb 3.752 oz Intake: IV 100 / 100 300 / 300 Flexbumin 25% Inj 100 ML @ 60 200 / 200 mls/hr IV.SIG WITH DIALYSIS PRN Rx#:[id number] Maxipime Inj 1,000 MG In NS Inj 100 / 100 100 / 100 100 ML @ 200 mls/hr IV.SIG Q24H PEDRO Rx#:[id number] Oral 600 / 600 Oral Supplement 0 / 0 Output: Urine 425 / 425 Stool 0 / 0 0 / 0 Urine/Stool Mix 0 / 0 0 / 0 Hemodialysis Amount 1200 / 1200 1999 / 1999 Other: # Voids 3 # Incontinent Voids 0 Date of Last Bowel Movement 02/17/18 02/17/18 02/17/18 # Bowel Movements 0 0 # Incontinent Bowel Movements 0 0 Physical Exam: CONSTITUTIONAL/GENERAL: This is an adequately nourished patient, recently extubated to BiPAP mask, appears mildly anxious but no acute distress.. NECK: Trachea midline. Supple, nontender. Orally intubated. CARDIOVASCULAR: regular rhythm, paced rate 80, 2/6 systolic ejection murmur, no rub no gallop. RESPIRATORY/CHEST: Clear breath sounds with faint bibasilar crackles, no accessory muscle use, no wheezing or rhonchi. GASTROINTESTINAL: Abdomen soft, non-tender, nondistended. No hepato-splenomegaly , or palpable masses. No guarding. Bowel sounds present. MUSCULOSKELETAL: Extremities without clubbing, cyanosis, or edema. No joint tenderness or effusion noted. No calf tenderness. No mottling or clubbing. NEUROLOGICAL: Recently extubated to BiPAP. Squeezes hands to commands but extremely weak and lethargic. PSYCHIATRIC: Lethargic . Diagnostic Tests Laboratory: Laboratory Results - last 72 hr 02/12/18 02/15/18 02/15/18 13:22 17:36 19:29 WBC RBC Hgb Hct MCV MCH MCHC RDW Plt Count MPV Prelim Diff (Auto) Neut % (Auto) Lymph % (Auto) [place] % (Auto) Eos % (Auto) Baso % (Auto) Neut # (Auto) Lymph # (Auto) [place] # (Auto) Eos # (Auto) Baso # (Auto) WBC Differential Diff Scan Differential Comment Platelet Estimate Platelet Morphology Ovalocytes Acanthocytes (Spur) Rouleaux PT INR Puncture Site Patient Temperature O2 Saturation ABG pH ABG pCO2 ABG pO2 ABG HCO3 ABG O2 Content ABG Base Excess ABG Methemoglobin Eligio Test Hemoglobin Carboxyhemoglobin O2 Delivery Device Liter Flow Vent Setting Inspired O2 Critical Value Sodium Potassium Chloride Carbon Dioxide Anion Gap BUN Creatinine Estimated GFR POC Glucose 362 H 273 H Random Glucose Calcium Phosphorus Magnesium Total Bilirubin AST ALT Alkaline Phosphatase Total Protein Albumin Anti-Proteinase 3 Less than 1.0 Anti-Myeloperoxidase Less than 1.0 Glomerular Base Mem IgG <1.0 02/16/18 02/16/18 02/16/18 03:50 03:50 03:50 WBC 11.4 H RBC 3.31 L Hgb 9.5 L Hct 29.8 L MCV 89.9 MCH 28.8 MCHC 32.1 RDW 21.8 H Plt Count 73 L MPV 10.6 Prelim Diff (Auto) Slide review pending Neut % (Auto) 96.0 H Lymph % (Auto) 1.3 L [place] % (Auto) 2.6 Eos % (Auto) 0.0 Baso % (Auto) 0.1 Neut # (Auto) 11.0 H Lymph # (Auto) 0.1 L [place] # (Auto) 0.3 Eos # (Auto) 0.0 Baso # (Auto) 0.0 WBC Differential . Diff Scan Auto diff confirmed Differential Comment . Platelet Estimate Platelet Morphology Ovalocytes 1+ H Acanthocytes (Spur) Occ H Rouleaux PT 19.7 H INR 1.9 Puncture Site Patient Temperature O2 Saturation ABG pH ABG pCO2 ABG pO2 ABG HCO3 ABG O2 Content ABG Base Excess ABG Methemoglobin Eligio Test Hemoglobin Carboxyhemoglobin O2 Delivery Device Liter Flow Vent Setting Inspired O2 Critical Value Sodium 137 Potassium 5.2 H Chloride 97 L Carbon Dioxide 25.7 Anion Gap 14 BUN 135 H Creatinine 8.31 H Estimated GFR 6 L POC Glucose Random Glucose 97 Calcium 8.6 Phosphorus 4.8 Magnesium 2.6 H Total Bilirubin 1.1 H AST 34 ALT 45 Alkaline Phosphatase 110 Total Protein 6.1 L Albumin 2.8 L Anti-Proteinase 3 Anti-Myeloperoxidase Glomerular Base Mem IgG 02/16/18 02/16/18 02/17/18 21:05 22:45 04:47 WBC RBC Hgb Hct MCV MCH MCHC RDW Plt Count MPV Prelim Diff (Auto) Neut % (Auto) Lymph % (Auto) [place] % (Auto) Eos % (Auto) Baso % (Auto) Neut # (Auto) Lymph # (Auto) [place] # (Auto) Eos # (Auto) Baso # (Auto) WBC Differential Diff Scan Differential Comment Platelet Estimate Platelet Morphology Ovalocytes Acanthocytes (Spur) Rouleaux PT INR Puncture Site Right radial Patient Temperature 98.6 O2 Saturation 86 L* ABG pH 7.43 H ABG pCO2 42 ABG pO2 60 L ABG HCO3 27 H ABG O2 Content 11.1 L ABG Base Excess 2.9 H ABG Methemoglobin 1.6 Eligio Test Present Hemoglobin 9.1 L Carboxyhemoglobin 3.0 O2 Delivery Device Hfnc Liter Flow 40.00 Vent Setting Inspired O2 100 Critical Value Yes Sodium Potassium Chloride Carbon Dioxide Anion Gap BUN Creatinine Estimated GFR POC Glucose 356 H 364 H Random Glucose Calcium Phosphorus Magnesium Total Bilirubin AST ALT Alkaline Phosphatase Total Protein Albumin Anti-Proteinase 3 Anti-Myeloperoxidase Glomerular Base Mem IgG 02/17/18 02/17/18 02/17/18 06:17 06:17 06:17 WBC 7.6 RBC 3.21 L Hgb 9.3 L Hct 29.3 L MCV 91.3 MCH 29.1 MCHC 31.9 L RDW 22.0 H Plt Count 61 L MPV 11.0 Prelim Diff (Auto) Slide review pending Neut % (Auto) 94.1 H Lymph % (Auto) 2.8 L [place] % (Auto) 2.9 Eos % (Auto) 0.0 Baso % (Auto) 0.2 Neut # (Auto) 7.2 Lymph # (Auto) 0.2 L [place] # (Auto) 0.2 Eos # (Auto) 0.0 Baso # (Auto) 0.0 WBC Differential . Diff Scan Auto diff confirmed Differential Comment . Platelet Estimate Low L Platelet Morphology Normal Ovalocytes 1+ H Acanthocytes (Spur) Occ H Rouleaux Present H PT 25.1 H INR 2.5 Puncture Site Patient Temperature O2 Saturation ABG pH ABG pCO2 ABG pO2 ABG HCO3 ABG O2 Content ABG Base Excess ABG Methemoglobin Eligio Test Hemoglobin Carboxyhemoglobin O2 Delivery Device Liter Flow Vent Setting Inspired O2 Critical Value Sodium 139 Potassium 5.0 Chloride 98 Carbon Dioxide 28.0 Anion Gap 13 BUN 89 H Creatinine 6.32 H Estimated GFR 9 L POC Glucose Random Glucose 138 H Calcium 8.5 Phosphorus Magnesium 2.6 H Total Bilirubin 1.6 H AST 37 ALT 43 Alkaline Phosphatase 107 Total Protein 6.0 L Albumin 2.7 L Anti-Proteinase 3 Anti-Myeloperoxidase Glomerular Base Mem IgG 02/17/18 02/17/18 02/18/18 09:00 09:00 04:24 WBC RBC Hgb Hct MCV MCH MCHC RDW Plt Count MPV Prelim Diff (Auto) Neut % (Auto) Lymph % (Auto) [place] % (Auto) Eos % (Auto) Baso % (Auto) Neut # (Auto) Lymph # (Auto) [place] # (Auto) Eos # (Auto) Baso # (Auto) WBC Differential Diff Scan Differential Comment Platelet Estimate Platelet Morphology Ovalocytes Acanthocytes (Spur) Rouleaux PT INR Puncture Site Right radial Cancelled Right radial Patient Temperature 98.6 Cancelled 98.6 O2 Saturation 96 Cancelled 93 ABG pH 7.28 L* Cancelled 7.36 L ABG pCO2 61 H* Cancelled 44 H ABG pO2 258 H Cancelled 86 ABG HCO3 28 H Cancelled 24 ABG O2 Content 13.2 Cancelled 12.0 ABG Base Excess 1.4 Cancelled -0.8 ABG Methemoglobin 1.4 Cancelled 1.4 Eligio Test Present Cancelled Present Hemoglobin 9.3 L Cancelled 9.1 L Carboxyhemoglobin 2.5 Cancelled 2.7 O2 Delivery Device Ventilator Cancelled Ventilator Liter Flow Cancelled Vent Setting 550/16/10peep Cancelled Prvc20/550/0.8/+10 Inspired O2 100 Cancelled 35 Critical Value Yes Cancelled No Sodium Potassium Chloride Carbon Dioxide Anion Gap BUN Creatinine Estimated GFR POC Glucose Random Glucose Calcium Phosphorus Magnesium Total Bilirubin AST ALT Alkaline Phosphatase Total Protein Albumin Anti-Proteinase 3 Anti-Myeloperoxidase Glomerular Base Mem IgG 02/18/18 02/18/18 02/18/18 05:20 05:20 05:20 WBC 8.6 RBC 3.15 L Hgb 9.3 L Hct 29.0 L MCV 92.1 MCH 29.4 MCHC 31.9 L RDW 21.7 H Plt Count 52 L MPV 11.1 H Prelim Diff (Auto) Slide review pending Neut % (Auto) 91.3 H Lymph % (Auto) 6.1 L [place] % (Auto) 1.9 Eos % (Auto) 0.5 Baso % (Auto) 0.2 Neut # (Auto) 7.9 H Lymph # (Auto) 0.5 L [place] # (Auto) 0.2 Eos # (Auto) 0.0 Baso # (Auto) 0.0 WBC Differential . Diff Scan Auto diff confirmed Differential Comment . Platelet Estimate Low L Platelet Morphology Normal Ovalocytes 1+ H Acanthocytes (Spur) 1+ H Rouleaux PT 21.0 H INR 2.1 Puncture Site Patient Temperature O2 Saturation ABG pH ABG pCO2 ABG pO2 ABG HCO3 ABG O2 Content ABG Base Excess ABG Methemoglobin Eligio Test Hemoglobin Carboxyhemoglobin O2 Delivery Device Liter Flow Vent Setting Inspired O2 Critical Value Sodium 138 Potassium 5.6 H Chloride 99 Carbon Dioxide 24.3 Anion Gap 15 BUN 118 H Creatinine 7.46 H Estimated GFR 7 L POC Glucose Random Glucose 147 H Calcium 8.3 L Phosphorus Magnesium 2.7 H Total Bilirubin 1.1 H AST 30 ALT 45 Alkaline Phosphatase 109 Total Protein 6.1 L Albumin 2.7 L Anti-Proteinase 3 Anti-Myeloperoxidase Glomerular Base Mem IgG 02/18/18 02/18/18 08:44 12:28 WBC RBC Hgb Hct MCV MCH MCHC RDW Plt Count MPV Prelim Diff (Auto) Neut % (Auto) Lymph % (Auto) [place] % (Auto) Eos % (Auto) Baso % (Auto) Neut # (Auto) Lymph # (Auto) [place] # (Auto) Eos # (Auto) Baso # (Auto) WBC Differential Diff Scan Differential Comment Platelet Estimate Platelet Morphology Ovalocytes Acanthocytes (Spur) Rouleaux PT INR Puncture Site Patient Temperature O2 Saturation ABG pH ABG pCO2 ABG pO2 ABG HCO3 ABG O2 Content ABG Base Excess ABG Methemoglobin Eligio Test Hemoglobin Carboxyhemoglobin O2 Delivery Device Liter Flow Vent Setting Inspired O2 Critical Value Sodium Potassium Chloride Carbon Dioxide Anion Gap BUN Creatinine Estimated GFR POC Glucose 129 H 102 Random Glucose Calcium Phosphorus Magnesium Total Bilirubin AST ALT Alkaline Phosphatase Total Protein Albumin Anti-Proteinase 3 Anti-Myeloperoxidase Glomerular Base Mem IgG Result Diagrams: 02/18/18 05:20 02/18/18 05:20 Microbiology: Microbiology 02/17/18 07:55 Acid Fast Bacilli Smear - Final Bronchial Washings - Bronchial No acid fast bacilli seen 02/17/18 07:55 Gram Stain - Final Bronchial - Bronchial Bronchial Culture - Preliminary No growth in 24 hours 02/17/18 07:55 Fungal Smear - Final Bronchial Washings - Bronchial No fungal elements seen Imaging: Chest X-Ray 01/15/18 18:13 CONCLUSION: Mild interstitial prominence without focal airspace opacities. Slight improvement prior 12/12/2017. Stable cardiomegaly. Chest X-Ray 01/23/18 09:37 CONCLUSION: Mild interval increase in interstitial opacities of concern for pulmonary edema. Abdomen X-Ray 01/23/18 23:05 CONCLUSION: 1. Nonobstructive bowel gas pattern. Chest X-Ray 01/24/18 08:50 CONCLUSION: No appreciable change. Chest X-Ray 01/25/18 09:25 CONCLUSION: No significant change. Chest X-Ray 01/29/18 09:48 CONCLUSION: 1. Stable cardiomegaly and mild positive fluid balance. 2. No significant interval change. Chest CTA 01/30/18 00:00 CONCLUSION: 1. No evidence of pulmonary embolus. 2. Severe bilateral pulmonary parenchymal opacity with predominance at the dependent portions of the lungs. Difficult diagnosis includes pulmonary edema and infection. 3. Elongated lobulated nodular density in the right midlung following the major fissure likely represents loculated pleural effusion. 4. Enlarged pulmonary arteries suggesting pulmonary arterial hypertension. 5. Enlarged heart and small pericardial effusion. 6. Small left than right pleural effusions. 7. Mildly enlarged mediastinal lymph nodes, likely reactive. Chest X-Ray 02/04/18 00:00 CONCLUSION: 1. Patchy infiltrates bilaterally consistent with moderate pulmonary edema versus pneumonia. Clinical correlation is recommended. 2. Cardiomegaly. 3. Tiny bilateral pleural effusions. Chest X-Ray 02/09/18 08:04 CONCLUSION: 1. Cardiomegaly with interstitial edema. 2. Mild airspace disease in the right lung base, presumably atelectasis. Chest X-Ray 02/12/18 00:00 CONCLUSION: Stable chest x-ray with enlarged cardiac silhouette with bilateral diffuse interstitial process. Although nonspecific the changes could be related to pulmonary edema. Chest X-Ray 02/15/18 06:00 CONCLUSION: Cardiomegaly. Diffuse increased interstitial markings likely related to diffuse processes such as edema. Possible mild right pleural effusion. Chest X-Ray 02/16/18 06:00 CONCLUSION: Worsening bilateral pulmonary infiltrates. Radiographic pattern suggesting pulmonary edema. Chest X-Ray 02/17/18 00:00 CONCLUSION: 1. Endotracheal tube in appropriate position with tip measuring 6.5 cm from the cam. 2. Stable severe bilateral interstitial opacity and airspace consolidation. Chest X-Ray 02/18/18 00:00 CONCLUSION: Slight interval improvement in aeration Procedures: 01/26/18: Cardiac catheterization 02/02/18: Cardiac catheterization: Insertion of Medtronic Micra and AV gilbert ablation 02/17/2018: Bronchoscopy without biopsy . 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 Legal:His daughter, Dinorah Greer, is his healthcare decision maker/HCS. Ethical issues impacting care: None noted. Important Contacts: Daughter: Dinorah Greer (Cindy) . Prognosis: His prognosis is poor. He has significant hypoxic lung disease/respiratory failure, end-stage renal disease, diabetes, hypertension and is at risk for further complications and decline. He is likely terminal, and would be appropriate for hospice his goals were to comfort oriented. . Code Status: Full Code Plan: PLAN: FULL CODE, confirmed with patient again 02/09/18 DECISION-MAKING: The patient is currently not capacitated to make his own decisions, as he is intubated and sedated, however, previously requested assisted decision making with his daughter, Dinorah Greer (Cindy). He has chosen her to be his HCS. GOALS: Aggressive. Patient states he does not want to sign a DNR and would accept mechanical ventilation if required. SYMPTOMS: * Anxiety: Partially attenuated by recent sedation, but arousable with minimal stimulation, becoming agitated and anxious. 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 He is currently extubated to BiPAP mask, remains weak, tachypneic. Remains at risk for reintubation, which the family would accept. Palliative care will continue to follow the patient during hospitalization. . Attestation Attestation: To help prompt me to consider important information that might be impacting today's encounter and assessment, information from prior notes written by myself or my colleagues may have been "brought forward" into today's note. My signature on this note, however, is an attestation that I personally performed the exam, history, and/or decision-making noted today, and, unless otherwise indicated, the interactions with patient, family, and staff as well as the review of records all occurred today. I also attest that the listed assessment and stated plan reflect my best clinical judgment today based on the combination of historical information, prior notes, and today's exam/ interactions. When time spent is documented, it refers only to time spent today by the signer, or if indicated, combined time spent today by collaborating physician/nurse practitioner. .
--- NOTE | 2018-02-18 23:13 | MB ---
cc: Natalia Chapa MD, Dr. DATE: 02/18/2018 REFERRING PHYSICIAN: Dr. Gamboa. CHIEF COMPLAINT: Dr. Gamboa requests a consultation for Mr. Constantino regarding worsening thrombocytopenia. HISTORY OF PRESENT ILLNESS: Mr. Constantino is a 72-year-old man with multiple medical problems. He presented to the emergency room with complaints of chest pain. He has a history of hypertension, diabetes type 2, end-stage renal disease on hemodialysis, congestive heart failure. He is on chronic anticoagulant therapy with Coumadin since November. He recently had a cardiac evaluation and cardiac catheterization. He required his bridging off his anticoagulant therapy for a cardiac catheterization. He was placed back on Coumadin. He presented on 01/15/2018 with substernal chest pain. He was found to have atrial fibrillation with rapid ventricular response. His heart rate was in the 140s-150s on arrival. He had a dose of verapamil with minimal improvement. He was started on metoprolol. He responded with heart rate in the 100s. His blood pressure, however, was low. Controlling his atrial fibrillation was challenging. On 01/18/2018, intensive care was consulted. The patient had lightheadedness, chest discomfort with a drop in blood pressure. He was managed successfully on the floor. However, on 01/29/2018, critical care was reconsulted for worsening, saturation and saturation dropped down to 94% on 6 liters nasal cannula. He remained on high flow nasal cannula. Ultimately, he underwent AV gilbert ablation by Dr. Weinberg. Mitral implantation and AV gilbert ablation by Dr. Weinberg on 02/03/2018. He continued on hemodialysis with high flow oxygen. He was evaluated by Dr. Moore and underwent a bronchoscopic evaluation on 02/17/2018. Cytology is still pending. Hematology was consulted for worsening thrombocytopenia. Review of the electronic medical record showed that the platelet came in with progressive thrombocytopenia. The patient came in on 01/15/2018 with a platelet count 197,000. His platelet count gradually decreased to 155,000 on 02/05/2018. His platelet count remained above 100,000 until 02/13/2018. His platelet count decreased below 100,000 since. His platelet count was 52,000 at the time of the consultation. Review of his hemoglobin shows a decrease in hemoglobin after 02/14/2018. His white count was elevated until most recently. He had Coumadin held over the last 2 days. His INR was therapeutic on 02/17/2018 and 02/18. His INR was 2.5 and 2.1, respectively. He has not been started on any new medication. Review of her medications showed that heparin is being used for his dialysis. He is currently on cefepime that began on 02/12/2018. He also had doses of vancomycin, which appears to have stopped at this point. Mr. Constantino is awake, alert at the time of the consultation. His and daughter were at bedside. He has a lot of sputum production and is able to self suction. He denies any overt bleeding, although there is some blood-tinged sputum in the suction machine. He had dialysis this morning and still has lower extremity swelling. His daughter notes that his leg edema has persisted. He denies any prior history of liver disease. He denies any pain at present. He has a productive cough. Denies any headache. Denies any nosebleeds. The rest of his review of systems is negative. PAST MEDICAL HISTORY: Diabetes, type 2, congestive heart failure, chest pains, end-stage renal disease, atrial fibrillation with rapid ventricular response, end-stage renal disease on hemodialysis. PAST SURGICAL HISTORY: Cardiac catheterization, bronchoscopy, ablation. SOCIAL HISTORY: He is a former smoker. Denies any alcohol or illicit drug use. He is , lives with his . FAMILY HISTORY: Not obtained. ALLERGIES: NO KNOWN DRUG ALLERGIES. CURRENT MEDICATIONS: 1. Acetaminophen. 2. DuoNebs. 3. Lipitor. 4. Dulcolax. 5. Symbicort. 6. BuSpar. 7. PhosLo. 8. Cefepime. 9. Peridex. 10. Mycelex. 11. Benadryl p.r.n. 12. Epogen. 13. Fentanyl. 14. Gentamicin 15. Heparin. 16. Levemir. 17. Novolin. 18. Lactulose. 19. Solu-Medrol. 20. Morphine. 21. Theragran. 22. Zofran. 23. Oxycodone. 24. Compazine p.r.n. 25. Restoril. 26. Warfarin. PHYSICAL EXAMINATION: VITAL SIGNS: Temperature 98.7, heart rate 80, blood pressure 186/50. GENERAL: Mr. Constantino is a frail appearing, elderly man. He is awake, alert and responsive. HEENT: His pupils are small and reactive. Oropharynx is dry. LUNGS: Rhonchi on both sides. CARDIOVASCULAR: Reveals a rate controlled rhythm. ABDOMEN: Benign. No hepatosplenomegaly appreciated. Lower extremity with mild atrophy of muscles in the upper leg, bilateral lower extremity edema, senile purpura on both arms. Poor skin turgor. LABORATORY DATA: As described above. ASSESSMENT: Mr. Constantino is a 72-year-old man with multiple medical problems described above. He presents with chest pain and was found to have atrial fibrillation with rapid ventricular response. This was treated and addressed by cardiology. His course was complicated by his end-stage renal disease and hypoxia. He has had a bronchoscopic evaluation and pending cytology and culture. Hematology/oncology is consulted for the progressive thrombocytopenia. Noted his platelet count was decreased initially on 02/05/2018 and more so after 02/13/2018. The initial decline in platelet count is temporally related after the cardiac catheterization on 02/02/2018. Unable to rule out effect as the patient is on cephalosporin, heparin, and vancomycin. Concern about consumptive coagulopathy. His PT is prolonged despite holding the Coumadin the last 3 days. Baseline PT, PTT and fibrinogen will be obtained. Venous thromboembolic event will be excluded. He is at increased risk in light of his multiple medical problems and ICU stay. He has lower extremity swelling. A Doppler ultrasound of the lower extremity will be performed. Ultrasound of the liver and spleen is to evaluate for hypersplenism. He has no congestive heart failure. We considered a possible etiology of thrombocytopenia as well. Peripheral smear will be reviewed. Mr. Constantino and his family's questions were answered to their satisfaction. Lastly, although clinical suspicion is low, heparin-induced thrombocytopenia antibodies will be checked. MD SCOTT Walker/eliot , 08:49 PM , 09:04 PM
[2018-02-19] MEDS: Temazepam 15 MG Capsule PO PRN (01:46)
[2018-02-19] MEDS: Oral Hygiene Kit OROPHARYNG SCH ×4 (01:47→15:17)
[2018-02-19] MEDS: Clotrimazole 10 MG Troche BUCCAL SCH ×5 (06:21→21:47)
[2018-02-19 07:23] LABS: Reticulocyte Percent 1.3 % (0.4-3.0)
[2018-02-19 07:24] LABS: Baso % (Auto) 0.2 % (0.0-2.0); Eos % (Auto) 0.1 % (0.0-4.0); Hematocrit 25.6 % (39.0-51.0); Hemoglobin 8.2 gm/dL (13.0-17.0); Lymph # (Auto) 0.3 th/mm3 (1.0-4.8); Lymph % (Auto) 7.5 % (9.0-44.0); Mean Corpuscular Hemoglobin 29.3 pg (27.0-34.0); Mean Corpuscular Volume 91.7 fL (80.0-100.0); Mean Platelet Volume 10.6 fL (7.0-11.0); Mono # (Auto) 0.1 th/mm3 (0.0-0.9); Mono % (Auto) 3.3 % (0.0-8.0); Neut # (Auto) 3.9 th/mm3 (1.8-7.7); Neut % (Auto) 88.9 % (16.0-70.0); Platelet Count 39 th/mm3 (150-450); Red Blood Count 2.79 mil/mm3 (4.50-5.90); Red Cell Distribution Width 21.5 % (11.6-17.2); White Blood Count 4.4 th/mm3 (4.0-11.0)
[2018-02-19 07:36] LABS: Activated Partial Thrombo Time 37.7 sec (24.3-30.1); INR 2.3 Ratio; Prothrombin Time 22.9 sec (9.8-11.6)
[2018-02-19 07:40] LABS: Alanine Aminotransferase 41 U/L (12-78); Albumin 2.8 g/dL (3.4-5.0); Alkaline Phosphatase 93 U/L (45-117); Anion Gap 18 meq/L (5-15); Aspartate Aminotransferase 48 U/L (15-37); Blood Urea Nitrogen 86 mg/dL (7-18); Calcium 8.5 mg/dL (8.5-10.1); Carbon Dioxide 23.4 meq/L (21.0-32.0); Chloride 98 meq/L (98-107); Glomerular Filtration Rate 10 mL/min (>89); Glucose,Random 147 mg/dL (74-106); Magnesium 2.6 mg/dL (1.5-2.5); Potassium 4.9 meq/L (3.5-5.1); Sodium 139 meq/L (136-145); Total Protein 5.9 g/dL (6.4-8.2)
--- NOTE | 2018-02-19 08:27 | P.PN ---
Subjective Interval history: alert extubated no sob at rest Physical Exam Vital signs: Vital Signs 02/18/18 08:30 02/18/18 08:45 02/18/18 09:00 Temperature Pulse Rate 80 80 80 Respiratory Rate 17 20 19 Blood Pressure 115/55 L 119/56 L 107/53 L Pulse Oximetry 99 95 95 02/18/18 09:15 02/18/18 09:30 02/18/18 09:45 Temperature Pulse Rate 80 80 80 Respiratory Rate 20 22 16 Blood Pressure 95/50 L 93/55 L 95/52 L Pulse Oximetry 97 96 96 02/18/18 10:00 02/18/18 10:15 02/18/18 10:30 Temperature Pulse Rate 80 80 80 Respiratory Rate 19 19 18 Blood Pressure 92/48 L 95/51 L 98/54 L Pulse Oximetry 91 L 95 92 L 02/18/18 10:45 02/18/18 11:00 02/18/18 11:15 Temperature Pulse Rate 80 80 80 Respiratory Rate 16 17 21 Blood Pressure 98/55 L 98/57 L 95/55 L Pulse Oximetry 94 L 93 L 94 L 02/18/18 11:31 02/18/18 11:45 02/18/18 11:57 Temperature Pulse Rate 80 80 Respiratory Rate 26 H 21 24 Blood Pressure 113/53 L 105/52 L Pulse Oximetry 88 L 86 L 02/18/18 12:00 02/18/18 12:15 02/18/18 12:30 Temperature 99.9 F H Pulse Rate 80 80 80 Respiratory Rate 22 17 19 Blood Pressure 102/51 L 100/49 L 98/54 L Pulse Oximetry 82 L 91 L 89 L 02/18/18 12:45 02/18/18 12:47 02/18/18 13:00 Temperature Pulse Rate 80 80 Respiratory Rate 17 17 18 Blood Pressure 94/51 L 94/51 L Pulse Oximetry 92 L 100 92 L 02/18/18 13:02 02/18/18 13:15 02/18/18 13:30 Temperature Pulse Rate 80 80 Respiratory Rate 17 17 16 Blood Pressure 96/52 L 92/49 L Pulse Oximetry 92 L 93 L 92 L 02/18/18 13:45 02/18/18 14:00 02/18/18 14:15 Temperature Pulse Rate 80 80 80 Respiratory Rate 15 18 15 Blood Pressure 92/46 L 97/52 L 87/48 L Pulse Oximetry 93 L 93 L 91 L 02/18/18 14:30 02/18/18 14:45 02/18/18 15:00 Temperature Pulse Rate 80 80 80 Respiratory Rate 16 15 15 Blood Pressure 94/48 L 94/51 L 98/49 L Pulse Oximetry 96 100 90 L 02/18/18 15:15 02/18/18 15:23 02/18/18 15:30 Temperature Pulse Rate 80 80 Respiratory Rate 28 H 32 H Blood Pressure 91/51 L 93/50 L Pulse Oximetry 91 L 100 95 02/18/18 15:45 02/18/18 16:00 02/18/18 18:00 Temperature 98.7 F Pulse Rate 80 80 80 Respiratory Rate 30 H 22 Blood Pressure 91/50 L 86/50 L Pulse Oximetry 95 95 02/18/18 20:00 02/18/18 22:00 02/18/18 22:27 Temperature 98.4 F Pulse Rate 80 80 80 Respiratory Rate 26 H 18 Blood Pressure 89/52 L Pulse Oximetry 97 02/18/18 22:40 02/18/18 23:30 02/19/18 00:00 Temperature 97.9 F Pulse Rate 80 Respiratory Rate 36 H Blood Pressure 96/53 L Pulse Oximetry 93 L 94 L 96 02/19/18 02:00 02/19/18 04:00 02/19/18 04:07 Temperature 97.9 F Pulse Rate 80 80 80 Respiratory Rate 29 H Blood Pressure 101/53 L Pulse Oximetry 94 L 02/19/18 04:36 02/19/18 06:00 02/19/18 07:45 Temperature Pulse Rate 80 Respiratory Rate Blood Pressure Pulse Oximetry 94 L 97 Intake & Output 02/18/18 02/19/18 02/19/18 18:59 06:59 18:59 Intake Total 300 / 300 240 / 240 Output Total 4000 / 4000 30 / 30 Balance -3700 / -3700 210 / 210 Weight 93.5 kg Intake: IV 300 / 300 Flexbumin 25% Inj 100 ML @ 60 200 / 200 mls/hr IV.SIG WITH DIALYSIS PRN Rx#:[id number] Maxipime Inj 1,000 MG In NS Inj 100 / 100 100 ML @ 200 mls/hr IV.SIG Q24H PEDRO Rx#:[id number] Oral 240 / 240 Oral Supplement 0 / 0 Output: Urine 30 / 30 Stool 0 / 0 Urine/Stool Mix 0 / 0 Hemodialysis Amount 4000 / 4000 Other: Date of Last Bowel Movement 02/17/18 02/19/18 # Bowel Movements 1 2 # Incontinent Bowel Movements 0 Narrative: GENERAL: Frail, elderly. on o2 nasal canula, high flow HEENT: PERRL CARDIOVASCULAR: Paced rhythm. RESPIRATORY: bilateral wheezes, rhonchi GASTROINTESTINAL: Abdomen soft, non-tender, nondistended. Hepatic and splenic margins not palpable. Decreased bowel sounds. MUSCULOSKELETAL: Extremities without clubbing, cyanosis, mild edema. No obvious deformities. Cath site without hematoma. NEUROLOGICAL: Awake and alert. No obvious cranial nerve deficits. Results - Labs CBC & Chem 7: 02/19/18 06:57 02/19/18 06:57 Laboratory Results - last 24 hr 02/18/18 02/18/18 02/18/18 08:44 12:28 16:57 WBC RBC Hgb Hct MCV MCH MCHC RDW Plt Count MPV Prelim Diff (Auto) Neut % (Auto) Lymph % (Auto) Cannon % (Auto) Eos % (Auto) Baso % (Auto) Neut # (Auto) Lymph # (Auto) Cannon # (Auto) Eos # (Auto) Baso # (Auto) Differential Comment Smear Path Review Retic Count Absolute Retic PT INR APTT Fibrinogen Sodium Potassium Chloride Carbon Dioxide Anion Gap BUN Creatinine Estimated GFR POC Glucose 129 H 102 106 Random Glucose Calcium Magnesium Total Bilirubin AST ALT Alkaline Phosphatase Total Protein Albumin 02/18/18 02/19/18 02/19/18 22:53 06:57 06:57 WBC 4.4 RBC 2.79 L Hgb 8.2 L Hct 25.6 L MCV 91.7 MCH 29.3 MCHC 32.0 RDW 21.5 H Plt Count 39 L MPV 10.6 Prelim Diff (Auto) Slide review pending Neut % (Auto) 88.9 H Lymph % (Auto) 7.5 L Cannon % (Auto) 3.3 Eos % (Auto) 0.1 Baso % (Auto) 0.2 Neut # (Auto) 3.9 Lymph # (Auto) 0.3 L Cannon # (Auto) 0.1 Eos # (Auto) 0.0 Baso # (Auto) 0.0 Differential Comment . Smear Path Review Retic Count Absolute Retic PT INR APTT Fibrinogen Sodium 139 Potassium 4.9 Chloride 98 Carbon Dioxide 23.4 Anion Gap 18 H BUN 86 H Creatinine 5.90 H Estimated GFR 10 L POC Glucose 117 H Random Glucose 147 H Calcium 8.5 Magnesium 2.6 H Total Bilirubin 1.9 H AST 48 H ALT 41 Alkaline Phosphatase 93 Total Protein 5.9 L Albumin 2.8 L 02/19/18 02/19/18 02/19/18 06:57 06:57 06:57 WBC RBC Hgb Hct MCV MCH MCHC RDW Plt Count MPV Prelim Diff (Auto) Neut % (Auto) Lymph % (Auto) Cannon % (Auto) Eos % (Auto) Baso % (Auto) Neut # (Auto) Lymph # (Auto) Cannon # (Auto) Eos # (Auto) Baso # (Auto) Differential Comment Smear Path Review Retic Count 1.3 Absolute Retic 37.9 PT 22.9 H INR 2.3 APTT 37.7 H Fibrinogen 434 H Sodium Potassium Chloride Carbon Dioxide Anion Gap BUN Creatinine Estimated GFR POC Glucose Random Glucose Calcium Magnesium Total Bilirubin AST ALT Alkaline Phosphatase Total Protein Albumin 02/19/18 07:27 WBC RBC Hgb Hct MCV MCH MCHC RDW Plt Count MPV Prelim Diff (Auto) Neut % (Auto) Lymph % (Auto) Cannon % (Auto) Eos % (Auto) Baso % (Auto) Neut # (Auto) Lymph # (Auto) Cannon # (Auto) Eos # (Auto) Baso # (Auto) Differential Comment Smear Path Review Retic Count Absolute Retic PT INR APTT Fibrinogen Sodium Potassium Chloride Carbon Dioxide Anion Gap BUN Creatinine Estimated GFR POC Glucose 159 H Random Glucose Calcium Magnesium Total Bilirubin AST ALT Alkaline Phosphatase Total Protein Albumin Microbiology 02/17/18 07:55 Bronchial Washings - Bronchial Acid Fast Bacilli Smear - Final No acid fast bacilli seen 02/17/18 07:55 Bronchial - Bronchial Gram Stain - Final 02/17/18 07:55 Bronchial - Bronchial Bronchial Culture - Preliminary No growth in 24 hours - Imaging Impressions Chest X-Ray 02/18/18 00:00 CONCLUSION: Slight interval improvement in aeration Assessment and Plan - Plan RESPIRATORY FAILURE, pna/chf ENAL FAILURE ? 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
--- NOTE | 2018-02-19 08:43 | P.PNCC ---
Subjective Subjective Remarks/Hospital Course: This is a 72yM with history of ESRD on HD who was recently admitted last month for supraventricular tachycardia. It appears from the records that normal sinus rhythm was restored prior to discharge home. He re-presented to the hospital with atrial fibrillation with rapid ventricular response which has been poorly responsive to esmolol infusion. It is noted that there is still a shortage of diltiazem infusions, so none is available to place the patient on. Dr. Waters with cardiology was consulted, as was Dr. Weinberg. The patient has also had hypotension during this hospital stay with most blood pressure readings between 80-100 systolic. This morning, Bystolic was started and was given together with amiodarone 400mg and metoprolol 25mg po. Approximately 2 hours after this, his blood pressure dropped into the 60s and 70s systolic. I was consulted by Dr. Wilcox to evaluate and manage his hemodynamics in the setting of poorly-controlled atrial fibrillation and hypotension. The patient does complain of light-headedness and a little chest discomfort which is new since his blood pressure has dropped into the 70s. He denies any other complaints and tolerated breakfast this AM. ROS otherwise negative. troponins have been serially negative this admission. I performed bedside critical care echocardiography and compared this to images obtained from last hospital admission on 11/2017. Given the poorly controlled nature of the patient's rate, wall motion and accurate ejection fraction are difficult to assess with accuracy. It does appear that the patient has relatively preserved EF and at most only mildly depressed LVEF. Aortic valve is sclerotic but appears unchanged from prior echo which calculated the valve area at ~2cm. no pericardial effusion. IVC is dilated around 2cm without respiratory variation. heart rate on my evaluation is 121. 8/2: Critical care reconsulted by Dr. Weinberg for worsening respiratory failure. Patient dropped O2 sats to 84% on 6 L nasal cannula. When I evaluated patient he was resting in bed. Placed him on high flow nasal cannula 30 L/min 60% FiO2 with which his O2 sats came up to 90%. 01/30: Remains on high flow nasal cannula. CT chest negative for PE shows consolidation bilateral lower lobes and a loculated effusion on the right. Defer to pulmonary regarding further recommendations. 01/31: Remains on high flow nasal cannula. Being dialyzed currently. On 30 L/ min 60% FiO2. O2 sats 96%. Feels that he is breathing a little better. 02/01, 02/02: On high flow nasal cannula at 20 L/min 50% FiO2. Shortness of breath gradually improving. 02/03: On high flow nasal cannula 20 L/min 60% FiO2. Underwent mitral implantation and AV gilbert ablation yesterday by Dr. Weinberg. Sitting up in bed today. Appears comfortable not in any acute distress. 02/04 Patient 02/04 Patient is awake and alert on high flow oxygen 25L with 70% FIO2> Afebrile. For HD today 02/05 No events overnight. s/p HD yesterday with removal 5L. Afebrile. On 25L with FIO2 down to 50% 02/06 Patient remains on high flow oxygen with 25L 55%FIO2. Afebrile. 02/07 Patient s/p HD yesterday with removal 4.5L. Remains on high flow oxygen 25L with 50% FIO2. Afebrile. 02/08 Patient s/p HD yesterday with removal 3L. On high flow oxygen. Afebrile. 02/09 Patient remains on high flow oxygen 25L with 55% FIO2. Afebrile. For HD today 02/10 Patient is awake and alert. s/p HD yesterday with removal 3L. On 30L with 60% FIO2. Afebrile. 02/11 Patient is n 30L with 55% FIO2. Afebrile. 02/12: Patient remains on high flow nasal cannula. Very tired. Afebrile. Tolerating diet. 02/13: Hemodialysis is remained level. Unable to take fluid off due to hypotension. Remains on high flow nasal cannula 30 L 60% FiO2. Tolerating diet. Weak. 02/14: Afebrile. Remains on high flow nasal cannula at 35 L 60%. Plan for bronchoscopy with Dr. Moore on Friday. 02/15: Afebrile. Disconnect oxygen desaturation. Currently on high flow nasal cannula 40 L at 80%. Will recheck chest x-ray in a.m. Hemoptysis present but not as copious as before previously. 02/16: Worsening O2 requirements over the night, currently on FiO2 of 1 45 L/min high flow nasal cannula. Patient remains awake and conversant, still with some hemoptysis. Bronchoscopy scheduled for Friday. T-max of 98.5. 8/21: No events over the night. Patient remains on high flow nasal cannula at 100%. This morning patient underwent bronchoscopy without biopsy and postprocedure patient remained intubated. Results of bronchoscopy not known at this time. T-max of 99.1, urine output over the last 24 hours 1200 mL's. 02/18: No events over the night. Patient remains intubated and sedated. Significant improvement in O2 requirements, currently on 35% O2 and PEEP of 10. T-max of 98.9, urine output over the last 24 hours 1625 mL's. SUBJECTIVE: 02/19: Patient was successfully extubated yesterday afternoon and he did well postextubation. This morning he is on high flow nasal cannula, 25 L/min and 70 % with O2 sat at 100%. Patient seems tired, easily arousable, denies any complaints. Still with some hemoptysis but less. T-max of 99.9. He underwent hemodialysis yesterday. Objective Vital Signs / I&O: Vital Signs 02/18/18 08:45 02/18/18 09:00 02/18/18 09:15 Temperature Pulse Rate 80 80 80 Respiratory Rate 20 19 20 Blood Pressure 119/56 L 107/53 L 95/50 L Pulse Oximetry 95 95 97 02/18/18 09:30 02/18/18 09:45 02/18/18 10:00 Temperature Pulse Rate 80 80 80 Respiratory Rate 22 16 19 Blood Pressure 93/55 L 95/52 L 92/48 L Pulse Oximetry 96 96 91 L 02/18/18 10:15 02/18/18 10:30 02/18/18 10:45 Temperature Pulse Rate 80 80 80 Respiratory Rate 19 18 16 Blood Pressure 95/51 L 98/54 L 98/55 L Pulse Oximetry 95 92 L 94 L 02/18/18 11:00 02/18/18 11:15 02/18/18 11:31 Temperature Pulse Rate 80 80 80 Respiratory Rate 17 21 26 H Blood Pressure 98/57 L 95/55 L 113/53 L Pulse Oximetry 93 L 94 L 88 L 02/18/18 11:45 02/18/18 11:57 02/18/18 12:00 Temperature 99.9 F H Pulse Rate 80 80 Respiratory Rate 21 24 22 Blood Pressure 105/52 L 102/51 L Pulse Oximetry 86 L 82 L 02/18/18 12:15 02/18/18 12:30 02/18/18 12:45 Temperature Pulse Rate 80 80 80 Respiratory Rate 17 19 17 Blood Pressure 100/49 L 98/54 L 94/51 L Pulse Oximetry 91 L 89 L 92 L 02/18/18 12:47 02/18/18 13:00 02/18/18 13:02 Temperature Pulse Rate 80 Respiratory Rate 17 18 17 Blood Pressure 94/51 L Pulse Oximetry 100 92 L 92 L 02/18/18 13:15 02/18/18 13:30 02/18/18 13:45 Temperature Pulse Rate 80 80 80 Respiratory Rate 17 16 15 Blood Pressure 96/52 L 92/49 L 92/46 L Pulse Oximetry 93 L 92 L 93 L 02/18/18 14:00 02/18/18 14:15 02/18/18 14:30 Temperature Pulse Rate 80 80 80 Respiratory Rate 18 15 16 Blood Pressure 97/52 L 87/48 L 94/48 L Pulse Oximetry 93 L 91 L 96 02/18/18 14:45 02/18/18 15:00 02/18/18 15:15 Temperature Pulse Rate 80 80 80 Respiratory Rate 15 15 28 H Blood Pressure 94/51 L 98/49 L 91/51 L Pulse Oximetry 100 90 L 91 L 02/18/18 15:23 02/18/18 15:30 02/18/18 15:45 Temperature Pulse Rate 80 80 Respiratory Rate 32 H 30 H Blood Pressure 93/50 L 91/50 L Pulse Oximetry 100 95 95 02/18/18 16:00 02/18/18 18:00 02/18/18 20:00 Temperature 98.7 F 98.4 F Pulse Rate 80 80 80 Respiratory Rate 22 26 H Blood Pressure 86/50 L 89/52 L Pulse Oximetry 95 97 02/18/18 22:00 02/18/18 22:27 02/18/18 22:40 Temperature Pulse Rate 80 80 Respiratory Rate 18 Blood Pressure Pulse Oximetry 93 L 02/18/18 23:30 02/19/18 00:00 02/19/18 02:00 Temperature 97.9 F Pulse Rate 80 80 Respiratory Rate 36 H Blood Pressure 96/53 L Pulse Oximetry 94 L 96 02/19/18 04:00 02/19/18 04:07 02/19/18 04:36 Temperature 97.9 F Pulse Rate 80 80 Respiratory Rate 29 H Blood Pressure 101/53 L Pulse Oximetry 94 L 94 L 02/19/18 06:00 02/19/18 07:45 Temperature Pulse Rate 80 Respiratory Rate Blood Pressure Pulse Oximetry 97 Intake & Output 02/18/18 02/19/18 02/19/18 18:59 06:59 18:59 Intake Total 300 / 300 240 / 240 Output Total 4000 / 4000 30 / 30 Balance -3700 / -3700 210 / 210 Weight 93.5 kg Intake: IV 300 / 300 Flexbumin 25% Inj 100 ML @ 60 200 / 200 mls/hr IV.SIG WITH DIALYSIS PRN Rx#:[id number] Maxipime Inj 1,000 MG In NS Inj 100 / 100 100 ML @ 200 mls/hr IV.SIG Q24H PEDRO Rx#:[id number] Oral 240 / 240 Oral Supplement 0 / 0 Output: Urine 30 / 30 Stool 0 / 0 Urine/Stool Mix 0 / 0 Hemodialysis Amount 4000 / 4000 Other: Date of Last Bowel Movement 02/17/18 02/19/18 # Bowel Movements 1 2 # Incontinent Bowel Movements 0 Result Diagrams: 02/19/18 06:57 02/19/18 06:57 Objective Remarks: GENERAL: Elderly gentleman, sleeping, easily arousable, ill-appearing. SKIN: No rash, no cyanosis. HEENT: Pupils are equal and reactive, sclerae are anicteric. Neck is supple without rigidity. No neck vein distention. No carotid bruit. Moist mucous membranes, no thrush. CARDIOVASCULAR: Regular heart sounds. Systolic ejection murmur at apex 3/6. RESPIRATORY: Scattered coarse breath sounds bilateral. No wheezes. Good air entry. GASTROINTESTINAL: Abdomen is soft, non-tender, not distended. Bowel sounds are present. No hepatomegaly, no splenomegaly. MUSCULOSKELETAL: Warm and well-perfused. Trace bilateral lower extremity peripheral edema. Pulses are present. SCDs in place. NEURO: Sleeping, easily arousable, following commands. Moves both upper and lower extremities. 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 Pain medications as needed. Continue buspirone 5 mg daily CV: Status post cardiac cath. Being followed by Dr. Weinberg. S/p ablation and micra placement 02/02/18 due to failure of medical management for rate control Echo showed EF 60-65%, mod- severe pulm HTN 60-70mmHg On Lipitor 80mg qhs Pulmo: Continue high flow nasal cannula at 25 L/min. FiO2 decreased to 0.6. Follow-up O2 sats Bronchodilators Continue methylprednisolone succinate to 30mg daily, tapered on 02/17 On budesonide/formoterol 80/4.5 2 puffs twice daily. On sildenafil 30mg TID for pulm HTN Post bronchoscopy on 02/17 GI/liver: Currently on clear liquids, will advance to cardiac, renal and diabetic diet Renal/: Monitor renal function, I/O's, avoid nephrotoxins Renal is following. HD per nephrology ID: s/p Zosyn (01/24- 02/07) 02/09 Sputum: Klebsiella pneumonia. Continue cefepime 1g daily day 9 Monitor for signs of infections ( Fever, WBC) BAL cultures are pending Endocrine: SSI (high scale) for glycemic control, insulin detemir 5u BID Heme: Monitor CBC, Coags- Worsening thrombocytopenia Receiving heparin with dialysis HIT sent Followed by Hematology Prophylaxis: Famotidine/SCDs. Level 2 follow-up No family present at bedside.
[2018-02-19 08:45] LABS: Lymphocytes 1 % (9-44); Monocytes 2 % (0-8); Platelet Morphology Normal (Normal)
[2018-02-19 08:46] LABS: Acanthocytes 1+; Ovalocytes 1+
[2018-02-19] MEDS: Calcium Acetate 667 MG Capsule PO SCH ×3 (09:04→18:47)
[2018-02-19] MEDS: MethylPREDNISolone Sod Succinate Inj 40 MG/ML Vial IV.PUSH SCH (09:05)
[2018-02-19] MEDS: Chlorhexidine 0.12% Oral Kit 15 ML UDC OROPHARYNG SCH ×2 (09:07→20:09)
[2018-02-19] MEDS: Insulin Detemir Inj 1,000 UNIT/10 ML Vial SQ SCH ×2 (09:07→21:47)
[2018-02-19] MEDS: Insulin NovoLIN Regular Correctional Sugar Inj SQ SCH ×4 (09:07→21:48)
[2018-02-19] MEDS: Senna/Docusate Sodium 8.6/50 MG Tablet PO SCH ×2 (09:08→21:47)
[2018-02-19] MEDS: Budesonide-Formoterol 160/4.5 MCG 6 GM Inhaler INH SCH ×2 (09:08→21:49)
--- NOTE | 2018-02-19 09:45 | US ---
EXAM DATE: 02/19/2018 9:32 AM EDT AGE/SEX: 72 years / Male INDICATIONS: Thrombocytopenia. Evaluate the liver and spleen. CLINICAL DATA: This is the patient's initial encounter. Patient reports that signs and symptoms have been present for 1 day and indicates a pain score of 8/10. MEDICAL/SURGICAL HISTORY: Congestive heart failure. Hypertension. Diabetes mellitus type II. Atrial fibrillation. End stage renal disease on dialysis. Supraventricular tachycardia. Atrial fi brillation. Agent orange exposure. Lithotripsy. Left knee surgery. COMPARISON: [facility] [place], KIDNEY/RENAL/BLADDER, 12/08/2017. . MEASUREMENTS: Liver:__ 16.7 cm. Common Bile Duct:__ 8mm. Right Kidney:__ 13.9 x 7.1 x 6.2 cm. FINDINGS: Liver: Normal echotexture without focal lesion or ductal dilatation. Hepatic veins and IVC are disten ded. Portal Vein: Pulsatile and biphasic flow is identified in the portal vein. Common Duct: No intraluminal mass or stone visualized. Gallbladder: Gallbladder is distended with echogenic nonshadowing sludge. No wall thickening is pres ent. The lollypop machine operator felt a positive sonographic Malloy sign was present. Pancreas: No mass is seen. No significant ductal dilatation is identified. Right Kidney: Increased echotexture of the renal parenchyma. Multiple cystic lesions are present wit hin the 2 largest measuring 2.3 cm and 2.8 cm. These cystic lesions have a simple appearance. Other: There is trace perihepatic free fluid. The spleen is normal in size measuring 11.7 cm. CONCLUSION: 1. Spleen is normal in size and appearance. 2. Gallbladder is filled with sludge. Rn Enterostomal felt based positive sonographic Malloy sign may be present. Suggest correlating with the clinical examination and history. There is any clinical concer n for acute cholecystitis consider evaluation with hepatobiliary scintigraphy to evaluate for cystic duct obstruction. 3. Dilated hepatic veins, IVC, and pulsatile blood flow in the main portal vein suggest elevated rig ht heart pressures or tricuspid regurgitation. 4. Right kidney changes consistent with end-stage renal disease including abnormal increased echotex ture and multiple cystic lesions. 5. There is trace perihepatic free fluid. Electronically signed by: Osmar Velasco MD 02/19/2018 9:44 AM EDT
--- NOTE | 2018-02-19 12:04 | P.PNNP ---
Subjective Interval history: He was successfully extubated, placed back on high flow. However this AM became hypoxic and placed on BiPap. Awake, not in distress. <Jyoti Ceron - Last Filed: 02/19/18 12:00> Physical Exam Vital signs: Vital Signs 02/18/18 12:15 02/18/18 12:30 02/18/18 12:45 Temperature Pulse Rate 80 80 80 Respiratory Rate 17 19 17 Blood Pressure 100/49 L 98/54 L 94/51 L Pulse Oximetry 91 L 89 L 92 L 02/18/18 12:47 02/18/18 13:00 02/18/18 13:02 Temperature Pulse Rate 80 Respiratory Rate 17 18 17 Blood Pressure 94/51 L Pulse Oximetry 100 92 L 92 L 02/18/18 13:15 02/18/18 13:30 02/18/18 13:45 Temperature Pulse Rate 80 80 80 Respiratory Rate 17 16 15 Blood Pressure 96/52 L 92/49 L 92/46 L Pulse Oximetry 93 L 92 L 93 L 02/18/18 14:00 02/18/18 14:15 02/18/18 14:30 Temperature Pulse Rate 80 80 80 Respiratory Rate 18 15 16 Blood Pressure 97/52 L 87/48 L 94/48 L Pulse Oximetry 93 L 91 L 96 02/18/18 14:45 02/18/18 15:00 02/18/18 15:15 Temperature Pulse Rate 80 80 80 Respiratory Rate 15 15 28 H Blood Pressure 94/51 L 98/49 L 91/51 L Pulse Oximetry 100 90 L 91 L 02/18/18 15:23 02/18/18 15:30 02/18/18 15:45 Temperature Pulse Rate 80 80 Respiratory Rate 32 H 30 H Blood Pressure 93/50 L 91/50 L Pulse Oximetry 100 95 95 02/18/18 16:00 02/18/18 18:00 02/18/18 20:00 Temperature 98.7 F 98.4 F Pulse Rate 80 80 80 Respiratory Rate 22 26 H Blood Pressure 86/50 L 89/52 L Pulse Oximetry 95 97 02/18/18 22:00 02/18/18 22:27 02/18/18 22:40 Temperature Pulse Rate 80 80 Respiratory Rate 18 Blood Pressure Pulse Oximetry 93 L 02/18/18 23:30 02/19/18 00:00 02/19/18 02:00 Temperature 97.9 F Pulse Rate 80 80 Respiratory Rate 36 H Blood Pressure 96/53 L Pulse Oximetry 94 L 96 02/19/18 03:45 02/19/18 04:00 02/19/18 04:07 Temperature 97.9 F Pulse Rate 80 80 80 Respiratory Rate 14 29 H Blood Pressure 90/53 L 101/53 L Pulse Oximetry 95 94 L 02/19/18 04:15 02/19/18 04:30 02/19/18 04:36 Temperature Pulse Rate 80 80 Respiratory Rate 15 17 Blood Pressure 104/51 L 114/57 L Pulse Oximetry 94 L 97 94 L 02/19/18 04:45 02/19/18 05:00 02/19/18 05:15 Temperature Pulse Rate 80 80 80 Respiratory Rate 23 18 18 Blood Pressure 108/53 L 104/50 L 100/52 L Pulse Oximetry 90 L 89 L 93 L 02/19/18 05:30 02/19/18 05:45 02/19/18 06:00 Temperature Pulse Rate 80 80 80 Respiratory Rate 13 22 30 H Blood Pressure 98/50 L 103/54 L 99/51 L Pulse Oximetry 93 L 89 L 78 L 02/19/18 06:15 02/19/18 06:30 02/19/18 06:45 Temperature Pulse Rate 80 80 80 Respiratory Rate 60 H 12 17 Blood Pressure 104/54 L 102/53 L 96/53 L Pulse Oximetry 98 95 93 L 02/19/18 07:00 02/19/18 07:15 02/19/18 07:30 Temperature Pulse Rate 80 80 80 Respiratory Rate 23 12 13 Blood Pressure 97/51 L 106/56 L 104/51 L Pulse Oximetry 93 L 98 98 02/19/18 07:45 02/19/18 08:00 02/19/18 08:15 Temperature 97.5 F L Pulse Rate 80 80 80 Respiratory Rate 16 24 14 Blood Pressure 100/50 L 108/56 L 108/55 L Pulse Oximetry 99 93 L 90 L 02/19/18 08:30 02/19/18 08:45 02/19/18 09:01 Temperature Pulse Rate 80 80 80 Respiratory Rate 17 15 24 Blood Pressure 107/57 L 112/56 L 102/51 L Pulse Oximetry 91 L 94 L 83 L 02/19/18 09:15 02/19/18 09:30 02/19/18 09:45 Temperature Pulse Rate 80 80 80 Respiratory Rate 28 H 28 H 19 Blood Pressure 111/56 L 104/55 L 90/44 L Pulse Oximetry 84 L 88 L 88 L 02/19/18 09:46 02/19/18 10:00 02/19/18 10:25 Temperature Pulse Rate 80 80 Respiratory Rate 20 Blood Pressure Pulse Oximetry 99 02/19/18 11:38 Temperature Pulse Rate Respiratory Rate Blood Pressure Pulse Oximetry 100 Intake & Output 02/18/18 02/19/18 02/19/18 18:59 06:59 18:59 Intake Total 300 / 300 240 / 240 Output Total 4000 / 4000 30 / 30 Balance -3700 / -3700 210 / 210 Weight 93.5 kg Intake: IV 300 / 300 Flexbumin 25% Inj 100 ML @ 60 200 / 200 mls/hr IV.SIG WITH DIALYSIS PRN Rx#:[id number] Maxipime Inj 1,000 MG In NS Inj 100 / 100 100 ML @ 200 mls/hr IV.SIG Q24H PEDRO Rx#:[id number] Oral 240 / 240 Oral Supplement 0 / 0 Output: Urine 30 / 30 Stool 0 / 0 Urine/Stool Mix 0 / 0 Hemodialysis Amount 4000 / 4000 Other: Date of Last Bowel Movement 02/17/18 02/19/18 02/19/18 # Bowel Movements 1 2 # Incontinent Bowel Movements 0 - Constitutional no acute distress - Routine HEENT Exam Head: Present: normocephalic - Routine Neck Exam Present: supple, full ROM, JVD - Routine Respiratory Exam Present: rales. Absent: accessory muscle use - Routine Cardiovascular Exam Present: RRR, S1, S2 - Routine Abdominal Exam Present: soft, normoactive bowel sounds - Routine Extremities Exam Present: full ROM. Absent: edema - Routine Skin Exam Present: intact, dry, warm - Routine Neurological Exam Present: alert, oriented X3, CN II-XII intact - Detailed Neurological Exam: Coma Scale Eye Opening: Spontaneous Verbal Response: Oriented Motor Response: Obey commands Tilly Coma Scale Total: 15 - Routine Psychiatric Exam Present: normal affect, normal thought process <Jyoti Ceron - Last Filed: 02/19/18 12:00> Vital signs: Vital Signs 02/18/18 16:00 02/18/18 18:00 02/18/18 20:00 Temperature 98.7 F 98.4 F Pulse Rate 80 80 80 Respiratory Rate 22 26 H Blood Pressure 86/50 L 89/52 L Pulse Oximetry 95 97 02/18/18 22:00 02/18/18 22:27 02/18/18 22:40 Temperature Pulse Rate 80 80 Respiratory Rate 18 Blood Pressure Pulse Oximetry 93 L 02/18/18 23:30 02/19/18 00:00 02/19/18 02:00 Temperature 97.9 F Pulse Rate 80 80 Respiratory Rate 36 H Blood Pressure 96/53 L Pulse Oximetry 94 L 96 02/19/18 03:45 02/19/18 04:00 02/19/18 04:07 Temperature 97.9 F Pulse Rate 80 80 80 Respiratory Rate 14 29 H Blood Pressure 90/53 L 101/53 L Pulse Oximetry 95 94 L 02/19/18 04:15 02/19/18 04:30 02/19/18 04:36 Temperature Pulse Rate 80 80 Respiratory Rate 15 17 Blood Pressure 104/51 L 114/57 L Pulse Oximetry 94 L 97 94 L 02/19/18 04:45 02/19/18 05:00 02/19/18 05:15 Temperature Pulse Rate 80 80 80 Respiratory Rate 23 18 18 Blood Pressure 108/53 L 104/50 L 100/52 L Pulse Oximetry 90 L 89 L 93 L 02/19/18 05:30 02/19/18 05:45 02/19/18 06:00 Temperature Pulse Rate 80 80 80 Respiratory Rate 13 22 30 H Blood Pressure 98/50 L 103/54 L 99/51 L Pulse Oximetry 93 L 89 L 78 L 02/19/18 06:15 02/19/18 06:30 02/19/18 06:45 Temperature Pulse Rate 80 80 80 Respiratory Rate 60 H 12 17 Blood Pressure 104/54 L 102/53 L 96/53 L Pulse Oximetry 98 95 93 L 02/19/18 07:00 02/19/18 07:15 02/19/18 07:30 Temperature Pulse Rate 80 80 80 Respiratory Rate 23 12 13 Blood Pressure 97/51 L 106/56 L 104/51 L Pulse Oximetry 93 L 98 98 02/19/18 07:45 02/19/18 08:00 02/19/18 08:15 Temperature 97.5 F L Pulse Rate 80 80 80 Respiratory Rate 16 24 14 Blood Pressure 100/50 L 108/56 L 108/55 L Pulse Oximetry 99 93 L 90 L 02/19/18 08:30 02/19/18 08:45 02/19/18 09:01 Temperature Pulse Rate 80 80 80 Respiratory Rate 17 15 24 Blood Pressure 107/57 L 112/56 L 102/51 L Pulse Oximetry 91 L 94 L 83 L 02/19/18 09:15 02/19/18 09:30 02/19/18 09:45 Temperature Pulse Rate 80 80 80 Respiratory Rate 28 H 28 H 19 Blood Pressure 111/56 L 104/55 L 90/44 L Pulse Oximetry 84 L 88 L 88 L 02/19/18 09:46 02/19/18 10:00 02/19/18 10:15 Temperature Pulse Rate 80 80 80 Respiratory Rate 20 18 21 Blood Pressure 89/54 L 90/49 L Pulse Oximetry 90 L 83 L 02/19/18 10:25 02/19/18 10:30 02/19/18 10:45 Temperature Pulse Rate 80 80 Respiratory Rate 21 23 Blood Pressure 113/56 L 109/56 L Pulse Oximetry 99 100 99 02/19/18 11:00 02/19/18 11:16 02/19/18 11:30 Temperature Pulse Rate 80 80 80 Respiratory Rate 17 22 33 H Blood Pressure 106/52 L 110/53 L 106/53 L Pulse Oximetry 100 100 88 L 02/19/18 11:38 02/19/18 11:45 02/19/18 12:00 Temperature 98.2 F Pulse Rate 80 80 Respiratory Rate 27 H 21 Blood Pressure 114/55 L 110/56 L Pulse Oximetry 100 98 100 02/19/18 12:15 02/19/18 12:30 02/19/18 14:00 Temperature Pulse Rate 80 80 80 Respiratory Rate 17 24 Blood Pressure 110/56 L 112/55 L Pulse Oximetry 98 96 Intake & Output 02/18/18 02/19/18 02/19/18 18:59 06:59 18:59 Intake Total 300 / 300 240 / 240 Output Total 4000 / 4000 30 / 30 Balance -3700 / -3700 210 / 210 Weight 93.5 kg Intake: IV 300 / 300 Flexbumin 25% Inj 100 ML @ 60 200 / 200 mls/hr IV.SIG WITH DIALYSIS PRN Rx#:[id number] Maxipime Inj 1,000 MG In NS Inj 100 / 100 100 ML @ 200 mls/hr IV.SIG Q24H PEDRO Rx#:[id number] Oral 240 / 240 Oral Supplement 0 / 0 Output: Urine 30 / 30 Stool 0 / 0 Urine/Stool Mix 0 / 0 Hemodialysis Amount 4000 / 4000 Other: Date of Last Bowel Movement 02/17/18 02/19/18 02/19/18 # Bowel Movements 1 2 # Incontinent Bowel Movements 0 <Eduardo Salvador - Last Filed: 02/19/18 15:48> Assessment and Plan - Assessment (1) ESRD (end stage renal disease) on dialysis Code(s): N18.6 - End stage renal disease; Z99.2 - Dependence on renal dialysis Status: Acute Plan: HD support continues MWF. 2L yesterday. Have asked HD RN to use crit line to assess fluid status for UF needs. Having intradialytic hypotension. Using albumin as needed. Midodrine ordered. Monitor electrolytes intermittently. Avoid IVF administration. Protect left arm from procedures, has new AV access that is not mature yet. Will need to follow with vascular (Dr. Hutson) at a later date. Appears to be maturing well. PermCath in place for HD use. On calcium acetate with meals. (2) Hypoxia Code(s): R09.02 - Hypoxemia Status: Acute Plan: s/p intubation and bronchoscopy. Pending results of biopsy. Now on BiPap. Pulmonary following. On sildenafil for pulmonary hypertension. (3) Atrial fibrillation with RVR Code(s): I48.91 - Unspecified atrial fibrillation Status: Acute Plan: corrected, s/p AV gilbert ablation with pacemaker placement. Midodrine is ordered TID for hypotension. Cardiology following. Appreciate recommendations. (4) CHF (congestive heart failure) Code(s): I50.9 - Heart failure, unspecified Status: Acute Qualifiers: Heart failure type: unspecified Heart failure chronicity: unspecified Qualified Code(s): I50.9 - Heart failure, unspecified Plan: Stable. EF noted to be around 60%. Repeat echo shows no change in EF. He has mild aortic regurgitation. Fluid removal with dialysis as tolerated. (5) Anemia in CKD (chronic kidney disease) Code(s): N18.9 - Chronic kidney disease, unspecified; D63.1 - Anemia in chronic kidney disease Status: Acute Plan: On Epogen with dialysis. Hemoglobin is acceptable. (6) Thrombocytopenia Code(s): D69.6 - Thrombocytopenia, unspecified Status: Acute Plan: Hematology consulted. Appreciate recommendations. <Jyoti Ceron - Last Filed: 02/19/18 12:00> - Assessment (1) ESRD (end stage renal disease) on dialysis Code(s): N18.6 - End stage renal disease; Z99.2 - Dependence on renal dialysis Status: Acute (2) Hypoxia Code(s): R09.02 - Hypoxemia Status: Acute (3) Atrial fibrillation with RVR Code(s): I48.91 - Unspecified atrial fibrillation Status: Acute (4) CHF (congestive heart failure) Code(s): I50.9 - Heart failure, unspecified Status: Acute Qualifiers: Heart failure type: unspecified Heart failure chronicity: unspecified Qualified Code(s): I50.9 - Heart failure, unspecified (5) Anemia in CKD (chronic kidney disease) Code(s): N18.9 - Chronic kidney disease, unspecified; D63.1 - Anemia in chronic kidney disease Status: Acute (6) Thrombocytopenia Code(s): D69.6 - Thrombocytopenia, unspecified Status: Acute - Attending Attestation patient was seen and examined. Agree with above assessment and plan. <Eduardo Salvador - Last Filed: 02/19/18 15:48>
--- NOTE | 2018-02-19 12:17 | P.PNCA ---
Subjective Interval history: extubated, lethargic in nad Physical Exam Vital signs: Vital Signs 02/18/18 12:30 02/18/18 12:45 02/18/18 12:47 Temperature Pulse Rate 80 80 Respiratory Rate 19 17 17 Blood Pressure 98/54 L 94/51 L Pulse Oximetry 89 L 92 L 100 02/18/18 13:00 02/18/18 13:02 02/18/18 13:15 Temperature Pulse Rate 80 80 Respiratory Rate 18 17 17 Blood Pressure 94/51 L 96/52 L Pulse Oximetry 92 L 92 L 93 L 02/18/18 13:30 02/18/18 13:45 02/18/18 14:00 Temperature Pulse Rate 80 80 80 Respiratory Rate 16 15 18 Blood Pressure 92/49 L 92/46 L 97/52 L Pulse Oximetry 92 L 93 L 93 L 02/18/18 14:15 02/18/18 14:30 02/18/18 14:45 Temperature Pulse Rate 80 80 80 Respiratory Rate 15 16 15 Blood Pressure 87/48 L 94/48 L 94/51 L Pulse Oximetry 91 L 96 100 02/18/18 15:00 02/18/18 15:15 02/18/18 15:23 Temperature Pulse Rate 80 80 Respiratory Rate 15 28 H Blood Pressure 98/49 L 91/51 L Pulse Oximetry 90 L 91 L 100 02/18/18 15:30 02/18/18 15:45 02/18/18 16:00 Temperature 98.7 F Pulse Rate 80 80 80 Respiratory Rate 32 H 30 H 22 Blood Pressure 93/50 L 91/50 L 86/50 L Pulse Oximetry 95 95 95 02/18/18 18:00 02/18/18 20:00 02/18/18 22:00 Temperature 98.4 F Pulse Rate 80 80 80 Respiratory Rate 26 H Blood Pressure 89/52 L Pulse Oximetry 97 02/18/18 22:27 02/18/18 22:40 02/18/18 23:30 Temperature Pulse Rate 80 Respiratory Rate 18 Blood Pressure Pulse Oximetry 93 L 94 L 02/19/18 00:00 02/19/18 02:00 02/19/18 03:45 Temperature 97.9 F Pulse Rate 80 80 80 Respiratory Rate 36 H 14 Blood Pressure 96/53 L 90/53 L Pulse Oximetry 96 95 02/19/18 04:00 02/19/18 04:07 08/23/18 04:15 Temperature 97.9 F Pulse Rate 80 80 80 Respiratory Rate 29 H 15 Blood Pressure 101/53 L 104/51 L Pulse Oximetry 94 L 94 L 02/19/18 04:30 02/19/18 04:36 02/19/18 04:45 Temperature Pulse Rate 80 80 Respiratory Rate 17 23 Blood Pressure 114/57 L 108/53 L Pulse Oximetry 97 94 L 90 L 02/19/18 05:00 02/19/18 05:15 02/19/18 05:30 Temperature Pulse Rate 80 80 80 Respiratory Rate 18 18 13 Blood Pressure 104/50 L 100/52 L 98/50 L Pulse Oximetry 89 L 93 L 93 L 02/19/18 05:45 02/19/18 06:00 02/19/18 06:15 Temperature Pulse Rate 80 80 80 Respiratory Rate 22 30 H 60 H Blood Pressure 103/54 L 99/51 L 104/54 L Pulse Oximetry 89 L 78 L 98 02/19/18 06:30 02/19/18 06:45 02/19/18 07:00 Temperature Pulse Rate 80 80 80 Respiratory Rate 12 17 23 Blood Pressure 102/53 L 96/53 L 97/51 L Pulse Oximetry 95 93 L 93 L 02/19/18 07:15 02/19/18 07:30 02/19/18 07:45 Temperature Pulse Rate 80 80 80 Respiratory Rate 12 13 16 Blood Pressure 106/56 L 104/51 L 100/50 L Pulse Oximetry 98 98 99 02/19/18 08:00 02/19/18 08:15 02/19/18 08:30 Temperature 97.5 F L Pulse Rate 80 80 80 Respiratory Rate 24 14 17 Blood Pressure 108/56 L 108/55 L 107/57 L Pulse Oximetry 93 L 90 L 91 L 02/19/18 08:45 02/19/18 09:01 02/19/18 09:15 Temperature Pulse Rate 80 80 80 Respiratory Rate 15 24 28 H Blood Pressure 112/56 L 102/51 L 111/56 L Pulse Oximetry 94 L 83 L 84 L 02/19/18 09:30 02/19/18 09:45 02/19/18 09:46 Temperature Pulse Rate 80 80 80 Respiratory Rate 28 H 19 20 Blood Pressure 104/55 L 90/44 L Pulse Oximetry 88 L 88 L 02/19/18 10:00 02/19/18 10:25 02/19/18 11:38 Temperature Pulse Rate 80 Respiratory Rate Blood Pressure Pulse Oximetry 99 100 Intake & Output 02/18/18 02/19/18 02/19/18 18:59 06:59 18:59 Intake Total 300 / 300 240 / 240 Output Total 4000 / 4000 30 / 30 Balance -3700 / -3700 210 / 210 Weight 93.5 kg Intake: IV 300 / 300 Flexbumin 25% Inj 100 ML @ 60 200 / 200 mls/hr IV.SIG WITH DIALYSIS PRN Rx#:[id number] Maxipime Inj 1,000 MG In NS Inj 100 / 100 100 ML @ 200 mls/hr IV.SIG Q24H PEDRO Rx#:[id number] Oral 240 / 240 Oral Supplement 0 / 0 Output: Urine 30 / 30 Stool 0 / 0 Urine/Stool Mix 0 / 0 Hemodialysis Amount 4000 / 4000 Other: Date of Last Bowel Movement 02/17/18 02/19/18 02/19/18 # Bowel Movements 1 2 # Incontinent Bowel Movements 0 Assessment and Plan - Assessment (1) Atrial fibrillation with rapid ventricular response Code(s): I48.91 - Unspecified atrial fibrillation Status: Acute (2) CHF (congestive heart failure) Code(s): I50.9 - Heart failure, unspecified Status: Acute (3) Chronic kidney disease with end stage renal failure on dialysis Code(s): N18.6 - End stage renal disease; Z99.2 - Dependence on renal dialysis Status: Acute (4) Atrial fibrillation with RVR Code(s): I48.91 - Unspecified atrial fibrillation Status: Acute (5) ESRD (end stage renal disease) on dialysis Code(s): N18.6 - End stage renal disease; Z99.2 - Dependence on renal dialysis Status: Acute - Plan 1.) Afib with rvr - s/p ablation and micra placement 02/02/18 due to failure of medical management for rate control, d/w patient, inr therapeutic, hgb stable, rate controlled, inr=2.1 and hgb = 9.3 02/18/18, tracheobronchitis with heme on bronchoscopy 02/17/18 2.) CAD - continue, lipitor, has hemoptyis which is persistent, hold coumadin due to hgb=8.2 8/22/18 and thrombocytopenia, f/u inr and cbc in am (2) CHF (congestive heart failure) Qualifiers: Heart failure type: unspecified Heart failure chronicity: unspecified Qualified Code(s): I50.9 - Heart failure, unspecified
--- NOTE | 2018-02-19 13:54 | P.DIET ---
Nutritional Evaluation Type of nutrition evaluation: follow-up Nutrition screening: Weight Loss > 10 lbs Subjective Subjective Comments: Ate 75% of lunch. Drinks Nepro. Objective - Diagnosis CHF, AFib w/RVR, ESRD on HD - Objective [place] body weight: 89 kg % IBW: 100 (IBW = 196#) Body Weight Used for Calculations: Actual (93kg used for assessment here) Energy Needs - Lower Range (kCal/kg): 28 Energy Needs - Upper Range (kCal/kg): 33 Lower Limit kCal/kg (kCals): 2,604 Upper Limit kCal/kg (kCals): 3,069 Lower Limit Protein Factor (Grams per Kg): 1.2 Upper Limit Protein Factor (Grams per Kg): 1.5 Lower Protein Needs (Protein): 112 Upper Protein Needs (Protein): 140 Dietitian Reviewed in Medical Record: Current diet, Curent medications, Intake & Output, Labs Diet Order: 2 gm Na Oral Diet Intake Amount: Fair 50-75% Wound Care Note: Sacral Pressure Injury stage 2 See WOCN dated 02/13 Objective Comments: PMH Includes: CHF, ESRD on HD, Fistula, HTN, DM-2, hyperlipidemia Feeding - Current PO Supplement Current Supplement: Nepro Current Supplement Flavor: Vanilla Current Frequency of Supplement: Three times a day Current kCals Provided by Supplement: 425 Current Protein Provided by Supplement: 20 Assessment Assessment: Pt is at nutritional risk r/t reported recent unintentional wt loss and need for HD. Pt had a bronchoscopy on (02/17) and was extubated on (02/18). Variable po intake noted previous to bronchoscopy. Pressure injury has been identified ( stage 2). Food preferences from pt have been obtained. Will provide double portions of protein and Nepro tid. CBW = 93.5 kg. Recommendations: Continue current diet with Nepro tid Dietitian to Monitor: Lab values, Supplement acceptance, Intake & Output, Weight change, PO Intake, Wound/skin status, Medical course
--- NOTE | 2018-02-19 14:29 | P.PNONC ---
Subjective Interval history: Late entry: Patient seen earlier this a.m. Patient lying in bed, currently getting a breathing treatment. He reports that he overall does not feel well. To note patient is holding yankauer suction handle, with a moderate amount of questionable blood tinged mucous secretions in the collection device. Objective Vital Signs/Intake & Output: Vital Signs 02/18/18 14:15 02/18/18 14:30 02/18/18 14:45 Temperature Pulse Rate 80 80 80 Respiratory Rate 15 16 15 Blood Pressure 87/48 L 94/48 L 94/51 L Pulse Oximetry 91 L 96 100 02/18/18 15:00 02/18/18 15:15 02/18/18 15:23 Temperature Pulse Rate 80 80 Respiratory Rate 15 28 H Blood Pressure 98/49 L 91/51 L Pulse Oximetry 90 L 91 L 100 02/18/18 15:30 02/18/18 15:45 02/18/18 16:00 Temperature 98.7 F Pulse Rate 80 80 80 Respiratory Rate 32 H 30 H 22 Blood Pressure 93/50 L 91/50 L 86/50 L Pulse Oximetry 95 95 95 02/18/18 18:00 02/18/18 20:00 02/18/18 22:00 Temperature 98.4 F Pulse Rate 80 80 80 Respiratory Rate 26 H Blood Pressure 89/52 L Pulse Oximetry 97 02/18/18 22:27 02/18/18 22:40 02/18/18 23:30 Temperature Pulse Rate 80 Respiratory Rate 18 Blood Pressure Pulse Oximetry 93 L 94 L 02/19/18 00:00 02/19/18 02:00 02/19/18 03:45 Temperature 97.9 F Pulse Rate 80 80 80 Respiratory Rate 36 H 14 Blood Pressure 96/53 L 90/53 L Pulse Oximetry 96 95 02/19/18 04:00 02/19/18 04:07 02/19/18 04:15 Temperature 97.9 F Pulse Rate 80 80 80 Respiratory Rate 29 H 15 Blood Pressure 101/53 L 104/51 L Pulse Oximetry 94 L 94 L 02/19/18 04:30 02/19/18 04:36 02/19/18 04:45 Temperature Pulse Rate 80 80 Respiratory Rate 17 23 Blood Pressure 114/57 L 108/53 L Pulse Oximetry 97 94 L 90 L 02/19/18 05:00 02/19/18 05:15 02/19/18 05:30 Temperature Pulse Rate 80 80 80 Respiratory Rate 18 18 13 Blood Pressure 104/50 L 100/52 L 98/50 L Pulse Oximetry 89 L 93 L 93 L 02/19/18 05:45 02/19/18 06:00 02/19/18 06:15 Temperature Pulse Rate 80 80 80 Respiratory Rate 22 30 H 60 H Blood Pressure 103/54 L 99/51 L 104/54 L Pulse Oximetry 89 L 78 L 98 02/19/18 06:30 02/19/18 06:45 02/19/18 07:00 Temperature Pulse Rate 80 80 80 Respiratory Rate 12 17 23 Blood Pressure 102/53 L 96/53 L 97/51 L Pulse Oximetry 95 93 L 93 L 02/19/18 07:15 02/19/18 07:30 02/19/18 07:45 Temperature Pulse Rate 80 80 80 Respiratory Rate 12 13 16 Blood Pressure 106/56 L 104/51 L 100/50 L Pulse Oximetry 98 98 99 02/19/18 08:00 02/19/18 08:15 02/19/18 08:30 Temperature 97.5 F L Pulse Rate 80 80 80 Respiratory Rate 24 14 17 Blood Pressure 108/56 L 108/55 L 107/57 L Pulse Oximetry 93 L 90 L 91 L 02/19/18 08:45 02/19/18 09:01 02/19/18 09:15 Temperature Pulse Rate 80 80 80 Respiratory Rate 15 24 28 H Blood Pressure 112/56 L 102/51 L 111/56 L Pulse Oximetry 94 L 83 L 84 L 02/19/18 09:30 02/19/18 09:45 02/19/18 09:46 Temperature Pulse Rate 80 80 80 Respiratory Rate 28 H 19 20 Blood Pressure 104/55 L 90/44 L Pulse Oximetry 88 L 88 L 02/19/18 10:00 02/19/18 10:15 02/19/18 10:25 Temperature Pulse Rate 80 80 Respiratory Rate 18 21 Blood Pressure 89/54 L 90/49 L Pulse Oximetry 90 L 83 L 99 02/19/18 10:30 02/19/18 10:45 02/19/18 11:00 Temperature Pulse Rate 80 80 80 Respiratory Rate 21 23 17 Blood Pressure 113/56 L 109/56 L 106/52 L Pulse Oximetry 100 99 100 02/19/18 11:16 08/23/18 11:30 02/19/18 11:38 Temperature Pulse Rate 80 80 Respiratory Rate 22 33 H Blood Pressure 110/53 L 106/53 L Pulse Oximetry 100 88 L 100 02/19/18 11:45 02/19/18 12:00 02/19/18 12:15 Temperature 98.2 F Pulse Rate 80 80 80 Respiratory Rate 27 H 21 17 Blood Pressure 114/55 L 110/56 L 110/56 L Pulse Oximetry 98 100 98 02/19/18 12:30 Temperature Pulse Rate 80 Respiratory Rate 24 Blood Pressure 112/55 L Pulse Oximetry 96 Intake & Output 02/18/18 02/19/18 02/19/18 18:59 06:59 18:59 Intake Total 300 / 300 240 / 240 Output Total 4000 / 4000 30 / 30 Balance -3700 / -3700 210 / 210 Weight 93.5 kg Intake: IV 300 / 300 Flexbumin 25% Inj 100 ML @ 60 200 / 200 mls/hr IV.SIG WITH DIALYSIS PRN Rx#:[id number] Maxipime Inj 1,000 MG In NS Inj 100 / 100 100 ML @ 200 mls/hr IV.SIG Q24H PEDRO Rx#:[id number] Oral 240 / 240 Oral Supplement 0 / 0 Output: Urine 30 / 30 Stool 0 / 0 Urine/Stool Mix 0 / 0 Hemodialysis Amount 4000 / 4000 Other: Date of Last Bowel Movement 02/17/18 02/19/18 02/19/18 # Bowel Movements 1 2 # Incontinent Bowel Movements 0 Result Diagrams: 02/19/18 06:57 02/19/18 06:57 Laboratory Results: Laboratory Results - last 24 hr 02/18/18 02/18/18 02/19/18 16:57 22:53 06:57 WBC 4.4 RBC 2.79 L Hgb 8.2 L Hct 25.6 L MCV 91.7 MCH 29.3 MCHC 32.0 RDW 21.5 H Plt Count 39 L MPV 10.6 Prelim Diff (Auto) Slide review pending Neut % (Auto) 88.9 H Lymph % (Auto) 7.5 L Hutchinson % (Auto) 3.3 Eos % (Auto) 0.1 Baso % (Auto) 0.2 Neut # (Auto) 3.9 Lymph # (Auto) 0.3 L Hutchinson # (Auto) 0.1 Eos # (Auto) 0.0 Baso # (Auto) 0.0 WBC Differential Manual diff final Seg Neuts % (Manual) 86 H Band Neuts % (Manual) 11 H Lymphocytes % (Manual) 1 L Monocytes % (Manual) 2 Abs Neuts (Manual) 4.3 Differential Comment . Platelet Estimate Low L Platelet Morphology Normal Ovalocytes 1+ H Acanthocytes (Spur) 1+ H Smear Path Review Retic Count Absolute Retic PT INR APTT Fibrinogen Sodium Potassium Chloride Carbon Dioxide Anion Gap BUN Creatinine Estimated GFR POC Glucose 106 117 H Random Glucose Calcium Magnesium Total Bilirubin AST ALT Alkaline Phosphatase Total Protein Albumin Heparin Dep Plt Ab OD Hep-Induced Plt Ab Vidya 02/19/18 02/19/18 02/19/18 06:57 06:57 06:57 WBC RBC Hgb Hct MCV MCH MCHC RDW Plt Count MPV Prelim Diff (Auto) Neut % (Auto) Lymph % (Auto) Hutchinson % (Auto) Eos % (Auto) Baso % (Auto) Neut # (Auto) Lymph # (Auto) Hutchinson # (Auto) Eos # (Auto) Baso # (Auto) WBC Differential Seg Neuts % (Manual) Band Neuts % (Manual) Lymphocytes % (Manual) Monocytes % (Manual) Abs Neuts (Manual) Differential Comment Platelet Estimate Platelet Morphology Ovalocytes Acanthocytes (Spur) Smear Path Review Retic Count 1.3 Absolute Retic 37.9 PT 22.9 H INR 2.3 APTT 37.7 H Fibrinogen 434 H Sodium 139 Potassium 4.9 Chloride 98 Carbon Dioxide 23.4 Anion Gap 18 H BUN 86 H Creatinine 5.90 H Estimated GFR 10 L POC Glucose Random Glucose 147 H Calcium 8.5 Magnesium 2.6 H Total Bilirubin 1.9 H AST 48 H ALT 41 Alkaline Phosphatase 93 Total Protein 5.9 L Albumin 2.8 L Heparin Dep Plt Ab OD Hep-Induced Plt Ab Vidya 02/19/18 02/19/18 02/19/18 06:57 06:57 07:27 WBC RBC Hgb Hct MCV MCH MCHC RDW Plt Count MPV Prelim Diff (Auto) Neut % (Auto) Lymph % (Auto) Hutchinson % (Auto) Eos % (Auto) Baso % (Auto) Neut # (Auto) Lymph # (Auto) Hutchinson # (Auto) Eos # (Auto) Baso # (Auto) WBC Differential Seg Neuts % (Manual) Band Neuts % (Manual) Lymphocytes % (Manual) Monocytes % (Manual) Abs Neuts (Manual) Differential Comment Platelet Estimate Platelet Morphology Ovalocytes Acanthocytes (Spur) Smear Path Review Retic Count Absolute Retic PT INR APTT Fibrinogen Sodium Potassium Chloride Carbon Dioxide Anion Gap BUN Creatinine Estimated GFR POC Glucose 159 H Random Glucose Calcium Magnesium Total Bilirubin AST ALT Alkaline Phosphatase Total Protein Albumin Heparin Dep Plt Ab OD 0.166 Hep-Induced Plt Ab Vidya Negative 02/19/18 02/19/18 11:43 11:44 WBC RBC Hgb Hct MCV MCH MCHC RDW Plt Count MPV Prelim Diff (Auto) Neut % (Auto) Lymph % (Auto) Hutchinson % (Auto) Eos % (Auto) Baso % (Auto) Neut # (Auto) Lymph # (Auto) Hutchinson # (Auto) Eos # (Auto) Baso # (Auto) WBC Differential Seg Neuts % (Manual) Band Neuts % (Manual) Lymphocytes % (Manual) Monocytes % (Manual) Abs Neuts (Manual) Differential Comment Platelet Estimate Platelet Morphology Ovalocytes Acanthocytes (Spur) Smear Path Review Retic Count Absolute Retic PT INR APTT Fibrinogen Sodium Potassium Chloride Carbon Dioxide Anion Gap BUN Creatinine Estimated GFR POC Glucose 239 H 254 H Random Glucose Calcium Magnesium Total Bilirubin AST ALT Alkaline Phosphatase Total Protein Albumin Heparin Dep Plt Ab OD Hep-Induced Plt Ab Vidya Culture Results: Microbiology 02/17/18 07:55 Gram Stain - Final Bronchial - Bronchial Bronchial Culture - Final Rare growth normal respiratory marielos 02/17/18 07:55 Acid Fast Bacilli Smear - Final Bronchial Washings - Bronchial No acid fast bacilli seen 02/17/18 07:55 Fungal Smear - Final Bronchial Washings - Bronchial No fungal elements seen Imaging Studies: Impressions Liver Ultrasound 02/19/18 22:00 CONCLUSION: 1. Spleen is normal in size and appearance. 2. Gallbladder is filled with sludge. Quality Review Specialist felt based positive sonographic Malloy sign may be present. Suggest correlating with the clinical examination and history. There is any clinical concern for acute cholecystitis consider evaluation with hepatobiliary scintigraphy to evaluate for cystic duct obstruction. 3. Dilated hepatic veins, IVC, and pulsatile blood flow in the main portal vein suggest elevated right heart pressures or tricuspid regurgitation. 4. Right kidney changes consistent with end-stage renal disease including abnormal increased echotexture and multiple cystic lesions. 5. There is trace perihepatic free fluid. Medications: Active Medications Generic Name Dose Route Start Last Admin Trade Name Freq PRN Reason Stop Dose Admin Albuterol 1 ampul 02/08/18 13:45 02/19/18 09:45 Duoneb Neb (Prn) NEB 1 ampul Q2HR NEB PRN Administration DYSPNEA Atorvastatin Calcium 80 mg 01/16/18 15:00 02/19/18 09:05 Lipitor PO 80 mg DAILY PEDRO Administration Bisacodyl 10 mg 01/15/18 21:01 02/01/18 03:41 Dulcolax Supp RECTAL 10 mg DAILY PRN Administration SEVERE CONSITIPATION Budesonide/Formoterol Fumarate 2 puff 01/16/18 09:00 02/19/18 09:08 Symbicort 160/4.5 Mcg Inh INH 2 puff BID PEDRO Administration Buspirone HCl 5 mg 01/16/18 09:00 02/19/18 09:04 Buspar PO 5 mg DAILY PEDRO Administration Calcium Acetate 667 mg 02/13/18 18:00 02/19/18 12:55 Phoslo PO 667 mg TID PEDRO Administration Chlorhexidine Gluconate 15 ml 02/17/18 20:00 02/19/18 09:07 Peridex 0.12% Oral Kit OROPHARYNG 15 ml BID@0800,2000 [facility] Administration Clotrimazole 10 mg 02/12/18 14:00 02/19/18 13:17 Mycelex Corry BUCCAL 02/26/18 13:59 10 mg 5 TIMES A DAY PEDRO Administration Epoetin Yovanny 10,000 unit 01/19/18 10:00 02/18/18 11:45 Epogen Inj IV.PUSH Not Given MOWEFR [facility] Gentamicin Sulfate 20 mg 01/16/18 13:04 02/18/18 08:45 Gentamicin Inj OTHER 20 mg WITH DIALYSIS PRN Administration Dwell Gentamycin Lock Heparin Sodium (Porcine) 8,000 units 01/16/18 13:04 01/31/18 09:28 Heparin Inj OTHER 8,000 units WITH DIALYSIS PRN Administration for machine prime Heparin Sodium (Porcine) 1,000 units 01/16/18 13:04 02/18/18 08:44 Heparin Inj OTHER 1,000 units WITH DIALYSIS PRN Administration Dwell Heparin to Fill Catheter Cefepime HCl 1,000 mg/ Sodium 100 mls @ 200 mls/hr 02/12/18 08:00 02/19/18 09 :03 Chloride IV.SIG 200 mls/hr Q24H PEDRO Administration Propofol 1,000 mg in 100 mls @ 2.82 mls/hr 02/17/18 08:28 02/18/18 09:00 Diprivan 1000 Mg/100 Ml Inj IV.CONT 0 mcg/kg/min TITRATE PRN 0 mls/hr Per Protocol Titration Protocol 5 MCG/KG/MIN Sodium Chloride 1,000 mls @ 0 mls/hr 01/16/18 13:04 01/24/18 19:04 Ns Inj OTHER 300 mls/hr .Q0M PRN Administration for prime and rinse back As Directed Insulin Detemir 5 unit 02/08/18 09:00 02/19/18 09:07 Levemir Inj SQ 5 unit BID PEDRO Administration Insulin Human Regular 0 units 02/14/18 12:00 02/19/18 12:54 Novolin R Correctional Sugar Inj SQ 15 units ACHS PEDRO Administration Protocol Lactulose 30 ml 01/15/18 21:01 02/01/18 09:43 Lactulose Liq PO 30 ml DAILY PRN Administration SEVERE CONSITIPATION Methylprednisolone Sodium Succinate 30 mg 02/17/18 09:30 02/19/18 09:05 Solumedrol Inj IV.PUSH 30 mg DAILY PEDRO Administration Midodrine 5 mg 02/17/18 12:00 02/19/18 12:55 Proamatine PO 5 mg TID@0700,1200,1700 PEDRO Administration Morphine Sulfate 2 mg 01/15/18 21:03 02/16/18 18:57 Morphine Inj IV.PUSH 2 mg Q4H PRN Administration BREAKTHROUGH PAIN Multivitamins 1 tab 01/16/18 09:00 02/19/18 09:05 Theragran PO 1 tab DAILY PEDRO Administration Nitroglycerin 0.4 mg 01/16/18 13:04 01/23/18 16:49 Nitrostat Sl SL 0.4 mg Q5M PRN Administration CHEST PAIN Ondansetron HCl 4 mg 01/16/18 13:30 01/28/18 17:20 Zofran Odt SL 4 mg Q6H PRN Administration NAUSEA OR VOMITING Oxycodone HCl 5 mg 01/23/18 17:59 02/19/18 01:47 Roxicodone PO 5 mg Q4H PRN Administration pain 3-10 Prochlorperazine Edisylate 5 mg 01/23/18 23:04 01/24/18 04:15 Compazine Inj IV.PUSH 5 mg Q4H PRN Administration NAUSEA OR VOMITING Senna/Docusate Sodium 1 tab 01/16/18 09:00 02/19/18 09:08 Yasmine-Colace PO Not Given BID [facility] Sennosides 17.2 mg 01/15/18 21:01 01/31/18 07:21 Senokot PO 17.2 mg Q12H PRN Administration Moderate Constipation Sildenafil Citrate 30 mg 02/10/18 13:00 02/19/18 12:57 Revatio PO 30 mg TID PEDRO Administration Sodium Chloride 2 ml 01/26/18 21:00 02/19/18 09:08 Ns Flush IV.FLUSH 2 ml BID PEDRO Administration Sodium Chloride 2 ml 01/26/18 13:44 02/05/18 08:39 Ns Flush IV.FLUSH 2 ml PRN PRN Administration FLUSH AFTER USING IV ACCESS Sodium Chloride 5 ml 01/16/18 13:04 01/19/18 20:09 Ns Flush IV.FLUSH 5 ml PRN PRN Administration flush each lumen during HD Temazepam 15 mg 01/15/18 21:01 02/19/18 01:46 Restoril PO 15 mg HS PRN Administration INSOMNIA Warfarin Sodium 2 mg 02/11/18 16:00 02/18/18 15:57 Coumadin PO Not Given DAILY@1600 PEDRO Objective Remarks: GENERAL: Elderly ill-appearing male patient, in no acute distress. SKIN: Warm and dry. HEAD: Normocephalic. EYES: No scleral icterus. No injection or drainage. NECK: Supple, trachea midline. CARDIOVASCULAR: Regular rate and rhythm without murmurs. RESPIRATORY: Anterior breath sounds distant, equal bilaterally. No accessory muscle use.Currently with nebulizer mask on. GASTROINTESTINAL: Abdomen soft, non-tender, nondistended. EXTREMITIES: No cyanosis, or edema. MUSCULOSKELETAL: Adequate muscle tone. NEUROLOGICAL: No obvious focal deficit. Awake, alert, and oriented x3. PSYCHIATRIC: Appropriate mood and affect; insight and judgment normal. Assessment/Plan - Plan Mr. Constantino is a pleasant 72-year-old male patient with a history of chest pain, atrial fibrillation with RVR, end-stage renal disease and hypoxia. Hematology was consulted for progressive thrombocytopenia. He was noted to have a decreased platelet count initially on 02/05/2018, status post heart catheterization on 02/02/2018, and then further decline after 02/13/2018. The patient has been on multiple medications including cephalosporins, heparin and vancomycin. To note he has had a bronchoscopy with pending cytology and culture. Plan: 1. Thrombocytopenia, platelets continue to decline. Hit VIDYA negative. Awaiting BLE ultrasound to rule out DVT. Liver ultrasound reveal some congestion, likely related to his heart failure. Pt with a moderate amount of blood tinged oral mucous, which could suggest some bleeding, bronchoscopy path pending. Prolonged aPTT which could be related to liver disfunction. 2. Plan to transfuse 1 unit pRBC for hgb < 8.3, and platelets for platelets < 20k. 3. Continue supportive care. - Attending Statement The exam, history, and the medical decision-making described in the above note were completed with the assistance of the mid-level provider. I reviewed and agree with the findings presented. I attest that I had a [id number] encounter with the patient on the same day, and personally performed and documented my assessment and findings in the medical record. Had a lengthy discussion with the patient and his family at bedside. We discussed at length the multiple factors that contribute to his thrombocytopenia. His PT PTT remain prolonged. He continues to have hemoptysis. His sputum is bloody. We discussed that platelet consumption occurs with bleeding. I suspect that platelet are consumed for hematopoiesis in his lungs. I recommend transfusion of packed red cells for hemoglobin less than 8.3. Platelet transfusion is offered for platelet count less than 20,000. A post platelet transfusion will be checked if transfuse platelets. HRT antibodies are negative. Liver ultrasound does not show significant liver pathology but rather congestion. Liver congestion contributes to the coagulopathy. DIC will need to be excluded. Repeat coags and fibrinogen are checked tomorrow. It is noted that his PT PTT are prolonged despite holding the Coumadin. Underlying inhibitor is going to be ruled out with inhibitor study/mixing study. Doppler ultrasound of the lower extremity are pending to rule out a venous thromboembolic event. Thromboses appears less likely in light of his coagulopathy, prolonged PT PTT. He is at increased risk for bleeding. No other sites of bleeding noted from his central line and IV sites. I explained at length to the patient and his family how he is multiple medical problems stemming from his heart disease, congestive heart failure, end-stage renal disease all contribute and affect is overall status. Continued support is provided. Aggressive treatment per his wishes.
--- NOTE | 2018-02-19 16:44 | US ---
EXAM DATE: 02/19/2018 4:35 PM EDT AGE/SEX: 72 years / Male INDICATIONS: Bilateral ankle swelling. CLINICAL DATA: This is the patient's subsequent encounter. Patient reports that signs and symptoms h ave been present for 4 - 6 days and indicates a pain score of 2/10. MEDICAL/SURGICAL HISTORY: Congestive heart failure. Hypertension. Diabetes mellitus type II. End stage renal disease on dialysis. Supraventricular tachycardia. End stage renal disease on dial ysis. Atrial fibrillation. Lithotripsy. Left knee surgery. A/V fistula. COMPARISON: No prior exams available for comparison. TECHNIQUE: Venous ultrasound of both lower extremities was performed from the inguinal ligament to t he proximal calf. Real-time, color Doppler and spectral tracing, compression and augmentation techni ques were used. FINDINGS: Right Leg: Normal compression of the deep venous system from the inguinal region to the proximal brisa f. No echogenic clot is seen. Normal response of the venous system to augmentation and respiration. H owever, there is evidence of occlusive thrombus in the right greater saphenous vein. Left Leg: Normal compression of the deep venous system from the inguinal region to the proximal calf . No echogenic clot is seen. Normal response of the venous system to augmentation and respiration. Other: None. CONCLUSION: 1. No evidence of DVT. 2. There is occlusive thrombus in the greater saphenous vein on the right side. Electronically signed by: Jose Salcedo MD 02/19/2018 4:43 PM EDT
--- NOTE | 2018-02-19 17:00 | P.PNPAL ---
Reason for Visit Reason for visit: a. To assist with evaluation and management of symptoms including: Dyspnea, anxiety b. To assist medical decision maker(s) with: better understanding of current medical conditions; weighing benefits/burdens of medical treatment options; making medical treatment decisions. Subjective Subjective/Interval History: Patient seen today for follow-up on symptom management of dyspnea, anxiety and goals of medical care. Patient remained on BiPAP this morning after extubation yesterday. He has now been converted to high flow nasal cannula at 100% FiO2, with flow rate at 25 liters per minute. Respiratory status remains fragile. Bronchial washings show no fungal elements, no acid-fast bacilli and rare growth of normal respiratory marielos. Cytology shows no pneumocystis Jiroveci-like organisms present, macrophages and inflammatory cells present, no malignant cells. Peripheral blood smear shows severe normochromic, normocytic anemia and thrombocytopenia. He continues to suffer from anxiety and BuSpar 5 mg daily has been added for treatment to avoid oversedation with benzodiazepines. His anxiety improved with transition from BiPAP to high flow nasal cannula. No family is at bedside at this time. . Family/Friend Interactions: No family is at bedside at this time. . Advance Directives Health Care Surrogate: Copy in medical record Advance Directives Date on File: 02/02/18 Health Care Surrogate Name and Number: daughter Dinorah Greer Objective Vital Signs: Vital Signs 02/18/18 18:00 02/18/18 20:00 02/18/18 22:00 Temperature 98.4 F Pulse Rate 80 80 80 Respiratory Rate 26 H Blood Pressure 89/52 L Pulse Oximetry 97 02/18/18 22:27 02/18/18 22:40 02/18/18 23:30 Temperature Pulse Rate 80 Respiratory Rate 18 Blood Pressure Pulse Oximetry 93 L 94 L 02/19/18 00:00 02/19/18 02:00 02/19/18 03:45 Temperature 97.9 F Pulse Rate 80 80 80 Respiratory Rate 36 H 14 Blood Pressure 96/53 L 90/53 L Pulse Oximetry 96 95 02/19/18 04:00 02/19/18 04:07 02/19/18 04:15 Temperature 97.9 F Pulse Rate 80 80 80 Respiratory Rate 29 H 15 Blood Pressure 101/53 L 104/51 L Pulse Oximetry 94 L 94 L 02/19/18 04:30 02/19/18 04:36 02/19/18 04:45 Temperature Pulse Rate 80 80 Respiratory Rate 17 23 Blood Pressure 114/57 L 108/53 L Pulse Oximetry 97 94 L 90 L 02/19/18 05:00 02/19/18 05:15 02/19/18 05:30 Temperature Pulse Rate 80 80 80 Respiratory Rate 18 18 13 Blood Pressure 104/50 L 100/52 L 98/50 L Pulse Oximetry 89 L 93 L 93 L 02/19/18 05:45 02/19/18 06:00 02/19/18 06:15 Temperature Pulse Rate 80 80 80 Respiratory Rate 22 30 H 60 H Blood Pressure 103/54 L 99/51 L 104/54 L Pulse Oximetry 89 L 78 L 98 02/19/18 06:30 02/19/18 06:45 02/19/18 07:00 Temperature Pulse Rate 80 80 80 Respiratory Rate 12 17 23 Blood Pressure 102/53 L 96/53 L 97/51 L Pulse Oximetry 95 93 L 93 L 02/19/18 07:15 02/19/18 07:30 02/19/18 07:45 Temperature Pulse Rate 80 80 80 Respiratory Rate 12 13 16 Blood Pressure 106/56 L 104/51 L 100/50 L Pulse Oximetry 98 98 99 02/19/18 08:00 02/19/18 08:15 02/19/18 08:30 Temperature 97.5 F L Pulse Rate 80 80 80 Respiratory Rate 24 14 17 Blood Pressure 108/56 L 108/55 L 107/57 L Pulse Oximetry 93 L 90 L 91 L 02/19/18 08:45 02/19/18 09:01 02/19/18 09:15 Temperature Pulse Rate 80 80 80 Respiratory Rate 15 24 28 H Blood Pressure 112/56 L 102/51 L 111/56 L Pulse Oximetry 94 L 83 L 84 L 02/19/18 09:30 02/19/18 09:45 02/19/18 09:46 Temperature Pulse Rate 80 80 80 Respiratory Rate 28 H 19 20 Blood Pressure 104/55 L 90/44 L Pulse Oximetry 88 L 88 L 02/19/18 10:00 02/19/18 10:15 02/19/18 10:25 Temperature Pulse Rate 80 80 Respiratory Rate 18 21 Blood Pressure 89/54 L 90/49 L Pulse Oximetry 90 L 83 L 99 02/19/18 10:30 02/19/18 10:45 02/19/18 11:00 Temperature Pulse Rate 80 80 80 Respiratory Rate 21 23 17 Blood Pressure 113/56 L 109/56 L 106/52 L Pulse Oximetry 100 99 100 02/19/18 11:16 02/19/18 11:30 02/19/18 11:38 Temperature Pulse Rate 80 80 Respiratory Rate 22 33 H Blood Pressure 110/53 L 106/53 L Pulse Oximetry 100 88 L 100 02/19/18 11:45 02/19/18 12:00 02/19/18 12:15 Temperature 98.2 F Pulse Rate 80 80 80 Respiratory Rate 27 H 21 17 Blood Pressure 114/55 L 110/56 L 110/56 L Pulse Oximetry 98 100 98 02/19/18 12:30 02/19/18 14:00 02/19/18 16:00 Temperature Pulse Rate 80 80 Respiratory Rate 24 24 Blood Pressure 112/55 L Pulse Oximetry 96 02/19/18 16:32 Temperature Pulse Rate Respiratory Rate Blood Pressure Pulse Oximetry 96 Intake & Output 02/18/18 02/19/18 02/19/18 18:59 06:59 18:59 Intake Total 300 / 300 240 / 240 Output Total 4000 / 4000 30 / 30 Balance -3700 / -3700 210 / 210 Weight 206 lb 2.115 oz Intake: IV 300 / 300 Flexbumin 25% Inj 100 ML @ 60 200 / 200 mls/hr IV.SIG WITH DIALYSIS PRN Rx#:[id number] Maxipime Inj 1,000 MG In NS Inj 100 / 100 100 ML @ 200 mls/hr IV.SIG Q24H PEDRO Rx#:[id number] Oral 240 / 240 Oral Supplement 0 / 0 Output: Urine 30 / 30 Stool 0 / 0 Urine/Stool Mix 0 / 0 Hemodialysis Amount 4000 / 4000 Other: Date of Last Bowel Movement 02/17/18 02/19/18 02/19/18 # Bowel Movements 1 2 # Incontinent Bowel Movements 0 Physical Exam: CONSTITUTIONAL/GENERAL: This is an adequately nourished patient, recently extubated to BiPAP mask, appears mildly anxious but no acute distress. NECK: Trachea midline. Supple, nontender. CARDIOVASCULAR: regular rhythm, paced rate 80, 2/6 systolic ejection murmur, no rub no gallop. RESPIRATORY/CHEST: Clear breath sounds with faint bibasilar crackles, no accessory muscle use, rare wheezing, no rhonchi. GASTROINTESTINAL: Abdomen soft, non-tender, nondistended. No hepato-splenomegaly , or palpable masses. No guarding. Bowel sounds present. MUSCULOSKELETAL: Extremities without clubbing, cyanosis, or edema. No joint tenderness or effusion noted. No calf tenderness. No mottling or clubbing. NEUROLOGICAL: Recently extubated to BiPAP. Squeezes hands to commands but extremely weak. PSYCHIATRIC: Mildly anxious, cooperative. . Diagnostic Tests Laboratory: Laboratory Results - last 72 hr 02/12/18 02/16/18 02/16/18 13:22 21:05 22:45 WBC RBC Hgb Hct MCV MCH MCHC RDW Plt Count MPV Prelim Diff (Auto) Neut % (Auto) Lymph % (Auto) Custer % (Auto) Eos % (Auto) Baso % (Auto) Neut # (Auto) Lymph # (Auto) [place] # (Auto) Eos # (Auto) Baso # (Auto) WBC Differential Diff Scan Seg Neuts % (Manual) Band Neuts % (Manual) Lymphocytes % (Manual) Monocytes % (Manual) Abs Neuts (Manual) Differential Comment Platelet Estimate Platelet Morphology Ovalocytes Acanthocytes (Spur) Rouleaux Smear Path Review Retic Count Absolute Retic PT INR APTT Fibrinogen Puncture Site Patient Temperature O2 Saturation ABG pH ABG pCO2 ABG pO2 ABG HCO3 ABG O2 Content ABG Base Excess ABG Methemoglobin Eligio Test Hemoglobin Carboxyhemoglobin O2 Delivery Device Liter Flow Vent Setting Inspired O2 Critical Value Sodium Potassium Chloride Carbon Dioxide Anion Gap BUN Creatinine Estimated GFR POC Glucose 356 H 364 H Random Glucose Calcium Magnesium Total Bilirubin AST ALT Alkaline Phosphatase Total Protein Albumin Anti-Proteinase 3 Less than 1.0 Anti-Myeloperoxidase Less than 1.0 Glomerular Base Mem IgG <1.0 Heparin Dep Plt Ab OD Hep-Induced Plt Ab Vidya 02/17/18 02/17/18 02/17/18 04:47 06:17 06:17 WBC 7.6 RBC 3.21 L Hgb 9.3 L Hct 29.3 L MCV 91.3 MCH 29.1 MCHC 31.9 L RDW 22.0 H Plt Count 61 L MPV 11.0 Prelim Diff (Auto) Slide review pending Neut % (Auto) 94.1 H Lymph % (Auto) 2.8 L Custer % (Auto) 2.9 Eos % (Auto) 0.0 Baso % (Auto) 0.2 Neut # (Auto) 7.2 Lymph # (Auto) 0.2 L [place] # (Auto) 0.2 Eos # (Auto) 0.0 Baso # (Auto) 0.0 WBC Differential . Diff Scan Auto diff confirmed Seg Neuts % (Manual) Band Neuts % (Manual) Lymphocytes % (Manual) Monocytes % (Manual) Abs Neuts (Manual) Differential Comment . Platelet Estimate Low L Platelet Morphology Normal Ovalocytes 1+ H Acanthocytes (Spur) Occ H Rouleaux Present H Smear Path Review Retic Count Absolute Retic PT 25.1 H INR 2.5 APTT Fibrinogen Puncture Site Right radial Patient Temperature 98.6 O2 Saturation 86 L* ABG pH 7.43 H ABG pCO2 42 ABG pO2 60 L ABG HCO3 27 H ABG O2 Content 11.1 L ABG Base Excess 2.9 H ABG Methemoglobin 1.6 Eligio Test Present Hemoglobin 9.1 L Carboxyhemoglobin 3.0 O2 Delivery Device Hfnc Liter Flow 40.00 Vent Setting Inspired O2 100 Critical Value Yes Sodium Potassium Chloride Carbon Dioxide Anion Gap BUN Creatinine Estimated GFR POC Glucose Random Glucose Calcium Magnesium Total Bilirubin AST ALT Alkaline Phosphatase Total Protein Albumin Anti-Proteinase 3 Anti-Myeloperoxidase Glomerular Base Mem IgG Heparin Dep Plt Ab OD Hep-Induced Plt Ab Vidya 02/17/18 02/17/18 02/17/18 06:17 09:00 09:00 WBC RBC Hgb Hct MCV MCH MCHC RDW Plt Count MPV Prelim Diff (Auto) Neut % (Auto) Lymph % (Auto) C[place] % (Auto) Eos % (Auto) Baso % (Auto) Neut # (Auto) Lymph # (Auto) [place] # (Auto) Eos # (Auto) Baso # (Auto) WBC Differential Diff Scan Seg Neuts % (Manual) Band Neuts % (Manual) Lymphocytes % (Manual) Monocytes % (Manual) Abs Neuts (Manual) Differential Comment Platelet Estimate Platelet Morphology Ovalocytes Acanthocytes (Spur) Rouleaux Smear Path Review Retic Count Absolute Retic PT INR APTT Fibrinogen Puncture Site Right radial Cancelled Patient Temperature 98.6 Cancelled O2 Saturation 96 Cancelled ABG pH 7.28 L* Cancelled ABG pCO2 61 H* Cancelled ABG pO2 258 H Cancelled ABG HCO3 28 H Cancelled ABG O2 Content 13.2 Cancelled ABG Base Excess 1.4 Cancelled ABG Methemoglobin 1.4 Cancelled Eligio Test Present Cancelled Hemoglobin 9.3 L Cancelled Carboxyhemoglobin 2.5 Cancelled O2 Delivery Device Ventilator Cancelled Liter Flow Cancelled Vent Setting 550/16/10peep Cancelled Inspired O2 100 Cancelled Critical Value Yes Cancelled Sodium 139 Potassium 5.0 Chloride 98 Carbon Dioxide 28.0 Anion Gap 13 BUN 89 H Creatinine 6.32 H Estimated GFR 9 L POC Glucose Random Glucose 138 H Calcium 8.5 Magnesium 2.6 H Total Bilirubin 1.6 H AST 37 ALT 43 Alkaline Phosphatase 107 Total Protein 6.0 L Albumin 2.7 L Anti-Proteinase 3 Anti-Myeloperoxidase Glomerular Base Mem IgG Heparin Dep Plt Ab OD Hep-Induced Plt Ab Vidya 02/18/18 02/18/18 02/18/18 04:24 05:20 05:20 WBC 8.6 RBC 3.15 L Hgb 9.3 L Hct 29.0 L MCV 92.1 MCH 29.4 MCHC 31.9 L RDW 21.7 H Plt Count 52 L MPV 11.1 H Prelim Diff (Auto) Slide review pending Neut % (Auto) 91.3 H Lymph % (Auto) 6.1 L C[place] % (Auto) 1.9 Eos % (Auto) 0.5 Baso % (Auto) 0.2 Neut # (Auto) 7.9 H Lymph # (Auto) 0.5 L [place] # (Auto) 0.2 Eos # (Auto) 0.0 Baso # (Auto) 0.0 WBC Differential . Diff Scan Auto diff confirmed Seg Neuts % (Manual) Band Neuts % (Manual) Lymphocytes % (Manual) Monocytes % (Manual) Abs Neuts (Manual) Differential Comment . Platelet Estimate Low L Platelet Morphology Normal Ovalocytes 1+ H Acanthocytes (Spur) 1+ H Rouleaux Smear Path Review Retic Count Absolute Retic PT 21.0 H INR 2.1 APTT Fibrinogen Puncture Site Right radial Patient Temperature 98.6 O2 Saturation 93 ABG pH 7.36 L ABG pCO2 44 H ABG pO2 86 ABG HCO3 24 ABG O2 Content 12.0 ABG Base Excess -0.8 ABG Methemoglobin 1.4 Eligio Test Present Hemoglobin 9.1 L Carboxyhemoglobin 2.7 O2 Delivery Device Ventilator Liter Flow Vent Setting Prvc20/550/0.8/+10 Inspired O2 35 Critical Value No Sodium Potassium Chloride Carbon Dioxide Anion Gap BUN Creatinine Estimated GFR POC Glucose Random Glucose Calcium Magnesium Total Bilirubin AST ALT Alkaline Phosphatase Total Protein Albumin Anti-Proteinase 3 Anti-Myeloperoxidase Glomerular Base Mem IgG Heparin Dep Plt Ab OD Hep-Induced Plt Ab Vidya 02/18/18 02/18/18 02/18/18 05:20 08:44 12:28 WBC RBC Hgb Hct MCV MCH MCHC RDW Plt Count MPV Prelim Diff (Auto) Neut % (Auto) Lymph % (Auto) C[place] % (Auto) Eos % (Auto) Baso % (Auto) Neut # (Auto) Lymph # (Auto) [place] # (Auto) Eos # (Auto) Baso # (Auto) WBC Differential Diff Scan Seg Neuts % (Manual) Band Neuts % (Manual) Lymphocytes % (Manual) Monocytes % (Manual) Abs Neuts (Manual) Differential Comment Platelet Estimate Platelet Morphology Ovalocytes Acanthocytes (Spur) Rouleaux Smear Path Review Retic Count Absolute Retic PT INR APTT Fibrinogen Puncture Site Patient Temperature O2 Saturation ABG pH ABG pCO2 ABG pO2 ABG HCO3 ABG O2 Content ABG Base Excess ABG Methemoglobin Eligio Test Hemoglobin Carboxyhemoglobin O2 Delivery Device Liter Flow Vent Setting Inspired O2 Critical Value Sodium 138 Potassium 5.6 H Chloride 99 Carbon Dioxide 24.3 Anion Gap 15 BUN 118 H Creatinine 7.46 H Estimated GFR 7 L POC Glucose 129 H 102 Random Glucose 147 H Calcium 8.3 L Magnesium 2.7 H Total Bilirubin 1.1 H AST 30 ALT 45 Alkaline Phosphatase 109 Total Protein 6.1 L Albumin 2.7 L Anti-Proteinase 3 Anti-Myeloperoxidase Glomerular Base Mem IgG Heparin Dep Plt Ab OD Hep-Induced Plt Ab Vidya 02/18/18 02/18/18 02/19/18 16:57 22:53 06:57 WBC 4.4 RBC 2.79 L Hgb 8.2 L Hct 25.6 L MCV 91.7 MCH 29.3 MCHC 32.0 RDW 21.5 H Plt Count 39 L MPV 10.6 Prelim Diff (Auto) Slide review pending Neut % (Auto) 88.9 H Lymph % (Auto) 7.5 L [place] % (Auto) 3.3 Eos % (Auto) 0.1 Baso % (Auto) 0.2 Neut # (Auto) 3.9 Lymph # (Auto) 0.3 L [place] # (Auto) 0.1 Eos # (Auto) 0.0 Baso # (Auto) 0.0 WBC Differential Manual diff final Diff Scan Seg Neuts % (Manual) 86 H Band Neuts % (Manual) 11 H Lymphocytes % (Manual) 1 L Monocytes % (Manual) 2 Abs Neuts (Manual) 4.3 Differential Comment . Platelet Estimate Low L Platelet Morphology Normal Ovalocytes 1+ H Acanthocytes (Spur) 1+ H Rouleaux Smear Path Review Retic Count Absolute Retic PT INR APTT Fibrinogen Puncture Site Patient Temperature O2 Saturation ABG pH ABG pCO2 ABG pO2 ABG HCO3 ABG O2 Content ABG Base Excess ABG Methemoglobin Eilgio Test Hemoglobin Carboxyhemoglobin O2 Delivery Device Liter Flow Vent Setting Inspired O2 Critical Value Sodium Potassium Chloride Carbon Dioxide Anion Gap BUN Creatinine Estimated GFR POC Glucose 106 117 H Random Glucose Calcium Magnesium Total Bilirubin AST ALT Alkaline Phosphatase Total Protein Albumin Anti-Proteinase 3 Anti-Myeloperoxidase Glomerular Base Mem IgG Heparin Dep Plt Ab OD Hep-Induced Plt Ab Vidya 02/19/18 02/19/18 02/19/18 06:57 06:57 06:57 WBC RBC Hgb Hct MCV MCH MCHC RDW Plt Count MPV Prelim Diff (Auto) Neut % (Auto) Lymph % (Auto) [place] % (Auto) Eos % (Auto) Baso % (Auto) Neut # (Auto) Lymph # (Auto) [place] # (Auto) Eos # (Auto) Baso # (Auto) WBC Differential Diff Scan Seg Neuts % (Manual) Band Neuts % (Manual) Lymphocytes % (Manual) Monocytes % (Manual) Abs Neuts (Manual) Differential Comment Platelet Estimate Platelet Morphology Ovalocytes Acanthocytes (Spur) Rouleaux Smear Path Review Retic Count 1.3 Absolute Retic 37.9 PT 22.9 H INR 2.3 APTT 37.7 H Fibrinogen 434 H Puncture Site Patient Temperature O2 Saturation ABG pH ABG pCO2 ABG pO2 ABG HCO3 ABG O2 Content ABG Base Excess ABG Methemoglobin Eligio Test Hemoglobin Carboxyhemoglobin O2 Delivery Device Liter Flow Vent Setting Inspired O2 Critical Value Sodium 139 Potassium 4.9 Chloride 98 Carbon Dioxide 23.4 Anion Gap 18 H BUN 86 H Creatinine 5.90 H Estimated GFR 10 L POC Glucose Random Glucose 147 H Calcium 8.5 Magnesium 2.6 H Total Bilirubin 1.9 H AST 48 H ALT 41 Alkaline Phosphatase 93 Total Protein 5.9 L Albumin 2.8 L Anti-Proteinase 3 Anti-Myeloperoxidase Glomerular Base Mem IgG Heparin Dep Plt Ab OD Hep-Induced Plt Ab Vidya 02/19/18 02/19/18 02/19/18 06:57 06:57 07:27 WBC RBC Hgb Hct MCV MCH MCHC RDW Plt Count MPV Prelim Diff (Auto) Neut % (Auto) Lymph % (Auto) [place] % (Auto) Eos % (Auto) Baso % (Auto) Neut # (Auto) Lymph # (Auto) [place] # (Auto) Eos # (Auto) Baso # (Auto) WBC Differential Diff Scan Seg Neuts % (Manual) Band Neuts % (Manual) Lymphocytes % (Manual) Monocytes % (Manual) Abs Neuts (Manual) Differential Comment Platelet Estimate Platelet Morphology Ovalocytes Acanthocytes (Spur) Rouleaux Smear Path Review Retic Count Absolute Retic PT INR APTT Fibrinogen Puncture Site Patient Temperature O2 Saturation ABG pH ABG pCO2 ABG pO2 ABG HCO3 ABG O2 Content ABG Base Excess ABG Methemoglobin Eligio Test Hemoglobin Carboxyhemoglobin O2 Delivery Device Liter Flow Vent Setting Inspired O2 Critical Value Sodium Potassium Chloride Carbon Dioxide Anion Gap BUN Creatinine Estimated GFR POC Glucose 159 H Random Glucose Calcium Magnesium Total Bilirubin AST ALT Alkaline Phosphatase Total Protein Albumin Anti-Proteinase 3 Anti-Myeloperoxidase Glomerular Base Mem IgG Heparin Dep Plt Ab OD 0.166 Hep-Induced Plt Ab Vidya Negative 02/19/18 02/19/18 11:43 11:44 WBC RBC Hgb Hct MCV MCH MCHC RDW Plt Count MPV Prelim Diff (Auto) Neut % (Auto) Lymph % (Auto) [place] % (Auto) Eos % (Auto) Baso % (Auto) Neut # (Auto) Lymph # (Auto) [place] # (Auto) Eos # (Auto) Baso # (Auto) WBC Differential Diff Scan Seg Neuts % (Manual) Band Neuts % (Manual) Lymphocytes % (Manual) Monocytes % (Manual) Abs Neuts (Manual) Differential Comment Platelet Estimate Platelet Morphology Ovalocytes Acanthocytes (Spur) Rouleaux Smear Path Review Retic Count Absolute Retic PT INR APTT Fibrinogen Puncture Site Patient Temperature O2 Saturation ABG pH ABG pCO2 ABG pO2 ABG HCO3 ABG O2 Content ABG Base Excess ABG Methemoglobin Eligio Test Hemoglobin Carboxyhemoglobin O2 Delivery Device Liter Flow Vent Setting Inspired O2 Critical Value Sodium Potassium Chloride Carbon Dioxide Anion Gap BUN Creatinine Estimated GFR POC Glucose 239 H 254 H Random Glucose Calcium Magnesium Total Bilirubin AST ALT Alkaline Phosphatase Total Protein Albumin Anti-Proteinase 3 Anti-Myeloperoxidase Glomerular Base Mem IgG Heparin Dep Plt Ab OD Hep-Induced Plt Ab Vidya Result Diagrams: 02/19/18 06:57 02/19/18 06:57 Microbiology: Microbiology 02/17/18 07:55 Gram Stain - Final Bronchial - Bronchial Bronchial Culture - Final Rare growth normal respiratory marielos 02/17/18 07:55 Acid Fast Bacilli Smear - Final Bronchial Washings - Bronchial No acid fast bacilli seen 02/17/18 07:55 Fungal Smear - Final Bronchial Washings - Bronchial No fungal elements seen Procedures: 01/26/18: Cardiac catheterization 02/02/18: Cardiac catheterization: Insertion of Medtronic Micra and AV gilbert ablation 02/17/2018: Bronchoscopy without biopsy . 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 Spiritual:Warehouse Order Picker available. Legal:His daughter, Dinorah Greer, is his healthcare decision maker/HCS. Ethical issues impacting care: None noted. Important Contacts: Daughter: Dinorah Greer (Cindy) . Prognosis: His prognosis is poor. He has significant hypoxic lung disease/respiratory failure, end-stage renal disease, diabetes, hypertension and is at risk for further complications and decline. He is likely terminal, and would be appropriate for hospice his goals were to comfort oriented. . Code Status: Full Code Plan: PLAN: FULL CODE, confirmed with patient again 02/09/18 DECISION-MAKING: The patient is currently capacitated to make his own decisions, however, previously requested assisted decision making with his daughter, Dinorah Greer (Cindy). He has chosen her to be his HCS. GOALS: Aggressive. Patient states he does not want to sign a DNR and would accept mechanical ventilation if required. SYMPTOMS: * Anxiety: Worsened by BiPAP mask. Receiving BuSpar to avoid oversedation and further compromise of fragile respiratory status. Improved with transition to high flow nasal cannula. 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 He is currently extubated and has transitioned to high flow, remains weak, tachypneic. Remains at risk for reintubation, which the family would accept. Palliative care will continue to follow the patient during hospitalization. . Attestation Attestation: To help prompt me to consider important information that might be impacting today's encounter and assessment, information from prior notes written by myself or my colleagues may have been "brought forward" into today's note. My signature on this note, however, is an attestation that I personally performed the exam, history, and/or decision-making noted today, and, unless otherwise indicated, the interactions with patient, family, and staff as well as the review of records all occurred today. I also attest that the listed assessment and stated plan reflect my best clinical judgment today based on the combination of historical information, prior notes, and today's exam/ interactions. When time spent is documented, it refers only to time spent today by the signer, or if indicated, combined time spent today by collaborating physician/nurse practitioner. .
[2018-02-20] MEDS: Oral Hygiene Kit OROPHARYNG SCH ×4 (00:29→18:33)
[2018-02-20] MEDS: Clotrimazole 10 MG Troche BUCCAL SCH ×5 (05:33→21:18)
[2018-02-20 06:54] LABS: Prothrombin Time 20.4 sec (9.8-11.6)
[2018-02-20 06:57] LABS: Activated Partial Thrombo Time 34.8 sec (24.3-30.1)
[2018-02-20 07:20] LABS: Eos % (Auto) 0.2 % (0.0-4.0); Hematocrit 25.2 % (39.0-51.0); Hemoglobin 8.2 gm/dL (13.0-17.0); Lymph # (Auto) 0.5 th/mm3 (1.0-4.8); Lymph % (Auto) 8.4 % (9.0-44.0); Mean Corpuscular HGB Conc 32.6 % (32.0-36.0); Mean Corpuscular Hemoglobin 29.3 pg (27.0-34.0); Mean Platelet Volume 11.6 fL (7.0-11.0); Mono # (Auto) 0.1 th/mm3 (0.0-0.9); Mono % (Auto) 2.7 % (0.0-8.0); Neut # (Auto) 4.7 th/mm3 (1.8-7.7); Neut % (Auto) 88.7 % (16.0-70.0); Platelet Count 72 th/mm3 (150-450); Red Cell Distribution Width 21.3 % (11.6-17.2); White Blood Count 5.3 th/mm3 (4.0-11.0)
[2018-02-20 07:41] LABS: Alanine Aminotransferase 51 U/L (12-78); Albumin 2.7 g/dL (3.4-5.0); Alkaline Phosphatase 124 U/L (45-117); Anion Gap 15 meq/L (5-15); Aspartate Aminotransferase 56 U/L (15-37); Blood Urea Nitrogen 122 mg/dL (7-18); Calcium 8.5 mg/dL (8.5-10.1); Carbon Dioxide 26.5 meq/L (21.0-32.0); Chloride 95 meq/L (98-107); Glomerular Filtration Rate 8 mL/min (>89); Glucose,Random 153 mg/dL (74-106); Magnesium 2.6 mg/dL (1.5-2.5); Potassium 5.1 meq/L (3.5-5.1); Sodium 136 meq/L (136-145); Total Protein 5.9 g/dL (6.4-8.2)
[2018-02-20 08:38] LABS: Lymphocytes 4 % (9-44); Monocytes 1 % (0-8); Ovalocytes 1+
[2018-02-20 08:39] LABS: Acanthocytes Occ; Burr Cells 2+; Platelet Morphology Normal (Normal)
[2018-02-20] MEDS ORDERED: Acetaminophen 325 MG Tablet PO PRN (08:44)
[2018-02-20] MEDS: Calcium Acetate 667 MG Capsule PO SCH ×3 (08:50→18:36)
[2018-02-20] MEDS: Insulin Detemir Inj 1,000 UNIT/10 ML Vial SQ SCH ×2 (08:51→21:16)
[2018-02-20] MEDS: Senna/Docusate Sodium 8.6/50 MG Tablet PO SCH ×2 (08:51→21:17)
--- NOTE | 2018-02-20 08:58 | P.PNNP ---
Subjective Interval history: He is back on high flow at 100%. Not in distress. <Jyoti Ceron - Last Filed: 02/20/18 08:52> Physical Exam Vital signs: Vital Signs 02/19/18 09:01 02/19/18 09:15 02/19/18 09:30 Temperature Pulse Rate 80 80 80 Respiratory Rate 24 28 H 28 H Blood Pressure 102/51 L 111/56 L 104/55 L Pulse Oximetry 83 L 84 L 88 L 02/19/18 09:45 02/19/18 09:46 02/19/18 10:00 Temperature Pulse Rate 80 80 80 Respiratory Rate 19 20 18 Blood Pressure 90/44 L 89/54 L Pulse Oximetry 88 L 90 L 02/19/18 10:15 02/19/18 10:25 02/19/18 10:30 Temperature Pulse Rate 80 80 Respiratory Rate 21 21 Blood Pressure 90/49 L 113/56 L Pulse Oximetry 83 L 99 100 02/19/18 10:45 02/19/18 11:00 02/19/18 11:16 Temperature Pulse Rate 80 80 80 Respiratory Rate 23 17 22 Blood Pressure 109/56 L 106/52 L 110/53 L Pulse Oximetry 99 100 100 02/19/18 11:30 02/19/18 11:38 02/19/18 11:45 Temperature Pulse Rate 80 80 Respiratory Rate 33 H 27 H Blood Pressure 106/53 L 114/55 L Pulse Oximetry 88 L 100 98 02/19/18 12:00 02/19/18 12:15 02/19/18 12:30 Temperature 98.2 F Pulse Rate 80 80 80 Respiratory Rate 21 17 24 Blood Pressure 110/56 L 110/56 L 112/55 L Pulse Oximetry 100 98 96 02/19/18 12:45 02/19/18 13:00 02/19/18 13:15 Temperature Pulse Rate 80 80 80 Respiratory Rate 29 H 27 H 30 H Blood Pressure 118/58 L 109/55 L 121/57 L Pulse Oximetry 97 97 86 L 02/19/18 13:30 02/19/18 13:45 02/19/18 14:00 Temperature Pulse Rate 80 80 80 Respiratory Rate 24 21 24 Blood Pressure 100/52 L 92/51 L 92/53 L Pulse Oximetry 89 L 91 L 92 L 02/19/18 14:15 02/19/18 14:30 02/19/18 14:45 Temperature Pulse Rate 80 80 80 Respiratory Rate 21 16 28 H Blood Pressure 93/53 L 90/49 L 90/48 L Pulse Oximetry 92 L 98 91 L 02/19/18 15:00 02/19/18 15:15 02/19/18 15:30 Temperature Pulse Rate 80 80 80 Respiratory Rate 23 17 20 Blood Pressure 97/52 L 88/52 L 98/55 L Pulse Oximetry 92 L 95 93 L 02/19/18 15:45 02/19/18 16:00 02/19/18 16:15 Temperature 97.7 F Pulse Rate 80 80 80 Respiratory Rate 15 13 19 Blood Pressure 100/51 L 104/51 L 100/54 L Pulse Oximetry 96 95 98 02/19/18 16:30 02/19/18 16:32 02/19/18 16:45 Temperature Pulse Rate 80 80 Respiratory Rate 29 H 22 Blood Pressure 97/54 L 95/51 L Pulse Oximetry 93 L 96 93 L 02/19/18 18:00 02/19/18 20:00 02/19/18 20:45 Temperature 97.6 F Pulse Rate 80 80 Respiratory Rate 31 H Blood Pressure 96/50 L Pulse Oximetry 92 L 91 L 02/19/18 22:00 02/20/18 00:00 02/20/18 02:00 Temperature 97.8 F Pulse Rate 80 80 80 Respiratory Rate 22 Blood Pressure 102/57 L Pulse Oximetry 92 L 02/20/18 04:00 02/20/18 06:00 02/20/18 07:55 Temperature 97.8 F Pulse Rate 80 80 Respiratory Rate 25 H Blood Pressure 121/61 Pulse Oximetry 90 L 88 L 02/20/18 08:00 Temperature 97.6 F Pulse Rate 79 Respiratory Rate Blood Pressure 124/57 L Pulse Oximetry 92 L Intake & Output 02/19/18 02/20/18 02/20/18 18:59 06:59 18:59 Intake Total 200 / 200 Balance 200 / 200 Weight 93.5 kg Intake: Oral 200 / 200 Other: Date of Last Bowel Movement 02/19/18 02/19/18 02/19/18 # Bowel Movements 1 1 - Constitutional no acute distress - Routine Neck Exam Present: supple, full ROM - Routine Respiratory Exam Present: crackles. Absent: accessory muscle use - Routine Cardiovascular Exam Present: RRR, S1, S2 - Routine Abdominal Exam Present: soft, normoactive bowel sounds - Routine Extremities Exam Present: full ROM, pulses intact. Absent: edema - Routine Skin Exam Present: intact, dry, warm - Routine Neurological Exam Present: alert, oriented X3, CN II-XII intact - Detailed Neurological Exam: Coma Scale Eye Opening: Spontaneous Verbal Response: Oriented Motor Response: Obey commands Olesya Coma Scale Total: 15 - Routine Psychiatric Exam Present: normal affect, normal thought process <Jyoti Ceron - Last Filed: 02/20/18 08:52> Vital signs: Vital Signs 02/19/18 13:45 02/19/18 14:00 02/19/18 14:15 Temperature Pulse Rate 80 80 80 Respiratory Rate 21 24 21 Blood Pressure 92/51 L 92/53 L 93/53 L Pulse Oximetry 91 L 92 L 92 L 02/19/18 14:30 02/19/18 14:45 02/19/18 15:00 Temperature Pulse Rate 80 80 80 Respiratory Rate 16 28 H 23 Blood Pressure 90/49 L 90/48 L 97/52 L Pulse Oximetry 98 91 L 92 L 02/19/18 15:15 02/19/18 15:30 02/19/18 15:45 Temperature Pulse Rate 80 80 80 Respiratory Rate 17 20 15 Blood Pressure 88/52 L 98/55 L 100/51 L Pulse Oximetry 95 93 L 96 02/19/18 16:00 02/19/18 16:15 02/19/18 16:30 Temperature 97.7 F Pulse Rate 80 80 80 Respiratory Rate 13 19 29 H Blood Pressure 104/51 L 100/54 L 97/54 L Pulse Oximetry 95 98 93 L 02/19/18 16:32 02/19/18 16:45 02/19/18 18:00 Temperature Pulse Rate 80 80 Respiratory Rate 22 Blood Pressure 95/51 L Pulse Oximetry 96 93 L 02/19/18 20:00 02/19/18 20:45 02/19/18 22:00 Temperature 97.6 F Pulse Rate 80 80 Respiratory Rate 31 H Blood Pressure 96/50 L Pulse Oximetry 92 L 91 L 02/20/18 00:00 02/20/18 02:00 02/20/18 04:00 Temperature 97.8 F 97.8 F Pulse Rate 80 80 80 Respiratory Rate 22 25 H Blood Pressure 102/57 L 121/61 Pulse Oximetry 92 L 90 L 02/20/18 06:00 02/20/18 07:55 02/20/18 08:00 Temperature 97.6 F Pulse Rate 80 79 Respiratory Rate Blood Pressure 124/57 L Pulse Oximetry 88 L 92 L 02/20/18 10:00 02/20/18 12:00 Temperature 98 F Pulse Rate 79 79 Respiratory Rate Blood Pressure 112/56 L Pulse Oximetry Intake & Output 02/19/18 02/20/18 02/20/18 18:59 06:59 18:59 Intake Total 100 / 100 200 / 200 Balance 100 / 100 200 / 200 Weight 93.5 kg Intake: IV 100 / 100 Maxipime Inj 1,000 MG In NS Inj 100 / 100 100 ML @ 200 mls/hr IV.SIG Q24H PEDRO Rx#:[id number] Oral 200 / 200 Other: Date of Last Bowel Movement 02/19/18 02/19/18 02/19/18 # Bowel Movements 1 1 <Eduardo Salvador - Last Filed: 02/20/18 13:32> Assessment and Plan - Assessment (1) ESRD (end stage renal disease) on dialysis Code(s): N18.6 - End stage renal disease; Z99.2 - Dependence on renal dialysis Status: Acute Plan: HD support continues MWF. Due today. Have asked HD RN to use crit line to assess fluid status for UF needs. Having intradialytic hypotension. Using albumin as needed. Midodrine ordered. Monitor electrolytes intermittently. Avoid IVF administration. Protect left arm from procedures, has new AV access that is not mature yet. Will need to follow with vascular (Dr. Hutson) at a later date. Appears to be maturing well. PermCath in place for HD use. On calcium acetate with meals. (2) Hypoxia Code(s): R09.02 - Hypoxemia Status: Acute Plan: s/p intubation and bronchoscopy. No malignancy per biopsy. Back on high flow at 100%. Pulmonary following. On sildenafil for pulmonary hypertension. (3) Atrial fibrillation with RVR Code(s): I48.91 - Unspecified atrial fibrillation Status: Acute Plan: corrected, s/p AV gilbert ablation with pacemaker placement. Midodrine is ordered TID for hypotension. Cardiology following. Appreciate recommendations. (4) CHF (congestive heart failure) Code(s): I50.9 - Heart failure, unspecified Status: Acute Qualifiers: Heart failure type: unspecified Heart failure chronicity: unspecified Qualified Code(s): I50.9 - Heart failure, unspecified Plan: EF noted to be around 60%. Repeat echo shows no change in EF. He has mild aortic regurgitation. Fluid removal with dialysis as tolerated. (5) Anemia in CKD (chronic kidney disease) Code(s): N18.9 - Chronic kidney disease, unspecified; D63.1 - Anemia in chronic kidney disease Status: Acute Plan: On Epogen with dialysis. Hemoglobin is acceptable. (6) Thrombocytopenia Code(s): D69.6 - Thrombocytopenia, unspecified Status: Acute Plan: Hematology consulted. Appreciate recommendations. <Jyoti Ceron - Last Filed: 02/20/18 08:52> - Assessment (1) ESRD (end stage renal disease) on dialysis Code(s): N18.6 - End stage renal disease; Z99.2 - Dependence on renal dialysis Status: Acute (2) Hypoxia Code(s): R09.02 - Hypoxemia Status: Acute (3) Atrial fibrillation with RVR Code(s): I48.91 - Unspecified atrial fibrillation Status: Acute (4) CHF (congestive heart failure) Code(s): I50.9 - Heart failure, unspecified Status: Acute Qualifiers: Heart failure type: unspecified Heart failure chronicity: unspecified Qualified Code(s): I50.9 - Heart failure, unspecified (5) Anemia in CKD (chronic kidney disease) Code(s): N18.9 - Chronic kidney disease, unspecified; D63.1 - Anemia in chronic kidney disease Status: Acute (6) Thrombocytopenia Code(s): D69.6 - Thrombocytopenia, unspecified Status: Acute - Attending Attestation patient was seen and examined. Agree with above assessment and plan. <Eduardo Salvador - Last Filed: 02/20/18 13:32>
[2018-02-20] MEDS ORDERED: Sodium Chlor 0.9% Inj 250 ML IV.SIG SCH (09:00)
--- NOTE | 2018-02-20 09:31 | P.PNCC ---
Subjective Subjective Remarks/Hospital Course: This is a 72yM with history of ESRD on HD who was recently admitted last month for supraventricular tachycardia. It appears from the records that normal sinus rhythm was restored prior to discharge home. He re-presented to the hospital with atrial fibrillation with rapid ventricular response which has been poorly responsive to esmolol infusion. It is noted that there is still a shortage of diltiazem infusions, so none is available to place the patient on. Dr. Waters with cardiology was consulted, as was Dr. Weinberg. The patient has also had hypotension during this hospital stay with most blood pressure readings between 80-100 systolic. This morning, Bystolic was started and was given together with amiodarone 400mg and metoprolol 25mg po. Approximately 2 hours after this, his blood pressure dropped into the 60s and 70s systolic. I was consulted by Dr. Wilcox to evaluate and manage his hemodynamics in the setting of poorly-controlled atrial fibrillation and hypotension. The patient does complain of light-headedness and a little chest discomfort which is new since his blood pressure has dropped into the 70s. He denies any other complaints and tolerated breakfast this AM. ROS otherwise negative. troponins have been serially negative this admission. I performed bedside critical care echocardiography and compared this to images obtained from last hospital admission on 11/2017. Given the poorly controlled nature of the patient's rate, wall motion and accurate ejection fraction are difficult to assess with accuracy. It does appear that the patient has relatively preserved EF and at most only mildly depressed LVEF. Aortic valve is sclerotic but appears unchanged from prior echo which calculated the valve area at ~2cm. no pericardial effusion. IVC is dilated around 2cm without respiratory variation. heart rate on my evaluation is 121. 8/2: Critical care reconsulted by Dr. Weinberg for worsening respiratory failure. Patient dropped O2 sats to 84% on 6 L nasal cannula. When I evaluated patient he was resting in bed. Placed him on high flow nasal cannula 30 L/min 60% FiO2 with which his O2 sats came up to 90%. 01/30: Remains on high flow nasal cannula. CT chest negative for PE shows consolidation bilateral lower lobes and a loculated effusion on the right. Defer to pulmonary regarding further recommendations. 01/31: Remains on high flow nasal cannula. Being dialyzed currently. On 30 L/ min 60% FiO2. O2 sats 96%. Feels that he is breathing a little better. 02/01, 02/02: On high flow nasal cannula at 20 L/min 50% FiO2. Shortness of breath gradually improving. 02/03: On high flow nasal cannula 20 L/min 60% FiO2. Underwent mitral implantation and AV gilbert ablation yesterday by Dr. Weinberg. Sitting up in bed today. Appears comfortable not in any acute distress. 02/04 Patient 02/04 Patient is awake and alert on high flow oxygen 25L with 70% FIO2> Afebrile. For HD today 02/05 No events overnight. s/p HD yesterday with removal 5L. Afebrile. On 25L with FIO2 down to 50% 02/06 Patient remains on high flow oxygen with 25L 55%FIO2. Afebrile. 02/07 Patient s/p HD yesterday with removal 4.5L. Remains on high flow oxygen 25L with 50% FIO2. Afebrile. 02/08 Patient s/p HD yesterday with removal 3L. On high flow oxygen. Afebrile. 02/09 Patient remains on high flow oxygen 25L with 55% FIO2. Afebrile. For HD today 02/10 Patient is awake and alert. s/p HD yesterday with removal 3L. On 30L with 60% FIO2. Afebrile. 02/11 Patient is n 30L with 55% FIO2. Afebrile. 02/12: Patient remains on high flow nasal cannula. Very tired. Afebrile. Tolerating diet. 02/13: Hemodialysis is remained level. Unable to take fluid off due to hypotension. Remains on high flow nasal cannula 30 L 60% FiO2. Tolerating diet. Weak. 02/14: Afebrile. Remains on high flow nasal cannula at 35 L 60%. Plan for bronchoscopy with Dr. Moore on Friday. 02/15: Afebrile. Disconnect oxygen desaturation. Currently on high flow nasal cannula 40 L at 80%. Will recheck chest x-ray in a.m. Hemoptysis present but not as copious as before previously. 02/16: Worsening O2 requirements over the night, currently on FiO2 of 1 45 L/min high flow nasal cannula. Patient remains awake and conversant, still with some hemoptysis. Bronchoscopy scheduled for Friday. T-max of 98.5. 8/21: No events over the night. Patient remains on high flow nasal cannula at 100%. This morning patient underwent bronchoscopy without biopsy and postprocedure patient remained intubated. Results of bronchoscopy not known at this time. T-max of 99.1, urine output over the last 24 hours 1200 mL's. 02/18: No events over the night. Patient remains intubated and sedated. Significant improvement in O2 requirements, currently on 35% O2 and PEEP of 10. T-max of 98.9, urine output over the last 24 hours 1625 mL's. 02/19: Patient was successfully extubated yesterday afternoon and he did well postextubation. This morning he is on high flow nasal cannula, 25 L/min and 70 % with O2 sat at 100%. Patient seems tired, easily arousable, denies any complaints. Still with some hemoptysis but less. T-max of 99.9. He underwent hemodialysis yesterday. SUBJECTIVE: 02/20: Worsening O2 requirements over the night. Patient is currently on high flow nasal cannula at 30 L/min and 100% O2 with O2 sat in the low 90s. T-max of 98.2. Had hemodialysis yesterday. He is awake, looks tired, shortness of breath is unchanged, he says he coughs less. No other complaints. Objective Vital Signs / I&O: Vital Signs 02/19/18 09:30 02/19/18 09:45 02/19/18 09:46 Temperature Pulse Rate 80 80 80 Respiratory Rate 28 H 19 20 Blood Pressure 104/55 L 90/44 L Pulse Oximetry 88 L 88 L 02/19/18 10:00 02/19/18 10:15 02/19/18 10:25 Temperature Pulse Rate 80 80 Respiratory Rate 18 21 Blood Pressure 89/54 L 90/49 L Pulse Oximetry 90 L 83 L 99 02/19/18 10:30 02/19/18 10:45 02/19/18 11:00 Temperature Pulse Rate 80 80 80 Respiratory Rate 21 23 17 Blood Pressure 113/56 L 109/56 L 106/52 L Pulse Oximetry 100 99 100 02/19/18 11:16 02/19/18 11:30 02/19/18 11:38 Temperature Pulse Rate 80 80 Respiratory Rate 22 33 H Blood Pressure 110/53 L 106/53 L Pulse Oximetry 100 88 L 100 02/19/18 11:45 02/19/18 12:00 02/19/18 12:15 Temperature 98.2 F Pulse Rate 80 80 80 Respiratory Rate 27 H 21 17 Blood Pressure 114/55 L 110/56 L 110/56 L Pulse Oximetry 98 100 98 02/19/18 12:30 02/19/18 12:45 02/19/18 13:00 Temperature Pulse Rate 80 80 80 Respiratory Rate 24 29 H 27 H Blood Pressure 112/55 L 118/58 L 109/55 L Pulse Oximetry 96 97 97 02/19/18 13:15 02/19/18 13:30 02/19/18 13:45 Temperature Pulse Rate 80 80 80 Respiratory Rate 30 H 24 21 Blood Pressure 121/57 L 100/52 L 92/51 L Pulse Oximetry 86 L 89 L 91 L 02/19/18 14:00 02/19/18 14:15 02/19/18 14:30 Temperature Pulse Rate 80 80 80 Respiratory Rate 24 21 16 Blood Pressure 92/53 L 93/53 L 90/49 L Pulse Oximetry 92 L 92 L 98 02/19/18 14:45 02/19/18 15:00 02/19/18 15:15 Temperature Pulse Rate 80 80 80 Respiratory Rate 28 H 23 17 Blood Pressure 90/48 L 97/52 L 88/52 L Pulse Oximetry 91 L 92 L 95 02/19/18 15:30 02/19/18 15:45 02/19/18 16:00 Temperature 97.7 F Pulse Rate 80 80 80 Respiratory Rate 20 15 13 Blood Pressure 98/55 L 100/51 L 104/51 L Pulse Oximetry 93 L 96 95 02/19/18 16:15 02/19/18 16:30 02/19/18 16:32 Temperature Pulse Rate 80 80 Respiratory Rate 19 29 H Blood Pressure 100/54 L 97/54 L Pulse Oximetry 98 93 L 96 02/19/18 16:45 02/19/18 18:00 02/19/18 20:00 Temperature 97.6 F Pulse Rate 80 80 80 Respiratory Rate 22 31 H Blood Pressure 95/51 L 96/50 L Pulse Oximetry 93 L 92 L 02/19/18 20:45 02/19/18 22:00 02/20/18 00:00 Temperature 97.8 F Pulse Rate 80 80 Respiratory Rate 22 Blood Pressure 102/57 L Pulse Oximetry 91 L 92 L 02/20/18 02:00 02/20/18 04:00 02/20/18 06:00 Temperature 97.8 F Pulse Rate 80 80 80 Respiratory Rate 25 H Blood Pressure 121/61 Pulse Oximetry 90 L 02/20/18 07:55 02/20/18 08:00 Temperature 97.6 F Pulse Rate 79 Respiratory Rate Blood Pressure 124/57 L Pulse Oximetry 88 L 92 L Intake & Output 02/19/18 02/20/18 02/20/18 18:59 06:59 18:59 Intake Total 100 / 100 200 / 200 Balance 100 / 100 200 / 200 Weight 93.5 kg Intake: IV 100 / 100 Maxipime Inj 1,000 MG In NS Inj 100 / 100 100 ML @ 200 mls/hr IV.SIG Q24H PEDRO Rx#:[id number] Oral 200 / 200 Other: Date of Last Bowel Movement 02/19/18 02/19/18 02/19/18 # Bowel Movements 1 1 Result Diagrams: 02/20/18 06:24 02/20/18 06:24 Objective Remarks: GENERAL: Elderly gentleman, awake, tired, ill-appearing. SKIN: No rash, no cyanosis. HEENT: Pupils equal and reactive, sclerae anicteric. Neck is supple without rigidity. No JVD. Moist mucous membranes, no thrush. CARDIOVASCULAR: Regular S1 and S2. Systolic ejection murmur at apex 3/6. RESPIRATORY: Still has scattered coarse breath sounds bilateral. No wheezes. Good air entry. GASTROINTESTINAL: Soft, non-tender, not distended. Bowel sounds present. MUSCULOSKELETAL: Warm and well-perfused. Trace bilateral lower extremity peripheral edema. Pulses present. SCDs in place. NEURO: Awake, alert and oriented. Moves all extremities. Assessment and Plan - Assessment and Plan Plan: Active Problems: Acute respiratory failure -slightly worsening despite all our efforts. 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 Pain medications as needed. Continue buspirone 5 mg daily CV: Status post cardiac cath. Being followed by Dr. Weinberg. S/p ablation and micra placement 02/02/18 due to failure of medical management for rate control Echo showed EF 60-65%, mod- severe pulm HTN 60-70mmHg On Lipitor 80mg qhs Pulmo: Continue high flow nasal cannula at 30 L/min. FiO2 at 1. I discussed with the patient, and daughter, if he desaturates on high flow nasal cannula he will need BiPAP and ultimately he will require intubation and mechanical ventilation Bronchodilators Continue methylprednisolone succinate to 30mg daily, tapered on 02/17 On budesonide/formoterol 80/4.5 2 puffs twice daily. On sildenafil 30mg TID for pulm HTN Post bronchoscopy on 02/17 GI/liver: On cardiac, renal and diabetic diet Renal/: Monitor renal function, I/O's, avoid nephrotoxins Renal is following. HD per nephrology ID: s/p Zosyn (01/24- 02/07) 02/09 Sputum: Klebsiella pneumonia. Continue cefepime 1g daily day 9 Monitor for signs of infections ( Fever, WBC) BAL cultures are without growth to date Endocrine: SSI (high scale) for glycemic control, insulin detemir 5u BID Heme: Monitor CBC, Coags- Platelets are improving Receiving heparin with dialysis HIT sent Followed by Hematology Prophylaxis: Famotidine/SCDs. Level 2 follow-up Case discussed in detail with daughter present at bedside. Patient is at very high risk for further decompensation, requiring intubation and mechanical ventilation.
--- NOTE | 2018-02-20 09:43 | XR ---
EXAM DATE: 02/20/2018 9:40 AM EDT AGE/SEX: 72 years / Male INDICATIONS: Shortness of breath. CLINICAL DATA: This is the patient's subsequent encounter. Patient reports that signs and symptoms h ave been present for 1 month and indicates a pain score of 0/10. MEDICAL/SURGICAL HISTORY: Congestive heart failure. Hypertension. Diabetes mellitus type II. End stage renal disease on dialysis. Supraventricular tachycardia. End stage renal disease on dialys is. Atrial fibrillation Lithotripsy. Left knee surgery. A/V fistula. COMPARISON: [facility], CHEST 1V SINGLE AP, 02/18/2018. . FINDINGS: Dialysis catheter in good position. Coarse interstitial changes in both lungs stable in the interval. The heart remains enlarged. There is no pneumothorax or pleural effusion. CONCLUSION: No significant change following extubation. Electronically signed by: George Kumar MD 02/20/2018 9:41 AM EDT
[2018-02-20] MEDS: Chlorhexidine 0.12% Oral Kit 15 ML UDC OROPHARYNG SCH ×2 (10:16→21:15)
--- NOTE | 2018-02-20 10:27 | P.PNCA ---
Subjective Interval history: alert, lethargic in nad Physical Exam Vital signs: Vital Signs 02/19/18 10:30 02/19/18 10:45 02/19/18 11:00 Temperature Pulse Rate 80 80 80 Respiratory Rate 21 23 17 Blood Pressure 113/56 L 109/56 L 106/52 L Pulse Oximetry 100 99 100 02/19/18 11:16 02/19/18 11:30 02/19/18 11:38 Temperature Pulse Rate 80 80 Respiratory Rate 22 33 H Blood Pressure 110/53 L 106/53 L Pulse Oximetry 100 88 L 100 02/19/18 11:45 02/19/18 12:00 02/19/18 12:15 Temperature 98.2 F Pulse Rate 80 80 80 Respiratory Rate 27 H 21 17 Blood Pressure 114/55 L 110/56 L 110/56 L Pulse Oximetry 98 100 98 02/19/18 12:30 02/19/18 12:45 02/19/18 13:00 Temperature Pulse Rate 80 80 80 Respiratory Rate 24 29 H 27 H Blood Pressure 112/55 L 118/58 L 109/55 L Pulse Oximetry 96 97 97 02/19/18 13:15 02/19/18 13:30 02/19/18 13:45 Temperature Pulse Rate 80 80 80 Respiratory Rate 30 H 24 21 Blood Pressure 121/57 L 100/52 L 92/51 L Pulse Oximetry 86 L 89 L 91 L 02/19/18 14:00 02/19/18 14:15 02/19/18 14:30 Temperature Pulse Rate 80 80 80 Respiratory Rate 24 21 16 Blood Pressure 92/53 L 93/53 L 90/49 L Pulse Oximetry 92 L 92 L 98 02/19/18 14:45 02/19/18 15:00 02/19/18 15:15 Temperature Pulse Rate 80 80 80 Respiratory Rate 28 H 23 17 Blood Pressure 90/48 L 97/52 L 88/52 L Pulse Oximetry 91 L 92 L 95 02/19/18 15:30 02/19/18 15:45 02/19/18 16:00 Temperature 97.7 F Pulse Rate 80 80 80 Respiratory Rate 20 15 13 Blood Pressure 98/55 L 100/51 L 104/51 L Pulse Oximetry 93 L 96 95 02/19/18 16:15 02/19/18 16:30 02/19/18 16:32 Temperature Pulse Rate 80 80 Respiratory Rate 19 29 H Blood Pressure 100/54 L 97/54 L Pulse Oximetry 98 93 L 96 02/19/18 16:45 02/19/18 18:00 02/19/18 20:00 Temperature 97.6 F Pulse Rate 80 80 80 Respiratory Rate 22 31 H Blood Pressure 95/51 L 96/50 L Pulse Oximetry 93 L 92 L 02/19/18 20:45 02/19/18 22:00 02/20/18 00:00 Temperature 97.8 F Pulse Rate 80 80 Respiratory Rate 22 Blood Pressure 102/57 L Pulse Oximetry 91 L 92 L 02/20/18 02:00 02/20/18 04:00 02/20/18 06:00 Temperature 97.8 F Pulse Rate 80 80 80 Respiratory Rate 25 H Blood Pressure 121/61 Pulse Oximetry 90 L 02/20/18 07:55 02/20/18 08:00 02/20/18 10:00 Temperature 97.6 F Pulse Rate 79 79 Respiratory Rate Blood Pressure 124/57 L Pulse Oximetry 88 L 92 L Intake & Output 02/19/18 02/20/18 02/20/18 18:59 06:59 18:59 Intake Total 100 / 100 200 / 200 Balance 100 / 100 200 / 200 Weight 93.5 kg Intake: IV 100 / 100 Maxipime Inj 1,000 MG In NS Inj 100 / 100 100 ML @ 200 mls/hr IV.SIG Q24H [facility] Rx#:[id number] Oral 200 / 200 Other: Date of Last Bowel Movement 02/19/18 02/19/18 02/19/18 # Bowel Movements 1 1 Assessment and Plan - Assessment (1) Atrial fibrillation with rapid ventricular response Code(s): I48.91 - Unspecified atrial fibrillation Status: Acute (2) CHF (congestive heart failure) Code(s): I50.9 - Heart failure, unspecified Status: Acute (3) Chronic kidney disease with end stage renal failure on dialysis Code(s): N18.6 - End stage renal disease; Z99.2 - Dependence on renal dialysis Status: Acute (4) Atrial fibrillation with RVR Code(s): I48.91 - Unspecified atrial fibrillation Status: Acute (5) ESRD (end stage renal disease) on dialysis Code(s): N18.6 - End stage renal disease; Z99.2 - Dependence on renal dialysis Status: Acute - Plan 1.) Afib with rvr - s/p ablation and micra placement 02/02/18 due to failure of medical management for rate control, d/w patient, inr therapeutic, hgb stable, rate controlled, inr=2.1 and hgb = 9.3 02/18/18, tracheobronchitis with heme on bronchoscopy 02/17/18 2.) CAD - continue, lipitor, has hemoptyis which is persistent, hold coumadin due to hgb=8.2 02/18/18 and thrombocytopenia, f/u inr and cbc in am, hematology following 3,)Right saphenosu vein thrombosis but no dvt, off ac due to anemia and thrombocytopenia, hematology following, scds in place, d/w nurse, patient and family at the bedside (2) CHF (congestive heart failure) Qualifiers: Heart failure type: unspecified Heart failure chronicity: unspecified Qualified Code(s): I50.9 - Heart failure, unspecified
[2018-02-20] MEDS: MethylPREDNISolone Sod Succinate Inj 40 MG/ML Vial IV.PUSH SCH (10:31)
[2018-02-20] MEDS: Budesonide-Formoterol 160/4.5 MCG 6 GM Inhaler INH SCH ×2 (10:31→21:17)
[2018-02-20] MEDS: Morphine Inj 4 MG/ML Vial IV.PUSH PRN ×2 (10:33→21:57)
[2018-02-20] MEDS: Insulin NovoLIN Regular Correctional Sugar Inj SQ SCH ×4 (10:57→21:17)
[2018-02-20] MEDS: Heparin - SQ 10,000 UNITS/ML Vial SQ SCH ×2 (13:31→21:15)
--- NOTE | 2018-02-20 14:50 | P.PNPAL ---
Reason for Visit Reason for visit: a. To assist with evaluation and management of symptoms including: Dyspnea, anxiety b. To assist medical decision maker(s) with: better understanding of current medical conditions; weighing benefits/burdens of medical treatment options; making medical treatment decisions. Subjective Subjective/Interval History: Patient seen today for follow-up on symptom management of dyspnea, anxiety and goals of medical care. Continues to require oxygen via high flow nasal cannula liters a minute, 100% O2 , saturating in the low 90s. Underwent hemodialysis today with transfusion of 1 unit packed red blood cells. He is feeling more alert and a little better after dialysis and transfusion. He remains mildly tachypneic with respiratory rate 24 at this assessment. He underwent ultrasound of the abdomen yesterday showing normal sized and appearing spleen, gallbladder with sludge, right kidney changes consistent with end-stage renal disease, abnormally increased echotexture and multiple cystic lesions. Dilated hepatic veins, IVC and pulsatile blood flow in the main portal vein suggested elevated right heart pressures or tricuspid regurgitation. He is being followed by hematology for worsening thrombocytopenia and coagulopathy. His last dose of Coumadin 2 mg was given 02/15/18. INR today is 2.0 in spite of 5 days without anticoagulation. PT remains elevated at 20.4 and APTT elevated at 34.8. Hematology lab workup reveals HRT antibodies negative. The remainder of the workup is pending. Bilateral lower extremity ultrasound indicated no DVT, but positive for an occlusive thrombus in the greater saphenous vein on the right. Chest x-ray shows coarse interstitial changes in both lungs, unchanged from prior examination. Peripheral smear shows substantial anemia and thrombocytopenia with a left shift and reactive features in the neutrophils. Some acanthocytes and ovalocytes appreciated with substantial numbers of schistocytes not observed making a microangiopathic hemolytic process less likely. He became significantly anxious this morning requiring morphine 2 mg in addition to his daily scheduled BuSpar. This was effective in relieving his symptoms and at this evaluation he is resting quietly after dialysis. . Family/Friend Interactions: Spoke with Mr. Constantino's daughter, Dinorah, and , Shyla, regarding his continued decline and progressive organ dysfunction. Echocardiogram done 2017 indicates normal ejection fraction 50-55% with mild aortic valve and mitral valve regurgitation. No abnormal findings were noted in the tricuspid valve during that evaluation. Repeat echocardiogram done 02/08/2018, 3 weeks later, notes an ejection fraction of 60-65% with moderately dilated right ventricle, moderate to severely dilated right atrium, moderate tricuspid regurgitation, mild pulmonary valve regurgitation and estimated pulmonary artery pressures in the moderate to severe range of 66.9. He is receiving sildenafil 30 mg 3 times daily for pulmonary hypertension. Critical care medicine is opining possible pulmonary/renal syndrome. Coupled with increasing dependent edema, liver congestion with suspected coagulopathy per hematology, this scenario is suggestive of worsening right-sided heart failure. The clinical findings and consultants opinions were discussed with the family. It is the opinion of his daughter, Dinorah, that he is experiencing suffering. She states that he is aware this time that he is not improving, however, she states that he is intermittently confused and has difficulty grasping these concepts. After extensive discussion, they agreed that he should not undergo cardiopulmonary resuscitation and requested a DNR status. They wish to take the weekend to contact all the family date them in case any want to come and visit him but are considering transitioning to hospice. This time they are visiting the [facility] to evaluate that possibility. . Advance Directives Health Care Surrogate: Copy in medical record Advance Directives Date on File: 02/02/18 Health Care Surrogate Name and Number: daughter Dinorah Greer Objective Vital Signs: Vital Signs 02/19/18 14:15 02/19/18 14:30 02/19/18 14:45 Temperature Pulse Rate 80 80 80 Respiratory Rate 21 16 28 H Blood Pressure 93/53 L 90/49 L 90/48 L Pulse Oximetry 92 L 98 91 L 02/19/18 15:00 02/19/18 15:15 02/19/18 15:30 Temperature Pulse Rate 80 80 80 Respiratory Rate 23 17 20 Blood Pressure 97/52 L 88/52 L 98/55 L Pulse Oximetry 92 L 95 93 L 02/19/18 15:45 02/19/18 16:00 02/19/18 16:15 Temperature 97.7 F Pulse Rate 80 80 80 Respiratory Rate 15 13 19 Blood Pressure 100/51 L 104/51 L 100/54 L Pulse Oximetry 96 95 98 02/19/18 16:30 02/19/18 16:32 02/19/18 16:45 Temperature Pulse Rate 80 80 Respiratory Rate 29 H 22 Blood Pressure 97/54 L 95/51 L Pulse Oximetry 93 L 96 93 L 02/19/18 18:00 02/19/18 20:00 08/23/18 20:45 Temperature 97.6 F Pulse Rate 80 80 Respiratory Rate 31 H Blood Pressure 96/50 L Pulse Oximetry 92 L 91 L 02/19/18 22:00 02/20/18 00:00 02/20/18 02:00 Temperature 97.8 F Pulse Rate 80 80 80 Respiratory Rate 22 Blood Pressure 102/57 L Pulse Oximetry 92 L 02/20/18 04:00 02/20/18 06:00 02/20/18 07:55 Temperature 97.8 F Pulse Rate 80 80 Respiratory Rate 25 H Blood Pressure 121/61 Pulse Oximetry 90 L 88 L 02/20/18 08:00 02/20/18 10:00 02/20/18 12:00 Temperature 97.6 F 98 F Pulse Rate 79 79 79 Respiratory Rate Blood Pressure 124/57 L 112/56 L Pulse Oximetry 92 L Intake & Output 02/19/18 02/20/18 02/20/18 18:59 06:59 18:59 Intake Total 100 / 100 200 / 200 Balance 100 / 100 200 / 200 Weight 206 lb 2.115 oz Intake: IV 100 / 100 Maxipime Inj 1,000 MG In NS Inj 100 / 100 100 ML @ 200 mls/hr IV.SIG Q24H PEDRO Rx#:[id number] Oral 200 / 200 Other: Date of Last Bowel Movement 02/19/18 02/19/18 02/19/18 # Bowel Movements 1 1 Physical Exam: CONSTITUTIONAL/GENERAL: This is an adequately nourished patient, on high flow nasal cannula O2 just post dialysis. NECK: Trachea midline. Supple, nontender. CARDIOVASCULAR: regular rhythm, paced rate 80, 2/6 systolic ejection murmur, no rub no gallop. RESPIRATORY/CHEST: Clear breath sounds with faint bibasilar crackles, no accessory muscle use, no wheezing, no rhonchi. GASTROINTESTINAL: Abdomen soft, non-tender, nondistended. No hepato-splenomegaly , or palpable masses. No guarding. Bowel sounds present. MUSCULOSKELETAL: Extremities without clubbing, cyanosis. 1+ dependent edema. No joint tenderness or effusion noted. No calf tenderness. No mottling or clubbing. NEUROLOGICAL: Somewhat lethargic but able to answer questions. Moves all extremities. Oriented 3. PSYCHIATRIC: Mildly anxious, cooperative. . Diagnostic Tests Laboratory: Laboratory Results - last 72 hr 02/17/18 02/17/18 02/18/18 09:00 09:00 04:24 WBC RBC Hgb Hct MCV MCH MCHC RDW Plt Count MPV Prelim Diff (Auto) Neut % (Auto) Lymph % (Auto) [place] % (Auto) Eos % (Auto) Baso % (Auto) Neut # (Auto) Lymph # (Auto) [place] # (Auto) Eos # (Auto) Baso # (Auto) WBC Differential Diff Scan Seg Neuts % (Manual) Band Neuts % (Manual) Lymphocytes % (Manual) Monocytes % (Manual) Abs Neuts (Manual) Differential Comment Platelet Estimate Platelet Morphology Ovalocytes Ruth Cells Acanthocytes (Spur) Smear Path Review Retic Count Absolute Retic PT INR APTT PT Normal Plasma Immed PT Normal Plasma 1 Hr PT Pat/Norm 1:4 Immed PT Pat/Norm 1:1 Immed PT Pat/Norm 1:1 1h 37c PT Pat/Norm 4:1 Immed PT Patient Plasma Immed PTT Normal Plasma Immed PTT Normal Plasma 1 Hr PTT Pat/Norm 1:4 Immed PTT Pat/Norm 1:1 Immed PTT Pat/Norm 1:1 1h 37c PTT Pat/Norm 4:1 Immed PTT Patient Plsma Immed Fibrinogen Factor Inhibitor Screen Puncture Site Right radial Cancelled Right radial Patient Temperature 98.6 Cancelled 98.6 O2 Saturation 96 Cancelled 93 ABG pH 7.28 L* Cancelled 7.36 L ABG pCO2 61 H* Cancelled 44 H ABG pO2 258 H Cancelled 86 ABG HCO3 28 H Cancelled 24 ABG O2 Content 13.2 Cancelled 12.0 ABG Base Excess 1.4 Cancelled -0.8 ABG Methemoglobin 1.4 Cancelled 1.4 Eligio Test Present Cancelled Present Hemoglobin 9.3 L Cancelled 9.1 L Carboxyhemoglobin 2.5 Cancelled 2.7 O2 Delivery Device Ventilator Cancelled Ventilator Liter Flow Cancelled Vent Setting 550/16/10peep Cancelled Prvc20/550/0.8/+10 Inspired O2 100 Cancelled 35 Critical Value Yes Cancelled No Sodium Potassium Chloride Carbon Dioxide Anion Gap BUN Creatinine Estimated GFR POC Glucose Random Glucose Calcium Magnesium Total Bilirubin AST ALT Alkaline Phosphatase Total Protein Albumin Heparin Dep Plt Ab OD Hep-Induced Plt Ab Vidya Blood Type Antibody Screen MTS Gel Crossmatch 02/18/18 02/18/1818 05:20 05:20 05:20 WBC 8.6 RBC 3.15 L Hgb 9.3 L Hct 29.0 L MCV 92.1 MCH 29.4 MCHC 31.9 L RDW 21.7 H Plt Count 52 L MPV 11.1 H Prelim Diff (Auto) Slide review pending Neut % (Auto) 91.3 H Lymph % (Auto) 6.1 L [place] % (Auto) 1.9 Eos % (Auto) 0.5 Baso % (Auto) 0.2 Neut # (Auto) 7.9 H Lymph # (Auto) 0.5 L [place] # (Auto) 0.2 Eos # (Auto) 0.0 Baso # (Auto) 0.0 WBC Differential . Diff Scan Auto diff confirmed Seg Neuts % (Manual) Band Neuts % (Manual) Lymphocytes % (Manual) Monocytes % (Manual) Abs Neuts (Manual) Differential Comment . Platelet Estimate Low L Platelet Morphology Normal Ovalocytes 1+ H [place] Cells Acanthocytes (Spur) 1+ H Smear Path Review Retic Count Absolute Retic PT 21.0 H INR 2.1 APTT PT Normal Plasma Immed PT Normal Plasma 1 Hr PT Pat/Norm 1:4 Immed PT Pat/Norm 1:1 Immed PT Pat/Norm 1:1 1h 37c PT Pat/Norm 4:1 Immed PT Patient Plasma Immed PTT Normal Plasma Immed PTT Normal Plasma 1 Hr PTT Pat/Norm 1:4 Immed PTT Pat/Norm 1:1 Immed PTT Pat/Norm 1:1 1h 37c PTT Pat/Norm 4:1 Immed PTT Patient Plsma Immed Fibrinogen Factor Inhibitor Screen Puncture Site Patient Temperature O2 Saturation ABG pH ABG pCO2 ABG pO2 ABG HCO3 ABG O2 Content ABG Base Excess ABG Methemoglobin Eligio Test Hemoglobin Carboxyhemoglobin O2 Delivery Device Liter Flow Vent Setting Inspired O2 Critical Value Sodium 138 Potassium 5.6 H Chloride 99 Carbon Dioxide 24.3 Anion Gap 15 BUN 118 H Creatinine 7.46 H Estimated GFR 7 L POC Glucose Random Glucose 147 H Calcium 8.3 L Magnesium 2.7 H Total Bilirubin 1.1 H AST 30 ALT 45 Alkaline Phosphatase 109 Total Protein 6.1 L Albumin 2.7 L Heparin Dep Plt Ab OD Hep-Induced Plt Ab Vidya Blood Type Antibody Screen MTS Gel Crossmatch 02/18/18 02/18/18 02/18/18 08:44 12:28 16:57 WBC RBC Hgb Hct MCV MCH MCHC RDW Plt Count MPV Prelim Diff (Auto) Neut % (Auto) Lymph % (Auto) [place] % (Auto) Eos % (Auto) Baso % (Auto) Neut # (Auto) Lymph # (Auto) [place] # (Auto) Eos # (Auto) Baso # (Auto) WBC Differential Diff Scan Seg Neuts % (Manual) Band Neuts % (Manual) Lymphocytes % (Manual) Monocytes % (Manual) Abs Neuts (Manual) Differential Comment Platelet Estimate Platelet Morphology Ovalocytes Ruth Cells Acanthocytes (Spur) Smear Path Review Retic Count Absolute Retic PT INR APTT PT Normal Plasma Immed PT Normal Plasma 1 Hr PT Pat/Norm 1:4 Immed PT Pat/Norm 1:1 Immed PT Pat/Norm 1:1 1h 37c PT Pat/Norm 4:1 Immed PT Patient Plasma Immed PTT Normal Plasma Immed PTT Normal Plasma 1 Hr PTT Pat/Norm 1:4 Immed PTT Pat/Norm 1:1 Immed PTT Pat/Norm 1:1 1h 37c PTT Pat/Norm 4:1 Immed PTT Patient Plsma Immed Fibrinogen Factor Inhibitor Screen Puncture Site Patient Temperature O2 Saturation ABG pH ABG pCO2 ABG pO2 ABG HCO3 ABG O2 Content ABG Base Excess ABG Methemoglobin Eligio Test Hemoglobin Carboxyhemoglobin O2 Delivery Device Liter Flow Vent Setting Inspired O2 Critical Value Sodium Potassium Chloride Carbon Dioxide Anion Gap BUN Creatinine Estimated GFR POC Glucose 129 H 102 106 Random Glucose Calcium Magnesium Total Bilirubin AST ALT Alkaline Phosphatase Total Protein Albumin Heparin Dep Plt Ab OD Hep-Induced Plt Ab Vidya Blood Type Antibody Screen MTS Gel Crossmatch 02/18/18 02/19/18 02/19/18 22:53 06:57 06:57 WBC 4.4 RBC 2.79 L Hgb 8.2 L Hct 25.6 L MCV 91.7 MCH 29.3 MCHC 32.0 RDW 21.5 H Plt Count 39 L MPV 10.6 Prelim Diff (Auto) Slide review pending Neut % (Auto) 88.9 H Lymph % (Auto) 7.5 L [place] % (Auto) 3.3 Eos % (Auto) 0.1 Baso % (Auto) 0.2 Neut # (Auto) 3.9 Lymph # (Auto) 0.3 L [place] # (Auto) 0.1 Eos # (Auto) 0.0 Baso # (Auto) 0.0 WBC Differential Manual diff final Diff Scan Seg Neuts % (Manual) 86 H Band Neuts % (Manual) 11 H Lymphocytes % (Manual) 1 L Monocytes % (Manual) 2 Abs Neuts (Manual) 4.3 Differential Comment . Platelet Estimate Low L Platelet Morphology Normal Ovalocytes 1+ H [place] Cells Acanthocytes (Spur) 1+ H Smear Path Review Retic Count Absolute Retic PT INR APTT PT Normal Plasma Immed PT Normal Plasma 1 Hr PT Pat/Norm 1:4 Immed PT Pat/Norm 1:1 Immed PT Pat/Norm 1:1 1h 37c PT Pat/Norm 4:1 Immed PT Patient Plasma Immed PTT Normal Plasma Immed PTT Normal Plasma 1 Hr PTT Pat/Norm 1:4 Immed PTT Pat/Norm 1:1 Immed PTT Pat/Norm 1:1 1h 37c PTT Pat/Norm 4:1 Immed PTT Patient Plsma Immed Fibrinogen Factor Inhibitor Screen Puncture Site Patient Temperature O2 Saturation ABG pH ABG pCO2 ABG pO2 ABG HCO3 ABG O2 Content ABG Base Excess ABG Methemoglobin Eligio Test Hemoglobin Carboxyhemoglobin O2 Delivery Device Liter Flow Vent Setting Inspired O2 Critical Value Sodium 139 Potassium 4.9 Chloride 98 Carbon Dioxide 23.4 Anion Gap 18 H BUN 86 H Creatinine 5.90 H Estimated GFR 10 L POC Glucose 117 H Random Glucose 147 H Calcium 8.5 Magnesium 2.6 H Total Bilirubin 1.9 H AST 48 H ALT 41 Alkaline Phosphatase 93 Total Protein 5.9 L Albumin 2.8 L Heparin Dep Plt Ab OD Hep-Induced Plt Ab Vidya Blood Type Antibody Screen MTS Gel Crossmatch 02/19/18 02/19/18 02/19/18 06:57 06:57 06:57 WBC RBC Hgb Hct MCV MCH MCHC RDW Plt Count MPV Prelim Diff (Auto) Neut % (Auto) Lymph % (Auto) [place] % (Auto) Eos % (Auto) Baso % (Auto) Neut # (Auto) Lymph # (Auto) [place] # (Auto) Eos # (Auto) Baso # (Auto) WBC Differential Diff Scan Seg Neuts % (Manual) Band Neuts % (Manual) Lymphocytes % (Manual) Monocytes % (Manual) Abs Neuts (Manual) Differential Comment Platelet Estimate Platelet Morphology Ovalocytes [place] Cells Acanthocytes (Spur) Smear Path Review Retic Count 1.3 Absolute Retic 37.9 PT 22.9 H INR 2.3 APTT 37.7 H PT Normal Plasma Immed PT Normal Plasma 1 Hr PT Pat/Norm 1:4 Immed PT Pat/Norm 1:1 Immed PT Pat/Norm 1:1 1h 37c PT Pat/Norm 4:1 Immed PT Patient Plasma Immed PTT Normal Plasma Immed PTT Normal Plasma 1 Hr PTT Pat/Norm 1:4 Immed PTT Pat/Norm 1:1 Immed PTT Pat/Norm 1:1 1h 37c PTT Pat/Norm 4:1 Immed PTT Patient Plsma Immed Fibrinogen 434 H Factor Inhibitor Screen Puncture Site Patient Temperature O2 Saturation ABG pH ABG pCO2 ABG pO2 ABG HCO3 ABG O2 Content ABG Base Excess ABG Methemoglobin Eligio Test Hemoglobin Carboxyhemoglobin O2 Delivery Device Liter Flow Vent Setting Inspired O2 Critical Value Sodium Potassium Chloride Carbon Dioxide Anion Gap BUN Creatinine Estimated GFR POC Glucose Random Glucose Calcium Magnesium Total Bilirubin AST ALT Alkaline Phosphatase Total Protein Albumin Heparin Dep Plt Ab OD 0.166 Hep-Induced Plt Ab Vidya Negative Blood Type Antibody Screen MTS Gel Crossmatch 02/19/18 02/19/18 02/19/18 06:57 07:27 11:43 WBC RBC Hgb Hct MCV MCH MCHC RDW Plt Count MPV Prelim Diff (Auto) Neut % (Auto) Lymph % (Auto) [place] % (Auto) Eos % (Auto) Baso % (Auto) Neut # (Auto) Lymph # (Auto) [place] # (Auto) Eos # (Auto) Baso # (Auto) WBC Differential Diff Scan Seg Neuts % (Manual) Band Neuts % (Manual) Lymphocytes % (Manual) Monocytes % (Manual) Abs Neuts (Manual) Differential Comment Platelet Estimate Platelet Morphology Ovalocytes Ruth Cells Acanthocytes (Spur) Smear Path Review Retic Count Absolute Retic PT INR APTT PT Normal Plasma Immed PT Normal Plasma 1 Hr PT Pat/Norm 1:4 Immed PT Pat/Norm 1:1 Immed PT Pat/Norm 1:1 1h 37c PT Pat/Norm 4:1 Immed PT Patient Plasma Immed PTT Normal Plasma Immed PTT Normal Plasma 1 Hr PTT Pat/Norm 1:4 Immed PTT Pat/Norm 1:1 Immed PTT Pat/Norm 1:1 1h 37c PTT Pat/Norm 4:1 Immed PTT Patient Plsma Immed Fibrinogen Factor Inhibitor Screen Puncture Site Patient Temperature O2 Saturation ABG pH ABG pCO2 ABG pO2 ABG HCO3 ABG O2 Content ABG Base Excess ABG Methemoglobin Eligio Test Hemoglobin Carboxyhemoglobin O2 Delivery Device Liter Flow Vent Setting Inspired O2 Critical Value Sodium Potassium Chloride Carbon Dioxide Anion Gap BUN Creatinine Estimated GFR POC Glucose 159 H 239 H Random Glucose Calcium Magnesium Total Bilirubin AST ALT Alkaline Phosphatase Total Protein Albumin Heparin Dep Plt Ab OD Hep-Induced Plt Ab Vidya Blood Type Antibody Screen MTS Gel Crossmatch 02/19/18 02/19/18 02/19/18 11:44 17:18 21:35 WBC RBC Hgb Hct MCV MCH MCHC RDW Plt Count MPV Prelim Diff (Auto) Neut % (Auto) Lymph % (Auto) [place] % (Auto) Eos % (Auto) Baso % (Auto) Neut # (Auto) Lymph # (Auto) [place] # (Auto) Eos # (Auto) Baso # (Auto) WBC Differential Diff Scan Seg Neuts % (Manual) Band Neuts % (Manual) Lymphocytes % (Manual) Monocytes % (Manual) Abs Neuts (Manual) Differential Comment Platelet Estimate Platelet Morphology Ovalocytes [place] Cells Acanthocytes (Spur) Smear Path Review Retic Count Absolute Retic PT INR APTT PT Normal Plasma Immed PT Normal Plasma 1 Hr PT Pat/Norm 1:4 Immed PT Pat/Norm 1:1 Immed PT Pat/Norm 1:1 1h 37c PT Pat/Norm 4:1 Immed PT Patient Plasma Immed PTT Normal Plasma Immed PTT Normal Plasma 1 Hr PTT Pat/Norm 1:4 Immed PTT Pat/Norm 1:1 Immed PTT Pat/Norm 1:1 1h 37c PTT Pat/Norm 4:1 Immed PTT Patient Plsma Immed Fibrinogen Factor Inhibitor Screen Puncture Site Patient Temperature O2 Saturation ABG pH ABG pCO2 ABG pO2 ABG HCO3 ABG O2 Content ABG Base Excess ABG Methemoglobin Eligio Test Hemoglobin Carboxyhemoglobin O2 Delivery Device Liter Flow Vent Setting Inspired O2 Critical Value Sodium Potassium Chloride Carbon Dioxide Anion Gap BUN Creatinine Estimated GFR POC Glucose 254 H 421 H 289 H Random Glucose Calcium Magnesium Total Bilirubin AST ALT Alkaline Phosphatase Total Protein Albumin Heparin Dep Plt Ab OD Hep-Induced Plt Ab Vidya Blood Type Antibody Screen MTS Gel Crossmatch 02/20/18 02/20/18 02/20/18 06:24 06:24 06:24 WBC 5.3 RBC 2.80 L Hgb 8.2 L Hct 25.2 L MCV 90.0 MCH 29.3 MCHC 32.6 RDW 21.3 H Plt Count 72 L D MPV 11.6 H Prelim Diff (Auto) Slide review pending Neut % (Auto) 88.7 H Lymph % (Auto) 8.4 L [place] % (Auto) 2.7 Eos % (Auto) 0.2 Baso % (Auto) 0.0 Neut # (Auto) 4.7 Lymph # (Auto) 0.5 L [place] # (Auto) 0.1 Eos # (Auto) 0.0 Baso # (Auto) 0.0 WBC Differential Manual diff final Diff Scan Seg Neuts % (Manual) 85 H Band Neuts % (Manual) 10 H Lymphocytes % (Manual) 4 L Monocytes % (Manual) 1 Abs Neuts (Manual) 5.0 Differential Comment . Platelet Estimate Low L Platelet Morphology Normal Ovalocytes 1+ H [place] Cells 2+ H Acanthocytes (Spur) Occ H Smear Path Review Retic Count Absolute Retic PT 20.4 H INR 2.0 APTT PT Normal Plasma Immed PT Normal Plasma 1 Hr PT Pat/Norm 1:4 Immed PT Pat/Norm 1:1 Immed PT Pat/Norm 1:1 1h 37c PT Pat/Norm 4:1 Immed PT Patient Plasma Immed PTT Normal Plasma Immed PTT Normal Plasma 1 Hr PTT Pat/Norm 1:4 Immed PTT Pat/Norm 1:1 Immed PTT Pat/Norm 1:1 1h 37c PTT Pat/Norm 4:1 Immed PTT Patient Plsma Immed Fibrinogen Factor Inhibitor Screen Puncture Site Patient Temperature O2 Saturation ABG pH ABG pCO2 ABG pO2 ABG HCO3 ABG O2 Content ABG Base Excess ABG Methemoglobin Eligio Test Hemoglobin Carboxyhemoglobin O2 Delivery Device Liter Flow Vent Setting Inspired O2 Critical Value Sodium 136 Potassium 5.1 Chloride 95 L Carbon Dioxide 26.5 Anion Gap 15 BUN 122 H Creatinine 7.23 H Estimated GFR 8 L POC Glucose Random Glucose 153 H Calcium 8.5 Magnesium 2.6 H Total Bilirubin 1.6 H AST 56 H ALT 51 Alkaline Phosphatase 124 H Total Protein 5.9 L Albumin 2.7 L Heparin Dep Plt Ab OD Hep-Induced Plt Ab Vidya Blood Type Antibody Screen MTS Gel Crossmatch 02/20/18 02/20/18 02/20/18 06:24 06:39 11:02 WBC RBC Hgb Hct MCV MCH MCHC RDW Plt Count MPV Prelim Diff (Auto) Neut % (Auto) Lymph % (Auto) [place] % (Auto) Eos % (Auto) Baso % (Auto) Neut # (Auto) Lymph # (Auto) [place] # (Auto) Eos # (Auto) Baso # (Auto) WBC Differential Diff Scan Seg Neuts % (Manual) Band Neuts % (Manual) Lymphocytes % (Manual) Monocytes % (Manual) Abs Neuts (Manual) Differential Comment Platelet Estimate Platelet Morphology Ovalocytes Ruth Cells Acanthocytes (Spur) Smear Path Review Retic Count Absolute Retic PT INR APTT 34.8 H PT Normal Plasma Immed 10.3 PT Normal Plasma 1 Hr 10.6 PT Pat/Norm 1:4 Immed 10.6 PT Pat/Norm 1:1 Immed 11.4 PT Pat/Norm 1:1 1h 37c 11.4 PT Pat/Norm 4:1 Immed 14.0 H PT Patient Plasma Immed 20.4 H PTT Normal Plasma Immed 24.8 PTT Normal Plasma 1 Hr 25.7 PTT Pat/Norm 1:4 Immed 25.4 PTT Pat/Norm 1:1 Immed 26.8 PTT Pat/Norm 1:1 1h 37c 29.6 PTT Pat/Norm 4:1 Immed 29.9 PTT Patient Plsma Immed 34.8 H Fibrinogen 428 H Factor Inhibitor Screen Puncture Site Patient Temperature O2 Saturation ABG pH ABG pCO2 ABG pO2 ABG HCO3 ABG O2 Content ABG Base Excess ABG Methemoglobin Eligio Test Hemoglobin Carboxyhemoglobin O2 Delivery Device Liter Flow Vent Setting Inspired O2 Critical Value Sodium Potassium Chloride Carbon Dioxide Anion Gap BUN Creatinine Estimated GFR POC Glucose Random Glucose Calcium Magnesium Total Bilirubin AST ALT Alkaline Phosphatase Total Protein Albumin Heparin Dep Plt Ab OD Hep-Induced Plt Ab Vidya Blood Type A Positive Antibody Screen Negative MTS Gel Crossmatch See Detail 02/20/18 11:16 WBC RBC Hgb Hct MCV MCH MCHC RDW Plt Count MPV Prelim Diff (Auto) Neut % (Auto) Lymph % (Auto) [place] % (Auto) Eos % (Auto) Baso % (Auto) Neut # (Auto) Lymph # (Auto) [place] # (Auto) Eos # (Auto) Baso # (Auto) WBC Differential Diff Scan Seg Neuts % (Manual) Band Neuts % (Manual) Lymphocytes % (Manual) Monocytes % (Manual) Abs Neuts (Manual) Differential Comment Platelet Estimate Platelet Morphology Ovalocytes [place] Cells Acanthocytes (Spur) Smear Path Review Retic Count Absolute Retic PT INR APTT PT Normal Plasma Immed PT Normal Plasma 1 Hr PT Pat/Norm 1:4 Immed PT Pat/Norm 1:1 Immed PT Pat/Norm 1:1 1h 37c PT Pat/Norm 4:1 Immed PT Patient Plasma Immed PTT Normal Plasma Immed PTT Normal Plasma 1 Hr PTT Pat/Norm 1:4 Immed PTT Pat/Norm 1:1 Immed PTT Pat/Norm 1:1 1h 37c PTT Pat/Norm 4:1 Immed PTT Patient Plsma Immed Fibrinogen Factor Inhibitor Screen Puncture Site Patient Temperature O2 Saturation ABG pH ABG pCO2 ABG pO2 ABG HCO3 ABG O2 Content ABG Base Excess ABG Methemoglobin Eligio Test Hemoglobin Carboxyhemoglobin O2 Delivery Device Liter Flow Vent Setting Inspired O2 Critical Value Sodium Potassium Chloride Carbon Dioxide Anion Gap BUN Creatinine Estimated GFR POC Glucose 193 H Random Glucose Calcium Magnesium Total Bilirubin AST ALT Alkaline Phosphatase Total Protein Albumin Heparin Dep Plt Ab OD Hep-Induced Plt Ab Vidya Blood Type Antibody Screen MTS Gel Crossmatch Result Diagrams: 02/20/18 06:24 02/20/18 06:24 Microbiology: Microbiology 02/17/18 07:55 Gram Stain - Final Bronchial - Bronchial Bronchial Culture - Final Rare growth normal respiratory marielos 02/17/18 07:55 Acid Fast Bacilli Smear - Final Bronchial Washings - Bronchial No acid fast bacilli seen 02/17/18 07:55 Fungal Smear - Final Bronchial Washings - Bronchial No fungal elements seen Imaging: Chest X-Ray 01/15/18 18:13 CONCLUSION: Mild interstitial prominence without focal airspace opacities. Slight improvement prior 12/12/2017. Stable cardiomegaly. Chest X-Ray 01/23/18 09:37 CONCLUSION: Mild interval increase in interstitial opacities of concern for pulmonary edema. Abdomen X-Ray 01/23/18 23:05 CONCLUSION: 1. Nonobstructive bowel gas pattern. Chest X-Ray 01/24/18 08:50 CONCLUSION: No appreciable change. Chest X-Ray 01/25/18 09:25 CONCLUSION: No significant change. Chest X-Ray 01/29/18 09:48 CONCLUSION: 1. Stable cardiomegaly and mild positive fluid balance. 2. No significant interval change. Chest CTA 01/30/18 00:00 CONCLUSION: 1. No evidence of pulmonary embolus. 2. Severe bilateral pulmonary parenchymal opacity with predominance at the dependent portions of the lungs. Difficult diagnosis includes pulmonary edema and infection. 3. Elongated lobulated nodular density in the right midlung following the major fissure likely represents loculated pleural effusion. 4. Enlarged pulmonary arteries suggesting pulmonary arterial hypertension. 5. Enlarged heart and small pericardial effusion. 6. Small left than right pleural effusions. 7. Mildly enlarged mediastinal lymph nodes, likely reactive. Chest X-Ray 02/04/18 00:00 CONCLUSION: 1. Patchy infiltrates bilaterally consistent with moderate pulmonary edema versus pneumonia. Clinical correlation is recommended. 2. Cardiomegaly. 3. Tiny bilateral pleural effusions. Chest X-Ray 02/09/18 08:04 CONCLUSION: 1. Cardiomegaly with interstitial edema. 2. Mild airspace disease in the right lung base, presumably atelectasis. Chest X-Ray 02/12/18 00:00 CONCLUSION: Stable chest x-ray with enlarged cardiac silhouette with bilateral diffuse interstitial process. Although nonspecific the changes could be related to pulmonary edema. Chest X-Ray 02/15/18 06:00 CONCLUSION: Cardiomegaly. Diffuse increased interstitial markings likely related to diffuse processes such as edema. Possible mild right pleural effusion. Chest X-Ray 02/16/18 06:00 CONCLUSION: Worsening bilateral pulmonary infiltrates. Radiographic pattern suggesting pulmonary edema. Chest X-Ray 02/17/18 00:00 CONCLUSION: 1. Endotracheal tube in appropriate position with tip measuring 6.5 cm from the cam. 2. Stable severe bilateral interstitial opacity and airspace consolidation. Chest X-Ray 02/18/18 00:00 CONCLUSION: Slight interval improvement in aeration Liver Ultrasound 02/19/18 22:00 CONCLUSION: 1. Spleen is normal in size and appearance. 2. Gallbladder is filled with sludge. Grounds Keeper felt based positive sonographic Malloy sign may be present. Suggest correlating with the clinical examination and history. There is any clinical concern for acute cholecystitis consider evaluation with hepatobiliary scintigraphy to evaluate for cystic duct obstruction. 3. Dilated hepatic veins, IVC, and pulsatile blood flow in the main portal vein suggest elevated right heart pressures or tricuspid regurgitation. 4. Right kidney changes consistent with end-stage renal disease including abnormal increased echotexture and multiple cystic lesions. 5. There is trace perihepatic free fluid. Venous Doppler Study 02/19/18 22:00 CONCLUSION: 1. No evidence of DVT. 2. There is occlusive thrombus in the greater saphenous vein on the right side. Chest X-Ray 02/20/18 00:00 CONCLUSION: No significant change following extubation. Procedures: 01/26/18: Cardiac catheterization 02/02/18: Cardiac catheterization: Insertion of Medtronic Micra and AV gilbert ablation 02/17/2018: Bronchoscopy without biopsy . 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 Legal:His daughter, Dinorah Greer, is his healthcare decision maker/HCS. Ethical issues impacting care: None noted. Important Contacts: Daughter: Dinorah Greer (Cindy) . Prognosis: His prognosis is poor. He has significant hypoxic lung disease/respiratory failure, end-stage renal disease, diabetes, hypertension and is at risk for further complications and decline. He is likely terminal, and would be appropriate for hospice his goals were to comfort oriented. . Code Status: Full Code Plan: PLAN: CODE STATUS: DO NOT RESUSCITATE. DECISION-MAKING: The patient is currently capacitated to make his own decisions, however, previously requested assisted decision making with his daughter, Dinorah Greer (Cindy). He has chosen her to be his HCS. GOALS: Transitioning to comfort at this time. SYMPTOMS: * Anxiety: Receiving BuSpar to avoid oversedation and further compromise of fragile respiratory status. Did require an additional dose of morphine this morning for severe anxiety. 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 He is currently extubated and has transitioned to high flow, remains weak, tachypneic. Family coming to the awareness that he is not improving and is suffering. Given his continued decline they have elected a DO NOT RESUSCITATE status. They are considering hospice but would like to invite family to come see him if they are able prior to making that decision. Palliative care will continue to follow the patient during hospitalization. . Attestation Attestation: To help prompt me to consider important information that might be impacting today's encounter and assessment, information from prior notes written by myself or my colleagues may have been "brought forward" into today's note. My signature on this note, however, is an attestation that I personally performed the exam, history, and/or decision-making noted today, and, unless otherwise indicated, the interactions with patient, family, and staff as well as the review of records all occurred today. I also attest that the listed assessment and stated plan reflect my best clinical judgment today based on the combination of historical information, prior notes, and today's exam/ interactions. When time spent is documented, it refers only to time spent today by the signer, or if indicated, combined time spent today by collaborating physician/nurse practitioner. .
[2018-02-20] MEDS: Heparin 10,000 UNITS/10 ML Vial (for IV use) OTHER PRN (15:05)
--- NOTE | 2018-02-20 16:18 | P.PNONC ---
Subjective Interval history: Patient lying in bed, currently with 100% high flow O2 via nasal cannula in place. He states he is not feeling well today, "definitely worse than yesterday " Currently undergoing hemodialysis, dialysis nurse at the bedside. Objective Vital Signs/Intake & Output: Vital Signs 02/19/18 16:15 02/19/18 16:30 02/19/18 16:32 Temperature Pulse Rate 80 80 Respiratory Rate 19 29 H Blood Pressure 100/54 L 97/54 L Pulse Oximetry 98 93 L 96 02/19/18 16:45 02/19/18 18:00 02/19/18 20:00 Temperature 97.6 F Pulse Rate 80 80 80 Respiratory Rate 22 31 H Blood Pressure 95/51 L 96/50 L Pulse Oximetry 93 L 92 L 02/19/18 20:45 02/19/18 22:00 02/20/18 00:00 Temperature 97.8 F Pulse Rate 80 80 Respiratory Rate 22 Blood Pressure 102/57 L Pulse Oximetry 91 L 92 L 02/20/18 02:00 02/20/18 04:00 02/20/18 06:00 Temperature 97.8 F Pulse Rate 80 80 80 Respiratory Rate 25 H Blood Pressure 121/61 Pulse Oximetry 90 L 02/20/18 07:55 02/20/18 08:00 02/20/18 10:00 Temperature 97.6 F Pulse Rate 79 79 Respiratory Rate Blood Pressure 124/57 L Pulse Oximetry 88 L 92 L 02/20/18 12:00 02/20/18 14:48 02/20/18 14:53 Temperature 98 F 98.5 F 97.8 F Pulse Rate 79 79 79 Respiratory Rate 15 16 Blood Pressure 112/56 L 96/51 L Pulse Oximetry 92 L 02/20/18 15:54 Temperature 98 F Pulse Rate 79 Respiratory Rate 16 Blood Pressure 112/68 Pulse Oximetry 91 L Intake & Output 02/19/18 02/20/18 02/20/18 18:59 06:59 18:59 Intake Total 100 / 100 200 / 200 480 / 480 Balance 100 / 100 200 / 200 480 / 480 Weight 93.5 kg Intake: IV 100 / 100 Maxipime Inj 1,000 MG In NS Inj 100 / 100 100 ML @ 200 mls/hr IV.SIG Q24H [facility] Rx#:[id number] Oral 200 / 200 Other 80 / 80 Rbc As-3 Leukoreduced Unit 80 / 80 [id number] Intake (Blood Product) Amt 400 / 400 Rbc As-3 Leukoreduced Unit 400 / 400 [id number] Other: Date of Last Bowel Movement 02/19/18 02/19/18 02/19/18 # Bowel Movements 1 1 Result Diagrams: 02/20/18 06:24 02/20/18 06:24 Laboratory Results: Laboratory Results - last 24 hr 02/19/18 02/19/18 02/20/18 17:18 21:35 06:24 WBC RBC Hgb Hct MCV MCH MCHC RDW Plt Count MPV Prelim Diff (Auto) Neut % (Auto) Lymph % (Auto) [place] % (Auto) Eos % (Auto) Baso % (Auto) Neut # (Auto) Lymph # (Auto) [place] # (Auto) Eos # (Auto) Baso # (Auto) WBC Differential Seg Neuts % (Manual) Band Neuts % (Manual) Lymphocytes % (Manual) Monocytes % (Manual) Abs Neuts (Manual) Differential Comment Platelet Estimate Platelet Morphology Ovalocytes Ruth Cells Acanthocytes (Spur) PT 20.4 H INR 2.0 APTT PT Normal Plasma Immed PT Normal Plasma 1 Hr PT Pat/Norm 1:4 Immed PT Pat/Norm 1:1 Immed PT Pat/Norm 1:1 1h 37c PT Pat/Norm 4:1 Immed PT Patient Plasma Immed PT Mix Interpretation PTT Normal Plasma Immed PTT Normal Plasma 1 Hr PTT Pat/Norm 1:4 Immed PTT Pat/Norm 1:1 Immed PTT Pat/Norm 1:1 1h 37c PTT Pat/Norm 4:1 Immed PTT Patient Plsma Immed PTT Mix Interpretation Fibrinogen Factor Inhibitor Screen Sodium Potassium Chloride Carbon Dioxide Anion Gap BUN Creatinine Estimated GFR POC Glucose 421 H 289 H Random Glucose Calcium Magnesium Total Bilirubin AST ALT Alkaline Phosphatase Total Protein Albumin Blood Type Antibody Screen MTS Gel Crossmatch 02/20/18 02/20/18 02/20/18 06:24 06:24 06:24 WBC 5.3 RBC 2.80 L Hgb 8.2 L Hct 25.2 L MCV 90.0 MCH 29.3 MCHC 32.6 RDW 21.3 H Plt Count 72 L D MPV 11.6 H Prelim Diff (Auto) Slide review pending Neut % (Auto) 88.7 H Lymph % (Auto) 8.4 L [place] % (Auto) 2.7 Eos % (Auto) 0.2 Baso % (Auto) 0.0 Neut # (Auto) 4.7 Lymph # (Auto) 0.5 L [place] # (Auto) 0.1 Eos # (Auto) 0.0 Baso # (Auto) 0.0 WBC Differential Manual diff final Seg Neuts % (Manual) 85 H Band Neuts % (Manual) 10 H Lymphocytes % (Manual) 4 L Monocytes % (Manual) 1 Abs Neuts (Manual) 5.0 Differential Comment . Platelet Estimate Low L Platelet Morphology Normal Ovalocytes 1+ H [place] Cells 2+ H Acanthocytes (Spur) Occ H PT INR APTT 34.8 H PT Normal Plasma Immed PT Normal Plasma 1 Hr PT Pat/Norm 1:4 Immed PT Pat/Norm 1:1 Immed PT Pat/Norm 1:1 1h 37c PT Pat/Norm 4:1 Immed PT Patient Plasma Immed PT Mix Interpretation PTT Normal Plasma Immed PTT Normal Plasma 1 Hr PTT Pat/Norm 1:4 Immed PTT Pat/Norm 1:1 Immed PTT Pat/Norm 1:1 1h 37c PTT Pat/Norm 4:1 Immed PTT Patient Plsma Immed PTT Mix Interpretation Fibrinogen 428 H Factor Inhibitor Screen Sodium 136 Potassium 5.1 Chloride 95 L Carbon Dioxide 26.5 Anion Gap 15 BUN 122 H Creatinine 7.23 H Estimated GFR 8 L POC Glucose Random Glucose 153 H Calcium 8.5 Magnesium 2.6 H Total Bilirubin 1.6 H AST 56 H ALT 51 Alkaline Phosphatase 124 H Total Protein 5.9 L Albumin 2.7 L Blood Type Antibody Screen MTS Gel Crossmatch 02/20/18 02/20/18 02/20/18 06:39 11:02 11:16 WBC RBC Hgb Hct MCV MCH MCHC RDW Plt Count MPV Prelim Diff (Auto) Neut % (Auto) Lymph % (Auto) [place] % (Auto) Eos % (Auto) Baso % (Auto) Neut # (Auto) Lymph # (Auto) [place] # (Auto) Eos # (Auto) Baso # (Auto) WBC Differential Seg Neuts % (Manual) Band Neuts % (Manual) Lymphocytes % (Manual) Monocytes % (Manual) Abs Neuts (Manual) Differential Comment Platelet Estimate Platelet Morphology Ovalocytes Ruth Cells Acanthocytes (Spur) PT INR APTT PT Normal Plasma Immed 10.3 PT Normal Plasma 1 Hr 10.6 PT Pat/Norm 1:4 Immed 10.6 PT Pat/Norm 1:1 Immed 11.4 PT Pat/Norm 1:1 1h 37c 11.4 PT Pat/Norm 4:1 Immed 14.0 H PT Patient Plasma Immed 20.4 H PT Mix Interpretation PTT Normal Plasma Immed 24.8 PTT Normal Plasma 1 Hr 25.7 PTT Pat/Norm 1:4 Immed 25.4 PTT Pat/Norm 1:1 Immed 26.8 PTT Pat/Norm 1:1 1h 37c 29.6 PTT Pat/Norm 4:1 Immed 29.9 PTT Patient Plsma Immed 34.8 H PTT Mix Interpretation Fibrinogen Factor Inhibitor Screen Sodium Potassium Chloride Carbon Dioxide Anion Gap BUN Creatinine Estimated GFR POC Glucose 193 H Random Glucose Calcium Magnesium Total Bilirubin AST ALT Alkaline Phosphatase Total Protein Albumin Blood Type A Positive Antibody Screen Negative MTS Gel Crossmatch See Detail Culture Results: Microbiology 02/17/18 07:55 Gram Stain - Final Bronchial - Bronchial Bronchial Culture - Final Rare growth normal respiratory marielos 02/17/18 07:55 Acid Fast Bacilli Smear - Final Bronchial Washings - Bronchial No acid fast bacilli seen 02/17/18 07:55 Fungal Smear - Final Bronchial Washings - Bronchial No fungal elements seen Imaging Studies: Impressions Venous Doppler Study 02/19/18 22:00 CONCLUSION: 1. No evidence of DVT. 2. There is occlusive thrombus in the greater saphenous vein on the right side. Chest X-Ray 02/20/18 00:00 CONCLUSION: No significant change following extubation. Medications: Active Medications Generic Name Dose Route Start Last Admin Trade Name Freq PRN Reason Stop Dose Admin Albuterol 1 ampul 02/08/18 13:45 02/19/18 09:45 Duoneb Neb (Prn) NEB 1 ampul Q2HR NEB PRN Administration DYSPNEA Atorvastatin Calcium 80 mg 01/16/18 15:00 02/20/18 08:50 Lipitor PO 80 mg DAILY PEDRO Administration Bisacodyl 10 mg 01/15/18 21:01 02/01/18 03:41 Dulcolax Supp RECTAL 10 mg DAILY PRN Administration SEVERE CONSITIPATION Budesonide/Formoterol Fumarate 2 puff 01/16/18 09:00 02/20/18 10:31 Symbicort 160/4.5 Mcg Inh INH 2 puff BID PEDRO Administration Buspirone HCl 5 mg 01/16/18 09:00 02/20/18 08:51 Buspar PO 5 mg DAILY PEDRO Administration Calcium Acetate 667 mg 02/13/18 18:00 02/20/18 08:50 Phoslo PO 667 mg TID PEDRO Administration Chlorhexidine Gluconate 15 ml 02/17/18 20:00 02/20/18 10:16 Peridex 0.12% Oral Kit OROPHARYNG Not Given BID@0800,1999 [facility] Clotrimazole 10 mg 02/12/18 14:00 02/20/18 13:32 Mycelex Corry BUCCAL 02/26/18 13:59 10 mg 5 TIMES A DAY PEDRO Administration Diphenhydramine HCl 25 mg 01/16/18 13:04 02/20/18 13:32 Benadryl PO 25 mg UNSCH PRN Administration SEE LABEL COMMENTS Epoetin Yovanny 10,000 unit 01/19/18 10:00 02/20/18 15:06 Epogen Inj IV.PUSH 10,000 unit MOWEFR PEDRO Administration Gentamicin Sulfate 20 mg 01/16/18 13:04 02/20/18 15:06 Gentamicin Inj OTHER 20 mg WITH DIALYSIS PRN Administration Dwell Gentamycin Lock Heparin Sodium (Porcine) 8,000 units 02/20/18 12:00 02/20/18 13:31 Heparin Inj SQ 8,000 units Q12HR PEDRO Administration Heparin Sodium (Porcine) 8,000 units 01/16/18 13:04 01/31/18 09:28 Heparin Inj OTHER 8,000 units WITH DIALYSIS PRN Administration for machine prime Heparin Sodium (Porcine) 1,000 units 01/16/18 13:04 02/20/18 15:05 Heparin Inj OTHER 1,000 units WITH DIALYSIS PRN Administration Dwell Heparin to Fill Catheter Cefepime HCl 1,000 mg/ Sodium 100 mls @ 200 mls/hr 02/12/18 08:00 02/20/18 10 :31 Chloride IV.SIG 0 mls/hr Q24H [facility] Infusion Propofol 1,000 mg in 100 mls @ 2.82 mls/hr 02/17/18 08:28 02/18/18 09:00 Diprivan 1000 Mg/100 Ml Inj IV.CONT 0 mcg/kg/min TITRATE PRN 0 mls/hr Per Protocol Titration Protocol 5 MCG/KG/MIN Sodium Chloride 250 mls @ 15 mls/hr 02/20/18 09:00 02/20/18 10:31 Ns Inj IV.SIG 02/21/18 01:39 15 mls/hr ONCE PEDRO Administration Sodium Chloride 1,000 mls @ 0 mls/hr 01/16/18 13:04 01/24/18 19:04 Ns Inj OTHER 300 mls/hr .Q0M PRN Administration for prime and rinse back As Directed Insulin Detemir 5 unit 02/08/18 09:00 02/20/18 08:51 Levemir Inj SQ 5 unit BID PEDRO Administration Insulin Human Regular 0 units 02/14/18 12:00 02/20/18 11:48 Novolin R Correctional Sugar Inj SQ 5 units ACHS PEDRO Administration Protocol Lactulose 30 ml 01/15/18 21:01 02/01/18 09:43 Lactulose Liq PO 30 ml DAILY PRN Administration SEVERE CONSITIPATION Methylprednisolone Sodium Succinate 30 mg 02/17/18 09:30 02/20/18 10:31 Solumedrol Inj IV.PUSH 30 mg DAILY PEDRO Administration Midodrine 5 mg 02/17/18 12:00 02/20/18 11:50 Proamatine PO 5 mg TID@0700,1200,1700 PEDRO Administration Morphine Sulfate 2 mg 01/15/18 21:03 02/20/18 10:33 Morphine Inj IV.PUSH 2 mg Q4H PRN Administration BREAKTHROUGH PAIN Multivitamins 1 tab 01/16/18 09:00 02/20/18 08:51 Theragran PO 1 tab DAILY PEDRO Administration Nitroglycerin 0.4 mg 01/16/18 13:04 01/23/18 16:49 Nitrostat Sl SL 0.4 mg Q5M PRN Administration CHEST PAIN Ondansetron HCl 4 mg 01/16/18 13:30 01/28/18 17:20 Zofran Odt SL 4 mg Q6H PRN Administration NAUSEA OR VOMITING Oxycodone HCl 5 mg 01/23/18 17:59 02/19/18 01:47 Roxicodone PO 5 mg Q4H PRN Administration pain 3-10 Prochlorperazine Edisylate 5 mg 01/23/18 23:04 01/24/18 04:15 Compazine Inj IV.PUSH 5 mg Q4H PRN Administration NAUSEA OR VOMITING Senna/Docusate Sodium 1 tab 01/16/18 09:00 02/20/18 08:51 Yasmine-Colace PO 1 tab BID PEDRO Administration Sennosides 17.2 mg 01/15/18 21:01 01/31/18 07:21 Senokot PO 17.2 mg Q12H PRN Administration Moderate Constipation Sildenafil Citrate 30 mg 02/10/18 13:00 02/20/18 10:17 Revatio PO Not Given TID [facility] Sodium Chloride 2 ml 01/26/18 21:00 02/20/18 11:47 Ns Flush IV.FLUSH 2 ml BID PEDRO Administration Sodium Chloride 2 ml 01/26/18 13:44 02/05/18 08:39 Ns Flush IV.FLUSH 2 ml PRN PRN Administration FLUSH AFTER USING IV ACCESS Sodium Chloride 5 ml 01/16/18 13:04 01/19/18 20:09 Ns Flush IV.FLUSH 5 ml PRN PRN Administration flush each lumen during HD Temazepam 15 mg 01/15/18 21:01 02/19/18 01:46 Restoril PO 15 mg HS PRN Administration INSOMNIA Warfarin Sodium 2 mg 02/11/18 16:00 02/18/18 15:57 Coumadin PO Not Given DAILY@1600 PEDRO Objective Remarks: GENERAL: Elderly ill-appearing male patient, in no acute distress. SKIN: Pale, warm and dry. HEAD: Normocephalic. EYES: No scleral icterus. No injection or drainage. NECK: Supple, trachea midline. CARDIOVASCULAR: Regular rate and rhythm without murmurs. RESPIRATORY: Anterior breath sounds distant, equal bilaterally. No accessory muscle use.Currently with 100% high flow O2 via NC. GASTROINTESTINAL: Abdomen soft, non-tender, nondistended. EXTREMITIES: No cyanosis. 2+ edema. MUSCULOSKELETAL: Adequate muscle tone. NEUROLOGICAL: No obvious focal deficit. Awake, alert, and oriented x3. PSYCHIATRIC: Appropriate mood and affect; insight and judgment normal. Assessment/Plan - Plan Mr. Constantino is a pleasant 72-year-old male patient with a history of chest pain, atrial fibrillation with RVR, end-stage renal disease and hypoxia. Hematology was consulted for progressive thrombocytopenia. He was noted to have a decreased platelet count initially on 02/05/2018, status post heart catheterization on 02/02/2018, and then further decline after 02/13/2018. The patient has been on multiple medications including cephalosporins, heparin and vancomycin. To note he has had a bronchoscopy with pending cytology and culture. Plan: 1. Thrombocytopenia, platelets have improved today. Hit JOHN negative. BLE ultrasound revealed occlusive thrombosis in the right greater saphenous vein. This could explain thrombocytopenia. Heparin 8000 units subcu twice daily initiated. 2. Hemoglobin 8.2 today, ordered 1 unit PRBC. Transfuse for Hgb < 8.3, and platelets for platelets <20k. 3. Continue to monitor daily CBC. 4. Continue to monitor for bleeding. Patient still with hemoptysis, therefore we will need to monitor this closely while he is on heparin for DVT. 5. Continue supportive care. - Attending Statement The exam, history, and the medical decision-making described in the above note were completed with the assistance of the mid-level provider. I reviewed and agree with the findings presented. I attest that I had a [id number] encounter with the patient on the same day, and personally performed and documented my assessment and findings in the medical record. Pt seen and examined family at bedside. Discussed events from today. Noted family's wish for palliation- given dramatic change/decline in patient's clinical status. Explained Hgb improve, platelet increased. Suspect that the thrombocytopenia is due to the saphenous vein thrombosis. Recommend UFH for now. Unable to monitor or manage Coumadin since unable to interpret the INR. Considering hospice care center in [facility]. Emotional support provided. Hematology will sign off.
--- NOTE | 2018-02-20 18:02 | P.PNPL ---
Subjective Interval history: 72 YOWM with RF,ESRD, bilat infilt On high flow 02, Fi02 100% Sob No CP No Fever Physical Exam Vital signs: Vital Signs 02/19/18 18:00 02/19/18 20:00 02/19/18 20:45 Temperature 97.6 F Pulse Rate 80 80 Respiratory Rate 31 H Blood Pressure 96/50 L Pulse Oximetry 92 L 91 L 02/19/18 22:00 02/20/18 00:00 02/20/18 02:00 Temperature 97.8 F Pulse Rate 80 80 80 Respiratory Rate 22 Blood Pressure 102/57 L Pulse Oximetry 92 L 02/20/18 04:00 02/20/18 06:00 02/20/18 07:55 Temperature 97.8 F Pulse Rate 80 80 Respiratory Rate 25 H Blood Pressure 121/61 Pulse Oximetry 90 L 88 L 02/20/18 08:00 02/20/18 10:00 02/20/18 12:00 Temperature 97.6 F 98 F Pulse Rate 79 79 79 Respiratory Rate Blood Pressure 124/57 L 112/56 L Pulse Oximetry 92 L 02/20/18 14:48 02/20/18 14:53 02/20/18 15:54 Temperature 98.5 F 97.8 F 98 F Pulse Rate 79 79 79 Respiratory Rate 15 16 16 Blood Pressure 96/51 L 112/68 Pulse Oximetry 92 L 91 L 02/20/18 16:00 Temperature 98 F Pulse Rate 79 Respiratory Rate 18 Blood Pressure 105/58 L Pulse Oximetry Intake & Output 02/19/18 02/20/18 02/20/18 18:59 06:59 18:59 Intake Total 100 / 100 200 / 200 480 / 480 Output Total 3000 / 3000 Balance 100 / 100 200 / 200 -2520 / -2520 Weight 93.5 kg Intake: IV 100 / 100 Maxipime Inj 1,000 MG In NS Inj 100 / 100 100 ML @ 200 mls/hr IV.SIG Q24H [facility] Rx#:[id number] Oral 200 / 200 Other 80 / 80 Rbc As-3 Leukoreduced Unit 80 / 80 [id number] Intake (Blood Product) Amt 400 / 400 Rbc As-3 Leukoreduced Unit 400 / 400 [id number] Output: Hemodialysis Amount 3000 / 3000 Other: Date of Last Bowel Movement 02/19/18 02/19/1802/19/18 # Bowel Movements 1 1 GENERAL: Elderly Wm with sob SKIN: Warm and dry. HEAD: Normocephalic. EYES: No scleral icterus. No injection or drainage. NECK: Supple, trachea midline. No JVD or lymphadenopathy. CARDIOVASCULAR: Regular rate and rhythm without murmurs, gallops, or rubs. RESPIRATORY: Breath sounds equal bilaterally. No accessory muscle use. Scattered rales GASTROINTESTINAL: Abdomen soft, non-tender, nondistended. MUSCULOSKELETAL: No cyanosis, or edema. BACK: Nontender without obvious deformity. No CVA tenderness. Assessment and Plan - Plan IMPRESSION: Hypoxic RF No PE Interstitial lung disease COPD ESRD PLAN: high flow 02 HD IV Solumedrol SQ Heparin Midodrine 5 mg tid Coumadin 2 mg daily monitor INR
[2018-02-21] MEDS: Oral Hygiene Kit OROPHARYNG SCH ×4 (00:35→16:22)
[2018-02-21 05:31] LABS: Baso % (Auto) 0.3 % (0.0-2.0); Eos % (Auto) 0.1 % (0.0-4.0); Hematocrit 27.6 % (39.0-51.0); Lymph # (Auto) 0.3 th/mm3 (1.0-4.8); Lymph % (Auto) 9.3 % (9.0-44.0); Mean Corpuscular HGB Conc 32.7 % (32.0-36.0); Mean Corpuscular Hemoglobin 29.5 pg (27.0-34.0); Mean Corpuscular Volume 90.2 fL (80.0-100.0); Mean Platelet Volume 11.1 fL (7.0-11.0); Mono # (Auto) 0.1 th/mm3 (0.0-0.9); Mono % (Auto) 4.1 % (0.0-8.0); Neut # (Auto) 2.7 th/mm3 (1.8-7.7); Neut % (Auto) 86.2 % (16.0-70.0); Platelet Count 42 th/mm3 (150-450); Red Blood Count 3.06 mil/mm3 (4.50-5.90); Red Cell Distribution Width 20.5 % (11.6-17.2); White Blood Count 3.1 th/mm3 (4.0-11.0)
[2018-02-21 05:35] LABS: INR 1.5 Ratio; Prothrombin Time 14.7 sec (9.8-11.6)
[2018-02-21] MEDS: Clotrimazole 10 MG Troche BUCCAL SCH ×5 (05:55→22:16)
[2018-02-21 06:06] LABS: Alanine Aminotransferase 54 U/L (12-78); Albumin 2.5 g/dL (3.4-5.0); Alkaline Phosphatase 125 U/L (45-117); Anion Gap 10 meq/L (5-15); Aspartate Aminotransferase 50 U/L (15-37); Blood Urea Nitrogen 76 mg/dL (7-18); Calcium 8.4 mg/dL (8.5-10.1); Carbon Dioxide 29.8 meq/L (21.0-32.0); Chloride 98 meq/L (98-107); Glomerular Filtration Rate 11 mL/min (>89); Glucose,Random 128 mg/dL (74-106); Potassium 4.6 meq/L (3.5-5.1); Sodium 138 meq/L (136-145)
--- NOTE | 2018-02-21 07:21 | P.PNCC ---
Subjective Subjective Remarks/Hospital Course: This is a 72yM with history of ESRD on HD who was recently admitted last month for supraventricular tachycardia. It appears from the records that normal sinus rhythm was restored prior to discharge home. He re-presented to the hospital with atrial fibrillation with rapid ventricular response which has been poorly responsive to esmolol infusion. It is noted that there is still a shortage of diltiazem infusions, so none is available to place the patient on. Dr. Waters with cardiology was consulted, as was Dr. Weinberg. The patient has also had hypotension during this hospital stay with most blood pressure readings between 80-100 systolic. This morning, Bystolic was started and was given together with amiodarone 400mg and metoprolol 25mg po. Approximately 2 hours after this, his blood pressure dropped into the 60s and 70s systolic. I was consulted by Dr. Wilcox to evaluate and manage his hemodynamics in the setting of poorly-controlled atrial fibrillation and hypotension. The patient does complain of light-headedness and a little chest discomfort which is new since his blood pressure has dropped into the 70s. He denies any other complaints and tolerated breakfast this AM. ROS otherwise negative. troponins have been serially negative this admission. I performed bedside critical care echocardiography and compared this to images obtained from last hospital admission on 11/2017. Given the poorly controlled nature of the patient's rate, wall motion and accurate ejection fraction are difficult to assess with accuracy. It does appear that the patient has relatively preserved EF and at most only mildly depressed LVEF. Aortic valve is sclerotic but appears unchanged from prior echo which calculated the valve area at ~2cm. no pericardial effusion. IVC is dilated around 2cm without respiratory variation. heart rate on my evaluation is 121. 8/2: Critical care reconsulted by Dr. Weinberg for worsening respiratory failure. Patient dropped O2 sats to 84% on 6 L nasal cannula. When I evaluated patient he was resting in bed. Placed him on high flow nasal cannula 30 L/min 60% FiO2 with which his O2 sats came up to 90%. 01/30: Remains on high flow nasal cannula. CT chest negative for PE shows consolidation bilateral lower lobes and a loculated effusion on the right. Defer to pulmonary regarding further recommendations. 01/31: Remains on high flow nasal cannula. Being dialyzed currently. On 30 L/ min 60% FiO2. O2 sats 96%. Feels that he is breathing a little better. 02/01, 02/02: On high flow nasal cannula at 20 L/min 50% FiO2. Shortness of breath gradually improving. 02/03: On high flow nasal cannula 20 L/min 60% FiO2. Underwent mitral implantation and AV gilbert ablation yesterday by Dr. Weinberg. Sitting up in bed today. Appears comfortable not in any acute distress. 02/04 Patient 02/04 Patient is awake and alert on high flow oxygen 25L with 70% FIO2> Afebrile. For HD today 02/05 No events overnight. s/p HD yesterday with removal 5L. Afebrile. On 25L with FIO2 down to 50% 02/06 Patient remains on high flow oxygen with 25L 55%FIO2. Afebrile. 02/07 Patient s/p HD yesterday with removal 4.5L. Remains on high flow oxygen 25L with 50% FIO2. Afebrile. 02/08 Patient s/p HD yesterday with removal 3L. On high flow oxygen. Afebrile. 02/09 Patient remains on high flow oxygen 25L with 55% FIO2. Afebrile. For HD today 02/10 Patient is awake and alert. s/p HD yesterday with removal 3L. On 30L with 60% FIO2. Afebrile. 02/11 Patient is n 30L with 55% FIO2. Afebrile. 02/12: Patient remains on high flow nasal cannula. Very tired. Afebrile. Tolerating diet. 02/13: Hemodialysis is remained level. Unable to take fluid off due to hypotension. Remains on high flow nasal cannula 30 L 60% FiO2. Tolerating diet. Weak. 02/14: Afebrile. Remains on high flow nasal cannula at 35 L 60%. Plan for bronchoscopy with Dr. Moore on Friday. 02/15: Afebrile. Disconnect oxygen desaturation. Currently on high flow nasal cannula 40 L at 80%. Will recheck chest x-ray in a.m. Hemoptysis present but not as copious as before previously. 02/16: Worsening O2 requirements over the night, currently on FiO2 of 1 45 L/min high flow nasal cannula. Patient remains awake and conversant, still with some hemoptysis. Bronchoscopy scheduled for Friday. T-max of 98.5. 8/21: No events over the night. Patient remains on high flow nasal cannula at 100%. This morning patient underwent bronchoscopy without biopsy and postprocedure patient remained intubated. Results of bronchoscopy not known at this time. T-max of 99.1, urine output over the last 24 hours 1200 mL's. 02/18: No events over the night. Patient remains intubated and sedated. Significant improvement in O2 requirements, currently on 35% O2 and PEEP of 10. T-max of 98.9, urine output over the last 24 hours 1625 mL's. 02/19: Patient was successfully extubated yesterday afternoon and he did well postextubation. This morning he is on high flow nasal cannula, 25 L/min and 70 % with O2 sat at 100%. Patient seems tired, easily arousable, denies any complaints. Still with some hemoptysis but less. T-max of 99.9. He underwent hemodialysis yesterday. 02/20: Worsening O2 requirements over the night. Patient is currently on high flow nasal cannula at 30 L/min and 100% O2 with O2 sat in the low 90s. T-max of 98.2. Had hemodialysis yesterday. He is awake, looks tired, shortness of breath is unchanged, he says he coughs less. No other complaints. SUBJECTIVE: 02/21: No events over the night. Palliative care note reviewed, patient now DNR. O2 requirements remain very high, on high flow nasal cannula at 30 L/min in the 100% O2 with O2 sat in the mid 90s. He is awake, looks tired, still with some hemoptysis but improved per daughter. Denies any other complaints. T -max of 98.8. Started on heparin 8000 units twice daily by hematology for saphenous vein thrombosis. Received 1 unit PRBC yesterday. Objective Vital Signs / I&O: Vital Signs 02/20/18 07:55 02/20/18 08:00 02/20/18 10:00 Temperature 97.6 F Pulse Rate 79 79 Respiratory Rate Blood Pressure 124/57 L Pulse Oximetry 88 L 92 L 02/20/18 12:00 02/20/18 14:48 02/20/18 14:53 Temperature 98 F 98.5 F 97.8 F Pulse Rate 79 79 79 Respiratory Rate 15 16 Blood Pressure 112/56 L 96/51 L Pulse Oximetry 92 L 02/20/18 15:54 02/20/18 16:00 02/20/18 20:00 Temperature 98 F 98 F 98.8 F Pulse Rate 79 79 80 Respiratory Rate 16 18 21 Blood Pressure 112/68 105/58 L 104/51 L Pulse Oximetry 91 L 02/20/18 22:00 02/20/18 22:04 02/21/18 00:00 Temperature 98.7 F Pulse Rate 80 80 Respiratory Rate 16 19 Blood Pressure 90/57 L Pulse Oximetry 02/21/18 02:00 02/21/18 04:00 02/21/18 06:00 Temperature 98.5 F Pulse Rate 80 80 80 Respiratory Rate 14 Blood Pressure 105/57 L Pulse Oximetry 94 L 02/21/18 06:09 Temperature Pulse Rate Respiratory Rate Blood Pressure Pulse Oximetry 99 Intake & Output 02/20/18 02/21/18 02/21/18 18:59 06:59 18:59 Intake Total 880 / 880 250 / 250 Output Total 3000 / 3000 Balance -2120 / -2120 250 / 250 Weight 93.5 kg Intake: IV 250 / 250 NS Inj 250 ML @ 15 mls/hr IV. 250 / 250 SIG ONCE PEDRO Rx#:[id number] Oral 400 / 400 Other 80 / 80 Rbc As-3 Leukoreduced Unit 80 / 80 [id number] Intake (Blood Product) Amt 400 / 400 Rbc As-3 Leukoreduced Unit 400 / 400 [id number] Output: Hemodialysis Amount 3000 / 3000 Other: Date of Last Bowel Movement 02/19/18 02/20/18 # Bowel Movements 2 Result Diagrams: 02/21/18 03:44 02/21/18 03:44 Objective Remarks: GENERAL: Elderly gentleman, awake, tired, ill-appearing. SKIN: No rash, no cyanosis. HEENT: Pupils are equal and reactive, sclerae are anicteric. Neck is supple without rigidity. No neck vein distention. Moist mucous membranes, no thrush. CARDIOVASCULAR: Regular heart sounds. Systolic ejection murmur at apex 3/6. RESPIRATORY: Coarse breath sounds bilateral. No wheezes. Good air entry. GASTROINTESTINAL: Soft, non-tender, not distended. Bowel sounds present. MUSCULOSKELETAL: Warm and well-perfused. Trace bilateral lower extremity peripheral edema. Pulses are present. NEURO: Awake, alert and oriented. Moves all extremities. Assessment and Plan - Assessment and Plan Plan: Active Problems: Acute respiratory failure -remains on high flow nasal cannula at 30 L/min and FiO2 of 1. He was extubated on 02/18 CAD CHF Right greater saphenous vein thrombosis Possible COPD exacerbation -improved Klebsiella pneumonia -remains afebrile Possible pulmonary renal syndrome Atrial Fibrillation with rapid ventricular response -rate better controlled End-stage renal disease requiring hemodialysis Hyperkalemia Persistent hypotension secondary to poor cardiac output Thrombocytopenia -improved Normocytic anemia Hyperlipidemia Neuro: Follow neuro status. Pain medications as needed. Continue buspirone 5 mg daily CV: Status post cardiac cath. Being followed by Dr. Weinberg. S/p ablation and micra placement 02/02/18 due to failure of medical management for rate control Echo showed EF 60-65%, mod- severe pulm HTN 60-70mmHg On Lipitor 80mg qhs Pulmo: Continue high flow nasal cannula at 30 L/min. FiO2 at 1. Patient now DNR Bronchodilators Continue methylprednisolone succinate to 30mg daily, tapered on 02/17 On budesonide/formoterol 80/4.5 2 puffs twice daily. On sildenafil 30mg TID for pulm HTN Post bronchoscopy on 02/17 GI/liver: On cardiac, renal and diabetic diet Renal/: Monitor renal function, I/O's, avoid nephrotoxins Renal is following. HD per nephrology ID: s/p Zosyn (01/24- 02/07) 02/09 Sputum: Klebsiella pneumonia. Continue cefepime 1g daily day 9 Monitor for signs of infections ( Fever, WBC) BAL cultures are without growth to date Endocrine: SSI (high scale) for glycemic control, insulin detemir 5u BID Heme: Monitor CBC, Coags- Received 1 unit PRBC on 02/20 Started on heparin 8000 units subcut twice daily by hematology Receiving heparin with dialysis Followed by Hematology Prophylaxis: Famotidine/SCDs. Level 2 follow-up Patient followed by palliative care, now DNR. Family considering hospice. Case discussed in detail with daughter present at bedside.
[2018-02-21 07:53] LABS: Acanthocytes Occ; Burr Cells 1+; Ovalocytes 1+
[2018-02-21] MEDS: Heparin - SQ 10,000 UNITS/ML Vial SQ SCH ×2 (08:52→20:46)
[2018-02-21] MEDS: Senna/Docusate Sodium 8.6/50 MG Tablet PO SCH ×2 (08:52→20:46)
[2018-02-21] MEDS: Calcium Acetate 667 MG Capsule PO SCH ×3 (08:53→17:31)
[2018-02-21] MEDS: MethylPREDNISolone Sod Succinate Inj 40 MG/ML Vial IV.PUSH SCH (08:53)
[2018-02-21] MEDS: Budesonide-Formoterol 160/4.5 MCG 6 GM Inhaler INH SCH ×2 (08:54→20:48)
[2018-02-21] MEDS: Chlorhexidine 0.12% Oral Kit 15 ML UDC OROPHARYNG SCH ×2 (09:08→20:47)
[2018-02-21] MEDS: Insulin Detemir Inj 1,000 UNIT/10 ML Vial SQ SCH ×2 (09:27→20:47)
[2018-02-21] MEDS: Insulin NovoLIN Regular Correctional Sugar Inj SQ SCH ×4 (09:28→20:47)
--- NOTE | 2018-02-21 09:43 | P.PNCA ---
Subjective Interval history: alert in nad, eating breakfast Physical Exam Vital signs: Vital Signs 02/20/18 10:00 02/20/18 12:00 02/20/18 14:48 Temperature 98 F 98.5 F Pulse Rate 79 79 79 Respiratory Rate 15 Blood Pressure 112/56 L Pulse Oximetry 02/20/18 14:53 02/20/18 15:54 02/20/18 16:00 Temperature 97.8 F 98 F 98 F Pulse Rate 79 79 79 Respiratory Rate 16 16 18 Blood Pressure 96/51 L 112/68 105/58 L Pulse Oximetry 92 L 91 L 02/20/18 20:00 02/20/18 22:00 02/20/18 22:04 Temperature 98.8 F Pulse Rate 80 80 Respiratory Rate 21 16 Blood Pressure 104/51 L Pulse Oximetry 02/21/18 00:00 02/21/18 02:00 02/21/18 04:00 Temperature 98.7 F 98.5 F Pulse Rate 80 80 80 Respiratory Rate 19 14 Blood Pressure 90/57 L 105/57 L Pulse Oximetry 94 L 02/21/18 06:00 02/21/18 06:09 02/21/18 07:29 Temperature Pulse Rate 80 Respiratory Rate Blood Pressure Pulse Oximetry 99 98 Intake & Output 02/20/18 02/21/18 02/21/18 18:59 06:59 18:59 Intake Total 980 / 980 250 / 250 Output Total 3000 / 3000 Balance -2019 / 250 / 250 Weight 93.5 kg Intake: IV 100 / 100 250 / 250 Maxipime Inj 1,000 MG In NS Inj 100 / 100 100 ML @ 200 mls/hr IV.SIG Q24H PEDRO Rx#:[id number] NS Inj 250 ML @ 15 mls/hr IV. 250 / 250 SIG ONCE PEDRO Rx#:[id number] Oral 400 / 400 Other 80 / 80 Rbc As-3 Leukoreduced Unit 80 / 80 [id number] Intake (Blood Product) Amt 400 / 400 Rbc As-3 Leukoreduced Unit 400 / 400 [id number] Output: Hemodialysis Amount 3000 / 3000 Other: Date of Last Bowel Movement 02/19/18 02/20/18 # Bowel Movements 2 Assessment and Plan - Assessment (1) Atrial fibrillation with rapid ventricular response Code(s): I48.91 - Unspecified atrial fibrillation Status: Acute (2) CHF (congestive heart failure) Code(s): I50.9 - Heart failure, unspecified Status: Acute (3) Chronic kidney disease with end stage renal failure on dialysis Code(s): N18.6 - End stage renal disease; Z99.2 - Dependence on renal dialysis Status: Acute (4) Atrial fibrillation with RVR Code(s): I48.91 - Unspecified atrial fibrillation Status: Acute (5) ESRD (end stage renal disease) on dialysis Code(s): N18.6 - End stage renal disease; Z99.2 - Dependence on renal dialysis Status: Acute - Plan 1.) Afib with rvr - s/p ablation and micra placement 02/02/18 due to failure of medical management for rate control, d/w patient, inr therapeutic, hgb stable, rate controlled, inr=2.1 and hgb = 9.3 02/18/18, tracheobronchitis with heme on bronchoscopy 02/17/18 2.) CAD - continue, lipitor, has hemoptyis which is persistent, hold coumadin due to hgb=8.2 02/18/18 and thrombocytopenia, f/u inr and cbc in am, hematology following 3,)Right saphenous vein thrombosis but no dvt, off ac due to anemia and thrombocytopenia, hematology following, scds in place, d/w nurse, patient and family at the bedside; patient considering hospice (2) CHF (congestive heart failure) Qualifiers: Qualified Code(s): I50.9 - Heart failure, unspecified
--- NOTE | 2018-02-21 09:49 | P.PNPL ---
Subjective Interval history: Patient is on 30L high flow oxygen with 100%FIO2 Hospice service consulted. Physical Exam Vital signs: Vital Signs 02/20/18 10:00 02/20/18 12:00 02/20/18 14:48 Temperature 98 F 98.5 F Pulse Rate 79 79 79 Respiratory Rate 15 Blood Pressure 112/56 L Pulse Oximetry 02/20/18 14:53 02/20/18 15:54 02/20/18 16:00 Temperature 97.8 F 98 F 98 F Pulse Rate 79 79 79 Respiratory Rate 16 16 18 Blood Pressure 96/51 L 112/68 105/58 L Pulse Oximetry 92 L 91 L 02/20/18 20:00 02/20/18 22:00 02/20/18 22:04 Temperature 98.8 F Pulse Rate 80 80 Respiratory Rate 21 16 Blood Pressure 104/51 L Pulse Oximetry 02/21/18 00:00 02/21/18 02:00 02/21/18 04:00 Temperature 98.7 F 98.5 F Pulse Rate 80 80 80 Respiratory Rate 19 14 Blood Pressure 90/57 L 105/57 L Pulse Oximetry 94 L 02/21/18 06:00 02/21/18 06:09 02/21/18 07:29 Temperature Pulse Rate 80 Respiratory Rate Blood Pressure Pulse Oximetry 99 98 Intake & Output 02/20/18 02/21/18 02/21/18 18:59 06:59 18:59 Intake Total 980 / 980 250 / 250 Output Total 3000 / 3000 Balance -2019 / 250 / 250 Weight 93.5 kg Intake: IV 100 / 100 250 / 250 Maxipime Inj 1,000 MG In NS Inj 100 / 100 100 ML @ 200 mls/hr IV.SIG Q24H PEDRO Rx#:[id number] NS Inj 250 ML @ 15 mls/hr IV. 250 / 250 SIG ONCE PEDRO Rx#:[id number] Oral 400 / 400 Other 80 / 80 Rbc As-3 Leukoreduced Unit 80 / 80 [id number] Intake (Blood Product) Amt 400 / 400 Rbc As-3 Leukoreduced Unit 400 / 400 [id number] Output: Hemodialysis Amount 3000 / 3000 Other: Date of Last Bowel Movement 02/19/18 02/20/18 # Bowel Movements 2 - Constitutional mild distress - Routine HEENT Exam Head: Present: normocephalic, atraumatic Eye: Present: EOMI, PERRL ENT: Present: mucous membranes moist - Routine Neck Exam Present: supple, full ROM, trachea midline - Routine Respiratory Exam Present: crackles, diminished air movement - Routine Cardiovascular Exam Present: RRR, S1, S2 - Routine Abdominal Exam Present: soft, normoactive bowel sounds - Routine Extremities Exam Present: edema, pulses intact - Routine Skin Exam Present: intact - Routine Neurological Exam Present: alert, oriented X3, CN II-XII intact Assessment and Plan - Plan 1. Acute hypoxemic respiratory insufficiency, 2. ESRD on hemodialysis. 3. CHF, diastolic dysfunction. 4. Atrial fibrillation. 5. Hypertension. 6. History of diabetes mellitus type 2. 7. Anemia. 8. Hx tobacco abuse, ? COPD 9 Klebsiella pneumonia 10 Pulmonary HTN Plan Wean down oxygen as tolerated and maintain sats >92%. Bronchodilators( DuoNeb, Symbicort) BiPAP p.r.n. for respiratory distress. Solumederol 30mg IV daily CXR 02/20: Interstitial changes- unchanged s/p bronch with BAL 02/[address] Moore Continue abx (Cefepime) Monitor for signs of infections(fever and WBC) Continue Revatio 30mg PO TID for pulm HTN HD per renal s/p HD yesterday Doppler US LE: No evidence of DVT, occlusive thrombus in the greater saphenous vein on the right side. On Coumadin: INR 1.5 today from 2.0 02/20 Hospice service consulted. Continue treatment plan
--- NOTE | 2018-02-21 11:29 | P.PNONC ---
Subjective Interval history: Afebrile Patient still having blood-tinged sputum Denies any josé luis bleeding Feels somewhat better after getting dialysis yesterday No other acute complaints Objective Vital Signs/Intake & Output: Vital Signs 02/20/18 12:00 02/20/18 14:48 02/20/18 14:53 Temperature 98 F 98.5 F 97.8 F Pulse Rate 79 79 79 Respiratory Rate 15 16 Blood Pressure 112/56 L 96/51 L Pulse Oximetry 92 L 02/20/18 15:54 02/20/18 16:00 02/20/18 20:00 Temperature 98 F 98 F 98.8 F Pulse Rate 79 79 80 Respiratory Rate 16 18 21 Blood Pressure 112/68 105/58 L 104/51 L Pulse Oximetry 91 L 02/20/18 22:00 02/20/18 22:04 02/21/18 00:00 Temperature 98.7 F Pulse Rate 80 80 Respiratory Rate 16 19 Blood Pressure 90/57 L Pulse Oximetry 02/21/18 02:00 02/21/18 04:00 02/21/18 06:00 Temperature 98.5 F Pulse Rate 80 80 80 Respiratory Rate 14 Blood Pressure 105/57 L Pulse Oximetry 94 L 02/21/18 06:09 02/21/18 07:29 02/21/18 08:00 Temperature 98.6 F Pulse Rate 80 Respiratory Rate 11 L Blood Pressure 94/50 L Pulse Oximetry 99 98 98 02/21/18 09:00 02/21/18 10:00 02/21/18 11:00 Temperature Pulse Rate 80 80 80 Respiratory Rate 19 11 L 18 Blood Pressure 102/52 L 105/53 L Pulse Oximetry 92 L 92 L Intake & Output 02/20/18 02/21/18 02/21/18 18:59 06:59 18:59 Intake Total 980 / 980 250 / 250 100 / 100 Output Total 3000 / 3000 Balance -2019 / -2019 250 / 250 100 / 100 Weight 206 lb 2.115 oz Intake: IV 100 / 100 250 / 250 100 / 100 Maxipime Inj 1,000 MG In NS Inj 100 / 100 100 / 100 100 ML @ 200 mls/hr IV.SIG Q24H EDGAR Rx#:[id number] NS Inj 250 ML @ 15 mls/hr IV. 250 / 250 SIG ONCE EDGAR Rx#:[id number] Oral 400 / 400 Other 80 / 80 Rbc As-3 Leukoreduced Unit 80 / 80 [id number] Intake (Blood Product) Amt 400 / 400 Rbc As-3 Leukoreduced Unit 400 / 400 [id number] Output: Hemodialysis Amount 3000 / 3000 Other: Date of Last Bowel Movement 02/19/18 02/20/18 02/19/18 # Bowel Movements 2 Result Diagrams: 02/21/18 03:44 02/21/18 03:44 Laboratory Results: Laboratory Results - last 24 hr 02/20/18 02/20/18 02/20/18 06:39 11:02 17:09 WBC RBC Hgb Hct MCV MCH MCHC RDW Plt Count MPV Prelim Diff (Auto) Neut % (Auto) Lymph % (Auto) Casey % (Auto) Eos % (Auto) Baso % (Auto) Neut # (Auto) Lymph # (Auto) Casey # (Auto) Eos # (Auto) Baso # (Auto) WBC Differential Diff Scan Differential Comment Ovalocytes [place] Cells Acanthocytes (Spur) PT INR PT Mix Interpretation PTT Mix Interpretation Sodium Potassium Chloride Carbon Dioxide Anion Gap BUN Creatinine Estimated GFR POC Glucose 142 H Random Glucose Calcium Total Bilirubin AST ALT Alkaline Phosphatase Total Protein Albumin Blood Type A Positive Antibody Screen Negative MTS Gel Crossmatch See Detail 02/20/18 02/21/18 02/21/18 21:14 03:44 03:44 WBC 3.1 L RBC 3.06 L Hgb 9.0 L Hct 27.6 L MCV 90.2 MCH 29.5 MCHC 32.7 RDW 20.5 H Plt Count 42 L D MPV 11.1 H Prelim Diff (Auto) Slide review pending Neut % (Auto) 86.2 H Lymph % (Auto) 9.3 Casey % (Auto) 4.1 Eos % (Auto) 0.1 Baso % (Auto) 0.3 Neut # (Auto) 2.7 Lymph # (Auto) 0.3 L Casey # (Auto) 0.1 Eos # (Auto) 0.0 Baso # (Auto) 0.0 WBC Differential . Diff Scan Auto diff confirmed Differential Comment . Ovalocytes 1+ H [place] Cells 1+ H Acanthocytes (Spur) Occ H PT 14.7 H INR 1.5 PT Mix Interpretation PTT Mix Interpretation Sodium Potassium Chloride Carbon Dioxide Anion Gap BUN Creatinine Estimated GFR POC Glucose 281 H Random Glucose Calcium Total Bilirubin AST ALT Alkaline Phosphatase Total Protein Albumin Blood Type Antibody Screen MTS Gel Crossmatch 02/21/18 02/21/18 03:44 08:18 WBC RBC Hgb Hct MCV MCH MCHC RDW Plt Count MPV Prelim Diff (Auto) Neut % (Auto) Lymph % (Auto) Casey % (Auto) Eos % (Auto) Baso % (Auto) Neut # (Auto) Lymph # (Auto) Casey # (Auto) Eos # (Auto) Baso # (Auto) WBC Differential Diff Scan Differential Comment Ovalocytes Ruth Cells Acanthocytes (Spur) PT INR PT Mix Interpretation PTT Mix Interpretation Sodium 138 Potassium 4.6 Chloride 98 Carbon Dioxide 29.8 Anion Gap 10 BUN 76 H Creatinine 5.33 H Estimated GFR 11 L POC Glucose 182 H Random Glucose 128 H Calcium 8.4 L Total Bilirubin 1.5 H AST 50 H ALT 54 Alkaline Phosphatase 125 H Total Protein 6.0 L Albumin 2.5 L Blood Type Antibody Screen MTS Gel Crossmatch Culture Results: Microbiology 02/17/18 07:55 Gram Stain - Final Bronchial - Bronchial Bronchial Culture - Final Rare growth normal respiratory marielos 02/17/18 07:55 Acid Fast Bacilli Smear - Final Bronchial Washings - Bronchial No acid fast bacilli seen Medications: Active Medications Generic Name Dose Route Start Last Admin Trade Name Freq PRN Reason Stop Dose Admin Albuterol 1 ampul 02/08/18 13:45 02/19/18 09:45 Duoneb Neb (Prn) NEB 1 ampul Q2HR NEB PRN Administration DYSPNEA Albuterol 1 ampul 02/21/18 12:00 02/21/18 10:57 Duoneb Neb (Edgar) NEB 1 ampul Q4HR NEB EDGAR Administration Atorvastatin Calcium 80 mg 01/16/18 15:00 02/21/18 08:52 Lipitor PO 80 mg DAILY EDGAR Administration Bisacodyl 10 mg 01/15/18 21:01 02/01/18 03:41 Dulcolax Supp RECTAL 10 mg DAILY PRN Administration SEVERE CONSITIPATION Budesonide/Formoterol Fumarate 2 puff 01/16/18 09:00 02/21/18 08:54 Symbicort 160/4.5 Mcg Inh INH 2 puff BID EDGAR Administration Buspirone HCl 5 mg 01/16/18 09:00 02/21/18 08:52 Buspar PO 5 mg DAILY EDGAR Administration Calcium Acetate 667 mg 02/13/18 18:00 02/21/18 08:53 Phoslo PO 667 mg TID EDGAR Administration Chlorhexidine Gluconate 15 ml 02/17/18 20:00 02/21/18 09:08 Peridex 0.12% Oral Kit OROPHARYNG Not Given BID@0800,1999 EDGAR Clotrimazole 10 mg 02/12/18 14:00 02/21/18 09:26 Mycelex Corry BUCCAL 02/26/18 13:59 10 mg 5 TIMES A DAY EDGAR Administration Diphenhydramine HCl 25 mg 01/16/18 13:04 02/20/18 13:32 Benadryl PO 25 mg UNSCH PRN Administration SEE LABEL COMMENTS Epoetin Yovanny 10,000 unit 01/19/18 10:00 02/20/18 15:06 Epogen Inj IV.PUSH 10,000 unit MOWEFR EDGAR Administration Gentamicin Sulfate 20 mg 01/16/18 13:04 02/20/18 15:06 Gentamicin Inj OTHER 20 mg WITH DIALYSIS PRN Administration Dwell Gentamycin Lock Heparin Sodium (Porcine) 8,000 units 02/20/18 12:00 02/21/18 08:52 Heparin Inj SQ 8,000 units Q12HR EDGAR Administration Heparin Sodium (Porcine) 8,000 units 01/16/18 13:04 01/31/18 09:28 Heparin Inj OTHER 8,000 units WITH DIALYSIS PRN Administration for machine prime Heparin Sodium (Porcine) 1,000 units 01/16/18 13:04 02/20/18 15:05 Heparin Inj OTHER 1,000 units WITH DIALYSIS PRN Administration Dwell Heparin to Fill Catheter Cefepime HCl 1,000 mg/ Sodium 100 mls @ 200 mls/hr 02/12/18 08:00 02/21/18 09 :20 Chloride IV.SIG Infused Q24H EDGAR Infusion Propofol 1,000 mg in 100 mls @ 2.82 mls/hr 02/17/18 08:28 02/18/18 09:00 Diprivan 1000 Mg/100 Ml Inj IV.CONT 0 mcg/kg/min TITRATE PRN 0 mls/hr Per Protocol Titration Protocol 5 MCG/KG/MIN Sodium Chloride 1,000 mls @ 0 mls/hr 01/16/18 13:04 01/24/18 19:04 Ns Inj OTHER 300 mls/hr .Q0M PRN Administration for prime and rinse back As Directed Insulin Detemir 5 unit 02/08/18 09:00 02/21/18 09:27 Levemir Inj SQ 5 unit BID EDGAR Administration Insulin Human Regular 0 units 02/14/18 12:00 02/21/18 09:28 Novolin R Correctional Sugar Inj SQ 5 units ACHS EDGAR Administration Protocol Lactulose 30 ml 01/15/18 21:01 02/01/18 09:43 Lactulose Liq PO 30 ml DAILY PRN Administration SEVERE CONSITIPATION Methylprednisolone Sodium Succinate 30 mg 02/17/18 09:30 02/21/18 08:53 Solumedrol Inj IV.PUSH 30 mg DAILY EDGAR Administration Midodrine 5 mg 02/17/18 12:00 02/21/18 08:52 Proamatine PO 5 mg TID@0700,1200,1700 EDGAR Administration Morphine Sulfate 2 mg 01/15/18 21:03 02/20/18 21:57 Morphine Inj IV.PUSH 2 mg Q4H PRN Administration BREAKTHROUGH PAIN Multivitamins 1 tab 01/16/18 09:00 02/21/18 08:52 Theragran PO 1 tab DAILY EDGAR Administration Nitroglycerin 0.4 mg 01/16/18 13:04 01/23/18 16:49 Nitrostat Sl SL 0.4 mg Q5M PRN Administration CHEST PAIN Ondansetron HCl 4 mg 01/16/18 13:30 01/28/18 17:20 Zofran Odt SL 4 mg Q6H PRN Administration NAUSEA OR VOMITING Oxycodone HCl 5 mg 01/23/18 17:59 02/21/18 09:26 Roxicodone PO 5 mg Q4H PRN Administration pain 3-10 Prochlorperazine Edisylate 5 mg 01/23/18 23:04 01/24/18 04:15 Compazine Inj IV.PUSH 5 mg Q4H PRN Administration NAUSEA OR VOMITING Senna/Docusate Sodium 1 tab 01/16/18 09:00 02/21/18 08:52 Yasmine-Colace PO 1 tab BID EDGAR Administration Sennosides 17.2 mg 01/15/18 21:01 02/21/18 09:27 Senokot PO 17.2 mg Q12H PRN Administration Moderate Constipation Sildenafil Citrate 30 mg 02/10/18 13:00 02/21/18 09:28 Revatio PO 30 mg TID EDGAR Administration Sodium Chloride 2 ml 01/26/18 21:00 02/21/18 08:53 Ns Flush IV.FLUSH 2 ml BID EDGAR Administration Sodium Chloride 2 ml 01/26/18 13:44 02/05/18 08:39 Ns Flush IV.FLUSH 2 ml PRN PRN Administration FLUSH AFTER USING IV ACCESS Sodium Chloride 5 ml 01/16/18 13:04 01/19/18 20:09 Ns Flush IV.FLUSH 5 ml PRN PRN Administration flush each lumen during HD Temazepam 15 mg 01/15/18 21:01 02/19/18 01:46 Restoril PO 15 mg HS PRN Administration INSOMNIA Warfarin Sodium 2 mg 02/11/18 16:00 02/18/18 15:57 Coumadin PO Not Given DAILY@1600 EDGAR Objective Remarks: GENERAL: Frail appearing elderly male resting in bed currently getting breathing treatment. SKIN: Warm and dry. No oozing from lines HEAD: Normocephalic. Hard of hearing EYES: No scleral icterus. No injection or drainage. NECK: Supple, trachea midline. No JVD or lymphadenopathy. CARDIOVASCULAR: Paced rhythm. No murmur auscultated. RESPIRATORY: Few scattered wheezes anteriorly. Breathing unlabored at rest. GASTROINTESTINAL: Abdomen soft, non-tender, nondistended. EXTREMITIES: Generalized lower extremity edema MUSCULOSKELETAL: Weakness NEUROLOGICAL: Awake and alert. Follows commands. Assessment/Plan - Plan Mr. Constantino is a pleasant 72-year-old male patient with a history of chest pain, atrial fibrillation with RVR, end-stage renal disease and hypoxia. Hematology was consulted for progressive thrombocytopenia. He was noted to have a decreased platelet count initially on 02/05/2018, status post heart catheterization on 02/02/2018, and then further decline after 02/13/2018. The patient has been on multiple medications including cephalosporins, heparin and vancomycin. To note he has had a bronchoscopy on 02/17 that was negative for malignant cells Plan: 1. Thrombocytopenia, platelets have improved today. Hit JOHN negative. BLE ultrasound revealed occlusive thrombosis in the right greater saphenous vein. Patient receiving heparin subcu 8000 units twice daily. Platelet count down to 42,000 today. No bleeding. Peripheral smear negative for schistocytes. 2. Monitor CBC, monitor hemoptysis while on heparin. - Attending Statement The exam, history, and the medical decision-making described in the above note were completed with the assistance of the mid-level provider. I reviewed and agree with the findings presented. I attest that I had a [id number] encounter with the patient on the same day, and personally performed and documented my assessment and findings in the medical record. Patient is feeling better. Still has some blood in the sputum when he is suction. Denies any chest pain. No significant lower extremity edema. He will continue subcutaneous heparin. Monitor platelet and sign of bleeding closely.
--- NOTE | 2018-02-21 12:30 | P.PNNP ---
Subjective Interval history: Patient had dialysis yesterday shortness of breath did improve on high flow nasal cannula O2 Physical Exam Vital signs: Vital Signs 02/20/18 14:48 02/20/18 14:53 02/20/18 15:54 Temperature 98.5 F 97.8 F 98 F Pulse Rate 79 79 79 Respiratory Rate 15 16 16 Blood Pressure 96/51 L 112/68 Pulse Oximetry 92 L 91 L 02/20/18 16:00 02/20/18 20:00 02/20/18 22:00 Temperature 98 F 98.8 F Pulse Rate 79 80 80 Respiratory Rate 18 21 Blood Pressure 105/58 L 104/51 L Pulse Oximetry 02/20/18 22:04 02/21/18 00:00 02/21/18 02:00 Temperature 98.7 F Pulse Rate 80 80 Respiratory Rate 16 19 Blood Pressure 90/57 L Pulse Oximetry 02/21/18 04:00 02/21/18 06:00 02/21/18 06:09 Temperature 98.5 F Pulse Rate 80 80 Respiratory Rate 14 Blood Pressure 105/57 L Pulse Oximetry 94 L 99 02/21/18 07:29 02/21/18 08:00 02/21/18 09:00 Temperature 98.6 F Pulse Rate 80 80 Respiratory Rate 11 L 19 Blood Pressure 94/50 L 102/52 L Pulse Oximetry 98 98 92 L 02/21/18 10:00 02/21/18 11:00 Temperature Pulse Rate 80 80 Respiratory Rate 11 L 18 Blood Pressure 105/53 L Pulse Oximetry 92 L Intake & Output 02/20/18 02/21/18 02/21/18 18:59 06:59 18:59 Intake Total 980 / 980 250 / 250 100 / 100 Output Total 3000 / 3000 Balance -2020 / -2020 250 / 250 100 / 100 Weight 93.5 kg Intake: IV 100 / 100 250 / 250 100 / 100 Maxipime Inj 1,000 MG In NS Inj 100 / 100 100 / 100 100 ML @ 200 mls/hr IV.SIG Q24H PEDRO Rx#:[id number] NS Inj 250 ML @ 15 mls/hr IV. 250 / 250 SIG ONCE PEDRO Rx#:[id number] Oral 400 / 400 Other 80 / 80 Rbc As-3 Leukoreduced Unit 80 / 80 [id number] Intake (Blood Product) Amt 400 / 400 Rbc As-3 Leukoreduced Unit 400 / 400 [id number] Output: Hemodialysis Amount 3000 / 3000 Other: Date of Last Bowel Movement 02/19/18 02/20/18 02/19/18 # Bowel Movements 2 - Constitutional no acute distress - Routine HEENT Exam Head: Present: normocephalic Eye: Present: EOMI - Routine Respiratory Exam Present: decreased breath sounds - Routine Cardiovascular Exam Present: RRR - Routine Abdominal Exam Present: soft, normoactive bowel sounds - Routine Extremities Exam Present: pulses intact Assessment and Plan - Assessment (1) ESRD (end stage renal disease) on dialysis Code(s): N18.6 - End stage renal disease; Z99.2 - Dependence on renal dialysis Status: Acute (2) CHF (congestive heart failure) Code(s): I50.9 - Heart failure, unspecified Status: Acute Qualifiers: Heart failure type: unspecified Heart failure chronicity: unspecified Qualified Code(s): I50.9 - Heart failure, unspecified (3) Atrial fibrillation with RVR Code(s): I48.91 - Unspecified atrial fibrillation Status: Acute - Plan Patient has dialysis on Friday, Friday and Friday, last dialysis for 3 L He remains on O2 Continue to monitor in ICU Next dialysis is on Friday
[2018-02-21] MEDS: Morphine Inj 4 MG/ML Vial IV.PUSH PRN (20:44)
[2018-02-22] MEDS: Oral Hygiene Kit OROPHARYNG SCH ×4 (02:45→15:30)
--- NOTE | 2018-02-22 03:59 | XR ---
EXAM DATE: 02/22/2018 3:52 AM EDT AGE/SEX: 72 years / Male INDICATIONS: Shortness of breath, possible pulmonary disease. CLINICAL DATA: This is the patient's subsequent encounter. Patient reports that signs and symptoms h ave been present for 1 month and indicates a pain score of 0/10. MEDICAL/SURGICAL HISTORY: Congestive heart failure. Hypertension. Diabetes mellitus type II. Renal disease. . A-V fistula. COMPARISON: [facility], CHEST 1V SINGLE AP, 02/20/2018. . FINDINGS: Coarse interstitial infiltrate in both hemithoraces is stable. Bibasilar atelectatic changes, right g reater than left. Right IJ dialysis type catheter is stable in position. Heart size is borderline pro minent. Loop recorder projects over the heart shadow. CONCLUSION: Stable appearance of the chest with coarse bilateral interstitial infiltrates and bibasilar atelectas is Electronically signed by: Russel Guy MD 02/22/2018 3:57 AM EDT
[2018-02-22 05:35] LABS: Baso % (Auto) 0.4 % (0.0-2.0); Eos % (Auto) 0.5 % (0.0-4.0); Hematocrit 28.3 % (39.0-51.0); Hemoglobin 9.2 gm/dL (13.0-17.0); Lymph # (Auto) 0.5 th/mm3 (1.0-4.8); Lymph % (Auto) 13.9 % (9.0-44.0); Mean Corpuscular HGB Conc 32.6 % (32.0-36.0); Mean Corpuscular Hemoglobin 29.4 pg (27.0-34.0); Mean Corpuscular Volume 90.1 fL (80.0-100.0); Mean Platelet Volume 10.8 fL (7.0-11.0); Mono # (Auto) 0.2 th/mm3 (0.0-0.9); Mono % (Auto) 5.2 % (0.0-8.0); Neut # (Auto) 3.1 th/mm3 (1.8-7.7); Platelet Count 51 th/mm3 (150-450); Red Blood Count 3.14 mil/mm3 (4.50-5.90); Red Cell Distribution Width 20.6 % (11.6-17.2); White Blood Count 3.9 th/mm3 (4.0-11.0)
[2018-02-22 05:42] LABS: INR 1.4 Ratio; Prothrombin Time 14.1 sec (9.8-11.6)
[2018-02-22] MEDS: Clotrimazole 10 MG Troche BUCCAL SCH ×4 (06:02→17:43)
[2018-02-22 06:35] LABS: Alanine Aminotransferase 61 U/L (12-78); Albumin 2.6 g/dL (3.4-5.0); Alkaline Phosphatase 128 U/L (45-117); Anion Gap 12 meq/L (5-15); Aspartate Aminotransferase 47 U/L (15-37); Blood Urea Nitrogen 96 mg/dL (7-18); Calcium 8.4 mg/dL (8.5-10.1); Carbon Dioxide 27.7 meq/L (21.0-32.0); Chloride 97 meq/L (98-107); Glomerular Filtration Rate 8 mL/min (>89); Glucose,Random 86 mg/dL (74-106); Sodium 137 meq/L (136-145); Total Protein 6.2 g/dL (6.4-8.2)
[2018-02-22 07:33] VITALS: PULSE 80
--- NOTE | 2018-02-22 07:40 | P.PNCA ---
Subjective Interval history: alert, lethargic, in nad Physical Exam Vital signs: Vital Signs 02/21/18 08:00 02/21/18 09:00 02/21/18 10:00 Temperature 98.6 F Pulse Rate 80 80 80 Respiratory Rate 11 L 19 11 L Blood Pressure 94/50 L 102/52 L 105/53 L Pulse Oximetry 98 92 L 92 L 02/21/18 11:00 02/21/18 12:00 02/21/18 13:00 Temperature 99.6 F 98.3 F Pulse Rate 80 80 80 Respiratory Rate 18 16 24 Blood Pressure 99/54 L 95/54 L Pulse Oximetry 93 L 87 L 02/21/18 14:00 02/21/18 15:26 02/21/18 16:00 Temperature 98.3 F Pulse Rate 80 80 79 Respiratory Rate 27 H 21 Blood Pressure 127/58 L Pulse Oximetry 86 L 02/21/18 17:00 02/21/18 18:00 02/21/18 19:00 Temperature Pulse Rate 79 79 79 Respiratory Rate 21 23 19 Blood Pressure 103/50 L 104/55 L 106/55 L Pulse Oximetry 92 L 92 L 89 L 02/21/18 19:34 02/21/18 20:00 02/21/18 21:00 Temperature 98.8 F Pulse Rate 79 79 79 Respiratory Rate 18 18 31 H Blood Pressure 107/54 L 119/58 L Pulse Oximetry 92 L 92 L 87 L 02/21/18 22:00 02/21/18 23:00 02/21/18 23:33 Temperature Pulse Rate 80 79 79 Respiratory Rate 26 H 20 20 Blood Pressure 107/52 L 98/53 L Pulse Oximetry 83 L 90 L 02/21/18 23:34 02/22/18 00:00 02/22/18 01:00 Temperature 98.1 F Pulse Rate 79 79 Respiratory Rate 23 27 H Blood Pressure 109/58 L 108/55 L Pulse Oximetry 92 L 83 L 88 L 02/22/18 02:00 02/22/18 03:00 02/22/18 03:58 Temperature Pulse Rate 79 79 79 Respiratory Rate 11 L 12 25 H Blood Pressure 102/51 L 109/54 L Pulse Oximetry 95 94 L 02/22/18 04:00 02/22/18 05:00 02/22/18 06:00 Temperature 97.9 F Pulse Rate 79 79 79 Respiratory Rate 38 H 25 H 22 Blood Pressure 128/62 116/57 L 113/57 L Pulse Oximetry 91 L 88 L 90 L 02/22/18 06:29 02/22/18 07:31 Temperature Pulse Rate 80 Respiratory Rate 28 H Blood Pressure Pulse Oximetry 89 L 82 L Intake & Output 02/21/18 02/22/18 02/22/18 18:59 06:59 18:59 Intake Total 1060 / 1060 320 / 320 Output Total 0 / 0 0 / 0 Balance 1060 / 1060 320 / 320 Weight 93 kg Intake: IV 100 / 100 Maxipime Inj 1,000 MG In NS Inj 100 / 100 100 ML @ 200 mls/hr IV.SIG Q24H PEDRO Rx#:[id number] Oral 960 / 960 320 / 320 Output: Urine 0 / 0 0 / 0 Other: # Voids 0 Date of Last Bowel Movement 02/21/18 02/21/18 # Bowel Movements 1 # Incontinent Bowel Movements 1 Assessment and Plan - Assessment (1) Atrial fibrillation with rapid ventricular response Code(s): I48.91 - Unspecified atrial fibrillation Status: Acute (2) CHF (congestive heart failure) Code(s): I50.9 - Heart failure, unspecified Status: Acute (3) Chronic kidney disease with end stage renal failure on dialysis Code(s): N18.6 - End stage renal disease; Z99.2 - Dependence on renal dialysis Status: Acute (4) Atrial fibrillation with RVR Code(s): I48.91 - Unspecified atrial fibrillation Status: Acute (5) ESRD (end stage renal disease) on dialysis Code(s): N18.6 - End stage renal disease; Z99.2 - Dependence on renal dialysis Status: Acute - Plan 1.) Afib with rvr - s/p ablation and micra placement 02/02/18 due to failure of medical management for rate control, d/w patient, inr therapeutic, hgb stable, rate controlled, inr=2.1 and hgb = 9.3 02/18/18, tracheobronchitis with heme on bronchoscopy 02/17/18 2.) CAD - continue, lipitor, has hemoptyis which is persistent, hold coumadin due to hgb=8.2 02/18/18 and thrombocytopenia, f/u inr and cbc in am, hematology following 3,)Right saphenous vein thrombosis but no dvt, off ac due to anemia and thrombocytopenia, hematology following, scds in place, patient considering hospice, waiting for daughter to arrive to make descision, i d/w nurse @ bedside (2) CHF (congestive heart failure) Qualifiers: Heart failure type: unspecified Heart failure chronicity: unspecified Qualified Code(s): I50.9 - Heart failure, unspecified
[2018-02-22] MEDS: Chlorhexidine 0.12% Oral Kit 15 ML UDC OROPHARYNG SCH (07:58)
[2018-02-22] MEDS: Insulin NovoLIN Regular Correctional Sugar Inj SQ SCH ×3 (07:58→17:43)
[2018-02-22] MEDS: Calcium Acetate 667 MG Capsule PO SCH ×3 (08:01→17:42)
[2018-02-22] MEDS: MethylPREDNISolone Sod Succinate Inj 40 MG/ML Vial IV.PUSH SCH (08:01)
[2018-02-22] MEDS: Senna/Docusate Sodium 8.6/50 MG Tablet PO SCH (08:02)
[2018-02-22] MEDS: Budesonide-Formoterol 160/4.5 MCG 6 GM Inhaler INH SCH (08:03)
[2018-02-22] MEDS: Heparin - SQ 10,000 UNITS/ML Vial SQ SCH (08:04)
[2018-02-22] MEDS: Insulin Detemir Inj 1,000 UNIT/10 ML Vial SQ SCH (08:05)
[2018-02-22] MEDS: Morphine Inj 4 MG/ML Vial IV.PUSH PRN ×2 (08:06→20:08)
--- NOTE | 2018-02-22 08:49 | P.PNPL ---
Subjective Interval history: Patient remains on high flow oxygen 35L with 100% FIO2. Afebrile. Physical Exam Vital signs: Vital Signs 02/21/18 09:00 02/21/18 10:00 02/21/18 11:00 Temperature Pulse Rate 80 80 80 Respiratory Rate 19 11 L 18 Blood Pressure 102/52 L 105/53 L Pulse Oximetry 92 L 92 L 02/21/18 12:00 02/21/18 13:00 02/21/18 14:00 Temperature 99.6 F 98.3 F Pulse Rate 80 80 80 Respiratory Rate 16 24 Blood Pressure 99/54 L 95/54 L Pulse Oximetry 93 L 87 L 02/21/18 15:26 02/21/18 16:00 02/21/18 17:00 Temperature 98.3 F Pulse Rate 80 79 79 Respiratory Rate 27 H 21 21 Blood Pressure 127/58 L 103/50 L Pulse Oximetry 86 L 92 L 02/21/18 18:00 02/21/18 19:00 02/21/18 19:34 Temperature Pulse Rate 79 79 79 Respiratory Rate 23 19 18 Blood Pressure 104/55 L 106/55 L Pulse Oximetry 92 L 89 L 92 L 02/21/18 20:00 02/21/18 21:00 02/21/18 22:00 Temperature 98.8 F Pulse Rate 79 79 80 Respiratory Rate 18 31 H 26 H Blood Pressure 107/54 L 119/58 L 107/52 L Pulse Oximetry 92 L 87 L 83 L 02/21/18 23:00 02/21/18 23:33 02/21/18 23:34 Temperature Pulse Rate 79 79 Respiratory Rate 20 20 Blood Pressure 98/53 L Pulse Oximetry 90 L 92 L 02/22/18 00:00 02/22/18 01:00 02/22/18 02:00 Temperature 98.1 F Pulse Rate 79 79 79 Respiratory Rate 23 27 H 11 L Blood Pressure 109/58 L 108/55 L 102/51 L Pulse Oximetry 83 L 88 L 95 02/22/18 03:00 02/22/18 03:58 02/22/18 04:00 Temperature 97.9 F Pulse Rate 79 79 79 Respiratory Rate 12 25 H 38 H Blood Pressure 109/54 L 128/62 Pulse Oximetry 94 L 91 L 02/22/18 05:00 02/22/18 06:00 02/22/18 06:29 Temperature Pulse Rate 79 79 Respiratory Rate 25 H 22 Blood Pressure 116/57 L 113/57 L Pulse Oximetry 88 L 90 L 89 L 02/22/18 07:31 Temperature Pulse Rate 80 Respiratory Rate 28 H Blood Pressure Pulse Oximetry 82 L Intake & Output 02/21/18 02/22/18 02/22/18 18:59 06:59 18:59 Intake Total 1060 / 1060 320 / 320 Output Total 0 / 0 0 / 0 Balance 1060 / 1060 320 / 320 Weight 93 kg Intake: IV 100 / 100 Maxipime Inj 1,000 MG In NS Inj 100 / 100 100 ML @ 200 mls/hr IV.SIG Q24H PEDRO Rx#:[id number] Oral 960 / 960 320 / 320 Output: Urine 0 / 0 0 / 0 Other: # Voids 0 Date of Last Bowel Movement 02/21/18 02/21/18 # Bowel Movements 1 # Incontinent Bowel Movements 1 - Constitutional mild distress - Routine HEENT Exam Head: Present: normocephalic, atraumatic Eye: Present: EOMI, PERRL, normal accommodation, conjunctivae pink ENT: Present: mucous membranes moist - Routine Neck Exam Present: supple, full ROM, trachea midline - Routine Respiratory Exam Present: crackles - Routine Cardiovascular Exam Present: RRR, S1, S2 - Routine Abdominal Exam Present: soft, normoactive bowel sounds - Routine Extremities Exam Present: full ROM - Routine Skin Exam Present: intact - Routine Neurological Exam Present: alert, oriented X3, CN II-XII intact Assessment and Plan - Plan 1. Acute hypoxemic respiratory insufficiency, 2. ESRD on hemodialysis. 3. CHF, diastolic dysfunction. 4. Atrial fibrillation. 5. Hypertension. 6. History of diabetes mellitus type 2. 7. Anemia. 8. Hx tobacco abuse, ? COPD 9 Klebsiella pneumonia 10 Pulmonary HTN Plan Wean down oxygen as tolerated and maintain sats >92%. Bronchodilators( DuoNeb, Symbicort) BiPAP p.r.n. for respiratory distress. Solumederol 30mg IV daily CXR 02/20: Interstitial changes- unchanged s/p bronch with BAL 02/[address] Moore Continue abx (Cefepime) Monitor for signs of infections(fever and WBC) Continue Revatio 30mg PO TID for pulm HTN HD per renal s/p HD yesterday Doppler US LE: No evidence of DVT, occlusive thrombus in the greater saphenous vein on the right side. Off Coumadin due to anemia/thrombocytopenia Hospice service consulted. Continue supportive care Code status: No code DNR
[2018-02-22 08:54] LABS: Lymphocytes 7 % (9-44); Monocytes 3 % (0-8)
[2018-02-22 08:55] LABS: Acanthocytes 1+; Ovalocytes 1+; Platelet Morphology Normal (Normal)
[2018-02-22 08:56] LABS: Burr Cells 1+
--- NOTE | 2018-02-22 10:18 | P.PNONC ---
Subjective Interval history: Afebrile Patient remains with mild hemoptysis Had one episode of vomiting this morning Feeling better after he received sublingual Zofran Denies abdominal pain No other bleeding Objective Vital Signs/Intake & Output: Vital Signs 02/21/18 11:00 02/21/18 12:00 02/21/18 13:00 Temperature 99.6 F 98.3 F Pulse Rate 80 80 80 Respiratory Rate 18 16 24 Blood Pressure 99/54 L 95/54 L Pulse Oximetry 93 L 87 L 02/21/18 14:00 02/21/18 15:26 02/21/18 16:00 Temperature 98.3 F Pulse Rate 80 80 79 Respiratory Rate 27 H 21 Blood Pressure 127/58 L Pulse Oximetry 86 L 02/21/18 17:00 02/21/18 18:00 02/21/18 19:00 Temperature Pulse Rate 79 79 79 Respiratory Rate 21 23 19 Blood Pressure 103/50 L 104/55 L 106/55 L Pulse Oximetry 92 L 92 L 89 L 02/21/18 19:34 02/21/18 20:00 02/21/18 21:00 Temperature 98.8 F Pulse Rate 79 79 79 Respiratory Rate 18 18 31 H Blood Pressure 107/54 L 119/58 L Pulse Oximetry 92 L 92 L 87 L 02/21/18 22:00 02/21/18 23:00 02/21/18 23:33 Temperature Pulse Rate 80 79 79 Respiratory Rate 26 H 20 20 Blood Pressure 107/52 L 98/53 L Pulse Oximetry 83 L 90 L 02/21/18 23:34 02/22/18 00:00 02/22/18 01:00 Temperature 98.1 F Pulse Rate 79 79 Respiratory Rate 23 27 H Blood Pressure 109/58 L 108/55 L Pulse Oximetry 92 L 83 L 88 L 02/22/18 02:00 02/22/18 03:00 02/22/18 03:58 Temperature Pulse Rate 79 79 79 Respiratory Rate 11 L 12 25 H Blood Pressure 102/51 L 109/54 L Pulse Oximetry 95 94 L 02/22/18 04:00 02/22/18 05:00 02/22/18 06:00 Temperature 97.9 F Pulse Rate 79 79 79 Respiratory Rate 38 H 25 H 22 Blood Pressure 128/62 116/57 L 113/57 L Pulse Oximetry 91 L 88 L 90 L 02/22/18 06:29 02/22/18 07:00 02/22/18 07:31 Temperature Pulse Rate 80 80 Respiratory Rate 20 28 H Blood Pressure 117/59 L Pulse Oximetry 89 L 84 L 82 L 02/22/18 08:00 02/22/18 09:00 02/22/18 10:00 Temperature 98.8 F Pulse Rate 80 80 80 Respiratory Rate 29 H 23 18 Blood Pressure 103/52 L 100/52 L 107/53 L Pulse Oximetry 74 L 79 L 87 L Intake & Output 02/21/18 02/22/18 02/22/18 18:59 06:59 18:59 Intake Total 1060 / 1060 320 / 320 Output Total 0 / 0 0 / 0 Balance 1060 / 1060 320 / 320 Weight 205 lb 0.478 oz Intake: IV 100 / 100 Maxipime Inj 1,000 MG In NS Inj 100 / 100 100 ML @ 200 mls/hr IV.SIG Q24H EDGAR Rx#:[id number] Oral 960 / 960 320 / 320 Output: Urine 0 / 0 0 / 0 Other: # Voids 0 Date of Last Bowel Movement 02/21/18 02/21/18 02/22/18 # Bowel Movements 1 # Incontinent Bowel Movements 1 Result Diagrams: 02/22/18 05:12 02/22/18 05:12 Laboratory Results: Laboratory Results - last 24 hr 02/21/18 02/21/18 02/21/18 12:20 16:13 20:43 WBC RBC Hgb Hct MCV MCH MCHC RDW Plt Count MPV Prelim Diff (Auto) Neut % (Auto) Lymph % (Auto) [place] % (Auto) Eos % (Auto) Baso % (Auto) Neut # (Auto) Lymph # (Auto) [place] # (Auto) Eos # (Auto) Baso # (Auto) WBC Differential Seg Neuts % (Manual) Band Neuts % (Manual) Lymphocytes % (Manual) Monocytes % (Manual) Abs Neuts (Manual) Differential Comment Platelet Estimate Platelet Morphology Ovalocytes Sims Cells Acanthocytes (Spur) PT INR Sodium Potassium Chloride Carbon Dioxide Anion Gap BUN Creatinine Estimated GFR POC Glucose 241 H 231 H 265 H Random Glucose Calcium Total Bilirubin AST ALT Alkaline Phosphatase Total Protein Albumin 02/22/18 02/22/18 02/22/18 05:12 05:12 05:12 WBC 3.9 L RBC 3.14 L Hgb 9.2 L Hct 28.3 L MCV 90.1 MCH 29.4 MCHC 32.6 RDW 20.6 H Plt Count 51 L MPV 10.8 Prelim Diff (Auto) Slide review pending Neut % (Auto) 80.0 H Lymph % (Auto) 13.9 [place] % (Auto) 5.2 Eos % (Auto) 0.5 Baso % (Auto) 0.4 Neut # (Auto) 3.1 Lymph # (Auto) 0.5 L [place] # (Auto) 0.2 Eos # (Auto) 0.0 Baso # (Auto) 0.0 WBC Differential Manual diff final Seg Neuts % (Manual) 73 H Band Neuts % (Manual) 17 H Lymphocytes % (Manual) 7 L Monocytes % (Manual) 3 Abs Neuts (Manual) 3.5 Differential Comment . Platelet Estimate Low L Platelet Morphology Normal Ovalocytes 1+ H Sims Cells 1+ H Acanthocytes (Spur) 1+ H PT 14.1 H INR 1.4 Sodium 137 Potassium 5.0 Chloride 97 L Carbon Dioxide 27.7 Anion Gap 12 BUN 96 H Creatinine 6.89 H Estimated GFR 8 L POC Glucose Random Glucose 86 Calcium 8.4 L Total Bilirubin 1.4 H AST 47 H ALT 61 Alkaline Phosphatase 128 H Total Protein 6.2 L Albumin 2.6 L 02/22/18 07:43 WBC RBC Hgb Hct MCV MCH MCHC RDW Plt Count MPV Prelim Diff (Auto) Neut % (Auto) Lymph % (Auto) [place] % (Auto) Eos % (Auto) Baso % (Auto) Neut # (Auto) Lymph # (Auto) [place] # (Auto) Eos # (Auto) Baso # (Auto) WBC Differential Seg Neuts % (Manual) Band Neuts % (Manual) Lymphocytes % (Manual) Monocytes % (Manual) Abs Neuts (Manual) Differential Comment Platelet Estimate Platelet Morphology Ovalocytes Ruth Cells Acanthocytes (Spur) PT INR Sodium Potassium Chloride Carbon Dioxide Anion Gap BUN Creatinine Estimated GFR POC Glucose 113 H Random Glucose Calcium Total Bilirubin AST ALT Alkaline Phosphatase Total Protein Albumin Culture Results: Microbiology 02/17/18 07:55 Gram Stain - Final Bronchial - Bronchial Bronchial Culture - Final Rare growth normal respiratory marielos Imaging Studies: Impressions Chest X-Ray 02/22/18 00:00 CONCLUSION: Stable appearance of the chest with coarse bilateral interstitial infiltrates and bibasilar atelectasis Medications: Active Medications Generic Name Dose Route Start Last Admin Trade Name Freq PRN Reason Stop Dose Admin Albuterol 1 ampul 02/08/18 13:45 02/19/18 09:45 Duoneb Neb (Prn) NEB 1 ampul Q2HR NEB PRN Administration DYSPNEA Albuterol 1 ampul 02/21/18 12:00 02/22/18 07:30 Duoneb Neb (Edgar) NEB 1 ampul Q4HR NEB EDGAR Administration Atorvastatin Calcium 80 mg 01/16/18 15:00 02/22/18 08:02 Lipitor PO 80 mg DAILY EDGAR Administration Bisacodyl 10 mg 01/15/18 21:01 02/01/18 03:41 Dulcolax Supp RECTAL 10 mg DAILY PRN Administration SEVERE CONSITIPATION Budesonide/Formoterol Fumarate 2 puff 01/16/18 09:00 02/22/18 08:03 Symbicort 160/4.5 Mcg Inh INH 2 puff BID EDGAR Administration Buspirone HCl 5 mg 01/16/18 09:00 02/22/18 08:02 Buspar PO 5 mg DAILY EDGAR Administration Calcium Acetate 667 mg 02/13/18 18:00 02/22/18 08:01 Phoslo PO 667 mg TID EDGAR Administration Chlorhexidine Gluconate 15 ml 02/17/18 20:00 02/22/18 07:58 Peridex 0.12% Oral Kit OROPHARYNG Not Given BID@0800,2000 [facility] Clotrimazole 10 mg 02/12/18 14:00 02/22/18 09:09 Mycelex Corry BUCCAL 02/26/18 13:59 10 mg 5 TIMES A DAY EDGAR Administration Diphenhydramine HCl 25 mg 01/16/18 13:04 02/20/18 13:32 Benadryl PO 25 mg UNSCH PRN Administration SEE LABEL COMMENTS Epoetin Yovanny 10,000 unit 01/19/18 10:00 02/20/18 15:06 Epogen Inj IV.PUSH 10,000 unit MOWEFR EDGAR Administration Gentamicin Sulfate 20 mg 01/16/18 13:04 02/20/18 15:06 Gentamicin Inj OTHER 20 mg WITH DIALYSIS PRN Administration Dwell Gentamycin Lock Heparin Sodium (Porcine) 8,000 units 02/20/18 12:00 02/22/18 08:04 Heparin Inj SQ 8,000 units Q12HR EDGAR Administration Heparin Sodium (Porcine) 8,000 units 01/16/18 13:04 01/31/18 09:28 Heparin Inj OTHER 8,000 units WITH DIALYSIS PRN Administration for machine prime Heparin Sodium (Porcine) 1,000 units 01/16/18 13:04 02/20/18 15:05 Heparin Inj OTHER 1,000 units WITH DIALYSIS PRN Administration Dwell Heparin to Fill Catheter Cefepime HCl 1,000 mg/ Sodium 100 mls @ 200 mls/hr 02/12/18 08:00 02/22/18 07 :57 Chloride IV.SIG 200 mls/hr Q24H EDGAR Administration Propofol 1,000 mg in 100 mls @ 2.82 mls/hr 02/17/18 08:28 02/21/18 23:48 Diprivan 1000 Mg/100 Ml Inj IV.CONT 0 mcg/kg/min TITRATE PRN 0 mls/hr Per Protocol Titration Protocol 5 MCG/KG/MIN Sodium Chloride 1,000 mls @ 0 mls/hr 01/16/18 13:04 02/21/18 23:48 Ns Inj OTHER 0 mls/hr .Q0M PRN Infusion for prime and rinse back As Directed Insulin Detemir 5 unit 02/08/18 09:00 02/22/18 08:05 Levemir Inj SQ 5 unit BID EDGAR Administration Insulin Human Regular 0 units 02/14/18 12:00 02/22/18 07:58 Novolin R Correctional Sugar Inj SQ Not Given ACHS [facility] Protocol Lactulose 30 ml 01/15/18 21:01 02/01/18 09:43 Lactulose Liq PO 30 ml DAILY PRN Administration SEVERE CONSITIPATION Methylprednisolone Sodium Succinate 30 mg 02/17/18 09:30 02/22/18 08:01 Solumedrol Inj IV.PUSH 30 mg DAILY EDGAR Administration Midodrine 5 mg 02/17/18 12:00 02/22/18 06:02 Proamatine PO 5 mg TID@0700,1200,1700 ED[facility] Administration Morphine Sulfate 2 mg 01/15/18 21:03 02/22/18 08:06 Morphine Inj IV.PUSH 2 mg Q4H PRN Administration BREAKTHROUGH PAIN Multivitamins 1 tab 01/16/18 09:00 02/22/18 08:01 Theragran PO 1 tab DAILY EDGAR Administration Nitroglycerin 0.4 mg 01/16/18 13:04 01/23/18 16:49 Nitrostat Sl SL 0.4 mg Q5M PRN Administration CHEST PAIN Ondansetron HCl 4 mg 01/16/18 13:30 02/22/18 09:09 Zofran Odt SL 4 mg Q6H PRN Administration NAUSEA OR VOMITING Oxycodone HCl 5 mg 01/23/18 17:59 02/21/18 16:56 Roxicodone PO 5 mg Q4H PRN Administration pain 3-10 Prochlorperazine Edisylate 5 mg 01/23/18 23:04 01/24/18 04:15 Compazine Inj IV.PUSH 5 mg Q4H PRN Administration NAUSEA OR VOMITING Senna/Docusate Sodium 1 tab 01/16/18 09:00 02/22/18 08:02 Yasmine-Colace PO 1 tab BID EDGAR Administration Sennosides 17.2 mg 01/15/18 21:01 02/21/18 09:27 Senokot PO 17.2 mg Q12H PRN Administration Moderate Constipation Sildenafil Citrate 30 mg 02/10/18 13:00 02/22/18 08:02 Revatio PO 30 mg TID EDGAR Administration Sodium Chloride 2 ml 01/26/18 21:00 02/22/18 08:05 Ns Flush IV.FLUSH 2 ml BID EDGAR Administration Sodium Chloride 2 ml 01/26/18 13:44 02/05/18 08:39 Ns Flush IV.FLUSH 2 ml PRN PRN Administration FLUSH AFTER USING IV ACCESS Sodium Chloride 5 ml 01/16/18 13:04 01/19/18 20:09 Ns Flush IV.FLUSH 5 ml PRN PRN Administration flush each lumen during HD Temazepam 15 mg 01/15/18 21:01 02/19/18 01:46 Restoril PO 15 mg HS PRN Administration INSOMNIA Warfarin Sodium 2 mg 02/11/18 16:00 02/18/18 15:57 Coumadin PO Not Given DAILY@1600 [facility] Objective Remarks: GENERAL: Frail appearing elderly male resting in bed watching TV. SKIN: Warm and dry. No oozing from lines HEAD: Normocephalic. Hard of hearing EYES: No scleral icterus. No injection or drainage. NECK: Supple, trachea midline. No JVD or lymphadenopathy. CARDIOVASCULAR: Paced rhythm. No murmur auscultated. RESPIRATORY: Few scattered wheezes anteriorly. Breathing unlabored at rest. GASTROINTESTINAL: Abdomen soft, non-tender, nondistended. EXTREMITIES: Generalized lower extremity edema MUSCULOSKELETAL: Weakness NEUROLOGICAL: Awake and alert. Follows commands. Assessment/Plan - Plan Mr. Constantino is a pleasant 72-year-old male patient with a history of chest pain, atrial fibrillation with RVR, end-stage renal disease and hypoxia. Hematology was consulted for progressive thrombocytopenia. He was noted to have a decreased platelet count initially on 02/05/2018, status post heart catheterization on 02/02/2018, and then further decline after 02/13/2018. The patient has been on multiple medications including cephalosporins, heparin and vancomycin. To note he has had a bronchoscopy on 02/17 that was negative for malignant cells Plan: 1. Patient tolerating subcu heparin. Platelet count trended up slightly today to 51,000. Continue to monitor for bleeding. 2. Monitor CBC, monitor hemoptysis while on heparin. - Attending Statement The exam, history, and the medical decision-making described in the above note were completed with the assistance of the mid-level provider. I reviewed and agree with the findings presented. I attest that I had a [id number] encounter with the patient on the same day, and personally performed and documented my assessment and findings in the medical record. Feeling better this morning. Still has mild hemoptysis but stable. Denies any significant chest pain or shortness of breath. No significant lower extremity edema. Platelet count trended up slightly. He will continue subcutaneous heparin.
--- NOTE | 2018-02-22 10:58 | P.PNCC ---
Subjective Subjective Remarks/Hospital Course: This is a 72yM with history of ESRD on HD who was recently admitted last month for supraventricular tachycardia. It appears from the records that normal sinus rhythm was restored prior to discharge home. He re-presented to the hospital with atrial fibrillation with rapid ventricular response which has been poorly responsive to esmolol infusion. It is noted that there is still a shortage of diltiazem infusions, so none is available to place the patient on. Dr. Waters with cardiology was consulted, as was Dr. Weinberg. The patient has also had hypotension during this hospital stay with most blood pressure readings between 80-100 systolic. This morning, Bystolic was started and was given together with amiodarone 400mg and metoprolol 25mg po. Approximately 2 hours after this, his blood pressure dropped into the 60s and 70s systolic. I was consulted by Dr. Wilcox to evaluate and manage his hemodynamics in the setting of poorly-controlled atrial fibrillation and hypotension. The patient does complain of light-headedness and a little chest discomfort which is new since his blood pressure has dropped into the 70s. He denies any other complaints and tolerated breakfast this AM. ROS otherwise negative. troponins have been serially negative this admission. I performed bedside critical care echocardiography and compared this to images obtained from last hospital admission on 11/2017. Given the poorly controlled nature of the patient's rate, wall motion and accurate ejection fraction are difficult to assess with accuracy. It does appear that the patient has relatively preserved EF and at most only mildly depressed LVEF. Aortic valve is sclerotic but appears unchanged from prior echo which calculated the valve area at ~2cm. no pericardial effusion. IVC is dilated around 2cm without respiratory variation. heart rate on my evaluation is 121. 8/2: Critical care reconsulted by Dr. Weinberg for worsening respiratory failure. Patient dropped O2 sats to 84% on 6 L nasal cannula. When I evaluated patient he was resting in bed. Placed him on high flow nasal cannula 30 L/min 60% FiO2 with which his O2 sats came up to 90%. 01/30: Remains on high flow nasal cannula. CT chest negative for PE shows consolidation bilateral lower lobes and a loculated effusion on the right. Defer to pulmonary regarding further recommendations. 01/31: Remains on high flow nasal cannula. Being dialyzed currently. On 30 L/ min 60% FiO2. O2 sats 96%. Feels that he is breathing a little better. 02/01, 02/02: On high flow nasal cannula at 20 L/min 50% FiO2. Shortness of breath gradually improving. 02/03: On high flow nasal cannula 20 L/min 60% FiO2. Underwent mitral implantation and AV gilbert ablation yesterday by Dr. Weinberg. Sitting up in bed today. Appears comfortable not in any acute distress. 02/04 Patient 02/04 Patient is awake and alert on high flow oxygen 25L with 70% FIO2> Afebrile. For HD today 02/05 No events overnight. s/p HD yesterday with removal 5L. Afebrile. On 25L with FIO2 down to 50% 02/06 Patient remains on high flow oxygen with 25L 55%FIO2. Afebrile. 02/07 Patient s/p HD yesterday with removal 4.5L. Remains on high flow oxygen 25L with 50% FIO2. Afebrile. 02/08 Patient s/p HD yesterday with removal 3L. On high flow oxygen. Afebrile. 02/09 Patient remains on high flow oxygen 25L with 55% FIO2. Afebrile. For HD today 02/10 Patient is awake and alert. s/p HD yesterday with removal 3L. On 30L with 60% FIO2. Afebrile. 02/11 Patient is n 30L with 55% FIO2. Afebrile. 02/12: Patient remains on high flow nasal cannula. Very tired. Afebrile. Tolerating diet. 02/13: Hemodialysis is remained level. Unable to take fluid off due to hypotension. Remains on high flow nasal cannula 30 L 60% FiO2. Tolerating diet. Weak. 02/14: Afebrile. Remains on high flow nasal cannula at 35 L 60%. Plan for bronchoscopy with Dr. Moore on Friday. 02/15: Afebrile. Disconnect oxygen desaturation. Currently on high flow nasal cannula 40 L at 80%. Will recheck chest x-ray in a.m. Hemoptysis present but not as copious as before previously. 02/16: Worsening O2 requirements over the night, currently on FiO2 of 1 45 L/min high flow nasal cannula. Patient remains awake and conversant, still with some hemoptysis. Bronchoscopy scheduled for Friday. T-max of 98.5. 8/21: No events over the night. Patient remains on high flow nasal cannula at 100%. This morning patient underwent bronchoscopy without biopsy and postprocedure patient remained intubated. Results of bronchoscopy not known at this time. T-max of 99.1, urine output over the last 24 hours 1200 mL's. 02/18: No events over the night. Patient remains intubated and sedated. Significant improvement in O2 requirements, currently on 35% O2 and PEEP of 10. T-max of 98.9, urine output over the last 24 hours 1625 mL's. 02/19: Patient was successfully extubated yesterday afternoon and he did well postextubation. This morning he is on high flow nasal cannula, 25 L/min and 70 % with O2 sat at 100%. Patient seems tired, easily arousable, denies any complaints. Still with some hemoptysis but less. T-max of 99.9. He underwent hemodialysis yesterday. 02/20: Worsening O2 requirements over the night. Patient is currently on high flow nasal cannula at 30 L/min and 100% O2 with O2 sat in the low 90s. T-max of 98.2. Had hemodialysis yesterday. He is awake, looks tired, shortness of breath is unchanged, he says he coughs less. No other complaints. 02/21: No events over the night. Palliative care note reviewed, patient now DNR. O2 requirements remain very high, on high flow nasal cannula at 30 L/min in the 100% O2 with O2 sat in the mid 90s. He is awake, looks tired, still with some hemoptysis but improved per daughter. Denies any other complaints. T -max of 98.8. Started on heparin 8000 units twice daily by hematology for saphenous vein thrombosis. Received 1 unit PRBC yesterday. SUBJECTIVE: 02/22: Currently on high flow nasal cannula at FiO2 100%. Tachypnea. Continues with hemoptysis. Objective Vital Signs / I&O: Vital Signs 02/21/18 11:00 02/21/18 12:00 02/21/18 13:00 Temperature 99.6 F 98.3 F Pulse Rate 80 80 80 Respiratory Rate 18 16 24 Blood Pressure 99/54 L 95/54 L Pulse Oximetry 93 L 87 L 02/21/18 14:00 02/21/18 15:26 02/21/18 16:00 Temperature 98.3 F Pulse Rate 80 80 79 Respiratory Rate 27 H 21 Blood Pressure 127/58 L Pulse Oximetry 86 L 02/21/18 17:00 02/21/18 18:00 02/21/18 19:00 Temperature Pulse Rate 79 79 79 Respiratory Rate 21 23 19 Blood Pressure 103/50 L 104/55 L 106/55 L Pulse Oximetry 92 L 92 L 89 L 02/21/18 19:34 02/21/18 20:00 02/21/18 21:00 Temperature 98.8 F Pulse Rate 79 79 79 Respiratory Rate 18 18 31 H Blood Pressure 107/54 L 119/58 L Pulse Oximetry 92 L 92 L 87 L 02/21/18 22:00 02/21/18 23:00 02/21/18 23:33 Temperature Pulse Rate 80 79 79 Respiratory Rate 26 H 20 20 Blood Pressure 107/52 L 98/53 L Pulse Oximetry 83 L 90 L 02/21/18 23:34 02/22/18 00:00 02/22/18 01:00 Temperature 98.1 F Pulse Rate 79 79 Respiratory Rate 23 27 H Blood Pressure 109/58 L 108/55 L Pulse Oximetry 92 L 83 L 88 L 02/22/18 02:00 02/22/18 03:00 02/22/18 03:58 Temperature Pulse Rate 79 79 79 Respiratory Rate 11 L 12 25 H Blood Pressure 102/51 L 109/54 L Pulse Oximetry 95 94 L 02/22/18 04:00 02/22/18 05:00 02/22/18 06:00 Temperature 97.9 F Pulse Rate 79 79 79 Respiratory Rate 38 H 25 H 22 Blood Pressure 128/62 116/57 L 113/57 L Pulse Oximetry 91 L 88 L 90 L 02/22/18 06:29 02/22/18 07:00 02/22/18 07:31 Temperature Pulse Rate 80 80 Respiratory Rate 20 28 H Blood Pressure 117/59 L Pulse Oximetry 89 L 84 L 82 L 02/22/18 08:00 02/22/18 09:00 02/22/18 10:00 Temperature 98.8 F Pulse Rate 80 80 80 Respiratory Rate 29 H 23 18 Blood Pressure 103/52 L 100/52 L 107/53 L Pulse Oximetry 74 L 79 L 87 L Intake & Output 02/21/18 02/22/18 02/22/18 18:59 06:59 18:59 Intake Total 1060 / 1060 320 / 320 Output Total 0 / 0 0 / 0 Balance 1060 / 1060 320 / 320 Weight 93 kg Intake: IV 100 / 100 Maxipime Inj 1,000 MG In NS Inj 100 / 100 100 ML @ 200 mls/hr IV.SIG Q24H PEDRO Rx#:[id number] Oral 960 / 960 320 / 320 Output: Urine 0 / 0 0 / 0 Other: # Voids 0 Date of Last Bowel Movement 02/21/18 02/21/18 02/22/18 # Bowel Movements 1 # Incontinent Bowel Movements 1 Result Diagrams: 02/22/18 05:12 02/22/18 05:12 Other Results: Microbiology 02/17/18 07:55 Bronchial - Bronchial Gram Stain - Final 02/17/18 07:55 Bronchial - Bronchial Bronchial Culture - Final Rare growth normal respiratory marielos 02/17/18 07:55 Bronchial Washings - Bronchial Acid Fast Bacilli Smear - Final No acid fast bacilli seen 02/17/18 07:55 Bronchial Washings - Bronchial Fungal Smear - Final No fungal elements seen 02/09/18 10:30 Sputum - Expectorated Sputum Gram Stain - Final 02/09/18 10:30 Sputum - Expectorated Sputum Sputum Culture - Final Klebsiella pneumoniae 01/24/18 13:40 Sputum - Expectorated Sputum Gram Stain - Final 01/24/18 13:40 Sputum - Expectorated Sputum Sputum Culture - Final Heavy growth normal respiratory marielos Imaging: Chest X-Ray 01/15/18 18:13 CONCLUSION: Mild interstitial prominence without focal airspace opacities. Slight improvement prior 12/12/2017. Stable cardiomegaly. Chest X-Ray 01/23/18 09:37 CONCLUSION: Mild interval increase in interstitial opacities of concern for pulmonary edema. Abdomen X-Ray 01/23/18 23:05 CONCLUSION: 1. Nonobstructive bowel gas pattern. Chest X-Ray 01/24/18 08:50 CONCLUSION: No appreciable change. Chest X-Ray 01/25/18 09:25 CONCLUSION: No significant change. Chest X-Ray 01/29/18 09:48 CONCLUSION: 1. Stable cardiomegaly and mild positive fluid balance. 2. No significant interval change. Chest CTA 01/30/18 00:00 CONCLUSION: 1. No evidence of pulmonary embolus. 2. Severe bilateral pulmonary parenchymal opacity with predominance at the dependent portions of the lungs. Difficult diagnosis includes pulmonary edema and infection. 3. Elongated lobulated nodular density in the right midlung following the major fissure likely represents loculated pleural effusion. 4. Enlarged pulmonary arteries suggesting pulmonary arterial hypertension. 5. Enlarged heart and small pericardial effusion. 6. Small left than right pleural effusions. 7. Mildly enlarged mediastinal lymph nodes, likely reactive. Chest X-Ray 02/04/18 00:00 CONCLUSION: 1. Patchy infiltrates bilaterally consistent with moderate pulmonary edema versus pneumonia. Clinical correlation is recommended. 2. Cardiomegaly. 3. Tiny bilateral pleural effusions. Chest X-Ray 02/09/18 08:04 CONCLUSION: 1. Cardiomegaly with interstitial edema. 2. Mild airspace disease in the right lung base, presumably atelectasis. Chest X-Ray 02/12/18 00:00 CONCLUSION: Stable chest x-ray with enlarged cardiac silhouette with bilateral diffuse interstitial process. Although nonspecific the changes could be related to pulmonary edema. Chest X-Ray 02/15/18 06:00 CONCLUSION: Cardiomegaly. Diffuse increased interstitial markings likely related to diffuse processes such as edema. Possible mild right pleural effusion. Chest X-Ray 02/16/18 06:00 CONCLUSION: Worsening bilateral pulmonary infiltrates. Radiographic pattern suggesting pulmonary edema. Chest X-Ray 02/17/18 00:00 CONCLUSION: 1. Endotracheal tube in appropriate position with tip measuring 6.5 cm from the cam. 2. Stable severe bilateral interstitial opacity and airspace consolidation. Chest X-Ray 02/18/18 00:00 CONCLUSION: Slight interval improvement in aeration Liver Ultrasound 02/19/18 22:00 CONCLUSION: 1. Spleen is normal in size and appearance. 2. Gallbladder is filled with sludge. Vascular Tech felt based positive sonographic Malloy sign may be present. Suggest correlating with the clinical examination and history. There is any clinical concern for acute cholecystitis consider evaluation with hepatobiliary scintigraphy to evaluate for cystic duct obstruction. 3. Dilated hepatic veins, IVC, and pulsatile blood flow in the main portal vein suggest elevated right heart pressures or tricuspid regurgitation. 4. Right kidney changes consistent with end-stage renal disease including abnormal increased echotexture and multiple cystic lesions. 5. There is trace perihepatic free fluid. Venous Doppler Study 02/19/18 22:00 CONCLUSION: 1. No evidence of DVT. 2. There is occlusive thrombus in the greater saphenous vein on the right side. Chest X-Ray 02/20/18 00:00 CONCLUSION: No significant change following extubation. Chest X-Ray 02/22/18 00:00 CONCLUSION: Stable appearance of the chest with coarse bilateral interstitial infiltrates and bibasilar atelectasis Objective Remarks: GENERAL: 72-year-old male currently on high flow nasal cannula SKIN: No rash, no cyanosis. HEENT: Pupils are equal and reactive, sclerae are anicteric. Neck is supple without rigidity. No neck vein distention. Moist mucous membranes, no thrush. CARDIOVASCULAR: Regular heart sounds. Systolic ejection murmur at apex 3/6. RESPIRATORY: Coarse breath sounds bilateral. No wheezes. Tachypnea GASTROINTESTINAL: Soft, non-tender, not distended. Bowel sounds present. MUSCULOSKELETAL: Warm and well-perfused. Trace bilateral lower extremity peripheral edema. Pulses are present. NEURO: Awake, alert and oriented. Moves all extremities. Assessment and Plan - Assessment and Plan Plan: Active Problems: Acute respiratory failure -remains on high flow nasal cannula at 30 L/min and FiO2 of 1. He was extubated on 02/18 CAD CHF Right greater saphenous vein thrombosis Possible COPD exacerbation -improved Klebsiella pneumonia -remains afebrile Possible pulmonary renal syndrome Atrial Fibrillation with rapid ventricular response -rate better controlled End-stage renal disease requiring hemodialysis Leukocytosis Persistent hypotension secondary to poor cardiac output Thrombocytopenia -improved Normocytic anemia Hyperlipidemia Moderate severe pulmonary hypertension Neuro: Follow neuro status. Pain medications as needed. Continue buspirone 5 mg daily CV: Status post cardiac cath. Being followed by Dr. Weinberg. S/p ablation and micra placement 02/02/18 due to failure of medical management for rate control Echo showed EF 60-65%, mod- severe pulm HTN 60-70mmHg On Lipitor 80mg qhs Pulmo: Continue high flow nasal cannula at 30 L/min. FiO2 at 1. Patient now DNR Bronchodilators Continue methylprednisolone succinate to 30mg daily, tapered on 02/17 On budesonide/formoterol 80/4.5 2 puffs twice daily. On sildenafil 30mg TID for pulm HTN Post bronchoscopy on 02/17 GI/liver: On cardiac, renal and diabetic diet Renal/: Monitor renal function, I/O's, avoid nephrotoxins Renal is following. HD per nephrology ID: s/p Zosyn (01/24- 02/07) 02/09 Sputum: Klebsiella pneumonia. Continue cefepime 1g daily day 9 Monitor for signs of infections ( Fever, WBC) BAL cultures are without growth to date Endocrine: SSI (high scale) for glycemic control, insulin detemir 5u BID Heme: Monitor CBC, Coags-INR 1.4 Received 1 unit PRBC on 02/20 Started on heparin 8000 units subcut twice daily by hematology Receiving heparin with dialysis Followed by Hematology Prophylaxis: Famotidine/SCDs. Level 2 follow-up Patient followed by palliative care, now DNR. Family considering hospice.
--- NOTE | 2018-02-22 12:31 | P.PNNP ---
Subjective Interval history: Patient has increasing shortness of breath and O2 requirement He has congestive heart failure family surrounding him Physical Exam Vital signs: Vital Signs 02/21/18 13:00 02/21/18 14:00 02/21/18 15:26 Temperature 98.3 F Pulse Rate 80 80 80 Respiratory Rate 24 27 H Blood Pressure 95/54 L Pulse Oximetry 87 L 02/21/18 16:00 02/21/18 17:00 02/21/18 18:00 Temperature 98.3 F Pulse Rate 79 79 79 Respiratory Rate 21 21 23 Blood Pressure 127/58 L 103/50 L 104/55 L Pulse Oximetry 86 L 92 L 92 L 02/21/18 19:00 02/21/18 19:34 02/21/18 20:00 Temperature 98.8 F Pulse Rate 79 79 79 Respiratory Rate 19 18 18 Blood Pressure 106/55 L 107/54 L Pulse Oximetry 89 L 92 L 92 L 02/21/18 21:00 02/21/18 22:00 02/21/18 23:00 Temperature Pulse Rate 79 80 79 Respiratory Rate 31 H 26 H 20 Blood Pressure 119/58 L 107/52 L 98/53 L Pulse Oximetry 87 L 83 L 90 L 02/21/18 23:33 02/21/18 23:34 02/22/18 00:00 Temperature 98.1 F Pulse Rate 79 79 Respiratory Rate 20 23 Blood Pressure 109/58 L Pulse Oximetry 92 L 83 L 02/22/18 01:00 02/22/18 02:00 02/22/18 03:00 Temperature Pulse Rate 79 79 79 Respiratory Rate 27 H 11 L 12 Blood Pressure 108/55 L 102/51 L 109/54 L Pulse Oximetry 88 L 95 94 L 02/22/18 03:58 02/22/18 04:00 02/22/18 05:00 Temperature 97.9 F Pulse Rate 79 79 79 Respiratory Rate 25 H 38 H 25 H Blood Pressure 128/62 116/57 L Pulse Oximetry 91 L 88 L 02/22/18 06:00 02/22/18 06:29 02/22/18 07:00 Temperature Pulse Rate 79 80 Respiratory Rate 22 20 Blood Pressure 113/57 L 117/59 L Pulse Oximetry 90 L 89 L 84 L 02/22/18 07:31 02/22/18 08:00 02/22/18 09:00 Temperature 98.8 F Pulse Rate 80 80 80 Respiratory Rate 28 H 29 H 23 Blood Pressure 103/52 L 100/52 L Pulse Oximetry 82 L 74 L 79 L 02/22/18 10:00 Temperature Pulse Rate 80 Respiratory Rate 18 Blood Pressure 107/53 L Pulse Oximetry 87 L Intake & Output 02/21/18 02/22/18 02/22/18 18:59 06:59 18:59 Intake Total 1060 / 1060 320 / 320 Output Total 0 / 0 0 / 0 Balance 1060 / 1060 320 / 320 Weight 93 kg Intake: IV 100 / 100 Maxipime Inj 1,000 MG In NS Inj 100 / 100 100 ML @ 200 mls/hr IV.SIG Q24H PEDRO Rx#:[id number] Oral 960 / 960 320 / 320 Output: Urine 0 / 0 0 / 0 Other: # Voids 0 Date of Last Bowel Movement 02/21/18 02/21/18 02/22/18 # Bowel Movements 1 # Incontinent Bowel Movements 1 - Constitutional severe distress - Routine Respiratory Exam Present: rhonchi, wheezes - Routine Cardiovascular Exam Present: irregular rhythm - Routine Abdominal Exam Present: soft, normoactive bowel sounds - Routine Extremities Exam Present: edema Assessment and Plan - Assessment (1) ESRD (end stage renal disease) on dialysis Code(s): N18.6 - End stage renal disease; Z99.2 - Dependence on renal dialysis Status: Acute (2) CHF (congestive heart failure) Code(s): I50.9 - Heart failure, unspecified Status: Acute Qualifiers: Heart failure type: unspecified Heart failure chronicity: unspecified Qualified Code(s): I50.9 - Heart failure, unspecified (3) Atrial fibrillation with RVR Code(s): I48.91 - Unspecified atrial fibrillation Status: Acute - Plan Patient has dialysis on Friday, Friday and Friday, his condition has changed and as congestive heart failure Spoke to family and daughter and they have talking to hospice assessment: It was decided to do dialysis today so that he can move towards hospice easily According to the dialysis nurse and gave orders for dialysis today.
--- NOTE | 2018-02-22 13:15 | P.DS ---
Date of admission: 01/15/18 20:50 Primary care physician: [facility] Attending physician on discharge: Aidan Melendrez Anticipated date of discharge: 02/22/18 Brief History from admission: This is a 72-year-old male with a PMH of HTN, Hyperlipidemia, CHF (Echo 2017 with EF 55%) and ESRD on HD M/W/F who was sent to the ER from [facility] for c/o chest pain and palpitations. Chest pain substernal, pressure/sore-like , severe, 9/10, non-radiating, worse w/ inspiration. Recent admit 12/08-12/18/17 for episode of SVT and worsening renal function requiring emergent dialysis, s/ p Permacath placement 12/09/17 and LUE AV Fistula 12/17/[address] Hutson, currently on HD M/W/F. Today, pt w/ c/o chest pain and palpitations, found to be in A-fib w/ RVR, HR 140-150's on arrival, s/p Verapamil 2.5mg IV x2 doses w/ minimal improvement. Dr. Waters consulted, recommended Metoprolol 5mg IV x3 and Metoprolol 25mg PO q6h. HR now 100's. CBC unremarkable. INR 1.4. Creatinine 6.7. Troponin negative. BNP 1096. CXR mild interstitial prominence , slightly improved. DS: Diagnosis - Discharge Diagnosis (1) Atrial fibrillation Status: Acute (2) CHF (congestive heart failure) Status: Acute (3) Respiratory failure Status: Acute (4) ESRD (end stage renal disease) on dialysis Status: Chronic DS: Summary Hospital Course: This is a 72yM with history of ESRD on HD who was recently admitted last month for supraventricular tachycardia. It appears from the records that normal sinus rhythm was restored prior to discharge home. He re-presented to the hospital with atrial fibrillation with rapid ventricular response which has been poorly responsive to esmolol infusion. It is noted that there is still a shortage of diltiazem infusions, so none is available to place the patient on. Dr. Waters with cardiology was consulted, as was Dr. Weinberg. The patient has also had hypotension during this hospital stay with most blood pressure readings between 80-100 systolic. This morning, Bystolic was started and was given together with amiodarone 400mg and metoprolol 25mg po. Approximately 2 hours after this, his blood pressure dropped into the 60s and 70s systolic. I was consulted by Dr. Wilcox to evaluate and manage his hemodynamics in the setting of poorly-controlled atrial fibrillation and hypotension. The patient does complain of light-headedness and a little chest discomfort which is new since his blood pressure has dropped into the 70s. He denies any other complaints and tolerated breakfast this AM. ROS otherwise negative. troponins have been serially negative this admission. I performed bedside critical care echocardiography and compared this to images obtained from last hospital admission on 11/2017. Given the poorly controlled nature of the patient's rate, wall motion and accurate ejection fraction are difficult to assess with accuracy. It does appear that the patient has relatively preserved EF and at most only mildly depressed LVEF. Aortic valve is sclerotic but appears unchanged from prior echo which calculated the valve area at ~2cm. no pericardial effusion. IVC is dilated around 2cm without respiratory variation. heart rate on my evaluation is 121. 01/29: Critical care reconsulted by Dr. Weinberg for worsening respiratory failure. Patient dropped O2 sats to 84% on 6 L nasal cannula. When I evaluated patient he was resting in bed. Placed him on high flow nasal cannula 30 L/min 60% FiO2 with which his O2 sats came up to 90%. 01/30: Remains on high flow nasal cannula. CT chest negative for PE shows consolidation bilateral lower lobes and a loculated effusion on the right. Defer to pulmonary regarding further recommendations. 01/31: Remains on high flow nasal cannula. Being dialyzed currently. On 30 L/ min 60% FiO2. O2 sats 96%. Feels that he is breathing a little better. 02/01, 02/02: On high flow nasal cannula at 20 L/min 50% FiO2. Shortness of breath gradually improving. 02/03: On high flow nasal cannula 20 L/min 60% FiO2. Underwent mitral implantation and AV gilbert ablation yesterday by Dr. Weinberg. Sitting up in bed today. Appears comfortable not in any acute distress. 02/04 Patient 02/04 Patient is awake and alert on high flow oxygen 25L with 70% FIO2> Afebrile. For HD today 02/05 No events overnight. s/p HD yesterday with removal 5L. Afebrile. On 25L with FIO2 down to 50% 02/06 Patient remains on high flow oxygen with 25L 55%FIO2. Afebrile. 02/07 Patient s/p HD yesterday with removal 4.5L. Remains on high flow oxygen 25L with 50% FIO2. Afebrile. 02/08 Patient s/p HD yesterday with removal 3L. On high flow oxygen. Afebrile. 02/09 Patient remains on high flow oxygen 25L with 55% FIO2. Afebrile. For HD today 02/10 Patient is awake and alert. s/p HD yesterday with removal 3L. On 30L with 60% FIO2. Afebrile. 02/11 Patient is n 30L with 55% FIO2. Afebrile. 02/12: Patient remains on high flow nasal cannula. Very tired. Afebrile. Tolerating diet. 02/13: Hemodialysis is remained level. Unable to take fluid off due to hypotension. Remains on high flow nasal cannula 30 L 60% FiO2. Tolerating diet. Weak. 02/14: Afebrile. Remains on high flow nasal cannula at 35 L 60%. Plan for bronchoscopy with Dr. Moore on Friday. 02/15: Afebrile. Disconnect oxygen desaturation. Currently on high flow nasal cannula 40 L at 80%. Will recheck chest x-ray in a.m. Hemoptysis present but not as copious as before previously. 02/16: Worsening O2 requirements over the night, currently on FiO2 of 1 45 L/min high flow nasal cannula. Patient remains awake and conversant, still with some hemoptysis. Bronchoscopy scheduled for Friday. T-max of 98.5. 02/17: No events over the night. Patient remains on high flow nasal cannula at 100%. This morning patient underwent bronchoscopy without biopsy and postprocedure patient remained intubated. Results of bronchoscopy not known at this time. T-max of 99.1, urine output over the last 24 hours 1200 mL's. 02/18: No events over the night. Patient remains intubated and sedated. Significant improvement in O2 requirements, currently on 35% O2 and PEEP of 10. T-max of 98.9, urine output over the last 24 hours 1625 mL's. 02/19: Patient was successfully extubated yesterday afternoon and he did well postextubation. This morning he is on high flow nasal cannula, 25 L/min and 70 % with O2 sat at 100%. Patient seems tired, easily arousable, denies any complaints. Still with some hemoptysis but less. T-max of 99.9. He underwent hemodialysis yesterday. 02/20: Worsening O2 requirements over the night. Patient is currently on high flow nasal cannula at 30 L/min and 100% O2 with O2 sat in the low 90s. T-max of 98.2. Had hemodialysis yesterday. He is awake, looks tired, shortness of breath is unchanged, he says he coughs less. No other complaints. 02/21: No events over the night. Palliative care note reviewed, patient now DNR. O2 requirements remain very high, on high flow nasal cannula at 30 L/min in the 100% O2 with O2 sat in the mid 90s. He is awake, looks tired, still with some hemoptysis but improved per daughter. Denies any other complaints. T -max of 98.8. Started on heparin 8000 units twice daily by hematology for saphenous vein thrombosis. Received 1 unit PRBC yesterday. SUBJECTIVE: 02/22: Currently on high flow nasal cannula at FiO2 100%. Tachypnea. Continues with hemoptysis. - Time Spent with Patient Total time spent providing and/or coordinating discharge services: Less than 30 minutes - Quality: AMI Clinical Trial Participant: No - Quality: Stroke Symptom Onset Unknown: No - Quality: VTE Deep Vein Thrombosis/Pulmonary Embolism Present on Admission: No Exam Vital signs: Vital Signs 02/21/18 14:00 02/21/18 15:26 02/21/18 16:00 Temperature 98.3 F Pulse Rate 80 80 79 Respiratory Rate 27 H 21 Blood Pressure 127/58 L Pulse Oximetry 86 L 02/21/18 17:00 02/21/18 18:00 02/21/18 19:00 Temperature Pulse Rate 79 79 79 Respiratory Rate 21 23 19 Blood Pressure 103/50 L 104/55 L 106/55 L Pulse Oximetry 92 L 92 L 89 L 02/21/18 19:34 02/21/18 20:00 02/21/18 21:00 Temperature 98.8 F Pulse Rate 79 79 79 Respiratory Rate 18 18 31 H Blood Pressure 107/54 L 119/58 L Pulse Oximetry 92 L 92 L 87 L 02/21/18 22:00 02/21/18 23:00 02/21/18 23:33 Temperature Pulse Rate 80 79 79 Respiratory Rate 26 H 20 20 Blood Pressure 107/52 L 98/53 L Pulse Oximetry 83 L 90 L 02/21/18 23:34 02/22/18 00:00 02/22/18 01:00 Temperature 98.1 F Pulse Rate 79 79 Respiratory Rate 23 27 H Blood Pressure 109/58 L 108/55 L Pulse Oximetry 92 L 83 L 88 L 02/22/18 02:00 02/22/18 03:00 02/22/18 03:58 Temperature Pulse Rate 79 79 79 Respiratory Rate 11 L 12 25 H Blood Pressure 102/51 L 109/54 L Pulse Oximetry 95 94 L 02/22/18 04:00 02/22/18 05:00 02/22/18 06:00 Temperature 97.9 F Pulse Rate 79 79 79 Respiratory Rate 38 H 25 H 22 Blood Pressure 128/62 116/57 L 113/57 L Pulse Oximetry 91 L 88 L 90 L 02/22/18 06:29 02/22/18 07:00 02/22/18 07:31 Temperature Pulse Rate 80 80 Respiratory Rate 20 28 H Blood Pressure 117/59 L Pulse Oximetry 89 L 84 L 82 L 02/22/18 08:00 02/22/18 09:00 02/22/18 10:00 Temperature 98.8 F Pulse Rate 80 80 80 Respiratory Rate 29 H 23 18 Blood Pressure 103/52 L 100/52 L 107/53 L Pulse Oximetry 74 L 79 L 87 L 02/22/18 12:00 Temperature 98.6 F Pulse Rate 80 Respiratory Rate 13 Blood Pressure Pulse Oximetry Intake & Output 02/21/18 02/22/18 02/22/18 18:59 06:59 18:59 Intake Total 1060 / 1060 320 / 320 Output Total 0 / 0 0 / 0 Balance 1060 / 1060 320 / 320 Weight 93 kg Intake: IV 100 / 100 Maxipime Inj 1,000 MG In NS Inj 100 / 100 100 ML @ 200 mls/hr IV.SIG Q24H PEDRO Rx#:[id number] Oral 960 / 960 320 / 320 Output: Urine 0 / 0 0 / 0 Other: # Voids 0 Date of Last Bowel Movement 02/21/18 02/21/18 02/22/18 # Bowel Movements 1 # Incontinent Bowel Movements 1 - Constitutional no acute distress - Routine HEENT Exam Head: Present: normocephalic, atraumatic - Routine Neck Exam Present: supple, full ROM. Absent: carotid bruit - Routine Chest/Breast/Axilla Exam Chest wall: Absent: tenderness Breast: Absent: tenderness Axillae: Absent: lymphadenopathy - Routine Respiratory Exam Present: accessory muscle use, decreased breath sounds, rhonchi - Routine Cardiovascular Exam Present: RRR, S1, S2 - Routine Abdominal Exam Present: soft, normoactive bowel sounds - Routine Extremities Exam Absent: cyanosis, clubbing, edema - Routine Skin Exam Present: intact - Routine Neurological Exam Present: alert, oriented X3, CN II-XII intact. Absent: sensory deficit, motor deficit Results Procedures completed during hospitalization: Bronchoscopy Placement of hemodialysis catheter Completed studies during hospitalization: Pending at discharge 02/17/18 07:55 Cytology [PTH] Routine Labs on day of discharge: Labs from last 24 hours 02/22/18 02/22/18 02/22/18 10:55 07:43 05:12 WBC RBC Hgb Hct MCV MCH MCHC RDW Plt Count MPV Prelim Diff (Auto) Neut % (Auto) Lymph % (Auto) Knott % (Auto) Eos % (Auto) Baso % (Auto) Neut # (Auto) Lymph # (Auto) Knott # (Auto) Eos # (Auto) Baso # (Auto) WBC Differential Seg Neuts % (Manual) Band Neuts % (Manual) Lymphocytes % (Manual) Monocytes % (Manual) Abs Neuts (Manual) Differential Comment Platelet Estimate Platelet Morphology Ovalocytes [place] Cells Acanthocytes (Spur) PT INR Sodium 137 Potassium 5.0 Chloride 97 L Carbon Dioxide 27.7 Anion Gap 12 BUN 96 H Creatinine 6.89 H Estimated GFR 8 L POC Glucose 138 H 113 H Random Glucose 86 Calcium 8.4 L Total Bilirubin 1.4 H AST 47 H ALT 61 Alkaline Phosphatase 128 H Total Protein 6.2 L Albumin 2.6 L 02/22/18 02/22/18 02/21/18 05:12 05:12 20:43 WBC 3.9 L RBC 3.14 L Hgb 9.2 L Hct 28.3 L MCV 90.1 MCH 29.4 MCHC 32.6 RDW 20.6 H Plt Count 51 L MPV 10.8 Prelim Diff (Auto) Slide review pending Neut % (Auto) 80.0 H Lymph % (Auto) 13.9 Knott % (Auto) 5.2 Eos % (Auto) 0.5 Baso % (Auto) 0.4 Neut # (Auto) 3.1 Lymph # (Auto) 0.5 L Knott # (Auto) 0.2 Eos # (Auto) 0.0 Baso # (Auto) 0.0 WBC Differential Manual diff final Seg Neuts % (Manual) 73 H Band Neuts % (Manual) 17 H Lymphocytes % (Manual) 7 L Monocytes % (Manual) 3 Abs Neuts (Manual) 3.5 Differential Comment . Platelet Estimate Low L Platelet Morphology Normal Ovalocytes 1+ H Ruth Cells 1+ H Acanthocytes (Spur) 1+ H PT 14.1 H INR 1.4 Sodium Potassium Chloride Carbon Dioxide Anion Gap BUN Creatinine Estimated GFR POC Glucose 265 H Random Glucose Calcium Total Bilirubin AST ALT Alkaline Phosphatase Total Protein Albumin 02/21/18 16:13 WBC RBC Hgb Hct MCV MCH MCHC RDW Plt Count MPV Prelim Diff (Auto) Neut % (Auto) Lymph % (Auto) Knott % (Auto) Eos % (Auto) Baso % (Auto) Neut # (Auto) Lymph # (Auto) Knott # (Auto) Eos # (Auto) Baso # (Auto) WBC Differential Seg Neuts % (Manual) Band Neuts % (Manual) Lymphocytes % (Manual) Monocytes % (Manual) Abs Neuts (Manual) Differential Comment Platelet Estimate Platelet Morphology Ovalocytes [place] Cells Acanthocytes (Spur) PT INR Sodium Potassium Chloride Carbon Dioxide Anion Gap BUN Creatinine Estimated GFR POC Glucose 231 H Random Glucose Calcium Total Bilirubin AST ALT Alkaline Phosphatase Total Protein Albumin - Impressions ITS Impressions Abdomen X-Ray 01/23/18 23:05 CONCLUSION: 1. Nonobstructive bowel gas pattern. Chest CTA 01/30/18 00:00 CONCLUSION: 1. No evidence of pulmonary embolus. 2. Severe bilateral pulmonary parenchymal opacity with predominance at the dependent portions of the lungs. Difficult diagnosis includes pulmonary edema and infection. 3. Elongated lobulated nodular density in the right midlung following the major fissure likely represents loculated pleural effusion. 4. Enlarged pulmonary arteries suggesting pulmonary arterial hypertension. 5. Enlarged heart and small pericardial effusion. 6. Small left than right pleural effusions. 7. Mildly enlarged mediastinal lymph nodes, likely reactive. Liver Ultrasound 02/19/18 22:00 CONCLUSION: 1. Spleen is normal in size and appearance. 2. Gallbladder is filled with sludge. Tariff Clerk felt based positive sonographic Malloy sign may be present. Suggest correlating with the clinical examination and history. There is any clinical concern for acute cholecystitis consider evaluation with hepatobiliary scintigraphy to evaluate for cystic duct obstruction. 3. Dilated hepatic veins, IVC, and pulsatile blood flow in the main portal vein suggest elevated right heart pressures or tricuspid regurgitation. 4. Right kidney changes consistent with end-stage renal disease including abnormal increased echotexture and multiple cystic lesions. 5. There is trace perihepatic free fluid. Venous Doppler Study 02/19/18 22:00 CONCLUSION: 1. No evidence of DVT. 2. There is occlusive thrombus in the greater saphenous vein on the right side. Chest X-Ray 02/22/18 00:00 CONCLUSION: Stable appearance of the chest with coarse bilateral interstitial infiltrates and bibasilar atelectasis Discharge Plan - Discharge Disposition Patient Disposition: [facility] Hosp[facility] Facility - Discharge Condition Condition: Stable - Discharge Order Discharge Orders: Discharge Order (Routine); Ordered 02/22/18 Ordered By: Aidan Melendrez - Discharge Details Anticipated Discharge Date: 02/22/18 - Physicians Team Primary Care Provider: [facility] Attending Provider: Sameer Guzman Other Providers: Leroy Waters MD ; Eduardo Salvador MD ; Helga Weinberg MD ; Bobbi Nuñez,Agency ; Vijay Shepherd,Agency ; Ernestina Mackay MD ; Mellissa Collins MD ; [facility],Agency ; Natalia Chapa MD
[2018-02-22] MEDS: Sod Chloride 0.9% Inj 1,000 ML OTHER PRN (15:53)
[2018-02-22 20:33] VITALS: BP 103/55; RESP 22; TEMP 98.1; O2SAT 86
== END 2018-02-22 20:30 | disposition hospice, inpatient (51) ==
LOC: NEPC 17:39 → NEDA 20:50 → NEDH 01-16 01:52 → HIMC 01-16 15:30
PROVIDERS: ADMIT Internal Medicine Critical Care Medicine; ATTEND Internal Medicine Critical Care Medicine